=== PATIENT | male | born 1970 | race Native Hawaiian/Other Pacific Islander ===

== ENCOUNTER 2017-10-24 21:26 | Emergency (ER) | payer MEDICAID, OTHER ==
[~2017-10-24] VITALS: Ht 185.4 cm; Wt 93.4 kg
[2017-10-24] MEDS ORDERED: RT-ALBUTEROL/IPRATROPIUM 3 ML (DUONEB) VIAL ONE ×2 (21:29→21:39)
[2017-10-24] MEDS ORDERED: DEXAMETHASONE 4 MG/ML SDV (DECADRON) ONE (21:29)
[2017-10-24] MEDS ORDERED: methylPREDNISolone 125 MG (Solu-MEDROL) VIAL IV STA (21:41)
[2017-10-24] MEDS ORDERED: FUROSEMIDE 40 MG/4 ML INJ (LASIX) IVP ONE (21:45)
[2017-10-24] MEDS ORDERED: DEXAMETHASONE 4 MG/ML SDV (DECADRON) IH ONE (21:45)
[2017-10-24] MEDS ORDERED: NITROGLYCERIN 2% OINT 1 GM UNIT DOSE PACKET TOP ONE (21:45)
[2017-10-24] MEDS ORDERED: RT-ALBUTEROL/IPRATROPIUM 3 ML (DUONEB) VIAL INH ONE (21:45)
[2017-10-24 21:52] LABS: BASOPHILS # (AUTO) 0.1 10^3/uL (0.0-0.1); BASOPHILS % (AUTO) 1 % (0-10); EOSINOPHILS # (AUTO) 0.6 10^3/uL (0.0-0.3); EOSINOPHILS % (AUTO) 6 % (0-10); HEMATOCRIT 36 % (40-54); HEMOGLOBIN 12.2 G/DL (13.3-17.7); LYMPHOCYTES # (AUTO) 1.1 X 10^3 (1.0-4.0); LYMPHOCYTES % (AUTO) 11 % (12-44); MEAN CORPUSCULAR HEMOGLOBIN 30 PG (25-34); MEAN CORPUSCULAR HGB CONC 34 G/DL (32-36); MEAN CORPUSCULAR VOLUME 90 FL (80-99); MONOCYTES # (AUTO) 2.3 X 10^3 (0.0-1.0); MONOCYTES % (AUTO) 23 % (0-12); NEUTROPHILS % (AUTO) 60 % (42-75); PLATELET COUNT 166 10^3/uL (130-400); RED BLOOD COUNT 4.03 10^6/uL (4.35-5.85); RED CELL DISTRIBUTION WIDTH 17.7 % (10.0-14.5); WHITE BLOOD COUNT 9.9 10^3/uL (4.3-11.0)
[2017-10-24 21:55] LABS: INR 0.9 (0.8-1.4); PROTHROMBIN TIME PATIENT 11.9 SEC (12.2-14.7)
[2017-10-24 22:09] LABS: ALANINE AMINOTRANSFERASE 117 U/L (0-55); ALKALINE PHOSPHATASE 132 U/L (40-136); BILIRUBIN,TOTAL 1.4 MG/DL (0.1-1.0); BUN/CREATININE RATIO 14; CALCIUM 8.4 MG/DL (8.5-10.1); CARBON DIOXIDE 17 MMOL/L (21-32); CHLORIDE 105 MMOL/L (98-107); CREATINE KINASE 33 U/L (30-200); CREATININE SERUM 1.11 MG/DL (0.60-1.30); GFR ESTIMATED > 60; GLUCOSE 107 MG/DL (70-105); MAGNESIUM 1.9 MG/DL (1.8-2.4); POTASSIUM 4.7 MMOL/L (3.6-5.0); SODIUM 135 MMOL/L (135-145); TOTAL PROTEIN 6.6 GM/DL (6.4-8.2)
[2017-10-24 22:11] LABS: ANISOCYTOSIS SLIGHT; BAND NEUTROPHILS 0 %; BASOPHILS % (MANUAL) 0 %; EOSINOPHILS % (MANUAL) 2 %; LYMPHOCYTES % (MANUAL) 15 %; MONOCYTES % (MANUAL) 7 %; NEUTROPHILS % (MANUAL) 76 %
[2017-10-24] MEDS ORDERED: KETOROLAC 30 MG/ML VIAL ONE (22:14)
[2017-10-24 22:20] LABS: ABG BASE EXCESS -2.4 MMOL/L (-2.5-2.5); ABG OXYGEN SATURATION 98 % (94-100); ABG PCO2 32 MMHG (35-45); ABG PH 7.44 (7.37-7.43); ABG PO2 96 MMHG (79-93); ABG TCO2 21.9 MMOL/L (21.0-31.0); ALLENS TEST YES-POS; INSPIRED O2 6L
[2017-10-24 22:21] LABS: PATIENT TEMP 99.9; VENTILATOR NO
[2017-10-24 22:23] LABS: CREATINE KINASE MB 0.8 NG/ML (<6.6); TSH (THYROID ANALYZER) 5.91 UIU/ML (0.35-4.94)
[2017-10-24 23:03] LABS: FREE T4 (FREE THYROXINE) 0.83 NG/DL (0.70-1.48)
[2017-10-24] MEDS ORDERED: NS (IVPB) 50 ML ONE (23:28)
[2017-10-24] MEDS ORDERED: CEFEPIME HCL 2 GM (MAXIPIME) VIAL ONE (23:29)
[2017-10-24] MEDS ORDERED: CEFEPIME INJECTION 2,000 MG in NS (IVPB) 50 ML IV ONE (23:30)
[2017-10-25 00:02] LABS: BILIRUBIN,URINE NEGATIVE (NEGATIVE); CLARITY,URINE CLEAR; COLOR,URINE YELLOW; GLUCOSE, URINE (UA) NEGATIVE (NEGATIVE); KETONES,URINE NEGATIVE (NEGATIVE); LEUKOCYTE ESTERASE ,URINE NEGATIVE (NEGATIVE); NITRITE,URINE NEGATIVE (NEGATIVE); PH,URINE 7 (5-9); PROTEIN,URINE NEGATIVE (NEGATIVE); UROBILINOGEN,URINE 1 MG/DL (NORMAL)
[2017-10-25 00:13] LABS: BACTERIA,URINE NEGATIVE /HPF; SQUAMOUS EPITHELIAL CELL,UR 0-2 /HPF
[2017-10-25 00:14] LABS: AMPHETAMINE SCREEN, URINE NEGATIVE (NEGATIVE); BARBITURATE SCREEN URINE NEGATIVE (NEGATIVE); BENZODIAZEPINES SCREEN URINE NEGATIVE (NEGATIVE); CANNABINOID SCREEN, URINE NEGATIVE (NEGATIVE); COCAINE SCREEN URINE NEGATIVE (NEGATIVE); METHADONE STAT NEGATIVE (NEGATIVE); METHAMPHETAMINE SCREEN URINE S NEGATIVE (NEGATIVE); OPIATE SCREEN URINE NEGATIVE (NEGATIVE); OXYCODONE STAT POSITIVE (NEGATIVE); PROPOXYPHENE STAT NEGATIVE (NEGATIVE); TRICYCLIC ANTIDEPRESSANTS SCRE NEGATIVE (NEGATIVE)
[2017-10-25] MEDS ORDERED: VANCOMYCIN INJECTION 1,000 MG in NS (IVPB) 250 ML IV ONE (00:30)
[2017-10-25] MEDS ORDERED: RT-ALBUTEROL/IPRATROPIUM 3 ML (DUONEB) VIAL INH ONE ×2 (04:30→08:45)
[2017-10-25] MEDS ORDERED: methylPREDNISolone 125 MG (Solu-MEDROL) VIAL IVP ONE (04:45)
--- NOTE | 2017-10-25 05:30 | Diagnostic Imaging Report ---
INDICATION: CHF. Shortness of air. COMPARISON: 10/16/2017 FINDINGS: Single frontal radiographic view of the chest was obtained. Lungs show low inspiratory volumes with bibasilar patchy airspace disease. There is no large effusion or pneumothorax. Cardiac silhouette is moderately enlarged. This may be accentuated portable technique and shallow inspirations. Pulmonary vasculature is within normal limits. Bony structures show no acute abnormalities. IMPRESSION: 1. Low lung volumes with probable bibasilar atelectasis. 2. Cardiomegaly. Dictated by: Dictated on workstation # [id number]
[2017-10-25] MEDS ORDERED: FUROSEMIDE 40 MG/4 ML INJ (LASIX) IVP ONE (05:45)
[2017-10-25] MEDS ORDERED: amLODIPine 10 MG (NORVASC) TAB PO ONE (08:45)
[2017-10-25] MEDS ORDERED: lisINopril 5 MG (PRINIVIL) TABLET PO ONE (08:45)
[2017-10-25] MEDS ORDERED: CLOPIDOGREL 75 MG (PLAVIX) TABLET PO ONE (08:45)
[2017-10-25] MEDS ORDERED: CARVEDILOL 6.25 MG (COREG) TAB PO ONE (08:45)
[2017-10-25] MEDS ORDERED: amLODIPine 5 MG (NORVASC) TAB ONE (08:48)
[2017-10-25 09:10] VITALS: BP 142/105
== END 2017-10-25 09:10 | disposition short-term general hospital (02) ==
LOC: ER 21:28
DX: R06.02 Shortness of breath (principal); F17.210 Nicotine dependence, cigarettes, uncomplicated
CPT/HCPCS: 36415; 51702; 71045; 80053; 80306; 80320; 81000; 82550; 82553; 82805; 83605; 83735; 83880; 84439; 84443; 84484; 85007; 85027; 85610; 85730; 87040; 87804; 93005; 93041; 94640; 96365; 96367; 96375; 96376

== ENCOUNTER 2017-10-30 20:48 | Emergency (ER) | payer MEDICAID ==
[~2017-10-30] VITALS: Ht 185.4 cm; Wt 93.4 kg
--- OUTSIDE RECORDS SUMMARY | 2017-10-30 21:14 | XMS REPORT | Continuity of Care Document ---
Author Author [facility] (formerly [facility])[3] Organization [facility] (formerly [facility])[3] Address Unknown Phone Unavailable Allergies Active Description Code Type Severity Reaction Onset Reported/Identified Relationship to Patient Clinical Status Yes aspirin aspirin Drug Allergy Mild VOMITING 12/29/2011 Yes aspirin Drug Allergy N/A Adverse Reaction 01/20/2014 Yes aspirin NKMA N/A N /A 04/24/2015 Yes penicillin NKMA N/A [id number] 04/24/2015 Yes PLASTIC PLASTIC Drug Allergy Mild 04/27/2016 Yes Chantix NKMA N/A N /A 12/14/2016 Yes Truvada NKMA N/A N /A 12/14/2016 Yes ANTIVIRAL ANTIVIRAL Drug Allergy Unknown UNKNOWN 10/12/2017 Yes aspirin NKMA N/A R11.1 10/18/2017 Medications Medication Packaging Start Date Stop Date Route Dosage Sig albuterol(albuterol) 06/25/2015 11/10/2016 0 Refill( s) clindamycin(clindamycin) 201411/10/2016 0 Refill(s) sulfamethoxazole-trimethoprim(Bactrim) tabs 06/25/2015 11/10/2016 Oral tabs, Oral, BID, 0 Refill(s) tenofovir(Viread) 06/25/2015 11/10/2016 Oral mg mg, Oral, Daily, 0 Refill(s) dapsone(dapsone) 06/25/2015 11/10/2016 Oral Oral, Daily, 0 Refill(s) dolutegravir/abacavir/lamiVUDine(Triumeq) tabs 06/25/2015 11/10/2016 Oral tabs, Oral, Daily, 0 Refill(s) oxycodone-acetaminophen(Percocet 10/325 oral tablet) 1 tabs 06/25/2015 11/10/2016 Oral 1 tabs, Oral, q6hr, PRN: as needed for pain, 10 tabs, 0 Refill(s) methylPREDNISolone(Solu-MEDROL) 2 mL 06/25/2015 06/25/2015 IV Push 125 mg 125 mg=2 mL, IV Push, Once predniSONE(predniSONE) 3 tabs 06/2506/25/2015 Oral 60 mg 60 mg=3 tabs, Oral, Once albuterol(albuterol 5 mg/mL (0.5%) inhalation solution) 1.5 mL 06/25/2015 06/25/2015 NEB 7.5 mg 7.5 mg=1.5 mL, NEB, Once predniSONE(predniSONE 20 mg oral tablet) 2 tabs 06/25/2015 06/28/2015 Oral 40 mg 40 mg=2 tabs, Oral, Daily, for 3 days, 6 tabs, 0 Refill(s) predniSONE(predniSONE 20 mg oral tablet) 3 tabs 03/14/2016 03/17/2016 Oral 60 mg 60 mg=3 tabs, Oral, Daily, for 3 days, then 2 tabs daily x3 days; then 1 tab daily x3 days; then 1/2 tab daily x 2 days Dispense # 19, 19 tabs, 0 Refill(s) ondansetron(Zofran) 2 mL 201611/10/2016 IV Push 4 mg 4 mg=2 mL, IV Push, q30min, PRN: Nausea or Vomiting albuterol(Ventolin HFA 90 mcg/inh inhalation aerosol) 2 puffs 11/10/2016 11/27/2016 Inhalation 2 puffs, Inhalation, QID, 0 Refill(s) cloNIDine(Catapres) 2 tabs 201611/10/2016 Oral 0.2 mg 0.2 mg=2 tabs, Oral, Once predniSONE(predniSONE 10 mg oral tablet) 8 tabs 11/10/2016 Oral 80 mg 80 mg=8 tabs, Oral, Daily, Taper 80mg x1 day, 70mgx1 day, 60 mg x 1 day, 50mg x 1 day, 40 mg x 1 day, 30mg x 1 day, 20 mg x 1 day, 10mg x 1 day- started 11/03, 0 Refill(s) azithromycin(azithromycin 250 mg oral tablet) 1 tabs 11/10/2016 Oral 250 mg 250 mg=1 tabs, Oral, Daily, x 4 days, started 11/04/16, 0 Refill(s) albuterol(albuterol 2.5 mg/3 mL (0.083%) inhalation solution) 3 mL 11/10/2016 11/27/2016 NEB 2.5 mg 2.5 mg=3 mL, NEB, TID, 0 Refill(s) lisinopril(lisinopril 10 mg oral tablet) 1 tabs 11/10/2016 Oral 10 mg 10 mg=1 tabs, Oral, Daily, 0 Refill(s) fluconazole(Diflucan 100 mg oral tablet) 1 tabs 11/10/2016 Oral 100 mg 100 mg=1 tabs, Oral, Daily, 0 Refill(s) fluticasone-vilanterol(Breo Ellipta 100 mcg-25 mcg/inh inhalation powder) 1 puffs 11/10/2016 Inhalation 1 puffs, Inhalation, Daily, 30 Each, 0 Refill(s) ondansetron(Zofran) 2 mL 2016 IV Push 4 mg 4 mg =2 mL, IV Push, q6hr, PRN: Nausea Al hydroxide/Mg hydroxide/simethicone(Maalox Advanced Maximum Strength oral suspension) 30 mL 11/10/2016 Oral 30 mL, Oral, q6hr, PRN: GERD/Heartburn polyethylene glycol 3350(MiraLax) 1 packets 11/10/2016 Oral 17 g 17 g=1 packets, Oral, Daily, PRN: Constipation calcium carbonate(Tums) 1 tabs Oral 500 mg 500 mg=1 tabs, Oral, q4hr, PRN: GERD/Heartburn acetaminophen(acetaminophen) 2 tabs 11/10/2016 Oral 650 mg 650 mg=2 tabs, Oral, q4hr, PRN: Other (See Comment) docusate-senna(Senokot S 50 mg-8.6 mg oral tablet) 1 tabs 11/10/2016 Oral 1 tabs, Oral, Daily, PRN: Constipation aspirin(aspirin) 4 tabs 11/10/2016 11/10/2016 Oral 324 mg 324 mg=4 tabs, Oral, Once predniSONE(predniSONE) 2 tabs 11/1011/10/2016 Oral 40 mg 40 mg=2 tabs, Oral, Daily atorvastatin(atorvastatin) 1 tabs 11/10/2016 Oral 20 mg 20 mg=1 tabs, Oral, Daily lisinopril(lisinopril) 1 tabs 11/1011/14/2016 Oral 20 mg 20 mg=1 tabs, Oral, Daily azithromycin(azithromycin) 1 tabs 11/10/2016 11/15/2016 Oral 250 mg 250 mg=1 tabs, Oral, Daily carvedilol(Coreg) 1 tabs 201611/10/2016 Oral 12.5 mg 12.5 mg=1 tabs, Oral, BID gabapentin(gabapentin) 2 caps 11/10 Oral 200 mg 200 mg=2 caps, Oral, TID acetaminophen(Tylenol range dose) 2 tabs 11/10/2016 11/10/2016 Oral 650 mg 650 mg=2 tabs, Oral, q4hr, PRN: Pain Mild (1-3) labetalol(labetalol) 2 mL 201611/14/2016 IV Push 10 mg 10 mg=2 mL, IV Push, q1hr, PRN: Hypertension/High Blood Pressure aspirin(aspirin) 1 tabs 11/10/2016 11/11/2016 Oral 81 mg Canceled LORazepam(Ativan) 0.5 mL 201611/13/2016 IV Push 1 mg 1 mg=0.5 mL, IV Push, q2hr, PRN: Anxiety fluticasone-salmeterol(Advair HFA 115 mcg-21 mcg/inh inhalation aerosol) 2 puffs 11/10/20162016 Inhalation 2 puffs, Inhalation, BID ipratropium-albuterol(DuoNeb 0.5 mg-2.5 mg/3 mL inhalation solution ) 3 mL 11/10/2016 11/10/2016 NEB 3 mL, NEB, q2hr (scheduled), PRN: Bronchospasms arformoterol(Brovana) 2 mL 2016 NEB 15 mcg 15 mcg =2 mL, NEB, BID budesonide(budesonide 0.5 mg/2 mL inhalation suspension) 2 mL 11/10/2016 NEB 0.5 mg 0.5 mg=2 mL, NEB, BID ipratropium-albuterol(DuoNeb 0.5 mg-2.5 mg/3 mL inhalation solution ) 3 mL 11/10/2016 NEB 3 mL, NEB, q2hr (scheduled), PRN: Bronchospasms hydrALAZINE(hydrALAZINE) 0.5 mL 09/2016 IV Push 10 mg 10 mg=0.5 mL, IV Push, q4hr, PRN: Hypertension/High Blood Pressure carvedilol(Coreg) 1 tabs 2016 Oral 25 mg Suspended nicotine(nicotine 7 mg/24 hr transdermal film, extended release) 1 patches 11/11/2016 TransDermal 1 patches, TransDermal, Daily lisinopril(lisinopril) 1 tabs 11/1111/11/2016 Oral 5 mg 5 mg=1 tabs, Oral, Once carvedilol(Coreg) 1 tabs 201611/11/2016 Oral 12.5 mg 12.5 mg=1 tabs, Oral, Once hydrALAZINE(hydrALAZINE) 1 tabs 09/2016 Oral 50 mg Suspended sertraline(Zoloft) 1 tabs 2016 Oral 50 mg 50 mg= 1 tabs, Oral, qAM QUEtiapine(SEROquel) 1 tabs 2016 Oral 25 mg 25 mg= 1 tabs, Oral, BID, PRN: Agitation lisinopril(lisinopril) 2 tabs 11/1411/15/2016 Oral 40 mg 40 mg=2 tabs, Oral, Daily lisinopril(lisinopril) 1 tabs 11/1411/14/2016 Oral 20 mg 20 mg=1 tabs, Oral, Once losartan(losartan) 2 tabs 201611/16/2016 Oral 100 mg 100 mg=2 tabs, Oral, Daily Sodium Chloride 0.9%(Sodium Chloride 0.9% Bolus) 500 mL 11/16/2016 11/16/2016 Bolus IV 500 mL, Bolus IV, Once lisinopril(lisinopril) 1 tabs 11/16 Oral 20 mg 20 mg =1 tabs, Oral, Daily lisinopril(lisinopril 20 mg oral tablet) 1 tabs 11/17/2016 11/18/2016 Oral 20 mg 20 mg=1 tabs, Oral, Daily, for 30 days, 30 tabs, 0 Refill(s) hydrALAZINE(hydrALAZINE 50 mg oral tablet) 1 tabs 11/17/2016 11/18/2016 Oral 50 mg 50 mg=1 tabs, Oral, TID, for 30 days, 90 tabs, 0 Refill(s) atorvastatin(atorvastatin 20 mg oral tablet) 1 tabs 11/17/2016 11/18/2016 Oral 20 mg 20 mg=1 tabs, Oral, Daily, for 30 days, 30 tabs, 0 Refill(s) gabapentin(gabapentin 100 mg oral capsule) 2 caps 11/17/2016 11/18/2016 Oral 200 mg 200 mg=2 caps, Oral, TID, for 30 days, 180 caps, 0 Refill(s) carvedilol(Coreg 25 mg oral tablet) 1 tabs 11/17/2016 11/18/2016 Oral 25 mg 25 mg=1 tabs, Oral, BIDWM, for 30 days, 60 tabs, 0 Refill(s) sertraline(Zoloft 50 mg oral tablet) 1 tabs 11/17/2016 11/18/2016 Oral 50 mg 50 mg=1 tabs, Oral, qAM, for 30 days, 30 tabs, 0 Refill(s) budesonide-formoterol(Symbicort 80 mcg-4.5 mcg/inh inhalation aerosol) 2 puffs 11/17/20162016 Inhalation 2 puffs, Inhalation, BID, for 30 days, 2 Each, 0 Refill(s) polyethylene glycol 3350(MiraLax oral powder for reconstitution) 11/17/2016 11/18/2016 Oral 17 g 17 g, Oral, Daily, for 30 days, dissolve in water before taking, 510 g, 0 Refill(s) ondansetron(Zofran) 2 mL 201611/18/2016 IV Push 4 mg 4 mg=2 mL, IV Push, q30min, PRN: Nausea or Vomiting ipratropium-albuterol(DuoNeb 0.5 mg-2.5 mg/3 mL inhalation solution ) 9 mL 11/18/2016 11/18/2016 NEB 9 mL, NEB, Once methylPREDNISolone(Solu-MEDROL) 2 mL 11/18/2016 11/18/2016 IV Push 125 mg 125 mg=2 mL, IV Push, Once sulfamethoxazole-trimethoprim(Bactrim DS 800 mg-160 mg oral tablet ) 1 tabs 11/18/2016 11/20/2016 Oral 1 tabs, Oral, Daily, 0 Refill(s) azithromycin(azithromycin) 201611/20/2016 Oral 250 mg 250 mg, Oral, Daily, 0 Refill(s) fluconazole(fluconazole) 201611/20/2016 Oral 100 mg 100 mg, Oral, Daily, 0 Refill(s) fluocinonide topical(fluocinonide 0.05% topical cream) 1 lianna 11/18/2016 11/20/2016 Topical 1 lianna, Topical, TID, 0 Refill(s) pregabalin(Lyrica) 11/18/2016 11/20/2016 Oral 100 mg 100 mg, Oral, BID, 0 Refill(s) hydrocortisone topical(hydrocortisone 2.5% topical cream) 1 lianna 11/18/2016 11/20/2016 Topical 1 lianna, Topical, BID, 0 Refill(s) lisinopril(lisinopril) 201611/27/2016 Oral 20 mg 20 mg, Oral, Daily, 0 Refill(s) tiZANidine(tiZANidine) 201611/20/2016 Oral 8 mg 8 mg, Oral, 4-8 mg as needed, 0 Refill(s) diclofenac topical(Voltaren 1% topical gel) 1 lianna 11/18/2016 11/20/2016 Topical 1 lianna, Topical, QID, 4-6 grams each area, 0 Refill(s) fluticasone-vilanterol(Breo Ellipta 100 mcg-25 mcg/inh inhalation powder) 1 puffs 11/18/20162016 Inhalation 1 puffs, Inhalation, Daily, 0 Refill(s) emtricitabine-tenofovir(Descovy 200 mg-25 mg oral tablet) 1 tabs 11/18/2016 11/20/2016 Oral 1 tabs, Oral, Daily, 0 Refill(s) darunavir-cobicistat(Prezcobix 800 mg-150 mg oral tablet) 1 tabs 11/18/2016 11/20/2016 Oral 1 tabs, Oral, Daily, with food, 0 Refill(s ) dolutegravir(Tivicay 50 mg oral tablet) 1 tabs 11/18/2016 11/20/2016 Oral 50 mg 50 mg=1 tabs, Oral, Daily, 0 Refill(s) ipratropium-albuterol(DuoNeb 0.5 mg-2.5 mg/3 mL inhalation solution ) 6 mL 11/19/2016 11/19/2016 NEB 6 mL, NEB, Once HYDROmorphone(Dilaudid) 1 mL 201611/19/2016 IV Push 1 mg 1 mg=1 mL, IV Push, Once ondansetron(Zofran) 2 mL 201611/20/2016 IV Push 4 mg 4 mg=2 mL, IV Push, q6hr, PRN: Nausea HYDROmorphone(HYDROmorphone) 0.2 mL 11/20/2016 11/20/2016 IV Push 0.2 mg 0.2 mg=0.2 mL, IV Push, q2hr, PRN: Pain Severe (7-10) traMADol(Ultram) 1 tabs 11/20/2016 11/20/2016 Oral 50 mg 50 mg=1 tabs, Oral, q6hr, PRN: Pain Moderate (4-6) acetaminophen(acetaminophen) 2 tabs 11/20/2016 11/20/2016 Oral 650 mg 650 mg=2 tabs, Oral, q4hr, PRN: Other (See Comment) ipratropium-albuterol(DuoNeb 0.5 mg-2.5 mg/3 mL inhalation solution ) 3 mL 11/20/2016 11/20/2016 NEB 3 mL, NEB, q2hr, PRN: Wheezing ipratropium-albuterol(DuoNeb 0.5 mg-2.5 mg/3 mL inhalation solution ) 3 mL 11/20/2016 11/20/2016 NEB 3 mL, NEB, TID labetalol(labetalol) 4 mL 201611/20/2016 IV Push 20 mg 20 mg=4 mL, IV Push, q4hr, PRN: Hypertension/High Blood Pressure hydrALAZINE(hydrALAZINE) 1 mL 11/2011/20/2016 IV Push 20 mg 20 mg=1 mL, IV Push, q4hr, PRN: Hypertension/High Blood Pressure lisinopril(lisinopril) 1 tabs 11/2011/20/2016 Oral 10 mg 10 mg=1 tabs, Oral, Daily atorvastatin(atorvastatin) 201611/27/2016 Oral 20 mg 20 mg, Oral, Daily, 0 Refill(s) budesonide-formoterol(Symbicort 80 mcg-4.5 mcg/inh inhalation aerosol) 2 puffs 11/20/20162016 Inhalation 2 puffs, Inhalation, BID, 0 Refill(s) budesonide-formoterol(Symbicort 80 mcg-4.5 mcg/inh inhalation aerosol) 2 puffs 11/20/2016 Inhalation 2 puffs, Inhalation, BID, 0 Refill(s) carvedilol(Coreg) 11/20/2016 11/27/2016 Oral 25 mg 25 mg , Oral, BIDWM, 0 Refill(s) hydrALAZINE(hydrALAZINE) 201611/27/2016 Oral 50 mg 50 mg, Oral, TID, 0 Refill(s) gabapentin(gabapentin 100 mg oral capsule) 2 caps 11/20/2016 11/27/2016 Oral 200 mg 200 mg=2 caps, Oral, TID, 0 Refill(s) polyethylene glycol 3350(MiraLax) 11/20/2016 11/27/2016 Oral 17 g 17 g, Oral, Daily, 0 Refill(s) sertraline(Zoloft 50 mg oral tablet) 1 tabs 11/20/2016 11/27/2016 Oral 50 mg 50 mg=1 tabs, Oral, qAM, 0 Refill(s) ondansetron(Zofran) 1 tabs 201611/27/2016 Oral 4 mg 4 mg=1 tabs, Oral, q6hr, PRN: Nausea polyethylene glycol 3350(MiraLax) 2 packets 11/20/2016 11/27/2016 Oral 34 g 34 g=2 packets, Oral, BID, PRN: Constipation traMADol(Ultram) 1 tabs 11/20/2016 11/27/2016 Oral 50 mg 50 mg=1 tabs, Oral, q6hr, PRN: Pain Moderate (4-6) acetaminophen(acetaminophen) 2 tabs 11/20/2016 11/27/2016 Oral 650 mg 650 mg=2 tabs, Oral, q4hr, PRN: Other (See Comment) atorvastatin(atorvastatin) 1 tabs 11/20/2016 11/27/2016 Oral 20 mg 20 mg=1 tabs, Oral, Daily sertraline(Zoloft) 1 tabs 201611/27/2016 Oral 50 mg 50 mg=1 tabs, Oral, qAM hydrALAZINE(hydrALAZINE) 1 tabs 06/201711/27/2016 Oral 50 mg 50 mg=1 tabs, Oral, TID lisinopril(lisinopril) 1 tabs 11/2011/27/2016 Oral 20 mg 20 mg=1 tabs, Oral, Daily polyethylene glycol 3350(MiraLax) 1 packets 11/20/2016 11/27/2016 Oral 17 g 17 g=1 packets, Oral, Daily gabapentin(gabapentin) 2 caps 11/2011/27/2016 Oral 200 mg 200 mg=2 caps, Oral, TID carvedilol(Coreg) 1 tabs 201611/27/2016 Oral 25 mg 25 mg=1 tabs, Oral, BIDWM ipratropium-albuterol(DuoNeb 0.5 mg-2.5 mg/3 mL inhalation solution ) 3 mL 11/20/2016 11/27/2016 NEB 3 mL, NEB, q2hr (scheduled), PRN: Bronchospasms albuterol(albuterol CFC free 90 mcg/inh inhalation aerosol) 2 puffs 11/20/2016 11/27/2016 Inhalation 180 mcg 180 mcg=2 puffs, Inhalation , q2hr (scheduled), PRN: Bronchospasms nicotine(nicotine 21 mg/24 hr transdermal film, extended release) 1 patches 11/21/2016 11/27/2016 TransDermal 1 patches, TransDermal, Daily fluconazole(fluconazole) 1 tabs 07/201711/27/2016 Oral 100 mg 100 mg=1 tabs, Oral, Daily azithromycin(azithromycin) 1 tabs 11/21/2016 11/27/2016 Oral 250 mg 250 mg=1 tabs, Oral, Daily emtricitabine-tenofovir(Descovy) 1 tabs 11/21/2016 11/27/2016 Oral 1 tabs, Oral, Daily darunavir-cobicistat(Prezcobix 800 mg-150 mg oral tablet) 1 tabs 11/21/2016 11/27/2016 Oral 1 tabs, Oral, Daily dolutegravir(dolutegravir) 1 tabs 11/21/2016 11/27/2016 Oral 50 mg 50 mg=1 tabs, Oral, Daily simethicone(Gas-X 80 mg oral tablet, chewable) 1 tabs 11/22/2016 11/27/2016 Oral 80 mg 80 mg=1 tabs, Oral, q6hr, PRN: Gas zolpidem(Ambien) 1 tabs 11/22/2016 11/27/2016 Oral 5 mg 5 mg=1 tabs, Oral, Bedtime (once a day), PRN: Sleep benzocaine topical(benzocaine 20% mucous membrane gel) 1 lianna 11/24/2016 11/24/2016 Topical 1 lianna, Topical, QID, PRN: Other (See Comment ) benzocaine topical(Orajel Baby 7.5% mucous membrane gel) 11/24/2016 11/27/2016 Topical apply small amount, Topical, QID, PRN: Pain Moderate (4-6) azithromycin(azithromycin 250 mg oral tablet) 1 tabs 11/27/2016 04/08/2017 Oral 250 mg 250 mg=1 tabs, Oral, Daily, 30 tabs, 0 Refill(s) acetaminophen(acetaminophen 325 mg oral tablet) 2 tabs 11/27/2016 04/08/2017 Oral 650 mg 650 mg=2 tabs, Oral, q4hr, PRN: Shortness of Breath/Wheezing, 0 Refill(s) benzocaine topical(Orajel Baby 7.5% mucous membrane gel) 11/27/2016 12/14/2016 Topical apply small amount, Topical, QID, PRN: Pain Moderate (4-6), 0 Refill(s) nicotine(nicotine 21 mg/24 hr transdermal film, extended release) 1 patches 11/27/2016 04/08/2017 TransDermal 1 patches, TransDermal, Daily, over the counter, 0 Refill(s) fluconazole(fluconazole 100 mg oral tablet) 1 tabs 11/27/2016 Oral 100 mg 100 mg=1 tabs, Oral, Daily, 30 tabs, 0 Refill(s) emtricitabine-tenofovir(Descovy) 1 tabs 11/27/2016 Oral 1 tabs, Oral, Daily, 0 Refill(s) darunavir-cobicistat(Prezcobix 800 mg-150 mg oral tablet) 1 tabs 11/27/2016 04/08/2017 Oral 1 tabs, Oral, Daily, 0 Refill(s) dolutegravir(dolutegravir 50 mg oral tablet) 1 tabs 11/27/2016 Oral 50 mg 50 mg=1 tabs, Oral, Daily, 0 Refill(s) polyethylene glycol 3350(MiraLax) 1 packets 11/27/2016 04/08/2017 Oral 17 g 17 g=1 packets, Oral, Daily, over the counter, 0 Refill(s) simethicone(Gas-X 80 mg oral tablet, chewable) 1 tabs 11/27/2016 04/08/2017 Oral 80 mg 80 mg=1 tabs, Oral, q6hr, PRN: Gas, 0 Refill(s) sertraline(Zoloft 50 mg oral tablet) 1 tabs 11/27/2016 04/15/2017 Oral 50 mg 50 mg=1 tabs, Oral, qAM, 30 tabs, 0 Refill(s) hydrALAZINE(hydrALAZINE 50 mg oral tablet) 11/27/2016 12/17/2016 Oral 50 mg 50 mg, Oral, TID, 90 tabs, 0 Refill(s) lisinopril(lisinopril 20 mg oral tablet) 11/27/2016 Oral 20 mg 20 mg, Oral, Daily, 30 tabs, 0 Refill(s) gabapentin(gabapentin 100 mg oral capsule) 2 caps 11/27/2016 04/08/2017 Oral 200 mg 200 mg=2 caps, Oral, TID, 180 caps, 0 Refill(s) carvedilol(Coreg 25 mg oral tablet) 11/27/2016 Oral 25 mg 25 mg, Oral, BIDWM, 60 tabs, 0 Refill(s) atorvastatin(atorvastatin 20 mg oral tablet) 11/27/2016 04/08/2017 Oral 20 mg 20 mg, Oral, Daily, 30 tabs, 0 Refill(s) albuterol(Ventolin HFA 90 mcg/inh inhalation aerosol) 2 puffs 11/27/2016 Inhalation 2 puffs, Inhalation, QID, PRN: as needed for wheezing, 1 Each, 0 Refill(s) budesonide-formoterol(Symbicort 80 mcg-4.5 mcg/inh inhalation aerosol) 2 puffs 11/27/20162016 Inhalation 2 puffs, Inhalation, BID, 1 Each, 0 Refill(s) insulin regular(insulin regular 100 units/mL human recombinant injectable solution) 0.1 mL 12/14/2016 12/14/2016 IV Push 10 units 10 units=0.1 mL, IV Push, Once sodium bicarbonate(sodium bicarbonate 8.4% intravenous solution) 50 mL 12/14/2016 12/14/2016 IV Push 50 mEq 50 mEq=50 mL, IV Push, Once calcium gluconate(calcium gluconate) 10 mL 12/14/2016 12/14/2016 IV Push 1,000 mg 1,000 mg=10 mL, IV Push, Once Dextrose 50% in Water(Dextrose 50% in Water Injection) 50 mL 12/14/2016 12/14/2016 IV Push 25 g 25 g=50 mL, IV Push, Once HYDROmorphone(Dilaudid) 0.5 mL 11/201612/14/2016 IV Push 0.5 mg 0.5 mg=0.5 mL, IV Push, Once nalOXone(Narcan) 1 mL 12/14/2016 12/17/2016 IV Push 0.4 mg 0.4 mg=1 mL, IV Push, Daily, PRN: Opiate Reversal morphine(morphine) 0.5 mL 201612/17/2016 IV Push 1 mg 1 mg=0.5 mL, IV Push, q2hr, PRN: Pain Severe (7-10) ondansetron(Zofran) 2 mL 201612/17/2016 IV Push 4 mg 4 mg=2 mL, IV Push, q6hr, PRN: Nausea glucose(glucose) 12/14/2016 12/17/2016 Oral 15 g 15 g, Oral, q1hr, PRN: Hypoglycemia/Low Blood Sugar glucagon(glucagon) 1 mL 12/14/2016 12/17/2016 IntraMuscular 1 mg 1 mg=1 mL, IntraMuscular, As Indicated, PRN: Hypoglycemia/Low Blood Sugar calcium carbonate(Tums) 2 tabs 11/201612/17/2016 Oral 1,000 mg 1,000 mg=2 tabs, Oral, q4hr, PRN: GERD/Heartburn Sodium Chloride 0.9%(Sodium Chloride 0.9% 1,000 mL) 1,000 mL 12/14/2016 12/15/2016 IV 100 mL/hr, IV Dextrose 50% in Water(Dextrose 50% in Water Injection) 25 mL 12/14/2016 12/17/2016 IV Push 12.5 g 12.5 g=25 mL, IV Push, q15min, PRN: Hypoglycemia/Low Blood Sugar Dextrose 10% in Water(Dextrose 10% in Water 250 mL) 250 mL 12/14/2016 12/16/2016 IV 50 mL/hr, IV acetaminophen(acetaminophen) 2 tabs 12/14/2016 12/17/2016 Oral 650 mg 650 mg=2 tabs, Oral, q4hr, PRN: Other (See Comment) atorvastatin(atorvastatin) 1 tabs 12/14/2016 12/17/2016 Oral 20 mg 20 mg=1 tabs, Oral, Daily fluconazole(fluconazole) 1 tabs 11/201612/17/2016 Oral 100 mg 100 mg=1 tabs, Oral, Daily gabapentin(gabapentin) 2 caps 12/1412/17/2016 Oral 200 mg 200 mg=2 caps, Oral, TID carvedilol(Coreg) 1 tabs 201612/17/2016 Oral 25 mg 25 mg=1 tabs, Oral, BIDWM nicotine(nicotine 21 mg/24 hr transdermal film, extended release) 1 patches 12/14/2016 12/17/2016 TransDermal 1 patches, TransDermal, Daily azithromycin(azithromycin) 1 tabs 12/14/2016 12/17/2016 Oral 250 mg 250 mg=1 tabs, Oral, Daily emtricitabine-tenofovir(Descovy) 1 tabs 12/14/2016 12/17/2016 Oral 1 tabs, Oral, Daily darunavir-cobicistat(Prezcobix 800 mg-150 mg oral tablet) 1 tabs 12/14/2016 12/17/2016 Oral 1 tabs, Oral, Daily dolutegravir(dolutegravir) 1 tabs 12/14/2016 12/17/2016 Oral 50 mg 50 mg=1 tabs, Oral, Daily sertraline(Zoloft) 1 tabs 201612/17/2016 Oral 50 mg 50 mg=1 tabs, Oral, qAM albuterol(albuterol CFC free 90 mcg/inh inhalation aerosol) 2 puffs 12/14/2016 12/14/2016 Inhalation 180 mcg 180 mcg=2 puffs, Inhalation , q4hr, PRN: Bronchospasms simethicone(Gas-X 80 mg oral tablet, chewable) 1 tabs 12/14/2016 12/17/2016 Oral 80 mg 80 mg=1 tabs, Oral, q6hr, PRN: Gas sulfamethoxazole-trimethoprim(Bactrim DS 800 mg-160 mg oral tablet ) 1 tabs 12/14/2016 12/15/2016 Oral 1 tabs, Oral, Daily fluticasone-salmeterol(Advair HFA 45 mcg-21 mcg/inh inhalation aerosol) 2 puffs 12/14/20162016 Inhalation 2 puffs, Inhalation, BID furosemide(Lasix) 4 mL 12/14/2016 12/15/2016 IV Push 40 mg 40 mg=4 mL, IV Push, q12hr ondansetron(Zofran) 2 mL 201612/15/2016 IV Push 4 mg 4 mg=2 mL, IV Push, Once acetaminophen(Tylenol range dose) 2 tabs 12/15/2016 12/15/2016 Oral 1,000 mg 1,000 mg=2 tabs, Oral, Once, PRN: Pain Mild (1-3) pantoprazole(Protonix) 1 tabs 12/1512/17/2016 Oral 40 mg 40 mg=1 tabs, Oral, Before Breakfast insulin regular(insulin regular 100 units/mL human recombinant injectable solution) 0.1 mL 12/15/2016 12/15/2016 IV Push 10 units 10 units=0.1 mL, IV Push, Once sodium bicarbonate(sodium bicarbonate 8.4% intravenous solution) 50 mL 12/15/2016 12/15/2016 IV Push 50 mEq 50 mEq=50 mL, IV Push, Once Dextrose 50% in Water(Dextrose 50% in Water Injection) 50 mL 12/15/2016 12/15/2016 IV Push 25 g 25 g=50 mL, IV Push, Once furosemide(furosemide 10 mg/mL injectable solution) 4 mL 12/15/2016 12/15/2016 IV Push 40 mg 40 mg=4 mL, IV Push, Once insulin regular(insulin regular 100 units/mL human recombinant injectable solution) 0.1 mL 12/15/2016 12/15/2016 IV Push 10 units 10 units=0.1 mL, IV Push, Once Dextrose 50% in Water(Dextrose 50% in Water Injection) 50 mL 12/15/2016 12/15/2016 IV Push 25 g 25 g=50 mL, IV Push, Once sodium bicarbonate(sodium bicarbonate 8.4% intravenous solution) 50 mL 12/15/2016 12/15/2016 IV Push 50 mEq 50 mEq=50 mL, IV Push, Once sodium polystyrene sulfonate(Kayexalate) 60 mL 12/15/2016 12/15/2016 Oral 15 g 15 g=60 mL, Oral, Once insulin regular(insulin regular 100 units/mL human recombinant injectable solution) 0.1 mL 12/15/2016 12/15/2016 IV Push 10 units 10 units=0.1 mL, IV Push, Once sodium bicarbonate(sodium bicarbonate 8.4% intravenous solution) 50 mL 12/15/2016 12/15/2016 IV Push 50 mEq 50 mEq=50 mL, IV Push, Once Dextrose 50% in Water(Dextrose 50% in Water Injection) 50 mL 12/15/2016 12/15/2016 IV Push 25 g 25 g=50 mL, IV Push, Once sodium polystyrene sulfonate(sodium polystyrene sulfonate) 120 mL 12/15/2016 12/15/2016 Oral 30 g 30 g=120 mL, Oral, Once sterile water(sterile water diluent intravenous solution 850 mL + sodium bicarbonate IV additive 150 mEq) 850 mL 12/15/2016 12/16/2016 IV 100 mL/hr, IV furosemide(furosemide 10 mg/mL injectable solution) 4 mL 12/15/2016 12/15/2016 IV Push 40 mg 40 mg=4 mL, IV Push, Once insulin regular(insulin regular 100 units/mL human recombinant injectable solution) 0.1 mL 12/15/2016 12/15/2016 IV Push 10 units 10 units=0.1 mL, IV Push, Once sodium bicarbonate(sodium bicarbonate 8.4% intravenous solution) 50 mL 12/15/2016 12/15/2016 IV Push 50 mEq 50 mEq=50 mL, IV Push, Once Dextrose 50% in Water(Dextrose 50% in Water Injection) 50 mL 12/15/2016 12/15/2016 IV Push 25 g 25 g=50 mL, IV Push, Once magnesium sulfate(magnesium sulfate) 50 mL 12/16/2016 12/16/2016 IV Piggyback 2 g 2 g=50 mL, 25 mL/hr, IV Piggyback, Once amLODIPine(Norvasc) 1 tabs 201612/16/2016 Oral 5 mg 5 mg=1 tabs, Oral, Once amLODIPine(Norvasc) 1 tabs 201612/16/2016 Oral 5 mg 5 mg=1 tabs, Oral, Daily sodium bicarbonate(sodium bicarbonate 650 mg oral tablet) 1 tabs 12/16/2016 12/17/2016 Oral 650 mg 650 mg=1 tabs, Oral, BID dapsone(dapsone) 1 tabs 12/16/2016 12/17/2016 Oral 100 mg 100 mg=1 tabs, Oral, Daily docusate(Colace) 5 caps 12/16/2016 12/17/2016 Oral 250 mg 250 mg=5 caps, Oral, BID, PRN: Constipation polyethylene glycol 3350(MiraLax) 1 packets 12/16/2016 12/17/2016 Oral 17 g 17 g=1 packets, Oral, Daily, PRN: Constipation lisinopril(lisinopril) 1 tabs 12/1712/17/2016 Oral 20 mg 20 mg=1 tabs, Oral, Daily cloNIDine(cloNIDine) 5 tabs 201612/17/2016 Oral 0.5 mg 0.5 mg=5 tabs, Oral, Once dapsone(dapsone 100 mg oral tablet) 1 tabs 12/17/2016 04/08/2017 Oral 100 mg 100 mg=1 tabs, Oral, Daily, 7 tabs, 0 Refill(s) amLODIPine(Norvasc) 1 tabs 201612/17/2016 Oral 5 mg 5 mg=1 tabs, Oral, Daily amLODIPine(Norvasc 5 mg oral tablet) 1 tabs 12/17/2016 04/08/2017 Oral 5 mg 5 mg=1 tabs, Oral, Daily, 30 tabs, 0 Refill(s) pantoprazole(Protonix 40 mg oral delayed release tablet) 1 tabs 12/17/2016 04/08/2017 Oral 40 mg 40 mg=1 tabs, Oral, Before Breakfast, 30 tabs, 0 Refill(s) sodium bicarbonate(sodium bicarbonate 650 mg oral tablet) 1 tabs 12/17/2016 01/16/2017 Oral 650 mg 650 mg=1 tabs, Oral, BID, 50 tabs, 0 Refill(s) ondansetron(Zofran) 2 mL 201612/20/2016 IV Push 4 mg 4 mg=2 mL, IV Push, q30min, PRN: Nausea or Vomiting cephalexin(cephalexin 500 mg oral tablet) 1 tabs 12/19/2016 12/26/2016 Oral 500 mg 500 mg=1 tabs, Oral, q8hr, for 7 days, 21 tabs, 0 Refill(s) ondansetron(Zofran) 2 mL 201604/03/2017 IV Push 4 mg 4 mg=2 mL, IV Push, q30min, PRN: Nausea or Vomiting albuterol(albuterol 5 mg/mL (0.5%) inhalation solution) 1.5 mL 04/03/2017 04/03/2017 NEB 7.5 mg 7.5 mg=1.5 mL, NEB, Once methylPREDNISolone(Solu-MEDROL) 2 mL 04/03/2017 04/03/2017 IV Push 125 mg 125 mg=2 mL, IV Push, Once albuterol(albuterol 5 mg/mL (0.5%) inhalation solution) 1.5 mL 04/03/2017 04/03/2017 NEB 7.5 mg 7.5 mg=1.5 mL, NEB, Once ondansetron(Zofran) 2 mL 201604/09/2017 IV Push 4 mg 4 mg=2 mL, IV Push, q30min, PRN: Nausea or Vomiting nitroglycerin(nitroglycerin 0.4 mg sublingual tablet) 1 tabs 04/08/2017 04/08/2017 SubLingual 0.4 mg 0.4 mg=1 tabs, SubLingual, q5min, PRN: Angina/Chest Pain gabapentin(gabapentin 300 mg oral capsule) 1 caps 04/08/2017 04/15/2017 Oral 300 mg 300 mg=1 caps, Oral, TID, 270 caps, 0 Refill(s) fluticasone-vilanterol(Breo Ellipta 100 mcg-25 mcg/inh inhalation powder) 1 puffs 04/08/2017 Inhalation 1 puffs, Inhalation, Daily, 30 Each, 0 Refill(s) ondansetron(Zofran) 2 mL 201604/15/2017 IV Push 4 mg 4 mg=2 mL, IV Push, q6hr, PRN: Nausea heparin(heparin) 1 mL 04/08/2017 04/15/2017 SubCutaneous 5,000 units 5,000 units=1 mL, SubCutaneous, TID albuterol(albuterol 5 mg/mL (0.5%) inhalation solution) 0.5 mL 04/08/2017 04/08/2017 NEB 2.5 mg 2.5 mg=0.5 mL, NEB, Once carvedilol(Coreg) 1 tabs 201604/15/2017 Oral 25 mg 25 mg=1 tabs, Oral, BIDWM dolutegravir(dolutegravir) 1 tabs 04/08/2017 04/15/2017 Oral 50 mg 50 mg=1 tabs, Oral, Daily gabapentin(gabapentin) 1 caps 04/0804/15/2017 Oral 400 mg 400 mg=1 caps, Oral, TID pantoprazole(pantoprazole) 1 tabs 04/08/2017 04/14/2017 Oral 40 mg 40 mg=1 tabs, Oral, Before Breakfast nicotine(nicotine 7 mg/24 hr transdermal film, extended release) 1 patches 04/08/2017 04/11/2017 TransDermal 1 patches, TransDermal, Daily sertraline(Zoloft) 1 tabs 201604/15/2017 Oral 50 mg 50 mg=1 tabs, Oral, qAM fluticasone-salmeterol(Advair HFA 115 mcg-21 mcg/inh inhalation aerosol) 2 puffs 04/08/20172016 Inhalation 2 puffs, Inhalation, BID ipratropium-albuterol(DuoNeb 0.5 mg-2.5 mg/3 mL inhalation solution ) 3 mL 04/08/2017 04/08/2017 NEB 3 mL, NEB, q2hr (scheduled), PRN: Bronchospasms lidocaine topical(lidocaine 5% topical film) 1 patches 04/09/2017 04/15/2017 TransDermal 1 patches, TransDermal, Daily miconazole topical(miconazole 2% topical powder) 1 lianna 04/09/2017 04/15/2017 Topical 1 lianna, Topical, BID tiZANidine(tiZANidine) 3 tabs 04/0904/11/2017 Oral 6 mg 6 mg=3 tabs, Oral, TID, PRN: Muscle Spasm oxycodone-acetaminophen(Percocet 5/325 oral tablet) 1 tabs 04/09/2017 04/10/2017 Oral 1 tabs, Oral, q6hr, PRN: Pain Moderate (4-6) darunavir-cobicistat(Prezcobix 800 mg-150 mg oral tablet) 1 tabs 04/10/2017 04/15/2017 Oral 1 tabs, Oral, Daily oxyCODONE(oxyCODONE) 5 mL 201604/15/2017 Oral 5 mg 5 mg=5 mL, Oral, qPM DULoxetine(Cymbalta) 1 caps 201604/15/2017 Oral 60 mg 60 mg=1 caps, Oral, Daily tiZANidine(tiZANidine) 3 tabs 04/1004/15/2017 Oral 6 mg 6 mg=3 tabs, Oral, TID oxycodone-acetaminophen(Percocet 5/325 oral tablet) 1 tabs 04/10/2017 04/15/2017 Oral 1 tabs, Oral, q6hr, PRN: Pain Moderate (4-6) ketorolac(Toradol) 1 mL 04/10/2017 04/14/2017 IV Push 30 mg 30 mg=1 mL, IV Push, q8hr, PRN: Pain nicotine(nicotine 21 mg/24 hr transdermal film, extended release) 1 patches 04/11/2017 04/15/2017 TransDermal 1 patches, TransDermal, Daily polyethylene glycol 3350(MiraLax) 1 packets 04/11/2017 04/15/2017 Oral 17 g 17 g=1 packets, Oral, TID, PRN: Constipation ipratropium-albuterol(DuoNeb 0.5 mg-2.5 mg/3 mL inhalation solution ) 3 mL 04/11/2017 04/15/2017 NEB 3 mL, NEB, q2hr (scheduled), PRN: Bronchospasms hydrALAZINE(hydrALAZINE) 2 tabs 04/15/2017 Oral 20 mg 20 mg=2 tabs, Oral, q8hr, PRN: Hypertension/High Blood Pressure lisinopril(lisinopril) 1 tabs 04/1104/15/2017 Oral 20 mg 20 mg=1 tabs, Oral, Daily tamsulosin(tamsulosin) 2 caps 04/1204/15/2017 Oral 0.8 mg 0.8 mg=2 caps, Oral, Daily hydrALAZINE(hydrALAZINE) 1 tabs 09/201604/13/2017 Oral 10 mg 10 mg=1 tabs, Oral, Once, PRN: Hypertension/High Blood Pressure naloxegol(Movantik) 0.5 tabs 201604/15/2017 Oral 12.5 mg 12.5 mg=0.5 tabs, Oral, qAM meloxicam(meloxicam) 2 tabs 201604/15/2017 Oral 15 mg 15 mg=2 tabs, Oral, Daily gabapentin(gabapentin 400 mg oral capsule) 1 caps 04/15/2017 Oral 400 mg 400 mg=1 caps, Oral, TID, 90 caps, 0 Refill(s) darunavir-cobicistat(Prezcobix 800 mg-150 mg oral tablet) 1 tabs 04/15/2017 Oral 1 tabs, Oral, Daily, 30 tabs, 0 Refill(s) DULoxetine(Cymbalta 60 mg oral delayed release capsule) 1 caps 04/15/2017 Oral 60 mg 60 mg=1 caps, Oral, Daily, 30 caps, 0 Refill(s) meloxicam(meloxicam 7.5 mg oral tablet) 2 tabs 04/15/2017 Oral 15 mg 15 mg=2 tabs, Oral, Daily, 60 tabs, 0 Refill(s) ipratropium-albuterol(DuoNeb 0.5 mg-2.5 mg/3 mL inhalation solution ) 3 mL 04/15/2017 NEB 3 mL, NEB, BID, 180 mL, 0 Refill(s) nicotine(nicotine 21 mg/24 hr transdermal film, extended release) 1 patches 04/15/2017 05/06/2017 TransDermal 1 patches, TransDermal, Daily, 21 patches, 0 Refill(s) naloxegol(Movantik 25 mg oral tablet) 0.5 tabs 04/15/2017 Oral 12.5 mg 12.5 mg=0.5 tabs, Oral, qAM, 15 tabs, 0 Refill(s) tamsulosin(tamsulosin 0.4 mg oral capsule) 2 caps 04/15/2017 Oral 0.8 mg 0.8 mg=2 caps, Oral, Daily, 60 caps, 0 Refill(s) oxycodone-acetaminophen(Percocet 5/325 oral tablet) 1 tabs 04/15/2017 04/29/2017 Oral 1 tabs, Oral, q6hr, PRN: Pain Moderate (4-6), 20 tabs, 0 Refill(s) tiZANidine(tiZANidine 2 mg oral tablet) 3 tabs 04/15/2017 Oral 6 mg 6 mg=3 tabs, Oral, TID, 270 tabs, 0 Refill(s) gabapentin(gabapentin) 1 caps 04/2404/24/2017 Oral 400 mg 400 mg=1 caps, Oral, Once pantoprazole(Protonix) 1 tabs 04/2404/29/2017 Oral 40 mg 40 mg=1 tabs, Oral, Daily lisinopril(lisinopril) 1 tabs 04/2404/29/2017 Oral 20 mg 20 mg=1 tabs, Oral, Daily gabapentin(gabapentin) 1 caps 04/2404/29/2017 Oral 400 mg 400 mg=1 caps, Oral, TID carvedilol(Coreg) 1 tabs 201604/29/2017 Oral 25 mg 25 mg=1 tabs, Oral, BIDWM naloxegol(Movantik) 04/24/2017 04/29/2017 Oral 25 mg 25 mg, Oral, qAM, 0 Refill(s) amLODIPine(Norvasc) 1 tabs 201604/29/2017 Oral 10 mg 10 mg=1 tabs, Oral, Daily ipratropium-albuterol(DuoNeb 0.5 mg-2.5 mg/3 mL inhalation solution ) 3 mL 04/25/2017 04/25/2017 NEB 3 mL, NEB, BID oxycodone-acetaminophen(Percocet 5/325 oral tablet) 1 tabs 04/25/2017 04/29/2017 Oral 1 tabs, Oral, q6hr, PRN: Pain Moderate (4-6) tiZANidine(tiZANidine) 3 tabs 04/2504/29/2017 Oral 6 mg 6 mg=3 tabs, Oral, TID albuterol(albuterol 5 mg/mL (0.5%) inhalation solution) 0.04 mL 04/25/2017 04/25/2017 Inhalation 180 mcg 180 mcg=0.04 mL, Inhalation , QID, PRN: Wheezing emtricitabine-tenofovir(Descovy 200 mg-25 mg oral tablet) 1 tabs 04/25/2017 04/29/2017 Oral 1 tabs, Oral, Daily darunavir-cobicistat(Prezcobix 800 mg-150 mg oral tablet) 1 tabs 04/25/2017 04/29/2017 Oral 1 tabs, Oral, Daily dolutegravir(dolutegravir) 1 tabs 04/25/2017 04/29/2017 Oral 50 mg 50 mg=1 tabs, Oral, Daily fluticasone-salmeterol(Advair HFA 115 mcg-21 mcg/inh inhalation aerosol) 2 puffs 04/25/20172016 Inhalation 2 puffs, Inhalation, BID diphenhydrAMINE(diphenhydrAMINE) 1 mL 04/26/2017 04/29/2017 IntraMuscular 50 mg 50 mg=1 mL, IntraMuscular, q4hr, PRN: Extrapyramidal Symptoms LORazepam(Ativan) 2 tabs 201604/29/2017 Oral 2 mg 2 mg=2 tabs, Oral, q4hr, PRN: Anxiety haloperidol(Haldol) 1 mL 201604/29/2017 IntraMuscular 5 mg 5 mg=1 mL, IntraMuscular, q4hr, PRN: Agitation nicotine(nicotine 21 mg/24 hr transdermal film, extended release) 1 patches 04/26/2017 04/29/2017 TransDermal 1 patches, TransDermal, Daily albuterol(ProAir HFA 90 mcg/inh inhalation aerosol) 2 puffs 04/27/2017 04/29/2017 Inhalation 180 mcg 180 mcg=2 puffs, Inhalation , q4hr, PRN: Bronchospasms ipratropium-albuterol(DuoNeb 0.5 mg-2.5 mg/3 mL inhalation solution ) 3 mL 04/27/2017 04/29/2017 NEB 3 mL, NEB, TID fluticasone-salmeterol(fluticasone-salmeterol CFC free 115 mcg-21 mcg/inh inhalation aerosol) 2 puffs 04/27/2017 04/29/2017 Inhalation 2 puffs, Inhalation, BID tamsulosin(tamsulosin) 2 caps 04/2704/29/2017 Oral 0.8 mg 0.8 mg=2 caps, Oral, Bedtime (once a day) DULoxetine(Cymbalta) 1 caps 201604/29/2017 Oral 60 mg 60 mg=1 caps, Oral, Daily guaiFENesin(guaiFENesin 200 mg oral tablet) 2 tabs 04/29/2017 04/29/2017 Oral 400 mg 400 mg=2 tabs, Oral, TID albuterol(ProAir HFA 90 mcg/inh inhalation aerosol) 2 puffs 04/29/2017 Inhalation 180 mcg 180 mcg=2 puffs, Inhalation, q4hr, PRN: Bronchospasms, 1 Each, 0 Refill(s) DULoxetine(Cymbalta 60 mg oral delayed release capsule) 1 caps 04/29/2017 Oral 60 mg 60 mg=1 caps, Oral, Daily, 30 caps, 0 Refill(s) gabapentin(gabapentin 400 mg oral capsule) 1 caps 04/29/2017 Oral 400 mg 400 mg=1 caps, Oral, TID, 90 caps, 0 Refill(s) carvedilol(Coreg 25 mg oral tablet) 1 tabs 04/29/2017 Oral 25 mg 25 mg=1 tabs, Oral, BIDWM, 60 tabs, 0 Refill(s) emtricitabine-tenofovir(Descovy 200 mg-25 mg oral tablet) 1 tabs 04/29/2017 Oral 1 tabs, Oral, Daily, 30 tabs, 0 Refill(s) darunavir-cobicistat(Prezcobix 800 mg-150 mg oral tablet) 1 tabs 04/29/2017 Oral 1 tabs, Oral, Daily, 30 tabs, 0 Refill(s) fluticasone-vilanterol(Breo Ellipta 100 mcg-25 mcg/inh inhalation powder) 1 puffs 04/29/2017 Inhalation 1 puffs, Inhalation, Daily, 30 Each, 0 Refill(s) dolutegravir(dolutegravir 50 mg oral tablet) 1 tabs 04/29/2017 Oral 50 mg 50 mg=1 tabs, Oral, Daily, 30 tabs, 0 Refill(s) hydrOXYzine(hydrOXYzine hydrochloride 25 mg oral tablet) 2 tabs 04/29/2017 Oral 50 mg 50 mg=2 tabs, Oral, q6hr, PRN: Anxiety, 240 tabs , 0 Refill(s) tamsulosin(tamsulosin 0.4 mg oral capsule) 2 caps 04/29/2017 Oral 0.8 mg 0.8 mg=2 caps, Oral, Bedtime (once a day), 60 caps, 0 Refill(s ) lisinopril(lisinopril 20 mg oral tablet) 1 tabs 04/29/2017 Oral 20 mg 20 mg=1 tabs, Oral, Daily, 30 tabs, 0 Refill(s) tiZANidine(tiZANidine 2 mg oral tablet) 3 tabs 04/29/2017 05/06/2017 Oral 6 mg 6 mg=3 tabs, Oral, TID, for 7 days, 63 tabs, 0 Refill( s) pantoprazole(Protonix 40 mg oral delayed release tablet) 1 tabs 04/29/2017 Oral 40 mg 40 mg=1 tabs, Oral, Daily, 30 tabs, 0 Refill(s) amLODIPine(Norvasc 10 mg oral tablet) 1 tabs 04/29/2017 Oral 10 mg 10 mg=1 tabs, Oral, Daily, 30 tabs, 0 Refill(s) guaiFENesin(guaiFENesin 200 mg oral tablet) 2 tabs 04/29/2017 05/06/2017 Oral 400 mg 400 mg=2 tabs, Oral, TID, for 7 days, 42 tabs, 0 Refill(s) ipratropium-albuterol(DuoNeb 0.5 mg-2.5 mg/3 mL inhalation solution ) 3 mL 04/29/2017 NEB 3 mL, NEB, TID, 270 mL, 0 Refill(s) ondansetron(Zofran) 2 mL 201605/06/2017 IV Push 4 mg 4 mg=2 mL, IV Push, Once ipratropium-albuterol(DuoNeb 0.5 mg-2.5 mg/3 mL inhalation solution ) 9 mL 05/06/2017 05/06/2017 NEB 9 mL, NEB, Once predniSONE(predniSONE 20 mg oral tablet) 2 tabs 05/07/2017 05/10/2017 Oral 40 mg 40 mg=2 tabs, Oral, Daily, for 3 days, 6 tabs, 0 Refill(s) ondansetron(Zofran) 2 mL 201605/09/2017 IV Push 4 mg 4 mg=2 mL, IV Push, q30min, PRN: Nausea or Vomiting aspirin(aspirin) 4 tabs 05/08/2017 05/09/2017 Oral 324 mg 324 mg=4 tabs, Oral, Once, PRN: Other (See Comment) ondansetron(Zofran) 2 mL 201605/08/2017 IV Push 4 mg 4 mg=2 mL, IV Push, Once HYDROmorphone(Dilaudid) 0.5 mL 05/08/2017 IV Push 0.5 mg 0.5 mg=0.5 mL, IV Push, q15min, PRN: Pain ipratropium-albuterol(DuoNeb 0.5 mg-2.5 mg/3 mL inhalation solution ) 9 mL 05/08/2017 05/08/2017 NEB 9 mL, NEB, Once buPROPion(buPROPion 100 mg oral tablet) 05/08/2017 05/08/2017 0 Refill(s) atorvastatin(atorvastatin 40 mg oral tablet) 1 tabs 05/08/2017 Oral 40 mg 40 mg=1 tabs, Oral, Bedtime (once a day), 0 Refill(s) lactulose(lactulose 10 g/15 mL oral syrup) 05/08/2017 05/08/2017 0 Refill(s) carvedilol(carvedilol 25 mg oral tablet) 1 tabs 05/08/2017 Oral 25 mg 25 mg=1 tabs, Oral, BIDWM, 0 Refill(s) fluconazole(fluconazole 100 mg oral tablet) 1 tabs 05/08/2017 Oral 100 mg 100 mg=1 tabs, Oral, Daily, 0 Refill(s) ondansetron(Zofran) 2 mL 201605/11/2017 IV Push 4 mg 4 mg=2 mL, IV Push, q6hr, PRN: Nausea polyethylene glycol 3350(MiraLax) 1 packets 05/09/2017 05/11/2017 Oral 17 g 17 g=1 packets, Oral, Daily, PRN: Constipation enoxaparin(Lovenox) 0.4 mL 201605/11/2017 SubCutaneous 40 mg 40 mg=0.4 mL, SubCutaneous, Daily calcium carbonate(Tums) 1 tabs 05/11/2017 Oral 500 mg 500 mg=1 tabs, Oral, q4hr, PRN: GERD/Heartburn nicotine(Habitrol 14 mg/24 hr transdermal film, extended release) 1 patches 05/09/2017 05/11/2017 TransDermal 1 patches, TransDermal, Daily acetaminophen(acetaminophen) 2 tabs 05/09/2017 05/11/2017 Oral 650 mg 650 mg=2 tabs, Oral, q4hr, PRN: Other (See Comment) docusate-senna(Senokot S 50 mg-8.6 mg oral tablet) 1 tabs 05/09/2017 05/11/2017 Oral 1 tabs, Oral, Daily, PRN: Constipation atorvastatin(atorvastatin) 1 tabs 05/09/2017 05/11/2017 Oral 40 mg 40 mg=1 tabs, Oral, Bedtime (once a day) albuterol(ProAir HFA 90 mcg/inh inhalation aerosol) 2 puffs 05/09/2017 05/09/2017 Inhalation 180 mcg 180 mcg=2 puffs, Inhalation , q4hr, PRN: Shortness of Breath/Wheezing amLODIPine(Norvasc) 1 tabs 201605/09/2017 Oral 10 mg 10 mg=1 tabs, Oral, Daily carvedilol(carvedilol) 1 tabs 05/0905/11/2017 Oral 25 mg 25 mg=1 tabs, Oral, BIDWM darunavir-cobicistat(Prezcobix 800 mg-150 mg oral tablet) 1 tabs 05/09/2017 05/11/2017 Oral 1 tabs, Oral, Daily dolutegravir(dolutegravir) 1 tabs 05/09/2017 05/11/2017 Oral 50 mg 50 mg=1 tabs, Oral, Daily DULoxetine(Cymbalta) 1 caps 201605/11/2017 Oral 60 mg 60 mg=1 caps, Oral, Daily gabapentin(gabapentin) 1 caps 05/0905/11/2017 Oral 400 mg 400 mg=1 caps, Oral, TID budesonide-formoterol(budesonide-formoterol 80 mcg-4.5 mcg/inh inhalation aerosol) 2 puffs 05/09/2017 05/09/2017 Inhalation 2 puffs , Inhalation, BID tamsulosin(tamsulosin) 2 caps 05/0905/11/2017 Oral 0.8 mg 0.8 mg=2 caps, Oral, Bedtime (once a day) pantoprazole(Protonix) 1 tabs 05/0905/11/2017 Oral 40 mg 40 mg=1 tabs, Oral, Before Breakfast emtricitabine-tenofovir(Descovy 200 mg-25 mg oral tablet) 1 tabs 05/09/2017 05/11/2017 Oral 1 tabs, Oral, Daily predniSONE(predniSONE) 2 tabs 05/0905/11/2017 Oral 40 mg 40 mg=2 tabs, Oral, Daily levofloxacin(Levaquin) 150 mL 05/0905/10/2017 IV Piggyback 750 mg 750 ng=821 mL, 100 mL/hr, IV Piggyback, Bedtime (once a day) fluticasone-salmeterol(Advair HFA 115 mcg-21 mcg/inh inhalation aerosol) 2 puffs 05/09/20172016 Inhalation 2 puffs, Inhalation, BID ipratropium-albuterol(DuoNeb 0.5 mg-2.5 mg/3 mL inhalation solution ) 3 mL 05/09/2017 05/11/2017 NEB 3 mL, NEB, q2hr (scheduled), PRN: Bronchospasms sulfamethoxazole-trimethoprim(Bactrim DS 800 mg-160 mg oral tablet ) 2 tabs 05/09/2017 05/10/2017 Oral 2 tabs, Oral, TID ketorolac(Toradol) 1 mL 05/09/2017 05/10/2017 IV Push 30 mg 30 mg=1 mL, IV Push, q6hr, PRN: Pain Severe (7-10) sodium chloride(sodium chloride 7% inhalation solution) 3 mL 05/09/2017 05/09/2017 NEB 3 mL, NEB, Once oxycodone-acetaminophen(Percocet 10/325 oral tablet) 1 tabs 05/09/2017 05/11/2017 Oral 1 tabs, Oral, q4hr, PRN: Pain Moderate (4-6) calcium gluconate(calcium gluconate) 10 mL 05/10/2017 05/10/2017 IV Push 1,000 mg 1,000 mg=10 mL, IV Push, Once dapsone(dapsone) 1 tabs 05/10/2017 05/11/2017 Oral 100 mg 100 mg=1 tabs, Oral, Daily Sodium Chloride 0.9%(Sodium Chloride 0.9% 1,000 mL) 1,000 mL 05/10/2017 05/10/2017 IV 999 mL/hr, IV, Stop: 05/10/17 12:51:00 CDT levofloxacin(levofloxacin) 1 tabs 05/10/2017 05/11/2017 Oral 750 mg 750 mg=1 tabs, Oral, q24hr insulin regular(insulin regular (concentrated) 500 units/mL human recombinant subcutaneous solution) 0.1 mL 201605/10/2017 IV Push 10 units 10 units=0.1 mL, IV Push, Once calcium gluconate(calcium gluconate) 10 mL 05/10/2017 05/10/2017 IV Push 1,000 mg 1,000 mg=10 mL, IV Push, Once Sodium Chloride 0.9%(Sodium Chloride 0.9% 1,000 mL) 1,000 mL 05/10/2017 05/10/2017 IV 999 mL/hr, IV, Stop: 05/10/17 17:49:00 CDT senna(senna 8.6 mg oral tablet) 1 tabs 05/10/2017 05/11/2017 Oral 8.6 mg 8.6 mg=1 tabs, Oral, Daily, PRN: Constipation insulin regular(insulin regular 100 units/mL human recombinant injectable solution) 0.1 mL 05/10/2017 05/10/2017 IV Push 10 units 10 units=0.1 mL, IV Push, Once Dextrose 50% in Water(Dextrose 50% in Water Injection) 05/10/2017 05/10/2017 IV Push 1/2 amp, IV Push, Once sodium polystyrene sulfonate(Kayexalate) 60 mL 05/10/2017 05/10/2017 Oral 15 g 15 g=60 mL, Oral, Once albuterol(albuterol 5 mg/mL (0.5%) inhalation solution) 1.5 mL 05/11/2017 05/11/2017 NEB 7.5 mg 7.5 mg=1.5 mL, NEB, Once calcium gluconate(calcium gluconate) 10 mL 05/11/2017 05/11/2017 IV Push 1,000 mg 1,000 mg=10 mL, IV Push, Once furosemide(Lasix) 4 mL 05/11/2017 05/11/2017 IV Push 40 mg 40 mg=4 mL, IV Push, Once furosemide(Lasix) 2 mL 05/11/2017 05/11/2017 IV Push 20 mg 20 mg=2 mL, IV Push, Daily furosemide(Lasix) 2 mL 05/11/2017 IV Push 20 mg 20 mg=2 mL, IV Push, Daily, 0 Refill(s) docusate-senna(Senokot S 50 mg-8.6 mg oral tablet) 1 tabs 05/11/2017 Oral 1 tabs, Oral, Daily, PRN: Constipation, 0 Refill(s) polyethylene glycol 3350(MiraLax) 1 packets 05/11/2017 Oral 17 g 17 g=1 packets, Oral, Daily, PRN: Constipation, 0 Refill(s) predniSONE(predniSONE 20 mg oral tablet) 2 tabs 05/11/2017 05/13/2017 Oral 40 mg 40 mg=2 tabs, Oral, Daily, 2 tabs, 0 Refill(s) dapsone(dapsone 100 mg oral tablet) 1 tabs 05/11/2017 Oral 100 mg 100 mg=1 tabs, Oral, Daily, 30 tabs, 0 Refill(s) levofloxacin(levoFLOXacin 750 mg oral tablet) 1 tabs 05/11/2017 05/15/2017 Oral 750 mg 750 mg=1 tabs, Oral, q24hr, 4 tabs, 0 Refill(s) albuterol(albuterol 5 mg/mL (0.5%) inhalation solution) 1.5 mL 05/16/2017 05/16/2017 NEB 7.5 mg 7.5 mg=1.5 mL, NEB, Once ondansetron(Zofran) 2 mL 201605/18/2017 IV Push 4 mg 4 mg=2 mL, IV Push, q6hr, PRN: Nausea heparin(heparin) 1 mL 05/17/2017 05/18/2017 SubCutaneous 5,000 units 5,000 units=1 mL, SubCutaneous, q8hr (scheduled) polyethylene glycol 3350(MiraLax) 1 packets 05/17/2017 05/18/2017 Oral 17 g 17 g=1 packets, Oral, Daily, PRN: Constipation calcium carbonate(Tums) 1 tabs 12/201605/18/2017 Oral 500 mg 500 mg=1 tabs, Oral, q4hr, PRN: GERD/Heartburn senna(Senokot) 1 tabs 05/17/2017 05/18/2017 Oral 8.6 mg 8.6 mg=1 tabs, Oral, Daily, PRN: Constipation acetaminophen(acetaminophen) 2 tabs 05/17/2017 05/18/2017 Oral 650 mg 650 mg=2 tabs, Oral, q4hr, PRN: Other (See Comment) atorvastatin(atorvastatin) 1 tabs 05/17/2017 05/18/2017 Oral 40 mg 40 mg=1 tabs, Oral, Bedtime (once a day) amLODIPine(Norvasc) 1 tabs 201605/18/2017 Oral 10 mg 10 mg=1 tabs, Oral, Daily carvedilol(carvedilol) 1 tabs 05/1705/18/2017 Oral 25 mg 25 mg=1 tabs, Oral, BIDWM DULoxetine(Cymbalta) 1 caps 201605/18/2017 Oral 60 mg 60 mg=1 caps, Oral, Daily dapsone(dapsone) 1 tabs 05/17/2017 05/18/2017 Oral 100 mg 100 mg=1 tabs, Oral, Daily emtricitabine-tenofovir(Descovy 200 mg-25 mg oral tablet) 1 tabs 05/17/2017 05/18/2017 Oral 1 tabs, Oral, Daily darunavir-cobicistat(Prezcobix 800 mg-150 mg oral tablet) 1 tabs 05/17/2017 05/18/2017 Oral 1 tabs, Oral, Daily dolutegravir(dolutegravir) 1 tabs 05/17/2017 05/18/2017 Oral 50 mg 50 mg=1 tabs, Oral, Daily lisinopril(lisinopril) 1 tabs 05/1705/18/2017 Oral 20 mg 20 mg=1 tabs, Oral, Daily pantoprazole(Protonix) 1 tabs 05/1705/18/2017 Oral 40 mg 40 mg=1 tabs, Oral, Daily ipratropium-albuterol(DuoNeb 0.5 mg-2.5 mg/3 mL inhalation solution ) 3 mL 05/17/2017 05/17/2017 NEB Canceled budesonide-formoterol(budesonide-formoterol 160 mcg-4.5 mcg/inh inhalation aerosol) 2 puffs 05/17/2017 05/17/2017 Inhalation Canceled tamsulosin(tamsulosin) 2 caps 05/1705/18/2017 Oral 0.8 mg 0.8 mg=2 caps, Oral, Bedtime (once a day) tiotropium(Spiriva) 1 caps 201605/17/2017 Inhalation 18 mcg Canceled tiZANidine(tiZANidine) 1.5 tabs 12/201605/18/2017 Oral 6 mg 6 mg=1.5 tabs, Oral, TID, PRN: Muscle Pain fluticasone-salmeterol(Advair HFA 115 mcg-21 mcg/inh inhalation aerosol) 2 puffs 05/17/20172016 Inhalation 2 puffs, Inhalation, BID ipratropium-albuterol(DuoNeb 0.5 mg-2.5 mg/3 mL inhalation solution ) 3 mL 05/17/2017 05/18/2017 NEB 3 mL, NEB, q2hr (scheduled), PRN: Bronchospasms pregabalin(pregabalin) 1 caps 05/1705/18/2017 Oral 50 mg 50 mg=1 caps, Oral, TID predniSONE(predniSONE) 2 tabs 05/1705/18/2017 Oral 40 mg 40 mg=2 tabs, Oral, Daily ibuprofen(ibuprofen) 1 tabs 201605/18/2017 Oral 600 mg 600 mg=1 tabs, Oral, q6hr, PRN: Pain Severe (7-10) ketorolac(Toradol) 1 mL 05/17/2017 05/17/2017 IV Push 30 mg 30 mg=1 mL, IV Push, Once predniSONE(predniSONE 20 mg oral tablet) 2 tabs 05/18/2017 05/26/2017 Oral 40 mg 40 mg=2 tabs, Oral, Daily, 16 tabs, 0 Refill(s) ipratropium-albuterol(DuoNeb 0.5 mg-2.5 mg/3 mL inhalation solution ) 6 mL 05/27/2017 05/27/2017 NEB 6 mL, NEB, Once budesonide(budesonide 0.5 mg/2 mL inhalation suspension) 2 mL 05/27/2017 05/27/2017 NEB 0.5 mg 0.5 mg=2 mL, NEB, BID ipratropium-albuterol(DuoNeb 0.5 mg-2.5 mg/3 mL inhalation solution ) 6 mL 05/27/2017 05/27/2017 NEB 6 mL, NEB, q1hr, PRN: Bronchospasms Sodium Chloride 0.9%(Sodium Chloride 0.9% 1,000 mL) 1,000 mL 05/27/2017 05/27/2017 IV 125 mL/hr, IV ocular lubricant(Lacri-Lube S.O.P. ophthalmic ointment) 1 lianna 05/27/2017 05/27/2017 Eye- Both 3.5 g 3.5 g=1 lianna, Eye-Both, q2hr, PRN: Dry Eyes ocular lubricant(ocular lubricant ophthalmic solution) 1 drops 05/27/2017 05/27/2017 Eye- Both 1 drops, Eye-Both, q1hr, PRN: Dry Eyes levofloxacin(levofloxacin) 150 mL 05/27/2017 05/27/2017 IV Piggyback 750 mg 750 ww=182 mL, 100 mL/hr, IV Piggyback, q24hr omeprazole(omeprazole) 2016 Oral 40 mg 40 mg , Oral, Daily, 0 Refill(s) nicotine(Nicoderm C-Q 21 mg/24 hr transdermal film, extended release) 1 patches 05/27/2017 TransDermal 1 patches, TransDermal, Daily, 0 Refill(s) tiZANidine(tiZANidine 4 mg oral tablet) 1 tabs 05/27/2017 Oral 4 mg 4 mg=1 tabs, Oral, TID, PRN: back pain, 0 Refill(s) dolutegravir(Tivicay 50 mg oral tablet) 1 tabs 05/27/2017 Oral 50 mg 50 mg=1 tabs, Oral, Daily, 0 Refill(s) naloxegol(Movantik 25 mg oral tablet) 1 tabs 05/27/2017 Oral 25 mg 25 mg=1 tabs, Oral, qAM, 0 Refill(s) darunavir-cobicistat(Prezcobix 800 mg-150 mg oral tablet) 1 tabs 05/27/2017 Oral 1 tabs, Oral, Daily, with food, 30 tabs, 0 Refill(s ) tiotropium(Spiriva Respimat 2.5 mcg/inh inhalation aerosol) 2 puffs 05/27/2017 Inhalation 2 puffs, Inhalation, Daily, 4 g, 0 Refill(s ) buPROPion(buPROPion 100 mg oral tablet) 1 tabs 05/27/2017 Oral 100 mg 100 mg=1 tabs, Oral, BID, 0 Refill(s) DULoxetine(DULoxetine) 2016 Oral 60 mg 60 mg , Oral, Daily, 0 Refill(s) HYDROcodone-acetaminophen(Karval 10 mg-325 mg oral tablet) 1 tabs 05/27/2017 05/27/2017 Oral 1 tabs, Oral, q6hr, PRN: Pain Severe (7-10 ) acetaminophen(Tylenol range dose) 05/27/2017 05/27/2017 Oral 325-650 mg, Oral, q6hr, PRN: Pain Moderate (4-6) ondansetron(Zofran) 2 mL 201606/12/2017 IV Push 4 mg 4 mg=2 mL, IV Push, q30min, PRN: Nausea or Vomiting piperacillin-tazobactam(Zosyn) 15 mL 06/11/2017 06/11/2017 IV Piggyback 3.375 g 3.375 g=15 mL, 130 mL/hr, IV Piggyback, Once vancomycin(vancomycin) 20 mL 201606/11/2017 IV Piggyback 1 g 1 g=20 mL, 270 mL/hr, IV Piggyback, Once clarithromycin(clarithromycin) Oral 500 mg 500 mg, Oral, q12hr, with food, 0 Refill(s) ciprofloxacin(Cipro) 06/11/2017 Oral 500 mg 500 mg, Oral, BID, 0 Refill(s) emtricitabine-tenofovir(Descovy 200 mg-25 mg oral tablet) 1 tabs 06/11/2017 Oral 1 tabs, Oral, Daily, with food, 30 tabs, 0 Refill(s ) ethambutol(ethambutol 400 mg oral tablet) 4 tabs 06/11/2017 Oral 1,600 mg 1,600 mg=4 tabs, Oral, Daily, 0 Refill(s) hydrOXYzine(hydrOXYzine) 2016 Oral 50 mg 50 mg , Oral, q6hr, PRN: as needed for anxiety, 0 Refill(s) darunavir-cobicistat(Prezcobix 800 mg-150 mg oral tablet) 1 tabs 06/11/2017 Oral 1 tabs, Oral, Daily, with food, 30 tabs, 0 Refill(s ) dapsone(dapsone) 1 tabs 06/11/2017 06/12/2017 Oral 100 mg 100 mg=1 tabs, Oral, Daily darunavir-cobicistat(Prezcobix 800 mg-150 mg oral tablet) 1 tabs 06/11/2017 06/12/2017 Oral 1 tabs, Oral, With Breakfast dolutegravir(dolutegravir) 1 tabs 06/11/2017 06/12/2017 Oral 50 mg 50 mg=1 tabs, Oral, Daily docusate-senna(Senokot S 50 mg-8.6 mg oral tablet) 1 tabs 06/11/2017 06/12/2017 Oral 1 tabs, Oral, Daily, PRN: Constipation DULoxetine(DULoxetine) 1 caps 06/1106/12/2017 Oral 60 mg 60 mg=1 caps, Oral, Daily ethambutol(ethambutol) 4 tabs 06/1106/12/2017 Oral 1,600 mg 1,600 mg=4 tabs, Oral, Daily emtricitabine-tenofovir(Descovy 200 mg-25 mg oral tablet) 1 tabs 06/11/2017 06/12/2017 Oral 1 tabs, Oral, Daily atorvastatin(atorvastatin) 1 tabs 06/11/2017 06/12/2017 Oral 40 mg 40 mg=1 tabs, Oral, Bedtime (once a day) albuterol(ProAir HFA 90 mcg/inh inhalation aerosol) 2 puffs 06/11/2017 06/11/2017 Inhalation 180 mcg 180 mcg=2 puffs, Inhalation , q4hr, PRN: Bronchospasms buPROPion(buPROPion) 1 tabs 201606/12/2017 Oral 100 mg 100 mg=1 tabs, Oral, BID carvedilol(carvedilol) 1 tabs 06/1106/12/2017 Oral 25 mg 25 mg=1 tabs, Oral, BIDWM budesonide-formoterol(budesonide-formoterol 160 mcg-4.5 mcg/inh inhalation aerosol) 2 puffs 06/11/2017 06/11/2017 Inhalation 2 puffs , Inhalation, BID piperacillin-tazobactam(piperacillin-tazobactam) 15 mL 06/11/2017 06/12/2017 IV Piggyback 3.375 g 3.375 g=15 mL, 16.25 mL/hr, IV Piggyback, q8hr potassium chloride(potassium chloride 10 mEq oral tablet, extended release) 2 tabs 06/11/20172016 Oral 20 mEq 20 mEq=2 tabs, Oral, BIDWM budesonide(budesonide 0.5 mg/2 mL inhalation suspension) 2 mL 06/11/2017 06/12/2017 NEB 0.5 mg 0.5 mg=2 mL, NEB, BID ipratropium-albuterol(DuoNeb 0.5 mg-2.5 mg/3 mL inhalation solution ) 3 mL 06/11/2017 06/12/2017 NEB 3 mL, NEB, q2hr (scheduled), PRN: Bronchospasms cefdinir(cefdinir 300 mg oral capsule) 1 caps 06/12/2017 06/19/2017 Oral 300 mg 300 mg=1 caps, Oral, q12hr, for 7 days, 14 caps, 0 Refill (s) ondansetron(Zofran) 2 mL 201607/11/2017 IV Push 4 mg 4 mg=2 mL, IV Push, q30min, PRN: Nausea or Vomiting glucose(glucose) 07/10/2017 07/12/2017 Oral 15 g 15 g, Oral, q1hr, PRN: Hypoglycemia/Low Blood Sugar glucagon(glucagon) 1 mL 07/10/2017 07/12/2017 IntraMuscular 1 mg 1 mg=1 mL, IntraMuscular, As Indicated, PRN: Hypoglycemia/Low Blood Sugar enoxaparin(Lovenox) 0.4 mL 201607/12/2017 SubCutaneous 40 mg 40 mg=0.4 mL, SubCutaneous, Daily Sodium Chloride 0.9%(Sodium Chloride 0.9% 1,000 mL) 1,000 mL 07/10/2017 07/12/2017 IV 80 mL/hr, IV Dextrose 50% in Water(Dextrose 50% in Water Injection) 25 mL 07/10/2017 07/12/2017 IV Push 12.5 g 12.5 g=25 mL, IV Push, q15min, PRN: Hypoglycemia/Low Blood Sugar Dextrose 10% in Water(Dextrose 10% in Water 250 mL) 250 mL 07/10/2017 07/12/2017 IV 50 mL/hr, IV acetaminophen(acetaminophen) 2 tabs 07/10/2017 07/12/2017 Oral 650 mg 650 mg=2 tabs, Oral, q4hr, PRN: Other (See Comment) oxycodone-acetaminophen(Percocet 5/325 oral tablet) 1 tabs 07/10/2017 07/12/2017 Oral 1 tabs, Oral, q4hr, PRN: Pain Moderate (4-6) budesonide(budesonide 0.5 mg/2 mL inhalation suspension) 2 mL 07/11/2017 07/12/2017 NEB 0.5 mg 0.5 mg=2 mL, NEB, BID ipratropium-albuterol(DuoNeb 0.5 mg-2.5 mg/3 mL inhalation solution ) 3 mL 07/11/2017 07/12/2017 NEB 3 mL, NEB, q2hr (scheduled), PRN: Bronchospasms atorvastatin(atorvastatin) 1 tabs 07/11/2017 07/12/2017 Oral 40 mg 40 mg=1 tabs, Oral, Bedtime (once a day) buPROPion(buPROPion) 1 tabs 201607/12/2017 Oral 100 mg 100 mg=1 tabs, Oral, BID dapsone(dapsone) 1 tabs 07/11/2017 07/12/2017 Oral 100 mg 100 mg=1 tabs, Oral, Daily clarithromycin(clarithromycin) 1 tabs 07/11/2017 07/12/2017 Oral 500 mg 500 mg=1 tabs, Oral, BIDWM ciprofloxacin(Cipro) 1 tabs 201607/12/2017 Oral 500 mg 500 mg=1 tabs, Oral, BID DULoxetine(DULoxetine) 1 caps 07/1107/12/2017 Oral 60 mg 60 mg=1 caps, Oral, Daily fluconazole(fluconazole) 1 tabs 07/12/2017 Oral 100 mg 100 mg=1 tabs, Oral, Daily ethambutol(ethambutol) 4 tabs 07/1107/12/2017 Oral 1,600 mg 1,600 mg=4 tabs, Oral, Daily gabapentin(gabapentin) 1 caps 07/1107/12/2017 Oral 400 mg 400 mg=1 caps, Oral, TID emtricitabine-tenofovir(Descovy 200 mg-25 mg oral tablet) 1 tabs 07/11/2017 07/12/2017 Oral 1 tabs, Oral, Daily darunavir-cobicistat(Prezcobix 800 mg-150 mg oral tablet) 1 tabs 07/11/2017 07/12/2017 Oral 1 tabs, Oral, With Breakfast dolutegravir(dolutegravir) 1 tabs 07/11/2017 07/12/2017 Oral 50 mg 50 mg=1 tabs, Oral, Daily docusate-senna(Senokot S 50 mg-8.6 mg oral tablet) 1 tabs 07/11/2017 07/12/2017 Oral 1 tabs, Oral, Daily, PRN: Constipation tiZANidine(tiZANidine) 3 tabs 07/1107/12/2017 Oral 6 mg 6 mg=3 tabs, Oral, TID, PRN: Muscle Spasm carvedilol(carvedilol) 1 tabs 07/1107/12/2017 Oral 6.25 mg 6.25 mg=1 tabs, Oral, BIDWM famotidine(famotidine) 1 tabs 07/1107/12/2017 Oral 20 mg 20 mg=1 tabs, Oral, BID, PRN: Dyspepsia/Indigestion ketotifen ophthalmic(ketotifen 0.025% ophthalmic solution) 1 drops 07/11/2017 07/12/2017 Eye -Both 1 drops, Eye-Both, BID predniSONE(predniSONE) 1 tabs 07/1207/12/2017 Oral 20 mg 20 mg=1 tabs, Oral, Daily erythromycin ophthalmic(erythromycin 0.5% ophthalmic ointment) 1 lianna 07/12/2017 07/12/2017 Eye-Both 1 lianna, Eye-Both, Once carvedilol(carvedilol 6.25 mg oral tablet) 1 tabs 07/12/2017 08/11/2017 Oral 6.25 mg 6.25 mg=1 tabs, Oral, BIDWM, 60 tabs, 0 Refill(s ) ipratropium(ipratropium) 2.5 mL 10/13/2017 NEB 0.5 mg 0.5 mg=2.5 mL, NEB, Once albuterol(albuterol 5 mg/mL (0.5%) inhalation solution) 1.5 mL 10/13/2017 10/13/2017 NEB 7.5 mg 7.5 mg=1.5 mL, NEB, Once budesonide(budesonide 0.5 mg/2 mL inhalation suspension) 2 mL 10/13/2017 10/22/2017 NEB 0.5 mg 0.5 mg=2 mL, NEB, BID ipratropium-albuterol(DuoNeb 0.5 mg-2.5 mg/3 mL inhalation solution ) 6 mL 10/13/2017 10/22/2017 NEB 6 mL, NEB, q1hr, PRN: Bronchospasms docusate(Colace) 1 caps 10/13/2017 10/22/2017 Oral 100 mg 100 mg=1 caps, Oral, BID glucagon(glucagon) 1 mL 10/13/2017 10/22/2017 IntraMuscular 1 mg 1 mg=1 mL, IntraMuscular, As Indicated, PRN: Hypoglycemia/Low Blood Sugar polyethylene glycol 3350(MiraLax) 1 packets 10/13/2017 10/22/2017 Oral 17 g 17 g=1 packets, Oral, q12hr, PRN: Constipation glucose(glucose) 10/13/2017 10/22/2017 Oral 15 g 15 g, Oral, q1hr, PRN: Hypoglycemia/Low Blood Sugar Dextrose 50% in Water(Dextrose 50% in Water Injection) 25 mL 10/13/2017 10/22/2017 IV Push 12.5 g 12.5 g=25 mL, IV Push, q15min, PRN: Hypoglycemia/Low Blood Sugar Dextrose 10% in Water(Dextrose 10% in Water 250 mL) 250 mL 10/13/2017 10/22/2017 IV 50 mL/hr, IV ritonavir(ritonavir) 1 tabs 201710/22/2017 Oral 100 mg 100 mg=1 tabs, Oral, BID etravirine(etravirine) 2 tabs 10/1310/22/2017 Oral 200 mg 200 mg=2 tabs, Oral, BIDPC darunavir(darunavir) 1 tabs 201710/22/2017 Oral 600 mg 600 mg=1 tabs, Oral, BID ethambutol(ethambutol) 4 tabs 10/1310/22/2017 Oral 1,600 mg 1,600 mg=4 tabs, Oral, Daily dapsone(dapsone) 1 tabs 10/13/2017 10/22/2017 Oral 100 mg 100 mg=1 tabs, Oral, Daily clarithromycin(clarithromycin) 1 tabs 10/13/2017 10/22/2017 Oral 500 mg 500 mg=1 tabs, Oral, BID ciprofloxacin(Cipro) 1 tabs 201710/14/2017 Oral 500 mg 500 mg=1 tabs, Oral, BID dolutegravir(dolutegravir) 1 tabs 10/13/2017 10/22/2017 Oral 50 mg 50 mg=1 tabs, Oral, BID HYDROmorphone(Dilaudid) 1 mL 201710/13/2017 IV Push 1 mg 1 mg=1 mL, IV Push, Once acetaminophen(acetaminophen) 2 tabs 10/13/2017 10/13/2017 Oral 650 mg 650 mg=2 tabs, Oral, q4hr, PRN: Pain oxyCODONE(oxyCODONE) 2 tabs 201710/22/2017 Oral 10 mg 10 mg=2 tabs, Oral, q6hr, PRN: Pain - Breakthrough enoxaparin(Lovenox) 0.4 mL 201710/14/2017 SubCutaneous 40 mg 40 mg=0.4 mL, SubCutaneous, Bedtime (once a day) carvedilol(carvedilol) 1 tabs 10/1310/22/2017 Oral 12.5 mg 12.5 mg=1 tabs, Oral, BIDWM ondansetron(Zofran) 2 mL 201710/22/2017 IV Push 4 mg 4 mg=2 mL, IV Push, q6hr, PRN: Nausea or Vomiting nitroglycerin(nitroglycerin 0.4 mg sublingual tablet) 1 tabs 10/14/2017 10/22/2017 SubLingual 0.4 mg 0.4 mg=1 tabs, SubLingual, q5min, PRN: Angina/Chest Pain vancomycin(vancomycin) 275 mL 10/1410/15/2017 IV Piggyback 1.25 g 1.25 g=275 mL, 183.33 mL/hr, IV Piggyback, q12hr insulin regular(insulin regular 100 units/mL human recombinant injectable solution) 0.1 mL 10/14/2017 10/14/2017 IV Push 10 units 10 units=0.1 mL, IV Push, Once calcium gluconate(calcium gluconate) 10 mL 10/14/2017 10/14/2017 IV Push 1,000 mg 1,000 mg=10 mL, IV Push, Once sodium bicarbonate(sodium bicarbonate 8.4% intravenous solution) 50 mL 10/14/2017 10/14/2017 IV Push 50 mEq 50 mEq=50 mL, IV Push, Once Dextrose 50% in Water(Dextrose 50% in Water Injection) 50 mL 10/14/2017 10/14/2017 IV Push 25 g 25 g=50 mL, IV Push, Once ipratropium-albuterol(ipratropium-albuterol 0.5 mg-2.5 mg/3 mLinhalation solution) 6 mL 10/14/2017 10/14/2017 NEB 6 mL, NEB, Once heparin(heparin) 1 mL 10/14/2017 10/14/2017 SubCutaneous 5,000 units 5,000 units=1 mL, SubCutaneous, q8hr (scheduled) heparin(Heparin Bolus) 0.98 mL 09/201710/19/2017 IV Push 4,900 units 4,900 units=0.98 mL, IV Push, q6hr, PRN: Other (See Comment) atorvastatin(atorvastatin) 1 tabs 10/14/2017 10/22/2017 Oral 20 mg 20 mg=1 tabs, Oral, Daily clopidogrel(Plavix) 1 tabs 201710/14/2017 Oral 300 mg 300 mg=1 tabs, Oral, Once lidocaine(lidocaine 1% injectable solution) 5 mL 10/14/2017 10/14/2017 IntraDermal 5 mL, IntraDermal, Once clopidogrel(Plavix) 1 tabs 201710/22/2017 Oral 75 mg 75 mg=1 tabs, Oral, Daily atorvastatin(Lipitor) 1 tabs 201710/15/2017 Oral 20 mg 20 mg=1 tabs, Oral, Daily furosemide(Lasix) 4 mL 10/15/2017 10/17/2017 IV Push 40 mg 40 mg=4 mL, IV Push, Daily insulin aspart(NovoLOG) 0.04 mL 10/201710/15/2017 SubCutaneous 4 units 4 units=0.04 mL, SubCutaneous, Once lactulose(lactulose) 30 mL 201710/22/2017 Oral 20 g 20 g=30 mL, Oral, TID, PRN: Constipation labetalol(labetalol) 2 mL 201710/22/2017 IV Push 10 mg 10 mg=2 mL, IV Push, q1hr, PRN: Hypertension/High Blood Pressure magnesium citrate(magnesium citrate) 300 mL 10/17/2017 10/17/2017 Oral 300 mL, Oral, Once furosemide(Lasix) 1 tabs 201710/22/2017 Oral 40 mg 40 mg=1 tabs, Oral, BID diphenhydrAMINE(Benadryl) 1 tabs 10/22/2017 Oral 25 mg 25 mg=1 tabs, Oral, Bedtime (once a day), PRN: Insomnia amLODIPine(amLODIPine) 1 tabs 10/1710/22/2017 Oral 10 mg 10 mg=1 tabs, Oral, Daily bisacodyl(bisacodyl) 1 supp 201710/22/2017 Rectal 10 mg 10 mg=1 supp, Rectal, Daily, PRN: Constipation Sodium Chloride 0.9%(Sodium Chloride 0.9% 1,000 mL) 1,000 mL 10/18/2017 10/19/2017 IV 75 mL/hr, IV LORazepam(Ativan) 0.5 mL 201710/18/2017 IV Push 1 mg 1 mg=0.5 mL, IV Push, Once PARoxetine(PARoxetine) 1 tabs 10/1810/22/2017 Oral 10 mg 10 mg=1 tabs, Oral, qAM aspirin(aspirin) 1 tabs 10/18/2017 10/22/2017 Oral 325 mg 325 mg=1 tabs, Oral, Daily heparin(heparin) 1 mL 10/19/2017 10/22/2017 SubCutaneous 5,000 units 5,000 units=1 mL, SubCutaneous, q12hr (scheduled) lisinopril(lisinopril) 1 tabs 10/1910/22/2017 Oral 2.5 mg 2.5 mg=1 tabs, Oral, Daily potassium chloride(potassium chloride 20 mEq oral tablet, extended release) 2 tabs 10/22/20172017 Oral 40 mEq 40 mEq=2 tabs, Oral, Daily ciprofloxacin(Cipro 500 mg oral tablet) 10/22/2017 Oral 500 mg 500 mg, Oral, BID, 60 tabs, 0 Refill(s) clarithromycin(clarithromycin 500 mg oral tablet) 10/22/2017 Oral 500 mg 500 mg, Oral, q12hr, with food, 60 tabs, 0 Refill(s) ethambutol(ethambutol 400 mg oral tablet) 4 tabs 10/22/2017 Oral 1,600 mg 1,600 mg=4 tabs, Oral, Daily, 120 tabs, 0 Refill(s) dapsone(dapsone 100 mg oral tablet) 1 tabs 10/22/2017 Oral 100 mg 100 mg=1 tabs, Oral, Daily, 30 tabs, 0 Refill(s) dolutegravir(Tivicay 50 mg oral tablet) 1 tabs 10/22/2017 Oral 50 mg 50 mg=1 tabs, Oral, Daily, 30 tabs, 0 Refill(s) atorvastatin(atorvastatin 20 mg oral tablet) 1 tabs 10/22/2017 Oral 20 mg 20 mg=1 tabs, Oral, Daily, 30 tabs, 0 Refill(s) amLODIPine(amLODIPine 10 mg oral tablet) 1 tabs 10/22/2017 Oral 10 mg 10 mg=1 tabs, Oral, Daily, 30 tabs, 0 Refill(s) clopidogrel(Plavix 75 mg oral tablet) 1 tabs 10/22/2017 Oral 75 mg 75 mg=1 tabs, Oral, Daily, 30 tabs, 0 Refill(s) darunavir(darunavir 600 mg oral tablet) 1 tabs 10/22/2017 Oral 600 mg 600 mg=1 tabs, Oral, BID, 60 tabs, 0 Refill(s) etravirine(etravirine 100 mg oral tablet) 2 tabs 10/22/2017 Oral 200 mg 200 mg=2 tabs, Oral, BIDPC, 120 tabs, 0 Refill(s) furosemide(Lasix 40 mg oral tablet) 1 tabs 10/22/2017 Oral 40 mg 40 mg=1 tabs, Oral, Daily, 30 tabs, 0 Refill(s) ritonavir(ritonavir 100 mg oral tablet) 1 tabs 10/22/2017 Oral 100 mg 100 mg=1 tabs, Oral, BID, 60 tabs, 0 Refill(s) lisinopril(lisinopril 2.5 mg oral tablet) 1 tabs 10/22/2017 Oral 2.5 mg 2.5 mg=1 tabs, Oral, Daily, 30 tabs, 0 Refill(s) albuterol(ProAir HFA 90 mcg/inh inhalation aerosol) 2 puffs 10/22/2017 Inhalation 180 mcg 180 mcg=2 puffs, Inhalation, q4hr, PRN: Bronchospasms, 1 Each, 0 Refill(s) tiotropium(Spiriva Respimat 2.5 mcg/inh inhalation aerosol) 2 puffs 10/22/2017 Inhalation 5 mcg 5 mcg=2 puffs, Inhalation, Daily, 1 Each, 0 Refill(s) fluticasone-vilanterol(Breo Ellipta 100 mcg-25 mcg/inh inhalation powder) 1 puffs 10/22/2017 Inhalation 1 puffs, Inhalation, Daily, 30 Each, 0 Refill(s) Problems Date Dx Coded Attending Type Code Diagnosis Diagnosed By 01/20/2014 [place] LAST, Magdy Final 305.1 TOBACCO USE DISORDER 01/20/2014 [place] LAST, Magdy Final 603.8 HYDROCELE NEC 01/20/2014 [place] LAST, Magdy Final 608.9 MALE GENITAL DISORD NOS 01/20/2014 [place] LAST, Magdy Final V08 ASYMPTOMATIC HIV STATUS 04/26/2015 Conor Meier MD Reason 789.03 ABDOMINAL PAIN, RIGHT LOWER QUADRANT 05/09/2015 Camron Hodges Final 440.9 GENERALIZED AND UNSPECIFIED ATHEROSCLEROSIS 05/09/2015 Camron Hodges Final 553.1 UMBILICAL HERNIA WITHOUT MENTION OF OBSTRUCTION OR GANGRENE 05/09/2015 Camron Hodges Reason 789.00 ABDOMINAL PAIN, UNSPECIFIED SITE 07/03/2015 Final F17.210 Nicotine dependence, cigarettes, uncomplicated 07/03/2015 Final J18.9 Pneumonia , unspecified organism 07/03/2015 Final J44.1 Chronic obstructive pulmonary disease with (acute) exacerbation 07/03/2015 Reason R07.9 Chest pain, unspecified 07/03/2015 Final Z71.6 Tobacco abuse counseling 07/03/2015 Final Z91.19 Patient'' s noncompliance with other medical treatment and regimen 03/19/2016 Rosendo Farias Final L23.7 Allergic contact dermatitis due to plants, except food 03/19/2016 Rosendo Farias Reason R21 Rash and other nonspecific skin eruption 03/19/2016 Rosendo Farias Final Z21 Asymptomatic human immunodeficiency virus [HIV] infection status 03/19/2016 Rosendo Farias Final Z79.899 Other alf (current) drug therapy 11/10/2016 Muñoz Paul Admitting R94.31 11/19/2016 Meier Howard Final B20 Human immunodeficiency virus [HIV] disease 11/19/2016 Meier Howard Final F17.210 Nicotine dependence, cigarettes, uncomplicated 11/19/2016 Meier Howard Final F31.9 Bipolar disorder, unspecified 11/19/2016 Meier Howard Final J44.1 Chronic obstructive pulmonary disease with (acute) exacerbation 11/19/2016 Meier Howard Reason R06.00 Dyspnea, unspecified 11/19/2016 Muñoz Paul Final B19.20 Unspecified viral hepatitis C without hepatic coma 11/19/2016 Ndunda,, Gennaro Final B20 Human immunodeficiency virus [HIV] disease 11/19/2016 Ndunda,, Gennaro Final D64.9 Anemia, unspecified 11/19/2016 Ndunda,, Gennaro Final D69.6 Thrombocytopenia, unspecified 11/19/2016 Ndunda,, Gennaro Final F15.90 Other stimulant use, unspecified, uncomplicated 11/19/2016 Ndunda,, Gennaro Final F17.210 Nicotine dependence, cigarettes, uncomplicated 11/19/2016 Ndunda,, Gennaro Final F33.1 Major depressive disorder, recurrent, moderate 11/19/2016 Ndunda,, Gennaro Final F41.9 Anxiety disorder, unspecified 11/19/2016 Ndunda,, Gennaro Final G62.9 Polyneuropathy, unspecified 11/19/2016 Ndunda,, Gennaro Final I11.0 Hypertensive heart disease with heart failure 11/19/2016 Ndunda,, Gennaro Final I21.4 Non-ST elevation (NSTEMI) myocardial infarction 11/19/2016 Ndunda,, Gennaro Final I44.4 Left anterior fascicular block 11/19/2016 Ndunda,, Gennaro Final I45.81 Long QT syndrome 11/19/2016 Ndunda,, Gennaro Final I50.20 Unspecified systolic (congestive) heart failure 11/19/2016 Ndunda,, Gennaro Final I70.0 Atherosclerosis of aorta 11/19/2016 Ndunda,, Gennaro Final I95.9 Hypotension, unspecified 11/19/2016 Ndunda,, Gennaro Final J44.1 Chronic obstructive pulmonary disease with (acute) exacerbation 11/19/2016 Ndunda,, Gennaro Final J45.901 Unspecified asthma with (acute) exacerbation 11/19/2016 Ndunda,, Gennaro Admitting J96.01 Acute respiratory failure with hypoxia 11/19/2016 Ndunda,, Gennaro Final K82.8 Other specified diseases of gallbladder 11/19/2016 Ndunda,, Gennaro Final R74.0 Nonspecific elevation of levels of transaminase and lactic acid dehydrogena 11/19/2016 Ndunda,, Gennaro Final Z91.19 Patient''s noncompliance with other medical treatment and regimen 11/19/2016 Ndunda,, Gennaro Final J96.01 Acute respiratory failure with hypoxia 11/19/2016 Chapman Jacob Reason R45.851 Suicidal ideations 11/19/2016 Joshi,, Myles Admitting R06.02 11/24/2016 Joshi,, Myles Final B20 Human immunodeficiency virus [HIV] disease 11/24/2016 Joshi,, Myles Final F15.10 Other stimulant abuse, uncomplicated 11/24/2016 Joshi,, Myles Final F17.200 Nicotine dependence, unspecified, uncomplicated 11/24/2016 Joshi,, Myles Final F39 Unspecified mood [affective] disorder 11/24/2016 Joshi,, Myles Final G62.9 Polyneuropathy, unspecified 11/24/2016 Joshi,, Myles Final I10 Essential (primary) hypertension 11/24/2016 Joshi,, Myles Final I25.5 Ischemic cardiomyopathy 11/24/2016 Joshi,, Myles Final J44.9 Chronic obstructive pulmonary disease, unspecified 11/24/2016 Joshi,, Myles Final R06.00 Dyspnea, unspecified 11/24/2016 Joshi,, Myles Reason R06.02 Shortness of breath 11/24/2016 Joshi,, Myles Final R26.89 Other abnormalities of gait and mobility 11/30/2016 Joshi,, Myles Final B20 Human immunodeficiency virus [HIV] disease 11/30/2016 Joshi,, Myles Final E87.5 Hyperkalemia 11/30/2016 Joshi,, Myles Final F15.10 Other stimulant abuse, uncomplicated 11/30/2016 Joshi,, Myles Final F17.210 Nicotine dependence, cigarettes, uncomplicated 11/30/2016 Joshi,, Myles Final F32.9 Major depressive disorder, single episode, unspecified 11/30/2016 Joshi,, Myles Final G62.9 Polyneuropathy, unspecified 11/30/2016 Joshi,, Mylse Final I11.0 Hypertensive heart disease with heart failure 11/30/2016 Joshi,, Myles Final I25.5 Ischemic cardiomyopathy 11/30/2016 Joshi,, Myles Final I50.9 Heart failure, unspecified 11/30/2016 Joshi,, Myles Final J44.9 Chronic obstructive pulmonary disease, unspecified 11/30/2016 Joshi,, Myles Final J45.909 Unspecified asthma, uncomplicated 11/30/2016 Joshi,, Myles Final M62.81 Muscle weakness (generalized) 11/30/2016 Joshi,, Myles Final Z91.19 Patient''s noncompliance with other medical treatment and regimen 11/30/2016 Joshi Andrew Final R53.81 Other malaise 12/14/2016 Flores John Admitting B20 12/22/2016 Brucesar,, Odilia Final F17.210 Nicotine dependence, cigarettes, uncomplicated 12/22/2016 Bruey,, Odilia Final I10 Essential (primary) hypertension 12/22/2016 Bruey,, Odilia Final 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 12/22/2016 Brucesar,, Odilia Final I80.02 Phlebitis and thrombophlebitis of superficial vessels of left lower extremi 12/22/2016 Brucesar,, Odilia Final J44.9 Chronic obstructive pulmonary disease, unspecified 12/22/2016 Brucesar,, Odilia Reason R10.9 Unspecified abdominal pain 12/22/2016 Ismael,, Odilia Final Z86.73 Personal history of transient ischemic attack (TIA), and cerebral infarctio 12/22/2016 Mark,Rick Final B20 Human immunodeficiency virus [HIV] disease 12/22/2016 Forgcassie,, Rick Final E83.39 Other disorders of phosphorus metabolism 12/22/2016 Mark,, Rick Final E83.42 Hypomagnesemia 12/22/2016 Mark,Rick Final E87.5 Hyperkalemia 12/22/2016 Mark,, Rick Final F15.10 Other stimulant abuse, uncomplicated 12/22/2016 Forgcassie,, Rick Final F17.210 Nicotine dependence, cigarettes, uncomplicated 12/22/2016 Mark,, Rick Final F32.9 Major depressive disorder, single episode, unspecified 12/22/2016 Forge,, Rick Final F39 Unspecified mood [affective] disorder 12/22/2016 Mark,, Rick Final G62.9 Polyneuropathy, unspecified 12/22/2016 Mark,, Rick Final I11.0 Hypertensive heart disease with heart failure 12/22/2016 Mark,, Rick Final I25.5 Ischemic cardiomyopathy 12/22/2016 Mark,, Rick Final I50.20 Unspecified systolic (congestive) heart failure 12/22/2016 Mark,, Rick Final J44.9 Chronic obstructive pulmonary disease, unspecified 12/22/2016 Mark,, Rick Final J45.909 Unspecified asthma, uncomplicated 12/22/2016 Mark,Rick Final K52.9 Noninfective gastroenteritis and colitis, unspecified 12/22/2016 Flores John Admitting N17.9 Acute kidney failure, unspecified 12/22/2016 Forgcassie,Rick Final R10.9 Unspecified abdominal pain 12/22/2016 Mark,Rick Final R74.0 Nonspecific elevation of levels of transaminase and lactic acid dehydrogena 12/22/2016 Mark,Rick Final N17.9 Acute kidney failure, unspecified 04/08/2017 Hardeep,Conor Final F17.210 Nicotine dependence, cigarettes, uncomplicated 04/08/2017 Hardeep,Conor Final F32.9 Major depressive disorder, single episode, unspecified 04/08/2017 Hardeep,Conor Final F41.9 Anxiety disorder, unspecified 04/08/2017 Hardeep,Conor Final I10 Essential (primary) hypertension 04/08/2017 Hardeep,Conor Final J44.1 Chronic obstructive pulmonary disease with (acute) exacerbation 04/08/2017 Meier Howard Reason R07.9 Chest pain, unspecified 04/08/2017 Hardeep,Conor Final Z21 Asymptomatic human immunodeficiency virus [HIV] infection status 04/08/2017 Shields Donna Admitting R07.9 04/23/2017 Shields Donna Final B19.20 Unspecified viral hepatitis C without hepatic coma 04/23/2017 Cornelius,Riana Final B20 Human immunodeficiency virus [HIV] disease 04/23/2017 Shields Donna Final E46 Unspecified protein-calorie malnutrition 04/23/2017 Cornelius,Riana Final E83.39 Other disorders of phosphorus metabolism 04/23/2017 Cornelius,Riana Final E87.1 Hypo-osmolality and hyponatremia 04/23/2017 Cornelius,Riana Final F15.10 Other stimulant abuse, uncomplicated 04/23/2017 Cornelius,Riana Final F17.210 Nicotine dependence, cigarettes, uncomplicated 04/23/2017 Cornelius,Riana Final G62.9 Polyneuropathy, unspecified 04/23/2017 Cornelius,Riana Final I11.0 Hypertensive heart disease with heart failure 04/23/2017 Cornelius,Riana Final 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 04/23/2017 Cornelius,Riana Final I25.2 Old myocardial infarction 04/23/2017 Sweet,, Riana Final I50.22 Chronic systolic (congestive) heart failure 04/23/2017 Sweet,Ripna Final 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, bilateral 04/23/2017 Sweet,Riana Final J44.9 Chronic obstructive pulmonary disease, unspecified 04/23/2017 Sweet,Riana Final K21.9 Gastro-esophageal reflux disease without esophagitis 04/23/2017 Sweet,Riana Final K80.20 Calculus of gallbladder without cholecystitis without obstruction 04/23/2017 Sweet,, Riana Final M48.07 Spinal stenosis, lumbosacral region 04/23/2017 Sweet,, Riana Final M51.27 Other intervertebral disc displacement, lumbosacral region 04/23/2017 Sweet,Riana Final R07.9 Chest pain, unspecified 04/23/2017 Sweet,Riana Final R10.11 Right upper quadrant pain 04/23/2017 Sweet,Riana Final R33.9 Retention of urine, unspecified 04/23/2017 Cornelius,Riana Admitting R53.1 Weakness 04/23/2017 Sweet,Riana Final R74.0 Nonspecific elevation of levels of transaminase and lactic acid dehydrogena 04/23/2017 Cornelius,Riana Final Z59.0 Homelessness 04/24/2017 Cornelius,Riana Final N17.9 Acute kidney failure, unspecified 05/08/2017 Mathias Samuel Admitting B20 05/10/2017 Meier Howard Final B19.20 Unspecified viral hepatitis C without hepatic coma 05/10/2017 Meier Howard Final B20 Human immunodeficiency virus [HIV] disease 05/10/2017 Hardeep,Conor Final F17.210 Nicotine dependence, cigarettes, uncomplicated 05/10/2017 Hardeep,Conor Final F32.9 Major depressive disorder, single episode, unspecified 05/10/2017 Meier Howard Final F41.9 Anxiety disorder, unspecified 05/10/2017 Meier Howard Final I10 Essential (primary) hypertension 05/10/2017 Meier Howard Final I25.2 Old myocardial infarction 05/10/2017 Hardeep,Conor Final J44.1 Chronic obstructive pulmonary disease with (acute) exacerbation 05/10/2017 Meier Howard Final R10.30 Lower abdominal pain, unspecified 05/10/2017 Meier Howard Reason R33.9 Retention of urine, unspecified 05/10/2017 Meier Howard Final R60.9 Edema, unspecified 05/10/2017 Meier Howard Final Z86.73 Personal history of transient ischemic attack (TIA), and cerebral infarctio 05/10/2017 Meier Howard Final Z87.19 Personal history of other diseases of the digestive system 05/17/2017 Pedraza Jennifer Admitting R09.02 05/24/2017 Pedraza Jennifer Final B20 Human immunodeficiency virus [HIV] disease 05/24/2017 Pedraza Jennifer Final F15.10 Other stimulant abuse, uncomplicated 05/24/2017 Pedraza Jennifer Final F17.210 Nicotine dependence, cigarettes, uncomplicated 05/24/2017 Pedraza Jennifer Final F32.9 Major depressive disorder, single episode, unspecified 05/24/2017 Pedraza Jennifer Final G89.29 Other chronic pain 05/24/2017 Pedraza Jennifer Final I10 Essential (primary) hypertension 05/24/2017 Pedraza Jennifer Final 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 05/24/2017 Pedraza Jennifer Final I25.2 Old myocardial infarction 05/24/2017 Pedraza Jennifer Final J44.9 Chronic obstructive pulmonary disease, unspecified 05/24/2017 Pedraza Jennifer Final K21.9 Gastro-esophageal reflux disease without esophagitis 05/24/2017 Pedraza Jennifer Final M54.9 Dorsalgia, unspecified 05/24/2017 Pedraza Jennifer Final R06.09 Other forms of dyspnea 05/24/2017 Pedraza Jennifer Final R07.89 Other chest pain 05/24/2017 Pedraza Jennifer Reason R07.9 Chest pain, unspecified 05/24/2017 Pedraza Jennifer Final R10.13 Epigastric pain 05/24/2017 Pedraza Jennifer Final R39.11 Hesitancy of micturition 05/24/2017 Pedraza Jennifer Final 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 06/01/2017 Mathias Samuel Final B20 Human immunodeficiency virus [HIV] disease 06/01/2017 Mey,Sacha Final F17.210 Nicotine dependence, cigarettes, uncomplicated 06/01/2017 Mey,Sacha Final F32.9 Major depressive disorder, single episode, unspecified 06/01/2017 Mey,Sacha Final I12.9 Hypertensive chronic kidney disease with stage 1 through stage 4 chronic ki 06/01/2017 Mey,Sacha Final 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 06/01/2017 Mey,Sacha Final K21.9 Gastro-esophageal reflux disease without esophagitis 06/01/2017 Mey,Sacha Final N17.9 Acute kidney failure, unspecified 06/01/2017 Mey,Sacha Final N18.9 Chronic kidney disease, unspecified 06/01/2017 Mey,Sacha Admitting R06.02 Shortness of breath 06/01/2017 Mey,Sacha Final Z66 Do not resuscitate 06/01/2017 Mey,Sacha Final Z91.19 Patient''s noncompliance with other medical treatment and regimen 06/01/2017 Mey,Sacha Final J44.9 Chronic obstructive pulmonary disease, unspecified 06/12/2017 Wanda,Gennaro Admitting R41.82 06/15/2017 Petraa,Gennaro Final B19.20 Unspecified viral hepatitis C without hepatic coma 06/15/2017 Petraa,Gennaro Final D63.8 Anemia in other chronic diseases classified elsewhere 06/15/2017 Ndunda,, Gennaro Final D69.6 Thrombocytopenia, unspecified 06/15/2017 Ndunda,, Gennaro Final E87.1 Hypo-osmolality and hyponatremia 06/15/2017 Ndunda,, Gennaro Final E87.2 Acidosis 06/15/2017 Ndunda,, Gennaro Final E87.3 Alkalosis 06/15/2017 Ndunda,Gennaro Final F17.210 Nicotine dependence, cigarettes, uncomplicated 06/15/2017 Ndunda,, Gennaro Final F41.9 Anxiety disorder, unspecified 06/15/2017 Ndunda,Gennaro Final G93.40 Encephalopathy, unspecified 06/15/2017 Ndunda,Gennaro Final I11.0 Hypertensive heart disease with heart failure 06/15/2017 Ndunda,, Gennaro Final I25.2 Old myocardial infarction 06/15/2017 Ndunda,, Gennaro Final I45.81 Long QT syndrome 06/15/2017 Ndunda,, Gennaro Final I50.20 Unspecified systolic (congestive) heart failure 06/15/2017 Ndunda,, Gennaro Final J18.9 Pneumonia, unspecified organism 06/15/2017 Ndunda,, Gennaro Final J44.0 Chronic obstructive pulmonary disease with acute lower respiratory infectio 06/15/2017 Ndunda,, Gennaro Final M62.81 Muscle weakness (generalized) 06/15/2017 Ndunda,, Gennaro Final R40.2410 [place] coma scale score 13-15, unspecified time 06/15/2017 Miyaunda,, Gennaro Final Z21 Asymptomatic human immunodeficiency virus [HIV] infection status 06/15/2017 Miyaunda,, Gennaro Final Z86.73 Personal history of transient ischemic attack (TIA), and cerebral infarctio 06/15/2017 Ndunda,, Gennaro Final A41.9 Sepsis, unspecified organism 06/20/2017 Mynor Michel S F B20 HUMAN IMMUNODEFICIENCY VIRUS [HIV] DISEASE 06/20/2017 Mynor Michel S F D64.9 ANEMIA, UNSPECIFIED 06/20/2017 Mynor Michel S F E87.1 HYPO-OSMOLALITY AND HYPONATREMIA 06/20/2017 Mynor Michel S F E87.6 HYPOKALEMIA 06/20/2017 Mynor Michel S F F17.200 NICOTINE DEPENDENCE, UNSPECIFIED, UNCOMPLICATED 06/20/2017 Mynor Michel S F I13.0 HYP HRT CHR KDNY DIS W HRT FAIL AND STG 1-4/UNSP 06/20/2017 Mynor Michel S F I25.10 ATHSCL HEART DISEASE OF [place] CORONARY ARTERY W/O 06/20/2017 Mynor Michel S F I27.20 PULMONARY HYPERTENSION, UNSPECIFIED 06/20/2017 Mynor Michel S F I45.81 LONG QT SYNDROME 06/20/2017 Mynor Michel S F I50.30 UNSPECIFIED DIASTOLIC (CONGESTIVE) HEART FAILURE 06/20/2017 Mynor Michel S F J44.1 CHRONIC OBSTRUCTIVE PULMONARY DISEASE W (ACUTE) EX 06/20/2017 Mynor Michel S F J96.01 ACUTE RESPIRATORY FAILURE WITH HYPOXIA 06/20/2017 Mynor Michel S F N18.9 CHRONIC KIDNEY DISEASE, UNSPECIFIED 06/20/2017 Mynor Michel S F R19.7 DIARRHEA, UNSPECIFIED 06/20/2017 Mynor Michel S F R62.7 ADULT FAILURE TO THRIVE 06/20/2017 Mynor Michel S F Z86.73 PRSNL HX OF TIA (TIA), AND CEREB INFRC W/O RESID D 07/08/2017 Harriett,Rick Final B19.20 Unspecified viral hepatitis C without hepatic coma 07/08/2017 Harriett,Rick B20 Human immunodeficiency virus [HIV] disease 07/08/2017 Harriett,Rick F17.210 Nicotine dependence, cigarettes, uncomplicated 07/08/2017 Harriett,Rick M79.609 Pain in unspecified limb 07/08/2017 Lorenzana John Reason R06.00 Dyspnea, unspecified 07/08/2017 Harriett,Rick Final W19.XXXA Unspecified fall, initial encounter 07/08/2017 Harriett,Rick Z86.73 Personal history of transient ischemic attack (TIA), and cerebral infarctio 07/10/2017 Wanda,Gennaro Admitting I95.89 07/14/2017 Wanda,Gennaro Final A31.9 Mycobacterial infection, unspecified 07/14/2017 Ndunda,, Gennaro Final B20 Human immunodeficiency virus [HIV] disease 07/14/2017 Miyaunda,, Gennaro Final F17.210 Nicotine dependence, cigarettes, uncomplicated 07/14/2017 Ndunda,, Gennaro Final F32.9 Major depressive disorder, single episode, unspecified 07/14/2017 Ndunda,Gennaro Final I10 Essential (primary) hypertension 07/14/2017 Ndblancaa,Gennaro Final 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 07/14/2017 Miyaunda,Gennaro Final I25.2 Old myocardial infarction 07/14/2017 Petraa,, Gennaro Final 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 07/14/2017 Wanda,Gennaro Reason I95.9 Hypotension, unspecified 07/14/2017 Ndunda,, Gennaro Final J44.1 Chronic obstructive pulmonary disease with (acute) exacerbation 07/14/2017 Ndunda,, Gennaro Final J44.9 Chronic obstructive pulmonary disease, unspecified 07/14/2017 Ndunda,, Gennaro Final J96.01 Acute respiratory failure with hypoxia 07/14/2017 Ndunda,, Gennaro Final M25.551 Pain in right hip 07/14/2017 Ndunda,, Gennaro Final Z86.19 Personal history of other infectious and parasitic diseases 07/14/2017 Ndunda,, Gennaro Final Z86.73 Personal history of transient ischemic attack (TIA), and cerebral infarctio 10/12/2017 Herbert Abdul DO A41.9 SEPSIS, UNSPECIFIED ORGANISM 10/12/2017 Herbert Abdul DO I13.0 HYP HRT CHR KD[place] DIS W HRT FAIL AND STG 1-4/UNSP 10/12/2017 Herbert Abdul DO I25.10 ATHSCL HEART DISEASE OF [place] CORONARY ARTERY W/O 10/12/2017 Herbert Abdul DO I25.2 OLD MYOCARDIAL INFARCTION 10/12/2017 Herbert Abdul DO I45.81 LONG QT SYNDROME 10/12/2017 Herbert Abdul DO I50.30 UNSPECIFIED DIASTOLIC (CONGESTIVE) HEART FAILURE 10/12/2017 Herbert Abdul DO J18.9 PNEUMONIA, UNSPECIFIED ORGANISM 10/12/2017 Herbert Abdul DO J44.1 CHRONIC OBSTRUCTIVE PULMONARY DISEASE W (ACUTE) EX 10/12/2017 Herbert Abdul DO J45.909 UNSPECIFIED ASTHMA, UNCOMPLICATED 10/12/2017 Herbert Abdul DO A [place] J96.01 ACUTE RESPIRATORY FAILURE WITH HYPOXIA 10/12/2017 Herbert Abdul DO N17.9 ACUTE KIDNEY FAILURE, UNSPECIFIED 10/12/2017 Herbert Abdul DO A [place] N18.9 CHRONIC KIDNEY DISEASE, UNSPECIFIED 10/12/2017 Herbert Abdul DO A Adrienne R06.02 SHORTNESS OF BREATH 10/12/2017 Herbert Abdul DO Z21 ASYMPTOMATIC HUMAN IMMUNODEFICIENCY VIRUS INFECTIO 10/12/2017 Herbert Abdul DO Z86.73 PRSNL HX OF TIA (TIA), AND CEREB INFRC W/O RESID D 10/12/2017 Franko FOSTER, Herbert Aguilar F Z91.14 PATIENT'S OTHER NONCOMPLIANCE WITH MEDICATION CHERYL Procedures Code Description Performed By Performed On 5T0V27S Introduction of Anti- inflammatory into Spinal Canal, Percutaneous Approach 04/15/2017 <section xmlns="urn:[email or web address]-org:v3" xmlns:xsi="[email or web address]/ XMLSchema-instance"> <templateId root="[email or web address]" /> < templateId root="[id number]" /> <code codeSystemName= "LOINC" codeSystem="[id number]" code="15758-4" displayName="Results" /> <title>Results</title> <text> <table> <thead> <tr> <th>Test</th> <th>Result</th> <th>Range</th> </tr> </thead> <tbody> <tr> <th colspan="10">CBC W/DIFF - 04/27 03:30</th> </tr> <tr> <td>COMMENT</td> <td> REVIEWED </td> <td /> </tr> <tr> <td>EOSINOPHIL #</td> <td>0.8 k/cumm</td> <td>0.1-0.5</td> </tr> <tr> <td>EOSINOPHIL %</td> <td>16 %</td> < td>2-4</td> </tr> <tr> <td>GRANULOCYTE #</td> < td>2.0 k/cumm</td> <td>2.0-9.0</td> </tr> <tr> < td>GRANULOCYTE %</td> <td>41 %</td> <td>50-75</td> </tr> <tr> <td>LYMPHOCYTE #</td> <td>1.2 k/cumm</ td> <td>1.0-4.0</td> </tr> <tr> <td>LYMPHOCYTE & #37;</td> <td>24 %</td> <td>20-30</td> </tr> <tr> <td>MEAN CELL HGB</td> <td>30.3 pg</td> <td> 27.0-33.0</td> </tr> <tr> <td>MEAN CELL HGB CONCENTRATION </td> <td>35.3 g/dL</td> <td>32.0-37.0</td> </tr> <tr> <td>MEAN CELL VOLUME</td> <td>86.0 fl</td> < td>80.0-100.0</td> </tr> <tr> <td>MONOCYTE #</td> <td>0.9 k/cumm</td> <td>0.1-1.0</td> </tr> <tr> <td>MONOCYTE %</td> <td>19 %</td> <td>4-6</td> </tr> <tr> <td>RED BLOOD CELL</td> <td>3.99 m/cumm </td> <td>4.00-6.00</td> </tr> <tr> <td>RED CELL DISTRIBUTION WIDTH</td> <td>14.8 %</td> <td>11.0-15.6 </td> </tr> <tr> <td>WHITE BLOOD CELL</td> <td> 4.9 k/cumm</td> <td>5.0-10.0</td> </tr> <tr> <td >HEMOGLOBIN</td> <td>12.1 gm/dL</td> <td>14.0-18.0</td> </tr> <tr> <td>HEMATOCRIT</td> <td>34.3 %</td> <td>40.0-54.0</td> </tr> <tr> <td>PLATELET COUNT< /td> <td>154 k/cumm</td> <td>150-450</td> </tr> <tr> <th colspan="10">METABOLIC PANEL, [facility] - 04/27/16 03:30</th> </tr> <tr> <td>POTASSIUM</td> <td>4.2 mmol/L</td > <td>3.5-5.3</td> </tr> <tr> <td>EST GFR (MDRD) </td> <td>> 60 mL/min</td> <td>> 59</td> </tr> <tr> <td>ANION GAP</td> <td>12 mmol/L</td> <td> 5-15</td> </tr> <tr> <td>EST CrCl (CG)</td> <td> > 60 mL/min</td> <td>> 59</td> </tr> <tr> <td>GLUCOSE</td> <td>109 mg/dL</td> <td>70-99</td> </tr > <tr> <td>CALCIUM</td> <td>8.1 mg/dL</td> <td >8.5-10.1</td> </tr> <tr> <td>BLOOD UREA NITROGEN</td> <td>20 mg/dL</td> <td>7-20</td> </tr> <tr> <td>CREATININE</td> <td>1.2 mg/dL</td> <td>0.7-1.3</td> </tr> <tr> <td>SODIUM</td> <td>136 mmol/L</td> <td>135-148</td> </tr> <tr> <td>CHLORIDE</td> <td>102 mmol/L</td> <td>98-110</td> </tr> <tr> <td>AST/SGOT</td> <td>62 Units/L</td> <td>10-37</td> </tr> <tr> <td>ALT/SGPT</td> <td>68 Units/L</td> <td>< 66</td> </tr> <tr> <td>CARBON DIOXIDE< /td> <td>22 mmol/L</td> <td>21-32</td> </tr> <tr > <td>TOTAL PROTEIN</td> <td>6.9 gm/dL</td> <td>6.4- 8.2</td> </tr> <tr> <td>ALBUMIN</td> <td>3.2 gm/ dL</td> <td>3.4-5.0</td> </tr> <tr> <td>BILI TOTAL</td> <td>0.4 mg/dL</td> <td>0.0-1.0</td> </tr> <tr> <td>ALKALINE PHOSPHATASE TOTAL</td> <td>89 IU/L</td > <td>45-117</td> </tr> <tr> <th colspan="10"> Troponin - 05/06/17 20:50</th> </tr> <tr> <td>Troponin</ td> <td><0.05 ng/mL</td> <td><0.06</td> </tr> <tr> <th colspan="10">CBC With Platelet and Differential - 21:06</th> </tr> <tr> <td>Absolute Basophils</td> <td>0.04 10*3/uL</td> <td>0.00-0.20</td> </tr> <tr > <td>Absolute Eosinophils</td> <td>0.57 10*3/uL</td> <td>0.00-0.50</td> </tr> <tr> <td>Absolute Lymphocytes< /td> <td>1.82 10*3/uL</td> <td>0.80-3.30</td> </tr> <tr> <td>Absolute Monocytes</td> <td>0.84 10*3/uL</td> <td>0.30-1.00</td> </tr> <tr> <td>Absolute Neutrophils</td> <td>4.22 10*3/uL</td> <td>1.90-7.00</td> </tr> <tr> <td>Basophils</td> <td>1 %</td> <td>0-2</td> </tr> <tr> <td>Eosinophils</td> <td>8 %</td> <td>0-4</td> </tr> <tr> <td >HCT</td> <td>39.0 %</td> <td>42.0-52.0</td> </tr> <tr> <td>HGB</td> <td>13.0 g/dL</td> <td>14.0 -18.0</td> </tr> <tr> <td>Immature Granulocytes</td> <td>0.3 %</td> <td>0.0-1.0</td> </tr> <tr> <td>Lymphocytes</td> <td>24 %</td> <td>20-46</td> </tr> <tr> <td>MCH</td> <td>30.9 pg</td> <td>27.0-32.0</td> </tr> <tr> <td>MCHC</td> < td>33.3 g/dL</td> <td>32.0-36.0</td> </tr> <tr> <td>MCV</td> <td>92.6 fL</td> <td>82.0-99.0</td> </tr> <tr> <td>Monocytes</td> <td>11 %</td> <td >4-11</td> </tr> <tr> <td>MPV</td> <td>10.4 fL</ td> <td>9.4-12.3</td> </tr> <tr> <td>Neutrophils </td> <td>56 %</td> <td>51-75</td> </tr> <tr > <td>Nucleated RBC Automated</td> <td>0.0 /100 WBC</td> <td /> </tr> <tr> <td>Platelet Count</td> < td>190 K/uL</td> <td>150-400</td> </tr> <tr> <td >RBC</td> <td>4.21 10*6/uL</td> <td>4.60-6.20</td> </tr > <tr> <td>RDW</td> <td>14.5 %</td> <td> 11.5-14.5</td> </tr> <tr> <td>WBC</td> <td>7.5 K /uL</td> <td>4.8-10.8</td> </tr> <tr> <th colspan="10">Urinalysis with reflex microscopic - 05/06/17 21:06</th> </ tr> <tr> <td>Appearance</td> <td>Clear NA</td> <td /> </tr> <tr> <td>Bilirubin</td> <td> Negative NA</td> <td>Negative</td> </tr> <tr> < td>Blood</td> <td>Negative NA</td> <td>Negative</td> </ tr> <tr> <td>Color</td> <td>Yellow NA</td> < td /> </tr> <tr> <td>Glucose, Urine</td> <td> Negative </td> <td>Negative</td> </tr> <tr> <td> Ketones</td> <td>Negative </td> <td>Negative</td> </tr > <tr> <td>Leukocyte Esterase</td> <td>Negative NA</td > <td>Negative</td> </tr> <tr> <td>Nitrites</td > <td>Negative NA</td> <td>Negative</td> </tr> < tr> <td>pH</td> <td>6.0 NA</td> <td>5.0-8.0</td> </tr> <tr> <td>Protein</td> <td>Pos 1+ NA</td> <td>Negative</td> </tr> <tr> <td>Specific [place]</ td> <td>1.020 NA</td> <td>1.003-1.030</td> </tr> <tr> <td>UA Collection type</td> <td>Clean Catch NA</td> <td /> </tr> <tr> <td>Urobilinogen</td> < td>4.0 mg/dL</td> <td><1.0</td> </tr> <tr> < colspan="10">Urine Microscopic - 05/06/17 21:06</th> </tr> <tr > <td>Bacteria</td> <td>None Seen NA</td> <td /> </tr> <tr> <td>Epithelial Cells</td> <td>None Seen /HPF</td> <td /> </tr> <tr> <td>RBC, Urine</td> <td>0 /HPF</td> <td>0-2</td> </tr> <tr> <td>Urine Mucus</td> <td>Present NA</td> <td /> </tr > <tr> <td>WBC, Urine</td> <td>0 /HPF</td> <td >0-4</td> </tr> <tr> < colspan="10">Basic Metabolic Panel (BMP) - 05/06/17 21:06</th> </tr> <tr> <td>Anion Gap</td> <td>7 mEq/L</td> <td>3-20</td> </tr> < tr> <td>BUN</td> <td>28 mg/dL</td> <td>4-20</td> </tr> <tr> <td>Calcium</td> <td>8.7 mg/dL</td> <td>8.6-10.0</td> </tr> <tr> <td>Chloride</td> <td>105 mEq/L</td> <td>99-109</td> </tr> <tr> <td>CO2</td> <td>22 mEq/L</td> <td>22-32</td> </tr > <tr> <td>Creatinine</td> <td>1.02 mg/dL</td> <td>0.64-1.27</td> </tr> <tr> <td>Glucose</td> <td>94 mg/dL</td> <td>70-100</td> </tr> <tr> < td>Potassium</td> <td>4.9 mEq/L</td> <td>3.6-5.1</td> < /tr> <tr> <td>Sodium</td> <td>134 mEq/L</td> < td>136-144</td> </tr> <tr> < colspan="10">eGFR - 21:06</th> </tr> <tr> <td>eGFR</td> <td>> 60 mL/min</td> <td>>60</td> </tr> <tr> <th colspan="10">Protime (INR) - 05/06/17 21:06</th> </tr> <tr> <td>INR</td> <td>0.8 NA</td> <td>0.9-1.2</td> </tr > <tr> <th colspan="10">Hepatic Function Panel - 05/06/17 21:06< /th> </tr> <tr> <td>Albumin</td> <td>3.6 g/dL</ td> <td>3.5-4.8</td> </tr> <tr> <td>Alkaline Phosphatase</td> <td>96 U/L</td> <td>26-104</td> </tr> <tr> <td>ALT (SGPT)</td> <td>92 U/L</td> <td> 17-63</td> </tr> <tr> <td>AST (SGOT)</td> <td> 77 U/L</td> <td>15-41</td> </tr> <tr> <td> Bilirubin Direct</td> <td>0.3 mg/dL</td> <td>0.0-0.2</td> </tr> <tr> <td>Bilirubin Indirect</td> <td>0.5 mg/ dL</td> <td>0.0-1.0</td> </tr> <tr> <td> Bilirubin Total</td> <td>0.8 mg/dL</td> <td>0.2-1.2</td> </tr> <tr> <td>Protein</td> <td>6.7 g/dL</td> <td>6.1-7.9</td> </tr> <tr> <th colspan="10">CBC With Platelet and Differential - 05/08/17 19:21</th> </tr> <tr> <td>Absolute Basophils</td> <td>0.06 10*3/uL</td> <td> 0.00-0.20</td> </tr> <tr> <td>Absolute Eosinophils</td> <td>0.80 10*3/uL</td> <td>0.00-0.50</td> </tr> < tr> <td>Absolute Lymphocytes</td> <td>2.56 10*3/uL</td> <td>0.80-3.30</td> </tr> <tr> <td>Absolute Monocytes< /td> <td>1.13 10*3/uL</td> <td>0.30-1.00</td> </tr> <tr> <td>Absolute Neutrophils</td> <td>4.68 10*3/uL</td> <td>1.90-7.00</td> </tr> <tr> <td>Basophils</td > <td>1 %</td> <td>0-2</td> </tr> <tr> <td>Eosinophils</td> <td>9 %</td> <td>0-4</td> </tr> <tr> <td>HCT</td> <td>47.5 %</td> <td>42.0-52.0</td> </tr> <tr> <td>HGB</td> <td> 16.2 g/dL</td> <td>14.0-18.0</td> </tr> <tr> <td >Immature Granulocytes</td> <td>0.5 %</td> <td>0.0-1.0</td > </tr> <tr> <td>Lymphocytes</td> <td>28 %</ td> <td>20-46</td> </tr> <tr> <td>MCH</td> <td>31.3 pg</td> <td>27.0-32.0</td> </tr> <tr> <td>MCHC</td> <td>34.1 g/dL</td> <td>32.0-36.0</td> </tr> <tr> <td>MCV</td> <td>91.9 fL</td> < td>82.0-99.0</td> </tr> <tr> <td>Monocytes</td> <td>12 %</td> <td>4-11</td> </tr> <tr> <td> MPV</td> <td>10.9 fL</td> <td>9.4-12.3</td> </tr> <tr> <td>Neutrophils</td> <td>51 %</td> <td>51 -75</td> </tr> <tr> <td>Nucleated RBC Automated</td> <td>0.0 /100 WBC</td> <td /> </tr> <tr> < td>Platelet Count</td> <td>218 K/uL</td> <td>150-400</td> </tr> <tr> <td>RBC</td> <td>5.17 10*6/uL</td> <td>4.60-6.20</td> </tr> <tr> <td>RDW</td> <td>14.2 %</td> <td>11.5-14.5</td> </tr> <tr> <td>WBC</td> <td>9.3 K/uL</td> <td>4.8-10.8</td> </ tr> <tr> <th colspan="10">Comprehensive Metabolic Panel (CMP) - 05/08/17 19:21</th> </tr> <tr> <td>Albumin</td> <td>4.3 g/dL</td> <td>3.5-4.8</td> </tr> <tr> < td>Alkaline Phosphatase</td> <td>109 U/L</td> <td>26-104</td> </tr> <tr> <td>ALT (SGPT)</td> <td>113 U/L</td > <td>17-63</td> </tr> <tr> <td>Anion Gap</td> <td>10 mEq/L</td> <td>3-20</td> </tr> <tr> <td>AST (SGOT)</td> <td>94 U/L</td> <td>15-41</td> </tr> <tr> <td>Bilirubin Total</td> <td>0.6 mg/dL</td > <td>0.2-1.2</td> </tr> <tr> <td>BUN</td> <td>35 mg/dL</td> <td>4-20</td> </tr> <tr> <td>Calcium</td> <td>9.7 mg/dL</td> <td>8.6-10.0</td> < /tr> <tr> <td>Chloride</td> <td>98 mEq/L</td> <td>99-109</td> </tr> <tr> <td>CO2</td> <td>24 mEq/L</td> <td>22-32</td> </tr> <tr> <td> Creatinine</td> <td>1.11 mg/dL</td> <td>0.64-1.27</td> </tr> <tr> <td>Globulin</td> <td>4.0 g/dL</td> <td>1.9-4.3</td> </tr> <tr> <td>Glucose</td> < td>84 mg/dL</td> <td>70-100</td> </tr> <tr> <td> Potassium</td> <td>5.0 mEq/L</td> <td>3.6-5.1</td> </tr > <tr> <td>Protein</td> <td>8.3 g/dL</td> <td> 6.1-7.9</td> </tr> <tr> <td>Sodium</td> <td>132 mEq/L</td> <td>136-144</td> </tr> <tr> <th colspan="10">eGFR - 05/08/17 19:21</th> </tr> <tr> <td> eGFR</td> <td>>60 mL/min</td> <td>>60</td> </tr> <tr> <th colspan="10">Troponin - 05/08/17 19:21</th> </ tr> <tr> <td>Troponin</td> <td><0.05 ng/mL</td> <td><0.06</td> </tr> <tr> <th colspan="10">B- Type Natriuretic Peptide - 05/08/17 19:21</th> </tr> <tr> <td>B-Type Natriuretic Peptide</td> <td>46 pg/mL</td> <td>0- 99</td> </tr> <tr> <th colspan="10">Lactic Acid NPT - 21:52</th> </tr> <tr> <td>Lactic Acid NPT</td> <td>1.5 mEq/L</td> <td>0.5-2.2</td> </tr> <tr> <th colspan="10">Blood Gases, Arterial (RT) - 05/09/17 00:50</th> < /tr> <tr> <td>Arterial Base Excess</td> <td>-3 NA</td> <td>0-2</td> </tr> <tr> <td>Arterial Bicarbonate</td> <td>21 mEq/L</td> <td>22-26</td> </tr > <tr> <td>Arterial O2 Saturation</td> <td>91.5 %</ td> <td>90.0-97.0</td> </tr> <tr> <td>Arterial PCO2</td> <td>35 mmHg</td> <td>35-45</td> </tr> <tr> <td>Arterial PH</td> <td>7.40 NA</td> <td>7.35- 7.45</td> </tr> <tr> <td>Arterial PO2</td> <td> 63 mmHg</td> <td>80-100</td> </tr> <tr> <td> Arterial LPM</td> <td>3.0 L/min</td> <td /> </tr> <tr> <td>O2 Panel</td> <td>nc </td> <td /> </tr> <tr> <td>Spec Site</td> <td>A. radialis l. </td> <td /> </tr> <tr> < colspan="10">Urinalysis with reflex microscopic - 05/09/17 01:50</th> </tr> <tr> <td>Appearance</td> <td>Clear NA</td> <td /> </tr> <tr> <td>Bilirubin</td> <td>Negative NA</td> <td> Negative</td> </tr> <tr> <td>Blood</td> <td> Negative NA</td> <td>Negative</td> </tr> <tr> < td>Color</td> <td>Yellow NA</td> <td /> </tr> < tr> <td>Glucose, Urine</td> <td>Negative </td> <td> Negative</td> </tr> <tr> <td>Ketones</td> <td> Negative </td> <td>Negative</td> </tr> <tr> <td> Leukocyte Esterase</td> <td>Negative NA</td> <td>Negative</td > </tr> <tr> <td>Nitrites</td> <td>Negative NA</ td> <td>Negative</td> </tr> <tr> <td>pH</td> <td>5.0 NA</td> <td>5.0-8.0</td> </tr> <tr> <td>Protein</td> <td>Negative NA</td> <td>Negative</td> </tr> <tr> <td>Specific [place]</td> <td>1.010 NA </td> <td>1.003-1.030</td> </tr> <tr> <td>UA Collection type</td> <td>Webb NA</td> <td /> </tr> <tr> <td>Urobilinogen</td> <td>Negative mg/dL</td> <td><1.0</td> </tr> <tr> < colspan="10"> Osmolality, Urine - 05/09/17 01:50</th> </tr> <tr> <td> Osmolality, Urine</td> <td>431 mOsm/kg</td> <td>38-1400</td> </tr> <tr> < colspan="10">Urine Drug Screen - 05/09/17 01:50</th> </tr> <tr> <td>Amph/Meth/Ecstasy</td> <td>Negative NA</td> <td /> </tr> <tr> <td> Barbiturates</td> <td>Negative NA</td> <td /> </tr> <tr> <td>Benzodiazepine</td> <td>Negative NA</td> <td /> </tr> <tr> <td>Cannabinoid</td> <td> Negative NA</td> <td /> </tr> <tr> <td>Cocaine</ td> <td>Negative NA</td> <td /> </tr> <tr> <td>EDDP (Methadone met.)</td> <td>Negative NA</td> <td / > </tr> <tr> <td>Opiate</td> <td>Negative NA</td > <td /> </tr> <tr> <td>Phencyclidine (PCP)</td > <td>Negative NA</td> <td /> </tr> <tr> < colspan="10">Sodium Random Urine - 05/09/17 01:50</th> </tr> <tr> <td>Sodium Random Urine</td> <td>71 mEq/L</td> <td /> </tr> <tr> <th colspan="10">Creatinine Random Urine - 05/09/17 01:50</th> </tr> <tr> <td>Creatinine Random Urine</td> <td>40 mg/dL</td> <td /> </tr> <tr> <th colspan="10">Urea Nitrogen Random - 05/09/17 01:50</th> </tr> <tr> <td>Urea Nitrogen Random</td> <td>615 mg/dL</td> <td /> </tr> <tr> <th colspan="10"> Histoplasma Ag, U - 05/09/17 01:50</th> </tr> <tr> <td> Histoplasma Ag, U</td> <td>Negative NA</td> <td>Negative</td> </tr> <tr> <td>Histoplasma Ag, U Value</td> <td >0.00 ng/mL</td> <td /> </tr> <tr> <th colspan= "10">Comprehensive Metabolic Panel (CMP) - 05/09/17 06:46</th> </tr> <tr> <td>Albumin</td> <td>3.7 g/dL</td> <td>3.5- 4.8</td> </tr> <tr> <td>Alkaline Phosphatase</td> <td>101 U/L</td> <td>26-104</td> </tr> <tr> < td>ALT (SGPT)</td> <td>93 U/L</td> <td>17-63</td> </tr > <tr> <td>Anion Gap</td> <td>9 mEq/L</td> <td >3-20</td> </tr> <tr> <td>AST (SGOT)</td> <td> 77 U/L</td> <td>15-41</td> </tr> <tr> <td> Bilirubin Total</td> <td>0.7 mg/dL</td> <td>0.2-1.2</td> </tr> <tr> <td>BUN</td> <td>38 mg/dL</td> < td>4-20</td> </tr> <tr> <td>Calcium</td> <td> 9.0 mg/dL</td> <td>8.6-10.0</td> </tr> <tr> <td> Chloride</td> <td>96 mEq/L</td> <td>99-109</td> </tr> <tr> <td>CO2</td> <td>25 mEq/L</td> <td>22-32< /td> </tr> <tr> <td>Creatinine</td> <td>1.30 mg/ dL</td> <td>0.64-1.27</td> </tr> <tr> <td> Globulin</td> <td>3.5 g/dL</td> <td>1.9-4.3</td> </tr> <tr> <td>Glucose</td> <td>135 mg/dL</td> <td> 70-100</td> </tr> <tr> <td>Potassium</td> <td> 4.8 mEq/L</td> <td>3.6-5.1</td> </tr> <tr> <td> Protein</td> <td>7.2 g/dL</td> <td>6.1-7.9</td> </tr> <tr> <td>Sodium</td> <td>130 mEq/L</td> <td> 136-144</td> </tr> <tr> < colspan="10">Phosphorus - 06:46</th> </tr> <tr> <td>Phosphorus</td> <td>5.9 mg/dL</td> <td>2.4-4.7</td> </tr> <tr> < colspan="10">Magnesium - 05/09/17 06:46</th> </tr> <tr> <td>Magnesium</td> <td>1.8 mg/dL</td> <td>1.8-2.5</td> </tr> <tr> <th colspan="10">LDH - 05/09/17 06:46</th> </tr> <tr> <td>LDH</td> <td>144 U/L</td> <td >98-192</td> </tr> <tr> <th colspan="10">Acetaminophen - 05/09/17 06:46</th> </tr> <tr> <td>Acetaminophen</td> <td><10 mcg/mL</td> <td>10-30</td> </tr> <tr> <th colspan="10">eGFR - 05/09/17 06:46</th> </tr> <tr> <td>eGFR</td> <td>59 mL/min</td> <td>>60</td> </tr> <tr> <th colspan="10">Osmolality - 05/09/17 06:46</th> </tr> <tr> <td>Osmolality</td> <td>291 mOsm/kg< /td> <td>275-300</td> </tr> <tr> <th colspan="10 ">Cortisol AM - 05/09/17 06:46</th> </tr> <tr> <td> Cortisol AM</td> <td>6 ug/dL</td> <td>7-18</td> </tr> <tr> <th colspan="10">TSH - 05/09/17 06:46</th> </tr> <tr> <td>TSH</td> <td>1.69 uIU/mL</td> <td>0.35- 4.94</td> </tr> <tr> <th colspan="10">Hepatitis Panel - 05/09/17 06:46</th> </tr> <tr> <td>Hepatitis A Antibody IGM</td> <td>Negative </td> <td /> </tr> <tr> <td>Hepatitis B Surface Antigen</td> <td>Negative </td> <td /> </tr> <tr> <th colspan="10">CBC With Platelet and Differential - 05/10/17 05:28</th> </tr> <tr> <td> Absolute Basophils</td> <td>0.00 10*3/uL</td> <td>0.00-0.20</ td> </tr> <tr> <td>Absolute Eosinophils</td> <td >0.00 10*3/uL</td> <td>0.00-0.50</td> </tr> <tr> <td>Absolute Lymphocytes</td> <td>0.86 10*3/uL</td> <td>0.80 -3.30</td> </tr> <tr> <td>Absolute Monocytes</td> <td>0.53 10*3/uL</td> <td>0.30-1.00</td> </tr> <tr> <td>Absolute Neutrophils</td> <td>7.71 10*3/uL</td> < td>1.90-7.00</td> </tr> <tr> <td>Basophils</td> <td>0 %</td> <td>0-2</td> </tr> <tr> <td> Eosinophils</td> <td>0 %</td> <td>0-4</td> </tr> <tr> <td>HCT</td> <td>39.8 %</td> <td>42.0- 52.0</td> </tr> <tr> <td>HGB</td> <td>13.8 g/dL< /td> <td>14.0-18.0</td> </tr> <tr> <td>Immature Granulocytes</td> <td>0.5 %</td> <td>0.0-1.0</td> < /tr> <tr> <td>Lymphocytes</td> <td>9 %</td> <td>20-46</td> </tr> <tr> <td>MCH</td> <td> 30.7 pg</td> <td>27.0-32.0</td> </tr> <tr> <td> MCHC</td> <td>34.7 g/dL</td> <td>32.0-36.0</td> </tr> <tr> <td>MCV</td> <td>88.4 fL</td> <td>82.0- 99.0</td> </tr> <tr> <td>Monocytes</td> <td>6 &# 37;</td> <td>4-11</td> </tr> <tr> <td>MPV</td> <td>11.1 fL</td> <td>9.4-12.3</td> </tr> <tr> <td>Neutrophils</td> <td>84 %</td> <td>51-75</td> </tr> <tr> <td>Nucleated RBC Automated</td> <td >0.0 /100 WBC</td> <td /> </tr> <tr> <td> Platelet Count</td> <td>199 K/uL</td> <td>150-400</td> </tr> <tr> <td>RBC</td> <td>4.50 10*6/uL</td> <td>4.60-6.20</td> </tr> <tr> <td>RDW</td> <td> 13.3 %</td> <td>11.5-14.5</td> </tr> <tr> < td>WBC</td> <td>9.2 K/uL</td> <td>4.8-10.8</td> </tr> <tr> <th colspan="10">Phosphorus - 05/10/17 05:28</th> </ tr> <tr> <td>Phosphorus</td> <td>5.2 mg/dL</td> <td>2.4-4.7</td> </tr> <tr> <th colspan="10"> Magnesium - 05/10/17 05:28</th> </tr> <tr> <td>Magnesium< /td> <td>1.9 mg/dL</td> <td>1.8-2.5</td> </tr> < tr> <th colspan="10">Comprehensive Metabolic Panel (CMP) - 05/10/17 05: 28</th> </tr> <tr> <td>Albumin</td> <td>3.6 g/dL </td> <td>3.5-4.8</td> </tr> <tr> <td>Alkaline Phosphatase</td> <td>96 U/L</td> <td>26-104</td> </tr> <tr> <td>ALT (SGPT)</td> <td>77 U/L</td> <td> 17-63</td> </tr> <tr> <td>Anion Gap</td> <td>10 mEq/L</td> <td>3-20</td> </tr> <tr> <td>AST ( SGOT)</td> <td>49 U/L</td> <td>15-41</td> </tr> <tr> <td>Bilirubin Total</td> <td>0.5 mg/dL</td> <td> 0.2-1.2</td> </tr> <tr> <td>BUN</td> <td>58 mg/ dL</td> <td>4-20</td> </tr> <tr> <td>Calcium</td > <td>9.1 mg/dL</td> <td>8.6-10.0</td> </tr> <tr > <td>Chloride</td> <td>97 mEq/L</td> <td>99-109</td > </tr> <tr> <td>CO2</td> <td>22 mEq/L</td> <td>22-32</td> </tr> <tr> <td>Creatinine</td> <td>1.41 mg/dL</td> <td>0.64-1.27</td> </tr> <tr> <td>Globulin</td> <td>3.6 g/dL</td> <td>1.9-4.3</td> </tr> <tr> <td>Glucose</td> <td>114 mg/dL</td> <td>70-100</td> </tr> <tr> <td>Potassium</td> <td>5.6 mEq/L</td> <td>3.6-5.1</td> </tr> <tr> <td>Protein</td> <td>7.2 g/dL</td> <td>6.1-7.9</td> </tr> <tr> <td>Sodium</td> <td>129 mEq/L</td> <td>136-144</td> </tr> <tr> <th colspan="10">eGFR - 05/10/17 05:28</th> </tr> <tr> <td>eGFR</td> < td>54 mL/min</td> <td>>60</td> </tr> <tr> < th colspan="10">Basic Metabolic Panel (BMP) - 05/10/17 15:30</th> </tr> <tr> <td>Anion Gap</td> <td>8 mEq/L</td> <td>3 -20</td> </tr> <tr> <td>BUN</td> <td>66 mg/dL</ td> <td>4-20</td> </tr> <tr> <td>Calcium</td> <td>8.7 mg/dL</td> <td>8.6-10.0</td> </tr> <tr> <td>Chloride</td> <td>99 mEq/L</td> <td>99-109</td> </tr> <tr> <td>CO2</td> <td>20 mEq/L</td> <td>22-32</td> </tr> <tr> <td>Creatinine</td> <td>1.71 mg/dL</td> <td>0.64-1.27</td> </tr> <tr> <td>Glucose</td> <td>145 mg/dL</td> <td>70-100</td> </tr> <tr> <td>Potassium</td> <td>5.8 mEq/L</td> <td>3.6-5.1</td> </tr> <tr> <td>Sodium</td> <td>127 mEq/L</td> <td>136-144</td> </tr> <tr> < colspan="10">eGFR - 05/10/17 15:30</th> </tr> <tr> <td>eGFR</td> <td>43 mL/min</td> <td>>60</td> </ tr> <tr> <th colspan="10">Urine Electrolytes, Random - 05/10/17 20:08</th> </tr> <tr> <td>Chloride Random Urine</td> <td>37 mEq/L</td> <td /> </tr> <tr> <td> Potassium Random Urine</td> <td>57 mEq/L</td> <td /> </ tr> <tr> <td>Sodium Random Urine</td> <td>61 mEq/L</td > <td /> </tr> <tr> < colspan="10">Creatinine Random Urine - 05/10/17 20:08</th> </tr> <tr> <td> Creatinine Random Urine</td> <td>64 mg/dL</td> <td /> < /tr> <tr> < colspan="10">Urinalysis with reflex microscopic - 05/10/17 20:08</th> </tr> <tr> <td>Appearance</td> <td>Cloudy NA</td> <td /> </tr> <tr> <td> Bilirubin</td> <td>Negative NA</td> <td>Negative</td> < /tr> <tr> <td>Blood</td> <td>Negative NA</td> <td>Negative</td> </tr> <tr> <td>Color</td> <td> Yellow NA</td> <td /> </tr> <tr> <td>Glucose, Urine</td> <td>Negative </td> <td>Negative</td> </tr> <tr> <td>Ketones</td> <td>Negative </td> <td> Negative</td> </tr> <tr> <td>Leukocyte Esterase</td> <td>Pos 1+ NA</td> <td>Negative</td> </tr> <tr> <td>Nitrites</td> <td>Negative NA</td> <td>Negative</td > </tr> <tr> <td>pH</td> <td>5.0 NA</td> <td>5.0-8.0</td> </tr> <tr> <td>Protein</td> <td>Negative NA</td> <td>Negative</td> </tr> <tr> <td>Specific [place]</td> <td>1.020 NA</td> <td>1.003-1.030 </td> </tr> <tr> <td>UA Collection type</td> <td >Clean Catch NA</td> <td /> </tr> <tr> <td> Urobilinogen</td> <td>Negative mg/dL</td> <td><1.0</td> </tr> <tr> <th colspan="10">Urine Microscopic - 05/10/17 20 :08</th> </tr> <tr> <td>Bacteria</td> <td>Rare NA</td> <td /> </tr> <tr> <td>Crystals</td> <td>Uric Acid NA</td> <td /> </tr> <tr> < td>Epithelial Cells</td> <td>0 /HPF</td> <td /> </tr> <tr> <td>Hyaline Casts</td> <td>1 /LPF</td> < td>0-3</td> </tr> <tr> <td>RBC, Urine</td> <td> None seen /HPF</td> <td>0-2</td> </tr> <tr> <td> Urine Mucus</td> <td>Present NA</td> <td /> </tr> <tr> <td>WBC, Urine</td> <td>5 /HPF</td> <td>0-4</ td> </tr> <tr> <th colspan="10">Potassium - 05/10/17 21: 13</th> </tr> <tr> <td>Potassium</td> <td>5.6 mEq/L</td> <td>3.6-5.1</td> </tr> <tr> <th colspan="10">Glucose NPT - 05/10/17 23:21</th> </tr> <tr> <td>Glucose NPT</td> <td>98 mg/dL</td> <td>70-100</td> </tr> <tr> <th colspan="10">CBC With Platelet No Differential - 05/11/17 06:53</th> </tr> <tr> <td>HCT</td > <td>39.3 %</td> <td>42.0-52.0</td> </tr> < tr> <td>HGB</td> <td>13.5 g/dL</td> <td>14.0-18.0</td > </tr> <tr> <td>MCH</td> <td>30.7 pg</td> <td>27.0-32.0</td> </tr> <tr> <td>MCHC</td> <td>34.4 g/dL</td> <td>32.0-36.0</td> </tr> <tr> <td>MCV</td> <td>89.3 fL</td> <td>82.0-99.0</td> </ tr> <tr> <td>MPV</td> <td>10.4 fL</td> <td>9.4 -12.3</td> </tr> <tr> <td>Platelet Count</td> < td>211 K/uL</td> <td>150-400</td> </tr> <tr> <td >RBC</td> <td>4.40 10*6/uL</td> <td>4.60-6.20</td> </tr > <tr> <td>RDW</td> <td>13.6 %</td> <td> 11.5-14.5</td> </tr> <tr> <td>WBC</td> <td>15.6 K/uL</td> <td>4.8-10.8</td> </tr> <tr> <th colspan="10">Renal Function Panel - 05/11/17 06:53</th> </tr> <tr > <td>Albumin</td> <td>3.5 g/dL</td> <td>3.5-4.8</td > </tr> <tr> <td>Anion Gap</td> <td>5 mEq/L</td > <td>3-20</td> </tr> <tr> <td>BUN</td> <td>57 mg/dL</td> <td>4-20</td> </tr> <tr> <td >Calcium</td> <td>9.1 mg/dL</td> <td>8.6-10.0</td> </tr > <tr> <td>Chloride</td> <td>100 mEq/L</td> < td>99-109</td> </tr> <tr> <td>CO2</td> <td>23 mEq/L</td> <td>22-32</td> </tr> <tr> <td> Creatinine</td> <td>1.51 mg/dL</td> <td>0.64-1.27</td> </tr> <tr> <td>Glucose</td> <td>105 mg/dL</td> <td>70-100</td> </tr> <tr> <td>Phosphorus</td> <td>4.9 mg/dL</td> <td>2.4-4.7</td> </tr> <tr> <td>Potassium</td> <td>5.9 mEq/L</td> <td>3.6-5.1</td> </tr> <tr> <td>Sodium</td> <td>128 mEq/L</td> <td>136-144</td> </tr> <tr> <th colspan="10"> Magnesium - 05/11/17 06:53</th> </tr> <tr> <td>Magnesium< /td> <td>1.9 mg/dL</td> <td>1.8-2.5</td> </tr> < tr> <th colspan="10">eGFR - 05/11/17 06:53</th> </tr> <tr > <td>eGFR</td> <td>49 mL/min</td> <td>>60</td> </tr> <tr> <th colspan="10">Basic Metabolic Panel (BMP) - 05/11/17 11:09</th> </tr> <tr> <td>Anion Gap</td> <td>10 mEq/L</td> <td>3-20</td> </tr> <tr> < td>BUN</td> <td>54 mg/dL</td> <td>4-20</td> </tr> <tr> <td>Calcium</td> <td>9.7 mg/dL</td> <td>8.6- 10.0</td> </tr> <tr> <td>Chloride</td> <td>99 mEq/L</td> <td>99-109</td> </tr> <tr> <td>CO2</ td> <td>22 mEq/L</td> <td>22-32</td> </tr> <tr> <td>Creatinine</td> <td>1.49 mg/dL</td> <td>0.64- 1.27</td> </tr> <tr> <td>Glucose</td> <td>108 mg /dL</td> <td>70-100</td> </tr> <tr> <td> Potassium</td> <td>5.6 mEq/L</td> <td>3.6-5.1</td> </tr > <tr> <td>Sodium</td> <td>131 mEq/L</td> <td> 136-144</td> </tr> <tr> <th colspan="10">eGFR - 05/11/17 11:09</th> </tr> <tr> <td>eGFR</td> <td>50 mL/ min</td> <td>>60</td> </tr> <tr> <th colspan= "10">Potassium - 05/11/17 14:36</th> </tr> <tr> <td> Potassium</td> <td>5.4 mEq/L</td> <td>3.6-5.1</td> </tr > <tr> <th colspan="10">Lipase - 05/16/17 22:39</th> </tr > <tr> <td>Lipase</td> <td>34 U/L</td> <td>8- 48</td> </tr> <tr> <th colspan="10">eGFR - 05/16/17 22:39 </th> </tr> <tr> <td>eGFR</td> <td>59 mL/min</td > <td>>60</td> </tr> <tr> <th colspan="10"> CBC With Platelet and Differential - 05/16/17 22:39</th> </tr> <tr > <td>HCT</td> <td>35.3 %</td> <td>42.0-52.0</td > </tr> <tr> <td>HGB</td> <td>11.9 g/dL</td> <td>14.0-18.0</td> </tr> <tr> <td>MCH</td> <td>30.6 pg</td> <td>27.0-32.0</td> </tr> <tr> <td>MCHC</td> <td>33.7 g/dL</td> <td>32.0-36.0</td> </tr> <tr> <td>MCV</td> <td>90.7 fL</td> <td> 82.0-99.0</td> </tr> <tr> <td>MPV</td> <td>11.4 fL</td> <td>9.4-12.3</td> </tr> <tr> <td> Platelet Count</td> <td>180 K/uL</td> <td>150-400</td> </tr> <tr> <td>RBC</td> <td>3.89 10*6/uL</td> <td>4.60-6.20</td> </tr> <tr> <td>RDW</td> <td> 13.6 %</td> <td>11.5-14.5</td> </tr> <tr> < td>WBC</td> <td>8.2 K/uL</td> <td>4.8-10.8</td> </tr> <tr> <th colspan="10">Troponin - 05/16/17 22:39</th> </tr > <tr> <td>Troponin</td> <td><0.05 ng/mL</td> <td><0.06</td> </tr> <tr> <th colspan="10"> Urinalysis with reflex microscopic - 05/17/17 00:35</th> </tr> <tr > <td>Appearance</td> <td>Sl Cloudy NA</td> <td /> </tr> <tr> <td>Bilirubin</td> <td>Negative NA</td > <td>Negative</td> </tr> <tr> <td>Blood</td> <td>Negative NA</td> <td>Negative</td> </tr> <tr > <td>Color</td> <td>Yellow NA</td> <td /> </ tr> <tr> <td>Glucose, Urine</td> <td>Negative </td> <td>Negative</td> </tr> <tr> <td>Ketones</td> <td>Negative </td> <td>Negative</td> </tr> <tr> <td>Leukocyte Esterase</td> <td>Negative NA</td> <td> Negative</td> </tr> <tr> <td>Nitrites</td> <td> Negative NA</td> <td>Negative</td> </tr> <tr> < td>pH</td> <td>5.0 NA</td> <td>5.0-8.0</td> </tr> <tr> <td>Protein</td> <td>Negative NA</td> <td> Negative</td> </tr> <tr> <td>Specific [place]</td> <td>1.015 NA</td> <td>1.003-1.030</td> </tr> <tr> <td>UA Collection type</td> <td>Clean Catch NA</td> < td /> </tr> <tr> <td>Urobilinogen</td> <td>2.0 mg/dL</td> <td><1.0</td> </tr> <tr> <th colspan="10">Magnesium - 05/17/17 05:50</th> </tr> <tr> < td>Magnesium</td> <td>1.9 mg/dL</td> <td>1.8-2.5</td> < /tr> <tr> <th colspan="10">Comprehensive Metabolic Panel (CMP) - 05/17/17 05:50</th> </tr> <tr> <td>Albumin</td> <td>3.2 g/dL</td> <td>3.5-4.8</td> </tr> <tr> <td>Alkaline Phosphatase</td> <td>78 U/L</td> <td>26-104</td > </tr> <tr> <td>ALT (SGPT)</td> <td>58 U/L</td > <td>17-63</td> </tr> <tr> <td>Anion Gap</td> <td>5 mEq/L</td> <td>3-20</td> </tr> <tr> <td>AST (SGOT)</td> <td>40 U/L</td> <td>15-41</td> </tr> <tr> <td>Bilirubin Total</td> <td>0.8 mg/dL</td> <td>0.2-1.2</td> </tr> <tr> <td>BUN</td> <td>27 mg/dL</td> <td>4-20</td> </tr> <tr> < td>Calcium</td> <td>8.2 mg/dL</td> <td>8.6-10.0</td> </ tr> <tr> <td>Chloride</td> <td>107 mEq/L</td> <td>99-109</td> </tr> <tr> <td>CO2</td> <td>22 mEq/L</td> <td>22-32</td> </tr> <tr> <td> Creatinine</td> <td>0.93 mg/dL</td> <td>0.64-1.27</td> </tr> <tr> <td>Globulin</td> <td>2.7 g/dL</td> <td>1.9-4.3</td> </tr> <tr> <td>Glucose</td> < td>116 mg/dL</td> <td>70-100</td> </tr> <tr> <td >Potassium</td> <td>4.0 mEq/L</td> <td>3.6-5.1</td> </ tr> <tr> <td>Protein</td> <td>5.9 g/dL</td> < td>6.1-7.9</td> </tr> <tr> <td>Sodium</td> <td> 134 mEq/L</td> <td>136-144</td> </tr> <tr> <th colspan="10">eGFR - 05/17/17 05:50</th> </tr> <tr> <td> eGFR</td> <td>>60 mL/min</td> <td>>60</td> </tr> <tr> <th colspan="10">Troponin - 05/17/17 05:50</th> </ tr> <tr> <td>Troponin</td> <td><0.05 ng/mL</td> <td><0.06</td> </tr> <tr> <th colspan="10"> Troponin - 05/17/17 11:17</th> </tr> <tr> <td>Troponin</ td> <td><0.05 ng/mL</td> <td><0.06</td> </tr> <tr> <th colspan="10">Urine Drug Screen - 05/17/17 22:47</th> </tr> <tr> <td>Amph/Meth/Ecstasy</td> <td>Negative NA</td> <td /> </tr> <tr> <td>Barbiturates</td> <td>Negative NA</td> <td /> </tr> <tr> <td>Benzodiazepine</td> <td>Negative NA</td> <td /> < /tr> <tr> <td>Cannabinoid</td> <td>Positive NA</td> <td /> </tr> <tr> <td>Cocaine</td> <td> Negative NA</td> <td /> </tr> <tr> <td>EDDP ( Methadone met.)</td> <td>Negative NA</td> <td /> </tr> <tr> <td>Opiate</td> <td>Negative NA</td> < td /> </tr> <tr> <td>Phencyclidine (PCP)</td> < td>Negative NA</td> <td /> </tr> <tr> <th colspan="10">CBC With Platelet No Differential - 05/18/17 06:36</th> </tr > <tr> <td>HCT</td> <td>36.3 %</td> <td> 42.0-52.0</td> </tr> <tr> <td>HGB</td> <td>12.3 g/dL</td> <td>14.0-18.0</td> </tr> <tr> <td>MCH< /td> <td>30.5 pg</td> <td>27.0-32.0</td> </tr> < tr> <td>MCHC</td> <td>33.9 g/dL</td> <td>32.0-36.0</ td> </tr> <tr> <td>MCV</td> <td>90.1 fL</td> <td>82.0-99.0</td> </tr> <tr> <td>MPV</td> <td>10.4 fL</td> <td>9.4-12.3</td> </tr> <tr> <td>Platelet Count</td> <td>177 K/uL</td> <td>150-400</td> </tr> <tr> <td>RBC</td> <td>4.03 10*6/uL</td> <td>4.60-6.20</td> </tr> <tr> <td>RDW</td> <td>13.7 %</td> <td>11.5-14.5</td> </tr> <tr> <td>WBC</td> <td>8.0 K/uL</td> <td>4.8-10.8</td> </tr> <tr> <th colspan="10">Renal Function Panel - 05/18/17 06 :36</th> </tr> <tr> <td>Albumin</td> <td>3.0 g/ dL</td> <td>3.5-4.8</td> </tr> <tr> <td>Anion Gap</td> <td>8 mEq/L</td> <td>3-20</td> </tr> < tr> <td>BUN</td> <td>27 mg/dL</td> <td>4-20</td> </tr> <tr> <td>Calcium</td> <td>8.3 mg/dL</td> <td>8.6-10.0</td> </tr> <tr> <td>Chloride</td> <td>105 mEq/L</td> <td>99-109</td> </tr> <tr> <td>CO2</td> <td>21 mEq/L</td> <td>22-32</td> </tr > <tr> <td>Creatinine</td> <td>0.88 mg/dL</td> <td>0.64-1.27</td> </tr> <tr> <td>Glucose</td> <td>103 mg/dL</td> <td>70-100</td> </tr> <tr> <td>Phosphorus</td> <td>3.2 mg/dL</td> <td>2.4-4.7</td> </tr> <tr> <td>Potassium</td> <td>3.8 mEq/L</td> <td>3.6-5.1</td> </tr> <tr> <td>Sodium</td> <td>134 mEq/L</td> <td>136-144</td> </tr> <tr> <th colspan="10">Magnesium - 05/18/17 06:36</th> </tr> <tr> <td>Magnesium</td> <td>1.9 mg/dL</td> <td>1.8-2.5</td> </tr> <tr> <th colspan="10">eGFR - 05/18/17 06:36</th> </tr> <tr> <td>eGFR</td> <td>>60 mL/min</td> <td>>60</td> </tr> <tr> <th colspan="10"> CBC With Platelet No Differential - 05/27/17 13:05</th> </tr> <tr > <td>HCT</td> <td>38.0 %</td> <td>42.0-52.0</td > </tr> <tr> <td>HGB</td> <td>12.9 g/dL</td> <td>14.0-18.0</td> </tr> <tr> <td>MCH</td> <td>31.2 pg</td> <td>27.0-32.0</td> </tr> <tr> <td>MCHC</td> <td>33.9 g/dL</td> <td>32.0-36.0</td> </tr> <tr> <td>MCV</td> <td>91.8 fL</td> <td> 82.0-99.0</td> </tr> <tr> <td>MPV</td> <td>10.6 fL</td> <td>9.4-12.3</td> </tr> <tr> <td> Platelet Count</td> <td>221 K/uL</td> <td>150-400</td> </tr> <tr> <td>RBC</td> <td>4.14 10*6/uL</td> <td>4.60-6.20</td> </tr> <tr> <td>RDW</td> <td> 14.0 %</td> <td>11.5-14.5</td> </tr> <tr> < td>WBC</td> <td>8.9 K/uL</td> <td>4.8-10.8</td> </tr> <tr> <th colspan="10">Lactic Acid Venous - 05/27/17 13:05</th> </tr> <tr> <td>Lactic Acid Venous</td> <td>1.2 mEq/L</td> <td>0.5-2.0</td> </tr> <tr> <th colspan="10">B-Type Natriuretic Peptide - 05/27/17 13:05</th> </tr> <tr> <td>B-Type Natriuretic Peptide</td> <td>34 pg/mL</td> <td>0-99</td> </tr> <tr> <th colspan="10"> Troponin - 05/27/17 13:05</th> </tr> <tr> <td>Troponin</ td> <td><0.05 ng/mL</td> <td><0.06</td> </tr> <tr> <th colspan="10">Basic Metabolic Panel (BMP) - 05/27/17 13:05 </th> </tr> <tr> <td>Anion Gap</td> <td>12 mEq/L </td> <td>3-20</td> </tr> <tr> <td>BUN</td> <td>44 mg/dL</td> <td>4-20</td> </tr> <tr> <td>Calcium</td> <td>8.4 mg/dL</td> <td>8.6-10.0</td> </tr> <tr> <td>Chloride</td> <td>101 mEq/L</td> <td>99-109</td> </tr> <tr> <td>CO2</td> <td >19 mEq/L</td> <td>22-32</td> </tr> <tr> <td> Creatinine</td> <td>1.25 mg/dL</td> <td>0.64-1.27</td> </tr> <tr> <td>Glucose</td> <td>76 mg/dL</td> <td>70-100</td> </tr> <tr> <td>Potassium</td> < td>4.2 mEq/L</td> <td>3.6-5.1</td> </tr> <tr> < td>Sodium</td> <td>132 mEq/L</td> <td>136-144</td> </tr > <tr> <th colspan="10">Magnesium - 05/27/17 13:05</th> < /tr> <tr> <td>Magnesium</td> <td>1.8 mg/dL</td> <td>1.8-2.5</td> </tr> <tr> < colspan="10">eGFR - 13:05</th> </tr> <tr> <td>eGFR</td> <td>& gt;60 mL/min</td> <td>>60</td> </tr> <tr> < th colspan="10">Hepatic Function Panel - 05/27/17 13:05</th> </tr> <tr> <td>Albumin</td> <td>3.5 g/dL</td> <td>3.5-4.8 </td> </tr> <tr> <td>Alkaline Phosphatase</td> < td>78 U/L</td> <td>26-104</td> </tr> <tr> <td> ALT (SGPT)</td> <td>46 U/L</td> <td>17-63</td> </tr> <tr> <td>AST (SGOT)</td> <td>44 U/L</td> <td>15 -41</td> </tr> <tr> <td>Bilirubin Direct</td> < td>0.2 mg/dL</td> <td>0.0-0.2</td> </tr> <tr> < td>Bilirubin Indirect</td> <td>0.2 mg/dL</td> <td>0.0-1.0</td > </tr> <tr> <td>Bilirubin Total</td> <td>0.4 mg /dL</td> <td>0.2-1.2</td> </tr> <tr> <td>Protein </td> <td>6.5 g/dL</td> <td>6.1-7.9</td> </tr> < tr> < colspan="10">Blood Gases, Arterial (RT) - 05/27/17 13:08</th> </tr> <tr> <td>Arterial Base Excess</td> <td>-3 NA</td> <td>0-2</td> </tr> <tr> <td>Arterial Bicarbonate</td> <td>21 mEq/L</td> <td>22-26</td> </tr > <tr> <td>Arterial O2 Saturation</td> <td>92.3 %</ td> <td>90.0-97.0</td> </tr> <tr> <td>Arterial PCO2</td> <td>34 mmHg</td> <td>35-45</td> </tr> <tr> <td>Arterial PH</td> <td>7.41 NA</td> <td>7.35- 7.45</td> </tr> <tr> <td>Arterial PO2</td> <td> 65 mmHg</td> <td>80-100</td> </tr> <tr> <td> Arterial LPM</td> <td>5.0 L/min</td> <td /> </tr> <tr> <td>O2 Panel</td> <td>nasal cannula </td> < td /> </tr> <tr> <td>Spec Site</td> <td>A. radialis r. </td> <td /> </tr> <tr> <th colspan= "10">Chem 8 NPT - 06/11/17 17:13</th> </tr> <tr> <td> Anion Gap</td> <td>12 mEq/L</td> <td>3-20</td> </tr> <tr> <td>BUN Venous</td> <td>24 mg/dl</td> <td> 4-20</td> </tr> <tr> <td>Calcium Ionized Venous</td> <td>1.01 mmol/L</td> <td>1.19-1.41</td> </tr> <tr> <td>Creatinine Venous</td> <td>1.0 mg/dL</td> <td> 0.7-1.2</td> </tr> <tr> <td>Glucose Venous</td> <td>83 mg/dL</td> <td>70-100</td> </tr> <tr> <td >Potassium, WB</td> <td>3.5 mEq/L</td> <td>3.6-5.1</td> </tr> <tr> <td>Sodium Venous</td> <td>137 mEq/L</td> <td>136-144</td> </tr> <tr> <td>Total CO2 Venous</td> <td>22 mEq/L</td> <td>25-29</td> </tr> <tr> <td>Venous CL</td> <td>103 mEq/L</td> <td>99 -109</td> </tr> <tr> <td>HCT Venous</td> <td> 35.0 %</td> <td>42.0-52.0</td> </tr> <tr> < td>HGB Venous NPT</td> <td>11.9 g/dL</td> <td>14.0-16.0</td> </tr> <tr> <th colspan="10">CBC With Platelet and Differential - 06/11/17 17:15</th> </tr> <tr> <td> Absolute Basophils</td> <td>0.02 10*3/uL</td> <td>0.00-0.20</ td> </tr> <tr> <td>Absolute Eosinophils</td> <td >0.39 10*3/uL</td> <td>0.00-0.50</td> </tr> <tr> <td>Absolute Lymphocytes</td> <td>1.92 10*3/uL</td> <td>0.80 -3.30</td> </tr> <tr> <td>Absolute Monocytes</td> <td>0.76 10*3/uL</td> <td>0.30-1.00</td> </tr> <tr> <td>Absolute Neutrophils</td> <td>1.91 10*3/uL</td> < td>1.90-7.00</td> </tr> <tr> <td>Basophils</td> <td>0 %</td> <td>0-2</td> </tr> <tr> <td> Eosinophils</td> <td>8 %</td> <td>0-4</td> </tr> <tr> <td>HCT</td> <td>34.7 %</td> <td>42.0- 52.0</td> </tr> <tr> <td>HGB</td> <td>11.8 g/dL< /td> <td>14.0-18.0</td> </tr> <tr> <td>Immature Granulocytes</td> <td>0.2 %</td> <td>0.0-1.0</td> < /tr> <tr> <td>Lymphocytes</td> <td>38 %</td> <td>20-46</td> </tr> <tr> <td>MCH</td> <td> 30.8 pg</td> <td>27.0-32.0</td> </tr> <tr> <td> MCHC</td> <td>34.0 g/dL</td> <td>32.0-36.0</td> </tr> <tr> <td>MCV</td> <td>90.6 fL</td> <td>82.0- 99.0</td> </tr> <tr> <td>Monocytes</td> <td>15 & #37;</td> <td>4-11</td> </tr> <tr> <td>MPV</td> <td>10.7 fL</td> <td>9.4-12.3</td> </tr> <tr> <td>Neutrophils</td> <td>38 %</td> <td>51-75</td > </tr> <tr> <td>Nucleated RBC Automated</td> < td>0.0 /100 WBC</td> <td /> </tr> <tr> <td> Platelet Count</td> <td>129 K/uL</td> <td>150-400</td> </tr> <tr> <td>RBC</td> <td>3.83 10*6/uL</td> <td>4.60-6.20</td> </tr> <tr> <td>RDW</td> <td> 13.9 %</td> <td>11.5-14.5</td> </tr> <tr> < td>WBC</td> <td>5.0 K/uL</td> <td>4.8-10.8</td> </tr> <tr> <th colspan="10">Comprehensive Metabolic Panel (CMP) - 17:15</th> </tr> <tr> <td>Albumin</td> <td >3.1 g/dL</td> <td>3.5-4.8</td> </tr> <tr> <td> Alkaline Phosphatase</td> <td>64 U/L</td> <td>26-104</td> </tr> <tr> <td>ALT (SGPT)</td> <td>45 U/L</td> <td>17-63</td> </tr> <tr> <td>Anion Gap</td> <td>9 mEq/L</td> <td>3-20</td> </tr> <tr> < td>AST (SGOT)</td> <td>43 U/L</td> <td>15-41</td> </tr > <tr> <td>Bilirubin Total</td> <td>0.5 mg/dL</td> <td>0.2-1.2</td> </tr> <tr> <td>BUN</td> < td>21 mg/dL</td> <td>4-20</td> </tr> <tr> <td> Calcium</td> <td>8.0 mg/dL</td> <td>8.6-10.0</td> </tr > <tr> <td>Chloride</td> <td>104 mEq/L</td> < td>99-109</td> </tr> <tr> <td>CO2</td> <td>21 mEq/L</td> <td>22-32</td> </tr> <tr> <td> Creatinine</td> <td>0.96 mg/dL</td> <td>0.64-1.27</td> </tr> <tr> <td>Globulin</td> <td>2.6 g/dL</td> <td>1.9-4.3</td> </tr> <tr> <td>Glucose</td> < td>90 mg/dL</td> <td>70-100</td> </tr> <tr> <td> Potassium</td> <td>3.5 mEq/L</td> <td>3.6-5.1</td> </tr > <tr> <td>Protein</td> <td>5.7 g/dL</td> <td> 6.1-7.9</td> </tr> <tr> <td>Sodium</td> <td>134 mEq/L</td> <td>136-144</td> </tr> <tr> < colspan="10">eGFR - 06/11/17 17:15</th> </tr> <tr> <td> eGFR</td> <td>>60 mL/min</td> <td>>60</td> </tr> <tr> < colspan="10">TSH with Reflex Free T4 - 06/11/17 17:15< /th> </tr> <tr> <td>TSH with Reflex Free T4</td> <td>3.17 uIU/mL</td> <td>0.35-4.94</td> </tr> <tr> <th colspan="10">Lactic Acid NPT - 06/11/17 17:17</th> </tr> <tr> <td>Lactic Acid NPT</td> <td>1.1 mEq/L</td> < td>0.5-2.0</td> </tr> <tr> <th colspan="10">CBC W/DIFF - 06/18/17 17:00</th> </tr> <tr> <td>EOSINOPHIL #</td> <td>0.4 k/cumm</td> <td>0.1-0.5</td> </tr> <tr> <td>EOSINOPHIL %</td> <td>5 %</td> <td>2-4</td > </tr> <tr> <td>GRANULOCYTE #</td> <td>4.2 k/ cumm</td> <td>2.0-9.0</td> </tr> <tr> <td> GRANULOCYTE %</td> <td>56 %</td> <td>50-75</td> </tr> <tr> <td>LYMPHOCYTE #</td> <td>2.1 k/cumm</td> <td>1.0-4.0</td> </tr> <tr> <td>LYMPHOCYTE &#37 ;</td> <td>28 %</td> <td>20-30</td> </tr> < tr> <td>MEAN CELL HGB</td> <td>30.2 pg</td> <td>27.0- 33.0</td> </tr> <tr> <td>MEAN CELL HGB CONCENTRATION</td > <td>33.8 g/dL</td> <td>32.0-37.0</td> </tr> < tr> <td>MEAN CELL VOLUME</td> <td>89.3 fl</td> <td> 80.0-100.0</td> </tr> <tr> <td>MONOCYTE #</td> < td>0.8 k/cumm</td> <td>0.1-1.0</td> </tr> <tr> < td>MONOCYTE %</td> <td>11 %</td> <td>4-6</td> < /tr> <tr> <td>MEAN PLATELET VOLUME</td> <td>9.7 fl</td > <td>8.5-10.9</td> </tr> <tr> <td>RED BLOOD CELL</td> <td>4.41 m/cumm</td> <td>4.00-6.00</td> </tr > <tr> <td>RED CELL DISTRIBUTION WIDTH</td> <td>13.7 &# 37;</td> <td>11.0-15.6</td> </tr> <tr> <td> WHITE BLOOD CELL</td> <td>7.6 k/cumm</td> <td>5.0-10.0</td> </tr> <tr> <td>HEMOGLOBIN</td> <td>13.3 gm/dL</td > <td>14.0-18.0</td> </tr> <tr> <td>HEMATOCRIT</ td> <td>39.4 %</td> <td>40.0-54.0</td> </tr> <tr> <td>NRBC %</td> <td>0.0 /100 WBC</td> <td> 0.0-0.0</td> </tr> <tr> <td>NRBC #</td> <td> 0.00 k/cumm</td> <td>0.03-0.11</td> </tr> <tr> < td>PLATELET COUNT</td> <td>156 k/cumm</td> <td>150-400</td> </tr> <tr> <td>IMMATURE GRANULOCYTE %</td> < td>0.4 %</td> <td>0.0-0.6</td> </tr> <tr> < td>IMMATURE GRANULOCYTE #</td> <td>0.03 k/cumm</td> <td>0.00- 0.09</td> </tr> <tr> <td>IMMATURE PLATELET FRACTION</td> <td>3.7 %</td> <td>1.1-6.1</td> </tr> <tr> <th colspan="10">METABOLIC PANEL, COMPREHN - 06/18/17 17:00</th> </tr> <tr> <td>POTASSIUM</td> <td>3.6 mmol/L</td> <td>3.5-5.3</td> </tr> <tr> <td>EST GFR (MDRD)</ td> <td>> 60 mL/min</td> <td>> 59</td> </tr> <tr> <td>ANION GAP</td> <td>11 mmol/L</td> <td>5- 15</td> </tr> <tr> <td>EST CrCl (CG)</td> <td>& gt; 60 mL/min</td> <td>> 59</td> </tr> <tr> < td>GLUCOSE</td> <td>82 mg/dL</td> <td>70-99</td> </tr> <tr> <td>CALCIUM</td> <td>8.5 mg/dL</td> <td> 8.5-10.1</td> </tr> <tr> <td>BLOOD UREA NITROGEN</td> <td>14 mg/dL</td> <td>7-20</td> </tr> <tr> <td>CREATININE</td> <td>1.0 mg/dL</td> <td>0.7-1.3</td> </tr> <tr> <td>SODIUM</td> <td>138 mmol/L</td> <td>135-148</td> </tr> <tr> <td>CHLORIDE</td> <td>102 mmol/L</td> <td>98-110</td> </tr> <tr> <td>AST/SGOT</td> <td>37 Units/L</td> <td>10-37</td> </tr> <tr> <td>ALT/SGPT</td> <td>38 Units/L</td> <td>< 66</td> </tr> <tr> <td>CARBON DIOXIDE</ td> <td>25 mmol/L</td> <td>21-32</td> </tr> <tr > <td>TOTAL PROTEIN</td> <td>7.3 gm/dL</td> <td>6.4- 8.2</td> </tr> <tr> <td>ALBUMIN</td> <td>3.4 gm/ dL</td> <td>3.4-5.0</td> </tr> <tr> <td>BILI TOTAL</td> <td>0.5 mg/dL</td> <td>0.0-1.0</td> </tr> <tr> <td>ALKALINE PHOSPHATASE TOTAL</td> <td>85 IU/L</td > <td>45-117</td> </tr> <tr> < colspan="10"> LACTIC ACID - 06/20/17 19:58</th> </tr> <tr> <td>LACTIC ACID</td> <td>1.6 mmol/L</td> <td>0.5-2.0</td> </tr> <tr> < colspan="10">CBC W/DIFF - 06/20/17 19:58</th> </ tr> <tr> <td>COMMENT</td> <td>REVIEWED </td> < td /> </tr> <tr> <td>EOSINOPHIL #</td> <td>0.1 k /cumm</td> <td>0.1-0.5</td> </tr> <tr> <td> EOSINOPHIL %</td> <td>1 %</td> <td>2-4</td> </ tr> <tr> <td>GRANULOCYTE #</td> <td>8.9 k/cumm</td> <td>2.0-9.0</td> </tr> <tr> <td>GRANULOCYTE %< /td> <td>72 %</td> <td>50-75</td> </tr> <tr > <td>LYMPHOCYTE #</td> <td>1.8 k/cumm</td> <td>1.0- 4.0</td> </tr> <tr> <td>LYMPHOCYTE %</td> < td>15 %</td> <td>20-30</td> </tr> <tr> <td> MEAN CELL HGB</td> <td>29.5 pg</td> <td>27.0-33.0</td> </tr> <tr> <td>MEAN CELL HGB CONCENTRATION</td> <td> 33.0 g/dL</td> <td>32.0-37.0</td> </tr> <tr> <td >MEAN CELL VOLUME</td> <td>89.3 fl</td> <td>80.0-100.0</td> </tr> <tr> <td>MONOCYTE #</td> <td>1.5 k/cumm</td > <td>0.1-1.0</td> </tr> <tr> <td>MONOCYTE % </td> <td>12 %</td> <td>4-6</td> </tr> <tr> <td>MEAN PLATELET VOLUME</td> <td>9.9 fl</td> <td> 8.5-10.9</td> </tr> <tr> <td>RED BLOOD CELL</td> <td>4.38 m/cumm</td> <td>4.00-6.00</td> </tr> <tr> <td>RED CELL DISTRIBUTION WIDTH</td> <td>13.2 %</td> <td>11.0-15.6</td> </tr> <tr> <td>WHITE BLOOD CELL</td > <td>12.3 k/cumm</td> <td>5.0-10.0</td> </tr> < tr> <td>HEMOGLOBIN</td> <td>12.9 gm/dL</td> <td>14.0- 18.0</td> </tr> <tr> <td>HEMATOCRIT</td> <td> 39.1 %</td> <td>40.0-54.0</td> </tr> <tr> < td>NRBC %</td> <td>0.0 /100 WBC</td> <td>0.0-0.0</td> </tr> <tr> <td>NRBC #</td> <td>0.00 k/cumm</td> <td>0.03-0.11</td> </tr> <tr> <td>PLATELET COUNT</ td> <td>167 k/cumm</td> <td>150-400</td> </tr> < tr> <td>IMMATURE GRANULOCYTE %</td> <td>0.5 %</td> <td>0.0-0.6</td> </tr> <tr> <td>IMMATURE GRANULOCYTE #</td> <td>0.06 k/cumm</td> <td>0.00-0.09</td> </tr> <tr> <th colspan="10">BLOOD CULTURE - 06/20/17 19:59< /th> </tr> <tr> <td>Microbiology</td> <td> </td > <td /> </tr> <tr> <th colspan="10">BLOOD CULTURE - 06/20/17 19:59</th> </tr> <tr> <td>Microbiology </td> <td> </td> <td /> </tr> <tr> <th colspan="10">HEPATIC FUNCTION PANEL - 06/20/17 19:59</th> </tr> < tr> <td>BILI UNCONJUGATED</td> <td>0.4 mg/dL</td> <td >0.0-0.7</td> </tr> <tr> <td>AST/SGOT</td> <td> 32 Units/L</td> <td>10-37</td> </tr> <tr> <td> ALT/SGPT</td> <td>27 Units/L</td> <td>< 66</td> </tr > <tr> <td>TOTAL PROTEIN</td> <td>7.3 gm/dL</td> <td>6.4-8.2</td> </tr> <tr> <td>ALBUMIN</td> <td>3.2 gm/dL</td> <td>3.4-5.0</td> </tr> <tr> <td>BILI TOTAL</td> <td>0.8 mg/dL</td> <td>0.0-1.0</td> </tr> <tr> <td>ALKALINE PHOSPHATASE TOTAL</td> <td> 87 IU/L</td> <td>45-117</td> </tr> <tr> <td> BILI CONJUGATED</td> <td>0.4 mg/dL</td> <td>0.0-0.3</td> </tr> <tr> <th colspan="10">CHEM/HEM PROFILE-BEDSIDE - 20:05</th> </tr> <tr> <td>POTASSIUM</td> <td> 3.4 mmol/L</td> <td>3.5-5.3</td> </tr> <tr> <td> METHOD</td> <td>Bedside </td> <td /> </tr> <tr> <td>ANION GAP</td> <td>18 mmol/L</td> <td>10-20</td > </tr> <tr> <td>METHOD</td> <td>Bedside </td> <td /> </tr> <tr> <td>GLUCOSE</td> <td> 80 mg/dL</td> <td>70-99</td> </tr> <tr> <td> BLOOD UREA NITROGEN</td> <td>15 mg/dL</td> <td>7-20</td> </tr> <tr> <td>CREATININE</td> <td>0.7 mg/dL</td> <td>0.7-1.3</td> </tr> <tr> <td>HEMOGLOBIN</td> <td>13.3 gm/dL</td> <td>14.0-18.0</td> </tr> <tr > <td>HEMATOCRIT</td> <td>39.0 %</td> <td>40.0- 54.0</td> </tr> <tr> <td>SODIUM</td> <td>134 mmol/L</td> <td>135-148</td> </tr> <tr> <td> CHLORIDE</td> <td>100 mmol/L</td> <td>98-110</td> </tr > <tr> <td>CARBON DIOXIDE</td> <td>20 mmol/L</td> <td>21-32</td> </tr> <tr> <td>CALCIUM IONIZED</td> <td>4.0 mg/dL</td> <td>4.5-5.3</td> </tr> <tr> <th colspan="10">LACTIC ACID - 06/20/17 23:30</th> </tr> <tr> <td>LACTIC ACID</td> <td>1.0 mmol/L</td> <td>0.5 -2.0</td> </tr> <tr> <th colspan="10">ARTERIAL BLOOD GAS - 06/20/17 23:41</th> </tr> <tr> <td>ABG BASE EXCESS</td > <td>-5.4 meq/L</td> <td>-3.0-3.0</td> </tr> < tr> <td>ABG BICARBONATE</td> <td>17.1 meq/L</td> <td> 23.0-28.0</td> </tr> <tr> <td>ABG PCO2</td> <td> 26 mm Hg</td> <td>34-45</td> </tr> <tr> <td>ABG PH</td> <td>7.43 </td> <td>7.35-7.45</td> </tr> <tr> <td>ABG PO2</td> <td>133 mm Hg</td> <td>75-100</ td> </tr> <tr> <td>ABG O2 SATURATION</td> <td> 99 %</td> <td>93-100</td> </tr> <tr> <th colspan="10">RNA HIV 1 BY PCR QUANTITATIVE - 06/21/17 00:42</th> </tr> <tr> <td>RNA HIV 1 QUANTITATIVE</td> <td>217688 /mL</td > <td><20 COPIES</td> </tr> <tr> <td>RNA HIV COPIES LOG 10</td> <td>5.04 LOG 10</td> <td><1.30 LOG10</td > </tr> <tr> <th colspan="10">CBC W/DIFF - 06/21/17 03:09 </th> </tr> <tr> <td>EOSINOPHIL #</td> <td>0.1 k /cumm</td> <td>0.1-0.5</td> </tr> <tr> <td> EOSINOPHIL %</td> <td>1 %</td> <td>2-4</td> </ tr> <tr> <td>GRANULOCYTE #</td> <td>8.0 k/cumm</td> <td>2.0-9.0</td> </tr> <tr> <td>GRANULOCYTE %< /td> <td>72 %</td> <td>50-75</td> </tr> <tr > <td>LYMPHOCYTE #</td> <td>1.7 k/cumm</td> <td>1.0- 4.0</td> </tr> <tr> <td>LYMPHOCYTE %</td> < td>15 %</td> <td>20-30</td> </tr> <tr> <td> MEAN CELL HGB</td> <td>29.9 pg</td> <td>27.0-33.0</td> </tr> <tr> <td>MEAN CELL HGB CONCENTRATION</td> <td> 34.3 g/dL</td> <td>32.0-37.0</td> </tr> <tr> <td >MEAN CELL VOLUME</td> <td>87.4 fl</td> <td>80.0-100.0</td> </tr> <tr> <td>MONOCYTE #</td> <td>1.3 k/cumm</td > <td>0.1-1.0</td> </tr> <tr> <td>MONOCYTE % </td> <td>12 %</td> <td>4-6</td> </tr> <tr> <td>MEAN PLATELET VOLUME</td> <td>9.6 fl</td> <td> 8.5-10.9</td> </tr> <tr> <td>RED BLOOD CELL</td> <td>3.74 m/cumm</td> <td>4.00-6.00</td> </tr> <tr> <td>RED CELL DISTRIBUTION WIDTH</td> <td>13.2 %</td> <td>11.0-15.6</td> </tr> <tr> <td>WHITE BLOOD CELL</td > <td>11.2 k/cumm</td> <td>5.0-10.0</td> </tr> < tr> <td>HEMOGLOBIN</td> <td>11.2 gm/dL</td> <td>14.0- 18.0</td> </tr> <tr> <td>HEMATOCRIT</td> <td> 32.7 %</td> <td>40.0-54.0</td> </tr> <tr> < td>NRBC %</td> <td>0.0 /100 WBC</td> <td>0.0-0.0</td> </tr> <tr> <td>NRBC #</td> <td>0.00 k/cumm</td> <td>0.03-0.11</td> </tr> <tr> <td>PLATELET COUNT</ td> <td>152 k/cumm</td> <td>150-400</td> </tr> < tr> <td>IMMATURE GRANULOCYTE %</td> <td>0.4 %</td> <td>0.0-0.6</td> </tr> <tr> <td>IMMATURE GRANULOCYTE #</td> <td>0.05 k/cumm</td> <td>0.00-0.09</td> </tr> <tr> < colspan="10">LACTIC ACID - 06/21/17 03:09</ th> </tr> <tr> <td>LACTIC ACID</td> <td>0.8 mmol /L</td> <td>0.5-2.0</td> </tr> <tr> <th colspan= "10">RENAL FUNCTION PANEL - 06/21/17 03:09</th> </tr> <tr> <td>POTASSIUM</td> <td>3.4 mmol/L</td> <td>3.5-5.3</td> </tr> <tr> <td>EST GFR (MDRD)</td> <td>> 60 mL/ min</td> <td>> 59</td> </tr> <tr> <td>ANION GAP</td> <td>7 mmol/L</td> <td>5-15</td> </tr> < tr> <td>EST CrCl (CG)</td> <td>> 60 mL/min</td> < td>> 59</td> </tr> <tr> <td>GLUCOSE</td> <td> 85 mg/dL</td> <td>70-99</td> </tr> <tr> <td> CALCIUM</td> <td>7.8 mg/dL</td> <td>8.5-10.1</td> </tr > <tr> <td>BLOOD UREA NITROGEN</td> <td>12 mg/dL</td> <td>7-20</td> </tr> <tr> <td>CREATININE</td> <td>0.8 mg/dL</td> <td>0.7-1.3</td> </tr> <tr> <td>SODIUM</td> <td>132 mmol/L</td> <td>135-148</td> </tr> <tr> <td>CHLORIDE</td> <td>102 mmol/L</td> <td>98-110</td> </tr> <tr> <td>CARBON DIOXIDE</ td> <td>23 mmol/L</td> <td>21-32</td> </tr> <tr > <td>ALBUMIN</td> <td>2.6 gm/dL</td> <td>3.4-5.0</td > </tr> <tr> <td>PHOSPHORUS</td> <td>2.6 mg/dL</ td> <td>2.5-4.9</td> </tr> <tr> <th colspan="10 ">GASTROINTESTINAL PROFILE - 06/21/17 09:49</th> </tr> <tr> <td>Microbiology</td> <td> </td> <td /> </tr> <tr> <th colspan="10">CLOSTRIDIUM DIFFICILE DNA - 06/21/17 09:49</th > </tr> <tr> <td>Microbiology</td> <td> </td> <td /> </tr> <tr> <th colspan="10">OVA AND PARASITES - 06/21/17 09:49</th> </tr> <tr> <td> Microbiology</td> <td> </td> <td /> </tr> <tr> <th colspan="10">URINALYSIS, ROUTINE - 06/21/17 09:49</th> </tr > <tr> <td>UA LEUKOCYTE ESTERASE DIPSTICK</td> <td> TRACE </td> <td>NEGATIVE</td> </tr> <tr> <td>UA NITRITE DIPSTICK</td> <td>NEGATIVE </td> <td>NEGATIVE</td> </tr> <tr> <td>UA PROTEIN DIPSTICK</td> <td>1+ </ td> <td>NEGATIVE</td> </tr> <tr> <td>UA GLUCOSE DIPSTICK</td> <td>NEGATIVE </td> <td>NEGATIVE</td> </tr > <tr> <td>UA KETONE DIPSTICK</td> <td>2+ </td> <td>NEGATIVE</td> </tr> <tr> <td>UA UROBILINOGEN DIPSTICK</td> <td>2+ </td> <td>NORMAL</td> </tr> <tr> <td>UA BILIRUBIN DIPSTICK</td> <td>POSITIVE </td> <td>NEGATIVE</td> </tr> <tr> <td>UA BLOOD DIPSTICK</ td> <td>NEGATIVE </td> <td>NEGATIVE</td> </tr> < tr> <td>UA SPECIFIC GRAVITY</td> <td>1.019 </td> <td> 1.015-1.025</td> </tr> <tr> <td>UR PH</td> <td> 5.0 </td> <td>5.0-7.0</td> </tr> <tr> < colspan="10">UA MICROSCOPIC - 06/21/17 09:49</th> </tr> <tr> <td>UA BACTERIA</td> <td>2+ </td> <td>NEGATIVE</td> </tr> <tr> <td>UA EPITHELIAL CELLS</td> <td>1+ epi/ hpf</td> <td>0 - 1+</td> </tr> <tr> <td>UA MUCUS </td> <td>2+ </td> <td>NEG TO 1+</td> </tr> <tr > <td>UA RBC</td> <td>0 rbc/hpf</td> <td>0 - 3</td> </tr> <tr> <td>UA VOLUME FOR EXAM</td> <td>12.0 mL</td> <td>(12mL STD)</td> </tr> <tr> <td>UA WBC</td> <td>0-1 wbc/hpf</td> <td>0 - 5</td> </tr> <tr> <th colspan="10">UR DRUGS OF ABUSE SCREEN - 06/21/17 09:49</th > </tr> <tr> <td>UR AMPHETAMINES SCREEN</td> <td >NEG (<1000 ng/mL) </td> <td>NEGATIVE</td> </tr> <tr > <td>UR BARBITURATE SCREEN</td> <td>NEG (< 200 ng/mL) </ td> <td>NEGATIVE</td> </tr> <tr> <td>DRUGS OF ABUSE SCREEN COMMENT</td> <td> </td> <td /> </tr> <tr> <td>UR OPIATES SCREEN</td> <td>POS (> 300 ng/ mL) </td> <td>NEGATIVE</td> </tr> <tr> <td>UR PHENCYCLIDINE (PCP) SCREEN</td> <td>NEG (< 25 ng/mL) </td> <td>NEGATIVE</td> </tr> <tr> <td>UR CANNABINOIDS (THC ) SCREEN</td> <td>POS (> 50 ng/mL) </td> <td>NEGATIVE</td > </tr> <tr> <td>UR COCAINE METABOLITE SCREEN</td> <td>NEG (< 300 ng/mL) </td> <td>NEGATIVE</td> </tr> <tr> <td>UR METHADONE SCREEN</td> <td>NEG (< 300 ng/mL ) </td> <td>NEGATIVE</td> </tr> <tr> <td>UR BENZODIAZEPINE SCREEN</td> <td>NEG (< 200 ng/mL) </td> <td >NEGATIVE</td> </tr> <tr> <th colspan="10">CBC W/DIFF - 06/22/17 06:51</th> </tr> <tr> <td>EOSINOPHIL #</td> <td>0.7 k/cumm</td> <td>0.1-0.5</td> </tr> <tr> <td>EOSINOPHIL %</td> <td>10 %</td> <td>2-4</td > </tr> <tr> <td>GRANULOCYTE #</td> <td>4.4 k/ cumm</td> <td>2.0-9.0</td> </tr> <tr> <td> GRANULOCYTE %</td> <td>62 %</td> <td>50-75</td> </tr> <tr> <td>LYMPHOCYTE #</td> <td>1.1 k/cumm</td> <td>1.0-4.0</td> </tr> <tr> <td>LYMPHOCYTE &#37 ;</td> <td>16 %</td> <td>20-30</td> </tr> < tr> <td>MEAN CELL HGB</td> <td>29.9 pg</td> <td>27.0- 33.0</td> </tr> <tr> <td>MEAN CELL HGB CONCENTRATION</td > <td>33.9 g/dL</td> <td>32.0-37.0</td> </tr> < tr> <td>MEAN CELL VOLUME</td> <td>88.1 fl</td> <td> 80.0-100.0</td> </tr> <tr> <td>MONOCYTE #</td> < td>0.9 k/cumm</td> <td>0.1-1.0</td> </tr> <tr> < td>MONOCYTE %</td> <td>12 %</td> <td>4-6</td> < /tr> <tr> <td>MEAN PLATELET VOLUME</td> <td>10.0 fl</td > <td>8.5-10.9</td> </tr> <tr> <td>RED BLOOD CELL</td> <td>3.95 m/cumm</td> <td>4.00-6.00</td> </tr > <tr> <td>RED CELL DISTRIBUTION WIDTH</td> <td>13.4 &# 37;</td> <td>11.0-15.6</td> </tr> <tr> <td> WHITE BLOOD CELL</td> <td>7.2 k/cumm</td> <td>5.0-10.0</td> </tr> <tr> <td>HEMOGLOBIN</td> <td>11.8 gm/dL</td > <td>14.0-18.0</td> </tr> <tr> <td>HEMATOCRIT</ td> <td>34.8 %</td> <td>40.0-54.0</td> </tr> <tr> <td>NRBC %</td> <td>0.0 /100 WBC</td> <td> 0.0-0.0</td> </tr> <tr> <td>NRBC #</td> <td> 0.00 k/cumm</td> <td>0.03-0.11</td> </tr> <tr> < td>PLATELET COUNT</td> <td>191 k/cumm</td> <td>150-400</td> </tr> <tr> <td>IMMATURE GRANULOCYTE %</td> < td>0.7 %</td> <td>0.0-0.6</td> </tr> <tr> < td>IMMATURE GRANULOCYTE #</td> <td>0.05 k/cumm</td> <td>0.00- 0.09</td> </tr> <tr> <th colspan="10">RENAL FUNCTION PANEL - 06/22/17 06:51</th> </tr> <tr> <td>POTASSIUM</td > <td>3.6 mmol/L</td> <td>3.5-5.3</td> </tr> <tr > <td>EST GFR (MDRD)</td> <td>> 60 mL/min</td> <td >> 59</td> </tr> <tr> <td>ANION GAP</td> <td> 7 mmol/L</td> <td>5-15</td> </tr> <tr> <td>EST CrCl (CG)</td> <td>> 60 mL/min</td> <td>> 59</td> </tr> <tr> <td>GLUCOSE</td> <td>82 mg/dL</td> <td>70-99</td> </tr> <tr> <td>CALCIUM</td> < td>8.2 mg/dL</td> <td>8.5-10.1</td> </tr> <tr> < td>BLOOD UREA NITROGEN</td> <td>13 mg/dL</td> <td>7-20</td> </tr> <tr> <td>CREATININE</td> <td>0.9 mg/dL</td > <td>0.7-1.3</td> </tr> <tr> <td>SODIUM</td> <td>136 mmol/L</td> <td>135-148</td> </tr> <tr> <td>CHLORIDE</td> <td>105 mmol/L</td> <td>98-110</td > </tr> <tr> <td>CARBON DIOXIDE</td> <td>24 mmol /L</td> <td>21-32</td> </tr> <tr> <td>ALBUMIN</ td> <td>2.6 gm/dL</td> <td>3.4-5.0</td> </tr> < tr> <td>PHOSPHORUS</td> <td>2.9 mg/dL</td> <td>2.5- 4.9</td> </tr> <tr> < colspan="10">CBC With Platelet and Differential - 07/05/17 17:31</th> </tr> <tr> <td> Absolute Basophils</td> <td>0.03 10*3/uL</td> <td>0.00-0.20</ td> </tr> <tr> <td>Absolute Eosinophils</td> <td >0.50 10*3/uL</td> <td>0.00-0.50</td> </tr> <tr> <td>Absolute Lymphocytes</td> <td>1.70 10*3/uL</td> <td>0.80 -3.30</td> </tr> <tr> <td>Absolute Monocytes</td> <td>1.10 10*3/uL</td> <td>0.30-1.00</td> </tr> <tr> <td>Absolute Neutrophils</td> <td>3.68 10*3/uL</td> < td>1.90-7.00</td> </tr> <tr> <td>Basophils</td> <td>0 %</td> <td>0-2</td> </tr> <tr> <td> Eosinophils</td> <td>7 %</td> <td>0-4</td> </tr> <tr> <td>HCT</td> <td>39.3 %</td> <td>42.0- 52.0</td> </tr> <tr> <td>HGB</td> <td>12.9 g/dL< /td> <td>14.0-18.0</td> </tr> <tr> <td>Immature Granulocytes</td> <td>0.4 %</td> <td>0.0-1.0</td> < /tr> <tr> <td>Lymphocytes</td> <td>24 %</td> <td>20-46</td> </tr> <tr> <td>MCH</td> <td> 29.7 pg</td> <td>27.0-32.0</td> </tr> <tr> <td> MCHC</td> <td>32.8 g/dL</td> <td>32.0-36.0</td> </tr> <tr> <td>MCV</td> <td>90.3 fL</td> <td>82.0- 99.0</td> </tr> <tr> <td>Monocytes</td> <td>16 & #37;</td> <td>4-11</td> </tr> <tr> <td>MPV</td> <td>10.5 fL</td> <td>9.4-12.3</td> </tr> <tr> <td>Neutrophils</td> <td>52 %</td> <td>51-75</td > </tr> <tr> <td>Nucleated RBC Automated</td> < td>0.0 /100 WBC</td> <td /> </tr> <tr> <td> Platelet Count</td> <td>207 K/uL</td> <td>150-400</td> </tr> <tr> <td>RBC</td> <td>4.35 10*6/uL</td> <td>4.60-6.20</td> </tr> <tr> <td>RDW</td> <td> 14.9 %</td> <td>11.5-14.5</td> </tr> <tr> < td>WBC</td> <td>7.0 K/uL</td> <td>4.8-10.8</td> </tr> <tr> <th colspan="10">Troponin - 07/05/17 17:31</th> </tr > <tr> <td>Troponin</td> <td><0.05 ng/mL</td> <td><0.06</td> </tr> <tr> <th colspan="10"> Comprehensive Metabolic Panel (CMP) - 07/05/17 17:32</th> </tr> < tr> <td>Albumin</td> <td>3.6 g/dL</td> <td>3.5-4.8</ td> </tr> <tr> <td>Alkaline Phosphatase</td> <td >79 U/L</td> <td>26-104</td> </tr> <tr> <td>ALT (SGPT)</td> <td>41 U/L</td> <td>17-63</td> </tr> <tr> <td>Anion Gap</td> <td>11 mEq/L</td> <td>3-20< /td> </tr> <tr> <td>AST (SGOT)</td> <td>42 U/L</ td> <td>15-41</td> </tr> <tr> <td>Bilirubin Total</td> <td>0.7 mg/dL</td> <td>0.2-1.2</td> </tr> <tr> <td>BUN</td> <td>9 mg/dL</td> <td>4-20</td > </tr> <tr> <td>Calcium</td> <td>9.1 mg/dL</td > <td>8.6-10.0</td> </tr> <tr> <td>Chloride</td > <td>106 mEq/L</td> <td>99-109</td> </tr> <tr> <td>CO2</td> <td>22 mEq/L</td> <td>22-32</td> </tr> <tr> <td>Creatinine</td> <td>0.93 mg/dL</td> <td>0.64-1.27</td> </tr> <tr> <td>Globulin</td> <td>3.3 g/dL</td> <td>1.9-4.3</td> </tr> <tr> <td>Glucose</td> <td>86 mg/dL</td> <td>70-100</td> </tr> <tr> <td>Potassium</td> <td>3.5 mEq/L</td> <td>3.6-5.1</td> </tr> <tr> <td>Protein</td> <td>6.9 g/dL</td> <td>6.1-7.9</td> </tr> <tr> <td>Sodium</td> <td>139 mEq/L</td> <td>136-144</td> </tr> <tr> <th colspan="10">eGFR - 07/05/17 17:32</th> </tr> <tr> <td>eGFR</td> <td>>60 mL/min</td> <td>>60</td> </tr> <tr> <th colspan="10">CBC With Platelet and Differential - 07/10/17 20:39</th> </tr> <tr> <td>Absolute Basophils</td> <td>0.03 10*3/uL</td> <td> 0.00-0.20</td> </tr> <tr> <td>Absolute Eosinophils</td> <td>0.78 10*3/uL</td> <td>0.00-0.50</td> </tr> < tr> <td>Absolute Lymphocytes</td> <td>1.84 10*3/uL</td> <td>0.80-3.30</td> </tr> <tr> <td>Absolute Monocytes< /td> <td>0.78 10*3/uL</td> <td>0.30-1.00</td> </tr> <tr> <td>Absolute Neutrophils</td> <td>2.60 10*3/uL</td> <td>1.90-7.00</td> </tr> <tr> <td>Basophils</td > <td>1 %</td> <td>0-2</td> </tr> <tr> <td>Eosinophils</td> <td>13 %</td> <td>0-4</td> </tr> <tr> <td>HCT</td> <td>37.0 %</td> <td>42.0-52.0</td> </tr> <tr> <td>HGB</td> <td >12.2 g/dL</td> <td>14.0-18.0</td> </tr> <tr> < td>Immature Granulocytes</td> <td>0.5 %</td> <td>0.0-1.0</ td> </tr> <tr> <td>Lymphocytes</td> <td>30 % </td> <td>20-46</td> </tr> <tr> <td>MCH</td> <td>29.8 pg</td> <td>27.0-32.0</td> </tr> <tr> <td>MCHC</td> <td>33.0 g/dL</td> <td>32.0-36.0</td> </tr> <tr> <td>MCV</td> <td>90.2 fL</td> <td>82.0-99.0</td> </tr> <tr> <td>Monocytes</td> <td>13 %</td> <td>4-11</td> </tr> <tr> <td >MPV</td> <td>10.6 fL</td> <td>9.4-12.3</td> </tr> <tr> <td>Neutrophils</td> <td>43 %</td> <td> 51-75</td> </tr> <tr> <td>Nucleated RBC Automated</td> <td>0.0 /100 WBC</td> <td /> </tr> <tr> <td>Platelet Count</td> <td>156 K/uL</td> <td>150-400</td> </tr> <tr> <td>RBC</td> <td>4.10 10*6/uL</td> <td>4.60-6.20</td> </tr> <tr> <td>RDW</td> <td>14.4 %</td> <td>11.5-14.5</td> </tr> <tr> <td>WBC</td> <td>6.1 K/uL</td> <td>4.8-10.8</td> < /tr> <tr> < colspan="10">Comprehensive Metabolic Panel (CMP) - 07/10/17 20:39</th> </tr> <tr> <td>Albumin</td> <td>3.4 g/dL</td> <td>3.5-4.8</td> </tr> <tr> <td>Alkaline Phosphatase</td> <td>72 U/L</td> <td>26-104</td > </tr> <tr> <td>ALT (SGPT)</td> <td>37 U/L</td > <td>17-63</td> </tr> <tr> <td>Anion Gap</td> <td>6 mEq/L</td> <td>3-20</td> </tr> <tr> <td>AST (SGOT)</td> <td>39 U/L</td> <td>15-41</td> </tr> <tr> <td>Bilirubin Total</td> <td>0.7 mg/dL</td> <td>0.2-1.2</td> </tr> <tr> <td>BUN</td> <td>14 mg/dL</td> <td>4-20</td> </tr> <tr> < td>Calcium</td> <td>8.6 mg/dL</td> <td>8.6-10.0</td> </ tr> <tr> <td>Chloride</td> <td>103 mEq/L</td> <td>99-109</td> </tr> <tr> <td>CO2</td> <td>24 mEq/L</td> <td>22-32</td> </tr> <tr> <td> Creatinine</td> <td>1.20 mg/dL</td> <td>0.64-1.27</td> </tr> <tr> <td>Globulin</td> <td>3.3 g/dL</td> <td>1.9-4.3</td> </tr> <tr> <td>Glucose</td> < td>114 mg/dL</td> <td>70-100</td> </tr> <tr> <td >Potassium</td> <td>4.1 mEq/L</td> <td>3.6-5.1</td> </ tr> <tr> <td>Protein</td> <td>6.7 g/dL</td> < td>6.1-7.9</td> </tr> <tr> <td>Sodium</td> <td> 133 mEq/L</td> <td>136-144</td> </tr> <tr> <th colspan="10">eGFR - 07/10/17 20:39</th> </tr> <tr> <td> eGFR</td> <td>>60 mL/min</td> <td>>60</td> </tr> <tr> <th colspan="10">Alcohol, Blood - 07/10/17 20:39</th> </tr> <tr> <td>Alcohol, Blood</td> <td>Not Detected mg/dL</td> <td /> </tr> <tr> <th colspan="10">Chem 8 NPT - 07/10/17 20:53</th> </tr> <tr> <td>Anion Gap</td> <td>10 mEq/L</td> <td>3-20</td> </tr > <tr> <td>BUN Venous</td> <td>17 mg/dl</td> < td>4-20</td> </tr> <tr> <td>Calcium Ionized Venous</td> <td>1.11 mmol/L</td> <td>1.19-1.41</td> </tr> < tr> <td>Creatinine Venous</td> <td>1.2 mg/dL</td> <td >0.7-1.2</td> </tr> <tr> <td>Glucose Venous</td> <td>107 mg/dL</td> <td>70-100</td> </tr> <tr> <td>Potassium, WB</td> <td>4.2 mEq/L</td> <td>3.6-5.1</td> </tr> <tr> <td>Sodium Venous</td> <td>136 mEq/L</ td> <td>136-144</td> </tr> <tr> <td>Total CO2 Venous</td> <td>24 mEq/L</td> <td>25-29</td> </tr> <tr> <td>Venous CL</td> <td>102 mEq/L</td> <td>99 -109</td> </tr> <tr> <td>HCT Venous</td> <td> 38.0 %</td> <td>42.0-52.0</td> </tr> <tr> < td>HGB Venous NPT</td> <td>12.9 g/dL</td> <td>14.0-16.0</td> </tr> <tr> <th colspan="10">Lactic Acid NPT - 07/10/17 20 :53</th> </tr> <tr> <td>Lactic Acid NPT</td> <td >1.5 mEq/L</td> <td>0.5-2.0</td> </tr> <tr> <th colspan="10">Troponin - 07/10/17 20:56</th> </tr> <tr> < td>Troponin</td> <td><0.05 ng/mL</td> <td><0.06</td> </tr> <tr> < colspan="10">Urinalysis with reflex microscopic - 07/10/17 22:18</th> </tr> <tr> <td> Appearance</td> <td>Cloudy NA</td> <td /> </tr> <tr> <td>Bilirubin</td> <td>Negative NA</td> <td> Negative</td> </tr> <tr> <td>Blood</td> <td> Negative NA</td> <td>Negative</td> </tr> <tr> < td>Color</td> <td>Leonila NA</td> <td /> </tr> <tr > <td>Glucose, Urine</td> <td>Pos 1+ </td> <td> Negative</td> </tr> <tr> <td>Ketones</td> <td> Trace </td> <td>Negative</td> </tr> <tr> <td> Leukocyte Esterase</td> <td>Negative NA</td> <td>Negative</td > </tr> <tr> <td>Nitrites</td> <td>Negative NA</ td> <td>Negative</td> </tr> <tr> <td>pH</td> <td>5.0 NA</td> <td>5.0-8.0</td> </tr> <tr> <td>Protein</td> <td>Pos 2+ NA</td> <td>Negative</td> </tr> <tr> <td>Specific [place]</td> <td>1.020 NA</ td> <td>1.003-1.030</td> </tr> <tr> <td>UA Collection type</td> <td>Voided NA</td> <td /> </tr> <tr> <td>Urobilinogen</td> <td>4.0 mg/dL</td> < td><1.0</td> </tr> <tr> <th colspan="10">Urine Microscopic - 07/10/17 22:18</th> </tr> <tr> <td>Bacteria </td> <td>Moderate NA</td> <td /> </tr> <tr> <td>Crystals</td> <td>Amorphous NA</td> <td /> < /tr> <tr> <td>Epithelial Cells</td> <td>0 /HPF</td> <td /> </tr> <tr> <td>Hyaline Casts</td> <td>>12 /LPF</td> <td>0-3</td> </tr> <tr> <td >RBC, Urine</td> <td>2 /HPF</td> <td>0-2</td> </tr> <tr> <td>Urine Mucus</td> <td>Present NA</td> < td /> </tr> <tr> <td>WBC, Urine</td> <td>5 /HPF< /td> <td>0-4</td> </tr> <tr> <th colspan="10"> CBC With Platelet and Differential - 07/11/17 08:11</th> </tr> <tr > <td>Absolute Basophils</td> <td>0.03 10*3/uL</td> < td>0.00-0.20</td> </tr> <tr> <td>Absolute Eosinophils</td > <td>0.70 10*3/uL</td> <td>0.00-0.50</td> </tr> <tr> <td>Absolute Lymphocytes</td> <td>2.06 10*3/uL</td> <td>0.80-3.30</td> </tr> <tr> <td>Absolute Monocytes</td> <td>0.61 10*3/uL</td> <td>0.30-1.00</td> </tr> <tr> <td>Absolute Neutrophils</td> <td>1.32 10* 3/uL</td> <td>1.90-7.00</td> </tr> <tr> <td> Basophils</td> <td>1 %</td> <td>0-2</td> </tr> <tr> <td>Eosinophils</td> <td>15 %</td> <td>0 -4</td> </tr> <tr> <td>HCT</td> <td>36.5 %</ td> <td>42.0-52.0</td> </tr> <tr> <td>HGB</td> <td>12.0 g/dL</td> <td>14.0-18.0</td> </tr> <tr > <td>Immature Granulocytes</td> <td>1.0 %</td> < td>0.0-1.0</td> </tr> <tr> <td>Lymphocytes</td> <td>43 %</td> <td>20-46</td> </tr> <tr> <td> MCH</td> <td>29.9 pg</td> <td>27.0-32.0</td> </tr> <tr> <td>MCHC</td> <td>32.9 g/dL</td> <td>32.0- 36.0</td> </tr> <tr> <td>MCV</td> <td>90.8 fL</ td> <td>82.0-99.0</td> </tr> <tr> <td>Monocytes< /td> <td>13 %</td> <td>4-11</td> </tr> <tr> <td>MPV</td> <td>10.9 fL</td> <td>9.4-12.3</td> </tr> <tr> <td>Neutrophils</td> <td>28 %</td> <td>51-75</td> </tr> <tr> <td>Nucleated RBC Automated</td> <td>0.0 /100 WBC</td> <td /> </tr> <tr> <td>Platelet Count</td> <td>139 K/uL</td> <td >150-400</td> </tr> <tr> <td>RBC</td> <td>4.02 10*6/uL</td> <td>4.60-6.20</td> </tr> <tr> <td> RDW</td> <td>14.8 %</td> <td>11.5-14.5</td> </tr> <tr> <td>WBC</td> <td>4.8 K/uL</td> <td>4.8- 10.8</td> </tr> <tr> <th colspan="10">Phosphorus - 08:11</th> </tr> <tr> <td>Phosphorus</td> <td >4.6 mg/dL</td> <td>2.4-4.7</td> </tr> <tr> <th colspan="10">Magnesium - 07/11/17 08:11</th> </tr> <tr> < td>Magnesium</td> <td>1.8 mg/dL</td> <td>1.8-2.5</td> < /tr> <tr> <th colspan="10">Comprehensive Metabolic Panel (CMP) - 07/11/17 08:11</th> </tr> <tr> <td>Albumin</td> <td>3.0 g/dL</td> <td>3.5-4.8</td> </tr> <tr> <td>Alkaline Phosphatase</td> <td>66 U/L</td> <td>26-104</td > </tr> <tr> <td>ALT (SGPT)</td> <td>30 U/L</td > <td>17-63</td> </tr> <tr> <td>Anion Gap</td> <td>8 mEq/L</td> <td>3-20</td> </tr> <tr> <td>AST (SGOT)</td> <td>31 U/L</td> <td>15-41</td> </tr> <tr> <td>Bilirubin Total</td> <td>0.7 mg/dL</td> <td>0.2-1.2</td> </tr> <tr> <td>BUN</td> <td>14 mg/dL</td> <td>4-20</td> </tr> <tr> < td>Calcium</td> <td>8.1 mg/dL</td> <td>8.6-10.0</td> </ tr> <tr> <td>Chloride</td> <td>109 mEq/L</td> <td>99-109</td> </tr> <tr> <td>CO2</td> <td>19 mEq/L</td> <td>22-32</td> </tr> <tr> <td> Creatinine</td> <td>0.99 mg/dL</td> <td>0.64-1.27</td> </tr> <tr> <td>Globulin</td> <td>2.8 g/dL</td> <td>1.9-4.3</td> </tr> <tr> <td>Glucose</td> < td>80 mg/dL</td> <td>70-100</td> </tr> <tr> <td> Potassium</td> <td>4.1 mEq/L</td> <td>3.6-5.1</td> </tr > <tr> <td>Protein</td> <td>5.8 g/dL</td> <td> 6.1-7.9</td> </tr> <tr> <td>Sodium</td> <td>136 mEq/L</td> <td>136-144</td> </tr> <tr> <th colspan="10">eGFR - 07/11/17 08:11</th> </tr> <tr> <td> eGFR</td> <td>>60 mL/min</td> <td>>60</td> </tr> <tr> <th colspan="10">Urine Drug Screen - 07/11/17 08:40</th> </tr> <tr> <td>Tricyclics</td> <td>Not Detected NA</td> <td /> </tr> <tr> <th colspan="10">CBC With Platelet and Differential - 07/12/17 07:34</th> </tr> <tr> <td>Absolute Basophils</td> <td>0.03 10*3/uL</td> <td> 0.00-0.20</td> </tr> <tr> <td>Absolute Eosinophils</td> <td>1.27 10*3/uL</td> <td>0.00-0.50</td> </tr> < tr> <td>Absolute Lymphocytes</td> <td>2.56 10*3/uL</td> <td>0.80-3.30</td> </tr> <tr> <td>Absolute Monocytes< /td> <td>0.77 10*3/uL</td> <td>0.30-1.00</td> </tr> <tr> <td>Absolute Neutrophils</td> <td>2.13 10*3/uL</td> <td>1.90-7.00</td> </tr> <tr> <td>Basophils</td > <td>0 %</td> <td>0-2</td> </tr> <tr> <td>Eosinophils</td> <td>19 %</td> <td>0-4</td> </tr> <tr> <td>HCT</td> <td>37.9 %</td> <td>42.0-52.0</td> </tr> <tr> <td>HGB</td> <td >12.4 g/dL</td> <td>14.0-18.0</td> </tr> <tr> < td>Immature Granulocytes</td> <td>0.4 %</td> <td>0.0-1.0</ td> </tr> <tr> <td>Lymphocytes</td> <td>38 % </td> <td>20-46</td> </tr> <tr> <td>MCH</td> <td>29.7 pg</td> <td>27.0-32.0</td> </tr> <tr> <td>MCHC</td> <td>32.7 g/dL</td> <td>32.0-36.0</td> </tr> <tr> <td>MCV</td> <td>90.7 fL</td> <td>82.0-99.0</td> </tr> <tr> <td>Monocytes</td> <td>11 %</td> <td>4-11</td> </tr> <tr> <td >MPV</td> <td>10.7 fL</td> <td>9.4-12.3</td> </tr> <tr> <td>Neutrophils</td> <td>32 %</td> <td> 51-75</td> </tr> <tr> <td>Nucleated RBC Automated</td> <td>0.0 /100 WBC</td> <td /> </tr> <tr> <td>Platelet Count</td> <td>160 K/uL</td> <td>150-400</td> </tr> <tr> <td>RBC</td> <td>4.18 10*6/uL</td> <td>4.60-6.20</td> </tr> <tr> <td>RDW</td> <td>14.8 %</td> <td>11.5-14.5</td> </tr> <tr> <td>WBC</td> <td>6.8 K/uL</td> <td>4.8-10.8</td> < /tr> <tr> <th colspan="10">Magnesium - 07/12/17 07:34</th> </tr> <tr> <td>Magnesium</td> <td>1.9 mg/dL</td> <td>1.8-2.5</td> </tr> <tr> <th colspan="10"> Renal Function Panel - 07/12/17 07:34</th> </tr> <tr> <td >Albumin</td> <td>3.4 g/dL</td> <td>3.5-4.8</td> </tr> <tr> <td>Anion Gap</td> <td>7 mEq/L</td> <td> 3-20</td> </tr> <tr> <td>BUN</td> <td>12 mg/dL</ td> <td>4-20</td> </tr> <tr> <td>Calcium</td> <td>8.7 mg/dL</td> <td>8.6-10.0</td> </tr> <tr> <td>Chloride</td> <td>107 mEq/L</td> <td>99-109</td> </tr> <tr> <td>CO2</td> <td>24 mEq/L</td> <td>22-32</td> </tr> <tr> <td>Creatinine</td> <td>0.92 mg/dL</td> <td>0.64-1.27</td> </tr> <tr> <td>Glucose</td> <td>82 mg/dL</td> <td>70-100</td> </tr> <tr> <td>Phosphorus</td> <td>4.4 mg/dL</td> <td>2.4-4.7</td> </tr> <tr> <td>Potassium</td> <td>4.6 mEq/L</td> <td>3.6-5.1</td> </tr> <tr> <td>Sodium</td> <td>138 mEq/L</td> <td>136-144</td> </tr> <tr> <th colspan="10">eGFR - 07/12/17 07:34</th> </tr> <tr> <td>eGFR</td> <td>>60 mL/min</td> <td>>60</td> </tr> <tr> <th colspan="10">B- TYPE NATRIURETIC PEPTIDE - 10/11/17 18:22</th> </tr> <tr> <td>B-TYPE NATRIURETIC PEPTIDE</td> <td>1119 pg/mL</td> <td> < 100</td> </tr> <tr> <th colspan="10">CBC W/DIFF - 18:22</th> </tr> <tr> <td>BASOPHIL #</td> <td>0.0 k/cumm</td> <td>0.0-0.2</td> </tr> <tr> <td>BASOPHIL %</td> <td>0.7 %</td> <td>0-1</td> </tr> <tr> <td>EOSINOPHIL #</td> <td>1.0 k/cumm</ td> <td>0.1-0.5</td> </tr> <tr> <td>EOSINOPHIL & #37;</td> <td>17.4 %</td> <td>2-4</td> </tr> <tr> <td>GRANULOCYTE #</td> <td>2.4 k/cumm</td> <td >2.0-9.0</td> </tr> <tr> <td>GRANULOCYTE %</td> <td>41.8 %</td> <td>50-75</td> </tr> <tr> <td>LYMPHOCYTE #</td> <td>1.6 k/cumm</td> <td>1.0-4.0</td > </tr> <tr> <td>LYMPHOCYTE %</td> <td>27.7 %</td> <td>20-30</td> </tr> <tr> <td>MEAN CELL HGB</td> <td>29.1 pg</td> <td>27.0-33.0</td> </tr > <tr> <td>MEAN CELL HGB CONCENTRATION</td> <td>33.0 g/ dL</td> <td>32.0-37.0</td> </tr> <tr> <td>MEAN CELL VOLUME</td> <td>88.1 fl</td> <td>80.0-100.0</td> < /tr> <tr> <td>MONOCYTE #</td> <td>0.7 k/cumm</td> <td>0.1-1.0</td> </tr> <tr> <td>MONOCYTE %</td> <td>11.7 %</td> <td>4-6</td> </tr> <tr> <td>MEAN PLATELET VOLUME</td> <td>11.0 fl</td> <td>8.5- 10.9</td> </tr> <tr> <td>RED BLOOD CELL</td> <td >4.47 m/cumm</td> <td>4.00-6.00</td> </tr> <tr> <td>RED CELL DISTRIBUTION WIDTH</td> <td>15.0 %</td> <td> 11.0-15.6</td> </tr> <tr> <td>WHITE BLOOD CELL</td> <td>5.8 k/cumm</td> <td>5.0-10.0</td> </tr> <tr> <td>HEMOGLOBIN</td> <td>13.0 gm/dL</td> <td>14.0-18.0</ td> </tr> <tr> <td>HEMATOCRIT</td> <td>39.4 &#37 ;</td> <td>40.0-54.0</td> </tr> <tr> <td>NRBC &# 37;</td> <td>0.0 /100 WBC</td> <td>0.0-0.0</td> </tr> <tr> <td>PLATELET COUNT</td> <td>105 k/cumm</td> <td>150-400</td> </tr> <tr> <td>IMMATURE GRANULOCYTE %</td> <td>0.7 %</td> <td>0.0-0.6</td> </tr> <tr> <td>IMMATURE GRANULOCYTE #</td> <td>0.04 k/cumm</td > <td>0.00-0.09</td> </tr> <tr> <td>IMMATURE PLATELET FRACTION</td> <td>5.6 %</td> <td>1.1-6.1</td> </tr> <tr> <th colspan="10">METABOLIC PANEL, COMPREHN - 18:22</th> </tr> <tr> <td>POTASSIUM</td> < td>3.8 mmol/L</td> <td>3.5-5.3</td> </tr> <tr> < td>EST GFR (MDRD)</td> <td>> 60 mL/min</td> <td>> 59</td > </tr> <tr> <td>ANION GAP</td> <td>13 mmol/L</ td> <td>5-15</td> </tr> <tr> <td>EST CrCl (CG)</ td> <td>> 60 mL/min</td> <td>> 59</td> </tr> <tr> <td>GLUCOSE</td> <td>109 mg/dL</td> <td>70- 99</td> </tr> <tr> <td>CALCIUM</td> <td>8.3 mg/ dL</td> <td>8.5-10.1</td> </tr> <tr> <td>BLOOD UREA NITROGEN</td> <td>14 mg/dL</td> <td>7-20</td> </tr > <tr> <td>CREATININE</td> <td>1.0 mg/dL</td> <td>0.7-1.3</td> </tr> <tr> <td>SODIUM</td> <td> 144 mmol/L</td> <td>135-148</td> </tr> <tr> <td> CHLORIDE</td> <td>107 mmol/L</td> <td>98-110</td> </tr > <tr> <td>AST/SGOT</td> <td>68 Units/L</td> < td>10-37</td> </tr> <tr> <td>ALT/SGPT</td> <td> 62 Units/L</td> <td>< 66</td> </tr> <tr> <td> CARBON DIOXIDE</td> <td>24 mmol/L</td> <td>21-32</td> < /tr> <tr> <td>TOTAL PROTEIN</td> <td>7.1 gm/dL</td> <td>6.4-8.2</td> </tr> <tr> <td>ALBUMIN</td> <td>3.1 gm/dL</td> <td>3.4-5.0</td> </tr> <tr> <td>BILI TOTAL</td> <td>0.6 mg/dL</td> <td>0.0-1.0</td> </tr> <tr> <td>ALKALINE PHOSPHATASE TOTAL</td> < td>143 IU/L</td> <td>45-117</td> </tr> <tr> <th colspan="10">LACTIC ACID - 10/12/17 23:39</th> </tr> <tr> <td>LACTIC ACID</td> <td>2.5 mmol/L</td> <td>0.5-2.0</td> </tr> <tr> <th colspan="10">CBC W/DIFF - 10/12/17 23:39</ th> </tr> <tr> <td>BASOPHIL #</td> <td>0.0 k/ cumm</td> <td>0.0-0.2</td> </tr> <tr> <td> BASOPHIL %</td> <td>0.4 %</td> <td>0-1</td> </ tr> <tr> <td>EOSINOPHIL #</td> <td>1.2 k/cumm</td> <td>0.1-0.5</td> </tr> <tr> <td>EOSINOPHIL %</ td> <td>12.9 %</td> <td>2-4</td> </tr> <tr> <td>GRANULOCYTE #</td> <td>5.9 k/cumm</td> <td>2.0- 9.0</td> </tr> <tr> <td>GRANULOCYTE %</td> < td>66.0 %</td> <td>50-75</td> </tr> <tr> <td >LYMPHOCYTE #</td> <td>1.3 k/cumm</td> <td>1.0-4.0</td> </tr> <tr> <td>LYMPHOCYTE %</td> <td>14.4 %</ td> <td>20-30</td> </tr> <tr> <td>MEAN CELL HGB< /td> <td>28.8 pg</td> <td>27.0-33.0</td> </tr> < tr> <td>MEAN CELL HGB CONCENTRATION</td> <td>32.1 g/dL</td> <td>32.0-37.0</td> </tr> <tr> <td>MEAN CELL VOLUME</td> <td>89.7 fl</td> <td>80.0-100.0</td> </tr> <tr> <td>MONOCYTE #</td> <td>0.5 k/cumm</td> <td>0.1-1.0</td> </tr> <tr> <td>MONOCYTE %</td> <td>5.6 %</td> <td>4-6</td> </tr> <tr> <td>MEAN PLATELET VOLUME</td> <td>11.5 fl</td> <td>8.5-10.9</ td> </tr> <tr> <td>RED BLOOD CELL</td> <td>4.45 m/cumm</td> <td>4.00-6.00</td> </tr> <tr> <td> RED CELL DISTRIBUTION WIDTH</td> <td>15.4 %</td> <td>11.0- 15.6</td> </tr> <tr> <td>WHITE BLOOD CELL</td> < td>8.9 k/cumm</td> <td>5.0-10.0</td> </tr> <tr> <td>HEMOGLOBIN</td> <td>12.8 gm/dL</td> <td>14.0-18.0</td> </tr> <tr> <td>HEMATOCRIT</td> <td>39.9 %</td > <td>40.0-54.0</td> </tr> <tr> <td>NRBC %</ td> <td>0.2 /100 WBC</td> <td>0.0-0.0</td> </tr> <tr> <td>PLATELET COUNT</td> <td>126 k/cumm</td> < td>150-400</td> </tr> <tr> <td>IMMATURE GRANULOCYTE % </td> <td>0.7 %</td> <td>0.0-0.6</td> </tr> <tr> <td>IMMATURE GRANULOCYTE #</td> <td>0.06 k/cumm</td> <td>0.00-0.09</td> </tr> <tr> <td>IMMATURE PLATELET FRACTION</td> <td>6.8 %</td> <td>1.1-6.1</td> </tr> <tr> <th colspan="10">METABOLIC PANEL, COMPREHN - 23:39</th> </tr> <tr> <td>POTASSIUM</td> < td>4.1 mmol/L</td> <td>3.5-5.3</td> </tr> <tr> < td>EST GFR (MDRD)</td> <td>59 mL/min</td> <td>> 59</td> </tr> <tr> <td>ANION GAP</td> <td>12 mmol/L</td> <td>5-15</td> </tr> <tr> <td>EST CrCl (CG)</td> <td>> 60 mL/min</td> <td>> 59</td> </tr> <tr> <td>GLUCOSE</td> <td>121 mg/dL</td> <td>70-99</ td> </tr> <tr> <td>CALCIUM</td> <td>8.6 mg/dL</ td> <td>8.5-10.1</td> </tr> <tr> <td>BLOOD UREA NITROGEN</td> <td>18 mg/dL</td> <td>7-20</td> </tr> <tr> <td>CREATININE</td> <td>1.3 mg/dL</td> <td> 0.7-1.3</td> </tr> <tr> <td>SODIUM</td> <td>141 mmol/L</td> <td>135-148</td> </tr> <tr> <td> CHLORIDE</td> <td>106 mmol/L</td> <td>98-110</td> </tr > <tr> <td>AST/SGOT</td> <td>55 Units/L</td> < td>10-37</td> </tr> <tr> <td>ALT/SGPT</td> <td> 53 Units/L</td> <td>< 66</td> </tr> <tr> <td> CARBON DIOXIDE</td> <td>23 mmol/L</td> <td>21-32</td> < /tr> <tr> <td>TOTAL PROTEIN</td> <td>7.6 gm/dL</td> <td>6.4-8.2</td> </tr> <tr> <td>ALBUMIN</td> <td>3.3 gm/dL</td> <td>3.4-5.0</td> </tr> <tr> <td>BILI TOTAL</td> <td>0.6 mg/dL</td> <td>0.0-1.0</td> </tr> <tr> <td>ALKALINE PHOSPHATASE TOTAL</td> < td>132 IU/L</td> <td>45-117</td> </tr> <tr> <th colspan="10">BLOOD CULTURE - 10/12/17 23:59</th> </tr> <tr> <td>Microbiology</td> <td> </td> <td /> </tr> <tr> < colspan="10">ARTERIAL BLOOD GAS - 10/13/17 00:20</th> </tr> <tr> <td>ABG BASE EXCESS</td> <td>-3.5 meq/L</ td> <td>-3.0-3.0</td> </tr> <tr> <td>ABG DEVICE< /td> <td>NC </td> <td /> </tr> <tr> <td >ABG BICARBONATE</td> <td>19.8 meq/L</td> <td>23.0-28.0</td> </tr> <tr> <td>ABG L/M</td> <td>4.0 </td> <td /> </tr> <tr> <td>ABG PCO2</td> <td>31 mm Hg</td> <td>34-45</td> </tr> <tr> <td>ABG PH< /td> <td>7.43 </td> <td>7.35-7.45</td> </tr> <tr > <td>ABG PO2</td> <td>68 mm Hg</td> <td>75-100</td> </tr> <tr> <td>ABG O2 SATURATION</td> <td>93 &# 37;</td> <td>93-100</td> </tr> <tr> <th colspan= "10">BLOOD CULTURE - 10/13/17 00:33</th> </tr> <tr> <td> Microbiology</td> <td> </td> <td /> </tr> <tr> < colspan="10">LABORATORY MISCELLANEOUS TEST - 10/13/17 02:07</th> </tr> <tr> <td>PERFORMING LAB</td> <td>[facility] </td> <td /> </tr> <tr> <td> LABORATORY TEST REF RANGE</td> <td>< 80 pg/mL </td> <td /> </tr> <tr> <td>LABORATORY TEST RESULT</td> <td> 38 pg/mL </td> <td /> </tr> <tr> <td>LABORATORY TEST</td> <td>FUNGITELL,SERUM </td> <td /> </tr> <tr> <th colspan="10">VIRUS RESPIRATORY PROFILE - 10/13/17 02:12</th > </tr> <tr> <td>Microbiology</td> <td> </td> <td /> </tr> <tr> <th colspan="10">LACTIC ACID - 10/13/17 02:15</th> </tr> <tr> <td>LACTIC ACID</td> <td>2.3 mmol/L</td> <td>0.5-2.0</td> </tr> <tr> < colspan="10">LACTIC ACID - 10/13/17 06:26</th> </tr> <tr > <td>LACTIC ACID</td> <td>3.8 mmol/L</td> <td>0.5- 2.0</td> </tr> <tr> <th colspan="10">LACTATE DEHYDROGENASE (LDH/LD) - 10/13/17 06:26</th> </tr> <tr> < td>LACTATE DEHYDROGENASE (LDH/LD)</td> <td>378 Units/L</td> < td>81-234</td> </tr> <tr> <th colspan="10">CD4/8 RATIO - 10/13/17 06:26</th> </tr> <tr> <td>CD 3/4 POSITIVE</td> <td>5 %</td> <td>34-68</td> </tr> <tr> <td>CD 3/4 ABSOLUTE</td> <td>39 #</td> <td>250-2400</td> </tr> <tr> <td>CD 3/8 POSITIVE</td> <td>77 &#37 ;</td> <td>6-41</td> </tr> <tr> <td>CD 3/8 ABSOLUTE</td> <td>602 #</td> <td>150-1800</td> </tr> <tr> <td>CD 4/8 RATIO</td> <td>0.1 </td> <td> 0.6-4.0</td> </tr> <tr> < colspan="10">LACTIC ACID - 08:59</th> </tr> <tr> <td>LACTIC ACID</td> <td>4.3 mmol/L</td> <td>0.5-2.0</td> </tr> <tr> < colspan="10">Comprehensive Metabolic Panel (CMP) - 10/13/17 18:04</th> </tr> <tr> <td>Albumin</td> <td>3.4 g/dL</td> <td>3.5-4.8</td> </tr> <tr> <td>Alkaline Phosphatase</td> <td>101 U/L</td> <td>26-104</td> </tr > <tr> <td>ALT (SGPT)</td> <td>40 U/L</td> <td >17-63</td> </tr> <tr> <td>Anion Gap</td> <td> 12 mEq/L</td> <td>3-20</td> </tr> <tr> <td>AST ( SGOT)</td> <td>54 U/L</td> <td>15-41</td> </tr> <tr> <td>Bilirubin Total</td> <td>0.9 mg/dL</td> <td> 0.2-1.2</td> </tr> <tr> <td>BUN</td> <td>22 mg/ dL</td> <td>4-20</td> </tr> <tr> <td>Calcium</td > <td>8.5 mg/dL</td> <td>8.6-10.0</td> </tr> <tr > <td>Chloride</td> <td>104 mEq/L</td> <td>99-109</td > </tr> <tr> <td>CO2</td> <td>20 mEq/L</td> <td>22-32</td> </tr> <tr> <td>Creatinine</td> <td>1.10 mg/dL</td> <td>0.64-1.27</td> </tr> <tr> <td>Globulin</td> <td>3.3 g/dL</td> <td>1.9-4.3</td> </tr> <tr> <td>Glucose</td> <td>101 mg/dL</td> <td>70-100</td> </tr> <tr> <td>Potassium</td> <td>4.6 mEq/L</td> <td>3.6-5.1</td> </tr> <tr> <td>Protein</td> <td>6.7 g/dL</td> <td>6.1-7.9</td> </tr> <tr> <td>Sodium</td> <td>136 mEq/L</td> <td>136-144</td> </tr> <tr> < colspan="10"> Magnesium - 10/13/17 18:04</th> </tr> <tr> <td>Magnesium< /td> <td>1.8 mg/dL</td> <td>1.8-2.5</td> </tr> < tr> < colspan="10">Phosphorus - 10/13/17 18:04</th> </tr> <tr> <td>Phosphorus</td> <td>4.4 mg/dL</td> <td> 2.4-4.7</td> </tr> <tr> < colspan="10">eGFR - 10/13/17 18:04</th> </tr> <tr> <td>eGFR</td> <td>>60 mL/min</td> <td>>60</td> </tr> <tr> <th colspan="10">Fungitell Assay - 10/13/17 18:04</th> </tr> <tr> <td>Fungitell Assay</td> <td><31 pg/mL</td> <td>< 80</td> </tr> <tr> <th colspan="10">CBC With Platelet and Differential - 10/13/17 18:14</th> </tr> <tr> <td> Absolute Basophils</td> <td>0.01 10*3/uL</td> <td>0.00-0.20</ td> </tr> <tr> <td>Absolute Eosinophils</td> <td >0.02 10*3/uL</td> <td>0.00-0.50</td> </tr> <tr> <td>Absolute Lymphocytes</td> <td>1.94 10*3/uL</td> <td>0.80 -3.30</td> </tr> <tr> <td>Absolute Monocytes</td> <td>0.82 10*3/uL</td> <td>0.30-1.00</td> </tr> <tr> <td>Absolute Neutrophils</td> <td>3.39 10*3/uL</td> < td>1.90-7.00</td> </tr> <tr> <td>Basophils</td> <td>0 %</td> <td>0-2</td> </tr> <tr> <td> Eosinophils</td> <td>0 %</td> <td>0-4</td> </tr> <tr> <td>HCT</td> <td>37.8 %</td> <td>42.0- 52.0</td> </tr> <tr> <td>HGB</td> <td>12.5 g/dL< /td> <td>14.0-18.0</td> </tr> <tr> <td>Immature Granulocytes</td> <td>0.6 %</td> <td>0.0-1.0</td> < /tr> <tr> <td>Lymphocytes</td> <td>31 %</td> <td>20-46</td> </tr> <tr> <td>MCH</td> <td> 29.3 pg</td> <td>27.0-32.0</td> </tr> <tr> <td> MCHC</td> <td>33.1 g/dL</td> <td>32.0-36.0</td> </tr> <tr> <td>MCV</td> <td>88.7 fL</td> <td>82.0- 99.0</td> </tr> <tr> <td>Monocytes</td> <td>13 & #37;</td> <td>4-11</td> </tr> <tr> <td>MPV</td> <td>11.3 fL</td> <td>9.4-12.3</td> </tr> <tr> <td>Neutrophils</td> <td>55 %</td> <td>51-75</td > </tr> <tr> <td>Nucleated RBC Automated</td> < td>0.0 /100 WBC</td> <td /> </tr> <tr> <td> Platelet Count</td> <td>127 K/uL</td> <td>150-400</td> </tr> <tr> <td>RBC</td> <td>4.26 10*6/uL</td> <td>4.60-6.20</td> </tr> <tr> <td>RDW</td> <td> 15.6 %</td> <td>11.5-14.5</td> </tr> <tr> < td>WBC</td> <td>6.2 K/uL</td> <td>4.8-10.8</td> </tr> <tr> <th colspan="10">Protime (INR) - 10/13/17 18:14</th> </tr> <tr> <td>INR</td> <td>1.0 NA</td> <td> 0.9-1.2</td> </tr> <tr> <th colspan="10">Lactic Acid Venous - 10/13/17 18:14</th> </tr> <tr> <td>Lactic Acid Venous</td> <td>2.2 mEq/L</td> <td>0.5-2.0</td> </tr> <tr> <th colspan="10">Troponin - 10/13/17 18:14</th> </tr > <tr> <td>Troponin</td> <td>0.09 ng/mL</td> < td><0.06</td> </tr> <tr> <th colspan="10">Lipid Panel - 10/13/17 18:14</th> </tr> <tr> <td>Cardiac Risk</td> <td>3.5 </td> <td>0.0-5.7</td> </tr> <tr> <td>Cholesterol</td> <td>149 mg/dL</td> <td>0-199</td> </tr> <tr> <td>HDL Cholesterol</td> <td>43 mg/dL</ td> <td>40-84</td> </tr> <tr> <td>LDL Cholesterol</td> <td>73 mg/dL</td> <td>0-130</td> </tr > <tr> <td>Triglycerides</td> <td>165 mg/dL</td> <td>0-149</td> </tr> <tr> <td>VLDL Cholesterol</td> <td>33 mg/dL</td> <td>0-28</td> </tr> <tr> <th colspan="10">CBC With Platelet and Differential - 10/14/17 04:19</th> </tr> <tr> <td>Absolute Basophils</td> <td>0.02 10*3/uL</td> <td>0.00-0.20</td> </tr> <tr> <td> Absolute Eosinophils</td> <td>0.15 10*3/uL</td> <td>0.00-0.50< /td> </tr> <tr> <td>Absolute Lymphocytes</td> < td>2.09 10*3/uL</td> <td>0.80-3.30</td> </tr> <tr> <td>Absolute Monocytes</td> <td>1.20 10*3/uL</td> <td>0.30 -1.00</td> </tr> <tr> <td>Absolute Neutrophils</td> <td>4.86 10*3/uL</td> <td>1.90-7.00</td> </tr> <tr> <td>Basophils</td> <td>0 %</td> <td>0-2</td> </tr> <tr> <td>Eosinophils</td> <td>2 %</td> <td>0-4</td> </tr> <tr> <td>HCT</td> < td>37.9 %</td> <td>42.0-52.0</td> </tr> <tr> <td>HGB</td> <td>12.5 g/dL</td> <td>14.0-18.0</td> </ tr> <tr> <td>Immature Granulocytes</td> <td>1.0 %</ td> <td>0.0-1.0</td> </tr> <tr> <td>Lymphocytes< /td> <td>25 %</td> <td>20-46</td> </tr> <tr > <td>MCH</td> <td>29.3 pg</td> <td>27.0-32.0</td> </tr> <tr> <td>MCHC</td> <td>33.0 g/dL</td> <td>32.0-36.0</td> </tr> <tr> <td>MCV</td> <td>88.8 fL</td> <td>82.0-99.0</td> </tr> <tr> < td>Monocytes</td> <td>14 %</td> <td>4-11</td> </tr > <tr> <td>MPV</td> <td>11.3 fL</td> <td>9.4- 12.3</td> </tr> <tr> <td>Neutrophils</td> <td> 58 %</td> <td>51-75</td> </tr> <tr> <td> Nucleated RBC Automated</td> <td>0.6 /100 WBC</td> <td /> </tr> <tr> <td>Platelet Count</td> <td>123 K/uL</td > <td>150-400</td> </tr> <tr> <td>RBC</td> <td>4.27 10*6/uL</td> <td>4.60-6.20</td> </tr> <tr> <td>RDW</td> <td>15.9 %</td> <td>11.5-14.5</td> </tr> <tr> <td>WBC</td> <td>8.4 K/uL</td> <td>4.8-10.8</td> </tr> <tr> <th colspan="10"> Lactic Acid Venous - 10/14/17 04:19</th> </tr> <tr> <td> Lactic Acid Venous</td> <td>3.2 mEq/L</td> <td>0.5-2.0</td> </tr> <tr> <th colspan="10">Magnesium - 10/14/17 04:19</th > </tr> <tr> <td>Magnesium</td> <td>2.0 mg/dL</ td> <td>1.8-2.5</td> </tr> <tr> <th colspan="10 ">Comprehensive Metabolic Panel (CMP) - 10/14/17 04:19</th> </tr> <tr> <td>Albumin</td> <td>3.2 g/dL</td> <td>3.5-4.8</ td> </tr> <tr> <td>Alkaline Phosphatase</td> <td >98 U/L</td> <td>26-104</td> </tr> <tr> <td>ALT (SGPT)</td> <td>66 U/L</td> <td>17-63</td> </tr> <tr> <td>Anion Gap</td> <td>7 mEq/L</td> <td>3-20</ td> </tr> <tr> <td>AST (SGOT)</td> <td>115 U/L</ td> <td>15-41</td> </tr> <tr> <td>Bilirubin Total</td> <td>0.7 mg/dL</td> <td>0.2-1.2</td> </tr> <tr> <td>BUN</td> <td>25 mg/dL</td> <td>4-20</ td> </tr> <tr> <td>Calcium</td> <td>8.3 mg/dL</ td> <td>8.6-10.0</td> </tr> <tr> <td>Chloride</ td> <td>106 mEq/L</td> <td>99-109</td> </tr> <tr > <td>CO2</td> <td>21 mEq/L</td> <td>22-32</td> </tr> <tr> <td>Creatinine</td> <td>1.32 mg/dL</td> <td>0.64-1.27</td> </tr> <tr> <td>Globulin</td> <td>3.4 g/dL</td> <td>1.9-4.3</td> </tr> <tr> <td>Glucose</td> <td>98 mg/dL</td> <td>70-100</td> </tr> <tr> <td>Potassium</td> <td>5.5 mEq/L</td> <td>3.6-5.1</td> </tr> <tr> <td>Protein</td> <td>6.6 g/dL</td> <td>6.1-7.9</td> </tr> <tr> <td>Sodium</td> <td>134 mEq/L</td> <td>136-144</td> </tr> <tr> <th colspan="10">eGFR - 10/14/17 04:19</th> </tr> <tr> <td>eGFR</td> <td>58 mL/min</td> <td>>60</td> </tr> <tr> <th colspan="10">Troponin - 10/14/17 04:19</th> </tr> <tr> <td>Troponin</td> <td>0.23 ng/mL</td> <td><0.06</td> </tr> <tr> <th colspan="10">B-Type Natriuretic Peptide - 10/14/17 04:19</th> < /tr> <tr> <td>B-Type Natriuretic Peptide</td> <td>1880 pg/mL</td> <td>0-99</td> </tr> <tr> <th colspan= "10">Urine Drug Screen - 10/14/17 09:06</th> </tr> <tr> < td>Amph/Meth/Ecstasy</td> <td>Positive NA</td> <td /> < /tr> <tr> <td>Barbiturates</td> <td>Negative NA</td> <td /> </tr> <tr> <td>Benzodiazepine</td> <td>Negative NA</td> <td /> </tr> <tr> <td> Cannabinoid</td> <td>Negative NA</td> <td /> </tr> <tr> <td>Cocaine</td> <td>Negative NA</td> <td / > </tr> <tr> <td>EDDP (Methadone met.)</td> <td> Negative NA</td> <td /> </tr> <tr> <td>Opiate</ td> <td>Positive NA</td> <td /> </tr> <tr> <td>Phencyclidine (PCP)</td> <td>Negative NA</td> <td /> </tr> <tr> <th colspan="10">Troponin - 10/14/17 09:25</ th> </tr> <tr> <td>Troponin</td> <td>0.46 ng/mL< /td> <td><0.06</td> </tr> <tr> <th colspan= "10">Blood Gases, Arterial (RT) - 10/14/17 10:35</th> </tr> <tr> <td>Arterial Base Excess</td> <td>-7 NA</td> <td>0-2< /td> </tr> <tr> <td>Arterial Bicarbonate</td> < td>15 mEq/L</td> <td>22-26</td> </tr> <tr> <td> Arterial O2 Saturation</td> <td>90.0 %</td> <td>90.0-97.0< /td> </tr> <tr> <td>Arterial PCO2</td> <td>23 mmHg</td> <td>35-45</td> </tr> <tr> <td> Arterial PH</td> <td>7.43 NA</td> <td>7.35-7.45</td> </ tr> <tr> <td>Arterial PO2</td> <td>58 mmHg</td> <td>80-100</td> </tr> <tr> <td>Arterial LPM</td> <td>8.00 L/min</td> <td /> </tr> <tr> <td> O2 Panel</td> <td>SEE BELOW </td> <td /> </tr> < tr> < colspan="10">Lactic Acid Venous - 10/14/17 12:38</th> </ tr> <tr> <td>Lactic Acid Venous</td> <td>3.8 mEq/L</td > <td>0.5-2.0</td> </tr> <tr> <th colspan="10"> Basic Metabolic Panel (BMP) - 10/14/17 12:38</th> </tr> <tr> <td>Anion Gap</td> <td>13 mEq/L</td> <td>3-20</td> </tr> <tr> <td>BUN</td> <td>30 mg/dL</td> < td>4-20</td> </tr> <tr> <td>Calcium</td> <td> 8.0 mg/dL</td> <td>8.6-10.0</td> </tr> <tr> <td> Chloride</td> <td>104 mEq/L</td> <td>99-109</td> </tr> <tr> <td>CO2</td> <td>17 mEq/L</td> <td>22-32 </td> </tr> <tr> <td>Creatinine</td> <td>1.47 mg /dL</td> <td>0.64-1.27</td> </tr> <tr> <td> Glucose</td> <td>70 mg/dL</td> <td>70-100</td> </tr> <tr> <td>Potassium</td> <td>6.2 mEq/L</td> <td> 3.6-5.1</td> </tr> <tr> <td>Sodium</td> <td>134 mEq/L</td> <td>136-144</td> </tr> <tr> <th colspan="10">eGFR - 10/14/17 12:38</th> </tr> <tr> <td> eGFR</td> <td>51 mL/min</td> <td>>60</td> </tr> <tr> <th colspan="10">Glucose NPT - 10/14/17 13:43</th> </ tr> <tr> <td>Glucose NPT</td> <td>47 mg/dL</td> <td>70-100</td> </tr> <tr> <th colspan="10">Glucose NPT - 10/14/17 14:12</th> </tr> <tr> <td>Glucose NPT</td > <td>43 mg/dL</td> <td>70-100</td> </tr> <tr> <th colspan="10">Glucose NPT - 10/14/17 14:33</th> </tr> <tr> <td>Glucose NPT</td> <td>67 mg/dL</td> <td>70 -100</td> </tr> <tr> <th colspan="10">Glucose NPT - 09/30 14:54</th> </tr> <tr> <td>Glucose NPT</td> <td>97 mg/dL</td> <td>70-100</td> </tr> <tr> < colspan="10">Urinalysis with reflex microscopic - 10/14/17 15:12</th> </tr> <tr> <td>Appearance</td> <td>Cloudy NA</td> <td /> </tr> <tr> <td>Bilirubin</td> <td> Negative NA</td> <td>Negative</td> </tr> <tr> < td>Blood</td> <td>Pos 1+ NA</td> <td>Negative</td> </tr > <tr> <td>Color</td> <td>Yellow NA</td> <td / > </tr> <tr> <td>Glucose, Urine</td> <td>Pos 1+ </td> <td>Negative</td> </tr> <tr> <td>Ketones</ td> <td>Negative </td> <td>Negative</td> </tr> < tr> <td>Leukocyte Esterase</td> <td>Negative NA</td> <td>Negative</td> </tr> <tr> <td>Nitrites</td> < td>Negative NA</td> <td>Negative</td> </tr> <tr> <td>pH</td> <td>5.0 NA</td> <td>5.0-8.0</td> </tr> <tr> <td>Protein</td> <td>Pos 2+ NA</td> <td> Negative</td> </tr> <tr> <td>Specific [place]</td> <td>1.020 NA</td> <td>1.003-1.030</td> </tr> <tr> <td>UA Collection type</td> <td>Clean Catch NA</td> < td /> </tr> <tr> <td>Urobilinogen</td> <td>4.0 mg/dL</td> <td><1.0</td> </tr> <tr> < colspan="10">Urine Microscopic - 10/14/17 15:12</th> </tr> <tr> <td>Bacteria</td> <td>Rare NA</td> <td /> </tr > <tr> <td>Epithelial Cells</td> <td>0 /HPF</td> <td /> </tr> <tr> <td>Hyaline Casts</td> <td >4 /LPF</td> <td>0-3</td> </tr> <tr> <td>RBC, Urine</td> <td>2 /HPF</td> <td>0-2</td> </tr> < tr> <td>Urine Mucus</td> <td>Present NA</td> <td /> </tr> <tr> <td>WBC, Urine</td> <td>0 /HPF</td> <td>0-4</td> </tr> <tr> < colspan="10">Sodium Random Urine - 10/14/17 15:12</th> </tr> <tr> <td>Sodium Random Urine</td> <td>101 mEq/L</td> <td /> </tr> <tr> < colspan="10">Creatinine Random Urine - 10/14/17 15:12</th> </tr> <tr> <td>Creatinine Random Urine</td> <td >80 mg/dL</td> <td /> </tr> <tr> < colspan="10 ">Lactic Acid Venous - 10/14/17 16:06</th> </tr> <tr> <td >Lactic Acid Venous</td> <td>2.5 mEq/L</td> <td>0.5-2.0</td> </tr> <tr> < colspan="10">Troponin - 10/14/17 16:06</th > </tr> <tr> <td>Troponin</td> <td>1.14 ng/mL</ td> <td><0.06</td> </tr> <tr> <th colspan="10 ">Basic Metabolic Panel (BMP) - 10/14/17 16:06</th> </tr> <tr> <td>Anion Gap</td> <td>10 mEq/L</td> <td>3-20</td> </tr> <tr> <td>BUN</td> <td>31 mg/dL</td> <td>4-20</td> </tr> <tr> <td>Calcium</td> <td> 8.0 mg/dL</td> <td>8.6-10.0</td> </tr> <tr> <td> Chloride</td> <td>105 mEq/L</td> <td>99-109</td> </tr> <tr> <td>CO2</td> <td>17 mEq/L</td> <td>22-32 </td> </tr> <tr> <td>Creatinine</td> <td>1.44 mg /dL</td> <td>0.64-1.27</td> </tr> <tr> <td> Glucose</td> <td>69 mg/dL</td> <td>70-100</td> </tr> <tr> <td>Potassium</td> <td>4.5 mEq/L</td> <td> 3.6-5.1</td> </tr> <tr> <td>Sodium</td> <td>132 mEq/L</td> <td>136-144</td> </tr> <tr> <th colspan="10">eGFR - 10/14/17 16:06</th> </tr> <tr> <td> eGFR</td> <td>52 mL/min</td> <td>>60</td> </tr> <tr> <th colspan="10">Procalcitonin - 10/14/17 16:06</th> </ tr> <tr> <td>Procalcitonin</td> <td>0.17 ng/mL</td> <td>0.00-0.09</td> </tr> <tr> <th colspan="10"> Hepatitis C RNA - 10/14/17 16:06</th> </tr> <tr> <td>HCV Log10</td> <td>7.2 NA</td> <td /> </tr> <tr> <td>Hepatitis C viral RNA</td> <td>[id number] IU/mL</td> <td /> </tr> <tr> <th colspan="10">Glucose NPT - 16:59</th> </tr> <tr> <td>Glucose NPT</td> < td>46 mg/dL</td> <td>70-100</td> </tr> <tr> <th colspan="10">Glucose NPT - 10/14/17 17:27</th> </tr> <tr> <td>Glucose NPT</td> <td>47 mg/dL</td> <td>70-100</td> </tr> <tr> <th colspan="10">Glucose NPT - 10/14/17 17:46</ th> </tr> <tr> <td>Glucose NPT</td> <td>122 mg/ dL</td> <td>70-100</td> </tr> <tr> <th colspan= "10">CBC With Platelet No Differential - 10/14/17 18:18</th> </tr> <tr> <td>HCT</td> <td>36.3 %</td> <td>42.0-52.0 </td> </tr> <tr> <td>HGB</td> <td>11.9 g/dL</td > <td>14.0-18.0</td> </tr> <tr> <td>MCH</td> <td>29.4 pg</td> <td>27.0-32.0</td> </tr> <tr> <td>MCHC</td> <td>32.8 g/dL</td> <td>32.0-36.0</td> </tr> <tr> <td>MCV</td> <td>89.6 fL</td> <td>82.0-99.0</td> </tr> <tr> <td>MPV</td> <td> 11.4 fL</td> <td>9.4-12.3</td> </tr> <tr> <td> Platelet Count</td> <td>97 K/uL</td> <td>150-400</td> < /tr> <tr> <td>RBC</td> <td>4.05 10*6/uL</td> < td>4.60-6.20</td> </tr> <tr> <td>RDW</td> <td> 15.7 %</td> <td>11.5-14.5</td> </tr> <tr> < td>WBC</td> <td>6.8 K/uL</td> <td>4.8-10.8</td> </tr> <tr> <th colspan="10">PTT/PT (INR) - 10/14/17 18:18</th> </tr> <tr> <td>INR</td> <td>1.2 NA</td> <td> 0.9-1.2</td> </tr> <tr> <th colspan="10">Glucose NPT - 10/14/17 22:25</th> </tr> <tr> <td>Glucose NPT</td> <td>105 mg/dL</td> <td>70-100</td> </tr> <tr> <th colspan="10">Troponin - 10/14/17 22:33</th> </tr> <tr> <td>Troponin</td> <td>1.18 ng/mL</td> <td><0.06</td > </tr> <tr> <th colspan="10">PTT - 10/15/17 00:19</th> </tr> <tr> <td>PTT</td> <td>86.5 seconds</td> <td>25.0-35.0</td> </tr> <tr> <th colspan="10"> Glucose NPT - 10/15/17 02:21</th> </tr> <tr> <td> Glucose NPT</td> <td>102 mg/dL</td> <td>70-100</td> </ tr> <tr> <th colspan="10">Troponin - 10/15/17 03:00</th> </tr> <tr> <td>Troponin</td> <td>1.04 ng/mL</td> <td><0.06</td> </tr> <tr> <th colspan="10">Lactic Acid Venous - 10/15/17 03:14</th> </tr> <tr> <td>Lactic Acid Venous</td> <td>1.5 mEq/L</td> <td>0.5-2.0</td> </ tr> <tr> <th colspan="10">Hepatitis Panel - 10/15/17 03:14</th> </tr> <tr> <td>Hepatitis A Antibody IGM</td> < td>Negative </td> <td /> </tr> <tr> <td> Hepatitis B Surface Antigen</td> <td>Negative </td> <td /> </tr> <tr> <td>Hepatitis Core Ab IGM</td> <td> Negative </td> <td /> </tr> <tr> <th colspan="10 ">CBC With Platelet and Differential - 10/15/17 03:15</th> </tr> < tr> <td>Absolute Basophils</td> <td>0.01 10*3/uL</td> <td>0.00-0.20</td> </tr> <tr> <td>Absolute Eosinophils< /td> <td>0.00 10*3/uL</td> <td>0.00-0.50</td> </tr> <tr> <td>Absolute Lymphocytes</td> <td>0.76 10*3/uL</td> <td>0.80-3.30</td> </tr> <tr> <td>Absolute Monocytes</td> <td>0.18 10*3/uL</td> <td>0.30-1.00</td> </tr> <tr> <td>Absolute Neutrophils</td> <td>2.66 10* 3/uL</td> <td>1.90-7.00</td> </tr> <tr> <td> Basophils</td> <td>0 %</td> <td>0-2</td> </tr> <tr> <td>Eosinophils</td> <td>0 %</td> <td>0- 4</td> </tr> <tr> <td>HCT</td> <td>32.7 %</ td> <td>42.0-52.0</td> </tr> <tr> <td>HGB</td> <td>10.7 g/dL</td> <td>14.0-18.0</td> </tr> <tr > <td>Immature Granulocytes</td> <td>1.4 %</td> < td>0.0-1.0</td> </tr> <tr> <td>Lymphocytes</td> <td>21 %</td> <td>20-46</td> </tr> <tr> <td> MCH</td> <td>28.8 pg</td> <td>27.0-32.0</td> </tr> <tr> <td>MCHC</td> <td>32.7 g/dL</td> <td>32.0- 36.0</td> </tr> <tr> <td>MCV</td> <td>88.1 fL</ td> <td>82.0-99.0</td> </tr> <tr> <td>Monocytes< /td> <td>5 %</td> <td>4-11</td> </tr> <tr> <td>MPV</td> <td>11.4 fL</td> <td>9.4-12.3</td> </tr> <tr> <td>Neutrophils</td> <td>73 %</td> <td>51-75</td> </tr> <tr> <td>Nucleated RBC Automated</td> <td>1.1 /100 WBC</td> <td /> </tr> <tr> <td>Platelet Count</td> <td>107 K/uL</td> <td >150-400</td> </tr> <tr> <td>RBC</td> <td>3.71 10*6/uL</td> <td>4.60-6.20</td> </tr> <tr> <td> RDW</td> <td>15.7 %</td> <td>11.5-14.5</td> </tr> <tr> <td>WBC</td> <td>3.7 K/uL</td> <td>4.8- 10.8</td> </tr> <tr> <th colspan="10">Magnesium - 03:15</th> </tr> <tr> <td>Magnesium</td> <td> 1.9 mg/dL</td> <td>1.8-2.5</td> </tr> <tr> <th colspan="10">Comprehensive Metabolic Panel (CMP) - 10/15/17 03:15</th> </ tr> <tr> <td>Albumin</td> <td>2.8 g/dL</td> < td>3.5-4.8</td> </tr> <tr> <td>Alkaline Phosphatase</td> <td>96 U/L</td> <td>26-104</td> </tr> <tr> <td>ALT (SGPT)</td> <td>1858 U/L</td> <td>17-63</td> </tr> <tr> <td>Anion Gap</td> <td>7 mEq/L</td> <td>3-20</td> </tr> <tr> <td>Bilirubin Total</td> <td>1.3 mg/dL</td> <td>0.2-1.2</td> </tr> <tr> <td>BUN</td> <td>29 mg/dL</td> <td>4-20</td> </tr> <tr> <td>Calcium</td> <td>7.7 mg/dL</td> <td>8.6-10.0</td> </tr> <tr> <td>Chloride</td> <td>100 mEq/L</td> <td>99-109</td> </tr> <tr> <td>CO2</td> <td>20 mEq/L</td> <td>22-32</td> </tr> <tr> <td>Creatinine</td> <td>1.29 mg/dL</td> <td >0.64-1.27</td> </tr> <tr> <td>Globulin</td> <td >2.8 g/dL</td> <td>1.9-4.3</td> </tr> <tr> <td> Glucose</td> <td>345 mg/dL</td> <td>70-100</td> </tr> <tr> <td>Potassium</td> <td>4.2 mEq/L</td> <td >3.6-5.1</td> </tr> <tr> <td>Protein</td> <td> 5.6 g/dL</td> <td>6.1-7.9</td> </tr> <tr> <td> Sodium</td> <td>127 mEq/L</td> <td>136-144</td> </tr> <tr> <th colspan="10">eGFR - 10/15/17 03:15</th> </tr> <tr> <td>eGFR</td> <td>59 mL/min</td> <td>> 60</td> </tr> <tr> <th colspan="10">Procalcitonin - 10/15 03:15</th> </tr> <tr> <td>Procalcitonin</td> <td>0.21 ng/mL</td> <td>0.00-0.09</td> </tr> <tr> < colspan="10">Acetaminophen - 10/15/17 03:15</th> </tr> < tr> <td>Acetaminophen</td> <td><10 mcg/mL</td> <td >10-30</td> </tr> <tr> <th colspan="10">Glucose NPT - 05:51</th> </tr> <tr> <td>Glucose NPT</td> <td>105 mg/dL</td> <td>70-100</td> </tr> <tr> <th colspan="10">Protime (INR) - 10/15/17 06:17</th> </tr> <tr > <td>INR</td> <td>1.3 NA</td> <td>0.9-1.2</td> </tr> <tr> <th colspan="10">PTT - 10/15/17 06:17</th> </tr> <tr> <td>PTT</td> <td>98.6 seconds</td> <td>25.0-35.0</td> </tr> <tr> <th colspan="10">Troponin - 10/15/17 09:07</th> </tr> <tr> <td>Troponin</td> <td>1.49 ng/mL</td> <td><0.06</td> </tr> <tr> <th colspan="10">Glucose NPT - 10/15/17 11:44</th> </tr> < tr> <td>Glucose NPT</td> <td>289 mg/dL</td> <td>70- 100</td> </tr> <tr> <th colspan="10">Urinalysis with reflex microscopic - 10/15/17 14:17</th> </tr> <tr> <td> Appearance</td> <td>Sl Cloudy NA</td> <td /> </tr> <tr> <td>Bilirubin</td> <td>Negative NA</td> <td> Negative</td> </tr> <tr> <td>Blood</td> <td>Pos 1+ NA</td> <td>Negative</td> </tr> <tr> <td> Color</td> <td>Yellow NA</td> <td /> </tr> <tr> <td>Glucose, Urine</td> <td>Negative </td> <td> Negative</td> </tr> <tr> <td>Ketones</td> <td> Negative </td> <td>Negative</td> </tr> <tr> <td> Leukocyte Esterase</td> <td>Negative NA</td> <td>Negative</td > </tr> <tr> <td>Nitrites</td> <td>Negative NA</ td> <td>Negative</td> </tr> <tr> <td>pH</td> <td>5.0 NA</td> <td>5.0-8.0</td> </tr> <tr> <td>Protein</td> <td>Pos 1+ NA</td> <td>Negative</td> </tr> <tr> <td>Specific [place]</td> <td>1.010 NA</ td> <td>1.003-1.030</td> </tr> <tr> <td>UA Collection type</td> <td>Clean Catch NA</td> <td /> </ tr> <tr> <td>Urobilinogen</td> <td>Negative mg/dL</td> <td><1.0</td> </tr> <tr> < colspan="10"> Urine Microscopic - 10/15/17 14:17</th> </tr> <tr> <td> Bacteria</td> <td>Rare NA</td> <td /> </tr> <tr > <td>Epithelial Cells</td> <td>0 /HPF</td> <td /> </tr> <tr> <td>Hyaline Casts</td> <td>1 /LPF</td > <td>0-3</td> </tr> <tr> <td>RBC, Urine</td> <td>0 /HPF</td> <td>0-2</td> </tr> <tr> <td>Urine Mucus</td> <td>Present NA</td> <td /> </tr> <tr> <td>WBC, Urine</td> <td>0 /HPF</td> <td>0 -4</td> </tr> <tr> < colspan="10">Acetone - 10/15/17 14 :46</th> </tr> <tr> <td>Acetone</td> <td> Negative mg/dL</td> <td>Negative</td> </tr> <tr> < colspan="10">Cortisol AM - 10/15/17 14:46</th> </tr> <tr> <td>Cortisol AM</td> <td>8 ug/dL</td> <td>7-18</td> </tr> <tr> < colspan="10">Insulin - 10/15/17 14:46</th> </tr> <tr> <td>Insulin</td> <td>89 uIU/mL</td> <td>2-23</td> </tr> <tr> <th colspan="10"> Troponin - 10/15/17 14:46</th> </tr> <tr> <td>Troponin</ td> <td>2.07 ng/mL</td> <td><0.06</td> </tr> <tr> <th colspan="10">Hepatic Function Panel - 10/15/17 14:46</th> </tr> <tr> <td>Albumin</td> <td>2.9 g/dL</td> <td>3.5-4.8</td> </tr> <tr> <td>Alkaline Phosphatase </td> <td>99 U/L</td> <td>26-104</td> </tr> <tr > <td>ALT (SGPT)</td> <td>1721 U/L</td> <td>17-63</td > </tr> <tr> <td>Bilirubin Direct</td> <td>0.6 mg/dL</td> <td>0.0-0.2</td> </tr> <tr> <td> Bilirubin Indirect</td> <td>0.6 mg/dL</td> <td>0.0-1.0</td> </tr> <tr> <td>Bilirubin Total</td> <td>1.2 mg/dL </td> <td>0.2-1.2</td> </tr> <tr> <td>Protein</ td> <td>6.0 g/dL</td> <td>6.1-7.9</td> </tr> <tr > <th colspan="10">Beta-Hydroxybutyrate, Serum - 10/15/17 14:46</th> </tr> <tr> <td>Beta-Hydroxybutyrate, Serum</td> < td>0.1 mmol/L</td> <td><0.4</td> </tr> <tr> < th colspan="10">Growth Hormone - 10/15/17 14:46</th> </tr> <tr> <td>Growth Hormone</td> <td>0.36 ng/mL</td> <td /> </tr> <tr> <th colspan="10">Glucose NPT - 10/15/17 15:31</ th> </tr> <tr> <td>Glucose NPT</td> <td>122 mg/ dL</td> <td>70-100</td> </tr> <tr> <th colspan= "10">Glucose NPT - 10/15/17 20:14</th> </tr> <tr> <td> Glucose NPT</td> <td>103 mg/dL</td> <td>70-100</td> </ tr> <tr> <th colspan="10">Troponin - 10/15/17 21:31</th> </tr> <tr> <td>Troponin</td> <td>3.52 ng/mL</td> <td><0.06</td> </tr> <tr> <th colspan="10">CBC With Platelet No Differential - 10/16/17 03:45</th> </tr> <tr> <td>HCT</td> <td>34.5 %</td> <td>42.0-52.0</td> </tr> <tr> <td>HGB</td> <td>11.2 g/dL</td> <td>14.0-18.0</td> </tr> <tr> <td>MCH</td> < td>28.7 pg</td> <td>27.0-32.0</td> </tr> <tr> < td>MCHC</td> <td>32.5 g/dL</td> <td>32.0-36.0</td> </tr > <tr> <td>MCV</td> <td>88.5 fL</td> <td>82.0- 99.0</td> </tr> <tr> <td>MPV</td> <td>11.9 fL</ td> <td>9.4-12.3</td> </tr> <tr> <td>Platelet Count</td> <td>144 K/uL</td> <td>150-400</td> </tr> <tr> <td>RBC</td> <td>3.90 10*6/uL</td> <td>4.60 -6.20</td> </tr> <tr> <td>RDW</td> <td>15.9 &#37 ;</td> <td>11.5-14.5</td> </tr> <tr> <td>WBC</td > <td>8.6 K/uL</td> <td>4.8-10.8</td> </tr> <tr > < colspan="10">Lactic Acid Venous - 10/16/17 03:45</th> </tr > <tr> <td>Lactic Acid Venous</td> <td>1.5 mEq/L</td> <td>0.5-2.0</td> </tr> <tr> < colspan="10"> PTT - 10/16/17 03:45</th> </tr> <tr> <td>PTT</td> <td>140.9 seconds</td> <td>25.0-35.0</td> </tr> <tr> < colspan="10">Troponin - 10/16/17 05:37</th> </tr> <tr > <td>Troponin</td> <td>2.97 ng/mL</td> <td><0.06< /td> </tr> <tr> <th colspan="10">Comprehensive Metabolic Panel (CMP) - 10/16/17 05:37</th> </tr> <tr> <td>Albumin< /td> <td>3.0 g/dL</td> <td>3.5-4.8</td> </tr> < tr> <td>Alkaline Phosphatase</td> <td>101 U/L</td> < td>26-104</td> </tr> <tr> <td>ALT (SGPT)</td> < td>1366 U/L</td> <td>17-63</td> </tr> <tr> <td> Anion Gap</td> <td>12 mEq/L</td> <td>3-20</td> </tr> <tr> <td>AST (SGOT)</td> <td>1876 U/L</td> <td> 15-41</td> </tr> <tr> <td>Bilirubin Total</td> < td>1.4 mg/dL</td> <td>0.2-1.2</td> </tr> <tr> < td>BUN</td> <td>35 mg/dL</td> <td>4-20</td> </tr> <tr> <td>Calcium</td> <td>7.7 mg/dL</td> <td>8.6- 10.0</td> </tr> <tr> <td>Chloride</td> <td>100 mEq/L</td> <td>99-109</td> </tr> <tr> <td>CO2</ td> <td>19 mEq/L</td> <td>22-32</td> </tr> <tr> <td>Creatinine</td> <td>1.43 mg/dL</td> <td>0.64- 1.27</td> </tr> <tr> <td>Globulin</td> <td>3.0 g /dL</td> <td>1.9-4.3</td> </tr> <tr> <td>Glucose </td> <td>128 mg/dL</td> <td>70-100</td> </tr> < tr> <td>Potassium</td> <td>4.3 mEq/L</td> <td>3.6-5.1 </td> </tr> <tr> <td>Protein</td> <td>6.0 g/dL</ td> <td>6.1-7.9</td> </tr> <tr> <td>Sodium</td> <td>131 mEq/L</td> <td>136-144</td> </tr> <tr> <th colspan="10">eGFR - 10/16/17 05:37</th> </tr> <tr> <td>eGFR</td> <td>53 mL/min</td> <td>>60</td> </tr> <tr> <th colspan="10">Glucose NPT - 10/16/17 06:17</ th> </tr> <tr> <td>Glucose NPT</td> <td>129 mg/ dL</td> <td>70-100</td> </tr> <tr> <th colspan= "10">PTT - 10/16/17 09:10</th> </tr> <tr> <td>PTT</td> <td>102.6 seconds</td> <td>25.0-35.0</td> </tr> < tr> <th colspan="10">Glucose NPT - 10/16/17 11:53</th> </tr> <tr> <td>Glucose NPT</td> <td>90 mg/dL</td> < td>70-100</td> </tr> <tr> <th colspan="10">Blood Gases, Arterial (RT) - 10/16/17 16:43</th> </tr> <tr> <td> Arterial Base Excess</td> <td>-5 NA</td> <td>0-2</td> < /tr> <tr> <td>Arterial Bicarbonate</td> <td>19 mEq/L</ td> <td>22-26</td> </tr> <tr> <td>Arterial O2 Saturation</td> <td>93.2 %</td> <td>90.0-97.0</td> </tr> <tr> <td>Arterial PCO2</td> <td>29 mmHg</td> <td>35-45</td> </tr> <tr> <td>Arterial PH</td> <td>7.43 NA</td> <td>7.35-7.45</td> </tr> <tr> <td>Arterial PO2</td> <td>66 mmHg</td> <td>80-100</td> </tr> <tr> <td>Arterial LPM</td> <td>2.00 L/min< /td> <td /> </tr> <tr> <td>O2 Panel</td> <td>SEE BELOW </td> <td /> </tr> <tr> <th colspan="10">PTT - 10/16/17 16:45</th> </tr> <tr> <td>PTT </td> <td>84.9 seconds</td> <td>25.0-35.0</td> </tr> <tr> <th colspan="10">Troponin - 10/16/17 16:45</th> </tr > <tr> <td>Troponin</td> <td>2.02 ng/mL</td> < td><0.06</td> </tr> <tr> <th colspan="10">Hemoglobin A1C - 10/16/17 16:45</th> </tr> <tr> <td>Hemoglobin A1C</ td> <td>5.7 %</td> <td>4.1-5.6</td> </tr> < tr> <th colspan="10">Estimated Average Glucose - 10/16/17 16:45</th> </tr> <tr> <td>Estimated Average Glucose</td> <td >116.9 mg/dL</td> <td /> </tr> <tr> <th colspan= "10">Glucose NPT - 10/16/17 20:39</th> </tr> <tr> <td> Glucose NPT</td> <td>192 mg/dL</td> <td>70-100</td> </ tr> <tr> <th colspan="10">Glucose NPT - 10/17/17 05:38</th> </tr> <tr> <td>Glucose NPT</td> <td>126 mg/dL</td > <td>70-100</td> </tr> <tr> < colspan="10"> Protime (INR) - 10/17/17 09:07</th> </tr> <tr> <td>INR</ td> <td>1.1 NA</td> <td>0.9-1.2</td> </tr> <tr> <th colspan="10">PTT - 10/17/17 09:07</th> </tr> <tr> <td>PTT</td> <td>61.7 seconds</td> <td>25.0-35.0</td> </tr> <tr> < colspan="10">CBC With Platelet and Differential - 10/17/17 09:07</th> </tr> <tr> <td>HCT</td > <td>34.7 %</td> <td>42.0-52.0</td> </tr> < tr> <td>HGB</td> <td>11.5 g/dL</td> <td>14.0-18.0</td > </tr> <tr> <td>MCH</td> <td>29.4 pg</td> <td>27.0-32.0</td> </tr> <tr> <td>MCHC</td> <td>33.1 g/dL</td> <td>32.0-36.0</td> </tr> <tr> <td>MCV</td> <td>88.7 fL</td> <td>82.0-99.0</td> </ tr> <tr> <td>MPV</td> <td>11.9 fL</td> <td>9.4 -12.3</td> </tr> <tr> <td>Platelet Count</td> < td>192 K/uL</td> <td>150-400</td> </tr> <tr> <td >RBC</td> <td>3.91 10*6/uL</td> <td>4.60-6.20</td> </tr > <tr> <td>RDW</td> <td>16.0 %</td> <td> 11.5-14.5</td> </tr> <tr> <td>WBC</td> <td>15.6 K/uL</td> <td>4.8-10.8</td> </tr> <tr> <th colspan="10">Comprehensive Metabolic Panel (CMP) - 10/17/17 09:07</th> </ tr> <tr> <td>Albumin</td> <td>3.0 g/dL</td> < td>3.5-4.8</td> </tr> <tr> <td>Alkaline Phosphatase</td> <td>112 U/L</td> <td>26-104</td> </tr> <tr> <td>ALT (SGPT)</td> <td>916 U/L</td> <td>17-63</td> </tr> <tr> <td>Anion Gap</td> <td>11 mEq/L</td> <td>3-20</td> </tr> <tr> <td>AST (SGOT)</td> <td>662 U/L</td> <td>15-41</td> </tr> <tr> <td>Bilirubin Total</td> <td>1.4 mg/dL</td> <td>0.2-1.2</td > </tr> <tr> <td>BUN</td> <td>33 mg/dL</td> <td>4-20</td> </tr> <tr> <td>Calcium</td> <td>8.1 mg/dL</td> <td>8.6-10.0</td> </tr> <tr> <td>Chloride</td> <td>99 mEq/L</td> <td>99-109</td> </ tr> <tr> <td>CO2</td> <td>21 mEq/L</td> <td>22 -32</td> </tr> <tr> <td>Creatinine</td> <td> 1.26 mg/dL</td> <td>0.64-1.27</td> </tr> <tr> < td>Globulin</td> <td>3.1 g/dL</td> <td>1.9-4.3</td> </ tr> <tr> <td>Glucose</td> <td>112 mg/dL</td> < td>70-100</td> </tr> <tr> <td>Potassium</td> <td >4.3 mEq/L</td> <td>3.6-5.1</td> </tr> <tr> <td> Protein</td> <td>6.1 g/dL</td> <td>6.1-7.9</td> </tr> <tr> <td>Sodium</td> <td>131 mEq/L</td> <td> 136-144</td> </tr> <tr> < colspan="10">eGFR - 10/17/17 09:07</th> </tr> <tr> <td>eGFR</td> <td>>60 mL/min</td> <td>>60</td> </tr> <tr> <th colspan="10">TSH with Reflex Free T4 - 10/17/17 09:07</th> </tr> < tr> <td>TSH with Reflex Free T4</td> <td>3.50 uIU/mL</td> <td>0.35-4.94</td> </tr> <tr> <th colspan="10">B- Type Natriuretic Peptide - 10/17/17 09:10</th> </tr> <tr> <td>B-Type Natriuretic Peptide</td> <td>2027 pg/mL</td> <td> 0-99</td> </tr> <tr> <th colspan="10">Procalcitonin - 12/29 09:10</th> </tr> <tr> <td>Procalcitonin</td> <td>0.11 ng/mL</td> <td>0.00-0.09</td> </tr> <tr> <th colspan="10">Blood Gases, Arterial (RT) - 10/17/17 11:16</th> </tr> <tr> <td>Arterial Base Excess</td> <td>-2 NA</td > <td>0-2</td> </tr> <tr> <td>Arterial Bicarbonate</td> <td>22 mEq/L</td> <td>22-26</td> </tr > <tr> <td>Arterial O2 Saturation</td> <td>92.4 %</ td> <td>90.0-97.0</td> </tr> <tr> <td>Arterial PCO2</td> <td>33 mmHg</td> <td>35-45</td> </tr> <tr> <td>Arterial PH</td> <td>7.44 NA</td> <td>7.35- 7.45</td> </tr> <tr> <td>Arterial PO2</td> <td> 63 mmHg</td> <td>80-100</td> </tr> <tr> <th colspan="10">Glucose NPT - 10/17/17 17:43</th> </tr> <tr> <td>Glucose NPT</td> <td>125 mg/dL</td> <td>70-100</td> </tr> <tr> <th colspan="10">CBC With Platelet and Differential - 10/18/17 04:46</th> </tr> <tr> <td>HCT</td > <td>34.3 %</td> <td>42.0-52.0</td> </tr> < tr> <td>HGB</td> <td>11.1 g/dL</td> <td>14.0-18.0</td > </tr> <tr> <td>MCH</td> <td>28.8 pg</td> <td>27.0-32.0</td> </tr> <tr> <td>MCHC</td> <td>32.4 g/dL</td> <td>32.0-36.0</td> </tr> <tr> <td>MCV</td> <td>89.1 fL</td> <td>82.0-99.0</td> </ tr> <tr> <td>MPV</td> <td>11.8 fL</td> <td>9.4 -12.3</td> </tr> <tr> <td>Platelet Count</td> < td>180 K/uL</td> <td>150-400</td> </tr> <tr> <td >RBC</td> <td>3.85 10*6/uL</td> <td>4.60-6.20</td> </tr > <tr> <td>RDW</td> <td>16.0 %</td> <td> 11.5-14.5</td> </tr> <tr> <td>WBC</td> <td>9.8 K /uL</td> <td>4.8-10.8</td> </tr> <tr> <th colspan="10">Protime (INR) - 10/18/17 04:46</th> </tr> <tr> <td>INR</td> <td>1.0 NA</td> <td>0.9-1.2</td> </tr > <tr> <th colspan="10">PTT - 10/18/17 04:46</th> </tr> <tr> <td>PTT</td> <td>52.5 seconds</td> <td> 25.0-35.0</td> </tr> <tr> <th colspan="10">Comprehensive Metabolic Panel (CMP) - 10/18/17 04:46</th> </tr> <tr> < td>Albumin</td> <td>2.9 g/dL</td> <td>3.5-4.8</td> </tr > <tr> <td>Alkaline Phosphatase</td> <td>112 U/L</td> <td>26-104</td> </tr> <tr> <td>ALT (SGPT)</td> <td>681 U/L</td> <td>17-63</td> </tr> <tr> <td>Anion Gap</td> <td>10 mEq/L</td> <td>3-20</td> </tr> <tr> <td>AST (SGOT)</td> <td>401 U/L</td> <td>15-41</td> </tr> <tr> <td>Bilirubin Total</td> <td>1.6 mg/dL</td> <td>0.2-1.2</td> </tr> <tr> <td>BUN</td> <td>29 mg/dL</td> <td>4-20</td> < /tr> <tr> <td>Calcium</td> <td>8.1 mg/dL</td> <td>8.6-10.0</td> </tr> <tr> <td>Chloride</td> < td>97 mEq/L</td> <td>99-109</td> </tr> <tr> <td> CO2</td> <td>26 mEq/L</td> <td>22-32</td> </tr> <tr> <td>Creatinine</td> <td>1.24 mg/dL</td> <td>0.64 -1.27</td> </tr> <tr> <td>Globulin</td> <td>3.1 g/dL</td> <td>1.9-4.3</td> </tr> <tr> <td> Glucose</td> <td>97 mg/dL</td> <td>70-100</td> </tr> <tr> <td>Potassium</td> <td>4.1 mEq/L</td> <td> 3.6-5.1</td> </tr> <tr> <td>Protein</td> <td> 6.0 g/dL</td> <td>6.1-7.9</td> </tr> <tr> <td> Sodium</td> <td>133 mEq/L</td> <td>136-144</td> </tr> <tr> <th colspan="10">Magnesium - 10/18/17 04:46</th> </ tr> <tr> <td>Magnesium</td> <td>2.2 mg/dL</td> <td>1.8-2.5</td> </tr> <tr> <th colspan="10"> Phosphorus - 10/18/17 04:46</th> </tr> <tr> <td> Phosphorus</td> <td>2.7 mg/dL</td> <td>2.4-4.7</td> </ tr> <tr> <th colspan="10">eGFR - 10/18/17 04:46</th> </tr > <tr> <td>eGFR</td> <td>>60 mL/min</td> < td>>60</td> </tr> <tr> <th colspan="10">Ammonia - 01/28 12:25</th> </tr> <tr> <td>Ammonia</td> <td >24 umol/L</td> <td>9-35</td> </tr> <tr> <th colspan="10">PTT - 10/18/17 12:25</th> </tr> <tr> <td>PTT </td> <td>27.2 seconds</td> <td>25.0-35.0</td> </tr> <tr> <th colspan="10">Glucose NPT - 10/18/17 14:22</th> < /tr> <tr> <td>Glucose NPT</td> <td>66 mg/dL</td> <td>70-100</td> </tr> <tr> <th colspan="10">Glucose NPT - 10/18/17 17:20</th> </tr> <tr> <td>Glucose NPT</ td> <td>118 mg/dL</td> <td>70-100</td> </tr> <tr > <th colspan="10">Glucose NPT - 10/19/17 00:29</th> </tr> <tr> <td>Glucose NPT</td> <td>170 mg/dL</td> <td >70-100</td> </tr> <tr> <th colspan="10">CBC With Platelet No Differential - 10/19/17 08:40</th> </tr> <tr> <td>HCT</td> <td>34.3 %</td> <td>42.0-52.0</td> < /tr> <tr> <td>HGB</td> <td>11.0 g/dL</td> <td> 14.0-18.0</td> </tr> <tr> <td>MCH</td> <td>28.9 pg</td> <td>27.0-32.0</td> </tr> <tr> <td>MCHC</ td> <td>32.1 g/dL</td> <td>32.0-36.0</td> </tr> <tr> <td>MCV</td> <td>90.0 fL</td> <td>82.0-99.0</td > </tr> <tr> <td>MPV</td> <td>11.5 fL</td> <td>9.4-12.3</td> </tr> <tr> <td>Platelet Count</td > <td>165 K/uL</td> <td>150-400</td> </tr> <tr> <td>RBC</td> <td>3.81 10*6/uL</td> <td>4.60-6.20</td > </tr> <tr> <td>RDW</td> <td>16.1 %</td> <td>11.5-14.5</td> </tr> <tr> <td>WBC</td> <td>9.1 K/uL</td> <td>4.8-10.8</td> </tr> <tr> <th colspan="10">Magnesium - 10/19/17 08:40</th> </tr> <tr> <td>Magnesium</td> <td>2.0 mg/dL</td> <td>1.8-2.5</td > </tr> <tr> <th colspan="10">Renal Function Panel - 02/28 08:40</th> </tr> <tr> <td>Albumin</td> <td >2.8 g/dL</td> <td>3.5-4.8</td> </tr> <tr> <td> Anion Gap</td> <td>9 mEq/L</td> <td>3-20</td> </tr> <tr> <td>BUN</td> <td>23 mg/dL</td> <td>4-20</td > </tr> <tr> <td>Calcium</td> <td>7.7 mg/dL</td > <td>8.6-10.0</td> </tr> <tr> <td>Chloride</td > <td>99 mEq/L</td> <td>99-109</td> </tr> <tr> <td>CO2</td> <td>26 mEq/L</td> <td>22-32</td> </tr> <tr> <td>Creatinine</td> <td>1.40 mg/dL</td> <td>0.64-1.27</td> </tr> <tr> <td>Glucose</td> <td>127 mg/dL</td> <td>70-100</td> </tr> <tr> <td>Phosphorus</td> <td>2.7 mg/dL</td> <td>2.4-4.7</td> </tr> <tr> <td>Potassium</td> <td>3.5 mEq/L</td > <td>3.6-5.1</td> </tr> <tr> <td>Sodium</td> <td>134 mEq/L</td> <td>136-144</td> </tr> <tr> < colspan="10">eGFR - 10/19/17 08:40</th> </tr> <tr> <td>eGFR</td> <td>54 mL/min</td> <td>>60</td> </tr> <tr> < colspan="10">Glucose NPT - 10/19/17 09:35</th > </tr> <tr> <td>Glucose NPT</td> <td>142 mg/dL </td> <td>70-100</td> </tr> <tr> <th colspan="10 ">Glucose NPT - 10/19/17 14:19</th> </tr> <tr> <td> Glucose NPT</td> <td>131 mg/dL</td> <td>70-100</td> </ tr> <tr> <th colspan="10">Glucose NPT - 10/19/17 20:15</th> </tr> <tr> <td>Glucose NPT</td> <td>183 mg/dL</td > <td>70-100</td> </tr> <tr> <th colspan="10"> Glucose NPT - 10/20/17 05:58</th> </tr> <tr> <td> Glucose NPT</td> <td>176 mg/dL</td> <td>70-100</td> </ tr> <tr> <th colspan="10">CBC With Platelet No Differential - 08:06</th> </tr> <tr> <td>HCT</td> <td> 35.0 %</td> <td>42.0-52.0</td> </tr> <tr> < td>HGB</td> <td>11.4 g/dL</td> <td>14.0-18.0</td> </tr > <tr> <td>MCH</td> <td>29.3 pg</td> <td>27.0- 32.0</td> </tr> <tr> <td>MCHC</td> <td>32.6 g/dL </td> <td>32.0-36.0</td> </tr> <tr> <td>MCV</td > <td>90.0 fL</td> <td>82.0-99.0</td> </tr> <tr > <td>MPV</td> <td>11.7 fL</td> <td>9.4-12.3</td> </tr> <tr> <td>Platelet Count</td> <td>147 K/uL</ td> <td>150-400</td> </tr> <tr> <td>RBC</td> <td>3.89 10*6/uL</td> <td>4.60-6.20</td> </tr> <tr > <td>RDW</td> <td>17.2 %</td> <td>11.5-14.5</td > </tr> <tr> <td>WBC</td> <td>12.6 K/uL</td> <td>4.8-10.8</td> </tr> <tr> <th colspan="10"> Renal Function Panel - 10/20/17 08:06</th> </tr> <tr> <td >Albumin</td> <td>2.6 g/dL</td> <td>3.5-4.8</td> </tr> <tr> <td>Anion Gap</td> <td>9 mEq/L</td> <td> 3-20</td> </tr> <tr> <td>BUN</td> <td>22 mg/dL</ td> <td>4-20</td> </tr> <tr> <td>Calcium</td> <td>7.8 mg/dL</td> <td>8.6-10.0</td> </tr> <tr> <td>Chloride</td> <td>97 mEq/L</td> <td>99-109</td> </tr> <tr> <td>CO2</td> <td>26 mEq/L</td> <td>22-32</td> </tr> <tr> <td>Creatinine</td> <td>1.31 mg/dL</td> <td>0.64-1.27</td> </tr> <tr> <td>Glucose</td> <td>116 mg/dL</td> <td>70-100</td> </tr> <tr> <td>Phosphorus</td> <td>3.0 mg/dL</td> <td>2.4-4.7</td> </tr> <tr> <td>Potassium</td> <td>3.6 mEq/L</td> <td>3.6-5.1</td> </tr> <tr> <td>Sodium</td> <td>132 mEq/L</td> <td>136-144</td> </tr> <tr> <th colspan="10">eGFR - 10/20/17 08:06</th> </tr> <tr> <td>eGFR</td> <td>58 mL/min</td> <td>>60</td> </tr> <tr> <th colspan="10">Glucose NPT - 10/20/17 11:17</th> </tr> <tr> <td>Glucose NPT</ td> <td>124 mg/dL</td> <td>70-100</td> </tr> <tr > <th colspan="10">RPR - 10/20/17 15:21</th> </tr> <tr> <td>RPR</td> <td>Non-reactive NA</td> <td /> < /tr> <tr> <th colspan="10">Quantiferon TB Test - 10/20/17 15:21< /th> </tr> <tr> <td>Quantiferon TB Test</td> <td >Negative NA</td> <td>Negative</td> </tr> <tr> < th colspan="10">B12 and Folate - 10/20/17 15:22</th> </tr> <tr> <td>Folate</td> <td>9.6 ng/mL</td> <td>7.0-31.4</td> </tr> <tr> <td>Vitamin B12</td> <td>969 pg/mL</ td> <td>213-816</td> </tr> <tr> <th colspan="10 ">TSH with Reflex Free T4 - 10/20/17 15:22</th> </tr> <tr> <td>TSH with Reflex Free T4</td> <td>3.79 uIU/mL</td> <td> 0.35-4.94</td> </tr> <tr> <th colspan="10">Toxoplasma IgG and IgM - 10/20/17 15:22</th> </tr> <tr> <td> Toxoplasma Ab IgG</td> <td>Negative NA</td> <td>Negative</td> </tr> <tr> <td>Toxoplasma IgG Value</td> <td>& lt;3 IU/mL</td> <td /> </tr> <tr> <th colspan= "10">Glucose NPT - 10/20/17 21:51</th> </tr> <tr> <td> Glucose NPT</td> <td>118 mg/dL</td> <td>70-100</td> </ tr> <tr> <th colspan="10">CBC With Platelet and Differential - 10/21/17 06:47</th> </tr> <tr> <td>Absolute Basophils</td > <td>0.01 10*3/uL</td> <td>0.00-0.20</td> </tr> <tr> <td>Absolute Eosinophils</td> <td>0.75 10*3/uL</td> <td>0.00-0.50</td> </tr> <tr> <td>Absolute Lymphocytes</td> <td>1.65 10*3/uL</td> <td>0.80-3.30</td> </tr> <tr> <td>Absolute Monocytes</td> <td>2.16 10* 3/uL</td> <td>0.30-1.00</td> </tr> <tr> <td> Absolute Neutrophils</td> <td>7.86 10*3/uL</td> <td>1.90-7.00< /td> </tr> <tr> <td>Basophils</td> <td>0 %</ td> <td>0-2</td> </tr> <tr> <td>Eosinophils</td > <td>6 %</td> <td>0-4</td> </tr> <tr> <td>HCT</td> <td>34.8 %</td> <td>42.0-52.0</td> </tr> <tr> <td>HGB</td> <td>11.3 g/dL</td> <td>14.0-18.0</td> </tr> <tr> <td>Immature Granulocytes</ td> <td>0.6 %</td> <td>0.0-1.0</td> </tr> < tr> <td>Lymphocytes</td> <td>13 %</td> <td>20-46< /td> </tr> <tr> <td>MCH</td> <td>29.4 pg</td> <td>27.0-32.0</td> </tr> <tr> <td>MCHC</td> <td>32.5 g/dL</td> <td>32.0-36.0</td> </tr> <tr> <td>MCV</td> <td>90.4 fL</td> <td>82.0-99.0</td> </tr> <tr> <td>Monocytes</td> <td>17 %</td> <td>4-11</td> </tr> <tr> <td>MPV</td> <td> 11.7 fL</td> <td>9.4-12.3</td> </tr> <tr> <td> Neutrophils</td> <td>63 %</td> <td>51-75</td> </tr > <tr> <td>Nucleated RBC Automated</td> <td>0.3 /100 WBC</td> <td /> </tr> <tr> <td>Platelet Count</ td> <td>126 K/uL</td> <td>150-400</td> </tr> <tr > <td>RBC</td> <td>3.85 10*6/uL</td> <td>4.60-6.20</ td> </tr> <tr> <td>RDW</td> <td>17.8 %</td> <td>11.5-14.5</td> </tr> <tr> <td>WBC</td> <td>12.5 K/uL</td> <td>4.8-10.8</td> </tr> <tr> < colspan="10">Glucose NPT - 10/21/17 06:47</th> </tr> < tr> <td>Glucose NPT</td> <td>93 mg/dL</td> <td>70- 100</td> </tr> <tr> <th colspan="10">Magnesium - 06:47</th> </tr> <tr> <td>Magnesium</td> <td> 2.0 mg/dL</td> <td>1.8-2.5</td> </tr> <tr> <th colspan="10">Phosphorus - 10/21/17 06:47</th> </tr> <tr> <td>Phosphorus</td> <td>3.5 mg/dL</td> <td>2.4-4.7</td> </tr> <tr> <th colspan="10">Comprehensive Metabolic Panel (CMP ) - 10/21/17 06:47</th> </tr> <tr> <td>Albumin</td> <td>2.5 g/dL</td> <td>3.5-4.8</td> </tr> <tr> <td>Alkaline Phosphatase</td> <td>121 U/L</td> <td>26-104< /td> </tr> <tr> <td>ALT (SGPT)</td> <td>275 U/L< /td> <td>17-63</td> </tr> <tr> <td>Anion Gap</td > <td>9 mEq/L</td> <td>3-20</td> </tr> <tr> <td>AST (SGOT)</td> <td>101 U/L</td> <td>15-41</td> </tr> <tr> <td>Bilirubin Total</td> <td>2.3 mg/dL</ td> <td>0.2-1.2</td> </tr> <tr> <td>BUN</td> <td>20 mg/dL</td> <td>4-20</td> </tr> <tr> <td>Calcium</td> <td>7.9 mg/dL</td> <td>8.6-10.0</td> </tr> <tr> <td>Chloride</td> <td>98 mEq/L</td> <td>99-109</td> </tr> <tr> <td>CO2</td> <td >25 mEq/L</td> <td>22-32</td> </tr> <tr> <td> Creatinine</td> <td>1.26 mg/dL</td> <td>0.64-1.27</td> </tr> <tr> <td>Globulin</td> <td>3.2 g/dL</td> <td>1.9-4.3</td> </tr> <tr> <td>Glucose</td> < td>99 mg/dL</td> <td>70-100</td> </tr> <tr> <td> Potassium</td> <td>3.7 mEq/L</td> <td>3.6-5.1</td> </tr > <tr> <td>Protein</td> <td>5.7 g/dL</td> <td> 6.1-7.9</td> </tr> <tr> <td>Sodium</td> <td>132 mEq/L</td> <td>136-144</td> </tr> <tr> < colspan="10">eGFR - 10/21/17 06:47</th> </tr> <tr> <td> eGFR</td> <td>>60 mL/min</td> <td>>60</td> </tr> <tr> <th colspan="10">Urine Drug Screen - 10/21/17 16:01</th> </tr> <tr> <td>Tricyclics</td> <td>Not Detected NA</td> <td /> </tr> <tr> < colspan="10"> Glucose NPT - 10/21/17 21:16</th> </tr> <tr> <td> Glucose NPT</td> <td>113 mg/dL</td> <td>70-100</td> </ tr> <tr> <th colspan="10">CBC With Platelet and Differential - 10/22/17 04:48</th> </tr> <tr> <td>HCT</td> <td> 33.5 %</td> <td>42.0-52.0</td> </tr> <tr> < td>HGB</td> <td>10.7 g/dL</td> <td>14.0-18.0</td> </tr > <tr> <td>MCH</td> <td>28.9 pg</td> <td>27.0- 32.0</td> </tr> <tr> <td>MCHC</td> <td>31.9 g/dL </td> <td>32.0-36.0</td> </tr> <tr> <td>MCV</td > <td>90.5 fL</td> <td>82.0-99.0</td> </tr> <tr > <td>MPV</td> <td>11.4 fL</td> <td>9.4-12.3</td> </tr> <tr> <td>Platelet Count</td> <td>122 K/uL</ td> <td>150-400</td> </tr> <tr> <td>RBC</td> <td>3.70 10*6/uL</td> <td>4.60-6.20</td> </tr> <tr > <td>RDW</td> <td>18.0 %</td> <td>11.5-14.5</td > </tr> <tr> <td>WBC</td> <td>11.8 K/uL</td> <td>4.8-10.8</td> </tr> <tr> <th colspan="10"> Comprehensive Metabolic Panel (CMP) - 10/22/17 04:48</th> </tr> < tr> <td>Albumin</td> <td>2.6 g/dL</td> <td>3.5-4.8</ td> </tr> <tr> <td>Alkaline Phosphatase</td> <td >113 U/L</td> <td>26-104</td> </tr> <tr> <td> ALT (SGPT)</td> <td>215 U/L</td> <td>17-63</td> </tr> <tr> <td>Anion Gap</td> <td>7 mEq/L</td> <td>3 -20</td> </tr> <tr> <td>AST (SGOT)</td> <td>70 U /L</td> <td>15-41</td> </tr> <tr> <td>Bilirubin Total</td> <td>1.6 mg/dL</td> <td>0.2-1.2</td> </tr> <tr> <td>BUN</td> <td>22 mg/dL</td> <td>4-20</ td> </tr> <tr> <td>Calcium</td> <td>7.9 mg/dL</ td> <td>8.6-10.0</td> </tr> <tr> <td>Chloride</ td> <td>97 mEq/L</td> <td>99-109</td> </tr> <tr > <td>CO2</td> <td>27 mEq/L</td> <td>22-32</td> </tr> <tr> <td>Creatinine</td> <td>1.28 mg/dL</td> <td>0.64-1.27</td> </tr> <tr> <td>Globulin</td> <td>3.0 g/dL</td> <td>1.9-4.3</td> </tr> <tr> <td>Glucose</td> <td>85 mg/dL</td> <td>70-100</td> </tr> <tr> <td>Potassium</td> <td>3.4 mEq/L</td> <td>3.6-5.1</td> </tr> <tr> <td>Protein</td> <td>5.6 g/dL</td> <td>6.1-7.9</td> </tr> <tr> <td>Sodium</td> <td>131 mEq/L</td> <td>136-144</td> </tr> <tr> <th colspan="10">eGFR - 10/22/17 04:48</th> </tr> <tr> <td>eGFR</td> <td>60 mL/min</td> <td>>60</td> </tr> <tr> <th colspan="10">Glucose NPT - 10/22/17 06:39</th> </tr> <tr> <td>Glucose NPT</td > <td>109 mg/dL</td> <td>70-100</td> </tr> <tr> <th colspan="10">Glucose NPT - 10/22/17 11:51</th> </tr> <tr> <td>Glucose NPT</td> <td>174 mg/dL</td> <td> 70-100</td> </tr> </tbody> </table> </text> <entry> < organizer moodCode="EVN" classCode="BATTERY"> <templateId root= "[id number]" /> <id nullFlavor="NA" /> <code codeSystem="local" code="CBCD" displayName="CBC W/DIFF" /> <statusCode code ="completed" /> <component> <observation moodCode="EVN" classCode= "OBS"> <templateId root="16.840.1.298857.10.20.22.4.2" /> < id nullFlavor="NA" /> <code codeSystem="local" code="CBCCOM" displayName="COMMENT" /> <statusCode code="completed" /> < effectiveTime value="453152072915" /> <value unit="" xsi:type="PQ" value="REVIEWED" /> <referenceRange> <observationRange> <text /> </observationRange> </referenceRange> </observation> </component> <component> <observation moodCode="EVN" classCode="OBS"> <templateId root= "[id number]" /> <id nullFlavor="NA" /> < code codeSystem="local" code="EO#" displayName="EOSINOPHIL #" /> < statusCode code="completed" /> <effectiveTime value="820904077725" /> <value unit="k/cumm" xsi:type="PQ" value="0.8" /> < interpretationCode codeSystem="local" code="*" /> <referenceRange> <observationRange> <text>0.1-0.5</text> </ observationRange> </referenceRange> </observation> </ component> <component> <observation moodCode="EVN" classCode="OBS"> <templateId root="840.1.836234.104.2" /> <id nullFlavor="NA" /> <code codeSystem="local" code="EO%" displayName= "EOSINOPHIL %" /> <statusCode code="completed" /> < effectiveTime value="233351798698" /> <value unit="%" xsi:type="PQ " value="16" /> <interpretationCode codeSystem="local" code="*" /> <referenceRange> <observationRange> <text>2-4</ text> </observationRange> </referenceRange> </ observation> </component> <component> <observation moodCode= "EVN" classCode="OBS"> <templateId root="10.29.840.1.964451.10.2022.4.2 " /> <id nullFlavor="NA" /> <code codeSystem="local" code="GR# " displayName="GRANULOCYTE #" /> <statusCode code="completed" /> <effectiveTime value="986883584770" /> <value unit="k/cumm" xsi: type="PQ" value="2.0" /> <referenceRange> <observationRange > <text>2.0-9.0</text> </observationRange> </ referenceRange> </observation> </component> <component> <observation moodCode="EVN" classCode="OBS"> <templateId root= "2.840.1.697961.10.20.22.4.2" /> <id nullFlavor="NA" /> < code codeSystem="local" code="GR%" displayName="GRANULOCYTE %" /> <statusCode code="completed" /> <effectiveTime value="735887805943 " /> <value unit="%" xsi:type="PQ" value="41" /> < interpretationCode codeSystem="local" code="*" /> <referenceRange> <observationRange> <text>50-75</text> </ observationRange> </referenceRange> </observation> </ component> <component> <observation moodCode="EVN" classCode="OBS"> <templateId root="10.29.840.1.580565.22.4.2" /> <id nullFlavor="NA" /> <code codeSystem="local" code="LY#" displayName= "LYMPHOCYTE #" /> <statusCode code="completed" /> < effectiveTime value="248288522198" /> <value unit="k/cumm" xsi:type="PQ " value="1.2" /> <referenceRange> <observationRange> <text>1.0-4.0</text> </observationRange> </ referenceRange> </observation> </component> <component> <observation moodCode="EVN" classCode="OBS"> <templateId root= "10.29.840.1.797185.10.20.22.4.2" /> <id nullFlavor="NA" /> < code codeSystem="local" code="LY%" displayName="LYMPHOCYTE %" /> <statusCode code="completed" /> <effectiveTime value="587812951054" /> <value unit="%" xsi:type="PQ" value="24" /> < referenceRange> <observationRange> <text>20-30</text> </observationRange> </referenceRange> </observation> </component> <component> <observation moodCode="EVN" classCode= "OBS"> <templateId root="216.840.1.742843.10.20.22.4.2" /> < id nullFlavor="NA" /> <code codeSystem="local" code="MCH" displayName= "MEAN CELL HGB" /> <statusCode code="completed" /> < effectiveTime value="868030318325" /> <value unit="pg" xsi:type="PQ" value="30.3" /> <referenceRange> <observationRange> <text>27.0-33.0</text> </observationRange> </ referenceRange> </observation> </component> <component> <observation moodCode="EVN" classCode="OBS"> <templateId root= "216.840.1.766141.10.20.22.4.2" /> <id nullFlavor="NA" /> < code codeSystem="local" code="MCHC" displayName="MEAN CELL HGB CONCENTRATION" / > <statusCode code="completed" /> <effectiveTime value= "829727395955" /> <value unit="g/dL" xsi:type="PQ" value="35.3" /> <referenceRange> <observationRange> <text>32.0- 37.0</text> </observationRange> </referenceRange> </ observation> </component> <component> <observation moodCode= "EVN" classCode="OBS"> <templateId root="10.29.840.1.900724.10.20.22.4.2 " /> <id nullFlavor="NA" /> <code codeSystem="local" code="MCV " displayName="MEAN CELL VOLUME" /> <statusCode code="completed" /> <effectiveTime value="582581241678" /> <value unit="fl" xsi:type ="PQ" value="86.0" /> <referenceRange> <observationRange> <text>80.0-100.0</text> </observationRange> </ referenceRange> </observation> </component> <component> <observation moodCode="EVN" classCode="OBS"> <templateId root= "10.29.840.1.271752.10.22.4.2" /> <id nullFlavor="NA" /> < code codeSystem="local" code="MO#" displayName="MONOCYTE #" /> < statusCode code="completed" /> <effectiveTime value="795307860116" /> <value unit="k/cumm" xsi:type="PQ" value="0.9" /> < referenceRange> <observationRange> <text>0.1-1.0</text> </observationRange> </referenceRange> </observation > </component> <component> <observation moodCode="EVN" classCode="OBS"> <templateId root="10.29.840.1.725856.10.2022.4.2" /> <id nullFlavor="NA" /> <code codeSystem="local" code="MO% " displayName="MONOCYTE %" /> <statusCode code="completed" /> <effectiveTime value="746198866510" /> <value unit="%" xsi: type="PQ" value="19" /> <interpretationCode codeSystem="local" code="* " /> <referenceRange> <observationRange> <text> 4-6</text> </observationRange> </referenceRange> </ observation> </component> <component> <observation moodCode= "EVN" classCode="OBS"> <templateId root="16.840.1.794978.10.20.22.4.2 " /> <id nullFlavor="NA" /> <code codeSystem="local" code="RBC " displayName="RED BLOOD CELL" /> <statusCode code="completed" /> <effectiveTime value="285418742812" /> <value unit="m/cumm" xsi: type="PQ" value="3.99" /> <interpretationCode codeSystem="local" code= "*" /> <referenceRange> <observationRange> < text>4.00-6.00</text> </observationRange> </referenceRange> </observation> </component> <component> <observation moodCode="EVN" classCode="OBS"> <templateId root= "10.29.840.1.616740...4.2" /> <id nullFlavor="NA" /> < code codeSystem="local" code="RDW" displayName="RED CELL DISTRIBUTION WIDTH" /> <statusCode code="completed" /> <effectiveTime value= "852273737292" /> <value unit="%" xsi:type="PQ" value="14.8" /> <referenceRange> <observationRange> <text>11.0- 15.6</text> </observationRange> </referenceRange> </ observation> </component> <component> <observation moodCode= "EVN" classCode="OBS"> <templateId root="16.840.1.224458.10..22.4.2 " /> <id nullFlavor="NA" /> <code codeSystem="local" code="WBC " displayName="WHITE BLOOD CELL" /> <statusCode code="completed" /> <effectiveTime value="607454179748" /> <value unit="k/cumm" xsi: type="PQ" value="4.9" /> <interpretationCode codeSystem="local" code="* " /> <referenceRange> <observationRange> <text> 5.0-10.0</text> </observationRange> </referenceRange> </observation> </component> <component> <observation moodCode ="EVN" classCode="OBS"> <templateId root= "2.16.840.1.632666.10.20.22.4.2" /> <id nullFlavor="NA" /> < code codeSystem="local" code="HGBT" displayName="HEMOGLOBIN" /> < statusCode code="completed" /> <effectiveTime value="497004512038" /> <value unit="gm/dL" xsi:type="PQ" value="12.1" /> < interpretationCode codeSystem="local" code="*" /> <referenceRange> <observationRange> <text>14.0-18.0</text> </ observationRange> </referenceRange> </observation> </ component> <component> <observation moodCode="EVN" classCode="OBS"> <templateId root="2.16.840.1.892582.10.2022.4.2" /> <id nullFlavor="NA" /> <code codeSystem="local" code="HCTT" displayName= "HEMATOCRIT" /> <statusCode code="completed" /> < effectiveTime value="562351687827" /> <value unit="%" xsi:type="PQ " value="34.3" /> <interpretationCode codeSystem="local" code="*" /> <referenceRange> <observationRange> <text>40.0- 54.0</text> </observationRange> </referenceRange> </ observation> </component> <component> <observation moodCode= "EVN" classCode="OBS"> <templateId root="216.840.1.167754.10..22.4.2 " /> <id nullFlavor="NA" /> <code codeSystem="local" code="PLT " displayName="PLATELET COUNT" /> <statusCode code="completed" /> <effectiveTime value="716151974008" /> <value unit="k/cumm" xsi: type="PQ" value="154" /> <referenceRange> <observationRange > <text>150-450</text> </observationRange> </ referenceRange> </observation> </component> </organizer> </entry > <entry> <organizer moodCode="EVN" classCode="BATTERY"> <templateId root="216.840.1.422369.10..22.4.1" /> <id nullFlavor="NA" /> <code codeSystem="local" code="METABC" displayName="METABOLIC PANEL, COMPREHN" /> <statusCode code="completed" /> <component> <observation moodCode= "EVN" classCode="OBS"> <templateId root="216.840.1.051425.10..22.4.2 " /> <id nullFlavor="NA" /> <code codeSystem="local" code="K" displayName="POTASSIUM" /> <statusCode code="completed" /> < effectiveTime value="365528728019" /> <value unit="mmol/L" xsi:type="PQ " value="4.2" /> <referenceRange> <observationRange> <text>3.5-5.3</text> </observationRange> </ referenceRange> </observation> </component> <component> <observation moodCode="EVN" classCode="OBS"> <templateId root= "216.840.1.514590.10..22.4.2" /> <id nullFlavor="NA" /> < code codeSystem="local" code="eGFR" displayName="EST GFR (MDRD)" /> < statusCode code="completed" /> <effectiveTime value="437374119518" /> <value unit="mL/min" xsi:type="PQ" value="> 60" /> < referenceRange> <observationRange> <text>> 59</text> </observationRange> </referenceRange> </observation > </component> <component> <observation moodCode="EVN" classCode="OBS"> <templateId root="216.840.1.762742.10..4.2" /> <id nullFlavor="NA" /> <code codeSystem="local" code="GAP" displayName="ANION GAP" /> <statusCode code="completed" /> < effectiveTime value="638626683982" /> <value unit="mmol/L" xsi:type="PQ " value="12" /> <referenceRange> <observationRange> <text>5-15</text> </observationRange> </referenceRange > </observation> </component> <component> <observation moodCode="EVN" classCode="OBS"> <templateId root= "16.840.1.742462.10..22.4.2" /> <id nullFlavor="NA" /> < code codeSystem="local" code="eCrCl" displayName="EST CrCl (CG)" /> < statusCode code="completed" /> <effectiveTime value="305439865578" /> <value unit="mL/min" xsi:type="PQ" value="> 60" /> < referenceRange> <observationRange> <text>> 59</text> </observationRange> </referenceRange> </observation > </component> <component> <observation moodCode="EVN" classCode="OBS"> <templateId root="10.29.840.1.178511.10.20.22.4.2" /> <id nullFlavor="NA" /> <code codeSystem="local" code="GLU" displayName="GLUCOSE" /> <statusCode code="completed" /> < effectiveTime value="482359701862" /> <value unit="mg/dL" xsi:type="PQ " value="109" /> <interpretationCode codeSystem="local" code="*" /> <referenceRange> <observationRange> <text>70-99</ text> </observationRange> </referenceRange> </ observation> </component> <component> <observation moodCode= "EVN" classCode="OBS"> <templateId root="840.1.287211.10..22.4.2 " /> <id nullFlavor="NA" /> <code codeSystem="local" code="CA " displayName="CALCIUM" /> <statusCode code="completed" /> < effectiveTime value="188426961366" /> <value unit="mg/dL" xsi:type="PQ " value="8.1" /> <interpretationCode codeSystem="local" code="*" /> <referenceRange> <observationRange> <text>8.5- 10.1</text> </observationRange> </referenceRange> </ observation> </component> <component> <observation moodCode= "EVN" classCode="OBS"> <templateId root="10.29.840.1.551098.10.20.22.4.2 " /> <id nullFlavor="NA" /> <code codeSystem="local" code="BUN " displayName="BLOOD UREA NITROGEN" /> <statusCode code="completed" /> <effectiveTime value="566517982621" /> <value unit="mg/dL" xsi:type="PQ" value="20" /> <referenceRange> < observationRange> <text>7-20</text> </observationRange> </referenceRange> </observation> </component> < component> <observation moodCode="EVN" classCode="OBS"> < templateId root="216.840.1.872179.10..4.2" /> <id nullFlavor="NA " /> <code codeSystem="local" code="CREAT" displayName="CREATININE" /> <statusCode code="completed" /> <effectiveTime value= "[id number]" /> <value unit="mg/dL" xsi:type="PQ" value="1.2" /> <referenceRange> <observationRange> <text>0.7-1.3< /text> </observationRange> </referenceRange> </ observation> </component> <component> <observation moodCode= "EVN" classCode="OBS"> <templateId root="16.840.1.708414...4.2 " /> <id nullFlavor="NA" /> <code codeSystem="local" code="NA " displayName="SODIUM" /> <statusCode code="completed" /> < effectiveTime value="[id number]" /> <value unit="mmol/L" xsi:type="PQ " value="136" /> <referenceRange> <observationRange> <text>135-148</text> </observationRange> </ referenceRange> </observation> </component> <component> <observation moodCode="EVN" classCode="OBS"> <templateId root= "16.840.1.724133.07.02.22.4.2" /> <id nullFlavor="NA" /> < code codeSystem="local" code="CL" displayName="CHLORIDE" /> < statusCode code="completed" /> <effectiveTime value="[id number]" /> <value unit="mmol/L" xsi:type="PQ" value="102" /> < referenceRange> <observationRange> <text>98-110</text> </observationRange> </referenceRange> </observation> </component> <component> <observation moodCode="EVN" classCode ="OBS"> <templateId root="2.16.840.1.445647.10...4.2" /> < id nullFlavor="NA" /> <code codeSystem="local" code="AST" displayName= "AST/SGOT" /> <statusCode code="completed" /> <effectiveTime value="407342310564" /> <value unit="Units/L" xsi:type="PQ" value="62" /> <interpretationCode codeSystem="local" code="*" /> < referenceRange> <observationRange> <text>10-37</text> </observationRange> </referenceRange> </observation> </component> <component> <observation moodCode="EVN" classCode= "OBS"> <templateId root="2.16.840.1.672969.10..4.2" /> < id nullFlavor="NA" /> <code codeSystem="local" code="ALT" displayName= "ALT/SGPT" /> <statusCode code="completed" /> <effectiveTime value="[id number]" /> <value unit="Units/L" xsi:type="PQ" value="68" /> <interpretationCode codeSystem="local" code="*" /> < referenceRange> <observationRange> <text>< 66</text> </observationRange> </referenceRange> </observation > </component> <component> <observation moodCode="EVN" classCode="OBS"> <templateId root="216.840.1.005123.10.4.2" /> <id nullFlavor="NA" /> <code codeSystem="local" code="CO2" displayName="CARBON DIOXIDE" /> <statusCode code="completed" /> <effectiveTime value="299954162047" /> <value unit="mmol/L" xsi:type ="PQ" value="22" /> <referenceRange> <observationRange> <text>21-32</text> </observationRange> </ referenceRange> </observation> </component> <component> <observation moodCode="EVN" classCode="OBS"> <templateId root= "10.29.840.1.140877.07.02.22.4.2" /> <id nullFlavor="NA" /> < code codeSystem="local" code="TP" displayName="TOTAL PROTEIN" /> < statusCode code="completed" /> <effectiveTime value="866828731914" /> <value unit="gm/dL" xsi:type="PQ" value="6.9" /> < referenceRange> <observationRange> <text>6.4-8.2</text> </observationRange> </referenceRange> </observation > </component> <component> <observation moodCode="EVN" classCode="OBS"> <templateId root="16.840.1.899420.22.4.2" /> <id nullFlavor="NA" /> <code codeSystem="local" code="ALB" displayName="ALBUMIN" /> <statusCode code="completed" /> < effectiveTime value="315805421157" /> <value unit="gm/dL" xsi:type="PQ " value="3.2" /> <interpretationCode codeSystem="local" code="*" /> <referenceRange> <observationRange> <text>3.4-5.0 </text> </observationRange> </referenceRange> </ observation> </component> <component> <observation moodCode= "EVN" classCode="OBS"> <templateId root="216.840.1.899143.10...4.2 " /> <id nullFlavor="NA" /> <code codeSystem="local" code= "BILTOT" displayName="BILI TOTAL" /> <statusCode code="completed" /> <effectiveTime value="[id number]" /> <value unit="mg/dL" xsi: type="PQ" value="0.4" /> <referenceRange> <observationRange > <text>0.0-1.0</text> </observationRange> </ referenceRange> </observation> </component> <component> <observation moodCode="EVN" classCode="OBS"> <templateId root= "216.840.1.523620.10...4.2" /> <id nullFlavor="NA" /> < code codeSystem="local" code="ALKP" displayName="ALKALINE PHOSPHATASE TOTAL" /> <statusCode code="completed" /> <effectiveTime value= "[id number]" /> <value unit="IU/L" xsi:type="PQ" value="89" /> <referenceRange> <observationRange> <text>45-117</ text> </observationRange> </referenceRange> </ observation> </component> </organizer> </entry> <entry> <organizer moodCode="EVN" classCode="BATTERY"> <templateId root= "216.840.1.948504.10..22.4.1" /> <id nullFlavor="NA" /> <code codeSystem="local" code="TROP" displayName="Troponin" /> <statusCode code= "completed" /> <component> <observation moodCode="EVN" classCode= "OBS"> <templateId root="16.840.1.132587.10.4.2" /> < id nullFlavor="NA" /> <code codeSystem="local" code="TROP" displayName= "Troponin" /> <statusCode code="completed" /> <effectiveTime value="[id number]" /> <value unit="ng/mL" xsi:type="PQ" value="< 0.05" /> <referenceRange> <observationRange> < text><0.06</text> </observationRange> </referenceRange> </observation> </component> </organizer> </entry> <entry> < organizer moodCode="EVN" classCode="BATTERY"> <templateId root= "10.29.840.1.296201.22.4.1" /> <id nullFlavor="NA" /> <code codeSystem="local" code="CBCWD" displayName="CBC With Platelet and Differential " /> <statusCode code="completed" /> <component> <observation moodCode="EVN" classCode="OBS"> <templateId root= "10.29.840.1.354286.22.4.2" /> <id nullFlavor="NA" /> < code codeSystem="local" code="ABASR" displayName="Absolute Basophils" /> <statusCode code="completed" /> <effectiveTime value="[id number]" /> <value unit="10*3/uL" xsi:type="PQ" value="0.04" /> < referenceRange> <observationRange> <text>0.00-0.20</text > </observationRange> </referenceRange> </observation > </component> <component> <observation moodCode="EVN" classCode="OBS"> <templateId root="216.840.1.743690.10..4.2" /> <id nullFlavor="NA" /> <code codeSystem="local" code="AEOSR" displayName="Absolute Eosinophils" /> <statusCode code="completed" /> <effectiveTime value="" /> <value unit="10*3/uL" xsi:type="PQ" value="0.57" /> <interpretationCode codeSystem="local" code="*" /> <referenceRange> <observationRange> <text>0.00-0.50</text> </observationRange> </ referenceRange> </observation> </component> <component> <observation moodCode="EVN" classCode="OBS"> <templateId root= "10.29.840.1.659577.07.02.22.4.2" /> <id nullFlavor="NA" /> < code codeSystem="local" code="ALYMR" displayName="Absolute Lymphocytes" /> <statusCode code="completed" /> <effectiveTime value="700806862918 " /> <value unit="10*3/uL" xsi:type="PQ" value="1.82" /> < referenceRange> <observationRange> <text>0.80-3.30</text > </observationRange> </referenceRange> </observation > </component> <component> <observation moodCode="EVN" classCode="OBS"> <templateId root="10.29.840.1.416231.22.4.2" /> <id nullFlavor="NA" /> <code codeSystem="local" code="AMONR" displayName="Absolute Monocytes" /> <statusCode code="completed" /> <effectiveTime value="112372915245" /> <value unit="10*3/uL" xsi :type="PQ" value="0.84" /> <referenceRange> < observationRange> <text>0.30-1.00</text> </ observationRange> </referenceRange> </observation> </ component> <component> <observation moodCode="EVN" classCode="OBS"> <templateId root="16.840.1.926765.07.02.22.4.2" /> <id nullFlavor="NA" /> <code codeSystem="local" code="ASEGR" displayName= "Absolute Neutrophils" /> <statusCode code="completed" /> < effectiveTime value="309862324887" /> <value unit="10*3/uL" xsi:type= "PQ" value="4.22" /> <referenceRange> <observationRange> <text>1.90-7.00</text> </observationRange> </ referenceRange> </observation> </component> <component> <observation moodCode="EVN" classCode="OBS"> <templateId root= "16.840.1.479157.07.02.22.4.2" /> <id nullFlavor="NA" /> < code codeSystem="local" code="BASOR" displayName="Basophils" /> < statusCode code="completed" /> <effectiveTime value="092219527988" /> <value unit="%" xsi:type="PQ" value="1" /> <referenceRange > <observationRange> <text>0-2</text> </ observationRange> </referenceRange> </observation> </ component> <component> <observation moodCode="EVN" classCode="OBS"> <templateId root="16.840.1.808940.07.02..4.2" /> <id nullFlavor="NA" /> <code codeSystem="local" code="EOSR" displayName= "Eosinophils" /> <statusCode code="completed" /> < effectiveTime value="707821067192" /> <value unit="%" xsi:type="PQ " value="8" /> <interpretationCode codeSystem="local" code="*" /> <referenceRange> <observationRange> <text>0-4</text > </observationRange> </referenceRange> </observation > </component> <component> <observation moodCode="EVN" classCode="OBS"> <templateId root="2.16.840.1.526024.07.02.224.2" /> <id nullFlavor="NA" /> <code codeSystem="local" code="HCT" displayName="HCT" /> <statusCode code="completed" /> < effectiveTime value="" /> <value unit="%" xsi:type="PQ " value="39.0" /> <interpretationCode codeSystem="local" code="*" /> <referenceRange> <observationRange> <text>42.0- 52.0</text> </observationRange> </referenceRange> </ observation> </component> <component> <observation moodCode= "EVN" classCode="OBS"> <templateId root="2.16.840.1.722177.10.4.2 " /> <id nullFlavor="NA" /> <code codeSystem="local" code="HGB " displayName="HGB" /> <statusCode code="completed" /> < effectiveTime value="498650619153" /> <value unit="g/dL" xsi:type="PQ" value="13.0" /> <interpretationCode codeSystem="local" code="*" /> <referenceRange> <observationRange> <text>14.0- 18.0</text> </observationRange> </referenceRange> </ observation> </component> <component> <observation moodCode= "EVN" classCode="OBS"> <templateId root="2.16.840.1.249048.10.20..4.2 " /> <id nullFlavor="NA" /> <code codeSystem="local" code= "IMGA" displayName="Immature Granulocytes" /> <statusCode code= "completed" /> <effectiveTime value="961887103010" /> <value unit="%" xsi:type="PQ" value="0.3" /> <referenceRange> < observationRange> <text>0.0-1.0</text> </ observationRange> </referenceRange> </observation> </ component> <component> <observation moodCode="EVN" classCode="OBS"> <templateId root="16.840.1.700486.10..4.2" /> <id nullFlavor="NA" /> <code codeSystem="local" code="LYMPR" displayName= "Lymphocytes" /> <statusCode code="completed" /> < effectiveTime value="328191479778" /> <value unit="%" xsi:type="PQ " value="24" /> <referenceRange> <observationRange> <text>20-46</text> </observationRange> </ referenceRange> </observation> </component> <component> <observation moodCode="EVN" classCode="OBS"> <templateId root= "16.840.1.703983.10..4.2" /> <id nullFlavor="NA" /> < code codeSystem="local" code="MCH" displayName="MCH" /> <statusCode code="completed" /> <effectiveTime value="" /> < value unit="pg" xsi:type="PQ" value="30.9" /> <referenceRange> <observationRange> <text>27.0-32.0</text> </ observationRange> </referenceRange> </observation> </ component> <component> <observation moodCode="EVN" classCode="OBS"> <templateId root="216.840.1.980303.10.22.4.2" /> <id nullFlavor="NA" /> <code codeSystem="local" code="MCHC" displayName= "MCHC" /> <statusCode code="completed" /> <effectiveTime value ="" /> <value unit="g/dL" xsi:type="PQ" value="33.3" /> <referenceRange> <observationRange> <text>32.0- 36.0</text> </observationRange> </referenceRange> </ observation> </component> <component> <observation moodCode= "EVN" classCode="OBS"> <templateId root="10.29.840.1.239042.22.4.2 " /> <id nullFlavor="NA" /> <code codeSystem="local" code="MCV " displayName="MCV" /> <statusCode code="completed" /> < effectiveTime value="" /> <value unit="fL" xsi:type="PQ" value="92.6" /> <referenceRange> <observationRange> <text>82.0-99.0</text> </observationRange> </ referenceRange> </observation> </component> <component> <observation moodCode="EVN" classCode="OBS"> <templateId root= "216.840.1.370213.10..22.4.2" /> <id nullFlavor="NA" /> < code codeSystem="local" code="MONOR" displayName="Monocytes" /> < statusCode code="completed" /> <effectiveTime value="" /> <value unit="%" xsi:type="PQ" value="11" /> < referenceRange> <observationRange> <text>4-11</text> </observationRange> </referenceRange> </observation> </component> <component> <observation moodCode="EVN" classCode= "OBS"> <templateId root="16.840.1.790321.10.20.22.4.2" /> < id nullFlavor="NA" /> <code codeSystem="local" code="MPV" displayName= "MPV" /> <statusCode code="completed" /> <effectiveTime value= "647891765002" /> <value unit="fL" xsi:type="PQ" value="10.4" /> <referenceRange> <observationRange> <text>9.4-12.3</ text> </observationRange> </referenceRange> </ observation> </component> <component> <observation moodCode= "EVN" classCode="OBS"> <templateId root="16.840.1.854414.10.20.22.4.2 " /> <id nullFlavor="NA" /> <code codeSystem="local" code= "SEGR" displayName="Neutrophils" /> <statusCode code="completed" /> <effectiveTime value="753186015248" /> <value unit="%" xsi: type="PQ" value="56" /> <referenceRange> <observationRange> <text>51-75</text> </observationRange> </ referenceRange> </observation> </component> <component> <observation moodCode="EVN" classCode="OBS"> <templateId root= "10.29.840.1.976108.22.4.2" /> <id nullFlavor="NA" /> < code codeSystem="local" code="NRBCA" displayName="Nucleated RBC Automated" /> <statusCode code="completed" /> <effectiveTime value= "" /> <value unit="/100WBC" xsi:type="PQ" value="0.0" /> <referenceRange> <observationRange> <text /> </observationRange> </referenceRange> </observation> </component> <component> <observation moodCode="EVN" classCode= "OBS"> <templateId root="216.840.1.444401.07.02.22.4.2" /> < id nullFlavor="NA" /> <code codeSystem="local" code="PLT" displayName= "Platelet Count" /> <statusCode code="completed" /> < effectiveTime value="" /> <value unit="K/uL" xsi:type="PQ" value="190" /> <referenceRange> <observationRange> <text>150-400</text> </observationRange> </ referenceRange> </observation> </component> <component> <observation moodCode="EVN" classCode="OBS"> <templateId root= "16.840.1.773986.22.4.2" /> <id nullFlavor="NA" /> < code codeSystem="local" code="RBC" displayName="RBC" /> <statusCode code="completed" /> <effectiveTime value="" /> < value unit="10*6/uL" xsi:type="PQ" value="4.21" /> <interpretationCode codeSystem="local" code="*" /> <referenceRange> < observationRange> <text>4.60-6.20</text> </ observationRange> </referenceRange> </observation> </ component> <component> <observation moodCode="EVN" classCode="OBS"> <templateId root="2.16.840.1.575919.10...4.2" /> <id nullFlavor="NA" /> <code codeSystem="local" code="RDW" displayName="RDW " /> <statusCode code="completed" /> <effectiveTime value= "077676147233" /> <value unit="%" xsi:type="PQ" value="14.5" /> <referenceRange> <observationRange> <text>11.5- 14.5</text> </observationRange> </referenceRange> </ observation> </component> <component> <observation moodCode= "EVN" classCode="OBS"> <templateId root="216.840.1.008500.07.02.22.4.2 " /> <id nullFlavor="NA" /> <code codeSystem="local" code= "WBCIR" displayName="WBC" /> <statusCode code="completed" /> < effectiveTime value="364919525295" /> <value unit="K/uL" xsi:type="PQ" value="7.5" /> <referenceRange> <observationRange> <text>4.8-10.8</text> </observationRange> </ referenceRange> </observation> </component> </organizer> </entry > <entry> <organizer moodCode="EVN" classCode="BATTERY"> <templateId root="2.16.840.1.392017.10.2022.4.1" /> <id nullFlavor="NA" /> <code codeSystem="local" code="UA" displayName="Urinalysis with reflex microscopic" / > <statusCode code="completed" /> <component> <observation moodCode="EVN" classCode="OBS"> <templateId root= "216.840.1.606668.10..4.2" /> <id nullFlavor="NA" /> < code codeSystem="local" code="UAPP" displayName="Appearance" /> < statusCode code="completed" /> <effectiveTime value="" /> <value unit="NA" xsi:type="PQ" value="Clear" /> < referenceRange> <observationRange> <text /> < /observationRange> </referenceRange> </observation> </ component> <component> <observation moodCode="EVN" classCode="OBS"> <templateId root="216.840.1.224020.07.02.22.4.2" /> <id nullFlavor="NA" /> <code codeSystem="local" code="UBIL" displayName= "Bilirubin" /> <statusCode code="completed" /> <effectiveTime value="" /> <value unit="NA" xsi:type="PQ" value="Negative " /> <referenceRange> <observationRange> <text> Negative</text> </observationRange> </referenceRange> </observation> </component> <component> <observation moodCode ="EVN" classCode="OBS"> <templateId root= "216.840.1.093637.10.4.2" /> <id nullFlavor="NA" /> < code codeSystem="local" code="UBLD" displayName="Blood" /> <statusCode code="completed" /> <effectiveTime value="" /> < value unit="NA" xsi:type="PQ" value="Negative" /> <referenceRange> <observationRange> <text>Negative</text> </ observationRange> </referenceRange> </observation> </ component> <component> <observation moodCode="EVN" classCode="OBS"> <templateId root="216.840.1.598524.10..4.2" /> <id nullFlavor="NA" /> <code codeSystem="local" code="UCOLR" displayName= "Color" /> <statusCode code="completed" /> <effectiveTime value="" /> <value unit="NA" xsi:type="PQ" value="Yellow" / > <referenceRange> <observationRange> <text /> </observationRange> </referenceRange> </observation > </component> <component> <observation moodCode="EVN" classCode="OBS"> <templateId root="216.840.1.816399...4.2" /> <id nullFlavor="NA" /> <code codeSystem="local" code="UGLU" displayName="Glucose, Urine" /> <statusCode code="completed" /> <effectiveTime value="" /> <value unit="" xsi:type="PQ" value="Negative" /> <referenceRange> <observationRange> <text>Negative</text> </observationRange> </ referenceRange> </observation> </component> <component> <observation moodCode="EVN" classCode="OBS"> <templateId root= "16.840.1.115180.07.02.22.4.2" /> <id nullFlavor="NA" /> < code codeSystem="local" code="UKET" displayName="Ketones" /> < statusCode code="completed" /> <effectiveTime value="" /> <value unit="" xsi:type="PQ" value="Negative" /> < referenceRange> <observationRange> <text>Negative</text > </observationRange> </referenceRange> </observation > </component> <component> <observation moodCode="EVN" classCode="OBS"> <templateId root="216.840.1.011575.07.02.22.4.2" /> <id nullFlavor="NA" /> <code codeSystem="local" code="ULEU" displayName="Leukocyte Esterase" /> <statusCode code="completed" /> <effectiveTime value="" /> <value unit="NA" xsi:type ="PQ" value="Negative" /> <referenceRange> <observationRange > <text>Negative</text> </observationRange> </ referenceRange> </observation> </component> <component> <observation moodCode="EVN" classCode="OBS"> <templateId root= "216.840.1.929144.07.02.22.4.2" /> <id nullFlavor="NA" /> < code codeSystem="local" code="UNIT" displayName="Nitrites" /> < statusCode code="completed" /> <effectiveTime value="" /> <value unit="NA" xsi:type="PQ" value="Negative" /> < referenceRange> <observationRange> <text>Negative</text > </observationRange> </referenceRange> </observation > </component> <component> <observation moodCode="EVN" classCode="OBS"> <templateId root="16.840.1.460255.10.4.2" /> <id nullFlavor="NA" /> <code codeSystem="local" code="UPH" displayName="pH" /> <statusCode code="completed" /> < effectiveTime value="" /> <value unit="NA" xsi:type="PQ" value="6.0" /> <referenceRange> <observationRange> <text>5.0-8.0</text> </observationRange> </ referenceRange> </observation> </component> <component> <observation moodCode="EVN" classCode="OBS"> <templateId root= "16.840.1.086200.10..4.2" /> <id nullFlavor="NA" /> < code codeSystem="local" code="UPRO" displayName="Protein" /> < statusCode code="completed" /> <effectiveTime value="" /> <value unit="NA" xsi:type="PQ" value="Pos 1+" /> < interpretationCode codeSystem="local" code="*" /> <referenceRange> <observationRange> <text>Negative</text> </ observationRange> </referenceRange> </observation> </ component> <component> <observation moodCode="EVN" classCode="OBS"> <templateId root="10.29.840.1.374177.07.02.22.4.2" /> <id nullFlavor="NA" /> <code codeSystem="local" code="USPG" displayName= "Specific Casmalia" /> <statusCode code="completed" /> < effectiveTime value="" /> <value unit="NA" xsi:type="PQ" value="1.020" /> <referenceRange> <observationRange> <text>1.003-1.030</text> </observationRange> </ referenceRange> </observation> </component> <component> <observation moodCode="EVN" classCode="OBS"> <templateId root= "10.29.840.1.414966...4.2" /> <id nullFlavor="NA" /> < code codeSystem="local" code="UTYP" displayName="UA Collection type" /> <statusCode code="completed" /> <effectiveTime value="308750812771" / > <value unit="NA" xsi:type="PQ" value="Clean Catch" /> < referenceRange> <observationRange> <text /> < /observationRange> </referenceRange> </observation> </ component> <component> <observation moodCode="EVN" classCode="OBS"> <templateId root="16.840.1.417760.07.02.22.4.2" /> <id nullFlavor="NA" /> <code codeSystem="local" code="UURO" displayName= "Urobilinogen" /> <statusCode code="completed" /> < effectiveTime value="780978315888" /> <value unit="mg/dL" xsi:type="PQ " value="4.0" /> <referenceRange> <observationRange> <text><1.0</text> </observationRange> </ referenceRange> </observation> </component> </organizer> </entry > <entry> <organizer moodCode="EVN" classCode="BATTERY"> <templateId root="16.840.1.114704.07.02.22.4.1" /> <id nullFlavor="NA" /> <code codeSystem="local" code="UMIC" displayName="Urine Microscopic" /> < statusCode code="completed" /> <component> <observation moodCode= "EVN" classCode="OBS"> <templateId root="10.29.840.1.265088.07.02.22.4.2 " /> <id nullFlavor="NA" /> <code codeSystem="local" code= "UBAC" displayName="Bacteria" /> <statusCode code="completed" /> <effectiveTime value="707950586107" /> <value unit="NA" xsi:type= "PQ" value="None Seen" /> <referenceRange> <observationRange > <text /> </observationRange> </referenceRange > </observation> </component> <component> <observation moodCode="EVN" classCode="OBS"> <templateId root= "216.840.1.378937.10.4.2" /> <id nullFlavor="NA" /> < code codeSystem="local" code="UEPI" displayName="Epithelial Cells" /> < statusCode code="completed" /> <effectiveTime value="" /> <value unit="/HPF" xsi:type="PQ" value="None Seen" /> < referenceRange> <observationRange> <text /> < /observationRange> </referenceRange> </observation> </ component> <component> <observation moodCode="EVN" classCode="OBS"> <templateId root="10.29.840.1.698893.07.02.22.4.2" /> <id nullFlavor="NA" /> <code codeSystem="local" code="URBC" displayName= "RBC, Urine" /> <statusCode code="completed" /> < effectiveTime value="" /> <value unit="/HPF" xsi:type="PQ" value="0" /> <referenceRange> <observationRange> <text>0-2</text> </observationRange> </referenceRange> </observation> </component> <component> <observation moodCode="EVN" classCode="OBS"> <templateId root= "10.29.840.1.026198.07.02.22.4.2" /> <id nullFlavor="NA" /> < code codeSystem="local" code="UMUC" displayName="Urine Mucus" /> < statusCode code="completed" /> <effectiveTime value="" /> <value unit="NA" xsi:type="PQ" value="Present" /> < referenceRange> <observationRange> <text /> < /observationRange> </referenceRange> </observation> </ component> <component> <observation moodCode="EVN" classCode="OBS"> <templateId root="10.29.840.1.119397.10.20.22.4.2" /> <id nullFlavor="NA" /> <code codeSystem="local" code="UWBC" displayName= "WBC, Urine" /> <statusCode code="completed" /> < effectiveTime value="" /> <value unit="/HPF" xsi:type="PQ" value="0" /> <referenceRange> <observationRange> <text>0-4</text> </observationRange> </referenceRange> </observation> </component> </organizer> </entry> <entry> < organizer moodCode="EVN" classCode="BATTERY"> <templateId root= "10.29.840.1.413392.10..22.4.1" /> <id nullFlavor="NA" /> <code codeSystem="local" code="BMP" displayName="Basic Metabolic Panel (BMP)" /> <statusCode code="completed" /> <component> <observation moodCode= "EVN" classCode="OBS"> <templateId root="10.29.840.1.832905.1022.4.2 " /> <id nullFlavor="NA" /> <code codeSystem="local" code= "AGAP" displayName="Anion Gap" /> <statusCode code="completed" /> <effectiveTime value="" /> <value unit="mEq/L" xsi: type="PQ" value="7" /> <referenceRange> <observationRange> <text>3-20</text> </observationRange> </ referenceRange> </observation> </component> <component> <observation moodCode="EVN" classCode="OBS"> <templateId root= "216.840.1.792576.10..4.2" /> <id nullFlavor="NA" /> < code codeSystem="local" code="BUN" displayName="BUN" /> <statusCode code="completed" /> <effectiveTime value="" /> < value unit="mg/dL" xsi:type="PQ" value="28" /> <interpretationCode codeSystem="local" code="*" /> <referenceRange> < observationRange> <text>4-20</text> </observationRange> </referenceRange> </observation> </component> < component> <observation moodCode="EVN" classCode="OBS"> < templateId root="10.29.840.1.346941.07.02.224.2" /> <id nullFlavor="NA " /> <code codeSystem="local" code="CA" displayName="Calcium" /> <statusCode code="completed" /> <effectiveTime value=" " /> <value unit="mg/dL" xsi:type="PQ" value="8.7" /> < referenceRange> <observationRange> <text>8.6-10.0</text > </observationRange> </referenceRange> </observation > </component> <component> <observation moodCode="EVN" classCode="OBS"> <templateId root="216.840.1.371401...4.2" /> <id nullFlavor="NA" /> <code codeSystem="local" code="CL" displayName="Chloride" /> <statusCode code="completed" /> < effectiveTime value="" /> <value unit="mEq/L" xsi:type="PQ " value="105" /> <referenceRange> <observationRange> <text>99-109</text> </observationRange> </ referenceRange> </observation> </component> <component> <observation moodCode="EVN" classCode="OBS"> <templateId root= "16.840.1.308809.10.20.22.4.2" /> <id nullFlavor="NA" /> < code codeSystem="local" code="CO2" displayName="CO2" /> <statusCode code="completed" /> <effectiveTime value="689203935887" /> < value unit="mEq/L" xsi:type="PQ" value="22" /> <referenceRange> <observationRange> <text>22-32</text> </ observationRange> </referenceRange> </observation> </ component> <component> <observation moodCode="EVN" classCode="OBS"> <templateId root="10.29.840.1.775729.10..22.4.2" /> <id nullFlavor="NA" /> <code codeSystem="local" code="CREAT" displayName= "Creatinine" /> <statusCode code="completed" /> < effectiveTime value="146375218414" /> <value unit="mg/dL" xsi:type="PQ " value="1.02" /> <referenceRange> <observationRange> <text>0.64-1.27</text> </observationRange> </ referenceRange> </observation> </component> <component> <observation moodCode="EVN" classCode="OBS"> <templateId root= "10.29.840.1.768817.10.20.22.4.2" /> <id nullFlavor="NA" /> < code codeSystem="local" code="GLU" displayName="Glucose" /> < statusCode code="completed" /> <effectiveTime value="327116377089" /> <value unit="mg/dL" xsi:type="PQ" value="94" /> < referenceRange> <observationRange> <text>70-100</text> </observationRange> </referenceRange> </observation> </component> <component> <observation moodCode="EVN" classCode ="OBS"> <templateId root="2.16.840.1.605740.07.02.22.4.2" /> < id nullFlavor="NA" /> <code codeSystem="local" code="K" displayName= "Potassium" /> <statusCode code="completed" /> <effectiveTime value="836750778814" /> <value unit="mEq/L" xsi:type="PQ" value="4.9" / > <referenceRange> <observationRange> <text>3.6 -5.1</text> </observationRange> </referenceRange> </ observation> </component> <component> <observation moodCode= "EVN" classCode="OBS"> <templateId root="2.16.840.1.440005.07.02.22.4.2 " /> <id nullFlavor="NA" /> <code codeSystem="local" code="NA " displayName="Sodium" /> <statusCode code="completed" /> < effectiveTime value="199307672246" /> <value unit="mEq/L" xsi:type="PQ " value="134" /> <interpretationCode codeSystem="local" code="*" /> <referenceRange> <observationRange> <text>136-144 </text> </observationRange> </referenceRange> </ observation> </component> </organizer> </entry> <entry> <organizer moodCode="EVN" classCode="BATTERY"> <templateId root= "216.840.1.174375...22.4.1" /> <id nullFlavor="NA" /> <code codeSystem="local" code="GFR" displayName="eGFR" /> <statusCode code= "completed" /> <component> <observation moodCode="EVN" classCode= "OBS"> <templateId root="10.29.840.1.913328.07.02.22.4.2" /> < id nullFlavor="NA" /> <code codeSystem="local" code="GFR" displayName= "eGFR" /> <statusCode code="completed" /> <effectiveTime value ="791902062632" /> <value unit="mL/min" xsi:type="PQ" value=">60" / > <referenceRange> <observationRange> <text>&gt ;60</text> </observationRange> </referenceRange> </ observation> </component> </organizer> </entry> <entry> <organizer moodCode="EVN" classCode="BATTERY"> <templateId root= "10.29.840.1.885254.07.02.22.4.1" /> <id nullFlavor="NA" /> <code codeSystem="local" code="PT" displayName="Protime (INR)" /> <statusCode code="completed" /> <component> <observation moodCode="EVN" classCode="OBS"> <templateId root="10.29.840.1.117749.07.02.22.4.2" /> <id nullFlavor="NA" /> <code codeSystem="local" code="INR" displayName="INR" /> <statusCode code="completed" /> < effectiveTime value="[id number]" /> <value unit="NA" xsi:type="PQ" value="0.8" /> <interpretationCode codeSystem="local" code="*" /> <referenceRange> <observationRange> <text>0.9-1.2</ text> </observationRange> </referenceRange> </ observation> </component> </organizer> </entry> <entry> <organizer moodCode="EVN" classCode="BATTERY"> <templateId root= "216.840.1.396901.10..22.4.1" /> <id nullFlavor="NA" /> <code codeSystem="local" code="LIVER" displayName="Hepatic Function Panel" /> < statusCode code="completed" /> <component> <observation moodCode= "EVN" classCode="OBS"> <templateId root="216.840.1.811752.10...4.2 " /> <id nullFlavor="NA" /> <code codeSystem="local" code="ALB " displayName="Albumin" /> <statusCode code="completed" /> < effectiveTime value="334068793137" /> <value unit="g/dL" xsi:type="PQ" value="3.6" /> <referenceRange> <observationRange> <text>3.5-4.8</text> </observationRange> </ referenceRange> </observation> </component> <component> <observation moodCode="EVN" classCode="OBS"> <templateId root= "16.840.1.862026.07.02.22.4.2" /> <id nullFlavor="NA" /> < code codeSystem="local" code="ALP" displayName="Alkaline Phosphatase" /> <statusCode code="completed" /> <effectiveTime value="582356663445" /> <value unit="U/L" xsi:type="PQ" value="96" /> < referenceRange> <observationRange> <text>26-104</text> </observationRange> </referenceRange> </observation> </component> <component> <observation moodCode="EVN" classCode ="OBS"> <templateId root="216.840.1.986374.10..4.2" /> < id nullFlavor="NA" /> <code codeSystem="local" code="ALT" displayName= "ALT (SGPT)" /> <statusCode code="completed" /> < effectiveTime value="" /> <value unit="U/L" xsi:type="PQ" value="92" /> <interpretationCode codeSystem="local" code="*" /> <referenceRange> <observationRange> <text>17-63</ text> </observationRange> </referenceRange> </ observation> </component> <component> <observation moodCode= "EVN" classCode="OBS"> <templateId root="16.840.1.515877.07.02.22.4.2 " /> <id nullFlavor="NA" /> <code codeSystem="local" code="AST " displayName="AST (SGOT)" /> <statusCode code="completed" /> <effectiveTime value="" /> <value unit="U/L" xsi:type="PQ" value="77" /> <interpretationCode codeSystem="local" code="*" /> <referenceRange> <observationRange> <text>15-41</ text> </observationRange> </referenceRange> </ observation> </component> <component> <observation moodCode= "EVN" classCode="OBS"> <templateId root="216.840.1.371655.10..4.2 " /> <id nullFlavor="NA" /> <code codeSystem="local" code= "BILID" displayName="Bilirubin Direct" /> <statusCode code="completed" /> <effectiveTime value="" /> <value unit="mg/dL" xsi:type="PQ" value="0.3" /> <interpretationCode codeSystem="local" code="*" /> <referenceRange> <observationRange> <text>0.0-0.2</text> </observationRange> </referenceRange > </observation> </component> <component> <observation moodCode="EVN" classCode="OBS"> <templateId root= "10.29.840.1.663984.10.4.2" /> <id nullFlavor="NA" /> < code codeSystem="local" code="BILII" displayName="Bilirubin Indirect" /> <statusCode code="completed" /> <effectiveTime value="" /> <value unit="mg/dL" xsi:type="PQ" value="0.5" /> < referenceRange> <observationRange> <text>0.0-1.0</text> </observationRange> </referenceRange> </observation > </component> <component> <observation moodCode="EVN" classCode="OBS"> <templateId root="10.29.840.1.666609.07.02.22.4.2" /> <id nullFlavor="NA" /> <code codeSystem="local" code="BILIT" displayName="Bilirubin Total" /> <statusCode code="completed" /> <effectiveTime value="" /> <value unit="mg/dL" xsi:type ="PQ" value="0.8" /> <referenceRange> <observationRange> <text>0.2-1.2</text> </observationRange> </ referenceRange> </observation> </component> <component> <observation moodCode="EVN" classCode="OBS"> <templateId root= "10.29.840.1.193934.07.02.22.4.2" /> <id nullFlavor="NA" /> < code codeSystem="local" code="TP" displayName="Protein" /> <statusCode code="completed" /> <effectiveTime value="698610288590" /> < value unit="g/dL" xsi:type="PQ" value="6.7" /> <referenceRange> <observationRange> <text>6.1-7.9</text> </ observationRange> </referenceRange> </observation> </ component> </organizer> </entry> <entry> <organizer moodCode="EVN" classCode="BATTERY"> <templateId root="16.840.1.201011.07.02.22.4.1" /> <id nullFlavor="NA" /> <code codeSystem="local" code="CBCWD" displayName="CBC With Platelet and Differential" /> <statusCode code= "completed" /> <component> <observation moodCode="EVN" classCode= "OBS"> <templateId root="216.840.1.666549.07.02.22.4.2" /> < id nullFlavor="NA" /> <code codeSystem="local" code="ABASR" displayName ="Absolute Basophils" /> <statusCode code="completed" /> < effectiveTime value="728359376901" /> <value unit="10*3/uL" xsi:type= "PQ" value="0.06" /> <referenceRange> <observationRange> <text>0.00-0.20</text> </observationRange> </ referenceRange> </observation> </component> <component> <observation moodCode="EVN" classCode="OBS"> <templateId root= "16.840.1.079072.07.02.22.4.2" /> <id nullFlavor="NA" /> < code codeSystem="local" code="AEOSR" displayName="Absolute Eosinophils" /> <statusCode code="completed" /> <effectiveTime value="716469594828 " /> <value unit="10*3/uL" xsi:type="PQ" value="0.80" /> < interpretationCode codeSystem="local" code="*" /> <referenceRange> <observationRange> <text>0.00-0.50</text> </ observationRange> </referenceRange> </observation> </ component> <component> <observation moodCode="EVN" classCode="OBS"> <templateId root="2.16.840.1.140604....4.2" /> <id nullFlavor="NA" /> <code codeSystem="local" code="ALYMR" displayName= "Absolute Lymphocytes" /> <statusCode code="completed" /> < effectiveTime value="" /> <value unit="10*3/uL" xsi:type= "PQ" value="2.56" /> <referenceRange> <observationRange> <text>0.80-3.30</text> </observationRange> </ referenceRange> </observation> </component> <component> <observation moodCode="EVN" classCode="OBS"> <templateId root= "2.16.840.1.675785....4.2" /> <id nullFlavor="NA" /> < code codeSystem="local" code="AMONR" displayName="Absolute Monocytes" /> <statusCode code="completed" /> <effectiveTime value="" /> <value unit="10*3/uL" xsi:type="PQ" value="1.13" /> < interpretationCode codeSystem="local" code="*" /> <referenceRange> <observationRange> <text>0.30-1.00</text> </ observationRange> </referenceRange> </observation> </ component> <component> <observation moodCode="EVN" classCode="OBS"> <templateId root="216.840.1.941513.1022.4.2" /> <id nullFlavor="NA" /> <code codeSystem="local" code="ASEGR" displayName= "Absolute Neutrophils" /> <statusCode code="completed" /> < effectiveTime value="127620419144" /> <value unit="10*3/uL" xsi:type= "PQ" value="4.68" /> <referenceRange> <observationRange> <text>1.90-7.00</text> </observationRange> </ referenceRange> </observation> </component> <component> <observation moodCode="EVN" classCode="OBS"> <templateId root= "10.29.840.1.168387.10.4.2" /> <id nullFlavor="NA" /> < code codeSystem="local" code="BASOR" displayName="Basophils" /> < statusCode code="completed" /> <effectiveTime value="504838852235" /> <value unit="%" xsi:type="PQ" value="1" /> <referenceRange > <observationRange> <text>0-2</text> </ observationRange> </referenceRange> </observation> </ component> <component> <observation moodCode="EVN" classCode="OBS"> <templateId root="16.840.1.624453.1022.4.2" /> <id nullFlavor="NA" /> <code codeSystem="local" code="EOSR" displayName= "Eosinophils" /> <statusCode code="completed" /> < effectiveTime value="033798678445" /> <value unit="%" xsi:type="PQ " value="9" /> <interpretationCode codeSystem="local" code="*" /> <referenceRange> <observationRange> <text>0-4</text > </observationRange> </referenceRange> </observation > </component> <component> <observation moodCode="EVN" classCode="OBS"> <templateId root="216.840.1.666054.10..22.4.2" /> <id nullFlavor="NA" /> <code codeSystem="local" code="HCT" displayName="HCT" /> <statusCode code="completed" /> < effectiveTime value="671756300211" /> <value unit="%" xsi:type="PQ " value="47.5" /> <referenceRange> <observationRange> <text>42.0-52.0</text> </observationRange> </ referenceRange> </observation> </component> <component> <observation moodCode="EVN" classCode="OBS"> <templateId root= "10.29.840.1.485599.10...4.2" /> <id nullFlavor="NA" /> < code codeSystem="local" code="HGB" displayName="HGB" /> <statusCode code="completed" /> <effectiveTime value="312542481762" /> < value unit="g/dL" xsi:type="PQ" value="16.2" /> <referenceRange> <observationRange> <text>14.0-18.0</text> </ observationRange> </referenceRange> </observation> </ component> <component> <observation moodCode="EVN" classCode="OBS"> <templateId root="16.840.1.000705.10.20.22.4.2" /> <id nullFlavor="NA" /> <code codeSystem="local" code="IMGA" displayName= "Immature Granulocytes" /> <statusCode code="completed" /> < effectiveTime value="771632242471" /> <value unit="%" xsi:type="PQ " value="0.5" /> <referenceRange> <observationRange> <text>0.0-1.0</text> </observationRange> </ referenceRange> </observation> </component> <component> <observation moodCode="EVN" classCode="OBS"> <templateId root= "10.29.840.1.047991.10.20.22.4.2" /> <id nullFlavor="NA" /> < code codeSystem="local" code="LYMPR" displayName="Lymphocytes" /> < statusCode code="completed" /> <effectiveTime value="648996891457" /> <value unit="%" xsi:type="PQ" value="28" /> < referenceRange> <observationRange> <text>20-46</text> </observationRange> </referenceRange> </observation> </component> <component> <observation moodCode="EVN" classCode= "OBS"> <templateId root="10.29.840.1.908385.10.20.22.4.2" /> < id nullFlavor="NA" /> <code codeSystem="local" code="MCH" displayName= "MCH" /> <statusCode code="completed" /> <effectiveTime value= "663518096236" /> <value unit="pg" xsi:type="PQ" value="31.3" /> <referenceRange> <observationRange> <text>27.0-32.0< /text> </observationRange> </referenceRange> </ observation> </component> <component> <observation moodCode= "EVN" classCode="OBS"> <templateId root="840.1.203124.1022.4.2 " /> <id nullFlavor="NA" /> <code codeSystem="local" code= "MCHC" displayName="MCHC" /> <statusCode code="completed" /> < effectiveTime value="978324959088" /> <value unit="g/dL" xsi:type="PQ" value="34.1" /> <referenceRange> <observationRange> <text>32.0-36.0</text> </observationRange> </ referenceRange> </observation> </component> <component> <observation moodCode="EVN" classCode="OBS"> <templateId root= "216.840.1.411411.07.02.22.4.2" /> <id nullFlavor="NA" /> < code codeSystem="local" code="MCV" displayName="MCV" /> <statusCode code="completed" /> <effectiveTime value="311140237008" /> < value unit="fL" xsi:type="PQ" value="91.9" /> <referenceRange> <observationRange> <text>82.0-99.0</text> </ observationRange> </referenceRange> </observation> </ component> <component> <observation moodCode="EVN" classCode="OBS"> <templateId root="16.840.1.362298.10.4.2" /> <id nullFlavor="NA" /> <code codeSystem="local" code="MONOR" displayName= "Monocytes" /> <statusCode code="completed" /> <effectiveTime value="" /> <value unit="%" xsi:type="PQ" value="12" / > <interpretationCode codeSystem="local" code="*" /> < referenceRange> <observationRange> <text>4-11</text> </observationRange> </referenceRange> </observation> </component> <component> <observation moodCode="EVN" classCode= "OBS"> <templateId root="2.16.840.1.500035.10..4.2" /> < id nullFlavor="NA" /> <code codeSystem="local" code="MPV" displayName= "MPV" /> <statusCode code="completed" /> <effectiveTime value= "902272994964" /> <value unit="fL" xsi:type="PQ" value="10.9" /> <referenceRange> <observationRange> <text>9.4-12.3</ text> </observationRange> </referenceRange> </ observation> </component> <component> <observation moodCode= "EVN" classCode="OBS"> <templateId root="2.840.1.868537.07.02.22.4.2 " /> <id nullFlavor="NA" /> <code codeSystem="local" code= "SEGR" displayName="Neutrophils" /> <statusCode code="completed" /> <effectiveTime value="957423825979" /> <value unit="%" xsi: type="PQ" value="51" /> <referenceRange> <observationRange> <text>51-75</text> </observationRange> </ referenceRange> </observation> </component> <component> <observation moodCode="EVN" classCode="OBS"> <templateId root= "216.840.1.554117.07.02.22.4.2" /> <id nullFlavor="NA" /> < code codeSystem="local" code="NRBCA" displayName="Nucleated RBC Automated" /> <statusCode code="completed" /> <effectiveTime value= "351114618572" /> <value unit="/100WBC" xsi:type="PQ" value="0.0" /> <referenceRange> <observationRange> <text /> </observationRange> </referenceRange> </observation> </component> <component> <observation moodCode="EVN" classCode= "OBS"> <templateId root="840.1.275772.10.20.22.4.2" /> < id nullFlavor="NA" /> <code codeSystem="local" code="PLT" displayName= "Platelet Count" /> <statusCode code="completed" /> < effectiveTime value="700727921116" /> <value unit="K/uL" xsi:type="PQ" value="218" /> <referenceRange> <observationRange> <text>150-400</text> </observationRange> </ referenceRange> </observation> </component> <component> <observation moodCode="EVN" classCode="OBS"> <templateId root= "840.1.210278.102022.4.2" /> <id nullFlavor="NA" /> < code codeSystem="local" code="RBC" displayName="RBC" /> <statusCode code="completed" /> <effectiveTime value="578717472799" /> < value unit="10*6/uL" xsi:type="PQ" value="5.17" /> <referenceRange> <observationRange> <text>4.60-6.20</text> </ observationRange> </referenceRange> </observation> </ component> <component> <observation moodCode="EVN" classCode="OBS"> <templateId root="840.1.644915.10.20.22.4.2" /> <id nullFlavor="NA" /> <code codeSystem="local" code="RDW" displayName="RDW " /> <statusCode code="completed" /> <effectiveTime value= "177376790726" /> <value unit="%" xsi:type="PQ" value="14.2" /> <referenceRange> <observationRange> <text>11.5- 14.5</text> </observationRange> </referenceRange> </ observation> </component> <component> <observation moodCode= "EVN" classCode="OBS"> <templateId root="10.29.840.1.091526.10..22.4.2 " /> <id nullFlavor="NA" /> <code codeSystem="local" code= "WBCIR" displayName="WBC" /> <statusCode code="completed" /> < effectiveTime value="988484480849" /> <value unit="K/uL" xsi:type="PQ" value="9.3" /> <referenceRange> <observationRange> <text>4.8-10.8</text> </observationRange> </ referenceRange> </observation> </component> </organizer> </entry > <entry> <organizer moodCode="EVN" classCode="BATTERY"> <templateId root="10.29.840.1.459506.10..22.4.1" /> <id nullFlavor="NA" /> <code codeSystem="local" code="CMP" displayName="Comprehensive Metabolic Panel (CMP)" /> <statusCode code="completed" /> <component> <observation moodCode="EVN" classCode="OBS"> <templateId root= "10.29.840.1.758006.10..22.4.2" /> <id nullFlavor="NA" /> < code codeSystem="local" code="ALB" displayName="Albumin" /> < statusCode code="completed" /> <effectiveTime value="972006698887" /> <value unit="g/dL" xsi:type="PQ" value="4.3" /> < referenceRange> <observationRange> <text>3.5-4.8</text> </observationRange> </referenceRange> </observation > </component> <component> <observation moodCode="EVN" classCode="OBS"> <templateId root="216.840.1.730834.10..22.4.2" /> <id nullFlavor="NA" /> <code codeSystem="local" code="ALP" displayName="Alkaline Phosphatase" /> <statusCode code="completed" /> <effectiveTime value="760614296910" /> <value unit="U/L" xsi: type="PQ" value="109" /> <interpretationCode codeSystem="local" code="* " /> <referenceRange> <observationRange> <text> 26-104</text> </observationRange> </referenceRange> < /observation> </component> <component> <observation moodCode= "EVN" classCode="OBS"> <templateId root="10.29.840.1.349604.10..4.2 " /> <id nullFlavor="NA" /> <code codeSystem="local" code="ALT " displayName="ALT (SGPT)" /> <statusCode code="completed" /> <effectiveTime value="102862964441" /> <value unit="U/L" xsi:type="PQ" value="113" /> <interpretationCode codeSystem="local" code="*" /> <referenceRange> <observationRange> <text>17-63</ text> </observationRange> </referenceRange> </ observation> </component> <component> <observation moodCode= "EVN" classCode="OBS"> <templateId root="216.840.1.257093.10...4.2 " /> <id nullFlavor="NA" /> <code codeSystem="local" code= "AGAP" displayName="Anion Gap" /> <statusCode code="completed" /> <effectiveTime value="477143532264" /> <value unit="mEq/L" xsi: type="PQ" value="10" /> <referenceRange> <observationRange> <text>3-20</text> </observationRange> </ referenceRange> </observation> </component> <component> <observation moodCode="EVN" classCode="OBS"> <templateId root= "2.16.840.1.666247.10...4.2" /> <id nullFlavor="NA" /> < code codeSystem="local" code="AST" displayName="AST (SGOT)" /> < statusCode code="completed" /> <effectiveTime value="312106175695" /> <value unit="U/L" xsi:type="PQ" value="94" /> < interpretationCode codeSystem="local" code="*" /> <referenceRange> <observationRange> <text>15-41</text> </ observationRange> </referenceRange> </observation> </ component> <component> <observation moodCode="EVN" classCode="OBS"> <templateId root="2.16.840.1.452876....4.2" /> <id nullFlavor="NA" /> <code codeSystem="local" code="BILIT" displayName= "Bilirubin Total" /> <statusCode code="completed" /> < effectiveTime value="201772715503" /> <value unit="mg/dL" xsi:type="PQ " value="0.6" /> <referenceRange> <observationRange> <text>0.2-1.2</text> </observationRange> </ referenceRange> </observation> </component> <component> <observation moodCode="EVN" classCode="OBS"> <templateId root= "216.840.1.741378.10..22.4.2" /> <id nullFlavor="NA" /> < code codeSystem="local" code="BUN" displayName="BUN" /> <statusCode code="completed" /> <effectiveTime value="" /> < value unit="mg/dL" xsi:type="PQ" value="35" /> <interpretationCode codeSystem="local" code="*" /> <referenceRange> < observationRange> <text>4-20</text> </observationRange> </referenceRange> </observation> </component> < component> <observation moodCode="EVN" classCode="OBS"> < templateId root="10.29.840.1.573842.07.02.22.4.2" /> <id nullFlavor="NA " /> <code codeSystem="local" code="CA" displayName="Calcium" /> <statusCode code="completed" /> <effectiveTime value=" " /> <value unit="mg/dL" xsi:type="PQ" value="9.7" /> < referenceRange> <observationRange> <text>8.6-10.0</text > </observationRange> </referenceRange> </observation > </component> <component> <observation moodCode="EVN" classCode="OBS"> <templateId root="16.840.1.081248.10..22.4.2" /> <id nullFlavor="NA" /> <code codeSystem="local" code="CL" displayName="Chloride" /> <statusCode code="completed" /> < effectiveTime value="" /> <value unit="mEq/L" xsi:type="PQ " value="98" /> <interpretationCode codeSystem="local" code="*" /> <referenceRange> <observationRange> <text>99-109</ text> </observationRange> </referenceRange> </ observation> </component> <component> <observation moodCode= "EVN" classCode="OBS"> <templateId root="10.29.840.1.288687.10.20.22.4.2 " /> <id nullFlavor="NA" /> <code codeSystem="local" code="CO2 " displayName="CO2" /> <statusCode code="completed" /> < effectiveTime value="" /> <value unit="mEq/L" xsi:type="PQ " value="24" /> <referenceRange> <observationRange> <text>22-32</text> </observationRange> </ referenceRange> </observation> </component> <component> <observation moodCode="EVN" classCode="OBS"> <templateId root= "840.1.939391.10.2022.4.2" /> <id nullFlavor="NA" /> < code codeSystem="local" code="CREAT" displayName="Creatinine" /> < statusCode code="completed" /> <effectiveTime value="" /> <value unit="mg/dL" xsi:type="PQ" value="1.11" /> < referenceRange> <observationRange> <text>0.64-1.27</text > </observationRange> </referenceRange> </observation > </component> <component> <observation moodCode="EVN" classCode="OBS"> <templateId root="840.1.635347.10.20.22.4.2" /> <id nullFlavor="NA" /> <code codeSystem="local" code="GLOB" displayName="Globulin" /> <statusCode code="completed" /> < effectiveTime value="327390887651" /> <value unit="g/dL" xsi:type="PQ" value="4.0" /> <referenceRange> <observationRange> <text>1.9-4.3</text> </observationRange> </ referenceRange> </observation> </component> <component> <observation moodCode="EVN" classCode="OBS"> <templateId root= "10.29.840.1.233002.07.02.22.4.2" /> <id nullFlavor="NA" /> < code codeSystem="local" code="GLU" displayName="Glucose" /> < statusCode code="completed" /> <effectiveTime value="" /> <value unit="mg/dL" xsi:type="PQ" value="84" /> < referenceRange> <observationRange> <text>70-100</text> </observationRange> </referenceRange> </observation> </component> <component> <observation moodCode="EVN" classCode ="OBS"> <templateId root="10.29.840.1.224226.07.02.22.4.2" /> < id nullFlavor="NA" /> <code codeSystem="local" code="K" displayName= "Potassium" /> <statusCode code="completed" /> <effectiveTime value="" /> <value unit="mEq/L" xsi:type="PQ" value="5.0" / > <referenceRange> <observationRange> <text>3.6 -5.1</text> </observationRange> </referenceRange> </ observation> </component> <component> <observation moodCode= "EVN" classCode="OBS"> <templateId root="10.29.840.1.322140.22.4.2 " /> <id nullFlavor="NA" /> <code codeSystem="local" code="TP " displayName="Protein" /> <statusCode code="completed" /> < effectiveTime value="098994611726" /> <value unit="g/dL" xsi:type="PQ" value="8.3" /> <interpretationCode codeSystem="local" code="*" /> <referenceRange> <observationRange> <text>6.1-7.9</ text> </observationRange> </referenceRange> </ observation> </component> <component> <observation moodCode= "EVN" classCode="OBS"> <templateId root="840.1.483697.07.02.22.4.2 " /> <id nullFlavor="NA" /> <code codeSystem="local" code="NA " displayName="Sodium" /> <statusCode code="completed" /> < effectiveTime value="" /> <value unit="mEq/L" xsi:type="PQ " value="132" /> <interpretationCode codeSystem="local" code="*" /> <referenceRange> <observationRange> <text>136-144 </text> </observationRange> </referenceRange> </ observation> </component> </organizer> </entry> <entry> <organizer moodCode="EVN" classCode="BATTERY"> <templateId root= "840.1.644643.22.4.1" /> <id nullFlavor="NA" /> <code codeSystem="local" code="GFR" displayName="eGFR" /> <statusCode code= "completed" /> <component> <observation moodCode="EVN" classCode= "OBS"> <templateId root="840.1.101803.22.4.2" /> < id nullFlavor="NA" /> <code codeSystem="local" code="GFR" displayName= "eGFR" /> <statusCode code="completed" /> <effectiveTime value ="484134789179" /> <value unit="mL/min" xsi:type="PQ" value=">60" / > <referenceRange> <observationRange> <text>&gt ;60</text> </observationRange> </referenceRange> </ observation> </component> </organizer> </entry> <entry> <organizer moodCode="EVN" classCode="BATTERY"> <templateId root= "216.840.1.991440.10..22.4.1" /> <id nullFlavor="NA" /> <code codeSystem="local" code="TROP" displayName="Troponin" /> <statusCode code= "completed" /> <component> <observation moodCode="EVN" classCode= "OBS"> <templateId root="216.840.1.268237.10..22.4.2" /> < id nullFlavor="NA" /> <code codeSystem="local" code="TROP" displayName= "Troponin" /> <statusCode code="completed" /> <effectiveTime value="400494862640" /> <value unit="ng/mL" xsi:type="PQ" value="< 0.05" /> <referenceRange> <observationRange> < text><0.06</text> </observationRange> </referenceRange> </observation> </component> </organizer> </entry> <entry> < organizer moodCode="EVN" classCode="BATTERY"> <templateId root= "216.840.1.753717.10..22.4.1" /> <id nullFlavor="NA" /> <code codeSystem="local" code="BNP" displayName="B-Type Natriuretic Peptide" /> < statusCode code="completed" /> <component> <observation moodCode= "EVN" classCode="OBS"> <templateId root="2.16.840.1.518257.10..22.4.2 " /> <id nullFlavor="NA" /> <code codeSystem="local" code="BNP " displayName="B-Type Natriuretic Peptide" /> <statusCode code= "completed" /> <effectiveTime value="124402657918" /> <value unit="pg/mL" xsi:type="PQ" value="46" /> <referenceRange> < observationRange> <text>0-99</text> </observationRange> </referenceRange> </observation> </component> </ organizer> </entry> <entry> <organizer moodCode="EVN" classCode="BATTERY"> <templateId root="2.16.840.1.804538.10..22.4.1" /> <id nullFlavor= "NA" /> <code codeSystem="local" code="LACTN" displayName="Lactic Acid NPT " /> <statusCode code="completed" /> <component> <observation moodCode="EVN" classCode="OBS"> <templateId root= "2.16.840.1.465544.10.20.22.4.2" /> <id nullFlavor="NA" /> < code codeSystem="local" code="LACTN" displayName="Lactic Acid NPT" /> < statusCode code="completed" /> <effectiveTime value="968745677772" /> <value unit="mEq/L" xsi:type="PQ" value="1.5" /> < referenceRange> <observationRange> <text>0.5-2.2</text> </observationRange> </referenceRange> </observation > </component> </organizer> </entry> <entry> <organizer moodCode= "EVN" classCode="BATTERY"> <templateId root="216.840.1.139366.10.20.22.4.1 " /> <id nullFlavor="NA" /> <code codeSystem="local" code="ABGRT" displayName="Blood Gases, Arterial (RT)" /> <statusCode code="completed" / > <component> <observation moodCode="EVN" classCode="OBS"> <templateId root="216.840.1.368404.10..22.4.2" /> <id nullFlavor="NA " /> <code codeSystem="local" code="YNES" displayName="Arterial Base Excess" /> <statusCode code="completed" /> <effectiveTime value="411389368793" /> <value unit="NA" xsi:type="PQ" value="-3" /> <interpretationCode codeSystem="local" code="*" /> < referenceRange> <observationRange> <text>0-2</text> </observationRange> </referenceRange> </observation> </component> <component> <observation moodCode="EVN" classCode= "OBS"> <templateId root="2.16.840.1.692159.10..22.4.2" /> < id nullFlavor="NA" /> <code codeSystem="local" code="AHCO3" displayName ="Arterial Bicarbonate" /> <statusCode code="completed" /> < effectiveTime value="980730147135" /> <value unit="mEq/L" xsi:type="PQ " value="21" /> <interpretationCode codeSystem="local" code="*" /> <referenceRange> <observationRange> <text>22-26</ text> </observationRange> </referenceRange> </ observation> </component> <component> <observation moodCode= "EVN" classCode="OBS"> <templateId root="216.840.1.006192.10.20.22.4.2 " /> <id nullFlavor="NA" /> <code codeSystem="local" code= "AOSAT" displayName="Arterial O2 Saturation" /> <statusCode code= "completed" /> <effectiveTime value="265936963712" /> <value unit="%" xsi:type="PQ" value="91.5" /> <referenceRange> <observationRange> <text>90.0-97.0</text> </ observationRange> </referenceRange> </observation> </ component> <component> <observation moodCode="EVN" classCode="OBS"> <templateId root="216.840.1.480782.10..22.4.2" /> <id nullFlavor="NA" /> <code codeSystem="local" code="APCO2" displayName= "Arterial PCO2" /> <statusCode code="completed" /> < effectiveTime value="227839363497" /> <value unit="mmHg" xsi:type="PQ" value="35" /> <referenceRange> <observationRange> <text>35-45</text> </observationRange> </referenceRange > </observation> </component> <component> <observation moodCode="EVN" classCode="OBS"> <templateId root= "16.840.1.298810.10.20.22.4.2" /> <id nullFlavor="NA" /> < code codeSystem="local" code="APH" displayName="Arterial PH" /> < statusCode code="completed" /> <effectiveTime value="651830198041" /> <value unit="NA" xsi:type="PQ" value="7.40" /> <referenceRange > <observationRange> <text>7.35-7.45</text> < /observationRange> </referenceRange> </observation> </ component> <component> <observation moodCode="EVN" classCode="OBS"> <templateId root="216.840.1.604435.07.02.22.4.2" /> <id nullFlavor="NA" /> <code codeSystem="local" code="APO2" displayName= "Arterial PO2" /> <statusCode code="completed" /> < effectiveTime value="025479678316" /> <value unit="mmHg" xsi:type="PQ" value="63" /> <interpretationCode codeSystem="local" code="*" /> <referenceRange> <observationRange> <text>80-100</ text> </observationRange> </referenceRange> </ observation> </component> <component> <observation moodCode= "EVN" classCode="OBS"> <templateId root="10.29.840.1.113066.07.02.22.4.2 " /> <id nullFlavor="NA" /> <code codeSystem="local" code= "AFLOW" displayName="Arterial LPM" /> <statusCode code="completed" /> <effectiveTime value="054397267353" /> <value unit="L/min" xsi :type="PQ" value="3.0" /> <referenceRange> <observationRange > <text /> </observationRange> </referenceRange > </observation> </component> <component> <observation moodCode="EVN" classCode="OBS"> <templateId root= "16.840.1.649130.07.02.22.4.2" /> <id nullFlavor="NA" /> < code codeSystem="local" code="AO2PN" displayName="O2 Panel" /> < statusCode code="completed" /> <effectiveTime value="044348702845" /> <value unit="" xsi:type="PQ" value="nc" /> <referenceRange> <observationRange> <text /> </observationRange > </referenceRange> </observation> </component> < component> <observation moodCode="EVN" classCode="OBS"> < templateId root="16.840.1.776848.10.22.4.2" /> <id nullFlavor="NA " /> <code codeSystem="local" code="ASITE" displayName="Spec Site" /> <statusCode code="completed" /> <effectiveTime value= "777269870709" /> <value unit="" xsi:type="PQ" value="A. radialis l." / > <referenceRange> <observationRange> <text /> </observationRange> </referenceRange> </observation > </component> </organizer> </entry> <entry> <organizer moodCode= "EVN" classCode="BATTERY"> <templateId root="16.840.1.564343.10..4.1 " /> <id nullFlavor="NA" /> <code codeSystem="local" code="UA" displayName="Urinalysis with reflex microscopic" /> <statusCode code= "completed" /> <component> <observation moodCode="EVN" classCode= "OBS"> <templateId root="16.840.1.572794.10.4.2" /> < id nullFlavor="NA" /> <code codeSystem="local" code="UAPP" displayName= "Appearance" /> <statusCode code="completed" /> < effectiveTime value="171059098675" /> <value unit="NA" xsi:type="PQ" value="Clear" /> <referenceRange> <observationRange> <text /> </observationRange> </referenceRange> </observation> </component> <component> <observation moodCode ="EVN" classCode="OBS"> <templateId root= "16.840.1.142217.10.4.2" /> <id nullFlavor="NA" /> < code codeSystem="local" code="UBIL" displayName="Bilirubin" /> < statusCode code="completed" /> <effectiveTime value="569222058421" /> <value unit="NA" xsi:type="PQ" value="Negative" /> < referenceRange> <observationRange> <text>Negative</text > </observationRange> </referenceRange> </observation > </component> <component> <observation moodCode="EVN" classCode="OBS"> <templateId root="10.29.840.1.284312.07.02.22.4.2" /> <id nullFlavor="NA" /> <code codeSystem="local" code="UBLD" displayName="Blood" /> <statusCode code="completed" /> < effectiveTime value="569180539355" /> <value unit="NA" xsi:type="PQ" value="Negative" /> <referenceRange> <observationRange> <text>Negative</text> </observationRange> </ referenceRange> </observation> </component> <component> <observation moodCode="EVN" classCode="OBS"> <templateId root= "10.29.840.1.205755.07.02.22.4.2" /> <id nullFlavor="NA" /> < code codeSystem="local" code="UCOLR" displayName="Color" /> < statusCode code="completed" /> <effectiveTime value="345098888558" /> <value unit="NA" xsi:type="PQ" value="Yellow" /> < referenceRange> <observationRange> <text /> < /observationRange> </referenceRange> </observation> </ component> <component> <observation moodCode="EVN" classCode="OBS"> <templateId root="216.840.1.470400.10..4.2" /> <id nullFlavor="NA" /> <code codeSystem="local" code="UGLU" displayName= "Glucose, Urine" /> <statusCode code="completed" /> < effectiveTime value="248667520576" /> <value unit="" xsi:type="PQ" value="Negative" /> <referenceRange> <observationRange> <text>Negative</text> </observationRange> </ referenceRange> </observation> </component> <component> <observation moodCode="EVN" classCode="OBS"> <templateId root= "216.840.1.437983...4.2" /> <id nullFlavor="NA" /> < code codeSystem="local" code="UKET" displayName="Ketones" /> < statusCode code="completed" /> <effectiveTime value="890350837080" /> <value unit="" xsi:type="PQ" value="Negative" /> < referenceRange> <observationRange> <text>Negative</text > </observationRange> </referenceRange> </observation > </component> <component> <observation moodCode="EVN" classCode="OBS"> <templateId root="16.840.1.193819.10.22.4.2" /> <id nullFlavor="NA" /> <code codeSystem="local" code="ULEU" displayName="Leukocyte Esterase" /> <statusCode code="completed" /> <effectiveTime value="472902380561" /> <value unit="NA" xsi:type ="PQ" value="Negative" /> <referenceRange> <observationRange > <text>Negative</text> </observationRange> </ referenceRange> </observation> </component> <component> <observation moodCode="EVN" classCode="OBS"> <templateId root= "16.840.1.565175.10.4.2" /> <id nullFlavor="NA" /> < code codeSystem="local" code="UNIT" displayName="Nitrites" /> < statusCode code="completed" /> <effectiveTime value="149881864382" /> <value unit="NA" xsi:type="PQ" value="Negative" /> < referenceRange> <observationRange> <text>Negative</text > </observationRange> </referenceRange> </observation > </component> <component> <observation moodCode="EVN" classCode="OBS"> <templateId root="840.1.899111.07.02.22.4.2" /> <id nullFlavor="NA" /> <code codeSystem="local" code="UPH" displayName="pH" /> <statusCode code="completed" /> < effectiveTime value="" /> <value unit="NA" xsi:type="PQ" value="5.0" /> <referenceRange> <observationRange> <text>5.0-8.0</text> </observationRange> </ referenceRange> </observation> </component> <component> <observation moodCode="EVN" classCode="OBS"> <templateId root= "10.29.840.1.678919.10.4.2" /> <id nullFlavor="NA" /> < code codeSystem="local" code="UPRO" displayName="Protein" /> < statusCode code="completed" /> <effectiveTime value="614102069575" /> <value unit="NA" xsi:type="PQ" value="Negative" /> < referenceRange> <observationRange> <text>Negative</text > </observationRange> </referenceRange> </observation > </component> <component> <observation moodCode="EVN" classCode="OBS"> <templateId root="216.840.1.092193.10..4.2" /> <id nullFlavor="NA" /> <code codeSystem="local" code="USPG" displayName="Specific Casmalia" /> <statusCode code="completed" /> <effectiveTime value="538439365226" /> <value unit="NA" xsi:type= "PQ" value="1.010" /> <referenceRange> <observationRange> <text>1.003-1.030</text> </observationRange> </ referenceRange> </observation> </component> <component> <observation moodCode="EVN" classCode="OBS"> <templateId root= "10.29.840.1.879522.10.4.2" /> <id nullFlavor="NA" /> < code codeSystem="local" code="UTYP" displayName="UA Collection type" /> <statusCode code="completed" /> <effectiveTime value="227864432822" / > <value unit="NA" xsi:type="PQ" value="Webb" /> < referenceRange> <observationRange> <text /> < /observationRange> </referenceRange> </observation> </ component> <component> <observation moodCode="EVN" classCode="OBS"> <templateId root="10.29.840.1.059025.10.4.2" /> <id nullFlavor="NA" /> <code codeSystem="local" code="UURO" displayName= "Urobilinogen" /> <statusCode code="completed" /> < effectiveTime value="460693413475" /> <value unit="mg/dL" xsi:type="PQ " value="Negative" /> <referenceRange> <observationRange> <text><1.0</text> </observationRange> </ referenceRange> </observation> </component> </organizer> </entry > <entry> <organizer moodCode="EVN" classCode="BATTERY"> <templateId root="16.840.1.478740.10..22.4.1" /> <id nullFlavor="NA" /> <code codeSystem="local" code="UOSMO" displayName="Osmolality, Urine" /> < statusCode code="completed" /> <component> <observation moodCode= "EVN" classCode="OBS"> <templateId root="10.29.840.1.502327.10..22.4.2 " /> <id nullFlavor="NA" /> <code codeSystem="local" code= "UOSMO" displayName="Osmolality, Urine" /> <statusCode code="completed " /> <effectiveTime value="130163290702" /> <value unit="mOsm/ kg" xsi:type="PQ" value="431" /> <referenceRange> < observationRange> <text>38-1400</text> </ observationRange> </referenceRange> </observation> </ component> </organizer> </entry> <entry> <organizer moodCode="EVN" classCode="BATTERY"> <templateId root="16.840.1.443593.10..22.4.1" /> <id nullFlavor="NA" /> <code codeSystem="local" code="UDRGH" displayName="Urine Drug Screen" /> <statusCode code="completed" /> < component> <observation moodCode="EVN" classCode="OBS"> < templateId root="216.840.1.825151.10..22.4.2" /> <id nullFlavor="NA " /> <code codeSystem="local" code="UAMP1" displayName="Amph/Meth/ Ecstasy" /> <statusCode code="completed" /> <effectiveTime value="842517826882" /> <value unit="NA" xsi:type="PQ" value="Negative " /> <referenceRange> <observationRange> <text /> </observationRange> </referenceRange> </ observation> </component> <component> <observation moodCode= "EVN" classCode="OBS"> <templateId root="216.840.1.048349.10..4.2 " /> <id nullFlavor="NA" /> <code codeSystem="local" code= "UBAR1" displayName="Barbiturates" /> <statusCode code="completed" /> <effectiveTime value="519984108133" /> <value unit="NA" xsi: type="PQ" value="Negative" /> <referenceRange> < observationRange> <text /> </observationRange> </referenceRange> </observation> </component> <component> <observation moodCode="EVN" classCode="OBS"> <templateId root= "216.840.1.219465.07.02.22.4.2" /> <id nullFlavor="NA" /> < code codeSystem="local" code="UBEN1" displayName="Benzodiazepine" /> < statusCode code="completed" /> <effectiveTime value="693462400443" /> <value unit="NA" xsi:type="PQ" value="Negative" /> < referenceRange> <observationRange> <text /> < /observationRange> </referenceRange> </observation> </ component> <component> <observation moodCode="EVN" classCode="OBS"> <templateId root="16.840.1.061385.10..4.2" /> <id nullFlavor="NA" /> <code codeSystem="local" code="UCAN1" displayName= "Cannabinoid" /> <statusCode code="completed" /> < effectiveTime value="403921584637" /> <value unit="NA" xsi:type="PQ" value="Negative" /> <referenceRange> <observationRange> <text /> </observationRange> </referenceRange> </observation> </component> <component> <observation moodCode="EVN" classCode="OBS"> <templateId root= "16.840.1.303987.07.02.22.4.2" /> <id nullFlavor="NA" /> < code codeSystem="local" code="UCOC1" displayName="Cocaine" /> < statusCode code="completed" /> <effectiveTime value="519700632218" /> <value unit="NA" xsi:type="PQ" value="Negative" /> < referenceRange> <observationRange> <text /> < /observationRange> </referenceRange> </observation> </ component> <component> <observation moodCode="EVN" classCode="OBS"> <templateId root="16.840.1.959994.10.4.2" /> <id nullFlavor="NA" /> <code codeSystem="local" code="UMTD1" displayName= "EDDP (Methadone met.)" /> <statusCode code="completed" /> < effectiveTime value="346752896156" /> <value unit="NA" xsi:type="PQ" value="Negative" /> <referenceRange> <observationRange> <text /> </observationRange> </referenceRange> </observation> </component> <component> <observation moodCode="EVN" classCode="OBS"> <templateId root= "10.29.840.1.104120.10..4.2" /> <id nullFlavor="NA" /> < code codeSystem="local" code="UOPI1" displayName="Opiate" /> < statusCode code="completed" /> <effectiveTime value="854359815039" /> <value unit="NA" xsi:type="PQ" value="Negative" /> < referenceRange> <observationRange> <text /> < /observationRange> </referenceRange> </observation> </ component> <component> <observation moodCode="EVN" classCode="OBS"> <templateId root="10.29.840.1.268284.07.02.22.4.2" /> <id nullFlavor="NA" /> <code codeSystem="local" code="UPCP1" displayName= "Phencyclidine (PCP)" /> <statusCode code="completed" /> < effectiveTime value="355203491489" /> <value unit="NA" xsi:type="PQ" value="Negative" /> <referenceRange> <observationRange> <text /> </observationRange> </referenceRange> </observation> </component> </organizer> </entry> <entry> < organizer moodCode="EVN" classCode="BATTERY"> <templateId root= "10.29.840.1.793497.07.02.22.4.1" /> <id nullFlavor="NA" /> <code codeSystem="local" code="UNAR" displayName="Sodium Random Urine" /> < statusCode code="completed" /> <component> <observation moodCode= "EVN" classCode="OBS"> <templateId root="10.29.840.1.141920.07.02.22.4.2 " /> <id nullFlavor="NA" /> <code codeSystem="local" code= "UNAR" displayName="Sodium Random Urine" /> <statusCode code="completed " /> <effectiveTime value="939084364926" /> <value unit="mEq/L " xsi:type="PQ" value="71" /> <referenceRange> < observationRange> <text /> </observationRange> </referenceRange> </observation> </component> </organizer> </ entry> <entry> <organizer moodCode="EVN" classCode="BATTERY"> < templateId root="216.840.1.184491.10..22.4.1" /> <id nullFlavor="NA" /> <code codeSystem="local" code="UCRER" displayName="Creatinine Random Urine " /> <statusCode code="completed" /> <component> <observation moodCode="EVN" classCode="OBS"> <templateId root= "216.840.1.515607.10..22.4.2" /> <id nullFlavor="NA" /> < code codeSystem="local" code="UCRER" displayName="Creatinine Random Urine" /> <statusCode code="completed" /> <effectiveTime value= "916163755405" /> <value unit="mg/dL" xsi:type="PQ" value="40" /> <referenceRange> <observationRange> <text /> </observationRange> </referenceRange> </observation> </component> </organizer> </entry> <entry> <organizer moodCode="EVN" classCode="BATTERY"> <templateId root="216.840.1.363171.10..22.4.1" /> <id nullFlavor="NA" /> <code codeSystem="local" code="UUNR" displayName="Urea Nitrogen Random " /> <statusCode code="completed" /> <component> <observation moodCode="EVN" classCode="OBS"> < templateId root="2.840.1.480821.10..22.4.2" /> <id nullFlavor="NA " /> <code codeSystem="local" code="UUNR" displayName="Urea Nitrogen Random" /> <statusCode code="completed" /> <effectiveTime value="275153554601" /> <value unit="mg/dL" xsi:type="PQ" value="615" / > <referenceRange> <observationRange> <text /> </observationRange> </referenceRange> </observation > </component> </organizer> </entry> <entry> <organizer moodCode= "EVN" classCode="BATTERY"> <templateId root="2.840.1.621814.10..22.4.1 " /> <id nullFlavor="NA" /> <code codeSystem="local" code="ZH089" displayName="Histoplasma Ag, U" /> <statusCode code="completed" /> < component> <observation moodCode="EVN" classCode="OBS"> < templateId root="2.840.1.814743.10..22.4.2" /> <id nullFlavor="NA " /> <code codeSystem="local" code="Z6514" displayName="Histoplasma Ag , U" /> <statusCode code="completed" /> <effectiveTime value= "012119877776" /> <value unit="NA" xsi:type="PQ" value="Negative" /> <referenceRange> <observationRange> <text> Negative</text> </observationRange> </referenceRange> </observation> </component> <component> <observation moodCode ="EVN" classCode="OBS"> <templateId root= "840.1.178836.10..22.4.2" /> <id nullFlavor="NA" /> < code codeSystem="local" code="Z6515" displayName="Histoplasma Ag, U Value" /> <statusCode code="completed" /> <effectiveTime value= "676724604409" /> <value unit="ng/mL" xsi:type="PQ" value="0.00" /> <referenceRange> <observationRange> <text /> </observationRange> </referenceRange> </observation> </component> </organizer> </entry> <entry> <organizer moodCode="EVN" classCode="BATTERY"> <templateId root="16.840.1.749492.10..22.4.1" /> <id nullFlavor="NA" /> <code codeSystem="local" code="CMP" displayName ="Comprehensive Metabolic Panel (CMP)" /> <statusCode code="completed" /> <component> <observation moodCode="EVN" classCode="OBS"> < templateId root="16.840.1.720695.10..22.4.2" /> <id nullFlavor="NA " /> <code codeSystem="local" code="ALB" displayName="Albumin" /> <statusCode code="completed" /> <effectiveTime value="267394673511 " /> <value unit="g/dL" xsi:type="PQ" value="3.7" /> < referenceRange> <observationRange> <text>3.5-4.8</text> </observationRange> </referenceRange> </observation > </component> <component> <observation moodCode="EVN" classCode="OBS"> <templateId root="16.840.1.953444.10..22.4.2" /> <id nullFlavor="NA" /> <code codeSystem="local" code="ALP" displayName="Alkaline Phosphatase" /> <statusCode code="completed" /> <effectiveTime value="065842893689" /> <value unit="U/L" xsi: type="PQ" value="101" /> <referenceRange> <observationRange > <text>26-104</text> </observationRange> </ referenceRange> </observation> </component> <component> <observation moodCode="EVN" classCode="OBS"> <templateId root= "216.840.1.315069.10..22.4.2" /> <id nullFlavor="NA" /> < code codeSystem="local" code="ALT" displayName="ALT (SGPT)" /> < statusCode code="completed" /> <effectiveTime value="620023570795" /> <value unit="U/L" xsi:type="PQ" value="93" /> < interpretationCode codeSystem="local" code="*" /> <referenceRange> <observationRange> <text>17-63</text> </ observationRange> </referenceRange> </observation> </ component> <component> <observation moodCode="EVN" classCode="OBS"> <templateId root="216.840.1.012768.10..22.4.2" /> <id nullFlavor="NA" /> <code codeSystem="local" code="AGAP" displayName= "Anion Gap" /> <statusCode code="completed" /> <effectiveTime value="626133569576" /> <value unit="mEq/L" xsi:type="PQ" value="9" /> <referenceRange> <observationRange> <text>3-20 </text> </observationRange> </referenceRange> </ observation> </component> <component> <observation moodCode= "EVN" classCode="OBS"> <templateId root="10.29.840.1.413550.10.20.22.4.2 " /> <id nullFlavor="NA" /> <code codeSystem="local" code="AST " displayName="AST (SGOT)" /> <statusCode code="completed" /> <effectiveTime value="" /> <value unit="U/L" xsi:type="PQ" value="77" /> <interpretationCode codeSystem="local" code="*" /> <referenceRange> <observationRange> <text>15-41</ text> </observationRange> </referenceRange> </ observation> </component> <component> <observation moodCode= "EVN" classCode="OBS"> <templateId root="10.29.840.1.201422...4.2 " /> <id nullFlavor="NA" /> <code codeSystem="local" code= "BILIT" displayName="Bilirubin Total" /> <statusCode code="completed" / > <effectiveTime value="" /> <value unit="mg/dL" xsi:type="PQ" value="0.7" /> <referenceRange> < observationRange> <text>0.2-1.2</text> </ observationRange> </referenceRange> </observation> </ component> <component> <observation moodCode="EVN" classCode="OBS"> <templateId root="10.29.840.1.084389.10.20.22.4.2" /> <id nullFlavor="NA" /> <code codeSystem="local" code="BUN" displayName="BUN " /> <statusCode code="completed" /> <effectiveTime value= "" /> <value unit="mg/dL" xsi:type="PQ" value="38" /> <interpretationCode codeSystem="local" code="*" /> <referenceRange > <observationRange> <text>4-20</text> </ observationRange> </referenceRange> </observation> </ component> <component> <observation moodCode="EVN" classCode="OBS"> <templateId root="10.29.840.1.962907.10.20.22.4.2" /> <id nullFlavor="NA" /> <code codeSystem="local" code="CA" displayName= "Calcium" /> <statusCode code="completed" /> <effectiveTime value="804524182771" /> <value unit="mg/dL" xsi:type="PQ" value="9.0" / > <referenceRange> <observationRange> <text>8.6 -10.0</text> </observationRange> </referenceRange> </ observation> </component> <component> <observation moodCode= "EVN" classCode="OBS"> <templateId root="840.1.576931.10...4.2 " /> <id nullFlavor="NA" /> <code codeSystem="local" code="CL " displayName="Chloride" /> <statusCode code="completed" /> < effectiveTime value="372688502246" /> <value unit="mEq/L" xsi:type="PQ " value="96" /> <interpretationCode codeSystem="local" code="*" /> <referenceRange> <observationRange> <text>99-109</ text> </observationRange> </referenceRange> </ observation> </component> <component> <observation moodCode= "EVN" classCode="OBS"> <templateId root="10.29.840.1.201414.10.20.22.4.2 " /> <id nullFlavor="NA" /> <code codeSystem="local" code="CO2 " displayName="CO2" /> <statusCode code="completed" /> < effectiveTime value="[id number]" /> <value unit="mEq/L" xsi:type="PQ " value="25" /> <referenceRange> <observationRange> <text>22-32</text> </observationRange> </ referenceRange> </observation> </component> <component> <observation moodCode="EVN" classCode="OBS"> <templateId root= "216.840.1.488375.10.20.22.4.2" /> <id nullFlavor="NA" /> < code codeSystem="local" code="CREAT" displayName="Creatinine" /> < statusCode code="completed" /> <effectiveTime value="507570515100" /> <value unit="mg/dL" xsi:type="PQ" value="1.30" /> < interpretationCode codeSystem="local" code="*" /> <referenceRange> <observationRange> <text>0.64-1.27</text> </ observationRange> </referenceRange> </observation> </ component> <component> <observation moodCode="EVN" classCode="OBS"> <templateId root="216.840.1.015643.10.20.22.4.2" /> <id nullFlavor="NA" /> <code codeSystem="local" code="GLOB" displayName= "Globulin" /> <statusCode code="completed" /> <effectiveTime value="819773972736" /> <value unit="g/dL" xsi:type="PQ" value="3.5" / > <referenceRange> <observationRange> <text>1.9 -4.3</text> </observationRange> </referenceRange> </ observation> </component> <component> <observation moodCode= "EVN" classCode="OBS"> <templateId root="10.29.840.1.648665.10.20.22.4.2 " /> <id nullFlavor="NA" /> <code codeSystem="local" code="GLU " displayName="Glucose" /> <statusCode code="completed" /> < effectiveTime value="" /> <value unit="mg/dL" xsi:type="PQ " value="135" /> <interpretationCode codeSystem="local" code="*" /> <referenceRange> <observationRange> <text>70-100< /text> </observationRange> </referenceRange> </ observation> </component> <component> <observation moodCode= "EVN" classCode="OBS"> <templateId root="840.1.364873..22.4.2 " /> <id nullFlavor="NA" /> <code codeSystem="local" code="K" displayName="Potassium" /> <statusCode code="completed" /> < effectiveTime value="" /> <value unit="mEq/L" xsi:type="PQ " value="4.8" /> <referenceRange> <observationRange> <text>3.6-5.1</text> </observationRange> </ referenceRange> </observation> </component> <component> <observation moodCode="EVN" classCode="OBS"> <templateId root= "840.1.106489.10.20.22.4.2" /> <id nullFlavor="NA" /> < code codeSystem="local" code="TP" displayName="Protein" /> <statusCode code="completed" /> <effectiveTime value="" /> < value unit="g/dL" xsi:type="PQ" value="7.2" /> <referenceRange> <observationRange> <text>6.1-7.9</text> </ observationRange> </referenceRange> </observation> </ component> <component> <observation moodCode="EVN" classCode="OBS"> <templateId root="840.1.032184.102022.4.2" /> <id nullFlavor="NA" /> <code codeSystem="local" code="NA" displayName= "Sodium" /> <statusCode code="completed" /> <effectiveTime value="331002680442" /> <value unit="mEq/L" xsi:type="PQ" value="130" / > <interpretationCode codeSystem="local" code="*" /> < referenceRange> <observationRange> <text>136-144</text> </observationRange> </referenceRange> </observation > </component> </organizer> </entry> <entry> <organizer moodCode= "EVN" classCode="BATTERY"> <templateId root="840.1.849830.10.22.4.1 " /> <id nullFlavor="NA" /> <code codeSystem="local" code="PHOS" displayName="Phosphorus" /> <statusCode code="completed" /> <component > <observation moodCode="EVN" classCode="OBS"> <templateId root= "10.29.840.1.440792.102022.4.2" /> <id nullFlavor="NA" /> < code codeSystem="local" code="PHOS" displayName="Phosphorus" /> < statusCode code="completed" /> <effectiveTime value="519968047578" /> <value unit="mg/dL" xsi:type="PQ" value="5.9" /> < interpretationCode codeSystem="local" code="*" /> <referenceRange> <observationRange> <text>2.4-4.7</text> </ observationRange> </referenceRange> </observation> </ component> </organizer> </entry> <entry> <organizer moodCode="EVN" classCode="BATTERY"> <templateId root="10.29.840.1.526419.10.4.1" /> <id nullFlavor="NA" /> <code codeSystem="local" code="MG" displayName= "Magnesium" /> <statusCode code="completed" /> <component> < observation moodCode="EVN" classCode="OBS"> <templateId root= "840.1.132709.07.02.22.4.2" /> <id nullFlavor="NA" /> < code codeSystem="local" code="MG" displayName="Magnesium" /> < statusCode code="completed" /> <effectiveTime value="698888743994" /> <value unit="mg/dL" xsi:type="PQ" value="1.8" /> < referenceRange> <observationRange> <text>1.8-2.5</text> </observationRange> </referenceRange> </observation > </component> </organizer> </entry> <entry> <organizer moodCode= "EVN" classCode="BATTERY"> <templateId root="840.1.184589.07.02.22.4.1 " /> <id nullFlavor="NA" /> <code codeSystem="local" code="LDH" displayName="LDH" /> <statusCode code="completed" /> <component> <observation moodCode="EVN" classCode="OBS"> <templateId root= "10.29.840.1.724028.07.02.22.4.2" /> <id nullFlavor="NA" /> < code codeSystem="local" code="LDH" displayName="LDH" /> <statusCode code="completed" /> <effectiveTime value="919201519957" /> < value unit="U/L" xsi:type="PQ" value="144" /> <referenceRange> <observationRange> <text>98-192</text> </ observationRange> </referenceRange> </observation> </ component> </organizer> </entry> <entry> <organizer moodCode="EVN" classCode="BATTERY"> <templateId root="216.840.1.914093.10..22.4.1" /> <id nullFlavor="NA" /> <code codeSystem="local" code="ACETM" displayName="Acetaminophen" /> <statusCode code="completed" /> < component> <observation moodCode="EVN" classCode="OBS"> < templateId root="216.840.1.024022.10..22.4.2" /> <id nullFlavor="NA " /> <code codeSystem="local" code="ACETM" displayName="Acetaminophen" /> <statusCode code="completed" /> <effectiveTime value= "437615971605" /> <value unit="mcg/mL" xsi:type="PQ" value="<10" /> <referenceRange> <observationRange> <text>10- 30</text> </observationRange> </referenceRange> </ observation> </component> </organizer> </entry> <entry> <organizer moodCode="EVN" classCode="BATTERY"> <templateId root= "216.840.1.875910.10..22.4.1" /> <id nullFlavor="NA" /> <code codeSystem="local" code="GFR" displayName="eGFR" /> <statusCode code= "completed" /> <component> <observation moodCode="EVN" classCode= "OBS"> <templateId root="16.840.1.471186.10..22.4.2" /> < id nullFlavor="NA" /> <code codeSystem="local" code="GFR" displayName= "eGFR" /> <statusCode code="completed" /> <effectiveTime value ="413210045419" /> <value unit="mL/min" xsi:type="PQ" value="59" /> <interpretationCode codeSystem="local" code="*" /> < referenceRange> <observationRange> <text>>60</text> </observationRange> </referenceRange> </observation> </component> </organizer> </entry> <entry> <organizer moodCode= "EVN" classCode="BATTERY"> <templateId root="216.840.1.077417.10..22.4.1 " /> <id nullFlavor="NA" /> <code codeSystem="local" code="OSMO" displayName="Osmolality" /> <statusCode code="completed" /> <component > <observation moodCode="EVN" classCode="OBS"> <templateId root= "216.840.1.044379.10..22.4.2" /> <id nullFlavor="NA" /> < code codeSystem="local" code="OSMO" displayName="Osmolality" /> < statusCode code="completed" /> <effectiveTime value="455688519625" /> <value unit="mOsm/kg" xsi:type="PQ" value="291" /> < referenceRange> <observationRange> <text>275-300</text> </observationRange> </referenceRange> </observation > </component> </organizer> </entry> <entry> <organizer moodCode= "EVN" classCode="BATTERY"> <templateId root="216.840.1.372976.07.02.22.4.1 " /> <id nullFlavor="NA" /> <code codeSystem="local" code="CORTA" displayName="Cortisol AM" /> <statusCode code="completed" /> < component> <observation moodCode="EVN" classCode="OBS"> < templateId root="10.29.840.1.942392.07.02.22.4.2" /> <id nullFlavor="NA " /> <code codeSystem="local" code="CORTA" displayName="Cortisol AM" / > <statusCode code="completed" /> <effectiveTime value= "768649660030" /> <value unit="ug/dL" xsi:type="PQ" value="6" /> <interpretationCode codeSystem="local" code="*" /> <referenceRange > <observationRange> <text>7-18</text> </ observationRange> </referenceRange> </observation> </ component> </organizer> </entry> <entry> <organizer moodCode="EVN" classCode="BATTERY"> <templateId root="10.29.840.1.552343.07.02.22.4.1" /> <id nullFlavor="NA" /> <code codeSystem="local" code="TSH" displayName ="TSH" /> <statusCode code="completed" /> <component> < observation moodCode="EVN" classCode="OBS"> <templateId root= "10.29.840.1.842134.07.02.22.4.2" /> <id nullFlavor="NA" /> < code codeSystem="local" code="TSH" displayName="TSH" /> <statusCode code="completed" /> <effectiveTime value="023932058886" /> < value unit="uIU/mL" xsi:type="PQ" value="1.69" /> <referenceRange> <observationRange> <text>0.35-4.94</text> </ observationRange> </referenceRange> </observation> </ component> </organizer> </entry> <entry> <organizer moodCode="EVN" classCode="BATTERY"> <templateId root="216.840.1.766738.10..22.4.1" /> <id nullFlavor="NA" /> <code codeSystem="local" code="HEP4" displayName="Hepatitis Panel" /> <statusCode code="completed" /> < component> <observation moodCode="EVN" classCode="OBS"> < templateId root="2.16.840.1.916565.10...4.2" /> <id nullFlavor="NA " /> <code codeSystem="local" code="HAABM" displayName="Hepatitis A Antibody IGM" /> <statusCode code="completed" /> < effectiveTime value="793459191690" /> <value unit="" xsi:type="PQ" value="Negative" /> <referenceRange> <observationRange> <text /> </observationRange> </referenceRange> </observation> </component> <component> <observation moodCode="EVN" classCode="OBS"> <templateId root= "216.840.1.186204.10...4.2" /> <id nullFlavor="NA" /> < code codeSystem="local" code="HBSAG" displayName="Hepatitis B Surface Antigen" / > <statusCode code="completed" /> <effectiveTime value= "339062786461" /> <value unit="" xsi:type="PQ" value="Negative" /> <referenceRange> <observationRange> <text /> </observationRange> </referenceRange> </observation> </component> </organizer> </entry> <entry> <organizer moodCode="EVN" classCode="BATTERY"> <templateId root="216.840.1.618291.10..22.4.1" /> <id nullFlavor="NA" /> <code codeSystem="local" code="CBCWD" displayName="CBC With Platelet and Differential" /> <statusCode code= "completed" /> <component> <observation moodCode="EVN" classCode= "OBS"> <templateId root="216.840.1.271856.10..22.4.2" /> < id nullFlavor="NA" /> <code codeSystem="local" code="ABASR" displayName ="Absolute Basophils" /> <statusCode code="completed" /> < effectiveTime value="010535225160" /> <value unit="10*3/uL" xsi:type= "PQ" value="0.00" /> <referenceRange> <observationRange> <text>0.00-0.20</text> </observationRange> </ referenceRange> </observation> </component> <component> <observation moodCode="EVN" classCode="OBS"> <templateId root= "216.840.1.753040.10..22.4.2" /> <id nullFlavor="NA" /> < code codeSystem="local" code="AEOSR" displayName="Absolute Eosinophils" /> <statusCode code="completed" /> <effectiveTime value="622075562870 " /> <value unit="10*3/uL" xsi:type="PQ" value="0.00" /> < referenceRange> <observationRange> <text>0.00-0.50</text > </observationRange> </referenceRange> </observation > </component> <component> <observation moodCode="EVN" classCode="OBS"> <templateId root="840.1.193915.07.02.22.4.2" /> <id nullFlavor="NA" /> <code codeSystem="local" code="ALYMR" displayName="Absolute Lymphocytes" /> <statusCode code="completed" /> <effectiveTime value="" /> <value unit="10*3/uL" xsi:type="PQ" value="0.86" /> <referenceRange> < observationRange> <text>0.80-3.30</text> </ observationRange> </referenceRange> </observation> </ component> <component> <observation moodCode="EVN" classCode="OBS"> <templateId root="840.1.682852.07.02.224.2" /> <id nullFlavor="NA" /> <code codeSystem="local" code="AMONR" displayName= "Absolute Monocytes" /> <statusCode code="completed" /> < effectiveTime value="" /> <value unit="10*3/uL" xsi:type= "PQ" value="0.53" /> <referenceRange> <observationRange> <text>0.30-1.00</text> </observationRange> </ referenceRange> </observation> </component> <component> <observation moodCode="EVN" classCode="OBS"> <templateId root= "840.1.384571.07.02.22.4.2" /> <id nullFlavor="NA" /> < code codeSystem="local" code="ASEGR" displayName="Absolute Neutrophils" /> <statusCode code="completed" /> <effectiveTime value=" " /> <value unit="10*3/uL" xsi:type="PQ" value="7.71" /> < interpretationCode codeSystem="local" code="*" /> <referenceRange> <observationRange> <text>1.90-7.00</text> </ observationRange> </referenceRange> </observation> </ component> <component> <observation moodCode="EVN" classCode="OBS"> <templateId root="216.840.1.487802.10.2022.4.2" /> <id nullFlavor="NA" /> <code codeSystem="local" code="BASOR" displayName= "Basophils" /> <statusCode code="completed" /> <effectiveTime value="043967113565" /> <value unit="%" xsi:type="PQ" value="0" /> <referenceRange> <observationRange> <text>0-2< /text> </observationRange> </referenceRange> </ observation> </component> <component> <observation moodCode= "EVN" classCode="OBS"> <templateId root="10.29.840.1.106774.07.02.22.4.2 " /> <id nullFlavor="NA" /> <code codeSystem="local" code= "EOSR" displayName="Eosinophils" /> <statusCode code="completed" /> <effectiveTime value="174894343266" /> <value unit="%" xsi: type="PQ" value="0" /> <referenceRange> <observationRange> <text>0-4</text> </observationRange> </ referenceRange> </observation> </component> <component> <observation moodCode="EVN" classCode="OBS"> <templateId root= "10.29.840.1.751368.10.22.4.2" /> <id nullFlavor="NA" /> < code codeSystem="local" code="HCT" displayName="HCT" /> <statusCode code="completed" /> <effectiveTime value="883941667648" /> < value unit="%" xsi:type="PQ" value="39.8" /> <interpretationCode codeSystem="local" code="*" /> <referenceRange> < observationRange> <text>42.0-52.0</text> </ observationRange> </referenceRange> </observation> </ component> <component> <observation moodCode="EVN" classCode="OBS"> <templateId root="10.29.840.1.584426.10..4.2" /> <id nullFlavor="NA" /> <code codeSystem="local" code="HGB" displayName="HGB " /> <statusCode code="completed" /> <effectiveTime value= "504334860474" /> <value unit="g/dL" xsi:type="PQ" value="13.8" /> <interpretationCode codeSystem="local" code="*" /> < referenceRange> <observationRange> <text>14.0-18.0</text > </observationRange> </referenceRange> </observation > </component> <component> <observation moodCode="EVN" classCode="OBS"> <templateId root="10.29.840.1.047399.10...4.2" /> <id nullFlavor="NA" /> <code codeSystem="local" code="IMGA" displayName="Immature Granulocytes" /> <statusCode code="completed" /> <effectiveTime value="524456082874" /> <value unit="%" xsi:type="PQ" value="0.5" /> <referenceRange> < observationRange> <text>0.0-1.0</text> </ observationRange> </referenceRange> </observation> </ component> <component> <observation moodCode="EVN" classCode="OBS"> <templateId root="10.29.830.1.619099.10..22.4.2" /> <id nullFlavor="NA" /> <code codeSystem="local" code="LYMPR" displayName= "Lymphocytes" /> <statusCode code="completed" /> < effectiveTime value="846694602098" /> <value unit="%" xsi:type="PQ " value="9" /> <interpretationCode codeSystem="local" code="*" /> <referenceRange> <observationRange> <text>20-46</ text> </observationRange> </referenceRange> </ observation> </component> <component> <observation moodCode= "EVN" classCode="OBS"> <templateId root="10.29.840.1.354590.10..4.2 " /> <id nullFlavor="NA" /> <code codeSystem="local" code="MCH " displayName="MCH" /> <statusCode code="completed" /> < effectiveTime value="" /> <value unit="pg" xsi:type="PQ" value="30.7" /> <referenceRange> <observationRange> <text>27.0-32.0</text> </observationRange> </ referenceRange> </observation> </component> <component> <observation moodCode="EVN" classCode="OBS"> <templateId root= "10.29.840.1.270672.10.22.4.2" /> <id nullFlavor="NA" /> < code codeSystem="local" code="MCHC" displayName="MCHC" /> <statusCode code="completed" /> <effectiveTime value="878507699948" /> < value unit="g/dL" xsi:type="PQ" value="34.7" /> <referenceRange> <observationRange> <text>32.0-36.0</text> </ observationRange> </referenceRange> </observation> </ component> <component> <observation moodCode="EVN" classCode="OBS"> <templateId root="216.840.1.469470.10.4.2" /> <id nullFlavor="NA" /> <code codeSystem="local" code="MCV" displayName="MCV " /> <statusCode code="completed" /> <effectiveTime value= "" /> <value unit="fL" xsi:type="PQ" value="88.4" /> <referenceRange> <observationRange> <text>82.0-99.0< /text> </observationRange> </referenceRange> </ observation> </component> <component> <observation moodCode= "EVN" classCode="OBS"> <templateId root="10.29.840.1.739786.10.4.2 " /> <id nullFlavor="NA" /> <code codeSystem="local" code= "MONOR" displayName="Monocytes" /> <statusCode code="completed" /> <effectiveTime value="" /> <value unit="%" xsi: type="PQ" value="6" /> <referenceRange> <observationRange> <text>4-11</text> </observationRange> </ referenceRange> </observation> </component> <component> <observation moodCode="EVN" classCode="OBS"> <templateId root= "10.29.840.1.045054.1022.4.2" /> <id nullFlavor="NA" /> < code codeSystem="local" code="MPV" displayName="MPV" /> <statusCode code="completed" /> <effectiveTime value="" /> < value unit="fL" xsi:type="PQ" value="11.1" /> <referenceRange> <observationRange> <text>9.4-12.3</text> </ observationRange> </referenceRange> </observation> </ component> <component> <observation moodCode="EVN" classCode="OBS"> <templateId root="16.840.1.134574.10..4.2" /> <id nullFlavor="NA" /> <code codeSystem="local" code="SEGR" displayName= "Neutrophils" /> <statusCode code="completed" /> < effectiveTime value="904071646857" /> <value unit="%" xsi:type="PQ " value="84" /> <interpretationCode codeSystem="local" code="*" /> <referenceRange> <observationRange> <text>51-75</ text> </observationRange> </referenceRange> </ observation> </component> <component> <observation moodCode= "EVN" classCode="OBS"> <templateId root="840.1.029917.07.02.22.4.2 " /> <id nullFlavor="NA" /> <code codeSystem="local" code= "NRBCA" displayName="Nucleated RBC Automated" /> <statusCode code= "completed" /> <effectiveTime value="277082280582" /> <value unit="/100WBC" xsi:type="PQ" value="0.0" /> <referenceRange> <observationRange> <text /> </observationRange> </referenceRange> </observation> </component> <component> <observation moodCode="EVN" classCode="OBS"> <templateId root= "10.29.840.1.556470.10.22.4.2" /> <id nullFlavor="NA" /> < code codeSystem="local" code="PLT" displayName="Platelet Count" /> < statusCode code="completed" /> <effectiveTime value="189564599183" /> <value unit="K/uL" xsi:type="PQ" value="199" /> < referenceRange> <observationRange> <text>150-400</text> </observationRange> </referenceRange> </observation > </component> <component> <observation moodCode="EVN" classCode="OBS"> <templateId root="216.840.1.309006.10.20.22.4.2" /> <id nullFlavor="NA" /> <code codeSystem="local" code="RBC" displayName="RBC" /> <statusCode code="completed" /> < effectiveTime value="350280853574" /> <value unit="10*6/uL" xsi:type= "PQ" value="4.50" /> <interpretationCode codeSystem="local" code="*" / > <referenceRange> <observationRange> <text> 4.60-6.20</text> </observationRange> </referenceRange> </observation> </component> <component> <observation moodCode="EVN" classCode="OBS"> <templateId root= "216.840.1.186840.10.20.22.4.2" /> <id nullFlavor="NA" /> < code codeSystem="local" code="RDW" displayName="RDW" /> <statusCode code="completed" /> <effectiveTime value="120991349981" /> < value unit="%" xsi:type="PQ" value="13.3" /> <referenceRange> <observationRange> <text>11.5-14.5</text> </ observationRange> </referenceRange> </observation> </ component> <component> <observation moodCode="EVN" classCode="OBS"> <templateId root="16.840.1.797789.10.20.22.4.2" /> <id nullFlavor="NA" /> <code codeSystem="local" code="WBCIR" displayName= "WBC" /> <statusCode code="completed" /> <effectiveTime value= "984143104187" /> <value unit="K/uL" xsi:type="PQ" value="9.2" /> <referenceRange> <observationRange> <text>4.8-10.8< /text> </observationRange> </referenceRange> </ observation> </component> </organizer> </entry> <entry> <organizer moodCode="EVN" classCode="BATTERY"> <templateId root= "216.840.1.451787.10.20.22.4.1" /> <id nullFlavor="NA" /> <code codeSystem="local" code="PHOS" displayName="Phosphorus" /> <statusCode code ="completed" /> <component> <observation moodCode="EVN" classCode= "OBS"> <templateId root="216.840.1.909585.10.20.22.4.2" /> < id nullFlavor="NA" /> <code codeSystem="local" code="PHOS" displayName= "Phosphorus" /> <statusCode code="completed" /> < effectiveTime value="954273691963" /> <value unit="mg/dL" xsi:type="PQ " value="5.2" /> <interpretationCode codeSystem="local" code="*" /> <referenceRange> <observationRange> <text>2.4-4.7 </text> </observationRange> </referenceRange> </ observation> </component> </organizer> </entry> <entry> <organizer moodCode="EVN" classCode="BATTERY"> <templateId root= "10.29.840.1.657805.10.4.1" /> <id nullFlavor="NA" /> <code codeSystem="local" code="MG" displayName="Magnesium" /> <statusCode code= "completed" /> <component> <observation moodCode="EVN" classCode= "OBS"> <templateId root="840.1.317316.07.02.22.4.2" /> < id nullFlavor="NA" /> <code codeSystem="local" code="MG" displayName= "Magnesium" /> <statusCode code="completed" /> <effectiveTime value="837637962813" /> <value unit="mg/dL" xsi:type="PQ" value="1.9" / > <referenceRange> <observationRange> <text>1.8 -2.5</text> </observationRange> </referenceRange> </ observation> </component> </organizer> </entry> <entry> <organizer moodCode="EVN" classCode="BATTERY"> <templateId root= "840.1.750914.07.02.22.4.1" /> <id nullFlavor="NA" /> <code codeSystem="local" code="CMP" displayName="Comprehensive Metabolic Panel (CMP)" /> <statusCode code="completed" /> <component> <observation moodCode="EVN" classCode="OBS"> <templateId root= "10.29.840.1.693444.07.02.22.4.2" /> <id nullFlavor="NA" /> < code codeSystem="local" code="ALB" displayName="Albumin" /> < statusCode code="completed" /> <effectiveTime value="259084712570" /> <value unit="g/dL" xsi:type="PQ" value="3.6" /> < referenceRange> <observationRange> <text>3.5-4.8</text> </observationRange> </referenceRange> </observation > </component> <component> <observation moodCode="EVN" classCode="OBS"> <templateId root="10.29.840.1.637128.10.20.22.4.2" /> <id nullFlavor="NA" /> <code codeSystem="local" code="ALP" displayName="Alkaline Phosphatase" /> <statusCode code="completed" /> <effectiveTime value="271802206485" /> <value unit="U/L" xsi: type="PQ" value="96" /> <referenceRange> <observationRange> <text>26-104</text> </observationRange> </ referenceRange> </observation> </component> <component> <observation moodCode="EVN" classCode="OBS"> <templateId root= "10.29.840.1.194533.10...4.2" /> <id nullFlavor="NA" /> < code codeSystem="local" code="ALT" displayName="ALT (SGPT)" /> < statusCode code="completed" /> <effectiveTime value="105187587453" /> <value unit="U/L" xsi:type="PQ" value="77" /> < interpretationCode codeSystem="local" code="*" /> <referenceRange> <observationRange> <text>17-63</text> </ observationRange> </referenceRange> </observation> </ component> <component> <observation moodCode="EVN" classCode="OBS"> <templateId root="10.29.840.1.049153.10.20.22.4.2" /> <id nullFlavor="NA" /> <code codeSystem="local" code="AGAP" displayName= "Anion Gap" /> <statusCode code="completed" /> <effectiveTime value="749688993699" /> <value unit="mEq/L" xsi:type="PQ" value="10" / > <referenceRange> <observationRange> <text>3- 20</text> </observationRange> </referenceRange> </ observation> </component> <component> <observation moodCode= "EVN" classCode="OBS"> <templateId root="10.29.840.1.795320.10..22.4.2 " /> <id nullFlavor="NA" /> <code codeSystem="local" code="AST " displayName="AST (SGOT)" /> <statusCode code="completed" /> <effectiveTime value="082965695006" /> <value unit="U/L" xsi:type="PQ" value="49" /> <interpretationCode codeSystem="local" code="*" /> <referenceRange> <observationRange> <text>15-41</ text> </observationRange> </referenceRange> </ observation> </component> <component> <observation moodCode= "EVN" classCode="OBS"> <templateId root="10.29.840.1.095783.10.20.22.4.2 " /> <id nullFlavor="NA" /> <code codeSystem="local" code= "BILIT" displayName="Bilirubin Total" /> <statusCode code="completed" / > <effectiveTime value="200403134300" /> <value unit="mg/dL" xsi:type="PQ" value="0.5" /> <referenceRange> < observationRange> <text>0.2-1.2</text> </ observationRange> </referenceRange> </observation> </ component> <component> <observation moodCode="EVN" classCode="OBS"> <templateId root="840.1.148998.10.20.22.4.2" /> <id nullFlavor="NA" /> <code codeSystem="local" code="BUN" displayName="BUN " /> <statusCode code="completed" /> <effectiveTime value= "971347363778" /> <value unit="mg/dL" xsi:type="PQ" value="58" /> <interpretationCode codeSystem="local" code="*" /> <referenceRange > <observationRange> <text>4-20</text> </ observationRange> </referenceRange> </observation> </ component> <component> <observation moodCode="EVN" classCode="OBS"> <templateId root="840.1.552208.22.4.2" /> <id nullFlavor="NA" /> <code codeSystem="local" code="CA" displayName= "Calcium" /> <statusCode code="completed" /> <effectiveTime value="693685100705" /> <value unit="mg/dL" xsi:type="PQ" value="9.1" / > <referenceRange> <observationRange> <text>8.6 -10.0</text> </observationRange> </referenceRange> </ observation> </component> <component> <observation moodCode= "EVN" classCode="OBS"> <templateId root="10.29.840.1.776958.10.20.22.4.2 " /> <id nullFlavor="NA" /> <code codeSystem="local" code="CL " displayName="Chloride" /> <statusCode code="completed" /> < effectiveTime value="668475427870" /> <value unit="mEq/L" xsi:type="PQ " value="97" /> <interpretationCode codeSystem="local" code="*" /> <referenceRange> <observationRange> <text>99-109</ text> </observationRange> </referenceRange> </ observation> </component> <component> <observation moodCode= "EVN" classCode="OBS"> <templateId root="16.840.1.829133.10..4.2 " /> <id nullFlavor="NA" /> <code codeSystem="local" code="CO2 " displayName="CO2" /> <statusCode code="completed" /> < effectiveTime value="374725526971" /> <value unit="mEq/L" xsi:type="PQ " value="22" /> <referenceRange> <observationRange> <text>22-32</text> </observationRange> </ referenceRange> </observation> </component> <component> <observation moodCode="EVN" classCode="OBS"> <templateId root= "10.29.840.1.905807.07.02.22.4.2" /> <id nullFlavor="NA" /> < code codeSystem="local" code="CREAT" displayName="Creatinine" /> < statusCode code="completed" /> <effectiveTime value="783496262623" /> <value unit="mg/dL" xsi:type="PQ" value="1.41" /> < interpretationCode codeSystem="local" code="*" /> <referenceRange> <observationRange> <text>0.64-1.27</text> </ observationRange> </referenceRange> </observation> </ component> <component> <observation moodCode="EVN" classCode="OBS"> <templateId root="10.29.840.1.389711.07.02.22.4.2" /> <id nullFlavor="NA" /> <code codeSystem="local" code="GLOB" displayName= "Globulin" /> <statusCode code="completed" /> <effectiveTime value="483127420666" /> <value unit="g/dL" xsi:type="PQ" value="3.6" / > <referenceRange> <observationRange> <text>1.9 -4.3</text> </observationRange> </referenceRange> </ observation> </component> <component> <observation moodCode= "EVN" classCode="OBS"> <templateId root="10.29.840.1.032908.22.4.2 " /> <id nullFlavor="NA" /> <code codeSystem="local" code="GLU " displayName="Glucose" /> <statusCode code="completed" /> < effectiveTime value="847534395254" /> <value unit="mg/dL" xsi:type="PQ " value="114" /> <interpretationCode codeSystem="local" code="*" /> <referenceRange> <observationRange> <text>70-100< /text> </observationRange> </referenceRange> </ observation> </component> <component> <observation moodCode= "EVN" classCode="OBS"> <templateId root="10.29.840.1.950971.22.4.2 " /> <id nullFlavor="NA" /> <code codeSystem="local" code="K" displayName="Potassium" /> <statusCode code="completed" /> < effectiveTime value="652602365428" /> <value unit="mEq/L" xsi:type="PQ " value="5.6" /> <interpretationCode codeSystem="local" code="*" /> <referenceRange> <observationRange> <text>3.6-5.1 </text> </observationRange> </referenceRange> </ observation> </component> <component> <observation moodCode= "EVN" classCode="OBS"> <templateId root="10.29.830.1.518502.22.4.2 " /> <id nullFlavor="NA" /> <code codeSystem="local" code="TP " displayName="Protein" /> <statusCode code="completed" /> < effectiveTime value="405110523796" /> <value unit="g/dL" xsi:type="PQ" value="7.2" /> <referenceRange> <observationRange> <text>6.1-7.9</text> </observationRange> </ referenceRange> </observation> </component> <component> <observation moodCode="EVN" classCode="OBS"> <templateId root= "840.1.095296.07.02.22.4.2" /> <id nullFlavor="NA" /> < code codeSystem="local" code="NA" displayName="Sodium" /> <statusCode code="completed" /> <effectiveTime value="397682274810" /> < value unit="mEq/L" xsi:type="PQ" value="129" /> <interpretationCode codeSystem="local" code="*" /> <referenceRange> < observationRange> <text>136-144</text> </ observationRange> </referenceRange> </observation> </ component> </organizer> </entry> <entry> <organizer moodCode="EVN" classCode="BATTERY"> <templateId root="840.1.971065.22.4.1" /> <id nullFlavor="NA" /> <code codeSystem="local" code="GFR" displayName ="eGFR" /> <statusCode code="completed" /> <component> < observation moodCode="EVN" classCode="OBS"> <templateId root= "840.1.471903.22.4.2" /> <id nullFlavor="NA" /> < code codeSystem="local" code="GFR" displayName="eGFR" /> <statusCode code="completed" /> <effectiveTime value="969642231553" /> < value unit="mL/min" xsi:type="PQ" value="54" /> <interpretationCode codeSystem="local" code="*" /> <referenceRange> < observationRange> <text>>60</text> </observationRange > </referenceRange> </observation> </component> </ organizer> </entry> <entry> <organizer moodCode="EVN" classCode="BATTERY"> <templateId root="16.840.1.649147.10..22.4.1" /> <id nullFlavor= "NA" /> <code codeSystem="local" code="BMP" displayName="Basic Metabolic Panel (BMP)" /> <statusCode code="completed" /> <component> < observation moodCode="EVN" classCode="OBS"> <templateId root= "10.29.840.1.974188.10..22.4.2" /> <id nullFlavor="NA" /> < code codeSystem="local" code="AGAP" displayName="Anion Gap" /> < statusCode code="completed" /> <effectiveTime value="882846742893" /> <value unit="mEq/L" xsi:type="PQ" value="8" /> <referenceRange > <observationRange> <text>3-20</text> </ observationRange> </referenceRange> </observation> </ component> <component> <observation moodCode="EVN" classCode="OBS"> <templateId root="10.29.840.1.924945.10..22.4.2" /> <id nullFlavor="NA" /> <code codeSystem="local" code="BUN" displayName="BUN " /> <statusCode code="completed" /> <effectiveTime value= "102188030493" /> <value unit="mg/dL" xsi:type="PQ" value="66" /> <interpretationCode codeSystem="local" code="*" /> <referenceRange > <observationRange> <text>4-20</text> </ observationRange> </referenceRange> </observation> </ component> <component> <observation moodCode="EVN" classCode="OBS"> <templateId root="10.29.840.1.311087.10.20.22.4.2" /> <id nullFlavor="NA" /> <code codeSystem="local" code="CA" displayName= "Calcium" /> <statusCode code="completed" /> <effectiveTime value="009163361068" /> <value unit="mg/dL" xsi:type="PQ" value="8.7" / > <referenceRange> <observationRange> <text>8.6 -10.0</text> </observationRange> </referenceRange> </ observation> </component> <component> <observation moodCode= "EVN" classCode="OBS"> <templateId root="10.29.840.1.449697.10.20.22.4.2 " /> <id nullFlavor="NA" /> <code codeSystem="local" code="CL " displayName="Chloride" /> <statusCode code="completed" /> < effectiveTime value="792815905748" /> <value unit="mEq/L" xsi:type="PQ " value="99" /> <referenceRange> <observationRange> <text>99-109</text> </observationRange> </ referenceRange> </observation> </component> <component> <observation moodCode="EVN" classCode="OBS"> <templateId root= "840.1.775269.10.20.22.4.2" /> <id nullFlavor="NA" /> < code codeSystem="local" code="CO2" displayName="CO2" /> <statusCode code="completed" /> <effectiveTime value="520602271753" /> < value unit="mEq/L" xsi:type="PQ" value="20" /> <interpretationCode codeSystem="local" code="*" /> <referenceRange> < observationRange> <text>22-32</text> </observationRange > </referenceRange> </observation> </component> < component> <observation moodCode="EVN" classCode="OBS"> < templateId root="840.1.362318.10.22.4.2" /> <id nullFlavor="NA " /> <code codeSystem="local" code="CREAT" displayName="Creatinine" /> <statusCode code="completed" /> <effectiveTime value= "774520116202" /> <value unit="mg/dL" xsi:type="PQ" value="1.71" /> <interpretationCode codeSystem="local" code="*" /> < referenceRange> <observationRange> <text>0.64-1.27</text > </observationRange> </referenceRange> </observation > </component> <component> <observation moodCode="EVN" classCode="OBS"> <templateId root="840.1.376665.10.20.22.4.2" /> <id nullFlavor="NA" /> <code codeSystem="local" code="GLU" displayName="Glucose" /> <statusCode code="completed" /> < effectiveTime value="003244831490" /> <value unit="mg/dL" xsi:type="PQ " value="145" /> <interpretationCode codeSystem="local" code="*" /> <referenceRange> <observationRange> <text>70-100< /text> </observationRange> </referenceRange> </ observation> </component> <component> <observation moodCode= "EVN" classCode="OBS"> <templateId root="16.840.1.052002.10.20.22.4.2 " /> <id nullFlavor="NA" /> <code codeSystem="local" code="K" displayName="Potassium" /> <statusCode code="completed" /> < effectiveTime value="799357802232" /> <value unit="mEq/L" xsi:type="PQ " value="5.8" /> <interpretationCode codeSystem="local" code="*" /> <referenceRange> <observationRange> <text>3.6-5.1 </text> </observationRange> </referenceRange> </ observation> </component> <component> <observation moodCode= "EVN" classCode="OBS"> <templateId root="16.840.1.920168.10..22.4.2 " /> <id nullFlavor="NA" /> <code codeSystem="local" code="NA " displayName="Sodium" /> <statusCode code="completed" /> < effectiveTime value="918056457165" /> <value unit="mEq/L" xsi:type="PQ " value="127" /> <interpretationCode codeSystem="local" code="*" /> <referenceRange> <observationRange> <text>136-144 </text> </observationRange> </referenceRange> </ observation> </component> </organizer> </entry> <entry> <organizer moodCode="EVN" classCode="BATTERY"> <templateId root= "16.840.1.073954.10.20.22.4.1" /> <id nullFlavor="NA" /> <code codeSystem="local" code="GFR" displayName="eGFR" /> <statusCode code= "completed" /> <component> <observation moodCode="EVN" classCode= "OBS"> <templateId root="10.29.840.1.795157.10..22.4.2" /> < id nullFlavor="NA" /> <code codeSystem="local" code="GFR" displayName= "eGFR" /> <statusCode code="completed" /> <effectiveTime value ="064139771614" /> <value unit="mL/min" xsi:type="PQ" value="43" /> <interpretationCode codeSystem="local" code="*" /> < referenceRange> <observationRange> <text>>60</text> </observationRange> </referenceRange> </observation> </component> </organizer> </entry> <entry> <organizer moodCode= "EVN" classCode="BATTERY"> <templateId root="10.29.840.1.008287.10...4.1 " /> <id nullFlavor="NA" /> <code codeSystem="local" code="ULYTR" displayName="Urine Electrolytes, Random" /> <statusCode code="completed" / > <component> <observation moodCode="EVN" classCode="OBS"> <templateId root="10.29.840.1.472042.10..22.4.2" /> <id nullFlavor="NA " /> <code codeSystem="local" code="UCLR" displayName="Chloride Random Urine" /> <statusCode code="completed" /> <effectiveTime value ="698959342618" /> <value unit="mEq/L" xsi:type="PQ" value="37" /> <referenceRange> <observationRange> <text /> </observationRange> </referenceRange> </observation> </component> <component> <observation moodCode="EVN" classCode= "OBS"> <templateId root="10.29.840.1.809692.07.02.22.4.2" /> < id nullFlavor="NA" /> <code codeSystem="local" code="UKR" displayName= "Potassium Random Urine" /> <statusCode code="completed" /> < effectiveTime value="986897812034" /> <value unit="mEq/L" xsi:type="PQ " value="57" /> <referenceRange> <observationRange> <text /> </observationRange> </referenceRange> </observation> </component> <component> <observation moodCode= "EVN" classCode="OBS"> <templateId root="840.1.583624.07.02.22.4.2 " /> <id nullFlavor="NA" /> <code codeSystem="local" code= "UNAR" displayName="Sodium Random Urine" /> <statusCode code="completed " /> <effectiveTime value="043682197226" /> <value unit="mEq/L " xsi:type="PQ" value="61" /> <referenceRange> < observationRange> <text /> </observationRange> </referenceRange> </observation> </component> </organizer> </ entry> <entry> <organizer moodCode="EVN" classCode="BATTERY"> < templateId root="10.29.840.1.084415.22.4.1" /> <id nullFlavor="NA" /> <code codeSystem="local" code="UCRER" displayName="Creatinine Random Urine " /> <statusCode code="completed" /> <component> <observation moodCode="EVN" classCode="OBS"> <templateId root= "10.29.840.1.305828.07.02.22.4.2" /> <id nullFlavor="NA" /> < code codeSystem="local" code="UCRER" displayName="Creatinine Random Urine" /> <statusCode code="completed" /> <effectiveTime value= "326057360171" /> <value unit="mg/dL" xsi:type="PQ" value="64" /> <referenceRange> <observationRange> <text /> </observationRange> </referenceRange> </observation> </component> </organizer> </entry> <entry> <organizer moodCode="EVN" classCode="BATTERY"> <templateId root="216.840.1.139074.10.4.1" /> <id nullFlavor="NA" /> <code codeSystem="local" code="UA" displayName= "Urinalysis with reflex microscopic" /> <statusCode code="completed" /> <component> <observation moodCode="EVN" classCode="OBS"> < templateId root="16.840.1.923678.10..4.2" /> <id nullFlavor="NA " /> <code codeSystem="local" code="UAPP" displayName="Appearance" /> <statusCode code="completed" /> <effectiveTime value= "592793994537" /> <value unit="NA" xsi:type="PQ" value="Cloudy" /> <interpretationCode codeSystem="local" code="*" /> < referenceRange> <observationRange> <text /> < /observationRange> </referenceRange> </observation> </ component> <component> <observation moodCode="EVN" classCode="OBS"> <templateId root="10.29.840.1.511233.10.4.2" /> <id nullFlavor="NA" /> <code codeSystem="local" code="UBIL" displayName= "Bilirubin" /> <statusCode code="completed" /> <effectiveTime value="444110119972" /> <value unit="NA" xsi:type="PQ" value="Negative " /> <referenceRange> <observationRange> <text> Negative</text> </observationRange> </referenceRange> </observation> </component> <component> <observation moodCode ="EVN" classCode="OBS"> <templateId root= "10.29.840.1.258690.07.02.22.4.2" /> <id nullFlavor="NA" /> < code codeSystem="local" code="UBLD" displayName="Blood" /> <statusCode code="completed" /> <effectiveTime value="" /> < value unit="NA" xsi:type="PQ" value="Negative" /> <referenceRange> <observationRange> <text>Negative</text> </ observationRange> </referenceRange> </observation> </ component> <component> <observation moodCode="EVN" classCode="OBS"> <templateId root="10.29.840.1.191849.07.02.22.4.2" /> <id nullFlavor="NA" /> <code codeSystem="local" code="UCOLR" displayName= "Color" /> <statusCode code="completed" /> <effectiveTime value="672263445373" /> <value unit="NA" xsi:type="PQ" value="Yellow" / > <referenceRange> <observationRange> <text /> </observationRange> </referenceRange> </observation > </component> <component> <observation moodCode="EVN" classCode="OBS"> <templateId root="10.29.840.1.386449.07.02.22.4.2" /> <id nullFlavor="NA" /> <code codeSystem="local" code="UGLU" displayName="Glucose, Urine" /> <statusCode code="completed" /> <effectiveTime value="044537758385" /> <value unit="" xsi:type="PQ" value="Negative" /> <referenceRange> <observationRange> <text>Negative</text> </observationRange> </ referenceRange> </observation> </component> <component> <observation moodCode="EVN" classCode="OBS"> <templateId root= "216.840.1.003305.10..22.4.2" /> <id nullFlavor="NA" /> < code codeSystem="local" code="UKET" displayName="Ketones" /> < statusCode code="completed" /> <effectiveTime value="" /> <value unit="" xsi:type="PQ" value="Negative" /> < referenceRange> <observationRange> <text>Negative</text > </observationRange> </referenceRange> </observation > </component> <component> <observation moodCode="EVN" classCode="OBS"> <templateId root="16.840.1.905190.10..22.4.2" /> <id nullFlavor="NA" /> <code codeSystem="local" code="ULEU" displayName="Leukocyte Esterase" /> <statusCode code="completed" /> <effectiveTime value="495215410145" /> <value unit="NA" xsi:type ="PQ" value="Pos 1+" /> <interpretationCode codeSystem="local" code="* " /> <referenceRange> <observationRange> <text> Negative</text> </observationRange> </referenceRange> </observation> </component> <component> <observation moodCode ="EVN" classCode="OBS"> <templateId root= "16.840.1.548510.07.02.22.4.2" /> <id nullFlavor="NA" /> < code codeSystem="local" code="UNIT" displayName="Nitrites" /> < statusCode code="completed" /> <effectiveTime value="844457151469" /> <value unit="NA" xsi:type="PQ" value="Negative" /> < referenceRange> <observationRange> <text>Negative</text > </observationRange> </referenceRange> </observation > </component> <component> <observation moodCode="EVN" classCode="OBS"> <templateId root="216.840.1.305515.07.02.22.4.2" /> <id nullFlavor="NA" /> <code codeSystem="local" code="UPH" displayName="pH" /> <statusCode code="completed" /> < effectiveTime value="" /> <value unit="NA" xsi:type="PQ" value="5.0" /> <referenceRange> <observationRange> <text>5.0-8.0</text> </observationRange> </ referenceRange> </observation> </component> <component> <observation moodCode="EVN" classCode="OBS"> <templateId root= "16.840.1.160404.07.02.22.4.2" /> <id nullFlavor="NA" /> < code codeSystem="local" code="UPRO" displayName="Protein" /> < statusCode code="completed" /> <effectiveTime value="341284306733" /> <value unit="NA" xsi:type="PQ" value="Negative" /> < referenceRange> <observationRange> <text>Negative</text > </observationRange> </referenceRange> </observation > </component> <component> <observation moodCode="EVN" classCode="OBS"> <templateId root="2.16.840.1.890337.10..22.4.2" /> <id nullFlavor="NA" /> <code codeSystem="local" code="USPG" displayName="Specific Casmalia" /> <statusCode code="completed" /> <effectiveTime value="401815323311" /> <value unit="NA" xsi:type= "PQ" value="1.020" /> <referenceRange> <observationRange> <text>1.003-1.030</text> </observationRange> </ referenceRange> </observation> </component> <component> <observation moodCode="EVN" classCode="OBS"> <templateId root= "2.16.840.1.247645.10..4.2" /> <id nullFlavor="NA" /> < code codeSystem="local" code="UTYP" displayName="UA Collection type" /> <statusCode code="completed" /> <effectiveTime value="736320963970" / > <value unit="NA" xsi:type="PQ" value="Clean Catch" /> < referenceRange> <observationRange> <text /> < /observationRange> </referenceRange> </observation> </ component> <component> <observation moodCode="EVN" classCode="OBS"> <templateId root="216.840.1.046636.10.22.4.2" /> <id nullFlavor="NA" /> <code codeSystem="local" code="UURO" displayName= "Urobilinogen" /> <statusCode code="completed" /> < effectiveTime value="242498210056" /> <value unit="mg/dL" xsi:type="PQ " value="Negative" /> <referenceRange> <observationRange> <text><1.0</text> </observationRange> </ referenceRange> </observation> </component> </organizer> </entry > <entry> <organizer moodCode="EVN" classCode="BATTERY"> <templateId root="10.29.840.1.297354.10.4.1" /> <id nullFlavor="NA" /> <code codeSystem="local" code="UMIC" displayName="Urine Microscopic" /> < statusCode code="completed" /> <component> <observation moodCode= "EVN" classCode="OBS"> <templateId root="840.1.798612.07.02.22.4.2 " /> <id nullFlavor="NA" /> <code codeSystem="local" code= "UBAC" displayName="Bacteria" /> <statusCode code="completed" /> <effectiveTime value="109687379917" /> <value unit="NA" xsi:type= "PQ" value="Rare" /> <referenceRange> <observationRange> <text /> </observationRange> </referenceRange> </observation> </component> <component> <observation moodCode="EVN" classCode="OBS"> <templateId root= "10.29.840.1.065306.07.02.22.4.2" /> <id nullFlavor="NA" /> < code codeSystem="local" code="UCRY1" displayName="Crystals" /> < statusCode code="completed" /> <effectiveTime value="204276182131" /> <value unit="NA" xsi:type="PQ" value="Uric Acid" /> < referenceRange> <observationRange> <text /> < /observationRange> </referenceRange> </observation> </ component> <component> <observation moodCode="EVN" classCode="OBS"> <templateId root="10.29.840.1.343792.07.02.22.4.2" /> <id nullFlavor="NA" /> <code codeSystem="local" code="UEPI" displayName= "Epithelial Cells" /> <statusCode code="completed" /> < effectiveTime value="352079238642" /> <value unit="/HPF" xsi:type="PQ" value="0" /> <referenceRange> <observationRange> <text /> </observationRange> </referenceRange> </ observation> </component> <component> <observation moodCode= "EVN" classCode="OBS"> <templateId root="216.840.1.223483.10..4.2 " /> <id nullFlavor="NA" /> <code codeSystem="local" code= "UHCST" displayName="Hyaline Casts" /> <statusCode code="completed" /> <effectiveTime value="249343998963" /> <value unit="/LPF" xsi :type="PQ" value="1" /> <referenceRange> <observationRange> <text>0-3</text> </observationRange> </ referenceRange> </observation> </component> <component> <observation moodCode="EVN" classCode="OBS"> <templateId root= "10.29.840.1.467302.10...4.2" /> <id nullFlavor="NA" /> < code codeSystem="local" code="URBC" displayName="RBC, Urine" /> < statusCode code="completed" /> <effectiveTime value="034079665259" /> <value unit="/HPF" xsi:type="PQ" value="None seen" /> < referenceRange> <observationRange> <text>0-2</text> </observationRange> </referenceRange> </observation> </component> <component> <observation moodCode="EVN" classCode= "OBS"> <templateId root="10.29.840.1.838065.07.02.22.4.2" /> < id nullFlavor="NA" /> <code codeSystem="local" code="UMUC" displayName= "Urine Mucus" /> <statusCode code="completed" /> < effectiveTime value="" /> <value unit="NA" xsi:type="PQ" value="Present" /> <referenceRange> <observationRange> <text /> </observationRange> </referenceRange> </observation> </component> <component> <observation moodCode="EVN" classCode="OBS"> <templateId root= "840.1.924767.07.02.224.2" /> <id nullFlavor="NA" /> < code codeSystem="local" code="UWBC" displayName="WBC, Urine" /> < statusCode code="completed" /> <effectiveTime value="" /> <value unit="/HPF" xsi:type="PQ" value="5" /> < interpretationCode codeSystem="local" code="*" /> <referenceRange> <observationRange> <text>0-4</text> </ observationRange> </referenceRange> </observation> </ component> </organizer> </entry> <entry> <organizer moodCode="EVN" classCode="BATTERY"> <templateId root="840.1.607427.07.02.22.4.1" /> <id nullFlavor="NA" /> <code codeSystem="local" code="K" displayName= "Potassium" /> <statusCode code="completed" /> <component> < observation moodCode="EVN" classCode="OBS"> <templateId root= "840.1.911000.07.02.22.4.2" /> <id nullFlavor="NA" /> < code codeSystem="local" code="K" displayName="Potassium" /> < statusCode code="completed" /> <effectiveTime value="721869798261" /> <value unit="mEq/L" xsi:type="PQ" value="5.6" /> < interpretationCode codeSystem="local" code="*" /> <referenceRange> <observationRange> <text>3.6-5.1</text> </ observationRange> </referenceRange> </observation> </ component> </organizer> </entry> <entry> <organizer moodCode="EVN" classCode="BATTERY"> <templateId root="16.840.1.546089.10...4.1" /> <id nullFlavor="NA" /> <code codeSystem="local" code="GLUN" displayName="Glucose NPT" /> <statusCode code="completed" /> < component> <observation moodCode="EVN" classCode="OBS"> < templateId root="16.840.1.340325.10..22.4.2" /> <id nullFlavor="NA " /> <code codeSystem="local" code="GLUN" displayName="Glucose NPT" / > <statusCode code="completed" /> <effectiveTime value= "[id number]" /> <value unit="mg/dL" xsi:type="PQ" value="98" /> <referenceRange> <observationRange> <text>70-100</ text> </observationRange> </referenceRange> </ observation> </component> </organizer> </entry> <entry> <organizer moodCode="EVN" classCode="BATTERY"> <templateId root= "10.29.840.1.281583.10..22.4.1" /> <id nullFlavor="NA" /> <code codeSystem="local" code="CBCND" displayName="CBC With Platelet No Differential" /> <statusCode code="completed" /> <component> <observation moodCode="EVN" classCode="OBS"> <templateId root= "10.29.840.1.040292.10.22.4.2" /> <id nullFlavor="NA" /> < code codeSystem="local" code="HCT" displayName="HCT" /> <statusCode code="completed" /> <effectiveTime value="" /> < value unit="%" xsi:type="PQ" value="39.3" /> <interpretationCode codeSystem="local" code="*" /> <referenceRange> < observationRange> <text>42.0-52.0</text> </ observationRange> </referenceRange> </observation> </ component> <component> <observation moodCode="EVN" classCode="OBS"> <templateId root="10.29.840.1.642863.10.4.2" /> <id nullFlavor="NA" /> <code codeSystem="local" code="HGB" displayName="HGB " /> <statusCode code="completed" /> <effectiveTime value= "" /> <value unit="g/dL" xsi:type="PQ" value="13.5" /> <interpretationCode codeSystem="local" code="*" /> < referenceRange> <observationRange> <text>14.0-18.0</text > </observationRange> </referenceRange> </observation > </component> <component> <observation moodCode="EVN" classCode="OBS"> <templateId root="10.29.840.1.161611.10.20.22.4.2" /> <id nullFlavor="NA" /> <code codeSystem="local" code="MCH" displayName="MCH" /> <statusCode code="completed" /> < effectiveTime value="" /> <value unit="pg" xsi:type="PQ" value="30.7" /> <referenceRange> <observationRange> <text>27.0-32.0</text> </observationRange> </ referenceRange> </observation> </component> <component> <observation moodCode="EVN" classCode="OBS"> <templateId root= "216.840.1.120599.10.22.4.2" /> <id nullFlavor="NA" /> < code codeSystem="local" code="MCHC" displayName="MCHC" /> <statusCode code="completed" /> <effectiveTime value="" /> < value unit="g/dL" xsi:type="PQ" value="34.4" /> <referenceRange> <observationRange> <text>32.0-36.0</text> </ observationRange> </referenceRange> </observation> </ component> <component> <observation moodCode="EVN" classCode="OBS"> <templateId root="216.840.1.719656.10...4.2" /> <id nullFlavor="NA" /> <code codeSystem="local" code="MCV" displayName="MCV " /> <statusCode code="completed" /> <effectiveTime value= "" /> <value unit="fL" xsi:type="PQ" value="89.3" /> <referenceRange> <observationRange> <text>82.0-99.0< /text> </observationRange> </referenceRange> </ observation> </component> <component> <observation moodCode= "EVN" classCode="OBS"> <templateId root="216.840.1.425092.07.02.22.4.2 " /> <id nullFlavor="NA" /> <code codeSystem="local" code="MPV " displayName="MPV" /> <statusCode code="completed" /> < effectiveTime value="" /> <value unit="fL" xsi:type="PQ" value="10.4" /> <referenceRange> <observationRange> <text>9.4-12.3</text> </observationRange> </ referenceRange> </observation> </component> <component> <observation moodCode="EVN" classCode="OBS"> <templateId root= "16.840.1.544420.07.02.22.4.2" /> <id nullFlavor="NA" /> < code codeSystem="local" code="PLT" displayName="Platelet Count" /> < statusCode code="completed" /> <effectiveTime value="" /> <value unit="K/uL" xsi:type="PQ" value="211" /> < referenceRange> <observationRange> <text>150-400</text> </observationRange> </referenceRange> </observation > </component> <component> <observation moodCode="EVN" classCode="OBS"> <templateId root="16.840.1.244856.07.02.22.4.2" /> <id nullFlavor="NA" /> <code codeSystem="local" code="RBC" displayName="RBC" /> <statusCode code="completed" /> < effectiveTime value="" /> <value unit="10*6/uL" xsi:type= "PQ" value="4.40" /> <interpretationCode codeSystem="local" code="*" / > <referenceRange> <observationRange> <text> 4.60-6.20</text> </observationRange> </referenceRange> </observation> </component> <component> <observation moodCode="EVN" classCode="OBS"> <templateId root= "216.840.1.009773.10.22.4.2" /> <id nullFlavor="NA" /> < code codeSystem="local" code="RDW" displayName="RDW" /> <statusCode code="completed" /> <effectiveTime value="774278329629" /> < value unit="%" xsi:type="PQ" value="13.6" /> <referenceRange> <observationRange> <text>11.5-14.5</text> </ observationRange> </referenceRange> </observation> </ component> <component> <observation moodCode="EVN" classCode="OBS"> <templateId root="10.29.840.1.813599.07.02.22.4.2" /> <id nullFlavor="NA" /> <code codeSystem="local" code="WBCIR" displayName= "WBC" /> <statusCode code="completed" /> <effectiveTime value= "614717535074" /> <value unit="K/uL" xsi:type="PQ" value="15.6" /> <interpretationCode codeSystem="local" code="*" /> < referenceRange> <observationRange> <text>4.8-10.8</text > </observationRange> </referenceRange> </observation > </component> </organizer> </entry> <entry> <organizer moodCode= "EVN" classCode="BATTERY"> <templateId root="216.840.1.137398.10.22.4.1 " /> <id nullFlavor="NA" /> <code codeSystem="local" code="RENAL" displayName="Renal Function Panel" /> <statusCode code="completed" /> <component> <observation moodCode="EVN" classCode="OBS"> < templateId root="16.840.1.366585.07.02.22.4.2" /> <id nullFlavor="NA " /> <code codeSystem="local" code="ALB" displayName="Albumin" /> <statusCode code="completed" /> <effectiveTime value=" " /> <value unit="g/dL" xsi:type="PQ" value="3.5" /> < referenceRange> <observationRange> <text>3.5-4.8</text> </observationRange> </referenceRange> </observation > </component> <component> <observation moodCode="EVN" classCode="OBS"> <templateId root="10.29.840.1.238407.07.02.22.4.2" /> <id nullFlavor="NA" /> <code codeSystem="local" code="AGAP" displayName="Anion Gap" /> <statusCode code="completed" /> < effectiveTime value="" /> <value unit="mEq/L" xsi:type="PQ " value="5" /> <referenceRange> <observationRange> <text>3-20</text> </observationRange> </referenceRange > </observation> </component> <component> <observation moodCode="EVN" classCode="OBS"> <templateId root= "10.29.840.1.440086....4.2" /> <id nullFlavor="NA" /> < code codeSystem="local" code="BUN" displayName="BUN" /> <statusCode code="completed" /> <effectiveTime value="" /> < value unit="mg/dL" xsi:type="PQ" value="57" /> <interpretationCode codeSystem="local" code="*" /> <referenceRange> < observationRange> <text>4-20</text> </observationRange> </referenceRange> </observation> </component> < component> <observation moodCode="EVN" classCode="OBS"> < templateId root="10.29.840.1.614202.10.20.22.4.2" /> <id nullFlavor="NA " /> <code codeSystem="local" code="CA" displayName="Calcium" /> <statusCode code="completed" /> <effectiveTime value=" " /> <value unit="mg/dL" xsi:type="PQ" value="9.1" /> < referenceRange> <observationRange> <text>8.6-10.0</text > </observationRange> </referenceRange> </observation > </component> <component> <observation moodCode="EVN" classCode="OBS"> <templateId root="840.1.724794.22.4.2" /> <id nullFlavor="NA" /> <code codeSystem="local" code="CL" displayName="Chloride" /> <statusCode code="completed" /> < effectiveTime value="" /> <value unit="mEq/L" xsi:type="PQ " value="100" /> <referenceRange> <observationRange> <text>99-109</text> </observationRange> </ referenceRange> </observation> </component> <component> <observation moodCode="EVN" classCode="OBS"> <templateId root= "10.29.840.1.492285.10.2022.4.2" /> <id nullFlavor="NA" /> < code codeSystem="local" code="CO2" displayName="CO2" /> <statusCode code="completed" /> <effectiveTime value="338180290304" /> < value unit="mEq/L" xsi:type="PQ" value="23" /> <referenceRange> <observationRange> <text>22-32</text> </ observationRange> </referenceRange> </observation> </ component> <component> <observation moodCode="EVN" classCode="OBS"> <templateId root="10.29.840.1.962997.10.4.2" /> <id nullFlavor="NA" /> <code codeSystem="local" code="CREAT" displayName= "Creatinine" /> <statusCode code="completed" /> < effectiveTime value="520248251358" /> <value unit="mg/dL" xsi:type="PQ " value="1.51" /> <interpretationCode codeSystem="local" code="*" /> <referenceRange> <observationRange> <text>0.64- 1.27</text> </observationRange> </referenceRange> </ observation> </component> <component> <observation moodCode= "EVN" classCode="OBS"> <templateId root="10.29.840.1.679332.10.4.2 " /> <id nullFlavor="NA" /> <code codeSystem="local" code="GLU " displayName="Glucose" /> <statusCode code="completed" /> < effectiveTime value="823013672071" /> <value unit="mg/dL" xsi:type="PQ " value="105" /> <interpretationCode codeSystem="local" code="*" /> <referenceRange> <observationRange> <text>70-100< /text> </observationRange> </referenceRange> </ observation> </component> <component> <observation moodCode= "EVN" classCode="OBS"> <templateId root="840.1.135889.10.20.22.4.2 " /> <id nullFlavor="NA" /> <code codeSystem="local" code= "PHOS" displayName="Phosphorus" /> <statusCode code="completed" /> <effectiveTime value="445950717985" /> <value unit="mg/dL" xsi: type="PQ" value="4.9" /> <interpretationCode codeSystem="local" code="* " /> <referenceRange> <observationRange> <text> 2.4-4.7</text> </observationRange> </referenceRange> </observation> </component> <component> <observation moodCode= "EVN" classCode="OBS"> <templateId root="840.1.399121..22.4.2 " /> <id nullFlavor="NA" /> <code codeSystem="local" code="K" displayName="Potassium" /> <statusCode code="completed" /> < effectiveTime value="721485511630" /> <value unit="mEq/L" xsi:type="PQ " value="5.9" /> <interpretationCode codeSystem="local" code="*" /> <referenceRange> <observationRange> <text>3.6-5.1 </text> </observationRange> </referenceRange> </ observation> </component> <component> <observation moodCode= "EVN" classCode="OBS"> <templateId root="840.1.158145.10.20.22.4.2 " /> <id nullFlavor="NA" /> <code codeSystem="local" code="NA " displayName="Sodium" /> <statusCode code="completed" /> < effectiveTime value="179707212321" /> <value unit="mEq/L" xsi:type="PQ " value="128" /> <interpretationCode codeSystem="local" code="*" /> <referenceRange> <observationRange> <text>136-144 </text> </observationRange> </referenceRange> </ observation> </component> </organizer> </entry> <entry> <organizer moodCode="EVN" classCode="BATTERY"> <templateId root= "16.840.1.775827.10..22.4.1" /> <id nullFlavor="NA" /> <code codeSystem="local" code="MG" displayName="Magnesium" /> <statusCode code= "completed" /> <component> <observation moodCode="EVN" classCode= "OBS"> <templateId root="10.29.840.1.239974...4.2" /> < id nullFlavor="NA" /> <code codeSystem="local" code="MG" displayName= "Magnesium" /> <statusCode code="completed" /> <effectiveTime value="675543052494" /> <value unit="mg/dL" xsi:type="PQ" value="1.9" / > <referenceRange> <observationRange> <text>1.8 -2.5</text> </observationRange> </referenceRange> </ observation> </component> </organizer> </entry> <entry> <organizer moodCode="EVN" classCode="BATTERY"> <templateId root= "10.29.840.1.007204.07.02.22.4.1" /> <id nullFlavor="NA" /> <code codeSystem="local" code="GFR" displayName="eGFR" /> <statusCode code= "completed" /> <component> <observation moodCode="EVN" classCode= "OBS"> <templateId root="10.29.840.1.658171.07.02..4.2" /> < id nullFlavor="NA" /> <code codeSystem="local" code="GFR" displayName= "eGFR" /> <statusCode code="completed" /> <effectiveTime value ="621230732889" /> <value unit="mL/min" xsi:type="PQ" value="49" /> <interpretationCode codeSystem="local" code="*" /> < referenceRange> <observationRange> <text>>60</text> </observationRange> </referenceRange> </observation> </component> </organizer> </entry> <entry> <organizer moodCode= "EVN" classCode="BATTERY"> <templateId root="16.840.1.445544.10...4.1 " /> <id nullFlavor="NA" /> <code codeSystem="local" code="BMP" displayName="Basic Metabolic Panel (BMP)" /> <statusCode code="completed" / > <component> <observation moodCode="EVN" classCode="OBS"> <templateId root="10.29.840.1.135052.10...4.2" /> <id nullFlavor="NA " /> <code codeSystem="local" code="AGAP" displayName="Anion Gap" /> <statusCode code="completed" /> <effectiveTime value= "701815537131" /> <value unit="mEq/L" xsi:type="PQ" value="10" /> <referenceRange> <observationRange> <text>3-20</ text> </observationRange> </referenceRange> </ observation> </component> <component> <observation moodCode= "EVN" classCode="OBS"> <templateId root="10.29.840.1.367199.10.4.2 " /> <id nullFlavor="NA" /> <code codeSystem="local" code="BUN " displayName="BUN" /> <statusCode code="completed" /> < effectiveTime value="070546698093" /> <value unit="mg/dL" xsi:type="PQ " value="54" /> <interpretationCode codeSystem="local" code="*" /> <referenceRange> <observationRange> <text>4-20</ text> </observationRange> </referenceRange> </ observation> </component> <component> <observation moodCode= "EVN" classCode="OBS"> <templateId root="10.29.840.1.163515.10..22.4.2 " /> <id nullFlavor="NA" /> <code codeSystem="local" code="CA " displayName="Calcium" /> <statusCode code="completed" /> < effectiveTime value="972020458659" /> <value unit="mg/dL" xsi:type="PQ " value="9.7" /> <referenceRange> <observationRange> <text>8.6-10.0</text> </observationRange> </ referenceRange> </observation> </component> <component> <observation moodCode="EVN" classCode="OBS"> <templateId root= "10.29.840.1.393767.10.20.22.4.2" /> <id nullFlavor="NA" /> < code codeSystem="local" code="CL" displayName="Chloride" /> < statusCode code="completed" /> <effectiveTime value="243743867105" /> <value unit="mEq/L" xsi:type="PQ" value="99" /> < referenceRange> <observationRange> <text>99-109</text> </observationRange> </referenceRange> </observation> </component> <component> <observation moodCode="EVN" classCode ="OBS"> <templateId root="16.840.1.590837.10.22.4.2" /> < id nullFlavor="NA" /> <code codeSystem="local" code="CO2" displayName= "CO2" /> <statusCode code="completed" /> <effectiveTime value= "" /> <value unit="mEq/L" xsi:type="PQ" value="22" /> <referenceRange> <observationRange> <text>22-32</ text> </observationRange> </referenceRange> </ observation> </component> <component> <observation moodCode= "EVN" classCode="OBS"> <templateId root="10.29.840.1.960816.07.02.22.4.2 " /> <id nullFlavor="NA" /> <code codeSystem="local" code= "CREAT" displayName="Creatinine" /> <statusCode code="completed" /> <effectiveTime value="" /> <value unit="mg/dL" xsi: type="PQ" value="1.49" /> <interpretationCode codeSystem="local" code= "*" /> <referenceRange> <observationRange> < text>0.64-1.27</text> </observationRange> </referenceRange> </observation> </component> <component> <observation moodCode="EVN" classCode="OBS"> <templateId root= "10.29.840.1.449653.1022.4.2" /> <id nullFlavor="NA" /> < code codeSystem="local" code="GLU" displayName="Glucose" /> < statusCode code="completed" /> <effectiveTime value="" /> <value unit="mg/dL" xsi:type="PQ" value="108" /> < interpretationCode codeSystem="local" code="*" /> <referenceRange> <observationRange> <text>70-100</text> </ observationRange> </referenceRange> </observation> </ component> <component> <observation moodCode="EVN" classCode="OBS"> <templateId root="16.840.1.038179.10.20.22.4.2" /> <id nullFlavor="NA" /> <code codeSystem="local" code="K" displayName= "Potassium" /> <statusCode code="completed" /> <effectiveTime value="958812856253" /> <value unit="mEq/L" xsi:type="PQ" value="5.6" / > <interpretationCode codeSystem="local" code="*" /> < referenceRange> <observationRange> <text>3.6-5.1</text> </observationRange> </referenceRange> </observation > </component> <component> <observation moodCode="EVN" classCode="OBS"> <templateId root="10.29.840.1.844407.10..22.4.2" /> <id nullFlavor="NA" /> <code codeSystem="local" code="NA" displayName="Sodium" /> <statusCode code="completed" /> < effectiveTime value="736681467124" /> <value unit="mEq/L" xsi:type="PQ " value="131" /> <interpretationCode codeSystem="local" code="*" /> <referenceRange> <observationRange> <text>136-144 </text> </observationRange> </referenceRange> </ observation> </component> </organizer> </entry> <entry> <organizer moodCode="EVN" classCode="BATTERY"> <templateId root= "16.840.1.573185.10.20.22.4.1" /> <id nullFlavor="NA" /> <code codeSystem="local" code="GFR" displayName="eGFR" /> <statusCode code= "completed" /> <component> <observation moodCode="EVN" classCode= "OBS"> <templateId root="840.1.521802.22.4.2" /> < id nullFlavor="NA" /> <code codeSystem="local" code="GFR" displayName= "eGFR" /> <statusCode code="completed" /> <effectiveTime value ="277505462145" /> <value unit="mL/min" xsi:type="PQ" value="50" /> <interpretationCode codeSystem="local" code="*" /> < referenceRange> <observationRange> <text>>60</text> </observationRange> </referenceRange> </observation> </component> </organizer> </entry> <entry> <organizer moodCode= "EVN" classCode="BATTERY"> <templateId root="840.1.485891.07.02.22.4.1 " /> <id nullFlavor="NA" /> <code codeSystem="local" code="K" displayName="Potassium" /> <statusCode code="completed" /> <component > <observation moodCode="EVN" classCode="OBS"> <templateId root= "840.1.040721.07.02.22.4.2" /> <id nullFlavor="NA" /> < code codeSystem="local" code="K" displayName="Potassium" /> < statusCode code="completed" /> <effectiveTime value="470309992374" /> <value unit="mEq/L" xsi:type="PQ" value="5.4" /> < interpretationCode codeSystem="local" code="*" /> <referenceRange> <observationRange> <text>3.6-5.1</text> </ observationRange> </referenceRange> </observation> </ component> </organizer> </entry> <entry> <organizer moodCode="EVN" classCode="BATTERY"> <templateId root="10.29.840.1.216079.10.4.1" /> <id nullFlavor="NA" /> <code codeSystem="local" code="LIPA" displayName="Lipase" /> <statusCode code="completed" /> <component> <observation moodCode="EVN" classCode="OBS"> <templateId root= "840.1.649017.07.02.22.4.2" /> <id nullFlavor="NA" /> < code codeSystem="local" code="LIPA" displayName="Lipase" /> < statusCode code="completed" /> <effectiveTime value="033048176629" /> <value unit="U/L" xsi:type="PQ" value="34" /> <referenceRange > <observationRange> <text>8-48</text> </ observationRange> </referenceRange> </observation> </ component> </organizer> </entry> <entry> <organizer moodCode="EVN" classCode="BATTERY"> <templateId root="840.1.821329.07.02.22.4.1" /> <id nullFlavor="NA" /> <code codeSystem="local" code="GFR" displayName ="eGFR" /> <statusCode code="completed" /> <component> < observation moodCode="EVN" classCode="OBS"> <templateId root= "10.29.840.1.911252.07.02.22.4.2" /> <id nullFlavor="NA" /> < code codeSystem="local" code="GFR" displayName="eGFR" /> <statusCode code="completed" /> <effectiveTime value="373685908735" /> < value unit="mL/min" xsi:type="PQ" value="59" /> <interpretationCode codeSystem="local" code="*" /> <referenceRange> < observationRange> <text>>60</text> </observationRange > </referenceRange> </observation> </component> </ organizer> </entry> <entry> <organizer moodCode="EVN" classCode="BATTERY"> <templateId root="16.840.1.074243.10.20.22.4.1" /> <id nullFlavor= "NA" /> <code codeSystem="local" code="CBCWD" displayName="CBC With Platelet and Differential" /> <statusCode code="completed" /> < component> <observation moodCode="EVN" classCode="OBS"> < templateId root="10.29.840.1.649944.10.20.22.4.2" /> <id nullFlavor="NA " /> <code codeSystem="local" code="HCT" displayName="HCT" /> <statusCode code="completed" /> <effectiveTime value="116711501303" /> <value unit="%" xsi:type="PQ" value="35.3" /> < interpretationCode codeSystem="local" code="*" /> <referenceRange> <observationRange> <text>42.0-52.0</text> </ observationRange> </referenceRange> </observation> </ component> <component> <observation moodCode="EVN" classCode="OBS"> <templateId root="10.29.840.1.451331.10.20.22.4.2" /> <id nullFlavor="NA" /> <code codeSystem="local" code="HGB" displayName="HGB " /> <statusCode code="completed" /> <effectiveTime value= "228325824151" /> <value unit="g/dL" xsi:type="PQ" value="11.9" /> <interpretationCode codeSystem="local" code="*" /> < referenceRange> <observationRange> <text>14.0-18.0</text > </observationRange> </referenceRange> </observation > </component> <component> <observation moodCode="EVN" classCode="OBS"> <templateId root="10.29.840.1.978974.10.20.22.4.2" /> <id nullFlavor="NA" /> <code codeSystem="local" code="MCH" displayName="MCH" /> <statusCode code="completed" /> < effectiveTime value="117238474315" /> <value unit="pg" xsi:type="PQ" value="30.6" /> <referenceRange> <observationRange> <text>27.0-32.0</text> </observationRange> </ referenceRange> </observation> </component> <component> <observation moodCode="EVN" classCode="OBS"> <templateId root= "10.29.840.1.713401.10.20.22.4.2" /> <id nullFlavor="NA" /> < code codeSystem="local" code="MCHC" displayName="MCHC" /> <statusCode code="completed" /> <effectiveTime value="308311231659" /> < value unit="g/dL" xsi:type="PQ" value="33.7" /> <referenceRange> <observationRange> <text>32.0-36.0</text> </ observationRange> </referenceRange> </observation> </ component> <component> <observation moodCode="EVN" classCode="OBS"> <templateId root="10.29.840.1.978498.10..22.4.2" /> <id nullFlavor="NA" /> <code codeSystem="local" code="MCV" displayName="MCV " /> <statusCode code="completed" /> <effectiveTime value= "271281306654" /> <value unit="fL" xsi:type="PQ" value="90.7" /> <referenceRange> <observationRange> <text>82.0-99.0< /text> </observationRange> </referenceRange> </ observation> </component> <component> <observation moodCode= "EVN" classCode="OBS"> <templateId root="216.840.1.777837.10..22.4.2 " /> <id nullFlavor="NA" /> <code codeSystem="local" code="MPV " displayName="MPV" /> <statusCode code="completed" /> < effectiveTime value="383469165651" /> <value unit="fL" xsi:type="PQ" value="11.4" /> <referenceRange> <observationRange> <text>9.4-12.3</text> </observationRange> </ referenceRange> </observation> </component> <component> <observation moodCode="EVN" classCode="OBS"> <templateId root= "16.840.1.083216.10.22.4.2" /> <id nullFlavor="NA" /> < code codeSystem="local" code="PLT" displayName="Platelet Count" /> < statusCode code="completed" /> <effectiveTime value="460495437580" /> <value unit="K/uL" xsi:type="PQ" value="180" /> < referenceRange> <observationRange> <text>150-400</text> </observationRange> </referenceRange> </observation > </component> <component> <observation moodCode="EVN" classCode="OBS"> <templateId root="216.840.1.069847.10.22.4.2" /> <id nullFlavor="NA" /> <code codeSystem="local" code="RBC" displayName="RBC" /> <statusCode code="completed" /> < effectiveTime value="815787128777" /> <value unit="10*6/uL" xsi:type= "PQ" value="3.89" /> <interpretationCode codeSystem="local" code="*" / > <referenceRange> <observationRange> <text> 4.60-6.20</text> </observationRange> </referenceRange> </observation> </component> <component> <observation moodCode="EVN" classCode="OBS"> <templateId root= "16.840.1.832736.07.02.224.2" /> <id nullFlavor="NA" /> < code codeSystem="local" code="RDW" displayName="RDW" /> <statusCode code="completed" /> <effectiveTime value="498860829344" /> < value unit="%" xsi:type="PQ" value="13.6" /> <referenceRange> <observationRange> <text>11.5-14.5</text> </ observationRange> </referenceRange> </observation> </ component> <component> <observation moodCode="EVN" classCode="OBS"> <templateId root="216.840.1.802296.2022.4.2" /> <id nullFlavor="NA" /> <code codeSystem="local" code="WBCIR" displayName= "WBC" /> <statusCode code="completed" /> <effectiveTime value= "768302918869" /> <value unit="K/uL" xsi:type="PQ" value="8.2" /> <referenceRange> <observationRange> <text>4.8-10.8< /text> </observationRange> </referenceRange> </ observation> </component> </organizer> </entry> <entry> <organizer moodCode="EVN" classCode="BATTERY"> <templateId root= "10.29.840.1.064181.10..4.1" /> <id nullFlavor="NA" /> <code codeSystem="local" code="TROP" displayName="Troponin" /> <statusCode code= "completed" /> <component> <observation moodCode="EVN" classCode= "OBS"> <templateId root="10.29.840.1.143122.10..4.2" /> < id nullFlavor="NA" /> <code codeSystem="local" code="TROP" displayName= "Troponin" /> <statusCode code="completed" /> <effectiveTime value="[id number]" /> <value unit="ng/mL" xsi:type="PQ" value="< 0.05" /> <referenceRange> <observationRange> < text><0.06</text> </observationRange> </referenceRange> </observation> </component> </organizer> </entry> <entry> < organizer moodCode="EVN" classCode="BATTERY"> <templateId root= "10.29.840.1.638731.10.22.4.1" /> <id nullFlavor="NA" /> <code codeSystem="local" code="UA" displayName="Urinalysis with reflex microscopic" / > <statusCode code="completed" /> <component> <observation moodCode="EVN" classCode="OBS"> <templateId root= "840.1.858564.07.02.22.4.2" /> <id nullFlavor="NA" /> < code codeSystem="local" code="UAPP" displayName="Appearance" /> < statusCode code="completed" /> <effectiveTime value="" /> <value unit="NA" xsi:type="PQ" value="Sl Cloudy" /> < referenceRange> <observationRange> <text /> < /observationRange> </referenceRange> </observation> </ component> <component> <observation moodCode="EVN" classCode="OBS"> <templateId root="16.840.1.611842.07.02.22.4.2" /> <id nullFlavor="NA" /> <code codeSystem="local" code="UBIL" displayName= "Bilirubin" /> <statusCode code="completed" /> <effectiveTime value="" /> <value unit="NA" xsi:type="PQ" value="Negative " /> <referenceRange> <observationRange> <text> Negative</text> </observationRange> </referenceRange> </observation> </component> <component> <observation moodCode ="EVN" classCode="OBS"> <templateId root= "216.840.1.768541.07.02.22.4.2" /> <id nullFlavor="NA" /> < code codeSystem="local" code="UBLD" displayName="Blood" /> <statusCode code="completed" /> <effectiveTime value="" /> < value unit="NA" xsi:type="PQ" value="Negative" /> <referenceRange> <observationRange> <text>Negative</text> </ observationRange> </referenceRange> </observation> </ component> <component> <observation moodCode="EVN" classCode="OBS"> <templateId root="216.840.1.043444.10.4.2" /> <id nullFlavor="NA" /> <code codeSystem="local" code="UCOLR" displayName= "Color" /> <statusCode code="completed" /> <effectiveTime value="" /> <value unit="NA" xsi:type="PQ" value="Yellow" / > <referenceRange> <observationRange> <text /> </observationRange> </referenceRange> </observation > </component> <component> <observation moodCode="EVN" classCode="OBS"> <templateId root="16.840.1.349634.07.02.22.4.2" /> <id nullFlavor="NA" /> <code codeSystem="local" code="UGLU" displayName="Glucose, Urine" /> <statusCode code="completed" /> <effectiveTime value="" /> <value unit="" xsi:type="PQ" value="Negative" /> <referenceRange> <observationRange> <text>Negative</text> </observationRange> </ referenceRange> </observation> </component> <component> <observation moodCode="EVN" classCode="OBS"> <templateId root= "10.29.840.1.405309.07.02.22.4.2" /> <id nullFlavor="NA" /> < code codeSystem="local" code="UKET" displayName="Ketones" /> < statusCode code="completed" /> <effectiveTime value="" /> <value unit="" xsi:type="PQ" value="Negative" /> < referenceRange> <observationRange> <text>Negative</text > </observationRange> </referenceRange> </observation > </component> <component> <observation moodCode="EVN" classCode="OBS"> <templateId root="16.840.1.219193.10.22.4.2" /> <id nullFlavor="NA" /> <code codeSystem="local" code="ULEU" displayName="Leukocyte Esterase" /> <statusCode code="completed" /> <effectiveTime value="" /> <value unit="NA" xsi:type ="PQ" value="Negative" /> <referenceRange> <observationRange > <text>Negative</text> </observationRange> </ referenceRange> </observation> </component> <component> <observation moodCode="EVN" classCode="OBS"> <templateId root= "16.840.1.329820.07.02.22.4.2" /> <id nullFlavor="NA" /> < code codeSystem="local" code="UNIT" displayName="Nitrites" /> < statusCode code="completed" /> <effectiveTime value="" /> <value unit="NA" xsi:type="PQ" value="Negative" /> < referenceRange> <observationRange> <text>Negative</text > </observationRange> </referenceRange> </observation > </component> <component> <observation moodCode="EVN" classCode="OBS"> <templateId root="10.29.840.1.370047.10.4.2" /> <id nullFlavor="NA" /> <code codeSystem="local" code="UPH" displayName="pH" /> <statusCode code="completed" /> < effectiveTime value="" /> <value unit="NA" xsi:type="PQ" value="5.0" /> <referenceRange> <observationRange> <text>5.0-8.0</text> </observationRange> </ referenceRange> </observation> </component> <component> <observation moodCode="EVN" classCode="OBS"> <templateId root= "16.840.1.133007.10.4.2" /> <id nullFlavor="NA" /> < code codeSystem="local" code="UPRO" displayName="Protein" /> < statusCode code="completed" /> <effectiveTime value="[id number]" /> <value unit="NA" xsi:type="PQ" value="Negative" /> < referenceRange> <observationRange> <text>Negative</text > </observationRange> </referenceRange> </observation > </component> <component> <observation moodCode="EVN" classCode="OBS"> <templateId root="16.840.1.833337.07.02.22.4.2" /> <id nullFlavor="NA" /> <code codeSystem="local" code="USPG" displayName="Specific Casmalia" /> <statusCode code="completed" /> <effectiveTime value="122269227514" /> <value unit="NA" xsi:type= "PQ" value="1.015" /> <referenceRange> <observationRange> <text>1.003-1.030</text> </observationRange> </ referenceRange> </observation> </component> <component> <observation moodCode="EVN" classCode="OBS"> <templateId root= "10.29.840.1.301114.10.4.2" /> <id nullFlavor="NA" /> < code codeSystem="local" code="UTYP" displayName="UA Collection type" /> <statusCode code="completed" /> <effectiveTime value="083268621293" / > <value unit="NA" xsi:type="PQ" value="Clean Catch" /> < referenceRange> <observationRange> <text /> < /observationRange> </referenceRange> </observation> </ component> <component> <observation moodCode="EVN" classCode="OBS"> <templateId root="16.840.1.148924.10.22.4.2" /> <id nullFlavor="NA" /> <code codeSystem="local" code="UURO" displayName= "Urobilinogen" /> <statusCode code="completed" /> < effectiveTime value="044755652510" /> <value unit="mg/dL" xsi:type="PQ " value="2.0" /> <interpretationCode codeSystem="local" code="*" /> <referenceRange> <observationRange> <text><1.0 </text> </observationRange> </referenceRange> </ observation> </component> </organizer> </entry> <entry> <organizer moodCode="EVN" classCode="BATTERY"> <templateId root= "16.840.1.793173.10..4.1" /> <id nullFlavor="NA" /> <code codeSystem="local" code="MG" displayName="Magnesium" /> <statusCode code= "completed" /> <component> <observation moodCode="EVN" classCode= "OBS"> <templateId root="10.29.840.1.389918.10.22.4.2" /> < id nullFlavor="NA" /> <code codeSystem="local" code="MG" displayName= "Magnesium" /> <statusCode code="completed" /> <effectiveTime value="781253746183" /> <value unit="mg/dL" xsi:type="PQ" value="1.9" / > <referenceRange> <observationRange> <text>1.8 -2.5</text> </observationRange> </referenceRange> </ observation> </component> </organizer> </entry> <entry> <organizer moodCode="EVN" classCode="BATTERY"> <templateId root= "216.840.1.348611.10..22.4.1" /> <id nullFlavor="NA" /> <code codeSystem="local" code="CMP" displayName="Comprehensive Metabolic Panel (CMP)" /> <statusCode code="completed" /> <component> <observation moodCode="EVN" classCode="OBS"> <templateId root= "216.840.1.247658.10...4.2" /> <id nullFlavor="NA" /> < code codeSystem="local" code="ALB" displayName="Albumin" /> < statusCode code="completed" /> <effectiveTime value="045735667556" /> <value unit="g/dL" xsi:type="PQ" value="3.2" /> < interpretationCode codeSystem="local" code="*" /> <referenceRange> <observationRange> <text>3.5-4.8</text> </ observationRange> </referenceRange> </observation> </ component> <component> <observation moodCode="EVN" classCode="OBS"> <templateId root="216.840.1.300038.10..4.2" /> <id nullFlavor="NA" /> <code codeSystem="local" code="ALP" displayName= "Alkaline Phosphatase" /> <statusCode code="completed" /> < effectiveTime value="363709873163" /> <value unit="U/L" xsi:type="PQ" value="78" /> <referenceRange> <observationRange> <text>26-104</text> </observationRange> </referenceRange > </observation> </component> <component> <observation moodCode="EVN" classCode="OBS"> <templateId root= "216.840.1.024021.10...4.2" /> <id nullFlavor="NA" /> < code codeSystem="local" code="ALT" displayName="ALT (SGPT)" /> < statusCode code="completed" /> <effectiveTime value="" /> <value unit="U/L" xsi:type="PQ" value="58" /> <referenceRange > <observationRange> <text>17-63</text> </ observationRange> </referenceRange> </observation> </ component> <component> <observation moodCode="EVN" classCode="OBS"> <templateId root="216.840.1.875823...4.2" /> <id nullFlavor="NA" /> <code codeSystem="local" code="AGAP" displayName= "Anion Gap" /> <statusCode code="completed" /> <effectiveTime value="" /> <value unit="mEq/L" xsi:type="PQ" value="5" /> <referenceRange> <observationRange> <text>3-20 </text> </observationRange> </referenceRange> </ observation> </component> <component> <observation moodCode= "EVN" classCode="OBS"> <templateId root="16.840.1.489182.10...4.2 " /> <id nullFlavor="NA" /> <code codeSystem="local" code="AST " displayName="AST (SGOT)" /> <statusCode code="completed" /> <effectiveTime value="" /> <value unit="U/L" xsi:type="PQ" value="40" /> <referenceRange> <observationRange> <text>15-41</text> </observationRange> </referenceRange > </observation> </component> <component> <observation moodCode="EVN" classCode="OBS"> <templateId root= "10.29.840.1.299966.10...4.2" /> <id nullFlavor="NA" /> < code codeSystem="local" code="BILIT" displayName="Bilirubin Total" /> < statusCode code="completed" /> <effectiveTime value="787807833650" /> <value unit="mg/dL" xsi:type="PQ" value="0.8" /> < referenceRange> <observationRange> <text>0.2-1.2</text> </observationRange> </referenceRange> </observation > </component> <component> <observation moodCode="EVN" classCode="OBS"> <templateId root="10.29.840.1.067299.10..4.2" /> <id nullFlavor="NA" /> <code codeSystem="local" code="BUN" displayName="BUN" /> <statusCode code="completed" /> < effectiveTime value="123433624758" /> <value unit="mg/dL" xsi:type="PQ " value="27" /> <interpretationCode codeSystem="local" code="*" /> <referenceRange> <observationRange> <text>4-20</ text> </observationRange> </referenceRange> </ observation> </component> <component> <observation moodCode= "EVN" classCode="OBS"> <templateId root="10.29.840.1.484457.10...4.2 " /> <id nullFlavor="NA" /> <code codeSystem="local" code="CA " displayName="Calcium" /> <statusCode code="completed" /> < effectiveTime value="812164623926" /> <value unit="mg/dL" xsi:type="PQ " value="8.2" /> <interpretationCode codeSystem="local" code="*" /> <referenceRange> <observationRange> <text>8.6- 10.0</text> </observationRange> </referenceRange> </ observation> </component> <component> <observation moodCode= "EVN" classCode="OBS"> <templateId root="10.29.840.1.221406.10.2022.4.2 " /> <id nullFlavor="NA" /> <code codeSystem="local" code="CL " displayName="Chloride" /> <statusCode code="completed" /> < effectiveTime value="125704536439" /> <value unit="mEq/L" xsi:type="PQ " value="107" /> <referenceRange> <observationRange> <text>99-109</text> </observationRange> </ referenceRange> </observation> </component> <component> <observation moodCode="EVN" classCode="OBS"> <templateId root= "10.29.840.1.339605.10.22.4.2" /> <id nullFlavor="NA" /> < code codeSystem="local" code="CO2" displayName="CO2" /> <statusCode code="completed" /> <effectiveTime value="946326259693" /> < value unit="mEq/L" xsi:type="PQ" value="22" /> <referenceRange> <observationRange> <text>22-32</text> </ observationRange> </referenceRange> </observation> </ component> <component> <observation moodCode="EVN" classCode="OBS"> <templateId root="10.29.840.1.360935.10.4.2" /> <id nullFlavor="NA" /> <code codeSystem="local" code="CREAT" displayName= "Creatinine" /> <statusCode code="completed" /> < effectiveTime value="" /> <value unit="mg/dL" xsi:type="PQ " value="0.93" /> <referenceRange> <observationRange> <text>0.64-1.27</text> </observationRange> </ referenceRange> </observation> </component> <component> <observation moodCode="EVN" classCode="OBS"> <templateId root= "2.16.840.1.913747.07.02.22.4.2" /> <id nullFlavor="NA" /> < code codeSystem="local" code="GLOB" displayName="Globulin" /> < statusCode code="completed" /> <effectiveTime value="" /> <value unit="g/dL" xsi:type="PQ" value="2.7" /> < referenceRange> <observationRange> <text>1.9-4.3</text> </observationRange> </referenceRange> </observation > </component> <component> <observation moodCode="EVN" classCode="OBS"> <templateId root="2.16.840.1.174693.07.02.22.4.2" /> <id nullFlavor="NA" /> <code codeSystem="local" code="GLU" displayName="Glucose" /> <statusCode code="completed" /> < effectiveTime value="" /> <value unit="mg/dL" xsi:type="PQ " value="116" /> <interpretationCode codeSystem="local" code="*" /> <referenceRange> <observationRange> <text>70-100< /text> </observationRange> </referenceRange> </ observation> </component> <component> <observation moodCode= "EVN" classCode="OBS"> <templateId root="10.29.840.1.779656.07.02.22.4.2 " /> <id nullFlavor="NA" /> <code codeSystem="local" code="K" displayName="Potassium" /> <statusCode code="completed" /> < effectiveTime value="" /> <value unit="mEq/L" xsi:type="PQ " value="4.0" /> <referenceRange> <observationRange> <text>3.6-5.1</text> </observationRange> </ referenceRange> </observation> </component> <component> <observation moodCode="EVN" classCode="OBS"> <templateId root= "10.29.840.1.206985.07.02.22.4.2" /> <id nullFlavor="NA" /> < code codeSystem="local" code="TP" displayName="Protein" /> <statusCode code="completed" /> <effectiveTime value="" /> < value unit="g/dL" xsi:type="PQ" value="5.9" /> <interpretationCode codeSystem="local" code="*" /> <referenceRange> < observationRange> <text>6.1-7.9</text> </ observationRange> </referenceRange> </observation> </ component> <component> <observation moodCode="EVN" classCode="OBS"> <templateId root="10.29.840.1.697593.07.02.22.4.2" /> <id nullFlavor="NA" /> <code codeSystem="local" code="NA" displayName= "Sodium" /> <statusCode code="completed" /> <effectiveTime value="" /> <value unit="mEq/L" xsi:type="PQ" value="134" / > <interpretationCode codeSystem="local" code="*" /> < referenceRange> <observationRange> <text>136-144</text> </observationRange> </referenceRange> </observation > </component> </organizer> </entry> <entry> <organizer moodCode= "EVN" classCode="BATTERY"> <templateId root="16.840.1.075793.07.02.22.4.1 " /> <id nullFlavor="NA" /> <code codeSystem="local" code="GFR" displayName="eGFR" /> <statusCode code="completed" /> <component> <observation moodCode="EVN" classCode="OBS"> <templateId root= "16.840.1.191460.07.02.22.4.2" /> <id nullFlavor="NA" /> < code codeSystem="local" code="GFR" displayName="eGFR" /> <statusCode code="completed" /> <effectiveTime value="676273316222" /> < value unit="mL/min" xsi:type="PQ" value=">60" /> <referenceRange> <observationRange> <text>>60</text> </ observationRange> </referenceRange> </observation> </ component> </organizer> </entry> <entry> <organizer moodCode="EVN" classCode="BATTERY"> <templateId root="10.29.840.1.927275.10.4.1" /> <id nullFlavor="NA" /> <code codeSystem="local" code="TROP" displayName="Troponin" /> <statusCode code="completed" /> <component> <observation moodCode="EVN" classCode="OBS"> <templateId root= "10.29.840.1.503233...22.4.2" /> <id nullFlavor="NA" /> < code codeSystem="local" code="TROP" displayName="Troponin" /> < statusCode code="completed" /> <effectiveTime value="448978047462" /> <value unit="ng/mL" xsi:type="PQ" value="<0.05" /> < referenceRange> <observationRange> <text><0.06</text > </observationRange> </referenceRange> </observation > </component> </organizer> </entry> <entry> <organizer moodCode= "EVN" classCode="BATTERY"> <templateId root="216.840.1.151628.10..22.4.1 " /> <id nullFlavor="NA" /> <code codeSystem="local" code="TROP" displayName="Troponin" /> <statusCode code="completed" /> <component> <observation moodCode="EVN" classCode="OBS"> <templateId root= "216.840.1.032410...22.4.2" /> <id nullFlavor="NA" /> < code codeSystem="local" code="TROP" displayName="Troponin" /> < statusCode code="completed" /> <effectiveTime value="886711180473" /> <value unit="ng/mL" xsi:type="PQ" value="<0.05" /> < referenceRange> <observationRange> <text><0.06</text > </observationRange> </referenceRange> </observation > </component> </organizer> </entry> <entry> <organizer moodCode= "EVN" classCode="BATTERY"> <templateId root="216.840.1.938650.10..4.1 " /> <id nullFlavor="NA" /> <code codeSystem="local" code="UDRGH" displayName="Urine Drug Screen" /> <statusCode code="completed" /> < component> <observation moodCode="EVN" classCode="OBS"> < templateId root="16.840.1.928250.10..4.2" /> <id nullFlavor="NA " /> <code codeSystem="local" code="UAMP1" displayName="Amph/Meth/ Ecstasy" /> <statusCode code="completed" /> <effectiveTime value="" /> <value unit="NA" xsi:type="PQ" value="Negative " /> <referenceRange> <observationRange> <text /> </observationRange> </referenceRange> </ observation> </component> <component> <observation moodCode= "EVN" classCode="OBS"> <templateId root="10.29.840.1.767866.07.02.22.4.2 " /> <id nullFlavor="NA" /> <code codeSystem="local" code= "UBAR1" displayName="Barbiturates" /> <statusCode code="completed" /> <effectiveTime value="" /> <value unit="NA" xsi: type="PQ" value="Negative" /> <referenceRange> < observationRange> <text /> </observationRange> </referenceRange> </observation> </component> <component> <observation moodCode="EVN" classCode="OBS"> <templateId root= "10.29.840.1.619075.07.02.22.4.2" /> <id nullFlavor="NA" /> < code codeSystem="local" code="UBEN1" displayName="Benzodiazepine" /> < statusCode code="completed" /> <effectiveTime value="" /> <value unit="NA" xsi:type="PQ" value="Negative" /> < referenceRange> <observationRange> <text /> < /observationRange> </referenceRange> </observation> </ component> <component> <observation moodCode="EVN" classCode="OBS"> <templateId root="10.29.840.1.920396.10...4.2" /> <id nullFlavor="NA" /> <code codeSystem="local" code="UCAN1" displayName= "Cannabinoid" /> <statusCode code="completed" /> < effectiveTime value="034768606759" /> <value unit="NA" xsi:type="PQ" value="Positive" /> <interpretationCode codeSystem="local" code="*" /> <referenceRange> <observationRange> <text /> </observationRange> </referenceRange> </observation> </component> <component> <observation moodCode="EVN" classCode ="OBS"> <templateId root="840.1.979882.07.02.22.4.2" /> < id nullFlavor="NA" /> <code codeSystem="local" code="UCOC1" displayName ="Cocaine" /> <statusCode code="completed" /> <effectiveTime value="509018073357" /> <value unit="NA" xsi:type="PQ" value="Negative " /> <referenceRange> <observationRange> <text /> </observationRange> </referenceRange> </ observation> </component> <component> <observation moodCode= "EVN" classCode="OBS"> <templateId root="10.29.840.1.175335.07.02.22.4.2 " /> <id nullFlavor="NA" /> <code codeSystem="local" code= "UMTD1" displayName="EDDP (Methadone met.)" /> <statusCode code= "completed" /> <effectiveTime value="" /> <value unit="NA" xsi:type="PQ" value="Negative" /> <referenceRange> <observationRange> <text /> </observationRange> </referenceRange> </observation> </component> <component> <observation moodCode="EVN" classCode="OBS"> <templateId root= "216.840.1.170215.10..4.2" /> <id nullFlavor="NA" /> < code codeSystem="local" code="UOPI1" displayName="Opiate" /> < statusCode code="completed" /> <effectiveTime value="" /> <value unit="NA" xsi:type="PQ" value="Negative" /> < referenceRange> <observationRange> <text /> < /observationRange> </referenceRange> </observation> </ component> <component> <observation moodCode="EVN" classCode="OBS"> <templateId root="216.840.1.028970.10..4.2" /> <id nullFlavor="NA" /> <code codeSystem="local" code="UPCP1" displayName= "Phencyclidine (PCP)" /> <statusCode code="completed" /> < effectiveTime value="" /> <value unit="NA" xsi:type="PQ" value="Negative" /> <referenceRange> <observationRange> <text /> </observationRange> </referenceRange> </observation> </component> </organizer> </entry> <entry> < organizer moodCode="EVN" classCode="BATTERY"> <templateId root= "216.840.1.480406.10..22.4.1" /> <id nullFlavor="NA" /> <code codeSystem="local" code="CBCND" displayName="CBC With Platelet No Differential" /> <statusCode code="completed" /> <component> <observation moodCode="EVN" classCode="OBS"> <templateId root= "10.29.840.1.018614.10.20.22.4.2" /> <id nullFlavor="NA" /> < code codeSystem="local" code="HCT" displayName="HCT" /> <statusCode code="completed" /> <effectiveTime value="316733071626" /> < value unit="%" xsi:type="PQ" value="36.3" /> <interpretationCode codeSystem="local" code="*" /> <referenceRange> < observationRange> <text>42.0-52.0</text> </ observationRange> </referenceRange> </observation> </ component> <component> <observation moodCode="EVN" classCode="OBS"> <templateId root="840.1.537922.10..4.2" /> <id nullFlavor="NA" /> <code codeSystem="local" code="HGB" displayName="HGB " /> <statusCode code="completed" /> <effectiveTime value= "304838631144" /> <value unit="g/dL" xsi:type="PQ" value="12.3" /> <interpretationCode codeSystem="local" code="*" /> < referenceRange> <observationRange> <text>14.0-18.0</text > </observationRange> </referenceRange> </observation > </component> <component> <observation moodCode="EVN" classCode="OBS"> <templateId root="10.29.840.1.508528.10.20.22.4.2" /> <id nullFlavor="NA" /> <code codeSystem="local" code="MCH" displayName="MCH" /> <statusCode code="completed" /> < effectiveTime value="747550841355" /> <value unit="pg" xsi:type="PQ" value="30.5" /> <referenceRange> <observationRange> <text>27.0-32.0</text> </observationRange> </ referenceRange> </observation> </component> <component> <observation moodCode="EVN" classCode="OBS"> <templateId root= "10.29.840.1.753289.10.20.22.4.2" /> <id nullFlavor="NA" /> < code codeSystem="local" code="MCHC" displayName="MCHC" /> <statusCode code="completed" /> <effectiveTime value="545101671769" /> < value unit="g/dL" xsi:type="PQ" value="33.9" /> <referenceRange> <observationRange> <text>32.0-36.0</text> </ observationRange> </referenceRange> </observation> </ component> <component> <observation moodCode="EVN" classCode="OBS"> <templateId root="10.29.840.1.176330.10.20.22.4.2" /> <id nullFlavor="NA" /> <code codeSystem="local" code="MCV" displayName="MCV " /> <statusCode code="completed" /> <effectiveTime value= "188891039028" /> <value unit="fL" xsi:type="PQ" value="90.1" /> <referenceRange> <observationRange> <text>82.0-99.0< /text> </observationRange> </referenceRange> </ observation> </component> <component> <observation moodCode= "EVN" classCode="OBS"> <templateId root="840.1.357247.22.4.2 " /> <id nullFlavor="NA" /> <code codeSystem="local" code="MPV " displayName="MPV" /> <statusCode code="completed" /> < effectiveTime value="" /> <value unit="fL" xsi:type="PQ" value="10.4" /> <referenceRange> <observationRange> <text>9.4-12.3</text> </observationRange> </ referenceRange> </observation> </component> <component> <observation moodCode="EVN" classCode="OBS"> <templateId root= "10.29.840.1.616948.22.4.2" /> <id nullFlavor="NA" /> < code codeSystem="local" code="PLT" displayName="Platelet Count" /> < statusCode code="completed" /> <effectiveTime value="" /> <value unit="K/uL" xsi:type="PQ" value="177" /> < referenceRange> <observationRange> <text>150-400</text> </observationRange> </referenceRange> </observation > </component> <component> <observation moodCode="EVN" classCode="OBS"> <templateId root="10.29.840.1.004408.1022.4.2" /> <id nullFlavor="NA" /> <code codeSystem="local" code="RBC" displayName="RBC" /> <statusCode code="completed" /> < effectiveTime value="224992303481" /> <value unit="10*6/uL" xsi:type= "PQ" value="4.03" /> <interpretationCode codeSystem="local" code="*" / > <referenceRange> <observationRange> <text> 4.60-6.20</text> </observationRange> </referenceRange> </observation> </component> <component> <observation moodCode="EVN" classCode="OBS"> <templateId root= "2.16.840.1.598203.10..4.2" /> <id nullFlavor="NA" /> < code codeSystem="local" code="RDW" displayName="RDW" /> <statusCode code="completed" /> <effectiveTime value="888603420274" /> < value unit="%" xsi:type="PQ" value="13.7" /> <referenceRange> <observationRange> <text>11.5-14.5</text> </ observationRange> </referenceRange> </observation> </ component> <component> <observation moodCode="EVN" classCode="OBS"> <templateId root="216.840.1.205018.07.02.22.4.2" /> <id nullFlavor="NA" /> <code codeSystem="local" code="WBCIR" displayName= "WBC" /> <statusCode code="completed" /> <effectiveTime value= "116318403396" /> <value unit="K/uL" xsi:type="PQ" value="8.0" /> <referenceRange> <observationRange> <text>4.8-10.8< /text> </observationRange> </referenceRange> </ observation> </component> </organizer> </entry> <entry> <organizer moodCode="EVN" classCode="BATTERY"> <templateId root= "2.16.840.1.436369...22.4.1" /> <id nullFlavor="NA" /> <code codeSystem="local" code="RENAL" displayName="Renal Function Panel" /> < statusCode code="completed" /> <component> <observation moodCode= "EVN" classCode="OBS"> <templateId root="216.840.1.078226.10..22.4.2 " /> <id nullFlavor="NA" /> <code codeSystem="local" code="ALB " displayName="Albumin" /> <statusCode code="completed" /> < effectiveTime value="" /> <value unit="g/dL" xsi:type="PQ" value="3.0" /> <interpretationCode codeSystem="local" code="*" /> <referenceRange> <observationRange> <text>3.5-4.8</ text> </observationRange> </referenceRange> </ observation> </component> <component> <observation moodCode= "EVN" classCode="OBS"> <templateId root="16.840.1.252938.07.02.22.4.2 " /> <id nullFlavor="NA" /> <code codeSystem="local" code= "AGAP" displayName="Anion Gap" /> <statusCode code="completed" /> <effectiveTime value="" /> <value unit="mEq/L" xsi: type="PQ" value="8" /> <referenceRange> <observationRange> <text>3-20</text> </observationRange> </ referenceRange> </observation> </component> <component> <observation moodCode="EVN" classCode="OBS"> <templateId root= "16.840.1.348936.10..22.4.2" /> <id nullFlavor="NA" /> < code codeSystem="local" code="BUN" displayName="BUN" /> <statusCode code="completed" /> <effectiveTime value="" /> < value unit="mg/dL" xsi:type="PQ" value="27" /> <interpretationCode codeSystem="local" code="*" /> <referenceRange> < observationRange> <text>4-20</text> </observationRange> </referenceRange> </observation> </component> < component> <observation moodCode="EVN" classCode="OBS"> < templateId root="10.29.840.1.941269.10.2022.4.2" /> <id nullFlavor="NA " /> <code codeSystem="local" code="CA" displayName="Calcium" /> <statusCode code="completed" /> <effectiveTime value=" " /> <value unit="mg/dL" xsi:type="PQ" value="8.3" /> < interpretationCode codeSystem="local" code="*" /> <referenceRange> <observationRange> <text>8.6-10.0</text> </ observationRange> </referenceRange> </observation> </ component> <component> <observation moodCode="EVN" classCode="OBS"> <templateId root="840.1.086682.07.02.22.4.2" /> <id nullFlavor="NA" /> <code codeSystem="local" code="CL" displayName= "Chloride" /> <statusCode code="completed" /> <effectiveTime value="" /> <value unit="mEq/L" xsi:type="PQ" value="105" / > <referenceRange> <observationRange> <text>99- 109</text> </observationRange> </referenceRange> </ observation> </component> <component> <observation moodCode= "EVN" classCode="OBS"> <templateId root="10.29.840.1.817445.10.20.22.4.2 " /> <id nullFlavor="NA" /> <code codeSystem="local" code="CO2 " displayName="CO2" /> <statusCode code="completed" /> < effectiveTime value="" /> <value unit="mEq/L" xsi:type="PQ " value="21" /> <interpretationCode codeSystem="local" code="*" /> <referenceRange> <observationRange> <text>22-32</ text> </observationRange> </referenceRange> </ observation> </component> <component> <observation moodCode= "EVN" classCode="OBS"> <templateId root="2.16.840.1.048972.10...4.2 " /> <id nullFlavor="NA" /> <code codeSystem="local" code= "CREAT" displayName="Creatinine" /> <statusCode code="completed" /> <effectiveTime value="" /> <value unit="mg/dL" xsi: type="PQ" value="0.88" /> <referenceRange> <observationRange > <text>0.64-1.27</text> </observationRange> </ referenceRange> </observation> </component> <component> <observation moodCode="EVN" classCode="OBS"> <templateId root= "216.840.1.719906.10..22.4.2" /> <id nullFlavor="NA" /> < code codeSystem="local" code="GLU" displayName="Glucose" /> < statusCode code="completed" /> <effectiveTime value="" /> <value unit="mg/dL" xsi:type="PQ" value="103" /> < interpretationCode codeSystem="local" code="*" /> <referenceRange> <observationRange> <text>70-100</text> </ observationRange> </referenceRange> </observation> </ component> <component> <observation moodCode="EVN" classCode="OBS"> <templateId root="10.29.840.1.039776.10.20.22.4.2" /> <id nullFlavor="NA" /> <code codeSystem="local" code="PHOS" displayName= "Phosphorus" /> <statusCode code="completed" /> < effectiveTime value="" /> <value unit="mg/dL" xsi:type="PQ " value="3.2" /> <referenceRange> <observationRange> <text>2.4-4.7</text> </observationRange> </ referenceRange> </observation> </component> <component> <observation moodCode="EVN" classCode="OBS"> <templateId root= "840.1.092165.1022.4.2" /> <id nullFlavor="NA" /> < code codeSystem="local" code="K" displayName="Potassium" /> < statusCode code="completed" /> <effectiveTime value="" /> <value unit="mEq/L" xsi:type="PQ" value="3.8" /> < referenceRange> <observationRange> <text>3.6-5.1</text> </observationRange> </referenceRange> </observation > </component> <component> <observation moodCode="EVN" classCode="OBS"> <templateId root="10.29.840.1.838523.10.20.22.4.2" /> <id nullFlavor="NA" /> <code codeSystem="local" code="NA" displayName="Sodium" /> <statusCode code="completed" /> < effectiveTime value="" /> <value unit="mEq/L" xsi:type="PQ " value="134" /> <interpretationCode codeSystem="local" code="*" /> <referenceRange> <observationRange> <text>136-144 </text> </observationRange> </referenceRange> </ observation> </component> </organizer> </entry> <entry> <organizer moodCode="EVN" classCode="BATTERY"> <templateId root= "10.29.840.1.408161.10..22.4.1" /> <id nullFlavor="NA" /> <code codeSystem="local" code="MG" displayName="Magnesium" /> <statusCode code= "completed" /> <component> <observation moodCode="EVN" classCode= "OBS"> <templateId root="840.1.000888.07.02.22.4.2" /> < id nullFlavor="NA" /> <code codeSystem="local" code="MG" displayName= "Magnesium" /> <statusCode code="completed" /> <effectiveTime value="030952210130" /> <value unit="mg/dL" xsi:type="PQ" value="1.9" / > <referenceRange> <observationRange> <text>1.8 -2.5</text> </observationRange> </referenceRange> </ observation> </component> </organizer> </entry> <entry> <organizer moodCode="EVN" classCode="BATTERY"> <templateId root= "840.1.860317.07.02.22.4.1" /> <id nullFlavor="NA" /> <code codeSystem="local" code="GFR" displayName="eGFR" /> <statusCode code= "completed" /> <component> <observation moodCode="EVN" classCode= "OBS"> <templateId root="840.1.681926.10..22.4.2" /> < id nullFlavor="NA" /> <code codeSystem="local" code="GFR" displayName= "eGFR" /> <statusCode code="completed" /> <effectiveTime value ="408704438065" /> <value unit="mL/min" xsi:type="PQ" value=">60" / > <referenceRange> <observationRange> <text>&gt ;60</text> </observationRange> </referenceRange> </ observation> </component> </organizer> </entry> <entry> <organizer moodCode="EVN" classCode="BATTERY"> <templateId root= "216.840.1.702985.10..22.4.1" /> <id nullFlavor="NA" /> <code codeSystem="local" code="CBCND" displayName="CBC With Platelet No Differential" /> <statusCode code="completed" /> <component> <observation moodCode="EVN" classCode="OBS"> <templateId root= "216.840.1.954037.10..22.4.2" /> <id nullFlavor="NA" /> < code codeSystem="local" code="HCT" displayName="HCT" /> <statusCode code="completed" /> <effectiveTime value="711706738512" /> < value unit="%" xsi:type="PQ" value="38.0" /> <interpretationCode codeSystem="local" code="*" /> <referenceRange> < observationRange> <text>42.0-52.0</text> </ observationRange> </referenceRange> </observation> </ component> <component> <observation moodCode="EVN" classCode="OBS"> <templateId root="16.840.1.550319.10.20.22.4.2" /> <id nullFlavor="NA" /> <code codeSystem="local" code="HGB" displayName="HGB " /> <statusCode code="completed" /> <effectiveTime value= "132357459624" /> <value unit="g/dL" xsi:type="PQ" value="12.9" /> <interpretationCode codeSystem="local" code="*" /> < referenceRange> <observationRange> <text>14.0-18.0</text > </observationRange> </referenceRange> </observation > </component> <component> <observation moodCode="EVN" classCode="OBS"> <templateId root="2.16.840.1.800448.10..22.4.2" /> <id nullFlavor="NA" /> <code codeSystem="local" code="MCH" displayName="MCH" /> <statusCode code="completed" /> < effectiveTime value="939879566543" /> <value unit="pg" xsi:type="PQ" value="31.2" /> <referenceRange> <observationRange> <text>27.0-32.0</text> </observationRange> </ referenceRange> </observation> </component> <component> <observation moodCode="EVN" classCode="OBS"> <templateId root= "2.16.840.1.210603.10.20.22.4.2" /> <id nullFlavor="NA" /> < code codeSystem="local" code="MCHC" displayName="MCHC" /> <statusCode code="completed" /> <effectiveTime value="800500166150" /> < value unit="g/dL" xsi:type="PQ" value="33.9" /> <referenceRange> <observationRange> <text>32.0-36.0</text> </ observationRange> </referenceRange> </observation> </ component> <component> <observation moodCode="EVN" classCode="OBS"> <templateId root="16.840.1.634344.10.20.22.4.2" /> <id nullFlavor="NA" /> <code codeSystem="local" code="MCV" displayName="MCV " /> <statusCode code="completed" /> <effectiveTime value= "709636985157" /> <value unit="fL" xsi:type="PQ" value="91.8" /> <referenceRange> <observationRange> <text>82.0-99.0< /text> </observationRange> </referenceRange> </ observation> </component> <component> <observation moodCode= "EVN" classCode="OBS"> <templateId root="10.29.840.1.269844..22.4.2 " /> <id nullFlavor="NA" /> <code codeSystem="local" code="MPV " displayName="MPV" /> <statusCode code="completed" /> < effectiveTime value="042938801485" /> <value unit="fL" xsi:type="PQ" value="10.6" /> <referenceRange> <observationRange> <text>9.4-12.3</text> </observationRange> </ referenceRange> </observation> </component> <component> <observation moodCode="EVN" classCode="OBS"> <templateId root= "10.29.840.1.022371.10.20.22.4.2" /> <id nullFlavor="NA" /> < code codeSystem="local" code="PLT" displayName="Platelet Count" /> < statusCode code="completed" /> <effectiveTime value="264400242112" /> <value unit="K/uL" xsi:type="PQ" value="221" /> < referenceRange> <observationRange> <text>150-400</text> </observationRange> </referenceRange> </observation > </component> <component> <observation moodCode="EVN" classCode="OBS"> <templateId root="216.840.1.821497.10.20.22.4.2" /> <id nullFlavor="NA" /> <code codeSystem="local" code="RBC" displayName="RBC" /> <statusCode code="completed" /> < effectiveTime value="286315896253" /> <value unit="10*6/uL" xsi:type= "PQ" value="4.14" /> <interpretationCode codeSystem="local" code="*" / > <referenceRange> <observationRange> <text> 4.60-6.20</text> </observationRange> </referenceRange> </observation> </component> <component> <observation moodCode="EVN" classCode="OBS"> <templateId root= "16.840.1.275247.07.02.22.4.2" /> <id nullFlavor="NA" /> < code codeSystem="local" code="RDW" displayName="RDW" /> <statusCode code="completed" /> <effectiveTime value="886560253953" /> < value unit="%" xsi:type="PQ" value="14.0" /> <referenceRange> <observationRange> <text>11.5-14.5</text> </ observationRange> </referenceRange> </observation> </ component> <component> <observation moodCode="EVN" classCode="OBS"> <templateId root="216.840.1.456293.102022.4.2" /> <id nullFlavor="NA" /> <code codeSystem="local" code="WBCIR" displayName= "WBC" /> <statusCode code="completed" /> <effectiveTime value= "773916902143" /> <value unit="K/uL" xsi:type="PQ" value="8.9" /> <referenceRange> <observationRange> <text>4.8-10.8< /text> </observationRange> </referenceRange> </ observation> </component> </organizer> </entry> <entry> <organizer moodCode="EVN" classCode="BATTERY"> <templateId root= "16.840.1.721320.10..22.4.1" /> <id nullFlavor="NA" /> <code codeSystem="local" code="LACID" displayName="Lactic Acid Venous" /> < statusCode code="completed" /> <component> <observation moodCode= "EVN" classCode="OBS"> <templateId root="16.840.1.551328.10..22.4.2 " /> <id nullFlavor="NA" /> <code codeSystem="local" code= "LACID" displayName="Lactic Acid Venous" /> <statusCode code="completed " /> <effectiveTime value="683038646639" /> <value unit="mEq/L " xsi:type="PQ" value="1.2" /> <referenceRange> < observationRange> <text>0.5-2.0</text> </ observationRange> </referenceRange> </observation> </ component> </organizer> </entry> <entry> <organizer moodCode="EVN" classCode="BATTERY"> <templateId root="16.840.1.866359.10..22.4.1" /> <id nullFlavor="NA" /> <code codeSystem="local" code="BNP" displayName ="B-Type Natriuretic Peptide" /> <statusCode code="completed" /> < component> <observation moodCode="EVN" classCode="OBS"> < templateId root="2.16.840.1.100442.10..22.4.2" /> <id nullFlavor="NA " /> <code codeSystem="local" code="BNP" displayName="B-Type Natriuretic Peptide" /> <statusCode code="completed" /> < effectiveTime value="668385557965" /> <value unit="pg/mL" xsi:type="PQ " value="34" /> <referenceRange> <observationRange> <text>0-99</text> </observationRange> </referenceRange > </observation> </component> </organizer> </entry> <entry> <organizer moodCode="EVN" classCode="BATTERY"> <templateId root= "2.16.840.1.381801.10...4.1" /> <id nullFlavor="NA" /> <code codeSystem="local" code="TROP" displayName="Troponin" /> <statusCode code= "completed" /> <component> <observation moodCode="EVN" classCode= "OBS"> <templateId root="2.16.840.1.315540.10...4.2" /> < id nullFlavor="NA" /> <code codeSystem="local" code="TROP" displayName= "Troponin" /> <statusCode code="completed" /> <effectiveTime value="833215041142" /> <value unit="ng/mL" xsi:type="PQ" value="< 0.05" /> <referenceRange> <observationRange> < text><0.06</text> </observationRange> </referenceRange> </observation> </component> </organizer> </entry> <entry> < organizer moodCode="EVN" classCode="BATTERY"> <templateId root= "216.840.1.138861.07.02.22.4.1" /> <id nullFlavor="NA" /> <code codeSystem="local" code="BMP" displayName="Basic Metabolic Panel (BMP)" /> <statusCode code="completed" /> <component> <observation moodCode= "EVN" classCode="OBS"> <templateId root="840.1.155614.10...4.2 " /> <id nullFlavor="NA" /> <code codeSystem="local" code= "AGAP" displayName="Anion Gap" /> <statusCode code="completed" /> <effectiveTime value="" /> <value unit="mEq/L" xsi: type="PQ" value="12" /> <referenceRange> <observationRange> <text>3-20</text> </observationRange> </ referenceRange> </observation> </component> <component> <observation moodCode="EVN" classCode="OBS"> <templateId root= "840.1.750940.07.02.22.4.2" /> <id nullFlavor="NA" /> < code codeSystem="local" code="BUN" displayName="BUN" /> <statusCode code="completed" /> <effectiveTime value="" /> < value unit="mg/dL" xsi:type="PQ" value="44" /> <interpretationCode codeSystem="local" code="*" /> <referenceRange> < observationRange> <text>4-20</text> </observationRange> </referenceRange> </observation> </component> < component> <observation moodCode="EVN" classCode="OBS"> < templateId root="840.1.061013.10..22.4.2" /> <id nullFlavor="NA " /> <code codeSystem="local" code="CA" displayName="Calcium" /> <statusCode code="completed" /> <effectiveTime value="373982954212 " /> <value unit="mg/dL" xsi:type="PQ" value="8.4" /> < interpretationCode codeSystem="local" code="*" /> <referenceRange> <observationRange> <text>8.6-10.0</text> </ observationRange> </referenceRange> </observation> </ component> <component> <observation moodCode="EVN" classCode="OBS"> <templateId root="216.840.1.868009.10...4.2" /> <id nullFlavor="NA" /> <code codeSystem="local" code="CL" displayName= "Chloride" /> <statusCode code="completed" /> <effectiveTime value="" /> <value unit="mEq/L" xsi:type="PQ" value="101" / > <referenceRange> <observationRange> <text>99- 109</text> </observationRange> </referenceRange> </ observation> </component> <component> <observation moodCode= "EVN" classCode="OBS"> <templateId root="16.840.1.975932.10.20.22.4.2 " /> <id nullFlavor="NA" /> <code codeSystem="local" code="CO2 " displayName="CO2" /> <statusCode code="completed" /> < effectiveTime value="513502343018" /> <value unit="mEq/L" xsi:type="PQ " value="19" /> <interpretationCode codeSystem="local" code="*" /> <referenceRange> <observationRange> <text>22-32</ text> </observationRange> </referenceRange> </ observation> </component> <component> <observation moodCode= "EVN" classCode="OBS"> <templateId root="10.29.840.1.814869.10.20.22.4.2 " /> <id nullFlavor="NA" /> <code codeSystem="local" code= "CREAT" displayName="Creatinine" /> <statusCode code="completed" /> <effectiveTime value="" /> <value unit="mg/dL" xsi: type="PQ" value="1.25" /> <referenceRange> <observationRange > <text>0.64-1.27</text> </observationRange> </ referenceRange> </observation> </component> <component> <observation moodCode="EVN" classCode="OBS"> <templateId root= "10.29.840.1.906857..22.4.2" /> <id nullFlavor="NA" /> < code codeSystem="local" code="GLU" displayName="Glucose" /> < statusCode code="completed" /> <effectiveTime value="" /> <value unit="mg/dL" xsi:type="PQ" value="76" /> < referenceRange> <observationRange> <text>70-100</text> </observationRange> </referenceRange> </observation> </component> <component> <observation moodCode="EVN" classCode ="OBS"> <templateId root="10.29.840.1.336801.10..22.4.2" /> < id nullFlavor="NA" /> <code codeSystem="local" code="K" displayName= "Potassium" /> <statusCode code="completed" /> <effectiveTime value="" /> <value unit="mEq/L" xsi:type="PQ" value="4.2" / > <referenceRange> <observationRange> <text>3.6 -5.1</text> </observationRange> </referenceRange> </ observation> </component> <component> <observation moodCode= "EVN" classCode="OBS"> <templateId root="2.16.840.1.826271.10.22.4.2 " /> <id nullFlavor="NA" /> <code codeSystem="local" code="NA " displayName="Sodium" /> <statusCode code="completed" /> < effectiveTime value="" /> <value unit="mEq/L" xsi:type="PQ " value="132" /> <interpretationCode codeSystem="local" code="*" /> <referenceRange> <observationRange> <text>136-144 </text> </observationRange> </referenceRange> </ observation> </component> </organizer> </entry> <entry> <organizer moodCode="EVN" classCode="BATTERY"> <templateId root= "2.16.840.1.756945.10..22.4.1" /> <id nullFlavor="NA" /> <code codeSystem="local" code="MG" displayName="Magnesium" /> <statusCode code= "completed" /> <component> <observation moodCode="EVN" classCode= "OBS"> <templateId root="2.16.840.1.348873.10..22.4.2" /> < id nullFlavor="NA" /> <code codeSystem="local" code="MG" displayName= "Magnesium" /> <statusCode code="completed" /> <effectiveTime value="558796934265" /> <value unit="mg/dL" xsi:type="PQ" value="1.8" / > <referenceRange> <observationRange> <text>1.8 -2.5</text> </observationRange> </referenceRange> </ observation> </component> </organizer> </entry> <entry> <organizer moodCode="EVN" classCode="BATTERY"> <templateId root= "840.1.042868.10.4.1" /> <id nullFlavor="NA" /> <code codeSystem="local" code="GFR" displayName="eGFR" /> <statusCode code= "completed" /> <component> <observation moodCode="EVN" classCode= "OBS"> <templateId root="840.1.625858.07.02.22.4.2" /> < id nullFlavor="NA" /> <code codeSystem="local" code="GFR" displayName= "eGFR" /> <statusCode code="completed" /> <effectiveTime value ="030430854012" /> <value unit="mL/min" xsi:type="PQ" value=">60" / > <referenceRange> <observationRange> <text>&gt ;60</text> </observationRange> </referenceRange> </ observation> </component> </organizer> </entry> <entry> <organizer moodCode="EVN" classCode="BATTERY"> <templateId root= "840.1.069528.07.02.22.4.1" /> <id nullFlavor="NA" /> <code codeSystem="local" code="LIVER" displayName="Hepatic Function Panel" /> < statusCode code="completed" /> <component> <observation moodCode= "EVN" classCode="OBS"> <templateId root="840.1.094145.07.02.22.4.2 " /> <id nullFlavor="NA" /> <code codeSystem="local" code="ALB " displayName="Albumin" /> <statusCode code="completed" /> < effectiveTime value="265319774135" /> <value unit="g/dL" xsi:type="PQ" value="3.5" /> <referenceRange> <observationRange> <text>3.5-4.8</text> </observationRange> </ referenceRange> </observation> </component> <component> <observation moodCode="EVN" classCode="OBS"> <templateId root= "10.29.840.1.330775.10..22.4.2" /> <id nullFlavor="NA" /> < code codeSystem="local" code="ALP" displayName="Alkaline Phosphatase" /> <statusCode code="completed" /> <effectiveTime value="057133140552" /> <value unit="U/L" xsi:type="PQ" value="78" /> < referenceRange> <observationRange> <text>26-104</text> </observationRange> </referenceRange> </observation> </component> <component> <observation moodCode="EVN" classCode ="OBS"> <templateId root="10.29.840.1.147877.10..4.2" /> < id nullFlavor="NA" /> <code codeSystem="local" code="ALT" displayName= "ALT (SGPT)" /> <statusCode code="completed" /> < effectiveTime value="234431185171" /> <value unit="U/L" xsi:type="PQ" value="46" /> <referenceRange> <observationRange> <text>17-63</text> </observationRange> </referenceRange > </observation> </component> <component> <observation moodCode="EVN" classCode="OBS"> <templateId root= "10.29.840.1.505140.10.20.22.4.2" /> <id nullFlavor="NA" /> < code codeSystem="local" code="AST" displayName="AST (SGOT)" /> < statusCode code="completed" /> <effectiveTime value="296945005501" /> <value unit="U/L" xsi:type="PQ" value="44" /> < interpretationCode codeSystem="local" code="*" /> <referenceRange> <observationRange> <text>15-41</text> </ observationRange> </referenceRange> </observation> </ component> <component> <observation moodCode="EVN" classCode="OBS"> <templateId root="216.840.1.936314.10..22.4.2" /> <id nullFlavor="NA" /> <code codeSystem="local" code="BILID" displayName= "Bilirubin Direct" /> <statusCode code="completed" /> < effectiveTime value="271073327472" /> <value unit="mg/dL" xsi:type="PQ " value="0.2" /> <referenceRange> <observationRange> <text>0.0-0.2</text> </observationRange> </ referenceRange> </observation> </component> <component> <observation moodCode="EVN" classCode="OBS"> <templateId root= "216.840.1.320415.10.20.22.4.2" /> <id nullFlavor="NA" /> < code codeSystem="local" code="BILII" displayName="Bilirubin Indirect" /> <statusCode code="completed" /> <effectiveTime value="770581782472" /> <value unit="mg/dL" xsi:type="PQ" value="0.2" /> < referenceRange> <observationRange> <text>0.0-1.0</text> </observationRange> </referenceRange> </observation > </component> <component> <observation moodCode="EVN" classCode="OBS"> <templateId root="10.29.840.1.916395.10.22.4.2" /> <id nullFlavor="NA" /> <code codeSystem="local" code="BILIT" displayName="Bilirubin Total" /> <statusCode code="completed" /> <effectiveTime value="336752557569" /> <value unit="mg/dL" xsi:type ="PQ" value="0.4" /> <referenceRange> <observationRange> <text>0.2-1.2</text> </observationRange> </ referenceRange> </observation> </component> <component> <observation moodCode="EVN" classCode="OBS"> <templateId root= "840.1.328714.07.02.22.4.2" /> <id nullFlavor="NA" /> < code codeSystem="local" code="TP" displayName="Protein" /> <statusCode code="completed" /> <effectiveTime value="[id number]" /> < value unit="g/dL" xsi:type="PQ" value="6.5" /> <referenceRange> <observationRange> <text>6.1-7.9</text> </ observationRange> </referenceRange> </observation> </ component> </organizer> </entry> <entry> <organizer moodCode="EVN" classCode="BATTERY"> <templateId root="10.29.840.1.699379.22.4.1" /> <id nullFlavor="NA" /> <code codeSystem="local" code="ABGRT" displayName="Blood Gases, Arterial (RT)" /> <statusCode code="completed" / > <component> <observation moodCode="EVN" classCode="OBS"> <templateId root="10.29.840.1.548419.22.4.2" /> <id nullFlavor="NA " /> <code codeSystem="local" code="YNES" displayName="Arterial Base Excess" /> <statusCode code="completed" /> <effectiveTime value="[id number]" /> <value unit="NA" xsi:type="PQ" value="-3" /> <interpretationCode codeSystem="local" code="*" /> < referenceRange> <observationRange> <text>0-2</text> </observationRange> </referenceRange> </observation> </component> <component> <observation moodCode="EVN" classCode= "OBS"> <templateId root="2.16.840.1.503140.07.02.224.2" /> < id nullFlavor="NA" /> <code codeSystem="local" code="AHCO3" displayName ="Arterial Bicarbonate" /> <statusCode code="completed" /> < effectiveTime value="[id number]" /> <value unit="mEq/L" xsi:type="PQ " value="21" /> <interpretationCode codeSystem="local" code="*" /> <referenceRange> <observationRange> <text>22-26</ text> </observationRange> </referenceRange> </ observation> </component> <component> <observation moodCode= "EVN" classCode="OBS"> <templateId root="216.840.1.509823.07.02.224.2 " /> <id nullFlavor="NA" /> <code codeSystem="local" code= "AOSAT" displayName="Arterial O2 Saturation" /> <statusCode code= "completed" /> <effectiveTime value="937376100560" /> <value unit="%" xsi:type="PQ" value="92.3" /> <referenceRange> <observationRange> <text>90.0-97.0</text> </ observationRange> </referenceRange> </observation> </ component> <component> <observation moodCode="EVN" classCode="OBS"> <templateId root="216.840.1.713487.10.2022.4.2" /> <id nullFlavor="NA" /> <code codeSystem="local" code="APCO2" displayName= "Arterial PCO2" /> <statusCode code="completed" /> < effectiveTime value="156144138293" /> <value unit="mmHg" xsi:type="PQ" value="34" /> <interpretationCode codeSystem="local" code="*" /> <referenceRange> <observationRange> <text>35-45</ text> </observationRange> </referenceRange> </ observation> </component> <component> <observation moodCode= "EVN" classCode="OBS"> <templateId root="10.29.840.1.617117.10.4.2 " /> <id nullFlavor="NA" /> <code codeSystem="local" code="APH " displayName="Arterial PH" /> <statusCode code="completed" /> <effectiveTime value="659909343810" /> <value unit="NA" xsi:type="PQ " value="7.41" /> <referenceRange> <observationRange> <text>7.35-7.45</text> </observationRange> </ referenceRange> </observation> </component> <component> <observation moodCode="EVN" classCode="OBS"> <templateId root= "216.840.1.884017.10.22.4.2" /> <id nullFlavor="NA" /> < code codeSystem="local" code="APO2" displayName="Arterial PO2" /> < statusCode code="completed" /> <effectiveTime value="550662886928" /> <value unit="mmHg" xsi:type="PQ" value="65" /> < interpretationCode codeSystem="local" code="*" /> <referenceRange> <observationRange> <text>80-100</text> </ observationRange> </referenceRange> </observation> </ component> <component> <observation moodCode="EVN" classCode="OBS"> <templateId root="10.29.840.1.632918.1022.4.2" /> <id nullFlavor="NA" /> <code codeSystem="local" code="AFLOW" displayName= "Arterial LPM" /> <statusCode code="completed" /> < effectiveTime value="306366727376" /> <value unit="L/min" xsi:type="PQ " value="5.0" /> <referenceRange> <observationRange> <text /> </observationRange> </referenceRange> </observation> </component> <component> <observation moodCode ="EVN" classCode="OBS"> <templateId root= "840.1.328798.07.02.22.4.2" /> <id nullFlavor="NA" /> < code codeSystem="local" code="AO2PN" displayName="O2 Panel" /> < statusCode code="completed" /> <effectiveTime value="018964608184" /> <value unit="" xsi:type="PQ" value="nasal cannula" /> < referenceRange> <observationRange> <text /> < /observationRange> </referenceRange> </observation> </ component> <component> <observation moodCode="EVN" classCode="OBS"> <templateId root="10.29.840.1.999945.1022.4.2" /> <id nullFlavor="NA" /> <code codeSystem="local" code="ASITE" displayName= "Spec Site" /> <statusCode code="completed" /> <effectiveTime value="441573560389" /> <value unit="" xsi:type="PQ" value="A. radialis r." /> <referenceRange> <observationRange> <text /> </observationRange> </referenceRange> </observation> </component> </organizer> </entry> <entry> < organizer moodCode="EVN" classCode="BATTERY"> <templateId root= "216.840.1.298983.10..22.4.1" /> <id nullFlavor="NA" /> <code codeSystem="local" code="VCHMN" displayName="Chem 8 NPT" /> <statusCode code="completed" /> <component> <observation moodCode="EVN" classCode="OBS"> <templateId root="216.840.1.558197.10...4.2" /> <id nullFlavor="NA" /> <code codeSystem="local" code="VAGAP" displayName="Anion Gap" /> <statusCode code="completed" /> < effectiveTime value="926126647656" /> <value unit="mEq/L" xsi:type="PQ " value="12" /> <referenceRange> <observationRange> <text>3-20</text> </observationRange> </referenceRange > </observation> </component> <component> <observation moodCode="EVN" classCode="OBS"> <templateId root= "16.840.1.591978.10...4.2" /> <id nullFlavor="NA" /> < code codeSystem="local" code="VBUNN" displayName="BUN Venous" /> < statusCode code="completed" /> <effectiveTime value="" /> <value unit="mg/dl" xsi:type="PQ" value="24" /> < interpretationCode codeSystem="local" code="*" /> <referenceRange> <observationRange> <text>4-20</text> </ observationRange> </referenceRange> </observation> </ component> <component> <observation moodCode="EVN" classCode="OBS"> <templateId root="216.840.1.657903.07.02.22.4.2" /> <id nullFlavor="NA" /> <code codeSystem="local" code="VCANN" displayName= "Calcium Ionized Venous" /> <statusCode code="completed" /> < effectiveTime value="517159639659" /> <value unit="mmol/L" xsi:type="PQ " value="1.01" /> <interpretationCode codeSystem="local" code="*" /> <referenceRange> <observationRange> <text>1.19- 1.41</text> </observationRange> </referenceRange> </ observation> </component> <component> <observation moodCode= "EVN" classCode="OBS"> <templateId root="16.840.1.320034.07.02.22.4.2 " /> <id nullFlavor="NA" /> <code codeSystem="local" code= "VCREN" displayName="Creatinine Venous" /> <statusCode code="completed " /> <effectiveTime value="801854945660" /> <value unit="mg/dL " xsi:type="PQ" value="1.0" /> <referenceRange> < observationRange> <text>0.7-1.2</text> </ observationRange> </referenceRange> </observation> </ component> <component> <observation moodCode="EVN" classCode="OBS"> <templateId root="216.840.1.802342.07.02.22.4.2" /> <id nullFlavor="NA" /> <code codeSystem="local" code="VGLNN" displayName= "Glucose Venous" /> <statusCode code="completed" /> < effectiveTime value="" /> <value unit="mg/dL" xsi:type="PQ " value="83" /> <referenceRange> <observationRange> <text>70-100</text> </observationRange> </ referenceRange> </observation> </component> <component> <observation moodCode="EVN" classCode="OBS"> <templateId root= "216.840.1.811977.07.02.22.4.2" /> <id nullFlavor="NA" /> < code codeSystem="local" code="VKNN" displayName="Potassium, WB" /> < statusCode code="completed" /> <effectiveTime value="" /> <value unit="mEq/L" xsi:type="PQ" value="3.5" /> < interpretationCode codeSystem="local" code="*" /> <referenceRange> <observationRange> <text>3.6-5.1</text> </ observationRange> </referenceRange> </observation> </ component> <component> <observation moodCode="EVN" classCode="OBS"> <templateId root="16.840.1.113627.07.02.22.4.2" /> <id nullFlavor="NA" /> <code codeSystem="local" code="VNANN" displayName= "Sodium Venous" /> <statusCode code="completed" /> < effectiveTime value="" /> <value unit="mEq/L" xsi:type="PQ " value="137" /> <referenceRange> <observationRange> <text>136-144</text> </observationRange> </ referenceRange> </observation> </component> <component> <observation moodCode="EVN" classCode="OBS"> <templateId root= "216.840.1.023256.10..4.2" /> <id nullFlavor="NA" /> < code codeSystem="local" code="VTCNN" displayName="Total CO2 Venous" /> <statusCode code="completed" /> <effectiveTime value="" /> <value unit="mEq/L" xsi:type="PQ" value="22" /> < interpretationCode codeSystem="local" code="*" /> <referenceRange> <observationRange> <text>25-29</text> </ observationRange> </referenceRange> </observation> </ component> <component> <observation moodCode="EVN" classCode="OBS"> <templateId root="10.29.840.1.330782.07.02.22.4.2" /> <id nullFlavor="NA" /> <code codeSystem="local" code="VCLN" displayName= "Venous CL" /> <statusCode code="completed" /> <effectiveTime value="" /> <value unit="mEq/L" xsi:type="PQ" value="103" / > <referenceRange> <observationRange> <text>99- 109</text> </observationRange> </referenceRange> </ observation> </component> <component> <observation moodCode= "EVN" classCode="OBS"> <templateId root="216.840.1.299821...4.2 " /> <id nullFlavor="NA" /> <code codeSystem="local" code= "VHCNN" displayName="HCT Venous" /> <statusCode code="completed" /> <effectiveTime value="" /> <value unit="%" xsi: type="PQ" value="35.0" /> <interpretationCode codeSystem="local" code= "*" /> <referenceRange> <observationRange> < text>42.0-52.0</text> </observationRange> </referenceRange> </observation> </component> <component> <observation moodCode="EVN" classCode="OBS"> <templateId root= "10.29.840.1.097836.10.4.2" /> <id nullFlavor="NA" /> < code codeSystem="local" code="VHGNN" displayName="HGB Venous NPT" /> < statusCode code="completed" /> <effectiveTime value="366941692839" /> <value unit="g/dL" xsi:type="PQ" value="11.9" /> < interpretationCode codeSystem="local" code="*" /> <referenceRange> <observationRange> <text>14.0-16.0</text> </ observationRange> </referenceRange> </observation> </ component> </organizer> </entry> <entry> <organizer moodCode="EVN" classCode="BATTERY"> <templateId root="10.29.840.1.977724.07.02.22.4.1" /> <id nullFlavor="NA" /> <code codeSystem="local" code="CBCWD" displayName="CBC With Platelet and Differential" /> <statusCode code= "completed" /> <component> <observation moodCode="EVN" classCode= "OBS"> <templateId root="10.29.840.1.524489.22.4.2" /> < id nullFlavor="NA" /> <code codeSystem="local" code="ABASR" displayName ="Absolute Basophils" /> <statusCode code="completed" /> < effectiveTime value="" /> <value unit="10*3/uL" xsi:type= "PQ" value="0.02" /> <referenceRange> <observationRange> <text>0.00-0.20</text> </observationRange> </ referenceRange> </observation> </component> <component> <observation moodCode="EVN" classCode="OBS"> <templateId root= "216.840.1.516409.07.02.22.4.2" /> <id nullFlavor="NA" /> < code codeSystem="local" code="AEOSR" displayName="Absolute Eosinophils" /> <statusCode code="completed" /> <effectiveTime value=" " /> <value unit="10*3/uL" xsi:type="PQ" value="0.39" /> < referenceRange> <observationRange> <text>0.00-0.50</text > </observationRange> </referenceRange> </observation > </component> <component> <observation moodCode="EVN" classCode="OBS"> <templateId root="216.840.1.044514.07.02.22.4.2" /> <id nullFlavor="NA" /> <code codeSystem="local" code="ALYMR" displayName="Absolute Lymphocytes" /> <statusCode code="completed" /> <effectiveTime value="" /> <value unit="10*3/uL" xsi:type="PQ" value="1.92" /> <referenceRange> < observationRange> <text>0.80-3.30</text> </ observationRange> </referenceRange> </observation> </ component> <component> <observation moodCode="EVN" classCode="OBS"> <templateId root="216.840.1.830252.07.02.22.4.2" /> <id nullFlavor="NA" /> <code codeSystem="local" code="AMONR" displayName= "Absolute Monocytes" /> <statusCode code="completed" /> < effectiveTime value="" /> <value unit="10*3/uL" xsi:type= "PQ" value="0.76" /> <referenceRange> <observationRange> <text>0.30-1.00</text> </observationRange> </ referenceRange> </observation> </component> <component> <observation moodCode="EVN" classCode="OBS"> <templateId root= "2.16.840.1.254448.07.02.224.2" /> <id nullFlavor="NA" /> < code codeSystem="local" code="ASEGR" displayName="Absolute Neutrophils" /> <statusCode code="completed" /> <effectiveTime value=" " /> <value unit="10*3/uL" xsi:type="PQ" value="1.91" /> < referenceRange> <observationRange> <text>1.90-7.00</text > </observationRange> </referenceRange> </observation > </component> <component> <observation moodCode="EVN" classCode="OBS"> <templateId root="2.16.840.1.169491.10.4.2" /> <id nullFlavor="NA" /> <code codeSystem="local" code="BASOR" displayName="Basophils" /> <statusCode code="completed" /> < effectiveTime value="" /> <value unit="%" xsi:type="PQ " value="0" /> <referenceRange> <observationRange> <text>0-2</text> </observationRange> </referenceRange> </observation> </component> <component> <observation moodCode="EVN" classCode="OBS"> <templateId root= "16.840.1.406860.10..22.4.2" /> <id nullFlavor="NA" /> < code codeSystem="local" code="EOSR" displayName="Eosinophils" /> < statusCode code="completed" /> <effectiveTime value="" /> <value unit="%" xsi:type="PQ" value="8" /> < interpretationCode codeSystem="local" code="*" /> <referenceRange> <observationRange> <text>0-4</text> </ observationRange> </referenceRange> </observation> </ component> <component> <observation moodCode="EVN" classCode="OBS"> <templateId root="10.29.840.1.765624.07.02.22.4.2" /> <id nullFlavor="NA" /> <code codeSystem="local" code="HCT" displayName="HCT " /> <statusCode code="completed" /> <effectiveTime value= "" /> <value unit="%" xsi:type="PQ" value="34.7" /> <interpretationCode codeSystem="local" code="*" /> < referenceRange> <observationRange> <text>42.0-52.0</text > </observationRange> </referenceRange> </observation > </component> <component> <observation moodCode="EVN" classCode="OBS"> <templateId root="16.840.1.791706...22.4.2" /> <id nullFlavor="NA" /> <code codeSystem="local" code="HGB" displayName="HGB" /> <statusCode code="completed" /> < effectiveTime value="" /> <value unit="g/dL" xsi:type="PQ" value="11.8" /> <interpretationCode codeSystem="local" code="*" /> <referenceRange> <observationRange> <text>14.0- 18.0</text> </observationRange> </referenceRange> </ observation> </component> <component> <observation moodCode= "EVN" classCode="OBS"> <templateId root="16.840.1.933163...4.2 " /> <id nullFlavor="NA" /> <code codeSystem="local" code= "IMGA" displayName="Immature Granulocytes" /> <statusCode code= "completed" /> <effectiveTime value="228040781878" /> <value unit="%" xsi:type="PQ" value="0.2" /> <referenceRange> < observationRange> <text>0.0-1.0</text> </ observationRange> </referenceRange> </observation> </ component> <component> <observation moodCode="EVN" classCode="OBS"> <templateId root="10.29.840.1.479455.07.02.22.4.2" /> <id nullFlavor="NA" /> <code codeSystem="local" code="LYMPR" displayName= "Lymphocytes" /> <statusCode code="completed" /> < effectiveTime value="974877646219" /> <value unit="%" xsi:type="PQ " value="38" /> <referenceRange> <observationRange> <text>20-46</text> </observationRange> </ referenceRange> </observation> </component> <component> <observation moodCode="EVN" classCode="OBS"> <templateId root= "10.29.840.1.297970...4.2" /> <id nullFlavor="NA" /> < code codeSystem="local" code="MCH" displayName="MCH" /> <statusCode code="completed" /> <effectiveTime value="" /> < value unit="pg" xsi:type="PQ" value="30.8" /> <referenceRange> <observationRange> <text>27.0-32.0</text> </ observationRange> </referenceRange> </observation> </ component> <component> <observation moodCode="EVN" classCode="OBS"> <templateId root="2.16.840.1.327152.10...4.2" /> <id nullFlavor="NA" /> <code codeSystem="local" code="MCHC" displayName= "MCHC" /> <statusCode code="completed" /> <effectiveTime value ="" /> <value unit="g/dL" xsi:type="PQ" value="34.0" /> <referenceRange> <observationRange> <text>32.0- 36.0</text> </observationRange> </referenceRange> </ observation> </component> <component> <observation moodCode= "EVN" classCode="OBS"> <templateId root="2.16.840.1.822809.10...4.2 " /> <id nullFlavor="NA" /> <code codeSystem="local" code="MCV " displayName="MCV" /> <statusCode code="completed" /> < effectiveTime value="" /> <value unit="fL" xsi:type="PQ" value="90.6" /> <referenceRange> <observationRange> <text>82.0-99.0</text> </observationRange> </ referenceRange> </observation> </component> <component> <observation moodCode="EVN" classCode="OBS"> <templateId root= "16.840.1.582193.10.20.22.4.2" /> <id nullFlavor="NA" /> < code codeSystem="local" code="MONOR" displayName="Monocytes" /> < statusCode code="completed" /> <effectiveTime value="" /> <value unit="%" xsi:type="PQ" value="15" /> < interpretationCode codeSystem="local" code="*" /> <referenceRange> <observationRange> <text>4-11</text> </ observationRange> </referenceRange> </observation> </ component> <component> <observation moodCode="EVN" classCode="OBS"> <templateId root="10.29.840.1.288880.10..22.4.2" /> <id nullFlavor="NA" /> <code codeSystem="local" code="MPV" displayName="MPV " /> <statusCode code="completed" /> <effectiveTime value= "" /> <value unit="fL" xsi:type="PQ" value="10.7" /> <referenceRange> <observationRange> <text>9.4-12.3</ text> </observationRange> </referenceRange> </ observation> </component> <component> <observation moodCode= "EVN" classCode="OBS"> <templateId root="10.29.840.1.049926.10.20.22.4.2 " /> <id nullFlavor="NA" /> <code codeSystem="local" code= "SEGR" displayName="Neutrophils" /> <statusCode code="completed" /> <effectiveTime value="" /> <value unit="%" xsi: type="PQ" value="38" /> <interpretationCode codeSystem="local" code="* " /> <referenceRange> <observationRange> <text> 51-75</text> </observationRange> </referenceRange> </ observation> </component> <component> <observation moodCode= "EVN" classCode="OBS"> <templateId root="16.840.1.980584.10.20.22.4.2 " /> <id nullFlavor="NA" /> <code codeSystem="local" code= "NRBCA" displayName="Nucleated RBC Automated" /> <statusCode code= "completed" /> <effectiveTime value="161997708092" /> <value unit="/100WBC" xsi:type="PQ" value="0.0" /> <referenceRange> <observationRange> <text /> </observationRange> </referenceRange> </observation> </component> <component> <observation moodCode="EVN" classCode="OBS"> <templateId root= "10.29.840.1.500377.10...4.2" /> <id nullFlavor="NA" /> < code codeSystem="local" code="PLT" displayName="Platelet Count" /> < statusCode code="completed" /> <effectiveTime value="305077518175" /> <value unit="K/uL" xsi:type="PQ" value="129" /> < interpretationCode codeSystem="local" code="*" /> <referenceRange> <observationRange> <text>150-400</text> </ observationRange> </referenceRange> </observation> </ component> <component> <observation moodCode="EVN" classCode="OBS"> <templateId root="10.29.840.1.084982.10.20.22.4.2" /> <id nullFlavor="NA" /> <code codeSystem="local" code="RBC" displayName="RBC " /> <statusCode code="completed" /> <effectiveTime value= "826421937094" /> <value unit="10*6/uL" xsi:type="PQ" value="3.83" /> <interpretationCode codeSystem="local" code="*" /> < referenceRange> <observationRange> <text>4.60-6.20</text > </observationRange> </referenceRange> </observation > </component> <component> <observation moodCode="EVN" classCode="OBS"> <templateId root="2.16.840.1.774539.10.20.22.4.2" /> <id nullFlavor="NA" /> <code codeSystem="local" code="RDW" displayName="RDW" /> <statusCode code="completed" /> < effectiveTime value="" /> <value unit="%" xsi:type="PQ " value="13.9" /> <referenceRange> <observationRange> <text>11.5-14.5</text> </observationRange> </ referenceRange> </observation> </component> <component> <observation moodCode="EVN" classCode="OBS"> <templateId root= "2.16.840.1.238483.10.20.22.4.2" /> <id nullFlavor="NA" /> < code codeSystem="local" code="WBCIR" displayName="WBC" /> <statusCode code="completed" /> <effectiveTime value="727385412420" /> < value unit="K/uL" xsi:type="PQ" value="5.0" /> <referenceRange> <observationRange> <text>4.8-10.8</text> </ observationRange> </referenceRange> </observation> </ component> </organizer> </entry> <entry> <organizer moodCode="EVN" classCode="BATTERY"> <templateId root="10.29.840.1.722408.10..22.4.1" /> <id nullFlavor="NA" /> <code codeSystem="local" code="CMP" displayName ="Comprehensive Metabolic Panel (CMP)" /> <statusCode code="completed" /> <component> <observation moodCode="EVN" classCode="OBS"> < templateId root="840.1.407354.07.02.22.4.2" /> <id nullFlavor="NA " /> <code codeSystem="local" code="ALB" displayName="Albumin" /> <statusCode code="completed" /> <effectiveTime value="338299189172 " /> <value unit="g/dL" xsi:type="PQ" value="3.1" /> < interpretationCode codeSystem="local" code="*" /> <referenceRange> <observationRange> <text>3.5-4.8</text> </ observationRange> </referenceRange> </observation> </ component> <component> <observation moodCode="EVN" classCode="OBS"> <templateId root="10.29.840.1.667393.07.02.22.4.2" /> <id nullFlavor="NA" /> <code codeSystem="local" code="ALP" displayName= "Alkaline Phosphatase" /> <statusCode code="completed" /> < effectiveTime value="870336154655" /> <value unit="U/L" xsi:type="PQ" value="64" /> <referenceRange> <observationRange> <text>26-104</text> </observationRange> </referenceRange > </observation> </component> <component> <observation moodCode="EVN" classCode="OBS"> <templateId root= "10.29.840.1.945108.07.02.22.4.2" /> <id nullFlavor="NA" /> < code codeSystem="local" code="ALT" displayName="ALT (SGPT)" /> < statusCode code="completed" /> <effectiveTime value="" /> <value unit="U/L" xsi:type="PQ" value="45" /> <referenceRange > <observationRange> <text>17-63</text> </ observationRange> </referenceRange> </observation> </ component> <component> <observation moodCode="EVN" classCode="OBS"> <templateId root="216.840.1.222835.07.02.22.4.2" /> <id nullFlavor="NA" /> <code codeSystem="local" code="AGAP" displayName= "Anion Gap" /> <statusCode code="completed" /> <effectiveTime value="" /> <value unit="mEq/L" xsi:type="PQ" value="9" /> <referenceRange> <observationRange> <text>3-20 </text> </observationRange> </referenceRange> </ observation> </component> <component> <observation moodCode= "EVN" classCode="OBS"> <templateId root="216.840.1.499634....4.2 " /> <id nullFlavor="NA" /> <code codeSystem="local" code="AST " displayName="AST (SGOT)" /> <statusCode code="completed" /> <effectiveTime value="" /> <value unit="U/L" xsi:type="PQ" value="43" /> <interpretationCode codeSystem="local" code="*" /> <referenceRange> <observationRange> <text>15-41</ text> </observationRange> </referenceRange> </ observation> </component> <component> <observation moodCode= "EVN" classCode="OBS"> <templateId root="16.840.1.272330.22.4.2 " /> <id nullFlavor="NA" /> <code codeSystem="local" code= "BILIT" displayName="Bilirubin Total" /> <statusCode code="completed" / > <effectiveTime value="" /> <value unit="mg/dL" xsi:type="PQ" value="0.5" /> <referenceRange> < observationRange> <text>0.2-1.2</text> </ observationRange> </referenceRange> </observation> </ component> <component> <observation moodCode="EVN" classCode="OBS"> <templateId root="10.29.840.1.992339.07.02.22.4.2" /> <id nullFlavor="NA" /> <code codeSystem="local" code="BUN" displayName="BUN " /> <statusCode code="completed" /> <effectiveTime value= "" /> <value unit="mg/dL" xsi:type="PQ" value="21" /> <interpretationCode codeSystem="local" code="*" /> <referenceRange > <observationRange> <text>4-20</text> </ observationRange> </referenceRange> </observation> </ component> <component> <observation moodCode="EVN" classCode="OBS"> <templateId root="16.840.1.995779.22.4.2" /> <id nullFlavor="NA" /> <code codeSystem="local" code="CA" displayName= "Calcium" /> <statusCode code="completed" /> <effectiveTime value="" /> <value unit="mg/dL" xsi:type="PQ" value="8.0" / > <interpretationCode codeSystem="local" code="*" /> < referenceRange> <observationRange> <text>8.6-10.0</text > </observationRange> </referenceRange> </observation > </component> <component> <observation moodCode="EVN" classCode="OBS"> <templateId root="10.29.840.1.372789.10..22.4.2" /> <id nullFlavor="NA" /> <code codeSystem="local" code="CL" displayName="Chloride" /> <statusCode code="completed" /> < effectiveTime value="" /> <value unit="mEq/L" xsi:type="PQ " value="104" /> <referenceRange> <observationRange> <text>99-109</text> </observationRange> </ referenceRange> </observation> </component> <component> <observation moodCode="EVN" classCode="OBS"> <templateId root= "840.1.800135...4.2" /> <id nullFlavor="NA" /> < code codeSystem="local" code="CO2" displayName="CO2" /> <statusCode code="completed" /> <effectiveTime value="" /> < value unit="mEq/L" xsi:type="PQ" value="21" /> <interpretationCode codeSystem="local" code="*" /> <referenceRange> < observationRange> <text>22-32</text> </observationRange > </referenceRange> </observation> </component> < component> <observation moodCode="EVN" classCode="OBS"> < templateId root="10.29.840.1.488089.10.20.22.4.2" /> <id nullFlavor="NA " /> <code codeSystem="local" code="CREAT" displayName="Creatinine" /> <statusCode code="completed" /> <effectiveTime value= "" /> <value unit="mg/dL" xsi:type="PQ" value="0.96" /> <referenceRange> <observationRange> <text>0.64- 1.27</text> </observationRange> </referenceRange> </ observation> </component> <component> <observation moodCode= "EVN" classCode="OBS"> <templateId root="10.29.840.1.248401.10.20.22.4.2 " /> <id nullFlavor="NA" /> <code codeSystem="local" code= "GLOB" displayName="Globulin" /> <statusCode code="completed" /> <effectiveTime value="" /> <value unit="g/dL" xsi:type= "PQ" value="2.6" /> <referenceRange> <observationRange> <text>1.9-4.3</text> </observationRange> </ referenceRange> </observation> </component> <component> <observation moodCode="EVN" classCode="OBS"> <templateId root= "10.29.840.1.666294.10.20.22.4.2" /> <id nullFlavor="NA" /> < code codeSystem="local" code="GLU" displayName="Glucose" /> < statusCode code="completed" /> <effectiveTime value="" /> <value unit="mg/dL" xsi:type="PQ" value="90" /> < referenceRange> <observationRange> <text>70-100</text> </observationRange> </referenceRange> </observation> </component> <component> <observation moodCode="EVN" classCode ="OBS"> <templateId root="840.1.084636.10.20.22.4.2" /> < id nullFlavor="NA" /> <code codeSystem="local" code="K" displayName= "Potassium" /> <statusCode code="completed" /> <effectiveTime value="665314459555" /> <value unit="mEq/L" xsi:type="PQ" value="3.5" / > <interpretationCode codeSystem="local" code="*" /> < referenceRange> <observationRange> <text>3.6-5.1</text> </observationRange> </referenceRange> </observation > </component> <component> <observation moodCode="EVN" classCode="OBS"> <templateId root="840.1.067384.102022.4.2" /> <id nullFlavor="NA" /> <code codeSystem="local" code="TP" displayName="Protein" /> <statusCode code="completed" /> < effectiveTime value="175828383100" /> <value unit="g/dL" xsi:type="PQ" value="5.7" /> <interpretationCode codeSystem="local" code="*" /> <referenceRange> <observationRange> <text>6.1-7.9</ text> </observationRange> </referenceRange> </ observation> </component> <component> <observation moodCode= "EVN" classCode="OBS"> <templateId root="840.1.091737.10.2022.4.2 " /> <id nullFlavor="NA" /> <code codeSystem="local" code="NA " displayName="Sodium" /> <statusCode code="completed" /> < effectiveTime value="944545115146" /> <value unit="mEq/L" xsi:type="PQ " value="134" /> <interpretationCode codeSystem="local" code="*" /> <referenceRange> <observationRange> <text>136-144 </text> </observationRange> </referenceRange> </ observation> </component> </organizer> </entry> <entry> <organizer moodCode="EVN" classCode="BATTERY"> <templateId root= "10.29.840.1.585795.10..22.4.1" /> <id nullFlavor="NA" /> <code codeSystem="local" code="GFR" displayName="eGFR" /> <statusCode code= "completed" /> <component> <observation moodCode="EVN" classCode= "OBS"> <templateId root="840.1.873783.07.02.22.4.2" /> < id nullFlavor="NA" /> <code codeSystem="local" code="GFR" displayName= "eGFR" /> <statusCode code="completed" /> <effectiveTime value ="051256826123" /> <value unit="mL/min" xsi:type="PQ" value=">60" / > <referenceRange> <observationRange> <text>&gt ;60</text> </observationRange> </referenceRange> </ observation> </component> </organizer> </entry> <entry> <organizer moodCode="EVN" classCode="BATTERY"> <templateId root= "840.1.430212.22.4.1" /> <id nullFlavor="NA" /> <code codeSystem="local" code="TSHR" displayName="TSH with Reflex Free T4" /> < statusCode code="completed" /> <component> <observation moodCode= "EVN" classCode="OBS"> <templateId root="10.29.840.1.377796.22.4.2 " /> <id nullFlavor="NA" /> <code codeSystem="local" code= "TSHR" displayName="TSH with Reflex Free T4" /> <statusCode code= "completed" /> <effectiveTime value="444394225027" /> <value unit="uIU/mL" xsi:type="PQ" value="3.17" /> <referenceRange> <observationRange> <text>0.35-4.94</text> </ observationRange> </referenceRange> </observation> </ component> </organizer> </entry> <entry> <organizer moodCode="EVN" classCode="BATTERY"> <templateId root="216.840.1.073204.10..22.4.1" /> <id nullFlavor="NA" /> <code codeSystem="local" code="LACTN" displayName="Lactic Acid NPT" /> <statusCode code="completed" /> < component> <observation moodCode="EVN" classCode="OBS"> < templateId root="216.840.1.252691.10..22.4.2" /> <id nullFlavor="NA " /> <code codeSystem="local" code="LACTN" displayName="Lactic Acid NPT " /> <statusCode code="completed" /> <effectiveTime value= "051951460835" /> <value unit="mEq/L" xsi:type="PQ" value="1.1" /> <referenceRange> <observationRange> <text>0.5-2.0< /text> </observationRange> </referenceRange> </ observation> </component> </organizer> </entry> <entry> <organizer moodCode="EVN" classCode="BATTERY"> <templateId root= "216.840.1.535442.10..22.4.1" /> <id nullFlavor="NA" /> <code codeSystem="local" code="CBCD" displayName="CBC W/DIFF" /> <statusCode code ="completed" /> <component> <observation moodCode="EVN" classCode= "OBS"> <templateId root="10.29.840.1.389228.10..22.4.2" /> < id nullFlavor="NA" /> <code codeSystem="local" code="EO#" displayName= "EOSINOPHIL #" /> <statusCode code="completed" /> < effectiveTime value="156392576595" /> <value unit="k/cumm" xsi:type="PQ " value="0.4" /> <referenceRange> <observationRange> <text>0.1-0.5</text> </observationRange> </ referenceRange> </observation> </component> <component> <observation moodCode="EVN" classCode="OBS"> <templateId root= "840.1.684208.07.02.22.4.2" /> <id nullFlavor="NA" /> < code codeSystem="local" code="EO%" displayName="EOSINOPHIL %" /> <statusCode code="completed" /> <effectiveTime value="496453954022" /> <value unit="%" xsi:type="PQ" value="5" /> < interpretationCode codeSystem="local" code="*" /> <referenceRange> <observationRange> <text>2-4</text> </ observationRange> </referenceRange> </observation> </ component> <component> <observation moodCode="EVN" classCode="OBS"> <templateId root="10.29.840.1.364369.10.22.4.2" /> <id nullFlavor="NA" /> <code codeSystem="local" code="GR#" displayName= "GRANULOCYTE #" /> <statusCode code="completed" /> < effectiveTime value="208172633187" /> <value unit="k/cumm" xsi:type="PQ " value="4.2" /> <referenceRange> <observationRange> <text>2.0-9.0</text> </observationRange> </ referenceRange> </observation> </component> <component> <observation moodCode="EVN" classCode="OBS"> <templateId root= "10.29.840.1.009200.10..4.2" /> <id nullFlavor="NA" /> < code codeSystem="local" code="GR%" displayName="GRANULOCYTE %" /> <statusCode code="completed" /> <effectiveTime value="836263591278 " /> <value unit="%" xsi:type="PQ" value="56" /> < referenceRange> <observationRange> <text>50-75</text> </observationRange> </referenceRange> </observation> </component> <component> <observation moodCode="EVN" classCode= "OBS"> <templateId root="10.29.840.1.212325.10..4.2" /> < id nullFlavor="NA" /> <code codeSystem="local" code="LY#" displayName= "LYMPHOCYTE #" /> <statusCode code="completed" /> < effectiveTime value="595286203703" /> <value unit="k/cumm" xsi:type="PQ " value="2.1" /> <referenceRange> <observationRange> <text>1.0-4.0</text> </observationRange> </ referenceRange> </observation> </component> <component> <observation moodCode="EVN" classCode="OBS"> <templateId root= "10.29.840.1.850571.07.02.22.4.2" /> <id nullFlavor="NA" /> < code codeSystem="local" code="LY%" displayName="LYMPHOCYTE %" /> <statusCode code="completed" /> <effectiveTime value="806822772012" /> <value unit="%" xsi:type="PQ" value="28" /> < referenceRange> <observationRange> <text>20-30</text> </observationRange> </referenceRange> </observation> </component> <component> <observation moodCode="EVN" classCode= "OBS"> <templateId root="2.16.840.1.541110.07.02.224.2" /> < id nullFlavor="NA" /> <code codeSystem="local" code="MCH" displayName= "MEAN CELL HGB" /> <statusCode code="completed" /> < effectiveTime value="414351776761" /> <value unit="pg" xsi:type="PQ" value="30.2" /> <referenceRange> <observationRange> <text>27.0-33.0</text> </observationRange> </ referenceRange> </observation> </component> <component> <observation moodCode="EVN" classCode="OBS"> <templateId root= "2.16.840.1.239717.07.02.22.4.2" /> <id nullFlavor="NA" /> < code codeSystem="local" code="MCHC" displayName="MEAN CELL HGB CONCENTRATION" / > <statusCode code="completed" /> <effectiveTime value= "234734594594" /> <value unit="g/dL" xsi:type="PQ" value="33.8" /> <referenceRange> <observationRange> <text>32.0- 37.0</text> </observationRange> </referenceRange> </ observation> </component> <component> <observation moodCode= "EVN" classCode="OBS"> <templateId root="840.1.382486.07.02.22.4.2 " /> <id nullFlavor="NA" /> <code codeSystem="local" code="MCV " displayName="MEAN CELL VOLUME" /> <statusCode code="completed" /> <effectiveTime value="" /> <value unit="fl" xsi:type ="PQ" value="89.3" /> <referenceRange> <observationRange> <text>80.0-100.0</text> </observationRange> </ referenceRange> </observation> </component> <component> <observation moodCode="EVN" classCode="OBS"> <templateId root= "840.1.353264.07.02.22.4.2" /> <id nullFlavor="NA" /> < code codeSystem="local" code="MO#" displayName="MONOCYTE #" /> < statusCode code="completed" /> <effectiveTime value="" /> <value unit="k/cumm" xsi:type="PQ" value="0.8" /> < referenceRange> <observationRange> <text>0.1-1.0</text> </observationRange> </referenceRange> </observation > </component> <component> <observation moodCode="EVN" classCode="OBS"> <templateId root="840.1.332187.1022.4.2" /> <id nullFlavor="NA" /> <code codeSystem="local" code="MO% " displayName="MONOCYTE %" /> <statusCode code="completed" /> <effectiveTime value="" /> <value unit="%" xsi: type="PQ" value="11" /> <interpretationCode codeSystem="local" code="* " /> <referenceRange> <observationRange> <text> 4-6</text> </observationRange> </referenceRange> </ observation> </component> <component> <observation moodCode= "EVN" classCode="OBS"> <templateId root="16.840.1.412266.10..22.4.2 " /> <id nullFlavor="NA" /> <code codeSystem="local" code= "MPVT" displayName="MEAN PLATELET VOLUME" /> <statusCode code= "completed" /> <effectiveTime value="222170629266" /> <value unit="fl" xsi:type="PQ" value="9.7" /> <referenceRange> < observationRange> <text>8.5-10.9</text> </ observationRange> </referenceRange> </observation> </ component> <component> <observation moodCode="EVN" classCode="OBS"> <templateId root="840.1.490715.07.02.22.4.2" /> <id nullFlavor="NA" /> <code codeSystem="local" code="RBC" displayName=" RED BLOOD CELL" /> <statusCode code="completed" /> < effectiveTime value="592117513844" /> <value unit="m/cumm" xsi:type="PQ " value="4.41" /> <referenceRange> <observationRange> <text>4.00-6.00</text> </observationRange> </ referenceRange> </observation> </component> <component> <observation moodCode="EVN" classCode="OBS"> <templateId root= "10.29.840.1.143544.10.20.22.4.2" /> <id nullFlavor="NA" /> < code codeSystem="local" code="RDW" displayName="RED CELL DISTRIBUTION WIDTH" /> <statusCode code="completed" /> <effectiveTime value= "610584595921" /> <value unit="%" xsi:type="PQ" value="13.7" /> <referenceRange> <observationRange> <text>11.0- 15.6</text> </observationRange> </referenceRange> </ observation> </component> <component> <observation moodCode= "EVN" classCode="OBS"> <templateId root="216.840.1.323065.10.20.22.4.2 " /> <id nullFlavor="NA" /> <code codeSystem="local" code="WBC " displayName="WHITE BLOOD CELL" /> <statusCode code="completed" /> <effectiveTime value="528007561103" /> <value unit="k/cumm" xsi: type="PQ" value="7.6" /> <referenceRange> <observationRange > <text>5.0-10.0</text> </observationRange> </ referenceRange> </observation> </component> <component> <observation moodCode="EVN" classCode="OBS"> <templateId root= "16.840.1.202895.10.20.22.4.2" /> <id nullFlavor="NA" /> < code codeSystem="local" code="HGBT" displayName="HEMOGLOBIN" /> < statusCode code="completed" /> <effectiveTime value="746836656673" /> <value unit="gm/dL" xsi:type="PQ" value="13.3" /> < interpretationCode codeSystem="local" code="*" /> <referenceRange> <observationRange> <text>14.0-18.0</text> </ observationRange> </referenceRange> </observation> </ component> <component> <observation moodCode="EVN" classCode="OBS"> <templateId root="16.840.1.963618.10..4.2" /> <id nullFlavor="NA" /> <code codeSystem="local" code="HCTT" displayName= "HEMATOCRIT" /> <statusCode code="completed" /> < effectiveTime value="470157306148" /> <value unit="%" xsi:type="PQ " value="39.4" /> <interpretationCode codeSystem="local" code="*" /> <referenceRange> <observationRange> <text>40.0- 54.0</text> </observationRange> </referenceRange> </ observation> </component> <component> <observation moodCode= "EVN" classCode="OBS"> <templateId root="10.29.840.1.617623.07.02.224.2 " /> <id nullFlavor="NA" /> <code codeSystem="local" code= "NRBC%" displayName="NRBC %" /> <statusCode code="completed" / > <effectiveTime value="" /> <value unit="/100WBC " xsi:type="PQ" value="0.0" /> <referenceRange> < observationRange> <text>0.0-0.0</text> </ observationRange> </referenceRange> </observation> </ component> <component> <observation moodCode="EVN" classCode="OBS"> <templateId root="216.840.1.494789.07.02.22.4.2" /> <id nullFlavor="NA" /> <code codeSystem="local" code="NRBC#" displayName= "NRBC #" /> <statusCode code="completed" /> <effectiveTime value="" /> <value unit="k/cumm" xsi:type="PQ" value="0.00 " /> <interpretationCode codeSystem="local" code="*" /> < referenceRange> <observationRange> <text>0.03-0.11</text > </observationRange> </referenceRange> </observation > </component> <component> <observation moodCode="EVN" classCode="OBS"> <templateId root="216.840.1.206316.10..4.2" /> <id nullFlavor="NA" /> <code codeSystem="local" code="PLTT" displayName="PLATELET COUNT" /> <statusCode code="completed" /> <effectiveTime value="288278306419" /> <value unit="k/cumm" xsi:type ="PQ" value="156" /> <referenceRange> <observationRange> <text>150-400</text> </observationRange> </ referenceRange> </observation> </component> <component> <observation moodCode="EVN" classCode="OBS"> <templateId root= "216.840.1.235274.07.02.22.4.2" /> <id nullFlavor="NA" /> < code codeSystem="local" code="IG%" displayName="IMMATURE GRANULOCYTE %" /> <statusCode code="completed" /> <effectiveTime value= "560729640363" /> <value unit="%" xsi:type="PQ" value="0.4" /> <referenceRange> <observationRange> <text>0.0-0.6< /text> </observationRange> </referenceRange> </ observation> </component> <component> <observation moodCode= "EVN" classCode="OBS"> <templateId root="216.840.1.353549.10..4.2 " /> <id nullFlavor="NA" /> <code codeSystem="local" code="IG# " displayName="IMMATURE GRANULOCYTE #" /> <statusCode code="completed" /> <effectiveTime value="587668805834" /> <value unit="k/cumm " xsi:type="PQ" value="0.03" /> <referenceRange> < observationRange> <text>0.00-0.09</text> </ observationRange> </referenceRange> </observation> </ component> <component> <observation moodCode="EVN" classCode="OBS"> <templateId root="840.1.017666.07.02.22.4.2" /> <id nullFlavor="NA" /> <code codeSystem="local" code="IPFT" displayName= "IMMATURE PLATELET FRACTION" /> <statusCode code="completed" /> <effectiveTime value="552320857950" /> <value unit="%" xsi:type= "PQ" value="3.7" /> <referenceRange> <observationRange> <text>1.1-6.1</text> </observationRange> </ referenceRange> </observation> </component> </organizer> </entry > <entry> <organizer moodCode="EVN" classCode="BATTERY"> <templateId root="840.1.808320.22.4.1" /> <id nullFlavor="NA" /> <code codeSystem="local" code="METABC" displayName="METABOLIC PANEL, COMPREHN" /> <statusCode code="completed" /> <component> <observation moodCode= "EVN" classCode="OBS"> <templateId root="10.29.840.1.094176.22.4.2 " /> <id nullFlavor="NA" /> <code codeSystem="local" code="K" displayName="POTASSIUM" /> <statusCode code="completed" /> < effectiveTime value="922047417037" /> <value unit="mmol/L" xsi:type="PQ " value="3.6" /> <referenceRange> <observationRange> <text>3.5-5.3</text> </observationRange> </ referenceRange> </observation> </component> <component> <observation moodCode="EVN" classCode="OBS"> <templateId root= "10.29.840.1.950429.10..4.2" /> <id nullFlavor="NA" /> < code codeSystem="local" code="eGFR" displayName="EST GFR (MDRD)" /> < statusCode code="completed" /> <effectiveTime value="047468917271" /> <value unit="mL/min" xsi:type="PQ" value="> 60" /> < referenceRange> <observationRange> <text>> 59</text> </observationRange> </referenceRange> </observation > </component> <component> <observation moodCode="EVN" classCode="OBS"> <templateId root="10.29.840.1.721806...4.2" /> <id nullFlavor="NA" /> <code codeSystem="local" code="GAP" displayName="ANION GAP" /> <statusCode code="completed" /> < effectiveTime value="545845973873" /> <value unit="mmol/L" xsi:type="PQ " value="11" /> <referenceRange> <observationRange> <text>5-15</text> </observationRange> </referenceRange > </observation> </component> <component> <observation moodCode="EVN" classCode="OBS"> <templateId root= "10.29.840.1.012799.07.02.22.4.2" /> <id nullFlavor="NA" /> < code codeSystem="local" code="eCrCl" displayName="EST CrCl (CG)" /> < statusCode code="completed" /> <effectiveTime value="855781315800" /> <value unit="mL/min" xsi:type="PQ" value="> 60" /> < referenceRange> <observationRange> <text>> 59</text> </observationRange> </referenceRange> </observation > </component> <component> <observation moodCode="EVN" classCode="OBS"> <templateId root="2.16.840.1.675715...4.2" /> <id nullFlavor="NA" /> <code codeSystem="local" code="GLU" displayName="GLUCOSE" /> <statusCode code="completed" /> < effectiveTime value="599573660414" /> <value unit="mg/dL" xsi:type="PQ " value="82" /> <referenceRange> <observationRange> <text>70-99</text> </observationRange> </ referenceRange> </observation> </component> <component> <observation moodCode="EVN" classCode="OBS"> <templateId root= "2.16.840.1.322144.10..4.2" /> <id nullFlavor="NA" /> < code codeSystem="local" code="CA" displayName="CALCIUM" /> <statusCode code="completed" /> <effectiveTime value="261547675259" /> < value unit="mg/dL" xsi:type="PQ" value="8.5" /> <referenceRange> <observationRange> <text>8.5-10.1</text> </ observationRange> </referenceRange> </observation> </ component> <component> <observation moodCode="EVN" classCode="OBS"> <templateId root="216.840.1.822973.10.20.22.4.2" /> <id nullFlavor="NA" /> <code codeSystem="local" code="BUN" displayName= "BLOOD UREA NITROGEN" /> <statusCode code="completed" /> < effectiveTime value="323329418776" /> <value unit="mg/dL" xsi:type="PQ " value="14" /> <referenceRange> <observationRange> <text>7-20</text> </observationRange> </referenceRange > </observation> </component> <component> <observation moodCode="EVN" classCode="OBS"> <templateId root= "216.840.1.027811.10..22.4.2" /> <id nullFlavor="NA" /> < code codeSystem="local" code="CREAT" displayName="CREATININE" /> < statusCode code="completed" /> <effectiveTime value="220227436001" /> <value unit="mg/dL" xsi:type="PQ" value="1.0" /> < referenceRange> <observationRange> <text>0.7-1.3</text> </observationRange> </referenceRange> </observation > </component> <component> <observation moodCode="EVN" classCode="OBS"> <templateId root="216.840.1.111665.10.20.22.4.2" /> <id nullFlavor="NA" /> <code codeSystem="local" code="NA" displayName="SODIUM" /> <statusCode code="completed" /> < effectiveTime value="222512005448" /> <value unit="mmol/L" xsi:type="PQ " value="138" /> <referenceRange> <observationRange> <text>135-148</text> </observationRange> </ referenceRange> </observation> </component> <component> <observation moodCode="EVN" classCode="OBS"> <templateId root= "216.840.1.274748.10.22.4.2" /> <id nullFlavor="NA" /> < code codeSystem="local" code="CL" displayName="CHLORIDE" /> < statusCode code="completed" /> <effectiveTime value="518556303206" /> <value unit="mmol/L" xsi:type="PQ" value="102" /> < referenceRange> <observationRange> <text>98-110</text> </observationRange> </referenceRange> </observation> </component> <component> <observation moodCode="EVN" classCode ="OBS"> <templateId root="216.840.1.330339.07.02.22.4.2" /> < id nullFlavor="NA" /> <code codeSystem="local" code="AST" displayName= "AST/SGOT" /> <statusCode code="completed" /> <effectiveTime value="103654517699" /> <value unit="Units/L" xsi:type="PQ" value="37" /> <referenceRange> <observationRange> <text>10 -37</text> </observationRange> </referenceRange> </ observation> </component> <component> <observation moodCode= "EVN" classCode="OBS"> <templateId root="216.840.1.693955.10.22.4.2 " /> <id nullFlavor="NA" /> <code codeSystem="local" code="ALT " displayName="ALT/SGPT" /> <statusCode code="completed" /> < effectiveTime value="052783223348" /> <value unit="Units/L" xsi:type= "PQ" value="38" /> <referenceRange> <observationRange> <text>< 66</text> </observationRange> </ referenceRange> </observation> </component> <component> <observation moodCode="EVN" classCode="OBS"> <templateId root= "10.29.840.1.671425.10..4.2" /> <id nullFlavor="NA" /> < code codeSystem="local" code="CO2" displayName="CARBON DIOXIDE" /> < statusCode code="completed" /> <effectiveTime value="553223910654" /> <value unit="mmol/L" xsi:type="PQ" value="25" /> < referenceRange> <observationRange> <text>21-32</text> </observationRange> </referenceRange> </observation> </component> <component> <observation moodCode="EVN" classCode= "OBS"> <templateId root="10.29.840.1.207351.10.4.2" /> < id nullFlavor="NA" /> <code codeSystem="local" code="TP" displayName= "TOTAL PROTEIN" /> <statusCode code="completed" /> < effectiveTime value="161106177656" /> <value unit="gm/dL" xsi:type="PQ " value="7.3" /> <referenceRange> <observationRange> <text>6.4-8.2</text> </observationRange> </ referenceRange> </observation> </component> <component> <observation moodCode="EVN" classCode="OBS"> <templateId root= "10.29.840.1.952169.10.4.2" /> <id nullFlavor="NA" /> < code codeSystem="local" code="ALB" displayName="ALBUMIN" /> < statusCode code="completed" /> <effectiveTime value="964007840724" /> <value unit="gm/dL" xsi:type="PQ" value="3.4" /> < referenceRange> <observationRange> <text>3.4-5.0</text> </observationRange> </referenceRange> </observation > </component> <component> <observation moodCode="EVN" classCode="OBS"> <templateId root="216.840.1.633951.10..4.2" /> <id nullFlavor="NA" /> <code codeSystem="local" code="BILTOT" displayName="BILI TOTAL" /> <statusCode code="completed" /> < effectiveTime value="458380873066" /> <value unit="mg/dL" xsi:type="PQ " value="0.5" /> <referenceRange> <observationRange> <text>0.0-1.0</text> </observationRange> </ referenceRange> </observation> </component> <component> <observation moodCode="EVN" classCode="OBS"> <templateId root= "216.840.1.619253.10..4.2" /> <id nullFlavor="NA" /> < code codeSystem="local" code="ALKP" displayName="ALKALINE PHOSPHATASE TOTAL" /> <statusCode code="completed" /> <effectiveTime value= "[id number]" /> <value unit="IU/L" xsi:type="PQ" value="85" /> <referenceRange> <observationRange> <text>45-117</ text> </observationRange> </referenceRange> </ observation> </component> </organizer> </entry> <entry> <organizer moodCode="EVN" classCode="BATTERY"> <templateId root= "2.16.840.1.168650...4.1" /> <id nullFlavor="NA" /> <code codeSystem="local" code="LACTG" displayName="LACTIC ACID" /> <statusCode code="completed" /> <component> <observation moodCode="EVN" classCode="OBS"> <templateId root="16.840.1.208398.10...4.2" /> <id nullFlavor="NA" /> <code codeSystem="local" code="LACT" displayName="LACTIC ACID" /> <statusCode code="completed" /> < effectiveTime value="527993189234" /> <value unit="mmol/L" xsi:type="PQ " value="1.6" /> <referenceRange> <observationRange> <text>0.5-2.0</text> </observationRange> </ referenceRange> </observation> </component> </organizer> </entry > <entry> <organizer moodCode="EVN" classCode="BATTERY"> <templateId root="10.29.840.1.886060.10..4.1" /> <id nullFlavor="NA" /> <code codeSystem="local" code="CBCD" displayName="CBC W/DIFF" /> <statusCode code ="completed" /> <component> <observation moodCode="EVN" classCode= "OBS"> <templateId root="10.29.840.1.863420.10..4.2" /> < id nullFlavor="NA" /> <code codeSystem="local" code="CBCCOM" displayName="COMMENT" /> <statusCode code="completed" /> < effectiveTime value="[id number]" /> <value unit="" xsi:type="PQ" value="REVIEWED" /> <referenceRange> <observationRange> <text /> </observationRange> </referenceRange> </observation> </component> <component> <observation moodCode="EVN" classCode="OBS"> <templateId root= "16.840.1.361900.07.02.22.4.2" /> <id nullFlavor="NA" /> < code codeSystem="local" code="EO#" displayName="EOSINOPHIL #" /> < statusCode code="completed" /> <effectiveTime value="" /> <value unit="k/cumm" xsi:type="PQ" value="0.1" /> < referenceRange> <observationRange> <text>0.1-0.5</text> </observationRange> </referenceRange> </observation > </component> <component> <observation moodCode="EVN" classCode="OBS"> <templateId root="16.840.1.995575.07.02.22.4.2" /> <id nullFlavor="NA" /> <code codeSystem="local" code="EO% " displayName="EOSINOPHIL %" /> <statusCode code="completed" /> <effectiveTime value="" /> <value unit="%" xsi: type="PQ" value="1" /> <interpretationCode codeSystem="local" code="*" /> <referenceRange> <observationRange> <text>2- 4</text> </observationRange> </referenceRange> </ observation> </component> <component> <observation moodCode= "EVN" classCode="OBS"> <templateId root="10.29.840.1.394747.07.02.22.4.2 " /> <id nullFlavor="NA" /> <code codeSystem="local" code="GR# " displayName="GRANULOCYTE #" /> <statusCode code="completed" /> <effectiveTime value="" /> <value unit="k/cumm" xsi: type="PQ" value="8.9" /> <referenceRange> <observationRange > <text>2.0-9.0</text> </observationRange> </ referenceRange> </observation> </component> <component> <observation moodCode="EVN" classCode="OBS"> <templateId root= "216.840.1.507238.10...4.2" /> <id nullFlavor="NA" /> < code codeSystem="local" code="GR%" displayName="GRANULOCYTE %" /> <statusCode code="completed" /> <effectiveTime value=" " /> <value unit="%" xsi:type="PQ" value="72" /> < referenceRange> <observationRange> <text>50-75</text> </observationRange> </referenceRange> </observation> </component> <component> <observation moodCode="EVN" classCode= "OBS"> <templateId root="10.29.840.1.821555.07.02.22.4.2" /> < id nullFlavor="NA" /> <code codeSystem="local" code="LY#" displayName= "LYMPHOCYTE #" /> <statusCode code="completed" /> < effectiveTime value="" /> <value unit="k/cumm" xsi:type="PQ " value="1.8" /> <referenceRange> <observationRange> <text>1.0-4.0</text> </observationRange> </ referenceRange> </observation> </component> <component> <observation moodCode="EVN" classCode="OBS"> <templateId root= "10.29.840.1.970660.10...4.2" /> <id nullFlavor="NA" /> < code codeSystem="local" code="LY%" displayName="LYMPHOCYTE %" /> <statusCode code="completed" /> <effectiveTime value="" /> <value unit="%" xsi:type="PQ" value="15" /> < interpretationCode codeSystem="local" code="*" /> <referenceRange> <observationRange> <text>20-30</text> </ observationRange> </referenceRange> </observation> </ component> <component> <observation moodCode="EVN" classCode="OBS"> <templateId root="2.16.840.1.074505.10...4.2" /> <id nullFlavor="NA" /> <code codeSystem="local" code="MCH" displayName= "MEAN CELL HGB" /> <statusCode code="completed" /> < effectiveTime value="" /> <value unit="pg" xsi:type="PQ" value="29.5" /> <referenceRange> <observationRange> <text>27.0-33.0</text> </observationRange> </ referenceRange> </observation> </component> <component> <observation moodCode="EVN" classCode="OBS"> <templateId root= "2.16.840.1.198044.10...4.2" /> <id nullFlavor="NA" /> < code codeSystem="local" code="MCHC" displayName="MEAN CELL HGB CONCENTRATION" / > <statusCode code="completed" /> <effectiveTime value= "" /> <value unit="g/dL" xsi:type="PQ" value="33.0" /> <referenceRange> <observationRange> <text>32.0- 37.0</text> </observationRange> </referenceRange> </ observation> </component> <component> <observation moodCode= "EVN" classCode="OBS"> <templateId root="10.29.840.1.199282.10.2022.4.2 " /> <id nullFlavor="NA" /> <code codeSystem="local" code="MCV " displayName="MEAN CELL VOLUME" /> <statusCode code="completed" /> <effectiveTime value="" /> <value unit="fl" xsi:type ="PQ" value="89.3" /> <referenceRange> <observationRange> <text>80.0-100.0</text> </observationRange> </ referenceRange> </observation> </component> <component> <observation moodCode="EVN" classCode="OBS"> <templateId root= "840.1.590157.10.4.2" /> <id nullFlavor="NA" /> < code codeSystem="local" code="MO#" displayName="MONOCYTE #" /> < statusCode code="completed" /> <effectiveTime value="" /> <value unit="k/cumm" xsi:type="PQ" value="1.5" /> < interpretationCode codeSystem="local" code="*" /> <referenceRange> <observationRange> <text>0.1-1.0</text> </ observationRange> </referenceRange> </observation> </ component> <component> <observation moodCode="EVN" classCode="OBS"> <templateId root="10.29.840.1.288885.10.22.4.2" /> <id nullFlavor="NA" /> <code codeSystem="local" code="MO%" displayName= "MONOCYTE %" /> <statusCode code="completed" /> < effectiveTime value="" /> <value unit="%" xsi:type="PQ " value="12" /> <interpretationCode codeSystem="local" code="*" /> <referenceRange> <observationRange> <text>4-6</ text> </observationRange> </referenceRange> </ observation> </component> <component> <observation moodCode= "EVN" classCode="OBS"> <templateId root="16.840.1.806074.10..22.4.2 " /> <id nullFlavor="NA" /> <code codeSystem="local" code= "MPVT" displayName="MEAN PLATELET VOLUME" /> <statusCode code= "completed" /> <effectiveTime value="" /> <value unit="fl" xsi:type="PQ" value="9.9" /> <referenceRange> < observationRange> <text>8.5-10.9</text> </ observationRange> </referenceRange> </observation> </ component> <component> <observation moodCode="EVN" classCode="OBS"> <templateId root="10.29.840.1.709562...4.2" /> <id nullFlavor="NA" /> <code codeSystem="local" code="RBC" displayName=" RED BLOOD CELL" /> <statusCode code="completed" /> < effectiveTime value="" /> <value unit="m/cumm" xsi:type="PQ " value="4.38" /> <referenceRange> <observationRange> <text>4.00-6.00</text> </observationRange> </ referenceRange> </observation> </component> <component> <observation moodCode="EVN" classCode="OBS"> <templateId root= "10.29.840.1.494664.10..22.4.2" /> <id nullFlavor="NA" /> < code codeSystem="local" code="RDW" displayName="RED CELL DISTRIBUTION WIDTH" /> <statusCode code="completed" /> <effectiveTime value= "" /> <value unit="%" xsi:type="PQ" value="13.2" /> <referenceRange> <observationRange> <text>11.0- 15.6</text> </observationRange> </referenceRange> </ observation> </component> <component> <observation moodCode= "EVN" classCode="OBS"> <templateId root="216.840.1.599175.10..22.4.2 " /> <id nullFlavor="NA" /> <code codeSystem="local" code="WBC " displayName="WHITE BLOOD CELL" /> <statusCode code="completed" /> <effectiveTime value="" /> <value unit="k/cumm" xsi: type="PQ" value="12.3" /> <interpretationCode codeSystem="local" code= "*" /> <referenceRange> <observationRange> < text>5.0-10.0</text> </observationRange> </referenceRange> </observation> </component> <component> <observation moodCode="EVN" classCode="OBS"> <templateId root= "16.840.1.932203.10..22.4.2" /> <id nullFlavor="NA" /> < code codeSystem="local" code="HGBT" displayName="HEMOGLOBIN" /> < statusCode code="completed" /> <effectiveTime value="" /> <value unit="gm/dL" xsi:type="PQ" value="12.9" /> < interpretationCode codeSystem="local" code="*" /> <referenceRange> <observationRange> <text>14.0-18.0</text> </ observationRange> </referenceRange> </observation> </ component> <component> <observation moodCode="EVN" classCode="OBS"> <templateId root="10.29.840.1.889300.10.4.2" /> <id nullFlavor="NA" /> <code codeSystem="local" code="HCTT" displayName= "HEMATOCRIT" /> <statusCode code="completed" /> < effectiveTime value="" /> <value unit="%" xsi:type="PQ " value="39.1" /> <interpretationCode codeSystem="local" code="*" /> <referenceRange> <observationRange> <text>40.0- 54.0</text> </observationRange> </referenceRange> </ observation> </component> <component> <observation moodCode= "EVN" classCode="OBS"> <templateId root="10.29.840.1.894851.07.02.224.2 " /> <id nullFlavor="NA" /> <code codeSystem="local" code= "NRBC%" displayName="NRBC %" /> <statusCode code="completed" / > <effectiveTime value="" /> <value unit="/100WBC " xsi:type="PQ" value="0.0" /> <referenceRange> < observationRange> <text>0.0-0.0</text> </ observationRange> </referenceRange> </observation> </ component> <component> <observation moodCode="EVN" classCode="OBS"> <templateId root="16.840.1.389037.07.02.22.4.2" /> <id nullFlavor="NA" /> <code codeSystem="local" code="NRBC#" displayName= "NRBC #" /> <statusCode code="completed" /> <effectiveTime value="" /> <value unit="k/cumm" xsi:type="PQ" value="0.00 " /> <interpretationCode codeSystem="local" code="*" /> < referenceRange> <observationRange> <text>0.03-0.11</text > </observationRange> </referenceRange> </observation > </component> <component> <observation moodCode="EVN" classCode="OBS"> <templateId root="216.840.1.529903.10..22.4.2" /> <id nullFlavor="NA" /> <code codeSystem="local" code="PLTT" displayName="PLATELET COUNT" /> <statusCode code="completed" /> <effectiveTime value="" /> <value unit="k/cumm" xsi:type ="PQ" value="167" /> <referenceRange> <observationRange> <text>150-400</text> </observationRange> </ referenceRange> </observation> </component> <component> <observation moodCode="EVN" classCode="OBS"> <templateId root= "216.840.1.553365.10..22.4.2" /> <id nullFlavor="NA" /> < code codeSystem="local" code="IG%" displayName="IMMATURE GRANULOCYTE %" /> <statusCode code="completed" /> <effectiveTime value= "" /> <value unit="%" xsi:type="PQ" value="0.5" /> <referenceRange> <observationRange> <text>0.0-0.6< /text> </observationRange> </referenceRange> </ observation> </component> <component> <observation moodCode= "EVN" classCode="OBS"> <templateId root="216.840.1.731157.10..22.4.2 " /> <id nullFlavor="NA" /> <code codeSystem="local" code="IG# " displayName="IMMATURE GRANULOCYTE #" /> <statusCode code="completed" /> <effectiveTime value="060496734539" /> <value unit="k/cumm " xsi:type="PQ" value="0.06" /> <referenceRange> < observationRange> <text>0.00-0.09</text> </ observationRange> </referenceRange> </observation> </ component> </organizer> </entry> <entry> <organizer moodCode="EVN" classCode="BATTERY"> <templateId root="2.16.840.1.444150.10.20.22.4.1" /> <id nullFlavor="NA" /> <code codeSystem="local" code="BC" displayName= "BLOOD CULTURE" /> <statusCode code="completed" /> <component> <observation moodCode="EVN" classCode="OBS"> <templateId root= "2.16.840.1.540029.10.20.22.4.2" /> <id nullFlavor="NA" /> < code codeSystem="local" code="MB" displayName="Microbiology" /> < statusCode code="completed" /> <effectiveTime value="466167331322" /> <value xsi:type="ST" value="<pre><b>BLOOD CULTURE</b> See BelowIs this a Possible Sepsis/Sepsis patient? YesBLOOD CULTURE(F) Alicia Date/ Time: 06/20/2017 19:59 Mitzy Date/Time: 06/26/2017 06:05SOURCE: BLOODSPEC DESC: [id number] [facility] [facility] [place] [address]</pre>" /> <referenceRange > <observationRange> <text /> </ observationRange> </referenceRange> </observation> </ component> </organizer> </entry> <entry> <organizer moodCode="EVN" classCode="BATTERY"> <templateId root="2.16.840.1.767375.10..22.4.1" /> <id nullFlavor="NA" /> <code codeSystem="local" code="BC" displayName= "BLOOD CULTURE" /> <statusCode code="completed" /> <component> <observation moodCode="EVN" classCode="OBS"> <templateId root= "2.16.840.1.321240.10..22.4.2" /> <id nullFlavor="NA" /> < code codeSystem="local" code="MB" displayName="Microbiology" /> < statusCode code="completed" /> <effectiveTime value="483739633800" /> <value xsi:type="ST" value="<pre><b>BLOOD CULTURE</b> See BelowIs this a Possible Sepsis/Sepsis patient? YesBLOOD CULTURE(F) Alicia Date/ Time: 06/20/2017 19:59 Mitzy Date/Time: 06/26/2017 06:05SOURCE: BLOODSPEC DESC: [id number] [facility] [place] [address]</pre>" /> <referenceRange > <observationRange> <text /> </ observationRange> </referenceRange> </observation> </ component> </organizer> </entry> <entry> <organizer moodCode="EVN" classCode="BATTERY"> <templateId root="2.16.840.1.731525.10...4.1" /> <id nullFlavor="NA" /> <code codeSystem="local" code="LIVER" displayName="HEPATIC FUNCTION PANEL" /> <statusCode code="completed" /> <component> <observation moodCode="EVN" classCode="OBS"> < templateId root="216.840.1.573909.10..4.2" /> <id nullFlavor="NA " /> <code codeSystem="local" code="BILUC" displayName="BILI UNCONJUGATED" /> <statusCode code="completed" /> < effectiveTime value="517464376236" /> <value unit="mg/dL" xsi:type="PQ " value="0.4" /> <referenceRange> <observationRange> <text>0.0-0.7</text> </observationRange> </ referenceRange> </observation> </component> <component> <observation moodCode="EVN" classCode="OBS"> <templateId root= "216.840.1.533896.10..4.2" /> <id nullFlavor="NA" /> < code codeSystem="local" code="AST" displayName="AST/SGOT" /> < statusCode code="completed" /> <effectiveTime value="017147614260" /> <value unit="Units/L" xsi:type="PQ" value="32" /> < referenceRange> <observationRange> <text>10-37</text> </observationRange> </referenceRange> </observation> </component> <component> <observation moodCode="EVN" classCode= "OBS"> <templateId root="16.840.1.300228.10..4.2" /> < id nullFlavor="NA" /> <code codeSystem="local" code="ALT" displayName= "ALT/SGPT" /> <statusCode code="completed" /> <effectiveTime value="837167091474" /> <value unit="Units/L" xsi:type="PQ" value="27" /> <referenceRange> <observationRange> <text>& lt; 66</text> </observationRange> </referenceRange> < /observation> </component> <component> <observation moodCode= "EVN" classCode="OBS"> <templateId root="16.840.1.428342.22.4.2 " /> <id nullFlavor="NA" /> <code codeSystem="local" code="TP " displayName="TOTAL PROTEIN" /> <statusCode code="completed" /> <effectiveTime value="" /> <value unit="gm/dL" xsi:type ="PQ" value="7.3" /> <referenceRange> <observationRange> <text>6.4-8.2</text> </observationRange> </ referenceRange> </observation> </component> <component> <observation moodCode="EVN" classCode="OBS"> <templateId root= "10.29.840.1.302186.07.02.22.4.2" /> <id nullFlavor="NA" /> < code codeSystem="local" code="ALB" displayName="ALBUMIN" /> < statusCode code="completed" /> <effectiveTime value="" /> <value unit="gm/dL" xsi:type="PQ" value="3.2" /> < interpretationCode codeSystem="local" code="*" /> <referenceRange> <observationRange> <text>3.4-5.0</text> </ observationRange> </referenceRange> </observation> </ component> <component> <observation moodCode="EVN" classCode="OBS"> <templateId root="16.840.1.124866.07.02.22.4.2" /> <id nullFlavor="NA" /> <code codeSystem="local" code="BILTOT" displayName= "BILI TOTAL" /> <statusCode code="completed" /> < effectiveTime value="" /> <value unit="mg/dL" xsi:type="PQ " value="0.8" /> <referenceRange> <observationRange> <text>0.0-1.0</text> </observationRange> </ referenceRange> </observation> </component> <component> <observation moodCode="EVN" classCode="OBS"> <templateId root= "216.840.1.489721.07.02.22.4.2" /> <id nullFlavor="NA" /> < code codeSystem="local" code="ALKP" displayName="ALKALINE PHOSPHATASE TOTAL" /> <statusCode code="completed" /> <effectiveTime value= "842162305200" /> <value unit="IU/L" xsi:type="PQ" value="87" /> <referenceRange> <observationRange> <text>45-117</ text> </observationRange> </referenceRange> </ observation> </component> <component> <observation moodCode= "EVN" classCode="OBS"> <templateId root="2.16.840.1.936141.07.02.22.4.2 " /> <id nullFlavor="NA" /> <code codeSystem="local" code= "BILC" displayName="BILI CONJUGATED" /> <statusCode code="completed" / > <effectiveTime value="247107781761" /> <value unit="mg/dL" xsi:type="PQ" value="0.4" /> <interpretationCode codeSystem="local" code="*" /> <referenceRange> <observationRange> <text>0.0-0.3</text> </observationRange> </referenceRange > </observation> </component> </organizer> </entry> <entry> <organizer moodCode="EVN" classCode="BATTERY"> <templateId root= "216.840.1.938025.07.02.22.4.1" /> <id nullFlavor="NA" /> <code codeSystem="local" code="iCHEM8" displayName="CHEM/HEM PROFILE-BEDSIDE" /> <statusCode code="completed" /> <component> <observation moodCode= "EVN" classCode="OBS"> <templateId root="16.840.1.413943...4.2 " /> <id nullFlavor="NA" /> <code codeSystem="local" code="K" displayName="POTASSIUM" /> <statusCode code="completed" /> < effectiveTime value="975846836111" /> <value unit="mmol/L" xsi:type="PQ " value="3.4" /> <interpretationCode codeSystem="local" code="*" /> <referenceRange> <observationRange> <text>3.5-5.3 </text> </observationRange> </referenceRange> </ observation> </component> <component> <observation moodCode= "EVN" classCode="OBS"> <templateId root="840.1.821577.07.02.22.4.2 " /> <id nullFlavor="NA" /> <code codeSystem="local" code= "CMETHOD" displayName="METHOD" /> <statusCode code="completed" /> <effectiveTime value="349228122142" /> <value unit="" xsi:type="PQ " value="Bedside" /> <referenceRange> <observationRange> <text /> </observationRange> </referenceRange> </observation> </component> <component> <observation moodCode="EVN" classCode="OBS"> <templateId root= "10.29.840.1.197102.07.02.22.4.2" /> <id nullFlavor="NA" /> < code codeSystem="local" code="GAP" displayName="ANION GAP" /> < statusCode code="completed" /> <effectiveTime value="" /> <value unit="mmol/L" xsi:type="PQ" value="18" /> < referenceRange> <observationRange> <text>10-20</text> </observationRange> </referenceRange> </observation> </component> <component> <observation moodCode="EVN" classCode= "OBS"> <templateId root="16.840.1.027790.10.22.4.2" /> < id nullFlavor="NA" /> <code codeSystem="local" code="HMETHOD" displayName="METHOD" /> <statusCode code="completed" /> < effectiveTime value="" /> <value unit="" xsi:type="PQ" value="Bedside" /> <referenceRange> <observationRange> <text /> </observationRange> </referenceRange> </observation> </component> <component> <observation moodCode="EVN" classCode="OBS"> <templateId root= "10.29.840.1.240708...4.2" /> <id nullFlavor="NA" /> < code codeSystem="local" code="GLU" displayName="GLUCOSE" /> < statusCode code="completed" /> <effectiveTime value="" /> <value unit="mg/dL" xsi:type="PQ" value="80" /> < referenceRange> <observationRange> <text>70-99</text> </observationRange> </referenceRange> </observation> </component> <component> <observation moodCode="EVN" classCode= "OBS"> <templateId root="10.29.840.1.965157.10.20.22.4.2" /> < id nullFlavor="NA" /> <code codeSystem="local" code="BUN" displayName= "BLOOD UREA NITROGEN" /> <statusCode code="completed" /> < effectiveTime value="" /> <value unit="mg/dL" xsi:type="PQ " value="15" /> <referenceRange> <observationRange> <text>7-20</text> </observationRange> </referenceRange > </observation> </component> <component> <observation moodCode="EVN" classCode="OBS"> <templateId root= "2.16.840.1.349581.10..22.4.2" /> <id nullFlavor="NA" /> < code codeSystem="local" code="CREAT" displayName="CREATININE" /> < statusCode code="completed" /> <effectiveTime value="" /> <value unit="mg/dL" xsi:type="PQ" value="0.7" /> < referenceRange> <observationRange> <text>0.7-1.3</text> </observationRange> </referenceRange> </observation > </component> <component> <observation moodCode="EVN" classCode="OBS"> <templateId root="2.16.840.1.584422.10..22.4.2" /> <id nullFlavor="NA" /> <code codeSystem="local" code="HGBT" displayName="HEMOGLOBIN" /> <statusCode code="completed" /> < effectiveTime value="" /> <value unit="gm/dL" xsi:type="PQ " value="13.3" /> <interpretationCode codeSystem="local" code="*" /> <referenceRange> <observationRange> <text>14.0- 18.0</text> </observationRange> </referenceRange> </ observation> </component> <component> <observation moodCode= "EVN" classCode="OBS"> <templateId root="16.840.1.122576.10..22.4.2 " /> <id nullFlavor="NA" /> <code codeSystem="local" code= "HCTT" displayName="HEMATOCRIT" /> <statusCode code="completed" /> <effectiveTime value="" /> <value unit="%" xsi: type="PQ" value="39.0" /> <interpretationCode codeSystem="local" code= "*" /> <referenceRange> <observationRange> < text>40.0-54.0</text> </observationRange> </referenceRange> </observation> </component> <component> <observation moodCode="EVN" classCode="OBS"> <templateId root= "10.29.840.1.358844.07.02.22.4.2" /> <id nullFlavor="NA" /> < code codeSystem="local" code="NA" displayName="SODIUM" /> <statusCode code="completed" /> <effectiveTime value="743110825129" /> < value unit="mmol/L" xsi:type="PQ" value="134" /> <interpretationCode codeSystem="local" code="*" /> <referenceRange> < observationRange> <text>135-148</text> </ observationRange> </referenceRange> </observation> </ component> <component> <observation moodCode="EVN" classCode="OBS"> <templateId root="10.29.840.1.268915.10.22.4.2" /> <id nullFlavor="NA" /> <code codeSystem="local" code="CL" displayName= "CHLORIDE" /> <statusCode code="completed" /> <effectiveTime value="431154477421" /> <value unit="mmol/L" xsi:type="PQ" value="100" /> <referenceRange> <observationRange> <text>98 -110</text> </observationRange> </referenceRange> </ observation> </component> <component> <observation moodCode= "EVN" classCode="OBS"> <templateId root="10.29.840.1.054835.10..22.4.2 " /> <id nullFlavor="NA" /> <code codeSystem="local" code="CO2 " displayName="CARBON DIOXIDE" /> <statusCode code="completed" /> <effectiveTime value="280041222814" /> <value unit="mmol/L" xsi: type="PQ" value="20" /> <interpretationCode codeSystem="local" code="* " /> <referenceRange> <observationRange> <text> 21-32</text> </observationRange> </referenceRange> </ observation> </component> <component> <observation moodCode= "EVN" classCode="OBS"> <templateId root="10.29.840.1.952216.10..4.2 " /> <id nullFlavor="NA" /> <code codeSystem="local" code= "CAION" displayName="CALCIUM IONIZED" /> <statusCode code="completed" / > <effectiveTime value="133848121725" /> <value unit="mg/dL" xsi:type="PQ" value="4.0" /> <interpretationCode codeSystem="local" code="*" /> <referenceRange> <observationRange> <text>4.5-5.3</text> </observationRange> </referenceRange > </observation> </component> </organizer> </entry> <entry> <organizer moodCode="EVN" classCode="BATTERY"> <templateId root= "10.29.840.1.972056..22.4.1" /> <id nullFlavor="NA" /> <code codeSystem="local" code="LACTG" displayName="LACTIC ACID" /> <statusCode code="completed" /> <component> <observation moodCode="EVN" classCode="OBS"> <templateId root="10.29.840.1.928103.10..22.4.2" /> <id nullFlavor="NA" /> <code codeSystem="local" code="LACT" displayName="LACTIC ACID" /> <statusCode code="completed" /> < effectiveTime value="270172216735" /> <value unit="mmol/L" xsi:type="PQ " value="1.0" /> <referenceRange> <observationRange> <text>0.5-2.0</text> </observationRange> </ referenceRange> </observation> </component> </organizer> </entry > <entry> <organizer moodCode="EVN" classCode="BATTERY"> <templateId root="840.1.149436.10...4.1" /> <id nullFlavor="NA" /> <code codeSystem="local" code="ABG" displayName="ARTERIAL BLOOD GAS" /> < statusCode code="completed" /> <component> <observation moodCode= "EVN" classCode="OBS"> <templateId root="10.29.840.1.959363.10.22.4.2 " /> <id nullFlavor="NA" /> <code codeSystem="local" code="VIMAL " displayName="ABG BASE EXCESS" /> <statusCode code="completed" /> <effectiveTime value="178815390930" /> <value unit="meq/L" xsi: type="PQ" value="-5.4" /> <interpretationCode codeSystem="local" code= "*" /> <referenceRange> <observationRange> < text>-3.0-3.0</text> </observationRange> </referenceRange> </observation> </component> <component> <observation moodCode="EVN" classCode="OBS"> <templateId root= "10.29.840.1.678992.10.20.22.4.2" /> <id nullFlavor="NA" /> < code codeSystem="local" code="HCO3A" displayName="ABG BICARBONATE" /> < statusCode code="completed" /> <effectiveTime value="625375178693" /> <value unit="meq/L" xsi:type="PQ" value="17.1" /> < interpretationCode codeSystem="local" code="*" /> <referenceRange> <observationRange> <text>23.0-28.0</text> </ observationRange> </referenceRange> </observation> </ component> <component> <observation moodCode="EVN" classCode="OBS"> <templateId root="10.29.840.1.527705.10...4.2" /> <id nullFlavor="NA" /> <code codeSystem="local" code="PCO2A" displayName= "ABG PCO2" /> <statusCode code="completed" /> <effectiveTime value="030223300703" /> <value unit="mmHg" xsi:type="PQ" value="26" /> <interpretationCode codeSystem="local" code="*" /> < referenceRange> <observationRange> <text>34-45</text> </observationRange> </referenceRange> </observation> </component> <component> <observation moodCode="EVN" classCode= "OBS"> <templateId root="10.29.840.1.288594.10.20.22.4.2" /> < id nullFlavor="NA" /> <code codeSystem="local" code="PHAX" displayName= "ABG PH" /> <statusCode code="completed" /> <effectiveTime value="247064623788" /> <value unit="" xsi:type="PQ" value="7.43" /> <referenceRange> <observationRange> <text>7.35- 7.45</text> </observationRange> </referenceRange> </ observation> </component> <component> <observation moodCode= "EVN" classCode="OBS"> <templateId root="216.840.1.054620.10.20.22.4.2 " /> <id nullFlavor="NA" /> <code codeSystem="local" code= "PO2A" displayName="ABG PO2" /> <statusCode code="completed" /> <effectiveTime value="285792949357" /> <value unit="mmHg" xsi:type= "PQ" value="133" /> <interpretationCode codeSystem="local" code="*" /> <referenceRange> <observationRange> <text>75- 100</text> </observationRange> </referenceRange> </ observation> </component> <component> <observation moodCode= "EVN" classCode="OBS"> <templateId root="216.840.1.920770.10.20.22.4.2 " /> <id nullFlavor="NA" /> <code codeSystem="local" code= "SATA" displayName="ABG O2 SATURATION" /> <statusCode code="completed" /> <effectiveTime value="832395548639" /> <value unit="%" xsi:type="PQ" value="99" /> <referenceRange> < observationRange> <text>93-100</text> </observationRange > </referenceRange> </observation> </component> </ organizer> </entry> <entry> <organizer moodCode="EVN" classCode="BATTERY"> <templateId root="2.16.840.1.330212.10.20.22.4.1" /> <id nullFlavor= "NA" /> <code codeSystem="local" code="HIVPCR-QNT" displayName="RNA HIV 1 BY PCR QUANTITATIVE" /> <statusCode code="completed" /> <component> <observation moodCode="EVN" classCode="OBS"> <templateId root= "216.840.1.040990.10.20.22.4.2" /> <id nullFlavor="NA" /> < code codeSystem="local" code="HIV.PCR/QUANT" displayName="RNA HIV 1 QUANTITATIVE " /> <statusCode code="completed" /> <effectiveTime value= "064735224512" /> <value unit="/mL" xsi:type="PQ" value="170044" /> <referenceRange> <observationRange> <text><20 COPIES</text> </observationRange> </referenceRange> < /observation> </component> <component> <observation moodCode= "EVN" classCode="OBS"> <templateId root="216.840.1.270372.10.20.22.4.2 " /> <id nullFlavor="NA" /> <code codeSystem="local" code= "RNAHIVCOPIES" displayName="RNA HIV COPIES LOG 10" /> <statusCode code= "completed" /> <effectiveTime value="320743797169" /> <value unit="LOG10" xsi:type="PQ" value="5.04" /> <referenceRange> <observationRange> <text><1.30 LOG10</text> </ observationRange> </referenceRange> </observation> </ component> </organizer> </entry> <entry> <organizer moodCode="EVN" classCode="BATTERY"> <templateId root="216.840.1.513610.07.02.22.4.1" /> <id nullFlavor="NA" /> <code codeSystem="local" code="CBCD" displayName="CBC W/DIFF" /> <statusCode code="completed" /> <component > <observation moodCode="EVN" classCode="OBS"> <templateId root= "216.840.1.605124.07.02.22.4.2" /> <id nullFlavor="NA" /> < code codeSystem="local" code="EO#" displayName="EOSINOPHIL #" /> < statusCode code="completed" /> <effectiveTime value="391949892376" /> <value unit="k/cumm" xsi:type="PQ" value="0.1" /> < referenceRange> <observationRange> <text>0.1-0.5</text> </observationRange> </referenceRange> </observation > </component> <component> <observation moodCode="EVN" classCode="OBS"> <templateId root="216.840.1.661754.07.02.22.4.2" /> <id nullFlavor="NA" /> <code codeSystem="local" code="EO% " displayName="EOSINOPHIL %" /> <statusCode code="completed" /> <effectiveTime value="811660204059" /> <value unit="%" xsi: type="PQ" value="1" /> <interpretationCode codeSystem="local" code="*" /> <referenceRange> <observationRange> <text>2- 4</text> </observationRange> </referenceRange> </ observation> </component> <component> <observation moodCode= "EVN" classCode="OBS"> <templateId root="216.840.1.168697.07.02.22.4.2 " /> <id nullFlavor="NA" /> <code codeSystem="local" code="GR# " displayName="GRANULOCYTE #" /> <statusCode code="completed" /> <effectiveTime value="649014737005" /> <value unit="k/cumm" xsi: type="PQ" value="8.0" /> <referenceRange> <observationRange > <text>2.0-9.0</text> </observationRange> </ referenceRange> </observation> </component> <component> <observation moodCode="EVN" classCode="OBS"> <templateId root= "2.16.840.1.952649.07.02.224.2" /> <id nullFlavor="NA" /> < code codeSystem="local" code="GR%" displayName="GRANULOCYTE %" /> <statusCode code="completed" /> <effectiveTime value="106173112198 " /> <value unit="%" xsi:type="PQ" value="72" /> < referenceRange> <observationRange> <text>50-75</text> </observationRange> </referenceRange> </observation> </component> <component> <observation moodCode="EVN" classCode= "OBS"> <templateId root="216.840.1.867391.07.02.22.4.2" /> < id nullFlavor="NA" /> <code codeSystem="local" code="LY#" displayName= "LYMPHOCYTE #" /> <statusCode code="completed" /> < effectiveTime value="286057733625" /> <value unit="k/cumm" xsi:type="PQ " value="1.7" /> <referenceRange> <observationRange> <text>1.0-4.0</text> </observationRange> </ referenceRange> </observation> </component> <component> <observation moodCode="EVN" classCode="OBS"> <templateId root= "2.16.840.1.391328.10..4.2" /> <id nullFlavor="NA" /> < code codeSystem="local" code="LY%" displayName="LYMPHOCYTE %" /> <statusCode code="completed" /> <effectiveTime value="425595070968" /> <value unit="%" xsi:type="PQ" value="15" /> < interpretationCode codeSystem="local" code="*" /> <referenceRange> <observationRange> <text>20-30</text> </ observationRange> </referenceRange> </observation> </ component> <component> <observation moodCode="EVN" classCode="OBS"> <templateId root="216.840.1.251125.07.02.224.2" /> <id nullFlavor="NA" /> <code codeSystem="local" code="MCH" displayName= "MEAN CELL HGB" /> <statusCode code="completed" /> < effectiveTime value="519493891281" /> <value unit="pg" xsi:type="PQ" value="29.9" /> <referenceRange> <observationRange> <text>27.0-33.0</text> </observationRange> </ referenceRange> </observation> </component> <component> <observation moodCode="EVN" classCode="OBS"> <templateId root= "216.840.1.948263.10.4.2" /> <id nullFlavor="NA" /> < code codeSystem="local" code="MCHC" displayName="MEAN CELL HGB CONCENTRATION" / > <statusCode code="completed" /> <effectiveTime value= "795287255689" /> <value unit="g/dL" xsi:type="PQ" value="34.3" /> <referenceRange> <observationRange> <text>32.0- 37.0</text> </observationRange> </referenceRange> </ observation> </component> <component> <observation moodCode= "EVN" classCode="OBS"> <templateId root="10.29.840.1.633520.22.4.2 " /> <id nullFlavor="NA" /> <code codeSystem="local" code="MCV " displayName="MEAN CELL VOLUME" /> <statusCode code="completed" /> <effectiveTime value="031424135524" /> <value unit="fl" xsi:type ="PQ" value="87.4" /> <referenceRange> <observationRange> <text>80.0-100.0</text> </observationRange> </ referenceRange> </observation> </component> <component> <observation moodCode="EVN" classCode="OBS"> <templateId root= "10.29.840.1.792371.07.02.22.4.2" /> <id nullFlavor="NA" /> < code codeSystem="local" code="MO#" displayName="MONOCYTE #" /> < statusCode code="completed" /> <effectiveTime value="146722659150" /> <value unit="k/cumm" xsi:type="PQ" value="1.3" /> < interpretationCode codeSystem="local" code="*" /> <referenceRange> <observationRange> <text>0.1-1.0</text> </ observationRange> </referenceRange> </observation> </ component> <component> <observation moodCode="EVN" classCode="OBS"> <templateId root="10.29.840.1.331137.07.02.224.2" /> <id nullFlavor="NA" /> <code codeSystem="local" code="MO%" displayName= "MONOCYTE %" /> <statusCode code="completed" /> < effectiveTime value="602794097189" /> <value unit="%" xsi:type="PQ " value="12" /> <interpretationCode codeSystem="local" code="*" /> <referenceRange> <observationRange> <text>4-6</ text> </observationRange> </referenceRange> </ observation> </component> <component> <observation moodCode= "EVN" classCode="OBS"> <templateId root="216.840.1.374143.07.02.224.2 " /> <id nullFlavor="NA" /> <code codeSystem="local" code= "MPVT" displayName="MEAN PLATELET VOLUME" /> <statusCode code= "completed" /> <effectiveTime value="009066518245" /> <value unit="fl" xsi:type="PQ" value="9.6" /> <referenceRange> < observationRange> <text>8.5-10.9</text> </ observationRange> </referenceRange> </observation> </ component> <component> <observation moodCode="EVN" classCode="OBS"> <templateId root="216.840.1.535231.07.02.224.2" /> <id nullFlavor="NA" /> <code codeSystem="local" code="RBC" displayName=" RED BLOOD CELL" /> <statusCode code="completed" /> < effectiveTime value="107261386378" /> <value unit="m/cumm" xsi:type="PQ " value="3.74" /> <interpretationCode codeSystem="local" code="*" /> <referenceRange> <observationRange> <text>4.00- 6.00</text> </observationRange> </referenceRange> </ observation> </component> <component> <observation moodCode= "EVN" classCode="OBS"> <templateId root="10.29.840.1.054644.10.20.22.4.2 " /> <id nullFlavor="NA" /> <code codeSystem="local" code="RDW " displayName="RED CELL DISTRIBUTION WIDTH" /> <statusCode code= "completed" /> <effectiveTime value="055611339799" /> <value unit="%" xsi:type="PQ" value="13.2" /> <referenceRange> <observationRange> <text>11.0-15.6</text> </ observationRange> </referenceRange> </observation> </ component> <component> <observation moodCode="EVN" classCode="OBS"> <templateId root="10.29.840.1.381760.10..22.4.2" /> <id nullFlavor="NA" /> <code codeSystem="local" code="WBC" displayName= "WHITE BLOOD CELL" /> <statusCode code="completed" /> < effectiveTime value="632176038321" /> <value unit="k/cumm" xsi:type="PQ " value="11.2" /> <interpretationCode codeSystem="local" code="*" /> <referenceRange> <observationRange> <text>5.0- 10.0</text> </observationRange> </referenceRange> </ observation> </component> <component> <observation moodCode= "EVN" classCode="OBS"> <templateId root="10.29.840.1.827180.10.20.22.4.2 " /> <id nullFlavor="NA" /> <code codeSystem="local" code= "HGBT" displayName="HEMOGLOBIN" /> <statusCode code="completed" /> <effectiveTime value="634144332828" /> <value unit="gm/dL" xsi: type="PQ" value="11.2" /> <interpretationCode codeSystem="local" code= "*" /> <referenceRange> <observationRange> < text>14.0-18.0</text> </observationRange> </referenceRange> </observation> </component> <component> <observation moodCode="EVN" classCode="OBS"> <templateId root= "2.16.840.1.168138.10.20.22.4.2" /> <id nullFlavor="NA" /> < code codeSystem="local" code="HCTT" displayName="HEMATOCRIT" /> < statusCode code="completed" /> <effectiveTime value="516197376451" /> <value unit="%" xsi:type="PQ" value="32.7" /> < interpretationCode codeSystem="local" code="*" /> <referenceRange> <observationRange> <text>40.0-54.0</text> </ observationRange> </referenceRange> </observation> </ component> <component> <observation moodCode="EVN" classCode="OBS"> <templateId root="2.16.840.1.872419.10..22.4.2" /> <id nullFlavor="NA" /> <code codeSystem="local" code="NRBC%" displayName="NRBC %" /> <statusCode code="completed" /> < effectiveTime value="664024881794" /> <value unit="/100WBC" xsi:type= "PQ" value="0.0" /> <referenceRange> <observationRange> <text>0.0-0.0</text> </observationRange> </ referenceRange> </observation> </component> <component> <observation moodCode="EVN" classCode="OBS"> <templateId root= "216.840.1.897727.10..4.2" /> <id nullFlavor="NA" /> < code codeSystem="local" code="NRBC#" displayName="NRBC #" /> < statusCode code="completed" /> <effectiveTime value="709745952552" /> <value unit="k/cumm" xsi:type="PQ" value="0.00" /> < interpretationCode codeSystem="local" code="*" /> <referenceRange> <observationRange> <text>0.03-0.11</text> </ observationRange> </referenceRange> </observation> </ component> <component> <observation moodCode="EVN" classCode="OBS"> <templateId root="10.29.840.1.146079.07.02.224.2" /> <id nullFlavor="NA" /> <code codeSystem="local" code="PLTT" displayName= "PLATELET COUNT" /> <statusCode code="completed" /> < effectiveTime value="891902806607" /> <value unit="k/cumm" xsi:type="PQ " value="152" /> <referenceRange> <observationRange> <text>150-400</text> </observationRange> </ referenceRange> </observation> </component> <component> <observation moodCode="EVN" classCode="OBS"> <templateId root= "16.840.1.833790.07.02.22.4.2" /> <id nullFlavor="NA" /> < code codeSystem="local" code="IG%" displayName="IMMATURE GRANULOCYTE %" /> <statusCode code="completed" /> <effectiveTime value= "947169898051" /> <value unit="%" xsi:type="PQ" value="0.4" /> <referenceRange> <observationRange> <text>0.0-0.6< /text> </observationRange> </referenceRange> </ observation> </component> <component> <observation moodCode= "EVN" classCode="OBS"> <templateId root="840.1.054114.07.02.22.4.2 " /> <id nullFlavor="NA" /> <code codeSystem="local" code="IG# " displayName="IMMATURE GRANULOCYTE #" /> <statusCode code="completed" /> <effectiveTime value="652691624784" /> <value unit="k/cumm " xsi:type="PQ" value="0.05" /> <referenceRange> < observationRange> <text>0.00-0.09</text> </ observationRange> </referenceRange> </observation> </ component> </organizer> </entry> <entry> <organizer moodCode="EVN" classCode="BATTERY"> <templateId root="840.1.413536.07.02.22.4.1" /> <id nullFlavor="NA" /> <code codeSystem="local" code="LACTG" displayName="LACTIC ACID" /> <statusCode code="completed" /> < component> <observation moodCode="EVN" classCode="OBS"> < templateId root="840.1.813833.07.02.22.4.2" /> <id nullFlavor="NA " /> <code codeSystem="local" code="LACT" displayName="LACTIC ACID" /> <statusCode code="completed" /> <effectiveTime value= "243690711122" /> <value unit="mmol/L" xsi:type="PQ" value="0.8" /> <referenceRange> <observationRange> <text>0.5-2.0 </text> </observationRange> </referenceRange> </ observation> </component> </organizer> </entry> <entry> <organizer moodCode="EVN" classCode="BATTERY"> <templateId root= "16.840.1.516282.10..22.4.1" /> <id nullFlavor="NA" /> <code codeSystem="local" code="RENAL" displayName="RENAL FUNCTION PANEL" /> < statusCode code="completed" /> <component> <observation moodCode= "EVN" classCode="OBS"> <templateId root="10.29.840.1.291533.10..4.2 " /> <id nullFlavor="NA" /> <code codeSystem="local" code="K" displayName="POTASSIUM" /> <statusCode code="completed" /> < effectiveTime value="977579153163" /> <value unit="mmol/L" xsi:type="PQ " value="3.4" /> <interpretationCode codeSystem="local" code="*" /> <referenceRange> <observationRange> <text>3.5-5.3 </text> </observationRange> </referenceRange> </ observation> </component> <component> <observation moodCode= "EVN" classCode="OBS"> <templateId root="10.29.840.1.692944.10.4.2 " /> <id nullFlavor="NA" /> <code codeSystem="local" code= "eGFR" displayName="EST GFR (MDRD)" /> <statusCode code="completed" /> <effectiveTime value="220973747114" /> <value unit="mL/min" xsi:type="PQ" value="> 60" /> <referenceRange> < observationRange> <text>> 59</text> </ observationRange> </referenceRange> </observation> </ component> <component> <observation moodCode="EVN" classCode="OBS"> <templateId root="16.840.1.556350.10..22.4.2" /> <id nullFlavor="NA" /> <code codeSystem="local" code="GAP" displayName= "ANION GAP" /> <statusCode code="completed" /> <effectiveTime value="788525721270" /> <value unit="mmol/L" xsi:type="PQ" value="7" / > <referenceRange> <observationRange> <text>5- 15</text> </observationRange> </referenceRange> </ observation> </component> <component> <observation moodCode= "EVN" classCode="OBS"> <templateId root="840.1.884866.07.02.22.4.2 " /> <id nullFlavor="NA" /> <code codeSystem="local" code= "eCrCl" displayName="EST CrCl (CG)" /> <statusCode code="completed" /> <effectiveTime value="571560379654" /> <value unit="mL/min" xsi:type="PQ" value="> 60" /> <referenceRange> < observationRange> <text>> 59</text> </ observationRange> </referenceRange> </observation> </ component> <component> <observation moodCode="EVN" classCode="OBS"> <templateId root="10.29.840.1.287153.10.22.4.2" /> <id nullFlavor="NA" /> <code codeSystem="local" code="GLU" displayName= "GLUCOSE" /> <statusCode code="completed" /> <effectiveTime value="298506816970" /> <value unit="mg/dL" xsi:type="PQ" value="85" / > <referenceRange> <observationRange> <text>70- 99</text> </observationRange> </referenceRange> </ observation> </component> <component> <observation moodCode= "EVN" classCode="OBS"> <templateId root="216.840.1.157702.07.02.22.4.2 " /> <id nullFlavor="NA" /> <code codeSystem="local" code="CA " displayName="CALCIUM" /> <statusCode code="completed" /> < effectiveTime value="203184482473" /> <value unit="mg/dL" xsi:type="PQ " value="7.8" /> <interpretationCode codeSystem="local" code="*" /> <referenceRange> <observationRange> <text>8.5- 10.1</text> </observationRange> </referenceRange> </ observation> </component> <component> <observation moodCode= "EVN" classCode="OBS"> <templateId root="10.29.840.1.377291.07.02.22.4.2 " /> <id nullFlavor="NA" /> <code codeSystem="local" code="BUN " displayName="BLOOD UREA NITROGEN" /> <statusCode code="completed" /> <effectiveTime value="516365854462" /> <value unit="mg/dL" xsi:type="PQ" value="12" /> <referenceRange> < observationRange> <text>7-20</text> </observationRange> </referenceRange> </observation> </component> < component> <observation moodCode="EVN" classCode="OBS"> < templateId root="216.840.1.899892.22.4.2" /> <id nullFlavor="NA " /> <code codeSystem="local" code="CREAT" displayName="CREATININE" /> <statusCode code="completed" /> <effectiveTime value= "443077867959" /> <value unit="mg/dL" xsi:type="PQ" value="0.8" /> <referenceRange> <observationRange> <text>0.7-1.3< /text> </observationRange> </referenceRange> </ observation> </component> <component> <observation moodCode= "EVN" classCode="OBS"> <templateId root="2.16.840.1.279651.10..22.4.2 " /> <id nullFlavor="NA" /> <code codeSystem="local" code="NA " displayName="SODIUM" /> <statusCode code="completed" /> < effectiveTime value="773971984278" /> <value unit="mmol/L" xsi:type="PQ " value="132" /> <interpretationCode codeSystem="local" code="*" /> <referenceRange> <observationRange> <text>135-148 </text> </observationRange> </referenceRange> </ observation> </component> <component> <observation moodCode= "EVN" classCode="OBS"> <templateId root="2.16.840.1.681751.10..22.4.2 " /> <id nullFlavor="NA" /> <code codeSystem="local" code="CL " displayName="CHLORIDE" /> <statusCode code="completed" /> < effectiveTime value="623824147854" /> <value unit="mmol/L" xsi:type="PQ " value="102" /> <referenceRange> <observationRange> <text>98-110</text> </observationRange> </ referenceRange> </observation> </component> <component> <observation moodCode="EVN" classCode="OBS"> <templateId root= "16.840.1.760203.10..22.4.2" /> <id nullFlavor="NA" /> < code codeSystem="local" code="CO2" displayName="CARBON DIOXIDE" /> < statusCode code="completed" /> <effectiveTime value="756470969879" /> <value unit="mmol/L" xsi:type="PQ" value="23" /> < referenceRange> <observationRange> <text>21-32</text> </observationRange> </referenceRange> </observation> </component> <component> <observation moodCode="EVN" classCode= "OBS"> <templateId root="10.29.840.1.280115.10.22.4.2" /> < id nullFlavor="NA" /> <code codeSystem="local" code="ALB" displayName= "ALBUMIN" /> <statusCode code="completed" /> <effectiveTime value="662435683600" /> <value unit="gm/dL" xsi:type="PQ" value="2.6" / > <interpretationCode codeSystem="local" code="*" /> < referenceRange> <observationRange> <text>3.4-5.0</text> </observationRange> </referenceRange> </observation > </component> <component> <observation moodCode="EVN" classCode="OBS"> <templateId root="10.29.840.1.456568.10.22.4.2" /> <id nullFlavor="NA" /> <code codeSystem="local" code="PHOS" displayName="PHOSPHORUS" /> <statusCode code="completed" /> < effectiveTime value="864249688783" /> <value unit="mg/dL" xsi:type="PQ " value="2.6" /> <referenceRange> <observationRange> <text>2.5-4.9</text> </observationRange> </ referenceRange> </observation> </component> </organizer> </entry > <entry> <organizer moodCode="EVN" classCode="BATTERY"> <templateId root="2.16.840.1.141056.10.20.22.4.1" /> <id nullFlavor="NA" /> <code codeSystem="local" code="GIPROFILE" displayName="GASTROINTESTINAL PROFILE" /> <statusCode code="completed" /> <component> <observation moodCode="EVN" classCode="OBS"> <templateId root= "2.16.840.1.964987.10.20.22.4.2" /> <id nullFlavor="NA" /> < code codeSystem="local" code="MB" displayName="Microbiology" /> < statusCode code="completed" /> <effectiveTime value="980851940628" /> <value xsi:type="ST" value="<pre><b>GASTROINTESTINAL PROFILE</b> See BelowGASTROINTESTINAL PROFILE(F) Alicia Date/Time: 06/21/2017 09:49 Mitzy Date/Time: 06/21/2017 14:07SOURCE: STOOLSPEC DESC: ADENOVIRUS F 40/41NOT DETECTEDASTROVIRUSNOT DETECTEDCAMPYLOBACTERNOT DETECTEDCRYPTOSPORIDIUMNOT DETECTEDCYCLOSPORA CAYETANENSISNOT DETECTEDENTEROAGGREGATIVE E.COLINOT DETECTEDE.COLI 0157NOT DETECTEDSHIGELLA / EIECNOT DETECTEDENTAMOEBA HISTOLYTICANOT DETECTEDENTEROPATHOGENIC E.COLINOT DETECTEDENTEROTOXIGENIC E.COLINOT DETECTEDGIARDIA LAMBLIANOT DETECTEDNOROVIRUS GI/GIINOT DETECTEDPLESIOMONAS SHIGELLOIDESNOT DETECTEDROTAVIRUS ANOT DETECTEDSALMONELLANOT DETECTEDSAPOVIRUSNOT DETECTEDSHIGA-LIKE TOXIN E.COLINOT DETECTEDVIBRIO CHOLERAENOT DETECTEDVIBRIONOT DETECTEDYERSINIA ENTEROCOLITICANOT DETECTEDMICHAEL VILLE [id number] [place] [address]</pre>" /> <referenceRange> <observationRange> <text /> </observationRange> </referenceRange> </observation> </ component> </organizer> </entry> <entry> <organizer moodCode="EVN" classCode="BATTERY"> <templateId root="[id number]" /> <id nullFlavor="NA" /> <code codeSystem="local" code="CDTOX" displayName="CLOSTRIDIUM DIFFICILE DNA" /> <statusCode code="completed" /> <component> <observation moodCode="EVN" classCode="OBS"> < templateId root="2.16.840.1.707454.10..22.4.2" /> <id nullFlavor="NA " /> <code codeSystem="local" code="MB" displayName="Microbiology" /> <statusCode code="completed" /> <effectiveTime value= "[id number]" /> <value xsi:type="ST" value="<pre><b>CLOSTRIDIUM DIFFICILE DNA</b> See BelowPatient meets both criteria for C Diff testing: YCLOSTRIDIUM DIFFICILE DNA(F) Alicia Date/Time: 06/21/2017 09:49 Mitzy Date/Time: 06/21/2017 14:08SOURCE: STOOLSPEC DESC: LIQUIDC.DIFFICILE TOXINNEGATIVE FOR CLOSTRIDIUM DIFFICILE TOXIGENIC B GENE BY [facility] [place] [address]</pre>" /> < referenceRange> <observationRange> <text /> < /observationRange> </referenceRange> </observation> </ component> </organizer> </entry> <entry> <organizer moodCode="EVN" classCode="BATTERY"> <templateId root="2.16.840.1.581079.10.20.22.4.1" /> <id nullFlavor="NA" /> <code codeSystem="local" code="OP" displayName= "OVA AND PARASITES" /> <statusCode code="completed" /> <component> <observation moodCode="EVN" classCode="OBS"> <templateId root= "2.16.840.1.225242.10..4.2" /> <id nullFlavor="NA" /> < code codeSystem="local" code="MB" displayName="Microbiology" /> < statusCode code="completed" /> <effectiveTime value="[id number]" /> <value xsi:type="ST" value="<pre><b>OVA AND PARASITES</b> See BelowOVA AND PARASITES(F) Alicia Date/Time: 06/21/2017 09:49 Mitzy Date/Time: 06/22/2017 11:42SOURCE: STOOLSPEC DESC: CRYPTOSPORIDIUM, CYCLOSPORA AND MICROSPORIDIA WILL NOT BE DETECTED BY THIS METHOD.OP REPORTNO OVA AND/OR PARASITES [facility] [place] [address]</pre>" /> <referenceRange> < observationRange> <text /> </observationRange> </referenceRange> </observation> </component> </organizer> </ entry> <entry> <organizer moodCode="EVN" classCode="BATTERY"> < templateId root="216.840.1.227862.10...4.1" /> <id nullFlavor="NA" /> <code codeSystem="local" code="UA" displayName="URINALYSIS, ROUTINE" /> <statusCode code="completed" /> <component> <observation moodCode="EVN" classCode="OBS"> <templateId root= "2.16.840.1.461552.10..22.4.2" /> <id nullFlavor="NA" /> < code codeSystem="local" code="LEUESU" displayName="UA LEUKOCYTE ESTERASE DIPSTICK" /> <statusCode code="completed" /> <effectiveTime value="265926382425" /> <value unit="" xsi:type="PQ" value="TRACE" /> <interpretationCode codeSystem="local" code="*" /> < referenceRange> <observationRange> <text>NEGATIVE</text > </observationRange> </referenceRange> </observation > </component> <component> <observation moodCode="EVN" classCode="OBS"> <templateId root="16.840.1.860629.07.02.22.4.2" /> <id nullFlavor="NA" /> <code codeSystem="local" code="NITRIU" displayName="UA NITRITE DIPSTICK" /> <statusCode code="completed" /> <effectiveTime value="310673677233" /> <value unit="" xsi:type= "PQ" value="NEGATIVE" /> <referenceRange> <observationRange > <text>NEGATIVE</text> </observationRange> </ referenceRange> </observation> </component> <component> <observation moodCode="EVN" classCode="OBS"> <templateId root= "10.29.840.1.836597.07.02.22.4.2" /> <id nullFlavor="NA" /> < code codeSystem="local" code="PROTEIU" displayName="UA PROTEIN DIPSTICK" /> <statusCode code="completed" /> <effectiveTime value= "233921030619" /> <value unit="" xsi:type="PQ" value="1+" /> < interpretationCode codeSystem="local" code="*" /> <referenceRange> <observationRange> <text>NEGATIVE</text> </ observationRange> </referenceRange> </observation> </ component> <component> <observation moodCode="EVN" classCode="OBS"> <templateId root="10.29.840.1.731718.07.02.22.4.2" /> <id nullFlavor="NA" /> <code codeSystem="local" code="DGLUU" displayName= "UA GLUCOSE DIPSTICK" /> <statusCode code="completed" /> < effectiveTime value="884597020717" /> <value unit="" xsi:type="PQ" value="NEGATIVE" /> <referenceRange> <observationRange> <text>NEGATIVE</text> </observationRange> </ referenceRange> </observation> </component> <component> <observation moodCode="EVN" classCode="OBS"> <templateId root= "216.840.1.694031.07.02.22.4.2" /> <id nullFlavor="NA" /> < code codeSystem="local" code="KETONU" displayName="UA KETONE DIPSTICK" /> <statusCode code="completed" /> <effectiveTime value="705182484108 " /> <value unit="" xsi:type="PQ" value="2+" /> < interpretationCode codeSystem="local" code="*" /> <referenceRange> <observationRange> <text>NEGATIVE</text> </ observationRange> </referenceRange> </observation> </ component> <component> <observation moodCode="EVN" classCode="OBS"> <templateId root="216.840.1.522710.07.02.22.4.2" /> <id nullFlavor="NA" /> <code codeSystem="local" code="UROBILU" displayName= "UA UROBILINOGEN DIPSTICK" /> <statusCode code="completed" /> <effectiveTime value="897965150451" /> <value unit="" xsi:type="PQ" value="2+" /> <interpretationCode codeSystem="local" code="*" /> <referenceRange> <observationRange> <text>NORMAL</ text> </observationRange> </referenceRange> </ observation> </component> <component> <observation moodCode= "EVN" classCode="OBS"> <templateId root="216.840.1.271184.10.4.2 " /> <id nullFlavor="NA" /> <code codeSystem="local" code= "BILU" displayName="UA BILIRUBIN DIPSTICK" /> <statusCode code= "completed" /> <effectiveTime value="708024647116" /> <value unit="" xsi:type="PQ" value="POSITIVE" /> <interpretationCode codeSystem="local" code="*" /> <referenceRange> < observationRange> <text>NEGATIVE</text> </ observationRange> </referenceRange> </observation> </ component> <component> <observation moodCode="EVN" classCode="OBS"> <templateId root="216.840.1.656992.07.02.22.4.2" /> <id nullFlavor="NA" /> <code codeSystem="local" code="MARY" displayName="UA BLOOD DIPSTICK" /> <statusCode code="completed" /> < effectiveTime value="466554721313" /> <value unit="" xsi:type="PQ" value="NEGATIVE" /> <referenceRange> <observationRange> <text>NEGATIVE</text> </observationRange> </ referenceRange> </observation> </component> <component> <observation moodCode="EVN" classCode="OBS"> <templateId root= "216.840.1.400417.07.02.22.4.2" /> <id nullFlavor="NA" /> < code codeSystem="local" code="SPGRU" displayName="UA SPECIFIC GRAVITY" /> <statusCode code="completed" /> <effectiveTime value="332162613972 " /> <value unit="" xsi:type="PQ" value="1.019" /> < referenceRange> <observationRange> <text>1.015-1.025</ text> </observationRange> </referenceRange> </ observation> </component> <component> <observation moodCode= "EVN" classCode="OBS"> <templateId root="16.840.1.664727.07.02.22.4.2 " /> <id nullFlavor="NA" /> <code codeSystem="local" code="CINDY " displayName="UR PH" /> <statusCode code="completed" /> < effectiveTime value="295004500773" /> <value unit="" xsi:type="PQ" value="5.0" /> <referenceRange> <observationRange> <text>5.0-7.0</text> </observationRange> </ referenceRange> </observation> </component> </organizer> </entry > <entry> <organizer moodCode="EVN" classCode="BATTERY"> <templateId root="840.1.187197.07.02.22.4.1" /> <id nullFlavor="NA" /> <code codeSystem="local" code="UAMICRO" displayName="UA MICROSCOPIC" /> < statusCode code="completed" /> <component> <observation moodCode= "EVN" classCode="OBS"> <templateId root="10.29.840.1.048636.07.02.22.4.2 " /> <id nullFlavor="NA" /> <code codeSystem="local" code= "BACU" displayName="UA BACTERIA" /> <statusCode code="completed" /> <effectiveTime value="447412157680" /> <value unit="" xsi:type= "PQ" value="2+" /> <interpretationCode codeSystem="local" code="*" /> <referenceRange> <observationRange> <text> NEGATIVE</text> </observationRange> </referenceRange> </observation> </component> <component> <observation moodCode ="EVN" classCode="OBS"> <templateId root= "16.840.1.688415.10..22.4.2" /> <id nullFlavor="NA" /> < code codeSystem="local" code="EPIU" displayName="UA EPITHELIAL CELLS" /> <statusCode code="completed" /> <effectiveTime value="698188891289" /> <value unit="epi/hpf" xsi:type="PQ" value="1+" /> < referenceRange> <observationRange> <text>0 - 1+</text> </observationRange> </referenceRange> </observation> </component> <component> <observation moodCode="EVN" classCode ="OBS"> <templateId root="840.1.435971.10..4.2" /> < id nullFlavor="NA" /> <code codeSystem="local" code="MUCUSU" displayName="UA MUCUS" /> <statusCode code="completed" /> < effectiveTime value="062043311732" /> <value unit="" xsi:type="PQ" value="2+" /> <interpretationCode codeSystem="local" code="*" /> <referenceRange> <observationRange> <text>NEG TO 1+< /text> </observationRange> </referenceRange> </ observation> </component> <component> <observation moodCode= "EVN" classCode="OBS"> <templateId root="10.29.840.1.082041.10...4.2 " /> <id nullFlavor="NA" /> <code codeSystem="local" code= "RBCU" displayName="UA RBC" /> <statusCode code="completed" /> <effectiveTime value="464118781921" /> <value unit="rbc/hpf" xsi:type ="PQ" value="0" /> <referenceRange> <observationRange> <text>0 - 3</text> </observationRange> </ referenceRange> </observation> </component> <component> <observation moodCode="EVN" classCode="OBS"> <templateId root= "216.840.1.401542.10..22.4.2" /> <id nullFlavor="NA" /> < code codeSystem="local" code="UAVOL" displayName="UA VOLUME FOR EXAM" /> <statusCode code="completed" /> <effectiveTime value="771909134393" /> <value unit="mL" xsi:type="PQ" value="12.0" /> < referenceRange> <observationRange> <text>(12mL STD)</ text> </observationRange> </referenceRange> </ observation> </component> <component> <observation moodCode= "EVN" classCode="OBS"> <templateId root="216.840.1.284509.10..22.4.2 " /> <id nullFlavor="NA" /> <code codeSystem="local" code= "WBCU" displayName="UA WBC" /> <statusCode code="completed" /> <effectiveTime value="049040729344" /> <value unit="wbc/hpf" xsi:type ="PQ" value="0-1" /> <referenceRange> <observationRange> <text>0 - 5</text> </observationRange> </ referenceRange> </observation> </component> </organizer> </entry > <entry> <organizer moodCode="EVN" classCode="BATTERY"> <templateId root="216.840.1.272375.07.02.22.4.1" /> <id nullFlavor="NA" /> <code codeSystem="local" code="DRUGAB" displayName="UR DRUGS OF ABUSE SCREEN" /> <statusCode code="completed" /> <component> <observation moodCode= "EVN" classCode="OBS"> <templateId root="216.840.1.004090.10...4.2 " /> <id nullFlavor="NA" /> <code codeSystem="local" code= "AMPHU" displayName="UR AMPHETAMINES SCREEN" /> <statusCode code= "completed" /> <effectiveTime value="864571883622" /> <value unit="" xsi:type="PQ" value="NEG (<1000 ng/mL)" /> <referenceRange > <observationRange> <text>NEGATIVE</text> </ observationRange> </referenceRange> </observation> </ component> <component> <observation moodCode="EVN" classCode="OBS"> <templateId root="16.840.1.041482.10..4.2" /> <id nullFlavor="NA" /> <code codeSystem="local" code="BARBU" displayName= "UR BARBITURATE SCREEN" /> <statusCode code="completed" /> < effectiveTime value="124047007821" /> <value unit="" xsi:type="PQ" value="NEG (< 200 ng/mL)" /> <referenceRange> < observationRange> <text>NEGATIVE</text> </ observationRange> </referenceRange> </observation> </ component> <component> <observation moodCode="EVN" classCode="OBS"> <templateId root="16.840.1.904882.10..22.4.2" /> <id nullFlavor="NA" /> <code codeSystem="local" code="DAUCOMMENT" displayName="DRUGS OF ABUSE SCREEN COMMENT" /> <statusCode code= "completed" /> <effectiveTime value="048384997568" /> <value unit="" xsi:type="PQ" value="" /> <referenceRange> < observationRange> <text /> </observationRange> </referenceRange> </observation> </component> <component> <observation moodCode="EVN" classCode="OBS"> <templateId root= "2.16.840.1.479564.10..22.4.2" /> <id nullFlavor="NA" /> < code codeSystem="local" code="OPIU" displayName="UR OPIATES SCREEN" /> <statusCode code="completed" /> <effectiveTime value="029883868642" /> <value unit="" xsi:type="PQ" value="POS (> 300 ng/mL)" /> <interpretationCode codeSystem="local" code="*" /> <referenceRange> <observationRange> <text>NEGATIVE</text> </ observationRange> </referenceRange> </observation> </ component> <component> <observation moodCode="EVN" classCode="OBS"> <templateId root="2.16.840.1.748975.10..22.4.2" /> <id nullFlavor="NA" /> <code codeSystem="local" code="PCPU" displayName=" UR PHENCYCLIDINE (PCP) SCREEN" /> <statusCode code="completed" /> <effectiveTime value="541964738088" /> <value unit="" xsi:type="PQ " value="NEG (< 25 ng/mL)" /> <referenceRange> < observationRange> <text>NEGATIVE</text> </ observationRange> </referenceRange> </observation> </ component> <component> <observation moodCode="EVN" classCode="OBS"> <templateId root="216.840.1.036143.10..22.4.2" /> <id nullFlavor="NA" /> <code codeSystem="local" code="THCU" displayName=" UR CANNABINOIDS (THC) SCREEN" /> <statusCode code="completed" /> <effectiveTime value="428765742352" /> <value unit="" xsi:type="PQ " value="POS (> 50 ng/mL)" /> <interpretationCode codeSystem= "local" code="*" /> <referenceRange> <observationRange> <text>NEGATIVE</text> </observationRange> </ referenceRange> </observation> </component> <component> <observation moodCode="EVN" classCode="OBS"> <templateId root= "16.840.1.814822.07.02.22.4.2" /> <id nullFlavor="NA" /> < code codeSystem="local" code="COCAU" displayName="UR COCAINE METABOLITE SCREEN" /> <statusCode code="completed" /> <effectiveTime value= "603306868973" /> <value unit="" xsi:type="PQ" value="NEG (< 300 ng /mL)" /> <referenceRange> <observationRange> < text>NEGATIVE</text> </observationRange> </referenceRange> </observation> </component> <component> <observation moodCode="EVN" classCode="OBS"> <templateId root= "216.840.1.830363.10..22.4.2" /> <id nullFlavor="NA" /> < code codeSystem="local" code="METHU" displayName="UR METHADONE SCREEN" /> <statusCode code="completed" /> <effectiveTime value="542782212762 " /> <value unit="" xsi:type="PQ" value="NEG (< 300 ng/mL)" /> <referenceRange> <observationRange> <text>NEGATIVE </text> </observationRange> </referenceRange> </ observation> </component> <component> <observation moodCode= "EVN" classCode="OBS"> <templateId root="10.29.840.1.395721.10.20.22.4.2 " /> <id nullFlavor="NA" /> <code codeSystem="local" code= "BENZU" displayName="UR BENZODIAZEPINE SCREEN" /> <statusCode code= "completed" /> <effectiveTime value="178346438771" /> <value unit="" xsi:type="PQ" value="NEG (< 200 ng/mL)" /> <referenceRange > <observationRange> <text>NEGATIVE</text> </ observationRange> </referenceRange> </observation> </ component> </organizer> </entry> <entry> <organizer moodCode="EVN" classCode="BATTERY"> <templateId root="10.29.840.1.240354.10..22.4.1" /> <id nullFlavor="NA" /> <code codeSystem="local" code="CBCD" displayName="CBC W/DIFF" /> <statusCode code="completed" /> <component > <observation moodCode="EVN" classCode="OBS"> <templateId root= "10.29.840.1.659545.10..22.4.2" /> <id nullFlavor="NA" /> < code codeSystem="local" code="EO#" displayName="EOSINOPHIL #" /> < statusCode code="completed" /> <effectiveTime value="643485687199" /> <value unit="k/cumm" xsi:type="PQ" value="0.7" /> < interpretationCode codeSystem="local" code="*" /> <referenceRange> <observationRange> <text>0.1-0.5</text> </ observationRange> </referenceRange> </observation> </ component> <component> <observation moodCode="EVN" classCode="OBS"> <templateId root="16.840.1.777417.10.20.22.4.2" /> <id nullFlavor="NA" /> <code codeSystem="local" code="EO%" displayName= "EOSINOPHIL %" /> <statusCode code="completed" /> < effectiveTime value="" /> <value unit="%" xsi:type="PQ " value="10" /> <interpretationCode codeSystem="local" code="*" /> <referenceRange> <observationRange> <text>2-4</ text> </observationRange> </referenceRange> </ observation> </component> <component> <observation moodCode= "EVN" classCode="OBS"> <templateId root="840.1.533112.07.02.22.4.2 " /> <id nullFlavor="NA" /> <code codeSystem="local" code="GR# " displayName="GRANULOCYTE #" /> <statusCode code="completed" /> <effectiveTime value="" /> <value unit="k/cumm" xsi: type="PQ" value="4.4" /> <referenceRange> <observationRange > <text>2.0-9.0</text> </observationRange> </ referenceRange> </observation> </component> <component> <observation moodCode="EVN" classCode="OBS"> <templateId root= "10.29.840.1.480854.10.2022.4.2" /> <id nullFlavor="NA" /> < code codeSystem="local" code="GR%" displayName="GRANULOCYTE %" /> <statusCode code="completed" /> <effectiveTime value=" " /> <value unit="%" xsi:type="PQ" value="62" /> < referenceRange> <observationRange> <text>50-75</text> </observationRange> </referenceRange> </observation> </component> <component> <observation moodCode="EVN" classCode= "OBS"> <templateId root="216.840.1.035510.10..22.4.2" /> < id nullFlavor="NA" /> <code codeSystem="local" code="LY#" displayName= "LYMPHOCYTE #" /> <statusCode code="completed" /> < effectiveTime value="" /> <value unit="k/cumm" xsi:type="PQ " value="1.1" /> <referenceRange> <observationRange> <text>1.0-4.0</text> </observationRange> </ referenceRange> </observation> </component> <component> <observation moodCode="EVN" classCode="OBS"> <templateId root= "2.16.840.1.177463.10..22.4.2" /> <id nullFlavor="NA" /> < code codeSystem="local" code="LY%" displayName="LYMPHOCYTE %" /> <statusCode code="completed" /> <effectiveTime value="" /> <value unit="%" xsi:type="PQ" value="16" /> < interpretationCode codeSystem="local" code="*" /> <referenceRange> <observationRange> <text>20-30</text> </ observationRange> </referenceRange> </observation> </ component> <component> <observation moodCode="EVN" classCode="OBS"> <templateId root="10.29.840.1.483894.10.20.22.4.2" /> <id nullFlavor="NA" /> <code codeSystem="local" code="MCH" displayName= "MEAN CELL HGB" /> <statusCode code="completed" /> < effectiveTime value="" /> <value unit="pg" xsi:type="PQ" value="29.9" /> <referenceRange> <observationRange> <text>27.0-33.0</text> </observationRange> </ referenceRange> </observation> </component> <component> <observation moodCode="EVN" classCode="OBS"> <templateId root= "10.29.840.1.765933.10.22.4.2" /> <id nullFlavor="NA" /> < code codeSystem="local" code="MCHC" displayName="MEAN CELL HGB CONCENTRATION" / > <statusCode code="completed" /> <effectiveTime value= "" /> <value unit="g/dL" xsi:type="PQ" value="33.9" /> <referenceRange> <observationRange> <text>32.0- 37.0</text> </observationRange> </referenceRange> </ observation> </component> <component> <observation moodCode= "EVN" classCode="OBS"> <templateId root="10.29.840.1.270990.10.20.22.4.2 " /> <id nullFlavor="NA" /> <code codeSystem="local" code="MCV " displayName="MEAN CELL VOLUME" /> <statusCode code="completed" /> <effectiveTime value="" /> <value unit="fl" xsi:type ="PQ" value="88.1" /> <referenceRange> <observationRange> <text>80.0-100.0</text> </observationRange> </ referenceRange> </observation> </component> <component> <observation moodCode="EVN" classCode="OBS"> <templateId root= "216.840.1.812954.10.20.22.4.2" /> <id nullFlavor="NA" /> < code codeSystem="local" code="MO#" displayName="MONOCYTE #" /> < statusCode code="completed" /> <effectiveTime value="793408207318" /> <value unit="k/cumm" xsi:type="PQ" value="0.9" /> < referenceRange> <observationRange> <text>0.1-1.0</text> </observationRange> </referenceRange> </observation > </component> <component> <observation moodCode="EVN" classCode="OBS"> <templateId root="10.29.840.1.917234.10..4.2" /> <id nullFlavor="NA" /> <code codeSystem="local" code="MO% " displayName="MONOCYTE %" /> <statusCode code="completed" /> <effectiveTime value="" /> <value unit="%" xsi: type="PQ" value="12" /> <interpretationCode codeSystem="local" code="* " /> <referenceRange> <observationRange> <text> 4-6</text> </observationRange> </referenceRange> </ observation> </component> <component> <observation moodCode= "EVN" classCode="OBS"> <templateId root="16.840.1.943850.10.20.22.4.2 " /> <id nullFlavor="NA" /> <code codeSystem="local" code= "MPVT" displayName="MEAN PLATELET VOLUME" /> <statusCode code= "completed" /> <effectiveTime value="" /> <value unit="fl" xsi:type="PQ" value="10.0" /> <referenceRange> < observationRange> <text>8.5-10.9</text> </ observationRange> </referenceRange> </observation> </ component> <component> <observation moodCode="EVN" classCode="OBS"> <templateId root="216.840.1.581833.10.20.22.4.2" /> <id nullFlavor="NA" /> <code codeSystem="local" code="RBC" displayName=" RED BLOOD CELL" /> <statusCode code="completed" /> < effectiveTime value="" /> <value unit="m/cumm" xsi:type="PQ " value="3.95" /> <interpretationCode codeSystem="local" code="*" /> <referenceRange> <observationRange> <text>4.00- 6.00</text> </observationRange> </referenceRange> </ observation> </component> <component> <observation moodCode= "EVN" classCode="OBS"> <templateId root="2.16.840.1.763355.10.20.22.4.2 " /> <id nullFlavor="NA" /> <code codeSystem="local" code="RDW " displayName="RED CELL DISTRIBUTION WIDTH" /> <statusCode code= "completed" /> <effectiveTime value="" /> <value unit="%" xsi:type="PQ" value="13.4" /> <referenceRange> <observationRange> <text>11.0-15.6</text> </ observationRange> </referenceRange> </observation> </ component> <component> <observation moodCode="EVN" classCode="OBS"> <templateId root="10.29.840.1.336991.10.20.22.4.2" /> <id nullFlavor="NA" /> <code codeSystem="local" code="WBC" displayName= "WHITE BLOOD CELL" /> <statusCode code="completed" /> < effectiveTime value="" /> <value unit="k/cumm" xsi:type="PQ " value="7.2" /> <referenceRange> <observationRange> <text>5.0-10.0</text> </observationRange> </ referenceRange> </observation> </component> <component> <observation moodCode="EVN" classCode="OBS"> <templateId root= "840.1.158219.102022.4.2" /> <id nullFlavor="NA" /> < code codeSystem="local" code="HGBT" displayName="HEMOGLOBIN" /> < statusCode code="completed" /> <effectiveTime value="" /> <value unit="gm/dL" xsi:type="PQ" value="11.8" /> < interpretationCode codeSystem="local" code="*" /> <referenceRange> <observationRange> <text>14.0-18.0</text> </ observationRange> </referenceRange> </observation> </ component> <component> <observation moodCode="EVN" classCode="OBS"> <templateId root="10.29.840.1.680849.10.20.22.4.2" /> <id nullFlavor="NA" /> <code codeSystem="local" code="HCTT" displayName= "HEMATOCRIT" /> <statusCode code="completed" /> < effectiveTime value="823948148299" /> <value unit="%" xsi:type="PQ " value="34.8" /> <interpretationCode codeSystem="local" code="*" /> <referenceRange> <observationRange> <text>40.0- 54.0</text> </observationRange> </referenceRange> </ observation> </component> <component> <observation moodCode= "EVN" classCode="OBS"> <templateId root="216.840.1.068364.07.02.22.4.2 " /> <id nullFlavor="NA" /> <code codeSystem="local" code= "NRBC%" displayName="NRBC %" /> <statusCode code="completed" / > <effectiveTime value="" /> <value unit="/100WBC " xsi:type="PQ" value="0.0" /> <referenceRange> < observationRange> <text>0.0-0.0</text> </ observationRange> </referenceRange> </observation> </ component> <component> <observation moodCode="EVN" classCode="OBS"> <templateId root="10.29.840.1.628159.07.02.22.4.2" /> <id nullFlavor="NA" /> <code codeSystem="local" code="NRBC#" displayName= "NRBC #" /> <statusCode code="completed" /> <effectiveTime value="" /> <value unit="k/cumm" xsi:type="PQ" value="0.00 " /> <interpretationCode codeSystem="local" code="*" /> < referenceRange> <observationRange> <text>0.03-0.11</text > </observationRange> </referenceRange> </observation > </component> <component> <observation moodCode="EVN" classCode="OBS"> <templateId root="10.29.840.1.334073.07.02.22.4.2" /> <id nullFlavor="NA" /> <code codeSystem="local" code="PLTT" displayName="PLATELET COUNT" /> <statusCode code="completed" /> <effectiveTime value="" /> <value unit="k/cumm" xsi:type ="PQ" value="191" /> <referenceRange> <observationRange> <text>150-400</text> </observationRange> </ referenceRange> </observation> </component> <component> <observation moodCode="EVN" classCode="OBS"> <templateId root= "216.840.1.808132.07.02.22.4.2" /> <id nullFlavor="NA" /> < code codeSystem="local" code="IG%" displayName="IMMATURE GRANULOCYTE %" /> <statusCode code="completed" /> <effectiveTime value= "" /> <value unit="%" xsi:type="PQ" value="0.7" /> <interpretationCode codeSystem="local" code="*" /> < referenceRange> <observationRange> <text>0.0-0.6</text> </observationRange> </referenceRange> </observation > </component> <component> <observation moodCode="EVN" classCode="OBS"> <templateId root="16.840.1.107383.07.02.22.4.2" /> <id nullFlavor="NA" /> <code codeSystem="local" code="IG#" displayName="IMMATURE GRANULOCYTE #" /> <statusCode code="completed" / > <effectiveTime value="" /> <value unit="k/cumm" xsi:type="PQ" value="0.05" /> <referenceRange> < observationRange> <text>0.00-0.09</text> </ observationRange> </referenceRange> </observation> </ component> </organizer> </entry> <entry> <organizer moodCode="EVN" classCode="BATTERY"> <templateId root="216.840.1.560622.10..22.4.1" /> <id nullFlavor="NA" /> <code codeSystem="local" code="RENAL" displayName="RENAL FUNCTION PANEL" /> <statusCode code="completed" /> <component> <observation moodCode="EVN" classCode="OBS"> < templateId root="2.16.840.1.087288.10...4.2" /> <id nullFlavor="NA " /> <code codeSystem="local" code="K" displayName="POTASSIUM" /> <statusCode code="completed" /> <effectiveTime value=" " /> <value unit="mmol/L" xsi:type="PQ" value="3.6" /> < referenceRange> <observationRange> <text>3.5-5.3</text> </observationRange> </referenceRange> </observation > </component> <component> <observation moodCode="EVN" classCode="OBS"> <templateId root="216.840.1.547409.10..22.4.2" /> <id nullFlavor="NA" /> <code codeSystem="local" code="eGFR" displayName="EST GFR (MDRD)" /> <statusCode code="completed" /> <effectiveTime value="" /> <value unit="mL/min" xsi:type ="PQ" value="> 60" /> <referenceRange> <observationRange > <text>> 59</text> </observationRange> </ referenceRange> </observation> </component> <component> <observation moodCode="EVN" classCode="OBS"> <templateId root= "216.840.1.104425.10..22.4.2" /> <id nullFlavor="NA" /> < code codeSystem="local" code="GAP" displayName="ANION GAP" /> < statusCode code="completed" /> <effectiveTime value="" /> <value unit="mmol/L" xsi:type="PQ" value="7" /> < referenceRange> <observationRange> <text>5-15</text> </observationRange> </referenceRange> </observation> </component> <component> <observation moodCode="EVN" classCode= "OBS"> <templateId root="16.840.1.536529.10...4.2" /> < id nullFlavor="NA" /> <code codeSystem="local" code="eCrCl" displayName ="EST CrCl (CG)" /> <statusCode code="completed" /> < effectiveTime value="" /> <value unit="mL/min" xsi:type="PQ " value="> 60" /> <referenceRange> <observationRange> <text>> 59</text> </observationRange> </ referenceRange> </observation> </component> <component> <observation moodCode="EVN" classCode="OBS"> <templateId root= "16.840.1.394682.10...4.2" /> <id nullFlavor="NA" /> < code codeSystem="local" code="GLU" displayName="GLUCOSE" /> < statusCode code="completed" /> <effectiveTime value="" /> <value unit="mg/dL" xsi:type="PQ" value="82" /> < referenceRange> <observationRange> <text>70-99</text> </observationRange> </referenceRange> </observation> </component> <component> <observation moodCode="EVN" classCode= "OBS"> <templateId root="216.840.1.032628.10.22.4.2" /> < id nullFlavor="NA" /> <code codeSystem="local" code="CA" displayName= "CALCIUM" /> <statusCode code="completed" /> <effectiveTime value="" /> <value unit="mg/dL" xsi:type="PQ" value="8.2" / > <interpretationCode codeSystem="local" code="*" /> < referenceRange> <observationRange> <text>8.5-10.1</text > </observationRange> </referenceRange> </observation > </component> <component> <observation moodCode="EVN" classCode="OBS"> <templateId root="16.840.1.929942.22.4.2" /> <id nullFlavor="NA" /> <code codeSystem="local" code="BUN" displayName="BLOOD UREA NITROGEN" /> <statusCode code="completed" /> <effectiveTime value="" /> <value unit="mg/dL" xsi: type="PQ" value="13" /> <referenceRange> <observationRange> <text>7-20</text> </observationRange> </ referenceRange> </observation> </component> <component> <observation moodCode="EVN" classCode="OBS"> <templateId root= "16.840.1.830159.10.2022.4.2" /> <id nullFlavor="NA" /> < code codeSystem="local" code="CREAT" displayName="CREATININE" /> < statusCode code="completed" /> <effectiveTime value="" /> <value unit="mg/dL" xsi:type="PQ" value="0.9" /> < referenceRange> <observationRange> <text>0.7-1.3</text> </observationRange> </referenceRange> </observation > </component> <component> <observation moodCode="EVN" classCode="OBS"> <templateId root="16.840.1.311176.10..22.4.2" /> <id nullFlavor="NA" /> <code codeSystem="local" code="NA" displayName="SODIUM" /> <statusCode code="completed" /> < effectiveTime value="" /> <value unit="mmol/L" xsi:type="PQ " value="136" /> <referenceRange> <observationRange> <text>135-148</text> </observationRange> </ referenceRange> </observation> </component> <component> <observation moodCode="EVN" classCode="OBS"> <templateId root= "10.29.840.1.274771.10..4.2" /> <id nullFlavor="NA" /> < code codeSystem="local" code="CL" displayName="CHLORIDE" /> < statusCode code="completed" /> <effectiveTime value="" /> <value unit="mmol/L" xsi:type="PQ" value="105" /> < referenceRange> <observationRange> <text>98-110</text> </observationRange> </referenceRange> </observation> </component> <component> <observation moodCode="EVN" classCode ="OBS"> <templateId root="16.840.1.084025.10.20.22.4.2" /> < id nullFlavor="NA" /> <code codeSystem="local" code="CO2" displayName= "CARBON DIOXIDE" /> <statusCode code="completed" /> < effectiveTime value="" /> <value unit="mmol/L" xsi:type="PQ " value="24" /> <referenceRange> <observationRange> <text>21-32</text> </observationRange> </ referenceRange> </observation> </component> <component> <observation moodCode="EVN" classCode="OBS"> <templateId root= "2.16.840.1.048387.10.20.22.4.2" /> <id nullFlavor="NA" /> < code codeSystem="local" code="ALB" displayName="ALBUMIN" /> < statusCode code="completed" /> <effectiveTime value="" /> <value unit="gm/dL" xsi:type="PQ" value="2.6" /> < interpretationCode codeSystem="local" code="*" /> <referenceRange> <observationRange> <text>3.4-5.0</text> </ observationRange> </referenceRange> </observation> </ component> <component> <observation moodCode="EVN" classCode="OBS"> <templateId root="216.840.1.118717.10.20.22.4.2" /> <id nullFlavor="NA" /> <code codeSystem="local" code="PHOS" displayName= "PHOSPHORUS" /> <statusCode code="completed" /> < effectiveTime value="" /> <value unit="mg/dL" xsi:type="PQ " value="2.9" /> <referenceRange> <observationRange> <text>2.5-4.9</text> </observationRange> </ referenceRange> </observation> </component> </organizer> </entry > <entry> <organizer moodCode="EVN" classCode="BATTERY"> <templateId root="10.29.840.1.508000.07.02.22.4.1" /> <id nullFlavor="NA" /> <code codeSystem="local" code="CBCWD" displayName="CBC With Platelet and Differential " /> <statusCode code="completed" /> <component> <observation moodCode="EVN" classCode="OBS"> <templateId root= "840.1.678896.07.02.22.4.2" /> <id nullFlavor="NA" /> < code codeSystem="local" code="ABASR" displayName="Absolute Basophils" /> <statusCode code="completed" /> <effectiveTime value="142985092684" /> <value unit="10*3/uL" xsi:type="PQ" value="0.03" /> < referenceRange> <observationRange> <text>0.00-0.20</text > </observationRange> </referenceRange> </observation > </component> <component> <observation moodCode="EVN" classCode="OBS"> <templateId root="840.1.921070.07.02.22.4.2" /> <id nullFlavor="NA" /> <code codeSystem="local" code="AEOSR" displayName="Absolute Eosinophils" /> <statusCode code="completed" /> <effectiveTime value="133667130327" /> <value unit="10*3/uL" xsi:type="PQ" value="0.50" /> <referenceRange> < observationRange> <text>0.00-0.50</text> </ observationRange> </referenceRange> </observation> </ component> <component> <observation moodCode="EVN" classCode="OBS"> <templateId root="10.29.840.1.046035.07.02.22.4.2" /> <id nullFlavor="NA" /> <code codeSystem="local" code="ALYMR" displayName= "Absolute Lymphocytes" /> <statusCode code="completed" /> < effectiveTime value="991435086131" /> <value unit="10*3/uL" xsi:type= "PQ" value="1.70" /> <referenceRange> <observationRange> <text>0.80-3.30</text> </observationRange> </ referenceRange> </observation> </component> <component> <observation moodCode="EVN" classCode="OBS"> <templateId root= "216.840.1.681920.07.02.224.2" /> <id nullFlavor="NA" /> < code codeSystem="local" code="AMONR" displayName="Absolute Monocytes" /> <statusCode code="completed" /> <effectiveTime value="971635108274" /> <value unit="10*3/uL" xsi:type="PQ" value="1.10" /> < interpretationCode codeSystem="local" code="*" /> <referenceRange> <observationRange> <text>0.30-1.00</text> </ observationRange> </referenceRange> </observation> </ component> <component> <observation moodCode="EVN" classCode="OBS"> <templateId root="216.840.1.682203.104.2" /> <id nullFlavor="NA" /> <code codeSystem="local" code="ASEGR" displayName= "Absolute Neutrophils" /> <statusCode code="completed" /> < effectiveTime value="902135176368" /> <value unit="10*3/uL" xsi:type= "PQ" value="3.68" /> <referenceRange> <observationRange> <text>1.90-7.00</text> </observationRange> </ referenceRange> </observation> </component> <component> <observation moodCode="EVN" classCode="OBS"> <templateId root= "216.840.1.711403.10.2022.4.2" /> <id nullFlavor="NA" /> < code codeSystem="local" code="BASOR" displayName="Basophils" /> < statusCode code="completed" /> <effectiveTime value="" /> <value unit="%" xsi:type="PQ" value="0" /> <referenceRange > <observationRange> <text>0-2</text> </ observationRange> </referenceRange> </observation> </ component> <component> <observation moodCode="EVN" classCode="OBS"> <templateId root="10.29.840.1.360523.1022.4.2" /> <id nullFlavor="NA" /> <code codeSystem="local" code="EOSR" displayName= "Eosinophils" /> <statusCode code="completed" /> < effectiveTime value="935039762571" /> <value unit="%" xsi:type="PQ " value="7" /> <interpretationCode codeSystem="local" code="*" /> <referenceRange> <observationRange> <text>0-4</text > </observationRange> </referenceRange> </observation > </component> <component> <observation moodCode="EVN" classCode="OBS"> <templateId root="16.840.1.313736..22.4.2" /> <id nullFlavor="NA" /> <code codeSystem="local" code="HCT" displayName="HCT" /> <statusCode code="completed" /> < effectiveTime value="210602189590" /> <value unit="%" xsi:type="PQ " value="39.3" /> <interpretationCode codeSystem="local" code="*" /> <referenceRange> <observationRange> <text>42.0- 52.0</text> </observationRange> </referenceRange> </ observation> </component> <component> <observation moodCode= "EVN" classCode="OBS"> <templateId root="2.16.840.1.933204.10.2022.4.2 " /> <id nullFlavor="NA" /> <code codeSystem="local" code="HGB " displayName="HGB" /> <statusCode code="completed" /> < effectiveTime value="293756889888" /> <value unit="g/dL" xsi:type="PQ" value="12.9" /> <interpretationCode codeSystem="local" code="*" /> <referenceRange> <observationRange> <text>14.0- 18.0</text> </observationRange> </referenceRange> </ observation> </component> <component> <observation moodCode= "EVN" classCode="OBS"> <templateId root="216.840.1.715901.1022.4.2 " /> <id nullFlavor="NA" /> <code codeSystem="local" code= "IMGA" displayName="Immature Granulocytes" /> <statusCode code= "completed" /> <effectiveTime value="662106439145" /> <value unit="%" xsi:type="PQ" value="0.4" /> <referenceRange> < observationRange> <text>0.0-1.0</text> </ observationRange> </referenceRange> </observation> </ component> <component> <observation moodCode="EVN" classCode="OBS"> <templateId root="216.840.1.995513.07.02.22.4.2" /> <id nullFlavor="NA" /> <code codeSystem="local" code="LYMPR" displayName= "Lymphocytes" /> <statusCode code="completed" /> < effectiveTime value="587305389549" /> <value unit="%" xsi:type="PQ " value="24" /> <referenceRange> <observationRange> <text>20-46</text> </observationRange> </ referenceRange> </observation> </component> <component> <observation moodCode="EVN" classCode="OBS"> <templateId root= "216.840.1.399276.07.02.22.4.2" /> <id nullFlavor="NA" /> < code codeSystem="local" code="MCH" displayName="MCH" /> <statusCode code="completed" /> <effectiveTime value="450014573630" /> < value unit="pg" xsi:type="PQ" value="29.7" /> <referenceRange> <observationRange> <text>27.0-32.0</text> </ observationRange> </referenceRange> </observation> </ component> <component> <observation moodCode="EVN" classCode="OBS"> <templateId root="216.840.1.667958.07.02.22.4.2" /> <id nullFlavor="NA" /> <code codeSystem="local" code="MCHC" displayName= "MCHC" /> <statusCode code="completed" /> <effectiveTime value ="957229586838" /> <value unit="g/dL" xsi:type="PQ" value="32.8" /> <referenceRange> <observationRange> <text>32.0- 36.0</text> </observationRange> </referenceRange> </ observation> </component> <component> <observation moodCode= "EVN" classCode="OBS"> <templateId root="16.840.1.201565.10.20.22.4.2 " /> <id nullFlavor="NA" /> <code codeSystem="local" code="MCV " displayName="MCV" /> <statusCode code="completed" /> < effectiveTime value="" /> <value unit="fL" xsi:type="PQ" value="90.3" /> <referenceRange> <observationRange> <text>82.0-99.0</text> </observationRange> </ referenceRange> </observation> </component> <component> <observation moodCode="EVN" classCode="OBS"> <templateId root= "10.29.840.1.433459.10..22.4.2" /> <id nullFlavor="NA" /> < code codeSystem="local" code="MONOR" displayName="Monocytes" /> < statusCode code="completed" /> <effectiveTime value="917961788398" /> <value unit="%" xsi:type="PQ" value="16" /> < interpretationCode codeSystem="local" code="*" /> <referenceRange> <observationRange> <text>4-11</text> </ observationRange> </referenceRange> </observation> </ component> <component> <observation moodCode="EVN" classCode="OBS"> <templateId root="10.29.840.1.109325.10.20.22.4.2" /> <id nullFlavor="NA" /> <code codeSystem="local" code="MPV" displayName="MPV " /> <statusCode code="completed" /> <effectiveTime value= "676515506260" /> <value unit="fL" xsi:type="PQ" value="10.5" /> <referenceRange> <observationRange> <text>9.4-12.3</ text> </observationRange> </referenceRange> </ observation> </component> <component> <observation moodCode= "EVN" classCode="OBS"> <templateId root="216.840.1.113471.10.2022.4.2 " /> <id nullFlavor="NA" /> <code codeSystem="local" code= "SEGR" displayName="Neutrophils" /> <statusCode code="completed" /> <effectiveTime value="" /> <value unit="%" xsi: type="PQ" value="52" /> <referenceRange> <observationRange> <text>51-75</text> </observationRange> </ referenceRange> </observation> </component> <component> <observation moodCode="EVN" classCode="OBS"> <templateId root= "10.29.840.1.487952.1022.4.2" /> <id nullFlavor="NA" /> < code codeSystem="local" code="NRBCA" displayName="Nucleated RBC Automated" /> <statusCode code="completed" /> <effectiveTime value= "226519698857" /> <value unit="/100WBC" xsi:type="PQ" value="0.0" /> <referenceRange> <observationRange> <text /> </observationRange> </referenceRange> </observation> </component> <component> <observation moodCode="EVN" classCode= "OBS"> <templateId root="10.29.840.1.905989.102022.4.2" /> < id nullFlavor="NA" /> <code codeSystem="local" code="PLT" displayName= "Platelet Count" /> <statusCode code="completed" /> < effectiveTime value="485203515271" /> <value unit="K/uL" xsi:type="PQ" value="207" /> <referenceRange> <observationRange> <text>150-400</text> </observationRange> </ referenceRange> </observation> </component> <component> <observation moodCode="EVN" classCode="OBS"> <templateId root= "2.16.840.1.337178.22.4.2" /> <id nullFlavor="NA" /> < code codeSystem="local" code="RBC" displayName="RBC" /> <statusCode code="completed" /> <effectiveTime value="241305757744" /> < value unit="10*6/uL" xsi:type="PQ" value="4.35" /> <interpretationCode codeSystem="local" code="*" /> <referenceRange> < observationRange> <text>4.60-6.20</text> </ observationRange> </referenceRange> </observation> </ component> <component> <observation moodCode="EVN" classCode="OBS"> <templateId root="216.840.1.371531.1022.4.2" /> <id nullFlavor="NA" /> <code codeSystem="local" code="RDW" displayName="RDW " /> <statusCode code="completed" /> <effectiveTime value= "371936802415" /> <value unit="%" xsi:type="PQ" value="14.9" /> <interpretationCode codeSystem="local" code="*" /> < referenceRange> <observationRange> <text>11.5-14.5</text > </observationRange> </referenceRange> </observation > </component> <component> <observation moodCode="EVN" classCode="OBS"> <templateId root="216.840.1.809604.07.02.22.4.2" /> <id nullFlavor="NA" /> <code codeSystem="local" code="WBCIR" displayName="WBC" /> <statusCode code="completed" /> < effectiveTime value="879795735838" /> <value unit="K/uL" xsi:type="PQ" value="7.0" /> <referenceRange> <observationRange> <text>4.8-10.8</text> </observationRange> </ referenceRange> </observation> </component> </organizer> </entry > <entry> <organizer moodCode="EVN" classCode="BATTERY"> <templateId root="16.840.1.896478.07.02..4.1" /> <id nullFlavor="NA" /> <code codeSystem="local" code="TROP" displayName="Troponin" /> <statusCode code= "completed" /> <component> <observation moodCode="EVN" classCode= "OBS"> <templateId root="16.840.1.566229...22.4.2" /> < id nullFlavor="NA" /> <code codeSystem="local" code="TROP" displayName= "Troponin" /> <statusCode code="completed" /> <effectiveTime value="109714766562" /> <value unit="ng/mL" xsi:type="PQ" value="< 0.05" /> <referenceRange> <observationRange> < text><0.06</text> </observationRange> </referenceRange> </observation> </component> </organizer> </entry> <entry> < organizer moodCode="EVN" classCode="BATTERY"> <templateId root= "16.840.1.543392...22.4.1" /> <id nullFlavor="NA" /> <code codeSystem="local" code="CMP" displayName="Comprehensive Metabolic Panel (CMP)" /> <statusCode code="completed" /> <component> <observation moodCode="EVN" classCode="OBS"> <templateId root= "16.840.1.154283.10...4.2" /> <id nullFlavor="NA" /> < code codeSystem="local" code="ALB" displayName="Albumin" /> < statusCode code="completed" /> <effectiveTime value="134001705259" /> <value unit="g/dL" xsi:type="PQ" value="3.6" /> < referenceRange> <observationRange> <text>3.5-4.8</text> </observationRange> </referenceRange> </observation > </component> <component> <observation moodCode="EVN" classCode="OBS"> <templateId root="10.29.840.1.692509.10.4.2" /> <id nullFlavor="NA" /> <code codeSystem="local" code="ALP" displayName="Alkaline Phosphatase" /> <statusCode code="completed" /> <effectiveTime value="530475494877" /> <value unit="U/L" xsi: type="PQ" value="79" /> <referenceRange> <observationRange> <text>26-104</text> </observationRange> </ referenceRange> </observation> </component> <component> <observation moodCode="EVN" classCode="OBS"> <templateId root= "10.29.840.1.590064.10..4.2" /> <id nullFlavor="NA" /> < code codeSystem="local" code="ALT" displayName="ALT (SGPT)" /> < statusCode code="completed" /> <effectiveTime value="359275455121" /> <value unit="U/L" xsi:type="PQ" value="41" /> <referenceRange > <observationRange> <text>17-63</text> </ observationRange> </referenceRange> </observation> </ component> <component> <observation moodCode="EVN" classCode="OBS"> <templateId root="216.840.1.135127.10..22.4.2" /> <id nullFlavor="NA" /> <code codeSystem="local" code="AGAP" displayName= "Anion Gap" /> <statusCode code="completed" /> <effectiveTime value="" /> <value unit="mEq/L" xsi:type="PQ" value="11" / > <referenceRange> <observationRange> <text>3- 20</text> </observationRange> </referenceRange> </ observation> </component> <component> <observation moodCode= "EVN" classCode="OBS"> <templateId root="216.840.1.547553.10...4.2 " /> <id nullFlavor="NA" /> <code codeSystem="local" code="AST " displayName="AST (SGOT)" /> <statusCode code="completed" /> <effectiveTime value="299993129339" /> <value unit="U/L" xsi:type="PQ" value="42" /> <interpretationCode codeSystem="local" code="*" /> <referenceRange> <observationRange> <text>15-41</ text> </observationRange> </referenceRange> </ observation> </component> <component> <observation moodCode= "EVN" classCode="OBS"> <templateId root="216.840.1.580033.10..22.4.2 " /> <id nullFlavor="NA" /> <code codeSystem="local" code= "BILIT" displayName="Bilirubin Total" /> <statusCode code="completed" / > <effectiveTime value="168776553982" /> <value unit="mg/dL" xsi:type="PQ" value="0.7" /> <referenceRange> < observationRange> <text>0.2-1.2</text> </ observationRange> </referenceRange> </observation> </ component> <component> <observation moodCode="EVN" classCode="OBS"> <templateId root="2.16.840.1.613273.10..22.4.2" /> <id nullFlavor="NA" /> <code codeSystem="local" code="BUN" displayName="BUN " /> <statusCode code="completed" /> <effectiveTime value= "303159883001" /> <value unit="mg/dL" xsi:type="PQ" value="9" /> <referenceRange> <observationRange> <text>4-20</text > </observationRange> </referenceRange> </observation > </component> <component> <observation moodCode="EVN" classCode="OBS"> <templateId root="216.840.1.551586.10..22.4.2" /> <id nullFlavor="NA" /> <code codeSystem="local" code="CA" displayName="Calcium" /> <statusCode code="completed" /> < effectiveTime value="004046098329" /> <value unit="mg/dL" xsi:type="PQ " value="9.1" /> <referenceRange> <observationRange> <text>8.6-10.0</text> </observationRange> </ referenceRange> </observation> </component> <component> <observation moodCode="EVN" classCode="OBS"> <templateId root= "216.840.1.987207.10.22.4.2" /> <id nullFlavor="NA" /> < code codeSystem="local" code="CL" displayName="Chloride" /> < statusCode code="completed" /> <effectiveTime value="888002247996" /> <value unit="mEq/L" xsi:type="PQ" value="106" /> < referenceRange> <observationRange> <text>99-109</text> </observationRange> </referenceRange> </observation> </component> <component> <observation moodCode="EVN" classCode ="OBS"> <templateId root="216.840.1.186748...4.2" /> < id nullFlavor="NA" /> <code codeSystem="local" code="CO2" displayName= "CO2" /> <statusCode code="completed" /> <effectiveTime value= "845449410625" /> <value unit="mEq/L" xsi:type="PQ" value="22" /> <referenceRange> <observationRange> <text>22-32</ text> </observationRange> </referenceRange> </ observation> </component> <component> <observation moodCode= "EVN" classCode="OBS"> <templateId root="10.29.840.1.767098.10.22.4.2 " /> <id nullFlavor="NA" /> <code codeSystem="local" code= "CREAT" displayName="Creatinine" /> <statusCode code="completed" /> <effectiveTime value="355326440856" /> <value unit="mg/dL" xsi: type="PQ" value="0.93" /> <referenceRange> <observationRange > <text>0.64-1.27</text> </observationRange> </ referenceRange> </observation> </component> <component> <observation moodCode="EVN" classCode="OBS"> <templateId root= "10.29.840.1.548931.1022.4.2" /> <id nullFlavor="NA" /> < code codeSystem="local" code="GLOB" displayName="Globulin" /> < statusCode code="completed" /> <effectiveTime value="" /> <value unit="g/dL" xsi:type="PQ" value="3.3" /> < referenceRange> <observationRange> <text>1.9-4.3</text> </observationRange> </referenceRange> </observation > </component> <component> <observation moodCode="EVN" classCode="OBS"> <templateId root="10.29.840.1.120021.07.02.22.4.2" /> <id nullFlavor="NA" /> <code codeSystem="local" code="GLU" displayName="Glucose" /> <statusCode code="completed" /> < effectiveTime value="" /> <value unit="mg/dL" xsi:type="PQ " value="86" /> <referenceRange> <observationRange> <text>70-100</text> </observationRange> </ referenceRange> </observation> </component> <component> <observation moodCode="EVN" classCode="OBS"> <templateId root= "10.29.840.1.236124.1022.4.2" /> <id nullFlavor="NA" /> < code codeSystem="local" code="K" displayName="Potassium" /> < statusCode code="completed" /> <effectiveTime value="696607760627" /> <value unit="mEq/L" xsi:type="PQ" value="3.5" /> < interpretationCode codeSystem="local" code="*" /> <referenceRange> <observationRange> <text>3.6-5.1</text> </ observationRange> </referenceRange> </observation> </ component> <component> <observation moodCode="EVN" classCode="OBS"> <templateId root="10.29.840.1.074333.10..22.4.2" /> <id nullFlavor="NA" /> <code codeSystem="local" code="TP" displayName= "Protein" /> <statusCode code="completed" /> <effectiveTime value="733463223282" /> <value unit="g/dL" xsi:type="PQ" value="6.9" / > <referenceRange> <observationRange> <text>6.1 -7.9</text> </observationRange> </referenceRange> </ observation> </component> <component> <observation moodCode= "EVN" classCode="OBS"> <templateId root="840.1.912104.07.02.22.4.2 " /> <id nullFlavor="NA" /> <code codeSystem="local" code="NA " displayName="Sodium" /> <statusCode code="completed" /> < effectiveTime value="453542010452" /> <value unit="mEq/L" xsi:type="PQ " value="139" /> <referenceRange> <observationRange> <text>136-144</text> </observationRange> </ referenceRange> </observation> </component> </organizer> </entry > <entry> <organizer moodCode="EVN" classCode="BATTERY"> <templateId root="840.1.903644.10..22.4.1" /> <id nullFlavor="NA" /> <code codeSystem="local" code="GFR" displayName="eGFR" /> <statusCode code= "completed" /> <component> <observation moodCode="EVN" classCode= "OBS"> <templateId root="2.16.840.1.511366.10..22.4.2" /> < id nullFlavor="NA" /> <code codeSystem="local" code="GFR" displayName= "eGFR" /> <statusCode code="completed" /> <effectiveTime value ="[id number]" /> <value unit="mL/min" xsi:type="PQ" value=">60" / > <referenceRange> <observationRange> <text>&gt ;60</text> </observationRange> </referenceRange> </ observation> </component> </organizer> </entry> <entry> <organizer moodCode="EVN" classCode="BATTERY"> <templateId root= "216.840.1.308208.10..22.4.1" /> <id nullFlavor="NA" /> <code codeSystem="local" code="CBCWD" displayName="CBC With Platelet and Differential " /> <statusCode code="completed" /> <component> <observation moodCode="EVN" classCode="OBS"> <templateId root= "2.16.840.1.084939.10..22.4.2" /> <id nullFlavor="NA" /> < code codeSystem="local" code="ABASR" displayName="Absolute Basophils" /> <statusCode code="completed" /> <effectiveTime value="147133517016" /> <value unit="10*3/uL" xsi:type="PQ" value="0.03" /> < referenceRange> <observationRange> <text>0.00-0.20</text > </observationRange> </referenceRange> </observation > </component> <component> <observation moodCode="EVN" classCode="OBS"> <templateId root="10.29.840.1.661265.10.2022.4.2" /> <id nullFlavor="NA" /> <code codeSystem="local" code="AEOSR" displayName="Absolute Eosinophils" /> <statusCode code="completed" /> <effectiveTime value="" /> <value unit="10*3/uL" xsi:type="PQ" value="0.78" /> <interpretationCode codeSystem="local" code="*" /> <referenceRange> <observationRange> <text>0.00-0.50</text> </observationRange> </ referenceRange> </observation> </component> <component> <observation moodCode="EVN" classCode="OBS"> <templateId root= "840.1.211057.1022.4.2" /> <id nullFlavor="NA" /> < code codeSystem="local" code="ALYMR" displayName="Absolute Lymphocytes" /> <statusCode code="completed" /> <effectiveTime value="556226348508 " /> <value unit="10*3/uL" xsi:type="PQ" value="1.84" /> < referenceRange> <observationRange> <text>0.80-3.30</text > </observationRange> </referenceRange> </observation > </component> <component> <observation moodCode="EVN" classCode="OBS"> <templateId root="10.29.840.1.094119.10.2022.4.2" /> <id nullFlavor="NA" /> <code codeSystem="local" code="AMONR" displayName="Absolute Monocytes" /> <statusCode code="completed" /> <effectiveTime value="564741772024" /> <value unit="10*3/uL" xsi :type="PQ" value="0.78" /> <referenceRange> < observationRange> <text>0.30-1.00</text> </ observationRange> </referenceRange> </observation> </ component> <component> <observation moodCode="EVN" classCode="OBS"> <templateId root="10.29.840.1.563832.10.20.22.4.2" /> <id nullFlavor="NA" /> <code codeSystem="local" code="ASEGR" displayName= "Absolute Neutrophils" /> <statusCode code="completed" /> < effectiveTime value="941229716557" /> <value unit="10*3/uL" xsi:type= "PQ" value="2.60" /> <referenceRange> <observationRange> <text>1.90-7.00</text> </observationRange> </ referenceRange> </observation> </component> <component> <observation moodCode="EVN" classCode="OBS"> <templateId root= "840.1.665746.10..4.2" /> <id nullFlavor="NA" /> < code codeSystem="local" code="BASOR" displayName="Basophils" /> < statusCode code="completed" /> <effectiveTime value="473911911175" /> <value unit="%" xsi:type="PQ" value="1" /> <referenceRange > <observationRange> <text>0-2</text> </ observationRange> </referenceRange> </observation> </ component> <component> <observation moodCode="EVN" classCode="OBS"> <templateId root="10.29.840.1.010138.10.2022.4.2" /> <id nullFlavor="NA" /> <code codeSystem="local" code="EOSR" displayName= "Eosinophils" /> <statusCode code="completed" /> < effectiveTime value="442732598388" /> <value unit="%" xsi:type="PQ " value="13" /> <interpretationCode codeSystem="local" code="*" /> <referenceRange> <observationRange> <text>0-4</ text> </observationRange> </referenceRange> </ observation> </component> <component> <observation moodCode= "EVN" classCode="OBS"> <templateId root="2.16.840.1.285041.10.20.22.4.2 " /> <id nullFlavor="NA" /> <code codeSystem="local" code="HCT " displayName="HCT" /> <statusCode code="completed" /> < effectiveTime value="234811894758" /> <value unit="%" xsi:type="PQ " value="37.0" /> <interpretationCode codeSystem="local" code="*" /> <referenceRange> <observationRange> <text>42.0- 52.0</text> </observationRange> </referenceRange> </ observation> </component> <component> <observation moodCode= "EVN" classCode="OBS"> <templateId root="2.16.840.1.363566.10.20.22.4.2 " /> <id nullFlavor="NA" /> <code codeSystem="local" code="HGB " displayName="HGB" /> <statusCode code="completed" /> < effectiveTime value="643266741997" /> <value unit="g/dL" xsi:type="PQ" value="12.2" /> <interpretationCode codeSystem="local" code="*" /> <referenceRange> <observationRange> <text>14.0- 18.0</text> </observationRange> </referenceRange> </ observation> </component> <component> <observation moodCode= "EVN" classCode="OBS"> <templateId root="216.840.1.674535.10.20.22.4.2 " /> <id nullFlavor="NA" /> <code codeSystem="local" code= "IMGA" displayName="Immature Granulocytes" /> <statusCode code= "completed" /> <effectiveTime value="" /> <value unit="%" xsi:type="PQ" value="0.5" /> <referenceRange> < observationRange> <text>0.0-1.0</text> </ observationRange> </referenceRange> </observation> </ component> <component> <observation moodCode="EVN" classCode="OBS"> <templateId root="16.840.1.314513.10..4.2" /> <id nullFlavor="NA" /> <code codeSystem="local" code="LYMPR" displayName= "Lymphocytes" /> <statusCode code="completed" /> < effectiveTime value="" /> <value unit="%" xsi:type="PQ " value="30" /> <referenceRange> <observationRange> <text>20-46</text> </observationRange> </ referenceRange> </observation> </component> <component> <observation moodCode="EVN" classCode="OBS"> <templateId root= "16.840.1.723279.10.20.22.4.2" /> <id nullFlavor="NA" /> < code codeSystem="local" code="MCH" displayName="MCH" /> <statusCode code="completed" /> <effectiveTime value="" /> < value unit="pg" xsi:type="PQ" value="29.8" /> <referenceRange> <observationRange> <text>27.0-32.0</text> </ observationRange> </referenceRange> </observation> </ component> <component> <observation moodCode="EVN" classCode="OBS"> <templateId root="16.840.1.942518.1022.4.2" /> <id nullFlavor="NA" /> <code codeSystem="local" code="MCHC" displayName= "MCHC" /> <statusCode code="completed" /> <effectiveTime value ="" /> <value unit="g/dL" xsi:type="PQ" value="33.0" /> <referenceRange> <observationRange> <text>32.0- 36.0</text> </observationRange> </referenceRange> </ observation> </component> <component> <observation moodCode= "EVN" classCode="OBS"> <templateId root="10.29.840.1.175815.07.02.22.4.2 " /> <id nullFlavor="NA" /> <code codeSystem="local" code="MCV " displayName="MCV" /> <statusCode code="completed" /> < effectiveTime value="" /> <value unit="fL" xsi:type="PQ" value="90.2" /> <referenceRange> <observationRange> <text>82.0-99.0</text> </observationRange> </ referenceRange> </observation> </component> <component> <observation moodCode="EVN" classCode="OBS"> <templateId root= "10.29.840.1.919721.07.02.22.4.2" /> <id nullFlavor="NA" /> < code codeSystem="local" code="MONOR" displayName="Monocytes" /> < statusCode code="completed" /> <effectiveTime value="" /> <value unit="%" xsi:type="PQ" value="13" /> < interpretationCode codeSystem="local" code="*" /> <referenceRange> <observationRange> <text>4-11</text> </ observationRange> </referenceRange> </observation> </ component> <component> <observation moodCode="EVN" classCode="OBS"> <templateId root="10.29.840.1.587121.10.22.4.2" /> <id nullFlavor="NA" /> <code codeSystem="local" code="MPV" displayName="MPV " /> <statusCode code="completed" /> <effectiveTime value= "642821514987" /> <value unit="fL" xsi:type="PQ" value="10.6" /> <referenceRange> <observationRange> <text>9.4-12.3</ text> </observationRange> </referenceRange> </ observation> </component> <component> <observation moodCode= "EVN" classCode="OBS"> <templateId root="10.29.840.1.139103.07.02.22.4.2 " /> <id nullFlavor="NA" /> <code codeSystem="local" code= "SEGR" displayName="Neutrophils" /> <statusCode code="completed" /> <effectiveTime value="884431501664" /> <value unit="%" xsi: type="PQ" value="43" /> <interpretationCode codeSystem="local" code="* " /> <referenceRange> <observationRange> <text> 51-75</text> </observationRange> </referenceRange> </ observation> </component> <component> <observation moodCode= "EVN" classCode="OBS"> <templateId root="10.29.840.1.233685..22.4.2 " /> <id nullFlavor="NA" /> <code codeSystem="local" code= "NRBCA" displayName="Nucleated RBC Automated" /> <statusCode code= "completed" /> <effectiveTime value="" /> <value unit="/100WBC" xsi:type="PQ" value="0.0" /> <referenceRange> <observationRange> <text /> </observationRange> </referenceRange> </observation> </component> <component> <observation moodCode="EVN" classCode="OBS"> <templateId root= "2.16.840.1.867110.10..22.4.2" /> <id nullFlavor="NA" /> < code codeSystem="local" code="PLT" displayName="Platelet Count" /> < statusCode code="completed" /> <effectiveTime value="" /> <value unit="K/uL" xsi:type="PQ" value="156" /> < referenceRange> <observationRange> <text>150-400</text> </observationRange> </referenceRange> </observation > </component> <component> <observation moodCode="EVN" classCode="OBS"> <templateId root="2.16.840.1.311776.10..22.4.2" /> <id nullFlavor="NA" /> <code codeSystem="local" code="RBC" displayName="RBC" /> <statusCode code="completed" /> < effectiveTime value="" /> <value unit="10*6/uL" xsi:type= "PQ" value="4.10" /> <interpretationCode codeSystem="local" code="*" / > <referenceRange> <observationRange> <text> 4.60-6.20</text> </observationRange> </referenceRange> </observation> </component> <component> <observation moodCode="EVN" classCode="OBS"> <templateId root= "10.29.840.1.333319.10.20.22.4.2" /> <id nullFlavor="NA" /> < code codeSystem="local" code="RDW" displayName="RDW" /> <statusCode code="completed" /> <effectiveTime value="405994746722" /> < value unit="%" xsi:type="PQ" value="14.4" /> <referenceRange> <observationRange> <text>11.5-14.5</text> </ observationRange> </referenceRange> </observation> </ component> <component> <observation moodCode="EVN" classCode="OBS"> <templateId root="840.1.758980.22.4.2" /> <id nullFlavor="NA" /> <code codeSystem="local" code="WBCIR" displayName= "WBC" /> <statusCode code="completed" /> <effectiveTime value= "936322287977" /> <value unit="K/uL" xsi:type="PQ" value="6.1" /> <referenceRange> <observationRange> <text>4.8-10.8< /text> </observationRange> </referenceRange> </ observation> </component> </organizer> </entry> <entry> <organizer moodCode="EVN" classCode="BATTERY"> <templateId root= "10.29.840.1.230757.10.20.22.4.1" /> <id nullFlavor="NA" /> <code codeSystem="local" code="CMP" displayName="Comprehensive Metabolic Panel (CMP)" /> <statusCode code="completed" /> <component> <observation moodCode="EVN" classCode="OBS"> <templateId root= "10.29.840.1.941257.10..22.4.2" /> <id nullFlavor="NA" /> < code codeSystem="local" code="ALB" displayName="Albumin" /> < statusCode code="completed" /> <effectiveTime value="507677180360" /> <value unit="g/dL" xsi:type="PQ" value="3.4" /> < interpretationCode codeSystem="local" code="*" /> <referenceRange> <observationRange> <text>3.5-4.8</text> </ observationRange> </referenceRange> </observation> </ component> <component> <observation moodCode="EVN" classCode="OBS"> <templateId root="10.29.840.1.830374.10..4.2" /> <id nullFlavor="NA" /> <code codeSystem="local" code="ALP" displayName= "Alkaline Phosphatase" /> <statusCode code="completed" /> < effectiveTime value="945371624895" /> <value unit="U/L" xsi:type="PQ" value="72" /> <referenceRange> <observationRange> <text>26-104</text> </observationRange> </referenceRange > </observation> </component> <component> <observation moodCode="EVN" classCode="OBS"> <templateId root= "10.29.840.1.478082.10..22.4.2" /> <id nullFlavor="NA" /> < code codeSystem="local" code="ALT" displayName="ALT (SGPT)" /> < statusCode code="completed" /> <effectiveTime value="912297242530" /> <value unit="U/L" xsi:type="PQ" value="37" /> <referenceRange > <observationRange> <text>17-63</text> </ observationRange> </referenceRange> </observation> </ component> <component> <observation moodCode="EVN" classCode="OBS"> <templateId root="216.840.1.356415.10..4.2" /> <id nullFlavor="NA" /> <code codeSystem="local" code="AGAP" displayName= "Anion Gap" /> <statusCode code="completed" /> <effectiveTime value="532856901898" /> <value unit="mEq/L" xsi:type="PQ" value="6" /> <referenceRange> <observationRange> <text>3-20 </text> </observationRange> </referenceRange> </ observation> </component> <component> <observation moodCode= "EVN" classCode="OBS"> <templateId root="10.29.840.1.530423.07.02.22.4.2 " /> <id nullFlavor="NA" /> <code codeSystem="local" code="AST " displayName="AST (SGOT)" /> <statusCode code="completed" /> <effectiveTime value="127528249702" /> <value unit="U/L" xsi:type="PQ" value="39" /> <referenceRange> <observationRange> <text>15-41</text> </observationRange> </referenceRange > </observation> </component> <component> <observation moodCode="EVN" classCode="OBS"> <templateId root= "16.840.1.259850...4.2" /> <id nullFlavor="NA" /> < code codeSystem="local" code="BILIT" displayName="Bilirubin Total" /> < statusCode code="completed" /> <effectiveTime value="996830185048" /> <value unit="mg/dL" xsi:type="PQ" value="0.7" /> < referenceRange> <observationRange> <text>0.2-1.2</text> </observationRange> </referenceRange> </observation > </component> <component> <observation moodCode="EVN" classCode="OBS"> <templateId root="10.29.840.1.764631.10..22.4.2" /> <id nullFlavor="NA" /> <code codeSystem="local" code="BUN" displayName="BUN" /> <statusCode code="completed" /> < effectiveTime value="387145404811" /> <value unit="mg/dL" xsi:type="PQ " value="14" /> <referenceRange> <observationRange> <text>4-20</text> </observationRange> </referenceRange > </observation> </component> <component> <observation moodCode="EVN" classCode="OBS"> <templateId root= "840.1.471271.07.02.22.4.2" /> <id nullFlavor="NA" /> < code codeSystem="local" code="CA" displayName="Calcium" /> <statusCode code="completed" /> <effectiveTime value="426846569024" /> < value unit="mg/dL" xsi:type="PQ" value="8.6" /> <referenceRange> <observationRange> <text>8.6-10.0</text> </ observationRange> </referenceRange> </observation> </ component> <component> <observation moodCode="EVN" classCode="OBS"> <templateId root="10.29.840.1.069277...22.4.2" /> <id nullFlavor="NA" /> <code codeSystem="local" code="CL" displayName= "Chloride" /> <statusCode code="completed" /> <effectiveTime value="409367275664" /> <value unit="mEq/L" xsi:type="PQ" value="103" / > <referenceRange> <observationRange> <text>99- 109</text> </observationRange> </referenceRange> </ observation> </component> <component> <observation moodCode= "EVN" classCode="OBS"> <templateId root="216.840.1.356077.1022.4.2 " /> <id nullFlavor="NA" /> <code codeSystem="local" code="CO2 " displayName="CO2" /> <statusCode code="completed" /> < effectiveTime value="041828812820" /> <value unit="mEq/L" xsi:type="PQ " value="24" /> <referenceRange> <observationRange> <text>22-32</text> </observationRange> </ referenceRange> </observation> </component> <component> <observation moodCode="EVN" classCode="OBS"> <templateId root= "10.29.840.1.152196.07.02.22.4.2" /> <id nullFlavor="NA" /> < code codeSystem="local" code="CREAT" displayName="Creatinine" /> < statusCode code="completed" /> <effectiveTime value="253379952182" /> <value unit="mg/dL" xsi:type="PQ" value="1.20" /> < referenceRange> <observationRange> <text>0.64-1.27</text > </observationRange> </referenceRange> </observation > </component> <component> <observation moodCode="EVN" classCode="OBS"> <templateId root="16.840.1.671220..2022.4.2" /> <id nullFlavor="NA" /> <code codeSystem="local" code="GLOB" displayName="Globulin" /> <statusCode code="completed" /> < effectiveTime value="874944188519" /> <value unit="g/dL" xsi:type="PQ" value="3.3" /> <referenceRange> <observationRange> <text>1.9-4.3</text> </observationRange> </ referenceRange> </observation> </component> <component> <observation moodCode="EVN" classCode="OBS"> <templateId root= "216.840.1.631700.10..22.4.2" /> <id nullFlavor="NA" /> < code codeSystem="local" code="GLU" displayName="Glucose" /> < statusCode code="completed" /> <effectiveTime value="139426249989" /> <value unit="mg/dL" xsi:type="PQ" value="114" /> < interpretationCode codeSystem="local" code="*" /> <referenceRange> <observationRange> <text>70-100</text> </ observationRange> </referenceRange> </observation> </ component> <component> <observation moodCode="EVN" classCode="OBS"> <templateId root="16.840.1.967817.10..22.4.2" /> <id nullFlavor="NA" /> <code codeSystem="local" code="K" displayName= "Potassium" /> <statusCode code="completed" /> <effectiveTime value="053374971903" /> <value unit="mEq/L" xsi:type="PQ" value="4.1" / > <referenceRange> <observationRange> <text>3.6 -5.1</text> </observationRange> </referenceRange> </ observation> </component> <component> <observation moodCode= "EVN" classCode="OBS"> <templateId root="10.29.840.1.675786.10..4.2 " /> <id nullFlavor="NA" /> <code codeSystem="local" code="TP " displayName="Protein" /> <statusCode code="completed" /> < effectiveTime value="555072194551" /> <value unit="g/dL" xsi:type="PQ" value="6.7" /> <referenceRange> <observationRange> <text>6.1-7.9</text> </observationRange> </ referenceRange> </observation> </component> <component> <observation moodCode="EVN" classCode="OBS"> <templateId root= "840.1.349489.07.02.22.4.2" /> <id nullFlavor="NA" /> < code codeSystem="local" code="NA" displayName="Sodium" /> <statusCode code="completed" /> <effectiveTime value="987614038549" /> < value unit="mEq/L" xsi:type="PQ" value="133" /> <interpretationCode codeSystem="local" code="*" /> <referenceRange> < observationRange> <text>136-144</text> </ observationRange> </referenceRange> </observation> </ component> </organizer> </entry> <entry> <organizer moodCode="EVN" classCode="BATTERY"> <templateId root="10.29.840.1.893185.10.4.1" /> <id nullFlavor="NA" /> <code codeSystem="local" code="GFR" displayName ="eGFR" /> <statusCode code="completed" /> <component> < observation moodCode="EVN" classCode="OBS"> <templateId root= "10.29.840.1.878994.10..22.4.2" /> <id nullFlavor="NA" /> < code codeSystem="local" code="GFR" displayName="eGFR" /> <statusCode code="completed" /> <effectiveTime value="637260829827" /> < value unit="mL/min" xsi:type="PQ" value=">60" /> <referenceRange> <observationRange> <text>>60</text> </ observationRange> </referenceRange> </observation> </ component> </organizer> </entry> <entry> <organizer moodCode="EVN" classCode="BATTERY"> <templateId root="16.840.1.845633.10..22.4.1" /> <id nullFlavor="NA" /> <code codeSystem="local" code="ALC" displayName ="Alcohol, Blood" /> <statusCode code="completed" /> <component> <observation moodCode="EVN" classCode="OBS"> <templateId root= "16.840.1.529948.10..22.4.2" /> <id nullFlavor="NA" /> < code codeSystem="local" code="ALC" displayName="Alcohol, Blood" /> < statusCode code="completed" /> <effectiveTime value="564326838996" /> <value unit="mg/dL" xsi:type="PQ" value="Not Detected" /> < referenceRange> <observationRange> <text /> < /observationRange> </referenceRange> </observation> </ component> </organizer> </entry> <entry> <organizer moodCode="EVN" classCode="BATTERY"> <templateId root="16.840.1.405568.10..22.4.1" /> <id nullFlavor="NA" /> <code codeSystem="local" code="VCHMN" displayName="Chem 8 NPT" /> <statusCode code="completed" /> <component > <observation moodCode="EVN" classCode="OBS"> <templateId root= "10.29.840.1.507433.10..4.2" /> <id nullFlavor="NA" /> < code codeSystem="local" code="VAGAP" displayName="Anion Gap" /> < statusCode code="completed" /> <effectiveTime value="506366731877" /> <value unit="mEq/L" xsi:type="PQ" value="10" /> < referenceRange> <observationRange> <text>3-20</text> </observationRange> </referenceRange> </observation> </component> <component> <observation moodCode="EVN" classCode= "OBS"> <templateId root="840.1.313720.07.02.22.4.2" /> < id nullFlavor="NA" /> <code codeSystem="local" code="VBUNN" displayName ="BUN Venous" /> <statusCode code="completed" /> < effectiveTime value="779151822056" /> <value unit="mg/dl" xsi:type="PQ " value="17" /> <referenceRange> <observationRange> <text>4-20</text> </observationRange> </referenceRange > </observation> </component> <component> <observation moodCode="EVN" classCode="OBS"> <templateId root= "840.1.923232.07.02.22.4.2" /> <id nullFlavor="NA" /> < code codeSystem="local" code="VCANN" displayName="Calcium Ionized Venous" /> <statusCode code="completed" /> <effectiveTime value= "152940050527" /> <value unit="mmol/L" xsi:type="PQ" value="1.11" /> <interpretationCode codeSystem="local" code="*" /> < referenceRange> <observationRange> <text>1.19-1.41</text > </observationRange> </referenceRange> </observation > </component> <component> <observation moodCode="EVN" classCode="OBS"> <templateId root="216.840.1.404810.22.4.2" /> <id nullFlavor="NA" /> <code codeSystem="local" code="VCREN" displayName="Creatinine Venous" /> <statusCode code="completed" /> <effectiveTime value="536872681196" /> <value unit="mg/dL" xsi: type="PQ" value="1.2" /> <referenceRange> <observationRange > <text>0.7-1.2</text> </observationRange> </ referenceRange> </observation> </component> <component> <observation moodCode="EVN" classCode="OBS"> <templateId root= "10.29.840.1.678021.07.02.22.4.2" /> <id nullFlavor="NA" /> < code codeSystem="local" code="VGLNN" displayName="Glucose Venous" /> < statusCode code="completed" /> <effectiveTime value="820470189249" /> <value unit="mg/dL" xsi:type="PQ" value="107" /> < interpretationCode codeSystem="local" code="*" /> <referenceRange> <observationRange> <text>70-100</text> </ observationRange> </referenceRange> </observation> </ component> <component> <observation moodCode="EVN" classCode="OBS"> <templateId root="10.29.840.1.278283.07.02.22.4.2" /> <id nullFlavor="NA" /> <code codeSystem="local" code="VKNN" displayName= "Potassium, WB" /> <statusCode code="completed" /> < effectiveTime value="145878128301" /> <value unit="mEq/L" xsi:type="PQ " value="4.2" /> <referenceRange> <observationRange> <text>3.6-5.1</text> </observationRange> </ referenceRange> </observation> </component> <component> <observation moodCode="EVN" classCode="OBS"> <templateId root= "216.840.1.589767.07.02.22.4.2" /> <id nullFlavor="NA" /> < code codeSystem="local" code="VNANN" displayName="Sodium Venous" /> < statusCode code="completed" /> <effectiveTime value="919056923468" /> <value unit="mEq/L" xsi:type="PQ" value="136" /> < referenceRange> <observationRange> <text>136-144</text> </observationRange> </referenceRange> </observation > </component> <component> <observation moodCode="EVN" classCode="OBS"> <templateId root="216.840.1.394123.07.02.22.4.2" /> <id nullFlavor="NA" /> <code codeSystem="local" code="VTCNN" displayName="Total CO2 Venous" /> <statusCode code="completed" /> <effectiveTime value="065672950562" /> <value unit="mEq/L" xsi: type="PQ" value="24" /> <interpretationCode codeSystem="local" code="* " /> <referenceRange> <observationRange> <text> 25-29</text> </observationRange> </referenceRange> </ observation> </component> <component> <observation moodCode= "EVN" classCode="OBS"> <templateId root="16.840.1.389344.10..22.4.2 " /> <id nullFlavor="NA" /> <code codeSystem="local" code= "VCLN" displayName="Venous CL" /> <statusCode code="completed" /> <effectiveTime value="721535746294" /> <value unit="mEq/L" xsi: type="PQ" value="102" /> <referenceRange> <observationRange > <text>99-109</text> </observationRange> </ referenceRange> </observation> </component> <component> <observation moodCode="EVN" classCode="OBS"> <templateId root= "16.840.1.953588...4.2" /> <id nullFlavor="NA" /> < code codeSystem="local" code="VHCNN" displayName="HCT Venous" /> < statusCode code="completed" /> <effectiveTime value="893637124901" /> <value unit="%" xsi:type="PQ" value="38.0" /> < interpretationCode codeSystem="local" code="*" /> <referenceRange> <observationRange> <text>42.0-52.0</text> </ observationRange> </referenceRange> </observation> </ component> <component> <observation moodCode="EVN" classCode="OBS"> <templateId root="10.29.840.1.426264.10.22.4.2" /> <id nullFlavor="NA" /> <code codeSystem="local" code="VHGNN" displayName= "HGB Venous NPT" /> <statusCode code="completed" /> < effectiveTime value="582106584982" /> <value unit="g/dL" xsi:type="PQ" value="12.9" /> <interpretationCode codeSystem="local" code="*" /> <referenceRange> <observationRange> <text>14.0- 16.0</text> </observationRange> </referenceRange> </ observation> </component> </organizer> </entry> <entry> <organizer moodCode="EVN" classCode="BATTERY"> <templateId root= "216.840.1.959063.10..22.4.1" /> <id nullFlavor="NA" /> <code codeSystem="local" code="LACTN" displayName="Lactic Acid NPT" /> < statusCode code="completed" /> <component> <observation moodCode= "EVN" classCode="OBS"> <templateId root="2.16.840.1.588557.10..22.4.2 " /> <id nullFlavor="NA" /> <code codeSystem="local" code= "LACTN" displayName="Lactic Acid NPT" /> <statusCode code="completed" / > <effectiveTime value="754531665124" /> <value unit="mEq/L" xsi:type="PQ" value="1.5" /> <referenceRange> < observationRange> <text>0.5-2.0</text> </ observationRange> </referenceRange> </observation> </ component> </organizer> </entry> <entry> <organizer moodCode="EVN" classCode="BATTERY"> <templateId root="2.16.840.1.268757.10..22.4.1" /> <id nullFlavor="NA" /> <code codeSystem="local" code="TROP" displayName="Troponin" /> <statusCode code="completed" /> <component> <observation moodCode="EVN" classCode="OBS"> <templateId root= "10.29.840.1.563197.10..22.4.2" /> <id nullFlavor="NA" /> < code codeSystem="local" code="TROP" displayName="Troponin" /> < statusCode code="completed" /> <effectiveTime value="195962158903" /> <value unit="ng/mL" xsi:type="PQ" value="<0.05" /> < referenceRange> <observationRange> <text><0.06</text > </observationRange> </referenceRange> </observation > </component> </organizer> </entry> <entry> <organizer moodCode= "EVN" classCode="BATTERY"> <templateId root="10.29.840.1.837266.10..22.4.1 " /> <id nullFlavor="NA" /> <code codeSystem="local" code="UA" displayName="Urinalysis with reflex microscopic" /> <statusCode code= "completed" /> <component> <observation moodCode="EVN" classCode= "OBS"> <templateId root="16.840.1.859791.10..22.4.2" /> < id nullFlavor="NA" /> <code codeSystem="local" code="UAPP" displayName= "Appearance" /> <statusCode code="completed" /> < effectiveTime value="835659733839" /> <value unit="NA" xsi:type="PQ" value="Cloudy" /> <interpretationCode codeSystem="local" code="*" /> <referenceRange> <observationRange> <text /> </observationRange> </referenceRange> </observation> </component> <component> <observation moodCode="EVN" classCode= "OBS"> <templateId root="16.840.1.226615.22.4.2" /> < id nullFlavor="NA" /> <code codeSystem="local" code="UBIL" displayName= "Bilirubin" /> <statusCode code="completed" /> <effectiveTime value="687870141085" /> <value unit="NA" xsi:type="PQ" value="Negative " /> <referenceRange> <observationRange> <text> Negative</text> </observationRange> </referenceRange> </observation> </component> <component> <observation moodCode ="EVN" classCode="OBS"> <templateId root= "216.840.1.409162.07.02.22.4.2" /> <id nullFlavor="NA" /> < code codeSystem="local" code="UBLD" displayName="Blood" /> <statusCode code="completed" /> <effectiveTime value="557950771339" /> < value unit="NA" xsi:type="PQ" value="Negative" /> <referenceRange> <observationRange> <text>Negative</text> </ observationRange> </referenceRange> </observation> </ component> <component> <observation moodCode="EVN" classCode="OBS"> <templateId root="216.840.1.664854....4.2" /> <id nullFlavor="NA" /> <code codeSystem="local" code="UCOLR" displayName= "Color" /> <statusCode code="completed" /> <effectiveTime value="115329759729" /> <value unit="NA" xsi:type="PQ" value="Leonila" / > <interpretationCode codeSystem="local" code="*" /> < referenceRange> <observationRange> <text /> < /observationRange> </referenceRange> </observation> </ component> <component> <observation moodCode="EVN" classCode="OBS"> <templateId root="10.29.840.1.148712.10...4.2" /> <id nullFlavor="NA" /> <code codeSystem="local" code="UGLU" displayName= "Glucose, Urine" /> <statusCode code="completed" /> < effectiveTime value="416997208590" /> <value unit="" xsi:type="PQ" value="Pos 1+" /> <interpretationCode codeSystem="local" code="*" /> <referenceRange> <observationRange> <text> Negative</text> </observationRange> </referenceRange> </observation> </component> <component> <observation moodCode ="EVN" classCode="OBS"> <templateId root= "10.29.840.1.403792.07.02.224.2" /> <id nullFlavor="NA" /> < code codeSystem="local" code="UKET" displayName="Ketones" /> < statusCode code="completed" /> <effectiveTime value="" /> <value unit="" xsi:type="PQ" value="Trace" /> < interpretationCode codeSystem="local" code="*" /> <referenceRange> <observationRange> <text>Negative</text> </ observationRange> </referenceRange> </observation> </ component> <component> <observation moodCode="EVN" classCode="OBS"> <templateId root="840.1.810095.10..4.2" /> <id nullFlavor="NA" /> <code codeSystem="local" code="ULEU" displayName= "Leukocyte Esterase" /> <statusCode code="completed" /> < effectiveTime value="868658603712" /> <value unit="NA" xsi:type="PQ" value="Negative" /> <referenceRange> <observationRange> <text>Negative</text> </observationRange> </ referenceRange> </observation> </component> <component> <observation moodCode="EVN" classCode="OBS"> <templateId root= "10.29.840.1.700427.10.4.2" /> <id nullFlavor="NA" /> < code codeSystem="local" code="UNIT" displayName="Nitrites" /> < statusCode code="completed" /> <effectiveTime value="" /> <value unit="NA" xsi:type="PQ" value="Negative" /> < referenceRange> <observationRange> <text>Negative</text > </observationRange> </referenceRange> </observation > </component> <component> <observation moodCode="EVN" classCode="OBS"> <templateId root="840.1.545805.07.02.22.4.2" /> <id nullFlavor="NA" /> <code codeSystem="local" code="UPH" displayName="pH" /> <statusCode code="completed" /> < effectiveTime value="629259096622" /> <value unit="NA" xsi:type="PQ" value="5.0" /> <referenceRange> <observationRange> <text>5.0-8.0</text> </observationRange> </ referenceRange> </observation> </component> <component> <observation moodCode="EVN" classCode="OBS"> <templateId root= "10.29.840.1.205078.07.02.22.4.2" /> <id nullFlavor="NA" /> < code codeSystem="local" code="UPRO" displayName="Protein" /> < statusCode code="completed" /> <effectiveTime value="729181210503" /> <value unit="NA" xsi:type="PQ" value="Pos 2+" /> < interpretationCode codeSystem="local" code="*" /> <referenceRange> <observationRange> <text>Negative</text> </ observationRange> </referenceRange> </observation> </ component> <component> <observation moodCode="EVN" classCode="OBS"> <templateId root="16.840.1.522548.1022.4.2" /> <id nullFlavor="NA" /> <code codeSystem="local" code="USPG" displayName= "Specific Casmalia" /> <statusCode code="completed" /> < effectiveTime value="250501113109" /> <value unit="NA" xsi:type="PQ" value="1.020" /> <referenceRange> <observationRange> <text>1.003-1.030</text> </observationRange> </ referenceRange> </observation> </component> <component> <observation moodCode="EVN" classCode="OBS"> <templateId root= "10.29.840.1.860309.22.4.2" /> <id nullFlavor="NA" /> < code codeSystem="local" code="UTYP" displayName="UA Collection type" /> <statusCode code="completed" /> <effectiveTime value="594036647140" / > <value unit="NA" xsi:type="PQ" value="Voided" /> < referenceRange> <observationRange> <text /> < /observationRange> </referenceRange> </observation> </ component> <component> <observation moodCode="EVN" classCode="OBS"> <templateId root="16.840.1.312335.22.4.2" /> <id nullFlavor="NA" /> <code codeSystem="local" code="UURO" displayName= "Urobilinogen" /> <statusCode code="completed" /> < effectiveTime value="871413880344" /> <value unit="mg/dL" xsi:type="PQ " value="4.0" /> <referenceRange> <observationRange> <text><1.0</text> </observationRange> </ referenceRange> </observation> </component> </organizer> </entry > <entry> <organizer moodCode="EVN" classCode="BATTERY"> <templateId root="16.840.1.298738.10...4.1" /> <id nullFlavor="NA" /> <code codeSystem="local" code="UMIC" displayName="Urine Microscopic" /> < statusCode code="completed" /> <component> <observation moodCode= "EVN" classCode="OBS"> <templateId root="16.840.1.992028.10...4.2 " /> <id nullFlavor="NA" /> <code codeSystem="local" code= "UBAC" displayName="Bacteria" /> <statusCode code="completed" /> <effectiveTime value="230274517515" /> <value unit="NA" xsi:type= "PQ" value="Moderate" /> <interpretationCode codeSystem="local" code="* " /> <referenceRange> <observationRange> <text /> </observationRange> </referenceRange> </ observation> </component> <component> <observation moodCode= "EVN" classCode="OBS"> <templateId root="10.29.840.1.903397.10.4.2 " /> <id nullFlavor="NA" /> <code codeSystem="local" code= "UCRY1" displayName="Crystals" /> <statusCode code="completed" /> <effectiveTime value="417057270480" /> <value unit="NA" xsi:type= "PQ" value="Amorphous" /> <referenceRange> <observationRange > <text /> </observationRange> </referenceRange > </observation> </component> <component> <observation moodCode="EVN" classCode="OBS"> <templateId root= "16.840.1.902920.1022.4.2" /> <id nullFlavor="NA" /> < code codeSystem="local" code="UEPI" displayName="Epithelial Cells" /> < statusCode code="completed" /> <effectiveTime value="980384501593" /> <value unit="/HPF" xsi:type="PQ" value="0" /> <referenceRange > <observationRange> <text /> </ observationRange> </referenceRange> </observation> </ component> <component> <observation moodCode="EVN" classCode="OBS"> <templateId root="16.840.1.420595.10..4.2" /> <id nullFlavor="NA" /> <code codeSystem="local" code="UHCST" displayName= "Hyaline Casts" /> <statusCode code="completed" /> < effectiveTime value="004668628637" /> <value unit="/LPF" xsi:type="PQ" value=">12" /> <interpretationCode codeSystem="local" code="*" /> <referenceRange> <observationRange> <text>0-3</ text> </observationRange> </referenceRange> </ observation> </component> <component> <observation moodCode= "EVN" classCode="OBS"> <templateId root="10.29.840.1.215123.10.22.4.2 " /> <id nullFlavor="NA" /> <code codeSystem="local" code= "URBC" displayName="RBC, Urine" /> <statusCode code="completed" /> <effectiveTime value="632234994803" /> <value unit="/HPF" xsi: type="PQ" value="2" /> <referenceRange> <observationRange> <text>0-2</text> </observationRange> </ referenceRange> </observation> </component> <component> <observation moodCode="EVN" classCode="OBS"> <templateId root= "216.840.1.374484.10..22.4.2" /> <id nullFlavor="NA" /> < code codeSystem="local" code="UMUC" displayName="Urine Mucus" /> < statusCode code="completed" /> <effectiveTime value="248134261820" /> <value unit="NA" xsi:type="PQ" value="Present" /> < referenceRange> <observationRange> <text /> < /observationRange> </referenceRange> </observation> </ component> <component> <observation moodCode="EVN" classCode="OBS"> <templateId root="2.16.840.1.972465.10..22.4.2" /> <id nullFlavor="NA" /> <code codeSystem="local" code="UWBC" displayName= "WBC, Urine" /> <statusCode code="completed" /> < effectiveTime value="240899870457" /> <value unit="/HPF" xsi:type="PQ" value="5" /> <interpretationCode codeSystem="local" code="*" /> <referenceRange> <observationRange> <text>0-4</text> </observationRange> </referenceRange> </observation > </component> </organizer> </entry> <entry> <organizer moodCode= "EVN" classCode="BATTERY"> <templateId root="10.29.840.1.783421.10..22.4.1 " /> <id nullFlavor="NA" /> <code codeSystem="local" code="CBCWD" displayName="CBC With Platelet and Differential" /> <statusCode code= "completed" /> <component> <observation moodCode="EVN" classCode= "OBS"> <templateId root="840.1.155593.07.02.22.4.2" /> < id nullFlavor="NA" /> <code codeSystem="local" code="ABASR" displayName ="Absolute Basophils" /> <statusCode code="completed" /> < effectiveTime value="032850129997" /> <value unit="10*3/uL" xsi:type= "PQ" value="0.03" /> <referenceRange> <observationRange> <text>0.00-0.20</text> </observationRange> </ referenceRange> </observation> </component> <component> <observation moodCode="EVN" classCode="OBS"> <templateId root= "840.1.568187.07.02.22.4.2" /> <id nullFlavor="NA" /> < code codeSystem="local" code="AEOSR" displayName="Absolute Eosinophils" /> <statusCode code="completed" /> <effectiveTime value="591151949174 " /> <value unit="10*3/uL" xsi:type="PQ" value="0.70" /> < interpretationCode codeSystem="local" code="*" /> <referenceRange> <observationRange> <text>0.00-0.50</text> </ observationRange> </referenceRange> </observation> </ component> <component> <observation moodCode="EVN" classCode="OBS"> <templateId root=".1.947317.07.02.22.4.2" /> <id nullFlavor="NA" /> <code codeSystem="local" code="ALYMR" displayName= "Absolute Lymphocytes" /> <statusCode code="completed" /> < effectiveTime value="742983138664" /> <value unit="10*3/uL" xsi:type= "PQ" value="2.06" /> <referenceRange> <observationRange> <text>0.80-3.30</text> </observationRange> </ referenceRange> </observation> </component> <component> <observation moodCode="EVN" classCode="OBS"> <templateId root= "16.840.1.229919.07.02.22.4.2" /> <id nullFlavor="NA" /> < code codeSystem="local" code="AMONR" displayName="Absolute Monocytes" /> <statusCode code="completed" /> <effectiveTime value="229644842319" /> <value unit="10*3/uL" xsi:type="PQ" value="0.61" /> < referenceRange> <observationRange> <text>0.30-1.00</text > </observationRange> </referenceRange> </observation > </component> <component> <observation moodCode="EVN" classCode="OBS"> <templateId root="10.29.840.1.873375.07.02.22.4.2" /> <id nullFlavor="NA" /> <code codeSystem="local" code="ASEGR" displayName="Absolute Neutrophils" /> <statusCode code="completed" /> <effectiveTime value="821274378639" /> <value unit="10*3/uL" xsi:type="PQ" value="1.32" /> <interpretationCode codeSystem="local" code="*" /> <referenceRange> <observationRange> <text>1.90-7.00</text> </observationRange> </ referenceRange> </observation> </component> <component> <observation moodCode="EVN" classCode="OBS"> <templateId root= "16.840.1.375494.10.2022.4.2" /> <id nullFlavor="NA" /> < code codeSystem="local" code="BASOR" displayName="Basophils" /> < statusCode code="completed" /> <effectiveTime value="290421002853" /> <value unit="%" xsi:type="PQ" value="1" /> <referenceRange > <observationRange> <text>0-2</text> </ observationRange> </referenceRange> </observation> </ component> <component> <observation moodCode="EVN" classCode="OBS"> <templateId root="840.1.186724.07.02.22.4.2" /> <id nullFlavor="NA" /> <code codeSystem="local" code="EOSR" displayName= "Eosinophils" /> <statusCode code="completed" /> < effectiveTime value="298448873677" /> <value unit="%" xsi:type="PQ " value="15" /> <interpretationCode codeSystem="local" code="*" /> <referenceRange> <observationRange> <text>0-4</ text> </observationRange> </referenceRange> </ observation> </component> <component> <observation moodCode= "EVN" classCode="OBS"> <templateId root="10.29.840.1.797719..22.4.2 " /> <id nullFlavor="NA" /> <code codeSystem="local" code="HCT " displayName="HCT" /> <statusCode code="completed" /> < effectiveTime value="853435555366" /> <value unit="%" xsi:type="PQ " value="36.5" /> <interpretationCode codeSystem="local" code="*" /> <referenceRange> <observationRange> <text>42.0- 52.0</text> </observationRange> </referenceRange> </ observation> </component> <component> <observation moodCode= "EVN" classCode="OBS"> <templateId root="2.16.840.1.805712.10.20.22.4.2 " /> <id nullFlavor="NA" /> <code codeSystem="local" code="HGB " displayName="HGB" /> <statusCode code="completed" /> < effectiveTime value="861354343881" /> <value unit="g/dL" xsi:type="PQ" value="12.0" /> <interpretationCode codeSystem="local" code="*" /> <referenceRange> <observationRange> <text>14.0- 18.0</text> </observationRange> </referenceRange> </ observation> </component> <component> <observation moodCode= "EVN" classCode="OBS"> <templateId root="2.16.840.1.805098.10.20.22.4.2 " /> <id nullFlavor="NA" /> <code codeSystem="local" code= "IMGA" displayName="Immature Granulocytes" /> <statusCode code= "completed" /> <effectiveTime value="349392316450" /> <value unit="%" xsi:type="PQ" value="1.0" /> <referenceRange> < observationRange> <text>0.0-1.0</text> </ observationRange> </referenceRange> </observation> </ component> <component> <observation moodCode="EVN" classCode="OBS"> <templateId root="10.29.840.1.921646.10.20.22.4.2" /> <id nullFlavor="NA" /> <code codeSystem="local" code="LYMPR" displayName= "Lymphocytes" /> <statusCode code="completed" /> < effectiveTime value="222267499567" /> <value unit="%" xsi:type="PQ " value="43" /> <referenceRange> <observationRange> <text>20-46</text> </observationRange> </ referenceRange> </observation> </component> <component> <observation moodCode="EVN" classCode="OBS"> <templateId root= "840.1.330212.10.4.2" /> <id nullFlavor="NA" /> < code codeSystem="local" code="MCH" displayName="MCH" /> <statusCode code="completed" /> <effectiveTime value="899290931590" /> < value unit="pg" xsi:type="PQ" value="29.9" /> <referenceRange> <observationRange> <text>27.0-32.0</text> </ observationRange> </referenceRange> </observation> </ component> <component> <observation moodCode="EVN" classCode="OBS"> <templateId root="840.1.219949.10.2022.4.2" /> <id nullFlavor="NA" /> <code codeSystem="local" code="MCHC" displayName= "MCHC" /> <statusCode code="completed" /> <effectiveTime value ="355782737460" /> <value unit="g/dL" xsi:type="PQ" value="32.9" /> <referenceRange> <observationRange> <text>32.0- 36.0</text> </observationRange> </referenceRange> </ observation> </component> <component> <observation moodCode= "EVN" classCode="OBS"> <templateId root="16.840.1.591442.10.22.4.2 " /> <id nullFlavor="NA" /> <code codeSystem="local" code="MCV " displayName="MCV" /> <statusCode code="completed" /> < effectiveTime value="898561793267" /> <value unit="fL" xsi:type="PQ" value="90.8" /> <referenceRange> <observationRange> <text>82.0-99.0</text> </observationRange> </ referenceRange> </observation> </component> <component> <observation moodCode="EVN" classCode="OBS"> <templateId root= "10.29.840.1.253833.07.02.22.4.2" /> <id nullFlavor="NA" /> < code codeSystem="local" code="MONOR" displayName="Monocytes" /> < statusCode code="completed" /> <effectiveTime value="230808329182" /> <value unit="%" xsi:type="PQ" value="13" /> < interpretationCode codeSystem="local" code="*" /> <referenceRange> <observationRange> <text>4-11</text> </ observationRange> </referenceRange> </observation> </ component> <component> <observation moodCode="EVN" classCode="OBS"> <templateId root="10.29.840.1.208035...4.2" /> <id nullFlavor="NA" /> <code codeSystem="local" code="MPV" displayName="MPV " /> <statusCode code="completed" /> <effectiveTime value= "087874877959" /> <value unit="fL" xsi:type="PQ" value="10.9" /> <referenceRange> <observationRange> <text>9.4-12.3</ text> </observationRange> </referenceRange> </ observation> </component> <component> <observation moodCode= "EVN" classCode="OBS"> <templateId root="216.840.1.293489.10..4.2 " /> <id nullFlavor="NA" /> <code codeSystem="local" code= "SEGR" displayName="Neutrophils" /> <statusCode code="completed" /> <effectiveTime value="707808168464" /> <value unit="%" xsi: type="PQ" value="28" /> <interpretationCode codeSystem="local" code="* " /> <referenceRange> <observationRange> <text> 51-75</text> </observationRange> </referenceRange> </ observation> </component> <component> <observation moodCode= "EVN" classCode="OBS"> <templateId root="840.1.999605.07.02.22.4.2 " /> <id nullFlavor="NA" /> <code codeSystem="local" code= "NRBCA" displayName="Nucleated RBC Automated" /> <statusCode code= "completed" /> <effectiveTime value="440411868326" /> <value unit="/100WBC" xsi:type="PQ" value="0.0" /> <referenceRange> <observationRange> <text /> </observationRange> </referenceRange> </observation> </component> <component> <observation moodCode="EVN" classCode="OBS"> <templateId root= "10.29.840.1.834975.10...4.2" /> <id nullFlavor="NA" /> < code codeSystem="local" code="PLT" displayName="Platelet Count" /> < statusCode code="completed" /> <effectiveTime value="634142817058" /> <value unit="K/uL" xsi:type="PQ" value="139" /> < interpretationCode codeSystem="local" code="*" /> <referenceRange> <observationRange> <text>150-400</text> </ observationRange> </referenceRange> </observation> </ component> <component> <observation moodCode="EVN" classCode="OBS"> <templateId root="2.16.840.1.990712.10.20.22.4.2" /> <id nullFlavor="NA" /> <code codeSystem="local" code="RBC" displayName="RBC " /> <statusCode code="completed" /> <effectiveTime value= "908851453240" /> <value unit="10*6/uL" xsi:type="PQ" value="4.02" /> <interpretationCode codeSystem="local" code="*" /> < referenceRange> <observationRange> <text>4.60-6.20</text > </observationRange> </referenceRange> </observation > </component> <component> <observation moodCode="EVN" classCode="OBS"> <templateId root="16.840.1.264054.10.20.22.4.2" /> <id nullFlavor="NA" /> <code codeSystem="local" code="RDW" displayName="RDW" /> <statusCode code="completed" /> < effectiveTime value="475860726505" /> <value unit="%" xsi:type="PQ " value="14.8" /> <interpretationCode codeSystem="local" code="*" /> <referenceRange> <observationRange> <text>11.5- 14.5</text> </observationRange> </referenceRange> </ observation> </component> <component> <observation moodCode= "EVN" classCode="OBS"> <templateId root="16.840.1.255703.10..22.4.2 " /> <id nullFlavor="NA" /> <code codeSystem="local" code= "WBCIR" displayName="WBC" /> <statusCode code="completed" /> < effectiveTime value="613355971848" /> <value unit="K/uL" xsi:type="PQ" value="4.8" /> <referenceRange> <observationRange> <text>4.8-10.8</text> </observationRange> </ referenceRange> </observation> </component> </organizer> </entry > <entry> <organizer moodCode="EVN" classCode="BATTERY"> <templateId root="216.840.1.520250.10..22.4.1" /> <id nullFlavor="NA" /> <code codeSystem="local" code="PHOS" displayName="Phosphorus" /> <statusCode code ="completed" /> <component> <observation moodCode="EVN" classCode= "OBS"> <templateId root="216.840.1.035750.10..22.4.2" /> < id nullFlavor="NA" /> <code codeSystem="local" code="PHOS" displayName= "Phosphorus" /> <statusCode code="completed" /> < effectiveTime value="[id number]" /> <value unit="mg/dL" xsi:type="PQ " value="4.6" /> <referenceRange> <observationRange> <text>2.4-4.7</text> </observationRange> </ referenceRange> </observation> </component> </organizer> </entry > <entry> <organizer moodCode="EVN" classCode="BATTERY"> <templateId root="10.29.840.1.419562.10..4.1" /> <id nullFlavor="NA" /> <code codeSystem="local" code="MG" displayName="Magnesium" /> <statusCode code= "completed" /> <component> <observation moodCode="EVN" classCode= "OBS"> <templateId root="840.1.425469.07.02.22.4.2" /> < id nullFlavor="NA" /> <code codeSystem="local" code="MG" displayName= "Magnesium" /> <statusCode code="completed" /> <effectiveTime value="[id number]" /> <value unit="mg/dL" xsi:type="PQ" value="1.8" / > <referenceRange> <observationRange> <text>1.8 -2.5</text> </observationRange> </referenceRange> </ observation> </component> </organizer> </entry> <entry> <organizer moodCode="EVN" classCode="BATTERY"> <templateId root= "840.1.787145.07.02.22.4.1" /> <id nullFlavor="NA" /> <code codeSystem="local" code="CMP" displayName="Comprehensive Metabolic Panel (CMP)" /> <statusCode code="completed" /> <component> <observation moodCode="EVN" classCode="OBS"> <templateId root= "10.29.840.1.802277.07.02.22.4.2" /> <id nullFlavor="NA" /> < code codeSystem="local" code="ALB" displayName="Albumin" /> < statusCode code="completed" /> <effectiveTime value="356790177316" /> <value unit="g/dL" xsi:type="PQ" value="3.0" /> < interpretationCode codeSystem="local" code="*" /> <referenceRange> <observationRange> <text>3.5-4.8</text> </ observationRange> </referenceRange> </observation> </ component> <component> <observation moodCode="EVN" classCode="OBS"> <templateId root="10.29.840.1.606870.10.22.4.2" /> <id nullFlavor="NA" /> <code codeSystem="local" code="ALP" displayName= "Alkaline Phosphatase" /> <statusCode code="completed" /> < effectiveTime value="[id number]" /> <value unit="U/L" xsi:type="PQ" value="66" /> <referenceRange> <observationRange> <text>26-104</text> </observationRange> </referenceRange > </observation> </component> <component> <observation moodCode="EVN" classCode="OBS"> <templateId root= "10.29.840.1.523736.07.02.22.4.2" /> <id nullFlavor="NA" /> < code codeSystem="local" code="ALT" displayName="ALT (SGPT)" /> < statusCode code="completed" /> <effectiveTime value="693285172751" /> <value unit="U/L" xsi:type="PQ" value="30" /> <referenceRange > <observationRange> <text>17-63</text> </ observationRange> </referenceRange> </observation> </ component> <component> <observation moodCode="EVN" classCode="OBS"> <templateId root="10.29.840.1.160201.10.22.4.2" /> <id nullFlavor="NA" /> <code codeSystem="local" code="AGAP" displayName= "Anion Gap" /> <statusCode code="completed" /> <effectiveTime value="876396083005" /> <value unit="mEq/L" xsi:type="PQ" value="8" /> <referenceRange> <observationRange> <text>3-20 </text> </observationRange> </referenceRange> </ observation> </component> <component> <observation moodCode= "EVN" classCode="OBS"> <templateId root="216.840.1.591422.10..22.4.2 " /> <id nullFlavor="NA" /> <code codeSystem="local" code="AST " displayName="AST (SGOT)" /> <statusCode code="completed" /> <effectiveTime value="952234965441" /> <value unit="U/L" xsi:type="PQ" value="31" /> <referenceRange> <observationRange> <text>15-41</text> </observationRange> </referenceRange > </observation> </component> <component> <observation moodCode="EVN" classCode="OBS"> <templateId root= "10.29.840.1.958615.10..22.4.2" /> <id nullFlavor="NA" /> < code codeSystem="local" code="BILIT" displayName="Bilirubin Total" /> < statusCode code="completed" /> <effectiveTime value="184957748728" /> <value unit="mg/dL" xsi:type="PQ" value="0.7" /> < referenceRange> <observationRange> <text>0.2-1.2</text> </observationRange> </referenceRange> </observation > </component> <component> <observation moodCode="EVN" classCode="OBS"> <templateId root="10.29.840.1.109861.22.4.2" /> <id nullFlavor="NA" /> <code codeSystem="local" code="BUN" displayName="BUN" /> <statusCode code="completed" /> < effectiveTime value="674823373443" /> <value unit="mg/dL" xsi:type="PQ " value="14" /> <referenceRange> <observationRange> <text>4-20</text> </observationRange> </referenceRange > </observation> </component> <component> <observation moodCode="EVN" classCode="OBS"> <templateId root= "216.840.1.147847...4.2" /> <id nullFlavor="NA" /> < code codeSystem="local" code="CA" displayName="Calcium" /> <statusCode code="completed" /> <effectiveTime value="433195703043" /> < value unit="mg/dL" xsi:type="PQ" value="8.1" /> <interpretationCode codeSystem="local" code="*" /> <referenceRange> < observationRange> <text>8.6-10.0</text> </ observationRange> </referenceRange> </observation> </ component> <component> <observation moodCode="EVN" classCode="OBS"> <templateId root="216.840.1.802411.22.4.2" /> <id nullFlavor="NA" /> <code codeSystem="local" code="CL" displayName= "Chloride" /> <statusCode code="completed" /> <effectiveTime value="604727921508" /> <value unit="mEq/L" xsi:type="PQ" value="109" / > <referenceRange> <observationRange> <text>99- 109</text> </observationRange> </referenceRange> </ observation> </component> <component> <observation moodCode= "EVN" classCode="OBS"> <templateId root="10.29.840.1.705819.10.4.2 " /> <id nullFlavor="NA" /> <code codeSystem="local" code="CO2 " displayName="CO2" /> <statusCode code="completed" /> < effectiveTime value="" /> <value unit="mEq/L" xsi:type="PQ " value="19" /> <interpretationCode codeSystem="local" code="*" /> <referenceRange> <observationRange> <text>22-32</ text> </observationRange> </referenceRange> </ observation> </component> <component> <observation moodCode= "EVN" classCode="OBS"> <templateId root="10.29.840.1.462050.07.02.22.4.2 " /> <id nullFlavor="NA" /> <code codeSystem="local" code= "CREAT" displayName="Creatinine" /> <statusCode code="completed" /> <effectiveTime value="" /> <value unit="mg/dL" xsi: type="PQ" value="0.99" /> <referenceRange> <observationRange > <text>0.64-1.27</text> </observationRange> </ referenceRange> </observation> </component> <component> <observation moodCode="EVN" classCode="OBS"> <templateId root= "10.29.840.1.628639.10.22.4.2" /> <id nullFlavor="NA" /> < code codeSystem="local" code="GLOB" displayName="Globulin" /> < statusCode code="completed" /> <effectiveTime value="" /> <value unit="g/dL" xsi:type="PQ" value="2.8" /> < referenceRange> <observationRange> <text>1.9-4.3</text> </observationRange> </referenceRange> </observation > </component> <component> <observation moodCode="EVN" classCode="OBS"> <templateId root="840.1.172754.10.22.4.2" /> <id nullFlavor="NA" /> <code codeSystem="local" code="GLU" displayName="Glucose" /> <statusCode code="completed" /> < effectiveTime value="999105739170" /> <value unit="mg/dL" xsi:type="PQ " value="80" /> <referenceRange> <observationRange> <text>70-100</text> </observationRange> </ referenceRange> </observation> </component> <component> <observation moodCode="EVN" classCode="OBS"> <templateId root= "840.1.656204.1022.4.2" /> <id nullFlavor="NA" /> < code codeSystem="local" code="K" displayName="Potassium" /> < statusCode code="completed" /> <effectiveTime value="079960671832" /> <value unit="mEq/L" xsi:type="PQ" value="4.1" /> < referenceRange> <observationRange> <text>3.6-5.1</text> </observationRange> </referenceRange> </observation > </component> <component> <observation moodCode="EVN" classCode="OBS"> <templateId root="840.1.332810.102022.4.2" /> <id nullFlavor="NA" /> <code codeSystem="local" code="TP" displayName="Protein" /> <statusCode code="completed" /> < effectiveTime value="187144965420" /> <value unit="g/dL" xsi:type="PQ" value="5.8" /> <interpretationCode codeSystem="local" code="*" /> <referenceRange> <observationRange> <text>6.1-7.9</ text> </observationRange> </referenceRange> </ observation> </component> <component> <observation moodCode= "EVN" classCode="OBS"> <templateId root="10.29.840.1.864522.10.22.4.2 " /> <id nullFlavor="NA" /> <code codeSystem="local" code="NA " displayName="Sodium" /> <statusCode code="completed" /> < effectiveTime value="198590180198" /> <value unit="mEq/L" xsi:type="PQ " value="136" /> <referenceRange> <observationRange> <text>136-144</text> </observationRange> </ referenceRange> </observation> </component> </organizer> </entry > <entry> <organizer moodCode="EVN" classCode="BATTERY"> <templateId root="10.29.840.1.422766..22.4.1" /> <id nullFlavor="NA" /> <code codeSystem="local" code="GFR" displayName="eGFR" /> <statusCode code= "completed" /> <component> <observation moodCode="EVN" classCode= "OBS"> <templateId root="10.29.840.1.394311.1022.4.2" /> < id nullFlavor="NA" /> <code codeSystem="local" code="GFR" displayName= "eGFR" /> <statusCode code="completed" /> <effectiveTime value ="754384477060" /> <value unit="mL/min" xsi:type="PQ" value=">60" / > <referenceRange> <observationRange> <text>&gt ;60</text> </observationRange> </referenceRange> </ observation> </component> </organizer> </entry> <entry> <organizer moodCode="EVN" classCode="BATTERY"> <templateId root= "10.29.840.1.106920.10..22.4.1" /> <id nullFlavor="NA" /> <code codeSystem="local" code="UDRGH" displayName="Urine Drug Screen" /> < statusCode code="completed" /> <component> <observation moodCode= "EVN" classCode="OBS"> <templateId root="10.29.840.1.242980.10...4.2 " /> <id nullFlavor="NA" /> <code codeSystem="local" code= "UTCA1" displayName="Tricyclics" /> <statusCode code="completed" /> <effectiveTime value="737834898838" /> <value unit="NA" xsi:type ="PQ" value="Not Detected" /> <referenceRange> < observationRange> <text /> </observationRange> </referenceRange> </observation> </component> </organizer> </ entry> <entry> <organizer moodCode="EVN" classCode="BATTERY"> < templateId root="10.29.840.1.953621.10..22.4.1" /> <id nullFlavor="NA" /> <code codeSystem="local" code="CBCWD" displayName="CBC With Platelet and Differential" /> <statusCode code="completed" /> <component> < observation moodCode="EVN" classCode="OBS"> <templateId root= "10.29.840.1.860752.10..22.4.2" /> <id nullFlavor="NA" /> < code codeSystem="local" code="ABASR" displayName="Absolute Basophils" /> <statusCode code="completed" /> <effectiveTime value="" /> <value unit="10*3/uL" xsi:type="PQ" value="0.03" /> < referenceRange> <observationRange> <text>0.00-0.20</text > </observationRange> </referenceRange> </observation > </component> <component> <observation moodCode="EVN" classCode="OBS"> <templateId root="2.16.840.1.046722...4.2" /> <id nullFlavor="NA" /> <code codeSystem="local" code="AEOSR" displayName="Absolute Eosinophils" /> <statusCode code="completed" /> <effectiveTime value="" /> <value unit="10*3/uL" xsi:type="PQ" value="1.27" /> <interpretationCode codeSystem="local" code="*" /> <referenceRange> <observationRange> <text>0.00-0.50</text> </observationRange> </ referenceRange> </observation> </component> <component> <observation moodCode="EVN" classCode="OBS"> <templateId root= "216.840.1.672557.1022.4.2" /> <id nullFlavor="NA" /> < code codeSystem="local" code="ALYMR" displayName="Absolute Lymphocytes" /> <statusCode code="completed" /> <effectiveTime value=" " /> <value unit="10*3/uL" xsi:type="PQ" value="2.56" /> < referenceRange> <observationRange> <text>0.80-3.30</text > </observationRange> </referenceRange> </observation > </component> <component> <observation moodCode="EVN" classCode="OBS"> <templateId root="216.840.1.494014.1022.4.2" /> <id nullFlavor="NA" /> <code codeSystem="local" code="AMONR" displayName="Absolute Monocytes" /> <statusCode code="completed" /> <effectiveTime value="" /> <value unit="10*3/uL" xsi :type="PQ" value="0.77" /> <referenceRange> < observationRange> <text>0.30-1.00</text> </ observationRange> </referenceRange> </observation> </ component> <component> <observation moodCode="EVN" classCode="OBS"> <templateId root="10.29.840.1.032247.07.02.22.4.2" /> <id nullFlavor="NA" /> <code codeSystem="local" code="ASEGR" displayName= "Absolute Neutrophils" /> <statusCode code="completed" /> < effectiveTime value="" /> <value unit="10*3/uL" xsi:type= "PQ" value="2.13" /> <referenceRange> <observationRange> <text>1.90-7.00</text> </observationRange> </ referenceRange> </observation> </component> <component> <observation moodCode="EVN" classCode="OBS"> <templateId root= "10.29.840.1.769518.1022.4.2" /> <id nullFlavor="NA" /> < code codeSystem="local" code="BASOR" displayName="Basophils" /> < statusCode code="completed" /> <effectiveTime value="" /> <value unit="%" xsi:type="PQ" value="0" /> <referenceRange > <observationRange> <text>0-2</text> </ observationRange> </referenceRange> </observation> </ component> <component> <observation moodCode="EVN" classCode="OBS"> <templateId root="10.29.840.1.363385.10.20.22.4.2" /> <id nullFlavor="NA" /> <code codeSystem="local" code="EOSR" displayName= "Eosinophils" /> <statusCode code="completed" /> < effectiveTime value="033118431986" /> <value unit="%" xsi:type="PQ " value="19" /> <interpretationCode codeSystem="local" code="*" /> <referenceRange> <observationRange> <text>0-4</ text> </observationRange> </referenceRange> </ observation> </component> <component> <observation moodCode= "EVN" classCode="OBS"> <templateId root="10.29.840.1.077446.07.02.22.4.2 " /> <id nullFlavor="NA" /> <code codeSystem="local" code="HCT " displayName="HCT" /> <statusCode code="completed" /> < effectiveTime value="" /> <value unit="%" xsi:type="PQ " value="37.9" /> <interpretationCode codeSystem="local" code="*" /> <referenceRange> <observationRange> <text>42.0- 52.0</text> </observationRange> </referenceRange> </ observation> </component> <component> <observation moodCode= "EVN" classCode="OBS"> <templateId root="10.29.840.1.726006.10.2022.4.2 " /> <id nullFlavor="NA" /> <code codeSystem="local" code="HGB " displayName="HGB" /> <statusCode code="completed" /> < effectiveTime value="" /> <value unit="g/dL" xsi:type="PQ" value="12.4" /> <interpretationCode codeSystem="local" code="*" /> <referenceRange> <observationRange> <text>14.0- 18.0</text> </observationRange> </referenceRange> </ observation> </component> <component> <observation moodCode= "EVN" classCode="OBS"> <templateId root="2.16.840.1.979910.07.02.22.4.2 " /> <id nullFlavor="NA" /> <code codeSystem="local" code= "IMGA" displayName="Immature Granulocytes" /> <statusCode code= "completed" /> <effectiveTime value="" /> <value unit="%" xsi:type="PQ" value="0.4" /> <referenceRange> < observationRange> <text>0.0-1.0</text> </ observationRange> </referenceRange> </observation> </ component> <component> <observation moodCode="EVN" classCode="OBS"> <templateId root="2.16.840.1.222876.1022.4.2" /> <id nullFlavor="NA" /> <code codeSystem="local" code="LYMPR" displayName= "Lymphocytes" /> <statusCode code="completed" /> < effectiveTime value="" /> <value unit="%" xsi:type="PQ " value="38" /> <referenceRange> <observationRange> <text>20-46</text> </observationRange> </ referenceRange> </observation> </component> <component> <observation moodCode="EVN" classCode="OBS"> <templateId root= "16.840.1.148930.10..22.4.2" /> <id nullFlavor="NA" /> < code codeSystem="local" code="MCH" displayName="MCH" /> <statusCode code="completed" /> <effectiveTime value="" /> < value unit="pg" xsi:type="PQ" value="29.7" /> <referenceRange> <observationRange> <text>27.0-32.0</text> </ observationRange> </referenceRange> </observation> </ component> <component> <observation moodCode="EVN" classCode="OBS"> <templateId root="10.29.840.1.046468.10..4.2" /> <id nullFlavor="NA" /> <code codeSystem="local" code="MCHC" displayName= "MCHC" /> <statusCode code="completed" /> <effectiveTime value ="" /> <value unit="g/dL" xsi:type="PQ" value="32.7" /> <referenceRange> <observationRange> <text>32.0- 36.0</text> </observationRange> </referenceRange> </ observation> </component> <component> <observation moodCode= "EVN" classCode="OBS"> <templateId root="10.29.840.1.382355.10..22.4.2 " /> <id nullFlavor="NA" /> <code codeSystem="local" code="MCV " displayName="MCV" /> <statusCode code="completed" /> < effectiveTime value="" /> <value unit="fL" xsi:type="PQ" value="90.7" /> <referenceRange> <observationRange> <text>82.0-99.0</text> </observationRange> </ referenceRange> </observation> </component> <component> <observation moodCode="EVN" classCode="OBS"> <templateId root= "16.840.1.538469.10.22.4.2" /> <id nullFlavor="NA" /> < code codeSystem="local" code="MONOR" displayName="Monocytes" /> < statusCode code="completed" /> <effectiveTime value="" /> <value unit="%" xsi:type="PQ" value="11" /> < referenceRange> <observationRange> <text>4-11</text> </observationRange> </referenceRange> </observation> </component> <component> <observation moodCode="EVN" classCode= "OBS"> <templateId root="10.29.840.1.111806.07.02.22.4.2" /> < id nullFlavor="NA" /> <code codeSystem="local" code="MPV" displayName= "MPV" /> <statusCode code="completed" /> <effectiveTime value= "" /> <value unit="fL" xsi:type="PQ" value="10.7" /> <referenceRange> <observationRange> <text>9.4-12.3</ text> </observationRange> </referenceRange> </ observation> </component> <component> <observation moodCode= "EVN" classCode="OBS"> <templateId root="10.29.840.1.267210..22.4.2 " /> <id nullFlavor="NA" /> <code codeSystem="local" code= "SEGR" displayName="Neutrophils" /> <statusCode code="completed" /> <effectiveTime value="457221938319" /> <value unit="%" xsi: type="PQ" value="32" /> <interpretationCode codeSystem="local" code="* " /> <referenceRange> <observationRange> <text> 51-75</text> </observationRange> </referenceRange> </ observation> </component> <component> <observation moodCode= "EVN" classCode="OBS"> <templateId root="16.840.1.831424.1022.4.2 " /> <id nullFlavor="NA" /> <code codeSystem="local" code= "NRBCA" displayName="Nucleated RBC Automated" /> <statusCode code= "completed" /> <effectiveTime value="" /> <value unit="/100WBC" xsi:type="PQ" value="0.0" /> <referenceRange> <observationRange> <text /> </observationRange> </referenceRange> </observation> </component> <component> <observation moodCode="EVN" classCode="OBS"> <templateId root= "840.1.482504.07.02.22.4.2" /> <id nullFlavor="NA" /> < code codeSystem="local" code="PLT" displayName="Platelet Count" /> < statusCode code="completed" /> <effectiveTime value="" /> <value unit="K/uL" xsi:type="PQ" value="160" /> < referenceRange> <observationRange> <text>150-400</text> </observationRange> </referenceRange> </observation > </component> <component> <observation moodCode="EVN" classCode="OBS"> <templateId root="10.29.840.1.836928.10.2022.4.2" /> <id nullFlavor="NA" /> <code codeSystem="local" code="RBC" displayName="RBC" /> <statusCode code="completed" /> < effectiveTime value="" /> <value unit="10*6/uL" xsi:type= "PQ" value="4.18" /> <interpretationCode codeSystem="local" code="*" / > <referenceRange> <observationRange> <text> 4.60-6.20</text> </observationRange> </referenceRange> </observation> </component> <component> <observation moodCode="EVN" classCode="OBS"> <templateId root= "2.16.840.1.833683.10.20.22.4.2" /> <id nullFlavor="NA" /> < code codeSystem="local" code="RDW" displayName="RDW" /> <statusCode code="completed" /> <effectiveTime value="" /> < value unit="%" xsi:type="PQ" value="14.8" /> <interpretationCode codeSystem="local" code="*" /> <referenceRange> < observationRange> <text>11.5-14.5</text> </ observationRange> </referenceRange> </observation> </ component> <component> <observation moodCode="EVN" classCode="OBS"> <templateId root="2.16.840.1.963763.10.20.22.4.2" /> <id nullFlavor="NA" /> <code codeSystem="local" code="WBCIR" displayName= "WBC" /> <statusCode code="completed" /> <effectiveTime value= "" /> <value unit="K/uL" xsi:type="PQ" value="6.8" /> <referenceRange> <observationRange> <text>4.8-10.8< /text> </observationRange> </referenceRange> </ observation> </component> </organizer> </entry> <entry> <organizer moodCode="EVN" classCode="BATTERY"> <templateId root= "840.1.815390.07.02.22.4.1" /> <id nullFlavor="NA" /> <code codeSystem="local" code="MG" displayName="Magnesium" /> <statusCode code= "completed" /> <component> <observation moodCode="EVN" classCode= "OBS"> <templateId root="840.1.165283.07.02.224.2" /> < id nullFlavor="NA" /> <code codeSystem="local" code="MG" displayName= "Magnesium" /> <statusCode code="completed" /> <effectiveTime value="187127837028" /> <value unit="mg/dL" xsi:type="PQ" value="1.9" / > <referenceRange> <observationRange> <text>1.8 -2.5</text> </observationRange> </referenceRange> </ observation> </component> </organizer> </entry> <entry> <organizer moodCode="EVN" classCode="BATTERY"> <templateId root= "840.1.029986.07.02.22.4.1" /> <id nullFlavor="NA" /> <code codeSystem="local" code="RENAL" displayName="Renal Function Panel" /> < statusCode code="completed" /> <component> <observation moodCode= "EVN" classCode="OBS"> <templateId root="840.1.030686.07.02.22.4.2 " /> <id nullFlavor="NA" /> <code codeSystem="local" code="ALB " displayName="Albumin" /> <statusCode code="completed" /> < effectiveTime value="" /> <value unit="g/dL" xsi:type="PQ" value="3.4" /> <interpretationCode codeSystem="local" code="*" /> <referenceRange> <observationRange> <text>3.5-4.8</ text> </observationRange> </referenceRange> </ observation> </component> <component> <observation moodCode= "EVN" classCode="OBS"> <templateId root="10.29.840.1.113897.10.22.4.2 " /> <id nullFlavor="NA" /> <code codeSystem="local" code= "AGAP" displayName="Anion Gap" /> <statusCode code="completed" /> <effectiveTime value="" /> <value unit="mEq/L" xsi: type="PQ" value="7" /> <referenceRange> <observationRange> <text>3-20</text> </observationRange> </ referenceRange> </observation> </component> <component> <observation moodCode="EVN" classCode="OBS"> <templateId root= "840.1.121106.22.4.2" /> <id nullFlavor="NA" /> < code codeSystem="local" code="BUN" displayName="BUN" /> <statusCode code="completed" /> <effectiveTime value="" /> < value unit="mg/dL" xsi:type="PQ" value="12" /> <referenceRange> <observationRange> <text>4-20</text> </ observationRange> </referenceRange> </observation> </ component> <component> <observation moodCode="EVN" classCode="OBS"> <templateId root="10.29.840.1.706454..22.4.2" /> <id nullFlavor="NA" /> <code codeSystem="local" code="CA" displayName= "Calcium" /> <statusCode code="completed" /> <effectiveTime value="" /> <value unit="mg/dL" xsi:type="PQ" value="8.7" / > <referenceRange> <observationRange> <text>8.6 -10.0</text> </observationRange> </referenceRange> </ observation> </component> <component> <observation moodCode= "EVN" classCode="OBS"> <templateId root="216.840.1.807703.10..22.4.2 " /> <id nullFlavor="NA" /> <code codeSystem="local" code="CL " displayName="Chloride" /> <statusCode code="completed" /> < effectiveTime value="" /> <value unit="mEq/L" xsi:type="PQ " value="107" /> <referenceRange> <observationRange> <text>99-109</text> </observationRange> </ referenceRange> </observation> </component> <component> <observation moodCode="EVN" classCode="OBS"> <templateId root= "16.840.1.769600.10.20.22.4.2" /> <id nullFlavor="NA" /> < code codeSystem="local" code="CO2" displayName="CO2" /> <statusCode code="completed" /> <effectiveTime value="" /> < value unit="mEq/L" xsi:type="PQ" value="24" /> <referenceRange> <observationRange> <text>22-32</text> </ observationRange> </referenceRange> </observation> </ component> <component> <observation moodCode="EVN" classCode="OBS"> <templateId root="10.29.840.1.192304.22.4.2" /> <id nullFlavor="NA" /> <code codeSystem="local" code="CREAT" displayName= "Creatinine" /> <statusCode code="completed" /> < effectiveTime value="" /> <value unit="mg/dL" xsi:type="PQ " value="0.92" /> <referenceRange> <observationRange> <text>0.64-1.27</text> </observationRange> </ referenceRange> </observation> </component> <component> <observation moodCode="EVN" classCode="OBS"> <templateId root= "10.29.840.1.660772.07.02.22.4.2" /> <id nullFlavor="NA" /> < code codeSystem="local" code="GLU" displayName="Glucose" /> < statusCode code="completed" /> <effectiveTime value="" /> <value unit="mg/dL" xsi:type="PQ" value="82" /> < referenceRange> <observationRange> <text>70-100</text> </observationRange> </referenceRange> </observation> </component> <component> <observation moodCode="EVN" classCode ="OBS"> <templateId root="10.29.840.1.771307.22.4.2" /> < id nullFlavor="NA" /> <code codeSystem="local" code="PHOS" displayName= "Phosphorus" /> <statusCode code="completed" /> < effectiveTime value="" /> <value unit="mg/dL" xsi:type="PQ " value="4.4" /> <referenceRange> <observationRange> <text>2.4-4.7</text> </observationRange> </ referenceRange> </observation> </component> <component> <observation moodCode="EVN" classCode="OBS"> <templateId root= "10.29.840.1.093951.07.02.22.4.2" /> <id nullFlavor="NA" /> < code codeSystem="local" code="K" displayName="Potassium" /> < statusCode code="completed" /> <effectiveTime value="[id number]" /> <value unit="mEq/L" xsi:type="PQ" value="4.6" /> < referenceRange> <observationRange> <text>3.6-5.1</text> </observationRange> </referenceRange> </observation > </component> <component> <observation moodCode="EVN" classCode="OBS"> <templateId root="840.1.081357.07.02.22.4.2" /> <id nullFlavor="NA" /> <code codeSystem="local" code="NA" displayName="Sodium" /> <statusCode code="completed" /> < effectiveTime value="" /> <value unit="mEq/L" xsi:type="PQ " value="138" /> <referenceRange> <observationRange> <text>136-144</text> </observationRange> </ referenceRange> </observation> </component> </organizer> </entry > <entry> <organizer moodCode="EVN" classCode="BATTERY"> <templateId root="10.29.840.1.375596.07.02.22.4.1" /> <id nullFlavor="NA" /> <code codeSystem="local" code="GFR" displayName="eGFR" /> <statusCode code= "completed" /> <component> <observation moodCode="EVN" classCode= "OBS"> <templateId root="10.29.840.1.799086.22.4.2" /> < id nullFlavor="NA" /> <code codeSystem="local" code="GFR" displayName= "eGFR" /> <statusCode code="completed" /> <effectiveTime value ="[id number]" /> <value unit="mL/min" xsi:type="PQ" value=">60" / > <referenceRange> <observationRange> <text>&gt ;60</text> </observationRange> </referenceRange> </ observation> </component> </organizer> </entry> <entry> <organizer moodCode="EVN" classCode="BATTERY"> <templateId root= "216.840.1.174970.10..22.4.1" /> <id nullFlavor="NA" /> <code codeSystem="local" code="BNP" displayName="B-TYPE NATRIURETIC PEPTIDE" /> < statusCode code="completed" /> <component> <observation moodCode= "EVN" classCode="OBS"> <templateId root="216.840.1.820944.10..22.4.2 " /> <id nullFlavor="NA" /> <code codeSystem="local" code="BNP " displayName="B-TYPE NATRIURETIC PEPTIDE" /> <statusCode code= "completed" /> <effectiveTime value="649008553882" /> <value unit="pg/mL" xsi:type="PQ" value="1119" /> <interpretationCode codeSystem="local" code="*" /> <referenceRange> < observationRange> <text>< 100</text> </ observationRange> </referenceRange> </observation> </ component> </organizer> </entry> <entry> <organizer moodCode="EVN" classCode="BATTERY"> <templateId root="216.840.1.654355.10.4.1" /> <id nullFlavor="NA" /> <code codeSystem="local" code="CBCD" displayName="CBC W/DIFF" /> <statusCode code="completed" /> <component > <observation moodCode="EVN" classCode="OBS"> <templateId root= "840.1.840681.07.02.224.2" /> <id nullFlavor="NA" /> < code codeSystem="local" code="BA#" displayName="BASOPHIL #" /> < statusCode code="completed" /> <effectiveTime value="" /> <value unit="k/cumm" xsi:type="PQ" value="0.0" /> < referenceRange> <observationRange> <text>0.0-0.2</text> </observationRange> </referenceRange> </observation > </component> <component> <observation moodCode="EVN" classCode="OBS"> <templateId root="840.1.560661.07.02.224.2" /> <id nullFlavor="NA" /> <code codeSystem="local" code="BA% " displayName="BASOPHIL %" /> <statusCode code="completed" /> <effectiveTime value="" /> <value unit="%" xsi: type="PQ" value="0.7" /> <referenceRange> <observationRange > <text>0-1</text> </observationRange> </ referenceRange> </observation> </component> <component> <observation moodCode="EVN" classCode="OBS"> <templateId root= "10.29.840.1.263299.07.02.22.4.2" /> <id nullFlavor="NA" /> < code codeSystem="local" code="EO#" displayName="EOSINOPHIL #" /> < statusCode code="completed" /> <effectiveTime value="" /> <value unit="k/cumm" xsi:type="PQ" value="1.0" /> < interpretationCode codeSystem="local" code="*" /> <referenceRange> <observationRange> <text>0.1-0.5</text> </ observationRange> </referenceRange> </observation> </ component> <component> <observation moodCode="EVN" classCode="OBS"> <templateId root="2.16.840.1.344641.10..22.4.2" /> <id nullFlavor="NA" /> <code codeSystem="local" code="EO%" displayName= "EOSINOPHIL %" /> <statusCode code="completed" /> < effectiveTime value="" /> <value unit="%" xsi:type="PQ " value="17.4" /> <interpretationCode codeSystem="local" code="*" /> <referenceRange> <observationRange> <text>2-4</ text> </observationRange> </referenceRange> </ observation> </component> <component> <observation moodCode= "EVN" classCode="OBS"> <templateId root="216.840.1.816682.10.20.22.4.2 " /> <id nullFlavor="NA" /> <code codeSystem="local" code="GR# " displayName="GRANULOCYTE #" /> <statusCode code="completed" /> <effectiveTime value="" /> <value unit="k/cumm" xsi: type="PQ" value="2.4" /> <referenceRange> <observationRange > <text>2.0-9.0</text> </observationRange> </ referenceRange> </observation> </component> <component> <observation moodCode="EVN" classCode="OBS"> <templateId root= "2.16.840.1.006652.10.22.4.2" /> <id nullFlavor="NA" /> < code codeSystem="local" code="GR%" displayName="GRANULOCYTE %" /> <statusCode code="completed" /> <effectiveTime value="606027397183 " /> <value unit="%" xsi:type="PQ" value="41.8" /> < interpretationCode codeSystem="local" code="*" /> <referenceRange> <observationRange> <text>50-75</text> </ observationRange> </referenceRange> </observation> </ component> <component> <observation moodCode="EVN" classCode="OBS"> <templateId root="16.840.1.285315.07.02.22.4.2" /> <id nullFlavor="NA" /> <code codeSystem="local" code="LY#" displayName= "LYMPHOCYTE #" /> <statusCode code="completed" /> < effectiveTime value="" /> <value unit="k/cumm" xsi:type="PQ " value="1.6" /> <referenceRange> <observationRange> <text>1.0-4.0</text> </observationRange> </ referenceRange> </observation> </component> <component> <observation moodCode="EVN" classCode="OBS"> <templateId root= "216.840.1.912393.1022.4.2" /> <id nullFlavor="NA" /> < code codeSystem="local" code="LY%" displayName="LYMPHOCYTE %" /> <statusCode code="completed" /> <effectiveTime value="558996827572" /> <value unit="%" xsi:type="PQ" value="27.7" /> < referenceRange> <observationRange> <text>20-30</text> </observationRange> </referenceRange> </observation> </component> <component> <observation moodCode="EVN" classCode= "OBS"> <templateId root="216.840.1.112996.10..22.4.2" /> < id nullFlavor="NA" /> <code codeSystem="local" code="MCH" displayName= "MEAN CELL HGB" /> <statusCode code="completed" /> < effectiveTime value="807129349322" /> <value unit="pg" xsi:type="PQ" value="29.1" /> <referenceRange> <observationRange> <text>27.0-33.0</text> </observationRange> </ referenceRange> </observation> </component> <component> <observation moodCode="EVN" classCode="OBS"> <templateId root= "216.840.1.238983.10...4.2" /> <id nullFlavor="NA" /> < code codeSystem="local" code="MCHC" displayName="MEAN CELL HGB CONCENTRATION" / > <statusCode code="completed" /> <effectiveTime value= "" /> <value unit="g/dL" xsi:type="PQ" value="33.0" /> <referenceRange> <observationRange> <text>32.0- 37.0</text> </observationRange> </referenceRange> </ observation> </component> <component> <observation moodCode= "EVN" classCode="OBS"> <templateId root="216.840.1.295359.10.20.22.4.2 " /> <id nullFlavor="NA" /> <code codeSystem="local" code="MCV " displayName="MEAN CELL VOLUME" /> <statusCode code="completed" /> <effectiveTime value="088410160440" /> <value unit="fl" xsi:type ="PQ" value="88.1" /> <referenceRange> <observationRange> <text>80.0-100.0</text> </observationRange> </ referenceRange> </observation> </component> <component> <observation moodCode="EVN" classCode="OBS"> <templateId root= "16.840.1.901136.10.20.22.4.2" /> <id nullFlavor="NA" /> < code codeSystem="local" code="MO#" displayName="MONOCYTE #" /> < statusCode code="completed" /> <effectiveTime value="" /> <value unit="k/cumm" xsi:type="PQ" value="0.7" /> < referenceRange> <observationRange> <text>0.1-1.0</text> </observationRange> </referenceRange> </observation > </component> <component> <observation moodCode="EVN" classCode="OBS"> <templateId root="16.840.1.967640.10.20.22.4.2" /> <id nullFlavor="NA" /> <code codeSystem="local" code="MO% " displayName="MONOCYTE %" /> <statusCode code="completed" /> <effectiveTime value="" /> <value unit="%" xsi: type="PQ" value="11.7" /> <interpretationCode codeSystem="local" code= "*" /> <referenceRange> <observationRange> < text>4-6</text> </observationRange> </referenceRange> </observation> </component> <component> <observation moodCode ="EVN" classCode="OBS"> <templateId root= "216.840.1.024923.10..22.4.2" /> <id nullFlavor="NA" /> < code codeSystem="local" code="MPVT" displayName="MEAN PLATELET VOLUME" /> <statusCode code="completed" /> <effectiveTime value=" " /> <value unit="fl" xsi:type="PQ" value="11.0" /> < interpretationCode codeSystem="local" code="*" /> <referenceRange> <observationRange> <text>8.5-10.9</text> </ observationRange> </referenceRange> </observation> </ component> <component> <observation moodCode="EVN" classCode="OBS"> <templateId root="16.840.1.547369.07.02.22.4.2" /> <id nullFlavor="NA" /> <code codeSystem="local" code="RBC" displayName=" RED BLOOD CELL" /> <statusCode code="completed" /> < effectiveTime value="" /> <value unit="m/cumm" xsi:type="PQ " value="4.47" /> <referenceRange> <observationRange> <text>4.00-6.00</text> </observationRange> </ referenceRange> </observation> </component> <component> <observation moodCode="EVN" classCode="OBS"> <templateId root= "16.840.1.102522.10.20.22.4.2" /> <id nullFlavor="NA" /> < code codeSystem="local" code="RDW" displayName="RED CELL DISTRIBUTION WIDTH" /> <statusCode code="completed" /> <effectiveTime value= "" /> <value unit="%" xsi:type="PQ" value="15.0" /> <referenceRange> <observationRange> <text>11.0- 15.6</text> </observationRange> </referenceRange> </ observation> </component> <component> <observation moodCode= "EVN" classCode="OBS"> <templateId root="216.840.1.411954.10.20.22.4.2 " /> <id nullFlavor="NA" /> <code codeSystem="local" code="WBC " displayName="WHITE BLOOD CELL" /> <statusCode code="completed" /> <effectiveTime value="003372747227" /> <value unit="k/cumm" xsi: type="PQ" value="5.8" /> <referenceRange> <observationRange > <text>5.0-10.0</text> </observationRange> </ referenceRange> </observation> </component> <component> <observation moodCode="EVN" classCode="OBS"> <templateId root= "16.840.1.366957.10...4.2" /> <id nullFlavor="NA" /> < code codeSystem="local" code="HGBT" displayName="HEMOGLOBIN" /> < statusCode code="completed" /> <effectiveTime value="447612457927" /> <value unit="gm/dL" xsi:type="PQ" value="13.0" /> < interpretationCode codeSystem="local" code="*" /> <referenceRange> <observationRange> <text>14.0-18.0</text> </ observationRange> </referenceRange> </observation> </ component> <component> <observation moodCode="EVN" classCode="OBS"> <templateId root="16.840.1.437352.10.20.22.4.2" /> <id nullFlavor="NA" /> <code codeSystem="local" code="HCTT" displayName= "HEMATOCRIT" /> <statusCode code="completed" /> < effectiveTime value="896678857942" /> <value unit="%" xsi:type="PQ " value="39.4" /> <interpretationCode codeSystem="local" code="*" /> <referenceRange> <observationRange> <text>40.0- 54.0</text> </observationRange> </referenceRange> </ observation> </component> <component> <observation moodCode= "EVN" classCode="OBS"> <templateId root="2.16.840.1.818964.10..4.2 " /> <id nullFlavor="NA" /> <code codeSystem="local" code= "NRBC%" displayName="NRBC %" /> <statusCode code="completed" / > <effectiveTime value="" /> <value unit="/100WBC " xsi:type="PQ" value="0.0" /> <referenceRange> < observationRange> <text>0.0-0.0</text> </ observationRange> </referenceRange> </observation> </ component> <component> <observation moodCode="EVN" classCode="OBS"> <templateId root="2.16.840.1.795816.10.2022.4.2" /> <id nullFlavor="NA" /> <code codeSystem="local" code="PLTT" displayName= "PLATELET COUNT" /> <statusCode code="completed" /> < effectiveTime value="181586152618" /> <value unit="k/cumm" xsi:type="PQ " value="105" /> <interpretationCode codeSystem="local" code="*" /> <referenceRange> <observationRange> <text>150-400 </text> </observationRange> </referenceRange> </ observation> </component> <component> <observation moodCode= "EVN" classCode="OBS"> <templateId root="216.840.1.254728.10.4.2 " /> <id nullFlavor="NA" /> <code codeSystem="local" code="IG& #37;" displayName="IMMATURE GRANULOCYTE %" /> <statusCode code= "completed" /> <effectiveTime value="286274487212" /> <value unit="%" xsi:type="PQ" value="0.7" /> <interpretationCode codeSystem="local" code="*" /> <referenceRange> < observationRange> <text>0.0-0.6</text> </ observationRange> </referenceRange> </observation> </ component> <component> <observation moodCode="EVN" classCode="OBS"> <templateId root="10.29.840.1.885460.07.02.224.2" /> <id nullFlavor="NA" /> <code codeSystem="local" code="IG#" displayName= "IMMATURE GRANULOCYTE #" /> <statusCode code="completed" /> < effectiveTime value="758230923384" /> <value unit="k/cumm" xsi:type="PQ " value="0.04" /> <referenceRange> <observationRange> <text>0.00-0.09</text> </observationRange> </ referenceRange> </observation> </component> <component> <observation moodCode="EVN" classCode="OBS"> <templateId root= "16.840.1.639530.07.02.22.4.2" /> <id nullFlavor="NA" /> < code codeSystem="local" code="IPFT" displayName="IMMATURE PLATELET FRACTION" /> <statusCode code="completed" /> <effectiveTime value= "614563049228" /> <value unit="%" xsi:type="PQ" value="5.6" /> <referenceRange> <observationRange> <text>1.1-6.1< /text> </observationRange> </referenceRange> </ observation> </component> </organizer> </entry> <entry> <organizer moodCode="EVN" classCode="BATTERY"> <templateId root= "16.840.1.465023.10..22.4.1" /> <id nullFlavor="NA" /> <code codeSystem="local" code="METABC" displayName="METABOLIC PANEL, COMPREHN" /> <statusCode code="completed" /> <component> <observation moodCode= "EVN" classCode="OBS"> <templateId root="216.840.1.672664.10...4.2 " /> <id nullFlavor="NA" /> <code codeSystem="local" code="K" displayName="POTASSIUM" /> <statusCode code="completed" /> < effectiveTime value="534291866381" /> <value unit="mmol/L" xsi:type="PQ " value="3.8" /> <referenceRange> <observationRange> <text>3.5-5.3</text> </observationRange> </ referenceRange> </observation> </component> <component> <observation moodCode="EVN" classCode="OBS"> <templateId root= "16.840.1.683660.10..22.4.2" /> <id nullFlavor="NA" /> < code codeSystem="local" code="eGFR" displayName="EST GFR (MDRD)" /> < statusCode code="completed" /> <effectiveTime value="959457532532" /> <value unit="mL/min" xsi:type="PQ" value="> 60" /> < referenceRange> <observationRange> <text>> 59</text> </observationRange> </referenceRange> </observation > </component> <component> <observation moodCode="EVN" classCode="OBS"> <templateId root="216.840.1.955786.10..22.4.2" /> <id nullFlavor="NA" /> <code codeSystem="local" code="GAP" displayName="ANION GAP" /> <statusCode code="completed" /> < effectiveTime value="220074305522" /> <value unit="mmol/L" xsi:type="PQ " value="13" /> <referenceRange> <observationRange> <text>5-15</text> </observationRange> </referenceRange > </observation> </component> <component> <observation moodCode="EVN" classCode="OBS"> <templateId root= "10.29.840.1.317512.10...4.2" /> <id nullFlavor="NA" /> < code codeSystem="local" code="eCrCl" displayName="EST CrCl (CG)" /> < statusCode code="completed" /> <effectiveTime value="210612709376" /> <value unit="mL/min" xsi:type="PQ" value="> 60" /> < referenceRange> <observationRange> <text>> 59</text> </observationRange> </referenceRange> </observation > </component> <component> <observation moodCode="EVN" classCode="OBS"> <templateId root="16.840.1.262454.10..22.4.2" /> <id nullFlavor="NA" /> <code codeSystem="local" code="GLU" displayName="GLUCOSE" /> <statusCode code="completed" /> < effectiveTime value="062900300116" /> <value unit="mg/dL" xsi:type="PQ " value="109" /> <interpretationCode codeSystem="local" code="*" /> <referenceRange> <observationRange> <text>70-99</ text> </observationRange> </referenceRange> </ observation> </component> <component> <observation moodCode= "EVN" classCode="OBS"> <templateId root="2.16.840.1.695083.10.20.22.4.2 " /> <id nullFlavor="NA" /> <code codeSystem="local" code="CA " displayName="CALCIUM" /> <statusCode code="completed" /> < effectiveTime value="942577549643" /> <value unit="mg/dL" xsi:type="PQ " value="8.3" /> <interpretationCode codeSystem="local" code="*" /> <referenceRange> <observationRange> <text>8.5- 10.1</text> </observationRange> </referenceRange> </ observation> </component> <component> <observation moodCode= "EVN" classCode="OBS"> <templateId root="2.16.840.1.572455.10.20.22.4.2 " /> <id nullFlavor="NA" /> <code codeSystem="local" code="BUN " displayName="BLOOD UREA NITROGEN" /> <statusCode code="completed" /> <effectiveTime value="303699630074" /> <value unit="mg/dL" xsi:type="PQ" value="14" /> <referenceRange> < observationRange> <text>7-20</text> </observationRange> </referenceRange> </observation> </component> < component> <observation moodCode="EVN" classCode="OBS"> < templateId root="16.840.1.938408.10..22.4.2" /> <id nullFlavor="NA " /> <code codeSystem="local" code="CREAT" displayName="CREATININE" /> <statusCode code="completed" /> <effectiveTime value= "464078998934" /> <value unit="mg/dL" xsi:type="PQ" value="1.0" /> <referenceRange> <observationRange> <text>0.7-1.3< /text> </observationRange> </referenceRange> </ observation> </component> <component> <observation moodCode= "EVN" classCode="OBS"> <templateId root="16.840.1.073731.10..22.4.2 " /> <id nullFlavor="NA" /> <code codeSystem="local" code="NA " displayName="SODIUM" /> <statusCode code="completed" /> < effectiveTime value="575867733130" /> <value unit="mmol/L" xsi:type="PQ " value="144" /> <referenceRange> <observationRange> <text>135-148</text> </observationRange> </ referenceRange> </observation> </component> <component> <observation moodCode="EVN" classCode="OBS"> <templateId root= "10.29.840.1.339236.10..22.4.2" /> <id nullFlavor="NA" /> < code codeSystem="local" code="CL" displayName="CHLORIDE" /> < statusCode code="completed" /> <effectiveTime value="505188136419" /> <value unit="mmol/L" xsi:type="PQ" value="107" /> < referenceRange> <observationRange> <text>98-110</text> </observationRange> </referenceRange> </observation> </component> <component> <observation moodCode="EVN" classCode ="OBS"> <templateId root="216.840.1.189940.10.4.2" /> < id nullFlavor="NA" /> <code codeSystem="local" code="AST" displayName= "AST/SGOT" /> <statusCode code="completed" /> <effectiveTime value="" /> <value unit="Units/L" xsi:type="PQ" value="68" /> <interpretationCode codeSystem="local" code="*" /> < referenceRange> <observationRange> <text>10-37</text> </observationRange> </referenceRange> </observation> </component> <component> <observation moodCode="EVN" classCode= "OBS"> <templateId root="16.840.1.786405.07.02.22.4.2" /> < id nullFlavor="NA" /> <code codeSystem="local" code="ALT" displayName= "ALT/SGPT" /> <statusCode code="completed" /> <effectiveTime value="" /> <value unit="Units/L" xsi:type="PQ" value="62" /> <referenceRange> <observationRange> <text>& lt; 66</text> </observationRange> </referenceRange> < /observation> </component> <component> <observation moodCode= "EVN" classCode="OBS"> <templateId root="216.840.1.546723.07.02.22.4.2 " /> <id nullFlavor="NA" /> <code codeSystem="local" code="CO2 " displayName="CARBON DIOXIDE" /> <statusCode code="completed" /> <effectiveTime value="268785281488" /> <value unit="mmol/L" xsi: type="PQ" value="24" /> <referenceRange> <observationRange> <text>21-32</text> </observationRange> </ referenceRange> </observation> </component> <component> <observation moodCode="EVN" classCode="OBS"> <templateId root= "10.29.840.1.808196.10.22.4.2" /> <id nullFlavor="NA" /> < code codeSystem="local" code="TP" displayName="TOTAL PROTEIN" /> < statusCode code="completed" /> <effectiveTime value="997593723486" /> <value unit="gm/dL" xsi:type="PQ" value="7.1" /> < referenceRange> <observationRange> <text>6.4-8.2</text> </observationRange> </referenceRange> </observation > </component> <component> <observation moodCode="EVN" classCode="OBS"> <templateId root="10.29.840.1.900821.10..4.2" /> <id nullFlavor="NA" /> <code codeSystem="local" code="ALB" displayName="ALBUMIN" /> <statusCode code="completed" /> < effectiveTime value="104100491391" /> <value unit="gm/dL" xsi:type="PQ " value="3.1" /> <interpretationCode codeSystem="local" code="*" /> <referenceRange> <observationRange> <text>3.4-5.0 </text> </observationRange> </referenceRange> </ observation> </component> <component> <observation moodCode= "EVN" classCode="OBS"> <templateId root="10.29.840.1.548913.10.22.4.2 " /> <id nullFlavor="NA" /> <code codeSystem="local" code= "BILTOT" displayName="BILI TOTAL" /> <statusCode code="completed" /> <effectiveTime value="228801978932" /> <value unit="mg/dL" xsi: type="PQ" value="0.6" /> <referenceRange> <observationRange > <text>0.0-1.0</text> </observationRange> </ referenceRange> </observation> </component> <component> <observation moodCode="EVN" classCode="OBS"> <templateId root= "840.1.133531.07.02.22.4.2" /> <id nullFlavor="NA" /> < code codeSystem="local" code="ALKP" displayName="ALKALINE PHOSPHATASE TOTAL" /> <statusCode code="completed" /> <effectiveTime value= "528351699844" /> <value unit="IU/L" xsi:type="PQ" value="143" /> <interpretationCode codeSystem="local" code="*" /> <referenceRange > <observationRange> <text>45-117</text> </ observationRange> </referenceRange> </observation> </ component> </organizer> </entry> <entry> <organizer moodCode="EVN" classCode="BATTERY"> <templateId root="840.1.667665.22.4.1" /> <id nullFlavor="NA" /> <code codeSystem="local" code="LACTG" displayName="LACTIC ACID" /> <statusCode code="completed" /> < component> <observation moodCode="EVN" classCode="OBS"> < templateId root="10.29.840.1.362205.102022.4.2" /> <id nullFlavor="NA " /> <code codeSystem="local" code="LACT" displayName="LACTIC ACID" /> <statusCode code="completed" /> <effectiveTime value= "" /> <value unit="mmol/L" xsi:type="PQ" value="2.5" /> <interpretationCode codeSystem="local" code="*" /> < referenceRange> <observationRange> <text>0.5-2.0</text> </observationRange> </referenceRange> </observation > </component> </organizer> </entry> <entry> <organizer moodCode= "EVN" classCode="BATTERY"> <templateId root="840.1.169468.10..4.1 " /> <id nullFlavor="NA" /> <code codeSystem="local" code="CBCD" displayName="CBC W/DIFF" /> <statusCode code="completed" /> <component > <observation moodCode="EVN" classCode="OBS"> <templateId root= "840.1.242222.10..4.2" /> <id nullFlavor="NA" /> < code codeSystem="local" code="BA#" displayName="BASOPHIL #" /> < statusCode code="completed" /> <effectiveTime value="738736442913" /> <value unit="k/cumm" xsi:type="PQ" value="0.0" /> < referenceRange> <observationRange> <text>0.0-0.2</text> </observationRange> </referenceRange> </observation > </component> <component> <observation moodCode="EVN" classCode="OBS"> <templateId root="10.29.840.1.289699.10.22.4.2" /> <id nullFlavor="NA" /> <code codeSystem="local" code="BA% " displayName="BASOPHIL %" /> <statusCode code="completed" /> <effectiveTime value="" /> <value unit="%" xsi: type="PQ" value="0.4" /> <referenceRange> <observationRange > <text>0-1</text> </observationRange> </ referenceRange> </observation> </component> <component> <observation moodCode="EVN" classCode="OBS"> <templateId root= "2.16.840.1.783727.10.20.22.4.2" /> <id nullFlavor="NA" /> < code codeSystem="local" code="EO#" displayName="EOSINOPHIL #" /> < statusCode code="completed" /> <effectiveTime value="" /> <value unit="k/cumm" xsi:type="PQ" value="1.2" /> < interpretationCode codeSystem="local" code="*" /> <referenceRange> <observationRange> <text>0.1-0.5</text> </ observationRange> </referenceRange> </observation> </ component> <component> <observation moodCode="EVN" classCode="OBS"> <templateId root="2.16.840.1.362202.10.20.22.4.2" /> <id nullFlavor="NA" /> <code codeSystem="local" code="EO%" displayName= "EOSINOPHIL %" /> <statusCode code="completed" /> < effectiveTime value="" /> <value unit="%" xsi:type="PQ " value="12.9" /> <interpretationCode codeSystem="local" code="*" /> <referenceRange> <observationRange> <text>2-4</ text> </observationRange> </referenceRange> </ observation> </component> <component> <observation moodCode= "EVN" classCode="OBS"> <templateId root="10.29.840.1.693475.07.02.22.4.2 " /> <id nullFlavor="NA" /> <code codeSystem="local" code="GR# " displayName="GRANULOCYTE #" /> <statusCode code="completed" /> <effectiveTime value="" /> <value unit="k/cumm" xsi: type="PQ" value="5.9" /> <referenceRange> <observationRange > <text>2.0-9.0</text> </observationRange> </ referenceRange> </observation> </component> <component> <observation moodCode="EVN" classCode="OBS"> <templateId root= "10.29.840.1.348068.07.02.224.2" /> <id nullFlavor="NA" /> < code codeSystem="local" code="GR%" displayName="GRANULOCYTE %" /> <statusCode code="completed" /> <effectiveTime value=" " /> <value unit="%" xsi:type="PQ" value="66.0" /> < referenceRange> <observationRange> <text>50-75</text> </observationRange> </referenceRange> </observation> </component> <component> <observation moodCode="EVN" classCode= "OBS"> <templateId root="10.29.840.1.348822.10..4.2" /> < id nullFlavor="NA" /> <code codeSystem="local" code="LY#" displayName= "LYMPHOCYTE #" /> <statusCode code="completed" /> < effectiveTime value="" /> <value unit="k/cumm" xsi:type="PQ " value="1.3" /> <referenceRange> <observationRange> <text>1.0-4.0</text> </observationRange> </ referenceRange> </observation> </component> <component> <observation moodCode="EVN" classCode="OBS"> <templateId root= "216.840.1.657522.10.20.22.4.2" /> <id nullFlavor="NA" /> < code codeSystem="local" code="LY%" displayName="LYMPHOCYTE %" /> <statusCode code="completed" /> <effectiveTime value="[id number]" /> <value unit="%" xsi:type="PQ" value="14.4" /> < interpretationCode codeSystem="local" code="*" /> <referenceRange> <observationRange> <text>20-30</text> </ observationRange> </referenceRange> </observation> </ component> <component> <observation moodCode="EVN" classCode="OBS"> <templateId root="10.29.840.1.562514.10.4.2" /> <id nullFlavor="NA" /> <code codeSystem="local" code="MCH" displayName= "MEAN CELL HGB" /> <statusCode code="completed" /> < effectiveTime value="[id number]" /> <value unit="pg" xsi:type="PQ" value="28.8" /> <referenceRange> <observationRange> <text>27.0-33.0</text> </observationRange> </ referenceRange> </observation> </component> <component> <observation moodCode="EVN" classCode="OBS"> <templateId root= "216.840.1.149065.10.2022.4.2" /> <id nullFlavor="NA" /> < code codeSystem="local" code="MCHC" displayName="MEAN CELL HGB CONCENTRATION" / > <statusCode code="completed" /> <effectiveTime value= "" /> <value unit="g/dL" xsi:type="PQ" value="32.1" /> <referenceRange> <observationRange> <text>32.0- 37.0</text> </observationRange> </referenceRange> </ observation> </component> <component> <observation moodCode= "EVN" classCode="OBS"> <templateId root="216.840.1.891012.10..22.4.2 " /> <id nullFlavor="NA" /> <code codeSystem="local" code="MCV " displayName="MEAN CELL VOLUME" /> <statusCode code="completed" /> <effectiveTime value="" /> <value unit="fl" xsi:type ="PQ" value="89.7" /> <referenceRange> <observationRange> <text>80.0-100.0</text> </observationRange> </ referenceRange> </observation> </component> <component> <observation moodCode="EVN" classCode="OBS"> <templateId root= "216.840.1.527949.10..22.4.2" /> <id nullFlavor="NA" /> < code codeSystem="local" code="MO#" displayName="MONOCYTE #" /> < statusCode code="completed" /> <effectiveTime value="" /> <value unit="k/cumm" xsi:type="PQ" value="0.5" /> < referenceRange> <observationRange> <text>0.1-1.0</text> </observationRange> </referenceRange> </observation > </component> <component> <observation moodCode="EVN" classCode="OBS"> <templateId root="10.29.840.1.948820.10.20.22.4.2" /> <id nullFlavor="NA" /> <code codeSystem="local" code="MO% " displayName="MONOCYTE %" /> <statusCode code="completed" /> <effectiveTime value="" /> <value unit="%" xsi: type="PQ" value="5.6" /> <referenceRange> <observationRange > <text>4-6</text> </observationRange> </ referenceRange> </observation> </component> <component> <observation moodCode="EVN" classCode="OBS"> <templateId root= "840.1.312300.10.22.4.2" /> <id nullFlavor="NA" /> < code codeSystem="local" code="MPVT" displayName="MEAN PLATELET VOLUME" /> <statusCode code="completed" /> <effectiveTime value=" " /> <value unit="fl" xsi:type="PQ" value="11.5" /> < interpretationCode codeSystem="local" code="*" /> <referenceRange> <observationRange> <text>8.5-10.9</text> </ observationRange> </referenceRange> </observation> </ component> <component> <observation moodCode="EVN" classCode="OBS"> <templateId root="840.1.750751.10.2022.4.2" /> <id nullFlavor="NA" /> <code codeSystem="local" code="RBC" displayName=" RED BLOOD CELL" /> <statusCode code="completed" /> < effectiveTime value="" /> <value unit="m/cumm" xsi:type="PQ " value="4.45" /> <referenceRange> <observationRange> <text>4.00-6.00</text> </observationRange> </ referenceRange> </observation> </component> <component> <observation moodCode="EVN" classCode="OBS"> <templateId root= "216.840.1.864048.10.20.22.4.2" /> <id nullFlavor="NA" /> < code codeSystem="local" code="RDW" displayName="RED CELL DISTRIBUTION WIDTH" /> <statusCode code="completed" /> <effectiveTime value= "[id number]" /> <value unit="%" xsi:type="PQ" value="15.4" /> <referenceRange> <observationRange> <text>11.0- 15.6</text> </observationRange> </referenceRange> </ observation> </component> <component> <observation moodCode= "EVN" classCode="OBS"> <templateId root="840.1.424433.10.20.22.4.2 " /> <id nullFlavor="NA" /> <code codeSystem="local" code="WBC " displayName="WHITE BLOOD CELL" /> <statusCode code="completed" /> <effectiveTime value="470171724012" /> <value unit="k/cumm" xsi: type="PQ" value="8.9" /> <referenceRange> <observationRange > <text>5.0-10.0</text> </observationRange> </ referenceRange> </observation> </component> <component> <observation moodCode="EVN" classCode="OBS"> <templateId root= "16.840.1.586002.10.20.22.4.2" /> <id nullFlavor="NA" /> < code codeSystem="local" code="HGBT" displayName="HEMOGLOBIN" /> < statusCode code="completed" /> <effectiveTime value="" /> <value unit="gm/dL" xsi:type="PQ" value="12.8" /> < interpretationCode codeSystem="local" code="*" /> <referenceRange> <observationRange> <text>14.0-18.0</text> </ observationRange> </referenceRange> </observation> </ component> <component> <observation moodCode="EVN" classCode="OBS"> <templateId root="2.16.840.1.313725.10.20.22.4.2" /> <id nullFlavor="NA" /> <code codeSystem="local" code="HCTT" displayName= "HEMATOCRIT" /> <statusCode code="completed" /> < effectiveTime value="" /> <value unit="%" xsi:type="PQ " value="39.9" /> <interpretationCode codeSystem="local" code="*" /> <referenceRange> <observationRange> <text>40.0- 54.0</text> </observationRange> </referenceRange> </ observation> </component> <component> <observation moodCode= "EVN" classCode="OBS"> <templateId root="2.16.840.1.092942.10.20.22.4.2 " /> <id nullFlavor="NA" /> <code codeSystem="local" code= "NRBC%" displayName="NRBC %" /> <statusCode code="completed" / > <effectiveTime value="" /> <value unit="/100WBC " xsi:type="PQ" value="0.2" /> <interpretationCode codeSystem="local" code="*" /> <referenceRange> <observationRange> <text>0.0-0.0</text> </observationRange> </referenceRange > </observation> </component> <component> <observation moodCode="EVN" classCode="OBS"> <templateId root= "10.29.840.1.671235.10.4.2" /> <id nullFlavor="NA" /> < code codeSystem="local" code="PLTT" displayName="PLATELET COUNT" /> < statusCode code="completed" /> <effectiveTime value="" /> <value unit="k/cumm" xsi:type="PQ" value="126" /> < interpretationCode codeSystem="local" code="*" /> <referenceRange> <observationRange> <text>150-400</text> </ observationRange> </referenceRange> </observation> </ component> <component> <observation moodCode="EVN" classCode="OBS"> <templateId root="10.29.840.1.848975.07.02.224.2" /> <id nullFlavor="NA" /> <code codeSystem="local" code="IG%" displayName= "IMMATURE GRANULOCYTE %" /> <statusCode code="completed" /> <effectiveTime value="" /> <value unit="%" xsi:type= "PQ" value="0.7" /> <interpretationCode codeSystem="local" code="*" /> <referenceRange> <observationRange> <text>0.0- 0.6</text> </observationRange> </referenceRange> </ observation> </component> <component> <observation moodCode= "EVN" classCode="OBS"> <templateId root="10.29.840.1.933746.10.4.2 " /> <id nullFlavor="NA" /> <code codeSystem="local" code="IG# " displayName="IMMATURE GRANULOCYTE #" /> <statusCode code="completed" /> <effectiveTime value="" /> <value unit="k/cumm " xsi:type="PQ" value="0.06" /> <referenceRange> < observationRange> <text>0.00-0.09</text> </ observationRange> </referenceRange> </observation> </ component> <component> <observation moodCode="EVN" classCode="OBS"> <templateId root="840.1.665089.1022.4.2" /> <id nullFlavor="NA" /> <code codeSystem="local" code="IPFT" displayName= "IMMATURE PLATELET FRACTION" /> <statusCode code="completed" /> <effectiveTime value="" /> <value unit="%" xsi:type= "PQ" value="6.8" /> <interpretationCode codeSystem="local" code="*" /> <referenceRange> <observationRange> <text>1.1- 6.1</text> </observationRange> </referenceRange> </ observation> </component> </organizer> </entry> <entry> <organizer moodCode="EVN" classCode="BATTERY"> <templateId root= "840.1.238629.1022.4.1" /> <id nullFlavor="NA" /> <code codeSystem="local" code="METABC" displayName="METABOLIC PANEL, COMPREHN" /> <statusCode code="completed" /> <component> <observation moodCode= "EVN" classCode="OBS"> <templateId root="840.1.021553.10.2022.4.2 " /> <id nullFlavor="NA" /> <code codeSystem="local" code="K" displayName="POTASSIUM" /> <statusCode code="completed" /> < effectiveTime value="166870913625" /> <value unit="mmol/L" xsi:type="PQ " value="4.1" /> <referenceRange> <observationRange> <text>3.5-5.3</text> </observationRange> </ referenceRange> </observation> </component> <component> <observation moodCode="EVN" classCode="OBS"> <templateId root= "10.29.840.1.175249.10.20.22.4.2" /> <id nullFlavor="NA" /> < code codeSystem="local" code="eGFR" displayName="EST GFR (MDRD)" /> < statusCode code="completed" /> <effectiveTime value="253258220779" /> <value unit="mL/min" xsi:type="PQ" value="59" /> < interpretationCode codeSystem="local" code="*" /> <referenceRange> <observationRange> <text>> 59</text> </ observationRange> </referenceRange> </observation> </ component> <component> <observation moodCode="EVN" classCode="OBS"> <templateId root="10.29.840.1.556854.10.20.22.4.2" /> <id nullFlavor="NA" /> <code codeSystem="local" code="GAP" displayName= "ANION GAP" /> <statusCode code="completed" /> <effectiveTime value="700207092594" /> <value unit="mmol/L" xsi:type="PQ" value="12" / > <referenceRange> <observationRange> <text>5- 15</text> </observationRange> </referenceRange> </ observation> </component> <component> <observation moodCode= "EVN" classCode="OBS"> <templateId root="10.29.840.1.186784.10..22.4.2 " /> <id nullFlavor="NA" /> <code codeSystem="local" code= "eCrCl" displayName="EST CrCl (CG)" /> <statusCode code="completed" /> <effectiveTime value="" /> <value unit="mL/min" xsi:type="PQ" value="> 60" /> <referenceRange> < observationRange> <text>> 59</text> </ observationRange> </referenceRange> </observation> </ component> <component> <observation moodCode="EVN" classCode="OBS"> <templateId root="10.29.840.1.106572...4.2" /> <id nullFlavor="NA" /> <code codeSystem="local" code="GLU" displayName= "GLUCOSE" /> <statusCode code="completed" /> <effectiveTime value="" /> <value unit="mg/dL" xsi:type="PQ" value="121" / > <interpretationCode codeSystem="local" code="*" /> < referenceRange> <observationRange> <text>70-99</text> </observationRange> </referenceRange> </observation> </component> <component> <observation moodCode="EVN" classCode= "OBS"> <templateId root="10.29.840.1.554437.10.22.4.2" /> < id nullFlavor="NA" /> <code codeSystem="local" code="CA" displayName= "CALCIUM" /> <statusCode code="completed" /> <effectiveTime value="184768966386" /> <value unit="mg/dL" xsi:type="PQ" value="8.6" / > <referenceRange> <observationRange> <text>8.5 -10.1</text> </observationRange> </referenceRange> </ observation> </component> <component> <observation moodCode= "EVN" classCode="OBS"> <templateId root="216.840.1.538868.10..22.4.2 " /> <id nullFlavor="NA" /> <code codeSystem="local" code="BUN " displayName="BLOOD UREA NITROGEN" /> <statusCode code="completed" /> <effectiveTime value="" /> <value unit="mg/dL" xsi:type="PQ" value="18" /> <referenceRange> < observationRange> <text>7-20</text> </observationRange> </referenceRange> </observation> </component> < component> <observation moodCode="EVN" classCode="OBS"> < templateId root="216.840.1.808553.07.02.22.4.2" /> <id nullFlavor="NA " /> <code codeSystem="local" code="CREAT" displayName="CREATININE" /> <statusCode code="completed" /> <effectiveTime value= "868312988309" /> <value unit="mg/dL" xsi:type="PQ" value="1.3" /> <referenceRange> <observationRange> <text>0.7-1.3< /text> </observationRange> </referenceRange> </ observation> </component> <component> <observation moodCode= "EVN" classCode="OBS"> <templateId root="216.840.1.032622...4.2 " /> <id nullFlavor="NA" /> <code codeSystem="local" code="NA " displayName="SODIUM" /> <statusCode code="completed" /> < effectiveTime value="" /> <value unit="mmol/L" xsi:type="PQ " value="141" /> <referenceRange> <observationRange> <text>135-148</text> </observationRange> </ referenceRange> </observation> </component> <component> <observation moodCode="EVN" classCode="OBS"> <templateId root= "216.840.1.960201.10.20.22.4.2" /> <id nullFlavor="NA" /> < code codeSystem="local" code="CL" displayName="CHLORIDE" /> < statusCode code="completed" /> <effectiveTime value="994013514267" /> <value unit="mmol/L" xsi:type="PQ" value="106" /> < referenceRange> <observationRange> <text>98-110</text> </observationRange> </referenceRange> </observation> </component> <component> <observation moodCode="EVN" classCode ="OBS"> <templateId root="10.29.840.1.568057.10..22.4.2" /> < id nullFlavor="NA" /> <code codeSystem="local" code="AST" displayName= "AST/SGOT" /> <statusCode code="completed" /> <effectiveTime value="082707819458" /> <value unit="Units/L" xsi:type="PQ" value="55" /> <interpretationCode codeSystem="local" code="*" /> < referenceRange> <observationRange> <text>10-37</text> </observationRange> </referenceRange> </observation> </component> <component> <observation moodCode="EVN" classCode= "OBS"> <templateId root="10.29.840.1.324350.10.20.22.4.2" /> < id nullFlavor="NA" /> <code codeSystem="local" code="ALT" displayName= "ALT/SGPT" /> <statusCode code="completed" /> <effectiveTime value="279141749026" /> <value unit="Units/L" xsi:type="PQ" value="53" /> <referenceRange> <observationRange> <text>& lt; 66</text> </observationRange> </referenceRange> < /observation> </component> <component> <observation moodCode= "EVN" classCode="OBS"> <templateId root="10.29.840.1.525167.10..4.2 " /> <id nullFlavor="NA" /> <code codeSystem="local" code="CO2 " displayName="CARBON DIOXIDE" /> <statusCode code="completed" /> <effectiveTime value="156809241333" /> <value unit="mmol/L" xsi: type="PQ" value="23" /> <referenceRange> <observationRange> <text>21-32</text> </observationRange> </ referenceRange> </observation> </component> <component> <observation moodCode="EVN" classCode="OBS"> <templateId root= "10.29.840.1.398884.10..4.2" /> <id nullFlavor="NA" /> < code codeSystem="local" code="TP" displayName="TOTAL PROTEIN" /> < statusCode code="completed" /> <effectiveTime value="889257347435" /> <value unit="gm/dL" xsi:type="PQ" value="7.6" /> < referenceRange> <observationRange> <text>6.4-8.2</text> </observationRange> </referenceRange> </observation > </component> <component> <observation moodCode="EVN" classCode="OBS"> <templateId root="10.29.840.1.091129.22.4.2" /> <id nullFlavor="NA" /> <code codeSystem="local" code="ALB" displayName="ALBUMIN" /> <statusCode code="completed" /> < effectiveTime value="" /> <value unit="gm/dL" xsi:type="PQ " value="3.3" /> <interpretationCode codeSystem="local" code="*" /> <referenceRange> <observationRange> <text>3.4-5.0 </text> </observationRange> </referenceRange> </ observation> </component> <component> <observation moodCode= "EVN" classCode="OBS"> <templateId root="10.29.840.1.972408.07.02.22.4.2 " /> <id nullFlavor="NA" /> <code codeSystem="local" code= "BILTOT" displayName="BILI TOTAL" /> <statusCode code="completed" /> <effectiveTime value="" /> <value unit="mg/dL" xsi: type="PQ" value="0.6" /> <referenceRange> <observationRange > <text>0.0-1.0</text> </observationRange> </ referenceRange> </observation> </component> <component> <observation moodCode="EVN" classCode="OBS"> <templateId root= "10.29.840.1.034635.07.02.22.4.2" /> <id nullFlavor="NA" /> < code codeSystem="local" code="ALKP" displayName="ALKALINE PHOSPHATASE TOTAL" /> <statusCode code="completed" /> <effectiveTime value= "714193337269" /> <value unit="IU/L" xsi:type="PQ" value="132" /> <interpretationCode codeSystem="local" code="*" /> <referenceRange > <observationRange> <text>45-117</text> </ observationRange> </referenceRange> </observation> </ component> </organizer> </entry> <entry> <organizer moodCode="EVN" classCode="BATTERY"> <templateId root="2.16.840.1.563890.10.20.22.4.1" /> <id nullFlavor="NA" /> <code codeSystem="local" code="BC" displayName= "BLOOD CULTURE" /> <statusCode code="completed" /> <component> <observation moodCode="EVN" classCode="OBS"> <templateId root= "2.16.840.1.397155.10...4.2" /> <id nullFlavor="NA" /> < code codeSystem="local" code="MB" displayName="Microbiology" /> < statusCode code="completed" /> <effectiveTime value="980424819406" /> <value xsi:type="ST" value="<pre><b>BLOOD CULTURE</b> See BelowIs this a Possible Sepsis/Sepsis patient? YesBLOOD CULTURE(F) Alicia Date/ Time: 10/12/2017 23:59 Mitzy Date/Time: 10/18/2017 10:10SOURCE: BLOODSPEC DESC: [id number] [facility] [place] [address]</pre>" /> <referenceRange > <observationRange> <text /> </ observationRange> </referenceRange> </observation> </ component> </organizer> </entry> <entry> <organizer moodCode="EVN" classCode="BATTERY"> <templateId root="2.16.840.1.432013.10..22.4.1" /> <id nullFlavor="NA" /> <code codeSystem="local" code="ABG" displayName ="ARTERIAL BLOOD GAS" /> <statusCode code="completed" /> <component> <observation moodCode="EVN" classCode="OBS"> <templateId root= "216.840.1.658543.07.02.22.4.2" /> <id nullFlavor="NA" /> < code codeSystem="local" code="VIMAL" displayName="ABG BASE EXCESS" /> < statusCode code="completed" /> <effectiveTime value="" /> <value unit="meq/L" xsi:type="PQ" value="-3.5" /> < interpretationCode codeSystem="local" code="*" /> <referenceRange> <observationRange> <text>-3.0-3.0</text> </ observationRange> </referenceRange> </observation> </ component> <component> <observation moodCode="EVN" classCode="OBS"> <templateId root="10.29.840.1.160946.07.02.22.4.2" /> <id nullFlavor="NA" /> <code codeSystem="local" code="PAUL" displayName= "ABG DEVICE" /> <statusCode code="completed" /> < effectiveTime value="" /> <value unit="" xsi:type="PQ" value="NC" /> <referenceRange> <observationRange> <text /> </observationRange> </referenceRange> </ observation> </component> <component> <observation moodCode= "EVN" classCode="OBS"> <templateId root="16.840.1.903132.10.4.2 " /> <id nullFlavor="NA" /> <code codeSystem="local" code= "HCO3A" displayName="ABG BICARBONATE" /> <statusCode code="completed" / > <effectiveTime value="" /> <value unit="meq/L" xsi:type="PQ" value="19.8" /> <interpretationCode codeSystem="local" code="*" /> <referenceRange> <observationRange> <text>23.0-28.0</text> </observationRange> </ referenceRange> </observation> </component> <component> <observation moodCode="EVN" classCode="OBS"> <templateId root= "16.840.1.913003.10..22.4.2" /> <id nullFlavor="NA" /> < code codeSystem="local" code="L/MA" displayName="ABG L/M" /> < statusCode code="completed" /> <effectiveTime value="951100092533" /> <value unit="" xsi:type="PQ" value="4.0" /> <referenceRange> <observationRange> <text /> </ observationRange> </referenceRange> </observation> </ component> <component> <observation moodCode="EVN" classCode="OBS"> <templateId root="10.29.840.1.691172.10..4.2" /> <id nullFlavor="NA" /> <code codeSystem="local" code="PCO2A" displayName= "ABG PCO2" /> <statusCode code="completed" /> <effectiveTime value="" /> <value unit="mmHg" xsi:type="PQ" value="31" /> <interpretationCode codeSystem="local" code="*" /> < referenceRange> <observationRange> <text>34-45</text> </observationRange> </referenceRange> </observation> </component> <component> <observation moodCode="EVN" classCode= "OBS"> <templateId root="16.840.1.817536.10.20.22.4.2" /> < id nullFlavor="NA" /> <code codeSystem="local" code="PHAX" displayName= "ABG PH" /> <statusCode code="completed" /> <effectiveTime value="541558018362" /> <value unit="" xsi:type="PQ" value="7.43" /> <referenceRange> <observationRange> <text>7.35- 7.45</text> </observationRange> </referenceRange> </ observation> </component> <component> <observation moodCode= "EVN" classCode="OBS"> <templateId root="2.16.840.1.510997.10..22.4.2 " /> <id nullFlavor="NA" /> <code codeSystem="local" code= "PO2A" displayName="ABG PO2" /> <statusCode code="completed" /> <effectiveTime value="923163127863" /> <value unit="mmHg" xsi:type= "PQ" value="68" /> <interpretationCode codeSystem="local" code="*" /> <referenceRange> <observationRange> <text>75- 100</text> </observationRange> </referenceRange> </ observation> </component> <component> <observation moodCode= "EVN" classCode="OBS"> <templateId root="2.16.840.1.391908.10..22.4.2 " /> <id nullFlavor="NA" /> <code codeSystem="local" code= "SATA" displayName="ABG O2 SATURATION" /> <statusCode code="completed" /> <effectiveTime value="921683425958" /> <value unit="%" xsi:type="PQ" value="93" /> <referenceRange> < observationRange> <text>93-100</text> </observationRange > </referenceRange> </observation> </component> </ organizer> </entry> <entry> <organizer moodCode="EVN" classCode="BATTERY"> <templateId root="2.16.840.1.041937.10...4.1" /> <id nullFlavor= "NA" /> <code codeSystem="local" code="BC" displayName="BLOOD CULTURE" /> <statusCode code="completed" /> <component> <observation moodCode="EVN" classCode="OBS"> <templateId root= "216.840.1.934981.10..4.2" /> <id nullFlavor="NA" /> < code codeSystem="local" code="MB" displayName="Microbiology" /> < statusCode code="completed" /> <effectiveTime value="388780495201" /> <value xsi:type="ST" value="<pre><b>BLOOD CULTURE</b> See BelowIs this a Possible Sepsis/Sepsis patient? YesBLOOD CULTURE(F) Alicia Date/ Time: 10/13/2017 00:33 Mitzy Date/Time: 10/18/2017 10:38SOURCE: BLOODSPEC DESC: [id number] GR[facility]TH [facility] [place] [address]</pre>" /> <referenceRange > <observationRange> <text /> </ observationRange> </referenceRange> </observation> </ component> </organizer> </entry> <entry> <organizer moodCode="EVN" classCode="BATTERY"> <templateId root="216.840.1.780732.10...4.1" /> <id nullFlavor="NA" /> <code codeSystem="local" code="MISCL" displayName="LABORATORY MISCELLANEOUS TEST" /> <statusCode code="completed " /> <component> <observation moodCode="EVN" classCode="OBS"> <templateId root="216.840.1.358137...22.4.2" /> <id nullFlavor ="NA" /> <code codeSystem="local" code="MISCLAB" displayName= "PERFORMING LAB" /> <statusCode code="completed" /> < effectiveTime value="" /> <value unit="" xsi:type="PQ" value="[facility]" /> <referenceRange> < observationRange> <text /> </observationRange> </referenceRange> </observation> </component> <component> <observation moodCode="EVN" classCode="OBS"> <templateId root= "216.840.1.728928.07.02.22.4.2" /> <id nullFlavor="NA" /> < code codeSystem="local" code="REFL" displayName="LABORATORY TEST REF RANGE" /> <statusCode code="completed" /> <effectiveTime value= "" /> <value unit="" xsi:type="PQ" value="< 80 pg/mL" / > <referenceRange> <observationRange> <text /> </observationRange> </referenceRange> </observation > </component> <component> <observation moodCode="EVN" classCode="OBS"> <templateId root="216.840.1.328671...4.2" /> <id nullFlavor="NA" /> <code codeSystem="local" code="RESULTL " displayName="LABORATORY TEST RESULT" /> <statusCode code="completed" /> <effectiveTime value="" /> <value unit="" xsi: type="PQ" value="38 pg/mL" /> <referenceRange> < observationRange> <text /> </observationRange> </referenceRange> </observation> </component> <component> <observation moodCode="EVN" classCode="OBS"> <templateId root= "2.16.840.1.661507.10.20.22.4.2" /> <id nullFlavor="NA" /> < code codeSystem="local" code="TESTL" displayName="LABORATORY TEST" /> < statusCode code="completed" /> <effectiveTime value="[id number]" /> <value unit="" xsi:type="PQ" value="FUNGITELL,SERUM" /> < referenceRange> <observationRange> <text /> < /observationRange> </referenceRange> </observation> </ component> </organizer> </entry> <entry> <organizer moodCode="EVN" classCode="BATTERY"> <templateId root="2.16.840.1.246929.10.20.22.4.1" /> <id nullFlavor="NA" /> <code codeSystem="local" code="VRP" displayName ="VIRUS RESPIRATORY PROFILE" /> <statusCode code="completed" /> < component> <observation moodCode="EVN" classCode="OBS"> < templateId root="2.16.840.1.876364.10.20.22.4.2" /> <id nullFlavor="NA " /> <code codeSystem="local" code="MB" displayName="Microbiology" /> <statusCode code="completed" /> <effectiveTime value= "[id number]" /> <value xsi:type="ST" value="<pre><b>RESPIRATORY PROFILE</b> See BelowRESPIRATORY PROFILE(F) Alicia Date/Time: 10/13/2017 02:12 Mitzy Date/Time: 10/13/2017 08:50SOURCE: NASOPHARYNGEALSPEC DESC: ADENOVIRUSNOT DETECTEDBORDETELLA PERTUSSISNOT DETECTEDCHLAMYDIA PNEUMONIAENOT DETECTEDCORONAVIRUS 229ENOT DETECTEDCORONAVIRUS [id number] DETECTEDCORONAVIRUS WA85OON DETECTEDCORONAVIRUS [id number] DETECTEDHUMAN METAPNEUMOVIRUSNOT DETECTEDINFLUENZA A 2009 H1NOT DETECTEDINFLUENZA A H1NOT DETECTEDINFLUENZA A H3NOT DETECTEDINFLUENZA ANOT DETECTEDINFLUENZA BNOT DETECTEDMYCOPLASMA PNEUMONIAENOT DETECTEDPARAINFLUENZA 1NOT DETECTEDPARAINFLUENZA 2NOT DETECTEDPARAINFLUENZA 3NOT DETECTEDPARAINFLUENZA 4NOT DETECTEDRHINOVIRUS/ENTEROVIRUSNOT DETECTEDRSVNOT DETECTEDALTRU HEALTH SYSTEMS[address] [facility] [place] [place] [address]</pre>" /> <referenceRange> <observationRange> <text /> </observationRange> </referenceRange> </observation> </component> </organizer > </entry> <entry> <organizer moodCode="EVN" classCode="BATTERY"> < templateId root="2.16.840.1.796221.10..22.4.1" /> <id nullFlavor="NA" /> <code codeSystem="local" code="LACTG" displayName="LACTIC ACID" /> < statusCode code="completed" /> <component> <observation moodCode= "EVN" classCode="OBS"> <templateId root="2.16.840.1.201635.10..22.4.2 " /> <id nullFlavor="NA" /> <code codeSystem="local" code= "LACT" displayName="LACTIC ACID" /> <statusCode code="completed" /> <effectiveTime value="782453421457" /> <value unit="mmol/L" xsi: type="PQ" value="2.3" /> <interpretationCode codeSystem="local" code="* " /> <referenceRange> <observationRange> <text> 0.5-2.0</text> </observationRange> </referenceRange> </observation> </component> </organizer> </entry> <entry> < organizer moodCode="EVN" classCode="BATTERY"> <templateId root= "2.16.840.1.748186.07.02.22.4.1" /> <id nullFlavor="NA" /> <code codeSystem="local" code="LACTG" displayName="LACTIC ACID" /> <statusCode code="completed" /> <component> <observation moodCode="EVN" classCode="OBS"> <templateId root="10.29.840.1.952257.07.02.22.4.2" /> <id nullFlavor="NA" /> <code codeSystem="local" code="LACT" displayName="LACTIC ACID" /> <statusCode code="completed" /> < effectiveTime value="088038541403" /> <value unit="mmol/L" xsi:type="PQ " value="3.8" /> <interpretationCode codeSystem="local" code="*" /> <referenceRange> <observationRange> <text>0.5-2.0 </text> </observationRange> </referenceRange> </ observation> </component> </organizer> </entry> <entry> <organizer moodCode="EVN" classCode="BATTERY"> <templateId root= "10.29.840.1.331044.07.02.22.4.1" /> <id nullFlavor="NA" /> <code codeSystem="local" code="LDH" displayName="LACTATE DEHYDROGENASE (LDH/LD)" /> <statusCode code="completed" /> <component> <observation moodCode="EVN" classCode="OBS"> <templateId root= "10.29.840.1.763884.07.02.22.4.2" /> <id nullFlavor="NA" /> < code codeSystem="local" code="LDH" displayName="LACTATE DEHYDROGENASE (LDH/LD)" /> <statusCode code="completed" /> <effectiveTime value= "247877807058" /> <value unit="Units/L" xsi:type="PQ" value="378" /> <interpretationCode codeSystem="local" code="*" /> < referenceRange> <observationRange> <text>81-234</text> </observationRange> </referenceRange> </observation> </component> </organizer> </entry> <entry> <organizer moodCode= "EVN" classCode="BATTERY"> <templateId root="10.29.840.1.251795.10...4.1 " /> <id nullFlavor="NA" /> <code codeSystem="local" code="CD48" displayName="CD4/8 RATIO" /> <statusCode code="completed" /> < component> <observation moodCode="EVN" classCode="OBS"> < templateId root="10.29.840.1.570189.10...4.2" /> <id nullFlavor="NA " /> <code codeSystem="local" code="OE69GAT" displayName="CD 3/4 POSITIVE" /> <statusCode code="completed" /> <effectiveTime value="813959039287" /> <value unit="%" xsi:type="PQ" value="5" /> <interpretationCode codeSystem="local" code="*" /> < referenceRange> <observationRange> <text>34-68</text> </observationRange> </referenceRange> </observation> </component> <component> <observation moodCode="EVN" classCode= "OBS"> <templateId root="840.1.480105.10..4.2" /> < id nullFlavor="NA" /> <code codeSystem="local" code="LC94ZRK" displayName="CD 3/4 ABSOLUTE" /> <statusCode code="completed" /> <effectiveTime value="211106626611" /> <value unit="#" xsi:type="PQ " value="39" /> <interpretationCode codeSystem="local" code="*" /> <referenceRange> <observationRange> <text>250-2400 </text> </observationRange> </referenceRange> </ observation> </component> <component> <observation moodCode= "EVN" classCode="OBS"> <templateId root="216.840.1.567170.10.20.22.4.2 " /> <id nullFlavor="NA" /> <code codeSystem="local" code= "VX48YIC" displayName="CD 3/8 POSITIVE" /> <statusCode code="completed " /> <effectiveTime value="758896889862" /> <value unit="% " xsi:type="PQ" value="77" /> <interpretationCode codeSystem="local" code="*" /> <referenceRange> <observationRange> <text>6-41</text> </observationRange> </referenceRange> </observation> </component> <component> <observation moodCode="EVN" classCode="OBS"> <templateId root= "10.29.840.1.388721.07.02.22.4.2" /> <id nullFlavor="NA" /> < code codeSystem="local" code="VG35NRH" displayName="CD 3/8 ABSOLUTE" /> <statusCode code="completed" /> <effectiveTime value="111859720347" / > <value unit="#" xsi:type="PQ" value="602" /> <referenceRange > <observationRange> <text>150-1800</text> </ observationRange> </referenceRange> </observation> </ component> <component> <observation moodCode="EVN" classCode="OBS"> <templateId root="10.29.840.1.706739.10.20.22.4.2" /> <id nullFlavor="NA" /> <code codeSystem="local" code="MR41GFALT" displayName="CD 4/8 RATIO" /> <statusCode code="completed" /> <effectiveTime value="042490257704" /> <value unit="" xsi:type="PQ" value="0.1" /> <interpretationCode codeSystem="local" code="*" /> <referenceRange> <observationRange> <text>0.6-4.0</ text> </observationRange> </referenceRange> </ observation> </component> </organizer> </entry> <entry> <organizer moodCode="EVN" classCode="BATTERY"> <templateId root= "216.840.1.633446.10..22.4.1" /> <id nullFlavor="NA" /> <code codeSystem="local" code="LACTG" displayName="LACTIC ACID" /> <statusCode code="completed" /> <component> <observation moodCode="EVN" classCode="OBS"> <templateId root="216.840.1.293089.10..22.4.2" /> <id nullFlavor="NA" /> <code codeSystem="local" code="LACT" displayName="LACTIC ACID" /> <statusCode code="completed" /> < effectiveTime value="487906103295" /> <value unit="mmol/L" xsi:type="PQ " value="4.3" /> <interpretationCode codeSystem="local" code="" /> <referenceRange> <observationRange> <text>0.5- 2.0</text> </observationRange> </referenceRange> </ observation> </component> </organizer> </entry> <entry> <organizer moodCode="EVN" classCode="BATTERY"> <templateId root= "216.840.1.867744.22.4.1" /> <id nullFlavor="NA" /> <code codeSystem="local" code="CMP" displayName="Comprehensive Metabolic Panel (CMP)" /> <statusCode code="completed" /> <component> <observation moodCode="EVN" classCode="OBS"> <templateId root= "10.29.840.1.684494.10...4.2" /> <id nullFlavor="NA" /> < code codeSystem="local" code="ALB" displayName="Albumin" /> < statusCode code="completed" /> <effectiveTime value="" /> <value unit="g/dL" xsi:type="PQ" value="3.4" /> < interpretationCode codeSystem="local" code="*" /> <referenceRange> <observationRange> <text>3.5-4.8</text> </ observationRange> </referenceRange> </observation> </ component> <component> <observation moodCode="EVN" classCode="OBS"> <templateId root="840.1.033844.07.02.22.4.2" /> <id nullFlavor="NA" /> <code codeSystem="local" code="ALP" displayName= "Alkaline Phosphatase" /> <statusCode code="completed" /> < effectiveTime value="" /> <value unit="U/L" xsi:type="PQ" value="101" /> <referenceRange> <observationRange> <text>26-104</text> </observationRange> </ referenceRange> </observation> </component> <component> <observation moodCode="EVN" classCode="OBS"> <templateId root= "10.29.840.1.280442.07.02..4.2" /> <id nullFlavor="NA" /> < code codeSystem="local" code="ALT" displayName="ALT (SGPT)" /> < statusCode code="completed" /> <effectiveTime value="" /> <value unit="U/L" xsi:type="PQ" value="40" /> <referenceRange > <observationRange> <text>17-63</text> </ observationRange> </referenceRange> </observation> </ component> <component> <observation moodCode="EVN" classCode="OBS"> <templateId root="216.840.1.132537.10..22.4.2" /> <id nullFlavor="NA" /> <code codeSystem="local" code="AGAP" displayName= "Anion Gap" /> <statusCode code="completed" /> <effectiveTime value="" /> <value unit="mEq/L" xsi:type="PQ" value="12" / > <referenceRange> <observationRange> <text>3- 20</text> </observationRange> </referenceRange> </ observation> </component> <component> <observation moodCode= "EVN" classCode="OBS"> <templateId root="216.840.1.994497.10..22.4.2 " /> <id nullFlavor="NA" /> <code codeSystem="local" code="AST " displayName="AST (SGOT)" /> <statusCode code="completed" /> <effectiveTime value="" /> <value unit="U/L" xsi:type="PQ" value="54" /> <interpretationCode codeSystem="local" code="*" /> <referenceRange> <observationRange> <text>15-41</ text> </observationRange> </referenceRange> </ observation> </component> <component> <observation moodCode= "EVN" classCode="OBS"> <templateId root="16.840.1.150313.10.22.4.2 " /> <id nullFlavor="NA" /> <code codeSystem="local" code= "BILIT" displayName="Bilirubin Total" /> <statusCode code="completed" / > <effectiveTime value="" /> <value unit="mg/dL" xsi:type="PQ" value="0.9" /> <referenceRange> < observationRange> <text>0.2-1.2</text> </ observationRange> </referenceRange> </observation> </ component> <component> <observation moodCode="EVN" classCode="OBS"> <templateId root="10.29.840.1.751151.07.02.22.4.2" /> <id nullFlavor="NA" /> <code codeSystem="local" code="BUN" displayName="BUN " /> <statusCode code="completed" /> <effectiveTime value= "" /> <value unit="mg/dL" xsi:type="PQ" value="22" /> <interpretationCode codeSystem="local" code="*" /> <referenceRange > <observationRange> <text>4-20</text> </ observationRange> </referenceRange> </observation> </ component> <component> <observation moodCode="EVN" classCode="OBS"> <templateId root="10.29.840.1.908269.10.22.4.2" /> <id nullFlavor="NA" /> <code codeSystem="local" code="CA" displayName= "Calcium" /> <statusCode code="completed" /> <effectiveTime value="" /> <value unit="mg/dL" xsi:type="PQ" value="8.5" / > <interpretationCode codeSystem="local" code="*" /> < referenceRange> <observationRange> <text>8.6-10.0</text > </observationRange> </referenceRange> </observation > </component> <component> <observation moodCode="EVN" classCode="OBS"> <templateId root="10.29.840.1.221187.10.20.22.4.2" /> <id nullFlavor="NA" /> <code codeSystem="local" code="CL" displayName="Chloride" /> <statusCode code="completed" /> < effectiveTime value="" /> <value unit="mEq/L" xsi:type="PQ " value="104" /> <referenceRange> <observationRange> <text>99-109</text> </observationRange> </ referenceRange> </observation> </component> <component> <observation moodCode="EVN" classCode="OBS"> <templateId root= "10.29.840.1.644142.10.22.4.2" /> <id nullFlavor="NA" /> < code codeSystem="local" code="CO2" displayName="CO2" /> <statusCode code="completed" /> <effectiveTime value="" /> < value unit="mEq/L" xsi:type="PQ" value="20" /> <interpretationCode codeSystem="local" code="*" /> <referenceRange> < observationRange> <text>22-32</text> </observationRange > </referenceRange> </observation> </component> < component> <observation moodCode="EVN" classCode="OBS"> < templateId root="10.29.840.1.597863.10.20.22.4.2" /> <id nullFlavor="NA " /> <code codeSystem="local" code="CREAT" displayName="Creatinine" /> <statusCode code="completed" /> <effectiveTime value= "" /> <value unit="mg/dL" xsi:type="PQ" value="1.10" /> <referenceRange> <observationRange> <text>0.64- 1.27</text> </observationRange> </referenceRange> </ observation> </component> <component> <observation moodCode= "EVN" classCode="OBS"> <templateId root="16.840.1.716618.07.02.22.4.2 " /> <id nullFlavor="NA" /> <code codeSystem="local" code= "GLOB" displayName="Globulin" /> <statusCode code="completed" /> <effectiveTime value="" /> <value unit="g/dL" xsi:type= "PQ" value="3.3" /> <referenceRange> <observationRange> <text>1.9-4.3</text> </observationRange> </ referenceRange> </observation> </component> <component> <observation moodCode="EVN" classCode="OBS"> <templateId root= "16.840.1.659512.07.02.22.4.2" /> <id nullFlavor="NA" /> < code codeSystem="local" code="GLU" displayName="Glucose" /> < statusCode code="completed" /> <effectiveTime value="" /> <value unit="mg/dL" xsi:type="PQ" value="101" /> < interpretationCode codeSystem="local" code="*" /> <referenceRange> <observationRange> <text>70-100</text> </ observationRange> </referenceRange> </observation> </ component> <component> <observation moodCode="EVN" classCode="OBS"> <templateId root="216.840.1.387027.22.4.2" /> <id nullFlavor="NA" /> <code codeSystem="local" code="K" displayName= "Potassium" /> <statusCode code="completed" /> <effectiveTime value="" /> <value unit="mEq/L" xsi:type="PQ" value="4.6" / > <referenceRange> <observationRange> <text>3.6 -5.1</text> </observationRange> </referenceRange> </ observation> </component> <component> <observation moodCode= "EVN" classCode="OBS"> <templateId root="16.840.1.256550.07.02.22.4.2 " /> <id nullFlavor="NA" /> <code codeSystem="local" code="TP " displayName="Protein" /> <statusCode code="completed" /> < effectiveTime value="" /> <value unit="g/dL" xsi:type="PQ" value="6.7" /> <referenceRange> <observationRange> <text>6.1-7.9</text> </observationRange> </ referenceRange> </observation> </component> <component> <observation moodCode="EVN" classCode="OBS"> <templateId root= "16.840.1.866372.22.4.2" /> <id nullFlavor="NA" /> < code codeSystem="local" code="NA" displayName="Sodium" /> <statusCode code="completed" /> <effectiveTime value="" /> < value unit="mEq/L" xsi:type="PQ" value="136" /> <referenceRange> <observationRange> <text>136-144</text> </ observationRange> </referenceRange> </observation> </ component> </organizer> </entry> <entry> <organizer moodCode="EVN" classCode="BATTERY"> <templateId root="840.1.004325.10.4.1" /> <id nullFlavor="NA" /> <code codeSystem="local" code="MG" displayName= "Magnesium" /> <statusCode code="completed" /> <component> < observation moodCode="EVN" classCode="OBS"> <templateId root= "840.1.936109.07.02.22.4.2" /> <id nullFlavor="NA" /> < code codeSystem="local" code="MG" displayName="Magnesium" /> < statusCode code="completed" /> <effectiveTime value="" /> <value unit="mg/dL" xsi:type="PQ" value="1.8" /> < referenceRange> <observationRange> <text>1.8-2.5</text> </observationRange> </referenceRange> </observation > </component> </organizer> </entry> <entry> <organizer moodCode= "EVN" classCode="BATTERY"> <templateId root="840.1.062497.07.02.22.4.1 " /> <id nullFlavor="NA" /> <code codeSystem="local" code="PHOS" displayName="Phosphorus" /> <statusCode code="completed" /> <component > <observation moodCode="EVN" classCode="OBS"> <templateId root= "840.1.780905.07.02.22.4.2" /> <id nullFlavor="NA" /> < code codeSystem="local" code="PHOS" displayName="Phosphorus" /> < statusCode code="completed" /> <effectiveTime value="" /> <value unit="mg/dL" xsi:type="PQ" value="4.4" /> < referenceRange> <observationRange> <text>2.4-4.7</text> </observationRange> </referenceRange> </observation > </component> </organizer> </entry> <entry> <organizer moodCode= "EVN" classCode="BATTERY"> <templateId root="840.1.586069.07.02.22.4.1 " /> <id nullFlavor="NA" /> <code codeSystem="local" code="GFR" displayName="eGFR" /> <statusCode code="completed" /> <component> <observation moodCode="EVN" classCode="OBS"> <templateId root= "840.1.703518.07.02.22.4.2" /> <id nullFlavor="NA" /> < code codeSystem="local" code="GFR" displayName="eGFR" /> <statusCode code="completed" /> <effectiveTime value="571823258204" /> < value unit="mL/min" xsi:type="PQ" value=">60" /> <referenceRange> <observationRange> <text>>60</text> </ observationRange> </referenceRange> </observation> </ component> </organizer> </entry> <entry> <organizer moodCode="EVN" classCode="BATTERY"> <templateId root="10.29.840.1.880728.10.4.1" /> <id nullFlavor="NA" /> <code codeSystem="local" code="ZG575" displayName="Fungitell Assay" /> <statusCode code="completed" /> < component> <observation moodCode="EVN" classCode="OBS"> < templateId root="840.1.611851.10.4.2" /> <id nullFlavor="NA " /> <code codeSystem="local" code="Z2986" displayName="Fungitell Assay " /> <statusCode code="completed" /> <effectiveTime value= "746888022671" /> <value unit="pg/mL" xsi:type="PQ" value="<31" /> <referenceRange> <observationRange> <text>< 80</text> </observationRange> </referenceRange> </ observation> </component> </organizer> </entry> <entry> <organizer moodCode="EVN" classCode="BATTERY"> <templateId root= "10.29.840.1.308138.07.02.22.4.1" /> <id nullFlavor="NA" /> <code codeSystem="local" code="CBCWD" displayName="CBC With Platelet and Differential " /> <statusCode code="completed" /> <component> <observation moodCode="EVN" classCode="OBS"> <templateId root= "216.840.1.717684.10..4.2" /> <id nullFlavor="NA" /> < code codeSystem="local" code="ABASR" displayName="Absolute Basophils" /> <statusCode code="completed" /> <effectiveTime value="045894911142" /> <value unit="10*3/uL" xsi:type="PQ" value="0.01" /> < referenceRange> <observationRange> <text>0.00-0.20</text > </observationRange> </referenceRange> </observation > </component> <component> <observation moodCode="EVN" classCode="OBS"> <templateId root="216.840.1.675432.07.02.22.4.2" /> <id nullFlavor="NA" /> <code codeSystem="local" code="AEOSR" displayName="Absolute Eosinophils" /> <statusCode code="completed" /> <effectiveTime value="" /> <value unit="10*3/uL" xsi:type="PQ" value="0.02" /> <referenceRange> < observationRange> <text>0.00-0.50</text> </ observationRange> </referenceRange> </observation> </ component> <component> <observation moodCode="EVN" classCode="OBS"> <templateId root="2.16.840.1.035252...4.2" /> <id nullFlavor="NA" /> <code codeSystem="local" code="ALYMR" displayName= "Absolute Lymphocytes" /> <statusCode code="completed" /> < effectiveTime value="" /> <value unit="10*3/uL" xsi:type= "PQ" value="1.94" /> <referenceRange> <observationRange> <text>0.80-3.30</text> </observationRange> </ referenceRange> </observation> </component> <component> <observation moodCode="EVN" classCode="OBS"> <templateId root= "2.16.840.1.363725.07.02.22.4.2" /> <id nullFlavor="NA" /> < code codeSystem="local" code="AMONR" displayName="Absolute Monocytes" /> <statusCode code="completed" /> <effectiveTime value="" /> <value unit="10*3/uL" xsi:type="PQ" value="0.82" /> < referenceRange> <observationRange> <text>0.30-1.00</text > </observationRange> </referenceRange> </observation > </component> <component> <observation moodCode="EVN" classCode="OBS"> <templateId root="216.840.1.816194.10..4.2" /> <id nullFlavor="NA" /> <code codeSystem="local" code="ASEGR" displayName="Absolute Neutrophils" /> <statusCode code="completed" /> <effectiveTime value="" /> <value unit="10*3/uL" xsi:type="PQ" value="3.39" /> <referenceRange> < observationRange> <text>1.90-7.00</text> </ observationRange> </referenceRange> </observation> </ component> <component> <observation moodCode="EVN" classCode="OBS"> <templateId root="16.840.1.825021.07.02.22.4.2" /> <id nullFlavor="NA" /> <code codeSystem="local" code="BASOR" displayName= "Basophils" /> <statusCode code="completed" /> <effectiveTime value="" /> <value unit="%" xsi:type="PQ" value="0" /> <referenceRange> <observationRange> <text>0-2< /text> </observationRange> </referenceRange> </ observation> </component> <component> <observation moodCode= "EVN" classCode="OBS"> <templateId root="16.840.1.718427.10.22.4.2 " /> <id nullFlavor="NA" /> <code codeSystem="local" code= "EOSR" displayName="Eosinophils" /> <statusCode code="completed" /> <effectiveTime value="" /> <value unit="%" xsi: type="PQ" value="0" /> <referenceRange> <observationRange> <text>0-4</text> </observationRange> </ referenceRange> </observation> </component> <component> <observation moodCode="EVN" classCode="OBS"> <templateId root= "16.840.1.118219.10.20.22.4.2" /> <id nullFlavor="NA" /> < code codeSystem="local" code="HCT" displayName="HCT" /> <statusCode code="completed" /> <effectiveTime value="192888354659" /> < value unit="%" xsi:type="PQ" value="37.8" /> <interpretationCode codeSystem="local" code="*" /> <referenceRange> < observationRange> <text>42.0-52.0</text> </ observationRange> </referenceRange> </observation> </ component> <component> <observation moodCode="EVN" classCode="OBS"> <templateId root="10.29.840.1.768982.10..22.4.2" /> <id nullFlavor="NA" /> <code codeSystem="local" code="HGB" displayName="HGB " /> <statusCode code="completed" /> <effectiveTime value= "769493790371" /> <value unit="g/dL" xsi:type="PQ" value="12.5" /> <interpretationCode codeSystem="local" code="*" /> < referenceRange> <observationRange> <text>14.0-18.0</text > </observationRange> </referenceRange> </observation > </component> <component> <observation moodCode="EVN" classCode="OBS"> <templateId root="16.840.1.068610.10.20.22.4.2" /> <id nullFlavor="NA" /> <code codeSystem="local" code="IMGA" displayName="Immature Granulocytes" /> <statusCode code="completed" /> <effectiveTime value="" /> <value unit="%" xsi:type="PQ" value="0.6" /> <referenceRange> < observationRange> <text>0.0-1.0</text> </ observationRange> </referenceRange> </observation> </ component> <component> <observation moodCode="EVN" classCode="OBS"> <templateId root="10.29.840.1.840644.10.20.22.4.2" /> <id nullFlavor="NA" /> <code codeSystem="local" code="LYMPR" displayName= "Lymphocytes" /> <statusCode code="completed" /> < effectiveTime value="" /> <value unit="%" xsi:type="PQ " value="31" /> <referenceRange> <observationRange> <text>20-46</text> </observationRange> </ referenceRange> </observation> </component> <component> <observation moodCode="EVN" classCode="OBS"> <templateId root= "10.29.840.1.160188.10.20.22.4.2" /> <id nullFlavor="NA" /> < code codeSystem="local" code="MCH" displayName="MCH" /> <statusCode code="completed" /> <effectiveTime value="" /> < value unit="pg" xsi:type="PQ" value="29.3" /> <referenceRange> <observationRange> <text>27.0-32.0</text> </ observationRange> </referenceRange> </observation> </ component> <component> <observation moodCode="EVN" classCode="OBS"> <templateId root="10.29.830.1.170716.1022.4.2" /> <id nullFlavor="NA" /> <code codeSystem="local" code="MCHC" displayName= "MCHC" /> <statusCode code="completed" /> <effectiveTime value ="" /> <value unit="g/dL" xsi:type="PQ" value="33.1" /> <referenceRange> <observationRange> <text>32.0- 36.0</text> </observationRange> </referenceRange> </ observation> </component> <component> <observation moodCode= "EVN" classCode="OBS"> <templateId root="16.840.1.158445.07.02.22.4.2 " /> <id nullFlavor="NA" /> <code codeSystem="local" code="MCV " displayName="MCV" /> <statusCode code="completed" /> < effectiveTime value="" /> <value unit="fL" xsi:type="PQ" value="88.7" /> <referenceRange> <observationRange> <text>82.0-99.0</text> </observationRange> </ referenceRange> </observation> </component> <component> <observation moodCode="EVN" classCode="OBS"> <templateId root= "16.840.1.133483.10..4.2" /> <id nullFlavor="NA" /> < code codeSystem="local" code="MONOR" displayName="Monocytes" /> < statusCode code="completed" /> <effectiveTime value="" /> <value unit="%" xsi:type="PQ" value="13" /> < interpretationCode codeSystem="local" code="*" /> <referenceRange> <observationRange> <text>4-11</text> </ observationRange> </referenceRange> </observation> </ component> <component> <observation moodCode="EVN" classCode="OBS"> <templateId root="216.840.1.669576.10.4.2" /> <id nullFlavor="NA" /> <code codeSystem="local" code="MPV" displayName="MPV " /> <statusCode code="completed" /> <effectiveTime value= "" /> <value unit="fL" xsi:type="PQ" value="11.3" /> <referenceRange> <observationRange> <text>9.4-12.3</ text> </observationRange> </referenceRange> </ observation> </component> <component> <observation moodCode= "EVN" classCode="OBS"> <templateId root="10.29.840.1.696871.07.02.22.4.2 " /> <id nullFlavor="NA" /> <code codeSystem="local" code= "SEGR" displayName="Neutrophils" /> <statusCode code="completed" /> <effectiveTime value="" /> <value unit="%" xsi: type="PQ" value="55" /> <referenceRange> <observationRange> <text>51-75</text> </observationRange> </ referenceRange> </observation> </component> <component> <observation moodCode="EVN" classCode="OBS"> <templateId root= "16.840.1.227188.07.02.22.4.2" /> <id nullFlavor="NA" /> < code codeSystem="local" code="NRBCA" displayName="Nucleated RBC Automated" /> <statusCode code="completed" /> <effectiveTime value= "" /> <value unit="/100WBC" xsi:type="PQ" value="0.0" /> <referenceRange> <observationRange> <text /> </observationRange> </referenceRange> </observation> </component> <component> <observation moodCode="EVN" classCode= "OBS"> <templateId root="10.29.840.1.318414.10..22.4.2" /> < id nullFlavor="NA" /> <code codeSystem="local" code="PLT" displayName= "Platelet Count" /> <statusCode code="completed" /> < effectiveTime value="" /> <value unit="K/uL" xsi:type="PQ" value="127" /> <interpretationCode codeSystem="local" code="*" /> <referenceRange> <observationRange> <text>150-400</ text> </observationRange> </referenceRange> </ observation> </component> <component> <observation moodCode= "EVN" classCode="OBS"> <templateId root="10.29.840.1.779292.07.02.22.4.2 " /> <id nullFlavor="NA" /> <code codeSystem="local" code="RBC " displayName="RBC" /> <statusCode code="completed" /> < effectiveTime value="" /> <value unit="10*6/uL" xsi:type= "PQ" value="4.26" /> <interpretationCode codeSystem="local" code="*" / > <referenceRange> <observationRange> <text> 4.60-6.20</text> </observationRange> </referenceRange> </observation> </component> <component> <observation moodCode="EVN" classCode="OBS"> <templateId root= "10.29.840.1.206851..22.4.2" /> <id nullFlavor="NA" /> < code codeSystem="local" code="RDW" displayName="RDW" /> <statusCode code="completed" /> <effectiveTime value="" /> < value unit="%" xsi:type="PQ" value="15.6" /> <interpretationCode codeSystem="local" code="*" /> <referenceRange> < observationRange> <text>11.5-14.5</text> </ observationRange> </referenceRange> </observation> </ component> <component> <observation moodCode="EVN" classCode="OBS"> <templateId root="840.1.496095.22.4.2" /> <id nullFlavor="NA" /> <code codeSystem="local" code="WBCIR" displayName= "WBC" /> <statusCode code="completed" /> <effectiveTime value= "" /> <value unit="K/uL" xsi:type="PQ" value="6.2" /> <referenceRange> <observationRange> <text>4.8-10.8< /text> </observationRange> </referenceRange> </ observation> </component> </organizer> </entry> <entry> <organizer moodCode="EVN" classCode="BATTERY"> <templateId root= "840.1.041447.22.4.1" /> <id nullFlavor="NA" /> <code codeSystem="local" code="PT" displayName="Protime (INR)" /> <statusCode code="completed" /> <component> <observation moodCode="EVN" classCode="OBS"> <templateId root="840.1.562991.102022.4.2" /> <id nullFlavor="NA" /> <code codeSystem="local" code="INR" displayName="INR" /> <statusCode code="completed" /> < effectiveTime value="" /> <value unit="NA" xsi:type="PQ" value="1.0" /> <referenceRange> <observationRange> <text>0.9-1.2</text> </observationRange> </ referenceRange> </observation> </component> </organizer> </entry > <entry> <organizer moodCode="EVN" classCode="BATTERY"> <templateId root="16.840.1.633506.10..22.4.1" /> <id nullFlavor="NA" /> <code codeSystem="local" code="LACID" displayName="Lactic Acid Venous" /> < statusCode code="completed" /> <component> <observation moodCode= "EVN" classCode="OBS"> <templateId root="16.840.1.734235.10..22.4.2 " /> <id nullFlavor="NA" /> <code codeSystem="local" code= "LACID" displayName="Lactic Acid Venous" /> <statusCode code="completed " /> <effectiveTime value="[id number]" /> <value unit="mEq/L " xsi:type="PQ" value="2.2" /> <interpretationCode codeSystem="local" code="*" /> <referenceRange> <observationRange> <text>0.5-2.0</text> </observationRange> </referenceRange > </observation> </component> </organizer> </entry> <entry> <organizer moodCode="EVN" classCode="BATTERY"> <templateId root= "16.840.1.617598.10..22.4.1" /> <id nullFlavor="NA" /> <code codeSystem="local" code="TROP" displayName="Troponin" /> <statusCode code= "completed" /> <component> <observation moodCode="EVN" classCode= "OBS"> <templateId root="10.29.840.1.972006.10.4.2" /> < id nullFlavor="NA" /> <code codeSystem="local" code="TROP" displayName= "Troponin" /> <statusCode code="completed" /> <effectiveTime value="[id number]" /> <value unit="ng/mL" xsi:type="PQ" value="0.09" /> <interpretationCode codeSystem="local" code="" /> < referenceRange> <observationRange> <text><0.06</text > </observationRange> </referenceRange> </observation > </component> </organizer> </entry> <entry> <organizer moodCode= "EVN" classCode="BATTERY"> <templateId root="840.1.384229.07.02.22.4.1 " /> <id nullFlavor="NA" /> <code codeSystem="local" code="LIPID" displayName="Lipid Panel" /> <statusCode code="completed" /> < component> <observation moodCode="EVN" classCode="OBS"> < templateId root="10.29.840.1.304291.07.02.22.4.2" /> <id nullFlavor="NA " /> <code codeSystem="local" code="CHR" displayName="Cardiac Risk" /> <statusCode code="completed" /> <effectiveTime value= "[id number]" /> <value unit="" xsi:type="PQ" value="3.5" /> <referenceRange> <observationRange> <text>0.0-5.7</text > </observationRange> </referenceRange> </observation > </component> <component> <observation moodCode="EVN" classCode="OBS"> <templateId root="216.840.1.701093.10.22.4.2" /> <id nullFlavor="NA" /> <code codeSystem="local" code="CHOL" displayName="Cholesterol" /> <statusCode code="completed" /> < effectiveTime value="" /> <value unit="mg/dL" xsi:type="PQ " value="149" /> <referenceRange> <observationRange> <text>0-199</text> </observationRange> </ referenceRange> </observation> </component> <component> <observation moodCode="EVN" classCode="OBS"> <templateId root= "216.840.1.930738.07.02.22.4.2" /> <id nullFlavor="NA" /> < code codeSystem="local" code="HDL" displayName="HDL Cholesterol" /> < statusCode code="completed" /> <effectiveTime value="" /> <value unit="mg/dL" xsi:type="PQ" value="43" /> < referenceRange> <observationRange> <text>40-84</text> </observationRange> </referenceRange> </observation> </component> <component> <observation moodCode="EVN" classCode= "OBS"> <templateId root="10.29.840.1.577647.10.22.4.2" /> < id nullFlavor="NA" /> <code codeSystem="local" code="LDL" displayName= "LDL Cholesterol" /> <statusCode code="completed" /> < effectiveTime value="[id number]" /> <value unit="mg/dL" xsi:type="PQ " value="73" /> <referenceRange> <observationRange> <text>0-130</text> </observationRange> </ referenceRange> </observation> </component> <component> <observation moodCode="EVN" classCode="OBS"> <templateId root= "10.29.840.1.223682.10..22.4.2" /> <id nullFlavor="NA" /> < code codeSystem="local" code="TRIG" displayName="Triglycerides" /> < statusCode code="completed" /> <effectiveTime value="" /> <value unit="mg/dL" xsi:type="PQ" value="165" /> < interpretationCode codeSystem="local" code="*" /> <referenceRange> <observationRange> <text>0-149</text> </ observationRange> </referenceRange> </observation> </ component> <component> <observation moodCode="EVN" classCode="OBS"> <templateId root="10.29.840.1.466333.10..22.4.2" /> <id nullFlavor="NA" /> <code codeSystem="local" code="VLDL" displayName= "VLDL Cholesterol" /> <statusCode code="completed" /> < effectiveTime value="" /> <value unit="mg/dL" xsi:type="PQ " value="33" /> <interpretationCode codeSystem="local" code="*" /> <referenceRange> <observationRange> <text>0-28</ text> </observationRange> </referenceRange> </ observation> </component> </organizer> </entry> <entry> <organizer moodCode="EVN" classCode="BATTERY"> <templateId root= "10.29.840.1.811281.10.20.22.4.1" /> <id nullFlavor="NA" /> <code codeSystem="local" code="CBCWD" displayName="CBC With Platelet and Differential " /> <statusCode code="completed" /> <component> <observation moodCode="EVN" classCode="OBS"> <templateId root= "10.29.840.1.751103.10.4.2" /> <id nullFlavor="NA" /> < code codeSystem="local" code="ABASR" displayName="Absolute Basophils" /> <statusCode code="completed" /> <effectiveTime value="" /> <value unit="10*3/uL" xsi:type="PQ" value="0.02" /> < referenceRange> <observationRange> <text>0.00-0.20</text > </observationRange> </referenceRange> </observation > </component> <component> <observation moodCode="EVN" classCode="OBS"> <templateId root="840.1.848188.07.02.224.2" /> <id nullFlavor="NA" /> <code codeSystem="local" code="AEOSR" displayName="Absolute Eosinophils" /> <statusCode code="completed" /> <effectiveTime value="" /> <value unit="10*3/uL" xsi:type="PQ" value="0.15" /> <referenceRange> < observationRange> <text>0.00-0.50</text> </ observationRange> </referenceRange> </observation> </ component> <component> <observation moodCode="EVN" classCode="OBS"> <templateId root="10.29.840.1.173338.07.02.22.4.2" /> <id nullFlavor="NA" /> <code codeSystem="local" code="ALYMR" displayName= "Absolute Lymphocytes" /> <statusCode code="completed" /> < effectiveTime value="" /> <value unit="10*3/uL" xsi:type= "PQ" value="2.09" /> <referenceRange> <observationRange> <text>0.80-3.30</text> </observationRange> </ referenceRange> </observation> </component> <component> <observation moodCode="EVN" classCode="OBS"> <templateId root= "10.29.840.1.429890.102022.4.2" /> <id nullFlavor="NA" /> < code codeSystem="local" code="AMONR" displayName="Absolute Monocytes" /> <statusCode code="completed" /> <effectiveTime value="" /> <value unit="10*3/uL" xsi:type="PQ" value="1.20" /> < interpretationCode codeSystem="local" code="*" /> <referenceRange> <observationRange> <text>0.30-1.00</text> </ observationRange> </referenceRange> </observation> </ component> <component> <observation moodCode="EVN" classCode="OBS"> <templateId root="10.29.840.1.175212.102022.4.2" /> <id nullFlavor="NA" /> <code codeSystem="local" code="ASEGR" displayName= "Absolute Neutrophils" /> <statusCode code="completed" /> < effectiveTime value="" /> <value unit="10*3/uL" xsi:type= "PQ" value="4.86" /> <referenceRange> <observationRange> <text>1.90-7.00</text> </observationRange> </ referenceRange> </observation> </component> <component> <observation moodCode="EVN" classCode="OBS"> <templateId root= "10.29.830.1.094754.10.4.2" /> <id nullFlavor="NA" /> < code codeSystem="local" code="BASOR" displayName="Basophils" /> < statusCode code="completed" /> <effectiveTime value="" /> <value unit="%" xsi:type="PQ" value="0" /> <referenceRange > <observationRange> <text>0-2</text> </ observationRange> </referenceRange> </observation> </ component> <component> <observation moodCode="EVN" classCode="OBS"> <templateId root="216.840.1.128027.07.02.22.4.2" /> <id nullFlavor="NA" /> <code codeSystem="local" code="EOSR" displayName= "Eosinophils" /> <statusCode code="completed" /> < effectiveTime value="" /> <value unit="%" xsi:type="PQ " value="2" /> <referenceRange> <observationRange> <text>0-4</text> </observationRange> </referenceRange> </observation> </component> <component> <observation moodCode="EVN" classCode="OBS"> <templateId root= "216.840.1.368110.10.22.4.2" /> <id nullFlavor="NA" /> < code codeSystem="local" code="HCT" displayName="HCT" /> <statusCode code="completed" /> <effectiveTime value="" /> < value unit="%" xsi:type="PQ" value="37.9" /> <interpretationCode codeSystem="local" code="*" /> <referenceRange> < observationRange> <text>42.0-52.0</text> </ observationRange> </referenceRange> </observation> </ component> <component> <observation moodCode="EVN" classCode="OBS"> <templateId root="2.16.840.1.597798.10..4.2" /> <id nullFlavor="NA" /> <code codeSystem="local" code="HGB" displayName="HGB " /> <statusCode code="completed" /> <effectiveTime value= "" /> <value unit="g/dL" xsi:type="PQ" value="12.5" /> <interpretationCode codeSystem="local" code="*" /> < referenceRange> <observationRange> <text>14.0-18.0</text > </observationRange> </referenceRange> </observation > </component> <component> <observation moodCode="EVN" classCode="OBS"> <templateId root="216.840.1.146483.07.02.224.2" /> <id nullFlavor="NA" /> <code codeSystem="local" code="IMGA" displayName="Immature Granulocytes" /> <statusCode code="completed" /> <effectiveTime value="" /> <value unit="%" xsi:type="PQ" value="1.0" /> <referenceRange> < observationRange> <text>0.0-1.0</text> </ observationRange> </referenceRange> </observation> </ component> <component> <observation moodCode="EVN" classCode="OBS"> <templateId root="216.840.1.662405...4.2" /> <id nullFlavor="NA" /> <code codeSystem="local" code="LYMPR" displayName= "Lymphocytes" /> <statusCode code="completed" /> < effectiveTime value="" /> <value unit="%" xsi:type="PQ " value="25" /> <referenceRange> <observationRange> <text>20-46</text> </observationRange> </ referenceRange> </observation> </component> <component> <observation moodCode="EVN" classCode="OBS"> <templateId root= "216.840.1.759004.10.22.4.2" /> <id nullFlavor="NA" /> < code codeSystem="local" code="[facility]" displayName="[facility]" /> <statusCode code="completed" /> <effectiveTime value="" /> < value unit="pg" xsi:type="PQ" value="29.3" /> <referenceRange> <observationRange> <text>27.0-32.0</text> </ observationRange> </referenceRange> </observation> </ component> <component> <observation moodCode="EVN" classCode="OBS"> <templateId root="2.840.1.218805.10..4.2" /> <id nullFlavor="NA" /> <code codeSystem="local" code[facility]" displayName= "[facility]" /> <statusCode code="completed" /> <effectiveTime value ="" /> <value unit="g/dL" xsi:type="PQ" value="33.0" /> <referenceRange> <observationRange> <text>32.0- 36.0</text> </observationRange> </referenceRange> </ observation> </component> <component> <observation moodCode= "EVN" classCode="OBS"> <templateId root="216.840.1.183195.10.20.22.4.2 " /> <id nullFlavor="NA" /> <code codeSystem="local" code="MCV " displayName="MCV" /> <statusCode code="completed" /> < effectiveTime value="" /> <value unit="fL" xsi:type="PQ" value="88.8" /> <referenceRange> <observationRange> <text>82.0-99.0</text> </observationRange> </ referenceRange> </observation> </component> <component> <observation moodCode="EVN" classCode="OBS"> <templateId root= "216.840.1.959963.10..22.4.2" /> <id nullFlavor="NA" /> < code codeSystem="local" code="MONOR" displayName="Monocytes" /> < statusCode code="completed" /> <effectiveTime value="" /> <value unit="%" xsi:type="PQ" value="14" /> < interpretationCode codeSystem="local" code="*" /> <referenceRange> <observationRange> <text>4-11</text> </ observationRange> </referenceRange> </observation> </ component> <component> <observation moodCode="EVN" classCode="OBS"> <templateId root="216.840.1.211440.10..22.4.2" /> <id nullFlavor="NA" /> <code codeSystem="local" code="MPV" displayName="MPV " /> <statusCode code="completed" /> <effectiveTime value= "" /> <value unit="fL" xsi:type="PQ" value="11.3" /> <referenceRange> <observationRange> <text>9.4-12.3</ text> </observationRange> </referenceRange> </ observation> </component> <component> <observation moodCode= "EVN" classCode="OBS"> <templateId root="16.840.1.802246.10..22.4.2 " /> <id nullFlavor="NA" /> <code codeSystem="local" code= "SEGR" displayName="Neutrophils" /> <statusCode code="completed" /> <effectiveTime value="" /> <value unit="%" xsi: type="PQ" value="58" /> <referenceRange> <observationRange> <text>51-75</text> </observationRange> </ referenceRange> </observation> </component> <component> <observation moodCode="EVN" classCode="OBS"> <templateId root= "10.29.840.1.680704.10..4.2" /> <id nullFlavor="NA" /> < code codeSystem="local" code="NRBCA" displayName="Nucleated RBC Automated" /> <statusCode code="completed" /> <effectiveTime value= "" /> <value unit="/100WBC" xsi:type="PQ" value="0.6" /> <referenceRange> <observationRange> <text /> </observationRange> </referenceRange> </observation> </component> <component> <observation moodCode="EVN" classCode= "OBS"> <templateId root="10.29.840.1.388289.10...4.2" /> < id nullFlavor="NA" /> <code codeSystem="local" code="PLT" displayName= "Platelet Count" /> <statusCode code="completed" /> < effectiveTime value="" /> <value unit="K/uL" xsi:type="PQ" value="123" /> <interpretationCode codeSystem="local" code="*" /> <referenceRange> <observationRange> <text>150-400</ text> </observationRange> </referenceRange> </ observation> </component> <component> <observation moodCode= "EVN" classCode="OBS"> <templateId root="10.29.840.1.227313.10.20.22.4.2 " /> <id nullFlavor="NA" /> <code codeSystem="local" code="RBC " displayName="RBC" /> <statusCode code="completed" /> < effectiveTime value="" /> <value unit="10*6/uL" xsi:type= "PQ" value="4.27" /> <interpretationCode codeSystem="local" code="*" / > <referenceRange> <observationRange> <text> 4.60-6.20</text> </observationRange> </referenceRange> </observation> </component> <component> <observation moodCode="EVN" classCode="OBS"> <templateId root= "10.29.840.1.462596.10.22.4.2" /> <id nullFlavor="NA" /> < code codeSystem="local" code="RDW" displayName="RDW" /> <statusCode code="completed" /> <effectiveTime value="" /> < value unit="%" xsi:type="PQ" value="15.9" /> <interpretationCode codeSystem="local" code="*" /> <referenceRange> < observationRange> <text>11.5-14.5</text> </ observationRange> </referenceRange> </observation> </ component> <component> <observation moodCode="EVN" classCode="OBS"> <templateId root="10.29.840.1.862497.10.20.22.4.2" /> <id nullFlavor="NA" /> <code codeSystem="local" code="WBCIR" displayName= "WBC" /> <statusCode code="completed" /> <effectiveTime value= "[id number]" /> <value unit="K/uL" xsi:type="PQ" value="8.4" /> <referenceRange> <observationRange> <text>4.8-10.8< /text> </observationRange> </referenceRange> </ observation> </component> </organizer> </entry> <entry> <organizer moodCode="EVN" classCode="BATTERY"> <templateId root= "16.840.1.825151.10..22.4.1" /> <id nullFlavor="NA" /> <code codeSystem="local" code="LACID" displayName="Lactic Acid Venous" /> < statusCode code="completed" /> <component> <observation moodCode= "EVN" classCode="OBS"> <templateId root="16.840.1.631805.10.20.22.4.2 " /> <id nullFlavor="NA" /> <code codeSystem="local" code= "LACID" displayName="Lactic Acid Venous" /> <statusCode code="completed " /> <effectiveTime value="[id number]" /> <value unit="mEq/L " xsi:type="PQ" value="3.2" /> <interpretationCode codeSystem="local" code="*" /> <referenceRange> <observationRange> <text>0.5-2.0</text> </observationRange> </referenceRange > </observation> </component> </organizer> </entry> <entry> <organizer moodCode="EVN" classCode="BATTERY"> <templateId root= "16.840.1.058112.10.20.22.4.1" /> <id nullFlavor="NA" /> <code codeSystem="local" code="MG" displayName="Magnesium" /> <statusCode code= "completed" /> <component> <observation moodCode="EVN" classCode= "OBS"> <templateId root="216.840.1.473906.10.4.2" /> < id nullFlavor="NA" /> <code codeSystem="local" code="MG" displayName= "Magnesium" /> <statusCode code="completed" /> <effectiveTime value="" /> <value unit="mg/dL" xsi:type="PQ" value="2.0" / > <referenceRange> <observationRange> <text>1.8 -2.5</text> </observationRange> </referenceRange> </ observation> </component> </organizer> </entry> <entry> <organizer moodCode="EVN" classCode="BATTERY"> <templateId root= "16.840.1.103178.10..22.4.1" /> <id nullFlavor="NA" /> <code codeSystem="local" code="CMP" displayName="Comprehensive Metabolic Panel (CMP)" /> <statusCode code="completed" /> <component> <observation moodCode="EVN" classCode="OBS"> <templateId root= "16.840.1.382783.10..22.4.2" /> <id nullFlavor="NA" /> < code codeSystem="local" code="ALB" displayName="Albumin" /> < statusCode code="completed" /> <effectiveTime value="" /> <value unit="g/dL" xsi:type="PQ" value="3.2" /> < interpretationCode codeSystem="local" code="*" /> <referenceRange> <observationRange> <text>3.5-4.8</text> </ observationRange> </referenceRange> </observation> </ component> <component> <observation moodCode="EVN" classCode="OBS"> <templateId root="216.840.1.025909.10..4.2" /> <id nullFlavor="NA" /> <code codeSystem="local" code="ALP" displayName= "Alkaline Phosphatase" /> <statusCode code="completed" /> < effectiveTime value="" /> <value unit="U/L" xsi:type="PQ" value="98" /> <referenceRange> <observationRange> <text>26-104</text> </observationRange> </referenceRange > </observation> </component> <component> <observation moodCode="EVN" classCode="OBS"> <templateId root= "216.840.1.648601.10.4.2" /> <id nullFlavor="NA" /> < code codeSystem="local" code="ALT" displayName="ALT (SGPT)" /> < statusCode code="completed" /> <effectiveTime value="" /> <value unit="U/L" xsi:type="PQ" value="66" /> < interpretationCode codeSystem="local" code="*" /> <referenceRange> <observationRange> <text>17-63</text> </ observationRange> </referenceRange> </observation> </ component> <component> <observation moodCode="EVN" classCode="OBS"> <templateId root="216.840.1.680789.10...4.2" /> <id nullFlavor="NA" /> <code codeSystem="local" code="AGAP" displayName= "Anion Gap" /> <statusCode code="completed" /> <effectiveTime value="[id number]" /> <value unit="mEq/L" xsi:type="PQ" value="7" /> <referenceRange> <observationRange> <text>3-20 </text> </observationRange> </referenceRange> </ observation> </component> <component> <observation moodCode= "EVN" classCode="OBS"> <templateId root="216.840.1.257986.10.22.4.2 " /> <id nullFlavor="NA" /> <code codeSystem="local" code="AST " displayName="AST (SGOT)" /> <statusCode code="completed" /> <effectiveTime value="" /> <value unit="U/L" xsi:type="PQ" value="115" /> <interpretationCode codeSystem="local" code="*" /> <referenceRange> <observationRange> <text>15-41</ text> </observationRange> </referenceRange> </ observation> </component> <component> <observation moodCode= "EVN" classCode="OBS"> <templateId root="10.29.840.1.891456.07.02.22.4.2 " /> <id nullFlavor="NA" /> <code codeSystem="local" code= "BILIT" displayName="Bilirubin Total" /> <statusCode code="completed" / > <effectiveTime value="" /> <value unit="mg/dL" xsi:type="PQ" value="0.7" /> <referenceRange> < observationRange> <text>0.2-1.2</text> </ observationRange> </referenceRange> </observation> </ component> <component> <observation moodCode="EVN" classCode="OBS"> <templateId root="16.840.1.009581.10..22.4.2" /> <id nullFlavor="NA" /> <code codeSystem="local" code="BUN" displayName="BUN " /> <statusCode code="completed" /> <effectiveTime value= "" /> <value unit="mg/dL" xsi:type="PQ" value="25" /> <interpretationCode codeSystem="local" code="*" /> <referenceRange > <observationRange> <text>4-20</text> </ observationRange> </referenceRange> </observation> </ component> <component> <observation moodCode="EVN" classCode="OBS"> <templateId root="2.16.840.1.899591.10..22.4.2" /> <id nullFlavor="NA" /> <code codeSystem="local" code="CA" displayName= "Calcium" /> <statusCode code="completed" /> <effectiveTime value="" /> <value unit="mg/dL" xsi:type="PQ" value="8.3" / > <interpretationCode codeSystem="local" code="*" /> < referenceRange> <observationRange> <text>8.6-10.0</text > </observationRange> </referenceRange> </observation > </component> <component> <observation moodCode="EVN" classCode="OBS"> <templateId root="2.16.840.1.536326.10..22.4.2" /> <id nullFlavor="NA" /> <code codeSystem="local" code="CL" displayName="Chloride" /> <statusCode code="completed" /> < effectiveTime value="" /> <value unit="mEq/L" xsi:type="PQ " value="106" /> <referenceRange> <observationRange> <text>99-109</text> </observationRange> </ referenceRange> </observation> </component> <component> <observation moodCode="EVN" classCode="OBS"> <templateId root= "216.840.1.343001.10..4.2" /> <id nullFlavor="NA" /> < code codeSystem="local" code="CO2" displayName="CO2" /> <statusCode code="completed" /> <effectiveTime value="" /> < value unit="mEq/L" xsi:type="PQ" value="21" /> <interpretationCode codeSystem="local" code="*" /> <referenceRange> < observationRange> <text>22-32</text> </observationRange > </referenceRange> </observation> </component> < component> <observation moodCode="EVN" classCode="OBS"> < templateId root="16.840.1.473364.07.02.224.2" /> <id nullFlavor="NA " /> <code codeSystem="local" code="CREAT" displayName="Creatinine" /> <statusCode code="completed" /> <effectiveTime value= "" /> <value unit="mg/dL" xsi:type="PQ" value="1.32" /> <interpretationCode codeSystem="local" code="*" /> < referenceRange> <observationRange> <text>0.64-1.27</text > </observationRange> </referenceRange> </observation > </component> <component> <observation moodCode="EVN" classCode="OBS"> <templateId root="10.29.840.1.444052.22.4.2" /> <id nullFlavor="NA" /> <code codeSystem="local" code="GLOB" displayName="Globulin" /> <statusCode code="completed" /> < effectiveTime value="" /> <value unit="g/dL" xsi:type="PQ" value="3.4" /> <referenceRange> <observationRange> <text>1.9-4.3</text> </observationRange> </ referenceRange> </observation> </component> <component> <observation moodCode="EVN" classCode="OBS"> <templateId root= "10.29.840.1.888942.10..22.4.2" /> <id nullFlavor="NA" /> < code codeSystem="local" code="GLU" displayName="Glucose" /> < statusCode code="completed" /> <effectiveTime value="" /> <value unit="mg/dL" xsi:type="PQ" value="98" /> < referenceRange> <observationRange> <text>70-100</text> </observationRange> </referenceRange> </observation> </component> <component> <observation moodCode="EVN" classCode ="OBS"> <templateId root="10.29.840.1.945604.10..4.2" /> < id nullFlavor="NA" /> <code codeSystem="local" code="K" displayName= "Potassium" /> <statusCode code="completed" /> <effectiveTime value="" /> <value unit="mEq/L" xsi:type="PQ" value="5.5" / > <interpretationCode codeSystem="local" code="*" /> < referenceRange> <observationRange> <text>3.6-5.1</text> </observationRange> </referenceRange> </observation > </component> <component> <observation moodCode="EVN" classCode="OBS"> <templateId root="10.29.840.1.148092.10..22.4.2" /> <id nullFlavor="NA" /> <code codeSystem="local" code="TP" displayName="Protein" /> <statusCode code="completed" /> < effectiveTime value="" /> <value unit="g/dL" xsi:type="PQ" value="6.6" /> <referenceRange> <observationRange> <text>6.1-7.9</text> </observationRange> </ referenceRange> </observation> </component> <component> <observation moodCode="EVN" classCode="OBS"> <templateId root= "10.29.840.1.775427.07.02.22.4.2" /> <id nullFlavor="NA" /> < code codeSystem="local" code="NA" displayName="Sodium" /> <statusCode code="completed" /> <effectiveTime value="" /> < value unit="mEq/L" xsi:type="PQ" value="134" /> <interpretationCode codeSystem="local" code="*" /> <referenceRange> < observationRange> <text>136-144</text> </ observationRange> </referenceRange> </observation> </ component> </organizer> </entry> <entry> <organizer moodCode="EVN" classCode="BATTERY"> <templateId root="840.1.508042.22.4.1" /> <id nullFlavor="NA" /> <code codeSystem="local" code="GFR" displayName ="eGFR" /> <statusCode code="completed" /> <component> < observation moodCode="EVN" classCode="OBS"> <templateId root= "10.29.840.1.726841.22.4.2" /> <id nullFlavor="NA" /> < code codeSystem="local" code="GFR" displayName="eGFR" /> <statusCode code="completed" /> <effectiveTime value="" /> < value unit="mL/min" xsi:type="PQ" value="58" /> <interpretationCode codeSystem="local" code="*" /> <referenceRange> < observationRange> <text>>60</text> </observationRange > </referenceRange> </observation> </component> </ organizer> </entry> <entry> <organizer moodCode="EVN" classCode="BATTERY"> <templateId root="16.840.1.392937.10..22.4.1" /> <id nullFlavor= "NA" /> <code codeSystem="local" code="TROP" displayName="Troponin" /> <statusCode code="completed" /> <component> <observation moodCode= "EVN" classCode="OBS"> <templateId root="10.29.840.1.249007.10..22.4.2 " /> <id nullFlavor="NA" /> <code codeSystem="local" code= "TROP" displayName="Troponin" /> <statusCode code="completed" /> <effectiveTime value="[id number]" /> <value unit="ng/mL" xsi:type ="PQ" value="0.23" /> <interpretationCode codeSystem="local" code="" /> <referenceRange> <observationRange> <text>& lt;0.06</text> </observationRange> </referenceRange> </observation> </component> </organizer> </entry> <entry> < organizer moodCode="EVN" classCode="BATTERY"> <templateId root= "10.29.840.1.295165.10.20.22.4.1" /> <id nullFlavor="NA" /> <code codeSystem="local" code="BNP" displayName="B-Type Natriuretic Peptide" /> < statusCode code="completed" /> <component> <observation moodCode= "EVN" classCode="OBS"> <templateId root="216.840.1.542188.10..4.2 " /> <id nullFlavor="NA" /> <code codeSystem="local" code="BNP " displayName="B-Type Natriuretic Peptide" /> <statusCode code= "completed" /> <effectiveTime value="" /> <value unit="pg/mL" xsi:type="PQ" value="1880" /> <interpretationCode codeSystem="local" code="*" /> <referenceRange> < observationRange> <text>0-99</text> </observationRange> </referenceRange> </observation> </component> </ organizer> </entry> <entry> <organizer moodCode="EVN" classCode="BATTERY"> <templateId root="216.840.1.953208.10..4.1" /> <id nullFlavor= "NA" /> <code codeSystem="local" code="UDRGH" displayName="Urine Drug Screen" /> <statusCode code="completed" /> <component> < observation moodCode="EVN" classCode="OBS"> <templateId root= "216.840.1.756725.10..4.2" /> <id nullFlavor="NA" /> < code codeSystem="local" code="UAMP1" displayName="Amph/Meth/Ecstasy" /> <statusCode code="completed" /> <effectiveTime value="[id number]" / > <value unit="NA" xsi:type="PQ" value="Positive" /> < interpretationCode codeSystem="local" code="*" /> <referenceRange> <observationRange> <text /> </observationRange> </referenceRange> </observation> </component> < component> <observation moodCode="EVN" classCode="OBS"> < templateId root="216.840.1.224421.07.02.22.4.2" /> <id nullFlavor="NA " /> <code codeSystem="local" code="UBAR1" displayName="Barbiturates" / > <statusCode code="completed" /> <effectiveTime value= "" /> <value unit="NA" xsi:type="PQ" value="Negative" /> <referenceRange> <observationRange> <text /> </observationRange> </referenceRange> </observation> </component> <component> <observation moodCode="EVN" classCode= "OBS"> <templateId root="216.840.1.408970.07.02.22.4.2" /> < id nullFlavor="NA" /> <code codeSystem="local" code="UBEN1" displayName ="Benzodiazepine" /> <statusCode code="completed" /> < effectiveTime value="" /> <value unit="NA" xsi:type="PQ" value="Negative" /> <referenceRange> <observationRange> <text /> </observationRange> </referenceRange> </observation> </component> <component> <observation moodCode="EVN" classCode="OBS"> <templateId root= "16.840.1.085672.10.4.2" /> <id nullFlavor="NA" /> < code codeSystem="local" code="UCAN1" displayName="Cannabinoid" /> < statusCode code="completed" /> <effectiveTime value="" /> <value unit="NA" xsi:type="PQ" value="Negative" /> < referenceRange> <observationRange> <text /> < /observationRange> </referenceRange> </observation> </ component> <component> <observation moodCode="EVN" classCode="OBS"> <templateId root="216.840.1.990238.07.02.22.4.2" /> <id nullFlavor="NA" /> <code codeSystem="local" code="UCOC1" displayName= "Cocaine" /> <statusCode code="completed" /> <effectiveTime value="" /> <value unit="NA" xsi:type="PQ" value="Negative " /> <referenceRange> <observationRange> <text /> </observationRange> </referenceRange> </ observation> </component> <component> <observation moodCode= "EVN" classCode="OBS"> <templateId root="10.29.840.1.234265.07.02.224.2 " /> <id nullFlavor="NA" /> <code codeSystem="local" code= "UMTD1" displayName="EDDP (Methadone met.)" /> <statusCode code= "completed" /> <effectiveTime value="" /> <value unit="NA" xsi:type="PQ" value="Negative" /> <referenceRange> <observationRange> <text /> </observationRange> </referenceRange> </observation> </component> <component> <observation moodCode="EVN" classCode="OBS"> <templateId root= "10.29.840.1.869030.10..4.2" /> <id nullFlavor="NA" /> < code codeSystem="local" code="UOPI1" displayName="Opiate" /> < statusCode code="completed" /> <effectiveTime value="" /> <value unit="NA" xsi:type="PQ" value="Positive" /> < interpretationCode codeSystem="local" code="*" /> <referenceRange> <observationRange> <text /> </observationRange> </referenceRange> </observation> </component> < component> <observation moodCode="EVN" classCode="OBS"> < templateId root="16.840.1.522027.10...4.2" /> <id nullFlavor="NA " /> <code codeSystem="local" code="UPCP1" displayName="Phencyclidine ( PCP)" /> <statusCode code="completed" /> <effectiveTime value= "539281408175" /> <value unit="NA" xsi:type="PQ" value="Negative" /> <referenceRange> <observationRange> <text /> </observationRange> </referenceRange> </observation> </component> </organizer> </entry> <entry> <organizer moodCode="EVN " classCode="BATTERY"> <templateId root="10.29.840.1.151818.10...4.1" / > <id nullFlavor="NA" /> <code codeSystem="local" code="TROP" displayName="Troponin" /> <statusCode code="completed" /> <component> <observation moodCode="EVN" classCode="OBS"> <templateId root= "10.29.840.1.525187.10.22.4.2" /> <id nullFlavor="NA" /> < code codeSystem="local" code="TROP" displayName="Troponin" /> < statusCode code="completed" /> <effectiveTime value="420994055216" /> <value unit="ng/mL" xsi:type="PQ" value="0.46" /> < interpretationCode codeSystem="local" code="" /> <referenceRange> <observationRange> <text><0.06</text> </ observationRange> </referenceRange> </observation> </ component> </organizer> </entry> <entry> <organizer moodCode="EVN" classCode="BATTERY"> <templateId root="216.840.1.160238.10..4.1" /> <id nullFlavor="NA" /> <code codeSystem="local" code="ABGRT" displayName="Blood Gases, Arterial (RT)" /> <statusCode code="completed" / > <component> <observation moodCode="EVN" classCode="OBS"> <templateId root="216.840.1.187604.10..4.2" /> <id nullFlavor="NA " /> <code codeSystem="local" code="YNES" displayName="Arterial Base Excess" /> <statusCode code="completed" /> <effectiveTime value="" /> <value unit="NA" xsi:type="PQ" value="-7" /> <interpretationCode codeSystem="local" code="*" /> < referenceRange> <observationRange> <text>0-2</text> </observationRange> </referenceRange> </observation> </component> <component> <observation moodCode="EVN" classCode= "OBS"> <templateId root="16.840.1.288878.07.02.22.4.2" /> < id nullFlavor="NA" /> <code codeSystem="local" code="AHCO3" displayName ="Arterial Bicarbonate" /> <statusCode code="completed" /> < effectiveTime value="" /> <value unit="mEq/L" xsi:type="PQ " value="15" /> <interpretationCode codeSystem="local" code="*" /> <referenceRange> <observationRange> <text>22-26</ text> </observationRange> </referenceRange> </ observation> </component> <component> <observation moodCode= "EVN" classCode="OBS"> <templateId root="216.840.1.687378.10.4.2 " /> <id nullFlavor="NA" /> <code codeSystem="local" code= "AOSAT" displayName="Arterial O2 Saturation" /> <statusCode code= "completed" /> <effectiveTime value="561932273301" /> <value unit="%" xsi:type="PQ" value="90.0" /> <referenceRange> <observationRange> <text>90.0-97.0</text> </ observationRange> </referenceRange> </observation> </ component> <component> <observation moodCode="EVN" classCode="OBS"> <templateId root="10.29.840.1.286082.07.02.224.2" /> <id nullFlavor="NA" /> <code codeSystem="local" code="APCO2" displayName= "Arterial PCO2" /> <statusCode code="completed" /> < effectiveTime value="187545521822" /> <value unit="mmHg" xsi:type="PQ" value="23" /> <interpretationCode codeSystem="local" code="*" /> <referenceRange> <observationRange> <text>35-45</ text> </observationRange> </referenceRange> </ observation> </component> <component> <observation moodCode= "EVN" classCode="OBS"> <templateId root="16.840.1.632721.07.02.22.4.2 " /> <id nullFlavor="NA" /> <code codeSystem="local" code="APH " displayName="Arterial PH" /> <statusCode code="completed" /> <effectiveTime value="139323312544" /> <value unit="NA" xsi:type="PQ " value="7.43" /> <referenceRange> <observationRange> <text>7.35-7.45</text> </observationRange> </ referenceRange> </observation> </component> <component> <observation moodCode="EVN" classCode="OBS"> <templateId root= "16.840.1.072052.07.02.22.4.2" /> <id nullFlavor="NA" /> < code codeSystem="local" code="APO2" displayName="Arterial PO2" /> < statusCode code="completed" /> <effectiveTime value="727004156883" /> <value unit="mmHg" xsi:type="PQ" value="58" /> < interpretationCode codeSystem="local" code="*" /> <referenceRange> <observationRange> <text>80-100</text> </ observationRange> </referenceRange> </observation> </ component> <component> <observation moodCode="EVN" classCode="OBS"> <templateId root="10.29.840.1.370659.07.02.22.4.2" /> <id nullFlavor="NA" /> <code codeSystem="local" code="AFLOW" displayName= "Arterial LPM" /> <statusCode code="completed" /> < effectiveTime value="983336505142" /> <value unit="L/min" xsi:type="PQ " value="8.00" /> <referenceRange> <observationRange> <text /> </observationRange> </referenceRange> </observation> </component> <component> <observation moodCode="EVN" classCode="OBS"> <templateId root= "10.29.840.1.549843...4.2" /> <id nullFlavor="NA" /> < code codeSystem="local" code="AO2PN" displayName="O2 Panel" /> < statusCode code="completed" /> <effectiveTime value="083170979278" /> <value unit="" xsi:type="PQ" value="SEE BELOW" /> < referenceRange> <observationRange> <text /> < /observationRange> </referenceRange> </observation> </ component> </organizer> </entry> <entry> <organizer moodCode="EVN" classCode="BATTERY"> <templateId root="216.840.1.955682.10..22.4.1" /> <id nullFlavor="NA" /> <code codeSystem="local" code="LACID" displayName="Lactic Acid Venous" /> <statusCode code="completed" /> < component> <observation moodCode="EVN" classCode="OBS"> < templateId root="16.840.1.373282.10..22.4.2" /> <id nullFlavor="NA " /> <code codeSystem="local" code="LACID" displayName="Lactic Acid Venous" /> <statusCode code="completed" /> <effectiveTime value="717422112748" /> <value unit="mEq/L" xsi:type="PQ" value="3.8" / > <interpretationCode codeSystem="local" code="*" /> < referenceRange> <observationRange> <text>0.5-2.0</text> </observationRange> </referenceRange> </observation > </component> </organizer> </entry> <entry> <organizer moodCode= "EVN" classCode="BATTERY"> <templateId root="16.840.1.534777.10..22.4.1 " /> <id nullFlavor="NA" /> <code codeSystem="local" code="BMP" displayName="Basic Metabolic Panel (BMP)" /> <statusCode code="completed" / > <component> <observation moodCode="EVN" classCode="OBS"> <templateId root="10.29.840.1.849615.10.4.2" /> <id nullFlavor="NA " /> <code codeSystem="local" code="AGAP" displayName="Anion Gap" /> <statusCode code="completed" /> <effectiveTime value= "" /> <value unit="mEq/L" xsi:type="PQ" value="13" /> <referenceRange> <observationRange> <text>3-20</ text> </observationRange> </referenceRange> </ observation> </component> <component> <observation moodCode= "EVN" classCode="OBS"> <templateId root="840.1.460012.07.02.224.2 " /> <id nullFlavor="NA" /> <code codeSystem="local" code="BUN " displayName="BUN" /> <statusCode code="completed" /> < effectiveTime value="" /> <value unit="mg/dL" xsi:type="PQ " value="30" /> <interpretationCode codeSystem="local" code="*" /> <referenceRange> <observationRange> <text>4-20</ text> </observationRange> </referenceRange> </ observation> </component> <component> <observation moodCode= "EVN" classCode="OBS"> <templateId root="10.29.840.1.251884.22.4.2 " /> <id nullFlavor="NA" /> <code codeSystem="local" code="CA " displayName="Calcium" /> <statusCode code="completed" /> < effectiveTime value="" /> <value unit="mg/dL" xsi:type="PQ " value="8.0" /> <interpretationCode codeSystem="local" code="*" /> <referenceRange> <observationRange> <text>8.6- 10.0</text> </observationRange> </referenceRange> </ observation> </component> <component> <observation moodCode= "EVN" classCode="OBS"> <templateId root="16.840.1.295038...4.2 " /> <id nullFlavor="NA" /> <code codeSystem="local" code="CL " displayName="Chloride" /> <statusCode code="completed" /> < effectiveTime value="" /> <value unit="mEq/L" xsi:type="PQ " value="104" /> <referenceRange> <observationRange> <text>99-109</text> </observationRange> </ referenceRange> </observation> </component> <component> <observation moodCode="EVN" classCode="OBS"> <templateId root= "16.840.1.364102.07.02.22.4.2" /> <id nullFlavor="NA" /> < code codeSystem="local" code="CO2" displayName="CO2" /> <statusCode code="completed" /> <effectiveTime value="" /> < value unit="mEq/L" xsi:type="PQ" value="17" /> <interpretationCode codeSystem="local" code="*" /> <referenceRange> < observationRange> <text>22-32</text> </observationRange > </referenceRange> </observation> </component> < component> <observation moodCode="EVN" classCode="OBS"> < templateId root="16.840.1.349189.22.4.2" /> <id nullFlavor="NA " /> <code codeSystem="local" code="CREAT" displayName="Creatinine" /> <statusCode code="completed" /> <effectiveTime value= "" /> <value unit="mg/dL" xsi:type="PQ" value="1.47" /> <interpretationCode codeSystem="local" code="*" /> < referenceRange> <observationRange> <text>0.64-1.27</text > </observationRange> </referenceRange> </observation > </component> <component> <observation moodCode="EVN" classCode="OBS"> <templateId root="10.29.840.1.064119.07.02.22.4.2" /> <id nullFlavor="NA" /> <code codeSystem="local" code="GLU" displayName="Glucose" /> <statusCode code="completed" /> < effectiveTime value="" /> <value unit="mg/dL" xsi:type="PQ " value="70" /> <referenceRange> <observationRange> <text>70-100</text> </observationRange> </ referenceRange> </observation> </component> <component> <observation moodCode="EVN" classCode="OBS"> <templateId root= "10.29.840.1.131096.22.4.2" /> <id nullFlavor="NA" /> < code codeSystem="local" code="K" displayName="Potassium" /> < statusCode code="completed" /> <effectiveTime value="" /> <value unit="mEq/L" xsi:type="PQ" value="6.2" /> < interpretationCode codeSystem="local" code="" /> <referenceRange> <observationRange> <text>3.6-5.1</text> </ observationRange> </referenceRange> </observation> </ component> <component> <observation moodCode="EVN" classCode="OBS"> <templateId root="10.29.840.1.562057.1022.4.2" /> <id nullFlavor="NA" /> <code codeSystem="local" code="NA" displayName= "Sodium" /> <statusCode code="completed" /> <effectiveTime value="" /> <value unit="mEq/L" xsi:type="PQ" value="134" / > <interpretationCode codeSystem="local" code="*" /> < referenceRange> <observationRange> <text>136-144</text> </observationRange> </referenceRange> </observation > </component> </organizer> </entry> <entry> <organizer moodCode= "EVN" classCode="BATTERY"> <templateId root="10.29.840.1.654435.10.22.4.1 " /> <id nullFlavor="NA" /> <code codeSystem="local" code="GFR" displayName="eGFR" /> <statusCode code="completed" /> <component> <observation moodCode="EVN" classCode="OBS"> <templateId root= "10.29.840.1.061915.1022.4.2" /> <id nullFlavor="NA" /> < code codeSystem="local" code="GFR" displayName="eGFR" /> <statusCode code="completed" /> <effectiveTime value="" /> < value unit="mL/min" xsi:type="PQ" value="51" /> <interpretationCode codeSystem="local" code="*" /> <referenceRange> < observationRange> <text>>60</text> </observationRange > </referenceRange> </observation> </component> </ organizer> </entry> <entry> <organizer moodCode="EVN" classCode="BATTERY"> <templateId root="840.1.034286.07.02.22.4.1" /> <id nullFlavor= "NA" /> <code codeSystem="local" code="GLUN" displayName="Glucose NPT" /> <statusCode code="completed" /> <component> <observation moodCode="EVN" classCode="OBS"> <templateId root= "840.1.965699.07.02.22.4.2" /> <id nullFlavor="NA" /> < code codeSystem="local" code="GLUN" displayName="Glucose NPT" /> < statusCode code="completed" /> <effectiveTime value="547655067826" /> <value unit="mg/dL" xsi:type="PQ" value="47" /> < interpretationCode codeSystem="local" code="*" /> <referenceRange> <observationRange> <text>70-100</text> </ observationRange> </referenceRange> </observation> </ component> </organizer> </entry> <entry> <organizer moodCode="EVN" classCode="BATTERY"> <templateId root="840.1.234520.07.02.22.4.1" /> <id nullFlavor="NA" /> <code codeSystem="local" code="GLUN" displayName="Glucose NPT" /> <statusCode code="completed" /> < component> <observation moodCode="EVN" classCode="OBS"> < templateId root="840.1.722994.07.02.22.4.2" /> <id nullFlavor="NA " /> <code codeSystem="local" code="GLUN" displayName="Glucose NPT" / > <statusCode code="completed" /> <effectiveTime value= "" /> <value unit="mg/dL" xsi:type="PQ" value="43" /> <interpretationCode codeSystem="local" code="*" /> <referenceRange > <observationRange> <text>70-100</text> </ observationRange> </referenceRange> </observation> </ component> </organizer> </entry> <entry> <organizer moodCode="EVN" classCode="BATTERY"> <templateId root="16.840.1.196257.10...4.1" /> <id nullFlavor="NA" /> <code codeSystem="local" code="GLUN" displayName="Glucose NPT" /> <statusCode code="completed" /> < component> <observation moodCode="EVN" classCode="OBS"> < templateId root="16.840.1.122871.10..22.4.2" /> <id nullFlavor="NA " /> <code codeSystem="local" code="GLUN" displayName="Glucose NPT" / > <statusCode code="completed" /> <effectiveTime value= "" /> <value unit="mg/dL" xsi:type="PQ" value="67" /> <interpretationCode codeSystem="local" code="*" /> <referenceRange > <observationRange> <text>70-100</text> </ observationRange> </referenceRange> </observation> </ component> </organizer> </entry> <entry> <organizer moodCode="EVN" classCode="BATTERY"> <templateId root="16.840.1.188696.10.20.22.4.1" /> <id nullFlavor="NA" /> <code codeSystem="local" code="GLUN" displayName="Glucose NPT" /> <statusCode code="completed" /> < component> <observation moodCode="EVN" classCode="OBS"> < templateId root="16.840.1.857038.10..4.2" /> <id nullFlavor="NA " /> <code codeSystem="local" code="GLUN" displayName="Glucose NPT" / > <statusCode code="completed" /> <effectiveTime value= "" /> <value unit="mg/dL" xsi:type="PQ" value="97" /> <referenceRange> <observationRange> <text>70-100</ text> </observationRange> </referenceRange> </ observation> </component> </organizer> </entry> <entry> <organizer moodCode="EVN" classCode="BATTERY"> <templateId root= "10.29.840.1.239237.10..4.1" /> <id nullFlavor="NA" /> <code codeSystem="local" code="UA" displayName="Urinalysis with reflex microscopic" / > <statusCode code="completed" /> <component> <observation moodCode="EVN" classCode="OBS"> <templateId root= "10.29.840.1.677025.10..4.2" /> <id nullFlavor="NA" /> < code codeSystem="local" code="UAPP" displayName="Appearance" /> < statusCode code="completed" /> <effectiveTime value="" /> <value unit="NA" xsi:type="PQ" value="Cloudy" /> < interpretationCode codeSystem="local" code="*" /> <referenceRange> <observationRange> <text /> </observationRange> </referenceRange> </observation> </component> < component> <observation moodCode="EVN" classCode="OBS"> < templateId root="16.840.1.835464.10.4.2" /> <id nullFlavor="NA " /> <code codeSystem="local" code="UBIL" displayName="Bilirubin" /> <statusCode code="completed" /> <effectiveTime value= "" /> <value unit="NA" xsi:type="PQ" value="Negative" /> <referenceRange> <observationRange> <text> Negative</text> </observationRange> </referenceRange> </observation> </component> <component> <observation moodCode ="EVN" classCode="OBS"> <templateId root= "16.840.1.419125.07.02.22.4.2" /> <id nullFlavor="NA" /> < code codeSystem="local" code="UBLD" displayName="Blood" /> <statusCode code="completed" /> <effectiveTime value="" /> < value unit="NA" xsi:type="PQ" value="Pos 1+" /> <interpretationCode codeSystem="local" code="*" /> <referenceRange> < observationRange> <text>Negative</text> </ observationRange> </referenceRange> </observation> </ component> <component> <observation moodCode="EVN" classCode="OBS"> <templateId root="10.29.840.1.305078...4.2" /> <id nullFlavor="NA" /> <code codeSystem="local" code="UCOLR" displayName= "Color" /> <statusCode code="completed" /> <effectiveTime value="" /> <value unit="NA" xsi:type="PQ" value="Yellow" / > <referenceRange> <observationRange> <text /> </observationRange> </referenceRange> </observation > </component> <component> <observation moodCode="EVN" classCode="OBS"> <templateId root="10.29.840.1.221215.10.4.2" /> <id nullFlavor="NA" /> <code codeSystem="local" code="UGLU" displayName="Glucose, Urine" /> <statusCode code="completed" /> <effectiveTime value="" /> <value unit="" xsi:type="PQ" value="Pos 1+" /> <interpretationCode codeSystem="local" code="*" /> <referenceRange> <observationRange> <text> Negative</text> </observationRange> </referenceRange> </observation> </component> <component> <observation moodCode ="EVN" classCode="OBS"> <templateId root= "840.1.942822.10.4.2" /> <id nullFlavor="NA" /> < code codeSystem="local" code="UKET" displayName="Ketones" /> < statusCode code="completed" /> <effectiveTime value="" /> <value unit="" xsi:type="PQ" value="Negative" /> < referenceRange> <observationRange> <text>Negative</text > </observationRange> </referenceRange> </observation > </component> <component> <observation moodCode="EVN" classCode="OBS"> <templateId root="10.29.840.1.438494.10.4.2" /> <id nullFlavor="NA" /> <code codeSystem="local" code="ULEU" displayName="Leukocyte Esterase" /> <statusCode code="completed" /> <effectiveTime value="" /> <value unit="NA" xsi:type ="PQ" value="Negative" /> <referenceRange> <observationRange > <text>Negative</text> </observationRange> </ referenceRange> </observation> </component> <component> <observation moodCode="EVN" classCode="OBS"> <templateId root= "10.29.840.1.127099.22.4.2" /> <id nullFlavor="NA" /> < code codeSystem="local" code="UNIT" displayName="Nitrites" /> < statusCode code="completed" /> <effectiveTime value="" /> <value unit="NA" xsi:type="PQ" value="Negative" /> < referenceRange> <observationRange> <text>Negative</text > </observationRange> </referenceRange> </observation > </component> <component> <observation moodCode="EVN" classCode="OBS"> <templateId root="840.1.097038.07.02.22.4.2" /> <id nullFlavor="NA" /> <code codeSystem="local" code="UPH" displayName="pH" /> <statusCode code="completed" /> < effectiveTime value="" /> <value unit="NA" xsi:type="PQ" value="5.0" /> <referenceRange> <observationRange> <text>5.0-8.0</text> </observationRange> </ referenceRange> </observation> </component> <component> <observation moodCode="EVN" classCode="OBS"> <templateId root= "10.29.840.1.861887.22.4.2" /> <id nullFlavor="NA" /> < code codeSystem="local" code="UPRO" displayName="Protein" /> < statusCode code="completed" /> <effectiveTime value="104363570941" /> <value unit="NA" xsi:type="PQ" value="Pos 2+" /> < interpretationCode codeSystem="local" code="*" /> <referenceRange> <observationRange> <text>Negative</text> </ observationRange> </referenceRange> </observation> </ component> <component> <observation moodCode="EVN" classCode="OBS"> <templateId root="10.29.840.1.322621.10..22.4.2" /> <id nullFlavor="NA" /> <code codeSystem="local" code="USPG" displayName= "Specific Casmalia" /> <statusCode code="completed" /> < effectiveTime value="" /> <value unit="NA" xsi:type="PQ" value="1.020" /> <referenceRange> <observationRange> <text>1.003-1.030</text> </observationRange> </ referenceRange> </observation> </component> <component> <observation moodCode="EVN" classCode="OBS"> <templateId root= "10.29.840.1.543055...22.4.2" /> <id nullFlavor="NA" /> < code codeSystem="local" code="UTYP" displayName="UA Collection type" /> <statusCode code="completed" /> <effectiveTime value="071513590978" / > <value unit="NA" xsi:type="PQ" value="Clean Catch" /> < referenceRange> <observationRange> <text /> < /observationRange> </referenceRange> </observation> </ component> <component> <observation moodCode="EVN" classCode="OBS"> <templateId root="10.29.840.1.983951.07.02.22.4.2" /> <id nullFlavor="NA" /> <code codeSystem="local" code="UURO" displayName= "Urobilinogen" /> <statusCode code="completed" /> < effectiveTime value="588801517095" /> <value unit="mg/dL" xsi:type="PQ " value="4.0" /> <referenceRange> <observationRange> <text><1.0</text> </observationRange> </ referenceRange> </observation> </component> </organizer> </entry > <entry> <organizer moodCode="EVN" classCode="BATTERY"> <templateId root="16.840.1.846812.07.02.22.4.1" /> <id nullFlavor="NA" /> <code codeSystem="local" code="UMIC" displayName="Urine Microscopic" /> < statusCode code="completed" /> <component> <observation moodCode= "EVN" classCode="OBS"> <templateId root="10.29.840.1.240141.07.02.22.4.2 " /> <id nullFlavor="NA" /> <code codeSystem="local" code= "UBAC" displayName="Bacteria" /> <statusCode code="completed" /> <effectiveTime value="892340924946" /> <value unit="NA" xsi:type= "PQ" value="Rare" /> <referenceRange> <observationRange> <text /> </observationRange> </referenceRange> </observation> </component> <component> <observation moodCode="EVN" classCode="OBS"> <templateId root= "10.29.840.1.979588.07.02.22.4.2" /> <id nullFlavor="NA" /> < code codeSystem="local" code="UEPI" displayName="Epithelial Cells" /> < statusCode code="completed" /> <effectiveTime value="" /> <value unit="/HPF" xsi:type="PQ" value="0" /> <referenceRange > <observationRange> <text /> </ observationRange> </referenceRange> </observation> </ component> <component> <observation moodCode="EVN" classCode="OBS"> <templateId root="10.29.840.1.540219.07.02.22.4.2" /> <id nullFlavor="NA" /> <code codeSystem="local" code="UHCST" displayName= "Hyaline Casts" /> <statusCode code="completed" /> < effectiveTime value="" /> <value unit="/LPF" xsi:type="PQ" value="4" /> <interpretationCode codeSystem="local" code="*" /> <referenceRange> <observationRange> <text>0-3</text> </observationRange> </referenceRange> </observation > </component> <component> <observation moodCode="EVN" classCode="OBS"> <templateId root="10.29.840.1.256712.07.02.22.4.2" /> <id nullFlavor="NA" /> <code codeSystem="local" code="URBC" displayName="RBC, Urine" /> <statusCode code="completed" /> < effectiveTime value="" /> <value unit="/HPF" xsi:type="PQ" value="2" /> <referenceRange> <observationRange> <text>0-2</text> </observationRange> </referenceRange> </observation> </component> <component> <observation moodCode="EVN" classCode="OBS"> <templateId root= "10.29.840.1.205517.07.02.22.4.2" /> <id nullFlavor="NA" /> < code codeSystem="local" code="UMUC" displayName="Urine Mucus" /> < statusCode code="completed" /> <effectiveTime value="" /> <value unit="NA" xsi:type="PQ" value="Present" /> < referenceRange> <observationRange> <text /> < /observationRange> </referenceRange> </observation> </ component> <component> <observation moodCode="EVN" classCode="OBS"> <templateId root="840.1.327954.07.02.224.2" /> <id nullFlavor="NA" /> <code codeSystem="local" code="UWBC" displayName= "WBC, Urine" /> <statusCode code="completed" /> < effectiveTime value="" /> <value unit="/HPF" xsi:type="PQ" value="0" /> <referenceRange> <observationRange> <text>0-4</text> </observationRange> </referenceRange> </observation> </component> </organizer> </entry> <entry> < organizer moodCode="EVN" classCode="BATTERY"> <templateId root= "840.1.754313.07.02.22.4.1" /> <id nullFlavor="NA" /> <code codeSystem="local" code="UNAR" displayName="Sodium Random Urine" /> < statusCode code="completed" /> <component> <observation moodCode= "EVN" classCode="OBS"> <templateId root="10.29.840.1.949646.07.02.22.4.2 " /> <id nullFlavor="NA" /> <code codeSystem="local" code= "UNAR" displayName="Sodium Random Urine" /> <statusCode code="completed " /> <effectiveTime value="587200770938" /> <value unit="mEq/L " xsi:type="PQ" value="101" /> <referenceRange> < observationRange> <text /> </observationRange> </referenceRange> </observation> </component> </organizer> </ entry> <entry> <organizer moodCode="EVN" classCode="BATTERY"> < templateId root="216.840.1.422759.10..22.4.1" /> <id nullFlavor="NA" /> <code codeSystem="local" code="UCRER" displayName="Creatinine Random Urine " /> <statusCode code="completed" /> <component> <observation moodCode="EVN" classCode="OBS"> <templateId root= "216.840.1.589682.10..22.4.2" /> <id nullFlavor="NA" /> < code codeSystem="local" code="UCRER" displayName="Creatinine Random Urine" /> <statusCode code="completed" /> <effectiveTime value= "185725491528" /> <value unit="mg/dL" xsi:type="PQ" value="80" /> <referenceRange> <observationRange> <text /> </observationRange> </referenceRange> </observation> </component> </organizer> </entry> <entry> <organizer moodCode="EVN" classCode="BATTERY"> <templateId root="216.840.1.619481.10..22.4.1" /> <id nullFlavor="NA" /> <code codeSystem="local" code="LACID" displayName="Lactic Acid Venous" /> <statusCode code="completed" /> < component> <observation moodCode="EVN" classCode="OBS"> < templateId root="10.29.840.1.077451.10.20.22.4.2" /> <id nullFlavor="NA " /> <code codeSystem="local" code="LACID" displayName="Lactic Acid Venous" /> <statusCode code="completed" /> <effectiveTime value="675532389965" /> <value unit="mEq/L" xsi:type="PQ" value="2.5" / > <interpretationCode codeSystem="local" code="*" /> < referenceRange> <observationRange> <text>0.5-2.0</text> </observationRange> </referenceRange> </observation > </component> </organizer> </entry> <entry> <organizer moodCode= "EVN" classCode="BATTERY"> <templateId root="2.16.840.1.586964.10.20.22.4.1 " /> <id nullFlavor="NA" /> <code codeSystem="local" code="TROP" displayName="Troponin" /> <statusCode code="completed" /> <component> <observation moodCode="EVN" classCode="OBS"> <templateId root= "2.16.840.1.058058.10.20.22.4.2" /> <id nullFlavor="NA" /> < code codeSystem="local" code="TROP" displayName="Troponin" /> < statusCode code="completed" /> <effectiveTime value="003256686781" /> <value unit="ng/mL" xsi:type="PQ" value="1.14" /> < interpretationCode codeSystem="local" code="" /> <referenceRange> <observationRange> <text><0.06</text> </ observationRange> </referenceRange> </observation> </ component> </organizer> </entry> <entry> <organizer moodCode="EVN" classCode="BATTERY"> <templateId root="840.1.788857.07.02.22.4.1" /> <id nullFlavor="NA" /> <code codeSystem="local" code="BMP" displayName ="Basic Metabolic Panel (BMP)" /> <statusCode code="completed" /> < component> <observation moodCode="EVN" classCode="OBS"> < templateId root="840.1.485268.07.02.22.4.2" /> <id nullFlavor="NA " /> <code codeSystem="local" code="AGAP" displayName="Anion Gap" /> <statusCode code="completed" /> <effectiveTime value= "" /> <value unit="mEq/L" xsi:type="PQ" value="10" /> <referenceRange> <observationRange> <text>3-20</ text> </observationRange> </referenceRange> </ observation> </component> <component> <observation moodCode= "EVN" classCode="OBS"> <templateId root="840.1.836282.07.02.22.4.2 " /> <id nullFlavor="NA" /> <code codeSystem="local" code="BUN " displayName="BUN" /> <statusCode code="completed" /> < effectiveTime value="" /> <value unit="mg/dL" xsi:type="PQ " value="31" /> <interpretationCode codeSystem="local" code="*" /> <referenceRange> <observationRange> <text>4-20</ text> </observationRange> </referenceRange> </ observation> </component> <component> <observation moodCode= "EVN" classCode="OBS"> <templateId root="10.29.840.1.894118.07.02.22.4.2 " /> <id nullFlavor="NA" /> <code codeSystem="local" code="CA " displayName="Calcium" /> <statusCode code="completed" /> < effectiveTime value="" /> <value unit="mg/dL" xsi:type="PQ " value="8.0" /> <interpretationCode codeSystem="local" code="*" /> <referenceRange> <observationRange> <text>8.6- 10.0</text> </observationRange> </referenceRange> </ observation> </component> <component> <observation moodCode= "EVN" classCode="OBS"> <templateId root="2.16.840.1.048236.07.02.224.2 " /> <id nullFlavor="NA" /> <code codeSystem="local" code="CL " displayName="Chloride" /> <statusCode code="completed" /> < effectiveTime value="" /> <value unit="mEq/L" xsi:type="PQ " value="105" /> <referenceRange> <observationRange> <text>99-109</text> </observationRange> </ referenceRange> </observation> </component> <component> <observation moodCode="EVN" classCode="OBS"> <templateId root= "2.16.840.1.422869.07.02.22.4.2" /> <id nullFlavor="NA" /> < code codeSystem="local" code="CO2" displayName="CO2" /> <statusCode code="completed" /> <effectiveTime value="" /> < value unit="mEq/L" xsi:type="PQ" value="17" /> <interpretationCode codeSystem="local" code="*" /> <referenceRange> < observationRange> <text>22-32</text> </observationRange > </referenceRange> </observation> </component> < component> <observation moodCode="EVN" classCode="OBS"> < templateId root="10.29.840.1.076335.10.4.2" /> <id nullFlavor="NA " /> <code codeSystem="local" code="CREAT" displayName="Creatinine" /> <statusCode code="completed" /> <effectiveTime value= "" /> <value unit="mg/dL" xsi:type="PQ" value="1.44" /> <interpretationCode codeSystem="local" code="*" /> < referenceRange> <observationRange> <text>0.64-1.27</text > </observationRange> </referenceRange> </observation > </component> <component> <observation moodCode="EVN" classCode="OBS"> <templateId root="10.29.840.1.938934.07.02.224.2" /> <id nullFlavor="NA" /> <code codeSystem="local" code="GLU" displayName="Glucose" /> <statusCode code="completed" /> < effectiveTime value="" /> <value unit="mg/dL" xsi:type="PQ " value="69" /> <interpretationCode codeSystem="local" code="*" /> <referenceRange> <observationRange> <text>70-100</ text> </observationRange> </referenceRange> </ observation> </component> <component> <observation moodCode= "EVN" classCode="OBS"> <templateId root="10.29.840.1.302361.07.02.22.4.2 " /> <id nullFlavor="NA" /> <code codeSystem="local" code="K" displayName="Potassium" /> <statusCode code="completed" /> < effectiveTime value="" /> <value unit="mEq/L" xsi:type="PQ " value="4.5" /> <referenceRange> <observationRange> <text>3.6-5.1</text> </observationRange> </ referenceRange> </observation> </component> <component> <observation moodCode="EVN" classCode="OBS"> <templateId root= "840.1.142291.07.02.22.4.2" /> <id nullFlavor="NA" /> < code codeSystem="local" code="NA" displayName="Sodium" /> <statusCode code="completed" /> <effectiveTime value="" /> < value unit="mEq/L" xsi:type="PQ" value="132" /> <interpretationCode codeSystem="local" code="*" /> <referenceRange> < observationRange> <text>136-144</text> </ observationRange> </referenceRange> </observation> </ component> </organizer> </entry> <entry> <organizer moodCode="EVN" classCode="BATTERY"> <templateId root="10.29.840.1.420007.07.02.22.4.1" /> <id nullFlavor="NA" /> <code codeSystem="local" code="GFR" displayName ="eGFR" /> <statusCode code="completed" /> <component> < observation moodCode="EVN" classCode="OBS"> <templateId root= "840.1.760829.07.02.22.4.2" /> <id nullFlavor="NA" /> < code codeSystem="local" code="GFR" displayName="eGFR" /> <statusCode code="completed" /> <effectiveTime value="" /> < value unit="mL/min" xsi:type="PQ" value="52" /> <interpretationCode codeSystem="local" code="*" /> <referenceRange> < observationRange> <text>>60</text> </observationRange > </referenceRange> </observation> </component> </ organizer> </entry> <entry> <organizer moodCode="EVN" classCode="BATTERY"> <templateId root="16.840.1.353787.10..4.1" /> <id nullFlavor= "NA" /> <code codeSystem="local" code="PCT" displayName="Procalcitonin" /> <statusCode code="completed" /> <component> <observation moodCode="EVN" classCode="OBS"> <templateId root= "216.840.1.867083.10..4.2" /> <id nullFlavor="NA" /> < code codeSystem="local" code="PCT" displayName="Procalcitonin" /> < statusCode code="completed" /> <effectiveTime value="448363064085" /> <value unit="ng/mL" xsi:type="PQ" value="0.17" /> < interpretationCode codeSystem="local" code="*" /> <referenceRange> <observationRange> <text>0.00-0.09</text> </ observationRange> </referenceRange> </observation> </ component> </organizer> </entry> <entry> <organizer moodCode="EVN" classCode="BATTERY"> <templateId root="10.29.840.1.894865.10.4.1" /> <id nullFlavor="NA" /> <code codeSystem="local" code="HCVRN" displayName="Hepatitis C RNA" /> <statusCode code="completed" /> < component> <observation moodCode="EVN" classCode="OBS"> < templateId root="840.1.228148.10.22.4.2" /> <id nullFlavor="NA " /> <code codeSystem="local" code="HCV10" displayName="HCV Log10" /> <statusCode code="completed" /> <effectiveTime value= "266524865208" /> <value unit="NA" xsi:type="PQ" value="7.2" /> <referenceRange> <observationRange> <text /> </observationRange> </referenceRange> </observation> </ component> <component> <observation moodCode="EVN" classCode="OBS"> <templateId root="840.1.074032.07.02.22.4.2" /> <id nullFlavor="NA" /> <code codeSystem="local" code="HCVR" displayName= "Hepatitis C viral RNA" /> <statusCode code="completed" /> < effectiveTime value="582013434273" /> <value unit="IU/mL" xsi:type="PQ " value="41767830" /> <referenceRange> <observationRange> <text /> </observationRange> </referenceRange> </observation> </component> </organizer> </entry> <entry> < organizer moodCode="EVN" classCode="BATTERY"> <templateId root= "840.1.822589.10.22.4.1" /> <id nullFlavor="NA" /> <code codeSystem="local" code="GLUN" displayName="Glucose NPT" /> <statusCode code="completed" /> <component> <observation moodCode="EVN" classCode="OBS"> <templateId root="840.1.849145.1022.4.2" /> <id nullFlavor="NA" /> <code codeSystem="local" code="GLUN" displayName="Glucose NPT" /> <statusCode code="completed" /> <effectiveTime value="415573286317" /> <value unit="mg/dL" xsi:type="PQ " value="46" /> <interpretationCode codeSystem="local" code="*" /> <referenceRange> <observationRange> <text>70-100</ text> </observationRange> </referenceRange> </ observation> </component> </organizer> </entry> <entry> <organizer moodCode="EVN" classCode="BATTERY"> <templateId root= "216.840.1.425025.10..22.4.1" /> <id nullFlavor="NA" /> <code codeSystem="local" code="GLUN" displayName="Glucose NPT" /> <statusCode code="completed" /> <component> <observation moodCode="EVN" classCode="OBS"> <templateId root="16.840.1.018227.10..22.4.2" /> <id nullFlavor="NA" /> <code codeSystem="local" code="GLUN" displayName="Glucose NPT" /> <statusCode code="completed" /> <effectiveTime value="003819453426" /> <value unit="mg/dL" xsi:type="PQ " value="47" /> <interpretationCode codeSystem="local" code="*" /> <referenceRange> <observationRange> <text>70-100</ text> </observationRange> </referenceRange> </ observation> </component> </organizer> </entry> <entry> <organizer moodCode="EVN" classCode="BATTERY"> <templateId root= "16.840.1.039751.10..4.1" /> <id nullFlavor="NA" /> <code codeSystem="local" code="GLUN" displayName="Glucose NPT" /> <statusCode code="completed" /> <component> <observation moodCode="EVN" classCode="OBS"> <templateId root="840.1.189313.07.02.224.2" /> <id nullFlavor="NA" /> <code codeSystem="local" code="GLUN" displayName="Glucose NPT" /> <statusCode code="completed" /> <effectiveTime value="" /> <value unit="mg/dL" xsi:type="PQ " value="122" /> <interpretationCode codeSystem="local" code="*" /> <referenceRange> <observationRange> <text>70-100< /text> </observationRange> </referenceRange> </ observation> </component> </organizer> </entry> <entry> <organizer moodCode="EVN" classCode="BATTERY"> <templateId root= "840.1.781568.07.02.224.1" /> <id nullFlavor="NA" /> <code codeSystem="local" code="CBCND" displayName="CBC With Platelet No Differential" /> <statusCode code="completed" /> <component> <observation moodCode="EVN" classCode="OBS"> <templateId root= "840.1.641688.07.02.22.4.2" /> <id nullFlavor="NA" /> < code codeSystem="local" code="HCT" displayName="HCT" /> <statusCode code="completed" /> <effectiveTime value="" /> < value unit="%" xsi:type="PQ" value="36.3" /> <interpretationCode codeSystem="local" code="*" /> <referenceRange> < observationRange> <text>42.0-52.0</text> </ observationRange> </referenceRange> </observation> </ component> <component> <observation moodCode="EVN" classCode="OBS"> <templateId root="16.840.1.733264.10.20.22.4.2" /> <id nullFlavor="NA" /> <code codeSystem="local" code="HGB" displayName="HGB " /> <statusCode code="completed" /> <effectiveTime value= "" /> <value unit="g/dL" xsi:type="PQ" value="11.9" /> <interpretationCode codeSystem="local" code="*" /> < referenceRange> <observationRange> <text>14.0-18.0</text > </observationRange> </referenceRange> </observation > </component> <component> <observation moodCode="EVN" classCode="OBS"> <templateId root="10.29.840.1.088614.07.02.22.4.2" /> <id nullFlavor="NA" /> <code codeSystem="local" code="MCH" displayName="MCH" /> <statusCode code="completed" /> < effectiveTime value="" /> <value unit="pg" xsi:type="PQ" value="29.4" /> <referenceRange> <observationRange> <text>27.0-32.0</text> </observationRange> </ referenceRange> </observation> </component> <component> <observation moodCode="EVN" classCode="OBS"> <templateId root= "10.29.840.1.648719.10..22.4.2" /> <id nullFlavor="NA" /> < code codeSystem="local" code="MCHC" displayName="MCHC" /> <statusCode code="completed" /> <effectiveTime value="" /> < value unit="g/dL" xsi:type="PQ" value="32.8" /> <referenceRange> <observationRange> <text>32.0-36.0</text> </ observationRange> </referenceRange> </observation> </ component> <component> <observation moodCode="EVN" classCode="OBS"> <templateId root="16.840.1.458386.10.20.22.4.2" /> <id nullFlavor="NA" /> <code codeSystem="local" code="MCV" displayName="MCV " /> <statusCode code="completed" /> <effectiveTime value= "" /> <value unit="fL" xsi:type="PQ" value="89.6" /> <referenceRange> <observationRange> <text>82.0-99.0< /text> </observationRange> </referenceRange> </ observation> </component> <component> <observation moodCode= "EVN" classCode="OBS"> <templateId root="16.840.1.988696.10.20.22.4.2 " /> <id nullFlavor="NA" /> <code codeSystem="local" code="MPV " displayName="MPV" /> <statusCode code="completed" /> < effectiveTime value="" /> <value unit="fL" xsi:type="PQ" value="11.4" /> <referenceRange> <observationRange> <text>9.4-12.3</text> </observationRange> </ referenceRange> </observation> </component> <component> <observation moodCode="EVN" classCode="OBS"> <templateId root= "10.29.840.1.302434.10.20.22.4.2" /> <id nullFlavor="NA" /> < code codeSystem="local" code="PLT" displayName="Platelet Count" /> < statusCode code="completed" /> <effectiveTime value="[id number]" /> <value unit="K/uL" xsi:type="PQ" value="97" /> < interpretationCode codeSystem="local" code="*" /> <referenceRange> <observationRange> <text>150-400</text> </ observationRange> </referenceRange> </observation> </ component> <component> <observation moodCode="EVN" classCode="OBS"> <templateId root="840.1.875564.10.2022.4.2" /> <id nullFlavor="NA" /> <code codeSystem="local" code="RBC" displayName="RBC " /> <statusCode code="completed" /> <effectiveTime value= "" /> <value unit="10*6/uL" xsi:type="PQ" value="4.05" /> <interpretationCode codeSystem="local" code="*" /> < referenceRange> <observationRange> <text>4.60-6.20</text > </observationRange> </referenceRange> </observation > </component> <component> <observation moodCode="EVN" classCode="OBS"> <templateId root="10.29.840.1.578699.10.20.22.4.2" /> <id nullFlavor="NA" /> <code codeSystem="local" code="RDW" displayName="RDW" /> <statusCode code="completed" /> < effectiveTime value="[id number]" /> <value unit="%" xsi:type="PQ " value="15.7" /> <interpretationCode codeSystem="local" code="*" /> <referenceRange> <observationRange> <text>11.5- 14.5</text> </observationRange> </referenceRange> </ observation> </component> <component> <observation moodCode= "EVN" classCode="OBS"> <templateId root="16.840.1.042198.10..22.4.2 " /> <id nullFlavor="NA" /> <code codeSystem="local" code= "WBCIR" displayName="WBC" /> <statusCode code="completed" /> < effectiveTime value="" /> <value unit="K/uL" xsi:type="PQ" value="6.8" /> <referenceRange> <observationRange> <text>4.8-10.8</text> </observationRange> </ referenceRange> </observation> </component> </organizer> </entry > <entry> <organizer moodCode="EVN" classCode="BATTERY"> <templateId root="10.29.840.1.300289...22.4.1" /> <id nullFlavor="NA" /> <code codeSystem="local" code="PTPTT" displayName="PTT/PT (INR)" /> <statusCode code="completed" /> <component> <observation moodCode="EVN" classCode="OBS"> <templateId root="16.840.1.361702.10..22.4.2" /> <id nullFlavor="NA" /> <code codeSystem="local" code="INR" displayName="INR" /> <statusCode code="completed" /> < effectiveTime value="" /> <value unit="NA" xsi:type="PQ" value="1.2" /> <referenceRange> <observationRange> <text>0.9-1.2</text> </observationRange> </ referenceRange> </observation> </component> </organizer> </entry > <entry> <organizer moodCode="EVN" classCode="BATTERY"> <templateId root="10.29.840.1.504800.10..4.1" /> <id nullFlavor="NA" /> <code codeSystem="local" code="GLUN" displayName="Glucose NPT" /> <statusCode code="completed" /> <component> <observation moodCode="EVN" classCode="OBS"> <templateId root="840.1.896820.07.02.22.4.2" /> <id nullFlavor="NA" /> <code codeSystem="local" code="GLUN" displayName="Glucose NPT" /> <statusCode code="completed" /> <effectiveTime value="[id number]" /> <value unit="mg/dL" xsi:type="PQ " value="105" /> <interpretationCode codeSystem="local" code="*" /> <referenceRange> <observationRange> <text>70-100< /text> </observationRange> </referenceRange> </ observation> </component> </organizer> </entry> <entry> <organizer moodCode="EVN" classCode="BATTERY"> <templateId root= "840.1.622017.07.02.22.4.1" /> <id nullFlavor="NA" /> <code codeSystem="local" code="TROP" displayName="Troponin" /> <statusCode code= "completed" /> <component> <observation moodCode="EVN" classCode= "OBS"> <templateId root="10.29.840.1.245555....4.2" /> < id nullFlavor="NA" /> <code codeSystem="local" code="TROP" displayName= "Troponin" /> <statusCode code="completed" /> <effectiveTime value="790144382960" /> <value unit="ng/mL" xsi:type="PQ" value="1.18" /> <interpretationCode codeSystem="local" code="" /> < referenceRange> <observationRange> <text><0.06</text > </observationRange> </referenceRange> </observation > </component> </organizer> </entry> <entry> <organizer moodCode= "EVN" classCode="BATTERY"> <templateId root="16.840.1.123392.07.02.22.4.1 " /> <id nullFlavor="NA" /> <code codeSystem="local" code="PTT" displayName="PTT" /> <statusCode code="completed" /> <component> <observation moodCode="EVN" classCode="OBS"> <templateId root= "16.840.1.290298...4.2" /> <id nullFlavor="NA" /> < code codeSystem="local" code="PTT" displayName="PTT" /> <statusCode code="completed" /> <effectiveTime value="781386857448" /> < value unit="seconds" xsi:type="PQ" value="86.5" /> <interpretationCode codeSystem="local" code="*" /> <referenceRange> < observationRange> <text>25.0-35.0</text> </ observationRange> </referenceRange> </observation> </ component> </organizer> </entry> <entry> <organizer moodCode="EVN" classCode="BATTERY"> <templateId root="16.840.1.694782.22.4.1" /> <id nullFlavor="NA" /> <code codeSystem="local" code="GLUN" displayName="Glucose NPT" /> <statusCode code="completed" /> < component> <observation moodCode="EVN" classCode="OBS"> < templateId root="10.29.840.1.496057.10.4.2" /> <id nullFlavor="NA " /> <code codeSystem="local" code="GLUN" displayName="Glucose NPT" / > <statusCode code="completed" /> <effectiveTime value= "417030172800" /> <value unit="mg/dL" xsi:type="PQ" value="102" /> <interpretationCode codeSystem="local" code="*" /> < referenceRange> <observationRange> <text>70-100</text> </observationRange> </referenceRange> </observation> </component> </organizer> </entry> <entry> <organizer moodCode= "EVN" classCode="BATTERY"> <templateId root="840.1.146149.07.02.22.4.1 " /> <id nullFlavor="NA" /> <code codeSystem="local" code="TROP" displayName="Troponin" /> <statusCode code="completed" /> <component> <observation moodCode="EVN" classCode="OBS"> <templateId root= "10.29.840.1.317256.10.4.2" /> <id nullFlavor="NA" /> < code codeSystem="local" code="TROP" displayName="Troponin" /> < statusCode code="completed" /> <effectiveTime value="926396300252" /> <value unit="ng/mL" xsi:type="PQ" value="1.04" /> < interpretationCode codeSystem="local" code="" /> <referenceRange> <observationRange> <text><0.06</text> </ observationRange> </referenceRange> </observation> </ component> </organizer> </entry> <entry> <organizer moodCode="EVN" classCode="BATTERY"> <templateId root="16.840.1.644928.10...4.1" /> <id nullFlavor="NA" /> <code codeSystem="local" code="LACID" displayName="Lactic Acid Venous" /> <statusCode code="completed" /> < component> <observation moodCode="EVN" classCode="OBS"> < templateId root="10.29.840.1.472663.07.02.22.4.2" /> <id nullFlavor="NA " /> <code codeSystem="local" code="LACID" displayName="Lactic Acid Venous" /> <statusCode code="completed" /> <effectiveTime value="065266043254" /> <value unit="mEq/L" xsi:type="PQ" value="1.5" / > <referenceRange> <observationRange> <text>0.5 -2.0</text> </observationRange> </referenceRange> </ observation> </component> </organizer> </entry> <entry> <organizer moodCode="EVN" classCode="BATTERY"> <templateId root= "10.29.840.1.329578...4.1" /> <id nullFlavor="NA" /> <code codeSystem="local" code="HEP4" displayName="Hepatitis Panel" /> < statusCode code="completed" /> <component> <observation moodCode= "EVN" classCode="OBS"> <templateId root="10.29.840.1.216324.10..22.4.2 " /> <id nullFlavor="NA" /> <code codeSystem="local" code= "HAABM" displayName="Hepatitis A Antibody IGM" /> <statusCode code= "completed" /> <effectiveTime value="" /> <value unit="" xsi:type="PQ" value="Negative" /> <referenceRange> < observationRange> <text /> </observationRange> </referenceRange> </observation> </component> <component> <observation moodCode="EVN" classCode="OBS"> <templateId root= "10.29.840.1.868335.10..4.2" /> <id nullFlavor="NA" /> < code codeSystem="local" code="HBSAG" displayName="Hepatitis B Surface Antigen" / > <statusCode code="completed" /> <effectiveTime value= "941799959015" /> <value unit="" xsi:type="PQ" value="Negative" /> <referenceRange> <observationRange> <text /> </observationRange> </referenceRange> </observation> </component> <component> <observation moodCode="EVN" classCode= "OBS"> <templateId root="10.29.840.1.195956.07.02.22.4.2" /> < id nullFlavor="NA" /> <code codeSystem="local" code="HBCM" displayName= "Hepatitis Core Ab IGM" /> <statusCode code="completed" /> < effectiveTime value="736414537124" /> <value unit="" xsi:type="PQ" value="Negative" /> <referenceRange> <observationRange> <text /> </observationRange> </referenceRange> </observation> </component> </organizer> </entry> <entry> < organizer moodCode="EVN" classCode="BATTERY"> <templateId root= "10.29.840.1.744704.07.02.22.4.1" /> <id nullFlavor="NA" /> <code codeSystem="local" code="CBCWD" displayName="CBC With Platelet and Differential " /> <statusCode code="completed" /> <component> <observation moodCode="EVN" classCode="OBS"> <templateId root= "10.29.840.1.331292.07.02.22.4.2" /> <id nullFlavor="NA" /> < code codeSystem="local" code="ABASR" displayName="Absolute Basophils" /> <statusCode code="completed" /> <effectiveTime value="" /> <value unit="10*3/uL" xsi:type="PQ" value="0.01" /> < referenceRange> <observationRange> <text>0.00-0.20</text > </observationRange> </referenceRange> </observation > </component> <component> <observation moodCode="EVN" classCode="OBS"> <templateId root="840.1.340888.07.02.224.2" /> <id nullFlavor="NA" /> <code codeSystem="local" code="AEOSR" displayName="Absolute Eosinophils" /> <statusCode code="completed" /> <effectiveTime value="" /> <value unit="10*3/uL" xsi:type="PQ" value="0.00" /> <referenceRange> < observationRange> <text>0.00-0.50</text> </ observationRange> </referenceRange> </observation> </ component> <component> <observation moodCode="EVN" classCode="OBS"> <templateId root="10.29.840.1.645753.07.02.22.4.2" /> <id nullFlavor="NA" /> <code codeSystem="local" code="ALYMR" displayName= "Absolute Lymphocytes" /> <statusCode code="completed" /> < effectiveTime value="" /> <value unit="10*3/uL" xsi:type= "PQ" value="0.76" /> <interpretationCode codeSystem="local" code="*" / > <referenceRange> <observationRange> <text> 0.80-3.30</text> </observationRange> </referenceRange> </observation> </component> <component> <observation moodCode="EVN" classCode="OBS"> <templateId root= "2.16.840.1.503509.10..4.2" /> <id nullFlavor="NA" /> < code codeSystem="local" code="AMONR" displayName="Absolute Monocytes" /> <statusCode code="completed" /> <effectiveTime value="" /> <value unit="10*3/uL" xsi:type="PQ" value="0.18" /> < interpretationCode codeSystem="local" code="*" /> <referenceRange> <observationRange> <text>0.30-1.00</text> </ observationRange> </referenceRange> </observation> </ component> <component> <observation moodCode="EVN" classCode="OBS"> <templateId root="216.840.1.694415.102022.4.2" /> <id nullFlavor="NA" /> <code codeSystem="local" code="ASEGR" displayName= "Absolute Neutrophils" /> <statusCode code="completed" /> < effectiveTime value="" /> <value unit="10*3/uL" xsi:type= "PQ" value="2.66" /> <referenceRange> <observationRange> <text>1.90-7.00</text> </observationRange> </ referenceRange> </observation> </component> <component> <observation moodCode="EVN" classCode="OBS"> <templateId root= "16.840.1.219665.102022.4.2" /> <id nullFlavor="NA" /> < code codeSystem="local" code="BASOR" displayName="Basophils" /> < statusCode code="completed" /> <effectiveTime value="" /> <value unit="%" xsi:type="PQ" value="0" /> <referenceRange > <observationRange> <text>0-2</text> </ observationRange> </referenceRange> </observation> </ component> <component> <observation moodCode="EVN" classCode="OBS"> <templateId root="16.840.1.015243.22.4.2" /> <id nullFlavor="NA" /> <code codeSystem="local" code="EOSR" displayName= "Eosinophils" /> <statusCode code="completed" /> < effectiveTime value="" /> <value unit="%" xsi:type="PQ " value="0" /> <referenceRange> <observationRange> <text>0-4</text> </observationRange> </referenceRange> </observation> </component> <component> <observation moodCode="EVN" classCode="OBS"> <templateId root= "10.29.840.1.580335.10.2022.4.2" /> <id nullFlavor="NA" /> < code codeSystem="local" code="HCT" displayName="HCT" /> <statusCode code="completed" /> <effectiveTime value="" /> < value unit="%" xsi:type="PQ" value="32.7" /> <interpretationCode codeSystem="local" code="*" /> <referenceRange> < observationRange> <text>42.0-52.0</text> </ observationRange> </referenceRange> </observation> </ component> <component> <observation moodCode="EVN" classCode="OBS"> <templateId root="2.16.840.1.318657.10..4.2" /> <id nullFlavor="NA" /> <code codeSystem="local" code="HGB" displayName="HGB " /> <statusCode code="completed" /> <effectiveTime value= "" /> <value unit="g/dL" xsi:type="PQ" value="10.7" /> <interpretationCode codeSystem="local" code="*" /> < referenceRange> <observationRange> <text>14.0-18.0</text > </observationRange> </referenceRange> </observation > </component> <component> <observation moodCode="EVN" classCode="OBS"> <templateId root="2.16.840.1.916403.07.02.22.4.2" /> <id nullFlavor="NA" /> <code codeSystem="local" code="IMGA" displayName="Immature Granulocytes" /> <statusCode code="completed" /> <effectiveTime value="" /> <value unit="%" xsi:type="PQ" value="1.4" /> <interpretationCode codeSystem="local" code="*" /> <referenceRange> <observationRange> <text>0.0-1.0</text> </observationRange> </referenceRange > </observation> </component> <component> <observation moodCode="EVN" classCode="OBS"> <templateId root= "216.840.1.429705.07.02.22.4.2" /> <id nullFlavor="NA" /> < code codeSystem="local" code="LYMPR" displayName="Lymphocytes" /> < statusCode code="completed" /> <effectiveTime value="" /> <value unit="%" xsi:type="PQ" value="21" /> < referenceRange> <observationRange> <text>20-46</text> </observationRange> </referenceRange> </observation> </component> <component> <observation moodCode="EVN" classCode= "OBS"> <templateId root="216.840.1.870366.07.02.22.4.2" /> < id nullFlavor="NA" /> <code codeSystem="local" code="MCH" displayName= "MCH" /> <statusCode code="completed" /> <effectiveTime value= "" /> <value unit="pg" xsi:type="PQ" value="28.8" /> <referenceRange> <observationRange> <text>27.0-32.0< /text> </observationRange> </referenceRange> </ observation> </component> <component> <observation moodCode= "EVN" classCode="OBS"> <templateId root="216.840.1.236151.07.02.22.4.2 " /> <id nullFlavor="NA" /> <code codeSystem="local" code= "MCHC" displayName="MCHC" /> <statusCode code="completed" /> < effectiveTime value="" /> <value unit="g/dL" xsi:type="PQ" value="32.7" /> <referenceRange> <observationRange> <text>32.0-36.0</text> </observationRange> </ referenceRange> </observation> </component> <component> <observation moodCode="EVN" classCode="OBS"> <templateId root= "216.840.1.936246.10.22.4.2" /> <id nullFlavor="NA" /> < code codeSystem="local" code="MCV" displayName="MCV" /> <statusCode code="completed" /> <effectiveTime value="" /> < value unit="fL" xsi:type="PQ" value="88.1" /> <referenceRange> <observationRange> <text>82.0-99.0</text> </ observationRange> </referenceRange> </observation> </ component> <component> <observation moodCode="EVN" classCode="OBS"> <templateId root="16.840.1.575108.10..4.2" /> <id nullFlavor="NA" /> <code codeSystem="local" code="MONOR" displayName= "Monocytes" /> <statusCode code="completed" /> <effectiveTime value="" /> <value unit="%" xsi:type="PQ" value="5" /> <referenceRange> <observationRange> <text>4-11 </text> </observationRange> </referenceRange> </ observation> </component> <component> <observation moodCode= "EVN" classCode="OBS"> <templateId root="16.840.1.179164.10.22.4.2 " /> <id nullFlavor="NA" /> <code codeSystem="local" code="MPV " displayName="MPV" /> <statusCode code="completed" /> < effectiveTime value="" /> <value unit="fL" xsi:type="PQ" value="11.4" /> <referenceRange> <observationRange> <text>9.4-12.3</text> </observationRange> </ referenceRange> </observation> </component> <component> <observation moodCode="EVN" classCode="OBS"> <templateId root= "10.29.840.1.300065.10.4.2" /> <id nullFlavor="NA" /> < code codeSystem="local" code="SEGR" displayName="Neutrophils" /> < statusCode code="completed" /> <effectiveTime value="" /> <value unit="%" xsi:type="PQ" value="73" /> < referenceRange> <observationRange> <text>51-75</text> </observationRange> </referenceRange> </observation> </component> <component> <observation moodCode="EVN" classCode= "OBS"> <templateId root="10.29.840.1.413997.07.02.22.4.2" /> < id nullFlavor="NA" /> <code codeSystem="local" code="NRBCA" displayName ="Nucleated RBC Automated" /> <statusCode code="completed" /> <effectiveTime value="" /> <value unit="/100WBC" xsi:type= "PQ" value="1.1" /> <referenceRange> <observationRange> <text /> </observationRange> </referenceRange> </observation> </component> <component> <observation moodCode="EVN" classCode="OBS"> <templateId root= "10.29.840.1.378637.07.02.22.4.2" /> <id nullFlavor="NA" /> < code codeSystem="local" code="PLT" displayName="Platelet Count" /> < statusCode code="completed" /> <effectiveTime value="" /> <value unit="K/uL" xsi:type="PQ" value="107" /> < interpretationCode codeSystem="local" code="*" /> <referenceRange> <observationRange> <text>150-400</text> </ observationRange> </referenceRange> </observation> </ component> <component> <observation moodCode="EVN" classCode="OBS"> <templateId root="216.840.1.000296.1020.22.4.2" /> <id nullFlavor="NA" /> <code codeSystem="local" code="RBC" displayName="RBC " /> <statusCode code="completed" /> <effectiveTime value= "" /> <value unit="10*6/uL" xsi:type="PQ" value="3.71" /> <interpretationCode codeSystem="local" code="*" /> < referenceRange> <observationRange> <text>4.60-6.20</text > </observationRange> </referenceRange> </observation > </component> <component> <observation moodCode="EVN" classCode="OBS"> <templateId root="216.840.1.839160.10..22.4.2" /> <id nullFlavor="NA" /> <code codeSystem="local" code="RDW" displayName="RDW" /> <statusCode code="completed" /> < effectiveTime value="" /> <value unit="%" xsi:type="PQ " value="15.7" /> <interpretationCode codeSystem="local" code="*" /> <referenceRange> <observationRange> <text>11.5- 14.5</text> </observationRange> </referenceRange> </ observation> </component> <component> <observation moodCode= "EVN" classCode="OBS"> <templateId root="2.16.840.1.164976.10..22.4.2 " /> <id nullFlavor="NA" /> <code codeSystem="local" code= "WBCIR" displayName="WBC" /> <statusCode code="completed" /> < effectiveTime value="[id number]" /> <value unit="K/uL" xsi:type="PQ" value="3.7" /> <interpretationCode codeSystem="local" code="*" /> <referenceRange> <observationRange> <text>4.8-10.8< /text> </observationRange> </referenceRange> </ observation> </component> </organizer> </entry> <entry> <organizer moodCode="EVN" classCode="BATTERY"> <templateId root= "216.840.1.739588.10..22.4.1" /> <id nullFlavor="NA" /> <code codeSystem="local" code="MG" displayName="Magnesium" /> <statusCode code= "completed" /> <component> <observation moodCode="EVN" classCode= "OBS"> <templateId root="16.840.1.650492.10.20.22.4.2" /> < id nullFlavor="NA" /> <code codeSystem="local" code="MG" displayName= "Magnesium" /> <statusCode code="completed" /> <effectiveTime value="988872719523" /> <value unit="mg/dL" xsi:type="PQ" value="1.9" / > <referenceRange> <observationRange> <text>1.8 -2.5</text> </observationRange> </referenceRange> </ observation> </component> </organizer> </entry> <entry> <organizer moodCode="EVN" classCode="BATTERY"> <templateId root= "10.29.840.1.542255.10.22.4.1" /> <id nullFlavor="NA" /> <code codeSystem="local" code="CMP" displayName="Comprehensive Metabolic Panel (CMP)" /> <statusCode code="completed" /> <component> <observation moodCode="EVN" classCode="OBS"> <templateId root= "10.29.840.1.694753.07.02.22.4.2" /> <id nullFlavor="NA" /> < code codeSystem="local" code="ALB" displayName="Albumin" /> < statusCode code="completed" /> <effectiveTime value="[id number]" /> <value unit="g/dL" xsi:type="PQ" value="2.8" /> < interpretationCode codeSystem="local" code="*" /> <referenceRange> <observationRange> <text>3.5-4.8</text> </ observationRange> </referenceRange> </observation> </ component> <component> <observation moodCode="EVN" classCode="OBS"> <templateId root="10.29.840.1.894607.07.02.22.4.2" /> <id nullFlavor="NA" /> <code codeSystem="local" code="ALP" displayName= "Alkaline Phosphatase" /> <statusCode code="completed" /> < effectiveTime value="373112749654" /> <value unit="U/L" xsi:type="PQ" value="96" /> <referenceRange> <observationRange> <text>26-104</text> </observationRange> </referenceRange > </observation> </component> <component> <observation moodCode="EVN" classCode="OBS"> <templateId root= "10.29.840.1.668225...4.2" /> <id nullFlavor="NA" /> < code codeSystem="local" code="ALT" displayName="ALT (SGPT)" /> < statusCode code="completed" /> <effectiveTime value="" /> <value unit="U/L" xsi:type="PQ" value="1858" /> < interpretationCode codeSystem="local" code="*" /> <referenceRange> <observationRange> <text>17-63</text> </ observationRange> </referenceRange> </observation> </ component> <component> <observation moodCode="EVN" classCode="OBS"> <templateId root="2.16.840.1.613691.07.02.22.4.2" /> <id nullFlavor="NA" /> <code codeSystem="local" code="AGAP" displayName= "Anion Gap" /> <statusCode code="completed" /> <effectiveTime value="" /> <value unit="mEq/L" xsi:type="PQ" value="7" /> <referenceRange> <observationRange> <text>3-20 </text> </observationRange> </referenceRange> </ observation> </component> <component> <observation moodCode= "EVN" classCode="OBS"> <templateId root="2.16.840.1.370898.07.02.22.4.2 " /> <id nullFlavor="NA" /> <code codeSystem="local" code= "BILIT" displayName="Bilirubin Total" /> <statusCode code="completed" / > <effectiveTime value="" /> <value unit="mg/dL" xsi:type="PQ" value="1.3" /> <interpretationCode codeSystem="local" code="*" /> <referenceRange> <observationRange> <text>0.2-1.2</text> </observationRange> </referenceRange > </observation> </component> <component> <observation moodCode="EVN" classCode="OBS"> <templateId root= "16.840.1.945152.10.4.2" /> <id nullFlavor="NA" /> < code codeSystem="local" code="BUN" displayName="BUN" /> <statusCode code="completed" /> <effectiveTime value="" /> < value unit="mg/dL" xsi:type="PQ" value="29" /> <interpretationCode codeSystem="local" code="*" /> <referenceRange> < observationRange> <text>4-20</text> </observationRange> </referenceRange> </observation> </component> < component> <observation moodCode="EVN" classCode="OBS"> < templateId root="10.29.840.1.071054.07.02.224.2" /> <id nullFlavor="NA " /> <code codeSystem="local" code="CA" displayName="Calcium" /> <statusCode code="completed" /> <effectiveTime value=" " /> <value unit="mg/dL" xsi:type="PQ" value="7.7" /> < interpretationCode codeSystem="local" code="*" /> <referenceRange> <observationRange> <text>8.6-10.0</text> </ observationRange> </referenceRange> </observation> </ component> <component> <observation moodCode="EVN" classCode="OBS"> <templateId root="16.840.1.189361.07.02.22.4.2" /> <id nullFlavor="NA" /> <code codeSystem="local" code="CL" displayName= "Chloride" /> <statusCode code="completed" /> <effectiveTime value="209873369432" /> <value unit="mEq/L" xsi:type="PQ" value="100" / > <referenceRange> <observationRange> <text>99- 109</text> </observationRange> </referenceRange> </ observation> </component> <component> <observation moodCode= "EVN" classCode="OBS"> <templateId root="216.840.1.473039.07.02.22.4.2 " /> <id nullFlavor="NA" /> <code codeSystem="local" code="CO2 " displayName="CO2" /> <statusCode code="completed" /> < effectiveTime value="024581146366" /> <value unit="mEq/L" xsi:type="PQ " value="20" /> <interpretationCode codeSystem="local" code="*" /> <referenceRange> <observationRange> <text>22-32</ text> </observationRange> </referenceRange> </ observation> </component> <component> <observation moodCode= "EVN" classCode="OBS"> <templateId root="2.16.840.1.899955.07.02.22.4.2 " /> <id nullFlavor="NA" /> <code codeSystem="local" code= "CREAT" displayName="Creatinine" /> <statusCode code="completed" /> <effectiveTime value="384023163847" /> <value unit="mg/dL" xsi: type="PQ" value="1.29" /> <interpretationCode codeSystem="local" code= "*" /> <referenceRange> <observationRange> < text>0.64-1.27</text> </observationRange> </referenceRange> </observation> </component> <component> <observation moodCode="EVN" classCode="OBS"> <templateId root= "216.840.1.077688.22.4.2" /> <id nullFlavor="NA" /> < code codeSystem="local" code="GLOB" displayName="Globulin" /> < statusCode code="completed" /> <effectiveTime value="" /> <value unit="g/dL" xsi:type="PQ" value="2.8" /> < referenceRange> <observationRange> <text>1.9-4.3</text> </observationRange> </referenceRange> </observation > </component> <component> <observation moodCode="EVN" classCode="OBS"> <templateId root="10.29.840.1.633562.07.02.22.4.2" /> <id nullFlavor="NA" /> <code codeSystem="local" code="GLU" displayName="Glucose" /> <statusCode code="completed" /> < effectiveTime value="" /> <value unit="mg/dL" xsi:type="PQ " value="345" /> <interpretationCode codeSystem="local" code="*" /> <referenceRange> <observationRange> <text>70-100< /text> </observationRange> </referenceRange> </ observation> </component> <component> <observation moodCode= "EVN" classCode="OBS"> <templateId root="10.29.840.1.122182.07.02.22.4.2 " /> <id nullFlavor="NA" /> <code codeSystem="local" code="K" displayName="Potassium" /> <statusCode code="completed" /> < effectiveTime value="" /> <value unit="mEq/L" xsi:type="PQ " value="4.2" /> <referenceRange> <observationRange> <text>3.6-5.1</text> </observationRange> </ referenceRange> </observation> </component> <component> <observation moodCode="EVN" classCode="OBS"> <templateId root= "10.29.840.1.387840.10.4.2" /> <id nullFlavor="NA" /> < code codeSystem="local" code="TP" displayName="Protein" /> <statusCode code="completed" /> <effectiveTime value="" /> < value unit="g/dL" xsi:type="PQ" value="5.6" /> <interpretationCode codeSystem="local" code="*" /> <referenceRange> < observationRange> <text>6.1-7.9</text> </ observationRange> </referenceRange> </observation> </ component> <component> <observation moodCode="EVN" classCode="OBS"> <templateId root="10.29.840.1.065001.07.02.22.4.2" /> <id nullFlavor="NA" /> <code codeSystem="local" code="NA" displayName= "Sodium" /> <statusCode code="completed" /> <effectiveTime value="530518625706" /> <value unit="mEq/L" xsi:type="PQ" value="127" / > <interpretationCode codeSystem="local" code="*" /> < referenceRange> <observationRange> <text>136-144</text> </observationRange> </referenceRange> </observation > </component> </organizer> </entry> <entry> <organizer moodCode= "EVN" classCode="BATTERY"> <templateId root="10.29.840.1.277814.10..4.1 " /> <id nullFlavor="NA" /> <code codeSystem="local" code="GFR" displayName="eGFR" /> <statusCode code="completed" /> <component> <observation moodCode="EVN" classCode="OBS"> <templateId root= "216.840.1.938755.10..4.2" /> <id nullFlavor="NA" /> < code codeSystem="local" code="GFR" displayName="eGFR" /> <statusCode code="completed" /> <effectiveTime value="218499786054" /> < value unit="mL/min" xsi:type="PQ" value="59" /> <interpretationCode codeSystem="local" code="*" /> <referenceRange> < observationRange> <text>>60</text> </observationRange > </referenceRange> </observation> </component> </ organizer> </entry> <entry> <organizer moodCode="EVN" classCode="BATTERY"> <templateId root="216.840.1.397164.10..22.4.1" /> <id nullFlavor= "NA" /> <code codeSystem="local" code="PCT" displayName="Procalcitonin" /> <statusCode code="completed" /> <component> <observation moodCode="EVN" classCode="OBS"> <templateId root= "2.16.840.1.435644.10..22.4.2" /> <id nullFlavor="NA" /> < code codeSystem="local" code="PCT" displayName="Procalcitonin" /> < statusCode code="completed" /> <effectiveTime value="461810647377" /> <value unit="ng/mL" xsi:type="PQ" value="0.21" /> < interpretationCode codeSystem="local" code="*" /> <referenceRange> <observationRange> <text>0.00-0.09</text> </ observationRange> </referenceRange> </observation> </ component> </organizer> </entry> <entry> <organizer moodCode="EVN" classCode="BATTERY"> <templateId root="10.29.840.1.153237.07.02.22.4.1" /> <id nullFlavor="NA" /> <code codeSystem="local" code="ACETM" displayName="Acetaminophen" /> <statusCode code="completed" /> < component> <observation moodCode="EVN" classCode="OBS"> < templateId root="840.1.407242.07.02.224.2" /> <id nullFlavor="NA " /> <code codeSystem="local" code="ACETM" displayName="Acetaminophen" /> <statusCode code="completed" /> <effectiveTime value= "670470504222" /> <value unit="mcg/mL" xsi:type="PQ" value="<10" /> <referenceRange> <observationRange> <text>10- 30</text> </observationRange> </referenceRange> </ observation> </component> </organizer> </entry> <entry> <organizer moodCode="EVN" classCode="BATTERY"> <templateId root= "840.1.162275.07.02.22.4.1" /> <id nullFlavor="NA" /> <code codeSystem="local" code="GLUN" displayName="Glucose NPT" /> <statusCode code="completed" /> <component> <observation moodCode="EVN" classCode="OBS"> <templateId root="10.29.840.1.537240.07.02.22.4.2" /> <id nullFlavor="NA" /> <code codeSystem="local" code="GLUN" displayName="Glucose NPT" /> <statusCode code="completed" /> <effectiveTime value="552903471246" /> <value unit="mg/dL" xsi:type="PQ " value="105" /> <interpretationCode codeSystem="local" code="*" /> <referenceRange> <observationRange> <text>70-100< /text> </observationRange> </referenceRange> </ observation> </component> </organizer> </entry> <entry> <organizer moodCode="EVN" classCode="BATTERY"> <templateId root= "16.840.1.228095.10..22.4.1" /> <id nullFlavor="NA" /> <code codeSystem="local" code="PT" displayName="Protime (INR)" /> <statusCode code="completed" /> <component> <observation moodCode="EVN" classCode="OBS"> <templateId root="16.840.1.625250.10...4.2" /> <id nullFlavor="NA" /> <code codeSystem="local" code="INR" displayName="INR" /> <statusCode code="completed" /> < effectiveTime value="983550248268" /> <value unit="NA" xsi:type="PQ" value="1.3" /> <interpretationCode codeSystem="local" code="*" /> <referenceRange> <observationRange> <text>0.9-1.2</ text> </observationRange> </referenceRange> </ observation> </component> </organizer> </entry> <entry> <organizer moodCode="EVN" classCode="BATTERY"> <templateId root= "16.840.1.473422.10..22.4.1" /> <id nullFlavor="NA" /> <code codeSystem="local" code="PTT" displayName="PTT" /> <statusCode code= "completed" /> <component> <observation moodCode="EVN" classCode= "OBS"> <templateId root="216.840.1.952943.10..22.4.2" /> < id nullFlavor="NA" /> <code codeSystem="local" code="PTT" displayName= "PTT" /> <statusCode code="completed" /> <effectiveTime value= "126440198091" /> <value unit="seconds" xsi:type="PQ" value="98.6" /> <interpretationCode codeSystem="local" code="*" /> < referenceRange> <observationRange> <text>25.0-35.0</text > </observationRange> </referenceRange> </observation > </component> </organizer> </entry> <entry> <organizer moodCode= "EVN" classCode="BATTERY"> <templateId root="216.840.1.084768.10..22.4.1 " /> <id nullFlavor="NA" /> <code codeSystem="local" code="TROP" displayName="Troponin" /> <statusCode code="completed" /> <component> <observation moodCode="EVN" classCode="OBS"> <templateId root= "2.16.840.1.651910.10..22.4.2" /> <id nullFlavor="NA" /> < code codeSystem="local" code="TROP" displayName="Troponin" /> < statusCode code="completed" /> <effectiveTime value="509113055788" /> <value unit="ng/mL" xsi:type="PQ" value="1.49" /> < interpretationCode codeSystem="local" code="" /> <referenceRange> <observationRange> <text><0.06</text> </ observationRange> </referenceRange> </observation> </ component> </organizer> </entry> <entry> <organizer moodCode="EVN" classCode="BATTERY"> <templateId root="840.1.329028.07.02.22.4.1" /> <id nullFlavor="NA" /> <code codeSystem="local" code="GLUN" displayName="Glucose NPT" /> <statusCode code="completed" /> < component> <observation moodCode="EVN" classCode="OBS"> < templateId root="840.1.498443.07.02.22.4.2" /> <id nullFlavor="NA " /> <code codeSystem="local" code="GLUN" displayName="Glucose NPT" / > <statusCode code="completed" /> <effectiveTime value= "197706281906" /> <value unit="mg/dL" xsi:type="PQ" value="289" /> <interpretationCode codeSystem="local" code="*" /> < referenceRange> <observationRange> <text>70-100</text> </observationRange> </referenceRange> </observation> </component> </organizer> </entry> <entry> <organizer moodCode= "EVN" classCode="BATTERY"> <templateId root="840.1.187688.07.02.22.4.1 " /> <id nullFlavor="NA" /> <code codeSystem="local" code="UA" displayName="Urinalysis with reflex microscopic" /> <statusCode code= "completed" /> <component> <observation moodCode="EVN" classCode= "OBS"> <templateId root="840.1.685607.07.02.22.4.2" /> < id nullFlavor="NA" /> <code codeSystem="local" code="UAPP" displayName= "Appearance" /> <statusCode code="completed" /> < effectiveTime value="" /> <value unit="NA" xsi:type="PQ" value="Sl Cloudy" /> <referenceRange> <observationRange> <text /> </observationRange> </referenceRange> </observation> </component> <component> <observation moodCode="EVN" classCode="OBS"> <templateId root= "16.840.1.537458.07.02.22.4.2" /> <id nullFlavor="NA" /> < code codeSystem="local" code="UBIL" displayName="Bilirubin" /> < statusCode code="completed" /> <effectiveTime value="" /> <value unit="NA" xsi:type="PQ" value="Negative" /> < referenceRange> <observationRange> <text>Negative</text > </observationRange> </referenceRange> </observation > </component> <component> <observation moodCode="EVN" classCode="OBS"> <templateId root="10.29.840.1.252359.07.02.22.4.2" /> <id nullFlavor="NA" /> <code codeSystem="local" code="UBLD" displayName="Blood" /> <statusCode code="completed" /> < effectiveTime value="" /> <value unit="NA" xsi:type="PQ" value="Pos 1+" /> <interpretationCode codeSystem="local" code="*" /> <referenceRange> <observationRange> <text> Negative</text> </observationRange> </referenceRange> </observation> </component> <component> <observation moodCode ="EVN" classCode="OBS"> <templateId root= "10.29.840.1.962943.07.02.22.4.2" /> <id nullFlavor="NA" /> < code codeSystem="local" code="UCOLR" displayName="Color" /> < statusCode code="completed" /> <effectiveTime value="" /> <value unit="NA" xsi:type="PQ" value="Yellow" /> < referenceRange> <observationRange> <text /> < /observationRange> </referenceRange> </observation> </ component> <component> <observation moodCode="EVN" classCode="OBS"> <templateId root="10.29.840.1.789092.22.4.2" /> <id nullFlavor="NA" /> <code codeSystem="local" code="UGLU" displayName= "Glucose, Urine" /> <statusCode code="completed" /> < effectiveTime value="" /> <value unit="" xsi:type="PQ" value="Negative" /> <referenceRange> <observationRange> <text>Negative</text> </observationRange> </ referenceRange> </observation> </component> <component> <observation moodCode="EVN" classCode="OBS"> <templateId root= "10.29.840.1.542273.22.4.2" /> <id nullFlavor="NA" /> < code codeSystem="local" code="UKET" displayName="Ketones" /> < statusCode code="completed" /> <effectiveTime value="" /> <value unit="" xsi:type="PQ" value="Negative" /> < referenceRange> <observationRange> <text>Negative</text > </observationRange> </referenceRange> </observation > </component> <component> <observation moodCode="EVN" classCode="OBS"> <templateId root="10.29.840.1.268428.07.02.22.4.2" /> <id nullFlavor="NA" /> <code codeSystem="local" code="ULEU" displayName="Leukocyte Esterase" /> <statusCode code="completed" /> <effectiveTime value="" /> <value unit="NA" xsi:type ="PQ" value="Negative" /> <referenceRange> <observationRange > <text>Negative</text> </observationRange> </ referenceRange> </observation> </component> <component> <observation moodCode="EVN" classCode="OBS"> <templateId root= "216.840.1.445025.10...4.2" /> <id nullFlavor="NA" /> < code codeSystem="local" code="UNIT" displayName="Nitrites" /> < statusCode code="completed" /> <effectiveTime value="" /> <value unit="NA" xsi:type="PQ" value="Negative" /> < referenceRange> <observationRange> <text>Negative</text > </observationRange> </referenceRange> </observation > </component> <component> <observation moodCode="EVN" classCode="OBS"> <templateId root="216.840.1.011897.10..22.4.2" /> <id nullFlavor="NA" /> <code codeSystem="local" code="UPH" displayName="pH" /> <statusCode code="completed" /> < effectiveTime value="" /> <value unit="NA" xsi:type="PQ" value="5.0" /> <referenceRange> <observationRange> <text>5.0-8.0</text> </observationRange> </ referenceRange> </observation> </component> <component> <observation moodCode="EVN" classCode="OBS"> <templateId root= "216.840.1.285917.10..22.4.2" /> <id nullFlavor="NA" /> < code codeSystem="local" code="UPRO" displayName="Protein" /> < statusCode code="completed" /> <effectiveTime value="" /> <value unit="NA" xsi:type="PQ" value="Pos 1+" /> < interpretationCode codeSystem="local" code="*" /> <referenceRange> <observationRange> <text>Negative</text> </ observationRange> </referenceRange> </observation> </ component> <component> <observation moodCode="EVN" classCode="OBS"> <templateId root="16.840.1.358185...4.2" /> <id nullFlavor="NA" /> <code codeSystem="local" code="USPG" displayName= "Specific Casmalia" /> <statusCode code="completed" /> < effectiveTime value="" /> <value unit="NA" xsi:type="PQ" value="1.010" /> <referenceRange> <observationRange> <text>1.003-1.030</text> </observationRange> </ referenceRange> </observation> </component> <component> <observation moodCode="EVN" classCode="OBS"> <templateId root= "16.840.1.722261.10..4.2" /> <id nullFlavor="NA" /> < code codeSystem="local" code="UTYP" displayName="UA Collection type" /> <statusCode code="completed" /> <effectiveTime value="" / > <value unit="NA" xsi:type="PQ" value="Clean Catch" /> < referenceRange> <observationRange> <text /> < /observationRange> </referenceRange> </observation> </ component> <component> <observation moodCode="EVN" classCode="OBS"> <templateId root="16.840.1.902954.07.02.22.4.2" /> <id nullFlavor="NA" /> <code codeSystem="local" code="UURO" displayName= "Urobilinogen" /> <statusCode code="completed" /> < effectiveTime value="" /> <value unit="mg/dL" xsi:type="PQ " value="Negative" /> <referenceRange> <observationRange> <text><1.0</text> </observationRange> </ referenceRange> </observation> </component> </organizer> </entry > <entry> <organizer moodCode="EVN" classCode="BATTERY"> <templateId root="16.840.1.849520.10.4.1" /> <id nullFlavor="NA" /> <code codeSystem="local" code="UMIC" displayName="Urine Microscopic" /> < statusCode code="completed" /> <component> <observation moodCode= "EVN" classCode="OBS"> <templateId root="16.840.1.657239.10..4.2 " /> <id nullFlavor="NA" /> <code codeSystem="local" code= "UBAC" displayName="Bacteria" /> <statusCode code="completed" /> <effectiveTime value="" /> <value unit="NA" xsi:type= "PQ" value="Rare" /> <referenceRange> <observationRange> <text /> </observationRange> </referenceRange> </observation> </component> <component> <observation moodCode="EVN" classCode="OBS"> <templateId root= "2.16.840.1.022856.10..4.2" /> <id nullFlavor="NA" /> < code codeSystem="local" code="UEPI" displayName="Epithelial Cells" /> < statusCode code="completed" /> <effectiveTime value="" /> <value unit="/HPF" xsi:type="PQ" value="0" /> <referenceRange > <observationRange> <text /> </ observationRange> </referenceRange> </observation> </ component> <component> <observation moodCode="EVN" classCode="OBS"> <templateId root="216.840.1.916259.07.02.22.4.2" /> <id nullFlavor="NA" /> <code codeSystem="local" code="UHCST" displayName= "Hyaline Casts" /> <statusCode code="completed" /> < effectiveTime value="" /> <value unit="/LPF" xsi:type="PQ" value="1" /> <referenceRange> <observationRange> <text>0-3</text> </observationRange> </referenceRange> </observation> </component> <component> <observation moodCode="EVN" classCode="OBS"> <templateId root= "216.840.1.100783.07.02.22.4.2" /> <id nullFlavor="NA" /> < code codeSystem="local" code="URBC" displayName="RBC, Urine" /> < statusCode code="completed" /> <effectiveTime value="" /> <value unit="/HPF" xsi:type="PQ" value="0" /> <referenceRange > <observationRange> <text>0-2</text> </ observationRange> </referenceRange> </observation> </ component> <component> <observation moodCode="EVN" classCode="OBS"> <templateId root="840.1.086986.07.02.22.4.2" /> <id nullFlavor="NA" /> <code codeSystem="local" code="UMUC" displayName= "Urine Mucus" /> <statusCode code="completed" /> < effectiveTime value="" /> <value unit="NA" xsi:type="PQ" value="Present" /> <referenceRange> <observationRange> <text /> </observationRange> </referenceRange> </observation> </component> <component> <observation moodCode="EVN" classCode="OBS"> <templateId root= "840.1.167089.07.02.22.4.2" /> <id nullFlavor="NA" /> < code codeSystem="local" code="UWBC" displayName="WBC, Urine" /> < statusCode code="completed" /> <effectiveTime value="" /> <value unit="/HPF" xsi:type="PQ" value="0" /> <referenceRange > <observationRange> <text>0-4</text> </ observationRange> </referenceRange> </observation> </ component> </organizer> </entry> <entry> <organizer moodCode="EVN" classCode="BATTERY"> <templateId root="10.29.840.1.181141.07.02.22.4.1" /> <id nullFlavor="NA" /> <code codeSystem="local" code="ACET" displayName="Acetone" /> <statusCode code="completed" /> <component> <observation moodCode="EVN" classCode="OBS"> <templateId root= "10.29.840.1.159074.22.4.2" /> <id nullFlavor="NA" /> < code codeSystem="local" code="ACET" displayName="Acetone" /> < statusCode code="completed" /> <effectiveTime value="059619481214" /> <value unit="mg/dL" xsi:type="PQ" value="Negative" /> < referenceRange> <observationRange> <text>Negative</text > </observationRange> </referenceRange> </observation > </component> </organizer> </entry> <entry> <organizer moodCode= "EVN" classCode="BATTERY"> <templateId root="216.840.1.107345.10...4.1 " /> <id nullFlavor="NA" /> <code codeSystem="local" code="CORTA" displayName="Cortisol AM" /> <statusCode code="completed" /> < component> <observation moodCode="EVN" classCode="OBS"> < templateId root="16.840.1.754532.10..22.4.2" /> <id nullFlavor="NA " /> <code codeSystem="local" code="CORTA" displayName="Cortisol AM" / > <statusCode code="completed" /> <effectiveTime value= "878576100899" /> <value unit="ug/dL" xsi:type="PQ" value="8" /> <referenceRange> <observationRange> <text>7-18</text > </observationRange> </referenceRange> </observation > </component> </organizer> </entry> <entry> <organizer moodCode= "EVN" classCode="BATTERY"> <templateId root="16.840.1.142515.10...4.1 " /> <id nullFlavor="NA" /> <code codeSystem="local" code="INS" displayName="Insulin" /> <statusCode code="completed" /> <component> <observation moodCode="EVN" classCode="OBS"> <templateId root= "10.29.840.1.339973.10.4.2" /> <id nullFlavor="NA" /> < code codeSystem="local" code="INS" displayName="Insulin" /> < statusCode code="completed" /> <effectiveTime value="153123008452" /> <value unit="uIU/mL" xsi:type="PQ" value="89" /> < interpretationCode codeSystem="local" code="*" /> <referenceRange> <observationRange> <text>2-23</text> </ observationRange> </referenceRange> </observation> </ component> </organizer> </entry> <entry> <organizer moodCode="EVN" classCode="BATTERY"> <templateId root="10.29.840.1.586303.10..22.4.1" /> <id nullFlavor="NA" /> <code codeSystem="local" code="TROP" displayName="Troponin" /> <statusCode code="completed" /> <component> <observation moodCode="EVN" classCode="OBS"> <templateId root= "16.840.1.782778.10..22.4.2" /> <id nullFlavor="NA" /> < code codeSystem="local" code="TROP" displayName="Troponin" /> < statusCode code="completed" /> <effectiveTime value="923111976772" /> <value unit="ng/mL" xsi:type="PQ" value="2.07" /> < interpretationCode codeSystem="local" code="" /> <referenceRange> <observationRange> <text><0.06</text> </ observationRange> </referenceRange> </observation> </ component> </organizer> </entry> <entry> <organizer moodCode="EVN" classCode="BATTERY"> <templateId root="216.840.1.726033.10...4.1" /> <id nullFlavor="NA" /> <code codeSystem="local" code="LIVER" displayName="Hepatic Function Panel" /> <statusCode code="completed" /> <component> <observation moodCode="EVN" classCode="OBS"> < templateId root="216.840.1.735789.10...4.2" /> <id nullFlavor="NA " /> <code codeSystem="local" code="ALB" displayName="Albumin" /> <statusCode code="completed" /> <effectiveTime value="402981645462 " /> <value unit="g/dL" xsi:type="PQ" value="2.9" /> < interpretationCode codeSystem="local" code="*" /> <referenceRange> <observationRange> <text>3.5-4.8</text> </ observationRange> </referenceRange> </observation> </ component> <component> <observation moodCode="EVN" classCode="OBS"> <templateId root="216.840.1.199133....4.2" /> <id nullFlavor="NA" /> <code codeSystem="local" code="ALP" displayName= "Alkaline Phosphatase" /> <statusCode code="completed" /> < effectiveTime value="" /> <value unit="U/L" xsi:type="PQ" value="99" /> <referenceRange> <observationRange> <text>26-104</text> </observationRange> </referenceRange > </observation> </component> <component> <observation moodCode="EVN" classCode="OBS"> <templateId root= "10.29.840.1.405695.10...4.2" /> <id nullFlavor="NA" /> < code codeSystem="local" code="ALT" displayName="ALT (SGPT)" /> < statusCode code="completed" /> <effectiveTime value="" /> <value unit="U/L" xsi:type="PQ" value="1721" /> < interpretationCode codeSystem="local" code="*" /> <referenceRange> <observationRange> <text>17-63</text> </ observationRange> </referenceRange> </observation> </ component> <component> <observation moodCode="EVN" classCode="OBS"> <templateId root="10.29.840.1.350171.07.02.22.4.2" /> <id nullFlavor="NA" /> <code codeSystem="local" code="BILID" displayName= "Bilirubin Direct" /> <statusCode code="completed" /> < effectiveTime value="" /> <value unit="mg/dL" xsi:type="PQ " value="0.6" /> <interpretationCode codeSystem="local" code="*" /> <referenceRange> <observationRange> <text>0.0-0.2 </text> </observationRange> </referenceRange> </ observation> </component> <component> <observation moodCode= "EVN" classCode="OBS"> <templateId root="10.29.840.1.962905.07.02.22.4.2 " /> <id nullFlavor="NA" /> <code codeSystem="local" code= "BILII" displayName="Bilirubin Indirect" /> <statusCode code="completed " /> <effectiveTime value="" /> <value unit="mg/dL " xsi:type="PQ" value="0.6" /> <referenceRange> < observationRange> <text>0.0-1.0</text> </ observationRange> </referenceRange> </observation> </ component> <component> <observation moodCode="EVN" classCode="OBS"> <templateId root="216.840.1.127956.10..4.2" /> <id nullFlavor="NA" /> <code codeSystem="local" code="BILIT" displayName= "Bilirubin Total" /> <statusCode code="completed" /> < effectiveTime value="481112655078" /> <value unit="mg/dL" xsi:type="PQ " value="1.2" /> <referenceRange> <observationRange> <text>0.2-1.2</text> </observationRange> </ referenceRange> </observation> </component> <component> <observation moodCode="EVN" classCode="OBS"> <templateId root= "16.840.1.901132.10..4.2" /> <id nullFlavor="NA" /> < code codeSystem="local" code="TP" displayName="Protein" /> <statusCode code="completed" /> <effectiveTime value="994485614633" /> < value unit="g/dL" xsi:type="PQ" value="6.0" /> <interpretationCode codeSystem="local" code="*" /> <referenceRange> < observationRange> <text>6.1-7.9</text> </ observationRange> </referenceRange> </observation> </ component> </organizer> </entry> <entry> <organizer moodCode="EVN" classCode="BATTERY"> <templateId root="16.840.1.952128.07.02.22.4.1" /> <id nullFlavor="NA" /> <code codeSystem="local" code="Z2064" displayName="Beta-Hydroxybutyrate, Serum" /> <statusCode code="completed" / > <component> <observation moodCode="EVN" classCode="OBS"> <templateId root="16.840.1.770253.07.02.22.4.2" /> <id nullFlavor="NA " /> <code codeSystem="local" code="Z2064" displayName="Beta- Hydroxybutyrate, Serum" /> <statusCode code="completed" /> < effectiveTime value="245986726098" /> <value unit="mmol/L" xsi:type="PQ " value="0.1" /> <referenceRange> <observationRange> <text><0.4</text> </observationRange> </ referenceRange> </observation> </component> </organizer> </entry > <entry> <organizer moodCode="EVN" classCode="BATTERY"> <templateId root="10.29.840.1.116040.07.02.224.1" /> <id nullFlavor="NA" /> <code codeSystem="local" code="Z0249" displayName="Growth Hormone" /> < statusCode code="completed" /> <component> <observation moodCode= "EVN" classCode="OBS"> <templateId root="16.840.1.772822.07.02.22.4.2 " /> <id nullFlavor="NA" /> <code codeSystem="local" code= "Z0249" displayName="Growth Hormone" /> <statusCode code="completed" / > <effectiveTime value="871219671512" /> <value unit="ng/mL" xsi:type="PQ" value="0.36" /> <referenceRange> < observationRange> <text /> </observationRange> </referenceRange> </observation> </component> </organizer> </ entry> <entry> <organizer moodCode="EVN" classCode="BATTERY"> < templateId root="840.1.180318.22.4.1" /> <id nullFlavor="NA" /> <code codeSystem="local" code="GLUN" displayName="Glucose NPT" /> < statusCode code="completed" /> <component> <observation moodCode= "EVN" classCode="OBS"> <templateId root="840.1.452808.07.02.22.4.2 " /> <id nullFlavor="NA" /> <code codeSystem="local" code= "GLUN" displayName="Glucose NPT" /> <statusCode code="completed" /> <effectiveTime value="906513836888" /> <value unit="mg/dL" xsi: type="PQ" value="122" /> <interpretationCode codeSystem="local" code="* " /> <referenceRange> <observationRange> <text> 70-100</text> </observationRange> </referenceRange> < /observation> </component> </organizer> </entry> <entry> < organizer moodCode="EVN" classCode="BATTERY"> <templateId root= "840.1.256731.07.02.22.4.1" /> <id nullFlavor="NA" /> <code codeSystem="local" code="GLUN" displayName="Glucose NPT" /> <statusCode code="completed" /> <component> <observation moodCode="EVN" classCode="OBS"> <templateId root="840.1.217094.22.4.2" /> <id nullFlavor="NA" /> <code codeSystem="local" code="GLUN" displayName="Glucose NPT" /> <statusCode code="completed" /> <effectiveTime value="647871599791" /> <value unit="mg/dL" xsi:type="PQ " value="103" /> <interpretationCode codeSystem="local" code="*" /> <referenceRange> <observationRange> <text>70-100< /text> </observationRange> </referenceRange> </ observation> </component> </organizer> </entry> <entry> <organizer moodCode="EVN" classCode="BATTERY"> <templateId root= "10.29.840.1.748418.22.4.1" /> <id nullFlavor="NA" /> <code codeSystem="local" code="TROP" displayName="Troponin" /> <statusCode code= "completed" /> <component> <observation moodCode="EVN" classCode= "OBS"> <templateId root="16.840.1.705069.10..22.4.2" /> < id nullFlavor="NA" /> <code codeSystem="local" code="TROP" displayName= "Troponin" /> <statusCode code="completed" /> <effectiveTime value="809471053375" /> <value unit="ng/mL" xsi:type="PQ" value="3.52" /> <interpretationCode codeSystem="local" code="" /> < referenceRange> <observationRange> <text><0.06</text > </observationRange> </referenceRange> </observation > </component> </organizer> </entry> <entry> <organizer moodCode= "EVN" classCode="BATTERY"> <templateId root="10.29.840.1.749775.10.2022.4.1 " /> <id nullFlavor="NA" /> <code codeSystem="local" code="CBCND" displayName="CBC With Platelet No Differential" /> <statusCode code= "completed" /> <component> <observation moodCode="EVN" classCode= "OBS"> <templateId root="10.29.840.1.886182.10..22.4.2" /> < id nullFlavor="NA" /> <code codeSystem="local" code="HCT" displayName= "HCT" /> <statusCode code="completed" /> <effectiveTime value= "" /> <value unit="%" xsi:type="PQ" value="34.5" /> <interpretationCode codeSystem="local" code="*" /> < referenceRange> <observationRange> <text>42.0-52.0</text > </observationRange> </referenceRange> </observation > </component> <component> <observation moodCode="EVN" classCode="OBS"> <templateId root="10.29.840.1.503944.10..4.2" /> <id nullFlavor="NA" /> <code codeSystem="local" code="HGB" displayName="HGB" /> <statusCode code="completed" /> < effectiveTime value="" /> <value unit="g/dL" xsi:type="PQ" value="11.2" /> <interpretationCode codeSystem="local" code="*" /> <referenceRange> <observationRange> <text>14.0- 18.0</text> </observationRange> </referenceRange> </ observation> </component> <component> <observation moodCode= "EVN" classCode="OBS"> <templateId root="10.29.840.1.088676.10.20.22.4.2 " /> <id nullFlavor="NA" /> <code codeSystem="local" code="MCH " displayName="MCH" /> <statusCode code="completed" /> < effectiveTime value="" /> <value unit="pg" xsi:type="PQ" value="28.7" /> <referenceRange> <observationRange> <text>27.0-32.0</text> </observationRange> </ referenceRange> </observation> </component> <component> <observation moodCode="EVN" classCode="OBS"> <templateId root= "216.840.1.721670.10...4.2" /> <id nullFlavor="NA" /> < code codeSystem="local" code="MCHC" displayName="MCHC" /> <statusCode code="completed" /> <effectiveTime value="" /> < value unit="g/dL" xsi:type="PQ" value="32.5" /> <referenceRange> <observationRange> <text>32.0-36.0</text> </ observationRange> </referenceRange> </observation> </ component> <component> <observation moodCode="EVN" classCode="OBS"> <templateId root="216.840.1.605799.10..22.4.2" /> <id nullFlavor="NA" /> <code codeSystem="local" code="MCV" displayName="MCV " /> <statusCode code="completed" /> <effectiveTime value= "" /> <value unit="fL" xsi:type="PQ" value="88.5" /> <referenceRange> <observationRange> <text>82.0-99.0< /text> </observationRange> </referenceRange> </ observation> </component> <component> <observation moodCode= "EVN" classCode="OBS"> <templateId root="10.29.840.1.483804.10.22.4.2 " /> <id nullFlavor="NA" /> <code codeSystem="local" code="MPV " displayName="MPV" /> <statusCode code="completed" /> < effectiveTime value="" /> <value unit="fL" xsi:type="PQ" value="11.9" /> <referenceRange> <observationRange> <text>9.4-12.3</text> </observationRange> </ referenceRange> </observation> </component> <component> <observation moodCode="EVN" classCode="OBS"> <templateId root= "840.1.970848.07.02.22.4.2" /> <id nullFlavor="NA" /> < code codeSystem="local" code="PLT" displayName="Platelet Count" /> < statusCode code="completed" /> <effectiveTime value="" /> <value unit="K/uL" xsi:type="PQ" value="144" /> < interpretationCode codeSystem="local" code="*" /> <referenceRange> <observationRange> <text>150-400</text> </ observationRange> </referenceRange> </observation> </ component> <component> <observation moodCode="EVN" classCode="OBS"> <templateId root="10.29.840.1.088665.10.2022.4.2" /> <id nullFlavor="NA" /> <code codeSystem="local" code="RBC" displayName="RBC " /> <statusCode code="completed" /> <effectiveTime value= "761788706128" /> <value unit="10*6/uL" xsi:type="PQ" value="3.90" /> <interpretationCode codeSystem="local" code="*" /> < referenceRange> <observationRange> <text>4.60-6.20</text > </observationRange> </referenceRange> </observation > </component> <component> <observation moodCode="EVN" classCode="OBS"> <templateId root="216.840.1.800526.10..22.4.2" /> <id nullFlavor="NA" /> <code codeSystem="local" code="RDW" displayName="RDW" /> <statusCode code="completed" /> < effectiveTime value="571959111283" /> <value unit="%" xsi:type="PQ " value="15.9" /> <interpretationCode codeSystem="local" code="*" /> <referenceRange> <observationRange> <text>11.5- 14.5</text> </observationRange> </referenceRange> </ observation> </component> <component> <observation moodCode= "EVN" classCode="OBS"> <templateId root="10.29.840.1.287958....4.2 " /> <id nullFlavor="NA" /> <code codeSystem="local" code= "WBCIR" displayName="WBC" /> <statusCode code="completed" /> < effectiveTime value="902922324120" /> <value unit="K/uL" xsi:type="PQ" value="8.6" /> <referenceRange> <observationRange> <text>4.8-10.8</text> </observationRange> </ referenceRange> </observation> </component> </organizer> </entry > <entry> <organizer moodCode="EVN" classCode="BATTERY"> <templateId root="16.840.1.893766.10..22.4.1" /> <id nullFlavor="NA" /> <code codeSystem="local" code="LACID" displayName="Lactic Acid Venous" /> < statusCode code="completed" /> <component> <observation moodCode= "EVN" classCode="OBS"> <templateId root="16.840.1.246794.10..22.4.2 " /> <id nullFlavor="NA" /> <code codeSystem="local" code= "LACID" displayName="Lactic Acid Venous" /> <statusCode code="completed " /> <effectiveTime value="232382920458" /> <value unit="mEq/L " xsi:type="PQ" value="1.5" /> <referenceRange> < observationRange> <text>0.5-2.0</text> </ observationRange> </referenceRange> </observation> </ component> </organizer> </entry> <entry> <organizer moodCode="EVN" classCode="BATTERY"> <templateId root="10.29.840.1.649536.10..4.1" /> <id nullFlavor="NA" /> <code codeSystem="local" code="PTT" displayName ="PTT" /> <statusCode code="completed" /> <component> < observation moodCode="EVN" classCode="OBS"> <templateId root= "10.29.840.1.921556.10.22.4.2" /> <id nullFlavor="NA" /> < code codeSystem="local" code="PTT" displayName="PTT" /> <statusCode code="completed" /> <effectiveTime value="075568683063" /> < value unit="seconds" xsi:type="PQ" value="140.9" /> < interpretationCode codeSystem="local" code="" /> <referenceRange> <observationRange> <text>25.0-35.0</text> </ observationRange> </referenceRange> </observation> </ component> </organizer> </entry> <entry> <organizer moodCode="EVN" classCode="BATTERY"> <templateId root="840.1.087437.07.02.22.4.1" /> <id nullFlavor="NA" /> <code codeSystem="local" code="TROP" displayName="Troponin" /> <statusCode code="completed" /> <component> <observation moodCode="EVN" classCode="OBS"> <templateId root= "840.1.605976.07.02.22.4.2" /> <id nullFlavor="NA" /> < code codeSystem="local" code="TROP" displayName="Troponin" /> < statusCode code="completed" /> <effectiveTime value="729137873952" /> <value unit="ng/mL" xsi:type="PQ" value="2.97" /> < interpretationCode codeSystem="local" code="" /> <referenceRange> <observationRange> <text><0.06</text> </ observationRange> </referenceRange> </observation> </ component> </organizer> </entry> <entry> <organizer moodCode="EVN" classCode="BATTERY"> <templateId root="840.1.257627.07.02.22.4.1" /> <id nullFlavor="NA" /> <code codeSystem="local" code="CMP" displayName ="Comprehensive Metabolic Panel (CMP)" /> <statusCode code="completed" /> <component> <observation moodCode="EVN" classCode="OBS"> < templateId root="840.1.709249.07.02..4.2" /> <id nullFlavor="NA " /> <code codeSystem="local" code="ALB" displayName="Albumin" /> <statusCode code="completed" /> <effectiveTime value=" " /> <value unit="g/dL" xsi:type="PQ" value="3.0" /> < interpretationCode codeSystem="local" code="*" /> <referenceRange> <observationRange> <text>3.5-4.8</text> </ observationRange> </referenceRange> </observation> </ component> <component> <observation moodCode="EVN" classCode="OBS"> <templateId root="216.840.1.858642.10...4.2" /> <id nullFlavor="NA" /> <code codeSystem="local" code="ALP" displayName= "Alkaline Phosphatase" /> <statusCode code="completed" /> < effectiveTime value="" /> <value unit="U/L" xsi:type="PQ" value="101" /> <referenceRange> <observationRange> <text>26-104</text> </observationRange> </ referenceRange> </observation> </component> <component> <observation moodCode="EVN" classCode="OBS"> <templateId root= "2.16.840.1.992313.10..4.2" /> <id nullFlavor="NA" /> < code codeSystem="local" code="ALT" displayName="ALT (SGPT)" /> < statusCode code="completed" /> <effectiveTime value="" /> <value unit="U/L" xsi:type="PQ" value="1366" /> < interpretationCode codeSystem="local" code="*" /> <referenceRange> <observationRange> <text>17-63</text> </ observationRange> </referenceRange> </observation> </ component> <component> <observation moodCode="EVN" classCode="OBS"> <templateId root="16.840.1.077128.10..22.4.2" /> <id nullFlavor="NA" /> <code codeSystem="local" code="AGAP" displayName= "Anion Gap" /> <statusCode code="completed" /> <effectiveTime value="" /> <value unit="mEq/L" xsi:type="PQ" value="12" / > <referenceRange> <observationRange> <text>3- 20</text> </observationRange> </referenceRange> </ observation> </component> <component> <observation moodCode= "EVN" classCode="OBS"> <templateId root="16.840.1.891613...4.2 " /> <id nullFlavor="NA" /> <code codeSystem="local" code="AST " displayName="AST (SGOT)" /> <statusCode code="completed" /> <effectiveTime value="" /> <value unit="U/L" xsi:type="PQ" value="1876" /> <interpretationCode codeSystem="local" code="*" /> <referenceRange> <observationRange> <text>15-41</ text> </observationRange> </referenceRange> </ observation> </component> <component> <observation moodCode= "EVN" classCode="OBS"> <templateId root="10.29.840.1.178407.10..4.2 " /> <id nullFlavor="NA" /> <code codeSystem="local" code= "BILIT" displayName="Bilirubin Total" /> <statusCode code="completed" / > <effectiveTime value="" /> <value unit="mg/dL" xsi:type="PQ" value="1.4" /> <interpretationCode codeSystem="local" code="*" /> <referenceRange> <observationRange> <text>0.2-1.2</text> </observationRange> </referenceRange > </observation> </component> <component> <observation moodCode="EVN" classCode="OBS"> <templateId root= "216.840.1.810642.22.4.2" /> <id nullFlavor="NA" /> < code codeSystem="local" code="BUN" displayName="BUN" /> <statusCode code="completed" /> <effectiveTime value="882904444215" /> < value unit="mg/dL" xsi:type="PQ" value="35" /> <interpretationCode codeSystem="local" code="*" /> <referenceRange> < observationRange> <text>4-20</text> </observationRange> </referenceRange> </observation> </component> < component> <observation moodCode="EVN" classCode="OBS"> < templateId root="216.840.1.902157.07.02.22.4.2" /> <id nullFlavor="NA " /> <code codeSystem="local" code="CA" displayName="Calcium" /> <statusCode code="completed" /> <effectiveTime value="705464702873 " /> <value unit="mg/dL" xsi:type="PQ" value="7.7" /> < interpretationCode codeSystem="local" code="*" /> <referenceRange> <observationRange> <text>8.6-10.0</text> </ observationRange> </referenceRange> </observation> </ component> <component> <observation moodCode="EVN" classCode="OBS"> <templateId root="216.840.1.887079.07.02.22.4.2" /> <id nullFlavor="NA" /> <code codeSystem="local" code="CL" displayName= "Chloride" /> <statusCode code="completed" /> <effectiveTime value="" /> <value unit="mEq/L" xsi:type="PQ" value="100" / > <referenceRange> <observationRange> <text>99- 109</text> </observationRange> </referenceRange> </ observation> </component> <component> <observation moodCode= "EVN" classCode="OBS"> <templateId root="216.840.1.309169.07.02.22.4.2 " /> <id nullFlavor="NA" /> <code codeSystem="local" code="CO2 " displayName="CO2" /> <statusCode code="completed" /> < effectiveTime value="" /> <value unit="mEq/L" xsi:type="PQ " value="19" /> <interpretationCode codeSystem="local" code="*" /> <referenceRange> <observationRange> <text>22-32</ text> </observationRange> </referenceRange> </ observation> </component> <component> <observation moodCode= "EVN" classCode="OBS"> <templateId root="16.840.1.246475.07.02.22.4.2 " /> <id nullFlavor="NA" /> <code codeSystem="local" code= "CREAT" displayName="Creatinine" /> <statusCode code="completed" /> <effectiveTime value="" /> <value unit="mg/dL" xsi: type="PQ" value="1.43" /> <interpretationCode codeSystem="local" code= "*" /> <referenceRange> <observationRange> < text>0.64-1.27</text> </observationRange> </referenceRange> </observation> </component> <component> <observation moodCode="EVN" classCode="OBS"> <templateId root= "16.840.1.282025.07.02.22.4.2" /> <id nullFlavor="NA" /> < code codeSystem="local" code="GLOB" displayName="Globulin" /> < statusCode code="completed" /> <effectiveTime value="" /> <value unit="g/dL" xsi:type="PQ" value="3.0" /> < referenceRange> <observationRange> <text>1.9-4.3</text> </observationRange> </referenceRange> </observation > </component> <component> <observation moodCode="EVN" classCode="OBS"> <templateId root="10.29.840.1.863578.07.02.22.4.2" /> <id nullFlavor="NA" /> <code codeSystem="local" code="GLU" displayName="Glucose" /> <statusCode code="completed" /> < effectiveTime value="" /> <value unit="mg/dL" xsi:type="PQ " value="128" /> <interpretationCode codeSystem="local" code="*" /> <referenceRange> <observationRange> <text>70-100< /text> </observationRange> </referenceRange> </ observation> </component> <component> <observation moodCode= "EVN" classCode="OBS"> <templateId root="10.29.840.1.344344.07.02.22.4.2 " /> <id nullFlavor="NA" /> <code codeSystem="local" code="K" displayName="Potassium" /> <statusCode code="completed" /> < effectiveTime value="010274095941" /> <value unit="mEq/L" xsi:type="PQ " value="4.3" /> <referenceRange> <observationRange> <text>3.6-5.1</text> </observationRange> </ referenceRange> </observation> </component> <component> <observation moodCode="EVN" classCode="OBS"> <templateId root= "216.840.1.411974.10..4.2" /> <id nullFlavor="NA" /> < code codeSystem="local" code="TP" displayName="Protein" /> <statusCode code="completed" /> <effectiveTime value="503411957260" /> < value unit="g/dL" xsi:type="PQ" value="6.0" /> <interpretationCode codeSystem="local" code="*" /> <referenceRange> < observationRange> <text>6.1-7.9</text> </ observationRange> </referenceRange> </observation> </ component> <component> <observation moodCode="EVN" classCode="OBS"> <templateId root="16.840.1.493117.10...4.2" /> <id nullFlavor="NA" /> <code codeSystem="local" code="NA" displayName= "Sodium" /> <statusCode code="completed" /> <effectiveTime value="025211413957" /> <value unit="mEq/L" xsi:type="PQ" value="131" / > <interpretationCode codeSystem="local" code="*" /> < referenceRange> <observationRange> <text>136-144</text> </observationRange> </referenceRange> </observation > </component> </organizer> </entry> <entry> <organizer moodCode= "EVN" classCode="BATTERY"> <templateId root="2.16.840.1.870442.07.02.22.4.1 " /> <id nullFlavor="NA" /> <code codeSystem="local" code="GFR" displayName="eGFR" /> <statusCode code="completed" /> <component> <observation moodCode="EVN" classCode="OBS"> <templateId root= "840.1.882066.07.02.224.2" /> <id nullFlavor="NA" /> < code codeSystem="local" code="GFR" displayName="eGFR" /> <statusCode code="completed" /> <effectiveTime value="274915940234" /> < value unit="mL/min" xsi:type="PQ" value="53" /> <interpretationCode codeSystem="local" code="*" /> <referenceRange> < observationRange> <text>>60</text> </observationRange > </referenceRange> </observation> </component> </ organizer> </entry> <entry> <organizer moodCode="EVN" classCode="BATTERY"> <templateId root="840.1.589894.07.02.224.1" /> <id nullFlavor= "NA" /> <code codeSystem="local" code="GLUN" displayName="Glucose NPT" /> <statusCode code="completed" /> <component> <observation moodCode="EVN" classCode="OBS"> <templateId root= "840.1.058311.07.02.22.4.2" /> <id nullFlavor="NA" /> < code codeSystem="local" code="GLUN" displayName="Glucose NPT" /> < statusCode code="completed" /> <effectiveTime value="062870650478" /> <value unit="mg/dL" xsi:type="PQ" value="129" /> < interpretationCode codeSystem="local" code="*" /> <referenceRange> <observationRange> <text>70-100</text> </ observationRange> </referenceRange> </observation> </ component> </organizer> </entry> <entry> <organizer moodCode="EVN" classCode="BATTERY"> <templateId root="840.1.098060.10.4.1" /> <id nullFlavor="NA" /> <code codeSystem="local" code="PTT" displayName ="PTT" /> <statusCode code="completed" /> <component> < observation moodCode="EVN" classCode="OBS"> <templateId root= "10.29.840.1.969000.10..4.2" /> <id nullFlavor="NA" /> < code codeSystem="local" code="PTT" displayName="PTT" /> <statusCode code="completed" /> <effectiveTime value="193125696687" /> < value unit="seconds" xsi:type="PQ" value="102.6" /> < interpretationCode codeSystem="local" code="*" /> <referenceRange> <observationRange> <text>25.0-35.0</text> </ observationRange> </referenceRange> </observation> </ component> </organizer> </entry> <entry> <organizer moodCode="EVN" classCode="BATTERY"> <templateId root="10.29.840.1.336377.10..4.1" /> <id nullFlavor="NA" /> <code codeSystem="local" code="GLUN" displayName="Glucose NPT" /> <statusCode code="completed" /> < component> <observation moodCode="EVN" classCode="OBS"> < templateId root="10.29.840.1.501394.10...4.2" /> <id nullFlavor="NA " /> <code codeSystem="local" code="GLUN" displayName="Glucose NPT" / > <statusCode code="completed" /> <effectiveTime value= "537471557661" /> <value unit="mg/dL" xsi:type="PQ" value="90" /> <referenceRange> <observationRange> <text>70-100</ text> </observationRange> </referenceRange> </ observation> </component> </organizer> </entry> <entry> <organizer moodCode="EVN" classCode="BATTERY"> <templateId root= "16.840.1.104550.10..22.4.1" /> <id nullFlavor="NA" /> <code codeSystem="local" code="ABGRT" displayName="Blood Gases, Arterial (RT)" /> <statusCode code="completed" /> <component> <observation moodCode= "EVN" classCode="OBS"> <templateId root="216.840.1.858176.10...4.2 " /> <id nullFlavor="NA" /> <code codeSystem="local" code="YNES " displayName="Arterial Base Excess" /> <statusCode code="completed" / > <effectiveTime value="412287408016" /> <value unit="NA" xsi: type="PQ" value="-5" /> <interpretationCode codeSystem="local" code="* " /> <referenceRange> <observationRange> <text> 0-2</text> </observationRange> </referenceRange> </ observation> </component> <component> <observation moodCode= "EVN" classCode="OBS"> <templateId root="16.840.1.096489.07.02.22.4.2 " /> <id nullFlavor="NA" /> <code codeSystem="local" code= "AHCO3" displayName="Arterial Bicarbonate" /> <statusCode code= "completed" /> <effectiveTime value="" /> <value unit="mEq/L" xsi:type="PQ" value="19" /> <interpretationCode codeSystem ="local" code="*" /> <referenceRange> <observationRange> <text>22-26</text> </observationRange> </ referenceRange> </observation> </component> <component> <observation moodCode="EVN" classCode="OBS"> <templateId root= "216.840.1.329107.07.02.22.4.2" /> <id nullFlavor="NA" /> < code codeSystem="local" code="AOSAT" displayName="Arterial O2 Saturation" /> <statusCode code="completed" /> <effectiveTime value= "" /> <value unit="%" xsi:type="PQ" value="93.2" /> <referenceRange> <observationRange> <text>90.0- 97.0</text> </observationRange> </referenceRange> </ observation> </component> <component> <observation moodCode= "EVN" classCode="OBS"> <templateId root="216.840.1.207077.07.02.22.4.2 " /> <id nullFlavor="NA" /> <code codeSystem="local" code= "APCO2" displayName="Arterial PCO2" /> <statusCode code="completed" /> <effectiveTime value="" /> <value unit="mmHg" xsi :type="PQ" value="29" /> <interpretationCode codeSystem="local" code="* " /> <referenceRange> <observationRange> <text> 35-45</text> </observationRange> </referenceRange> </ observation> </component> <component> <observation moodCode= "EVN" classCode="OBS"> <templateId root="16.840.1.248042.10.4.2 " /> <id nullFlavor="NA" /> <code codeSystem="local" code="APH " displayName="Arterial PH" /> <statusCode code="completed" /> <effectiveTime value="130955267807" /> <value unit="NA" xsi:type="PQ " value="7.43" /> <referenceRange> <observationRange> <text>7.35-7.45</text> </observationRange> </ referenceRange> </observation> </component> <component> <observation moodCode="EVN" classCode="OBS"> <templateId root= "10.29.840.1.517284.07.02.22.4.2" /> <id nullFlavor="NA" /> < code codeSystem="local" code="APO2" displayName="Arterial PO2" /> < statusCode code="completed" /> <effectiveTime value="947394332121" /> <value unit="mmHg" xsi:type="PQ" value="66" /> < interpretationCode codeSystem="local" code="*" /> <referenceRange> <observationRange> <text>80-100</text> </ observationRange> </referenceRange> </observation> </ component> <component> <observation moodCode="EVN" classCode="OBS"> <templateId root="10.29.840.1.949342.07.02.22.4.2" /> <id nullFlavor="NA" /> <code codeSystem="local" code="AFLOW" displayName= "Arterial LPM" /> <statusCode code="completed" /> < effectiveTime value="062508274027" /> <value unit="L/min" xsi:type="PQ " value="2.00" /> <referenceRange> <observationRange> <text /> </observationRange> </referenceRange> </observation> </component> <component> <observation moodCode="EVN" classCode="OBS"> <templateId root= "10.29.840.1.825953.07.02.22.4.2" /> <id nullFlavor="NA" /> < code codeSystem="local" code="AO2PN" displayName="O2 Panel" /> < statusCode code="completed" /> <effectiveTime value="" /> <value unit="" xsi:type="PQ" value="SEE BELOW" /> < referenceRange> <observationRange> <text /> < /observationRange> </referenceRange> </observation> </ component> </organizer> </entry> <entry> <organizer moodCode="EVN" classCode="BATTERY"> <templateId root="10.29.840.1.603041.07.02.22.4.1" /> <id nullFlavor="NA" /> <code codeSystem="local" code="PTT" displayName ="PTT" /> <statusCode code="completed" /> <component> < observation moodCode="EVN" classCode="OBS"> <templateId root= "10.29.840.1.024991.07.02.22.4.2" /> <id nullFlavor="NA" /> < code codeSystem="local" code="PTT" displayName="PTT" /> <statusCode code="completed" /> <effectiveTime value="886317200963" /> < value unit="seconds" xsi:type="PQ" value="84.9" /> <interpretationCode codeSystem="local" code="*" /> <referenceRange> < observationRange> <text>25.0-35.0</text> </ observationRange> </referenceRange> </observation> </ component> </organizer> </entry> <entry> <organizer moodCode="EVN" classCode="BATTERY"> <templateId root="10.29.840.1.148350.10...4.1" /> <id nullFlavor="NA" /> <code codeSystem="local" code="TROP" displayName="Troponin" /> <statusCode code="completed" /> <component> <observation moodCode="EVN" classCode="OBS"> <templateId root= "10.29.840.1.331712.07.02.22.4.2" /> <id nullFlavor="NA" /> < code codeSystem="local" code="TROP" displayName="Troponin" /> < statusCode code="completed" /> <effectiveTime value="195724635060" /> <value unit="ng/mL" xsi:type="PQ" value="2.02" /> < interpretationCode codeSystem="local" code="" /> <referenceRange> <observationRange> <text><0.06</text> </ observationRange> </referenceRange> </observation> </ component> </organizer> </entry> <entry> <organizer moodCode="EVN" classCode="BATTERY"> <templateId root="10.29.840.1.585203.10.4.1" /> <id nullFlavor="NA" /> <code codeSystem="local" code="HA1C" displayName="Hemoglobin A1C" /> <statusCode code="completed" /> < component> <observation moodCode="EVN" classCode="OBS"> < templateId root="10.29.840.1.218747.07.02..4.2" /> <id nullFlavor="NA " /> <code codeSystem="local" code="HA1C" displayName="Hemoglobin A1C" /> <statusCode code="completed" /> <effectiveTime value= "801522494333" /> <value unit="%" xsi:type="PQ" value="5.7" /> <interpretationCode codeSystem="local" code="*" /> < referenceRange> <observationRange> <text>4.1-5.6</text> </observationRange> </referenceRange> </observation > </component> </organizer> </entry> <entry> <organizer moodCode= "EVN" classCode="BATTERY"> <templateId root="16.840.1.686563.10.22.4.1 " /> <id nullFlavor="NA" /> <code codeSystem="local" code="EAG" displayName="Estimated Average Glucose" /> <statusCode code="completed" /> <component> <observation moodCode="EVN" classCode="OBS"> < templateId root="16.840.1.290885.10..4.2" /> <id nullFlavor="NA " /> <code codeSystem="local" code="EAG" displayName="Estimated Average Glucose" /> <statusCode code="completed" /> < effectiveTime value="498532646734" /> <value unit="mg/dL" xsi:type="PQ " value="116.9" /> <referenceRange> <observationRange> <text /> </observationRange> </referenceRange> </observation> </component> </organizer> </entry> <entry> < organizer moodCode="EVN" classCode="BATTERY"> <templateId root= "16.840.1.730621.10.22.4.1" /> <id nullFlavor="NA" /> <code codeSystem="local" code="GLUN" displayName="Glucose NPT" /> <statusCode code="completed" /> <component> <observation moodCode="EVN" classCode="OBS"> <templateId root="10.29.840.1.357488.10.4.2" /> <id nullFlavor="NA" /> <code codeSystem="local" code="GLUN" displayName="Glucose NPT" /> <statusCode code="completed" /> <effectiveTime value="815985198215" /> <value unit="mg/dL" xsi:type="PQ " value="192" /> <interpretationCode codeSystem="local" code="*" /> <referenceRange> <observationRange> <text>70-100< /text> </observationRange> </referenceRange> </ observation> </component> </organizer> </entry> <entry> <organizer moodCode="EVN" classCode="BATTERY"> <templateId root= "840.1.642090.07.02.22.4.1" /> <id nullFlavor="NA" /> <code codeSystem="local" code="GLUN" displayName="Glucose NPT" /> <statusCode code="completed" /> <component> <observation moodCode="EVN" classCode="OBS"> <templateId root="840.1.137670.10.4.2" /> <id nullFlavor="NA" /> <code codeSystem="local" code="GLUN" displayName="Glucose NPT" /> <statusCode code="completed" /> <effectiveTime value="461923582291" /> <value unit="mg/dL" xsi:type="PQ " value="126" /> <interpretationCode codeSystem="local" code="*" /> <referenceRange> <observationRange> <text>70-100< /text> </observationRange> </referenceRange> </ observation> </component> </organizer> </entry> <entry> <organizer moodCode="EVN" classCode="BATTERY"> <templateId root= "16.840.1.958714.10..4.1" /> <id nullFlavor="NA" /> <code codeSystem="local" code="PT" displayName="Protime (INR)" /> <statusCode code="completed" /> <component> <observation moodCode="EVN" classCode="OBS"> <templateId root="840.1.697267.07.02.22.4.2" /> <id nullFlavor="NA" /> <code codeSystem="local" code="INR" displayName="INR" /> <statusCode code="completed" /> < effectiveTime value="204154115061" /> <value unit="NA" xsi:type="PQ" value="1.1" /> <referenceRange> <observationRange> <text>0.9-1.2</text> </observationRange> </ referenceRange> </observation> </component> </organizer> </entry > <entry> <organizer moodCode="EVN" classCode="BATTERY"> <templateId root="10.29.840.1.067789.07.02.22.4.1" /> <id nullFlavor="NA" /> <code codeSystem="local" code="PTT" displayName="PTT" /> <statusCode code= "completed" /> <component> <observation moodCode="EVN" classCode= "OBS"> <templateId root="10.29.840.1.969572.1022.4.2" /> < id nullFlavor="NA" /> <code codeSystem="local" code="PTT" displayName= "PTT" /> <statusCode code="completed" /> <effectiveTime value= "092444095972" /> <value unit="seconds" xsi:type="PQ" value="61.7" /> <interpretationCode codeSystem="local" code="*" /> < referenceRange> <observationRange> <text>25.0-35.0</text > </observationRange> </referenceRange> </observation > </component> </organizer> </entry> <entry> <organizer moodCode= "EVN" classCode="BATTERY"> <templateId root="216.840.1.037311.10..22.4.1 " /> <id nullFlavor="NA" /> <code codeSystem="local" code="CBCWD" displayName="CBC With Platelet and Differential" /> <statusCode code= "completed" /> <component> <observation moodCode="EVN" classCode= "OBS"> <templateId root="16.840.1.977275.10...4.2" /> < id nullFlavor="NA" /> <code codeSystem="local" code="HCT" displayName= "HCT" /> <statusCode code="completed" /> <effectiveTime value= "911828290956" /> <value unit="%" xsi:type="PQ" value="34.7" /> <interpretationCode codeSystem="local" code="*" /> < referenceRange> <observationRange> <text>42.0-52.0</text > </observationRange> </referenceRange> </observation > </component> <component> <observation moodCode="EVN" classCode="OBS"> <templateId root="16.840.1.028864.10...4.2" /> <id nullFlavor="NA" /> <code codeSystem="local" code="HGB" displayName="HGB" /> <statusCode code="completed" /> < effectiveTime value="" /> <value unit="g/dL" xsi:type="PQ" value="11.5" /> <interpretationCode codeSystem="local" code="*" /> <referenceRange> <observationRange> <text>14.0- 18.0</text> </observationRange> </referenceRange> </ observation> </component> <component> <observation moodCode= "EVN" classCode="OBS"> <templateId root="2.16.840.1.737160.10..22.4.2 " /> <id nullFlavor="NA" /> <code codeSystem="local" code="MCH " displayName="MCH" /> <statusCode code="completed" /> < effectiveTime value="" /> <value unit="pg" xsi:type="PQ" value="29.4" /> <referenceRange> <observationRange> <text>27.0-32.0</text> </observationRange> </ referenceRange> </observation> </component> <component> <observation moodCode="EVN" classCode="OBS"> <templateId root= "2.16.840.1.356828.10...4.2" /> <id nullFlavor="NA" /> < code codeSystem="local" code="MCHC" displayName="MCHC" /> <statusCode code="completed" /> <effectiveTime value="" /> < value unit="g/dL" xsi:type="PQ" value="33.1" /> <referenceRange> <observationRange> <text>32.0-36.0</text> </ observationRange> </referenceRange> </observation> </ component> <component> <observation moodCode="EVN" classCode="OBS"> <templateId root="10.29.840.1.530648.10.20.22.4.2" /> <id nullFlavor="NA" /> <code codeSystem="local" code="MCV" displayName="MCV " /> <statusCode code="completed" /> <effectiveTime value= "" /> <value unit="fL" xsi:type="PQ" value="88.7" /> <referenceRange> <observationRange> <text>82.0-99.0< /text> </observationRange> </referenceRange> </ observation> </component> <component> <observation moodCode= "EVN" classCode="OBS"> <templateId root="10.29.840.1.637719.10.22.4.2 " /> <id nullFlavor="NA" /> <code codeSystem="local" code="MPV " displayName="MPV" /> <statusCode code="completed" /> < effectiveTime value="" /> <value unit="fL" xsi:type="PQ" value="11.9" /> <referenceRange> <observationRange> <text>9.4-12.3</text> </observationRange> </ referenceRange> </observation> </component> <component> <observation moodCode="EVN" classCode="OBS"> <templateId root= "10.29.840.1.360665.10.20.22.4.2" /> <id nullFlavor="NA" /> < code codeSystem="local" code="PLT" displayName="Platelet Count" /> < statusCode code="completed" /> <effectiveTime value="156058766727" /> <value unit="K/uL" xsi:type="PQ" value="192" /> < referenceRange> <observationRange> <text>150-400</text> </observationRange> </referenceRange> </observation > </component> <component> <observation moodCode="EVN" classCode="OBS"> <templateId root="10.29.840.1.305293.10.20.22.4.2" /> <id nullFlavor="NA" /> <code codeSystem="local" code="RBC" displayName="RBC" /> <statusCode code="completed" /> < effectiveTime value="149930721801" /> <value unit="10*6/uL" xsi:type= "PQ" value="3.91" /> <interpretationCode codeSystem="local" code="*" / > <referenceRange> <observationRange> <text> 4.60-6.20</text> </observationRange> </referenceRange> </observation> </component> <component> <observation moodCode="EVN" classCode="OBS"> <templateId root= "10.29.840.1.604451.102022.4.2" /> <id nullFlavor="NA" /> < code codeSystem="local" code="RDW" displayName="RDW" /> <statusCode code="completed" /> <effectiveTime value="877924215118" /> < value unit="%" xsi:type="PQ" value="16.0" /> <interpretationCode codeSystem="local" code="*" /> <referenceRange> < observationRange> <text>11.5-14.5</text> </ observationRange> </referenceRange> </observation> </ component> <component> <observation moodCode="EVN" classCode="OBS"> <templateId root="10.29.840.1.897370.10.20.22.4.2" /> <id nullFlavor="NA" /> <code codeSystem="local" code="WBCIR" displayName= "WBC" /> <statusCode code="completed" /> <effectiveTime value= "984219877872" /> <value unit="K/uL" xsi:type="PQ" value="15.6" /> <interpretationCode codeSystem="local" code="*" /> < referenceRange> <observationRange> <text>4.8-10.8</text > </observationRange> </referenceRange> </observation > </component> </organizer> </entry> <entry> <organizer moodCode= "EVN" classCode="BATTERY"> <templateId root="216.840.1.414193.10..22.4.1 " /> <id nullFlavor="NA" /> <code codeSystem="local" code="CMP" displayName="Comprehensive Metabolic Panel (CMP)" /> <statusCode code= "completed" /> <component> <observation moodCode="EVN" classCode= "OBS"> <templateId root="16.840.1.490329.10..22.4.2" /> < id nullFlavor="NA" /> <code codeSystem="local" code="ALB" displayName= "Albumin" /> <statusCode code="completed" /> <effectiveTime value="450600042247" /> <value unit="g/dL" xsi:type="PQ" value="3.0" / > <interpretationCode codeSystem="local" code="*" /> < referenceRange> <observationRange> <text>3.5-4.8</text> </observationRange> </referenceRange> </observation > </component> <component> <observation moodCode="EVN" classCode="OBS"> <templateId root="10.29.840.1.970000.10..22.4.2" /> <id nullFlavor="NA" /> <code codeSystem="local" code="ALP" displayName="Alkaline Phosphatase" /> <statusCode code="completed" /> <effectiveTime value="337751363221" /> <value unit="U/L" xsi: type="PQ" value="112" /> <interpretationCode codeSystem="local" code="* " /> <referenceRange> <observationRange> <text> 26-104</text> </observationRange> </referenceRange> < /observation> </component> <component> <observation moodCode= "EVN" classCode="OBS"> <templateId root="2.16.840.1.979985.10.20.22.4.2 " /> <id nullFlavor="NA" /> <code codeSystem="local" code="ALT " displayName="ALT (SGPT)" /> <statusCode code="completed" /> <effectiveTime value="788679968889" /> <value unit="U/L" xsi:type="PQ" value="916" /> <interpretationCode codeSystem="local" code="*" /> <referenceRange> <observationRange> <text>17-63</ text> </observationRange> </referenceRange> </ observation> </component> <component> <observation moodCode= "EVN" classCode="OBS"> <templateId root="216.840.1.313733.10..22.4.2 " /> <id nullFlavor="NA" /> <code codeSystem="local" code= "AGAP" displayName="Anion Gap" /> <statusCode code="completed" /> <effectiveTime value="846751417471" /> <value unit="mEq/L" xsi: type="PQ" value="11" /> <referenceRange> <observationRange> <text>3-20</text> </observationRange> </ referenceRange> </observation> </component> <component> <observation moodCode="EVN" classCode="OBS"> <templateId root= "10.29.840.1.883110.10..4.2" /> <id nullFlavor="NA" /> < code codeSystem="local" code="AST" displayName="AST (SGOT)" /> < statusCode code="completed" /> <effectiveTime value="" /> <value unit="U/L" xsi:type="PQ" value="662" /> < interpretationCode codeSystem="local" code="*" /> <referenceRange> <observationRange> <text>15-41</text> </ observationRange> </referenceRange> </observation> </ component> <component> <observation moodCode="EVN" classCode="OBS"> <templateId root="10.29.840.1.111644.07.02.224.2" /> <id nullFlavor="NA" /> <code codeSystem="local" code="BILIT" displayName= "Bilirubin Total" /> <statusCode code="completed" /> < effectiveTime value="" /> <value unit="mg/dL" xsi:type="PQ " value="1.4" /> <interpretationCode codeSystem="local" code="*" /> <referenceRange> <observationRange> <text>0.2-1.2 </text> </observationRange> </referenceRange> </ observation> </component> <component> <observation moodCode= "EVN" classCode="OBS"> <templateId root="10.29.840.1.150731.07.02.22.4.2 " /> <id nullFlavor="NA" /> <code codeSystem="local" code="BUN " displayName="BUN" /> <statusCode code="completed" /> < effectiveTime value="539355503977" /> <value unit="mg/dL" xsi:type="PQ " value="33" /> <interpretationCode codeSystem="local" code="*" /> <referenceRange> <observationRange> <text>4-20</ text> </observationRange> </referenceRange> </ observation> </component> <component> <observation moodCode= "EVN" classCode="OBS"> <templateId root="10.29.840.1.271283.22.4.2 " /> <id nullFlavor="NA" /> <code codeSystem="local" code="CA " displayName="Calcium" /> <statusCode code="completed" /> < effectiveTime value="659869978431" /> <value unit="mg/dL" xsi:type="PQ " value="8.1" /> <interpretationCode codeSystem="local" code="*" /> <referenceRange> <observationRange> <text>8.6- 10.0</text> </observationRange> </referenceRange> </ observation> </component> <component> <observation moodCode= "EVN" classCode="OBS"> <templateId root="10.29.840.1.622755.07.02.22.4.2 " /> <id nullFlavor="NA" /> <code codeSystem="local" code="CL " displayName="Chloride" /> <statusCode code="completed" /> < effectiveTime value="784012833003" /> <value unit="mEq/L" xsi:type="PQ " value="99" /> <referenceRange> <observationRange> <text>99-109</text> </observationRange> </ referenceRange> </observation> </component> <component> <observation moodCode="EVN" classCode="OBS"> <templateId root= "10.29.840.1.078199.22.4.2" /> <id nullFlavor="NA" /> < code codeSystem="local" code="CO2" displayName="CO2" /> <statusCode code="completed" /> <effectiveTime value="390892150436" /> < value unit="mEq/L" xsi:type="PQ" value="21" /> <interpretationCode codeSystem="local" code="*" /> <referenceRange> < observationRange> <text>22-32</text> </observationRange > </referenceRange> </observation> </component> < component> <observation moodCode="EVN" classCode="OBS"> < templateId root="2.16.840.1.437587.07.02.22.4.2" /> <id nullFlavor="NA " /> <code codeSystem="local" code="CREAT" displayName="Creatinine" /> <statusCode code="completed" /> <effectiveTime value= "965585456829" /> <value unit="mg/dL" xsi:type="PQ" value="1.26" /> <referenceRange> <observationRange> <text>0.64- 1.27</text> </observationRange> </referenceRange> </ observation> </component> <component> <observation moodCode= "EVN" classCode="OBS"> <templateId root="216.840.1.459890.22.4.2 " /> <id nullFlavor="NA" /> <code codeSystem="local" code= "GLOB" displayName="Globulin" /> <statusCode code="completed" /> <effectiveTime value="368770523230" /> <value unit="g/dL" xsi:type= "PQ" value="3.1" /> <referenceRange> <observationRange> <text>1.9-4.3</text> </observationRange> </ referenceRange> </observation> </component> <component> <observation moodCode="EVN" classCode="OBS"> <templateId root= "216.840.1.389680.10..22.4.2" /> <id nullFlavor="NA" /> < code codeSystem="local" code="GLU" displayName="Glucose" /> < statusCode code="completed" /> <effectiveTime value="" /> <value unit="mg/dL" xsi:type="PQ" value="112" /> < interpretationCode codeSystem="local" code="*" /> <referenceRange> <observationRange> <text>70-100</text> </ observationRange> </referenceRange> </observation> </ component> <component> <observation moodCode="EVN" classCode="OBS"> <templateId root="10.29.840.1.894060.07.02.22.4.2" /> <id nullFlavor="NA" /> <code codeSystem="local" code="K" displayName= "Potassium" /> <statusCode code="completed" /> <effectiveTime value="" /> <value unit="mEq/L" xsi:type="PQ" value="4.3" / > <referenceRange> <observationRange> <text>3.6 -5.1</text> </observationRange> </referenceRange> </ observation> </component> <component> <observation moodCode= "EVN" classCode="OBS"> <templateId root="16.840.1.930671.10..22.4.2 " /> <id nullFlavor="NA" /> <code codeSystem="local" code="TP " displayName="Protein" /> <statusCode code="completed" /> < effectiveTime value="" /> <value unit="g/dL" xsi:type="PQ" value="6.1" /> <referenceRange> <observationRange> <text>6.1-7.9</text> </observationRange> </ referenceRange> </observation> </component> <component> <observation moodCode="EVN" classCode="OBS"> <templateId root= "16.840.1.000993.10.20.22.4.2" /> <id nullFlavor="NA" /> < code codeSystem="local" code="NA" displayName="Sodium" /> <statusCode code="completed" /> <effectiveTime value="580681403848" /> < value unit="mEq/L" xsi:type="PQ" value="131" /> <interpretationCode codeSystem="local" code="*" /> <referenceRange> < observationRange> <text>136-144</text> </ observationRange> </referenceRange> </observation> </ component> </organizer> </entry> <entry> <organizer moodCode="EVN" classCode="BATTERY"> <templateId root="10.29.840.1.167889.10..22.4.1" /> <id nullFlavor="NA" /> <code codeSystem="local" code="GFR" displayName ="eGFR" /> <statusCode code="completed" /> <component> < observation moodCode="EVN" classCode="OBS"> <templateId root= "10.29.840.1.195155.10.20.22.4.2" /> <id nullFlavor="NA" /> < code codeSystem="local" code="GFR" displayName="eGFR" /> <statusCode code="completed" /> <effectiveTime value="593614619067" /> < value unit="mL/min" xsi:type="PQ" value=">60" /> <referenceRange> <observationRange> <text>>60</text> </ observationRange> </referenceRange> </observation> </ component> </organizer> </entry> <entry> <organizer moodCode="EVN" classCode="BATTERY"> <templateId root="10.29.840.1.209309.10.22.4.1" /> <id nullFlavor="NA" /> <code codeSystem="local" code="TSHR" displayName="TSH with Reflex Free T4" /> <statusCode code="completed" /> <component> <observation moodCode="EVN" classCode="OBS"> < templateId root="840.1.122538.07.02.22.4.2" /> <id nullFlavor="NA " /> <code codeSystem="local" code="TSHR" displayName="TSH with Reflex Free T4" /> <statusCode code="completed" /> <effectiveTime value="994292242326" /> <value unit="uIU/mL" xsi:type="PQ" value="3.50 " /> <referenceRange> <observationRange> <text> 0.35-4.94</text> </observationRange> </referenceRange> </observation> </component> </organizer> </entry> <entry> < organizer moodCode="EVN" classCode="BATTERY"> <templateId root= "840.1.230218.1022.4.1" /> <id nullFlavor="NA" /> <code codeSystem="local" code="BNP" displayName="B-Type Natriuretic Peptide" /> < statusCode code="completed" /> <component> <observation moodCode= "EVN" classCode="OBS"> <templateId root="10.29.840.1.101878.10..22.4.2 " /> <id nullFlavor="NA" /> <code codeSystem="local" code="BNP " displayName="B-Type Natriuretic Peptide" /> <statusCode code= "completed" /> <effectiveTime value="801290632965" /> <value unit="pg/mL" xsi:type="PQ" value="2026" /> <interpretationCode codeSystem="local" code="*" /> <referenceRange> < observationRange> <text>0-99</text> </observationRange> </referenceRange> </observation> </component> </ organizer> </entry> <entry> <organizer moodCode="EVN" classCode="BATTERY"> <templateId root="216.840.1.253661.10..22.4.1" /> <id nullFlavor= "NA" /> <code codeSystem="local" code="PCT" displayName="Procalcitonin" /> <statusCode code="completed" /> <component> <observation moodCode="EVN" classCode="OBS"> <templateId root= "216.840.1.302154.10..22.4.2" /> <id nullFlavor="NA" /> < code codeSystem="local" code="PCT" displayName="Procalcitonin" /> < statusCode code="completed" /> <effectiveTime value="611943853875" /> <value unit="ng/mL" xsi:type="PQ" value="0.11" /> < interpretationCode codeSystem="local" code="*" /> <referenceRange> <observationRange> <text>0.00-0.09</text> </ observationRange> </referenceRange> </observation> </ component> </organizer> </entry> <entry> <organizer moodCode="EVN" classCode="BATTERY"> <templateId root="216.840.1.669302.10..22.4.1" /> <id nullFlavor="NA" /> <code codeSystem="local" code="ABGRT" displayName="Blood Gases, Arterial (RT)" /> <statusCode code="completed" / > <component> <observation moodCode="EVN" classCode="OBS"> <templateId root="16.840.1.784912.10..22.4.2" /> <id nullFlavor="NA " /> <code codeSystem="local" code="YNES" displayName="Arterial Base Excess" /> <statusCode code="completed" /> <effectiveTime value="[id number]" /> <value unit="NA" xsi:type="PQ" value="-2" /> <interpretationCode codeSystem="local" code="*" /> < referenceRange> <observationRange> <text>0-2</text> </observationRange> </referenceRange> </observation> </component> <component> <observation moodCode="EVN" classCode= "OBS"> <templateId root="10.29.840.1.021185.10..4.2" /> < id nullFlavor="NA" /> <code codeSystem="local" code="AHCO3" displayName ="Arterial Bicarbonate" /> <statusCode code="completed" /> < effectiveTime value="148180429814" /> <value unit="mEq/L" xsi:type="PQ " value="22" /> <referenceRange> <observationRange> <text>22-26</text> </observationRange> </ referenceRange> </observation> </component> <component> <observation moodCode="EVN" classCode="OBS"> <templateId root= "16.840.1.066399.10.20.22.4.2" /> <id nullFlavor="NA" /> < code codeSystem="local" code="AOSAT" displayName="Arterial O2 Saturation" /> <statusCode code="completed" /> <effectiveTime value= "376734988271" /> <value unit="%" xsi:type="PQ" value="92.4" /> <referenceRange> <observationRange> <text>90.0- 97.0</text> </observationRange> </referenceRange> </ observation> </component> <component> <observation moodCode= "EVN" classCode="OBS"> <templateId root="216.840.1.442542.10.20.22.4.2 " /> <id nullFlavor="NA" /> <code codeSystem="local" code= "APCO2" displayName="Arterial PCO2" /> <statusCode code="completed" /> <effectiveTime value="[id number]" /> <value unit="mmHg" xsi :type="PQ" value="33" /> <interpretationCode codeSystem="local" code="* " /> <referenceRange> <observationRange> <text> 35-45</text> </observationRange> </referenceRange> </ observation> </component> <component> <observation moodCode= "EVN" classCode="OBS"> <templateId root="216.840.1.297500.10.20.22.4.2 " /> <id nullFlavor="NA" /> <code codeSystem="local" code="APH " displayName="Arterial PH" /> <statusCode code="completed" /> <effectiveTime value="568020099402" /> <value unit="NA" xsi:type="PQ " value="7.44" /> <referenceRange> <observationRange> <text>7.35-7.45</text> </observationRange> </ referenceRange> </observation> </component> <component> <observation moodCode="EVN" classCode="OBS"> <templateId root= "2.16.840.1.333446.10.20.22.4.2" /> <id nullFlavor="NA" /> < code codeSystem="local" code="APO2" displayName="Arterial PO2" /> < statusCode code="completed" /> <effectiveTime value="092738703443" /> <value unit="mmHg" xsi:type="PQ" value="63" /> < interpretationCode codeSystem="local" code="*" /> <referenceRange> <observationRange> <text>80-100</text> </ observationRange> </referenceRange> </observation> </ component> </organizer> </entry> <entry> <organizer moodCode="EVN" classCode="BATTERY"> <templateId root="2.16.840.1.470930.10.20.22.4.1" /> <id nullFlavor="NA" /> <code codeSystem="local" code="GLUN" displayName="Glucose NPT" /> <statusCode code="completed" /> < component> <observation moodCode="EVN" classCode="OBS"> < templateId root="2.16.840.1.685014.10.20.22.4.2" /> <id nullFlavor="NA " /> <code codeSystem="local" code="GLUN" displayName="Glucose NPT" / > <statusCode code="completed" /> <effectiveTime value= "843640524153" /> <value unit="mg/dL" xsi:type="PQ" value="125" /> <interpretationCode codeSystem="local" code="*" /> < referenceRange> <observationRange> <text>70-100</text> </observationRange> </referenceRange> </observation> </component> </organizer> </entry> <entry> <organizer moodCode= "EVN" classCode="BATTERY"> <templateId root="216.840.1.148780.10..22.4.1 " /> <id nullFlavor="NA" /> <code codeSystem="local" code="CBCWD" displayName="CBC With Platelet and Differential" /> <statusCode code= "completed" /> <component> <observation moodCode="EVN" classCode= "OBS"> <templateId root="216.840.1.223702.07.02.22.4.2" /> < id nullFlavor="NA" /> <code codeSystem="local" code="HCT" displayName= "HCT" /> <statusCode code="completed" /> <effectiveTime value= "" /> <value unit="%" xsi:type="PQ" value="34.3" /> <interpretationCode codeSystem="local" code="*" /> < referenceRange> <observationRange> <text>42.0-52.0</text > </observationRange> </referenceRange> </observation > </component> <component> <observation moodCode="EVN" classCode="OBS"> <templateId root="216.840.1.842455.10...4.2" /> <id nullFlavor="NA" /> <code codeSystem="local" code="HGB" displayName="HGB" /> <statusCode code="completed" /> < effectiveTime value="" /> <value unit="g/dL" xsi:type="PQ" value="11.1" /> <interpretationCode codeSystem="local" code="*" /> <referenceRange> <observationRange> <text>14.0- 18.0</text> </observationRange> </referenceRange> </ observation> </component> <component> <observation moodCode= "EVN" classCode="OBS"> <templateId root="216.840.1.934147.10.22.4.2 " /> <id nullFlavor="NA" /> <code codeSystem="local" code="MCH " displayName="MCH" /> <statusCode code="completed" /> < effectiveTime value="" /> <value unit="pg" xsi:type="PQ" value="28.8" /> <referenceRange> <observationRange> <text>27.0-32.0</text> </observationRange> </ referenceRange> </observation> </component> <component> <observation moodCode="EVN" classCode="OBS"> <templateId root= "216.840.1.591807.07.02.22.4.2" /> <id nullFlavor="NA" /> < code codeSystem="local" code="MCHC" displayName="MCHC" /> <statusCode code="completed" /> <effectiveTime value="" /> < value unit="g/dL" xsi:type="PQ" value="32.4" /> <referenceRange> <observationRange> <text>32.0-36.0</text> </ observationRange> </referenceRange> </observation> </ component> <component> <observation moodCode="EVN" classCode="OBS"> <templateId root="10.29.840.1.762225.10.4.2" /> <id nullFlavor="NA" /> <code codeSystem="local" code="MCV" displayName="MCV " /> <statusCode code="completed" /> <effectiveTime value= "" /> <value unit="fL" xsi:type="PQ" value="89.1" /> <referenceRange> <observationRange> <text>82.0-99.0< /text> </observationRange> </referenceRange> </ observation> </component> <component> <observation moodCode= "EVN" classCode="OBS"> <templateId root="10.29.840.1.137265.07.02.22.4.2 " /> <id nullFlavor="NA" /> <code codeSystem="local" code="MPV " displayName="MPV" /> <statusCode code="completed" /> < effectiveTime value="" /> <value unit="fL" xsi:type="PQ" value="11.8" /> <referenceRange> <observationRange> <text>9.4-12.3</text> </observationRange> </ referenceRange> </observation> </component> <component> <observation moodCode="EVN" classCode="OBS"> <templateId root= "10.29.840.1.270908.07.02.22.4.2" /> <id nullFlavor="NA" /> < code codeSystem="local" code="PLT" displayName="Platelet Count" /> < statusCode code="completed" /> <effectiveTime value="" /> <value unit="K/uL" xsi:type="PQ" value="180" /> < referenceRange> <observationRange> <text>150-400</text> </observationRange> </referenceRange> </observation > </component> <component> <observation moodCode="EVN" classCode="OBS"> <templateId root="10.29.840.1.467330.07.02.22.4.2" /> <id nullFlavor="NA" /> <code codeSystem="local" code="RBC" displayName="RBC" /> <statusCode code="completed" /> < effectiveTime value="" /> <value unit="10*6/uL" xsi:type= "PQ" value="3.85" /> <interpretationCode codeSystem="local" code="*" / > <referenceRange> <observationRange> <text> 4.60-6.20</text> </observationRange> </referenceRange> </observation> </component> <component> <observation moodCode="EVN" classCode="OBS"> <templateId root= "2.16.840.1.878645.07.02.22.4.2" /> <id nullFlavor="NA" /> < code codeSystem="local" code="RDW" displayName="RDW" /> <statusCode code="completed" /> <effectiveTime value="296017897529" /> < value unit="%" xsi:type="PQ" value="16.0" /> <interpretationCode codeSystem="local" code="*" /> <referenceRange> < observationRange> <text>11.5-14.5</text> </ observationRange> </referenceRange> </observation> </ component> <component> <observation moodCode="EVN" classCode="OBS"> <templateId root="216.840.1.268739.07.02.22.4.2" /> <id nullFlavor="NA" /> <code codeSystem="local" code="WBCIR" displayName= "WBC" /> <statusCode code="completed" /> <effectiveTime value= "012366854708" /> <value unit="K/uL" xsi:type="PQ" value="9.8" /> <referenceRange> <observationRange> <text>4.8-10.8< /text> </observationRange> </referenceRange> </ observation> </component> </organizer> </entry> <entry> <organizer moodCode="EVN" classCode="BATTERY"> <templateId root= "216.840.1.766918.07.02.22.4.1" /> <id nullFlavor="NA" /> <code codeSystem="local" code="PT" displayName="Protime (INR)" /> <statusCode code="completed" /> <component> <observation moodCode="EVN" classCode="OBS"> <templateId root="10.29.840.1.932929.07.02.22.4.2" /> <id nullFlavor="NA" /> <code codeSystem="local" code="INR" displayName="INR" /> <statusCode code="completed" /> < effectiveTime value="" /> <value unit="NA" xsi:type="PQ" value="1.0" /> <referenceRange> <observationRange> <text>0.9-1.2</text> </observationRange> </ referenceRange> </observation> </component> </organizer> </entry > <entry> <organizer moodCode="EVN" classCode="BATTERY"> <templateId root="10.29.840.1.589830.07.02.22.4.1" /> <id nullFlavor="NA" /> <code codeSystem="local" code="PTT" displayName="PTT" /> <statusCode code= "completed" /> <component> <observation moodCode="EVN" classCode= "OBS"> <templateId root="10.29.840.1.827385.10.4.2" /> < id nullFlavor="NA" /> <code codeSystem="local" code="PTT" displayName= "PTT" /> <statusCode code="completed" /> <effectiveTime value= "" /> <value unit="seconds" xsi:type="PQ" value="52.5" /> <interpretationCode codeSystem="local" code="*" /> < referenceRange> <observationRange> <text>25.0-35.0</text > </observationRange> </referenceRange> </observation > </component> </organizer> </entry> <entry> <organizer moodCode= "EVN" classCode="BATTERY"> <templateId root="840.1.108691.10..4.1 " /> <id nullFlavor="NA" /> <code codeSystem="local" code="CMP" displayName="Comprehensive Metabolic Panel (CMP)" /> <statusCode code= "completed" /> <component> <observation moodCode="EVN" classCode= "OBS"> <templateId root="10.29.840.1.733744.07.02.22.4.2" /> < id nullFlavor="NA" /> <code codeSystem="local" code="ALB" displayName= "Albumin" /> <statusCode code="completed" /> <effectiveTime value="" /> <value unit="g/dL" xsi:type="PQ" value="2.9" / > <interpretationCode codeSystem="local" code="*" /> < referenceRange> <observationRange> <text>3.5-4.8</text> </observationRange> </referenceRange> </observation > </component> <component> <observation moodCode="EVN" classCode="OBS"> <templateId root="840.1.193518.07.02.22.4.2" /> <id nullFlavor="NA" /> <code codeSystem="local" code="ALP" displayName="Alkaline Phosphatase" /> <statusCode code="completed" /> <effectiveTime value="573383632267" /> <value unit="U/L" xsi: type="PQ" value="112" /> <interpretationCode codeSystem="local" code="* " /> <referenceRange> <observationRange> <text> 26-104</text> </observationRange> </referenceRange> < /observation> </component> <component> <observation moodCode= "EVN" classCode="OBS"> <templateId root="10.29.840.1.984960.10.20.22.4.2 " /> <id nullFlavor="NA" /> <code codeSystem="local" code="ALT " displayName="ALT (SGPT)" /> <statusCode code="completed" /> <effectiveTime value="" /> <value unit="U/L" xsi:type="PQ" value="681" /> <interpretationCode codeSystem="local" code="*" /> <referenceRange> <observationRange> <text>17-63</ text> </observationRange> </referenceRange> </ observation> </component> <component> <observation moodCode= "EVN" classCode="OBS"> <templateId root="840.1.697895.10..4.2 " /> <id nullFlavor="NA" /> <code codeSystem="local" code= "AGAP" displayName="Anion Gap" /> <statusCode code="completed" /> <effectiveTime value="" /> <value unit="mEq/L" xsi: type="PQ" value="10" /> <referenceRange> <observationRange> <text>3-20</text> </observationRange> </ referenceRange> </observation> </component> <component> <observation moodCode="EVN" classCode="OBS"> <templateId root= "10.29.840.1.057339.10..22.4.2" /> <id nullFlavor="NA" /> < code codeSystem="local" code="AST" displayName="AST (SGOT)" /> < statusCode code="completed" /> <effectiveTime value="" /> <value unit="U/L" xsi:type="PQ" value="401" /> < interpretationCode codeSystem="local" code="*" /> <referenceRange> <observationRange> <text>15-41</text> </ observationRange> </referenceRange> </observation> </ component> <component> <observation moodCode="EVN" classCode="OBS"> <templateId root="216.840.1.420443.10..22.4.2" /> <id nullFlavor="NA" /> <code codeSystem="local" code="BILIT" displayName= "Bilirubin Total" /> <statusCode code="completed" /> < effectiveTime value="" /> <value unit="mg/dL" xsi:type="PQ " value="1.6" /> <interpretationCode codeSystem="local" code="*" /> <referenceRange> <observationRange> <text>0.2-1.2 </text> </observationRange> </referenceRange> </ observation> </component> <component> <observation moodCode= "EVN" classCode="OBS"> <templateId root="216.840.1.553454.10.20.22.4.2 " /> <id nullFlavor="NA" /> <code codeSystem="local" code="BUN " displayName="BUN" /> <statusCode code="completed" /> < effectiveTime value="" /> <value unit="mg/dL" xsi:type="PQ " value="29" /> <interpretationCode codeSystem="local" code="*" /> <referenceRange> <observationRange> <text>4-20</ text> </observationRange> </referenceRange> </ observation> </component> <component> <observation moodCode= "EVN" classCode="OBS"> <templateId root="16.840.1.706265.10..22.4.2 " /> <id nullFlavor="NA" /> <code codeSystem="local" code="CA " displayName="Calcium" /> <statusCode code="completed" /> < effectiveTime value="" /> <value unit="mg/dL" xsi:type="PQ " value="8.1" /> <interpretationCode codeSystem="local" code="*" /> <referenceRange> <observationRange> <text>8.6- 10.0</text> </observationRange> </referenceRange> </ observation> </component> <component> <observation moodCode= "EVN" classCode="OBS"> <templateId root="10.29.840.1.237682.07.02.22.4.2 " /> <id nullFlavor="NA" /> <code codeSystem="local" code="CL " displayName="Chloride" /> <statusCode code="completed" /> < effectiveTime value="" /> <value unit="mEq/L" xsi:type="PQ " value="97" /> <interpretationCode codeSystem="local" code="*" /> <referenceRange> <observationRange> <text>99-109</ text> </observationRange> </referenceRange> </ observation> </component> <component> <observation moodCode= "EVN" classCode="OBS"> <templateId root="10.29.840.1.787534...22.4.2 " /> <id nullFlavor="NA" /> <code codeSystem="local" code="CO2 " displayName="CO2" /> <statusCode code="completed" /> < effectiveTime value="" /> <value unit="mEq/L" xsi:type="PQ " value="26" /> <referenceRange> <observationRange> <text>22-32</text> </observationRange> </ referenceRange> </observation> </component> <component> <observation moodCode="EVN" classCode="OBS"> <templateId root= "10.29.840.1.391343.10.20.22.4.2" /> <id nullFlavor="NA" /> < code codeSystem="local" code="CREAT" displayName="Creatinine" /> < statusCode code="completed" /> <effectiveTime value="" /> <value unit="mg/dL" xsi:type="PQ" value="1.24" /> < referenceRange> <observationRange> <text>0.64-1.27</text > </observationRange> </referenceRange> </observation > </component> <component> <observation moodCode="EVN" classCode="OBS"> <templateId root="840.1.393593.1022.4.2" /> <id nullFlavor="NA" /> <code codeSystem="local" code="GLOB" displayName="Globulin" /> <statusCode code="completed" /> < effectiveTime value="" /> <value unit="g/dL" xsi:type="PQ" value="3.1" /> <referenceRange> <observationRange> <text>1.9-4.3</text> </observationRange> </ referenceRange> </observation> </component> <component> <observation moodCode="EVN" classCode="OBS"> <templateId root= "10.29.840.1.451277.10.2022.4.2" /> <id nullFlavor="NA" /> < code codeSystem="local" code="GLU" displayName="Glucose" /> < statusCode code="completed" /> <effectiveTime value="" /> <value unit="mg/dL" xsi:type="PQ" value="97" /> < referenceRange> <observationRange> <text>70-100</text> </observationRange> </referenceRange> </observation> </component> <component> <observation moodCode="EVN" classCode ="OBS"> <templateId root="10.29.840.1.966203.07.02.22.4.2" /> < id nullFlavor="NA" /> <code codeSystem="local" code="K" displayName= "Potassium" /> <statusCode code="completed" /> <effectiveTime value="" /> <value unit="mEq/L" xsi:type="PQ" value="4.1" / > <referenceRange> <observationRange> <text>3.6 -5.1</text> </observationRange> </referenceRange> </ observation> </component> <component> <observation moodCode= "EVN" classCode="OBS"> <templateId root="10.29.840.1.432156.07.02.22.4.2 " /> <id nullFlavor="NA" /> <code codeSystem="local" code="TP " displayName="Protein" /> <statusCode code="completed" /> < effectiveTime value="" /> <value unit="g/dL" xsi:type="PQ" value="6.0" /> <interpretationCode codeSystem="local" code="*" /> <referenceRange> <observationRange> <text>6.1-7.9</ text> </observationRange> </referenceRange> </ observation> </component> <component> <observation moodCode= "EVN" classCode="OBS"> <templateId root="10.29.840.1.380562.07.02.22.4.2 " /> <id nullFlavor="NA" /> <code codeSystem="local" code="NA " displayName="Sodium" /> <statusCode code="completed" /> < effectiveTime value="" /> <value unit="mEq/L" xsi:type="PQ " value="133" /> <interpretationCode codeSystem="local" code="*" /> <referenceRange> <observationRange> <text>136-144 </text> </observationRange> </referenceRange> </ observation> </component> </organizer> </entry> <entry> <organizer moodCode="EVN" classCode="BATTERY"> <templateId root= "10.29.840.1.692323.07.02.22.4.1" /> <id nullFlavor="NA" /> <code codeSystem="local" code="MG" displayName="Magnesium" /> <statusCode code= "completed" /> <component> <observation moodCode="EVN" classCode= "OBS"> <templateId root="216.840.1.593308.07.02.22.4.2" /> < id nullFlavor="NA" /> <code codeSystem="local" code="MG" displayName= "Magnesium" /> <statusCode code="completed" /> <effectiveTime value="" /> <value unit="mg/dL" xsi:type="PQ" value="2.2" / > <referenceRange> <observationRange> <text>1.8 -2.5</text> </observationRange> </referenceRange> </ observation> </component> </organizer> </entry> <entry> <organizer moodCode="EVN" classCode="BATTERY"> <templateId root= "216.840.1.263807.07.02.22.4.1" /> <id nullFlavor="NA" /> <code codeSystem="local" code="PHOS" displayName="Phosphorus" /> <statusCode code ="completed" /> <component> <observation moodCode="EVN" classCode= "OBS"> <templateId root="16.840.1.504978.07.02.22.4.2" /> < id nullFlavor="NA" /> <code codeSystem="local" code="PHOS" displayName= "Phosphorus" /> <statusCode code="completed" /> < effectiveTime value="" /> <value unit="mg/dL" xsi:type="PQ " value="2.7" /> <referenceRange> <observationRange> <text>2.4-4.7</text> </observationRange> </ referenceRange> </observation> </component> </organizer> </entry > <entry> <organizer moodCode="EVN" classCode="BATTERY"> <templateId root="16.840.1.936260.07.02.22.4.1" /> <id nullFlavor="NA" /> <code codeSystem="local" code="GFR" displayName="eGFR" /> <statusCode code= "completed" /> <component> <observation moodCode="EVN" classCode= "OBS"> <templateId root="10.29.840.1.632636.07.02.22.4.2" /> < id nullFlavor="NA" /> <code codeSystem="local" code="GFR" displayName= "eGFR" /> <statusCode code="completed" /> <effectiveTime value ="" /> <value unit="mL/min" xsi:type="PQ" value=">60" / > <referenceRange> <observationRange> <text>&gt ;60</text> </observationRange> </referenceRange> </ observation> </component> </organizer> </entry> <entry> <organizer moodCode="EVN" classCode="BATTERY"> <templateId root= "840.1.425213.07.02.22.4.1" /> <id nullFlavor="NA" /> <code codeSystem="local" code="AMMOV" displayName="Ammonia" /> <statusCode code= "completed" /> <component> <observation moodCode="EVN" classCode= "OBS"> <templateId root="840.1.367835.07.02.224.2" /> < id nullFlavor="NA" /> <code codeSystem="local" code="AMMOV" displayName ="Ammonia" /> <statusCode code="completed" /> <effectiveTime value="763675058016" /> <value unit="umol/L" xsi:type="PQ" value="24" / > <referenceRange> <observationRange> <text>9- 35</text> </observationRange> </referenceRange> </ observation> </component> </organizer> </entry> <entry> <organizer moodCode="EVN" classCode="BATTERY"> <templateId root= "840.1.505085.07.02.22.4.1" /> <id nullFlavor="NA" /> <code codeSystem="local" code="PTT" displayName="PTT" /> <statusCode code= "completed" /> <component> <observation moodCode="EVN" classCode= "OBS"> <templateId root="840.1.114280.07.02.22.4.2" /> < id nullFlavor="NA" /> <code codeSystem="local" code="PTT" displayName= "PTT" /> <statusCode code="completed" /> <effectiveTime value= "059488113776" /> <value unit="seconds" xsi:type="PQ" value="27.2" /> <referenceRange> <observationRange> <text>25.0- 35.0</text> </observationRange> </referenceRange> </ observation> </component> </organizer> </entry> <entry> <organizer moodCode="EVN" classCode="BATTERY"> <templateId root= "216.840.1.463390.10..22.4.1" /> <id nullFlavor="NA" /> <code codeSystem="local" code="GLUN" displayName="Glucose NPT" /> <statusCode code="completed" /> <component> <observation moodCode="EVN" classCode="OBS"> <templateId root="216.840.1.809498.10...4.2" /> <id nullFlavor="NA" /> <code codeSystem="local" code="GLUN" displayName="Glucose NPT" /> <statusCode code="completed" /> <effectiveTime value="346900959451" /> <value unit="mg/dL" xsi:type="PQ " value="66" /> <interpretationCode codeSystem="local" code="*" /> <referenceRange> <observationRange> <text>70-100</ text> </observationRange> </referenceRange> </ observation> </component> </organizer> </entry> <entry> <organizer moodCode="EVN" classCode="BATTERY"> <templateId root= "216.840.1.186210.10...4.1" /> <id nullFlavor="NA" /> <code codeSystem="local" code="GLUN" displayName="Glucose NPT" /> <statusCode code="completed" /> <component> <observation moodCode="EVN" classCode="OBS"> <templateId root="216.840.1.218122.10..22.4.2" /> <id nullFlavor="NA" /> <code codeSystem="local" code="GLUN" displayName="Glucose NPT" /> <statusCode code="completed" /> <effectiveTime value="403185725499" /> <value unit="mg/dL" xsi:type="PQ " value="118" /> <interpretationCode codeSystem="local" code="*" /> <referenceRange> <observationRange> <text>70-100< /text> </observationRange> </referenceRange> </ observation> </component> </organizer> </entry> <entry> <organizer moodCode="EVN" classCode="BATTERY"> <templateId root= "216.840.1.027882.10..22.4.1" /> <id nullFlavor="NA" /> <code codeSystem="local" code="GLUN" displayName="Glucose NPT" /> <statusCode code="completed" /> <component> <observation moodCode="EVN" classCode="OBS"> <templateId root="2.16.840.1.585332.10.20.22.4.2" /> <id nullFlavor="NA" /> <code codeSystem="local" code="GLUN" displayName="Glucose NPT" /> <statusCode code="completed" /> <effectiveTime value="130743542358" /> <value unit="mg/dL" xsi:type="PQ " value="170" /> <interpretationCode codeSystem="local" code="*" /> <referenceRange> <observationRange> <text>70-100< /text> </observationRange> </referenceRange> </ observation> </component> </organizer> </entry> <entry> <organizer moodCode="EVN" classCode="BATTERY"> <templateId root= "2.16.840.1.388653.10..22.4.1" /> <id nullFlavor="NA" /> <code codeSystem="local" code="CBCND" displayName="CBC With Platelet No Differential" /> <statusCode code="completed" /> <component> <observation moodCode="EVN" classCode="OBS"> <templateId root= "216.840.1.409759.10..22.4.2" /> <id nullFlavor="NA" /> < code codeSystem="local" code="HCT" displayName="HCT" /> <statusCode code="completed" /> <effectiveTime value="051020361588" /> < value unit="%" xsi:type="PQ" value="34.3" /> <interpretationCode codeSystem="local" code="*" /> <referenceRange> < observationRange> <text>42.0-52.0</text> </ observationRange> </referenceRange> </observation> </ component> <component> <observation moodCode="EVN" classCode="OBS"> <templateId root="2.16.840.1.904057.10..22.4.2" /> <id nullFlavor="NA" /> <code codeSystem="local" code="HGB" displayName="HGB " /> <statusCode code="completed" /> <effectiveTime value= "308396755600" /> <value unit="g/dL" xsi:type="PQ" value="11.0" /> <interpretationCode codeSystem="local" code="*" /> < referenceRange> <observationRange> <text>14.0-18.0</text > </observationRange> </referenceRange> </observation > </component> <component> <observation moodCode="EVN" classCode="OBS"> <templateId root="16.840.1.012185.10..4.2" /> <id nullFlavor="NA" /> <code codeSystem="local" code="MCH" displayName="MCH" /> <statusCode code="completed" /> < effectiveTime value="053013431897" /> <value unit="pg" xsi:type="PQ" value="28.9" /> <referenceRange> <observationRange> <text>27.0-32.0</text> </observationRange> </ referenceRange> </observation> </component> <component> <observation moodCode="EVN" classCode="OBS"> <templateId root= "10.29.840.1.060131.10..4.2" /> <id nullFlavor="NA" /> < code codeSystem="local" code="MCHC" displayName="MCHC" /> <statusCode code="completed" /> <effectiveTime value="337652897273" /> < value unit="g/dL" xsi:type="PQ" value="32.1" /> <referenceRange> <observationRange> <text>32.0-36.0</text> </ observationRange> </referenceRange> </observation> </ component> <component> <observation moodCode="EVN" classCode="OBS"> <templateId root="10.29.840.1.866473.10.2022.4.2" /> <id nullFlavor="NA" /> <code codeSystem="local" code="MCV" displayName="MCV " /> <statusCode code="completed" /> <effectiveTime value= "727238513430" /> <value unit="fL" xsi:type="PQ" value="90.0" /> <referenceRange> <observationRange> <text>82.0-99.0< /text> </observationRange> </referenceRange> </ observation> </component> <component> <observation moodCode= "EVN" classCode="OBS"> <templateId root="16.840.1.208440.10.22.4.2 " /> <id nullFlavor="NA" /> <code codeSystem="local" code="MPV " displayName="MPV" /> <statusCode code="completed" /> < effectiveTime value="747647009295" /> <value unit="fL" xsi:type="PQ" value="11.5" /> <referenceRange> <observationRange> <text>9.4-12.3</text> </observationRange> </ referenceRange> </observation> </component> <component> <observation moodCode="EVN" classCode="OBS"> <templateId root= "10.29.840.1.518102.07.02.22.4.2" /> <id nullFlavor="NA" /> < code codeSystem="local" code="PLT" displayName="Platelet Count" /> < statusCode code="completed" /> <effectiveTime value="102937857774" /> <value unit="K/uL" xsi:type="PQ" value="165" /> < referenceRange> <observationRange> <text>150-400</text> </observationRange> </referenceRange> </observation > </component> <component> <observation moodCode="EVN" classCode="OBS"> <templateId root="10.29.840.1.786687...4.2" /> <id nullFlavor="NA" /> <code codeSystem="local" code="RBC" displayName="RBC" /> <statusCode code="completed" /> < effectiveTime value="243702107953" /> <value unit="10*6/uL" xsi:type= "PQ" value="3.81" /> <interpretationCode codeSystem="local" code="*" / > <referenceRange> <observationRange> <text> 4.60-6.20</text> </observationRange> </referenceRange> </observation> </component> <component> <observation moodCode="EVN" classCode="OBS"> <templateId root= "16.840.1.001600.102022.4.2" /> <id nullFlavor="NA" /> < code codeSystem="local" code="RDW" displayName="RDW" /> <statusCode code="completed" /> <effectiveTime value="107421051580" /> < value unit="%" xsi:type="PQ" value="16.1" /> <interpretationCode codeSystem="local" code="*" /> <referenceRange> < observationRange> <text>11.5-14.5</text> </ observationRange> </referenceRange> </observation> </ component> <component> <observation moodCode="EVN" classCode="OBS"> <templateId root="16.840.1.346041.102022.4.2" /> <id nullFlavor="NA" /> <code codeSystem="local" code="WBCIR" displayName= "WBC" /> <statusCode code="completed" /> <effectiveTime value= "745818195169" /> <value unit="K/uL" xsi:type="PQ" value="9.1" /> <referenceRange> <observationRange> <text>4.8-10.8< /text> </observationRange> </referenceRange> </ observation> </component> </organizer> </entry> <entry> <organizer moodCode="EVN" classCode="BATTERY"> <templateId root= "16.840.1.662072.10..4.1" /> <id nullFlavor="NA" /> <code codeSystem="local" code="MG" displayName="Magnesium" /> <statusCode code= "completed" /> <component> <observation moodCode="EVN" classCode= "OBS"> <templateId root="840.1.788433.07.02.22.4.2" /> < id nullFlavor="NA" /> <code codeSystem="local" code="MG" displayName= "Magnesium" /> <statusCode code="completed" /> <effectiveTime value="" /> <value unit="mg/dL" xsi:type="PQ" value="2.0" / > <referenceRange> <observationRange> <text>1.8 -2.5</text> </observationRange> </referenceRange> </ observation> </component> </organizer> </entry> <entry> <organizer moodCode="EVN" classCode="BATTERY"> <templateId root= "10.29.840.1.422701.07.02.22.4.1" /> <id nullFlavor="NA" /> <code codeSystem="local" code="RENAL" displayName="Renal Function Panel" /> < statusCode code="completed" /> <component> <observation moodCode= "EVN" classCode="OBS"> <templateId root="10.29.840.1.791547.07.02.22.4.2 " /> <id nullFlavor="NA" /> <code codeSystem="local" code="ALB " displayName="Albumin" /> <statusCode code="completed" /> < effectiveTime value="" /> <value unit="g/dL" xsi:type="PQ" value="2.8" /> <interpretationCode codeSystem="local" code="*" /> <referenceRange> <observationRange> <text>3.5-4.8</ text> </observationRange> </referenceRange> </ observation> </component> <component> <observation moodCode= "EVN" classCode="OBS"> <templateId root="10.29.840.1.743170.10...4.2 " /> <id nullFlavor="NA" /> <code codeSystem="local" code= "AGAP" displayName="Anion Gap" /> <statusCode code="completed" /> <effectiveTime value="" /> <value unit="mEq/L" xsi: type="PQ" value="9" /> <referenceRange> <observationRange> <text>3-20</text> </observationRange> </ referenceRange> </observation> </component> <component> <observation moodCode="EVN" classCode="OBS"> <templateId root= "840.1.620583.10...4.2" /> <id nullFlavor="NA" /> < code codeSystem="local" code="BUN" displayName="BUN" /> <statusCode code="completed" /> <effectiveTime value="700149381511" /> < value unit="mg/dL" xsi:type="PQ" value="23" /> <interpretationCode codeSystem="local" code="*" /> <referenceRange> < observationRange> <text>4-20</text> </observationRange> </referenceRange> </observation> </component> < component> <observation moodCode="EVN" classCode="OBS"> < templateId root="10.29.840.1.990547.10.20.22.4.2" /> <id nullFlavor="NA " /> <code codeSystem="local" code="CA" displayName="Calcium" /> <statusCode code="completed" /> <effectiveTime value="648259520463 " /> <value unit="mg/dL" xsi:type="PQ" value="7.7" /> < interpretationCode codeSystem="local" code="*" /> <referenceRange> <observationRange> <text>8.6-10.0</text> </ observationRange> </referenceRange> </observation> </ component> <component> <observation moodCode="EVN" classCode="OBS"> <templateId root="216.840.1.965543.10..22.4.2" /> <id nullFlavor="NA" /> <code codeSystem="local" code="CL" displayName= "Chloride" /> <statusCode code="completed" /> <effectiveTime value="" /> <value unit="mEq/L" xsi:type="PQ" value="99" / > <referenceRange> <observationRange> <text>99- 109</text> </observationRange> </referenceRange> </ observation> </component> <component> <observation moodCode= "EVN" classCode="OBS"> <templateId root="10.29.840.1.871855.10.20.22.4.2 " /> <id nullFlavor="NA" /> <code codeSystem="local" code="CO2 " displayName="CO2" /> <statusCode code="completed" /> < effectiveTime value="098805446959" /> <value unit="mEq/L" xsi:type="PQ " value="26" /> <referenceRange> <observationRange> <text>22-32</text> </observationRange> </ referenceRange> </observation> </component> <component> <observation moodCode="EVN" classCode="OBS"> <templateId root= "16.840.1.880068.10.20.22.4.2" /> <id nullFlavor="NA" /> < code codeSystem="local" code="CREAT" displayName="Creatinine" /> < statusCode code="completed" /> <effectiveTime value="026838898701" /> <value unit="mg/dL" xsi:type="PQ" value="1.40" /> < interpretationCode codeSystem="local" code="*" /> <referenceRange> <observationRange> <text>0.64-1.27</text> </ observationRange> </referenceRange> </observation> </ component> <component> <observation moodCode="EVN" classCode="OBS"> <templateId root="10.29.840.1.871976.10..22.4.2" /> <id nullFlavor="NA" /> <code codeSystem="local" code="GLU" displayName= "Glucose" /> <statusCode code="completed" /> <effectiveTime value="594581622855" /> <value unit="mg/dL" xsi:type="PQ" value="127" / > <interpretationCode codeSystem="local" code="*" /> < referenceRange> <observationRange> <text>70-100</text> </observationRange> </referenceRange> </observation> </component> <component> <observation moodCode="EVN" classCode ="OBS"> <templateId root="10.29.840.1.515584.10.20.22.4.2" /> < id nullFlavor="NA" /> <code codeSystem="local" code="PHOS" displayName= "Phosphorus" /> <statusCode code="completed" /> < effectiveTime value="182608446929" /> <value unit="mg/dL" xsi:type="PQ " value="2.7" /> <referenceRange> <observationRange> <text>2.4-4.7</text> </observationRange> </ referenceRange> </observation> </component> <component> <observation moodCode="EVN" classCode="OBS"> <templateId root= "16.840.1.855085.10..22.4.2" /> <id nullFlavor="NA" /> < code codeSystem="local" code="K" displayName="Potassium" /> < statusCode code="completed" /> <effectiveTime value="735416544635" /> <value unit="mEq/L" xsi:type="PQ" value="3.5" /> < interpretationCode codeSystem="local" code="*" /> <referenceRange> <observationRange> <text>3.6-5.1</text> </ observationRange> </referenceRange> </observation> </ component> <component> <observation moodCode="EVN" classCode="OBS"> <templateId root="16.840.1.465762.10...4.2" /> <id nullFlavor="NA" /> <code codeSystem="local" code="NA" displayName= "Sodium" /> <statusCode code="completed" /> <effectiveTime value="529467216335" /> <value unit="mEq/L" xsi:type="PQ" value="134" / > <interpretationCode codeSystem="local" code="*" /> < referenceRange> <observationRange> <text>136-144</text> </observationRange> </referenceRange> </observation > </component> </organizer> </entry> <entry> <organizer moodCode= "EVN" classCode="BATTERY"> <templateId root="216.840.1.396458.10..22.4.1 " /> <id nullFlavor="NA" /> <code codeSystem="local" code="GFR" displayName="eGFR" /> <statusCode code="completed" /> <component> <observation moodCode="EVN" classCode="OBS"> <templateId root= "840.1.024909.10.4.2" /> <id nullFlavor="NA" /> < code codeSystem="local" code="GFR" displayName="eGFR" /> <statusCode code="completed" /> <effectiveTime value="605409327643" /> < value unit="mL/min" xsi:type="PQ" value="54" /> <interpretationCode codeSystem="local" code="*" /> <referenceRange> < observationRange> <text>>60</text> </observationRange > </referenceRange> </observation> </component> </ organizer> </entry> <entry> <organizer moodCode="EVN" classCode="BATTERY"> <templateId root="840.1.035059.07.02.22.4.1" /> <id nullFlavor= "NA" /> <code codeSystem="local" code="GLUN" displayName="Glucose NPT" /> <statusCode code="completed" /> <component> <observation moodCode="EVN" classCode="OBS"> <templateId root= "840.1.673621.07.02.22.4.2" /> <id nullFlavor="NA" /> < code codeSystem="local" code="GLUN" displayName="Glucose NPT" /> < statusCode code="completed" /> <effectiveTime value="310218360596" /> <value unit="mg/dL" xsi:type="PQ" value="142" /> < interpretationCode codeSystem="local" code="*" /> <referenceRange> <observationRange> <text>70-100</text> </ observationRange> </referenceRange> </observation> </ component> </organizer> </entry> <entry> <organizer moodCode="EVN" classCode="BATTERY"> <templateId root="10.29.840.1.171583.10..4.1" /> <id nullFlavor="NA" /> <code codeSystem="local" code="GLUN" displayName="Glucose NPT" /> <statusCode code="completed" /> < component> <observation moodCode="EVN" classCode="OBS"> < templateId root="840.1.349517.07.02.22.4.2" /> <id nullFlavor="NA " /> <code codeSystem="local" code="GLUN" displayName="Glucose NPT" / > <statusCode code="completed" /> <effectiveTime value= "644610494261" /> <value unit="mg/dL" xsi:type="PQ" value="131" /> <interpretationCode codeSystem="local" code="*" /> < referenceRange> <observationRange> <text>70-100</text> </observationRange> </referenceRange> </observation> </component> </organizer> </entry> <entry> <organizer moodCode= "EVN" classCode="BATTERY"> <templateId root="10.29.840.1.861201.07.02.22.4.1 " /> <id nullFlavor="NA" /> <code codeSystem="local" code="GLUN" displayName="Glucose NPT" /> <statusCode code="completed" /> < component> <observation moodCode="EVN" classCode="OBS"> < templateId root="10.29.840.1.397223.10.22.4.2" /> <id nullFlavor="NA " /> <code codeSystem="local" code="GLUN" displayName="Glucose NPT" / > <statusCode code="completed" /> <effectiveTime value= "651453553635" /> <value unit="mg/dL" xsi:type="PQ" value="183" /> <interpretationCode codeSystem="local" code="*" /> < referenceRange> <observationRange> <text>70-100</text> </observationRange> </referenceRange> </observation> </component> </organizer> </entry> <entry> <organizer moodCode= "EVN" classCode="BATTERY"> <templateId root="216.840.1.273157.10..4.1 " /> <id nullFlavor="NA" /> <code codeSystem="local" code="GLUN" displayName="Glucose NPT" /> <statusCode code="completed" /> < component> <observation moodCode="EVN" classCode="OBS"> < templateId root="216.840.1.594410.10..22.4.2" /> <id nullFlavor="NA " /> <code codeSystem="local" code="GLUN" displayName="Glucose NPT" / > <statusCode code="completed" /> <effectiveTime value= "997279796810" /> <value unit="mg/dL" xsi:type="PQ" value="176" /> <interpretationCode codeSystem="local" code="*" /> < referenceRange> <observationRange> <text>70-100</text> </observationRange> </referenceRange> </observation> </component> </organizer> </entry> <entry> <organizer moodCode= "EVN" classCode="BATTERY"> <templateId root="216.840.1.435496.10.22.4.1 " /> <id nullFlavor="NA" /> <code codeSystem="local" code="CBCND" displayName="CBC With Platelet No Differential" /> <statusCode code= "completed" /> <component> <observation moodCode="EVN" classCode= "OBS"> <templateId root="216.840.1.763673.10..22.4.2" /> < id nullFlavor="NA" /> <code codeSystem="local" code="HCT" displayName= "HCT" /> <statusCode code="completed" /> <effectiveTime value= "891116658013" /> <value unit="%" xsi:type="PQ" value="35.0" /> <interpretationCode codeSystem="local" code="*" /> < referenceRange> <observationRange> <text>42.0-52.0</text > </observationRange> </referenceRange> </observation > </component> <component> <observation moodCode="EVN" classCode="OBS"> <templateId root="10.29.840.1.092317.10..4.2" /> <id nullFlavor="NA" /> <code codeSystem="local" code="HGB" displayName="HGB" /> <statusCode code="completed" /> < effectiveTime value="505589147322" /> <value unit="g/dL" xsi:type="PQ" value="11.4" /> <interpretationCode codeSystem="local" code="*" /> <referenceRange> <observationRange> <text>14.0- 18.0</text> </observationRange> </referenceRange> </ observation> </component> <component> <observation moodCode= "EVN" classCode="OBS"> <templateId root="16.840.1.419559.10.20.22.4.2 " /> <id nullFlavor="NA" /> <code codeSystem="local" code="MCH " displayName="MCH" /> <statusCode code="completed" /> < effectiveTime value="151361010791" /> <value unit="pg" xsi:type="PQ" value="29.3" /> <referenceRange> <observationRange> <text>27.0-32.0</text> </observationRange> </ referenceRange> </observation> </component> <component> <observation moodCode="EVN" classCode="OBS"> <templateId root= "216.840.1.837075.10...4.2" /> <id nullFlavor="NA" /> < code codeSystem="local" code="MCHC" displayName="MCHC" /> <statusCode code="completed" /> <effectiveTime value="087502915083" /> < value unit="g/dL" xsi:type="PQ" value="32.6" /> <referenceRange> <observationRange> <text>32.0-36.0</text> </ observationRange> </referenceRange> </observation> </ component> <component> <observation moodCode="EVN" classCode="OBS"> <templateId root="216.840.1.558153.10..22.4.2" /> <id nullFlavor="NA" /> <code codeSystem="local" code="MCV" displayName="MCV " /> <statusCode code="completed" /> <effectiveTime value= "304264394191" /> <value unit="fL" xsi:type="PQ" value="90.0" /> <referenceRange> <observationRange> <text>82.0-99.0< /text> </observationRange> </referenceRange> </ observation> </component> <component> <observation moodCode= "EVN" classCode="OBS"> <templateId root="10.29.840.1.673695.10.22.4.2 " /> <id nullFlavor="NA" /> <code codeSystem="local" code="MPV " displayName="MPV" /> <statusCode code="completed" /> < effectiveTime value="662384037047" /> <value unit="fL" xsi:type="PQ" value="11.7" /> <referenceRange> <observationRange> <text>9.4-12.3</text> </observationRange> </ referenceRange> </observation> </component> <component> <observation moodCode="EVN" classCode="OBS"> <templateId root= "840.1.789721.07.02.22.4.2" /> <id nullFlavor="NA" /> < code codeSystem="local" code="PLT" displayName="Platelet Count" /> < statusCode code="completed" /> <effectiveTime value="708452295894" /> <value unit="K/uL" xsi:type="PQ" value="147" /> < interpretationCode codeSystem="local" code="*" /> <referenceRange> <observationRange> <text>150-400</text> </ observationRange> </referenceRange> </observation> </ component> <component> <observation moodCode="EVN" classCode="OBS"> <templateId root="10.29.840.1.992887.10.2022.4.2" /> <id nullFlavor="NA" /> <code codeSystem="local" code="RBC" displayName="RBC " /> <statusCode code="completed" /> <effectiveTime value= "162796173474" /> <value unit="10*6/uL" xsi:type="PQ" value="3.89" /> <interpretationCode codeSystem="local" code="*" /> < referenceRange> <observationRange> <text>4.60-6.20</text > </observationRange> </referenceRange> </observation > </component> <component> <observation moodCode="EVN" classCode="OBS"> <templateId root="216.840.1.661570.10..4.2" /> <id nullFlavor="NA" /> <code codeSystem="local" code="RDW" displayName="RDW" /> <statusCode code="completed" /> < effectiveTime value="863894410006" /> <value unit="%" xsi:type="PQ " value="17.2" /> <interpretationCode codeSystem="local" code="*" /> <referenceRange> <observationRange> <text>11.5- 14.5</text> </observationRange> </referenceRange> </ observation> </component> <component> <observation moodCode= "EVN" classCode="OBS"> <templateId root="16.840.1.888541.07.02.22.4.2 " /> <id nullFlavor="NA" /> <code codeSystem="local" code= "WBCIR" displayName="WBC" /> <statusCode code="completed" /> < effectiveTime value="517645786043" /> <value unit="K/uL" xsi:type="PQ" value="12.6" /> <interpretationCode codeSystem="local" code="*" /> <referenceRange> <observationRange> <text>4.8-10.8 </text> </observationRange> </referenceRange> </ observation> </component> </organizer> </entry> <entry> <organizer moodCode="EVN" classCode="BATTERY"> <templateId root= "216.840.1.205644.07.02.22.4.1" /> <id nullFlavor="NA" /> <code codeSystem="local" code="RENAL" displayName="Renal Function Panel" /> < statusCode code="completed" /> <component> <observation moodCode= "EVN" classCode="OBS"> <templateId root="16.840.1.911149.10...4.2 " /> <id nullFlavor="NA" /> <code codeSystem="local" code="ALB " displayName="Albumin" /> <statusCode code="completed" /> < effectiveTime value="422005333069" /> <value unit="g/dL" xsi:type="PQ" value="2.6" /> <interpretationCode codeSystem="local" code="*" /> <referenceRange> <observationRange> <text>3.5-4.8</ text> </observationRange> </referenceRange> </ observation> </component> <component> <observation moodCode= "EVN" classCode="OBS"> <templateId root="10.29.840.1.132805.07.02.22.4.2 " /> <id nullFlavor="NA" /> <code codeSystem="local" code= "AGAP" displayName="Anion Gap" /> <statusCode code="completed" /> <effectiveTime value="481843721181" /> <value unit="mEq/L" xsi: type="PQ" value="9" /> <referenceRange> <observationRange> <text>3-20</text> </observationRange> </ referenceRange> </observation> </component> <component> <observation moodCode="EVN" classCode="OBS"> <templateId root= "16.840.1.057360.10..22.4.2" /> <id nullFlavor="NA" /> < code codeSystem="local" code="BUN" displayName="BUN" /> <statusCode code="completed" /> <effectiveTime value="647614084724" /> < value unit="mg/dL" xsi:type="PQ" value="22" /> <interpretationCode codeSystem="local" code="*" /> <referenceRange> < observationRange> <text>4-20</text> </observationRange> </referenceRange> </observation> </component> < component> <observation moodCode="EVN" classCode="OBS"> < templateId root="2.16.840.1.498950.10...4.2" /> <id nullFlavor="NA " /> <code codeSystem="local" code="CA" displayName="Calcium" /> <statusCode code="completed" /> <effectiveTime value="781050185439 " /> <value unit="mg/dL" xsi:type="PQ" value="7.8" /> < interpretationCode codeSystem="local" code="*" /> <referenceRange> <observationRange> <text>8.6-10.0</text> </ observationRange> </referenceRange> </observation> </ component> <component> <observation moodCode="EVN" classCode="OBS"> <templateId root="216.840.1.790912...22.4.2" /> <id nullFlavor="NA" /> <code codeSystem="local" code="CL" displayName= "Chloride" /> <statusCode code="completed" /> <effectiveTime value="535263532879" /> <value unit="mEq/L" xsi:type="PQ" value="97" / > <interpretationCode codeSystem="local" code="*" /> < referenceRange> <observationRange> <text>99-109</text> </observationRange> </referenceRange> </observation> </component> <component> <observation moodCode="EVN" classCode ="OBS"> <templateId root="216.840.1.969558.10..4.2" /> < id nullFlavor="NA" /> <code codeSystem="local" code="CO2" displayName= "CO2" /> <statusCode code="completed" /> <effectiveTime value= "204688265498" /> <value unit="mEq/L" xsi:type="PQ" value="26" /> <referenceRange> <observationRange> <text>22-32</ text> </observationRange> </referenceRange> </ observation> </component> <component> <observation moodCode= "EVN" classCode="OBS"> <templateId root="216.840.1.617046.07.02.224.2 " /> <id nullFlavor="NA" /> <code codeSystem="local" code= "CREAT" displayName="Creatinine" /> <statusCode code="completed" /> <effectiveTime value="910225798144" /> <value unit="mg/dL" xsi: type="PQ" value="1.31" /> <interpretationCode codeSystem="local" code= "*" /> <referenceRange> <observationRange> < text>0.64-1.27</text> </observationRange> </referenceRange> </observation> </component> <component> <observation moodCode="EVN" classCode="OBS"> <templateId root= "16.840.1.613612.10.4.2" /> <id nullFlavor="NA" /> < code codeSystem="local" code="GLU" displayName="Glucose" /> < statusCode code="completed" /> <effectiveTime value="586279477440" /> <value unit="mg/dL" xsi:type="PQ" value="116" /> < interpretationCode codeSystem="local" code="*" /> <referenceRange> <observationRange> <text>70-100</text> </ observationRange> </referenceRange> </observation> </ component> <component> <observation moodCode="EVN" classCode="OBS"> <templateId root="10.29.840.1.778288.22.4.2" /> <id nullFlavor="NA" /> <code codeSystem="local" code="PHOS" displayName= "Phosphorus" /> <statusCode code="completed" /> < effectiveTime value="582942237709" /> <value unit="mg/dL" xsi:type="PQ " value="3.0" /> <referenceRange> <observationRange> <text>2.4-4.7</text> </observationRange> </ referenceRange> </observation> </component> <component> <observation moodCode="EVN" classCode="OBS"> <templateId root= "10.29.840.1.779775.07.02.22.4.2" /> <id nullFlavor="NA" /> < code codeSystem="local" code="K" displayName="Potassium" /> < statusCode code="completed" /> <effectiveTime value="602481995639" /> <value unit="mEq/L" xsi:type="PQ" value="3.6" /> < referenceRange> <observationRange> <text>3.6-5.1</text> </observationRange> </referenceRange> </observation > </component> <component> <observation moodCode="EVN" classCode="OBS"> <templateId root="10.29.840.1.571889.22.4.2" /> <id nullFlavor="NA" /> <code codeSystem="local" code="NA" displayName="Sodium" /> <statusCode code="completed" /> < effectiveTime value="369875771776" /> <value unit="mEq/L" xsi:type="PQ " value="132" /> <interpretationCode codeSystem="local" code="*" /> <referenceRange> <observationRange> <text>136-144 </text> </observationRange> </referenceRange> </ observation> </component> </organizer> </entry> <entry> <organizer moodCode="EVN" classCode="BATTERY"> <templateId root= "16.840.1.165199.10..22.4.1" /> <id nullFlavor="NA" /> <code codeSystem="local" code="GFR" displayName="eGFR" /> <statusCode code= "completed" /> <component> <observation moodCode="EVN" classCode= "OBS"> <templateId root="16.840.1.482340.10.20.22.4.2" /> < id nullFlavor="NA" /> <code codeSystem="local" code="GFR" displayName= "eGFR" /> <statusCode code="completed" /> <effectiveTime value ="804630147138" /> <value unit="mL/min" xsi:type="PQ" value="58" /> <interpretationCode codeSystem="local" code="*" /> < referenceRange> <observationRange> <text>>60</text> </observationRange> </referenceRange> </observation> </component> </organizer> </entry> <entry> <organizer moodCode= "EVN" classCode="BATTERY"> <templateId root="16.840.1.752914.10.20.22.4.1 " /> <id nullFlavor="NA" /> <code codeSystem="local" code="GLUN" displayName="Glucose NPT" /> <statusCode code="completed" /> < component> <observation moodCode="EVN" classCode="OBS"> < templateId root="10.29.840.1.961079.10.4.2" /> <id nullFlavor="NA " /> <code codeSystem="local" code="GLUN" displayName="Glucose NPT" / > <statusCode code="completed" /> <effectiveTime value= "587742989840" /> <value unit="mg/dL" xsi:type="PQ" value="124" /> <interpretationCode codeSystem="local" code="*" /> < referenceRange> <observationRange> <text>70-100</text> </observationRange> </referenceRange> </observation> </component> </organizer> </entry> <entry> <organizer moodCode= "EVN" classCode="BATTERY"> <templateId root="840.1.075291.10.4.1 " /> <id nullFlavor="NA" /> <code codeSystem="local" code="RPR" displayName="RPR" /> <statusCode code="completed" /> <component> <observation moodCode="EVN" classCode="OBS"> <templateId root= "10.29.840.1.120560.10.4.2" /> <id nullFlavor="NA" /> < code codeSystem="local" code="RPR" displayName="RPR" /> <statusCode code="completed" /> <effectiveTime value="366842941636" /> < value unit="NA" xsi:type="PQ" value="Non-reactive" /> <referenceRange> <observationRange> <text /> </ observationRange> </referenceRange> </observation> </ component> </organizer> </entry> <entry> <organizer moodCode="EVN" classCode="BATTERY"> <templateId root="10.29.840.1.972484.10..4.1" /> <id nullFlavor="NA" /> <code codeSystem="local" code="QUATB" displayName="Quantiferon TB Test" /> <statusCode code="completed" /> < component> <observation moodCode="EVN" classCode="OBS"> < templateId root="10.29.840.1.985757.07.02.22.4.2" /> <id nullFlavor="NA " /> <code codeSystem="local" code="QUATB" displayName="Quantiferon TB Test" /> <statusCode code="completed" /> <effectiveTime value= "337505033294" /> <value unit="NA" xsi:type="PQ" value="Negative" /> <referenceRange> <observationRange> <text> Negative</text> </observationRange> </referenceRange> </observation> </component> </organizer> </entry> <entry> < organizer moodCode="EVN" classCode="BATTERY"> <templateId root= "10.29.840.1.540511.07.02.22.4.1" /> <id nullFlavor="NA" /> <code codeSystem="local" code="B12FO" displayName="B12 and Folate" /> < statusCode code="completed" /> <component> <observation moodCode= "EVN" classCode="OBS"> <templateId root="10.29.840.1.156092.07.02.22.4.2 " /> <id nullFlavor="NA" /> <code codeSystem="local" code= "FOLAT" displayName="Folate" /> <statusCode code="completed" /> <effectiveTime value="126531613414" /> <value unit="ng/mL" xsi:type= "PQ" value="9.6" /> <referenceRange> <observationRange> <text>7.0-31.4</text> </observationRange> </ referenceRange> </observation> </component> <component> <observation moodCode="EVN" classCode="OBS"> <templateId root= "10.29.840.1.784827.07.02.22.4.2" /> <id nullFlavor="NA" /> < code codeSystem="local" code="B12" displayName="Vitamin B12" /> < statusCode code="completed" /> <effectiveTime value="525287355658" /> <value unit="pg/mL" xsi:type="PQ" value="969" /> < interpretationCode codeSystem="local" code="*" /> <referenceRange> <observationRange> <text>213-816</text> </ observationRange> </referenceRange> </observation> </ component> </organizer> </entry> <entry> <organizer moodCode="EVN" classCode="BATTERY"> <templateId root="10.29.840.1.421908.07.02.22.4.1" /> <id nullFlavor="NA" /> <code codeSystem="local" code="TSHR" displayName="TSH with Reflex Free T4" /> <statusCode code="completed" /> <component> <observation moodCode="EVN" classCode="OBS"> < templateId root="10.29.840.1.887716.07.02.22.4.2" /> <id nullFlavor="NA " /> <code codeSystem="local" code="TSHR" displayName="TSH with Reflex Free T4" /> <statusCode code="completed" /> <effectiveTime value="332750383487" /> <value unit="uIU/mL" xsi:type="PQ" value="3.79 " /> <referenceRange> <observationRange> <text> 0.35-4.94</text> </observationRange> </referenceRange> </observation> </component> </organizer> </entry> <entry> < organizer moodCode="EVN" classCode="BATTERY"> <templateId root= "16.840.1.995182.10.22.4.1" /> <id nullFlavor="NA" /> <code codeSystem="local" code="ZG999" displayName="Toxoplasma IgG and IgM" /> < statusCode code="completed" /> <component> <observation moodCode= "EVN" classCode="OBS"> <templateId root="216.840.1.690191.10..4.2 " /> <id nullFlavor="NA" /> <code codeSystem="local" code= "Z5920" displayName="Toxoplasma Ab IgG" /> <statusCode code="completed " /> <effectiveTime value="108601144101" /> <value unit="NA" xsi:type="PQ" value="Negative" /> <referenceRange> < observationRange> <text>Negative</text> </ observationRange> </referenceRange> </observation> </ component> <component> <observation moodCode="EVN" classCode="OBS"> <templateId root="16.840.1.020310.10.22.4.2" /> <id nullFlavor="NA" /> <code codeSystem="local" code="Z6238" displayName= "Toxoplasma IgG Value" /> <statusCode code="completed" /> < effectiveTime value="773775064638" /> <value unit="IU/mL" xsi:type="PQ " value="<3" /> <referenceRange> <observationRange> <text /> </observationRange> </referenceRange> </observation> </component> </organizer> </entry> <entry> < organizer moodCode="EVN" classCode="BATTERY"> <templateId root= "10.29.840.1.737542.10..4.1" /> <id nullFlavor="NA" /> <code codeSystem="local" code="GLUN" displayName="Glucose NPT" /> <statusCode code="completed" /> <component> <observation moodCode="EVN" classCode="OBS"> <templateId root="840.1.708293.07.02.22.4.2" /> <id nullFlavor="NA" /> <code codeSystem="local" code="GLUN" displayName="Glucose NPT" /> <statusCode code="completed" /> <effectiveTime value="772132275601" /> <value unit="mg/dL" xsi:type="PQ " value="118" /> <interpretationCode codeSystem="local" code="*" /> <referenceRange> <observationRange> <text>70-100< /text> </observationRange> </referenceRange> </ observation> </component> </organizer> </entry> <entry> <organizer moodCode="EVN" classCode="BATTERY"> <templateId root= "10.29.840.1.246137.07.02.22.4.1" /> <id nullFlavor="NA" /> <code codeSystem="local" code="CBCWD" displayName="CBC With Platelet and Differential " /> <statusCode code="completed" /> <component> <observation moodCode="EVN" classCode="OBS"> <templateId root= "10.29.840.1.739263.07.02.22.4.2" /> <id nullFlavor="NA" /> < code codeSystem="local" code="ABASR" displayName="Absolute Basophils" /> <statusCode code="completed" /> <effectiveTime value="" /> <value unit="10*3/uL" xsi:type="PQ" value="0.01" /> < referenceRange> <observationRange> <text>0.00-0.20</text > </observationRange> </referenceRange> </observation > </component> <component> <observation moodCode="EVN" classCode="OBS"> <templateId root="2.16.840.1.820244.10...4.2" /> <id nullFlavor="NA" /> <code codeSystem="local" code="AEOSR" displayName="Absolute Eosinophils" /> <statusCode code="completed" /> <effectiveTime value="" /> <value unit="10*3/uL" xsi:type="PQ" value="0.75" /> <interpretationCode codeSystem="local" code="*" /> <referenceRange> <observationRange> <text>0.00-0.50</text> </observationRange> </ referenceRange> </observation> </component> <component> <observation moodCode="EVN" classCode="OBS"> <templateId root= "216.840.1.386561.10..4.2" /> <id nullFlavor="NA" /> < code codeSystem="local" code="ALYMR" displayName="Absolute Lymphocytes" /> <statusCode code="completed" /> <effectiveTime value=" " /> <value unit="10*3/uL" xsi:type="PQ" value="1.65" /> < referenceRange> <observationRange> <text>0.80-3.30</text > </observationRange> </referenceRange> </observation > </component> <component> <observation moodCode="EVN" classCode="OBS"> <templateId root="10.29.840.1.963362.1022.4.2" /> <id nullFlavor="NA" /> <code codeSystem="local" code="AMONR" displayName="Absolute Monocytes" /> <statusCode code="completed" /> <effectiveTime value="" /> <value unit="10*3/uL" xsi :type="PQ" value="2.16" /> <interpretationCode codeSystem="local" code= "*" /> <referenceRange> <observationRange> < text>0.30-1.00</text> </observationRange> </referenceRange> </observation> </component> <component> <observation moodCode="EVN" classCode="OBS"> <templateId root= "840.1.429547.07.02.22.4.2" /> <id nullFlavor="NA" /> < code codeSystem="local" code="ASEGR" displayName="Absolute Neutrophils" /> <statusCode code="completed" /> <effectiveTime value=" " /> <value unit="10*3/uL" xsi:type="PQ" value="7.86" /> < interpretationCode codeSystem="local" code="*" /> <referenceRange> <observationRange> <text>1.90-7.00</text> </ observationRange> </referenceRange> </observation> </ component> <component> <observation moodCode="EVN" classCode="OBS"> <templateId root="10.29.840.1.283555.102022.4.2" /> <id nullFlavor="NA" /> <code codeSystem="local" code="BASOR" displayName= "Basophils" /> <statusCode code="completed" /> <effectiveTime value="639988227455" /> <value unit="%" xsi:type="PQ" value="0" /> <referenceRange> <observationRange> <text>0-2< /text> </observationRange> </referenceRange> </ observation> </component> <component> <observation moodCode= "EVN" classCode="OBS"> <templateId root="216.840.1.837921.10.20.22.4.2 " /> <id nullFlavor="NA" /> <code codeSystem="local" code= "EOSR" displayName="Eosinophils" /> <statusCode code="completed" /> <effectiveTime value="282696155470" /> <value unit="%" xsi: type="PQ" value="6" /> <interpretationCode codeSystem="local" code="*" /> <referenceRange> <observationRange> <text>0- 4</text> </observationRange> </referenceRange> </ observation> </component> <component> <observation moodCode= "EVN" classCode="OBS"> <templateId root="2.16.840.1.812889.10.20.22.4.2 " /> <id nullFlavor="NA" /> <code codeSystem="local" code="HCT " displayName="HCT" /> <statusCode code="completed" /> < effectiveTime value="707982217600" /> <value unit="%" xsi:type="PQ " value="34.8" /> <interpretationCode codeSystem="local" code="*" /> <referenceRange> <observationRange> <text>42.0- 52.0</text> </observationRange> </referenceRange> </ observation> </component> <component> <observation moodCode= "EVN" classCode="OBS"> <templateId root="16.840.1.609661.10.20.22.4.2 " /> <id nullFlavor="NA" /> <code codeSystem="local" code="HGB " displayName="HGB" /> <statusCode code="completed" /> < effectiveTime value="470290198968" /> <value unit="g/dL" xsi:type="PQ" value="11.3" /> <interpretationCode codeSystem="local" code="*" /> <referenceRange> <observationRange> <text>14.0- 18.0</text> </observationRange> </referenceRange> </ observation> </component> <component> <observation moodCode= "EVN" classCode="OBS"> <templateId root="10.29.840.1.945547.07.02.22.4.2 " /> <id nullFlavor="NA" /> <code codeSystem="local" code= "IMGA" displayName="Immature Granulocytes" /> <statusCode code= "completed" /> <effectiveTime value="" /> <value unit="%" xsi:type="PQ" value="0.6" /> <referenceRange> < observationRange> <text>0.0-1.0</text> </ observationRange> </referenceRange> </observation> </ component> <component> <observation moodCode="EVN" classCode="OBS"> <templateId root="10.29.840.1.575453.10.20.22.4.2" /> <id nullFlavor="NA" /> <code codeSystem="local" code="LYMPR" displayName= "Lymphocytes" /> <statusCode code="completed" /> < effectiveTime value="002080295986" /> <value unit="%" xsi:type="PQ " value="13" /> <interpretationCode codeSystem="local" code="*" /> <referenceRange> <observationRange> <text>20-46</ text> </observationRange> </referenceRange> </ observation> </component> <component> <observation moodCode= "EVN" classCode="OBS"> <templateId root="16.840.1.747389.10.20.22.4.2 " /> <id nullFlavor="NA" /> <code codeSystem="local" code="MCH " displayName="MCH" /> <statusCode code="completed" /> < effectiveTime value="" /> <value unit="pg" xsi:type="PQ" value="29.4" /> <referenceRange> <observationRange> <text>27.0-32.0</text> </observationRange> </ referenceRange> </observation> </component> <component> <observation moodCode="EVN" classCode="OBS"> <templateId root= "840.1.404351.1022.4.2" /> <id nullFlavor="NA" /> < code codeSystem="local" code="MCHC" displayName="MCHC" /> <statusCode code="completed" /> <effectiveTime value="670897165278" /> < value unit="g/dL" xsi:type="PQ" value="32.5" /> <referenceRange> <observationRange> <text>32.0-36.0</text> </ observationRange> </referenceRange> </observation> </ component> <component> <observation moodCode="EVN" classCode="OBS"> <templateId root="10.29.840.1.501825.10.20.22.4.2" /> <id nullFlavor="NA" /> <code codeSystem="local" code="MCV" displayName="MCV " /> <statusCode code="completed" /> <effectiveTime value= "226660611660" /> <value unit="fL" xsi:type="PQ" value="90.4" /> <referenceRange> <observationRange> <text>82.0-99.0< /text> </observationRange> </referenceRange> </ observation> </component> <component> <observation moodCode= "EVN" classCode="OBS"> <templateId root="10.29.840.1.533736.10.20.22.4.2 " /> <id nullFlavor="NA" /> <code codeSystem="local" code= "MONOR" displayName="Monocytes" /> <statusCode code="completed" /> <effectiveTime value="415770852396" /> <value unit="%" xsi: type="PQ" value="17" /> <interpretationCode codeSystem="local" code="* " /> <referenceRange> <observationRange> <text> 4-11</text> </observationRange> </referenceRange> </ observation> </component> <component> <observation moodCode= "EVN" classCode="OBS"> <templateId root="10.29.840.1.479727.10.20.22.4.2 " /> <id nullFlavor="NA" /> <code codeSystem="local" code="MPV " displayName="MPV" /> <statusCode code="completed" /> < effectiveTime value="533507188651" /> <value unit="fL" xsi:type="PQ" value="11.7" /> <referenceRange> <observationRange> <text>9.4-12.3</text> </observationRange> </ referenceRange> </observation> </component> <component> <observation moodCode="EVN" classCode="OBS"> <templateId root= "840.1.413373.10..4.2" /> <id nullFlavor="NA" /> < code codeSystem="local" code="SEGR" displayName="Neutrophils" /> < statusCode code="completed" /> <effectiveTime value="940852622060" /> <value unit="%" xsi:type="PQ" value="63" /> < referenceRange> <observationRange> <text>51-75</text> </observationRange> </referenceRange> </observation> </component> <component> <observation moodCode="EVN" classCode= "OBS"> <templateId root="216.840.1.854316.07.02.22.4.2" /> < id nullFlavor="NA" /> <code codeSystem="local" code="NRBCA" displayName ="Nucleated RBC Automated" /> <statusCode code="completed" /> <effectiveTime value="" /> <value unit="/100WBC" xsi:type= "PQ" value="0.3" /> <referenceRange> <observationRange> <text /> </observationRange> </referenceRange> </observation> </component> <component> <observation moodCode="EVN" classCode="OBS"> <templateId root= "216.840.1.707472.10.22.4.2" /> <id nullFlavor="NA" /> < code codeSystem="local" code="PLT" displayName="Platelet Count" /> < statusCode code="completed" /> <effectiveTime value="" /> <value unit="K/uL" xsi:type="PQ" value="126" /> < interpretationCode codeSystem="local" code="*" /> <referenceRange> <observationRange> <text>150-400</text> </ observationRange> </referenceRange> </observation> </ component> <component> <observation moodCode="EVN" classCode="OBS"> <templateId root="10.29.840.1.445858.1022.4.2" /> <id nullFlavor="NA" /> <code codeSystem="local" code="RBC" displayName="RBC " /> <statusCode code="completed" /> <effectiveTime value= "" /> <value unit="10*6/uL" xsi:type="PQ" value="3.85" /> <interpretationCode codeSystem="local" code="*" /> < referenceRange> <observationRange> <text>4.60-6.20</text > </observationRange> </referenceRange> </observation > </component> <component> <observation moodCode="EVN" classCode="OBS"> <templateId root="10.29.840.1.878289.07.02.22.4.2" /> <id nullFlavor="NA" /> <code codeSystem="local" code="RDW" displayName="RDW" /> <statusCode code="completed" /> < effectiveTime value="" /> <value unit="%" xsi:type="PQ " value="17.8" /> <interpretationCode codeSystem="local" code="*" /> <referenceRange> <observationRange> <text>11.5- 14.5</text> </observationRange> </referenceRange> </ observation> </component> <component> <observation moodCode= "EVN" classCode="OBS"> <templateId root="10.29.840.1.616298.2022.4.2 " /> <id nullFlavor="NA" /> <code codeSystem="local" code= "WBCIR" displayName="WBC" /> <statusCode code="completed" /> < effectiveTime value="544703696509" /> <value unit="K/uL" xsi:type="PQ" value="12.5" /> <interpretationCode codeSystem="local" code="*" /> <referenceRange> <observationRange> <text>4.8-10.8 </text> </observationRange> </referenceRange> </ observation> </component> </organizer> </entry> <entry> <organizer moodCode="EVN" classCode="BATTERY"> <templateId root= "216.840.1.189635.10..22.4.1" /> <id nullFlavor="NA" /> <code codeSystem="local" code="GLUN" displayName="Glucose NPT" /> <statusCode code="completed" /> <component> <observation moodCode="EVN" classCode="OBS"> <templateId root="216.840.1.225609.10..22.4.2" /> <id nullFlavor="NA" /> <code codeSystem="local" code="GLUN" displayName="Glucose NPT" /> <statusCode code="completed" /> <effectiveTime value="628748752542" /> <value unit="mg/dL" xsi:type="PQ " value="93" /> <referenceRange> <observationRange> <text>70-100</text> </observationRange> </ referenceRange> </observation> </component> </organizer> </entry > <entry> <organizer moodCode="EVN" classCode="BATTERY"> <templateId root="16.840.1.492775.10..22.4.1" /> <id nullFlavor="NA" /> <code codeSystem="local" code="MG" displayName="Magnesium" /> <statusCode code= "completed" /> <component> <observation moodCode="EVN" classCode= "OBS"> <templateId root="2.16.840.1.597789.10..22.4.2" /> < id nullFlavor="NA" /> <code codeSystem="local" code="MG" displayName= "Magnesium" /> <statusCode code="completed" /> <effectiveTime value="380153191259" /> <value unit="mg/dL" xsi:type="PQ" value="2.0" / > <referenceRange> <observationRange> <text>1.8 -2.5</text> </observationRange> </referenceRange> </ observation> </component> </organizer> </entry> <entry> <organizer moodCode="EVN" classCode="BATTERY"> <templateId root= "2.16.840.1.265245.10..22.4.1" /> <id nullFlavor="NA" /> <code codeSystem="local" code="PHOS" displayName="Phosphorus" /> <statusCode code ="completed" /> <component> <observation moodCode="EVN" classCode= "OBS"> <templateId root="2.16.840.1.593594.10..22.4.2" /> < id nullFlavor="NA" /> <code codeSystem="local" code="PHOS" displayName= "Phosphorus" /> <statusCode code="completed" /> < effectiveTime value="321265161764" /> <value unit="mg/dL" xsi:type="PQ " value="3.5" /> <referenceRange> <observationRange> <text>2.4-4.7</text> </observationRange> </ referenceRange> </observation> </component> </organizer> </entry > <entry> <organizer moodCode="EVN" classCode="BATTERY"> <templateId root="216.840.1.543394.10.22.4.1" /> <id nullFlavor="NA" /> <code codeSystem="local" code="CMP" displayName="Comprehensive Metabolic Panel (CMP)" /> <statusCode code="completed" /> <component> <observation moodCode="EVN" classCode="OBS"> <templateId root= "10.29.840.1.702714.07.02.22.4.2" /> <id nullFlavor="NA" /> < code codeSystem="local" code="ALB" displayName="Albumin" /> < statusCode code="completed" /> <effectiveTime value="239625235575" /> <value unit="g/dL" xsi:type="PQ" value="2.5" /> < interpretationCode codeSystem="local" code="*" /> <referenceRange> <observationRange> <text>3.5-4.8</text> </ observationRange> </referenceRange> </observation> </ component> <component> <observation moodCode="EVN" classCode="OBS"> <templateId root="16.840.1.397718.07.02.22.4.2" /> <id nullFlavor="NA" /> <code codeSystem="local" code="ALP" displayName= "Alkaline Phosphatase" /> <statusCode code="completed" /> < effectiveTime value="762882389728" /> <value unit="U/L" xsi:type="PQ" value="121" /> <interpretationCode codeSystem="local" code="*" /> <referenceRange> <observationRange> <text>26-104</ text> </observationRange> </referenceRange> </ observation> </component> <component> <observation moodCode= "EVN" classCode="OBS"> <templateId root="10.29.840.1.414091.10..22.4.2 " /> <id nullFlavor="NA" /> <code codeSystem="local" code="ALT " displayName="ALT (SGPT)" /> <statusCode code="completed" /> <effectiveTime value="" /> <value unit="U/L" xsi:type="PQ" value="275" /> <interpretationCode codeSystem="local" code="*" /> <referenceRange> <observationRange> <text>17-63</ text> </observationRange> </referenceRange> </ observation> </component> <component> <observation moodCode= "EVN" classCode="OBS"> <templateId root="840.1.681669.07.02.22.4.2 " /> <id nullFlavor="NA" /> <code codeSystem="local" code= "AGAP" displayName="Anion Gap" /> <statusCode code="completed" /> <effectiveTime value="" /> <value unit="mEq/L" xsi: type="PQ" value="9" /> <referenceRange> <observationRange> <text>3-20</text> </observationRange> </ referenceRange> </observation> </component> <component> <observation moodCode="EVN" classCode="OBS"> <templateId root= "10.29.840.1.753147.10...4.2" /> <id nullFlavor="NA" /> < code codeSystem="local" code="AST" displayName="AST (SGOT)" /> < statusCode code="completed" /> <effectiveTime value="" /> <value unit="U/L" xsi:type="PQ" value="101" /> < interpretationCode codeSystem="local" code="*" /> <referenceRange> <observationRange> <text>15-41</text> </ observationRange> </referenceRange> </observation> </ component> <component> <observation moodCode="EVN" classCode="OBS"> <templateId root="10.29.840.1.653273.10..4.2" /> <id nullFlavor="NA" /> <code codeSystem="local" code="BILIT" displayName= "Bilirubin Total" /> <statusCode code="completed" /> < effectiveTime value="" /> <value unit="mg/dL" xsi:type="PQ " value="2.3" /> <interpretationCode codeSystem="local" code="*" /> <referenceRange> <observationRange> <text>0.2-1.2 </text> </observationRange> </referenceRange> </ observation> </component> <component> <observation moodCode= "EVN" classCode="OBS"> <templateId root="840.1.179980.07.02.22.4.2 " /> <id nullFlavor="NA" /> <code codeSystem="local" code="BUN " displayName="BUN" /> <statusCode code="completed" /> < effectiveTime value="112933759744" /> <value unit="mg/dL" xsi:type="PQ " value="20" /> <referenceRange> <observationRange> <text>4-20</text> </observationRange> </referenceRange > </observation> </component> <component> <observation moodCode="EVN" classCode="OBS"> <templateId root= "10.29.840.1.890785...4.2" /> <id nullFlavor="NA" /> < code codeSystem="local" code="CA" displayName="Calcium" /> <statusCode code="completed" /> <effectiveTime value="347647749673" /> < value unit="mg/dL" xsi:type="PQ" value="7.9" /> <interpretationCode codeSystem="local" code="*" /> <referenceRange> < observationRange> <text>8.6-10.0</text> </ observationRange> </referenceRange> </observation> </ component> <component> <observation moodCode="EVN" classCode="OBS"> <templateId root="16.840.1.878155.10.20.22.4.2" /> <id nullFlavor="NA" /> <code codeSystem="local" code="CL" displayName= "Chloride" /> <statusCode code="completed" /> <effectiveTime value="747904901279" /> <value unit="mEq/L" xsi:type="PQ" value="98" / > <interpretationCode codeSystem="local" code="*" /> < referenceRange> <observationRange> <text>99-109</text> </observationRange> </referenceRange> </observation> </component> <component> <observation moodCode="EVN" classCode ="OBS"> <templateId root="10.29.840.1.210409.10.20.22.4.2" /> < id nullFlavor="NA" /> <code codeSystem="local" code="CO2" displayName= "CO2" /> <statusCode code="completed" /> <effectiveTime value= "[id number]" /> <value unit="mEq/L" xsi:type="PQ" value="25" /> <referenceRange> <observationRange> <text>22-32</ text> </observationRange> </referenceRange> </ observation> </component> <component> <observation moodCode= "EVN" classCode="OBS"> <templateId root="10.29.840.1.713867.22.4.2 " /> <id nullFlavor="NA" /> <code codeSystem="local" code= "CREAT" displayName="Creatinine" /> <statusCode code="completed" /> <effectiveTime value="" /> <value unit="mg/dL" xsi: type="PQ" value="1.26" /> <referenceRange> <observationRange > <text>0.64-1.27</text> </observationRange> </ referenceRange> </observation> </component> <component> <observation moodCode="EVN" classCode="OBS"> <templateId root= "10.29.840.1.526144.07.02.22.4.2" /> <id nullFlavor="NA" /> < code codeSystem="local" code="GLOB" displayName="Globulin" /> < statusCode code="completed" /> <effectiveTime value="" /> <value unit="g/dL" xsi:type="PQ" value="3.2" /> < referenceRange> <observationRange> <text>1.9-4.3</text> </observationRange> </referenceRange> </observation > </component> <component> <observation moodCode="EVN" classCode="OBS"> <templateId root="10.29.840.1.542504.22.4.2" /> <id nullFlavor="NA" /> <code codeSystem="local" code="GLU" displayName="Glucose" /> <statusCode code="completed" /> < effectiveTime value="" /> <value unit="mg/dL" xsi:type="PQ " value="99" /> <referenceRange> <observationRange> <text>70-100</text> </observationRange> </ referenceRange> </observation> </component> <component> <observation moodCode="EVN" classCode="OBS"> <templateId root= "10.29.840.1.311977.07.02.22.4.2" /> <id nullFlavor="NA" /> < code codeSystem="local" code="K" displayName="Potassium" /> < statusCode code="completed" /> <effectiveTime value="" /> <value unit="mEq/L" xsi:type="PQ" value="3.7" /> < referenceRange> <observationRange> <text>3.6-5.1</text> </observationRange> </referenceRange> </observation > </component> <component> <observation moodCode="EVN" classCode="OBS"> <templateId root="10.29.840.1.096304.07.02.22.4.2" /> <id nullFlavor="NA" /> <code codeSystem="local" code="TP" displayName="Protein" /> <statusCode code="completed" /> < effectiveTime value="" /> <value unit="g/dL" xsi:type="PQ" value="5.7" /> <interpretationCode codeSystem="local" code="*" /> <referenceRange> <observationRange> <text>6.1-7.9</ text> </observationRange> </referenceRange> </ observation> </component> <component> <observation moodCode= "EVN" classCode="OBS"> <templateId root="10.29.840.1.710923.07.02.22.4.2 " /> <id nullFlavor="NA" /> <code codeSystem="local" code="NA " displayName="Sodium" /> <statusCode code="completed" /> < effectiveTime value="" /> <value unit="mEq/L" xsi:type="PQ " value="132" /> <interpretationCode codeSystem="local" code="*" /> <referenceRange> <observationRange> <text>136-144 </text> </observationRange> </referenceRange> </ observation> </component> </organizer> </entry> <entry> <organizer moodCode="EVN" classCode="BATTERY"> <templateId root= "16.840.1.608242.07.02.22.4.1" /> <id nullFlavor="NA" /> <code codeSystem="local" code="GFR" displayName="eGFR" /> <statusCode code= "completed" /> <component> <observation moodCode="EVN" classCode= "OBS"> <templateId root="16.840.1.887364...4.2" /> < id nullFlavor="NA" /> <code codeSystem="local" code="GFR" displayName= "eGFR" /> <statusCode code="completed" /> <effectiveTime value ="[id number]" /> <value unit="mL/min" xsi:type="PQ" value=">60" / > <referenceRange> <observationRange> <text>&gt ;60</text> </observationRange> </referenceRange> </ observation> </component> </organizer> </entry> <entry> <organizer moodCode="EVN" classCode="BATTERY"> <templateId root= "16.840.1.679509.10.4.1" /> <id nullFlavor="NA" /> <code codeSystem="local" code="UDRGH" displayName="Urine Drug Screen" /> < statusCode code="completed" /> <component> <observation moodCode= "EVN" classCode="OBS"> <templateId root="10.29.840.1.695744...22.4.2 " /> <id nullFlavor="NA" /> <code codeSystem="local" code= "UTCA1" displayName="Tricyclics" /> <statusCode code="completed" /> <effectiveTime value="740496811132" /> <value unit="NA" xsi:type ="PQ" value="Not Detected" /> <referenceRange> < observationRange> <text /> </observationRange> </referenceRange> </observation> </component> </organizer> </ entry> <entry> <organizer moodCode="EVN" classCode="BATTERY"> < templateId root="16.840.1.970859.07.02.22.4.1" /> <id nullFlavor="NA" /> <code codeSystem="local" code="GLUN" displayName="Glucose NPT" /> < statusCode code="completed" /> <component> <observation moodCode= "EVN" classCode="OBS"> <templateId root="16.840.1.826310....4.2 " /> <id nullFlavor="NA" /> <code codeSystem="local" code= "GLUN" displayName="Glucose NPT" /> <statusCode code="completed" /> <effectiveTime value="901859880927" /> <value unit="mg/dL" xsi: type="PQ" value="113" /> <interpretationCode codeSystem="local" code="* " /> <referenceRange> <observationRange> <text> 70-100</text> </observationRange> </referenceRange> < /observation> </component> </organizer> </entry> <entry> < organizer moodCode="EVN" classCode="BATTERY"> <templateId root= "10.29.840.1.908900.07.02.22.4.1" /> <id nullFlavor="NA" /> <code codeSystem="local" code="CBCWD" displayName="CBC With Platelet and Differential " /> <statusCode code="completed" /> <component> <observation moodCode="EVN" classCode="OBS"> <templateId root= "16.840.1.526077.10...4.2" /> <id nullFlavor="NA" /> < code codeSystem="local" code="HCT" displayName="HCT" /> <statusCode code="completed" /> <effectiveTime value="566749860740" /> < value unit="%" xsi:type="PQ" value="33.5" /> <interpretationCode codeSystem="local" code="*" /> <referenceRange> < observationRange> <text>42.0-52.0</text> </ observationRange> </referenceRange> </observation> </ component> <component> <observation moodCode="EVN" classCode="OBS"> <templateId root="10.29.840.1.081609...4.2" /> <id nullFlavor="NA" /> <code codeSystem="local" code="HGB" displayName="HGB " /> <statusCode code="completed" /> <effectiveTime value= "" /> <value unit="g/dL" xsi:type="PQ" value="10.7" /> <interpretationCode codeSystem="local" code="*" /> < referenceRange> <observationRange> <text>14.0-18.0</text > </observationRange> </referenceRange> </observation > </component> <component> <observation moodCode="EVN" classCode="OBS"> <templateId root="10.29.840.1.686815.10...4.2" /> <id nullFlavor="NA" /> <code codeSystem="local" code="MCH" displayName="MCH" /> <statusCode code="completed" /> < effectiveTime value="" /> <value unit="pg" xsi:type="PQ" value="28.9" /> <referenceRange> <observationRange> <text>27.0-32.0</text> </observationRange> </ referenceRange> </observation> </component> <component> <observation moodCode="EVN" classCode="OBS"> <templateId root= "2.16.840.1.744784.10..22.4.2" /> <id nullFlavor="NA" /> < code codeSystem="local" code="MCHC" displayName="MCHC" /> <statusCode code="completed" /> <effectiveTime value="" /> < value unit="g/dL" xsi:type="PQ" value="31.9" /> <interpretationCode codeSystem="local" code="*" /> <referenceRange> < observationRange> <text>32.0-36.0</text> </ observationRange> </referenceRange> </observation> </ component> <component> <observation moodCode="EVN" classCode="OBS"> <templateId root="216.840.1.567551.10.20.22.4.2" /> <id nullFlavor="NA" /> <code codeSystem="local" code="MCV" displayName="MCV " /> <statusCode code="completed" /> <effectiveTime value= "" /> <value unit="fL" xsi:type="PQ" value="90.5" /> <referenceRange> <observationRange> <text>82.0-99.0< /text> </observationRange> </referenceRange> </ observation> </component> <component> <observation moodCode= "EVN" classCode="OBS"> <templateId root="16.840.1.638408.1022.4.2 " /> <id nullFlavor="NA" /> <code codeSystem="local" code="MPV " displayName="MPV" /> <statusCode code="completed" /> < effectiveTime value="" /> <value unit="fL" xsi:type="PQ" value="11.4" /> <referenceRange> <observationRange> <text>9.4-12.3</text> </observationRange> </ referenceRange> </observation> </component> <component> <observation moodCode="EVN" classCode="OBS"> <templateId root= "10.29.840.1.012574.07.02.22.4.2" /> <id nullFlavor="NA" /> < code codeSystem="local" code="PLT" displayName="Platelet Count" /> < statusCode code="completed" /> <effectiveTime value="" /> <value unit="K/uL" xsi:type="PQ" value="122" /> < interpretationCode codeSystem="local" code="*" /> <referenceRange> <observationRange> <text>150-400</text> </ observationRange> </referenceRange> </observation> </ component> <component> <observation moodCode="EVN" classCode="OBS"> <templateId root="10.29.840.1.819143.10.2022.4.2" /> <id nullFlavor="NA" /> <code codeSystem="local" code="RBC" displayName="RBC " /> <statusCode code="completed" /> <effectiveTime value= "" /> <value unit="10*6/uL" xsi:type="PQ" value="3.70" /> <interpretationCode codeSystem="local" code="*" /> < referenceRange> <observationRange> <text>4.60-6.20</text > </observationRange> </referenceRange> </observation > </component> <component> <observation moodCode="EVN" classCode="OBS"> <templateId root="216.840.1.539387.22.4.2" /> <id nullFlavor="NA" /> <code codeSystem="local" code="RDW" displayName="RDW" /> <statusCode code="completed" /> < effectiveTime value="588038933602" /> <value unit="%" xsi:type="PQ " value="18.0" /> <interpretationCode codeSystem="local" code="*" /> <referenceRange> <observationRange> <text>11.5- 14.5</text> </observationRange> </referenceRange> </ observation> </component> <component> <observation moodCode= "EVN" classCode="OBS"> <templateId root="216.840.1.026214.07.02.22.4.2 " /> <id nullFlavor="NA" /> <code codeSystem="local" code= "WBCIR" displayName="WBC" /> <statusCode code="completed" /> < effectiveTime value="608363665074" /> <value unit="K/uL" xsi:type="PQ" value="11.8" /> <interpretationCode codeSystem="local" code="*" /> <referenceRange> <observationRange> <text>4.8-10.8 </text> </observationRange> </referenceRange> </ observation> </component> </organizer> </entry> <entry> <organizer moodCode="EVN" classCode="BATTERY"> <templateId root= "16.840.1.785165.10..22.4.1" /> <id nullFlavor="NA" /> <code codeSystem="local" code="CMP" displayName="Comprehensive Metabolic Panel (CMP)" /> <statusCode code="completed" /> <component> <observation moodCode="EVN" classCode="OBS"> <templateId root= "10.29.840.1.248125.07.02.22.4.2" /> <id nullFlavor="NA" /> < code codeSystem="local" code="ALB" displayName="Albumin" /> < statusCode code="completed" /> <effectiveTime value="723750722254" /> <value unit="g/dL" xsi:type="PQ" value="2.6" /> < interpretationCode codeSystem="local" code="*" /> <referenceRange> <observationRange> <text>3.5-4.8</text> </ observationRange> </referenceRange> </observation> </ component> <component> <observation moodCode="EVN" classCode="OBS"> <templateId root="10.29.840.1.338947.07.02.22.4.2" /> <id nullFlavor="NA" /> <code codeSystem="local" code="ALP" displayName= "Alkaline Phosphatase" /> <statusCode code="completed" /> < effectiveTime value="" /> <value unit="U/L" xsi:type="PQ" value="113" /> <interpretationCode codeSystem="local" code="*" /> <referenceRange> <observationRange> <text>26-104</ text> </observationRange> </referenceRange> </ observation> </component> <component> <observation moodCode= "EVN" classCode="OBS"> <templateId root="10.29.840.1.340567.10..22.4.2 " /> <id nullFlavor="NA" /> <code codeSystem="local" code="ALT " displayName="ALT (SGPT)" /> <statusCode code="completed" /> <effectiveTime value="" /> <value unit="U/L" xsi:type="PQ" value="215" /> <interpretationCode codeSystem="local" code="*" /> <referenceRange> <observationRange> <text>17-63</ text> </observationRange> </referenceRange> </ observation> </component> <component> <observation moodCode= "EVN" classCode="OBS"> <templateId root="840.1.856027.07.02.22.4.2 " /> <id nullFlavor="NA" /> <code codeSystem="local" code= "AGAP" displayName="Anion Gap" /> <statusCode code="completed" /> <effectiveTime value="" /> <value unit="mEq/L" xsi: type="PQ" value="7" /> <referenceRange> <observationRange> <text>3-20</text> </observationRange> </ referenceRange> </observation> </component> <component> <observation moodCode="EVN" classCode="OBS"> <templateId root= "10.29.840.1.231321.10..22.4.2" /> <id nullFlavor="NA" /> < code codeSystem="local" code="AST" displayName="AST (SGOT)" /> < statusCode code="completed" /> <effectiveTime value="970668650652" /> <value unit="U/L" xsi:type="PQ" value="70" /> < interpretationCode codeSystem="local" code="*" /> <referenceRange> <observationRange> <text>15-41</text> </ observationRange> </referenceRange> </observation> </ component> <component> <observation moodCode="EVN" classCode="OBS"> <templateId root="10.29.840.1.013014.10.20.22.4.2" /> <id nullFlavor="NA" /> <code codeSystem="local" code="BILIT" displayName= "Bilirubin Total" /> <statusCode code="completed" /> < effectiveTime value="" /> <value unit="mg/dL" xsi:type="PQ " value="1.6" /> <interpretationCode codeSystem="local" code="*" /> <referenceRange> <observationRange> <text>0.2-1.2 </text> </observationRange> </referenceRange> </ observation> </component> <component> <observation moodCode= "EVN" classCode="OBS"> <templateId root="840.1.391980.10..4.2 " /> <id nullFlavor="NA" /> <code codeSystem="local" code="BUN " displayName="BUN" /> <statusCode code="completed" /> < effectiveTime value="380869879922" /> <value unit="mg/dL" xsi:type="PQ " value="22" /> <interpretationCode codeSystem="local" code="*" /> <referenceRange> <observationRange> <text>4-20</ text> </observationRange> </referenceRange> </ observation> </component> <component> <observation moodCode= "EVN" classCode="OBS"> <templateId root="10.29.840.1.313262.10.20.22.4.2 " /> <id nullFlavor="NA" /> <code codeSystem="local" code="CA " displayName="Calcium" /> <statusCode code="completed" /> < effectiveTime value="222850304833" /> <value unit="mg/dL" xsi:type="PQ " value="7.9" /> <interpretationCode codeSystem="local" code="*" /> <referenceRange> <observationRange> <text>8.6- 10.0</text> </observationRange> </referenceRange> </ observation> </component> <component> <observation moodCode= "EVN" classCode="OBS"> <templateId root="216.840.1.486242.10..22.4.2 " /> <id nullFlavor="NA" /> <code codeSystem="local" code="CL " displayName="Chloride" /> <statusCode code="completed" /> < effectiveTime value="454679210947" /> <value unit="mEq/L" xsi:type="PQ " value="97" /> <interpretationCode codeSystem="local" code="*" /> <referenceRange> <observationRange> <text>99-109</ text> </observationRange> </referenceRange> </ observation> </component> <component> <observation moodCode= "EVN" classCode="OBS"> <templateId root="216.840.1.450178.10...4.2 " /> <id nullFlavor="NA" /> <code codeSystem="local" code="CO2 " displayName="CO2" /> <statusCode code="completed" /> < effectiveTime value="894251077065" /> <value unit="mEq/L" xsi:type="PQ " value="27" /> <referenceRange> <observationRange> <text>22-32</text> </observationRange> </ referenceRange> </observation> </component> <component> <observation moodCode="EVN" classCode="OBS"> <templateId root= "16.840.1.859487.10..22.4.2" /> <id nullFlavor="NA" /> < code codeSystem="local" code="CREAT" displayName="Creatinine" /> < statusCode code="completed" /> <effectiveTime value="" /> <value unit="mg/dL" xsi:type="PQ" value="1.28" /> < interpretationCode codeSystem="local" code="*" /> <referenceRange> <observationRange> <text>0.64-1.27</text> </ observationRange> </referenceRange> </observation> </ component> <component> <observation moodCode="EVN" classCode="OBS"> <templateId root="16.840.1.131630.07.02.22.4.2" /> <id nullFlavor="NA" /> <code codeSystem="local" code="GLOB" displayName= "Globulin" /> <statusCode code="completed" /> <effectiveTime value="" /> <value unit="g/dL" xsi:type="PQ" value="3.0" / > <referenceRange> <observationRange> <text>1.9 -4.3</text> </observationRange> </referenceRange> </ observation> </component> <component> <observation moodCode= "EVN" classCode="OBS"> <templateId root="10.29.840.1.844716.10..22.4.2 " /> <id nullFlavor="NA" /> <code codeSystem="local" code="GLU " displayName="Glucose" /> <statusCode code="completed" /> < effectiveTime value="858983148726" /> <value unit="mg/dL" xsi:type="PQ " value="85" /> <referenceRange> <observationRange> <text>70-100</text> </observationRange> </ referenceRange> </observation> </component> <component> <observation moodCode="EVN" classCode="OBS"> <templateId root= "10.29.840.1.412336.10.20.22.4.2" /> <id nullFlavor="NA" /> < code codeSystem="local" code="K" displayName="Potassium" /> < statusCode code="completed" /> <effectiveTime value="" /> <value unit="mEq/L" xsi:type="PQ" value="3.4" /> < interpretationCode codeSystem="local" code="*" /> <referenceRange> <observationRange> <text>3.6-5.1</text> </ observationRange> </referenceRange> </observation> </ component> <component> <observation moodCode="EVN" classCode="OBS"> <templateId root="840.1.494403.10..22.4.2" /> <id nullFlavor="NA" /> <code codeSystem="local" code="TP" displayName= "Protein" /> <statusCode code="completed" /> <effectiveTime value="713820594958" /> <value unit="g/dL" xsi:type="PQ" value="5.6" / > <interpretationCode codeSystem="local" code="*" /> < referenceRange> <observationRange> <text>6.1-7.9</text> </observationRange> </referenceRange> </observation > </component> <component> <observation moodCode="EVN" classCode="OBS"> <templateId root="10.29.840.1.047568.10.20.22.4.2" /> <id nullFlavor="NA" /> <code codeSystem="local" code="NA" displayName="Sodium" /> <statusCode code="completed" /> < effectiveTime value="441867667229" /> <value unit="mEq/L" xsi:type="PQ " value="131" /> <interpretationCode codeSystem="local" code="*" /> <referenceRange> <observationRange> <text>136-144 </text> </observationRange> </referenceRange> </ observation> </component> </organizer> </entry> <entry> <organizer moodCode="EVN" classCode="BATTERY"> <templateId root= "10.29.840.1.394519.10..22.4.1" /> <id nullFlavor="NA" /> <code codeSystem="local" code="GFR" displayName="eGFR" /> <statusCode code= "completed" /> <component> <observation moodCode="EVN" classCode= "OBS"> <templateId root="10.29.840.1.984512.10..22.4.2" /> < id nullFlavor="NA" /> <code codeSystem="local" code="GFR" displayName= "eGFR" /> <statusCode code="completed" /> <effectiveTime value ="895010365941" /> <value unit="mL/min" xsi:type="PQ" value="60" /> <referenceRange> <observationRange> <text>>60< /text> </observationRange> </referenceRange> </ observation> </component> </organizer> </entry> <entry> <organizer moodCode="EVN" classCode="BATTERY"> <templateId root= "10.29.840.1.606955.10.20.22.4.1" /> <id nullFlavor="NA" /> <code codeSystem="local" code="GLUN" displayName="Glucose NPT" /> <statusCode code="completed" /> <component> <observation moodCode="EVN" classCode="OBS"> <templateId root="16.840.1.222737.1022.4.2" /> <id nullFlavor="NA" /> <code codeSystem="local" code="GLUN" displayName="Glucose NPT" /> <statusCode code="completed" /> <effectiveTime value="342243123231" /> <value unit="mg/dL" xsi:type="PQ " value="109" /> <interpretationCode codeSystem="local" code="*" /> <referenceRange> <observationRange> <text>70-100< /text> </observationRange> </referenceRange> </ observation> </component> </organizer> </entry> <entry> <organizer moodCode="EVN" classCode="BATTERY"> <templateId root= "16.840.1.545889.10..22.4.1" /> <id nullFlavor="NA" /> <code codeSystem="local" code="GLUN" displayName="Glucose NPT" /> <statusCode code="completed" /> <component> <observation moodCode="EVN" classCode="OBS"> <templateId root="216.840.1.724385.10..22.4.2" /> <id nullFlavor="NA" /> <code codeSystem="local" code="GLUN" displayName="Glucose NPT" /> <statusCode code="completed" /> <effectiveTime value="067024751498" /> <value unit="mg/dL" xsi:type="PQ " value="174" /> <interpretationCode codeSystem="local" code="*" /> <referenceRange> <observationRange> <text>70-100< /text> </observationRange> </referenceRange> </ observation> </component> </organizer> </entry></section> Encounters ACCT No. Visit Date/Time Discharge Status Pt. Type Provider Facility Loc./Unit Complaint [id number] 01/20/2014 19:08:00 01/20/2014 22:54:00 DIS Emergency Magdy Golden MD [facility] on [place] FERM [id number] 07/10/2017 20:12:00 07/12/2017 16:11:00 DIS Outpatient Muñoz Paul [facility] on [facility] F5SW Hypotension [id number] 07/05/2017 16:56:00 07/05/2017 19:20:00 DIS Emergency Lorenzana John [facility] on [facility] ED SOB [id number] 06/11/2017 16:50:00 06/12/2017 10:20:00 DIS Inpatient Muñoz Paul [facility] on [facility] F8SE LLL pneumonia, AMS [id number] 05/27/2017 12:16:00 05/27/2017 20:45:00 DIS Inpatient Mathias Samuel [facility] on [facility] F3NC HIV, HYPOTENSION , DECOMPENSATED CIRRHOSIS [id number] 05/16/2017 21:25:00 05/18/2017 14:30:00 DIS Outpatient Pedraza Jennifer [facility] on [facility] F6SW H/O Aids, History of Methamphetamine [id number] 05/08/2017 18:49:00 05/11/2017 16:54:00 DIS Inpatient Mathias Samuel [facility] on [facility] F8SW COPD exacerbation HIV AIDS [id number] 05/06/2017 19:10:00 05/07/2017 01:16:00 DIS Emergency Meier Howard [facility] on [facility] ED unable to urinate [id number] 04/08/2017 15:21:00 04/15/2017 17:50:00 DIS Inpatient Shields Donna [facility] on [facility] F4SW chest pain [id number] 04/03/2017 08:39:00 04/03/2017 14:09:00 DIS Emergency Meier Howard [facility] on [facility] ED cp [id number] 12/19/2016 16:43:00 12/19/2016 21:20:00 DIS Emergency Ismael Odilia [facility] on [facility] ED Abd Pain [id number] 12/14/2016 14:52:00 12/17/2016 13:33:00 DIS Inpatient Flores John [facility] on [facility] F8SW Hyperkalemia, HIV/AIDS [id number] 11/20/2016 16:51:00 11/27/2016 16:06:00 DIS Inpatient Joshi Myles [facility] VTIR T2E NSTEMI, peripheral neuropathy [id number] 11/19/2016 19:08:00 11/20/2016 16:40:00 DIS Outpatient Joshi Andrew [facility] SOA [id number] 11/18/2016 21:04:00 11/18/2016 21:59:00 DIS Emergency Chapman Jacob [facility] ED assessment via WPD [id number] 11/18/2016 11:01:00 11/18/2016 15:26:00 DIS Emergency Meier Howard [facility] on [facility] ED DIFFICULTY BREATHING [id number] 11/10/2016 10:52:00 11/17/2016 15:57:00 DIS Inpatient Ndundaguilar Paul [facility] on [facility] F4SE EKG abnormalities, dyspnea [id number] 03/14/2016 15:24:00 03/14/2016 16:47:00 DIS Emergency Rosendo Farias [facility] on [facility] ED rash [id number] 05/06/2015 13:21:00 05/06/2015 23:59:00 DIS Outpatient Camron Hodges [facility] on [facility] CT Scan Abdominal Pain, RO Hernia [id number] 04/24/2015 20:23:00 04/24/2015 23:15:00 DIS Emergency Conor Meier MD [facility] [facility] abd pain [id number] 10/25/2017 12:05:00 Document Registration [id number] 10/23/2017 05:17:26 Document Registration [id number] 10/20/2017 05:18:02 Document Registration [id number] 10/19/2017 05:17:59 Document Registration [id number] 10/18/2017 05:16:06 Document Registration [id number] 10/16/2017 05:17:18 Document Registration [id number] 10/15/2017 05:17:40 Document Registration [id number] 10/14/2017 05:17:58 Document Registration [id number] 10/13/2017 15:46:00 [place] [facility] [place] [place] [facility] F8SE acute hypoxic resp failure, copd chf [id number] 07/13/2017 05:17:49 Document Registration [id number] 07/12/2017 07:36:45 Document Registration [id number] 07/11/2017 05:16:01 Document Registration [id number] 06/13/2017 05:15:56 Document Registration [id number] 06/12/2017 05:16:40 Document Registration [id number] 05/28/2017 05:16:16 Document Registration [id number] 05/19/2017 05:17:18 Document Registration [id number] 05/18/2017 05:15:43 Document Registration [id number] 05/17/2017 05:15:37 Document Registration [id number] 05/12/2017 05:16:28 Document Registration [id number] 05/12/2017 05:16:27 Document Registration [id number] 05/11/2017 05:17:05 Document Registration [id number] 05/10/2017 05:16:31 Document Registration [id number] 05/09/2017 05:15:37 Document Registration [id number] 05/07/2017 05:17:07 Document Registration [id number] 04/30/2017 05:16:29 Document Registration [id number] 04/28/2017 05:16:32 Document Registration [id number] 04/27/2017 05:16:53 Document Registration [id number] 04/26/2017 05:15:41 Document Registration [id number] 04/25/2017 05:15:41 Document Registration [id number] 04/25/2017 05:15:40 Document Registration [id number] 04/24/2017 05:16:16 Document Registration [id number] 04/16/2017 05:16:57 Document Registration [id number] 04/15/2017 05:16:26 Document Registration [id number] 04/15/2017 05:16:25 Document Registration [id number] 04/14/2017 05:16:17 Document Registration [id number] 04/13/2017 05:17:44 Document Registration [id number] 04/12/2017 05:15:38 Document Registration [id number] 04/11/2017 05:15:44 Document Registration [id number] 04/10/2017 05:16:56 Document Registration [id number] 04/09/2017 05:17:14 Document Registration [id number] 04/04/2017 05:15:48 Document Registration [id number] 12/20/2016 05:15:32 Document Registration [id number] 12/18/2016 05:16:08 Document Registration [id number] 12/17/2016 05:15:50 Document Registration [id number] 12/16/2016 05:17:28 Document Registration [id number] 12/15/2016 05:16:59 Document Registration [id number] 11/28/2016 05:17:10 Document Registration [id number] 11/25/2016 05:17:21 Document Registration [id number] 11/23/2016 05:15:50 Document Registration [id number] 11/22/2016 05:15:50 Document Registration [id number] 11/21/2016 05:18:00 Document Registration [id number] 11/21/2016 05:17:59 Document Registration [id number] 11/20/2016 05:16:18 Document Registration [id number] 11/19/2016 05:17:02 Document Registration [id number] 11/18/2016 09:16:45 Document Registration [id number] 11/17/2016 05:16:36 Document Registration [id number] 11/16/2016 05:17:52 Document Registration [id number] 11/15/2016 05:15:31 Document Registration [id number] 11/14/2016 05:16:05 Document Registration [id number] 11/13/2016 05:17:23 Document Registration [id number] 11/12/2016 05:16:27 Document Registration [id number] 11/11/2016 05:18:33 Document Registration [id number] 03/15/2016 05:16:23 Document Registration [id number] 07/03/2015 14:24:19 Document Registration [id number] 06/25/2015 08:25:00 Document Registration [id number] 10/12/2017 23:30:00 10/13/2017 10:27:00 DIS Inpatient Herbert Abdul DO [facility] W.9TS [id number] 10/11/2017 17:55:00 10/11/2017 19:55:00 DIS Emergency Mike LAST, Soila Riggins [facility].EDS [id number] 06/20/2017 21:06:00 06/23/2017 12:55:00 DIS Inpatient Mynor Michel [facility] W.7TS [id number] 06/18/2017 16:19:00 06/18/2017 19:25:00 DIS Emergency Karsten Aponte DO [facility].EDS [id number] 05/09/2016 18:19:00 05/09/2016 18:55:00 DIS Emergency Venkat Chaudhary DO [facility] W.EDW [id number] 04/27/2016 03:02:00 04/27/2016 05:38:00 DIS Emergency Mitch LAST, Debbie Johnson [facility] W.EDW
[2017-10-30] MEDS ORDERED: DEXAMETHASONE 4 MG/ML SDV (DECADRON) IH ONE (21:15)
[2017-10-30] MEDS ORDERED: methylPREDNISolone 125 MG (Solu-MEDROL) VIAL IVP ONE (21:15)
[2017-10-30] MEDS ORDERED: RT-ALBUTEROL/IPRATROPIUM 3 ML (DUONEB) VIAL INH ONE (21:15)
[2017-10-30 21:16] LABS: BASOPHILS # (AUTO) 0.1 10^3/uL (0.0-0.1); BASOPHILS % (AUTO) 1 % (0-10); EOSINOPHILS # (AUTO) 0.2 10^3/uL (0.0-0.3); EOSINOPHILS % (AUTO) 2 % (0-10); HEMATOCRIT 35 % (40-54); HEMOGLOBIN 11.7 G/DL (13.3-17.7); LYMPHOCYTES # (AUTO) 1.2 X 10^3 (1.0-4.0); LYMPHOCYTES % (AUTO) 13 % (12-44); MEAN CORPUSCULAR HEMOGLOBIN 30 PG (25-34); MEAN CORPUSCULAR HGB CONC 33 G/DL (32-36); MEAN CORPUSCULAR VOLUME 90 FL (80-99); MONOCYTES # (AUTO) 1.3 X 10^3 (0.0-1.0); MONOCYTES % (AUTO) 14 % (0-12); NEUTROPHILS # (AUTO) 6.4 X 10^3 (1.8-7.8); NEUTROPHILS % (AUTO) 70 % (42-75); PLATELET COUNT 220 10^3/uL (130-400); RED BLOOD COUNT 3.89 10^6/uL (4.35-5.85); RED CELL DISTRIBUTION WIDTH 17.2 % (10.0-14.5); WHITE BLOOD COUNT 9.1 10^3/uL (4.3-11.0)
--- NOTE | 2017-10-30 21:25 | ED Respiratory ---
General Chief Complaint: Respiratory Problems Stated Complaint: COPD,RESP DISTRESS Nursing Triage Note: patient reports SOA. Source: patient (POOR HISTORIAN), EMS, old records (SINGLE PREVIOUS VISIT) Exam Limitations: other (PT WITH CONFUSION AND IS BELLIGERANT AND DOES NOT WANT TO ANSWER QUESTIONS, AND DAUGHTER ( DPOA) DOES NTO ACCOMPANY PT TO ER) History of Present Illness Date Seen by Provider: Oct 30, 2017 Time Seen by Provider: 20:50 Initial Comments PT ARRIVES VIA EMS FROM DAUGHTER'S HOUSE EMS CALLED BY DAUGHTER FOR PT SHORTNESS OF BREATH--PT DID NOT WANT TO COME HERE , BUT DAUGHTER INSISTED, BUT DID NOT ACCOMPANY PT TO ER. PT WITH COPD, CHF AND AIDS HAS CHRONIC SHORTNESS OF BREATH AND IS ON HOME O2 AT 3L/NC--O2 SATS IN UPPER 90' S PT CONTINUES TO SMOKE HEAVILY PT HAS EXTREME NON-COMPLIANCE AND HAS BEEN REFUSING TO TAKE ANY OF HIS MEDICATIONS FOR A LONG TIME, AND HAS REPEATEDLY STATED THAT HE JUST WANTS TO . PT IS FROM [place] AND HAS BEEN A PT OF DR. ANNMARIE CHRISTIANSON'Cael FOR OVER 20 YEARS. PT HAS HAD 8-9 EPISODES OF PNEUMONIA IN THE LAST YEAR, AND HAS SPENT MOST OF THE LAST YEAR IN THE HOSPITAL PT WAS RECENTLY ADMITTED TO [facility], THEN DISMISSED 10/22/17 AND SENT HOME TO STAY WITH DAUGHTER, AND DAUGHTER WAS ADVISED TO TRY TO FIND ALF CARE HERE. DAUGHTER STATES SHE CANNOT TAKE CARE OF HIM AT HOME. PT WAS BROUGHT HERE 10/24/17 FOR THESE SAME COMPLAINTS OF SHORTNESS OF BREATH AND WAS TRANSFERRED BACK TO [place] FOR ONGOING CARE BY DR. CHRISTIANSON. PT DOES NOT KNOW HOW LONG HE WAS IN HOSPITAL OR WHEN HE WAS DISMISSED OR WHY HE WAS IN HOSPITAL PT IS DNR AND HAS BEEN DISCUSSED THAT HE SHOULD BE ON HOSPICE, BUT APPARENTLY THIS HAS NOT BEEN DONE, NOR HAS ALF PLACEMENT BEEN ADDRESSED. PT HAS ONGOING CONFUSION --IS UNCLEAR HOW LONG THIS HAS BEEN GOING ON, BUT WAS PRESENT AT LAST ER VISIT AND IS NO DIFFERENT. . 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 PT REFUSES TO ANSWER QUESTIONS, IS VERY BELLIGERENT AND UNCOOPERATIVE AND REPEATS "IT'S ALL IN MY FILE--LOOK IT UP"--EXPLAINED TO PT THAT WE DO NOT HAVE ACCESS TO ANY OF HIS RECORDS FROM [place], BUT HE REPEATS THE ABOVE AND TELLS ME TO "LOOK IT UP" CONTINUOUS/NON-STOP YELLING OUT, GROWLING, GRUNTING, MAKING NOISES, DEMANDING MULTIPLE THINGS, YELLING FOR PEOPLE NOT HERE, WANTING STAFF IN ROOM FOR NO REASON, ETC. Allergies and Home Medications Allergies Coded Allergies: aspirin (Verified Allergy, Unknown, 10/30/17) emtricitabine (Verified Allergy, Unknown, 10/30/17) tenofovir (Verified Allergy, Unknown, 10/30/17) varenicline (Verified Allergy, Unknown, 10/30/17) Constitutional: other (PT UNABLE TO ANSWER QUESTIONS) Respiratory: short of breath Past Ikyjvqo-Aqqqdv-Rovelw Hx Patient Social History Alcohol Use: Denies Use Recreational Drug Use: No Drug of Choice: meth Type Used: Cigarettes Recent Foreign Travel: No Contact w/Someone Who Travel: No Recent Infectious Disease Expo: No Recent Hopitalizations: Yes (ADMNITTED AT [facility] X2 IN LAST WEEK) Immunizations Up To Date PED Vaccines UTD: Yes Seasonal Allergies Seasonal Allergies: No Surgeries History of Surgeries: Yes (L FT) Surgeries: Orthopedic Respiratory History of Respiratory Disorde: Yes Respiratory Disorders: COPD Cardiovascular History of Cardiac Disorders: Yes Cardiac Disorders: Heart Attack Neurological History of Neurological Disord: Yes Neurological Disorders: Stroke Genitourinary History of Genitourinary Disor: No Gastrointestinal History of Gastrointestinal Di: No Musculoskeletal History of Musculoskeletal Dis: No Endocrine History of Endocrine Disorders: No HEENT History of HEENT Disorders: No Cancer History of Cancer: No Blood Transfusions History of Blood Disorders: Yes (AIDS) Physical Exam Vital Signs Vital Signs - First Documented 10/30/17 20:52 Temp 100.1 Pulse 120 Resp 20 B/P (MAP) 96/52 (67) Pulse Ox 95 O2 Delivery Nasal Cannula O2 Flow Rate 3.00 Capillary Refill : Less Than 3 Seconds General Appearance: no apparent distress, other (REEKS OF CIGARETTES, DIRTY, FOOD AND ANIMAL HAIR ALL OVER CLOTHING, VERY UNKEMPT. BELLIGERANT, CURSING, CONSTANT MOVEMENTS. ) HEENT: PERRL/EOMI Respiratory: no respiratory distress, no accessory muscle use, rales, rhonchi, wheezing, other (LEFT > RIGHT) Cardiovascular: no murmur, tachycardia Gastrointestinal: non tender, soft, No guarding, No rebound, No tenderness, other (ROTUND) Extremities: normal range of motion, non-tender, normal capillary refill, pedal edema (2+ BILATERALLY) Neurologic/Psychiatric: no motor/sensory deficits (GROSSLY INTACT), alert ( AWAKE BUT CONFUSED AND BELLIGERANT, BUT ALSO LETHARGIC), other (DISORIENTED TO PLACE, TIME, SITUATION, VERY POOR/NON-EXISTENT MEMORY. PT NOT ANSWERING QUESTIONS OR FOLLOWING COMMANDS. ) Skin: normal color, warm/dry, ecchymosis (TO RIGHT MEDIAL THIGH AND LEFT UPPER / ANTERIOR THIGH. MULTIPLE RECENT IV STICK MARS AND ADHESIVE/TAPE RESIDUE), tattoos/piercings (MULTIPLE TATTOOS) Focused Exam Evaluation Lactate Level Laboratory Tests 10/30/17 23:14: Lactic Acid Level 1.09 Lactic Acid Level Laboratory Tests Test 10/30/17 23:14 Lactic Acid Level 1.09 MMOL/L (0.50-2.00) Progress/Results/Core Measures Suspected Sepsis Recent Fever Within 48 Hours: No Infection Criteria Present: None New/Unexplained Altered Menta: No Sepsis Screen: No Definite Risk Sepsis Diagnosis: SIRS Temperature: Pulse: 120 Respiratory Rate: 20 Laboratory Tests 10/30/17 21:10: White Blood Count 9.1 Blood Pressure 96 /52 Mean: 67 Laboratory Tests 10/30/17 23:14: Lactic Acid Level 1.09 Laboratory Tests 10/30/17 21:10: Creatinine 0.84, INR Comment 0.9, Platelet Count 220, Total Bilirubin 1.4H Results/Orders Lab Results Laboratory Tests Test 10/30/17 21:10 10/30/17 23:14 Range/Units White Blood Count 9.1 4.3-11.0 10^3/uL Red Blood Count 3.89 L 4.35-5.85 10^6/uL Hemoglobin 11.7 L 13.3-17.7 G/DL Hematocrit 35 L 40-54 % Mean Corpuscular Volume 90 80-99 FL Mean Corpuscular Hemoglobin 30 25-34 PG Mean Corpuscular Hemoglobin Concent 33 32-36 G/DL Red Cell Distribution Width 17.2 H 10.0-14.5 % Platelet Count 220 130-400 10^3/uL Mean Platelet Volume 10.0 7.4-10.4 FL Neutrophils (%) (Auto) 70 42-75 % Lymphocytes (%) (Auto) 13 12-44 % Monocytes (%) (Auto) 14 H 0-12 % Eosinophils (%) (Auto) 2 0-10 % Basophils (%) (Auto) 1 0-10 % Neutrophils # (Auto) 6.4 1.8-7.8 X 10^3 Lymphocytes # (Auto) 1.2 1.0-4.0 X 10^3 Monocytes # (Auto) 1.3 H 0.0-1.0 X 10^3 Eosinophils # (Auto) 0.2 0.0-0.3 10^3/uL Basophils # (Auto) 0.1 0.0-0.1 10^3/uL Prothrombin Time 11.7 L 12.2-14.7 SEC INR Comment 0.9 0.8-1.4 Activated Partial Thromboplast Time 30 24-35 SEC Sodium Level 136 135-145 MMOL/L Potassium Level 4.3 3.6-5.0 MMOL/L Chloride Level 102 98-107 MMOL/L Carbon Dioxide Level 23 21-32 MMOL/L Anion Gap 11 5-14 MMOL/L Blood Urea Nitrogen 20 H 7-18 MG/DL Creatinine 0.84 0.60-1.30 MG/DL Estimat Glomerular Filtration Rate > 60 BUN/Creatinine Ratio 24 Glucose Level 101 70-105 MG/DL Calcium Level 8.5 8.5-10.1 MG/DL Magnesium Level 2.1 1.8-2.4 MG/DL Total Bilirubin 1.4 H 0.1-1.0 MG/DL Aspartate Amino Transf (AST/SGOT) 54 H 5-34 U/L Alanine Aminotransferase (ALT/SGPT) 67 H 0-55 U/L Alkaline Phosphatase 157 H 40-136 U/L Total Creatine Kinase 22 L 30-200 U/L Creatine Kinase MB 1.0 <6.6 NG/ML Troponin I < 0.30 <0.30 NG/ML B-Type Natriuretic Peptide 592.4 H <100.0 PG/ML Total Protein 7.1 6.4-8.2 GM/DL Albumin 3.3 3.2-4.5 GM/DL Urine Color YELLOW Urine Clarity CLEAR Urine pH 8 5-9 Urine Specific [place] 1.010 L 1.016-1.022 Urine Protein 1+ H NEGATIVE Urine Glucose (UA) NEGATIVE NEGATIVE Urine Ketones NEGATIVE NEGATIVE Urine Nitrite NEGATIVE NEGATIVE Urine Bilirubin NEGATIVE NEGATIVE Urine Urobilinogen 1 NORMAL MG/DL Urine Leukocyte Esterase NEGATIVE NEGATIVE Urine RBC (Auto) NEGATIVE NEGATIVE Urine RBC NONE /HPF Urine WBC NONE /HPF Urine Squamous Epithelial Cells RARE /HPF Urine Crystals NONE /LPF Urine Bacteria NEGATIVE /HPF Urine Casts NONE /LPF Urine Mucus NEGATIVE /LPF Urine Culture Indicated NO Lactic Acid Level 1.09 0.50-2.00 MMOL/L Urine Opiates Screen NEGATIVE NEGATIVE Urine Oxycodone Screen NEGATIVE NEGATIVE Urine Methadone Screen NEGATIVE NEGATIVE Urine Propoxyphene Screen NEGATIVE NEGATIVE Urine Barbiturates Screen NEGATIVE NEGATIVE Ur Tricyclic Antidepressants Screen NEGATIVE NEGATIVE Urine Phencyclidine Screen NEGATIVE NEGATIVE Urine Amphetamines Screen NEGATIVE NEGATIVE Urine Methamphetamines Screen NEGATIVE NEGATIVE Urine Benzodiazepines Screen NEGATIVE NEGATIVE Urine Cocaine Screen NEGATIVE NEGATIVE Urine Cannabinoids Screen NEGATIVE NEGATIVE Micro Results Microbiology 10/30/17 Influenza Types A,B Antigen (HÉCTOR) - Final, Complete My Orders Orders - KEISHA IVAN DO Saline Lock/Iv-Start (10/30/17 20:50) Ekg Tracing (10/30/17 20:50) O2 (10/30/17 20:50) Monitor-Rhythm Ecg Trace Only (10/30/17 20:50) BNP (10/30/17 20:50) Cbc With Automated Diff (10/30/17 20:50) Comprehensive Metabolic Panel (10/30/17 20:50) Creatine Kinase (10/30/17 20:50) Creatine Kinase Mb (10/30/17 20:50) Drug Screen Stat (Urine) (10/30/17 20:50) Lactic Acid Analyzer (10/30/17 20:50) Magnesium (10/30/17 20:50) Protime With Inr (10/30/17 20:50) Partial Thromboplastin Time (10/30/17 20:50) Troponin I (10/30/17 20:50) Ua Culture If Indicated (10/30/17 20:50) Blood Culture (10/30/17 20:50) Influenza A And B Antigens (10/30/17 20:50) Chest 1 View, Ap/Pa Only (10/30/17 20:50) Albuterol/Ipra Inhalation Soln (Duoneb I (10/30/17 21:15) Dexamethasone Injection (Decadron Inject (10/30/17 21:15) Rt Request For Service (10/30/17 21:08) Svn Sm Volume Nebulizer Rt-Rfs (10/30/17 21:08) Svn Sm Volume Nebulizer Rt-Rfs (10/30/17 21:08) Methylprednisolone Sod Succ (Solu-Medrol (10/30/17 21:15) Saline Lock/Iv-Start (10/30/17 22:19) Ns Iv 1000 Ml (Sodium Chloride 0.9%) (10/30/17 22:19) Cefepime Injection (Maxipime Injection) (10/30/17 22:30) Catheter(Urinary) Insert & Ass 03,15 (10/30/17 23:00) Acetaminophen Tablet (Tylenol Tablet) (10/30/17 23:15) Methylprednisolone Sod Succ (Solu-Medrol (10/30/17 23:23) Medications Given in ED Current Medications Medications Dose Ordered Sig/Magnus Route Start Time Stop Time Status Last Admin Dose Admin Acetaminophen 1,000 mg ONCE ONCE PO 10/30/17 23:15 10/30/17 23:16 DC 10/30/17 23:31 1,000 MG Albuterol/ Ipratropium 3 ml ONCE ONCE INH 10/30/17 21:15 10/30/17 21:16 DC 10/30/17 21:27 3 ML Cefepime HCl 2000 mg/Sodium Chloride 50 ml @ 100 mls/hr ONCE ONCE IV 10/30/17 22:30 10/30/17 23:00 DC 10/30/17 23:32 100 MLS/HR Dexamethasone Sodium Phosphate 20 mg ONCE ONCE IH 10/30/17 21:15 10/30/17 21:16 DC 10/30/17 21:27 20 MG Methylprednisolone Sodium Succinate 125 mg ONCE ONCE IVP 10/30/17 21:15 10/30/17 21:16 DC 10/30/17 23:31 125 MG Sodium Chloride 1,000 ml @ 0 mls/hr Q0M ONCE IV 10/30/17 22:19 10/30/17 23:00 DC 10/30/17 23:31 0 MLS/HR Vital Signs/I&O Vital Sign - Last 12Hours 10/30/17 10/30/17 10/30/17 10/31/17 20:52 20:52 21:28 00:48 Temp 100.1 Pulse 120 110 Resp 20 22 B/P (MAP) 96/52 (67) 138/100 Pulse Ox 95 95 94 O2 Delivery Nasal Cannula Nasal Cannula Nasal Cannula O2 Flow Rate 3.00 3.00 3.00 Capillary Refill : Less Than 3 Seconds Blood Pressure Mean: 67 Progress Note : Progress Note BP UP WITH FLUIDS TO > 100 SYSTOLIC, HEART RATE DOWN TO 90'S-100'S LUNG SOUNDS IMPROVED WITH NEB TREATMENT. PT TOOK OFF O2 MULTIPLE TIMES DURING ER STAY AND O2 SATS DROPPED TO LOW 80'S, BUT CAME BACK UP TO MID 90'S ON O2 AT 3L/NC PT INCONTINENT OF URINE DURING ER STAY--DID NOT NOTIFY ANY STAFF HE NEEDED TO URINATE, DESPITE MULTIPLE STAFF MEMBERS IN HIS ROOM A MULTITUDE OF TIMES. PT CONTINUOUSLY/NON-STOP MAKE NOISES, YELLING "HEY" TO NO ONE IN PARTICULAR, AND TALKING TO PEOPLE NOT HERE, THROUGHOUT ER STAY. PT DOES THIS EVEN THOUGH HE APPEARS TO BE RESTING / SLEEPING. DAUGHTER STATES HE IS TALKING ABOUT / TO HIS FATHER AND OTHER PEOPLE WHO ARE , WELL OTHER PEOPLE NOT PRESENT. PT CONTINUES TO BE MODERATELY CONFUSED AND EXTREMELY POOR MEMORY. ECG Initial ECG Impression Date: Oct 30, 2017 Initial ECG Impression Time: 21:45 Initial ECG Rate: 121 Initial ECG Rhythm: S.Tach Initial ECG Impression: Nonspecific Changes Diagnostic Imaging Comments CXR--LEFT UPPER AND LOWER INFILTRATES, PER RADIOLOGIST REPORT @ 2144 Reviewed: Reviewed by Me Departure Communication (Admissions) Family Conversation 2219--SPOKE WITH DAUGHTER. SHE STATES THAT SHE DOES NOT KNOW IF PT LEFT [place] AM OR NOT. SHE STATES SHE WAS THERE ON WEDNESDAY AND HE WAS BETTER, AND NOT VERY CONFUSED. HE GOT OUT OF HOSPITAL ON WEDNESDAY ( AGAIN SHE DOES NOT KNOW IF HE LEFT AMA OR HE WAS DISMISSED) AND PT DROVE HIMSELF HERE TO [place] WEDNESDAY NIGHT. HE THEN DROVE BACK TO [place] YESTERDAY TO GET SOME THINGS, AND DROVE BACK HERE TODAY. [place] [facility] [place] SHE [place] SHE FOUND THAT PT HAD CALLED EMS BECAUSE HE WAS SHORT OF BREATH. PT WAS NOT WEARING HIS OXYGEN AND HE WAS VERY CONFUSED--WAS TALKING TO HIS FATHER AND OTHER PEOPLE WHO WERE . SHE PUT HIS OXYGEN BACK ON, THEN EMS BROUGHT HIM HERE. SHE STATES SHE DID NOT TALK WITH JEWEL BEARING BROACHER WITH THIS MOST RECENT ADMIT IN [place] PT DOES NOT WANT TO BE ADMITTED, STATES HE JUST WANTS TO GO HOME, AND HAS STATED THROUGH ER STAY THAT HE WANTS TO GO HOME AND . PT IS TO BE DNR, BUT IS NOT ON HOSPICE AT THIS TIME. DAUGHTER STATES SHE IS DPOA AND SHE WANTS PT TREATED. SHE WILL BE COMING TO ER PT DOES NOT WANT TO GO TO [place], AND DAUGHTER WANTS HIM TO BE CLOSER IF POSSIBLE, IT IS SUCH A LONG DRIVE AND SHE HAS SMALL CHILDREN, DIFFICULTY FINDING BAIL BONDSMAN, ETC. Progress Notes 2223--SPOKE WITH DR. ELDRIDGE, DECLINES ADMIT HERE DUE TO NO PULMONOLOGY SERVICES ALL WEEKEND AND NO INFECTIOUS DISEASE PHYSICIAN HERE. 2224--CALLED [facility]. THEY DO NOT HAVE ANY ICU OR STEPDOWN/TCU BEDS, BUT [facility]PITALIST 2234--SPOKE WITH DR. MORRIS, SHE DECLINES ADMIT, DUE TO NO TCU OR ICU BEDS 2239--CALLED [facility], MESSAGE LEFT ON MACHINE 2243--[facility] CALLED BACK, PAGING DR. EMIYL GRAY, HOSPITALIST 2248--SPOKE WITH DR. GRAY, ACCEPTS PT FOR ADMIT/TRANSFER-TO GO TO ICU Impression Impression: Primary Impression: MILY AND LLL PNEUMONIA Additional Impressions: COPD (chronic obstructive pulmonary disease) AIDS CHF (congestive heart failure) Hypoxia Confusion Sepsis Non-compliance Disposition: 02 XFER SHT-TRM HOSP Condition: Stable Departure-Patient Inst. Referrals: NO,LOCAL PHYSICIAN (PCP/Family) Primary Care Physician KEISHA IVAN DO Oct 30, 2017 21:25
[2017-10-30 21:29] LABS: INR 0.9 (0.8-1.4); PROTHROMBIN TIME PATIENT 11.7 SEC (12.2-14.7)
--- NOTE | 2017-10-30 21:34 | Diagnostic Imaging Report ---
EXAMINATION: Portable erect AP chest at 0904 PM INDICATION: Difficulty breathing The mild cardiomegaly noted on the prior exam of 10/25/17 is again evident and no different. In the interval since the prior study, few faint areas of increased density have developed in the left upper lung and left lung base. These findings are questionable for early/mild pneumonia/atelectasis. The right lung remains clear. The mediastinum is not widened. The osseous structures are intact. IMPRESSION: 1. In the interval since the prior study faint areas of increased density have developed in the left upper lung and left lung base. These findings are suspicious for early/mild pneumonia/atelectasis. Clinical followup is recommended. 2. There is no acute cardiopulmonary abnormality identified otherwise. Dictated by: Dictated on workstation # [id number]
[2017-10-30 21:41] LABS: ALANINE AMINOTRANSFERASE 67 U/L (0-55); ALBUMIN 3.3 GM/DL (3.2-4.5); ALKALINE PHOSPHATASE 157 U/L (40-136); BILIRUBIN,TOTAL 1.4 MG/DL (0.1-1.0); BUN/CREATININE RATIO 24; CALCIUM 8.5 MG/DL (8.5-10.1); CARBON DIOXIDE 23 MMOL/L (21-32); CHLORIDE 102 MMOL/L (98-107); CREATINE KINASE 22 U/L (30-200); CREATININE SERUM 0.84 MG/DL (0.60-1.30); GFR ESTIMATED > 60; GLUCOSE 101 MG/DL (70-105); MAGNESIUM 2.1 MG/DL (1.8-2.4); POTASSIUM 4.3 MMOL/L (3.6-5.0); SODIUM 136 MMOL/L (135-145); TOTAL PROTEIN 7.1 GM/DL (6.4-8.2)
[2017-10-30] MEDS ORDERED: NS IV 1000 ML 1,000 ML IV ONE (22:19)
[2017-10-30] MEDS ORDERED: CEFEPIME INJECTION 2,000 MG in NS (IVPB) 50 ML IV ONE (22:30)
[2017-10-30] MEDS ORDERED: ACETAMINOPHEN 500 MG TAB (TYLENOL) PO ONE (23:15)
[2017-10-30] MEDS ORDERED: methylPREDNISolone 125 MG (Solu-MEDROL) VIAL ONE (23:23)
[2017-10-30 23:33] LABS: BILIRUBIN,URINE NEGATIVE (NEGATIVE); CLARITY,URINE CLEAR; COLOR,URINE YELLOW; GLUCOSE, URINE (UA) NEGATIVE (NEGATIVE); KETONES,URINE NEGATIVE (NEGATIVE); LEUKOCYTE ESTERASE ,URINE NEGATIVE (NEGATIVE); NITRITE,URINE NEGATIVE (NEGATIVE); PH,URINE 8 (5-9); PROTEIN,URINE 1+ (NEGATIVE); UROBILINOGEN,URINE 1 MG/DL (NORMAL)
[2017-10-30 23:43] LABS: BACTERIA,URINE NEGATIVE /HPF; SQUAMOUS EPITHELIAL CELL,UR RARE /HPF
[2017-10-30 23:45] LABS: AMPHETAMINE SCREEN, URINE NEGATIVE (NEGATIVE); BARBITURATE SCREEN URINE NEGATIVE (NEGATIVE); BENZODIAZEPINES SCREEN URINE NEGATIVE (NEGATIVE); CANNABINOID SCREEN, URINE NEGATIVE (NEGATIVE); COCAINE SCREEN URINE NEGATIVE (NEGATIVE); METHADONE STAT NEGATIVE (NEGATIVE); METHAMPHETAMINE SCREEN URINE S NEGATIVE (NEGATIVE); OPIATE SCREEN URINE NEGATIVE (NEGATIVE); OXYCODONE STAT NEGATIVE (NEGATIVE); PROPOXYPHENE STAT NEGATIVE (NEGATIVE); TRICYCLIC ANTIDEPRESSANTS SCRE NEGATIVE (NEGATIVE)
[2017-10-31 00:48] VITALS: BP 138/100
== END 2017-10-31 00:48 | disposition short-term general hospital (02) ==
LOC: EDUNIT# 20:48 → ER 20:49
DX: A41.9 Sepsis, unspecified organism (principal); J18.1 Lobar pneumonia, unspecified organism; J44.9 Chronic obstructive pulmonary disease, unspecified; B20 Human immunodeficiency virus [HIV] disease; I50.9 Heart failure, unspecified; R41.0 Disorientation, unspecified; I25.2 Old myocardial infarction; F17.210 Nicotine dependence, cigarettes, uncomplicated; Z91.14 Patient's other noncompliance with medication regimen; Z86.73 Personal history of transient ischemic attack (TIA), and cerebral infarction without residual deficits; Z88.6 Allergy status to analgesic agent; Z88.8 Allergy status to other drugs, medicaments and biological substances; Z99.81 Dependence on supplemental oxygen
CPT/HCPCS: 36415; 71045; 80053; 80306; 81000; 82550; 82553; 83605; 83735; 83880; 84484; 85025; 85610; 85730; 87040; 87804; 93005; 93041; 94640

== ENCOUNTER 2017-11-13 15:51 | Emergency (ER) | payer MEDICAID ==
[~2017-11-13] VITALS: Ht 185.4 cm; Wt 93.4 kg
--- OUTSIDE RECORDS SUMMARY | 2017-11-13 15:56 | XMS REPORT | Referral Summary ---
Author Author [facility] Organization [facility] Address Unknown Phone Unavailable Care Team Providers Care Rn Or Lpn Name Role Phone Riana Shields PCP Encounter VC Date(s): 11/18/16 - 11/18/16 [facility] [address], [place] [address] Discharge Disposition: Left Against Medical Advice Vital Signs Most recent to 1 oldest [Reference Range]: Temperature Oral 37.4 degC [35.8-37.3 degC] *HI* (11/18/16 9:11 PM) Peripheral Pulse 117 bpm Rate [60-100 bpm] *HI* (11/18/16 9:11 PM) Respiratory Rate 18 br/min [14-20 br/min] (11/18/16 9:11 PM) Blood Pressure 182/124 mmHg [90-140/60-90 mmHg] *HI* (11/18/16 9:11 PM) SpO2 95 % (11/18/16 9:11 PM) Problem List Condition Effective Dates Status Health Status Informant Acute Active pain(Confirmed) At risk for activity Active intolerance(Confirme d)1 At risk of venous 11/10/16 Active thromboembolus(Confi rmed)2 Hernia(Confirmed) Active patient HIV Active patient disease(Confirmed) Knowledge Active deficit(Confirmed)3 Tissue perfusion Active alteration(Confirmed )4 Tobacco Active patient user(Confirmed) 1Problem added automatically by system based on initiation of At Risk for Activity Intolerance Plan of Care 2Problem added by Discern Expert 3Problem added automatically by system based on initiation of Knowledge Deficit Plan of Care 4Problem added automatically by system based on initiation of Tissue Perfusion Cerebral Plan of Care Allergies, Adverse Reactions, Alerts Substance Reaction Severity Status aspirin Active Medications albuterol 2.5 mg/3 mL (0.083%) inhalation solution 2.5 mg 3 mL, Inhalation, TID, 0 Refill(s) Start Date: 11/10/16 Status: Ordered azithromycin 250 mg, Oral, Daily, 0 Refill(s) Start Date: 11/18/16 Status: Ordered Bactrim DS 800 mg-160 mg oral tablet 1 tabs, Oral, Daily, 0 Refill(s) Start Date: 11/18/16 Status: Ordered Breo Ellipta 100 mcg-25 mcg/inh inhalation powder 1 puffs, Inhalation, Daily, 0 Refill(s) Start Date: 11/18/16 Status: Ordered Descovy 200 mg-25 mg oral tablet 1 tabs, Oral, Daily, 0 Refill(s) Start Date: 11/18/16 Status: Ordered fluconazole 100 mg, Oral, Daily, 0 Refill(s) Start Date: 11/18/16 Status: Ordered fluocinonide 0.05% topical cream 1 lianna, Topical, TID, 0 Refill(s) Start Date: 11/18/16 Status: Ordered hydrocortisone 2.5% topical cream 1 lianna, Topical, BID, 0 Refill(s) Start Date: 11/18/16 Status: Ordered lisinopril 10 mg, Oral, Daily, 0 Refill(s) Start Date: 11/18/16 Status: Ordered Lyrica 100 mg, Oral, BID, 0 Refill(s) Start Date: 11/18/16 Status: Ordered Prezcobix 800 mg-150 mg oral tablet 1 tabs, Oral, Daily, with food, 0 Refill(s) Start Date: 11/18/16 Status: Ordered Tivicay 50 mg oral tablet 50 mg 1 tabs, Oral, Daily, 0 Refill(s) Start Date: 11/18/16 Status: Ordered tiZANidine 8 mg, Oral, 4-8 mg as needed, 0 Refill(s) Start Date: 11/18/16 Status: Ordered Ventolin HFA 90 mcg/inh inhalation aerosol 2 puffs, Inhalation, q4hr, as needed for wheezing, 0 Refill(s) Start Date: 11/10/16 Status: Ordered Voltaren 1% topical gel 1 lianna, Topical, QID, 4-6 grams each area, 0 Refill(s) Start Date: 11/18/16 Status: Ordered Results No data available for this section Immunizations No data available for this section Procedures No data available for this section Social History Social History Type Response Smoking Status Current every day smoker; Tobacco use per day: "anywhere from 1/2 a pack to 2 packs a day" Assessment and Plan No data available for this section
--- OUTSIDE RECORDS SUMMARY | 2017-11-13 15:59 | XMS REPORT | Referral Summary ---
Author Author [facility] Organization [facility] Address Unknown Phone Unavailable Care Team Providers Care Regulatory Intern Name Role Phone Riana Shields PCP Encounter [facility] [id number] Date(s): 11/18/16 - 11/18/16 [facility] [address] [place] [address] [phone] Discharge Diagnosis: COPD exacerbation Discharge Disposition: 01-Home or Self Care Attending Physician: Conor Meier MD Admitting Physician: Conor Meier MD Vital Signs Most recent to 1 oldest [Reference Range]: Temperature Oral 36.4 degC [35.8-37.3 degC] (11/18/16 11:08 AM) Peripheral Pulse 92 bpm Rate [60-100 bpm] (11/18/16 12:40 PM) Heart Rate Monitored 87 bpm [60-100 bpm] (11/18/16 2:15 PM) Respiratory Rate 15 br/min [14-20 br/min] (11/18/16 2:15 PM) Blood Pressure 131/89 mmHg [90-140/60-90 mmHg] (11/18/16 2:15 PM) Mean Arterial 101 mmHg Pressure, Cuff (11/18/16 2:15 PM) SpO2 97 % (11/18/16 2:15 PM) Problem List Condition Effective Dates Status [...] Refill(s) Start Date: 11/18/16 Status: Ordered Results Hematology Most recent to 1 oldest [Reference Range]: WBC [4.8-10.8 9.6 10*3/uL 10*3/uL] (11/18/16 11:49 AM) RBC [4.60-6.20] 4.91 (11/18/16 11:49 AM) Hgb [14.0-18.0 14.6 gm/dL gm/dL] (11/18/16 11:49 AM) Hct [42.0-52.0 %] 44.9 % (11/18/16 11:49 AM) MCV [82.0-99.0 fL] 91.4 fL (11/18/16 11:49 AM) MCH [27.0-32.0 pg] 29.7 pg (11/18/16 11:49 AM) MCHC [32.0-36.0 32.5 gm/dL gm/dL] (11/18/16 11:49 AM) RDW [11.5-14.5 %] 15.8 % *HI* (11/18/16 11:49 AM) Platelet [150-400 134 10*3/uL 10*3/uL] *LOW* (11/18/16 11:49 AM) MPV [9.4-12.3 fL] 10.9 fL (11/18/16 11:49 AM) Immature 0.6 % Granulocytes (11/18/16 11:49 AM) [0.0-1.0 %] Neutrophils [51-75 62 % %] (11/18/16 11:49 AM) Lymphocytes [20-46 15 % %] *LOW* (11/18/16 11:49 AM) Monocytes [4-11 %] 15 % *HI* (11/18/16 11:49 AM) Eosinophils [0-4 %] 8 % *HI* (11/18/16 11:49 AM) Basophils [0-2 %] 0 % (11/18/16 11:49 AM) Neutro Absolute 5.90 [1.90-7.00] (11/18/16 11:49 AM) Lymph Absolute 1.43 [0.80-3.30] (11/18/16 11:49 AM) [place] Absolute 1.45 [0.30-1.00] *HI* (11/18/16 11:49 AM) Eos Absolute 0.73 [0.00-0.50] *HI* (11/18/16 11:49 AM) Baso Absolute 0.01 [0.00-0.20] (11/18/16 11:49 AM) Nucleated RBC 0.0 /100 WBC Automated [0 /100 (11/18/16 11:49 AM) WBC] Chemistry Most recent to 1 oldest [Reference Range]: Sodium Lvl [136-144 138 mEq/L mEq/L] (11/18/16 11:50 AM) Potassium Lvl 4.4 mEq/L [3.6-5.1 mEq/L] (11/18/16 11:50 AM) Chloride [99-109 104 mEq/L mEq/L] (11/18/16 11:50 AM) CO2 [22-32 mEq/L] 26 mEq/L (11/18/16 11:50 AM) AGAP [3-20] 8 (11/18/16 11:50 AM) BUN [4-20 mg/dL] 22 mg/dL *HI* (11/18/16 11:50 AM) Glucose Lvl [70-100 98 mg/dL mg/dL] (11/18/16 11:50 AM) Creatinine Lvl 0.79 mg/dL [0.64-1.27 mg/dL] (11/18/16 11:50 AM) eGFR [>60] >60 1 (11/18/16 11:50 AM) Calcium Lvl 8.4 mg/dL [8.6-10.0 mg/dL] *LOW* (11/18/16 11:50 AM) Albumin Lvl [3.5-4.8 2.7 gm/dL gm/dL] *LOW* (11/18/16 11:50 AM) Total Protein 5.5 gm/dL [6.1-7.9 gm/dL] *LOW* (11/18/16 11:50 AM) Globulin [1.9-4.3 2.8 gm/dL gm/dL] (11/18/16 11:50 AM) ALT [17-63 U/L] 70 U/L *HI* (11/18/16 11:50 AM) AST [15-41 U/L] 66 U/L *HI* (11/18/16 11:50 AM) Alk Phos [26-104 94 U/L U/L] (11/18/16 11:50 AM) Bili Total [0.2-1.2 0.8 mg/dL 2 mg/dL] (11/18/16 11:50 AM) Troponin [<0.06 0.28 ng/mL 3 ng/mL] *HHI* (11/18/16 11:50 AM) Blood Glucose, 86 mg/dL Capillary [70-100 (11/18/16 11:46 AM) mg/dL] 1Result Comment: Multiply eGFR results by 1.21 for race. 2Result Comment: Naproxen, specifically the metabolite O-desmethylnaproxen, may cause spurious elevation in Total Bilirubin levels. 3Result Comment: Critical value called, and read-back verified. Called to Marlene Patel 11/18/2016 12:31 Immunizations No data available for this section Procedures No data available for this section Social History Social History Type Response Smoking Status Current every day smoker; Tobacco use per day: "anywhere from 1/2 a pack to 2 packs a day" Assessment and Plan No data available for this section
[2017-11-13] MEDS ORDERED: NS IV 1000 ML 1,000 ML IV SCH (16:00)
[2017-11-13 16:05] VITALS: BP 200/105
--- OUTSIDE RECORDS SUMMARY | 2017-11-13 16:07 | XMS REPORT | Referral Summary ---
Author Author [facility] Organization [facility] Address Unknown Phone Unavailable Care Team Providers Care Sand Slinger Operator Name Role Phone Riana Shields PCP Encounter VC Date(s): 11/19/16 - 11/20/16 [facility] [address] [place] [address] [phone] Discharge Disposition: 62-Inpatient Rehab Facility Attending Physician: Myles Joshi DO Admitting Physician: Myles Joshi DO Vital Signs Most recent to 1 oldest [Reference Range]: Temperature Oral 37 degC [35.8-37.3 degC] (11/20/16 1:44 PM) Peripheral Pulse 96 bpm Rate [60-100 bpm] (11/20/16 9:00 AM) Heart Rate Monitored 92 bpm [60-100 bpm] (11/20/16 3:58 PM) Respiratory Rate 20 br/min [14-20 br/min] (11/20/16 3:43 PM) Blood Pressure 139/99 mmHg [90-140/60-90 mmHg] (11/20/16 1:44 PM) Mean Arterial 115 mmHg Pressure, Cuff (11/19/16 11:30 PM) Systolic Blood 173 mmHg Pressure Invasive 2 *HI* [90-140 mmHg] (11/20/16 6:30 AM) Diastolic Blood 135 mmHg Pressure Invasive 2 *HI* [60-90 mmHg] (11/20/16 6:30 AM) SpO2 97 % (11/20/16 1:44 PM) Remote Telemetry Initiated (11/20/16 12:00 AM) Problem List Condition Effective Dates Status Health Status Informant Acute Active pain(Confirmed) Anxiety(Confirmed)1 Active At risk for activity Active intolerance(Confirme d)2 At risk of venous 11/10/16 Active thromboembolus(Confi rmed)3 Hernia(Confirmed) Active patient HIV Active patient disease(Confirmed) Asthma(Confirmed) Active patient Hypertension(Confirm Active patient ed) Impaired 11/20/16 Active mobility(Confirmed)4 Knowledge Active deficit(Confirmed)5 Methamphetamine Active patient use(Confirmed) Depression(Confirmed Active patient ) Neuropathy(Confirmed Active patient ) Non compliance w Active patient medication regimen(Confirmed) Tissue perfusion Active alteration(Confirmed )6 Tobacco Active patient user(Confirmed) Hepatitis Active patient C(Confirmed) 1Problem added automatically by system based on initiation of Anxiety Plan of Care 2Problem added automatically by system based on initiation of At Risk for Activity Intolerance Plan of Care 3Problem added by Discern Expert 4Problem added by Discern Expert 5Problem added automatically by system based on initiation of Knowledge Deficit Plan of Care 6Problem added automatically by system based on initiation of Tissue Perfusion Cerebral Plan of Care Allergies, Adverse Reactions, Alerts Substance Reaction Severity Status aspirin Active Medications albuterol 2.5 mg/3 mL (0.083%) inhalation solution 2.5 mg 3 mL, NEB, TID, 0 Refill(s) Start Date: 11/10/16 Status: Ordered atorvastatin 20 mg, Oral, Daily, 0 Refill(s) Start Date: 11/20/16 Status: Ordered Coreg 25 mg, Oral, BIDWM, 0 Refill(s) Start Date: 11/20/16 Status: Ordered gabapentin 100 mg oral capsule 200 mg 2 caps, Oral, TID, 0 Refill(s) Start Date: 11/20/16 Status: Ordered hydrALAZINE 50 mg, Oral, TID, 0 Refill(s) Start Date: 11/20/16 Status: Ordered lisinopril 20 mg, Oral, Daily, 0 Refill(s) Start Date: 11/18/16 Status: Ordered MiraLax 17 g, Oral, Daily, 0 Refill(s) Start Date: 11/20/16 Status: Ordered Symbicort 80 mcg-4.5 mcg/inh inhalation aerosol 2 puffs, Inhalation, BID, 0 Refill(s) Start Date: 11/20/16 Status: Ordered Ventolin HFA 90 mcg/inh inhalation aerosol 2 puffs, Inhalation, QID, 0 Refill(s) Start Date: 11/10/16 Status: Ordered Zoloft 50 mg oral tablet 50 mg 1 tabs, Oral, qAM, 0 Refill(s) Start Date: 11/20/16 Status: Ordered Results Hematology Most recent to 1 oldest [Reference Range]: WBC [4.8-10.8 10.1 10*3/uL 10*3/uL] (11/19/16 8:15 PM) RBC [4.60-6.20] 4.70 (11/19/16 8:15 PM) Hgb [14.0-18.0 14.0 gm/dL gm/dL] (11/19/16 8:15 PM) Hct [42.0-52.0 %] 43.0 % (11/19/16 8:15 PM) MCV [82.0-99.0 fL] 91.5 fL (11/19/16 8:15 PM) MCH [27.0-32.0 pg] 29.8 pg (11/19/16 8:15 PM) MCHC [32.0-36.0 32.6 gm/dL gm/dL] (11/19/16 8:15 PM) RDW [11.5-14.5 %] 16.3 % *HI* (11/19/16 8:15 PM) Platelet [150-400 156 10*3/uL 10*3/uL] (11/19/16 8:15 PM) MPV [9.4-12.3 fL] 11.3 fL (11/19/16 8:15 PM) Chemistry Most recent to 1 oldest [Reference Range]: Sodium Lvl [136-144 138 mEq/L mEq/L] (11/19/16 8:15 PM) Potassium Lvl 4.3 mEq/L 1 [3.6-5.1 mEq/L] (11/19/16 8:15 PM) Chloride [99-109 107 mEq/L mEq/L] (11/19/16 8:15 PM) CO2 [22-32 mEq/L] 19 mEq/L *LOW* (11/19/16 8:15 PM) AGAP [3-20] 12 (11/19/16 8:15 PM) BUN [4-20 mg/dL] 26 mg/dL *HI* (11/19/16 8:15 PM) Glucose Lvl [70-100 147 mg/dL mg/dL] *HI* (11/19/16 8:15 PM) Creatinine Lvl 0.79 mg/dL [0.64-1.27 mg/dL] (11/19/16 8:15 PM) eGFR [>60] >60 2 (11/19/16 8:15 PM) Calcium Lvl 8.5 mg/dL [8.6-10.0 mg/dL] *LOW* (11/19/16 8:15 PM) Albumin Lvl [3.5-4.8 3.0 gm/dL gm/dL] *LOW* (11/19/16 8:15 PM) Total Protein 6.0 gm/dL [6.1-7.9 gm/dL] *LOW* (11/19/16 8:15 PM) Globulin [1.9-4.3 3.0 gm/dL gm/dL] (11/19/16 8:15 PM) ALT [17-63 U/L] 73 U/L *HI* (11/19/16 8:15 PM) AST [15-41 U/L] 78 U/L *HI* (11/19/16 8:15 PM) Alk Phos [26-104 104 U/L U/L] (11/19/16 8:15 PM) Bili Total [0.2-1.2 0.9 mg/dL 3 mg/dL] (11/19/16 8:15 PM) Troponin [<0.06 0.18 ng/mL 4 ng/mL] *HHI* (11/19/16 8:15 PM) 1Result Comment: Hemolyzed specimen. The following tests may be affected: ALT, AST, Ammonia, Iron, Potassium, LDH, Amylase, CPK, and Total Bilirubin. 2Result Comment: Multiply eGFR results by 1.21 for race. 3Result Comment: Naproxen, specifically the metabolite O-desmethylnaproxen, may cause spurious elevation in Total Bilirubin levels. 4Result Comment: Critical value called, and read-back verified. Called to Cristina Epstein 11/19/2016 20:55 Immunizations No data available for this section Procedures No data available for this section Social History Social History Type Response Smoking Status Current every day smoker; Tobacco use per day: "anywhere from 1/2 a pack to 2 packs a day" Assessment and Plan No data available for this section
--- NOTE | 2017-11-13 16:09 | ED Dyspnea ---
General Stated Complaint: SOA Source of Information: Patient, EMS History of Present Illness Date Seen by Provider: Nov 13, 2017 Time Seen by Provider: 16:08 Initial Comments This 47-year-old white male presents with the complaint of increasing respiratory distress. Patient has well advanced AIDS and has been evaluated and hospitalized here in [facility] all within the last week. The patient states that he has had a fever today. His cough has been moderately productive. The patient denies chest pain, palpitations, or syncope. Patient is very discouraged and states that he is ready to . Allergies and Home Medications Allergies Coded Allergies: aspirin (Verified Allergy, Unknown, 10/30/17) emtricitabine (Verified Allergy, Unknown, 10/30/17) tenofovir (Verified Allergy, Unknown, 10/30/17) varenicline (Verified Allergy, Unknown, 10/30/17) Patient Home Medication List Home Medication List Reviewed: Yes Constitutional: see HPI, fever, malaise, weakness EENTM: No ear pain, No blurred vision Respiratory: cough, dyspnea on exertion, phlegm, short of breath Cardiovascular: No chest pain, No palpitations Gastrointestinal: No abdominal pain, No diarrhea, No nausea, No vomiting Genitourinary: No dysuria, No frequency Musculoskeletal: No back pain, No joint swelling Skin: No rash Psychiatric/Neurological: Depressed Endocrine: No Symptoms Reported Hematologic/Lymphatic: No Symptoms Reported Past Ulmxicn-[id number]-[id number] Hx Patient Social History Drug of Choice: meth Type Used: Cigarettes Recent Hopitalizations: Yes (ADMNITTED AT [facility] X2 IN LAST WEEK) Immunizations Up To Date PED Vaccines UTD: Yes Seasonal Allergies Seasonal Allergies: No Surgeries History of Surgeries: Yes (LEFT FOOT FX /ORIF; CARDIAC CATH--STENT X 1) Surgeries: Cardiac, Coronary Stent, Orthopedic Respiratory History of Respiratory Disorde: Yes Respiratory Disorders: Pneumonia, Chronic Bronchitis, COPD Cardiovascular History of Cardiac Disorders: Yes (CHF; CARDIAC STENT X 1) Cardiac Disorders: Coronary Artery Disease, Heart Attack, Hypertension Neurological History of Neurological Disord: Yes Neurological Disorders: Stroke Reproductive System HIV/AIDS: Yes (AIDS X 22 YEARS OF 10/2017) Genitourinary History of Genitourinary Disor: Yes Genitourinary Disorders: Renal Failure Gastrointestinal History of Gastrointestinal Di: Yes (HEPATITIS C--NO TREATMENT) Gastrointestinal Disorders: Liver Disease/Jaundice, Hepatitis Musculoskeletal History of Musculoskeletal Dis: Yes (LEFT FOOT FX /ORIF) Musculoskeletal Disorders: Fractures Endocrine History of Endocrine Disorders: No HEENT History of HEENT Disorders: No Cancer History of Cancer: No Psychosocial History of Psychiatric Problem: No Blood Transfusions History of Blood Disorders: Yes Reviewed Nursing Assessment Reviewed/Agree w Nursing PMH: Yes Physical Exam Vital Signs Vital Signs - First Documented 11/13/17 16:05 Temp 98.2 Pulse 84 Resp 18 B/P (MAP) 200/105 (136) Pulse Ox 99 O2 Delivery Nasal Cannula O2 Flow Rate 2.00 Capillary Refill : General Appearance: Cachetic, Mild Distress HEENT: Normal ENT Inspection Neck: Normal Inspection Respiratory: Decreased Breath Sounds Cardiovascular: Regular Rate, Rhythm, No Edema Gastrointestinal: Normal Bowel Sounds, Soft Extremity: Normal Capillary Refill, Normal Range of Motion Neurologic/Psychiatric: No Motor/Sensory Deficits, Normal Mood/Affect Skin: Normal Color, Warm/Dry Focused Exam Evaluation Lactate Level Laboratory Tests 11/13/17 16:37: Lactic Acid Level 0.93 Lactic Acid Level Laboratory Tests Test 11/13/17 16:37 Lactic Acid Level 0.93 MMOL/L (0.50-2.00) Progress/Results/Core Measures Results/Orders Lab Results Laboratory Tests Test 11/13/17 16:05 11/13/17 16:37 Range/Units White Blood Count 9.2 4.3-11.0 10^3/uL Red Blood Count 3.51 L 4.35-5.85 10^6/uL Hemoglobin 10.6 L 13.3-17.7 G/DL Hematocrit 32 L 40-54 % Mean Corpuscular Volume 90 80-99 FL Mean Corpuscular Hemoglobin 30 25-34 PG Mean Corpuscular Hemoglobin Concent 34 32-36 G/DL Red Cell Distribution Width 16.2 H 10.0-14.5 % Platelet Count 167 130-400 10^3/uL Mean Platelet Volume 10.5 H 7.4-10.4 FL Neutrophils (%) (Auto) 69 42-75 % Lymphocytes (%) (Auto) 11 L 12-44 % Monocytes (%) (Auto) 16 H 0-12 % Eosinophils (%) (Auto) 4 0-10 % Basophils (%) (Auto) 0 0-10 % Neutrophils # (Auto) 6.4 1.8-7.8 X 10^3 Lymphocytes # (Auto) 1.0 1.0-4.0 X 10^3 Monocytes # (Auto) 1.5 H 0.0-1.0 X 10^3 Eosinophils # (Auto) 0.3 0.0-0.3 10^3/uL Basophils # (Auto) 0.0 0.0-0.1 10^3/uL Urine Color YELLOW Urine Clarity CLEAR Urine pH 7 5-9 Urine Specific [place] 1.010 L 1.016-1.022 Urine Protein 3+ H NEGATIVE Urine Glucose (UA) NEGATIVE NEGATIVE Urine Ketones NEGATIVE NEGATIVE Urine Nitrite NEGATIVE NEGATIVE Urine Bilirubin NEGATIVE NEGATIVE Urine Urobilinogen 4 H NORMAL MG/DL Urine Leukocyte Esterase NEGATIVE NEGATIVE Urine RBC (Auto) NEGATIVE NEGATIVE Urine RBC NONE /HPF Urine WBC RARE /HPF Urine Squamous Epithelial Cells NONE /HPF Urine Crystals NONE /LPF Urine Bacteria NEGATIVE /HPF Urine Casts NONE /LPF Urine Mucus NEGATIVE /LPF Urine Culture Indicated NO Sodium Level 131 L 135-145 MMOL/L Potassium Level 4.2 3.6-5.0 MMOL/L Chloride Level 101 98-107 MMOL/L Carbon Dioxide Level 22 21-32 MMOL/L Anion Gap 8 5-14 MMOL/L Blood Urea Nitrogen 32 H 7-18 MG/DL Creatinine 0.85 0.60-1.30 MG/DL Estimat Glomerular Filtration Rate > 60 BUN/Creatinine Ratio 38 Glucose Level 82 70-105 MG/DL Calcium Level 8.3 L 8.5-10.1 MG/DL Total Bilirubin 0.7 0.1-1.0 MG/DL Aspartate Amino Transf (AST/SGOT) 54 H 5-34 U/L Alanine Aminotransferase (ALT/SGPT) 70 H 0-55 U/L Alkaline Phosphatase 152 H 40-136 U/L Total Protein 6.3 L 6.4-8.2 GM/DL Albumin 3.3 3.2-4.5 GM/DL Lactic Acid Level 0.93 0.50-2.00 MMOL/L My Orders Orders - TRE BARBOSA MD Cbc With Automated Diff (11/13/17 15:55) Chest 1 View, Ap/Pa Only (11/13/17 15:55) Comprehensive Metabolic Panel (11/13/17 15:55) Ua Culture If Indicated (11/13/17 15:55) Blood Culture (11/13/17 15:57) Lactic Acid Analyzer (11/13/17 15:57) Ns Iv 1000 Ml (Sodium Chloride 0.9%) (11/13/17 16:00) General/Regular (11/14/17 Breakfast) Vital Signs/I&O Vital Sign - Last 12Hours 11/13/17 16:05 Temp 98.2 Pulse 84 Resp 18 B/P (MAP) 200/105 (136) Pulse Ox 99 O2 Delivery Nasal Cannula O2 Flow Rate 2.00 Progress Note : Time: 17:21 Progress Note The patient declined being transferred back to his AIDS doctor in [place]. Dr. Lewis felt that admitting the patient with AIDS here without infectious disease doctor for constipation was not reasonable. The patient again adamantly declined transfer to [place]. He elected to leave AGAINST MEDICAL ADVICE. Patient was invited to return to the hospital at any time for further evaluation and care. Departure Impression Impression: Primary Impression: AIDS Additional Impression: Left lower lobe pneumonia Qualified Codes: J18.1 - Lobar pneumonia, unspecified organism Disposition: Condition: Unchanged Departure-Patient Inst. Decision time for Depature: 17:23 Referrals: NO,LOCAL PHYSICIAN (PCP) Primary Care Physician Patient Instructions: Community-Acquired Pneumonia, Adult (DC), HIV/AIDS Add. Discharge Instructions: Zithromax for pneumonia. Close follow-up with her caregiver choice on Wednesday. Return to the emergency department if any further problems or needs at any time. TRE BARBOSA MD Nov 13, 2017 16:09
--- NOTE | 2017-11-13 16:13 | Diagnostic Imaging Report ---
INDICATION: Shortness of breath. Comparison with 10/30/2017. FINDINGS: Portable chest. The lungs are well-aerated. There is some increased density noted in the lung base on the left. The left upper lung is now clear. The right lung is well-aerated and clear. The heart is not enlarged. There is no pulmonary edema. No pneumothorax or pleural effusion. IMPRESSION: Patchy alveolar infiltrate left lung base. Dictated by: Dictated on workstation # [id number]
[2017-11-13 16:20] LABS: BASOPHILS % (AUTO) 0 % (0-10); EOSINOPHILS # (AUTO) 0.3 10^3/uL (0.0-0.3); EOSINOPHILS % (AUTO) 4 % (0-10); HEMATOCRIT 32 % (40-54); HEMOGLOBIN 10.6 G/DL (13.3-17.7); LYMPHOCYTES % (AUTO) 11 % (12-44); MEAN CORPUSCULAR HEMOGLOBIN 30 PG (25-34); MEAN CORPUSCULAR HGB CONC 34 G/DL (32-36); MEAN CORPUSCULAR VOLUME 90 FL (80-99); MEAN PLATELET VOLUME 10.5 FL (7.4-10.4); MONOCYTES # (AUTO) 1.5 X 10^3 (0.0-1.0); MONOCYTES % (AUTO) 16 % (0-12); NEUTROPHILS # (AUTO) 6.4 X 10^3 (1.8-7.8); NEUTROPHILS % (AUTO) 69 % (42-75); PLATELET COUNT 167 10^3/uL (130-400); RED BLOOD COUNT 3.51 10^6/uL (4.35-5.85); RED CELL DISTRIBUTION WIDTH 16.2 % (10.0-14.5); WHITE BLOOD COUNT 9.2 10^3/uL (4.3-11.0)
--- OUTSIDE RECORDS SUMMARY | 2017-11-13 16:20 | XMS REPORT | Continuity of Care Document ---
Author Author [facility] Organization [facility] Address Unknown Phone Unavailable Allergies Active Description Code Type Severity Reaction Onset Reported/Identified Relationship to Patient Clinical Status Yes aspirin aspirin Drug Allergy Mild VOMITING 12/29/2011 Yes aspirin Drug Allergy N/A Adverse Reaction 01/20/2014 Yes aspirin NKMA N/A N /A 04/24/2015 Yes penicillin NKMA N/A [id number] 04/24/2015 Yes PLASTIC PLASTIC Drug Allergy Mild [...] mL 05/0905/10/2017 IV Piggyback 750 mg 750 tp=196 mL, 100 mL/hr, IV Piggyback, Bedtime (once [...] 05/27/2017 05/27/2017 IV Piggyback 750 mg 750 pz=400 mL, 100 mL/hr, IV Piggyback, q24hr omeprazole(omeprazole) [...] 60 mg , Oral, Daily, 0 Refill(s) HYDROcodone-acetaminophen([place] 10 mg-325 mg oral tablet) 1 tabs [...] 30 Each, 0 Refill(s) ondansetron(Zofran) 2 mL 201710/28/2017 IV Push 4 mg 4 mg=2 mL, IV Push, q6hr, PRN: Nausea glucagon(glucagon) 1 mL 10/25/2017 10/28/2017 IntraMuscular 1 mg 1 mg=1 mL, IntraMuscular, As Indicated, PRN: Hypoglycemia/Low Blood Sugar polyethylene glycol 3350(MiraLax) 1 packets 10/25/2017 10/28/2017 Oral 17 g 17 g=1 packets, Oral, Daily, PRN: Constipation glucose(glucose) 10/25/2017 10/28/2017 Oral 15 g 15 g, Oral, q1hr, PRN: Hypoglycemia/Low Blood Sugar calcium carbonate(Tums) 1 tabs 08/201810/28/2017 Oral 500 mg 500 mg=1 tabs, Oral, q4hr, PRN: GERD/Heartburn Dextrose 50% in Water(Dextrose 50% in Water Injection) 25 mL 10/25/2017 10/28/2017 IV Push 12.5 g 12.5 g=25 mL, IV Push, q15min, PRN: Hypoglycemia/Low Blood Sugar Dextrose 10% in Water(Dextrose 10% in Water 250 mL) 250 mL 10/25/2017 10/28/2017 IV 50 mL/hr, IV acetaminophen(acetaminophen) 2 tabs 10/25/2017 10/28/2017 Oral 650 mg 650 mg=2 tabs, Oral, q4hr, PRN: Other (See Comment) docusate-senna(Senokot S 50 mg-8.6 mg oral tablet) 1 tabs 10/25/2017 10/28/2017 Oral 1 tabs, Oral, Daily, PRN: Constipation atorvastatin(atorvastatin) 1 tabs 10/25/2017 10/27/2017 Oral 20 mg 20 mg=1 tabs, Oral, Daily albuterol(ProAir HFA 90 mcg/inh inhalation aerosol) 2 puffs 10/25/2017 10/25/2017 Inhalation 180 mcg 180 mcg=2 puffs, Inhalation , q4hr, PRN: Bronchospasms clarithromycin(clarithromycin) 1 tabs 10/25/2017 10/28/2017 Oral 500 mg 500 mg=1 tabs, Oral, BIDWM ciprofloxacin(Cipro) 1 tabs 201710/28/2017 Oral 500 mg 500 mg=1 tabs, Oral, BID amLODIPine(amLODIPine) 1 tabs 10/2510/28/2017 Oral 10 mg 10 mg=1 tabs, Oral, Daily clopidogrel(Plavix) 1 tabs 201710/28/2017 Oral 75 mg 75 mg=1 tabs, Oral, Daily darunavir(darunavir) 1 tabs 201710/28/2017 Oral 600 mg 600 mg=1 tabs, Oral, BID dapsone(dapsone) 1 tabs 10/25/2017 10/28/2017 Oral 100 mg 100 mg=1 tabs, Oral, Daily ritonavir(ritonavir) 1 tabs 201710/28/2017 Oral 100 mg 100 mg=1 tabs, Oral, BID etravirine(etravirine) 2 tabs 10/2510/28/2017 Oral 200 mg 200 mg=2 tabs, Oral, BIDPC ethambutol(ethambutol) 4 tabs 10/2510/28/2017 Oral 1,600 mg 1,600 mg=4 tabs, Oral, Daily dolutegravir(dolutegravir) 1 tabs 10/25/2017 10/28/2017 Oral 50 mg 50 mg=1 tabs, Oral, Daily lisinopril(lisinopril) 1 tabs 10/2510/28/2017 Oral 2.5 mg 2.5 mg=1 tabs, Oral, Daily hydrALAZINE(hydrALAZINE) 0.5 mL 08/201810/28/2017 IV Push 10 mg 10 mg=0.5 mL, IV Push, q4hr, PRN: Hypertension/High Blood Pressure gabapentin(gabapentin) 1 caps 10/2510/28/2017 Oral 300 mg 300 mg=1 caps, Oral, TID oxyCODONE(oxyCODONE) 2 tabs 201710/28/2017 Oral 10 mg 10 mg=2 tabs, Oral, q4hr, PRN: Pain Severe (7-10) carvedilol(Coreg) 1 tabs 201710/28/2017 Oral 6.25 mg 6.25 mg=1 tabs, Oral, BIDWM fluticasone-salmeterol(Advair HFA 115 mcg-21 mcg/inh inhalation aerosol) 2 puffs 10/25/20172017 Inhalation 2 puffs, Inhalation, BID tiotropium(Spiriva) 1 caps 201710/28/2017 Inhalation 18 mcg 18 mcg=1 caps, Inhalation, Daily furosemide(Lasix) 4 mL 10/25/2017 10/28/2017 IV Push 40 mg 40 mg=4 mL, IV Push, Daily predniSONE(predniSONE) 2 tabs 10/2510/28/2017 Oral 40 mg 40 mg=2 tabs, Oral, Daily magnesium oxide(magnesium oxide) 1 tabs 10/27/2017 10/28/2017 Oral 400 mg 400 mg=1 tabs, Oral, BIDWM fluticasone-salmeterol(Advair HFA 115 mcg-21 mcg/inh inhalation aerosol) 2 puffs 10/28/2017 Inhalation 2 puffs, Inhalation, BID, 0 Refill(s) carvedilol(Coreg 6.25 mg oral tablet) 1 tabs 10/28/2017 Oral 6.25 mg 6.25 mg=1 tabs, Oral, BIDWM, 0 Refill(s) gabapentin(gabapentin 300 mg oral capsule) 1 caps 10/28/2017 Oral 300 mg 300 mg=1 caps, Oral, TID, 0 Refill(s) oxyCODONE(oxyCODONE 5 mg oral tablet) 2 tabs 10/28/2017 Oral 10 mg 10 mg=2 tabs, Oral, q4hr, PRN: Pain Severe (7-10), 0 Refill(s) predniSONE(predniSONE 20 mg oral tablet) 2 tabs 10/28/2017 10/30/2017 Oral 40 mg 40 mg=2 tabs, Oral, Daily, for 2 days, 4 tabs, 0 Refill(s) furosemide(Lasix 20 mg oral tablet) 3 tabs 10/28/2017 Oral 60 mg 60 mg=3 tabs, Oral, Daily, 90 tabs, 0 Refill(s) magnesium oxide(magnesium oxide 400 mg (241.3 mg elemental magnesium) oral tablet) 1 tabs 10/28/2017 11/11/2017 Oral 400 mg 400 mg =1 tabs, Oral, Daily, for 14 days, 14 tabs, 0 Refill(s) Problems Date Dx Coded Attending Type Code Diagnosis Diagnosed By 01/20/2014 Magdy Golden MD Final 305.1 TOBACCO USE DISORDER 01/20/2014 [place] [...] status 03/19/2016 Rosendo Farias Final Z79.899 Other half-way (current) drug therapy 11/10/2016 Muñoz Paul Admitting [...] J96.01 Acute respiratory failure with hypoxia 11/19/2016 Ari,, Austin Reason R45.851 Suicidal ideations 11/19/2016 Joshi,, Myles [...] Myles Final G62.9 Polyneuropathy, unspecified 11/30/2016 Joshi,, Myles Final I11.0 Hypertensive heart disease with heart failure 11/30/2016 Joshi,, Myles Final I25.5 Ischemic cardiomyopathy 11/30/2016 Joshi,, Myles Final I50.9 Heart failure, unspecified 11/30/2016 Joshi,, Myles Final J44.9 Chronic obstructive pulmonary disease, unspecified 11/30/2016 Joshi,, Myles Final J45.909 Unspecified asthma, uncomplicated 11/30/2016 Joshi,, Myles Final M62.81 Muscle weakness (generalized) 11/30/2016 Joshi,, Myles Final Z91.19 Patient''s noncompliance with other medical treatment and regimen 11/30/2016 Madelyn,Myles Final R53.81 Other malaise 12/14/2016 Flores John Admitting B20 12/22/2016 Bruey,, Odilia Final F17.210 Nicotine dependence, cigarettes, uncomplicated 12/22/2016 Bruey,, Odilia Final I10 Essential (primary) hypertension 12/22/2016 Bruey,, Odilia Final 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 12/22/2016 Bruey,, Odilia Final I80.02 Phlebitis and thrombophlebitis of superficial vessels of left lower extremi 12/22/2016 Bruey,, Odilia Final J44.9 Chronic obstructive pulmonary disease, unspecified 12/22/2016 Bruey,, Odilia Reason R10.9 Unspecified abdominal pain 12/22/2016 Ismael,, Odilia Final Z86.73 Personal history of transient ischemic attack (TIA), and cerebral infarctio 12/22/2016 Mark,Rick Final B20 Human immunodeficiency virus [HIV] disease 12/22/2016 Mark,Rick Final E83.39 Other disorders of phosphorus metabolism 12/22/2016 Mark,, Rick Final E83.42 Hypomagnesemia 12/22/2016 Mark,Rick Final E87.5 Hyperkalemia 12/22/2016 Mark,, Rick Final F15.10 Other stimulant abuse, uncomplicated 12/22/2016 Mark,Rick Final F17.210 Nicotine dependence, cigarettes, uncomplicated 12/22/2016 Mark,Rick Final F32.9 Major depressive disorder, single episode, unspecified 12/22/2016 Forge,, Rick Final F39 Unspecified mood [affective] disorder 12/22/2016 Mark,, Rick Final G62.9 Polyneuropathy, unspecified 12/22/2016 Mark,, Rick Final I11.0 Hypertensive heart disease with heart failure 12/22/2016 Mark,, Rick Final I25.5 Ischemic cardiomyopathy 12/22/2016 Mark,, Rick Final I50.20 Unspecified systolic (congestive) heart failure 12/22/2016 Mark,, Rick Final J44.9 Chronic obstructive pulmonary disease, unspecified 12/22/2016 Forgcassie,Rick Final J45.909 Unspecified asthma, uncomplicated 12/22/2016 Mark,Rick Final K52.9 Noninfective gastroenteritis and colitis, unspecified 12/22/2016 Flores John Admitting N17.9 Acute kidney failure, unspecified 12/22/2016 Mark,Rick Final R10.9 Unspecified abdominal pain 12/22/2016 Mark,Rick [...] B20 Human immunodeficiency virus [HIV] disease 04/23/2017 Cornelius,Riana Final E46 Unspecified protein-calorie malnutrition 04/23/2017 Cornelius,Riana Final E83.39 Other disorders of phosphorus metabolism 04/23/2017 Cornelius,Riana Final E87.1 Hypo-osmolality and hyponatremia 04/23/2017 Cornelius,Riana Final F15.10 Other stimulant abuse, uncomplicated 04/23/2017 Cornelius,Riana Final F17.210 Nicotine dependence, cigarettes, uncomplicated 04/23/2017 Cornelius,Riana Final G62.9 Polyneuropathy, unspecified 04/23/2017 Cornelius,Riana Final I11.0 Hypertensive heart disease with heart failure 04/23/2017 Cornelius,Riana Final 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, bilateral 04/23/2017 Sweet,Riana Final J44.9 Chronic obstructive pulmonary disease, unspecified 04/23/2017 Sweet,Riana Final K21.9 Gastro-esophageal reflux disease without esophagitis 04/23/2017 Sweet,Riana Final K80.20 Calculus of gallbladder without cholecystitis without obstruction 04/23/2017 Sweet,Riana Final M48.07 Spinal stenosis, lumbosacral region 04/23/2017 Sweet,Riana Final M51.27 Other intervertebral disc displacement, lumbosacral region 04/23/2017 Sweet,Riana Final R07.9 Chest pain, unspecified 04/23/2017 Sweet,Riana Final R10.11 Right upper quadrant pain 04/23/2017 Cornelius,Riana Final R33.9 Retention of urine, unspecified 04/23/2017 Cornelius,Riana Admitting R53.1 Weakness 04/23/2017 Cornelius,Riana Final R74.0 Nonspecific elevation of levels of transaminase and lactic acid dehydrogena 04/23/2017 Cornelius,Riana Final Z59.0 Homelessness 04/24/2017 Cornelius,Riana Final N17.9 Acute kidney failure, unspecified 05/08/2017 Mathias Samuel Admitting B20 05/10/2017 Meier Howard Final B19.20 Unspecified viral hepatitis C without hepatic coma 05/10/2017 Meier Howard Final B20 Human immunodeficiency virus [HIV] disease 05/10/2017 Meier Howard Final F17.210 Nicotine dependence, cigarettes, uncomplicated 05/10/2017 Meier Howard Final F32.9 Major depressive disorder, single episode, unspecified 05/10/2017 Meier Howard Final F41.9 Anxiety disorder, unspecified 05/10/2017 Meier Howard Final I10 Essential (primary) hypertension 05/10/2017 Meier Howard Final I25.2 Old myocardial infarction 05/10/2017 Meier Howard Final J44.1 Chronic obstructive pulmonary [...] Final F17.210 Nicotine dependence, cigarettes, uncomplicated 05/24/2017 Milo,Yvette Final F32.9 Major depressive disorder, single episode, unspecified 05/24/2017 Pedraza Jennifer Final G89.29 Other chronic pain 05/24/2017 Pedraza Jennifer Final I10 Essential (primary) hypertension 05/24/2017 Pedraza Jennifer Final 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 06/01/2017 Mey,Sacha [...] disease, unspecified 06/12/2017 Wanda,Gennaro Admitting R41.82 06/15/2017 Miyaunda,Gennaro Final B19.20 Unspecified viral hepatitis C without hepatic coma 06/15/2017 Ndunda,Gennaro Final D63.8 Anemia in other chronic diseases classified elsewhere 06/15/2017 Ndunda,, Gennaro Final D69.6 Thrombocytopenia, unspecified 06/15/2017 Ndunda,, Gennaro Final E87.1 Hypo-osmolality and hyponatremia 06/15/2017 Ndunda,, Gennaro Final E87.2 Acidosis 06/15/2017 Ndunda,, Gennaro Final E87.3 Alkalosis 06/15/2017 Ndunda,Gennaro Final F17.210 Nicotine dependence, cigarettes, uncomplicated 06/15/2017 Ndunda,, Gennaro Final F41.9 Anxiety disorder, unspecified 06/15/2017 Ndunda,, Gennaro Final G93.40 Encephalopathy, unspecified 06/15/2017 Ndunda,Gennaro Final [...] weakness (generalized) 06/15/2017 Ndunda,, Gennaro Final R40.2410 [place] coma scale score 13-15, unspecified time 06/15/2017 Miyaunda,, Gennaro Final Z21 Asymptomatic human immunodeficiency virus [HIV] infection status 06/15/2017 Ndunda,, Gennaro Final Z86.73 Personal history of [...] S F I25.10 ATHSCL HEART DISEASE OF [place] CORONARY ARTERY W/O 06/20/2017 Mynor Michel S F I27.20 PULMONARY HYPERTENSION, UNSPECIFIED 06/20/2017 Mynor Michel S F I45.81 LONG QT SYNDROME 06/20/2017 Mynor Michel S F I50.30 UNSPECIFIED DIASTOLIC (CONGESTIVE) HEART FAILURE 06/20/2017 Mynor Michel J44.1 CHRONIC OBSTRUCTIVE PULMONARY DISEASE W (ACUTE) EX 06/20/2017 Anand Mynor S F J96.01 ACUTE RESPIRATORY FAILURE WITH HYPOXIA 06/20/2017 Mynor Michel S F N18.9 CHRONIC KIDNEY DISEASE, UNSPECIFIED 06/20/2017 Anand Mynor S F R19.7 DIARRHEA, UNSPECIFIED 06/20/2017 Anand Mynor S F R62.7 ADULT FAILURE TO THRIVE 06/20/2017 Anand Mynor S F Z86.73 PRSNL HX OF TIA (TIA), AND CEREB INFRC W/O RESID D 07/08/2017 Harriett,Rick B19.20 Unspecified viral hepatitis C without hepatic coma 07/08/2017 Harriett,Rick B20 Human immunodeficiency virus [HIV] disease 07/08/2017 Harriett,Rick F17.210 Nicotine dependence, cigarettes, uncomplicated 07/08/2017 Harriett,Rick M79.609 Pain in unspecified limb 07/08/2017 Lorenzana John Reason R06.00 Dyspnea, unspecified 07/08/2017 Harriett,Rick W19.XXXA Unspecified fall, initial encounter 07/08/2017 Harriett,Rick Z86.73 Personal history of transient ischemic attack (TIA), and cerebral infarctio 07/10/2017 Wanda,Gennaro Admitting I95.89 07/14/2017 Wanda,Gennaro Final A31.9 Mycobacterial infection, unspecified 07/14/2017 Wanda,Gennaro Final B20 Human immunodeficiency virus [HIV] disease 07/14/2017 Wanda,Gennaro F17.210 Nicotine dependence, cigarettes, uncomplicated 07/14/2017 Wanda,, Gennaro Final F32.9 Major depressive disorder, single episode, unspecified 07/14/2017 Wanda,Gennaro Final I10 Essential (primary) hypertension 07/14/2017 Wanda,Gennaro Final 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 [...] Abdul DO I25.10 ATHSCL HEART DISEASE OF [place] CORONARY ARTERY W/O 10/12/2017 Herbert Abdul DO I25.2 OLD MYOCARDIAL INFARCTION 10/12/2017 Herbert Abdul DO I45.81 LONG QT SYNDROME 10/12/2017 Herbert Abdul DO A [place] I50.30 UNSPECIFIED DIASTOLIC (CONGESTIVE) HEART FAILURE 10/12/2017 Herbert Abdul DO J18.9 PNEUMONIA, UNSPECIFIED ORGANISM 10/12/2017 Herbert Abdul DO A [place] J44.1 CHRONIC OBSTRUCTIVE PULMONARY DISEASE W (ACUTE) EX 10/12/2017 Herbert Abdul DO J45.909 UNSPECIFIED ASTHMA, UNCOMPLICATED 10/12/2017 Herbert Abdul DO A [place] J96.01 ACUTE RESPIRATORY FAILURE WITH HYPOXIA 10/12/2017 Herbert Abdul DO A F N17.9 ACUTE KIDNEY FAILURE, UNSPECIFIED 10/12/2017 Herbert Abdul DO A [place] N18.9 CHRONIC KIDNEY DISEASE, UNSPECIFIED 10/12/2017 Herbert Abdul DO A Adrienne R06.02 SHORTNESS OF BREATH 10/12/2017 Herbert Abdul DO Z21 ASYMPTOMATIC HUMAN IMMUNODEFICIENCY VIRUS INFECTIO 10/12/2017 Herbert Abdul DO Z86.73 PRSNL HX OF TIA (TIA), AND CEREB INFRC W/O RESID D 10/12/2017 Abdul DO, Ehrbert A F Z91.14 PATIENT'S OTHER NONCOMPLIANCE WITH MEDICATION CHERYL 10/25/2017 Marysole,Rick Final A31.0 Pulmonary mycobacterial infection 10/25/2017 Mark,Rick Admitting B20 Human immunodeficiency virus [HIV] disease 10/25/2017 Forge,, Rick Final D63.8 Anemia in other chronic diseases classified elsewhere 10/25/2017 Forge,, Rick Final E87.2 Acidosis 10/25/2017 Forge,, Rick Final E87.5 Hyperkalemia 10/25/2017 Forge,, Rick Final F15.10 Other stimulant abuse, uncomplicated 10/25/2017 Forge,, Rick Final F17.210 Nicotine dependence, cigarettes, uncomplicated 10/25/2017 Forge,, Rick Final F32.9 Major depressive disorder, single episode, unspecified 10/25/2017 Forge,, Rick Final F39 Unspecified mood [affective] disorder 10/25/2017 Forge,, Rick Final G62.9 Polyneuropathy, unspecified 10/25/2017 Forge,, Rick Final G89.29 Other chronic pain 10/25/2017 Forge,, Rick Final G93.40 Encephalopathy, unspecified 10/25/2017 Forge,, Rick Final I11.0 Hypertensive heart disease with heart failure 10/25/2017 Forge,, Rick Final I21.A1 Myocardial infarction type 2 10/25/2017 Forge,, Rick Final 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 10/25/2017 Forge,, Rick Final I25.2 Old myocardial infarction 10/25/2017 Forge,, Rick Final I27.23 Pulmonary hypertension due to lung diseases and hypoxia 10/25/2017 Forge,, Rick Final I42.9 Cardiomyopathy, unspecified 10/25/2017 Forge,, Rick Final I45.81 Long QT syndrome 10/25/2017 Forge,, Rick Final I50.23 Acute on chronic systolic (congestive) heart failure 10/25/2017 Forge,, Rick Final J44.1 Chronic obstructive pulmonary disease with (acute) exacerbation 10/25/2017 Forge,, Rick Final J96.01 Acute respiratory failure with hypoxia 10/25/2017 Forge,, Rick Final N17.9 Acute kidney failure, unspecified 10/25/2017 Forge,, Rick Final R00.0 Tachycardia, unspecified 10/25/2017 Forge,, Rick Final R74.0 Nonspecific elevation of levels of transaminase and lactic acid dehydrogena 10/25/2017 Mark,Rick Final Z66 Do not resuscitate 10/25/2017 Forge,, Rick Final Z86.73 Personal history of transient ischemic attack (TIA), and cerebral infarctio 10/25/2017 Mark,, Rick Final Z91.14 Patient''s other noncompliance with medication regimen 10/25/2017 Mark,, Rick Final Z91.19 Patient''s noncompliance with other medical treatment and regimen 10/26/2017 Mark,Rick Final B20 Human immunodeficiency virus [HIV] disease 10/29/2017 Ndunda,, Gennaro Final A31.9 Mycobacterial infection, unspecified 10/29/2017 Ndunda,, Gennaro Final B19.20 Unspecified viral hepatitis C without hepatic coma 10/29/2017 Ndunda,, Gennaro Final B20 Human immunodeficiency virus [HIV] disease 10/29/2017 Ndunda,, Gennaro Final D63.8 Anemia in other chronic diseases classified elsewhere 10/29/2017 Ndunda,, Gennaro Final F17.210 Nicotine dependence, cigarettes, uncomplicated 10/29/2017 Ndunda,, Gennaro Final F32.9 Major depressive disorder, single episode, unspecified 10/29/2017 Ndunda,, Gennaro Final G62.9 Polyneuropathy, unspecified 10/29/2017 Ndunda,, Gennaro Final G89.29 Other chronic pain 10/29/2017 Ndunda,, Gennaro Final I11.0 Hypertensive heart disease with heart failure 10/29/2017 Ndunda,, Gennaro Final I27.21 Secondary pulmonary arterial hypertension 10/29/2017 Ndunda,, Gennaro Final I45.81 Long QT syndrome 10/29/2017 Ndunda,, Gennaro Final I50.23 Acute on chronic systolic (congestive) heart failure 10/29/2017 Ndunda,, Gennaro Final J44.1 Chronic obstructive pulmonary disease with (acute) exacerbation 10/29/2017 Ndunda,, Gennaro Final J96.01 Acute respiratory failure with hypoxia 10/29/2017 Ndunda,, Gennaro Final R10.11 Right upper quadrant pain 10/29/2017 Muñoz Paul Final Z66 Do not resuscitate 10/29/2017 Muñoz Paul Final Z91.14 Patient''s other noncompliance with medication regimen Procedures Code Description Performed By Performed On [id number] Introduction of Anti- inflammatory into Spinal Canal, Percutaneous Approach 04/15/2017 [id number] Fluoroscopy of Multiple Coronary Arteries using Low Osmolar Contrast 10/18/2017 <section xmlns="urn:hl7-org:v3" xmlns:xsi="http://[email or web address]/2001/ XMLSchema-instance"> <templateId root="[id number]" /> < templateId root="[id number]" /> <code codeSystemName= "LOINC" codeSystem="[email or web address]" code="84341-8" displayName="Results" /> <title>Results</title> <text> <table> <thead> <tr> [...] k/cumm</td> <td>150-450</td> </tr> <tr> <th colspan="10">METABOLIC PANEL, COMPREHN - 04/27/16 03:30</th> </tr> <tr> <td>POTASSIUM</td> <td>4.2 [...] <td>WBC</td> <td>7.5 K /uL</td> <td>4.8-10.8</td> </tr> <tr> < colspan="10">Urinalysis with reflex microscopic - 05/06/17 21:06</th> [...] <td>Pos 1+ NA</td> <td>Negative</td> </tr> <tr> <td>Specific [place]</ td> <td>1.020 NA</td> <td>1.003-1.030</td> </tr> <tr> <td>UA [...] Urine</td> <td>0 /HPF</td> <td >0-4</td> </tr> <tr> <th colspan="10">Basic Metabolic Panel (BMP) - 05/06/17 21:06</th> [...] <td>Sodium</td> <td>134 mEq/L</td> < td>136-144</td> </tr> <tr> <th colspan="10">eGFR - 21:06</th> </tr> <tr> <td>eGFR</td> <td>> [...] Peptide</td> <td>46 pg/mL</td> <td>0- 99</td> </tr> <tr> < colspan="10">Lactic Acid NPT - 21:52</th> </tr> <tr> [...] <td>Protein</td> <td>Negative NA</td> <td>Negative</td> </tr> <tr> <td>Specific [place]</td> <td>1.010 NA </td> <td>1.003-1.030</td> </tr> <tr> <td>UA [...] > <td>Negative NA</td> <td /> </tr> <tr> <th colspan="10">Sodium Random Urine - 05/09/17 01:50</th> </tr> <tr> <td>Sodium Random Urine</td> <td>71 mEq/L</td> <td /> </tr> <tr> < colspan="10">Creatinine Random Urine - 05/09/17 01:50</th> </tr> <tr> <td>Creatinine Random Urine</td> <td>40 mg/dL</td> <td /> </tr> <tr> < colspan="10">Urea Nitrogen Random - 05/09/17 01:50</th> </tr> <tr> <td>Urea Nitrogen Random</td> <td>615 mg/dL</td> <td /> </tr> <tr> < colspan="10"> Histoplasma Ag, U - 05/09/17 01:50</th> </tr> <tr> <td> Histoplasma Ag, U</td> <td>Negative NA</td> <td>Negative</td> </tr> <tr> <td>Histoplasma Ag, U Value</td> <td >0.00 ng/mL</td> <td /> </tr> <tr> < colspan= "10">Comprehensive Metabolic Panel (CMP) - 05/09/17 [...] <td>Sodium</td> <td>130 mEq/L</td> <td> 136-144</td> </tr> <tr> <th colspan="10">Phosphorus - 06:46</th> </tr> <tr> <td>Phosphorus</td> <td>5.9 mg/dL</td> <td>2.4-4.7</td> </tr> <tr> < th colspan="10">Magnesium - 05/09/17 06:46</th> </tr> <tr> <td>Magnesium</td> <td>1.8 mg/dL</td> <td>1.8-2.5</td> </tr> <tr> <th colspan="10">LDH - 05/09/17 06:46</th> </tr> <tr> <td>LDH</td> <td>144 U/L</td> <td >98-192</td> </tr> <tr> < colspan="10">Acetaminophen - 05/09/17 06:46</th> </tr> <tr> <td>Acetaminophen</td> <td><10 mcg/mL</td> <td>10-30</td> </tr> <tr> < colspan="10">eGFR - 05/09/17 06:46</th> </tr> <tr> <td>eGFR</td> [...] < td>WBC</td> <td>9.2 K/uL</td> <td>4.8-10.8</td> </tr> <tr> < colspan="10">Phosphorus - 05/10/17 05:28</th> </ tr> <tr> <td>Phosphorus</td> <td>5.2 mg/dL</td> <td>2.4-4.7</td> </tr> <tr> < colspan="10"> Magnesium - 05/10/17 05:28</th> </tr> <tr> <td>Magnesium< /td> <td>1.9 mg/dL</td> <td>1.8-2.5</td> </tr> < tr> < colspan="10">Comprehensive Metabolic Panel (CMP) - 05/10/17 05: [...] <tr> <td>Sodium</td> <td>127 mEq/L</td> <td>136-144</td> </tr> <tr> <th colspan="10">eGFR - 05/10/17 15:30</th> </tr> <tr> <td>eGFR</td> [...] <td>Protein</td> <td>Negative NA</td> <td>Negative</td> </tr> <tr> <td>Specific [place]</td> <td>1.020 NA</td> <td>1.003-1.030 </td> </tr> <tr> <td>UA [...] <td>Negative NA</td> <td> Negative</td> </tr> <tr> <td>Specific [place]</td> <td>1.015 NA</td> <td>1.003-1.030</td> </tr> <tr> <td>UA Collection type</td> <td>Clean Catch NA</td> < td /> </tr> <tr> <td>Urobilinogen</td> <td>2.0 mg/dL</td> <td><1.0</td> </tr> <tr> < colspan="10">Magnesium - 05/17/17 05:50</th> </tr> <tr> < td>Magnesium</td> <td>1.9 mg/dL</td> <td>1.8-2.5</td> < /tr> <tr> < colspan="10">Comprehensive Metabolic Panel (CMP) - 05/17/17 05:50</th> [...] <td>Magnesium</td> <td>1.8 mg/dL</td> <td>1.8-2.5</td> </tr> <tr> <th colspan="10">eGFR - 13:05</th> </tr> <tr> <td>eGFR</td> <td>& [...] </td> <td>6.5 g/dL</td> <td>6.1-7.9</td> </tr> < tr> <th colspan="10">Blood Gases, Arterial (RT) - 05/27/17 13:08</th> [...] mEq/L</td> <td>136-144</td> </tr> <tr> <th colspan="10">eGFR - 06/11/17 17:15</th> </tr> <tr> <td> eGFR</td> <td>>60 mL/min</td> <td>>60</td> </tr> <tr> <th colspan="10">TSH with Reflex Free T4 - 06/11/17 [...] TOTAL</td> <td>85 IU/L</td > <td>45-117</td> </tr> <tr> <th colspan="10"> LACTIC ACID - 06/20/17 19:58</th> </tr> [...] 00:42</th> </tr> <tr> <td>RNA HIV 1 QUANTITATIVE</td> <td>[id number] /mL</td > <td><20 COPIES</td> </tr> <tr> <td>RNA [...] GRANULOCYTE #</td> <td>0.05 k/cumm</td> <td>0.00-0.09</td> </tr> <tr> <th colspan="10">LACTIC ACID - 06/21/17 03:09</ th> </tr> [...] <td>PHOSPHORUS</td> <td>2.9 mg/dL</td> <td>2.5- 4.9</td> </tr> <tr> <th colspan="10">CBC With Platelet and Differential - 07/05/17 [...] <td>WBC</td> <td>6.1 K/uL</td> <td>4.8-10.8</td> < /tr> <tr> <th colspan="10">Comprehensive Metabolic Panel (CMP) - 07/10/17 20:39</th> [...] Venous NPT</td> <td>12.9 g/dL</td> <td>14.0-16.0</td> </tr> <tr> < colspan="10">Lactic Acid NPT - 07/10/17 20 :53</th> </tr> <tr> <td>Lactic Acid NPT</td> <td >1.5 mEq/L</td> <td>0.5-2.0</td> </tr> <tr> < colspan="10">Troponin - 07/10/17 20:56</th> </tr> <tr> < td>Troponin</td> <td><0.05 ng/mL</td> <td><0.06</td> </tr> <tr> <th colspan="10">Urinalysis with reflex microscopic - 07/10/17 22:18</th> [...] <td>Pos 2+ NA</td> <td>Negative</td> </tr> <tr> <td>Specific Etna</td> <td>1.020 NA</ td> <td>1.003-1.030</td> </tr> <tr> <td>UA [...] Urine</td> <td>5 /HPF< /td> <td>0-4</td> </tr> <tr> < colspan="10"> CBC With Platelet and Differential - [...] <td>LACTIC ACID</td> <td>2.5 mmol/L</td> <td>0.5-2.0</td> </tr> <tr> < colspan="10">CBC W/DIFF - 10/12/17 23:39</ th> </tr> [...] <td> </td> <td /> </tr> <tr> <th colspan="10">ARTERIAL BLOOD GAS - 10/13/17 00:20</th> </tr> [...] <td> </td> <td /> </tr> <tr> <th colspan="10">LABORATORY MISCELLANEOUS TEST - 10/13/17 02:07</th> </tr> <tr> <td>PERFORMING LAB</td> <td>[facility] </td> <td /> </tr> <tr> <td> LABORATORY TEST REF RANGE</td> <td>< 80 pg/mL </td> <td /> </tr> <tr> <td>LABORATORY TEST RESULT</td> <td> 38 pg/mL </td> <td /> </tr> <tr> <td>LABORATORY TEST</td> <td>FUNGITELL,SERUM </td> <td /> </tr> <tr> <th colspan="10">VIRUS RESPIRATORY PROFILE - 10/13/17 02:12</th > </tr> <tr> <td>Microbiology</td> <td> </td> <td /> </tr> <tr> <th colspan="10">FUNGUS CULTURE - 10/13/17 02:14</th> </tr> <tr> <td>Microbiology </td> <td> </td> <td /> </tr> <tr> <th colspan="10">LACTIC ACID - 10/13/17 02:15</th> </tr> <tr> <td>LACTIC ACID</td> <td>2.3 mmol/L</td> <td>0.5-2.0</td> </tr> <tr> <th colspan="10">LACTIC ACID - 10/13/17 06:26</ th> </tr> <tr> <td>LACTIC ACID</td> <td>3.8 mmol /L</td> <td>0.5-2.0</td> </tr> <tr> <th colspan= "10">LACTATE DEHYDROGENASE (LDH/LD) - 10/13/17 06:26</th> </tr> < tr> <td>LACTATE DEHYDROGENASE (LDH/LD)</td> <td>378 Units/L</ td> <td>81-234</td> </tr> <tr> <th colspan="10"> CD4/8 RATIO - 10/13/17 06:26</th> </tr> <tr> <td>CD 3/4 POSITIVE</td> <td>5 %</td> <td>34-68</td> </tr> <tr> <td>CD 3/4 ABSOLUTE</td> <td>39 #</td> <td> 250-2400</td> </tr> <tr> <td>CD 3/8 POSITIVE</td> <td>77 %</td> <td>6-41</td> </tr> <tr> < td>CD 3/8 ABSOLUTE</td> <td>602 #</td> <td>150-1800</td> </tr> <tr> <td>CD 4/8 RATIO</td> <td>0.1 </td> <td>0.6-4.0</td> </tr> <tr> <th colspan="10">LACTIC ACID - 10/13/17 08:59</th> </tr> <tr> <td>LACTIC ACID</td > <td>4.3 mmol/L</td> <td>0.5-2.0</td> </tr> <tr > <th colspan="10">Comprehensive Metabolic Panel (CMP) - 10/13/17 18:04 </th> </tr> <tr> <td>Albumin</td> <td>3.4 g/dL</ td> <td>3.5-4.8</td> </tr> <tr> <td>Alkaline Phosphatase</td> <td>101 U/L</td> [...] <td>Sodium</td> <td>136 mEq/L</td> <td>136-144</td> </tr> <tr> <th colspan="10"> Magnesium - 10/13/17 18:04</th> </tr> <tr> <td>Magnesium< /td> <td>1.8 mg/dL</td> <td>1.8-2.5</td> </tr> < tr> <th colspan="10">Phosphorus - 10/13/17 18:04</th> </tr> <tr> <td>Phosphorus</td> <td>4.4 mg/dL</td> <td> 2.4-4.7</td> </tr> <tr> <th colspan="10">eGFR - 10/13/17 18:04</th> </tr> <tr> <td>eGFR</td> [...] <td>VLDL Cholesterol</td> <td>33 mg/dL</td> <td>0-28</td> </tr> <tr> < colspan="10">CBC With Platelet and Differential - 10/14/17 [...] BELOW </td> <td /> </tr> < tr> <th colspan="10">Lactic Acid Venous - 10/14/17 12:38</th> </ [...] <td>Glucose NPT</td> <td>97 mg/dL</td> <td>70-100</td> </tr> <tr> <th colspan="10">Urinalysis with reflex microscopic - 10/14/17 15:12</th> [...] 2+ NA</td> <td> Negative</td> </tr> <tr> <td>Specific Etna</td> <td>1.020 NA</td> <td>1.003-1.030</td> </tr> <tr> <td>UA Collection [...] Acid Venous</td> <td>2.5 mEq/L</td> <td>0.5-2.0</td> </tr> <tr> <th colspan="10">Troponin - 10/14/17 16:06</th > </tr> <tr> [...] /> </tr> <tr> <td>Hepatitis C viral RNA</td> <td>60030200 IU/mL</td> <td /> </tr> <tr> <th colspan="10">Glucose [...] <tr> <td>Procalcitonin</td> <td>0.21 ng/mL</td> <td>0.00-0.09</td> </tr> <tr> <th colspan="10">Acetaminophen - 10/15/17 03:15</th> </tr> < tr> [...] <tr> <td>Troponin</td> <td>1.49 ng/mL</td> <td><0.06</td> </tr> <tr> < colspan="10">Glucose NPT - 10/15/17 11:44</th> </tr> < [...] <td>Pos 1+ NA</td> <td>Negative</td> </tr> <tr> <td>Specific Etna</td> <td>1.010 NA</ td> <td>1.003-1.030</td> </tr> <tr> <td>UA [...] <td>Acetone</td> <td> Negative mg/dL</td> <td>Negative</td> </tr> <tr> <th colspan="10">Cortisol AM - 10/15/17 14:46</th> </tr> <tr> <td>Cortisol AM</td> <td>8 ug/dL</td> <td>7-18</td> </tr> <tr> <th colspan="10">Insulin - 10/15/17 14:46</th> </tr> <tr> <td>Insulin</td> [...] > <td>8.6 K/uL</td> <td>4.8-10.8</td> </tr> <tr > <th colspan="10">Lactic Acid Venous - 10/16/17 03:45</th> </tr > <tr> <td>Lactic Acid Venous</td> <td>1.5 mEq/L</td> <td>0.5-2.0</td> </tr> <tr> <th colspan="10"> PTT - 10/16/17 03:45</th> </tr> <tr> <td>PTT</td> <td>140.9 seconds</td> <td>25.0-35.0</td> </tr> <tr> <th colspan="10">Troponin - 10/16/17 05:37</th> </tr> <tr > [...] NPT</td> <td>126 mg/dL</td > <td>70-100</td> </tr> <tr> <th colspan="10"> Protime (INR) - 10/17/17 09:07</th> </tr> <tr> <td>INR</ td> <td>1.1 NA</td> <td>0.9-1.2</td> </tr> <tr> <th colspan="10">PTT - 10/17/17 09:07</th> </tr> <tr> <td>PTT</td> <td>61.7 seconds</td> <td>25.0-35.0</td> </tr> <tr> <th colspan="10">CBC With Platelet and Differential - 10/17/17 [...] <td> 136-144</td> </tr> <tr> <th colspan="10">eGFR - 10/17/17 09:07</th> </tr> <tr> <td>eGFR</td> <td>>60 mL/min</td> <td>>60</td> </tr> <tr> <th colspan="10">TSH with Reflex Free T4 - 10/17/17 09:07</th> </tr> < tr> <td>TSH with Reflex Free T4</td> <td>3.50 uIU/mL</td> <td>0.35-4.94</td> </tr> <tr> < colspan="10">B- Type Natriuretic Peptide - 10/17/17 09:10</th> </tr> <tr> <td>B-Type Natriuretic Peptide</td> <td>2027 pg/mL</td> <td> 0-99</td> </tr> <tr> < colspan="10">Procalcitonin - 12/29 09:10</th> </tr> <tr> <td>Procalcitonin</td> <td>0.11 ng/mL</td> <td>0.00-0.09</td> </tr> <tr> < colspan="10">Blood Gases, Arterial (RT) - 10/17/17 11:16</th> [...] <td>INR</td> <td>1.0 NA</td> <td>0.9-1.2</td> </tr > <tr> < colspan="10">PTT - 10/18/17 04:46</th> </tr> <tr> <td>PTT</td> [...] NPT</td> <td>170 mg/dL</td> <td >70-100</td> </tr> <tr> < colspan="10">CBC With Platelet No Differential - 10/19/17 [...] <tr> <td>WBC</td> <td>9.1 K/uL</td> <td>4.8-10.8</td> </tr> <tr> < colspan="10">Magnesium - 10/19/17 08:40</th> </tr> <tr> <td>Magnesium</td> [...] mEq/L</td> <td>136-144</td> </tr> <tr> <th colspan="10">eGFR - 10/19/17 08:40</th> </tr> <tr> <td>eGFR</td> <td>54 mL/min</td> <td>>60</td> </tr> <tr> <th colspan="10">Glucose NPT - 10/19/17 09:35</th > </tr> [...] <td >Negative NA</td> <td>Negative</td> </tr> <tr> < colspan="10">B12 and Folate - 10/20/17 15:22</th> </tr> <tr> <td>Folate</td> <td>9.6 ng/mL</td> <td>7.0-31.4</td> </tr> <tr> <td>Vitamin B12</td> <td>969 pg/mL</ td> <td>213-816</td> </tr> <tr> < colspan="10 ">TSH with Reflex Free T4 - 10/20/17 15:22</th> </tr> <tr> <td>TSH with Reflex Free T4</td> <td>3.79 uIU/mL</td> <td> 0.35-4.94</td> </tr> <tr> < colspan="10">Toxoplasma IgG and IgM - 10/20/17 15:22</th> </tr> <tr> <td> Toxoplasma Ab IgG</td> <td>Negative NA</td> <td>Negative</td> </tr> <tr> <td>Toxoplasma IgG Value</td> <td>& lt;3 IU/mL</td> <td /> </tr> <tr> < colspan= "10">Glucose NPT - 10/20/17 21:51</th> </tr> <tr> <td> Glucose NPT</td> <td>118 mg/dL</td> <td>70-100</td> </ tr> <tr> < colspan="10">CBC With Platelet and Differential - 10/21/17 [...] <tr> <td>WBC</td> <td>12.5 K/uL</td> <td>4.8-10.8</td> </tr> <tr> <th colspan="10">Glucose NPT - 10/21/17 06:47</th> </tr> < [...] mEq/L</td> <td>136-144</td> </tr> <tr> <th colspan="10">eGFR - 10/21/17 06:47</th> </tr> <tr> <td> eGFR</td> <td>>60 mL/min</td> <td>>60</td> </tr> <tr> <th colspan="10">Urine Drug Screen - 10/21/17 16:01</th> </tr> <tr> <td>Tricyclics</td> <td>Not Detected NA</td> <td /> </tr> <tr> <th colspan="10"> Histoplasma Ag, U - 10/21/17 16:01</th> </tr> <tr> <td> Histoplasma Ag, U</td> <td>Negative NA</td> <td>Negative</td> </tr> <tr> <td>Histoplasma Ag, U Value</td> <td >0.03 ng/mL</td> <td /> </tr> <tr> <th colspan= "10">Glucose NPT - 10/21/17 21:16</th> </tr> <tr> <td> [...] <td>Glucose NPT</td> <td>174 mg/dL</td> <td> 70-100</td> </tr> <tr> <th colspan="10">Phosphorus - 08/30 16:21</th> </tr> <tr> <td>Phosphorus</td> <td>5.0 mg/dL</td> <td>2.4-4.7</td> </tr> <tr> < th colspan="10">Magnesium - 10/25/17 16:21</th> </tr> <tr> <td>Magnesium</td> <td>1.7 mg/dL</td> <td>1.8-2.5</td> </tr> <tr> <th colspan="10">Comprehensive Metabolic Panel ( CMP) - 10/25/17 16:21</th> </tr> <tr> <td>Albumin</td> <td>2.8 g/dL</td> <td>3.5-4.8</td> </tr> <tr> <td>Alkaline Phosphatase</td> <td>101 U/L</td> <td>26- 104</td> </tr> <tr> <td>ALT (SGPT)</td> <td>96 U /L</td> <td>17-63</td> </tr> <tr> <td>Anion Gap< /td> <td>13 mEq/L</td> <td>3-20</td> </tr> <tr> <td>AST (SGOT)</td> <td>46 U/L</td> <td>15-41</td> </tr> <tr> <td>Bilirubin Total</td> <td>1.5 mg/ dL</td> <td>0.2-1.2</td> </tr> <tr> <td>BUN</td > <td>18 mg/dL</td> <td>4-20</td> </tr> <tr> <td>Calcium</td> <td>8.5 mg/dL</td> <td>8.6-10.0</td> </tr> <tr> <td>Chloride</td> <td>98 mEq/L</td> <td>99-109</td> </tr> <tr> <td>CO2</td> <td>23 mEq/L</td> <td>22-32</td> </tr> <tr> < td>Creatinine</td> <td>1.23 mg/dL</td> <td>0.64-1.27</td> </tr> <tr> <td>Globulin</td> <td>3.3 g/dL</td> <td>1.9-4.3</td> </tr> <tr> <td>Glucose</td> <td>174 mg/dL</td> <td>70-100</td> </tr> <tr> <td>Potassium</td> <td>3.7 mEq/L</td> <td>3.6-5.1</td> </tr> <tr> <td>Protein</td> <td>6.1 g/dL</td> <td>6.1-7.9</td> </tr> <tr> <td>Sodium</td> <td>134 mEq/L</td> <td>136-144</td> </tr> <tr> <th colspan="10">eGFR - 10/25/17 16:21</th> </tr> <tr> <td>eGFR</td> <td>>60 mL/min</td> <td>>60</td> </ tr> <tr> <th colspan="10">CBC With Platelet and Differential - 10/25/17 16:22</th> </tr> <tr> <td>HCT</td> <td> 35.9 %</td> <td>42.0-52.0</td> </tr> <tr> < td>HGB</td> <td>11.8 g/dL</td> <td>14.0-18.0</td> </tr > <tr> <td>MCH</td> <td>29.4 pg</td> <td>27.0- 32.0</td> </tr> <tr> <td>MCHC</td> <td>32.9 g/dL </td> <td>32.0-36.0</td> </tr> <tr> <td>MCV</td > <td>89.5 fL</td> <td>82.0-99.0</td> </tr> <tr > <td>MPV</td> <td>10.3 fL</td> <td>9.4-12.3</td> </tr> <tr> <td>Platelet Count</td> <td>171 K/uL</ td> <td>150-400</td> </tr> <tr> <td>RBC</td> <td>4.01 10*6/uL</td> <td>4.60-6.20</td> </tr> <tr > <td>RDW</td> <td>16.8 %</td> <td>11.5-14.5</td > </tr> <tr> <td>WBC</td> <td>6.9 K/uL</td> <td>4.8-10.8</td> </tr> <tr> <th colspan="10">B- Type Natriuretic Peptide - 10/25/17 16:22</th> </tr> <tr> <td>B-Type Natriuretic Peptide</td> <td>1729 pg/mL</td> <td> 0-99</td> </tr> <tr> <th colspan="10">Blood Gases, Arterial (RT) - 10/25/17 16:42</th> </tr> <tr> <td> Arterial Base Excess</td> <td>-1 NA</td> <td>0-2</td> < /tr> <tr> <td>Arterial Bicarbonate</td> <td>22 mEq/L</ td> <td>22-26</td> </tr> <tr> <td>Arterial O2 Saturation</td> <td>96.9 %</td> <td>90.0-97.0</td> </tr> <tr> <td>Arterial PCO2</td> <td>29 mmHg</td> <td>35-45</td> </tr> <tr> <td>Arterial PH</td> <td>7.48 NA</td> <td>7.35-7.45</td> </tr> <tr> <td>Arterial PO2</td> <td>82 mmHg</td> <td>80-100</td> </tr> <tr> <td>Arterial LPM</td> <td>2.00 L/min< /td> <td /> </tr> <tr> <td>O2 Panel</td> <td>Nasal Cannula </td> <td /> </tr> <tr> < th colspan="10">Urine Drug Screen - 10/25/17 17:35</th> </tr> <tr > <td>Amph/Meth/Ecstasy</td> <td>Negative NA</td> < td /> </tr> <tr> <td>Barbiturates</td> <td> Negative NA</td> <td /> </tr> <tr> <td> Benzodiazepine</td> <td>Negative NA</td> <td /> </tr> <tr> <td>Cannabinoid</td> <td>Negative NA</td> <td /> </tr> <tr> <td>Cocaine</td> <td> Negative NA</td> <td /> </tr> <tr> <td>EDDP ( Methadone met.)</td> <td>Negative NA</td> <td /> </tr> <tr> <td>Opiate</td> <td>Negative NA</td> < td /> </tr> <tr> <td>Phencyclidine (PCP)</td> < td>Negative NA</td> <td /> </tr> <tr> <th colspan="10">Glucose NPT - 10/25/17 20:39</th> </tr> <tr> <td>Glucose NPT</td> <td>173 mg/dL</td> <td>70-100</td> </tr> <tr> <th colspan="10">Glucose NPT - 10/26/17 05:26< /th> </tr> <tr> <td>Glucose NPT</td> <td>148 mg /dL</td> <td>70-100</td> </tr> <tr> <th colspan= "10">CBC With Platelet and Differential - 10/26/17 06:30</th> </tr> <tr> <td>Absolute Basophils</td> <td>0.02 10*3/uL</td> <td>0.00-0.20</td> </tr> <tr> <td>Absolute Eosinophils</td> <td>0.00 10*3/uL</td> <td>0.00-0.50</td> </tr> <tr> <td>Absolute Lymphocytes</td> <td>0.82 10*3/uL</td> <td>0.80-3.30</td> </tr> <tr> <td> Absolute Monocytes</td> <td>2.22 10*3/uL</td> <td>0.30-1.00</ td> </tr> <tr> <td>Absolute Neutrophils</td> <td >9.23 10*3/uL</td> <td>1.90-7.00</td> </tr> <tr> <td>Basophils</td> <td>0 %</td> <td>0-2</td> </tr > <tr> <td>Eosinophils</td> <td>0 %</td> < td>0-4</td> </tr> <tr> <td>HCT</td> <td>33.5 &# 37;</td> <td>42.0-52.0</td> </tr> <tr> <td>HGB</ td> <td>10.7 g/dL</td> <td>14.0-18.0</td> </tr> <tr> <td>Immature Granulocytes</td> <td>0.6 %</td> <td>0.0-1.0</td> </tr> <tr> <td>Lymphocytes</td> <td>7 %</td> <td>20-46</td> </tr> <tr> <td>MCH</td> <td>29.0 pg</td> <td>27.0-32.0</td> </tr> <tr> <td>MCHC</td> <td>31.9 g/dL</td> <td> 32.0-36.0</td> </tr> <tr> <td>MCV</td> <td>90.8 fL</td> <td>82.0-99.0</td> </tr> <tr> <td> Monocytes</td> <td>18 %</td> <td>4-11</td> </tr> <tr> <td>MPV</td> <td>10.1 fL</td> <td>9.4-12.3 </td> </tr> <tr> <td>Neutrophils</td> <td>75 &# 37;</td> <td>51-75</td> </tr> <tr> <td> Nucleated RBC Automated</td> <td>0.0 /100 WBC</td> <td /> </tr> <tr> <td>Platelet Count</td> <td>214 K/uL</td > <td>150-400</td> </tr> <tr> <td>RBC</td> <td>3.69 10*6/uL</td> <td>4.60-6.20</td> </tr> <tr> <td>RDW</td> <td>17.2 %</td> <td>11.5-14.5</td> </tr> <tr> <td>WBC</td> <td>12.4 K/uL</td> <td>4.8-10.8</td> </tr> <tr> <th colspan="10"> Comprehensive Metabolic Panel (CMP) - 10/26/17 06:30</th> </tr> < tr> <td>Albumin</td> <td>2.6 g/dL</td> <td>3.5-4.8</ td> </tr> <tr> <td>Alkaline Phosphatase</td> <td >104 U/L</td> <td>26-104</td> </tr> <tr> <td> ALT (SGPT)</td> <td>79 U/L</td> <td>17-63</td> </tr> <tr> <td>Anion Gap</td> <td>12 mEq/L</td> <td>3 -20</td> </tr> <tr> <td>AST (SGOT)</td> <td>35 U /L</td> <td>15-41</td> </tr> <tr> <td>Bilirubin Total</td> <td>1.3 mg/dL</td> <td>0.2-1.2</td> </tr> <tr> <td>BUN</td> <td>25 mg/dL</td> <td>4-20</ td> </tr> <tr> <td>Calcium</td> <td>8.4 mg/dL</ td> <td>8.6-10.0</td> </tr> <tr> <td>Chloride</ td> <td>100 mEq/L</td> <td>99-109</td> </tr> <tr > <td>CO2</td> <td>23 mEq/L</td> <td>22-32</td> </tr> <tr> <td>Creatinine</td> <td>1.14 mg/dL</td> <td>0.64-1.27</td> </tr> <tr> <td>Globulin</td> <td>3.2 g/dL</td> <td>1.9-4.3</td> </tr> <tr> <td>Glucose</td> <td>144 mg/dL</td> <td>70-100</td> </tr> <tr> <td>Potassium</td> <td>4.4 mEq/L</td > <td>3.6-5.1</td> </tr> <tr> <td>Protein</td> <td>5.8 g/dL</td> <td>6.1-7.9</td> </tr> <tr> <td>Sodium</td> <td>135 mEq/L</td> <td>136-144</td> </tr> <tr> <th colspan="10">Magnesium - 10/26/17 06:30</th > </tr> <tr> <td>Magnesium</td> <td>1.8 mg/dL</ td> <td>1.8-2.5</td> </tr> <tr> <th colspan="10 ">Phosphorus - 10/26/17 06:30</th> </tr> <tr> <td> Phosphorus</td> <td>4.1 mg/dL</td> <td>2.4-4.7</td> </ tr> <tr> <th colspan="10">eGFR - 10/26/17 06:30</th> </tr > <tr> <td>eGFR</td> <td>>60 mL/min</td> < td>>60</td> </tr> <tr> <th colspan="10">Glucose NPT - 10/26/17 11:24</th> </tr> <tr> <td>Glucose NPT</td> <td>157 mg/dL</td> <td>70-100</td> </tr> <tr> <th colspan="10">Glucose NPT - 10/26/17 15:27</th> </tr> < tr> <td>Glucose NPT</td> <td>152 mg/dL</td> <td>70- 100</td> </tr> <tr> <th colspan="10">Glucose NPT - 10/26 21:54</th> </tr> <tr> <td>Glucose NPT</td> <td>155 mg/dL</td> <td>70-100</td> </tr> <tr> < th colspan="10">Glucose NPT - 10/27/17 05:37</th> </tr> <tr> <td>Glucose NPT</td> <td>112 mg/dL</td> <td>70-100</td > </tr> <tr> <th colspan="10">CBC With Platelet No Differential - 10/27/17 06:01</th> </tr> <tr> <td>HCT</td > <td>36.4 %</td> <td>42.0-52.0</td> </tr> < tr> <td>HGB</td> <td>11.6 g/dL</td> <td>14.0-18.0</td > </tr> <tr> <td>MCH</td> <td>29.1 pg</td> <td>27.0-32.0</td> </tr> <tr> <td>MCHC</td> <td>31.9 g/dL</td> <td>32.0-36.0</td> </tr> <tr> <td>MCV</td> <td>91.2 fL</td> <td>82.0-99.0</td> </ tr> <tr> <td>MPV</td> <td>9.7 fL</td> <td>9.4- 12.3</td> </tr> <tr> <td>Platelet Count</td> <td >218 K/uL</td> <td>150-400</td> </tr> <tr> <td> RBC</td> <td>3.99 10*6/uL</td> <td>4.60-6.20</td> </tr > <tr> <td>RDW</td> <td>17.1 %</td> <td> 11.5-14.5</td> </tr> <tr> <td>WBC</td> <td>12.8 K/uL</td> <td>4.8-10.8</td> </tr> <tr> < colspan="10">Magnesium - 10/27/17 06:01</th> </tr> <tr> < td>Magnesium</td> <td>1.7 mg/dL</td> <td>1.8-2.5</td> < /tr> <tr> <th colspan="10">Comprehensive Metabolic Panel (CMP) - 10/27/17 06:01</th> </tr> <tr> <td>Albumin</td> <td>2.8 g/dL</td> <td>3.5-4.8</td> </tr> <tr> <td>Alkaline Phosphatase</td> <td>98 U/L</td> <td>26-104</td > </tr> <tr> <td>ALT (SGPT)</td> <td>71 U/L</td > <td>17-63</td> </tr> <tr> <td>Anion Gap</td> <td>7 mEq/L</td> <td>3-20</td> </tr> <tr> <td>AST (SGOT)</td> <td>32 U/L</td> <td>15-41</td> </tr> <tr> <td>Bilirubin Total</td> <td>1.3 mg/dL</td> <td>0.2-1.2</td> </tr> <tr> <td>BUN</td> <td>25 mg/dL</td> <td>4-20</td> </tr> <tr> < td>Calcium</td> <td>8.7 mg/dL</td> <td>8.6-10.0</td> </ tr> <tr> <td>Chloride</td> <td>96 mEq/L</td> < td>99-109</td> </tr> <tr> <td>CO2</td> <td>27 mEq/L</td> <td>22-32</td> </tr> <tr> <td> Creatinine</td> <td>1.01 mg/dL</td> <td>0.64-1.27</td> </tr> <tr> <td>Globulin</td> <td>3.4 g/dL</td> <td>1.9-4.3</td> </tr> <tr> <td>Glucose</td> < td>108 mg/dL</td> <td>70-100</td> </tr> <tr> <td >Potassium</td> <td>4.2 mEq/L</td> <td>3.6-5.1</td> </ tr> <tr> <td>Protein</td> <td>6.2 g/dL</td> < td>6.1-7.9</td> </tr> <tr> <td>Sodium</td> <td> 130 mEq/L</td> <td>136-144</td> </tr> <tr> <th colspan="10">eGFR - 10/27/17 06:01</th> </tr> <tr> <td> eGFR</td> <td>>60 mL/min</td> <td>>60</td> </tr> <tr> <th colspan="10">Glucose NPT - 10/27/17 10:40</th> </tr> <tr> <td>Glucose NPT</td> <td>102 mg/dL</td> <td>70-100</td> </tr> <tr> <th colspan="10"> Glucose NPT - 10/27/17 15:21</th> </tr> <tr> <td> Glucose NPT</td> <td>135 mg/dL</td> <td>70-100</td> </ tr> <tr> <th colspan="10">Glucose NPT - 10/28/17 05:51</th> </tr> <tr> <td>Glucose NPT</td> <td>115 mg/dL</td > <td>70-100</td> </tr> <tr> <th colspan="10"> Magnesium - 10/28/17 06:36</th> </tr> <tr> <td>Magnesium< /td> <td>1.7 mg/dL</td> <td>1.8-2.5</td> </tr> < tr> <th colspan="10">Renal Function Panel - 10/28/17 06:36</th> </tr> <tr> <td>Albumin</td> <td>2.9 g/dL</td> <td>3.5-4.8</td> </tr> <tr> <td>Anion Gap</td> < td>8 mEq/L</td> <td>3-20</td> </tr> <tr> <td>BUN </td> <td>24 mg/dL</td> <td>4-20</td> </tr> <tr > <td>Calcium</td> <td>8.5 mg/dL</td> <td>8.6-10.0</ td> </tr> <tr> <td>Chloride</td> <td>98 mEq/L</ td> <td>99-109</td> </tr> <tr> <td>CO2</td> <td>25 mEq/L</td> <td>22-32</td> </tr> <tr> <td>Creatinine</td> <td>0.90 mg/dL</td> <td>0.64-1.27</td> </tr> <tr> <td>Glucose</td> <td>89 mg/dL</td> <td>70-100</td> </tr> <tr> <td>Phosphorus</td> <td>3.8 mg/dL</td> <td>2.4-4.7</td> </tr> <tr> <td>Potassium</td> <td>4.0 mEq/L</td> <td>3.6-5.1</td > </tr> <tr> <td>Sodium</td> <td>131 mEq/L</td> <td>136-144</td> </tr> <tr> < colspan="10"> eGFR - 10/28/17 06:36</th> </tr> <tr> <td>eGFR</td> <td>>60 mL/min</td> <td>>60</td> </tr> <tr> < colspan="10">CBC With Platelet No Differential - 10/28/17 06:37</th > </tr> <tr> <td>HCT</td> <td>36.1 %</td> <td>42.0-52.0</td> </tr> <tr> <td>HGB</td> <td>11.7 g/dL</td> <td>14.0-18.0</td> </tr> <tr> <td>MCH</td> <td>29.5 pg</td> <td>27.0-32.0</td> </tr> <tr> <td>MCHC</td> <td>32.4 g/dL</td> < td>32.0-36.0</td> </tr> <tr> <td>MCV</td> <td> 90.9 fL</td> <td>82.0-99.0</td> </tr> <tr> <td> MPV</td> <td>9.9 fL</td> <td>9.4-12.3</td> </tr> <tr> <td>Platelet Count</td> <td>229 K/uL</td> <td> 150-400</td> </tr> <tr> <td>RBC</td> <td>3.97 10 *6/uL</td> <td>4.60-6.20</td> </tr> <tr> <td>RDW </td> <td>16.5 %</td> <td>11.5-14.5</td> </tr> <tr> <td>WBC</td> <td>12.2 K/uL</td> <td>4.8-10.8 </td> </tr> <tr> <th colspan="10">Glucose NPT - 10:14</th> </tr> <tr> <td>Glucose NPT</td> < td>121 mg/dL</td> <td>70-100</td> </tr> <tr> < th colspan="10">Glucose NPT - 10/28/17 16:27</th> </tr> <tr> <td>Glucose NPT</td> <td>163 mg/dL</td> <td>70-100</td > </tr> </tbody> </table> </text> <entry> <organizer moodCode="EVN" classCode="BATTERY"> <templateId root= "[id number]..22.4.1" /> <id nullFlavor="NA" /> <code codeSystem="local" code="CBCD" displayName="CBC W/DIFF" /> <statusCode code ="completed" /> <component> <observation moodCode="EVN" classCode= "OBS"> <templateId root="[id number]..22.4.2" /> < id nullFlavor="NA" /> <code codeSystem="local" code="CBCCOM" displayName="COMMENT" /> <statusCode code="completed" /> < effectiveTime value="[id number]" /> <value unit="" xsi:type="PQ" value="REVIEWED" /> <referenceRange> <observationRange> <text /> </observationRange> </referenceRange> </observation> </component> <component> <observation moodCode="EVN" classCode="OBS"> <templateId root= "[id number]" /> <id nullFlavor="NA" /> < code codeSystem="local" code="EO#" displayName="EOSINOPHIL #" /> < statusCode code="completed" /> <effectiveTime value="[id number]" /> <value unit="k/cumm" xsi:type="PQ" value="0.8" /> < interpretationCode codeSystem="local" code="*" /> <referenceRange> <observationRange> <text>0.1-0.5</text> </ observationRange> </referenceRange> </observation> </ component> <component> <observation moodCode="EVN" classCode="OBS"> <templateId root="[id number]" /> <id nullFlavor="NA" /> <code codeSystem="local" code="EO%" displayName= "EOSINOPHIL %" /> <statusCode code="completed" /> < effectiveTime value="[id number]" /> <value unit="%" xsi:type="PQ " value="16" /> <interpretationCode codeSystem="local" code="*" /> <referenceRange> <observationRange> <text>2-4</ text> </observationRange> </referenceRange> </ observation> </component> <component> <observation moodCode= "EVN" classCode="OBS"> <templateId root="[id number]..4.2 " /> <id nullFlavor="NA" /> <code codeSystem="local" code="GR# " displayName="GRANULOCYTE #" /> <statusCode code="completed" /> <effectiveTime value="[id number]" /> <value unit="k/cumm" xsi: type="PQ" value="2.0" /> <referenceRange> <observationRange > <text>2.0-9.0</text> </observationRange> </ referenceRange> </observation> </component> <component> <observation moodCode="EVN" classCode="OBS"> <templateId root= "[id number]" /> <id nullFlavor="NA" /> < code codeSystem="local" code="GR%" displayName="GRANULOCYTE %" /> <statusCode code="completed" /> <effectiveTime value="[id number] " /> <value unit="%" xsi:type="PQ" value="41" /> < interpretationCode codeSystem="local" code="*" /> <referenceRange> <observationRange> <text>50-75</text> </ observationRange> </referenceRange> </observation> </ component> <component> <observation moodCode="EVN" classCode="OBS"> <templateId root="[id number]2.4.2" /> <id nullFlavor="NA" /> <code codeSystem="local" code="LY#" displayName= "LYMPHOCYTE #" /> <statusCode code="completed" /> < effectiveTime value="[id number]" /> <value unit="k/cumm" xsi:type="PQ " value="1.2" /> <referenceRange> <observationRange> <text>1.0-4.0</text> </observationRange> </ referenceRange> </observation> </component> <component> <observation moodCode="EVN" classCode="OBS"> <templateId root= "[id number]" /> <id nullFlavor="NA" /> < code codeSystem="local" code="LY%" displayName="LYMPHOCYTE %" /> <statusCode code="completed" /> <effectiveTime value="[id number]" /> <value unit="%" xsi:type="PQ" value="24" /> < referenceRange> <observationRange> <text>20-30</text> </observationRange> </referenceRange> </observation> </component> <component> <observation moodCode="EVN" classCode= "OBS"> <templateId root="10.29.840.1.594098.10..4.2" /> < id nullFlavor="NA" /> <code codeSystem="local" code="MCH" displayName= "MEAN CELL HGB" /> <statusCode code="completed" /> < effectiveTime value="220723269739" /> <value unit="pg" xsi:type="PQ" value="30.3" /> <referenceRange> <observationRange> <text>27.0-33.0</text> </observationRange> </ referenceRange> </observation> </component> <component> <observation moodCode="EVN" classCode="OBS"> <templateId root= "216.840.1.125795.10.20.22.4.2" /> <id nullFlavor="NA" /> < code codeSystem="local" code="[facility]" displayName="MEAN CELL HGB CONCENTRATION" / > <statusCode code="completed" /> <effectiveTime value= "239648919895" /> <value unit="g/dL" xsi:type="PQ" value="35.3" /> <referenceRange> <observationRange> <text>32.0- 37.0</text> </observationRange> </referenceRange> </ observation> </component> <component> <observation moodCode= "EVN" classCode="OBS"> <templateId root="216.840.1.962269.10..22.4.2 " /> <id nullFlavor="NA" /> <code codeSystem="local" code="MCV " displayName="MEAN CELL VOLUME" /> <statusCode code="completed" /> <effectiveTime value="868729418637" /> <value unit="fl" xsi:type ="PQ" value="86.0" /> <referenceRange> <observationRange> <text>80.0-100.0</text> </observationRange> </ referenceRange> </observation> </component> <component> <observation moodCode="EVN" classCode="OBS"> <templateId root= "16.840.1.098873.10.20.22.4.2" /> <id nullFlavor="NA" /> < code codeSystem="local" code="MO#" displayName="MONOCYTE #" /> < statusCode code="completed" /> <effectiveTime value="947719694292" /> <value unit="k/cumm" xsi:type="PQ" value="0.9" /> < referenceRange> <observationRange> <text>0.1-1.0</text> </observationRange> </referenceRange> </observation > </component> <component> <observation moodCode="EVN" classCode="OBS"> <templateId root="16.840.1.045730.10..22.4.2" /> <id nullFlavor="NA" /> <code codeSystem="local" code="MO% " displayName="MONOCYTE %" /> <statusCode code="completed" /> <effectiveTime value="761062200220" /> <value unit="%" xsi: type="PQ" value="19" /> <interpretationCode codeSystem="local" code="* " /> <referenceRange> <observationRange> <text> 4-6</text> </observationRange> </referenceRange> </ observation> </component> <component> <observation moodCode= "EVN" classCode="OBS"> <templateId root="10.29.840.1.026672.07.02.22.4.2 " /> <id nullFlavor="NA" /> <code codeSystem="local" code="RBC " displayName="RED BLOOD CELL" /> <statusCode code="completed" /> <effectiveTime value="805505793938" /> <value unit="m/cumm" xsi: type="PQ" value="3.99" /> <interpretationCode codeSystem="local" code= "*" /> <referenceRange> <observationRange> < text>4.00-6.00</text> </observationRange> </referenceRange> </observation> </component> <component> <observation moodCode="EVN" classCode="OBS"> <templateId root= "10.29.840.1.791143.07.02.22.4.2" /> <id nullFlavor="NA" /> < code codeSystem="local" code="RDW" displayName="RED CELL DISTRIBUTION WIDTH" /> <statusCode code="completed" /> <effectiveTime value= "613379988199" /> <value unit="%" xsi:type="PQ" value="14.8" /> <referenceRange> <observationRange> <text>11.0- 15.6</text> </observationRange> </referenceRange> </ observation> </component> <component> <observation moodCode= "EVN" classCode="OBS"> <templateId root="216.840.1.773138.22.4.2 " /> <id nullFlavor="NA" /> <code codeSystem="local" code="WBC " displayName="WHITE BLOOD CELL" /> <statusCode code="completed" /> <effectiveTime value="173843593763" /> <value unit="k/cumm" xsi: type="PQ" value="4.9" /> <interpretationCode codeSystem="local" code="* " /> <referenceRange> <observationRange> <text> 5.0-10.0</text> </observationRange> </referenceRange> </observation> </component> <component> <observation moodCode ="EVN" classCode="OBS"> <templateId root= "216.840.1.164993.07.02.22.4.2" /> <id nullFlavor="NA" /> < code codeSystem="local" code="HGBT" displayName="HEMOGLOBIN" /> < statusCode code="completed" /> <effectiveTime value="535357071500" /> <value unit="gm/dL" xsi:type="PQ" value="12.1" /> < interpretationCode codeSystem="local" code="*" /> <referenceRange> <observationRange> <text>14.0-18.0</text> </ observationRange> </referenceRange> </observation> </ component> <component> <observation moodCode="EVN" classCode="OBS"> <templateId root="840.1.455630.22.4.2" /> <id nullFlavor="NA" /> <code codeSystem="local" code="HCTT" displayName= "HEMATOCRIT" /> <statusCode code="completed" /> < effectiveTime value="132513973712" /> <value unit="%" xsi:type="PQ " value="34.3" /> <interpretationCode codeSystem="local" code="*" /> <referenceRange> <observationRange> <text>40.0- 54.0</text> </observationRange> </referenceRange> </ observation> </component> <component> <observation moodCode= "EVN" classCode="OBS"> <templateId root="840.1.356289.07.02.22.4.2 " /> <id nullFlavor="NA" /> <code codeSystem="local" code="PLT " displayName="PLATELET COUNT" /> <statusCode code="completed" /> <effectiveTime value="982262067913" /> <value unit="k/cumm" xsi: type="PQ" value="154" /> <referenceRange> <observationRange > <text>150-450</text> </observationRange> </ referenceRange> </observation> </component> </organizer> </entry > <entry> <organizer moodCode="EVN" classCode="BATTERY"> <templateId root="840.1.253557.1022.4.1" /> <id nullFlavor="NA" /> <code codeSystem="local" code="METABC" displayName="METABOLIC PANEL, COMPREHN" /> <statusCode code="completed" /> <component> <observation moodCode= "EVN" classCode="OBS"> <templateId root="840.1.116603.07.02.22.4.2 " /> <id nullFlavor="NA" /> <code codeSystem="local" code="K" displayName="POTASSIUM" /> <statusCode code="completed" /> < effectiveTime value="472488779038" /> <value unit="mmol/L" xsi:type="PQ " value="4.2" /> <referenceRange> <observationRange> <text>3.5-5.3</text> </observationRange> </ referenceRange> </observation> </component> <component> <observation moodCode="EVN" classCode="OBS"> <templateId root= "2.16.840.1.208488.07.02.22.4.2" /> <id nullFlavor="NA" /> < code codeSystem="local" code="eGFR" displayName="EST GFR (MDRD)" /> < statusCode code="completed" /> <effectiveTime value="503844321667" /> <value unit="mL/min" xsi:type="PQ" value="> 60" /> < referenceRange> <observationRange> <text>> 59</text> </observationRange> </referenceRange> </observation > </component> <component> <observation moodCode="EVN" classCode="OBS"> <templateId root="2.16.840.1.599138.07.02.22.4.2" /> <id nullFlavor="NA" /> <code codeSystem="local" code="GAP" displayName="ANION GAP" /> <statusCode code="completed" /> < effectiveTime value="384985936007" /> <value unit="mmol/L" xsi:type="PQ " value="12" /> <referenceRange> <observationRange> <text>5-15</text> </observationRange> </referenceRange > </observation> </component> <component> <observation moodCode="EVN" classCode="OBS"> <templateId root= "16.840.1.803413.10..22.4.2" /> <id nullFlavor="NA" /> < code codeSystem="local" code="eCrCl" displayName="EST CrCl (CG)" /> < statusCode code="completed" /> <effectiveTime value="836452499788" /> <value unit="mL/min" xsi:type="PQ" value="> 60" /> < referenceRange> <observationRange> <text>> 59</text> </observationRange> </referenceRange> </observation > </component> <component> <observation moodCode="EVN" classCode="OBS"> <templateId root="16.840.1.236869.10..4.2" /> <id nullFlavor="NA" /> <code codeSystem="local" code="GLU" displayName="GLUCOSE" /> <statusCode code="completed" /> < effectiveTime value="031774438357" /> <value unit="mg/dL" xsi:type="PQ " value="109" /> <interpretationCode codeSystem="local" code="*" /> <referenceRange> <observationRange> <text>70-99</ text> </observationRange> </referenceRange> </ observation> </component> <component> <observation moodCode= "EVN" classCode="OBS"> <templateId root="10.29.840.1.956106.10.20.22.4.2 " /> <id nullFlavor="NA" /> <code codeSystem="local" code="CA " displayName="CALCIUM" /> <statusCode code="completed" /> < effectiveTime value="324664000620" /> <value unit="mg/dL" xsi:type="PQ " value="8.1" /> <interpretationCode codeSystem="local" code="*" /> <referenceRange> <observationRange> <text>8.5- 10.1</text> </observationRange> </referenceRange> </ observation> </component> <component> <observation moodCode= "EVN" classCode="OBS"> <templateId root="216.840.1.489315.10..22.4.2 " /> <id nullFlavor="NA" /> <code codeSystem="local" code="BUN " displayName="BLOOD UREA NITROGEN" /> <statusCode code="completed" /> <effectiveTime value="436946059095" /> <value unit="mg/dL" xsi:type="PQ" value="20" /> <referenceRange> < observationRange> <text>7-20</text> </observationRange> </referenceRange> </observation> </component> < component> <observation moodCode="EVN" classCode="OBS"> < templateId root="10.29.840.1.949369..22.4.2" /> <id nullFlavor="NA " /> <code codeSystem="local" code="CREAT" displayName="CREATININE" /> <statusCode code="completed" /> <effectiveTime value= "474517954092" /> <value unit="mg/dL" xsi:type="PQ" value="1.2" /> <referenceRange> <observationRange> <text>0.7-1.3< /text> </observationRange> </referenceRange> </ observation> </component> <component> <observation moodCode= "EVN" classCode="OBS"> <templateId root="16.840.1.122606.10.20.22.4.2 " /> <id nullFlavor="NA" /> <code codeSystem="local" code="NA " displayName="SODIUM" /> <statusCode code="completed" /> < effectiveTime value="387511663570" /> <value unit="mmol/L" xsi:type="PQ " value="136" /> <referenceRange> <observationRange> <text>135-148</text> </observationRange> </ referenceRange> </observation> </component> <component> <observation moodCode="EVN" classCode="OBS"> <templateId root= "216.840.1.330289.10...4.2" /> <id nullFlavor="NA" /> < code codeSystem="local" code="CL" displayName="CHLORIDE" /> < statusCode code="completed" /> <effectiveTime value="473318859971" /> <value unit="mmol/L" xsi:type="PQ" value="102" /> < referenceRange> <observationRange> <text>98-110</text> </observationRange> </referenceRange> </observation> </component> <component> <observation moodCode="EVN" classCode ="OBS"> <templateId root="216.840.1.069606.10...4.2" /> < id nullFlavor="NA" /> <code codeSystem="local" code="AST" displayName= "AST/SGOT" /> <statusCode code="completed" /> <effectiveTime value="517016521980" /> <value unit="Units/L" xsi:type="PQ" value="62" /> <interpretationCode codeSystem="local" code="*" /> < referenceRange> <observationRange> <text>10-37</text> </observationRange> </referenceRange> </observation> </component> <component> <observation moodCode="EVN" classCode= "OBS"> <templateId root="216.840.1.578851.07.02.22.4.2" /> < id nullFlavor="NA" /> <code codeSystem="local" code="ALT" displayName= "ALT/SGPT" /> <statusCode code="completed" /> <effectiveTime value="888467229948" /> <value unit="Units/L" xsi:type="PQ" value="68" /> <interpretationCode codeSystem="local" code="*" /> < referenceRange> <observationRange> <text>< 66</text> </observationRange> </referenceRange> </observation > </component> <component> <observation moodCode="EVN" classCode="OBS"> <templateId root="16.840.1.586076.07.02.22.4.2" /> <id nullFlavor="NA" /> <code codeSystem="local" code="CO2" displayName="CARBON DIOXIDE" /> <statusCode code="completed" /> <effectiveTime value="888969115956" /> <value unit="mmol/L" xsi:type ="PQ" value="22" /> <referenceRange> <observationRange> <text>21-32</text> </observationRange> </ referenceRange> </observation> </component> <component> <observation moodCode="EVN" classCode="OBS"> <templateId root= "10.29.840.1.714864.10.4.2" /> <id nullFlavor="NA" /> < code codeSystem="local" code="TP" displayName="TOTAL PROTEIN" /> < statusCode code="completed" /> <effectiveTime value="399524318708" /> <value unit="gm/dL" xsi:type="PQ" value="6.9" /> < referenceRange> <observationRange> <text>6.4-8.2</text> </observationRange> </referenceRange> </observation > </component> <component> <observation moodCode="EVN" classCode="OBS"> <templateId root="16.840.1.994714.22.4.2" /> <id nullFlavor="NA" /> <code codeSystem="local" code="ALB" displayName="ALBUMIN" /> <statusCode code="completed" /> < effectiveTime value="004368527804" /> <value unit="gm/dL" xsi:type="PQ " value="3.2" /> <interpretationCode codeSystem="local" code="*" /> <referenceRange> <observationRange> <text>3.4-5.0 </text> </observationRange> </referenceRange> </ observation> </component> <component> <observation moodCode= "EVN" classCode="OBS"> <templateId root="10.29.840.1.310931.07.02.22.4.2 " /> <id nullFlavor="NA" /> <code codeSystem="local" code= "BILTOT" displayName="BILI TOTAL" /> <statusCode code="completed" /> <effectiveTime value="289692135555" /> <value unit="mg/dL" xsi: type="PQ" value="0.4" /> <referenceRange> <observationRange > <text>0.0-1.0</text> </observationRange> </ referenceRange> </observation> </component> <component> <observation moodCode="EVN" classCode="OBS"> <templateId root= "16.840.1.258069.22.4.2" /> <id nullFlavor="NA" /> < code codeSystem="local" code="ALKP" displayName="ALKALINE PHOSPHATASE TOTAL" /> <statusCode code="completed" /> <effectiveTime value= "390807858458" /> <value unit="IU/L" xsi:type="PQ" value="89" /> <referenceRange> <observationRange> <text>45-117</ text> </observationRange> </referenceRange> </ observation> </component> </organizer> </entry> <entry> <organizer moodCode="EVN" classCode="BATTERY"> <templateId root= "10.29.840.1.356208.10.4.1" /> <id nullFlavor="NA" /> <code codeSystem="local" code="TROP" displayName="Troponin" /> <statusCode code= "completed" /> <component> <observation moodCode="EVN" classCode= "OBS"> <templateId root="10.29.840.1.335472.10...4.2" /> < id nullFlavor="NA" /> <code codeSystem="local" code="TROP" displayName= "Troponin" /> <statusCode code="completed" /> <effectiveTime value="131976321342" /> <value unit="ng/mL" xsi:type="PQ" value="< 0.05" /> <referenceRange> <observationRange> < text><0.06</text> </observationRange> </referenceRange> </observation> </component> </organizer> </entry> <entry> < organizer moodCode="EVN" classCode="BATTERY"> <templateId root= "10.29.840.1.385180.10..4.1" /> <id nullFlavor="NA" /> <code codeSystem="local" code="CBCWD" displayName="CBC With Platelet and Differential " /> <statusCode code="completed" /> <component> <observation moodCode="EVN" classCode="OBS"> <templateId root= "840.1.158048.10.22.4.2" /> <id nullFlavor="NA" /> < code codeSystem="local" code="ABASR" displayName="Absolute Basophils" /> <statusCode code="completed" /> <effectiveTime value="" /> <value unit="10*3/uL" xsi:type="PQ" value="0.04" /> < referenceRange> <observationRange> <text>0.00-0.20</text > </observationRange> </referenceRange> </observation > </component> <component> <observation moodCode="EVN" classCode="OBS"> <templateId root="840.1.513168.07.02.22.4.2" /> <id nullFlavor="NA" /> <code codeSystem="local" code="AEOSR" displayName="Absolute Eosinophils" /> <statusCode code="completed" /> <effectiveTime value="" /> <value unit="10*3/uL" xsi:type="PQ" value="0.57" /> <interpretationCode codeSystem="local" code="*" /> <referenceRange> <observationRange> <text>0.00-0.50</text> </observationRange> </ referenceRange> </observation> </component> <component> <observation moodCode="EVN" classCode="OBS"> <templateId root= "10.29.840.1.014359.10.22.4.2" /> <id nullFlavor="NA" /> < code codeSystem="local" code="ALYMR" displayName="Absolute Lymphocytes" /> <statusCode code="completed" /> <effectiveTime value=" " /> <value unit="10*3/uL" xsi:type="PQ" value="1.82" /> < referenceRange> <observationRange> <text>0.80-3.30</text > </observationRange> </referenceRange> </observation > </component> <component> <observation moodCode="EVN" classCode="OBS"> <templateId root="16.840.1.591388.10.20.22.4.2" /> <id nullFlavor="NA" /> <code codeSystem="local" code="AMONR" displayName="Absolute Monocytes" /> <statusCode code="completed" /> <effectiveTime value="853898258430" /> <value unit="10*3/uL" xsi :type="PQ" value="0.84" /> <referenceRange> < observationRange> <text>0.30-1.00</text> </ observationRange> </referenceRange> </observation> </ component> <component> <observation moodCode="EVN" classCode="OBS"> <templateId root="840.1.901801.102022.4.2" /> <id nullFlavor="NA" /> <code codeSystem="local" code="ASEGR" displayName= "Absolute Neutrophils" /> <statusCode code="completed" /> < effectiveTime value="709325930395" /> <value unit="10*3/uL" xsi:type= "PQ" value="4.22" /> <referenceRange> <observationRange> <text>1.90-7.00</text> </observationRange> </ referenceRange> </observation> </component> <component> <observation moodCode="EVN" classCode="OBS"> <templateId root= "10.29.840.1.912666.10.20.22.4.2" /> <id nullFlavor="NA" /> < code codeSystem="local" code="BASOR" displayName="Basophils" /> < statusCode code="completed" /> <effectiveTime value="749392847225" /> <value unit="%" xsi:type="PQ" value="1" /> <referenceRange > <observationRange> <text>0-2</text> </ observationRange> </referenceRange> </observation> </ component> <component> <observation moodCode="EVN" classCode="OBS"> <templateId root="216.840.1.704927.10.20.22.4.2" /> <id nullFlavor="NA" /> <code codeSystem="local" code="EOSR" displayName= "Eosinophils" /> <statusCode code="completed" /> < effectiveTime value="292385292950" /> <value unit="%" xsi:type="PQ " value="8" /> <interpretationCode codeSystem="local" code="*" /> <referenceRange> <observationRange> <text>0-4</text > </observationRange> </referenceRange> </observation > </component> <component> <observation moodCode="EVN" classCode="OBS"> <templateId root="216.840.1.123175.10.20.22.4.2" /> <id nullFlavor="NA" /> <code codeSystem="local" code="HCT" displayName="HCT" /> <statusCode code="completed" /> < effectiveTime value="417334698617" /> <value unit="%" xsi:type="PQ " value="39.0" /> <interpretationCode codeSystem="local" code="*" /> <referenceRange> <observationRange> <text>42.0- 52.0</text> </observationRange> </referenceRange> </ observation> </component> <component> <observation moodCode= "EVN" classCode="OBS"> <templateId root="216.840.1.571799.10.20.22.4.2 " /> <id nullFlavor="NA" /> <code codeSystem="local" code="HGB " displayName="HGB" /> <statusCode code="completed" /> < effectiveTime value="227891420882" /> <value unit="g/dL" xsi:type="PQ" value="13.0" /> <interpretationCode codeSystem="local" code="*" /> <referenceRange> <observationRange> <text>14.0- 18.0</text> </observationRange> </referenceRange> </ observation> </component> <component> <observation moodCode= "EVN" classCode="OBS"> <templateId root="216.840.1.454764.10...4.2 " /> <id nullFlavor="NA" /> <code codeSystem="local" code= "IMGA" displayName="Immature Granulocytes" /> <statusCode code= "completed" /> <effectiveTime value="" /> <value unit="%" xsi:type="PQ" value="0.3" /> <referenceRange> < observationRange> <text>0.0-1.0</text> </ observationRange> </referenceRange> </observation> </ component> <component> <observation moodCode="EVN" classCode="OBS"> <templateId root="16.840.1.586924.10..22.4.2" /> <id nullFlavor="NA" /> <code codeSystem="local" code="LYMPR" displayName= "Lymphocytes" /> <statusCode code="completed" /> < effectiveTime value="" /> <value unit="%" xsi:type="PQ " value="24" /> <referenceRange> <observationRange> <text>20-46</text> </observationRange> </ referenceRange> </observation> </component> <component> <observation moodCode="EVN" classCode="OBS"> <templateId root= "16.840.1.102801.10..22.4.2" /> <id nullFlavor="NA" /> < code codeSystem="local" code="[facility]" displayName="[facility]" /> <statusCode code="completed" /> <effectiveTime value="" /> < value unit="pg" xsi:type="PQ" value="30.9" /> <referenceRange> <observationRange> <text>27.0-32.0</text> </ observationRange> </referenceRange> </observation> </ component> <component> <observation moodCode="EVN" classCode="OBS"> <templateId root="10.29.840.1.506982.07.02.22.4.2" /> <id nullFlavor="NA" /> <code codeSystem="local" code="[facility]" displayName= "[facility]" /> <statusCode code="completed" /> <effectiveTime value ="" /> <value unit="g/dL" xsi:type="PQ" value="33.3" /> <referenceRange> <observationRange> <text>32.0- 36.0</text> </observationRange> </referenceRange> </ observation> </component> <component> <observation moodCode= "EVN" classCode="OBS"> <templateId root="10.29.840.1.100010.22.4.2 " /> <id nullFlavor="NA" /> <code codeSystem="local" code="MCV " displayName="MCV" /> <statusCode code="completed" /> < effectiveTime value="918755380070" /> <value unit="fL" xsi:type="PQ" value="92.6" /> <referenceRange> <observationRange> <text>82.0-99.0</text> </observationRange> </ referenceRange> </observation> </component> <component> <observation moodCode="EVN" classCode="OBS"> <templateId root= "16.840.1.515306.10..22.4.2" /> <id nullFlavor="NA" /> < code codeSystem="local" code="MONOR" displayName="Monocytes" /> < statusCode code="completed" /> <effectiveTime value="634404286260" /> <value unit="%" xsi:type="PQ" value="11" /> < referenceRange> <observationRange> <text>4-11</text> </observationRange> </referenceRange> </observation> </component> <component> <observation moodCode="EVN" classCode= "OBS"> <templateId root="10.29.840.1.401157.07.02.22.4.2" /> < id nullFlavor="NA" /> <code codeSystem="local" code="MPV" displayName= "MPV" /> <statusCode code="completed" /> <effectiveTime value= "342923634903" /> <value unit="fL" xsi:type="PQ" value="10.4" /> <referenceRange> <observationRange> <text>9.4-12.3</ text> </observationRange> </referenceRange> </ observation> </component> <component> <observation moodCode= "EVN" classCode="OBS"> <templateId root="16.840.1.676589.10..22.4.2 " /> <id nullFlavor="NA" /> <code codeSystem="local" code= "SEGR" displayName="Neutrophils" /> <statusCode code="completed" /> <effectiveTime value="862638749131" /> <value unit="%" xsi: type="PQ" value="56" /> <referenceRange> <observationRange> <text>51-75</text> </observationRange> </ referenceRange> </observation> </component> <component> <observation moodCode="EVN" classCode="OBS"> <templateId root= "10.29.840.1.522127.10.22.4.2" /> <id nullFlavor="NA" /> < code codeSystem="local" code="NRBCA" displayName="Nucleated RBC Automated" /> <statusCode code="completed" /> <effectiveTime value= "501992015580" /> <value unit="/100WBC" xsi:type="PQ" value="0.0" /> <referenceRange> <observationRange> <text /> </observationRange> </referenceRange> </observation> </component> <component> <observation moodCode="EVN" classCode= "OBS"> <templateId root="10.29.840.1.929994..22.4.2" /> < id nullFlavor="NA" /> <code codeSystem="local" code="PLT" displayName= "Platelet Count" /> <statusCode code="completed" /> < effectiveTime value="046918085810" /> <value unit="K/uL" xsi:type="PQ" value="190" /> <referenceRange> <observationRange> <text>150-400</text> </observationRange> </ referenceRange> </observation> </component> <component> <observation moodCode="EVN" classCode="OBS"> <templateId root= "10.29.840.1.917448.07.02.22.4.2" /> <id nullFlavor="NA" /> < code codeSystem="local" code="RBC" displayName="RBC" /> <statusCode code="completed" /> <effectiveTime value="" /> < value unit="10*6/uL" xsi:type="PQ" value="4.21" /> <interpretationCode codeSystem="local" code="*" /> <referenceRange> < observationRange> <text>4.60-6.20</text> </ observationRange> </referenceRange> </observation> </ component> <component> <observation moodCode="EVN" classCode="OBS"> <templateId root="216.840.1.755974.07.02.22.4.2" /> <id nullFlavor="NA" /> <code codeSystem="local" code="RDW" displayName="RDW " /> <statusCode code="completed" /> <effectiveTime value= "" /> <value unit="%" xsi:type="PQ" value="14.5" /> <referenceRange> <observationRange> <text>11.5- 14.5</text> </observationRange> </referenceRange> </ observation> </component> <component> <observation moodCode= "EVN" classCode="OBS"> <templateId root="216.840.1.677168.07.02.22.4.2 " /> <id nullFlavor="NA" /> <code codeSystem="local" code= "WBCIR" displayName="WBC" /> <statusCode code="completed" /> < effectiveTime value="" /> <value unit="K/uL" xsi:type="PQ" value="7.5" /> <referenceRange> <observationRange> <text>4.8-10.8</text> </observationRange> </ referenceRange> </observation> </component> </organizer> </entry > <entry> <organizer moodCode="EVN" classCode="BATTERY"> <templateId root="216.840.1.657472.10..22.4.1" /> <id nullFlavor="NA" /> <code codeSystem="local" code="UA" displayName="Urinalysis with reflex microscopic" / > <statusCode code="completed" /> <component> <observation moodCode="EVN" classCode="OBS"> <templateId root= "216.840.1.465044...4.2" /> <id nullFlavor="NA" /> < code codeSystem="local" code="UAPP" displayName="Appearance" /> < statusCode code="completed" /> <effectiveTime value="" /> <value unit="NA" xsi:type="PQ" value="Clear" /> < referenceRange> <observationRange> <text /> < /observationRange> </referenceRange> </observation> </ component> <component> <observation moodCode="EVN" classCode="OBS"> <templateId root="216.840.1.037039.10...4.2" /> <id nullFlavor="NA" /> <code codeSystem="local" code="UBIL" displayName= "Bilirubin" /> <statusCode code="completed" /> <effectiveTime value="" /> <value unit="NA" xsi:type="PQ" value="Negative " /> <referenceRange> <observationRange> <text> Negative</text> </observationRange> </referenceRange> </observation> </component> <component> <observation moodCode ="EVN" classCode="OBS"> <templateId root= "10.29.840.1.166083.22.4.2" /> <id nullFlavor="NA" /> < code codeSystem="local" code="UBLD" displayName="Blood" /> <statusCode code="completed" /> <effectiveTime value="" /> < value unit="NA" xsi:type="PQ" value="Negative" /> <referenceRange> <observationRange> <text>Negative</text> </ observationRange> </referenceRange> </observation> </ component> <component> <observation moodCode="EVN" classCode="OBS"> <templateId root="16.840.1.848158.07.02.22.4.2" /> <id nullFlavor="NA" /> <code codeSystem="local" code="UCOLR" displayName= "Color" /> <statusCode code="completed" /> <effectiveTime value="" /> <value unit="NA" xsi:type="PQ" value="Yellow" / > <referenceRange> <observationRange> <text /> </observationRange> </referenceRange> </observation > </component> <component> <observation moodCode="EVN" classCode="OBS"> <templateId root="16.840.1.896452.07.02.22.4.2" /> <id nullFlavor="NA" /> <code codeSystem="local" code="UGLU" displayName="Glucose, Urine" /> <statusCode code="completed" /> <effectiveTime value="" /> <value unit="" xsi:type="PQ" value="Negative" /> <referenceRange> <observationRange> <text>Negative</text> </observationRange> </ referenceRange> </observation> </component> <component> <observation moodCode="EVN" classCode="OBS"> <templateId root= "216.840.1.342225.10..4.2" /> <id nullFlavor="NA" /> < code codeSystem="local" code="UKET" displayName="Ketones" /> < statusCode code="completed" /> <effectiveTime value="" /> <value unit="" xsi:type="PQ" value="Negative" /> < referenceRange> <observationRange> <text>Negative</text > </observationRange> </referenceRange> </observation > </component> <component> <observation moodCode="EVN" classCode="OBS"> <templateId root="216.840.1.902065.07.02.22.4.2" /> <id nullFlavor="NA" /> <code codeSystem="local" code="ULEU" displayName="Leukocyte Esterase" /> <statusCode code="completed" /> <effectiveTime value="" /> <value unit="NA" xsi:type ="PQ" value="Negative" /> <referenceRange> <observationRange > <text>Negative</text> </observationRange> </ referenceRange> </observation> </component> <component> <observation moodCode="EVN" classCode="OBS"> <templateId root= "16.840.1.120527.07.02.22.4.2" /> <id nullFlavor="NA" /> < code codeSystem="local" code="UNIT" displayName="Nitrites" /> < statusCode code="completed" /> <effectiveTime value="" /> <value unit="NA" xsi:type="PQ" value="Negative" /> < referenceRange> <observationRange> <text>Negative</text > </observationRange> </referenceRange> </observation > </component> <component> <observation moodCode="EVN" classCode="OBS"> <templateId root="16.840.1.923014.10..22.4.2" /> <id nullFlavor="NA" /> <code codeSystem="local" code="UPH" displayName="pH" /> <statusCode code="completed" /> < effectiveTime value="" /> <value unit="NA" xsi:type="PQ" value="6.0" /> <referenceRange> <observationRange> <text>5.0-8.0</text> </observationRange> </ referenceRange> </observation> </component> <component> <observation moodCode="EVN" classCode="OBS"> <templateId root= "16.840.1.975992....4.2" /> <id nullFlavor="NA" /> < code codeSystem="local" code="UPRO" displayName="Protein" /> < statusCode code="completed" /> <effectiveTime value="" /> <value unit="NA" xsi:type="PQ" value="Pos 1+" /> < interpretationCode codeSystem="local" code="*" /> <referenceRange> <observationRange> <text>Negative</text> </ observationRange> </referenceRange> </observation> </ component> <component> <observation moodCode="EVN" classCode="OBS"> <templateId root="16.840.1.813864.10...4.2" /> <id nullFlavor="NA" /> <code codeSystem="local" code="USPG" displayName= "Specific [place]" /> <statusCode code="completed" /> < effectiveTime value="" /> <value unit="NA" xsi:type="PQ" value="1.020" /> <referenceRange> <observationRange> <text>1.003-1.030</text> </observationRange> </ referenceRange> </observation> </component> <component> <observation moodCode="EVN" classCode="OBS"> <templateId root= "216.840.1.189909.10..22.4.2" /> <id nullFlavor="NA" /> < code codeSystem="local" code="UTYP" displayName="UA Collection type" /> <statusCode code="completed" /> <effectiveTime value="[id number]" / > <value unit="NA" xsi:type="PQ" value="Clean Catch" /> < referenceRange> <observationRange> <text /> < /observationRange> </referenceRange> </observation> </ component> <component> <observation moodCode="EVN" classCode="OBS"> <templateId root="10.29.840.1.827700.07.02.22.4.2" /> <id nullFlavor="NA" /> <code codeSystem="local" code="UURO" displayName= "Urobilinogen" /> <statusCode code="completed" /> < effectiveTime value="194113881325" /> <value unit="mg/dL" xsi:type="PQ " value="4.0" /> <referenceRange> <observationRange> <text><1.0</text> </observationRange> </ referenceRange> </observation> </component> </organizer> </entry > <entry> <organizer moodCode="EVN" classCode="BATTERY"> <templateId root="16.840.1.909669.10.22.4.1" /> <id nullFlavor="NA" /> <code codeSystem="local" code="UMIC" displayName="Urine Microscopic" /> < statusCode code="completed" /> <component> <observation moodCode= "EVN" classCode="OBS"> <templateId root="216.840.1.524903.10..4.2 " /> <id nullFlavor="NA" /> <code codeSystem="local" code= "UBAC" displayName="Bacteria" /> <statusCode code="completed" /> <effectiveTime value="" /> <value unit="NA" xsi:type= "PQ" value="None Seen" /> <referenceRange> <observationRange > <text /> </observationRange> </referenceRange > </observation> </component> <component> <observation moodCode="EVN" classCode="OBS"> <templateId root= "16.840.1.223078...4.2" /> <id nullFlavor="NA" /> < code codeSystem="local" code="UEPI" displayName="Epithelial Cells" /> < statusCode code="completed" /> <effectiveTime value="" /> <value unit="/HPF" xsi:type="PQ" value="None Seen" /> < referenceRange> <observationRange> <text /> < /observationRange> </referenceRange> </observation> </ component> <component> <observation moodCode="EVN" classCode="OBS"> <templateId root="10.29.840.1.267513.10..4.2" /> <id nullFlavor="NA" /> <code codeSystem="local" code="URBC" displayName= "RBC, Urine" /> <statusCode code="completed" /> < effectiveTime value="" /> <value unit="/HPF" xsi:type="PQ" value="0" /> <referenceRange> <observationRange> <text>0-2</text> </observationRange> </referenceRange> </observation> </component> <component> <observation moodCode="EVN" classCode="OBS"> <templateId root= "10.29.840.1.963229.10.4.2" /> <id nullFlavor="NA" /> < code codeSystem="local" code="UMUC" displayName="Urine Mucus" /> < statusCode code="completed" /> <effectiveTime value="303543647547" /> <value unit="NA" xsi:type="PQ" value="Present" /> < referenceRange> <observationRange> <text /> < /observationRange> </referenceRange> </observation> </ component> <component> <observation moodCode="EVN" classCode="OBS"> <templateId root="840.1.150531.07.02.22.4.2" /> <id nullFlavor="NA" /> <code codeSystem="local" code="UWBC" displayName= "WBC, Urine" /> <statusCode code="completed" /> < effectiveTime value="" /> <value unit="/HPF" xsi:type="PQ" value="0" /> <referenceRange> <observationRange> <text>0-4</text> </observationRange> </referenceRange> </observation> </component> </organizer> </entry> <entry> < organizer moodCode="EVN" classCode="BATTERY"> <templateId root= "10.29.840.1.184207.07.02.22.4.1" /> <id nullFlavor="NA" /> <code codeSystem="local" code="BMP" displayName="Basic Metabolic Panel (BMP)" /> <statusCode code="completed" /> <component> <observation moodCode= "EVN" classCode="OBS"> <templateId root="10.29.830.1.432380....4.2 " /> <id nullFlavor="NA" /> <code codeSystem="local" code= "AGAP" displayName="Anion Gap" /> <statusCode code="completed" /> <effectiveTime value="" /> <value unit="mEq/L" xsi: type="PQ" value="7" /> <referenceRange> <observationRange> <text>3-20</text> </observationRange> </ referenceRange> </observation> </component> <component> <observation moodCode="EVN" classCode="OBS"> <templateId root= "216.840.1.943126.07.02.22.4.2" /> <id nullFlavor="NA" /> < code codeSystem="local" code="BUN" displayName="BUN" /> <statusCode code="completed" /> <effectiveTime value="" /> < value unit="mg/dL" xsi:type="PQ" value="28" /> <interpretationCode codeSystem="local" code="*" /> <referenceRange> < observationRange> <text>4-20</text> </observationRange> </referenceRange> </observation> </component> < component> <observation moodCode="EVN" classCode="OBS"> < templateId root="16.840.1.929061.07.02.22.4.2" /> <id nullFlavor="NA " /> <code codeSystem="local" code="CA" displayName="Calcium" /> <statusCode code="completed" /> <effectiveTime value=" " /> <value unit="mg/dL" xsi:type="PQ" value="8.7" /> < referenceRange> <observationRange> <text>8.6-10.0</text > </observationRange> </referenceRange> </observation > </component> <component> <observation moodCode="EVN" classCode="OBS"> <templateId root="216.840.1.724141.10..4.2" /> <id nullFlavor="NA" /> <code codeSystem="local" code="CL" displayName="Chloride" /> <statusCode code="completed" /> < effectiveTime value="" /> <value unit="mEq/L" xsi:type="PQ " value="105" /> <referenceRange> <observationRange> <text>99-109</text> </observationRange> </ referenceRange> </observation> </component> <component> <observation moodCode="EVN" classCode="OBS"> <templateId root= "216.840.1.175346.07.02.22.4.2" /> <id nullFlavor="NA" /> < code codeSystem="local" code="CO2" displayName="CO2" /> <statusCode code="completed" /> <effectiveTime value="" /> < value unit="mEq/L" xsi:type="PQ" value="22" /> <referenceRange> <observationRange> <text>22-32</text> </ observationRange> </referenceRange> </observation> </ component> <component> <observation moodCode="EVN" classCode="OBS"> <templateId root="16.840.1.909045.10.22.4.2" /> <id nullFlavor="NA" /> <code codeSystem="local" code="CREAT" displayName= "Creatinine" /> <statusCode code="completed" /> < effectiveTime value="" /> <value unit="mg/dL" xsi:type="PQ " value="1.02" /> <referenceRange> <observationRange> <text>0.64-1.27</text> </observationRange> </ referenceRange> </observation> </component> <component> <observation moodCode="EVN" classCode="OBS"> <templateId root= "16.840.1.107003.10...4.2" /> <id nullFlavor="NA" /> < code codeSystem="local" code="GLU" displayName="Glucose" /> < statusCode code="completed" /> <effectiveTime value="102688670611" /> <value unit="mg/dL" xsi:type="PQ" value="94" /> < referenceRange> <observationRange> <text>70-100</text> </observationRange> </referenceRange> </observation> </component> <component> <observation moodCode="EVN" classCode ="OBS"> <templateId root="840.1.999767.07.02.22.4.2" /> < id nullFlavor="NA" /> <code codeSystem="local" code="K" displayName= "Potassium" /> <statusCode code="completed" /> <effectiveTime value="601724599734" /> <value unit="mEq/L" xsi:type="PQ" value="4.9" / > <referenceRange> <observationRange> <text>3.6 -5.1</text> </observationRange> </referenceRange> </ observation> </component> <component> <observation moodCode= "EVN" classCode="OBS"> <templateId root="10.29.840.1.324089.07.02.22.4.2 " /> <id nullFlavor="NA" /> <code codeSystem="local" code="NA " displayName="Sodium" /> <statusCode code="completed" /> < effectiveTime value="289465207327" /> <value unit="mEq/L" xsi:type="PQ " value="134" /> <interpretationCode codeSystem="local" code="*" /> <referenceRange> <observationRange> <text>136-144 </text> </observationRange> </referenceRange> </ observation> </component> </organizer> </entry> <entry> <organizer moodCode="EVN" classCode="BATTERY"> <templateId root= "216.840.1.550254.10..22.4.1" /> <id nullFlavor="NA" /> <code codeSystem="local" code="GFR" displayName="eGFR" /> <statusCode code= "completed" /> <component> <observation moodCode="EVN" classCode= "OBS"> <templateId root="216.840.1.402666.10..22.4.2" /> < id nullFlavor="NA" /> <code codeSystem="local" code="GFR" displayName= "eGFR" /> <statusCode code="completed" /> <effectiveTime value ="168554890350" /> <value unit="mL/min" xsi:type="PQ" value=">60" / > <referenceRange> <observationRange> <text>&gt ;60</text> </observationRange> </referenceRange> </ observation> </component> </organizer> </entry> <entry> <organizer moodCode="EVN" classCode="BATTERY"> <templateId root= "216.840.1.294870.10..22.4.1" /> <id nullFlavor="NA" /> <code codeSystem="local" code="PT" displayName="Protime (INR)" /> <statusCode code="completed" /> <component> <observation moodCode="EVN" classCode="OBS"> <templateId root="16.840.1.415122.10..22.4.2" /> <id nullFlavor="NA" /> <code codeSystem="local" code="INR" displayName="INR" /> <statusCode code="completed" /> < effectiveTime value="931412565779" /> <value unit="NA" xsi:type="PQ" value="0.8" /> <interpretationCode codeSystem="local" code="*" /> <referenceRange> <observationRange> <text>0.9-1.2</ text> </observationRange> </referenceRange> </ observation> </component> </organizer> </entry> <entry> <organizer moodCode="EVN" classCode="BATTERY"> <templateId root= "16.840.1.098134.10..22.4.1" /> <id nullFlavor="NA" /> <code codeSystem="local" code="LIVER" displayName="Hepatic Function Panel" /> < statusCode code="completed" /> <component> <observation moodCode= "EVN" classCode="OBS"> <templateId root="216.840.1.046124.10..22.4.2 " /> <id nullFlavor="NA" /> <code codeSystem="local" code="ALB " displayName="Albumin" /> <statusCode code="completed" /> < effectiveTime value="957917692498" /> <value unit="g/dL" xsi:type="PQ" value="3.6" /> <referenceRange> <observationRange> <text>3.5-4.8</text> </observationRange> </ referenceRange> </observation> </component> <component> <observation moodCode="EVN" classCode="OBS"> <templateId root= "10.29.840.1.719302.07.02.22.4.2" /> <id nullFlavor="NA" /> < code codeSystem="local" code="ALP" displayName="Alkaline Phosphatase" /> <statusCode code="completed" /> <effectiveTime value="794974240648" /> <value unit="U/L" xsi:type="PQ" value="96" /> < referenceRange> <observationRange> <text>26-104</text> </observationRange> </referenceRange> </observation> </component> <component> <observation moodCode="EVN" classCode ="OBS"> <templateId root="216.840.1.922867.07.02.22.4.2" /> < id nullFlavor="NA" /> <code codeSystem="local" code="ALT" displayName= "ALT (SGPT)" /> <statusCode code="completed" /> < effectiveTime value="" /> <value unit="U/L" xsi:type="PQ" value="92" /> <interpretationCode codeSystem="local" code="*" /> <referenceRange> <observationRange> <text>17-63</ text> </observationRange> </referenceRange> </ observation> </component> <component> <observation moodCode= "EVN" classCode="OBS"> <templateId root="10.29.840.1.589640.07.02.22.4.2 " /> <id nullFlavor="NA" /> <code codeSystem="local" code="AST " displayName="AST (SGOT)" /> <statusCode code="completed" /> <effectiveTime value="" /> <value unit="U/L" xsi:type="PQ" value="77" /> <interpretationCode codeSystem="local" code="*" /> <referenceRange> <observationRange> <text>15-41</ text> </observationRange> </referenceRange> </ observation> </component> <component> <observation moodCode= "EVN" classCode="OBS"> <templateId root="216.840.1.782217.10..4.2 " /> <id nullFlavor="NA" /> <code codeSystem="local" code= "BILID" displayName="Bilirubin Direct" /> <statusCode code="completed" /> <effectiveTime value="" /> <value unit="mg/dL" xsi:type="PQ" value="0.3" /> <interpretationCode codeSystem="local" code="*" /> <referenceRange> <observationRange> <text>0.0-0.2</text> </observationRange> </referenceRange > </observation> </component> <component> <observation moodCode="EVN" classCode="OBS"> <templateId root= "10.29.840.1.565669.07.02.22.4.2" /> <id nullFlavor="NA" /> < code codeSystem="local" code="BILII" displayName="Bilirubin Indirect" /> <statusCode code="completed" /> <effectiveTime value="" /> <value unit="mg/dL" xsi:type="PQ" value="0.5" /> < referenceRange> <observationRange> <text>0.0-1.0</text> </observationRange> </referenceRange> </observation > </component> <component> <observation moodCode="EVN" classCode="OBS"> <templateId root="16.840.1.415936.10..4.2" /> <id nullFlavor="NA" /> <code codeSystem="local" code="BILIT" displayName="Bilirubin Total" /> <statusCode code="completed" /> <effectiveTime value="520834997430" /> <value unit="mg/dL" xsi:type ="PQ" value="0.8" /> <referenceRange> <observationRange> <text>0.2-1.2</text> </observationRange> </ referenceRange> </observation> </component> <component> <observation moodCode="EVN" classCode="OBS"> <templateId root= "840.1.309081.07.02.22.4.2" /> <id nullFlavor="NA" /> < code codeSystem="local" code="TP" displayName="Protein" /> <statusCode code="completed" /> <effectiveTime value="" /> < value unit="g/dL" xsi:type="PQ" value="6.7" /> <referenceRange> <observationRange> <text>6.1-7.9</text> </ observationRange> </referenceRange> </observation> </ component> </organizer> </entry> <entry> <organizer moodCode="EVN" classCode="BATTERY"> <templateId root="840.1.169414.07.02.22.4.1" /> <id nullFlavor="NA" /> <code codeSystem="local" code="CBCWD" displayName="CBC With Platelet and Differential" /> <statusCode code= "completed" /> <component> <observation moodCode="EVN" classCode= "OBS"> <templateId root="840.1.093785.22.4.2" /> < id nullFlavor="NA" /> <code codeSystem="local" code="ABASR" displayName ="Absolute Basophils" /> <statusCode code="completed" /> < effectiveTime value="909879105297" /> <value unit="10*3/uL" xsi:type= "PQ" value="0.06" /> <referenceRange> <observationRange> <text>0.00-0.20</text> </observationRange> </ referenceRange> </observation> </component> <component> <observation moodCode="EVN" classCode="OBS"> <templateId root= "216.840.1.103650.07.02.22.4.2" /> <id nullFlavor="NA" /> < code codeSystem="local" code="AEOSR" displayName="Absolute Eosinophils" /> <statusCode code="completed" /> <effectiveTime value="627984545049 " /> <value unit="10*3/uL" xsi:type="PQ" value="0.80" /> < interpretationCode codeSystem="local" code="*" /> <referenceRange> <observationRange> <text>0.00-0.50</text> </ observationRange> </referenceRange> </observation> </ component> <component> <observation moodCode="EVN" classCode="OBS"> <templateId root="10.29.840.1.351249.07.02.224.2" /> <id nullFlavor="NA" /> <code codeSystem="local" code="ALYMR" displayName= "Absolute Lymphocytes" /> <statusCode code="completed" /> < effectiveTime value="249821623847" /> <value unit="10*3/uL" xsi:type= "PQ" value="2.56" /> <referenceRange> <observationRange> <text>0.80-3.30</text> </observationRange> </ referenceRange> </observation> </component> <component> <observation moodCode="EVN" classCode="OBS"> <templateId root= "10.29.840.1.140704.07.02.22.4.2" /> <id nullFlavor="NA" /> < code codeSystem="local" code="AMONR" displayName="Absolute Monocytes" /> <statusCode code="completed" /> <effectiveTime value="334176814437" /> <value unit="10*3/uL" xsi:type="PQ" value="1.13" /> < interpretationCode codeSystem="local" code="*" /> <referenceRange> <observationRange> <text>0.30-1.00</text> </ observationRange> </referenceRange> </observation> </ component> <component> <observation moodCode="EVN" classCode="OBS"> <templateId root="16.840.1.199244.07.02.224.2" /> <id nullFlavor="NA" /> <code codeSystem="local" code="ASEGR" displayName= "Absolute Neutrophils" /> <statusCode code="completed" /> < effectiveTime value="518387424100" /> <value unit="10*3/uL" xsi:type= "PQ" value="4.68" /> <referenceRange> <observationRange> <text>1.90-7.00</text> </observationRange> </ referenceRange> </observation> </component> <component> <observation moodCode="EVN" classCode="OBS"> <templateId root= "16.840.1.270498.07.02.224.2" /> <id nullFlavor="NA" /> < code codeSystem="local" code="BASOR" displayName="Basophils" /> < statusCode code="completed" /> <effectiveTime value="197735387062" /> <value unit="%" xsi:type="PQ" value="1" /> <referenceRange > <observationRange> <text>0-2</text> </ observationRange> </referenceRange> </observation> </ component> <component> <observation moodCode="EVN" classCode="OBS"> <templateId root="216.840.1.051957.10.22.4.2" /> <id nullFlavor="NA" /> <code codeSystem="local" code="EOSR" displayName= "Eosinophils" /> <statusCode code="completed" /> < effectiveTime value="039051387019" /> <value unit="%" xsi:type="PQ " value="9" /> <interpretationCode codeSystem="local" code="*" /> <referenceRange> <observationRange> <text>0-4</text > </observationRange> </referenceRange> </observation > </component> <component> <observation moodCode="EVN" classCode="OBS"> <templateId root="216.840.1.555354.07.02.224.2" /> <id nullFlavor="NA" /> <code codeSystem="local" code="HCT" displayName="HCT" /> <statusCode code="completed" /> < effectiveTime value="588727372089" /> <value unit="%" xsi:type="PQ " value="47.5" /> <referenceRange> <observationRange> <text>42.0-52.0</text> </observationRange> </ referenceRange> </observation> </component> <component> <observation moodCode="EVN" classCode="OBS"> <templateId root= "216.840.1.010824.1022.4.2" /> <id nullFlavor="NA" /> < code codeSystem="local" code="HGB" displayName="HGB" /> <statusCode code="completed" /> <effectiveTime value="917492327026" /> < value unit="g/dL" xsi:type="PQ" value="16.2" /> <referenceRange> <observationRange> <text>14.0-18.0</text> </ observationRange> </referenceRange> </observation> </ component> <component> <observation moodCode="EVN" classCode="OBS"> <templateId root="216.840.1.216896.10..4.2" /> <id nullFlavor="NA" /> <code codeSystem="local" code="IMGA" displayName= "Immature Granulocytes" /> <statusCode code="completed" /> < effectiveTime value="503878929428" /> <value unit="%" xsi:type="PQ " value="0.5" /> <referenceRange> <observationRange> <text>0.0-1.0</text> </observationRange> </ referenceRange> </observation> </component> <component> <observation moodCode="EVN" classCode="OBS"> <templateId root= "216.840.1.866261.07.02.22.4.2" /> <id nullFlavor="NA" /> < code codeSystem="local" code="LYMPR" displayName="Lymphocytes" /> < statusCode code="completed" /> <effectiveTime value="887324059462" /> <value unit="%" xsi:type="PQ" value="28" /> < referenceRange> <observationRange> <text>20-46</text> </observationRange> </referenceRange> </observation> </component> <component> <observation moodCode="EVN" classCode= "OBS"> <templateId root="216.840.1.581697.10...4.2" /> < id nullFlavor="NA" /> <code codeSystem="local" code="MCH" displayName= "MCH" /> <statusCode code="completed" /> <effectiveTime value= "605180339170" /> <value unit="pg" xsi:type="PQ" value="31.3" /> <referenceRange> <observationRange> <text>27.0-32.0< /text> </observationRange> </referenceRange> </ observation> </component> <component> <observation moodCode= "EVN" classCode="OBS"> <templateId root="216.840.1.378199.10.20.22.4.2 " /> <id nullFlavor="NA" /> <code codeSystem="local" code= "MCHC" displayName="MCHC" /> <statusCode code="completed" /> < effectiveTime value="035619308945" /> <value unit="g/dL" xsi:type="PQ" value="34.1" /> <referenceRange> <observationRange> <text>32.0-36.0</text> </observationRange> </ referenceRange> </observation> </component> <component> <observation moodCode="EVN" classCode="OBS"> <templateId root= "216.840.1.452848.10.20.22.4.2" /> <id nullFlavor="NA" /> < code codeSystem="local" code="MCV" displayName="MCV" /> <statusCode code="completed" /> <effectiveTime value="614323231832" /> < value unit="fL" xsi:type="PQ" value="91.9" /> <referenceRange> <observationRange> <text>82.0-99.0</text> </ observationRange> </referenceRange> </observation> </ component> <component> <observation moodCode="EVN" classCode="OBS"> <templateId root="216.840.1.852836.07.02.22.4.2" /> <id nullFlavor="NA" /> <code codeSystem="local" code="MONOR" displayName= "Monocytes" /> <statusCode code="completed" /> <effectiveTime value="008963334217" /> <value unit="%" xsi:type="PQ" value="12" / > <interpretationCode codeSystem="local" code="*" /> < referenceRange> <observationRange> <text>4-11</text> </observationRange> </referenceRange> </observation> </component> <component> <observation moodCode="EVN" classCode= "OBS"> <templateId root="16.840.1.094869.07.02.22.4.2" /> < id nullFlavor="NA" /> <code codeSystem="local" code="MPV" displayName= "MPV" /> <statusCode code="completed" /> <effectiveTime value= "366566598068" /> <value unit="fL" xsi:type="PQ" value="10.9" /> <referenceRange> <observationRange> <text>9.4-12.3</ text> </observationRange> </referenceRange> </ observation> </component> <component> <observation moodCode= "EVN" classCode="OBS"> <templateId root="10.29.840.1.275528.22.4.2 " /> <id nullFlavor="NA" /> <code codeSystem="local" code= "SEGR" displayName="Neutrophils" /> <statusCode code="completed" /> <effectiveTime value="804656115368" /> <value unit="%" xsi: type="PQ" value="51" /> <referenceRange> <observationRange> <text>51-75</text> </observationRange> </ referenceRange> </observation> </component> <component> <observation moodCode="EVN" classCode="OBS"> <templateId root= "10.29.840.1.985628.07.02.22.4.2" /> <id nullFlavor="NA" /> < code codeSystem="local" code="NRBCA" displayName="Nucleated RBC Automated" /> <statusCode code="completed" /> <effectiveTime value= "" /> <value unit="/100WBC" xsi:type="PQ" value="0.0" /> <referenceRange> <observationRange> <text /> </observationRange> </referenceRange> </observation> </component> <component> <observation moodCode="EVN" classCode= "OBS"> <templateId root="10.29.840.1.041356.07.02.22.4.2" /> < id nullFlavor="NA" /> <code codeSystem="local" code="PLT" displayName= "Platelet Count" /> <statusCode code="completed" /> < effectiveTime value="" /> <value unit="K/uL" xsi:type="PQ" value="218" /> <referenceRange> <observationRange> <text>150-400</text> </observationRange> </ referenceRange> </observation> </component> <component> <observation moodCode="EVN" classCode="OBS"> <templateId root= "10.29.840.1.907113.1022.4.2" /> <id nullFlavor="NA" /> < code codeSystem="local" code="RBC" displayName="RBC" /> <statusCode code="completed" /> <effectiveTime value="" /> < value unit="10*6/uL" xsi:type="PQ" value="5.17" /> <referenceRange> <observationRange> <text>4.60-6.20</text> </ observationRange> </referenceRange> </observation> </ component> <component> <observation moodCode="EVN" classCode="OBS"> <templateId root="16.840.1.933869.10.20.22.4.2" /> <id nullFlavor="NA" /> <code codeSystem="local" code="RDW" displayName="RDW " /> <statusCode code="completed" /> <effectiveTime value= "298158151492" /> <value unit="%" xsi:type="PQ" value="14.2" /> <referenceRange> <observationRange> <text>11.5- 14.5</text> </observationRange> </referenceRange> </ observation> </component> <component> <observation moodCode= "EVN" classCode="OBS"> <templateId root="10.29.840.1.205590.10..22.4.2 " /> <id nullFlavor="NA" /> <code codeSystem="local" code= "WBCIR" displayName="WBC" /> <statusCode code="completed" /> < effectiveTime value="183846970437" /> <value unit="K/uL" xsi:type="PQ" value="9.3" /> <referenceRange> <observationRange> <text>4.8-10.8</text> </observationRange> </ referenceRange> </observation> </component> </organizer> </entry > <entry> <organizer moodCode="EVN" classCode="BATTERY"> <templateId root="10.29.840.1.260950.10.20.22.4.1" /> <id nullFlavor="NA" /> <code codeSystem="local" code="CMP" displayName="Comprehensive Metabolic Panel (CMP)" /> <statusCode code="completed" /> <component> <observation moodCode="EVN" classCode="OBS"> <templateId root= "216.840.1.819725.07.02.22.4.2" /> <id nullFlavor="NA" /> < code codeSystem="local" code="ALB" displayName="Albumin" /> < statusCode code="completed" /> <effectiveTime value="" /> <value unit="g/dL" xsi:type="PQ" value="4.3" /> < referenceRange> <observationRange> <text>3.5-4.8</text> </observationRange> </referenceRange> </observation > </component> <component> <observation moodCode="EVN" classCode="OBS"> <templateId root="10.29.840.1.203862.07.02.22.4.2" /> <id nullFlavor="NA" /> <code codeSystem="local" code="ALP" displayName="Alkaline Phosphatase" /> <statusCode code="completed" /> <effectiveTime value="079878748539" /> <value unit="U/L" xsi: type="PQ" value="109" /> <interpretationCode codeSystem="local" code="* " /> <referenceRange> <observationRange> <text> 26-104</text> </observationRange> </referenceRange> < /observation> </component> <component> <observation moodCode= "EVN" classCode="OBS"> <templateId root="16.840.1.287192.10..4.2 " /> <id nullFlavor="NA" /> <code codeSystem="local" code="ALT " displayName="ALT (SGPT)" /> <statusCode code="completed" /> <effectiveTime value="" /> <value unit="U/L" xsi:type="PQ" value="113" /> <interpretationCode codeSystem="local" code="*" /> <referenceRange> <observationRange> <text>17-63</ text> </observationRange> </referenceRange> </ observation> </component> <component> <observation moodCode= "EVN" classCode="OBS"> <templateId root="10.29.840.1.424996.22.4.2 " /> <id nullFlavor="NA" /> <code codeSystem="local" code= "AGAP" displayName="Anion Gap" /> <statusCode code="completed" /> <effectiveTime value="" /> <value unit="mEq/L" xsi: type="PQ" value="10" /> <referenceRange> <observationRange> <text>3-20</text> </observationRange> </ referenceRange> </observation> </component> <component> <observation moodCode="EVN" classCode="OBS"> <templateId root= "10.29.840.1.966553..22.4.2" /> <id nullFlavor="NA" /> < code codeSystem="local" code="AST" displayName="AST (SGOT)" /> < statusCode code="completed" /> <effectiveTime value="" /> <value unit="U/L" xsi:type="PQ" value="94" /> < interpretationCode codeSystem="local" code="*" /> <referenceRange> <observationRange> <text>15-41</text> </ observationRange> </referenceRange> </observation> </ component> <component> <observation moodCode="EVN" classCode="OBS"> <templateId root="10.29.840.1.736221.07.02.22.4.2" /> <id nullFlavor="NA" /> <code codeSystem="local" code="BILIT" displayName= "Bilirubin Total" /> <statusCode code="completed" /> < effectiveTime value="" /> <value unit="mg/dL" xsi:type="PQ " value="0.6" /> <referenceRange> <observationRange> <text>0.2-1.2</text> </observationRange> </ referenceRange> </observation> </component> <component> <observation moodCode="EVN" classCode="OBS"> <templateId root= "216.840.1.032340.07.02.22.4.2" /> <id nullFlavor="NA" /> < code codeSystem="local" code="BUN" displayName="BUN" /> <statusCode code="completed" /> <effectiveTime value="" /> < value unit="mg/dL" xsi:type="PQ" value="35" /> <interpretationCode codeSystem="local" code="*" /> <referenceRange> < observationRange> <text>4-20</text> </observationRange> </referenceRange> </observation> </component> < component> <observation moodCode="EVN" classCode="OBS"> < templateId root="216.840.1.729384.07.02.22.4.2" /> <id nullFlavor="NA " /> <code codeSystem="local" code="CA" displayName="Calcium" /> <statusCode code="completed" /> <effectiveTime value=" " /> <value unit="mg/dL" xsi:type="PQ" value="9.7" /> < referenceRange> <observationRange> <text>8.6-10.0</text > </observationRange> </referenceRange> </observation > </component> <component> <observation moodCode="EVN" classCode="OBS"> <templateId root="216.840.1.398651.10.22.4.2" /> <id nullFlavor="NA" /> <code codeSystem="local" code="CL" displayName="Chloride" /> <statusCode code="completed" /> < effectiveTime value="" /> <value unit="mEq/L" xsi:type="PQ " value="98" /> <interpretationCode codeSystem="local" code="*" /> <referenceRange> <observationRange> <text>99-109</ text> </observationRange> </referenceRange> </ observation> </component> <component> <observation moodCode= "EVN" classCode="OBS"> <templateId root="10.29.840.1.849622.07.02.22.4.2 " /> <id nullFlavor="NA" /> <code codeSystem="local" code="CO2 " displayName="CO2" /> <statusCode code="completed" /> < effectiveTime value="" /> <value unit="mEq/L" xsi:type="PQ " value="24" /> <referenceRange> <observationRange> <text>22-32</text> </observationRange> </ referenceRange> </observation> </component> <component> <observation moodCode="EVN" classCode="OBS"> <templateId root= "16.840.1.667919.10.20.22.4.2" /> <id nullFlavor="NA" /> < code codeSystem="local" code="CREAT" displayName="Creatinine" /> < statusCode code="completed" /> <effectiveTime value="" /> <value unit="mg/dL" xsi:type="PQ" value="1.11" /> < referenceRange> <observationRange> <text>0.64-1.27</text > </observationRange> </referenceRange> </observation > </component> <component> <observation moodCode="EVN" classCode="OBS"> <templateId root="10.29.840.1.475347.10.22.4.2" /> <id nullFlavor="NA" /> <code codeSystem="local" code="GLOB" displayName="Globulin" /> <statusCode code="completed" /> < effectiveTime value="315053195540" /> <value unit="g/dL" xsi:type="PQ" value="4.0" /> <referenceRange> <observationRange> <text>1.9-4.3</text> </observationRange> </ referenceRange> </observation> </component> <component> <observation moodCode="EVN" classCode="OBS"> <templateId root= "840.1.903262.07.02.22.4.2" /> <id nullFlavor="NA" /> < code codeSystem="local" code="GLU" displayName="Glucose" /> < statusCode code="completed" /> <effectiveTime value="201300664650" /> <value unit="mg/dL" xsi:type="PQ" value="84" /> < referenceRange> <observationRange> <text>70-100</text> </observationRange> </referenceRange> </observation> </component> <component> <observation moodCode="EVN" classCode ="OBS"> <templateId root="840.1.678673.10.4.2" /> < id nullFlavor="NA" /> <code codeSystem="local" code="K" displayName= "Potassium" /> <statusCode code="completed" /> <effectiveTime value="154393761791" /> <value unit="mEq/L" xsi:type="PQ" value="5.0" / > <referenceRange> <observationRange> <text>3.6 -5.1</text> </observationRange> </referenceRange> </ observation> </component> <component> <observation moodCode= "EVN" classCode="OBS"> <templateId root="216.840.1.369480.10..22.4.2 " /> <id nullFlavor="NA" /> <code codeSystem="local" code="TP " displayName="Protein" /> <statusCode code="completed" /> < effectiveTime value="578735519766" /> <value unit="g/dL" xsi:type="PQ" value="8.3" /> <interpretationCode codeSystem="local" code="*" /> <referenceRange> <observationRange> <text>6.1-7.9</ text> </observationRange> </referenceRange> </ observation> </component> <component> <observation moodCode= "EVN" classCode="OBS"> <templateId root="216.840.1.254222.10..22.4.2 " /> <id nullFlavor="NA" /> <code codeSystem="local" code="NA " displayName="Sodium" /> <statusCode code="completed" /> < effectiveTime value="064736598092" /> <value unit="mEq/L" xsi:type="PQ " value="132" /> <interpretationCode codeSystem="local" code="*" /> <referenceRange> <observationRange> <text>136-144 </text> </observationRange> </referenceRange> </ observation> </component> </organizer> </entry> <entry> <organizer moodCode="EVN" classCode="BATTERY"> <templateId root= "2.16.840.1.424097.10.22.4.1" /> <id nullFlavor="NA" /> <code codeSystem="local" code="GFR" displayName="eGFR" /> <statusCode code= "completed" /> <component> <observation moodCode="EVN" classCode= "OBS"> <templateId root="10.29.840.1.685119.07.02.22.4.2" /> < id nullFlavor="NA" /> <code codeSystem="local" code="GFR" displayName= "eGFR" /> <statusCode code="completed" /> <effectiveTime value ="880201281528" /> <value unit="mL/min" xsi:type="PQ" value=">60" / > <referenceRange> <observationRange> <text>&gt ;60</text> </observationRange> </referenceRange> </ observation> </component> </organizer> </entry> <entry> <organizer moodCode="EVN" classCode="BATTERY"> <templateId root= "10.29.840.1.797535.07.02.22.4.1" /> <id nullFlavor="NA" /> <code codeSystem="local" code="TROP" displayName="Troponin" /> <statusCode code= "completed" /> <component> <observation moodCode="EVN" classCode= "OBS"> <templateId root="216.840.1.701528.1022.4.2" /> < id nullFlavor="NA" /> <code codeSystem="local" code="TROP" displayName= "Troponin" /> <statusCode code="completed" /> <effectiveTime value="613866596533" /> <value unit="ng/mL" xsi:type="PQ" value="< 0.05" /> <referenceRange> <observationRange> < text><0.06</text> </observationRange> </referenceRange> </observation> </component> </organizer> </entry> <entry> < organizer moodCode="EVN" classCode="BATTERY"> <templateId root= "10.29.840.1.177886.10..22.4.1" /> <id nullFlavor="NA" /> <code codeSystem="local" code="BNP" displayName="B-Type Natriuretic Peptide" /> < statusCode code="completed" /> <component> <observation moodCode= "EVN" classCode="OBS"> <templateId root="840.1.330223.07.02.22.4.2 " /> <id nullFlavor="NA" /> <code codeSystem="local" code="BNP " displayName="B-Type Natriuretic Peptide" /> <statusCode code= "completed" /> <effectiveTime value="090490462880" /> <value unit="pg/mL" xsi:type="PQ" value="46" /> <referenceRange> < observationRange> <text>0-99</text> </observationRange> </referenceRange> </observation> </component> </ organizer> </entry> <entry> <organizer moodCode="EVN" classCode="BATTERY"> <templateId root="840.1.804651.07.02.22.4.1" /> <id nullFlavor= "NA" /> <code codeSystem="local" code="LACTN" displayName="Lactic Acid NPT " /> <statusCode code="completed" /> <component> <observation moodCode="EVN" classCode="OBS"> <templateId root= "840.1.059156.10..22.4.2" /> <id nullFlavor="NA" /> < code codeSystem="local" code="LACTN" displayName="Lactic Acid NPT" /> < statusCode code="completed" /> <effectiveTime value="657046222584" /> <value unit="mEq/L" xsi:type="PQ" value="1.5" /> < referenceRange> <observationRange> <text>0.5-2.2</text> </observationRange> </referenceRange> </observation > </component> </organizer> </entry> <entry> <organizer moodCode= "EVN" classCode="BATTERY"> <templateId root="10.29.840.1.630921.10..22.4.1 " /> <id nullFlavor="NA" /> <code codeSystem="local" code="ABGRT" displayName="Blood Gases, Arterial (RT)" /> <statusCode code="completed" / > <component> <observation moodCode="EVN" classCode="OBS"> <templateId root="10.29.840.1.673720.10..22.4.2" /> <id nullFlavor="NA " /> <code codeSystem="local" code="YNES" displayName="Arterial Base Excess" /> <statusCode code="completed" /> <effectiveTime value="675996134803" /> <value unit="NA" xsi:type="PQ" value="-3" /> <interpretationCode codeSystem="local" code="*" /> < referenceRange> <observationRange> <text>0-2</text> </observationRange> </referenceRange> </observation> </component> <component> <observation moodCode="EVN" classCode= "OBS"> <templateId root="10.29.840.1.799031.10..22.4.2" /> < id nullFlavor="NA" /> <code codeSystem="local" code="AHCO3" displayName ="Arterial Bicarbonate" /> <statusCode code="completed" /> < effectiveTime value="681409632977" /> <value unit="mEq/L" xsi:type="PQ " value="21" /> <interpretationCode codeSystem="local" code="*" /> <referenceRange> <observationRange> <text>22-26</ text> </observationRange> </referenceRange> </ observation> </component> <component> <observation moodCode= "EVN" classCode="OBS"> <templateId root="2.16.840.1.699224.10.20.22.4.2 " /> <id nullFlavor="NA" /> <code codeSystem="local" code= "AOSAT" displayName="Arterial O2 Saturation" /> <statusCode code= "completed" /> <effectiveTime value="081434464296" /> <value unit="%" xsi:type="PQ" value="91.5" /> <referenceRange> <observationRange> <text>90.0-97.0</text> </ observationRange> </referenceRange> </observation> </ component> <component> <observation moodCode="EVN" classCode="OBS"> <templateId root="2.16.840.1.468866.10.20.22.4.2" /> <id nullFlavor="NA" /> <code codeSystem="local" code="APCO2" displayName= "Arterial PCO2" /> <statusCode code="completed" /> < effectiveTime value="300553336020" /> <value unit="mmHg" xsi:type="PQ" value="35" /> <referenceRange> <observationRange> <text>35-45</text> </observationRange> </referenceRange > </observation> </component> <component> <observation moodCode="EVN" classCode="OBS"> <templateId root= "2.16.840.1.647851.10.20.22.4.2" /> <id nullFlavor="NA" /> < code codeSystem="local" code="APH" displayName="Arterial PH" /> < statusCode code="completed" /> <effectiveTime value="850988912888" /> <value unit="NA" xsi:type="PQ" value="7.40" /> <referenceRange > <observationRange> <text>7.35-7.45</text> < /observationRange> </referenceRange> </observation> </ component> <component> <observation moodCode="EVN" classCode="OBS"> <templateId root="10.29.840.1.118681.10...4.2" /> <id nullFlavor="NA" /> <code codeSystem="local" code="APO2" displayName= "Arterial PO2" /> <statusCode code="completed" /> < effectiveTime value="886417317332" /> <value unit="mmHg" xsi:type="PQ" value="63" /> <interpretationCode codeSystem="local" code="*" /> <referenceRange> <observationRange> <text>80-100</ text> </observationRange> </referenceRange> </ observation> </component> <component> <observation moodCode= "EVN" classCode="OBS"> <templateId root="10.29.840.1.043833.10..22.4.2 " /> <id nullFlavor="NA" /> <code codeSystem="local" code= "AFLOW" displayName="Arterial LPM" /> <statusCode code="completed" /> <effectiveTime value="774289898212" /> <value unit="L/min" xsi :type="PQ" value="3.0" /> <referenceRange> <observationRange > <text /> </observationRange> </referenceRange > </observation> </component> <component> <observation moodCode="EVN" classCode="OBS"> <templateId root= "840.1.505293.07.02.22.4.2" /> <id nullFlavor="NA" /> < code codeSystem="local" code="AO2PN" displayName="O2 Panel" /> < statusCode code="completed" /> <effectiveTime value="717899191094" /> <value unit="" xsi:type="PQ" value="nc" /> <referenceRange> <observationRange> <text /> </observationRange > </referenceRange> </observation> </component> < component> <observation moodCode="EVN" classCode="OBS"> < templateId root="840.1.922401.07.02.22.4.2" /> <id nullFlavor="NA " /> <code codeSystem="local" code="ASITE" displayName="Spec Site" /> <statusCode code="completed" /> <effectiveTime value= "246591776735" /> <value unit="" xsi:type="PQ" value="A. radialis l." / > <referenceRange> <observationRange> <text /> </observationRange> </referenceRange> </observation > </component> </organizer> </entry> <entry> <organizer moodCode= "EVN" classCode="BATTERY"> <templateId root="840.1.070686.07.02.22.4.1 " /> <id nullFlavor="NA" /> <code codeSystem="local" code="UA" displayName="Urinalysis with reflex microscopic" /> <statusCode code= "completed" /> <component> <observation moodCode="EVN" classCode= "OBS"> <templateId root="840.1.834925.10..22.4.2" /> < id nullFlavor="NA" /> <code codeSystem="local" code="UAPP" displayName= "Appearance" /> <statusCode code="completed" /> < effectiveTime value="026529954177" /> <value unit="NA" xsi:type="PQ" value="Clear" /> <referenceRange> <observationRange> <text /> </observationRange> </referenceRange> </observation> </component> <component> <observation moodCode ="EVN" classCode="OBS"> <templateId root= "216.840.1.381155.07.02.22.4.2" /> <id nullFlavor="NA" /> < code codeSystem="local" code="UBIL" displayName="Bilirubin" /> < statusCode code="completed" /> <effectiveTime value="" /> <value unit="NA" xsi:type="PQ" value="Negative" /> < referenceRange> <observationRange> <text>Negative</text > </observationRange> </referenceRange> </observation > </component> <component> <observation moodCode="EVN" classCode="OBS"> <templateId root="216.840.1.592838...4.2" /> <id nullFlavor="NA" /> <code codeSystem="local" code="UBLD" displayName="Blood" /> <statusCode code="completed" /> < effectiveTime value="967617454545" /> <value unit="NA" xsi:type="PQ" value="Negative" /> <referenceRange> <observationRange> <text>Negative</text> </observationRange> </ referenceRange> </observation> </component> <component> <observation moodCode="EVN" classCode="OBS"> <templateId root= "216.840.1.235994.10.4.2" /> <id nullFlavor="NA" /> < code codeSystem="local" code="UCOLR" displayName="Color" /> < statusCode code="completed" /> <effectiveTime value="949415118539" /> <value unit="NA" xsi:type="PQ" value="Yellow" /> < referenceRange> <observationRange> <text /> < /observationRange> </referenceRange> </observation> </ component> <component> <observation moodCode="EVN" classCode="OBS"> <templateId root="16.840.1.345630.07.02.22.4.2" /> <id nullFlavor="NA" /> <code codeSystem="local" code="UGLU" displayName= "Glucose, Urine" /> <statusCode code="completed" /> < effectiveTime value="007440828100" /> <value unit="" xsi:type="PQ" value="Negative" /> <referenceRange> <observationRange> <text>Negative</text> </observationRange> </ referenceRange> </observation> </component> <component> <observation moodCode="EVN" classCode="OBS"> <templateId root= "16.840.1.442282.07.02.22.4.2" /> <id nullFlavor="NA" /> < code codeSystem="local" code="UKET" displayName="Ketones" /> < statusCode code="completed" /> <effectiveTime value="869306906589" /> <value unit="" xsi:type="PQ" value="Negative" /> < referenceRange> <observationRange> <text>Negative</text > </observationRange> </referenceRange> </observation > </component> <component> <observation moodCode="EVN" classCode="OBS"> <templateId root="216.840.1.800126.10.22.4.2" /> <id nullFlavor="NA" /> <code codeSystem="local" code="ULEU" displayName="Leukocyte Esterase" /> <statusCode code="completed" /> <effectiveTime value="350642607911" /> <value unit="NA" xsi:type ="PQ" value="Negative" /> <referenceRange> <observationRange > <text>Negative</text> </observationRange> </ referenceRange> </observation> </component> <component> <observation moodCode="EVN" classCode="OBS"> <templateId root= "16.840.1.116573.22.4.2" /> <id nullFlavor="NA" /> < code codeSystem="local" code="UNIT" displayName="Nitrites" /> < statusCode code="completed" /> <effectiveTime value="175465956554" /> <value unit="NA" xsi:type="PQ" value="Negative" /> < referenceRange> <observationRange> <text>Negative</text > </observationRange> </referenceRange> </observation > </component> <component> <observation moodCode="EVN" classCode="OBS"> <templateId root="16.840.1.393951.1022.4.2" /> <id nullFlavor="NA" /> <code codeSystem="local" code="UPH" displayName="pH" /> <statusCode code="completed" /> < effectiveTime value="001436232585" /> <value unit="NA" xsi:type="PQ" value="5.0" /> <referenceRange> <observationRange> <text>5.0-8.0</text> </observationRange> </ referenceRange> </observation> </component> <component> <observation moodCode="EVN" classCode="OBS"> <templateId root= "16.840.1.564570.10.4.2" /> <id nullFlavor="NA" /> < code codeSystem="local" code="UPRO" displayName="Protein" /> < statusCode code="completed" /> <effectiveTime value="947163113696" /> <value unit="NA" xsi:type="PQ" value="Negative" /> < referenceRange> <observationRange> <text>Negative</text > </observationRange> </referenceRange> </observation > </component> <component> <observation moodCode="EVN" classCode="OBS"> <templateId root="16.840.1.703632.07.02.22.4.2" /> <id nullFlavor="NA" /> <code codeSystem="local" code="USPG" displayName="Specific [place]" /> <statusCode code="completed" /> <effectiveTime value="692860006023" /> <value unit="NA" xsi:type= "PQ" value="1.010" /> <referenceRange> <observationRange> <text>1.003-1.030</text> </observationRange> </ referenceRange> </observation> </component> <component> <observation moodCode="EVN" classCode="OBS"> <templateId root= "10.29.840.1.945114.10.22.4.2" /> <id nullFlavor="NA" /> < code codeSystem="local" code="UTYP" displayName="UA Collection type" /> <statusCode code="completed" /> <effectiveTime value="037552049513" / > <value unit="NA" xsi:type="PQ" value="Webb" /> < referenceRange> <observationRange> <text /> < /observationRange> </referenceRange> </observation> </ component> <component> <observation moodCode="EVN" classCode="OBS"> <templateId root="216.840.1.350683.10.20.22.4.2" /> <id nullFlavor="NA" /> <code codeSystem="local" code="UURO" displayName= "Urobilinogen" /> <statusCode code="completed" /> < effectiveTime value="375861673861" /> <value unit="mg/dL" xsi:type="PQ " value="Negative" /> <referenceRange> <observationRange> <text><1.0</text> </observationRange> </ referenceRange> </observation> </component> </organizer> </entry > <entry> <organizer moodCode="EVN" classCode="BATTERY"> <templateId root="2.16.840.1.728100.10..22.4.1" /> <id nullFlavor="NA" /> <code codeSystem="local" code="UOSMO" displayName="Osmolality, Urine" /> < statusCode code="completed" /> <component> <observation moodCode= "EVN" classCode="OBS"> <templateId root="216.840.1.700385.10..22.4.2 " /> <id nullFlavor="NA" /> <code codeSystem="local" code= "UOSMO" displayName="Osmolality, Urine" /> <statusCode code="completed " /> <effectiveTime value="759650144762" /> <value unit="mOsm/ kg" xsi:type="PQ" value="431" /> <referenceRange> < observationRange> <text>38-1400</text> </ observationRange> </referenceRange> </observation> </ component> </organizer> </entry> <entry> <organizer moodCode="EVN" classCode="BATTERY"> <templateId root="216.840.1.234898.10..4.1" /> <id nullFlavor="NA" /> <code codeSystem="local" code="UDRGH" displayName="Urine Drug Screen" /> <statusCode code="completed" /> < component> <observation moodCode="EVN" classCode="OBS"> < templateId root="216.840.1.271843.10..4.2" /> <id nullFlavor="NA " /> <code codeSystem="local" code="UAMP1" displayName="Amph/Meth/ Ecstasy" /> <statusCode code="completed" /> <effectiveTime value="654745371263" /> <value unit="NA" xsi:type="PQ" value="Negative " /> <referenceRange> <observationRange> <text /> </observationRange> </referenceRange> </ observation> </component> <component> <observation moodCode= "EVN" classCode="OBS"> <templateId root="216.840.1.836053.07.02.22.4.2 " /> <id nullFlavor="NA" /> <code codeSystem="local" code= "UBAR1" displayName="Barbiturates" /> <statusCode code="completed" /> <effectiveTime value="576631102078" /> <value unit="NA" xsi: type="PQ" value="Negative" /> <referenceRange> < observationRange> <text /> </observationRange> </referenceRange> </observation> </component> <component> <observation moodCode="EVN" classCode="OBS"> <templateId root= "216.840.1.017926.07.02.22.4.2" /> <id nullFlavor="NA" /> < code codeSystem="local" code="UBEN1" displayName="Benzodiazepine" /> < statusCode code="completed" /> <effectiveTime value="190556329578" /> <value unit="NA" xsi:type="PQ" value="Negative" /> < referenceRange> <observationRange> <text /> < /observationRange> </referenceRange> </observation> </ component> <component> <observation moodCode="EVN" classCode="OBS"> <templateId root="16.840.1.100715.07.02.22.4.2" /> <id nullFlavor="NA" /> <code codeSystem="local" code="UCAN1" displayName= "Cannabinoid" /> <statusCode code="completed" /> < effectiveTime value="101225422882" /> <value unit="NA" xsi:type="PQ" value="Negative" /> <referenceRange> <observationRange> <text /> </observationRange> </referenceRange> </observation> </component> <component> <observation moodCode="EVN" classCode="OBS"> <templateId root= "16.840.1.813475.07.02.22.4.2" /> <id nullFlavor="NA" /> < code codeSystem="local" code="UCOC1" displayName="Cocaine" /> < statusCode code="completed" /> <effectiveTime value="325776250187" /> <value unit="NA" xsi:type="PQ" value="Negative" /> < referenceRange> <observationRange> <text /> < /observationRange> </referenceRange> </observation> </ component> <component> <observation moodCode="EVN" classCode="OBS"> <templateId root="10.29.840.1.428509.22.4.2" /> <id nullFlavor="NA" /> <code codeSystem="local" code="UMTD1" displayName= "EDDP (Methadone met.)" /> <statusCode code="completed" /> < effectiveTime value="979983842038" /> <value unit="NA" xsi:type="PQ" value="Negative" /> <referenceRange> <observationRange> <text /> </observationRange> </referenceRange> </observation> </component> <component> <observation moodCode="EVN" classCode="OBS"> <templateId root= "216.840.1.055252.10..4.2" /> <id nullFlavor="NA" /> < code codeSystem="local" code="UOPI1" displayName="Opiate" /> < statusCode code="completed" /> <effectiveTime value="728755306818" /> <value unit="NA" xsi:type="PQ" value="Negative" /> < referenceRange> <observationRange> <text /> < /observationRange> </referenceRange> </observation> </ component> <component> <observation moodCode="EVN" classCode="OBS"> <templateId root="2.16.840.1.446811.10..22.4.2" /> <id nullFlavor="NA" /> <code codeSystem="local" code="UPCP1" displayName= "Phencyclidine (PCP)" /> <statusCode code="completed" /> < effectiveTime value="731865268917" /> <value unit="NA" xsi:type="PQ" value="Negative" /> <referenceRange> <observationRange> <text /> </observationRange> </referenceRange> </observation> </component> </organizer> </entry> <entry> < organizer moodCode="EVN" classCode="BATTERY"> <templateId root= "16.840.1.576535.10..4.1" /> <id nullFlavor="NA" /> <code codeSystem="local" code="UNAR" displayName="Sodium Random Urine" /> < statusCode code="completed" /> <component> <observation moodCode= "EVN" classCode="OBS"> <templateId root="840.1.550616.07.02.22.4.2 " /> <id nullFlavor="NA" /> <code codeSystem="local" code= "UNAR" displayName="Sodium Random Urine" /> <statusCode code="completed " /> <effectiveTime value="694882829501" /> <value unit="mEq/L " xsi:type="PQ" value="71" /> <referenceRange> < observationRange> <text /> </observationRange> </referenceRange> </observation> </component> </organizer> </ entry> <entry> <organizer moodCode="EVN" classCode="BATTERY"> < templateId root="840.1.389906.07.02.22.4.1" /> <id nullFlavor="NA" /> <code codeSystem="local" code="UCRER" displayName="Creatinine Random Urine " /> <statusCode code="completed" /> <component> <observation moodCode="EVN" classCode="OBS"> <templateId root= "10.29.840.1.124541.10..4.2" /> <id nullFlavor="NA" /> < code codeSystem="local" code="UCRER" displayName="Creatinine Random Urine" /> <statusCode code="completed" /> <effectiveTime value= "692796379884" /> <value unit="mg/dL" xsi:type="PQ" value="40" /> <referenceRange> <observationRange> <text /> </observationRange> </referenceRange> </observation> </component> </organizer> </entry> <entry> <organizer moodCode="EVN" classCode="BATTERY"> <templateId root="10.29.840.1.737697.10.22.4.1" /> <id nullFlavor="NA" /> <code codeSystem="local" code="UUNR" displayName="Urea Nitrogen Random " /> <statusCode code="completed" /> <component> <observation moodCode="EVN" classCode="OBS"> < templateId root="840.1.487266.07.02.22.4.2" /> <id nullFlavor="NA " /> <code codeSystem="local" code="UUNR" displayName="Urea Nitrogen Random" /> <statusCode code="completed" /> <effectiveTime value="520176937882" /> <value unit="mg/dL" xsi:type="PQ" value="615" / > <referenceRange> <observationRange> <text /> </observationRange> </referenceRange> </observation > </component> </organizer> </entry> <entry> <organizer moodCode= "EVN" classCode="BATTERY"> <templateId root="840.1.821384.1022.4.1 " /> <id nullFlavor="NA" /> <code codeSystem="local" code="ZH089" displayName="Histoplasma Ag, U" /> <statusCode code="completed" /> < component> <observation moodCode="EVN" classCode="OBS"> < templateId root="840.1.993676.10.22.4.2" /> <id nullFlavor="NA " /> <code codeSystem="local" code="Z6514" displayName="Histoplasma Ag , U" /> <statusCode code="completed" /> <effectiveTime value= "725119248755" /> <value unit="NA" xsi:type="PQ" value="Negative" /> <referenceRange> <observationRange> <text> Negative</text> </observationRange> </referenceRange> </observation> </component> <component> <observation moodCode ="EVN" classCode="OBS"> <templateId root= "840.1.865017.10.22.4.2" /> <id nullFlavor="NA" /> < code codeSystem="local" code="Z6515" displayName="Histoplasma Ag, U Value" /> <statusCode code="completed" /> <effectiveTime value= "421655363420" /> <value unit="ng/mL" xsi:type="PQ" value="0.00" /> <referenceRange> <observationRange> <text /> </observationRange> </referenceRange> </observation> </component> </organizer> </entry> <entry> <organizer moodCode="EVN" classCode="BATTERY"> <templateId root="840.1.382667.10..22.4.1" /> <id nullFlavor="NA" /> <code codeSystem="local" code="CMP" displayName ="Comprehensive Metabolic Panel (CMP)" /> <statusCode code="completed" /> <component> <observation moodCode="EVN" classCode="OBS"> < templateId root="840.1.744167.22.4.2" /> <id nullFlavor="NA " /> <code codeSystem="local" code="ALB" displayName="Albumin" /> <statusCode code="completed" /> <effectiveTime value="181296702563 " /> <value unit="g/dL" xsi:type="PQ" value="3.7" /> < referenceRange> <observationRange> <text>3.5-4.8</text> </observationRange> </referenceRange> </observation > </component> <component> <observation moodCode="EVN" classCode="OBS"> <templateId root="216.840.1.119014.10..22.4.2" /> <id nullFlavor="NA" /> <code codeSystem="local" code="ALP" displayName="Alkaline Phosphatase" /> <statusCode code="completed" /> <effectiveTime value="780269677188" /> <value unit="U/L" xsi: type="PQ" value="101" /> <referenceRange> <observationRange > <text>26-104</text> </observationRange> </ referenceRange> </observation> </component> <component> <observation moodCode="EVN" classCode="OBS"> <templateId root= "10.29.840.1.430016.10...4.2" /> <id nullFlavor="NA" /> < code codeSystem="local" code="ALT" displayName="ALT (SGPT)" /> < statusCode code="completed" /> <effectiveTime value="115702572043" /> <value unit="U/L" xsi:type="PQ" value="93" /> < interpretationCode codeSystem="local" code="*" /> <referenceRange> <observationRange> <text>17-63</text> </ observationRange> </referenceRange> </observation> </ component> <component> <observation moodCode="EVN" classCode="OBS"> <templateId root="216.840.1.891241.10..22.4.2" /> <id nullFlavor="NA" /> <code codeSystem="local" code="AGAP" displayName= "Anion Gap" /> <statusCode code="completed" /> <effectiveTime value="922988189247" /> <value unit="mEq/L" xsi:type="PQ" value="9" /> <referenceRange> <observationRange> <text>3-20 </text> </observationRange> </referenceRange> </ observation> </component> <component> <observation moodCode= "EVN" classCode="OBS"> <templateId root="2.16.840.1.904214.10..22.4.2 " /> <id nullFlavor="NA" /> <code codeSystem="local" code="AST " displayName="AST (SGOT)" /> <statusCode code="completed" /> <effectiveTime value="268476356124" /> <value unit="U/L" xsi:type="PQ" value="77" /> <interpretationCode codeSystem="local" code="*" /> <referenceRange> <observationRange> <text>15-41</ text> </observationRange> </referenceRange> </ observation> </component> <component> <observation moodCode= "EVN" classCode="OBS"> <templateId root="216.840.1.746830.10..22.4.2 " /> <id nullFlavor="NA" /> <code codeSystem="local" code= "BILIT" displayName="Bilirubin Total" /> <statusCode code="completed" / > <effectiveTime value="126758181141" /> <value unit="mg/dL" xsi:type="PQ" value="0.7" /> <referenceRange> < observationRange> <text>0.2-1.2</text> </ observationRange> </referenceRange> </observation> </ component> <component> <observation moodCode="EVN" classCode="OBS"> <templateId root="216.840.1.349711.10..22.4.2" /> <id nullFlavor="NA" /> <code codeSystem="local" code="BUN" displayName="BUN " /> <statusCode code="completed" /> <effectiveTime value= "" /> <value unit="mg/dL" xsi:type="PQ" value="38" /> <interpretationCode codeSystem="local" code="*" /> <referenceRange > <observationRange> <text>4-20</text> </ observationRange> </referenceRange> </observation> </ component> <component> <observation moodCode="EVN" classCode="OBS"> <templateId root="10.29.840.1.628509.07.02.22.4.2" /> <id nullFlavor="NA" /> <code codeSystem="local" code="CA" displayName= "Calcium" /> <statusCode code="completed" /> <effectiveTime value="" /> <value unit="mg/dL" xsi:type="PQ" value="9.0" / > <referenceRange> <observationRange> <text>8.6 -10.0</text> </observationRange> </referenceRange> </ observation> </component> <component> <observation moodCode= "EVN" classCode="OBS"> <templateId root="16.840.1.673712.10..22.4.2 " /> <id nullFlavor="NA" /> <code codeSystem="local" code="CL " displayName="Chloride" /> <statusCode code="completed" /> < effectiveTime value="" /> <value unit="mEq/L" xsi:type="PQ " value="96" /> <interpretationCode codeSystem="local" code="*" /> <referenceRange> <observationRange> <text>99-109</ text> </observationRange> </referenceRange> </ observation> </component> <component> <observation moodCode= "EVN" classCode="OBS"> <templateId root="16.840.1.223599.10.20.22.4.2 " /> <id nullFlavor="NA" /> <code codeSystem="local" code="CO2 " displayName="CO2" /> <statusCode code="completed" /> < effectiveTime value="786334726482" /> <value unit="mEq/L" xsi:type="PQ " value="25" /> <referenceRange> <observationRange> <text>22-32</text> </observationRange> </ referenceRange> </observation> </component> <component> <observation moodCode="EVN" classCode="OBS"> <templateId root= "840.1.471746.10...4.2" /> <id nullFlavor="NA" /> < code codeSystem="local" code="CREAT" displayName="Creatinine" /> < statusCode code="completed" /> <effectiveTime value="495586636764" /> <value unit="mg/dL" xsi:type="PQ" value="1.30" /> < interpretationCode codeSystem="local" code="*" /> <referenceRange> <observationRange> <text>0.64-1.27</text> </ observationRange> </referenceRange> </observation> </ component> <component> <observation moodCode="EVN" classCode="OBS"> <templateId root="10.29.840.1.378681.10.20.22.4.2" /> <id nullFlavor="NA" /> <code codeSystem="local" code="GLOB" displayName= "Globulin" /> <statusCode code="completed" /> <effectiveTime value="276504358474" /> <value unit="g/dL" xsi:type="PQ" value="3.5" / > <referenceRange> <observationRange> <text>1.9 -4.3</text> </observationRange> </referenceRange> </ observation> </component> <component> <observation moodCode= "EVN" classCode="OBS"> <templateId root="16.840.1.588921.10.20.22.4.2 " /> <id nullFlavor="NA" /> <code codeSystem="local" code="GLU " displayName="Glucose" /> <statusCode code="completed" /> < effectiveTime value="679771629079" /> <value unit="mg/dL" xsi:type="PQ " value="135" /> <interpretationCode codeSystem="local" code="*" /> <referenceRange> <observationRange> <text>70-100< /text> </observationRange> </referenceRange> </ observation> </component> <component> <observation moodCode= "EVN" classCode="OBS"> <templateId root="16.840.1.312147.10.20.22.4.2 " /> <id nullFlavor="NA" /> <code codeSystem="local" code="K" displayName="Potassium" /> <statusCode code="completed" /> < effectiveTime value="597729376859" /> <value unit="mEq/L" xsi:type="PQ " value="4.8" /> <referenceRange> <observationRange> <text>3.6-5.1</text> </observationRange> </ referenceRange> </observation> </component> <component> <observation moodCode="EVN" classCode="OBS"> <templateId root= "10.29.840.1.272251.10.4.2" /> <id nullFlavor="NA" /> < code codeSystem="local" code="TP" displayName="Protein" /> <statusCode code="completed" /> <effectiveTime value="986436153259" /> < value unit="g/dL" xsi:type="PQ" value="7.2" /> <referenceRange> <observationRange> <text>6.1-7.9</text> </ observationRange> </referenceRange> </observation> </ component> <component> <observation moodCode="EVN" classCode="OBS"> <templateId root="840.1.707001.07.02.22.4.2" /> <id nullFlavor="NA" /> <code codeSystem="local" code="NA" displayName= "Sodium" /> <statusCode code="completed" /> <effectiveTime value="724314845928" /> <value unit="mEq/L" xsi:type="PQ" value="130" / > <interpretationCode codeSystem="local" code="*" /> < referenceRange> <observationRange> <text>136-144</text> </observationRange> </referenceRange> </observation > </component> </organizer> </entry> <entry> <organizer moodCode= "EVN" classCode="BATTERY"> <templateId root="840.1.728241.10.4.1 " /> <id nullFlavor="NA" /> <code codeSystem="local" code="PHOS" displayName="Phosphorus" /> <statusCode code="completed" /> <component > <observation moodCode="EVN" classCode="OBS"> <templateId root= "840.1.143271.07.02.22.4.2" /> <id nullFlavor="NA" /> < code codeSystem="local" code="PHOS" displayName="Phosphorus" /> < statusCode code="completed" /> <effectiveTime value="467858832997" /> <value unit="mg/dL" xsi:type="PQ" value="5.9" /> < interpretationCode codeSystem="local" code="*" /> <referenceRange> <observationRange> <text>2.4-4.7</text> </ observationRange> </referenceRange> </observation> </ component> </organizer> </entry> <entry> <organizer moodCode="EVN" classCode="BATTERY"> <templateId root="216.840.1.742995.07.02.22.4.1" /> <id nullFlavor="NA" /> <code codeSystem="local" code="MG" displayName= "Magnesium" /> <statusCode code="completed" /> <component> < observation moodCode="EVN" classCode="OBS"> <templateId root= "16.840.1.244016.07.02.22.4.2" /> <id nullFlavor="NA" /> < code codeSystem="local" code="MG" displayName="Magnesium" /> < statusCode code="completed" /> <effectiveTime value="413370296022" /> <value unit="mg/dL" xsi:type="PQ" value="1.8" /> < referenceRange> <observationRange> <text>1.8-2.5</text> </observationRange> </referenceRange> </observation > </component> </organizer> </entry> <entry> <organizer moodCode= "EVN" classCode="BATTERY"> <templateId root="216.840.1.626919.07.02.22.4.1 " /> <id nullFlavor="NA" /> <code codeSystem="local" code="LDH" displayName="LDH" /> <statusCode code="completed" /> <component> <observation moodCode="EVN" classCode="OBS"> <templateId root= "16.840.1.254071.07.02.22.4.2" /> <id nullFlavor="NA" /> < code codeSystem="local" code="LDH" displayName="LDH" /> <statusCode code="completed" /> <effectiveTime value="750938969716" /> < value unit="U/L" xsi:type="PQ" value="144" /> <referenceRange> <observationRange> <text>98-192</text> </ observationRange> </referenceRange> </observation> </ component> </organizer> </entry> <entry> <organizer moodCode="EVN" classCode="BATTERY"> <templateId root="10.29.840.1.965931.07.02.22.4.1" /> <id nullFlavor="NA" /> <code codeSystem="local" code="ACETM" displayName="Acetaminophen" /> <statusCode code="completed" /> < component> <observation moodCode="EVN" classCode="OBS"> < templateId root="10.29.840.1.537832.07.02.22.4.2" /> <id nullFlavor="NA " /> <code codeSystem="local" code="ACETM" displayName="Acetaminophen" /> <statusCode code="completed" /> <effectiveTime value= "509004723882" /> <value unit="mcg/mL" xsi:type="PQ" value="<10" /> <referenceRange> <observationRange> <text>10- 30</text> </observationRange> </referenceRange> </ observation> </component> </organizer> </entry> <entry> <organizer moodCode="EVN" classCode="BATTERY"> <templateId root= "10.29.840.1.624437.07.02.22.4.1" /> <id nullFlavor="NA" /> <code codeSystem="local" code="GFR" displayName="eGFR" /> <statusCode code= "completed" /> <component> <observation moodCode="EVN" classCode= "OBS"> <templateId root="840.1.022269.07.02.224.2" /> < id nullFlavor="NA" /> <code codeSystem="local" code="GFR" displayName= "eGFR" /> <statusCode code="completed" /> <effectiveTime value ="995273964468" /> <value unit="mL/min" xsi:type="PQ" value="59" /> <interpretationCode codeSystem="local" code="*" /> < referenceRange> <observationRange> <text>>60</text> </observationRange> </referenceRange> </observation> </component> </organizer> </entry> <entry> <organizer moodCode= "EVN" classCode="BATTERY"> <templateId root="840.1.387418.07.02.224.1 " /> <id nullFlavor="NA" /> <code codeSystem="local" code="OSMO" displayName="Osmolality" /> <statusCode code="completed" /> <component > <observation moodCode="EVN" classCode="OBS"> <templateId root= "10.29.840.1.403855.07.02.22.4.2" /> <id nullFlavor="NA" /> < code codeSystem="local" code="OSMO" displayName="Osmolality" /> < statusCode code="completed" /> <effectiveTime value="327128236294" /> <value unit="mOsm/kg" xsi:type="PQ" value="291" /> < referenceRange> <observationRange> <text>275-300</text> </observationRange> </referenceRange> </observation > </component> </organizer> </entry> <entry> <organizer moodCode= "EVN" classCode="BATTERY"> <templateId root="216.840.1.547304.10..22.4.1 " /> <id nullFlavor="NA" /> <code codeSystem="local" code="CORTA" displayName="Cortisol AM" /> <statusCode code="completed" /> < component> <observation moodCode="EVN" classCode="OBS"> < templateId root="216.840.1.067341.10..22.4.2" /> <id nullFlavor="NA " /> <code codeSystem="local" code="CORTA" displayName="Cortisol AM" / > <statusCode code="completed" /> <effectiveTime value= "301077701883" /> <value unit="ug/dL" xsi:type="PQ" value="6" /> <interpretationCode codeSystem="local" code="*" /> <referenceRange > <observationRange> <text>7-18</text> </ observationRange> </referenceRange> </observation> </ component> </organizer> </entry> <entry> <organizer moodCode="EVN" classCode="BATTERY"> <templateId root="216.840.1.676695.10..22.4.1" /> <id nullFlavor="NA" /> <code codeSystem="local" code="TSH" displayName ="TSH" /> <statusCode code="completed" /> <component> < observation moodCode="EVN" classCode="OBS"> <templateId root= "16.840.1.036703.10..4.2" /> <id nullFlavor="NA" /> < code codeSystem="local" code="TSH" displayName="TSH" /> <statusCode code="completed" /> <effectiveTime value="124771668468" /> < value unit="uIU/mL" xsi:type="PQ" value="1.69" /> <referenceRange> <observationRange> <text>0.35-4.94</text> </ observationRange> </referenceRange> </observation> </ component> </organizer> </entry> <entry> <organizer moodCode="EVN" classCode="BATTERY"> <templateId root="216.840.1.660071.10..4.1" /> <id nullFlavor="NA" /> <code codeSystem="local" code="HEP4" displayName="Hepatitis Panel" /> <statusCode code="completed" /> < component> <observation moodCode="EVN" classCode="OBS"> < templateId root="216.840.1.901652.10..22.4.2" /> <id nullFlavor="NA " /> <code codeSystem="local" code="HAABM" displayName="Hepatitis A Antibody IGM" /> <statusCode code="completed" /> < effectiveTime value="555588822915" /> <value unit="" xsi:type="PQ" value="Negative" /> <referenceRange> <observationRange> <text /> </observationRange> </referenceRange> </observation> </component> <component> <observation moodCode="EVN" classCode="OBS"> <templateId root= "16.840.1.022880.07.02.22.4.2" /> <id nullFlavor="NA" /> < code codeSystem="local" code="HBSAG" displayName="Hepatitis B Surface Antigen" / > <statusCode code="completed" /> <effectiveTime value= "357923227309" /> <value unit="" xsi:type="PQ" value="Negative" /> <referenceRange> <observationRange> <text /> </observationRange> </referenceRange> </observation> </component> </organizer> </entry> <entry> <organizer moodCode="EVN" classCode="BATTERY"> <templateId root="216.840.1.431960.10..4.1" /> <id nullFlavor="NA" /> <code codeSystem="local" code="CBCWD" displayName="CBC With Platelet and Differential" /> <statusCode code= "completed" /> <component> <observation moodCode="EVN" classCode= "OBS"> <templateId root="216.840.1.012528.10..22.4.2" /> < id nullFlavor="NA" /> <code codeSystem="local" code="ABASR" displayName ="Absolute Basophils" /> <statusCode code="completed" /> < effectiveTime value="141224319995" /> <value unit="10*3/uL" xsi:type= "PQ" value="0.00" /> <referenceRange> <observationRange> <text>0.00-0.20</text> </observationRange> </ referenceRange> </observation> </component> <component> <observation moodCode="EVN" classCode="OBS"> <templateId root= "216.840.1.425210.10..22.4.2" /> <id nullFlavor="NA" /> < code codeSystem="local" code="AEOSR" displayName="Absolute Eosinophils" /> <statusCode code="completed" /> <effectiveTime value="156804158779 " /> <value unit="10*3/uL" xsi:type="PQ" value="0.00" /> < referenceRange> <observationRange> <text>0.00-0.50</text > </observationRange> </referenceRange> </observation > </component> <component> <observation moodCode="EVN" classCode="OBS"> <templateId root="216.840.1.514688.10.20.22.4.2" /> <id nullFlavor="NA" /> <code codeSystem="local" code="ALYMR" displayName="Absolute Lymphocytes" /> <statusCode code="completed" /> <effectiveTime value="209611043686" /> <value unit="10*3/uL" xsi:type="PQ" value="0.86" /> <referenceRange> < observationRange> <text>0.80-3.30</text> </ observationRange> </referenceRange> </observation> </ component> <component> <observation moodCode="EVN" classCode="OBS"> <templateId root="2.840.1.195562.10.20.22.4.2" /> <id nullFlavor="NA" /> <code codeSystem="local" code="AMONR" displayName= "Absolute Monocytes" /> <statusCode code="completed" /> < effectiveTime value="776461868986" /> <value unit="10*3/uL" xsi:type= "PQ" value="0.53" /> <referenceRange> <observationRange> <text>0.30-1.00</text> </observationRange> </ referenceRange> </observation> </component> <component> <observation moodCode="EVN" classCode="OBS"> <templateId root= "2.16.840.1.509236.10.20.22.4.2" /> <id nullFlavor="NA" /> < code codeSystem="local" code="ASEGR" displayName="Absolute Neutrophils" /> <statusCode code="completed" /> <effectiveTime value="694720060005 " /> <value unit="10*3/uL" xsi:type="PQ" value="7.71" /> < interpretationCode codeSystem="local" code="*" /> <referenceRange> <observationRange> <text>1.90-7.00</text> </ observationRange> </referenceRange> </observation> </ component> <component> <observation moodCode="EVN" classCode="OBS"> <templateId root="16.840.1.713362.1022.4.2" /> <id nullFlavor="NA" /> <code codeSystem="local" code="BASOR" displayName= "Basophils" /> <statusCode code="completed" /> <effectiveTime value="" /> <value unit="%" xsi:type="PQ" value="0" /> <referenceRange> <observationRange> <text>0-2< /text> </observationRange> </referenceRange> </ observation> </component> <component> <observation moodCode= "EVN" classCode="OBS"> <templateId root="16.840.1.577648.10.20.22.4.2 " /> <id nullFlavor="NA" /> <code codeSystem="local" code= "EOSR" displayName="Eosinophils" /> <statusCode code="completed" /> <effectiveTime value="047966778177" /> <value unit="%" xsi: type="PQ" value="0" /> <referenceRange> <observationRange> <text>0-4</text> </observationRange> </ referenceRange> </observation> </component> <component> <observation moodCode="EVN" classCode="OBS"> <templateId root= "10.29.840.1.118948.10.20.22.4.2" /> <id nullFlavor="NA" /> < code codeSystem="local" code="HCT" displayName="HCT" /> <statusCode code="completed" /> <effectiveTime value="567802894956" /> < value unit="%" xsi:type="PQ" value="39.8" /> <interpretationCode codeSystem="local" code="*" /> <referenceRange> < observationRange> <text>42.0-52.0</text> </ observationRange> </referenceRange> </observation> </ component> <component> <observation moodCode="EVN" classCode="OBS"> <templateId root="10.29.840.1.011108.10.22.4.2" /> <id nullFlavor="NA" /> <code codeSystem="local" code="HGB" displayName="HGB " /> <statusCode code="completed" /> <effectiveTime value= "091224213300" /> <value unit="g/dL" xsi:type="PQ" value="13.8" /> <interpretationCode codeSystem="local" code="*" /> < referenceRange> <observationRange> <text>14.0-18.0</text > </observationRange> </referenceRange> </observation > </component> <component> <observation moodCode="EVN" classCode="OBS"> <templateId root="10.29.840.1.902080.10.20.22.4.2" /> <id nullFlavor="NA" /> <code codeSystem="local" code="IMGA" displayName="Immature Granulocytes" /> <statusCode code="completed" /> <effectiveTime value="690245823374" /> <value unit="%" xsi:type="PQ" value="0.5" /> <referenceRange> < observationRange> <text>0.0-1.0</text> </ observationRange> </referenceRange> </observation> </ component> <component> <observation moodCode="EVN" classCode="OBS"> <templateId root="216.840.1.205335.10.20.22.4.2" /> <id nullFlavor="NA" /> <code codeSystem="local" code="LYMPR" displayName= "Lymphocytes" /> <statusCode code="completed" /> < effectiveTime value="086630736638" /> <value unit="%" xsi:type="PQ " value="9" /> <interpretationCode codeSystem="local" code="*" /> <referenceRange> <observationRange> <text>20-46</ text> </observationRange> </referenceRange> </ observation> </component> <component> <observation moodCode= "EVN" classCode="OBS"> <templateId root="216.840.1.459858.10.20.22.4.2 " /> <id nullFlavor="NA" /> <code codeSystem="local" code="MCH " displayName="MCH" /> <statusCode code="completed" /> < effectiveTime value="870885421468" /> <value unit="pg" xsi:type="PQ" value="30.7" /> <referenceRange> <observationRange> <text>27.0-32.0</text> </observationRange> </ referenceRange> </observation> </component> <component> <observation moodCode="EVN" classCode="OBS"> <templateId root= "16.840.1.188445.10.2022.4.2" /> <id nullFlavor="NA" /> < code codeSystem="local" code="MCHC" displayName="MCHC" /> <statusCode code="completed" /> <effectiveTime value="590178906760" /> < value unit="g/dL" xsi:type="PQ" value="34.7" /> <referenceRange> <observationRange> <text>32.0-36.0</text> </ observationRange> </referenceRange> </observation> </ component> <component> <observation moodCode="EVN" classCode="OBS"> <templateId root="10.29.840.1.495183.22.4.2" /> <id nullFlavor="NA" /> <code codeSystem="local" code="MCV" displayName="MCV " /> <statusCode code="completed" /> <effectiveTime value= "080974436395" /> <value unit="fL" xsi:type="PQ" value="88.4" /> <referenceRange> <observationRange> <text>82.0-99.0< /text> </observationRange> </referenceRange> </ observation> </component> <component> <observation moodCode= "EVN" classCode="OBS"> <templateId root="10.29.840.1.200187.10.2022.4.2 " /> <id nullFlavor="NA" /> <code codeSystem="local" code= "MONOR" displayName="Monocytes" /> <statusCode code="completed" /> <effectiveTime value="468064469416" /> <value unit="%" xsi: type="PQ" value="6" /> <referenceRange> <observationRange> <text>4-11</text> </observationRange> </ referenceRange> </observation> </component> <component> <observation moodCode="EVN" classCode="OBS"> <templateId root= "216.840.1.380540.07.02.22.4.2" /> <id nullFlavor="NA" /> < code codeSystem="local" code="MPV" displayName="MPV" /> <statusCode code="completed" /> <effectiveTime value="" /> < value unit="fL" xsi:type="PQ" value="11.1" /> <referenceRange> <observationRange> <text>9.4-12.3</text> </ observationRange> </referenceRange> </observation> </ component> <component> <observation moodCode="EVN" classCode="OBS"> <templateId root="10.29.840.1.884663.07.02.224.2" /> <id nullFlavor="NA" /> <code codeSystem="local" code="SEGR" displayName= "Neutrophils" /> <statusCode code="completed" /> < effectiveTime value="" /> <value unit="%" xsi:type="PQ " value="84" /> <interpretationCode codeSystem="local" code="*" /> <referenceRange> <observationRange> <text>51-75</ text> </observationRange> </referenceRange> </ observation> </component> <component> <observation moodCode= "EVN" classCode="OBS"> <templateId root="10.29.840.1.153500.07.02.22.4.2 " /> <id nullFlavor="NA" /> <code codeSystem="local" code= "NRBCA" displayName="Nucleated RBC Automated" /> <statusCode code= "completed" /> <effectiveTime value="525986787294" /> <value unit="/100WBC" xsi:type="PQ" value="0.0" /> <referenceRange> <observationRange> <text /> </observationRange> </referenceRange> </observation> </component> <component> <observation moodCode="EVN" classCode="OBS"> <templateId root= "10.29.840.1.972038.10.20.22.4.2" /> <id nullFlavor="NA" /> < code codeSystem="local" code="PLT" displayName="Platelet Count" /> < statusCode code="completed" /> <effectiveTime value="424891913559" /> <value unit="K/uL" xsi:type="PQ" value="199" /> < referenceRange> <observationRange> <text>150-400</text> </observationRange> </referenceRange> </observation > </component> <component> <observation moodCode="EVN" classCode="OBS"> <templateId root="10.29.840.1.932137.10..22.4.2" /> <id nullFlavor="NA" /> <code codeSystem="local" code="RBC" displayName="RBC" /> <statusCode code="completed" /> < effectiveTime value="478283243687" /> <value unit="10*6/uL" xsi:type= "PQ" value="4.50" /> <interpretationCode codeSystem="local" code="*" / > <referenceRange> <observationRange> <text> 4.60-6.20</text> </observationRange> </referenceRange> </observation> </component> <component> <observation moodCode="EVN" classCode="OBS"> <templateId root= "10.29.840.1.534590.10.20.22.4.2" /> <id nullFlavor="NA" /> < code codeSystem="local" code="RDW" displayName="RDW" /> <statusCode code="completed" /> <effectiveTime value="659465324918" /> < value unit="%" xsi:type="PQ" value="13.3" /> <referenceRange> <observationRange> <text>11.5-14.5</text> </ observationRange> </referenceRange> </observation> </ component> <component> <observation moodCode="EVN" classCode="OBS"> <templateId root="840.1.231780.07.02.22.4.2" /> <id nullFlavor="NA" /> <code codeSystem="local" code="WBCIR" displayName= "WBC" /> <statusCode code="completed" /> <effectiveTime value= "864183420368" /> <value unit="K/uL" xsi:type="PQ" value="9.2" /> <referenceRange> <observationRange> <text>4.8-10.8< /text> </observationRange> </referenceRange> </ observation> </component> </organizer> </entry> <entry> <organizer moodCode="EVN" classCode="BATTERY"> <templateId root= "10.29.840.1.523349.07.02.22.4.1" /> <id nullFlavor="NA" /> <code codeSystem="local" code="PHOS" displayName="Phosphorus" /> <statusCode code ="completed" /> <component> <observation moodCode="EVN" classCode= "OBS"> <templateId root="10.29.840.1.212589.22.4.2" /> < id nullFlavor="NA" /> <code codeSystem="local" code="PHOS" displayName= "Phosphorus" /> <statusCode code="completed" /> < effectiveTime value="432291056521" /> <value unit="mg/dL" xsi:type="PQ " value="5.2" /> <interpretationCode codeSystem="local" code="*" /> <referenceRange> <observationRange> <text>2.4-4.7 </text> </observationRange> </referenceRange> </ observation> </component> </organizer> </entry> <entry> <organizer moodCode="EVN" classCode="BATTERY"> <templateId root= "16.840.1.784958.10..22.4.1" /> <id nullFlavor="NA" /> <code codeSystem="local" code="MG" displayName="Magnesium" /> <statusCode code= "completed" /> <component> <observation moodCode="EVN" classCode= "OBS"> <templateId root="10.29.840.1.852069.10..22.4.2" /> < id nullFlavor="NA" /> <code codeSystem="local" code="MG" displayName= "Magnesium" /> <statusCode code="completed" /> <effectiveTime value="709676142034" /> <value unit="mg/dL" xsi:type="PQ" value="1.9" / > <referenceRange> <observationRange> <text>1.8 -2.5</text> </observationRange> </referenceRange> </ observation> </component> </organizer> </entry> <entry> <organizer moodCode="EVN" classCode="BATTERY"> <templateId root= "10.29.840.1.753984.10..22.4.1" /> <id nullFlavor="NA" /> <code codeSystem="local" code="CMP" displayName="Comprehensive Metabolic Panel (CMP)" /> <statusCode code="completed" /> <component> <observation moodCode="EVN" classCode="OBS"> <templateId root= "16.840.1.838069.10..4.2" /> <id nullFlavor="NA" /> < code codeSystem="local" code="ALB" displayName="Albumin" /> < statusCode code="completed" /> <effectiveTime value="693642652994" /> <value unit="g/dL" xsi:type="PQ" value="3.6" /> < referenceRange> <observationRange> <text>3.5-4.8</text> </observationRange> </referenceRange> </observation > </component> <component> <observation moodCode="EVN" classCode="OBS"> <templateId root="10.29.840.1.329437.07.02.22.4.2" /> <id nullFlavor="NA" /> <code codeSystem="local" code="ALP" displayName="Alkaline Phosphatase" /> <statusCode code="completed" /> <effectiveTime value="251626101124" /> <value unit="U/L" xsi: type="PQ" value="96" /> <referenceRange> <observationRange> <text>26-104</text> </observationRange> </ referenceRange> </observation> </component> <component> <observation moodCode="EVN" classCode="OBS"> <templateId root= "10.29.840.1.021601.10..22.4.2" /> <id nullFlavor="NA" /> < code codeSystem="local" code="ALT" displayName="ALT (SGPT)" /> < statusCode code="completed" /> <effectiveTime value="133327102344" /> <value unit="U/L" xsi:type="PQ" value="77" /> < interpretationCode codeSystem="local" code="*" /> <referenceRange> <observationRange> <text>17-63</text> </ observationRange> </referenceRange> </observation> </ component> <component> <observation moodCode="EVN" classCode="OBS"> <templateId root="10.29.840.1.019336.10..22.4.2" /> <id nullFlavor="NA" /> <code codeSystem="local" code="AGAP" displayName= "Anion Gap" /> <statusCode code="completed" /> <effectiveTime value="356877800770" /> <value unit="mEq/L" xsi:type="PQ" value="10" / > <referenceRange> <observationRange> <text>3- 20</text> </observationRange> </referenceRange> </ observation> </component> <component> <observation moodCode= "EVN" classCode="OBS"> <templateId root="10.29.840.1.453414.10...4.2 " /> <id nullFlavor="NA" /> <code codeSystem="local" code="AST " displayName="AST (SGOT)" /> <statusCode code="completed" /> <effectiveTime value="841365928308" /> <value unit="U/L" xsi:type="PQ" value="49" /> <interpretationCode codeSystem="local" code="*" /> <referenceRange> <observationRange> <text>15-41</ text> </observationRange> </referenceRange> </ observation> </component> <component> <observation moodCode= "EVN" classCode="OBS"> <templateId root="10.29.840.1.313334.10.20.22.4.2 " /> <id nullFlavor="NA" /> <code codeSystem="local" code= "BILIT" displayName="Bilirubin Total" /> <statusCode code="completed" / > <effectiveTime value="492662403231" /> <value unit="mg/dL" xsi:type="PQ" value="0.5" /> <referenceRange> < observationRange> <text>0.2-1.2</text> </ observationRange> </referenceRange> </observation> </ component> <component> <observation moodCode="EVN" classCode="OBS"> <templateId root="216.840.1.377911.10.20.22.4.2" /> <id nullFlavor="NA" /> <code codeSystem="local" code="BUN" displayName="BUN " /> <statusCode code="completed" /> <effectiveTime value= "894842730045" /> <value unit="mg/dL" xsi:type="PQ" value="58" /> <interpretationCode codeSystem="local" code="*" /> <referenceRange > <observationRange> <text>4-20</text> </ observationRange> </referenceRange> </observation> </ component> <component> <observation moodCode="EVN" classCode="OBS"> <templateId root="216.840.1.726130.10.20.22.4.2" /> <id nullFlavor="NA" /> <code codeSystem="local" code="CA" displayName= "Calcium" /> <statusCode code="completed" /> <effectiveTime value="355236791741" /> <value unit="mg/dL" xsi:type="PQ" value="9.1" / > <referenceRange> <observationRange> <text>8.6 -10.0</text> </observationRange> </referenceRange> </ observation> </component> <component> <observation moodCode= "EVN" classCode="OBS"> <templateId root="10.29.840.1.558191.10.20.22.4.2 " /> <id nullFlavor="NA" /> <code codeSystem="local" code="CL " displayName="Chloride" /> <statusCode code="completed" /> < effectiveTime value="762259598889" /> <value unit="mEq/L" xsi:type="PQ " value="97" /> <interpretationCode codeSystem="local" code="*" /> <referenceRange> <observationRange> <text>99-109</ text> </observationRange> </referenceRange> </ observation> </component> <component> <observation moodCode= "EVN" classCode="OBS"> <templateId root="10.29.840.1.995754.10.22.4.2 " /> <id nullFlavor="NA" /> <code codeSystem="local" code="CO2 " displayName="CO2" /> <statusCode code="completed" /> < effectiveTime value="793924530250" /> <value unit="mEq/L" xsi:type="PQ " value="22" /> <referenceRange> <observationRange> <text>22-32</text> </observationRange> </ referenceRange> </observation> </component> <component> <observation moodCode="EVN" classCode="OBS"> <templateId root= "10.29.840.1.197380.10..22.4.2" /> <id nullFlavor="NA" /> < code codeSystem="local" code="CREAT" displayName="Creatinine" /> < statusCode code="completed" /> <effectiveTime value="282753739662" /> <value unit="mg/dL" xsi:type="PQ" value="1.41" /> < interpretationCode codeSystem="local" code="*" /> <referenceRange> <observationRange> <text>0.64-1.27</text> </ observationRange> </referenceRange> </observation> </ component> <component> <observation moodCode="EVN" classCode="OBS"> <templateId root="16.840.1.172571.10..22.4.2" /> <id nullFlavor="NA" /> <code codeSystem="local" code="GLOB" displayName= "Globulin" /> <statusCode code="completed" /> <effectiveTime value="913510584121" /> <value unit="g/dL" xsi:type="PQ" value="3.6" / > <referenceRange> <observationRange> <text>1.9 -4.3</text> </observationRange> </referenceRange> </ observation> </component> <component> <observation moodCode= "EVN" classCode="OBS"> <templateId root="10.29.840.1.129522.10..4.2 " /> <id nullFlavor="NA" /> <code codeSystem="local" code="GLU " displayName="Glucose" /> <statusCode code="completed" /> < effectiveTime value="426591893051" /> <value unit="mg/dL" xsi:type="PQ " value="114" /> <interpretationCode codeSystem="local" code="*" /> <referenceRange> <observationRange> <text>70-100< /text> </observationRange> </referenceRange> </ observation> </component> <component> <observation moodCode= "EVN" classCode="OBS"> <templateId root="10.29.840.1.311492.10..22.4.2 " /> <id nullFlavor="NA" /> <code codeSystem="local" code="K" displayName="Potassium" /> <statusCode code="completed" /> < effectiveTime value="735003245119" /> <value unit="mEq/L" xsi:type="PQ " value="5.6" /> <interpretationCode codeSystem="local" code="*" /> <referenceRange> <observationRange> <text>3.6-5.1 </text> </observationRange> </referenceRange> </ observation> </component> <component> <observation moodCode= "EVN" classCode="OBS"> <templateId root="216.840.1.322139.10.20.22.4.2 " /> <id nullFlavor="NA" /> <code codeSystem="local" code="TP " displayName="Protein" /> <statusCode code="completed" /> < effectiveTime value="992057245694" /> <value unit="g/dL" xsi:type="PQ" value="7.2" /> <referenceRange> <observationRange> <text>6.1-7.9</text> </observationRange> </ referenceRange> </observation> </component> <component> <observation moodCode="EVN" classCode="OBS"> <templateId root= "216.840.1.699444.10.20.22.4.2" /> <id nullFlavor="NA" /> < code codeSystem="local" code="NA" displayName="Sodium" /> <statusCode code="completed" /> <effectiveTime value="979431309741" /> < value unit="mEq/L" xsi:type="PQ" value="129" /> <interpretationCode codeSystem="local" code="*" /> <referenceRange> < observationRange> <text>136-144</text> </ observationRange> </referenceRange> </observation> </ component> </organizer> </entry> <entry> <organizer moodCode="EVN" classCode="BATTERY"> <templateId root="840.1.953624.07.02.22.4.1" /> <id nullFlavor="NA" /> <code codeSystem="local" code="GFR" displayName ="eGFR" /> <statusCode code="completed" /> <component> < observation moodCode="EVN" classCode="OBS"> <templateId root= "840.1.477783.07.02.22.4.2" /> <id nullFlavor="NA" /> < code codeSystem="local" code="GFR" displayName="eGFR" /> <statusCode code="completed" /> <effectiveTime value="901383347291" /> < value unit="mL/min" xsi:type="PQ" value="54" /> <interpretationCode codeSystem="local" code="*" /> <referenceRange> < observationRange> <text>>60</text> </observationRange > </referenceRange> </observation> </component> </ organizer> </entry> <entry> <organizer moodCode="EVN" classCode="BATTERY"> <templateId root="840.1.805470.07.02.22.4.1" /> <id nullFlavor= "NA" /> <code codeSystem="local" code="BMP" displayName="Basic Metabolic Panel (BMP)" /> <statusCode code="completed" /> <component> < observation moodCode="EVN" classCode="OBS"> <templateId root= "840.1.627580.07.02.22.4.2" /> <id nullFlavor="NA" /> < code codeSystem="local" code="AGAP" displayName="Anion Gap" /> < statusCode code="completed" /> <effectiveTime value="878643204140" /> <value unit="mEq/L" xsi:type="PQ" value="8" /> <referenceRange > <observationRange> <text>3-20</text> </ observationRange> </referenceRange> </observation> </ component> <component> <observation moodCode="EVN" classCode="OBS"> <templateId root="16.840.1.120446.10..22.4.2" /> <id nullFlavor="NA" /> <code codeSystem="local" code="BUN" displayName="BUN " /> <statusCode code="completed" /> <effectiveTime value= "794538211845" /> <value unit="mg/dL" xsi:type="PQ" value="66" /> <interpretationCode codeSystem="local" code="*" /> <referenceRange > <observationRange> <text>4-20</text> </ observationRange> </referenceRange> </observation> </ component> <component> <observation moodCode="EVN" classCode="OBS"> <templateId root="10.29.840.1.539757...4.2" /> <id nullFlavor="NA" /> <code codeSystem="local" code="CA" displayName= "Calcium" /> <statusCode code="completed" /> <effectiveTime value="008813722649" /> <value unit="mg/dL" xsi:type="PQ" value="8.7" / > <referenceRange> <observationRange> <text>8.6 -10.0</text> </observationRange> </referenceRange> </ observation> </component> <component> <observation moodCode= "EVN" classCode="OBS"> <templateId root="10.29.840.1.402254.10..22.4.2 " /> <id nullFlavor="NA" /> <code codeSystem="local" code="CL " displayName="Chloride" /> <statusCode code="completed" /> < effectiveTime value="233263365761" /> <value unit="mEq/L" xsi:type="PQ " value="99" /> <referenceRange> <observationRange> <text>99-109</text> </observationRange> </ referenceRange> </observation> </component> <component> <observation moodCode="EVN" classCode="OBS"> <templateId root= "216.840.1.217469.10.20.22.4.2" /> <id nullFlavor="NA" /> < code codeSystem="local" code="CO2" displayName="CO2" /> <statusCode code="completed" /> <effectiveTime value="679106412675" /> < value unit="mEq/L" xsi:type="PQ" value="20" /> <interpretationCode codeSystem="local" code="*" /> <referenceRange> < observationRange> <text>22-32</text> </observationRange > </referenceRange> </observation> </component> < component> <observation moodCode="EVN" classCode="OBS"> < templateId root="216.840.1.770017.10.20.22.4.2" /> <id nullFlavor="NA " /> <code codeSystem="local" code="CREAT" displayName="Creatinine" /> <statusCode code="completed" /> <effectiveTime value= "378230182584" /> <value unit="mg/dL" xsi:type="PQ" value="1.71" /> <interpretationCode codeSystem="local" code="*" /> < referenceRange> <observationRange> <text>0.64-1.27</text > </observationRange> </referenceRange> </observation > </component> <component> <observation moodCode="EVN" classCode="OBS"> <templateId root="10.29.840.1.427080.10.20.22.4.2" /> <id nullFlavor="NA" /> <code codeSystem="local" code="GLU" displayName="Glucose" /> <statusCode code="completed" /> < effectiveTime value="655630054031" /> <value unit="mg/dL" xsi:type="PQ " value="145" /> <interpretationCode codeSystem="local" code="*" /> <referenceRange> <observationRange> <text>70-100< /text> </observationRange> </referenceRange> </ observation> </component> <component> <observation moodCode= "EVN" classCode="OBS"> <templateId root="10.29.840.1.311556.10...4.2 " /> <id nullFlavor="NA" /> <code codeSystem="local" code="K" displayName="Potassium" /> <statusCode code="completed" /> < effectiveTime value="367072896164" /> <value unit="mEq/L" xsi:type="PQ " value="5.8" /> <interpretationCode codeSystem="local" code="*" /> <referenceRange> <observationRange> <text>3.6-5.1 </text> </observationRange> </referenceRange> </ observation> </component> <component> <observation moodCode= "EVN" classCode="OBS"> <templateId root="10.29.840.1.715409.10.22.4.2 " /> <id nullFlavor="NA" /> <code codeSystem="local" code="NA " displayName="Sodium" /> <statusCode code="completed" /> < effectiveTime value="396992547180" /> <value unit="mEq/L" xsi:type="PQ " value="127" /> <interpretationCode codeSystem="local" code="*" /> <referenceRange> <observationRange> <text>136-144 </text> </observationRange> </referenceRange> </ observation> </component> </organizer> </entry> <entry> <organizer moodCode="EVN" classCode="BATTERY"> <templateId root= "16.840.1.887848.10...4.1" /> <id nullFlavor="NA" /> <code codeSystem="local" code="GFR" displayName="eGFR" /> <statusCode code= "completed" /> <component> <observation moodCode="EVN" classCode= "OBS"> <templateId root="16.840.1.972598.10...4.2" /> < id nullFlavor="NA" /> <code codeSystem="local" code="GFR" displayName= "eGFR" /> <statusCode code="completed" /> <effectiveTime value ="815251485730" /> <value unit="mL/min" xsi:type="PQ" value="43" /> <interpretationCode codeSystem="local" code="*" /> < referenceRange> <observationRange> <text>>60</text> </observationRange> </referenceRange> </observation> </component> </organizer> </entry> <entry> <organizer moodCode= "EVN" classCode="BATTERY"> <templateId root="16.840.1.992777.10...4.1 " /> <id nullFlavor="NA" /> <code codeSystem="local" code="ULYTR" displayName="Urine Electrolytes, Random" /> <statusCode code="completed" / > <component> <observation moodCode="EVN" classCode="OBS"> <templateId root="2.16.840.1.312922.10.22.4.2" /> <id nullFlavor="NA " /> <code codeSystem="local" code="UCLR" displayName="Chloride Random Urine" /> <statusCode code="completed" /> <effectiveTime value ="420359319146" /> <value unit="mEq/L" xsi:type="PQ" value="37" /> <referenceRange> <observationRange> <text /> </observationRange> </referenceRange> </observation> </component> <component> <observation moodCode="EVN" classCode= "OBS"> <templateId root="2.16.840.1.525719.10..4.2" /> < id nullFlavor="NA" /> <code codeSystem="local" code="UKR" displayName= "Potassium Random Urine" /> <statusCode code="completed" /> < effectiveTime value="303605881089" /> <value unit="mEq/L" xsi:type="PQ " value="57" /> <referenceRange> <observationRange> <text /> </observationRange> </referenceRange> </observation> </component> <component> <observation moodCode= "EVN" classCode="OBS"> <templateId root="216.840.1.847236.10..4.2 " /> <id nullFlavor="NA" /> <code codeSystem="local" code= "UNAR" displayName="Sodium Random Urine" /> <statusCode code="completed " /> <effectiveTime value="776178171325" /> <value unit="mEq/L " xsi:type="PQ" value="61" /> <referenceRange> < observationRange> <text /> </observationRange> </referenceRange> </observation> </component> </organizer> </ entry> <entry> <organizer moodCode="EVN" classCode="BATTERY"> < templateId root="10.29.840.1.272518.10...4.1" /> <id nullFlavor="NA" /> <code codeSystem="local" code="UCRER" displayName="Creatinine Random Urine " /> <statusCode code="completed" /> <component> <observation moodCode="EVN" classCode="OBS"> <templateId root= "840.1.547193.22.4.2" /> <id nullFlavor="NA" /> < code codeSystem="local" code="UCRER" displayName="Creatinine Random Urine" /> <statusCode code="completed" /> <effectiveTime value= "167013911661" /> <value unit="mg/dL" xsi:type="PQ" value="64" /> <referenceRange> <observationRange> <text /> </observationRange> </referenceRange> </observation> </component> </organizer> </entry> <entry> <organizer moodCode="EVN" classCode="BATTERY"> <templateId root="840.1.766750.07.02.22.4.1" /> <id nullFlavor="NA" /> <code codeSystem="local" code="UA" displayName= "Urinalysis with reflex microscopic" /> <statusCode code="completed" /> <component> <observation moodCode="EVN" classCode="OBS"> < templateId root="10.29.840.1.489648.10.4.2" /> <id nullFlavor="NA " /> <code codeSystem="local" code="UAPP" displayName="Appearance" /> <statusCode code="completed" /> <effectiveTime value= "805091582290" /> <value unit="NA" xsi:type="PQ" value="Cloudy" /> <interpretationCode codeSystem="local" code="*" /> < referenceRange> <observationRange> <text /> < /observationRange> </referenceRange> </observation> </ component> <component> <observation moodCode="EVN" classCode="OBS"> <templateId root="16.840.1.328990.10.4.2" /> <id nullFlavor="NA" /> <code codeSystem="local" code="UBIL" displayName= "Bilirubin" /> <statusCode code="completed" /> <effectiveTime value="811432664478" /> <value unit="NA" xsi:type="PQ" value="Negative " /> <referenceRange> <observationRange> <text> Negative</text> </observationRange> </referenceRange> </observation> </component> <component> <observation moodCode ="EVN" classCode="OBS"> <templateId root= "840.1.960167.07.02.22.4.2" /> <id nullFlavor="NA" /> < code codeSystem="local" code="UBLD" displayName="Blood" /> <statusCode code="completed" /> <effectiveTime value="881269629129" /> < value unit="NA" xsi:type="PQ" value="Negative" /> <referenceRange> <observationRange> <text>Negative</text> </ observationRange> </referenceRange> </observation> </ component> <component> <observation moodCode="EVN" classCode="OBS"> <templateId root="10.29.840.1.439396.10.4.2" /> <id nullFlavor="NA" /> <code codeSystem="local" code="UCOLR" displayName= "Color" /> <statusCode code="completed" /> <effectiveTime value="740313803413" /> <value unit="NA" xsi:type="PQ" value="Yellow" / > <referenceRange> <observationRange> <text /> </observationRange> </referenceRange> </observation > </component> <component> <observation moodCode="EVN" classCode="OBS"> <templateId root="10.29.840.1.870946.07.02.22.4.2" /> <id nullFlavor="NA" /> <code codeSystem="local" code="UGLU" displayName="Glucose, Urine" /> <statusCode code="completed" /> <effectiveTime value="709084601151" /> <value unit="" xsi:type="PQ" value="Negative" /> <referenceRange> <observationRange> <text>Negative</text> </observationRange> </ referenceRange> </observation> </component> <component> <observation moodCode="EVN" classCode="OBS"> <templateId root= "840.1.140405.07.02.22.4.2" /> <id nullFlavor="NA" /> < code codeSystem="local" code="UKET" displayName="Ketones" /> < statusCode code="completed" /> <effectiveTime value="" /> <value unit="" xsi:type="PQ" value="Negative" /> < referenceRange> <observationRange> <text>Negative</text > </observationRange> </referenceRange> </observation > </component> <component> <observation moodCode="EVN" classCode="OBS"> <templateId root="840.1.621522.22.4.2" /> <id nullFlavor="NA" /> <code codeSystem="local" code="ULEU" displayName="Leukocyte Esterase" /> <statusCode code="completed" /> <effectiveTime value="460455725644" /> <value unit="NA" xsi:type ="PQ" value="Pos 1+" /> <interpretationCode codeSystem="local" code="* " /> <referenceRange> <observationRange> <text> Negative</text> </observationRange> </referenceRange> </observation> </component> <component> <observation moodCode ="EVN" classCode="OBS"> <templateId root= "16.840.1.752560.10.22.4.2" /> <id nullFlavor="NA" /> < code codeSystem="local" code="UNIT" displayName="Nitrites" /> < statusCode code="completed" /> <effectiveTime value="585218173163" /> <value unit="NA" xsi:type="PQ" value="Negative" /> < referenceRange> <observationRange> <text>Negative</text > </observationRange> </referenceRange> </observation > </component> <component> <observation moodCode="EVN" classCode="OBS"> <templateId root="10.29.840.1.754062.07.02.22.4.2" /> <id nullFlavor="NA" /> <code codeSystem="local" code="UPH" displayName="pH" /> <statusCode code="completed" /> < effectiveTime value="805581147577" /> <value unit="NA" xsi:type="PQ" value="5.0" /> <referenceRange> <observationRange> <text>5.0-8.0</text> </observationRange> </ referenceRange> </observation> </component> <component> <observation moodCode="EVN" classCode="OBS"> <templateId root= "10.29.840.1.789322.1022.4.2" /> <id nullFlavor="NA" /> < code codeSystem="local" code="UPRO" displayName="Protein" /> < statusCode code="completed" /> <effectiveTime value="446468985887" /> <value unit="NA" xsi:type="PQ" value="Negative" /> < referenceRange> <observationRange> <text>Negative</text > </observationRange> </referenceRange> </observation > </component> <component> <observation moodCode="EVN" classCode="OBS"> <templateId root="216.840.1.033078.10..22.4.2" /> <id nullFlavor="NA" /> <code codeSystem="local" code="USPG" displayName="Specific [place]" /> <statusCode code="completed" /> <effectiveTime value="158601254554" /> <value unit="NA" xsi:type= "PQ" value="1.020" /> <referenceRange> <observationRange> <text>1.003-1.030</text> </observationRange> </ referenceRange> </observation> </component> <component> <observation moodCode="EVN" classCode="OBS"> <templateId root= "16.840.1.990285.10..22.4.2" /> <id nullFlavor="NA" /> < code codeSystem="local" code="UTYP" displayName="UA Collection type" /> <statusCode code="completed" /> <effectiveTime value="458869648744" / > <value unit="NA" xsi:type="PQ" value="Clean Catch" /> < referenceRange> <observationRange> <text /> < /observationRange> </referenceRange> </observation> </ component> <component> <observation moodCode="EVN" classCode="OBS"> <templateId root="16.840.1.507727.22.4.2" /> <id nullFlavor="NA" /> <code codeSystem="local" code="UURO" displayName= "Urobilinogen" /> <statusCode code="completed" /> < effectiveTime value="805379107625" /> <value unit="mg/dL" xsi:type="PQ " value="Negative" /> <referenceRange> <observationRange> <text><1.0</text> </observationRange> </ referenceRange> </observation> </component> </organizer> </entry > <entry> <organizer moodCode="EVN" classCode="BATTERY"> <templateId root="10.29.840.1.777315.07.02.22.4.1" /> <id nullFlavor="NA" /> <code codeSystem="local" code="UMIC" displayName="Urine Microscopic" /> < statusCode code="completed" /> <component> <observation moodCode= "EVN" classCode="OBS"> <templateId root="840.1.328210.07.02.22.4.2 " /> <id nullFlavor="NA" /> <code codeSystem="local" code= "UBAC" displayName="Bacteria" /> <statusCode code="completed" /> <effectiveTime value="971256732858" /> <value unit="NA" xsi:type= "PQ" value="Rare" /> <referenceRange> <observationRange> <text /> </observationRange> </referenceRange> </observation> </component> <component> <observation moodCode="EVN" classCode="OBS"> <templateId root= "10.29.840.1.824731.07.02.22.4.2" /> <id nullFlavor="NA" /> < code codeSystem="local" code="UCRY1" displayName="Crystals" /> < statusCode code="completed" /> <effectiveTime value="" /> <value unit="NA" xsi:type="PQ" value="Uric Acid" /> < referenceRange> <observationRange> <text /> < /observationRange> </referenceRange> </observation> </ component> <component> <observation moodCode="EVN" classCode="OBS"> <templateId root="16.840.1.284459.07.02.22.4.2" /> <id nullFlavor="NA" /> <code codeSystem="local" code="UEPI" displayName= "Epithelial Cells" /> <statusCode code="completed" /> < effectiveTime value="" /> <value unit="/HPF" xsi:type="PQ" value="0" /> <referenceRange> <observationRange> <text /> </observationRange> </referenceRange> </ observation> </component> <component> <observation moodCode= "EVN" classCode="OBS"> <templateId root="10.29.840.1.339188.10.4.2 " /> <id nullFlavor="NA" /> <code codeSystem="local" code= "UHCST" displayName="Hyaline Casts" /> <statusCode code="completed" /> <effectiveTime value="" /> <value unit="/LPF" xsi :type="PQ" value="1" /> <referenceRange> <observationRange> <text>0-3</text> </observationRange> </ referenceRange> </observation> </component> <component> <observation moodCode="EVN" classCode="OBS"> <templateId root= "16.840.1.961510.22.4.2" /> <id nullFlavor="NA" /> < code codeSystem="local" code="URBC" displayName="RBC, Urine" /> < statusCode code="completed" /> <effectiveTime value="" /> <value unit="/HPF" xsi:type="PQ" value="None seen" /> < referenceRange> <observationRange> <text>0-2</text> </observationRange> </referenceRange> </observation> </component> <component> <observation moodCode="EVN" classCode= "OBS"> <templateId root="216.840.1.853921.10..22.4.2" /> < id nullFlavor="NA" /> <code codeSystem="local" code="UMUC" displayName= "Urine Mucus" /> <statusCode code="completed" /> < effectiveTime value="" /> <value unit="NA" xsi:type="PQ" value="Present" /> <referenceRange> <observationRange> <text /> </observationRange> </referenceRange> </observation> </component> <component> <observation moodCode="EVN" classCode="OBS"> <templateId root= "2.16.840.1.483488.10..22.4.2" /> <id nullFlavor="NA" /> < code codeSystem="local" code="UWBC" displayName="WBC, Urine" /> < statusCode code="completed" /> <effectiveTime value="921809319582" /> <value unit="/HPF" xsi:type="PQ" value="5" /> < interpretationCode codeSystem="local" code="*" /> <referenceRange> <observationRange> <text>0-4</text> </ observationRange> </referenceRange> </observation> </ component> </organizer> </entry> <entry> <organizer moodCode="EVN" classCode="BATTERY"> <templateId root="840.1.874048.07.02.22.4.1" /> <id nullFlavor="NA" /> <code codeSystem="local" code="K" displayName= "Potassium" /> <statusCode code="completed" /> <component> < observation moodCode="EVN" classCode="OBS"> <templateId root= "840.1.682080.07.02.22.4.2" /> <id nullFlavor="NA" /> < code codeSystem="local" code="K" displayName="Potassium" /> < statusCode code="completed" /> <effectiveTime value="115619522207" /> <value unit="mEq/L" xsi:type="PQ" value="5.6" /> < interpretationCode codeSystem="local" code="*" /> <referenceRange> <observationRange> <text>3.6-5.1</text> </ observationRange> </referenceRange> </observation> </ component> </organizer> </entry> <entry> <organizer moodCode="EVN" classCode="BATTERY"> <templateId root="840.1.301215.07.02.22.4.1" /> <id nullFlavor="NA" /> <code codeSystem="local" code="GLUN" displayName="Glucose NPT" /> <statusCode code="completed" /> < component> <observation moodCode="EVN" classCode="OBS"> < templateId root="840.1.585743.07.02.22.4.2" /> <id nullFlavor="NA " /> <code codeSystem="local" code="GLUN" displayName="Glucose NPT" / > <statusCode code="completed" /> <effectiveTime value= "909212033654" /> <value unit="mg/dL" xsi:type="PQ" value="98" /> <referenceRange> <observationRange> <text>70-100</ text> </observationRange> </referenceRange> </ observation> </component> </organizer> </entry> <entry> <organizer moodCode="EVN" classCode="BATTERY"> <templateId root= "10.29.840.1.932201.10..4.1" /> <id nullFlavor="NA" /> <code codeSystem="local" code="CBCND" displayName="CBC With Platelet No Differential" /> <statusCode code="completed" /> <component> <observation moodCode="EVN" classCode="OBS"> <templateId root= "10.29.840.1.410534.10..4.2" /> <id nullFlavor="NA" /> < code codeSystem="local" code="HCT" displayName="HCT" /> <statusCode code="completed" /> <effectiveTime value="502991406601" /> < value unit="%" xsi:type="PQ" value="39.3" /> <interpretationCode codeSystem="local" code="*" /> <referenceRange> < observationRange> <text>42.0-52.0</text> </ observationRange> </referenceRange> </observation> </ component> <component> <observation moodCode="EVN" classCode="OBS"> <templateId root="840.1.689313.10...4.2" /> <id nullFlavor="NA" /> <code codeSystem="local" code="HGB" displayName="HGB " /> <statusCode code="completed" /> <effectiveTime value= "647939033368" /> <value unit="g/dL" xsi:type="PQ" value="13.5" /> <interpretationCode codeSystem="local" code="*" /> < referenceRange> <observationRange> <text>14.0-18.0</text > </observationRange> </referenceRange> </observation > </component> <component> <observation moodCode="EVN" classCode="OBS"> <templateId root="216.840.1.461410.10.20.22.4.2" /> <id nullFlavor="NA" /> <code codeSystem="local" code="MCH" displayName="MCH" /> <statusCode code="completed" /> < effectiveTime value="709368800464" /> <value unit="pg" xsi:type="PQ" value="30.7" /> <referenceRange> <observationRange> <text>27.0-32.0</text> </observationRange> </ referenceRange> </observation> </component> <component> <observation moodCode="EVN" classCode="OBS"> <templateId root= "10.29.840.1.982652.10..4.2" /> <id nullFlavor="NA" /> < code codeSystem="local" code="MCHC" displayName="MCHC" /> <statusCode code="completed" /> <effectiveTime value="145843665555" /> < value unit="g/dL" xsi:type="PQ" value="34.4" /> <referenceRange> <observationRange> <text>32.0-36.0</text> </ observationRange> </referenceRange> </observation> </ component> <component> <observation moodCode="EVN" classCode="OBS"> <templateId root="16.840.1.801492.10.20..4.2" /> <id nullFlavor="NA" /> <code codeSystem="local" code="MCV" displayName="MCV " /> <statusCode code="completed" /> <effectiveTime value= "" /> <value unit="fL" xsi:type="PQ" value="89.3" /> <referenceRange> <observationRange> <text>82.0-99.0< /text> </observationRange> </referenceRange> </ observation> </component> <component> <observation moodCode= "EVN" classCode="OBS"> <templateId root="10.29.840.1.508315.10.22.4.2 " /> <id nullFlavor="NA" /> <code codeSystem="local" code="MPV " displayName="MPV" /> <statusCode code="completed" /> < effectiveTime value="" /> <value unit="fL" xsi:type="PQ" value="10.4" /> <referenceRange> <observationRange> <text>9.4-12.3</text> </observationRange> </ referenceRange> </observation> </component> <component> <observation moodCode="EVN" classCode="OBS"> <templateId root= "10.29.840.1.688242.22.4.2" /> <id nullFlavor="NA" /> < code codeSystem="local" code="PLT" displayName="Platelet Count" /> < statusCode code="completed" /> <effectiveTime value="" /> <value unit="K/uL" xsi:type="PQ" value="211" /> < referenceRange> <observationRange> <text>150-400</text> </observationRange> </referenceRange> </observation > </component> <component> <observation moodCode="EVN" classCode="OBS"> <templateId root="10.29.840.1.641565.07.02.22.4.2" /> <id nullFlavor="NA" /> <code codeSystem="local" code="RBC" displayName="RBC" /> <statusCode code="completed" /> < effectiveTime value="" /> <value unit="10*6/uL" xsi:type= "PQ" value="4.40" /> <interpretationCode codeSystem="local" code="*" / > <referenceRange> <observationRange> <text> 4.60-6.20</text> </observationRange> </referenceRange> </observation> </component> <component> <observation moodCode="EVN" classCode="OBS"> <templateId root= "216.840.1.453774.07.02.22.4.2" /> <id nullFlavor="NA" /> < code codeSystem="local" code="RDW" displayName="RDW" /> <statusCode code="completed" /> <effectiveTime value="" /> < value unit="%" xsi:type="PQ" value="13.6" /> <referenceRange> <observationRange> <text>11.5-14.5</text> </ observationRange> </referenceRange> </observation> </ component> <component> <observation moodCode="EVN" classCode="OBS"> <templateId root="216.840.1.631146.07.02.22.4.2" /> <id nullFlavor="NA" /> <code codeSystem="local" code="WBCIR" displayName= "WBC" /> <statusCode code="completed" /> <effectiveTime value= "" /> <value unit="K/uL" xsi:type="PQ" value="15.6" /> <interpretationCode codeSystem="local" code="*" /> < referenceRange> <observationRange> <text>4.8-10.8</text > </observationRange> </referenceRange> </observation > </component> </organizer> </entry> <entry> <organizer moodCode= "EVN" classCode="BATTERY"> <templateId root="2.16.840.1.427329.10..22.4.1 " /> <id nullFlavor="NA" /> <code codeSystem="local" code="RENAL" displayName="Renal Function Panel" /> <statusCode code="completed" /> <component> <observation moodCode="EVN" classCode="OBS"> < templateId root="2.16.840.1.657222...4.2" /> <id nullFlavor="NA " /> <code codeSystem="local" code="ALB" displayName="Albumin" /> <statusCode code="completed" /> <effectiveTime value=" " /> <value unit="g/dL" xsi:type="PQ" value="3.5" /> < referenceRange> <observationRange> <text>3.5-4.8</text> </observationRange> </referenceRange> </observation > </component> <component> <observation moodCode="EVN" classCode="OBS"> <templateId root="16.840.1.573138.07.02.22.4.2" /> <id nullFlavor="NA" /> <code codeSystem="local" code="AGAP" displayName="Anion Gap" /> <statusCode code="completed" /> < effectiveTime value="" /> <value unit="mEq/L" xsi:type="PQ " value="5" /> <referenceRange> <observationRange> <text>3-20</text> </observationRange> </referenceRange > </observation> </component> <component> <observation moodCode="EVN" classCode="OBS"> <templateId root= "216.840.1.619027.10..22.4.2" /> <id nullFlavor="NA" /> < code codeSystem="local" code="BUN" displayName="BUN" /> <statusCode code="completed" /> <effectiveTime value="" /> < value unit="mg/dL" xsi:type="PQ" value="57" /> <interpretationCode codeSystem="local" code="*" /> <referenceRange> < observationRange> <text>4-20</text> </observationRange> </referenceRange> </observation> </component> < component> <observation moodCode="EVN" classCode="OBS"> < templateId root="16.840.1.207140.07.02.22.4.2" /> <id nullFlavor="NA " /> <code codeSystem="local" code="CA" displayName="Calcium" /> <statusCode code="completed" /> <effectiveTime value=" " /> <value unit="mg/dL" xsi:type="PQ" value="9.1" /> < referenceRange> <observationRange> <text>8.6-10.0</text > </observationRange> </referenceRange> </observation > </component> <component> <observation moodCode="EVN" classCode="OBS"> <templateId root="16.840.1.910399.10..22.4.2" /> <id nullFlavor="NA" /> <code codeSystem="local" code="CL" displayName="Chloride" /> <statusCode code="completed" /> < effectiveTime value="370390082335" /> <value unit="mEq/L" xsi:type="PQ " value="100" /> <referenceRange> <observationRange> <text>99-109</text> </observationRange> </ referenceRange> </observation> </component> <component> <observation moodCode="EVN" classCode="OBS"> <templateId root= "10.29.840.1.301991.10.20.22.4.2" /> <id nullFlavor="NA" /> < code codeSystem="local" code="CO2" displayName="CO2" /> <statusCode code="completed" /> <effectiveTime value="" /> < value unit="mEq/L" xsi:type="PQ" value="23" /> <referenceRange> <observationRange> <text>22-32</text> </ observationRange> </referenceRange> </observation> </ component> <component> <observation moodCode="EVN" classCode="OBS"> <templateId root="10.29.840.1.397380.10..22.4.2" /> <id nullFlavor="NA" /> <code codeSystem="local" code="CREAT" displayName= "Creatinine" /> <statusCode code="completed" /> < effectiveTime value="337494795958" /> <value unit="mg/dL" xsi:type="PQ " value="1.51" /> <interpretationCode codeSystem="local" code="*" /> <referenceRange> <observationRange> <text>0.64- 1.27</text> </observationRange> </referenceRange> </ observation> </component> <component> <observation moodCode= "EVN" classCode="OBS"> <templateId root="10.29.840.1.074124.10.20.22.4.2 " /> <id nullFlavor="NA" /> <code codeSystem="local" code="GLU " displayName="Glucose" /> <statusCode code="completed" /> < effectiveTime value="445702824967" /> <value unit="mg/dL" xsi:type="PQ " value="105" /> <interpretationCode codeSystem="local" code="*" /> <referenceRange> <observationRange> <text>70-100< /text> </observationRange> </referenceRange> </ observation> </component> <component> <observation moodCode= "EVN" classCode="OBS"> <templateId root="216.840.1.716108.10.20.22.4.2 " /> <id nullFlavor="NA" /> <code codeSystem="local" code= "PHOS" displayName="Phosphorus" /> <statusCode code="completed" /> <effectiveTime value="" /> <value unit="mg/dL" xsi: type="PQ" value="4.9" /> <interpretationCode codeSystem="local" code="* " /> <referenceRange> <observationRange> <text> 2.4-4.7</text> </observationRange> </referenceRange> </observation> </component> <component> <observation moodCode= "EVN" classCode="OBS"> <templateId root="16.840.1.894731.10.20.22.4.2 " /> <id nullFlavor="NA" /> <code codeSystem="local" code="K" displayName="Potassium" /> <statusCode code="completed" /> < effectiveTime value="251376270523" /> <value unit="mEq/L" xsi:type="PQ " value="5.9" /> <interpretationCode codeSystem="local" code="*" /> <referenceRange> <observationRange> <text>3.6-5.1 </text> </observationRange> </referenceRange> </ observation> </component> <component> <observation moodCode= "EVN" classCode="OBS"> <templateId root="2.16.840.1.516727.10..22.4.2 " /> <id nullFlavor="NA" /> <code codeSystem="local" code="NA " displayName="Sodium" /> <statusCode code="completed" /> < effectiveTime value="" /> <value unit="mEq/L" xsi:type="PQ " value="128" /> <interpretationCode codeSystem="local" code="*" /> <referenceRange> <observationRange> <text>136-144 </text> </observationRange> </referenceRange> </ observation> </component> </organizer> </entry> <entry> <organizer moodCode="EVN" classCode="BATTERY"> <templateId root= "2.16.840.1.499918.10..22.4.1" /> <id nullFlavor="NA" /> <code codeSystem="local" code="MG" displayName="Magnesium" /> <statusCode code= "completed" /> <component> <observation moodCode="EVN" classCode= "OBS"> <templateId root="2.16.840.1.966494.10.20.22.4.2" /> < id nullFlavor="NA" /> <code codeSystem="local" code="MG" displayName= "Magnesium" /> <statusCode code="completed" /> <effectiveTime value="[id number]" /> <value unit="mg/dL" xsi:type="PQ" value="1.9" / > <referenceRange> <observationRange> <text>1.8 -2.5</text> </observationRange> </referenceRange> </ observation> </component> </organizer> </entry> <entry> <organizer moodCode="EVN" classCode="BATTERY"> <templateId root= "840.1.277160.07.02.22.4.1" /> <id nullFlavor="NA" /> <code codeSystem="local" code="GFR" displayName="eGFR" /> <statusCode code= "completed" /> <component> <observation moodCode="EVN" classCode= "OBS"> <templateId root="840.1.805984.07.02.22.4.2" /> < id nullFlavor="NA" /> <code codeSystem="local" code="GFR" displayName= "eGFR" /> <statusCode code="completed" /> <effectiveTime value ="935325047615" /> <value unit="mL/min" xsi:type="PQ" value="49" /> <interpretationCode codeSystem="local" code="*" /> < referenceRange> <observationRange> <text>>60</text> </observationRange> </referenceRange> </observation> </component> </organizer> </entry> <entry> <organizer moodCode= "EVN" classCode="BATTERY"> <templateId root="840.1.570342.07.02.22.4.1 " /> <id nullFlavor="NA" /> <code codeSystem="local" code="BMP" displayName="Basic Metabolic Panel (BMP)" /> <statusCode code="completed" / > <component> <observation moodCode="EVN" classCode="OBS"> <templateId root="840.1.979373.07.02.22.4.2" /> <id nullFlavor="NA " /> <code codeSystem="local" code="AGAP" displayName="Anion Gap" /> <statusCode code="completed" /> <effectiveTime value= "049608883553" /> <value unit="mEq/L" xsi:type="PQ" value="10" /> <referenceRange> <observationRange> <text>3-20</ text> </observationRange> </referenceRange> </ observation> </component> <component> <observation moodCode= "EVN" classCode="OBS"> <templateId root="16.840.1.511689.10.22.4.2 " /> <id nullFlavor="NA" /> <code codeSystem="local" code="BUN " displayName="BUN" /> <statusCode code="completed" /> < effectiveTime value="119887043244" /> <value unit="mg/dL" xsi:type="PQ " value="54" /> <interpretationCode codeSystem="local" code="*" /> <referenceRange> <observationRange> <text>4-20</ text> </observationRange> </referenceRange> </ observation> </component> <component> <observation moodCode= "EVN" classCode="OBS"> <templateId root="840.1.695400.07.02.22.4.2 " /> <id nullFlavor="NA" /> <code codeSystem="local" code="CA " displayName="Calcium" /> <statusCode code="completed" /> < effectiveTime value="832379241638" /> <value unit="mg/dL" xsi:type="PQ " value="9.7" /> <referenceRange> <observationRange> <text>8.6-10.0</text> </observationRange> </ referenceRange> </observation> </component> <component> <observation moodCode="EVN" classCode="OBS"> <templateId root= "10.29.840.1.937388.10.20.22.4.2" /> <id nullFlavor="NA" /> < code codeSystem="local" code="CL" displayName="Chloride" /> < statusCode code="completed" /> <effectiveTime value="491935689099" /> <value unit="mEq/L" xsi:type="PQ" value="99" /> < referenceRange> <observationRange> <text>99-109</text> </observationRange> </referenceRange> </observation> </component> <component> <observation moodCode="EVN" classCode ="OBS"> <templateId root="216.840.1.683040.10.20.22.4.2" /> < id nullFlavor="NA" /> <code codeSystem="local" code="CO2" displayName= "CO2" /> <statusCode code="completed" /> <effectiveTime value= "670801275027" /> <value unit="mEq/L" xsi:type="PQ" value="22" /> <referenceRange> <observationRange> <text>22-32</ text> </observationRange> </referenceRange> </ observation> </component> <component> <observation moodCode= "EVN" classCode="OBS"> <templateId root="2.16.840.1.464736.10.20.22.4.2 " /> <id nullFlavor="NA" /> <code codeSystem="local" code= "CREAT" displayName="Creatinine" /> <statusCode code="completed" /> <effectiveTime value="424942847231" /> <value unit="mg/dL" xsi: type="PQ" value="1.49" /> <interpretationCode codeSystem="local" code= "*" /> <referenceRange> <observationRange> < text>0.64-1.27</text> </observationRange> </referenceRange> </observation> </component> <component> <observation moodCode="EVN" classCode="OBS"> <templateId root= "840.1.298879.10.2022.4.2" /> <id nullFlavor="NA" /> < code codeSystem="local" code="GLU" displayName="Glucose" /> < statusCode code="completed" /> <effectiveTime value="" /> <value unit="mg/dL" xsi:type="PQ" value="108" /> < interpretationCode codeSystem="local" code="*" /> <referenceRange> <observationRange> <text>70-100</text> </ observationRange> </referenceRange> </observation> </ component> <component> <observation moodCode="EVN" classCode="OBS"> <templateId root="840.1.253835.1022.4.2" /> <id nullFlavor="NA" /> <code codeSystem="local" code="K" displayName= "Potassium" /> <statusCode code="completed" /> <effectiveTime value="" /> <value unit="mEq/L" xsi:type="PQ" value="5.6" / > <interpretationCode codeSystem="local" code="*" /> < referenceRange> <observationRange> <text>3.6-5.1</text> </observationRange> </referenceRange> </observation > </component> <component> <observation moodCode="EVN" classCode="OBS"> <templateId root="840.1.637831.10.2022.4.2" /> <id nullFlavor="NA" /> <code codeSystem="local" code="NA" displayName="Sodium" /> <statusCode code="completed" /> < effectiveTime value="" /> <value unit="mEq/L" xsi:type="PQ " value="131" /> <interpretationCode codeSystem="local" code="*" /> <referenceRange> <observationRange> <text>136-144 </text> </observationRange> </referenceRange> </ observation> </component> </organizer> </entry> <entry> <organizer moodCode="EVN" classCode="BATTERY"> <templateId root= "16.840.1.613804.07.02.22.4.1" /> <id nullFlavor="NA" /> <code codeSystem="local" code="GFR" displayName="eGFR" /> <statusCode code= "completed" /> <component> <observation moodCode="EVN" classCode= "OBS"> <templateId root="16.840.1.324133.07.02.22.4.2" /> < id nullFlavor="NA" /> <code codeSystem="local" code="GFR" displayName= "eGFR" /> <statusCode code="completed" /> <effectiveTime value ="808194293295" /> <value unit="mL/min" xsi:type="PQ" value="50" /> <interpretationCode codeSystem="local" code="*" /> < referenceRange> <observationRange> <text>>60</text> </observationRange> </referenceRange> </observation> </component> </organizer> </entry> <entry> <organizer moodCode= "EVN" classCode="BATTERY"> <templateId root="10.29.840.1.877435.07.02.22.4.1 " /> <id nullFlavor="NA" /> <code codeSystem="local" code="K" displayName="Potassium" /> <statusCode code="completed" /> <component > <observation moodCode="EVN" classCode="OBS"> <templateId root= "10.29.840.1.238449.07.02.22.4.2" /> <id nullFlavor="NA" /> < code codeSystem="local" code="K" displayName="Potassium" /> < statusCode code="completed" /> <effectiveTime value="256064669834" /> <value unit="mEq/L" xsi:type="PQ" value="5.4" /> < interpretationCode codeSystem="local" code="*" /> <referenceRange> <observationRange> <text>3.6-5.1</text> </ observationRange> </referenceRange> </observation> </ component> </organizer> </entry> <entry> <organizer moodCode="EVN" classCode="BATTERY"> <templateId root="10.29.840.1.738226.10...4.1" /> <id nullFlavor="NA" /> <code codeSystem="local" code="LIPA" displayName="Lipase" /> <statusCode code="completed" /> <component> <observation moodCode="EVN" classCode="OBS"> <templateId root= "16.840.1.119907.10...4.2" /> <id nullFlavor="NA" /> < code codeSystem="local" code="LIPA" displayName="Lipase" /> < statusCode code="completed" /> <effectiveTime value="823525522794" /> <value unit="U/L" xsi:type="PQ" value="34" /> <referenceRange > <observationRange> <text>8-48</text> </ observationRange> </referenceRange> </observation> </ component> </organizer> </entry> <entry> <organizer moodCode="EVN" classCode="BATTERY"> <templateId root="16.840.1.297290.07.02.224.1" /> <id nullFlavor="NA" /> <code codeSystem="local" code="GFR" displayName ="eGFR" /> <statusCode code="completed" /> <component> < observation moodCode="EVN" classCode="OBS"> <templateId root= "840.1.406297.07.02.224.2" /> <id nullFlavor="NA" /> < code codeSystem="local" code="GFR" displayName="eGFR" /> <statusCode code="completed" /> <effectiveTime value="300928001875" /> < value unit="mL/min" xsi:type="PQ" value="59" /> <interpretationCode codeSystem="local" code="*" /> <referenceRange> < observationRange> <text>>60</text> </observationRange > </referenceRange> </observation> </component> </ organizer> </entry> <entry> <organizer moodCode="EVN" classCode="BATTERY"> <templateId root="840.1.203124.07.02.224.1" /> <id nullFlavor= "NA" /> <code codeSystem="local" code="CBCWD" displayName="CBC With Platelet and Differential" /> <statusCode code="completed" /> < component> <observation moodCode="EVN" classCode="OBS"> < templateId root="10.29.840.1.556249.07.02.224.2" /> <id nullFlavor="NA " /> <code codeSystem="local" code="HCT" displayName="HCT" /> <statusCode code="completed" /> <effectiveTime value="721207526083" /> <value unit="%" xsi:type="PQ" value="35.3" /> < interpretationCode codeSystem="local" code="*" /> <referenceRange> <observationRange> <text>42.0-52.0</text> </ observationRange> </referenceRange> </observation> </ component> <component> <observation moodCode="EVN" classCode="OBS"> <templateId root="16.840.1.407785.10.20.22.4.2" /> <id nullFlavor="NA" /> <code codeSystem="local" code="HGB" displayName="HGB " /> <statusCode code="completed" /> <effectiveTime value= "992032317322" /> <value unit="g/dL" xsi:type="PQ" value="11.9" /> <interpretationCode codeSystem="local" code="*" /> < referenceRange> <observationRange> <text>14.0-18.0</text > </observationRange> </referenceRange> </observation > </component> <component> <observation moodCode="EVN" classCode="OBS"> <templateId root="10.29.840.1.088954...4.2" /> <id nullFlavor="NA" /> <code codeSystem="local" code="MCH" displayName="MCH" /> <statusCode code="completed" /> < effectiveTime value="060053008305" /> <value unit="pg" xsi:type="PQ" value="30.6" /> <referenceRange> <observationRange> <text>27.0-32.0</text> </observationRange> </ referenceRange> </observation> </component> <component> <observation moodCode="EVN" classCode="OBS"> <templateId root= "10.29.840.1.190797.10.20.22.4.2" /> <id nullFlavor="NA" /> < code codeSystem="local" code="MCHC" displayName="MCHC" /> <statusCode code="completed" /> <effectiveTime value="086890669151" /> < value unit="g/dL" xsi:type="PQ" value="33.7" /> <referenceRange> <observationRange> <text>32.0-36.0</text> </ observationRange> </referenceRange> </observation> </ component> <component> <observation moodCode="EVN" classCode="OBS"> <templateId root="216.840.1.862567.10.20.22.4.2" /> <id nullFlavor="NA" /> <code codeSystem="local" code="MCV" displayName="MCV " /> <statusCode code="completed" /> <effectiveTime value= "737936537285" /> <value unit="fL" xsi:type="PQ" value="90.7" /> <referenceRange> <observationRange> <text>82.0-99.0< /text> </observationRange> </referenceRange> </ observation> </component> <component> <observation moodCode= "EVN" classCode="OBS"> <templateId root="16.840.1.522198.10.20.22.4.2 " /> <id nullFlavor="NA" /> <code codeSystem="local" code="MPV " displayName="MPV" /> <statusCode code="completed" /> < effectiveTime value="005865875028" /> <value unit="fL" xsi:type="PQ" value="11.4" /> <referenceRange> <observationRange> <text>9.4-12.3</text> </observationRange> </ referenceRange> </observation> </component> <component> <observation moodCode="EVN" classCode="OBS"> <templateId root= "10.29.840.1.347380.2022.4.2" /> <id nullFlavor="NA" /> < code codeSystem="local" code="PLT" displayName="Platelet Count" /> < statusCode code="completed" /> <effectiveTime value="683649914583" /> <value unit="K/uL" xsi:type="PQ" value="180" /> < referenceRange> <observationRange> <text>150-400</text> </observationRange> </referenceRange> </observation > </component> <component> <observation moodCode="EVN" classCode="OBS"> <templateId root="10.29.840.1.735001.07.02.22.4.2" /> <id nullFlavor="NA" /> <code codeSystem="local" code="RBC" displayName="RBC" /> <statusCode code="completed" /> < effectiveTime value="579904546287" /> <value unit="10*6/uL" xsi:type= "PQ" value="3.89" /> <interpretationCode codeSystem="local" code="*" / > <referenceRange> <observationRange> <text> 4.60-6.20</text> </observationRange> </referenceRange> </observation> </component> <component> <observation moodCode="EVN" classCode="OBS"> <templateId root= "10.29.840.1.858517.102022.4.2" /> <id nullFlavor="NA" /> < code codeSystem="local" code="RDW" displayName="RDW" /> <statusCode code="completed" /> <effectiveTime value="570488741077" /> < value unit="%" xsi:type="PQ" value="13.6" /> <referenceRange> <observationRange> <text>11.5-14.5</text> </ observationRange> </referenceRange> </observation> </ component> <component> <observation moodCode="EVN" classCode="OBS"> <templateId root="216.840.1.954261.10..22.4.2" /> <id nullFlavor="NA" /> <code codeSystem="local" code="WBCIR" displayName= "WBC" /> <statusCode code="completed" /> <effectiveTime value= "086118507869" /> <value unit="K/uL" xsi:type="PQ" value="8.2" /> <referenceRange> <observationRange> <text>4.8-10.8< /text> </observationRange> </referenceRange> </ observation> </component> </organizer> </entry> <entry> <organizer moodCode="EVN" classCode="BATTERY"> <templateId root= "216.840.1.275692.10..22.4.1" /> <id nullFlavor="NA" /> <code codeSystem="local" code="TROP" displayName="Troponin" /> <statusCode code= "completed" /> <component> <observation moodCode="EVN" classCode= "OBS"> <templateId root="216.840.1.779704.10..22.4.2" /> < id nullFlavor="NA" /> <code codeSystem="local" code="TROP" displayName= "Troponin" /> <statusCode code="completed" /> <effectiveTime value="949346984345" /> <value unit="ng/mL" xsi:type="PQ" value="< 0.05" /> <referenceRange> <observationRange> < text><0.06</text> </observationRange> </referenceRange> </observation> </component> </organizer> </entry> <entry> < organizer moodCode="EVN" classCode="BATTERY"> <templateId root= "10.29.840.1.026074.07.02.22.4.1" /> <id nullFlavor="NA" /> <code codeSystem="local" code="UA" displayName="Urinalysis with reflex microscopic" / > <statusCode code="completed" /> <component> <observation moodCode="EVN" classCode="OBS"> <templateId root= "840.1.849311.07.02.22.4.2" /> <id nullFlavor="NA" /> < code codeSystem="local" code="UAPP" displayName="Appearance" /> < statusCode code="completed" /> <effectiveTime value="410056484974" /> <value unit="NA" xsi:type="PQ" value="Sl Cloudy" /> < referenceRange> <observationRange> <text /> < /observationRange> </referenceRange> </observation> </ component> <component> <observation moodCode="EVN" classCode="OBS"> <templateId root="10.29.840.1.668762.07.02.22.4.2" /> <id nullFlavor="NA" /> <code codeSystem="local" code="UBIL" displayName= "Bilirubin" /> <statusCode code="completed" /> <effectiveTime value="104210169046" /> <value unit="NA" xsi:type="PQ" value="Negative " /> <referenceRange> <observationRange> <text> Negative</text> </observationRange> </referenceRange> </observation> </component> <component> <observation moodCode ="EVN" classCode="OBS"> <templateId root= "10.29.840.1.962284.07.02.22.4.2" /> <id nullFlavor="NA" /> < code codeSystem="local" code="UBLD" displayName="Blood" /> <statusCode code="completed" /> <effectiveTime value="" /> < value unit="NA" xsi:type="PQ" value="Negative" /> <referenceRange> <observationRange> <text>Negative</text> </ observationRange> </referenceRange> </observation> </ component> <component> <observation moodCode="EVN" classCode="OBS"> <templateId root="10.29.840.1.785733.10.22.4.2" /> <id nullFlavor="NA" /> <code codeSystem="local" code="UCOLR" displayName= "Color" /> <statusCode code="completed" /> <effectiveTime value="" /> <value unit="NA" xsi:type="PQ" value="Yellow" / > <referenceRange> <observationRange> <text /> </observationRange> </referenceRange> </observation > </component> <component> <observation moodCode="EVN" classCode="OBS"> <templateId root="10.29.840.1.334646...4.2" /> <id nullFlavor="NA" /> <code codeSystem="local" code="UGLU" displayName="Glucose, Urine" /> <statusCode code="completed" /> <effectiveTime value="667624538150" /> <value unit="" xsi:type="PQ" value="Negative" /> <referenceRange> <observationRange> <text>Negative</text> </observationRange> </ referenceRange> </observation> </component> <component> <observation moodCode="EVN" classCode="OBS"> <templateId root= "10.29.840.1.328737.07.02.22.4.2" /> <id nullFlavor="NA" /> < code codeSystem="local" code="UKET" displayName="Ketones" /> < statusCode code="completed" /> <effectiveTime value="" /> <value unit="" xsi:type="PQ" value="Negative" /> < referenceRange> <observationRange> <text>Negative</text > </observationRange> </referenceRange> </observation > </component> <component> <observation moodCode="EVN" classCode="OBS"> <templateId root="10.29.840.1.411164.07.02.22.4.2" /> <id nullFlavor="NA" /> <code codeSystem="local" code="ULEU" displayName="Leukocyte Esterase" /> <statusCode code="completed" /> <effectiveTime value="" /> <value unit="NA" xsi:type ="PQ" value="Negative" /> <referenceRange> <observationRange > <text>Negative</text> </observationRange> </ referenceRange> </observation> </component> <component> <observation moodCode="EVN" classCode="OBS"> <templateId root= "840.1.501233....4.2" /> <id nullFlavor="NA" /> < code codeSystem="local" code="UNIT" displayName="Nitrites" /> < statusCode code="completed" /> <effectiveTime value="" /> <value unit="NA" xsi:type="PQ" value="Negative" /> < referenceRange> <observationRange> <text>Negative</text > </observationRange> </referenceRange> </observation > </component> <component> <observation moodCode="EVN" classCode="OBS"> <templateId root="840.1.807084.1022.4.2" /> <id nullFlavor="NA" /> <code codeSystem="local" code="UPH" displayName="pH" /> <statusCode code="completed" /> < effectiveTime value="" /> <value unit="NA" xsi:type="PQ" value="5.0" /> <referenceRange> <observationRange> <text>5.0-8.0</text> </observationRange> </ referenceRange> </observation> </component> <component> <observation moodCode="EVN" classCode="OBS"> <templateId root= "216.840.1.259504.07.02.22.4.2" /> <id nullFlavor="NA" /> < code codeSystem="local" code="UPRO" displayName="Protein" /> < statusCode code="completed" /> <effectiveTime value="" /> <value unit="NA" xsi:type="PQ" value="Negative" /> < referenceRange> <observationRange> <text>Negative</text > </observationRange> </referenceRange> </observation > </component> <component> <observation moodCode="EVN" classCode="OBS"> <templateId root="16.840.1.469307.07.02.22.4.2" /> <id nullFlavor="NA" /> <code codeSystem="local" code="USPG" displayName="Specific [place]" /> <statusCode code="completed" /> <effectiveTime value="" /> <value unit="NA" xsi:type= "PQ" value="1.015" /> <referenceRange> <observationRange> <text>1.003-1.030</text> </observationRange> </ referenceRange> </observation> </component> <component> <observation moodCode="EVN" classCode="OBS"> <templateId root= "16.840.1.908779.10.4.2" /> <id nullFlavor="NA" /> < code codeSystem="local" code="UTYP" displayName="UA Collection type" /> <statusCode code="completed" /> <effectiveTime value="483419716647" / > <value unit="NA" xsi:type="PQ" value="Clean Catch" /> < referenceRange> <observationRange> <text /> < /observationRange> </referenceRange> </observation> </ component> <component> <observation moodCode="EVN" classCode="OBS"> <templateId root="16.840.1.409407.07.02.22.4.2" /> <id nullFlavor="NA" /> <code codeSystem="local" code="UURO" displayName= "Urobilinogen" /> <statusCode code="completed" /> < effectiveTime value="960799998125" /> <value unit="mg/dL" xsi:type="PQ " value="2.0" /> <interpretationCode codeSystem="local" code="*" /> <referenceRange> <observationRange> <text><1.0 </text> </observationRange> </referenceRange> </ observation> </component> </organizer> </entry> <entry> <organizer moodCode="EVN" classCode="BATTERY"> <templateId root= "16.840.1.799244.10.4.1" /> <id nullFlavor="NA" /> <code codeSystem="local" code="MG" displayName="Magnesium" /> <statusCode code= "completed" /> <component> <observation moodCode="EVN" classCode= "OBS"> <templateId root="2.16.840.1.709919.10..4.2" /> < id nullFlavor="NA" /> <code codeSystem="local" code="MG" displayName= "Magnesium" /> <statusCode code="completed" /> <effectiveTime value="244413919666" /> <value unit="mg/dL" xsi:type="PQ" value="1.9" / > <referenceRange> <observationRange> <text>1.8 -2.5</text> </observationRange> </referenceRange> </ observation> </component> </organizer> </entry> <entry> <organizer moodCode="EVN" classCode="BATTERY"> <templateId root= "216.840.1.661177.10..4.1" /> <id nullFlavor="NA" /> <code codeSystem="local" code="CMP" displayName="Comprehensive Metabolic Panel (CMP)" /> <statusCode code="completed" /> <component> <observation moodCode="EVN" classCode="OBS"> <templateId root= "2.16.840.1.686319.10..22.4.2" /> <id nullFlavor="NA" /> < code codeSystem="local" code="ALB" displayName="Albumin" /> < statusCode code="completed" /> <effectiveTime value="649578170136" /> <value unit="g/dL" xsi:type="PQ" value="3.2" /> < interpretationCode codeSystem="local" code="*" /> <referenceRange> <observationRange> <text>3.5-4.8</text> </ observationRange> </referenceRange> </observation> </ component> <component> <observation moodCode="EVN" classCode="OBS"> <templateId root="16.840.1.318907.07.02.22.4.2" /> <id nullFlavor="NA" /> <code codeSystem="local" code="ALP" displayName= "Alkaline Phosphatase" /> <statusCode code="completed" /> < effectiveTime value="" /> <value unit="U/L" xsi:type="PQ" value="78" /> <referenceRange> <observationRange> <text>26-104</text> </observationRange> </referenceRange > </observation> </component> <component> <observation moodCode="EVN" classCode="OBS"> <templateId root= "216.840.1.793714.07.02.22.4.2" /> <id nullFlavor="NA" /> < code codeSystem="local" code="ALT" displayName="ALT (SGPT)" /> < statusCode code="completed" /> <effectiveTime value="" /> <value unit="U/L" xsi:type="PQ" value="58" /> <referenceRange > <observationRange> <text>17-63</text> </ observationRange> </referenceRange> </observation> </ component> <component> <observation moodCode="EVN" classCode="OBS"> <templateId root="216.840.1.363786.07.02..4.2" /> <id nullFlavor="NA" /> <code codeSystem="local" code="AGAP" displayName= "Anion Gap" /> <statusCode code="completed" /> <effectiveTime value="" /> <value unit="mEq/L" xsi:type="PQ" value="5" /> <referenceRange> <observationRange> <text>3-20 </text> </observationRange> </referenceRange> </ observation> </component> <component> <observation moodCode= "EVN" classCode="OBS"> <templateId root="10.29.840.1.660919.10.20.22.4.2 " /> <id nullFlavor="NA" /> <code codeSystem="local" code="AST " displayName="AST (SGOT)" /> <statusCode code="completed" /> <effectiveTime value="" /> <value unit="U/L" xsi:type="PQ" value="40" /> <referenceRange> <observationRange> <text>15-41</text> </observationRange> </referenceRange > </observation> </component> <component> <observation moodCode="EVN" classCode="OBS"> <templateId root= "10.29.840.1.007782.10..4.2" /> <id nullFlavor="NA" /> < code codeSystem="local" code="BILIT" displayName="Bilirubin Total" /> < statusCode code="completed" /> <effectiveTime value="" /> <value unit="mg/dL" xsi:type="PQ" value="0.8" /> < referenceRange> <observationRange> <text>0.2-1.2</text> </observationRange> </referenceRange> </observation > </component> <component> <observation moodCode="EVN" classCode="OBS"> <templateId root="10.29.840.1.149265.10.22.4.2" /> <id nullFlavor="NA" /> <code codeSystem="local" code="BUN" displayName="BUN" /> <statusCode code="completed" /> < effectiveTime value="" /> <value unit="mg/dL" xsi:type="PQ " value="27" /> <interpretationCode codeSystem="local" code="*" /> <referenceRange> <observationRange> <text>4-20</ text> </observationRange> </referenceRange> </ observation> </component> <component> <observation moodCode= "EVN" classCode="OBS"> <templateId root="10.29.840.1.050378.10.20.22.4.2 " /> <id nullFlavor="NA" /> <code codeSystem="local" code="CA " displayName="Calcium" /> <statusCode code="completed" /> < effectiveTime value="687829436933" /> <value unit="mg/dL" xsi:type="PQ " value="8.2" /> <interpretationCode codeSystem="local" code="*" /> <referenceRange> <observationRange> <text>8.6- 10.0</text> </observationRange> </referenceRange> </ observation> </component> <component> <observation moodCode= "EVN" classCode="OBS"> <templateId root="840.1.376507.1022.4.2 " /> <id nullFlavor="NA" /> <code codeSystem="local" code="CL " displayName="Chloride" /> <statusCode code="completed" /> < effectiveTime value="[id number]" /> <value unit="mEq/L" xsi:type="PQ " value="107" /> <referenceRange> <observationRange> <text>99-109</text> </observationRange> </ referenceRange> </observation> </component> <component> <observation moodCode="EVN" classCode="OBS"> <templateId root= "10.29.840.1.422225.10.20.22.4.2" /> <id nullFlavor="NA" /> < code codeSystem="local" code="CO2" displayName="CO2" /> <statusCode code="completed" /> <effectiveTime value="" /> < value unit="mEq/L" xsi:type="PQ" value="22" /> <referenceRange> <observationRange> <text>22-32</text> </ observationRange> </referenceRange> </observation> </ component> <component> <observation moodCode="EVN" classCode="OBS"> <templateId root="10.29.840.1.486252.07.02.22.4.2" /> <id nullFlavor="NA" /> <code codeSystem="local" code="CREAT" displayName= "Creatinine" /> <statusCode code="completed" /> < effectiveTime value="" /> <value unit="mg/dL" xsi:type="PQ " value="0.93" /> <referenceRange> <observationRange> <text>0.64-1.27</text> </observationRange> </ referenceRange> </observation> </component> <component> <observation moodCode="EVN" classCode="OBS"> <templateId root= "10.29.840.1.962888.07.02.22.4.2" /> <id nullFlavor="NA" /> < code codeSystem="local" code="GLOB" displayName="Globulin" /> < statusCode code="completed" /> <effectiveTime value="" /> <value unit="g/dL" xsi:type="PQ" value="2.7" /> < referenceRange> <observationRange> <text>1.9-4.3</text> </observationRange> </referenceRange> </observation > </component> <component> <observation moodCode="EVN" classCode="OBS"> <templateId root="10.29.840.1.304948.07.02.22.4.2" /> <id nullFlavor="NA" /> <code codeSystem="local" code="GLU" displayName="Glucose" /> <statusCode code="completed" /> < effectiveTime value="" /> <value unit="mg/dL" xsi:type="PQ " value="116" /> <interpretationCode codeSystem="local" code="*" /> <referenceRange> <observationRange> <text>70-100< /text> </observationRange> </referenceRange> </ observation> </component> <component> <observation moodCode= "EVN" classCode="OBS"> <templateId root="216.840.1.052230.07.02.22.4.2 " /> <id nullFlavor="NA" /> <code codeSystem="local" code="K" displayName="Potassium" /> <statusCode code="completed" /> < effectiveTime value="" /> <value unit="mEq/L" xsi:type="PQ " value="4.0" /> <referenceRange> <observationRange> <text>3.6-5.1</text> </observationRange> </ referenceRange> </observation> </component> <component> <observation moodCode="EVN" classCode="OBS"> <templateId root= "216.840.1.214050.07.02.22.4.2" /> <id nullFlavor="NA" /> < code codeSystem="local" code="TP" displayName="Protein" /> <statusCode code="completed" /> <effectiveTime value="" /> < value unit="g/dL" xsi:type="PQ" value="5.9" /> <interpretationCode codeSystem="local" code="*" /> <referenceRange> < observationRange> <text>6.1-7.9</text> </ observationRange> </referenceRange> </observation> </ component> <component> <observation moodCode="EVN" classCode="OBS"> <templateId root="2.16.840.1.755623.10..4.2" /> <id nullFlavor="NA" /> <code codeSystem="local" code="NA" displayName= "Sodium" /> <statusCode code="completed" /> <effectiveTime value="[id number]" /> <value unit="mEq/L" xsi:type="PQ" value="134" / > <interpretationCode codeSystem="local" code="*" /> < referenceRange> <observationRange> <text>136-144</text> </observationRange> </referenceRange> </observation > </component> </organizer> </entry> <entry> <organizer moodCode= "EVN" classCode="BATTERY"> <templateId root="2.16.840.1.624952.10..22.4.1 " /> <id nullFlavor="NA" /> <code codeSystem="local" code="GFR" displayName="eGFR" /> <statusCode code="completed" /> <component> <observation moodCode="EVN" classCode="OBS"> <templateId root= "2.16.840.1.554445.10..22.4.2" /> <id nullFlavor="NA" /> < code codeSystem="local" code="GFR" displayName="eGFR" /> <statusCode code="completed" /> <effectiveTime value="061964311595" /> < value unit="mL/min" xsi:type="PQ" value=">60" /> <referenceRange> <observationRange> <text>>60</text> </ observationRange> </referenceRange> </observation> </ component> </organizer> </entry> <entry> <organizer moodCode="EVN" classCode="BATTERY"> <templateId root="16.840.1.234725.10..4.1" /> <id nullFlavor="NA" /> <code codeSystem="local" code="TROP" displayName="Troponin" /> <statusCode code="completed" /> <component> <observation moodCode="EVN" classCode="OBS"> <templateId root= "840.1.781756.07.02.22.4.2" /> <id nullFlavor="NA" /> < code codeSystem="local" code="TROP" displayName="Troponin" /> < statusCode code="completed" /> <effectiveTime value="366386832943" /> <value unit="ng/mL" xsi:type="PQ" value="<0.05" /> < referenceRange> <observationRange> <text><0.06</text > </observationRange> </referenceRange> </observation > </component> </organizer> </entry> <entry> <organizer moodCode= "EVN" classCode="BATTERY"> <templateId root="840.1.315474.07.02.22.4.1 " /> <id nullFlavor="NA" /> <code codeSystem="local" code="TROP" displayName="Troponin" /> <statusCode code="completed" /> <component> <observation moodCode="EVN" classCode="OBS"> <templateId root= "10.29.840.1.151675.07.02.22.4.2" /> <id nullFlavor="NA" /> < code codeSystem="local" code="TROP" displayName="Troponin" /> < statusCode code="completed" /> <effectiveTime value="599202312878" /> <value unit="ng/mL" xsi:type="PQ" value="<0.05" /> < referenceRange> <observationRange> <text><0.06</text > </observationRange> </referenceRange> </observation > </component> </organizer> </entry> <entry> <organizer moodCode= "EVN" classCode="BATTERY"> <templateId root="216.840.1.676964.10..22.4.1 " /> <id nullFlavor="NA" /> <code codeSystem="local" code="UDRGH" displayName="Urine Drug Screen" /> <statusCode code="completed" /> < component> <observation moodCode="EVN" classCode="OBS"> < templateId root="216.840.1.586500.10..22.4.2" /> <id nullFlavor="NA " /> <code codeSystem="local" code="UAMP1" displayName="Amph/Meth/ Ecstasy" /> <statusCode code="completed" /> <effectiveTime value="" /> <value unit="NA" xsi:type="PQ" value="Negative " /> <referenceRange> <observationRange> <text /> </observationRange> </referenceRange> </ observation> </component> <component> <observation moodCode= "EVN" classCode="OBS"> <templateId root="216.840.1.167139.10..22.4.2 " /> <id nullFlavor="NA" /> <code codeSystem="local" code= "UBAR1" displayName="Barbiturates" /> <statusCode code="completed" /> <effectiveTime value="981565677367" /> <value unit="NA" xsi: type="PQ" value="Negative" /> <referenceRange> < observationRange> <text /> </observationRange> </referenceRange> </observation> </component> <component> <observation moodCode="EVN" classCode="OBS"> <templateId root= "216.840.1.809572.07.02.22.4.2" /> <id nullFlavor="NA" /> < code codeSystem="local" code="UBEN1" displayName="Benzodiazepine" /> < statusCode code="completed" /> <effectiveTime value="" /> <value unit="NA" xsi:type="PQ" value="Negative" /> < referenceRange> <observationRange> <text /> < /observationRange> </referenceRange> </observation> </ component> <component> <observation moodCode="EVN" classCode="OBS"> <templateId root="16.840.1.019518.07.02.22.4.2" /> <id nullFlavor="NA" /> <code codeSystem="local" code="UCAN1" displayName= "Cannabinoid" /> <statusCode code="completed" /> < effectiveTime value="" /> <value unit="NA" xsi:type="PQ" value="Positive" /> <interpretationCode codeSystem="local" code="*" /> <referenceRange> <observationRange> <text /> </observationRange> </referenceRange> </observation> </component> <component> <observation moodCode="EVN" classCode ="OBS"> <templateId root="16.840.1.049361.07.02.22.4.2" /> < id nullFlavor="NA" /> <code codeSystem="local" code="UCOC1" displayName ="Cocaine" /> <statusCode code="completed" /> <effectiveTime value="" /> <value unit="NA" xsi:type="PQ" value="Negative " /> <referenceRange> <observationRange> <text /> </observationRange> </referenceRange> </ observation> </component> <component> <observation moodCode= "EVN" classCode="OBS"> <templateId root="216.840.1.146732.10.22.4.2 " /> <id nullFlavor="NA" /> <code codeSystem="local" code= "UMTD1" displayName="EDDP (Methadone met.)" /> <statusCode code= "completed" /> <effectiveTime value="" /> <value unit="NA" xsi:type="PQ" value="Negative" /> <referenceRange> <observationRange> <text /> </observationRange> </referenceRange> </observation> </component> <component> <observation moodCode="EVN" classCode="OBS"> <templateId root= "10.29.840.1.675138.07.02.22.4.2" /> <id nullFlavor="NA" /> < code codeSystem="local" code="UOPI1" displayName="Opiate" /> < statusCode code="completed" /> <effectiveTime value="" /> <value unit="NA" xsi:type="PQ" value="Negative" /> < referenceRange> <observationRange> <text /> < /observationRange> </referenceRange> </observation> </ component> <component> <observation moodCode="EVN" classCode="OBS"> <templateId root="10.29.840.1.985842.07.02.22.4.2" /> <id nullFlavor="NA" /> <code codeSystem="local" code="UPCP1" displayName= "Phencyclidine (PCP)" /> <statusCode code="completed" /> < effectiveTime value="" /> <value unit="NA" xsi:type="PQ" value="Negative" /> <referenceRange> <observationRange> <text /> </observationRange> </referenceRange> </observation> </component> </organizer> </entry> <entry> < organizer moodCode="EVN" classCode="BATTERY"> <templateId root= "840.1.021160.10.4.1" /> <id nullFlavor="NA" /> <code codeSystem="local" code="CBCND" displayName="CBC With Platelet No Differential" /> <statusCode code="completed" /> <component> <observation moodCode="EVN" classCode="OBS"> <templateId root= "840.1.699310.10..4.2" /> <id nullFlavor="NA" /> < code codeSystem="local" code="HCT" displayName="HCT" /> <statusCode code="completed" /> <effectiveTime value="246374854314" /> < value unit="%" xsi:type="PQ" value="36.3" /> <interpretationCode codeSystem="local" code="*" /> <referenceRange> < observationRange> <text>42.0-52.0</text> </ observationRange> </referenceRange> </observation> </ component> <component> <observation moodCode="EVN" classCode="OBS"> <templateId root="840.1.149455.10.4.2" /> <id nullFlavor="NA" /> <code codeSystem="local" code="HGB" displayName="HGB " /> <statusCode code="completed" /> <effectiveTime value= "620804331195" /> <value unit="g/dL" xsi:type="PQ" value="12.3" /> <interpretationCode codeSystem="local" code="*" /> < referenceRange> <observationRange> <text>14.0-18.0</text > </observationRange> </referenceRange> </observation > </component> <component> <observation moodCode="EVN" classCode="OBS"> <templateId root="216.840.1.514184.10..22.4.2" /> <id nullFlavor="NA" /> <code codeSystem="local" code="MCH" displayName="MCH" /> <statusCode code="completed" /> < effectiveTime value="813523281283" /> <value unit="pg" xsi:type="PQ" value="30.5" /> <referenceRange> <observationRange> <text>27.0-32.0</text> </observationRange> </ referenceRange> </observation> </component> <component> <observation moodCode="EVN" classCode="OBS"> <templateId root= "10.29.840.1.196472.10..4.2" /> <id nullFlavor="NA" /> < code codeSystem="local" code="MCHC" displayName="MCHC" /> <statusCode code="completed" /> <effectiveTime value="996949629170" /> < value unit="g/dL" xsi:type="PQ" value="33.9" /> <referenceRange> <observationRange> <text>32.0-36.0</text> </ observationRange> </referenceRange> </observation> </ component> <component> <observation moodCode="EVN" classCode="OBS"> <templateId root="16.840.1.420163.10.20.22.4.2" /> <id nullFlavor="NA" /> <code codeSystem="local" code="MCV" displayName="MCV " /> <statusCode code="completed" /> <effectiveTime value= "333633741196" /> <value unit="fL" xsi:type="PQ" value="90.1" /> <referenceRange> <observationRange> <text>82.0-99.0< /text> </observationRange> </referenceRange> </ observation> </component> <component> <observation moodCode= "EVN" classCode="OBS"> <templateId root="16.840.1.520572.10..22.4.2 " /> <id nullFlavor="NA" /> <code codeSystem="local" code="MPV " displayName="MPV" /> <statusCode code="completed" /> < effectiveTime value="061936391187" /> <value unit="fL" xsi:type="PQ" value="10.4" /> <referenceRange> <observationRange> <text>9.4-12.3</text> </observationRange> </ referenceRange> </observation> </component> <component> <observation moodCode="EVN" classCode="OBS"> <templateId root= "10.29.840.1.480497...22.4.2" /> <id nullFlavor="NA" /> < code codeSystem="local" code="PLT" displayName="Platelet Count" /> < statusCode code="completed" /> <effectiveTime value="638368114673" /> <value unit="K/uL" xsi:type="PQ" value="177" /> < referenceRange> <observationRange> <text>150-400</text> </observationRange> </referenceRange> </observation > </component> <component> <observation moodCode="EVN" classCode="OBS"> <templateId root="10.29.840.1.299079.20.22.4.2" /> <id nullFlavor="NA" /> <code codeSystem="local" code="RBC" displayName="RBC" /> <statusCode code="completed" /> < effectiveTime value="493687641766" /> <value unit="10*6/uL" xsi:type= "PQ" value="4.03" /> <interpretationCode codeSystem="local" code="*" / > <referenceRange> <observationRange> <text> 4.60-6.20</text> </observationRange> </referenceRange> </observation> </component> <component> <observation moodCode="EVN" classCode="OBS"> <templateId root= "216.840.1.000776.07.02.22.4.2" /> <id nullFlavor="NA" /> < code codeSystem="local" code="RDW" displayName="RDW" /> <statusCode code="completed" /> <effectiveTime value="657905574358" /> < value unit="%" xsi:type="PQ" value="13.7" /> <referenceRange> <observationRange> <text>11.5-14.5</text> </ observationRange> </referenceRange> </observation> </ component> <component> <observation moodCode="EVN" classCode="OBS"> <templateId root="10.29.840.1.200298.22.4.2" /> <id nullFlavor="NA" /> <code codeSystem="local" code="WBCIR" displayName= "WBC" /> <statusCode code="completed" /> <effectiveTime value= "710255106944" /> <value unit="K/uL" xsi:type="PQ" value="8.0" /> <referenceRange> <observationRange> <text>4.8-10.8< /text> </observationRange> </referenceRange> </ observation> </component> </organizer> </entry> <entry> <organizer moodCode="EVN" classCode="BATTERY"> <templateId root= "216.840.1.210568.10..22.4.1" /> <id nullFlavor="NA" /> <code codeSystem="local" code="RENAL" displayName="Renal Function Panel" /> < statusCode code="completed" /> <component> <observation moodCode= "EVN" classCode="OBS"> <templateId root="216.840.1.645344.10...4.2 " /> <id nullFlavor="NA" /> <code codeSystem="local" code="ALB " displayName="Albumin" /> <statusCode code="completed" /> < effectiveTime value="" /> <value unit="g/dL" xsi:type="PQ" value="3.0" /> <interpretationCode codeSystem="local" code="*" /> <referenceRange> <observationRange> <text>3.5-4.8</ text> </observationRange> </referenceRange> </ observation> </component> <component> <observation moodCode= "EVN" classCode="OBS"> <templateId root="16.840.1.004145..22.4.2 " /> <id nullFlavor="NA" /> <code codeSystem="local" code= "AGAP" displayName="Anion Gap" /> <statusCode code="completed" /> <effectiveTime value="" /> <value unit="mEq/L" xsi: type="PQ" value="8" /> <referenceRange> <observationRange> <text>3-20</text> </observationRange> </ referenceRange> </observation> </component> <component> <observation moodCode="EVN" classCode="OBS"> <templateId root= "16.840.1.892219.10..4.2" /> <id nullFlavor="NA" /> < code codeSystem="local" code="BUN" displayName="BUN" /> <statusCode code="completed" /> <effectiveTime value="" /> < value unit="mg/dL" xsi:type="PQ" value="27" /> <interpretationCode codeSystem="local" code="*" /> <referenceRange> < observationRange> <text>4-20</text> </observationRange> </referenceRange> </observation> </component> < component> <observation moodCode="EVN" classCode="OBS"> < templateId root="10.29.840.1.861582.07.02.22.4.2" /> <id nullFlavor="NA " /> <code codeSystem="local" code="CA" displayName="Calcium" /> <statusCode code="completed" /> <effectiveTime value=" " /> <value unit="mg/dL" xsi:type="PQ" value="8.3" /> < interpretationCode codeSystem="local" code="*" /> <referenceRange> <observationRange> <text>8.6-10.0</text> </ observationRange> </referenceRange> </observation> </ component> <component> <observation moodCode="EVN" classCode="OBS"> <templateId root="10.29.840.1.526851.07.02.22.4.2" /> <id nullFlavor="NA" /> <code codeSystem="local" code="CL" displayName= "Chloride" /> <statusCode code="completed" /> <effectiveTime value="" /> <value unit="mEq/L" xsi:type="PQ" value="105" / > <referenceRange> <observationRange> <text>99- 109</text> </observationRange> </referenceRange> </ observation> </component> <component> <observation moodCode= "EVN" classCode="OBS"> <templateId root="216.840.1.787342.10..4.2 " /> <id nullFlavor="NA" /> <code codeSystem="local" code="CO2 " displayName="CO2" /> <statusCode code="completed" /> < effectiveTime value="" /> <value unit="mEq/L" xsi:type="PQ " value="21" /> <interpretationCode codeSystem="local" code="*" /> <referenceRange> <observationRange> <text>22-32</ text> </observationRange> </referenceRange> </ observation> </component> <component> <observation moodCode= "EVN" classCode="OBS"> <templateId root="10.29.840.1.906387.07.02.22.4.2 " /> <id nullFlavor="NA" /> <code codeSystem="local" code= "CREAT" displayName="Creatinine" /> <statusCode code="completed" /> <effectiveTime value="" /> <value unit="mg/dL" xsi: type="PQ" value="0.88" /> <referenceRange> <observationRange > <text>0.64-1.27</text> </observationRange> </ referenceRange> </observation> </component> <component> <observation moodCode="EVN" classCode="OBS"> <templateId root= "16.840.1.421312.10..22.4.2" /> <id nullFlavor="NA" /> < code codeSystem="local" code="GLU" displayName="Glucose" /> < statusCode code="completed" /> <effectiveTime value="" /> <value unit="mg/dL" xsi:type="PQ" value="103" /> < interpretationCode codeSystem="local" code="*" /> <referenceRange> <observationRange> <text>70-100</text> </ observationRange> </referenceRange> </observation> </ component> <component> <observation moodCode="EVN" classCode="OBS"> <templateId root="2.16.840.1.474484.10...4.2" /> <id nullFlavor="NA" /> <code codeSystem="local" code="PHOS" displayName= "Phosphorus" /> <statusCode code="completed" /> < effectiveTime value="" /> <value unit="mg/dL" xsi:type="PQ " value="3.2" /> <referenceRange> <observationRange> <text>2.4-4.7</text> </observationRange> </ referenceRange> </observation> </component> <component> <observation moodCode="EVN" classCode="OBS"> <templateId root= "2.16.840.1.077269.10..22.4.2" /> <id nullFlavor="NA" /> < code codeSystem="local" code="K" displayName="Potassium" /> < statusCode code="completed" /> <effectiveTime value="" /> <value unit="mEq/L" xsi:type="PQ" value="3.8" /> < referenceRange> <observationRange> <text>3.6-5.1</text> </observationRange> </referenceRange> </observation > </component> <component> <observation moodCode="EVN" classCode="OBS"> <templateId root="2.16.840.1.381644.10.20.22.4.2" /> <id nullFlavor="NA" /> <code codeSystem="local" code="NA" displayName="Sodium" /> <statusCode code="completed" /> < effectiveTime value="" /> <value unit="mEq/L" xsi:type="PQ " value="134" /> <interpretationCode codeSystem="local" code="*" /> <referenceRange> <observationRange> <text>136-144 </text> </observationRange> </referenceRange> </ observation> </component> </organizer> </entry> <entry> <organizer moodCode="EVN" classCode="BATTERY"> <templateId root= "2.16.840.1.483921.10..22.4.1" /> <id nullFlavor="NA" /> <code codeSystem="local" code="MG" displayName="Magnesium" /> <statusCode code= "completed" /> <component> <observation moodCode="EVN" classCode= "OBS"> <templateId root="2.16.840.1.346689.10.20.22.4.2" /> < id nullFlavor="NA" /> <code codeSystem="local" code="MG" displayName= "Magnesium" /> <statusCode code="completed" /> <effectiveTime value="" /> <value unit="mg/dL" xsi:type="PQ" value="1.9" / > <referenceRange> <observationRange> <text>1.8 -2.5</text> </observationRange> </referenceRange> </ observation> </component> </organizer> </entry> <entry> <organizer moodCode="EVN" classCode="BATTERY"> <templateId root= "10.29.840.1.228163.10.4.1" /> <id nullFlavor="NA" /> <code codeSystem="local" code="GFR" displayName="eGFR" /> <statusCode code= "completed" /> <component> <observation moodCode="EVN" classCode= "OBS"> <templateId root="840.1.019580.07.02.22.4.2" /> < id nullFlavor="NA" /> <code codeSystem="local" code="GFR" displayName= "eGFR" /> <statusCode code="completed" /> <effectiveTime value ="476979913357" /> <value unit="mL/min" xsi:type="PQ" value=">60" / > <referenceRange> <observationRange> <text>&gt ;60</text> </observationRange> </referenceRange> </ observation> </component> </organizer> </entry> <entry> <organizer moodCode="EVN" classCode="BATTERY"> <templateId root= "840.1.261021.07.02.22.4.1" /> <id nullFlavor="NA" /> <code codeSystem="local" code="CBCND" displayName="CBC With Platelet No Differential" /> <statusCode code="completed" /> <component> <observation moodCode="EVN" classCode="OBS"> <templateId root= "10.29.840.1.035669.22.4.2" /> <id nullFlavor="NA" /> < code codeSystem="local" code="HCT" displayName="HCT" /> <statusCode code="completed" /> <effectiveTime value="232603085451" /> < value unit="%" xsi:type="PQ" value="38.0" /> <interpretationCode codeSystem="local" code="*" /> <referenceRange> < observationRange> <text>42.0-52.0</text> </ observationRange> </referenceRange> </observation> </ component> <component> <observation moodCode="EVN" classCode="OBS"> <templateId root="216.840.1.991598.10.20.22.4.2" /> <id nullFlavor="NA" /> <code codeSystem="local" code="HGB" displayName="HGB " /> <statusCode code="completed" /> <effectiveTime value= "742399496490" /> <value unit="g/dL" xsi:type="PQ" value="12.9" /> <interpretationCode codeSystem="local" code="*" /> < referenceRange> <observationRange> <text>14.0-18.0</text > </observationRange> </referenceRange> </observation > </component> <component> <observation moodCode="EVN" classCode="OBS"> <templateId root="10.29.840.1.349368.22.4.2" /> <id nullFlavor="NA" /> <code codeSystem="local" code="MCH" displayName="MCH" /> <statusCode code="completed" /> < effectiveTime value="622532390102" /> <value unit="pg" xsi:type="PQ" value="31.2" /> <referenceRange> <observationRange> <text>27.0-32.0</text> </observationRange> </ referenceRange> </observation> </component> <component> <observation moodCode="EVN" classCode="OBS"> <templateId root= "10.29.840.1.849979.10.20.22.4.2" /> <id nullFlavor="NA" /> < code codeSystem="local" code="MCHC" displayName="MCHC" /> <statusCode code="completed" /> <effectiveTime value="157488279711" /> < value unit="g/dL" xsi:type="PQ" value="33.9" /> <referenceRange> <observationRange> <text>32.0-36.0</text> </ observationRange> </referenceRange> </observation> </ component> <component> <observation moodCode="EVN" classCode="OBS"> <templateId root="216.840.1.651138.10.20.22.4.2" /> <id nullFlavor="NA" /> <code codeSystem="local" code="MCV" displayName="MCV " /> <statusCode code="completed" /> <effectiveTime value= "520009717114" /> <value unit="fL" xsi:type="PQ" value="91.8" /> <referenceRange> <observationRange> <text>82.0-99.0< /text> </observationRange> </referenceRange> </ observation> </component> <component> <observation moodCode= "EVN" classCode="OBS"> <templateId root="216.840.1.661904.10..22.4.2 " /> <id nullFlavor="NA" /> <code codeSystem="local" code="MPV " displayName="MPV" /> <statusCode code="completed" /> < effectiveTime value="241074897615" /> <value unit="fL" xsi:type="PQ" value="10.6" /> <referenceRange> <observationRange> <text>9.4-12.3</text> </observationRange> </ referenceRange> </observation> </component> <component> <observation moodCode="EVN" classCode="OBS"> <templateId root= "16.840.1.000846.10.20.22.4.2" /> <id nullFlavor="NA" /> < code codeSystem="local" code="PLT" displayName="Platelet Count" /> < statusCode code="completed" /> <effectiveTime value="418850016688" /> <value unit="K/uL" xsi:type="PQ" value="221" /> < referenceRange> <observationRange> <text>150-400</text> </observationRange> </referenceRange> </observation > </component> <component> <observation moodCode="EVN" classCode="OBS"> <templateId root="10.29.840.1.026204.102022.4.2" /> <id nullFlavor="NA" /> <code codeSystem="local" code="RBC" displayName="RBC" /> <statusCode code="completed" /> < effectiveTime value="573894402857" /> <value unit="10*6/uL" xsi:type= "PQ" value="4.14" /> <interpretationCode codeSystem="local" code="*" / > <referenceRange> <observationRange> <text> 4.60-6.20</text> </observationRange> </referenceRange> </observation> </component> <component> <observation moodCode="EVN" classCode="OBS"> <templateId root= "10.29.840.1.695205.10.20.22.4.2" /> <id nullFlavor="NA" /> < code codeSystem="local" code="RDW" displayName="RDW" /> <statusCode code="completed" /> <effectiveTime value="074510390573" /> < value unit="%" xsi:type="PQ" value="14.0" /> <referenceRange> <observationRange> <text>11.5-14.5</text> </ observationRange> </referenceRange> </observation> </ component> <component> <observation moodCode="EVN" classCode="OBS"> <templateId root="16.840.1.733821.10.20.22.4.2" /> <id nullFlavor="NA" /> <code codeSystem="local" code="WBCIR" displayName= "WBC" /> <statusCode code="completed" /> <effectiveTime value= "814637026035" /> <value unit="K/uL" xsi:type="PQ" value="8.9" /> <referenceRange> <observationRange> <text>4.8-10.8< /text> </observationRange> </referenceRange> </ observation> </component> </organizer> </entry> <entry> <organizer moodCode="EVN" classCode="BATTERY"> <templateId root= "16.840.1.538669.10.20.22.4.1" /> <id nullFlavor="NA" /> <code codeSystem="local" code="LACID" displayName="Lactic Acid Venous" /> < statusCode code="completed" /> <component> <observation moodCode= "EVN" classCode="OBS"> <templateId root="16.840.1.694329.10.20.22.4.2 " /> <id nullFlavor="NA" /> <code codeSystem="local" code= "LACID" displayName="Lactic Acid Venous" /> <statusCode code="completed " /> <effectiveTime value="762060001262" /> <value unit="mEq/L " xsi:type="PQ" value="1.2" /> <referenceRange> < observationRange> <text>0.5-2.0</text> </ observationRange> </referenceRange> </observation> </ component> </organizer> </entry> <entry> <organizer moodCode="EVN" classCode="BATTERY"> <templateId root="10.29.840.1.729687.10.4.1" /> <id nullFlavor="NA" /> <code codeSystem="local" code="BNP" displayName ="B-Type Natriuretic Peptide" /> <statusCode code="completed" /> < component> <observation moodCode="EVN" classCode="OBS"> < templateId root="840.1.397300.07.02.224.2" /> <id nullFlavor="NA " /> <code codeSystem="local" code="BNP" displayName="B-Type Natriuretic Peptide" /> <statusCode code="completed" /> < effectiveTime value="978005965352" /> <value unit="pg/mL" xsi:type="PQ " value="34" /> <referenceRange> <observationRange> <text>0-99</text> </observationRange> </referenceRange > </observation> </component> </organizer> </entry> <entry> <organizer moodCode="EVN" classCode="BATTERY"> <templateId root= "10.29.840.1.554483.07.02.22.4.1" /> <id nullFlavor="NA" /> <code codeSystem="local" code="TROP" displayName="Troponin" /> <statusCode code= "completed" /> <component> <observation moodCode="EVN" classCode= "OBS"> <templateId root="10.29.840.1.026881.07.02.22.4.2" /> < id nullFlavor="NA" /> <code codeSystem="local" code="TROP" displayName= "Troponin" /> <statusCode code="completed" /> <effectiveTime value="583568173224" /> <value unit="ng/mL" xsi:type="PQ" value="< 0.05" /> <referenceRange> <observationRange> < text><0.06</text> </observationRange> </referenceRange> </observation> </component> </organizer> </entry> <entry> < organizer moodCode="EVN" classCode="BATTERY"> <templateId root= "16.840.1.222264.10..22.4.1" /> <id nullFlavor="NA" /> <code codeSystem="local" code="BMP" displayName="Basic Metabolic Panel (BMP)" /> <statusCode code="completed" /> <component> <observation moodCode= "EVN" classCode="OBS"> <templateId root="216.840.1.518590.10...4.2 " /> <id nullFlavor="NA" /> <code codeSystem="local" code= "AGAP" displayName="Anion Gap" /> <statusCode code="completed" /> <effectiveTime value="479429652573" /> <value unit="mEq/L" xsi: type="PQ" value="12" /> <referenceRange> <observationRange> <text>3-20</text> </observationRange> </ referenceRange> </observation> </component> <component> <observation moodCode="EVN" classCode="OBS"> <templateId root= "16.840.1.414050.10..22.4.2" /> <id nullFlavor="NA" /> < code codeSystem="local" code="BUN" displayName="BUN" /> <statusCode code="completed" /> <effectiveTime value="" /> < value unit="mg/dL" xsi:type="PQ" value="44" /> <interpretationCode codeSystem="local" code="*" /> <referenceRange> < observationRange> <text>4-20</text> </observationRange> </referenceRange> </observation> </component> < component> <observation moodCode="EVN" classCode="OBS"> < templateId root="16.840.1.251024.10.2022.4.2" /> <id nullFlavor="NA " /> <code codeSystem="local" code="CA" displayName="Calcium" /> <statusCode code="completed" /> <effectiveTime value="724864949368 " /> <value unit="mg/dL" xsi:type="PQ" value="8.4" /> < interpretationCode codeSystem="local" code="*" /> <referenceRange> <observationRange> <text>8.6-10.0</text> </ observationRange> </referenceRange> </observation> </ component> <component> <observation moodCode="EVN" classCode="OBS"> <templateId root="840.1.591252.1022.4.2" /> <id nullFlavor="NA" /> <code codeSystem="local" code="CL" displayName= "Chloride" /> <statusCode code="completed" /> <effectiveTime value="" /> <value unit="mEq/L" xsi:type="PQ" value="101" / > <referenceRange> <observationRange> <text>99- 109</text> </observationRange> </referenceRange> </ observation> </component> <component> <observation moodCode= "EVN" classCode="OBS"> <templateId root="10.29.840.1.327386.10.2022.4.2 " /> <id nullFlavor="NA" /> <code codeSystem="local" code="CO2 " displayName="CO2" /> <statusCode code="completed" /> < effectiveTime value="" /> <value unit="mEq/L" xsi:type="PQ " value="19" /> <interpretationCode codeSystem="local" code="*" /> <referenceRange> <observationRange> <text>22-32</ text> </observationRange> </referenceRange> </ observation> </component> <component> <observation moodCode= "EVN" classCode="OBS"> <templateId root="2.16.840.1.921735.10...4.2 " /> <id nullFlavor="NA" /> <code codeSystem="local" code= "CREAT" displayName="Creatinine" /> <statusCode code="completed" /> <effectiveTime value="" /> <value unit="mg/dL" xsi: type="PQ" value="1.25" /> <referenceRange> <observationRange > <text>0.64-1.27</text> </observationRange> </ referenceRange> </observation> </component> <component> <observation moodCode="EVN" classCode="OBS"> <templateId root= "216.840.1.097784.10..22.4.2" /> <id nullFlavor="NA" /> < code codeSystem="local" code="GLU" displayName="Glucose" /> < statusCode code="completed" /> <effectiveTime value="" /> <value unit="mg/dL" xsi:type="PQ" value="76" /> < referenceRange> <observationRange> <text>70-100</text> </observationRange> </referenceRange> </observation> </component> <component> <observation moodCode="EVN" classCode ="OBS"> <templateId root="840.1.772462.10.22.4.2" /> < id nullFlavor="NA" /> <code codeSystem="local" code="K" displayName= "Potassium" /> <statusCode code="completed" /> <effectiveTime value="051596972744" /> <value unit="mEq/L" xsi:type="PQ" value="4.2" / > <referenceRange> <observationRange> <text>3.6 -5.1</text> </observationRange> </referenceRange> </ observation> </component> <component> <observation moodCode= "EVN" classCode="OBS"> <templateId root="840.1.237557.07.02.22.4.2 " /> <id nullFlavor="NA" /> <code codeSystem="local" code="NA " displayName="Sodium" /> <statusCode code="completed" /> < effectiveTime value="620456910151" /> <value unit="mEq/L" xsi:type="PQ " value="132" /> <interpretationCode codeSystem="local" code="*" /> <referenceRange> <observationRange> <text>136-144 </text> </observationRange> </referenceRange> </ observation> </component> </organizer> </entry> <entry> <organizer moodCode="EVN" classCode="BATTERY"> <templateId root= "840.1.946611.07.02.22.4.1" /> <id nullFlavor="NA" /> <code codeSystem="local" code="MG" displayName="Magnesium" /> <statusCode code= "completed" /> <component> <observation moodCode="EVN" classCode= "OBS"> <templateId root="840.1.801260.07.02.22.4.2" /> < id nullFlavor="NA" /> <code codeSystem="local" code="MG" displayName= "Magnesium" /> <statusCode code="completed" /> <effectiveTime value="991026907400" /> <value unit="mg/dL" xsi:type="PQ" value="1.8" / > <referenceRange> <observationRange> <text>1.8 -2.5</text> </observationRange> </referenceRange> </ observation> </component> </organizer> </entry> <entry> <organizer moodCode="EVN" classCode="BATTERY"> <templateId root= "16.840.1.882767.07.02.22.4.1" /> <id nullFlavor="NA" /> <code codeSystem="local" code="GFR" displayName="eGFR" /> <statusCode code= "completed" /> <component> <observation moodCode="EVN" classCode= "OBS"> <templateId root="16.840.1.654839.07.02.22.4.2" /> < id nullFlavor="NA" /> <code codeSystem="local" code="GFR" displayName= "eGFR" /> <statusCode code="completed" /> <effectiveTime value ="674131765581" /> <value unit="mL/min" xsi:type="PQ" value=">60" / > <referenceRange> <observationRange> <text>&gt ;60</text> </observationRange> </referenceRange> </ observation> </component> </organizer> </entry> <entry> <organizer moodCode="EVN" classCode="BATTERY"> <templateId root= "16.840.1.626959.07.02.22.4.1" /> <id nullFlavor="NA" /> <code codeSystem="local" code="LIVER" displayName="Hepatic Function Panel" /> < statusCode code="completed" /> <component> <observation moodCode= "EVN" classCode="OBS"> <templateId root="10.29.840.1.989667.07.02.22.4.2 " /> <id nullFlavor="NA" /> <code codeSystem="local" code="ALB " displayName="Albumin" /> <statusCode code="completed" /> < effectiveTime value="" /> <value unit="g/dL" xsi:type="PQ" value="3.5" /> <referenceRange> <observationRange> <text>3.5-4.8</text> </observationRange> </ referenceRange> </observation> </component> <component> <observation moodCode="EVN" classCode="OBS"> <templateId root= "840.1.763231.07.02.22.4.2" /> <id nullFlavor="NA" /> < code codeSystem="local" code="ALP" displayName="Alkaline Phosphatase" /> <statusCode code="completed" /> <effectiveTime value="" /> <value unit="U/L" xsi:type="PQ" value="78" /> < referenceRange> <observationRange> <text>26-104</text> </observationRange> </referenceRange> </observation> </component> <component> <observation moodCode="EVN" classCode ="OBS"> <templateId root="10.29.840.1.891400.07.02.22.4.2" /> < id nullFlavor="NA" /> <code codeSystem="local" code="ALT" displayName= "ALT (SGPT)" /> <statusCode code="completed" /> < effectiveTime value="" /> <value unit="U/L" xsi:type="PQ" value="46" /> <referenceRange> <observationRange> <text>17-63</text> </observationRange> </referenceRange > </observation> </component> <component> <observation moodCode="EVN" classCode="OBS"> <templateId root= "10.29.840.1.095104.10..22.4.2" /> <id nullFlavor="NA" /> < code codeSystem="local" code="AST" displayName="AST (SGOT)" /> < statusCode code="completed" /> <effectiveTime value="148660147400" /> <value unit="U/L" xsi:type="PQ" value="44" /> < interpretationCode codeSystem="local" code="*" /> <referenceRange> <observationRange> <text>15-41</text> </ observationRange> </referenceRange> </observation> </ component> <component> <observation moodCode="EVN" classCode="OBS"> <templateId root="10.29.840.1.125391...4.2" /> <id nullFlavor="NA" /> <code codeSystem="local" code="BILID" displayName= "Bilirubin Direct" /> <statusCode code="completed" /> < effectiveTime value="342043958278" /> <value unit="mg/dL" xsi:type="PQ " value="0.2" /> <referenceRange> <observationRange> <text>0.0-0.2</text> </observationRange> </ referenceRange> </observation> </component> <component> <observation moodCode="EVN" classCode="OBS"> <templateId root= "10.29.840.1.809206.10..22.4.2" /> <id nullFlavor="NA" /> < code codeSystem="local" code="BILII" displayName="Bilirubin Indirect" /> <statusCode code="completed" /> <effectiveTime value="520946422370" /> <value unit="mg/dL" xsi:type="PQ" value="0.2" /> < referenceRange> <observationRange> <text>0.0-1.0</text> </observationRange> </referenceRange> </observation > </component> <component> <observation moodCode="EVN" classCode="OBS"> <templateId root="216.840.1.204753.10..22.4.2" /> <id nullFlavor="NA" /> <code codeSystem="local" code="BILIT" displayName="Bilirubin Total" /> <statusCode code="completed" /> <effectiveTime value="480063906900" /> <value unit="mg/dL" xsi:type ="PQ" value="0.4" /> <referenceRange> <observationRange> <text>0.2-1.2</text> </observationRange> </ referenceRange> </observation> </component> <component> <observation moodCode="EVN" classCode="OBS"> <templateId root= "216.840.1.450491.10.20.22.4.2" /> <id nullFlavor="NA" /> < code codeSystem="local" code="TP" displayName="Protein" /> <statusCode code="completed" /> <effectiveTime value="622760714735" /> < value unit="g/dL" xsi:type="PQ" value="6.5" /> <referenceRange> <observationRange> <text>6.1-7.9</text> </ observationRange> </referenceRange> </observation> </ component> </organizer> </entry> <entry> <organizer moodCode="EVN" classCode="BATTERY"> <templateId root="10.29.840.1.536212.10..22.4.1" /> <id nullFlavor="NA" /> <code codeSystem="local" code="ABGRT" displayName="Blood Gases, Arterial (RT)" /> <statusCode code="completed" / > <component> <observation moodCode="EVN" classCode="OBS"> <templateId root="10.29.840.1.298862.10..22.4.2" /> <id nullFlavor="NA " /> <code codeSystem="local" code="YNES" displayName="Arterial Base Excess" /> <statusCode code="completed" /> <effectiveTime value="789726173458" /> <value unit="NA" xsi:type="PQ" value="-3" /> <interpretationCode codeSystem="local" code="*" /> < referenceRange> <observationRange> <text>0-2</text> </observationRange> </referenceRange> </observation> </component> <component> <observation moodCode="EVN" classCode= "OBS"> <templateId root="10.29.840.1.296814.10...4.2" /> < id nullFlavor="NA" /> <code codeSystem="local" code="AHCO3" displayName ="Arterial Bicarbonate" /> <statusCode code="completed" /> < effectiveTime value="159654234958" /> <value unit="mEq/L" xsi:type="PQ " value="21" /> <interpretationCode codeSystem="local" code="*" /> <referenceRange> <observationRange> <text>22-26</ text> </observationRange> </referenceRange> </ observation> </component> <component> <observation moodCode= "EVN" classCode="OBS"> <templateId root="840.1.823744.10.20.22.4.2 " /> <id nullFlavor="NA" /> <code codeSystem="local" code= "AOSAT" displayName="Arterial O2 Saturation" /> <statusCode code= "completed" /> <effectiveTime value="166351601503" /> <value unit="%" xsi:type="PQ" value="92.3" /> <referenceRange> <observationRange> <text>90.0-97.0</text> </ observationRange> </referenceRange> </observation> </ component> <component> <observation moodCode="EVN" classCode="OBS"> <templateId root="16.840.1.184421.10...4.2" /> <id nullFlavor="NA" /> <code codeSystem="local" code="APCO2" displayName= "Arterial PCO2" /> <statusCode code="completed" /> < effectiveTime value="956773990631" /> <value unit="mmHg" xsi:type="PQ" value="34" /> <interpretationCode codeSystem="local" code="*" /> <referenceRange> <observationRange> <text>35-45</ text> </observationRange> </referenceRange> </ observation> </component> <component> <observation moodCode= "EVN" classCode="OBS"> <templateId root="16.840.1.733080.10.20.22.4.2 " /> <id nullFlavor="NA" /> <code codeSystem="local" code="APH " displayName="Arterial PH" /> <statusCode code="completed" /> <effectiveTime value="520354878534" /> <value unit="NA" xsi:type="PQ " value="7.41" /> <referenceRange> <observationRange> <text>7.35-7.45</text> </observationRange> </ referenceRange> </observation> </component> <component> <observation moodCode="EVN" classCode="OBS"> <templateId root= "16.840.1.511002.1022.4.2" /> <id nullFlavor="NA" /> < code codeSystem="local" code="APO2" displayName="Arterial PO2" /> < statusCode code="completed" /> <effectiveTime value="306233083285" /> <value unit="mmHg" xsi:type="PQ" value="65" /> < interpretationCode codeSystem="local" code="*" /> <referenceRange> <observationRange> <text>80-100</text> </ observationRange> </referenceRange> </observation> </ component> <component> <observation moodCode="EVN" classCode="OBS"> <templateId root="10.29.840.1.895842.07.02.22.4.2" /> <id nullFlavor="NA" /> <code codeSystem="local" code="AFLOW" displayName= "Arterial LPM" /> <statusCode code="completed" /> < effectiveTime value="782518843528" /> <value unit="L/min" xsi:type="PQ " value="5.0" /> <referenceRange> <observationRange> <text /> </observationRange> </referenceRange> </observation> </component> <component> <observation moodCode ="EVN" classCode="OBS"> <templateId root= "10.29.840.1.421124.10..4.2" /> <id nullFlavor="NA" /> < code codeSystem="local" code="AO2PN" displayName="O2 Panel" /> < statusCode code="completed" /> <effectiveTime value="130767045153" /> <value unit="" xsi:type="PQ" value="nasal cannula" /> < referenceRange> <observationRange> <text /> < /observationRange> </referenceRange> </observation> </ component> <component> <observation moodCode="EVN" classCode="OBS"> <templateId root="216.840.1.537577.10..22.4.2" /> <id nullFlavor="NA" /> <code codeSystem="local" code="ASITE" displayName= "Spec Site" /> <statusCode code="completed" /> <effectiveTime value="525385664039" /> <value unit="" xsi:type="PQ" value="A. radialis r." /> <referenceRange> <observationRange> <text /> </observationRange> </referenceRange> </observation> </component> </organizer> </entry> <entry> < organizer moodCode="EVN" classCode="BATTERY"> <templateId root= "16.840.1.863247.10..22.4.1" /> <id nullFlavor="NA" /> <code codeSystem="local" code="VCHMN" displayName="Chem 8 NPT" /> <statusCode code="completed" /> <component> <observation moodCode="EVN" classCode="OBS"> <templateId root="16.840.1.953303.10..22.4.2" /> <id nullFlavor="NA" /> <code codeSystem="local" code="VAGAP" displayName="Anion Gap" /> <statusCode code="completed" /> < effectiveTime value="651219366000" /> <value unit="mEq/L" xsi:type="PQ " value="12" /> <referenceRange> <observationRange> <text>3-20</text> </observationRange> </referenceRange > </observation> </component> <component> <observation moodCode="EVN" classCode="OBS"> <templateId root= "16.840.1.209517.10..4.2" /> <id nullFlavor="NA" /> < code codeSystem="local" code="VBUNN" displayName="BUN Venous" /> < statusCode code="completed" /> <effectiveTime value="" /> <value unit="mg/dl" xsi:type="PQ" value="24" /> < interpretationCode codeSystem="local" code="*" /> <referenceRange> <observationRange> <text>4-20</text> </ observationRange> </referenceRange> </observation> </ component> <component> <observation moodCode="EVN" classCode="OBS"> <templateId root="10.29.840.1.294278.07.02.22.4.2" /> <id nullFlavor="NA" /> <code codeSystem="local" code="VCANN" displayName= "Calcium Ionized Venous" /> <statusCode code="completed" /> < effectiveTime value="" /> <value unit="mmol/L" xsi:type="PQ " value="1.01" /> <interpretationCode codeSystem="local" code="*" /> <referenceRange> <observationRange> <text>1.19- 1.41</text> </observationRange> </referenceRange> </ observation> </component> <component> <observation moodCode= "EVN" classCode="OBS"> <templateId root="10.29.840.1.298653..22.4.2 " /> <id nullFlavor="NA" /> <code codeSystem="local" code= "VCREN" displayName="Creatinine Venous" /> <statusCode code="completed " /> <effectiveTime value="" /> <value unit="mg/dL " xsi:type="PQ" value="1.0" /> <referenceRange> < observationRange> <text>0.7-1.2</text> </ observationRange> </referenceRange> </observation> </ component> <component> <observation moodCode="EVN" classCode="OBS"> <templateId root="10.29.840.1.283386.10..4.2" /> <id nullFlavor="NA" /> <code codeSystem="local" code="VGLNN" displayName= "Glucose Venous" /> <statusCode code="completed" /> < effectiveTime value="" /> <value unit="mg/dL" xsi:type="PQ " value="83" /> <referenceRange> <observationRange> <text>70-100</text> </observationRange> </ referenceRange> </observation> </component> <component> <observation moodCode="EVN" classCode="OBS"> <templateId root= "10.29.840.1.021705.10...4.2" /> <id nullFlavor="NA" /> < code codeSystem="local" code="VKNN" displayName="Potassium, WB" /> < statusCode code="completed" /> <effectiveTime value="" /> <value unit="mEq/L" xsi:type="PQ" value="3.5" /> < interpretationCode codeSystem="local" code="*" /> <referenceRange> <observationRange> <text>3.6-5.1</text> </ observationRange> </referenceRange> </observation> </ component> <component> <observation moodCode="EVN" classCode="OBS"> <templateId root="10.29.830.1.473012.10..22.4.2" /> <id nullFlavor="NA" /> <code codeSystem="local" code="VNANN" displayName= "Sodium Venous" /> <statusCode code="completed" /> < effectiveTime value="" /> <value unit="mEq/L" xsi:type="PQ " value="137" /> <referenceRange> <observationRange> <text>136-144</text> </observationRange> </ referenceRange> </observation> </component> <component> <observation moodCode="EVN" classCode="OBS"> <templateId root= "216.840.1.426469.10...4.2" /> <id nullFlavor="NA" /> < code codeSystem="local" code="VTCNN" displayName="Total CO2 Venous" /> <statusCode code="completed" /> <effectiveTime value="" /> <value unit="mEq/L" xsi:type="PQ" value="22" /> < interpretationCode codeSystem="local" code="*" /> <referenceRange> <observationRange> <text>25-29</text> </ observationRange> </referenceRange> </observation> </ component> <component> <observation moodCode="EVN" classCode="OBS"> <templateId root="16.840.1.295576.1022.4.2" /> <id nullFlavor="NA" /> <code codeSystem="local" code="VCLN" displayName= "Venous CL" /> <statusCode code="completed" /> <effectiveTime value="243856071083" /> <value unit="mEq/L" xsi:type="PQ" value="103" / > <referenceRange> <observationRange> <text>99- 109</text> </observationRange> </referenceRange> </ observation> </component> <component> <observation moodCode= "EVN" classCode="OBS"> <templateId root="216.840.1.012210.10..4.2 " /> <id nullFlavor="NA" /> <code codeSystem="local" code= "VHCNN" displayName="HCT Venous" /> <statusCode code="completed" /> <effectiveTime value="" /> <value unit="%" xsi: type="PQ" value="35.0" /> <interpretationCode codeSystem="local" code= "*" /> <referenceRange> <observationRange> < text>42.0-52.0</text> </observationRange> </referenceRange> </observation> </component> <component> <observation moodCode="EVN" classCode="OBS"> <templateId root= "2.840.1.792740.07.02.22.4.2" /> <id nullFlavor="NA" /> < code codeSystem="local" code="VHGNN" displayName="HGB Venous NPT" /> < statusCode code="completed" /> <effectiveTime value="" /> <value unit="g/dL" xsi:type="PQ" value="11.9" /> < interpretationCode codeSystem="local" code="*" /> <referenceRange> <observationRange> <text>14.0-16.0</text> </ observationRange> </referenceRange> </observation> </ component> </organizer> </entry> <entry> <organizer moodCode="EVN" classCode="BATTERY"> <templateId root="216.840.1.826564.10.2022.4.1" /> <id nullFlavor="NA" /> <code codeSystem="local" code="CBCWD" displayName="CBC With Platelet and Differential" /> <statusCode code= "completed" /> <component> <observation moodCode="EVN" classCode= "OBS"> <templateId root="10.29.840.1.762357.10..4.2" /> < id nullFlavor="NA" /> <code codeSystem="local" code="ABASR" displayName ="Absolute Basophils" /> <statusCode code="completed" /> < effectiveTime value="346604709317" /> <value unit="10*3/uL" xsi:type= "PQ" value="0.02" /> <referenceRange> <observationRange> <text>0.00-0.20</text> </observationRange> </ referenceRange> </observation> </component> <component> <observation moodCode="EVN" classCode="OBS"> <templateId root= "840.1.851892.07.02.22.4.2" /> <id nullFlavor="NA" /> < code codeSystem="local" code="AEOSR" displayName="Absolute Eosinophils" /> <statusCode code="completed" /> <effectiveTime value="041102833759 " /> <value unit="10*3/uL" xsi:type="PQ" value="0.39" /> < referenceRange> <observationRange> <text>0.00-0.50</text > </observationRange> </referenceRange> </observation > </component> <component> <observation moodCode="EVN" classCode="OBS"> <templateId root="10.29.840.1.622772.07.02.22.4.2" /> <id nullFlavor="NA" /> <code codeSystem="local" code="ALYMR" displayName="Absolute Lymphocytes" /> <statusCode code="completed" /> <effectiveTime value="" /> <value unit="10*3/uL" xsi:type="PQ" value="1.92" /> <referenceRange> < observationRange> <text>0.80-3.30</text> </ observationRange> </referenceRange> </observation> </ component> <component> <observation moodCode="EVN" classCode="OBS"> <templateId root="216.840.1.708283.07.02.22.4.2" /> <id nullFlavor="NA" /> <code codeSystem="local" code="AMONR" displayName= "Absolute Monocytes" /> <statusCode code="completed" /> < effectiveTime value="755770264949" /> <value unit="10*3/uL" xsi:type= "PQ" value="0.76" /> <referenceRange> <observationRange> <text>0.30-1.00</text> </observationRange> </ referenceRange> </observation> </component> <component> <observation moodCode="EVN" classCode="OBS"> <templateId root= "16.840.1.943623.07.02.22.4.2" /> <id nullFlavor="NA" /> < code codeSystem="local" code="ASEGR" displayName="Absolute Neutrophils" /> <statusCode code="completed" /> <effectiveTime value="[id number] " /> <value unit="10*3/uL" xsi:type="PQ" value="1.91" /> < referenceRange> <observationRange> <text>1.90-7.00</text > </observationRange> </referenceRange> </observation > </component> <component> <observation moodCode="EVN" classCode="OBS"> <templateId root="216.840.1.248273.07.02.22.4.2" /> <id nullFlavor="NA" /> <code codeSystem="local" code="BASOR" displayName="Basophils" /> <statusCode code="completed" /> < effectiveTime value="" /> <value unit="%" xsi:type="PQ " value="0" /> <referenceRange> <observationRange> <text>0-2</text> </observationRange> </referenceRange> </observation> </component> <component> <observation moodCode="EVN" classCode="OBS"> <templateId root= "2.16.840.1.064351.07.02.22.4.2" /> <id nullFlavor="NA" /> < code codeSystem="local" code="EOSR" displayName="Eosinophils" /> < statusCode code="completed" /> <effectiveTime value="" /> <value unit="%" xsi:type="PQ" value="8" /> < interpretationCode codeSystem="local" code="*" /> <referenceRange> <observationRange> <text>0-4</text> </ observationRange> </referenceRange> </observation> </ component> <component> <observation moodCode="EVN" classCode="OBS"> <templateId root="2.16.840.1.895571.07.02.22.4.2" /> <id nullFlavor="NA" /> <code codeSystem="local" code="HCT" displayName="HCT " /> <statusCode code="completed" /> <effectiveTime value= "844393455467" /> <value unit="%" xsi:type="PQ" value="34.7" /> <interpretationCode codeSystem="local" code="*" /> < referenceRange> <observationRange> <text>42.0-52.0</text > </observationRange> </referenceRange> </observation > </component> <component> <observation moodCode="EVN" classCode="OBS"> <templateId root="2.16.840.1.941636.10.20.4.2" /> <id nullFlavor="NA" /> <code codeSystem="local" code="HGB" displayName="HGB" /> <statusCode code="completed" /> < effectiveTime value="550607636031" /> <value unit="g/dL" xsi:type="PQ" value="11.8" /> <interpretationCode codeSystem="local" code="*" /> <referenceRange> <observationRange> <text>14.0- 18.0</text> </observationRange> </referenceRange> </ observation> </component> <component> <observation moodCode= "EVN" classCode="OBS"> <templateId root="216.840.1.190475.07.02.224.2 " /> <id nullFlavor="NA" /> <code codeSystem="local" code= "IMGA" displayName="Immature Granulocytes" /> <statusCode code= "completed" /> <effectiveTime value="306430579276" /> <value unit="%" xsi:type="PQ" value="0.2" /> <referenceRange> < observationRange> <text>0.0-1.0</text> </ observationRange> </referenceRange> </observation> </ component> <component> <observation moodCode="EVN" classCode="OBS"> <templateId root="216.840.1.257066.10..4.2" /> <id nullFlavor="NA" /> <code codeSystem="local" code="LYMPR" displayName= "Lymphocytes" /> <statusCode code="completed" /> < effectiveTime value="" /> <value unit="%" xsi:type="PQ " value="38" /> <referenceRange> <observationRange> <text>20-46</text> </observationRange> </ referenceRange> </observation> </component> <component> <observation moodCode="EVN" classCode="OBS"> <templateId root= "216.840.1.971145.10.22.4.2" /> <id nullFlavor="NA" /> < code codeSystem="local" code="[facility]" displayName="[facility]" /> <statusCode code="completed" /> <effectiveTime value="" /> < value unit="pg" xsi:type="PQ" value="30.8" /> <referenceRange> <observationRange> <text>27.0-32.0</text> </ observationRange> </referenceRange> </observation> </ component> <component> <observation moodCode="EVN" classCode="OBS"> <templateId root="216.840.1.376229.22.4.2" /> <id nullFlavor="NA" /> <code codeSystem="local" code[facility]" displayName= "[facility]" /> <statusCode code="completed" /> <effectiveTime value ="" /> <value unit="g/dL" xsi:type="PQ" value="34.0" /> <referenceRange> <observationRange> <text>32.0- 36.0</text> </observationRange> </referenceRange> </ observation> </component> <component> <observation moodCode= "EVN" classCode="OBS"> <templateId root="216.840.1.230573.10.20.22.4.2 " /> <id nullFlavor="NA" /> <code codeSystem="local" code="MCV " displayName="MCV" /> <statusCode code="completed" /> < effectiveTime value="707848478986" /> <value unit="fL" xsi:type="PQ" value="90.6" /> <referenceRange> <observationRange> <text>82.0-99.0</text> </observationRange> </ referenceRange> </observation> </component> <component> <observation moodCode="EVN" classCode="OBS"> <templateId root= "216.840.1.337834.10..22.4.2" /> <id nullFlavor="NA" /> < code codeSystem="local" code="MONOR" displayName="Monocytes" /> < statusCode code="completed" /> <effectiveTime value="623940189430" /> <value unit="%" xsi:type="PQ" value="15" /> < interpretationCode codeSystem="local" code="*" /> <referenceRange> <observationRange> <text>4-11</text> </ observationRange> </referenceRange> </observation> </ component> <component> <observation moodCode="EVN" classCode="OBS"> <templateId root="216.840.1.285859.10..22.4.2" /> <id nullFlavor="NA" /> <code codeSystem="local" code="MPV" displayName="MPV " /> <statusCode code="completed" /> <effectiveTime value= "525495728701" /> <value unit="fL" xsi:type="PQ" value="10.7" /> <referenceRange> <observationRange> <text>9.4-12.3</ text> </observationRange> </referenceRange> </ observation> </component> <component> <observation moodCode= "EVN" classCode="OBS"> <templateId root="16.840.1.575057.10..22.4.2 " /> <id nullFlavor="NA" /> <code codeSystem="local" code= "SEGR" displayName="Neutrophils" /> <statusCode code="completed" /> <effectiveTime value="" /> <value unit="%" xsi: type="PQ" value="38" /> <interpretationCode codeSystem="local" code="* " /> <referenceRange> <observationRange> <text> 51-75</text> </observationRange> </referenceRange> </ observation> </component> <component> <observation moodCode= "EVN" classCode="OBS"> <templateId root="16.840.1.686041.07.02.22.4.2 " /> <id nullFlavor="NA" /> <code codeSystem="local" code= "NRBCA" displayName="Nucleated RBC Automated" /> <statusCode code= "completed" /> <effectiveTime value="" /> <value unit="/100WBC" xsi:type="PQ" value="0.0" /> <referenceRange> <observationRange> <text /> </observationRange> </referenceRange> </observation> </component> <component> <observation moodCode="EVN" classCode="OBS"> <templateId root= "10.29.840.1.368180.10..22.4.2" /> <id nullFlavor="NA" /> < code codeSystem="local" code="PLT" displayName="Platelet Count" /> < statusCode code="completed" /> <effectiveTime value="" /> <value unit="K/uL" xsi:type="PQ" value="129" /> < interpretationCode codeSystem="local" code="*" /> <referenceRange> <observationRange> <text>150-400</text> </ observationRange> </referenceRange> </observation> </ component> <component> <observation moodCode="EVN" classCode="OBS"> <templateId root="216.840.1.704354.10.20.22.4.2" /> <id nullFlavor="NA" /> <code codeSystem="local" code="RBC" displayName="RBC " /> <statusCode code="completed" /> <effectiveTime value= "915171619656" /> <value unit="10*6/uL" xsi:type="PQ" value="3.83" /> <interpretationCode codeSystem="local" code="*" /> < referenceRange> <observationRange> <text>4.60-6.20</text > </observationRange> </referenceRange> </observation > </component> <component> <observation moodCode="EVN" classCode="OBS"> <templateId root="10.29.840.1.963456.10...4.2" /> <id nullFlavor="NA" /> <code codeSystem="local" code="RDW" displayName="RDW" /> <statusCode code="completed" /> < effectiveTime value="804624763968" /> <value unit="%" xsi:type="PQ " value="13.9" /> <referenceRange> <observationRange> <text>11.5-14.5</text> </observationRange> </ referenceRange> </observation> </component> <component> <observation moodCode="EVN" classCode="OBS"> <templateId root= "16.840.1.904925.10.20.22.4.2" /> <id nullFlavor="NA" /> < code codeSystem="local" code="WBCIR" displayName="WBC" /> <statusCode code="completed" /> <effectiveTime value="403886716001" /> < value unit="K/uL" xsi:type="PQ" value="5.0" /> <referenceRange> <observationRange> <text>4.8-10.8</text> </ observationRange> </referenceRange> </observation> </ component> </organizer> </entry> <entry> <organizer moodCode="EVN" classCode="BATTERY"> <templateId root="16.840.1.127808.10..22.4.1" /> <id nullFlavor="NA" /> <code codeSystem="local" code="CMP" displayName ="Comprehensive Metabolic Panel (CMP)" /> <statusCode code="completed" /> <component> <observation moodCode="EVN" classCode="OBS"> < templateId root="16.840.1.166022.10..22.4.2" /> <id nullFlavor="NA " /> <code codeSystem="local" code="ALB" displayName="Albumin" /> <statusCode code="completed" /> <effectiveTime value="408040228026 " /> <value unit="g/dL" xsi:type="PQ" value="3.1" /> < interpretationCode codeSystem="local" code="*" /> <referenceRange> <observationRange> <text>3.5-4.8</text> </ observationRange> </referenceRange> </observation> </ component> <component> <observation moodCode="EVN" classCode="OBS"> <templateId root="10.29.840.1.474326.10..22.4.2" /> <id nullFlavor="NA" /> <code codeSystem="local" code="ALP" displayName= "Alkaline Phosphatase" /> <statusCode code="completed" /> < effectiveTime value="115483264152" /> <value unit="U/L" xsi:type="PQ" value="64" /> <referenceRange> <observationRange> <text>26-104</text> </observationRange> </referenceRange > </observation> </component> <component> <observation moodCode="EVN" classCode="OBS"> <templateId root= "10.29.840.1.135294.10...4.2" /> <id nullFlavor="NA" /> < code codeSystem="local" code="ALT" displayName="ALT (SGPT)" /> < statusCode code="completed" /> <effectiveTime value="" /> <value unit="U/L" xsi:type="PQ" value="45" /> <referenceRange > <observationRange> <text>17-63</text> </ observationRange> </referenceRange> </observation> </ component> <component> <observation moodCode="EVN" classCode="OBS"> <templateId root="10.29.840.1.035643.10...4.2" /> <id nullFlavor="NA" /> <code codeSystem="local" code="AGAP" displayName= "Anion Gap" /> <statusCode code="completed" /> <effectiveTime value="496730559449" /> <value unit="mEq/L" xsi:type="PQ" value="9" /> <referenceRange> <observationRange> <text>3-20 </text> </observationRange> </referenceRange> </ observation> </component> <component> <observation moodCode= "EVN" classCode="OBS"> <templateId root="10.29.840.1.421644.10..22.4.2 " /> <id nullFlavor="NA" /> <code codeSystem="local" code="AST " displayName="AST (SGOT)" /> <statusCode code="completed" /> <effectiveTime value="" /> <value unit="U/L" xsi:type="PQ" value="43" /> <interpretationCode codeSystem="local" code="*" /> <referenceRange> <observationRange> <text>15-41</ text> </observationRange> </referenceRange> </ observation> </component> <component> <observation moodCode= "EVN" classCode="OBS"> <templateId root="2.16.840.1.641970.07.02.22.4.2 " /> <id nullFlavor="NA" /> <code codeSystem="local" code= "BILIT" displayName="Bilirubin Total" /> <statusCode code="completed" / > <effectiveTime value="" /> <value unit="mg/dL" xsi:type="PQ" value="0.5" /> <referenceRange> < observationRange> <text>0.2-1.2</text> </ observationRange> </referenceRange> </observation> </ component> <component> <observation moodCode="EVN" classCode="OBS"> <templateId root="2.16.840.1.693096.22.4.2" /> <id nullFlavor="NA" /> <code codeSystem="local" code="BUN" displayName="BUN " /> <statusCode code="completed" /> <effectiveTime value= "" /> <value unit="mg/dL" xsi:type="PQ" value="21" /> <interpretationCode codeSystem="local" code="*" /> <referenceRange > <observationRange> <text>4-20</text> </ observationRange> </referenceRange> </observation> </ component> <component> <observation moodCode="EVN" classCode="OBS"> <templateId root="216.840.1.282283.10.22.4.2" /> <id nullFlavor="NA" /> <code codeSystem="local" code="CA" displayName= "Calcium" /> <statusCode code="completed" /> <effectiveTime value="" /> <value unit="mg/dL" xsi:type="PQ" value="8.0" / > <interpretationCode codeSystem="local" code="*" /> < referenceRange> <observationRange> <text>8.6-10.0</text > </observationRange> </referenceRange> </observation > </component> <component> <observation moodCode="EVN" classCode="OBS"> <templateId root="10.29.840.1.947317.07.02.22.4.2" /> <id nullFlavor="NA" /> <code codeSystem="local" code="CL" displayName="Chloride" /> <statusCode code="completed" /> < effectiveTime value="" /> <value unit="mEq/L" xsi:type="PQ " value="104" /> <referenceRange> <observationRange> <text>99-109</text> </observationRange> </ referenceRange> </observation> </component> <component> <observation moodCode="EVN" classCode="OBS"> <templateId root= "16.840.1.448122....4.2" /> <id nullFlavor="NA" /> < code codeSystem="local" code="CO2" displayName="CO2" /> <statusCode code="completed" /> <effectiveTime value="" /> < value unit="mEq/L" xsi:type="PQ" value="21" /> <interpretationCode codeSystem="local" code="*" /> <referenceRange> < observationRange> <text>22-32</text> </observationRange > </referenceRange> </observation> </component> < component> <observation moodCode="EVN" classCode="OBS"> < templateId root="10.29.840.1.084962.1022.4.2" /> <id nullFlavor="NA " /> <code codeSystem="local" code="CREAT" displayName="Creatinine" /> <statusCode code="completed" /> <effectiveTime value= "" /> <value unit="mg/dL" xsi:type="PQ" value="0.96" /> <referenceRange> <observationRange> <text>0.64- 1.27</text> </observationRange> </referenceRange> </ observation> </component> <component> <observation moodCode= "EVN" classCode="OBS"> <templateId root="840.1.109435.07.02.22.4.2 " /> <id nullFlavor="NA" /> <code codeSystem="local" code= "GLOB" displayName="Globulin" /> <statusCode code="completed" /> <effectiveTime value="" /> <value unit="g/dL" xsi:type= "PQ" value="2.6" /> <referenceRange> <observationRange> <text>1.9-4.3</text> </observationRange> </ referenceRange> </observation> </component> <component> <observation moodCode="EVN" classCode="OBS"> <templateId root= "10.29.840.1.028814.22.4.2" /> <id nullFlavor="NA" /> < code codeSystem="local" code="GLU" displayName="Glucose" /> < statusCode code="completed" /> <effectiveTime value="" /> <value unit="mg/dL" xsi:type="PQ" value="90" /> < referenceRange> <observationRange> <text>70-100</text> </observationRange> </referenceRange> </observation> </component> <component> <observation moodCode="EVN" classCode ="OBS"> <templateId root="216.840.1.428522.10.20.22.4.2" /> < id nullFlavor="NA" /> <code codeSystem="local" code="K" displayName= "Potassium" /> <statusCode code="completed" /> <effectiveTime value="" /> <value unit="mEq/L" xsi:type="PQ" value="3.5" / > <interpretationCode codeSystem="local" code="*" /> < referenceRange> <observationRange> <text>3.6-5.1</text> </observationRange> </referenceRange> </observation > </component> <component> <observation moodCode="EVN" classCode="OBS"> <templateId root="216.840.1.681972.10.20.22.4.2" /> <id nullFlavor="NA" /> <code codeSystem="local" code="TP" displayName="Protein" /> <statusCode code="completed" /> < effectiveTime value="" /> <value unit="g/dL" xsi:type="PQ" value="5.7" /> <interpretationCode codeSystem="local" code="*" /> <referenceRange> <observationRange> <text>6.1-7.9</ text> </observationRange> </referenceRange> </ observation> </component> <component> <observation moodCode= "EVN" classCode="OBS"> <templateId root="2.16.840.1.212439.10..22.4.2 " /> <id nullFlavor="NA" /> <code codeSystem="local" code="NA " displayName="Sodium" /> <statusCode code="completed" /> < effectiveTime value="681923074125" /> <value unit="mEq/L" xsi:type="PQ " value="134" /> <interpretationCode codeSystem="local" code="*" /> <referenceRange> <observationRange> <text>136-144 </text> </observationRange> </referenceRange> </ observation> </component> </organizer> </entry> <entry> <organizer moodCode="EVN" classCode="BATTERY"> <templateId root= "2.16.840.1.962344.10..22.4.1" /> <id nullFlavor="NA" /> <code codeSystem="local" code="GFR" displayName="eGFR" /> <statusCode code= "completed" /> <component> <observation moodCode="EVN" classCode= "OBS"> <templateId root="2.16.840.1.979755.10.20.22.4.2" /> < id nullFlavor="NA" /> <code codeSystem="local" code="GFR" displayName= "eGFR" /> <statusCode code="completed" /> <effectiveTime value ="592424777740" /> <value unit="mL/min" xsi:type="PQ" value=">60" / > <referenceRange> <observationRange> <text>&gt ;60</text> </observationRange> </referenceRange> </ observation> </component> </organizer> </entry> <entry> <organizer moodCode="EVN" classCode="BATTERY"> <templateId root= "840.1.110051.22.4.1" /> <id nullFlavor="NA" /> <code codeSystem="local" code="TSHR" displayName="TSH with Reflex Free T4" /> < statusCode code="completed" /> <component> <observation moodCode= "EVN" classCode="OBS"> <templateId root="840.1.498396.07.02.22.4.2 " /> <id nullFlavor="NA" /> <code codeSystem="local" code= "TSHR" displayName="TSH with Reflex Free T4" /> <statusCode code= "completed" /> <effectiveTime value="012271010413" /> <value unit="uIU/mL" xsi:type="PQ" value="3.17" /> <referenceRange> <observationRange> <text>0.35-4.94</text> </ observationRange> </referenceRange> </observation> </ component> </organizer> </entry> <entry> <organizer moodCode="EVN" classCode="BATTERY"> <templateId root="840.1.474796.07.02.22.4.1" /> <id nullFlavor="NA" /> <code codeSystem="local" code="LACTN" displayName="Lactic Acid NPT" /> <statusCode code="completed" /> < component> <observation moodCode="EVN" classCode="OBS"> < templateId root="840.1.727243.07.02.22.4.2" /> <id nullFlavor="NA " /> <code codeSystem="local" code="LACTN" displayName="Lactic Acid NPT " /> <statusCode code="completed" /> <effectiveTime value= "458721414736" /> <value unit="mEq/L" xsi:type="PQ" value="1.1" /> <referenceRange> <observationRange> <text>0.5-2.0< /text> </observationRange> </referenceRange> </ observation> </component> </organizer> </entry> <entry> <organizer moodCode="EVN" classCode="BATTERY"> <templateId root= "840.1.174829.22.4.1" /> <id nullFlavor="NA" /> <code codeSystem="local" code="CBCD" displayName="CBC W/DIFF" /> <statusCode code ="completed" /> <component> <observation moodCode="EVN" classCode= "OBS"> <templateId root="10.29.840.1.991102.07.02.22.4.2" /> < id nullFlavor="NA" /> <code codeSystem="local" code="EO#" displayName= "EOSINOPHIL #" /> <statusCode code="completed" /> < effectiveTime value="748030020865" /> <value unit="k/cumm" xsi:type="PQ " value="0.4" /> <referenceRange> <observationRange> <text>0.1-0.5</text> </observationRange> </ referenceRange> </observation> </component> <component> <observation moodCode="EVN" classCode="OBS"> <templateId root= "10.29.840.1.158701.10224.2" /> <id nullFlavor="NA" /> < code codeSystem="local" code="EO%" displayName="EOSINOPHIL %" /> <statusCode code="completed" /> <effectiveTime value="499151177826" /> <value unit="%" xsi:type="PQ" value="5" /> < interpretationCode codeSystem="local" code="*" /> <referenceRange> <observationRange> <text>2-4</text> </ observationRange> </referenceRange> </observation> </ component> <component> <observation moodCode="EVN" classCode="OBS"> <templateId root="10.29.840.1.392557.10.20.22.4.2" /> <id nullFlavor="NA" /> <code codeSystem="local" code="GR#" displayName= "GRANULOCYTE #" /> <statusCode code="completed" /> < effectiveTime value="863774031976" /> <value unit="k/cumm" xsi:type="PQ " value="4.2" /> <referenceRange> <observationRange> <text>2.0-9.0</text> </observationRange> </ referenceRange> </observation> </component> <component> <observation moodCode="EVN" classCode="OBS"> <templateId root= "840.1.062559.10.22.4.2" /> <id nullFlavor="NA" /> < code codeSystem="local" code="GR%" displayName="GRANULOCYTE %" /> <statusCode code="completed" /> <effectiveTime value="365797024285 " /> <value unit="%" xsi:type="PQ" value="56" /> < referenceRange> <observationRange> <text>50-75</text> </observationRange> </referenceRange> </observation> </component> <component> <observation moodCode="EVN" classCode= "OBS"> <templateId root="10.29.840.1.417910.10.20.22.4.2" /> < id nullFlavor="NA" /> <code codeSystem="local" code="LY#" displayName= "LYMPHOCYTE #" /> <statusCode code="completed" /> < effectiveTime value="108208351331" /> <value unit="k/cumm" xsi:type="PQ " value="2.1" /> <referenceRange> <observationRange> <text>1.0-4.0</text> </observationRange> </ referenceRange> </observation> </component> <component> <observation moodCode="EVN" classCode="OBS"> <templateId root= "10.29.840.1.604796.07.02.22.4.2" /> <id nullFlavor="NA" /> < code codeSystem="local" code="LY%" displayName="LYMPHOCYTE %" /> <statusCode code="completed" /> <effectiveTime value="939138625859" /> <value unit="%" xsi:type="PQ" value="28" /> < referenceRange> <observationRange> <text>20-30</text> </observationRange> </referenceRange> </observation> </component> <component> <observation moodCode="EVN" classCode= "OBS"> <templateId root="10.29.840.1.148855.07.02.22.4.2" /> < id nullFlavor="NA" /> <code codeSystem="local" code="[facility]" displayName= "MEAN CELL HGB" /> <statusCode code="completed" /> < effectiveTime value="517227872737" /> <value unit="pg" xsi:type="PQ" value="30.2" /> <referenceRange> <observationRange> <text>27.0-33.0</text> </observationRange> </ referenceRange> </observation> </component> <component> <observation moodCode="EVN" classCode="OBS"> <templateId root= "10.29.840.1.213756.07.02.22.4.2" /> <id nullFlavor="NA" /> < code codeSystem="local" code="[facility]" displayName="MEAN CELL HGB CONCENTRATION" / > <statusCode code="completed" /> <effectiveTime value= "014635013098" /> <value unit="g/dL" xsi:type="PQ" value="33.8" /> <referenceRange> <observationRange> <text>32.0- 37.0</text> </observationRange> </referenceRange> </ observation> </component> <component> <observation moodCode= "EVN" classCode="OBS"> <templateId root="2.16.840.1.330269.07.02.22.4.2 " /> <id nullFlavor="NA" /> <code codeSystem="local" code="MCV " displayName="MEAN CELL VOLUME" /> <statusCode code="completed" /> <effectiveTime value="047478681809" /> <value unit="fl" xsi:type ="PQ" value="89.3" /> <referenceRange> <observationRange> <text>80.0-100.0</text> </observationRange> </ referenceRange> </observation> </component> <component> <observation moodCode="EVN" classCode="OBS"> <templateId root= "216.840.1.582820.07.02.22.4.2" /> <id nullFlavor="NA" /> < code codeSystem="local" code="MO#" displayName="MONOCYTE #" /> < statusCode code="completed" /> <effectiveTime value="260916016214" /> <value unit="k/cumm" xsi:type="PQ" value="0.8" /> < referenceRange> <observationRange> <text>0.1-1.0</text> </observationRange> </referenceRange> </observation > </component> <component> <observation moodCode="EVN" classCode="OBS"> <templateId root="2.16.840.1.572809.10..22.4.2" /> <id nullFlavor="NA" /> <code codeSystem="local" code="MO% " displayName="MONOCYTE %" /> <statusCode code="completed" /> <effectiveTime value="" /> <value unit="%" xsi: type="PQ" value="11" /> <interpretationCode codeSystem="local" code="* " /> <referenceRange> <observationRange> <text> 4-6</text> </observationRange> </referenceRange> </ observation> </component> <component> <observation moodCode= "EVN" classCode="OBS"> <templateId root="216.840.1.062213.07.02.22.4.2 " /> <id nullFlavor="NA" /> <code codeSystem="local" code= "MPVT" displayName="MEAN PLATELET VOLUME" /> <statusCode code= "completed" /> <effectiveTime value="298841260285" /> <value unit="fl" xsi:type="PQ" value="9.7" /> <referenceRange> < observationRange> <text>8.5-10.9</text> </ observationRange> </referenceRange> </observation> </ component> <component> <observation moodCode="EVN" classCode="OBS"> <templateId root="216.840.1.813175.10..4.2" /> <id nullFlavor="NA" /> <code codeSystem="local" code="RBC" displayName=" RED BLOOD CELL" /> <statusCode code="completed" /> < effectiveTime value="" /> <value unit="m/cumm" xsi:type="PQ " value="4.41" /> <referenceRange> <observationRange> <text>4.00-6.00</text> </observationRange> </ referenceRange> </observation> </component> <component> <observation moodCode="EVN" classCode="OBS"> <templateId root= "216.840.1.451161.10..22.4.2" /> <id nullFlavor="NA" /> < code codeSystem="local" code="RDW" displayName="RED CELL DISTRIBUTION WIDTH" /> <statusCode code="completed" /> <effectiveTime value= "409151189195" /> <value unit="%" xsi:type="PQ" value="13.7" /> <referenceRange> <observationRange> <text>11.0- 15.6</text> </observationRange> </referenceRange> </ observation> </component> <component> <observation moodCode= "EVN" classCode="OBS"> <templateId root="16.840.1.802750.10..22.4.2 " /> <id nullFlavor="NA" /> <code codeSystem="local" code="WBC " displayName="WHITE BLOOD CELL" /> <statusCode code="completed" /> <effectiveTime value="976034334048" /> <value unit="k/cumm" xsi: type="PQ" value="7.6" /> <referenceRange> <observationRange > <text>5.0-10.0</text> </observationRange> </ referenceRange> </observation> </component> <component> <observation moodCode="EVN" classCode="OBS"> <templateId root= "216.840.1.913342.10..22.4.2" /> <id nullFlavor="NA" /> < code codeSystem="local" code="HGBT" displayName="HEMOGLOBIN" /> < statusCode code="completed" /> <effectiveTime value="" /> <value unit="gm/dL" xsi:type="PQ" value="13.3" /> < interpretationCode codeSystem="local" code="*" /> <referenceRange> <observationRange> <text>14.0-18.0</text> </ observationRange> </referenceRange> </observation> </ component> <component> <observation moodCode="EVN" classCode="OBS"> <templateId root="2.16.840.1.305189.10...4.2" /> <id nullFlavor="NA" /> <code codeSystem="local" code="HCTT" displayName= "HEMATOCRIT" /> <statusCode code="completed" /> < effectiveTime value="" /> <value unit="%" xsi:type="PQ " value="39.4" /> <interpretationCode codeSystem="local" code="*" /> <referenceRange> <observationRange> <text>40.0- 54.0</text> </observationRange> </referenceRange> </ observation> </component> <component> <observation moodCode= "EVN" classCode="OBS"> <templateId root="2.16.840.1.892498.10.20.22.4.2 " /> <id nullFlavor="NA" /> <code codeSystem="local" code= "NRBC%" displayName="NRBC %" /> <statusCode code="completed" / > <effectiveTime value="" /> <value unit="/100WBC " xsi:type="PQ" value="0.0" /> <referenceRange> < observationRange> <text>0.0-0.0</text> </ observationRange> </referenceRange> </observation> </ component> <component> <observation moodCode="EVN" classCode="OBS"> <templateId root="216.840.1.145743.10.22.4.2" /> <id nullFlavor="NA" /> <code codeSystem="local" code="NRBC#" displayName= "NRBC #" /> <statusCode code="completed" /> <effectiveTime value="" /> <value unit="k/cumm" xsi:type="PQ" value="0.00 " /> <interpretationCode codeSystem="local" code="*" /> < referenceRange> <observationRange> <text>0.03-0.11</text > </observationRange> </referenceRange> </observation > </component> <component> <observation moodCode="EVN" classCode="OBS"> <templateId root="10.29.840.1.140868.07.02.22.4.2" /> <id nullFlavor="NA" /> <code codeSystem="local" code="PLTT" displayName="PLATELET COUNT" /> <statusCode code="completed" /> <effectiveTime value="" /> <value unit="k/cumm" xsi:type ="PQ" value="156" /> <referenceRange> <observationRange> <text>150-400</text> </observationRange> </ referenceRange> </observation> </component> <component> <observation moodCode="EVN" classCode="OBS"> <templateId root= "216.840.1.345293.1022.4.2" /> <id nullFlavor="NA" /> < code codeSystem="local" code="IG%" displayName="IMMATURE GRANULOCYTE %" /> <statusCode code="completed" /> <effectiveTime value= "527409804892" /> <value unit="%" xsi:type="PQ" value="0.4" /> <referenceRange> <observationRange> <text>0.0-0.6< /text> </observationRange> </referenceRange> </ observation> </component> <component> <observation moodCode= "EVN" classCode="OBS"> <templateId root="2.16.840.1.805972.07.02.22.4.2 " /> <id nullFlavor="NA" /> <code codeSystem="local" code="IG# " displayName="IMMATURE GRANULOCYTE #" /> <statusCode code="completed" /> <effectiveTime value="519464915152" /> <value unit="k/cumm " xsi:type="PQ" value="0.03" /> <referenceRange> < observationRange> <text>0.00-0.09</text> </ observationRange> </referenceRange> </observation> </ component> <component> <observation moodCode="EVN" classCode="OBS"> <templateId root="2.16.840.1.844315.07.02.22.4.2" /> <id nullFlavor="NA" /> <code codeSystem="local" code="IPFT" displayName= "IMMATURE PLATELET FRACTION" /> <statusCode code="completed" /> <effectiveTime value="228253928020" /> <value unit="%" xsi:type= "PQ" value="3.7" /> <referenceRange> <observationRange> <text>1.1-6.1</text> </observationRange> </ referenceRange> </observation> </component> </organizer> </entry > <entry> <organizer moodCode="EVN" classCode="BATTERY"> <templateId root="2.16.840.1.459211.07.02.22.4.1" /> <id nullFlavor="NA" /> <code codeSystem="local" code="METABC" displayName="METABOLIC PANEL, COMPREHN" /> <statusCode code="completed" /> <component> <observation moodCode= "EVN" classCode="OBS"> <templateId root="10.29.840.1.564954...4.2 " /> <id nullFlavor="NA" /> <code codeSystem="local" code="K" displayName="POTASSIUM" /> <statusCode code="completed" /> < effectiveTime value="614439191234" /> <value unit="mmol/L" xsi:type="PQ " value="3.6" /> <referenceRange> <observationRange> <text>3.5-5.3</text> </observationRange> </ referenceRange> </observation> </component> <component> <observation moodCode="EVN" classCode="OBS"> <templateId root= "840.1.099297.07.02.22.4.2" /> <id nullFlavor="NA" /> < code codeSystem="local" code="eGFR" displayName="EST GFR (MDRD)" /> < statusCode code="completed" /> <effectiveTime value="745434671053" /> <value unit="mL/min" xsi:type="PQ" value="> 60" /> < referenceRange> <observationRange> <text>> 59</text> </observationRange> </referenceRange> </observation > </component> <component> <observation moodCode="EVN" classCode="OBS"> <templateId root="10.29.840.1.624409.10.4.2" /> <id nullFlavor="NA" /> <code codeSystem="local" code="GAP" displayName="ANION GAP" /> <statusCode code="completed" /> < effectiveTime value="123649663808" /> <value unit="mmol/L" xsi:type="PQ " value="11" /> <referenceRange> <observationRange> <text>5-15</text> </observationRange> </referenceRange > </observation> </component> <component> <observation moodCode="EVN" classCode="OBS"> <templateId root= "216.840.1.168794.10..22.4.2" /> <id nullFlavor="NA" /> < code codeSystem="local" code="eCrCl" displayName="EST CrCl (CG)" /> < statusCode code="completed" /> <effectiveTime value="210149093601" /> <value unit="mL/min" xsi:type="PQ" value="> 60" /> < referenceRange> <observationRange> <text>> 59</text> </observationRange> </referenceRange> </observation > </component> <component> <observation moodCode="EVN" classCode="OBS"> <templateId root="10.29.840.1.659495.10..22.4.2" /> <id nullFlavor="NA" /> <code codeSystem="local" code="GLU" displayName="GLUCOSE" /> <statusCode code="completed" /> < effectiveTime value="173438681362" /> <value unit="mg/dL" xsi:type="PQ " value="82" /> <referenceRange> <observationRange> <text>70-99</text> </observationRange> </ referenceRange> </observation> </component> <component> <observation moodCode="EVN" classCode="OBS"> <templateId root= "10.29.840.1.111582.10..4.2" /> <id nullFlavor="NA" /> < code codeSystem="local" code="CA" displayName="CALCIUM" /> <statusCode code="completed" /> <effectiveTime value="645925823978" /> < value unit="mg/dL" xsi:type="PQ" value="8.5" /> <referenceRange> <observationRange> <text>8.5-10.1</text> </ observationRange> </referenceRange> </observation> </ component> <component> <observation moodCode="EVN" classCode="OBS"> <templateId root="2.16.840.1.246684.07.02.22.4.2" /> <id nullFlavor="NA" /> <code codeSystem="local" code="BUN" displayName= "BLOOD UREA NITROGEN" /> <statusCode code="completed" /> < effectiveTime value="615275690462" /> <value unit="mg/dL" xsi:type="PQ " value="14" /> <referenceRange> <observationRange> <text>7-20</text> </observationRange> </referenceRange > </observation> </component> <component> <observation moodCode="EVN" classCode="OBS"> <templateId root= "2.16.840.1.610784.10..4.2" /> <id nullFlavor="NA" /> < code codeSystem="local" code="CREAT" displayName="CREATININE" /> < statusCode code="completed" /> <effectiveTime value="358249715364" /> <value unit="mg/dL" xsi:type="PQ" value="1.0" /> < referenceRange> <observationRange> <text>0.7-1.3</text> </observationRange> </referenceRange> </observation > </component> <component> <observation moodCode="EVN" classCode="OBS"> <templateId root="216.840.1.141840.10..22.4.2" /> <id nullFlavor="NA" /> <code codeSystem="local" code="NA" displayName="SODIUM" /> <statusCode code="completed" /> < effectiveTime value="038177047522" /> <value unit="mmol/L" xsi:type="PQ " value="138" /> <referenceRange> <observationRange> <text>135-148</text> </observationRange> </ referenceRange> </observation> </component> <component> <observation moodCode="EVN" classCode="OBS"> <templateId root= "16.840.1.835988.10..22.4.2" /> <id nullFlavor="NA" /> < code codeSystem="local" code="CL" displayName="CHLORIDE" /> < statusCode code="completed" /> <effectiveTime value="461070033134" /> <value unit="mmol/L" xsi:type="PQ" value="102" /> < referenceRange> <observationRange> <text>98-110</text> </observationRange> </referenceRange> </observation> </component> <component> <observation moodCode="EVN" classCode ="OBS"> <templateId root="16.840.1.295405.10.2022.4.2" /> < id nullFlavor="NA" /> <code codeSystem="local" code="AST" displayName= "AST/SGOT" /> <statusCode code="completed" /> <effectiveTime value="141100412333" /> <value unit="Units/L" xsi:type="PQ" value="37" /> <referenceRange> <observationRange> <text>10 -37</text> </observationRange> </referenceRange> </ observation> </component> <component> <observation moodCode= "EVN" classCode="OBS"> <templateId root="216.840.1.508073.10...4.2 " /> <id nullFlavor="NA" /> <code codeSystem="local" code="ALT " displayName="ALT/SGPT" /> <statusCode code="completed" /> < effectiveTime value="345722866477" /> <value unit="Units/L" xsi:type= "PQ" value="38" /> <referenceRange> <observationRange> <text>< 66</text> </observationRange> </ referenceRange> </observation> </component> <component> <observation moodCode="EVN" classCode="OBS"> <templateId root= "216.840.1.650213.10..4.2" /> <id nullFlavor="NA" /> < code codeSystem="local" code="CO2" displayName="CARBON DIOXIDE" /> < statusCode code="completed" /> <effectiveTime value="" /> <value unit="mmol/L" xsi:type="PQ" value="25" /> < referenceRange> <observationRange> <text>21-32</text> </observationRange> </referenceRange> </observation> </component> <component> <observation moodCode="EVN" classCode= "OBS"> <templateId root="16.840.1.780174.10..22.4.2" /> < id nullFlavor="NA" /> <code codeSystem="local" code="TP" displayName= "TOTAL PROTEIN" /> <statusCode code="completed" /> < effectiveTime value="156199976619" /> <value unit="gm/dL" xsi:type="PQ " value="7.3" /> <referenceRange> <observationRange> <text>6.4-8.2</text> </observationRange> </ referenceRange> </observation> </component> <component> <observation moodCode="EVN" classCode="OBS"> <templateId root= "16.840.1.072586.10..4.2" /> <id nullFlavor="NA" /> < code codeSystem="local" code="ALB" displayName="ALBUMIN" /> < statusCode code="completed" /> <effectiveTime value="463760683166" /> <value unit="gm/dL" xsi:type="PQ" value="3.4" /> < referenceRange> <observationRange> <text>3.4-5.0</text> </observationRange> </referenceRange> </observation > </component> <component> <observation moodCode="EVN" classCode="OBS"> <templateId root="10.29.840.1.831976.07.02.22.4.2" /> <id nullFlavor="NA" /> <code codeSystem="local" code="BILTOT" displayName="BILI TOTAL" /> <statusCode code="completed" /> < effectiveTime value="574921123512" /> <value unit="mg/dL" xsi:type="PQ " value="0.5" /> <referenceRange> <observationRange> <text>0.0-1.0</text> </observationRange> </ referenceRange> </observation> </component> <component> <observation moodCode="EVN" classCode="OBS"> <templateId root= "10.29.840.1.542348...4.2" /> <id nullFlavor="NA" /> < code codeSystem="local" code="ALKP" displayName="ALKALINE PHOSPHATASE TOTAL" /> <statusCode code="completed" /> <effectiveTime value= "485966738377" /> <value unit="IU/L" xsi:type="PQ" value="85" /> <referenceRange> <observationRange> <text>45-117</ text> </observationRange> </referenceRange> </ observation> </component> </organizer> </entry> <entry> <organizer moodCode="EVN" classCode="BATTERY"> <templateId root= "10.29.840.1.393985.10..22.4.1" /> <id nullFlavor="NA" /> <code codeSystem="local" code="LACTG" displayName="LACTIC ACID" /> <statusCode code="completed" /> <component> <observation moodCode="EVN" classCode="OBS"> <templateId root="10.29.840.1.550508.10...4.2" /> <id nullFlavor="NA" /> <code codeSystem="local" code="LACT" displayName="LACTIC ACID" /> <statusCode code="completed" /> < effectiveTime value="082499812936" /> <value unit="mmol/L" xsi:type="PQ " value="1.6" /> <referenceRange> <observationRange> <text>0.5-2.0</text> </observationRange> </ referenceRange> </observation> </component> </organizer> </entry > <entry> <organizer moodCode="EVN" classCode="BATTERY"> <templateId root="10.29.840.1.910657.10..22.4.1" /> <id nullFlavor="NA" /> <code codeSystem="local" code="CBCD" displayName="CBC W/DIFF" /> <statusCode code ="completed" /> <component> <observation moodCode="EVN" classCode= "OBS"> <templateId root="10.29.840.1.874175.10.4.2" /> < id nullFlavor="NA" /> <code codeSystem="local" code="CBCCOM" displayName="COMMENT" /> <statusCode code="completed" /> < effectiveTime value="" /> <value unit="" xsi:type="PQ" value="REVIEWED" /> <referenceRange> <observationRange> <text /> </observationRange> </referenceRange> </observation> </component> <component> <observation moodCode="EVN" classCode="OBS"> <templateId root= "216.840.1.431336.07.02.22.4.2" /> <id nullFlavor="NA" /> < code codeSystem="local" code="EO#" displayName="EOSINOPHIL #" /> < statusCode code="completed" /> <effectiveTime value="" /> <value unit="k/cumm" xsi:type="PQ" value="0.1" /> < referenceRange> <observationRange> <text>0.1-0.5</text> </observationRange> </referenceRange> </observation > </component> <component> <observation moodCode="EVN" classCode="OBS"> <templateId root="216.840.1.401681.07.02.22.4.2" /> <id nullFlavor="NA" /> <code codeSystem="local" code="EO% " displayName="EOSINOPHIL %" /> <statusCode code="completed" /> <effectiveTime value="" /> <value unit="%" xsi: type="PQ" value="1" /> <interpretationCode codeSystem="local" code="*" /> <referenceRange> <observationRange> <text>2- 4</text> </observationRange> </referenceRange> </ observation> </component> <component> <observation moodCode= "EVN" classCode="OBS"> <templateId root="216.840.1.698094.07.02.224.2 " /> <id nullFlavor="NA" /> <code codeSystem="local" code="GR# " displayName="GRANULOCYTE #" /> <statusCode code="completed" /> <effectiveTime value="" /> <value unit="k/cumm" xsi: type="PQ" value="8.9" /> <referenceRange> <observationRange > <text>2.0-9.0</text> </observationRange> </ referenceRange> </observation> </component> <component> <observation moodCode="EVN" classCode="OBS"> <templateId root= "2.840.1.869110.07.02.224.2" /> <id nullFlavor="NA" /> < code codeSystem="local" code="GR%" displayName="GRANULOCYTE %" /> <statusCode code="completed" /> <effectiveTime value=" " /> <value unit="%" xsi:type="PQ" value="72" /> < referenceRange> <observationRange> <text>50-75</text> </observationRange> </referenceRange> </observation> </component> <component> <observation moodCode="EVN" classCode= "OBS"> <templateId root="216.840.1.727677.07.02.224.2" /> < id nullFlavor="NA" /> <code codeSystem="local" code="LY#" displayName= "LYMPHOCYTE #" /> <statusCode code="completed" /> < effectiveTime value="" /> <value unit="k/cumm" xsi:type="PQ " value="1.8" /> <referenceRange> <observationRange> <text>1.0-4.0</text> </observationRange> </ referenceRange> </observation> </component> <component> <observation moodCode="EVN" classCode="OBS"> <templateId root= "216.840.1.806853.10.4.2" /> <id nullFlavor="NA" /> < code codeSystem="local" code="LY%" displayName="LYMPHOCYTE %" /> <statusCode code="completed" /> <effectiveTime value="" /> <value unit="%" xsi:type="PQ" value="15" /> < interpretationCode codeSystem="local" code="*" /> <referenceRange> <observationRange> <text>20-30</text> </ observationRange> </referenceRange> </observation> </ component> <component> <observation moodCode="EVN" classCode="OBS"> <templateId root="10.29.840.1.217297.07.02.224.2" /> <id nullFlavor="NA" /> <code codeSystem="local" code="MCH" displayName= "MEAN CELL HGB" /> <statusCode code="completed" /> < effectiveTime value="" /> <value unit="pg" xsi:type="PQ" value="29.5" /> <referenceRange> <observationRange> <text>27.0-33.0</text> </observationRange> </ referenceRange> </observation> </component> <component> <observation moodCode="EVN" classCode="OBS"> <templateId root= "16.840.1.753271.07.02.22.4.2" /> <id nullFlavor="NA" /> < code codeSystem="local" code="MCHC" displayName="MEAN CELL HGB CONCENTRATION" / > <statusCode code="completed" /> <effectiveTime value= "" /> <value unit="g/dL" xsi:type="PQ" value="33.0" /> <referenceRange> <observationRange> <text>32.0- 37.0</text> </observationRange> </referenceRange> </ observation> </component> <component> <observation moodCode= "EVN" classCode="OBS"> <templateId root="2.16.840.1.793498.10...4.2 " /> <id nullFlavor="NA" /> <code codeSystem="local" code="MCV " displayName="MEAN CELL VOLUME" /> <statusCode code="completed" /> <effectiveTime value="" /> <value unit="fl" xsi:type ="PQ" value="89.3" /> <referenceRange> <observationRange> <text>80.0-100.0</text> </observationRange> </ referenceRange> </observation> </component> <component> <observation moodCode="EVN" classCode="OBS"> <templateId root= "216.840.1.056880.10...4.2" /> <id nullFlavor="NA" /> < code codeSystem="local" code="MO#" displayName="MONOCYTE #" /> < statusCode code="completed" /> <effectiveTime value="" /> <value unit="k/cumm" xsi:type="PQ" value="1.5" /> < interpretationCode codeSystem="local" code="*" /> <referenceRange> <observationRange> <text>0.1-1.0</text> </ observationRange> </referenceRange> </observation> </ component> <component> <observation moodCode="EVN" classCode="OBS"> <templateId root="2.16.840.1.135850.10.22.4.2" /> <id nullFlavor="NA" /> <code codeSystem="local" code="MO%" displayName= "MONOCYTE %" /> <statusCode code="completed" /> < effectiveTime value="" /> <value unit="%" xsi:type="PQ " value="12" /> <interpretationCode codeSystem="local" code="*" /> <referenceRange> <observationRange> <text>4-6</ text> </observationRange> </referenceRange> </ observation> </component> <component> <observation moodCode= "EVN" classCode="OBS"> <templateId root="16.840.1.406255.07.02.224.2 " /> <id nullFlavor="NA" /> <code codeSystem="local" code= "MPVT" displayName="MEAN PLATELET VOLUME" /> <statusCode code= "completed" /> <effectiveTime value="" /> <value unit="fl" xsi:type="PQ" value="9.9" /> <referenceRange> < observationRange> <text>8.5-10.9</text> </ observationRange> </referenceRange> </observation> </ component> <component> <observation moodCode="EVN" classCode="OBS"> <templateId root="216.840.1.872399.07.02.22.4.2" /> <id nullFlavor="NA" /> <code codeSystem="local" code="RBC" displayName=" RED BLOOD CELL" /> <statusCode code="completed" /> < effectiveTime value="" /> <value unit="m/cumm" xsi:type="PQ " value="4.38" /> <referenceRange> <observationRange> <text>4.00-6.00</text> </observationRange> </ referenceRange> </observation> </component> <component> <observation moodCode="EVN" classCode="OBS"> <templateId root= "2.16.840.1.372921...22.4.2" /> <id nullFlavor="NA" /> < code codeSystem="local" code="RDW" displayName="RED CELL DISTRIBUTION WIDTH" /> <statusCode code="completed" /> <effectiveTime value= "" /> <value unit="%" xsi:type="PQ" value="13.2" /> <referenceRange> <observationRange> <text>11.0- 15.6</text> </observationRange> </referenceRange> </ observation> </component> <component> <observation moodCode= "EVN" classCode="OBS"> <templateId root="2.16.840.1.103600.07.02..4.2 " /> <id nullFlavor="NA" /> <code codeSystem="local" code="WBC " displayName="WHITE BLOOD CELL" /> <statusCode code="completed" /> <effectiveTime value="" /> <value unit="k/cumm" xsi: type="PQ" value="12.3" /> <interpretationCode codeSystem="local" code= "*" /> <referenceRange> <observationRange> < text>5.0-10.0</text> </observationRange> </referenceRange> </observation> </component> <component> <observation moodCode="EVN" classCode="OBS"> <templateId root= "2.16.840.1.131093.07.024.2" /> <id nullFlavor="NA" /> < code codeSystem="local" code="HGBT" displayName="HEMOGLOBIN" /> < statusCode code="completed" /> <effectiveTime value="" /> <value unit="gm/dL" xsi:type="PQ" value="12.9" /> < interpretationCode codeSystem="local" code="*" /> <referenceRange> <observationRange> <text>14.0-18.0</text> </ observationRange> </referenceRange> </observation> </ component> <component> <observation moodCode="EVN" classCode="OBS"> <templateId root="216.840.1.651342.07.02.224.2" /> <id nullFlavor="NA" /> <code codeSystem="local" code="HCTT" displayName= "HEMATOCRIT" /> <statusCode code="completed" /> < effectiveTime value="" /> <value unit="%" xsi:type="PQ " value="39.1" /> <interpretationCode codeSystem="local" code="*" /> <referenceRange> <observationRange> <text>40.0- 54.0</text> </observationRange> </referenceRange> </ observation> </component> <component> <observation moodCode= "EVN" classCode="OBS"> <templateId root="216.840.1.162437.104.2 " /> <id nullFlavor="NA" /> <code codeSystem="local" code= "NRBC%" displayName="NRBC %" /> <statusCode code="completed" / > <effectiveTime value="" /> <value unit="/100WBC " xsi:type="PQ" value="0.0" /> <referenceRange> < observationRange> <text>0.0-0.0</text> </ observationRange> </referenceRange> </observation> </ component> <component> <observation moodCode="EVN" classCode="OBS"> <templateId root="10.29.840.1.273775.10.20.22.4.2" /> <id nullFlavor="NA" /> <code codeSystem="local" code="NRBC#" displayName= "NRBC #" /> <statusCode code="completed" /> <effectiveTime value="" /> <value unit="k/cumm" xsi:type="PQ" value="0.00 " /> <interpretationCode codeSystem="local" code="*" /> < referenceRange> <observationRange> <text>0.03-0.11</text > </observationRange> </referenceRange> </observation > </component> <component> <observation moodCode="EVN" classCode="OBS"> <templateId root="840.1.167514.10.4.2" /> <id nullFlavor="NA" /> <code codeSystem="local" code="PLTT" displayName="PLATELET COUNT" /> <statusCode code="completed" /> <effectiveTime value="" /> <value unit="k/cumm" xsi:type ="PQ" value="167" /> <referenceRange> <observationRange> <text>150-400</text> </observationRange> </ referenceRange> </observation> </component> <component> <observation moodCode="EVN" classCode="OBS"> <templateId root= "10.29.840.1.767159.10.20.22.4.2" /> <id nullFlavor="NA" /> < code codeSystem="local" code="IG%" displayName="IMMATURE GRANULOCYTE %" /> <statusCode code="completed" /> <effectiveTime value= "" /> <value unit="%" xsi:type="PQ" value="0.5" /> <referenceRange> <observationRange> <text>0.0-0.6< /text> </observationRange> </referenceRange> </ observation> </component> <component> <observation moodCode= "EVN" classCode="OBS"> <templateId root="16.840.1.925317.10..4.2 " /> <id nullFlavor="NA" /> <code codeSystem="local" code="IG# " displayName="IMMATURE GRANULOCYTE #" /> <statusCode code="completed" /> <effectiveTime value="" /> <value unit="k/cumm " xsi:type="PQ" value="0.06" /> <referenceRange> < observationRange> <text>0.00-0.09</text> </ observationRange> </referenceRange> </observation> </ component> </organizer> </entry> <entry> <organizer moodCode="EVN" classCode="BATTERY"> <templateId root="10.29.840.1.908451.10..4.1" /> <id nullFlavor="NA" /> <code codeSystem="local" code="BC" displayName= "BLOOD CULTURE" /> <statusCode code="completed" /> <component> <observation moodCode="EVN" classCode="OBS"> <templateId root= "10.29.840.1.095710.07.02.22.4.2" /> <id nullFlavor="NA" /> < code codeSystem="local" code="MB" displayName="Microbiology" /> < statusCode code="completed" /> <effectiveTime value="[id number]" /> <value xsi:type="ST" value="<pre><b>BLOOD CULTURE</b> See BelowIs this a Possible Sepsis/Sepsis patient? YesBLOOD CULTURE(F) Alicia Date/ Time: 06/20/2017 19:59 Mitzy Date/Time: 06/26/2017 06:05SOURCE: BLOODSPEC DESC: [id number] GROWTH AFTER [address] [id number]</pre>" /> <referenceRange > <observationRange> <text /> </ observationRange> </referenceRange> </observation> </ component> </organizer> </entry> <entry> <organizer moodCode="EVN" classCode="BATTERY"> <templateId root="2.16.840.1.146144.10.20.22.4.1" /> <id nullFlavor="NA" /> <code codeSystem="local" code="BC" displayName= "BLOOD CULTURE" /> <statusCode code="completed" /> <component> <observation moodCode="EVN" classCode="OBS"> <templateId root= "2.16.840.1.237889.10.20.22.4.2" /> <id nullFlavor="NA" /> < code codeSystem="local" code="MB" displayName="Microbiology" /> < statusCode code="completed" /> <effectiveTime value="[id number]" /> <value xsi:type="ST" value="<pre><b>BLOOD CULTURE</b> See BelowIs this a Possible Sepsis/Sepsis patient? YesBLOOD CULTURE(F) Alicia Date/ Time: 06/20/2017 19:59 Mitzy Date/Time: 06/26/2017 06:05SOURCE: BLOODSPEC DESC: [id number] GROWTH AFTER [address] [id number]</pre>" /> <referenceRange > <observationRange> <text /> </ observationRange> </referenceRange> </observation> </ component> </organizer> </entry> <entry> <organizer moodCode="EVN" classCode="BATTERY"> <templateId root="216.840.1.218340.10..22.4.1" /> <id nullFlavor="NA" /> <code codeSystem="local" code="LIVER" displayName="HEPATIC FUNCTION PANEL" /> <statusCode code="completed" /> <component> <observation moodCode="EVN" classCode="OBS"> < templateId root="216.840.1.108964.10..22.4.2" /> <id nullFlavor="NA " /> <code codeSystem="local" code="BILUC" displayName="BILI UNCONJUGATED" /> <statusCode code="completed" /> < effectiveTime value="[id number]" /> <value unit="mg/dL" xsi:type="PQ " value="0.4" /> <referenceRange> <observationRange> <text>0.0-0.7</text> </observationRange> </ referenceRange> </observation> </component> <component> <observation moodCode="EVN" classCode="OBS"> <templateId root= "216.840.1.932113.10..22.4.2" /> <id nullFlavor="NA" /> < code codeSystem="local" code="AST" displayName="AST/SGOT" /> < statusCode code="completed" /> <effectiveTime value="012313785699" /> <value unit="Units/L" xsi:type="PQ" value="32" /> < referenceRange> <observationRange> <text>10-37</text> </observationRange> </referenceRange> </observation> </component> <component> <observation moodCode="EVN" classCode= "OBS"> <templateId root="840.1.164284.1022.4.2" /> < id nullFlavor="NA" /> <code codeSystem="local" code="ALT" displayName= "ALT/SGPT" /> <statusCode code="completed" /> <effectiveTime value="" /> <value unit="Units/L" xsi:type="PQ" value="27" /> <referenceRange> <observationRange> <text>& lt; 66</text> </observationRange> </referenceRange> < /observation> </component> <component> <observation moodCode= "EVN" classCode="OBS"> <templateId root="16.840.1.716014.07.02.22.4.2 " /> <id nullFlavor="NA" /> <code codeSystem="local" code="TP " displayName="TOTAL PROTEIN" /> <statusCode code="completed" /> <effectiveTime value="" /> <value unit="gm/dL" xsi:type ="PQ" value="7.3" /> <referenceRange> <observationRange> <text>6.4-8.2</text> </observationRange> </ referenceRange> </observation> </component> <component> <observation moodCode="EVN" classCode="OBS"> <templateId root= "16.840.1.026544.1022.4.2" /> <id nullFlavor="NA" /> < code codeSystem="local" code="ALB" displayName="ALBUMIN" /> < statusCode code="completed" /> <effectiveTime value="969638869275" /> <value unit="gm/dL" xsi:type="PQ" value="3.2" /> < interpretationCode codeSystem="local" code="*" /> <referenceRange> <observationRange> <text>3.4-5.0</text> </ observationRange> </referenceRange> </observation> </ component> <component> <observation moodCode="EVN" classCode="OBS"> <templateId root="16.840.1.279325.10.4.2" /> <id nullFlavor="NA" /> <code codeSystem="local" code="BILTOT" displayName= "BILI TOTAL" /> <statusCode code="completed" /> < effectiveTime value="" /> <value unit="mg/dL" xsi:type="PQ " value="0.8" /> <referenceRange> <observationRange> <text>0.0-1.0</text> </observationRange> </ referenceRange> </observation> </component> <component> <observation moodCode="EVN" classCode="OBS"> <templateId root= "10.29.840.1.308841.07.02.22.4.2" /> <id nullFlavor="NA" /> < code codeSystem="local" code="ALKP" displayName="ALKALINE PHOSPHATASE TOTAL" /> <statusCode code="completed" /> <effectiveTime value= "" /> <value unit="IU/L" xsi:type="PQ" value="87" /> <referenceRange> <observationRange> <text>45-117</ text> </observationRange> </referenceRange> </ observation> </component> <component> <observation moodCode= "EVN" classCode="OBS"> <templateId root="10.29.840.1.833529.07.02.22.4.2 " /> <id nullFlavor="NA" /> <code codeSystem="local" code= "BILC" displayName="BILI CONJUGATED" /> <statusCode code="completed" / > <effectiveTime value="" /> <value unit="mg/dL" xsi:type="PQ" value="0.4" /> <interpretationCode codeSystem="local" code="*" /> <referenceRange> <observationRange> <text>0.0-0.3</text> </observationRange> </referenceRange > </observation> </component> </organizer> </entry> <entry> <organizer moodCode="EVN" classCode="BATTERY"> <templateId root= "16.840.1.561455.10..4.1" /> <id nullFlavor="NA" /> <code codeSystem="local" code="iCHEM8" displayName="CHEM/HEM PROFILE-BEDSIDE" /> <statusCode code="completed" /> <component> <observation moodCode= "EVN" classCode="OBS"> <templateId root="16.840.1.941173.07.02.22.4.2 " /> <id nullFlavor="NA" /> <code codeSystem="local" code="K" displayName="POTASSIUM" /> <statusCode code="completed" /> < effectiveTime value="085964530953" /> <value unit="mmol/L" xsi:type="PQ " value="3.4" /> <interpretationCode codeSystem="local" code="*" /> <referenceRange> <observationRange> <text>3.5-5.3 </text> </observationRange> </referenceRange> </ observation> </component> <component> <observation moodCode= "EVN" classCode="OBS"> <templateId root="10.29.840.1.768827.07.02.22.4.2 " /> <id nullFlavor="NA" /> <code codeSystem="local" code= "CMETHOD" displayName="METHOD" /> <statusCode code="completed" /> <effectiveTime value="" /> <value unit="" xsi:type="PQ " value="Bedside" /> <referenceRange> <observationRange> <text /> </observationRange> </referenceRange> </observation> </component> <component> <observation moodCode="EVN" classCode="OBS"> <templateId root= "16.840.1.384094.1022.4.2" /> <id nullFlavor="NA" /> < code codeSystem="local" code="GAP" displayName="ANION GAP" /> < statusCode code="completed" /> <effectiveTime value="" /> <value unit="mmol/L" xsi:type="PQ" value="18" /> < referenceRange> <observationRange> <text>10-20</text> </observationRange> </referenceRange> </observation> </component> <component> <observation moodCode="EVN" classCode= "OBS"> <templateId root="10.29.840.1.510002.07.02.22.4.2" /> < id nullFlavor="NA" /> <code codeSystem="local" code="HMETHOD" displayName="METHOD" /> <statusCode code="completed" /> < effectiveTime value="" /> <value unit="" xsi:type="PQ" value="Bedside" /> <referenceRange> <observationRange> <text /> </observationRange> </referenceRange> </observation> </component> <component> <observation moodCode="EVN" classCode="OBS"> <templateId root= "10.29.840.1.362638.1022.4.2" /> <id nullFlavor="NA" /> < code codeSystem="local" code="GLU" displayName="GLUCOSE" /> < statusCode code="completed" /> <effectiveTime value="" /> <value unit="mg/dL" xsi:type="PQ" value="80" /> < referenceRange> <observationRange> <text>70-99</text> </observationRange> </referenceRange> </observation> </component> <component> <observation moodCode="EVN" classCode= "OBS"> <templateId root="216.840.1.899491.10...4.2" /> < id nullFlavor="NA" /> <code codeSystem="local" code="BUN" displayName= "BLOOD UREA NITROGEN" /> <statusCode code="completed" /> < effectiveTime value="" /> <value unit="mg/dL" xsi:type="PQ " value="15" /> <referenceRange> <observationRange> <text>7-20</text> </observationRange> </referenceRange > </observation> </component> <component> <observation moodCode="EVN" classCode="OBS"> <templateId root= "216.840.1.861153.10...4.2" /> <id nullFlavor="NA" /> < code codeSystem="local" code="CREAT" displayName="CREATININE" /> < statusCode code="completed" /> <effectiveTime value="" /> <value unit="mg/dL" xsi:type="PQ" value="0.7" /> < referenceRange> <observationRange> <text>0.7-1.3</text> </observationRange> </referenceRange> </observation > </component> <component> <observation moodCode="EVN" classCode="OBS"> <templateId root="216.840.1.544465.10..22.4.2" /> <id nullFlavor="NA" /> <code codeSystem="local" code="HGBT" displayName="HEMOGLOBIN" /> <statusCode code="completed" /> < effectiveTime value="" /> <value unit="gm/dL" xsi:type="PQ " value="13.3" /> <interpretationCode codeSystem="local" code="*" /> <referenceRange> <observationRange> <text>14.0- 18.0</text> </observationRange> </referenceRange> </ observation> </component> <component> <observation moodCode= "EVN" classCode="OBS"> <templateId root="2.16.840.1.522820.10..22.4.2 " /> <id nullFlavor="NA" /> <code codeSystem="local" code= "HCTT" displayName="HEMATOCRIT" /> <statusCode code="completed" /> <effectiveTime value="" /> <value unit="%" xsi: type="PQ" value="39.0" /> <interpretationCode codeSystem="local" code= "*" /> <referenceRange> <observationRange> < text>40.0-54.0</text> </observationRange> </referenceRange> </observation> </component> <component> <observation moodCode="EVN" classCode="OBS"> <templateId root= "216.840.1.891758.10.20.22.4.2" /> <id nullFlavor="NA" /> < code codeSystem="local" code="NA" displayName="SODIUM" /> <statusCode code="completed" /> <effectiveTime value="" /> < value unit="mmol/L" xsi:type="PQ" value="134" /> <interpretationCode codeSystem="local" code="*" /> <referenceRange> < observationRange> <text>135-148</text> </ observationRange> </referenceRange> </observation> </ component> <component> <observation moodCode="EVN" classCode="OBS"> <templateId root="216.840.1.225411.10..4.2" /> <id nullFlavor="NA" /> <code codeSystem="local" code="CL" displayName= "CHLORIDE" /> <statusCode code="completed" /> <effectiveTime value="" /> <value unit="mmol/L" xsi:type="PQ" value="100" /> <referenceRange> <observationRange> <text>98 -110</text> </observationRange> </referenceRange> </ observation> </component> <component> <observation moodCode= "EVN" classCode="OBS"> <templateId root="216.840.1.489218...4.2 " /> <id nullFlavor="NA" /> <code codeSystem="local" code="CO2 " displayName="CARBON DIOXIDE" /> <statusCode code="completed" /> <effectiveTime value="" /> <value unit="mmol/L" xsi: type="PQ" value="20" /> <interpretationCode codeSystem="local" code="* " /> <referenceRange> <observationRange> <text> 21-32</text> </observationRange> </referenceRange> </ observation> </component> <component> <observation moodCode= "EVN" classCode="OBS"> <templateId root="16.840.1.151857...4.2 " /> <id nullFlavor="NA" /> <code codeSystem="local" code= "CAION" displayName="CALCIUM IONIZED" /> <statusCode code="completed" / > <effectiveTime value="" /> <value unit="mg/dL" xsi:type="PQ" value="4.0" /> <interpretationCode codeSystem="local" code="*" /> <referenceRange> <observationRange> <text>4.5-5.3</text> </observationRange> </referenceRange > </observation> </component> </organizer> </entry> <entry> <organizer moodCode="EVN" classCode="BATTERY"> <templateId root= "10.29.840.1.081521.10.4.1" /> <id nullFlavor="NA" /> <code codeSystem="local" code="LACTG" displayName="LACTIC ACID" /> <statusCode code="completed" /> <component> <observation moodCode="EVN" classCode="OBS"> <templateId root="10.29.840.1.137435.10..4.2" /> <id nullFlavor="NA" /> <code codeSystem="local" code="LACT" displayName="LACTIC ACID" /> <statusCode code="completed" /> < effectiveTime value="237370607026" /> <value unit="mmol/L" xsi:type="PQ " value="1.0" /> <referenceRange> <observationRange> <text>0.5-2.0</text> </observationRange> </ referenceRange> </observation> </component> </organizer> </entry > <entry> <organizer moodCode="EVN" classCode="BATTERY"> <templateId root="10.29.840.1.147800.10..4.1" /> <id nullFlavor="NA" /> <code codeSystem="local" code="ABG" displayName="ARTERIAL BLOOD GAS" /> < statusCode code="completed" /> <component> <observation moodCode= "EVN" classCode="OBS"> <templateId root="10.29.830.1.120962.10...4.2 " /> <id nullFlavor="NA" /> <code codeSystem="local" code="VIMAL " displayName="ABG BASE EXCESS" /> <statusCode code="completed" /> <effectiveTime value="595866651035" /> <value unit="meq/L" xsi: type="PQ" value="-5.4" /> <interpretationCode codeSystem="local" code= "*" /> <referenceRange> <observationRange> < text>-3.0-3.0</text> </observationRange> </referenceRange> </observation> </component> <component> <observation moodCode="EVN" classCode="OBS"> <templateId root= "10.29.840.1.205735.07.02.22.4.2" /> <id nullFlavor="NA" /> < code codeSystem="local" code="HCO3A" displayName="ABG BICARBONATE" /> < statusCode code="completed" /> <effectiveTime value="598038303118" /> <value unit="meq/L" xsi:type="PQ" value="17.1" /> < interpretationCode codeSystem="local" code="*" /> <referenceRange> <observationRange> <text>23.0-28.0</text> </ observationRange> </referenceRange> </observation> </ component> <component> <observation moodCode="EVN" classCode="OBS"> <templateId root="10.29.840.1.670898.10..4.2" /> <id nullFlavor="NA" /> <code codeSystem="local" code="PCO2A" displayName= "ABG PCO2" /> <statusCode code="completed" /> <effectiveTime value="388471344911" /> <value unit="mmHg" xsi:type="PQ" value="26" /> <interpretationCode codeSystem="local" code="*" /> < referenceRange> <observationRange> <text>34-45</text> </observationRange> </referenceRange> </observation> </component> <component> <observation moodCode="EVN" classCode= "OBS"> <templateId root="10.29.840.1.569883.10...4.2" /> < id nullFlavor="NA" /> <code codeSystem="local" code="PHAX" displayName= "ABG PH" /> <statusCode code="completed" /> <effectiveTime value="241225554057" /> <value unit="" xsi:type="PQ" value="7.43" /> <referenceRange> <observationRange> <text>7.35- 7.45</text> </observationRange> </referenceRange> </ observation> </component> <component> <observation moodCode= "EVN" classCode="OBS"> <templateId root="840.1.697069.10...4.2 " /> <id nullFlavor="NA" /> <code codeSystem="local" code= "PO2A" displayName="ABG PO2" /> <statusCode code="completed" /> <effectiveTime value="040422451114" /> <value unit="mmHg" xsi:type= "PQ" value="133" /> <interpretationCode codeSystem="local" code="*" /> <referenceRange> <observationRange> <text>75- 100</text> </observationRange> </referenceRange> </ observation> </component> <component> <observation moodCode= "EVN" classCode="OBS"> <templateId root="10.29.840.1.997171.10..22.4.2 " /> <id nullFlavor="NA" /> <code codeSystem="local" code= "SATA" displayName="ABG O2 SATURATION" /> <statusCode code="completed" /> <effectiveTime value="699390473063" /> <value unit="%" xsi:type="PQ" value="99" /> <referenceRange> < observationRange> <text>93-100</text> </observationRange > </referenceRange> </observation> </component> </ organizer> </entry> <entry> <organizer moodCode="EVN" classCode="BATTERY"> <templateId root="16.840.1.885957.10.20.22.4.1" /> <id nullFlavor= "NA" /> <code codeSystem="local" code="HIVPCR-QNT" displayName="RNA HIV 1 BY PCR QUANTITATIVE" /> <statusCode code="completed" /> <component> <observation moodCode="EVN" classCode="OBS"> <templateId root= "16.840.1.344147.10.20.22.4.2" /> <id nullFlavor="NA" /> < code codeSystem="local" code="HIV.PCR/QUANT" displayName="RNA HIV 1 QUANTITATIVE " /> <statusCode code="completed" /> <effectiveTime value= "155754060038" /> <value unit="/mL" xsi:type="PQ" value="706788" /> <referenceRange> <observationRange> <text><20 COPIES</text> </observationRange> </referenceRange> < /observation> </component> <component> <observation moodCode= "EVN" classCode="OBS"> <templateId root="10.29.840.1.709741.10.20.22.4.2 " /> <id nullFlavor="NA" /> <code codeSystem="local" code= "RNAHIVCOPIES" displayName="RNA HIV COPIES LOG 10" /> <statusCode code= "completed" /> <effectiveTime value="109696430124" /> <value unit="LOG10" xsi:type="PQ" value="5.04" /> <referenceRange> <observationRange> <text><1.30 LOG10</text> </ observationRange> </referenceRange> </observation> </ component> </organizer> </entry> <entry> <organizer moodCode="EVN" classCode="BATTERY"> <templateId root="10.29.840.1.634509.10..22.4.1" /> <id nullFlavor="NA" /> <code codeSystem="local" code="CBCD" displayName="CBC W/DIFF" /> <statusCode code="completed" /> <component > <observation moodCode="EVN" classCode="OBS"> <templateId root= "10.29.840.1.638841.10..4.2" /> <id nullFlavor="NA" /> < code codeSystem="local" code="EO#" displayName="EOSINOPHIL #" /> < statusCode code="completed" /> <effectiveTime value="138290767918" /> <value unit="k/cumm" xsi:type="PQ" value="0.1" /> < referenceRange> <observationRange> <text>0.1-0.5</text> </observationRange> </referenceRange> </observation > </component> <component> <observation moodCode="EVN" classCode="OBS"> <templateId root="10.29.840.1.499698.10.22.4.2" /> <id nullFlavor="NA" /> <code codeSystem="local" code="EO% " displayName="EOSINOPHIL %" /> <statusCode code="completed" /> <effectiveTime value="600471467111" /> <value unit="%" xsi: type="PQ" value="1" /> <interpretationCode codeSystem="local" code="*" /> <referenceRange> <observationRange> <text>2- 4</text> </observationRange> </referenceRange> </ observation> </component> <component> <observation moodCode= "EVN" classCode="OBS"> <templateId root="216.840.1.258913.10...4.2 " /> <id nullFlavor="NA" /> <code codeSystem="local" code="GR# " displayName="GRANULOCYTE #" /> <statusCode code="completed" /> <effectiveTime value="949327773792" /> <value unit="k/cumm" xsi: type="PQ" value="8.0" /> <referenceRange> <observationRange > <text>2.0-9.0</text> </observationRange> </ referenceRange> </observation> </component> <component> <observation moodCode="EVN" classCode="OBS"> <templateId root= "16.840.1.479013.10...4.2" /> <id nullFlavor="NA" /> < code codeSystem="local" code="GR%" displayName="GRANULOCYTE %" /> <statusCode code="completed" /> <effectiveTime value="419180174766 " /> <value unit="%" xsi:type="PQ" value="72" /> < referenceRange> <observationRange> <text>50-75</text> </observationRange> </referenceRange> </observation> </component> <component> <observation moodCode="EVN" classCode= "OBS"> <templateId root="216.840.1.627153.07.02.22.4.2" /> < id nullFlavor="NA" /> <code codeSystem="local" code="LY#" displayName= "LYMPHOCYTE #" /> <statusCode code="completed" /> < effectiveTime value="079768635212" /> <value unit="k/cumm" xsi:type="PQ " value="1.7" /> <referenceRange> <observationRange> <text>1.0-4.0</text> </observationRange> </ referenceRange> </observation> </component> <component> <observation moodCode="EVN" classCode="OBS"> <templateId root= "216.840.1.459891.07.02.224.2" /> <id nullFlavor="NA" /> < code codeSystem="local" code="LY%" displayName="LYMPHOCYTE %" /> <statusCode code="completed" /> <effectiveTime value="276289847763" /> <value unit="%" xsi:type="PQ" value="15" /> < interpretationCode codeSystem="local" code="*" /> <referenceRange> <observationRange> <text>20-30</text> </ observationRange> </referenceRange> </observation> </ component> <component> <observation moodCode="EVN" classCode="OBS"> <templateId root="10.29.840.1.713535.07.02.22.4.2" /> <id nullFlavor="NA" /> <code codeSystem="local" code="MCH" displayName= "MEAN CELL HGB" /> <statusCode code="completed" /> < effectiveTime value="081105050825" /> <value unit="pg" xsi:type="PQ" value="29.9" /> <referenceRange> <observationRange> <text>27.0-33.0</text> </observationRange> </ referenceRange> </observation> </component> <component> <observation moodCode="EVN" classCode="OBS"> <templateId root= "16.840.1.533554.10.4.2" /> <id nullFlavor="NA" /> < code codeSystem="local" code="MCHC" displayName="MEAN CELL HGB CONCENTRATION" / > <statusCode code="completed" /> <effectiveTime value= "255234962314" /> <value unit="g/dL" xsi:type="PQ" value="34.3" /> <referenceRange> <observationRange> <text>32.0- 37.0</text> </observationRange> </referenceRange> </ observation> </component> <component> <observation moodCode= "EVN" classCode="OBS"> <templateId root="10.29.840.1.333100.07.02.22.4.2 " /> <id nullFlavor="NA" /> <code codeSystem="local" code="MCV " displayName="MEAN CELL VOLUME" /> <statusCode code="completed" /> <effectiveTime value="287541581441" /> <value unit="fl" xsi:type ="PQ" value="87.4" /> <referenceRange> <observationRange> <text>80.0-100.0</text> </observationRange> </ referenceRange> </observation> </component> <component> <observation moodCode="EVN" classCode="OBS"> <templateId root= "10.29.840.1.461623.07.02.22.4.2" /> <id nullFlavor="NA" /> < code codeSystem="local" code="MO#" displayName="MONOCYTE #" /> < statusCode code="completed" /> <effectiveTime value="149023715087" /> <value unit="k/cumm" xsi:type="PQ" value="1.3" /> < interpretationCode codeSystem="local" code="*" /> <referenceRange> <observationRange> <text>0.1-1.0</text> </ observationRange> </referenceRange> </observation> </ component> <component> <observation moodCode="EVN" classCode="OBS"> <templateId root="840.1.845021.1022.4.2" /> <id nullFlavor="NA" /> <code codeSystem="local" code="MO%" displayName= "MONOCYTE %" /> <statusCode code="completed" /> < effectiveTime value="944356082292" /> <value unit="%" xsi:type="PQ " value="12" /> <interpretationCode codeSystem="local" code="*" /> <referenceRange> <observationRange> <text>4-6</ text> </observationRange> </referenceRange> </ observation> </component> <component> <observation moodCode= "EVN" classCode="OBS"> <templateId root="840.1.884647.10..4.2 " /> <id nullFlavor="NA" /> <code codeSystem="local" code= "MPVT" displayName="MEAN PLATELET VOLUME" /> <statusCode code= "completed" /> <effectiveTime value="597894935323" /> <value unit="fl" xsi:type="PQ" value="9.6" /> <referenceRange> < observationRange> <text>8.5-10.9</text> </ observationRange> </referenceRange> </observation> </ component> <component> <observation moodCode="EVN" classCode="OBS"> <templateId root=".1.060218.10.20.22.4.2" /> <id nullFlavor="NA" /> <code codeSystem="local" code="RBC" displayName=" RED BLOOD CELL" /> <statusCode code="completed" /> < effectiveTime value="495355152868" /> <value unit="m/cumm" xsi:type="PQ " value="3.74" /> <interpretationCode codeSystem="local" code="*" /> <referenceRange> <observationRange> <text>4.00- 6.00</text> </observationRange> </referenceRange> </ observation> </component> <component> <observation moodCode= "EVN" classCode="OBS"> <templateId root="10.29.840.1.044430.10...4.2 " /> <id nullFlavor="NA" /> <code codeSystem="local" code="RDW " displayName="RED CELL DISTRIBUTION WIDTH" /> <statusCode code= "completed" /> <effectiveTime value="594197389956" /> <value unit="%" xsi:type="PQ" value="13.2" /> <referenceRange> <observationRange> <text>11.0-15.6</text> </ observationRange> </referenceRange> </observation> </ component> <component> <observation moodCode="EVN" classCode="OBS"> <templateId root="10.29.840.1.873447.10..22.4.2" /> <id nullFlavor="NA" /> <code codeSystem="local" code="WBC" displayName= "WHITE BLOOD CELL" /> <statusCode code="completed" /> < effectiveTime value="756392027449" /> <value unit="k/cumm" xsi:type="PQ " value="11.2" /> <interpretationCode codeSystem="local" code="*" /> <referenceRange> <observationRange> <text>5.0- 10.0</text> </observationRange> </referenceRange> </ observation> </component> <component> <observation moodCode= "EVN" classCode="OBS"> <templateId root="216.840.1.692933.10...4.2 " /> <id nullFlavor="NA" /> <code codeSystem="local" code= "HGBT" displayName="HEMOGLOBIN" /> <statusCode code="completed" /> <effectiveTime value="305638482553" /> <value unit="gm/dL" xsi: type="PQ" value="11.2" /> <interpretationCode codeSystem="local" code= "*" /> <referenceRange> <observationRange> < text>14.0-18.0</text> </observationRange> </referenceRange> </observation> </component> <component> <observation moodCode="EVN" classCode="OBS"> <templateId root= "16.840.1.986281.10...4.2" /> <id nullFlavor="NA" /> < code codeSystem="local" code="HCTT" displayName="HEMATOCRIT" /> < statusCode code="completed" /> <effectiveTime value="545427303749" /> <value unit="%" xsi:type="PQ" value="32.7" /> < interpretationCode codeSystem="local" code="*" /> <referenceRange> <observationRange> <text>40.0-54.0</text> </ observationRange> </referenceRange> </observation> </ component> <component> <observation moodCode="EVN" classCode="OBS"> <templateId root="216.840.1.580821.104.2" /> <id nullFlavor="NA" /> <code codeSystem="local" code="NRBC%" displayName="NRBC %" /> <statusCode code="completed" /> < effectiveTime value="267413618006" /> <value unit="/100WBC" xsi:type= "PQ" value="0.0" /> <referenceRange> <observationRange> <text>0.0-0.0</text> </observationRange> </ referenceRange> </observation> </component> <component> <observation moodCode="EVN" classCode="OBS"> <templateId root= "216.840.1.398424.07.02.224.2" /> <id nullFlavor="NA" /> < code codeSystem="local" code="NRBC#" displayName="NRBC #" /> < statusCode code="completed" /> <effectiveTime value="636240583375" /> <value unit="k/cumm" xsi:type="PQ" value="0.00" /> < interpretationCode codeSystem="local" code="*" /> <referenceRange> <observationRange> <text>0.03-0.11</text> </ observationRange> </referenceRange> </observation> </ component> <component> <observation moodCode="EVN" classCode="OBS"> <templateId root="16.840.1.727725.07.02.224.2" /> <id nullFlavor="NA" /> <code codeSystem="local" code="PLTT" displayName= "PLATELET COUNT" /> <statusCode code="completed" /> < effectiveTime value="471316281111" /> <value unit="k/cumm" xsi:type="PQ " value="152" /> <referenceRange> <observationRange> <text>150-400</text> </observationRange> </ referenceRange> </observation> </component> <component> <observation moodCode="EVN" classCode="OBS"> <templateId root= "216.840.1.245400.10..22.4.2" /> <id nullFlavor="NA" /> < code codeSystem="local" code="IG%" displayName="IMMATURE GRANULOCYTE %" /> <statusCode code="completed" /> <effectiveTime value= "629326074173" /> <value unit="%" xsi:type="PQ" value="0.4" /> <referenceRange> <observationRange> <text>0.0-0.6< /text> </observationRange> </referenceRange> </ observation> </component> <component> <observation moodCode= "EVN" classCode="OBS"> <templateId root="10.29.840.1.235888.07.02.22.4.2 " /> <id nullFlavor="NA" /> <code codeSystem="local" code="IG# " displayName="IMMATURE GRANULOCYTE #" /> <statusCode code="completed" /> <effectiveTime value="139243220317" /> <value unit="k/cumm " xsi:type="PQ" value="0.05" /> <referenceRange> < observationRange> <text>0.00-0.09</text> </ observationRange> </referenceRange> </observation> </ component> </organizer> </entry> <entry> <organizer moodCode="EVN" classCode="BATTERY"> <templateId root="216.840.1.222090.10..4.1" /> <id nullFlavor="NA" /> <code codeSystem="local" code="LACTG" displayName="LACTIC ACID" /> <statusCode code="completed" /> < component> <observation moodCode="EVN" classCode="OBS"> < templateId root="2.16.840.1.881472.10..22.4.2" /> <id nullFlavor="NA " /> <code codeSystem="local" code="LACT" displayName="LACTIC ACID" /> <statusCode code="completed" /> <effectiveTime value= "063246835297" /> <value unit="mmol/L" xsi:type="PQ" value="0.8" /> <referenceRange> <observationRange> <text>0.5-2.0 </text> </observationRange> </referenceRange> </ observation> </component> </organizer> </entry> <entry> <organizer moodCode="EVN" classCode="BATTERY"> <templateId root= "2.16.840.1.815751.10..22.4.1" /> <id nullFlavor="NA" /> <code codeSystem="local" code="RENAL" displayName="RENAL FUNCTION PANEL" /> < statusCode code="completed" /> <component> <observation moodCode= "EVN" classCode="OBS"> <templateId root="2.16.840.1.414345.10.20.22.4.2 " /> <id nullFlavor="NA" /> <code codeSystem="local" code="K" displayName="POTASSIUM" /> <statusCode code="completed" /> < effectiveTime value="242230396364" /> <value unit="mmol/L" xsi:type="PQ " value="3.4" /> <interpretationCode codeSystem="local" code="*" /> <referenceRange> <observationRange> <text>3.5-5.3 </text> </observationRange> </referenceRange> </ observation> </component> <component> <observation moodCode= "EVN" classCode="OBS"> <templateId root="16.840.1.297001.10..22.4.2 " /> <id nullFlavor="NA" /> <code codeSystem="local" code= "eGFR" displayName="EST GFR (MDRD)" /> <statusCode code="completed" /> <effectiveTime value="147166863168" /> <value unit="mL/min" xsi:type="PQ" value="> 60" /> <referenceRange> < observationRange> <text>> 59</text> </ observationRange> </referenceRange> </observation> </ component> <component> <observation moodCode="EVN" classCode="OBS"> <templateId root="10.29.840.1.659702.10...4.2" /> <id nullFlavor="NA" /> <code codeSystem="local" code="GAP" displayName= "ANION GAP" /> <statusCode code="completed" /> <effectiveTime value="839494854271" /> <value unit="mmol/L" xsi:type="PQ" value="7" / > <referenceRange> <observationRange> <text>5- 15</text> </observationRange> </referenceRange> </ observation> </component> <component> <observation moodCode= "EVN" classCode="OBS"> <templateId root="10.29.840.1.190514.10..22.4.2 " /> <id nullFlavor="NA" /> <code codeSystem="local" code= "eCrCl" displayName="EST CrCl (CG)" /> <statusCode code="completed" /> <effectiveTime value="082016140369" /> <value unit="mL/min" xsi:type="PQ" value="> 60" /> <referenceRange> < observationRange> <text>> 59</text> </ observationRange> </referenceRange> </observation> </ component> <component> <observation moodCode="EVN" classCode="OBS"> <templateId root="10.29.840.1.105209.10.4.2" /> <id nullFlavor="NA" /> <code codeSystem="local" code="GLU" displayName= "GLUCOSE" /> <statusCode code="completed" /> <effectiveTime value="819080330140" /> <value unit="mg/dL" xsi:type="PQ" value="85" / > <referenceRange> <observationRange> <text>70- 99</text> </observationRange> </referenceRange> </ observation> </component> <component> <observation moodCode= "EVN" classCode="OBS"> <templateId root="10.29.840.1.769287.07.02.22.4.2 " /> <id nullFlavor="NA" /> <code codeSystem="local" code="CA " displayName="CALCIUM" /> <statusCode code="completed" /> < effectiveTime value="019225305934" /> <value unit="mg/dL" xsi:type="PQ " value="7.8" /> <interpretationCode codeSystem="local" code="*" /> <referenceRange> <observationRange> <text>8.5- 10.1</text> </observationRange> </referenceRange> </ observation> </component> <component> <observation moodCode= "EVN" classCode="OBS"> <templateId root="10.29.840.1.902100.07.02.22.4.2 " /> <id nullFlavor="NA" /> <code codeSystem="local" code="BUN " displayName="BLOOD UREA NITROGEN" /> <statusCode code="completed" /> <effectiveTime value="654496399866" /> <value unit="mg/dL" xsi:type="PQ" value="12" /> <referenceRange> < observationRange> <text>7-20</text> </observationRange> </referenceRange> </observation> </component> < component> <observation moodCode="EVN" classCode="OBS"> < templateId root="216.840.1.466840.10.22.4.2" /> <id nullFlavor="NA " /> <code codeSystem="local" code="CREAT" displayName="CREATININE" /> <statusCode code="completed" /> <effectiveTime value= "503177311478" /> <value unit="mg/dL" xsi:type="PQ" value="0.8" /> <referenceRange> <observationRange> <text>0.7-1.3< /text> </observationRange> </referenceRange> </ observation> </component> <component> <observation moodCode= "EVN" classCode="OBS"> <templateId root="16.840.1.114834.10...4.2 " /> <id nullFlavor="NA" /> <code codeSystem="local" code="NA " displayName="SODIUM" /> <statusCode code="completed" /> < effectiveTime value="618167348258" /> <value unit="mmol/L" xsi:type="PQ " value="132" /> <interpretationCode codeSystem="local" code="*" /> <referenceRange> <observationRange> <text>135-148 </text> </observationRange> </referenceRange> </ observation> </component> <component> <observation moodCode= "EVN" classCode="OBS"> <templateId root="216.840.1.863525.10..4.2 " /> <id nullFlavor="NA" /> <code codeSystem="local" code="CL " displayName="CHLORIDE" /> <statusCode code="completed" /> < effectiveTime value="827214567430" /> <value unit="mmol/L" xsi:type="PQ " value="102" /> <referenceRange> <observationRange> <text>98-110</text> </observationRange> </ referenceRange> </observation> </component> <component> <observation moodCode="EVN" classCode="OBS"> <templateId root= "2.16.840.1.476418.10..4.2" /> <id nullFlavor="NA" /> < code codeSystem="local" code="CO2" displayName="CARBON DIOXIDE" /> < statusCode code="completed" /> <effectiveTime value="922963889270" /> <value unit="mmol/L" xsi:type="PQ" value="23" /> < referenceRange> <observationRange> <text>21-32</text> </observationRange> </referenceRange> </observation> </component> <component> <observation moodCode="EVN" classCode= "OBS"> <templateId root="2.16.840.1.311528.10...4.2" /> < id nullFlavor="NA" /> <code codeSystem="local" code="ALB" displayName= "ALBUMIN" /> <statusCode code="completed" /> <effectiveTime value="906130562477" /> <value unit="gm/dL" xsi:type="PQ" value="2.6" / > <interpretationCode codeSystem="local" code="*" /> < referenceRange> <observationRange> <text>3.4-5.0</text> </observationRange> </referenceRange> </observation > </component> <component> <observation moodCode="EVN" classCode="OBS"> <templateId root="2.16.840.1.105397.10.20.22.4.2" /> <id nullFlavor="NA" /> <code codeSystem="local" code="PHOS" displayName="PHOSPHORUS" /> <statusCode code="completed" /> < effectiveTime value="801407821172" /> <value unit="mg/dL" xsi:type="PQ " value="2.6" /> <referenceRange> <observationRange> <text>2.5-4.9</text> </observationRange> </ referenceRange> </observation> </component> </organizer> </entry > <entry> <organizer moodCode="EVN" classCode="BATTERY"> <templateId root="2.16.840.1.594817.10.20.22.4.1" /> <id nullFlavor="NA" /> <code codeSystem="local" code="GIPROFILE" displayName="GASTROINTESTINAL PROFILE" /> <statusCode code="completed" /> <component> <observation moodCode="EVN" classCode="OBS"> <templateId root= "2.16.840.1.448789.10.20.22.4.2" /> <id nullFlavor="NA" /> < code codeSystem="local" code="MB" displayName="Microbiology" /> < statusCode code="completed" /> <effectiveTime value="452520569196" /> <value xsi:type="ST" value="<pre><b>GASTROINTESTINAL PROFILE</b> See BelowGASTROINTESTINAL PROFILE(F) Alicia Date/Time: 06/21/2017 09:49 Mitzy Date/Time: 06/21/2017 14:07SOURCE: STOOLSPEC DESC: ADENOVIRUS F 40/41NOT DETECTEDASTROVIRUSNOT DETECTEDCAMPYLOBACTERNOT DETECTEDCRYPTOSPORIDIUMNOT DETECTEDCYCLOSPORA CAYETANENSISNOT DETECTEDENTEROAGGREGATIVE E.COLINOT DETECTEDE.COLI 0157NOT DETECTEDSHIGELLA / EIECNOT DETECTEDENTAMOEBA HISTOLYTICANOT DETECTEDENTEROPATHOGENIC E.COLINOT DETECTEDENTEROTOXIGENIC E.COLINOT DETECTEDGIARDIA LAMBLIANOT DETECTEDNOROVIRUS GI/GIINOT DETECTEDPLESIOMONAS SHIGELLOIDESNOT DETECTEDROTAVIRUS ANOT DETECTEDSALMONELLANOT DETECTEDSAPOVIRUSNOT DETECTEDSHIGA-LIKE TOXIN E.COLINOT DETECTEDVIBRIO CHOLERAENOT DETECTEDVIBRIONOT DETECTEDYERSINIA ENTEROCOLITICANOT DETECTED[address] [address]</pre>" /> <referenceRange> <observationRange> <text /> </observationRange> </referenceRange> </observation> </ component> </organizer> </entry> <entry> <organizer moodCode="EVN" classCode="BATTERY"> <templateId root="2.16.840.1.454102.10.20.22.4.1" /> <id nullFlavor="NA" /> <code codeSystem="local" code="CDTOX" displayName="CLOSTRIDIUM DIFFICILE DNA" /> <statusCode code="completed" /> <component> <observation moodCode="EVN" classCode="OBS"> < templateId root="2.16.840.1.810692.10.20.22.4.2" /> <id nullFlavor="NA " /> <code codeSystem="local" code="MB" displayName="Microbiology" /> <statusCode code="completed" /> <effectiveTime value= "406072555625" /> <value xsi:type="ST" value="<pre><b>CLOSTRIDIUM DIFFICILE DNA</b> See BelowPatient meets both criteria for C Diff testing: YCLOSTRIDIUM DIFFICILE DNA(F) Alicia Date/Time: 06/21/2017 09:49 Mitzy Date/Time: 06/21/2017 14:08SOURCE: STOOLSPEC DESC: LIQUIDC.DIFFICILE TOXINNEGATIVE FOR CLOSTRIDIUM DIFFICILE TOXIGENIC B GENE BY PCR[address] [place] [address]</pre>" /> < referenceRange> <observationRange> <text /> < /observationRange> </referenceRange> </observation> </ component> </organizer> </entry> <entry> <organizer moodCode="EVN" classCode="BATTERY"> <templateId root="2.16.840.1.924348.10.20.22.4.1" /> <id nullFlavor="NA" /> <code codeSystem="local" code="OP" displayName= "OVA AND PARASITES" /> <statusCode code="completed" /> <component> <observation moodCode="EVN" classCode="OBS"> <templateId root= "2.16.840.1.828711.10.20.22.4.2" /> <id nullFlavor="NA" /> < code codeSystem="local" code="MB" displayName="Microbiology" /> < statusCode code="completed" /> <effectiveTime value="138043009106" /> <value xsi:type="ST" value="<pre><b>OVA AND PARASITES</b> See BelowOVA AND PARASITES(F) Alicia Date/Time: 06/21/2017 09:49 Mitzy Date/Time: 06/22/2017 11:42SOURCE: STOOLSPEC DESC: CRYPTOSPORIDIUM, CYCLOSPORA AND MICROSPORIDIA WILL NOT BE DETECTED BY THIS METHOD.OP REPORTNO OVA AND/OR PARASITES SEEN[address] [address]</pre>" /> <referenceRange> < observationRange> <text /> </observationRange> </referenceRange> </observation> </component> </organizer> </ entry> <entry> <organizer moodCode="EVN" classCode="BATTERY"> < templateId root="2.16.840.1.066799.10.20.22.4.1" /> <id nullFlavor="NA" /> <code codeSystem="local" code="UA" displayName="URINALYSIS, ROUTINE" /> <statusCode code="completed" /> <component> <observation moodCode="EVN" classCode="OBS"> <templateId root= "10.29.840.1.773057.10..4.2" /> <id nullFlavor="NA" /> < code codeSystem="local" code="LEUESU" displayName="UA LEUKOCYTE ESTERASE DIPSTICK" /> <statusCode code="completed" /> <effectiveTime value="699193181471" /> <value unit="" xsi:type="PQ" value="TRACE" /> <interpretationCode codeSystem="local" code="*" /> < referenceRange> <observationRange> <text>NEGATIVE</text > </observationRange> </referenceRange> </observation > </component> <component> <observation moodCode="EVN" classCode="OBS"> <templateId root="840.1.419737.07.02.224.2" /> <id nullFlavor="NA" /> <code codeSystem="local" code="NITRIU" displayName="UA NITRITE DIPSTICK" /> <statusCode code="completed" /> <effectiveTime value="614018059584" /> <value unit="" xsi:type= "PQ" value="NEGATIVE" /> <referenceRange> <observationRange > <text>NEGATIVE</text> </observationRange> </ referenceRange> </observation> </component> <component> <observation moodCode="EVN" classCode="OBS"> <templateId root= "10.29.840.1.637052.07.02.22.4.2" /> <id nullFlavor="NA" /> < code codeSystem="local" code="PROTEIU" displayName="UA PROTEIN DIPSTICK" /> <statusCode code="completed" /> <effectiveTime value= "197229002295" /> <value unit="" xsi:type="PQ" value="1+" /> < interpretationCode codeSystem="local" code="*" /> <referenceRange> <observationRange> <text>NEGATIVE</text> </ observationRange> </referenceRange> </observation> </ component> <component> <observation moodCode="EVN" classCode="OBS"> <templateId root="10.29.840.1.345928.07.02.22.4.2" /> <id nullFlavor="NA" /> <code codeSystem="local" code="DGLUU" displayName= "UA GLUCOSE DIPSTICK" /> <statusCode code="completed" /> < effectiveTime value="895333354843" /> <value unit="" xsi:type="PQ" value="NEGATIVE" /> <referenceRange> <observationRange> <text>NEGATIVE</text> </observationRange> </ referenceRange> </observation> </component> <component> <observation moodCode="EVN" classCode="OBS"> <templateId root= "16.840.1.212616.07.02.22.4.2" /> <id nullFlavor="NA" /> < code codeSystem="local" code="KETONU" displayName="UA KETONE DIPSTICK" /> <statusCode code="completed" /> <effectiveTime value="945033299314 " /> <value unit="" xsi:type="PQ" value="2+" /> < interpretationCode codeSystem="local" code="*" /> <referenceRange> <observationRange> <text>NEGATIVE</text> </ observationRange> </referenceRange> </observation> </ component> <component> <observation moodCode="EVN" classCode="OBS"> <templateId root="10.29.840.1.506884..4.2" /> <id nullFlavor="NA" /> <code codeSystem="local" code="UROBILU" displayName= "UA UROBILINOGEN DIPSTICK" /> <statusCode code="completed" /> <effectiveTime value="788269822801" /> <value unit="" xsi:type="PQ" value="2+" /> <interpretationCode codeSystem="local" code="*" /> <referenceRange> <observationRange> <text>NORMAL</ text> </observationRange> </referenceRange> </ observation> </component> <component> <observation moodCode= "EVN" classCode="OBS"> <templateId root="10.29.840.1.543673.07.02.22.4.2 " /> <id nullFlavor="NA" /> <code codeSystem="local" code= "BILU" displayName="UA BILIRUBIN DIPSTICK" /> <statusCode code= "completed" /> <effectiveTime value="772173619990" /> <value unit="" xsi:type="PQ" value="POSITIVE" /> <interpretationCode codeSystem="local" code="*" /> <referenceRange> < observationRange> <text>NEGATIVE</text> </ observationRange> </referenceRange> </observation> </ component> <component> <observation moodCode="EVN" classCode="OBS"> <templateId root="10.29.840.1.156234...4.2" /> <id nullFlavor="NA" /> <code codeSystem="local" code="MARY" displayName="UA BLOOD DIPSTICK" /> <statusCode code="completed" /> < effectiveTime value="064865944600" /> <value unit="" xsi:type="PQ" value="NEGATIVE" /> <referenceRange> <observationRange> <text>NEGATIVE</text> </observationRange> </ referenceRange> </observation> </component> <component> <observation moodCode="EVN" classCode="OBS"> <templateId root= "2.16.840.1.605013.10.4.2" /> <id nullFlavor="NA" /> < code codeSystem="local" code="SPGRU" displayName="UA SPECIFIC GRAVITY" /> <statusCode code="completed" /> <effectiveTime value="469232837102 " /> <value unit="" xsi:type="PQ" value="1.019" /> < referenceRange> <observationRange> <text>1.015-1.025</ text> </observationRange> </referenceRange> </ observation> </component> <component> <observation moodCode= "EVN" classCode="OBS"> <templateId root="216.840.1.775780.07.02.22.4.2 " /> <id nullFlavor="NA" /> <code codeSystem="local" code="CINDY " displayName="UR PH" /> <statusCode code="completed" /> < effectiveTime value="976646518245" /> <value unit="" xsi:type="PQ" value="5.0" /> <referenceRange> <observationRange> <text>5.0-7.0</text> </observationRange> </ referenceRange> </observation> </component> </organizer> </entry > <entry> <organizer moodCode="EVN" classCode="BATTERY"> <templateId root="2.16.840.1.960309...4.1" /> <id nullFlavor="NA" /> <code codeSystem="local" code="UAMICRO" displayName="UA MICROSCOPIC" /> < statusCode code="completed" /> <component> <observation moodCode= "EVN" classCode="OBS"> <templateId root="16.840.1.948129.10..22.4.2 " /> <id nullFlavor="NA" /> <code codeSystem="local" code= "BACU" displayName="UA BACTERIA" /> <statusCode code="completed" /> <effectiveTime value="541353408788" /> <value unit="" xsi:type= "PQ" value="2+" /> <interpretationCode codeSystem="local" code="*" /> <referenceRange> <observationRange> <text> NEGATIVE</text> </observationRange> </referenceRange> </observation> </component> <component> <observation moodCode ="EVN" classCode="OBS"> <templateId root= "840.1.954019.07.02.22.4.2" /> <id nullFlavor="NA" /> < code codeSystem="local" code="EPIU" displayName="UA EPITHELIAL CELLS" /> <statusCode code="completed" /> <effectiveTime value="516024641701" /> <value unit="epi/hpf" xsi:type="PQ" value="1+" /> < referenceRange> <observationRange> <text>0 - 1+</text> </observationRange> </referenceRange> </observation> </component> <component> <observation moodCode="EVN" classCode ="OBS"> <templateId root="10.29.840.1.976878.10..4.2" /> < id nullFlavor="NA" /> <code codeSystem="local" code="MUCUSU" displayName="UA MUCUS" /> <statusCode code="completed" /> < effectiveTime value="195868748752" /> <value unit="" xsi:type="PQ" value="2+" /> <interpretationCode codeSystem="local" code="*" /> <referenceRange> <observationRange> <text>NEG TO 1+< /text> </observationRange> </referenceRange> </ observation> </component> <component> <observation moodCode= "EVN" classCode="OBS"> <templateId root="216.840.1.640369.10...4.2 " /> <id nullFlavor="NA" /> <code codeSystem="local" code= "RBCU" displayName="UA RBC" /> <statusCode code="completed" /> <effectiveTime value="615535340692" /> <value unit="rbc/hpf" xsi:type ="PQ" value="0" /> <referenceRange> <observationRange> <text>0 - 3</text> </observationRange> </ referenceRange> </observation> </component> <component> <observation moodCode="EVN" classCode="OBS"> <templateId root= "10.29.840.1.156830...4.2" /> <id nullFlavor="NA" /> < code codeSystem="local" code="UAVOL" displayName="UA VOLUME FOR EXAM" /> <statusCode code="completed" /> <effectiveTime value="191054782064" /> <value unit="mL" xsi:type="PQ" value="12.0" /> < referenceRange> <observationRange> <text>(12mL STD)</ text> </observationRange> </referenceRange> </ observation> </component> <component> <observation moodCode= "EVN" classCode="OBS"> <templateId root="10.29.840.1.317534.10.20.22.4.2 " /> <id nullFlavor="NA" /> <code codeSystem="local" code= "WBCU" displayName="UA WBC" /> <statusCode code="completed" /> <effectiveTime value="021485669922" /> <value unit="wbc/hpf" xsi:type ="PQ" value="0-1" /> <referenceRange> <observationRange> <text>0 - 5</text> </observationRange> </ referenceRange> </observation> </component> </organizer> </entry > <entry> <organizer moodCode="EVN" classCode="BATTERY"> <templateId root="216.840.1.434244.10..22.4.1" /> <id nullFlavor="NA" /> <code codeSystem="local" code="DRUGAB" displayName="UR DRUGS OF ABUSE SCREEN" /> <statusCode code="completed" /> <component> <observation moodCode= "EVN" classCode="OBS"> <templateId root="216.840.1.463426.10...4.2 " /> <id nullFlavor="NA" /> <code codeSystem="local" code= "AMPHU" displayName="UR AMPHETAMINES SCREEN" /> <statusCode code= "completed" /> <effectiveTime value="948125059837" /> <value unit="" xsi:type="PQ" value="NEG (<1000 ng/mL)" /> <referenceRange > <observationRange> <text>NEGATIVE</text> </ observationRange> </referenceRange> </observation> </ component> <component> <observation moodCode="EVN" classCode="OBS"> <templateId root="[id number]" /> <id nullFlavor="NA" /> <code codeSystem="local" code="BARBU" displayName= "UR BARBITURATE SCREEN" /> <statusCode code="completed" /> < effectiveTime value="[id number]" /> <value unit="" xsi:type="PQ" value="NEG (< 200 ng/mL)" /> <referenceRange> < observationRange> <text>NEGATIVE</text> </ observationRange> </referenceRange> </observation> </ component> <component> <observation moodCode="EVN" classCode="OBS"> <templateId root="216.840.1.576755.10..22.4.2" /> <id nullFlavor="NA" /> <code codeSystem="local" code="DAUCOMMENT" displayName="DRUGS OF ABUSE SCREEN COMMENT" /> <statusCode code= "completed" /> <effectiveTime value="[id number]" /> <value unit="" xsi:type="PQ" value="" /> <referenceRange> < observationRange> <text /> </observationRange> </referenceRange> </observation> </component> <component> <observation moodCode="EVN" classCode="OBS"> <templateId root= "16.840.1.386984.10...4.2" /> <id nullFlavor="NA" /> < code codeSystem="local" code="OPIU" displayName="UR OPIATES SCREEN" /> <statusCode code="completed" /> <effectiveTime value="[id number]" /> <value unit="" xsi:type="PQ" value="POS (> 300 ng/mL)" /> <interpretationCode codeSystem="local" code="*" /> <referenceRange> <observationRange> <text>NEGATIVE</text> </ observationRange> </referenceRange> </observation> </ component> <component> <observation moodCode="EVN" classCode="OBS"> <templateId root="216.840.1.536470.10..22.4.2" /> <id nullFlavor="NA" /> <code codeSystem="local" code="PCPU" displayName=" UR PHENCYCLIDINE (PCP) SCREEN" /> <statusCode code="completed" /> <effectiveTime value="104425871121" /> <value unit="" xsi:type="PQ " value="NEG (< 25 ng/mL)" /> <referenceRange> < observationRange> <text>NEGATIVE</text> </ observationRange> </referenceRange> </observation> </ component> <component> <observation moodCode="EVN" classCode="OBS"> <templateId root="2.16.840.1.668433.10..22.4.2" /> <id nullFlavor="NA" /> <code codeSystem="local" code="THCU" displayName=" UR CANNABINOIDS (THC) SCREEN" /> <statusCode code="completed" /> <effectiveTime value="[id number]" /> <value unit="" xsi:type="PQ " value="POS (> 50 ng/mL)" /> <interpretationCode codeSystem= "local" code="*" /> <referenceRange> <observationRange> <text>NEGATIVE</text> </observationRange> </ referenceRange> </observation> </component> <component> <observation moodCode="EVN" classCode="OBS"> <templateId root= "2.16.840.1.108605.10..22.4.2" /> <id nullFlavor="NA" /> < code codeSystem="local" code="COCAU" displayName="UR COCAINE METABOLITE SCREEN" /> <statusCode code="completed" /> <effectiveTime value= "[id number]" /> <value unit="" xsi:type="PQ" value="NEG (< 300 ng /mL)" /> <referenceRange> <observationRange> < text>NEGATIVE</text> </observationRange> </referenceRange> </observation> </component> <component> <observation moodCode="EVN" classCode="OBS"> <templateId root= "2.16.840.1.614324.10..22.4.2" /> <id nullFlavor="NA" /> < code codeSystem="local" code="METHU" displayName="UR METHADONE SCREEN" /> <statusCode code="completed" /> <effectiveTime value="[id number] " /> <value unit="" xsi:type="PQ" value="NEG (< 300 ng/mL)" /> <referenceRange> <observationRange> <text>NEGATIVE </text> </observationRange> </referenceRange> </ observation> </component> <component> <observation moodCode= "EVN" classCode="OBS"> <templateId root="2.16.840.1.262724.07.02.22.4.2 " /> <id nullFlavor="NA" /> <code codeSystem="local" code= "BENZU" displayName="UR BENZODIAZEPINE SCREEN" /> <statusCode code= "completed" /> <effectiveTime value="352112753337" /> <value unit="" xsi:type="PQ" value="NEG (< 200 ng/mL)" /> <referenceRange > <observationRange> <text>NEGATIVE</text> </ observationRange> </referenceRange> </observation> </ component> </organizer> </entry> <entry> <organizer moodCode="EVN" classCode="BATTERY"> <templateId root="2.16.840.1.334346.10..22.4.1" /> <id nullFlavor="NA" /> <code codeSystem="local" code="CBCD" displayName="CBC W/DIFF" /> <statusCode code="completed" /> <component > <observation moodCode="EVN" classCode="OBS"> <templateId root= "10.29.840.1.198142.10.22.4.2" /> <id nullFlavor="NA" /> < code codeSystem="local" code="EO#" displayName="EOSINOPHIL #" /> < statusCode code="completed" /> <effectiveTime value="" /> <value unit="k/cumm" xsi:type="PQ" value="0.7" /> < interpretationCode codeSystem="local" code="*" /> <referenceRange> <observationRange> <text>0.1-0.5</text> </ observationRange> </referenceRange> </observation> </ component> <component> <observation moodCode="EVN" classCode="OBS"> <templateId root="10.29.840.1.596693.10.4.2" /> <id nullFlavor="NA" /> <code codeSystem="local" code="EO%" displayName= "EOSINOPHIL %" /> <statusCode code="completed" /> < effectiveTime value="" /> <value unit="%" xsi:type="PQ " value="10" /> <interpretationCode codeSystem="local" code="*" /> <referenceRange> <observationRange> <text>2-4</ text> </observationRange> </referenceRange> </ observation> </component> <component> <observation moodCode= "EVN" classCode="OBS"> <templateId root="10.29.840.1.484624.10.22.4.2 " /> <id nullFlavor="NA" /> <code codeSystem="local" code="GR# " displayName="GRANULOCYTE #" /> <statusCode code="completed" /> <effectiveTime value="" /> <value unit="k/cumm" xsi: type="PQ" value="4.4" /> <referenceRange> <observationRange > <text>2.0-9.0</text> </observationRange> </ referenceRange> </observation> </component> <component> <observation moodCode="EVN" classCode="OBS"> <templateId root= "216.840.1.052875.10...4.2" /> <id nullFlavor="NA" /> < code codeSystem="local" code="GR%" displayName="GRANULOCYTE %" /> <statusCode code="completed" /> <effectiveTime value=" " /> <value unit="%" xsi:type="PQ" value="62" /> < referenceRange> <observationRange> <text>50-75</text> </observationRange> </referenceRange> </observation> </component> <component> <observation moodCode="EVN" classCode= "OBS"> <templateId root="10.29.840.1.440848.10..4.2" /> < id nullFlavor="NA" /> <code codeSystem="local" code="LY#" displayName= "LYMPHOCYTE #" /> <statusCode code="completed" /> < effectiveTime value="" /> <value unit="k/cumm" xsi:type="PQ " value="1.1" /> <referenceRange> <observationRange> <text>1.0-4.0</text> </observationRange> </ referenceRange> </observation> </component> <component> <observation moodCode="EVN" classCode="OBS"> <templateId root= "16.840.1.371695.10..22.4.2" /> <id nullFlavor="NA" /> < code codeSystem="local" code="LY%" displayName="LYMPHOCYTE %" /> <statusCode code="completed" /> <effectiveTime value="" /> <value unit="%" xsi:type="PQ" value="16" /> < interpretationCode codeSystem="local" code="*" /> <referenceRange> <observationRange> <text>20-30</text> </ observationRange> </referenceRange> </observation> </ component> <component> <observation moodCode="EVN" classCode="OBS"> <templateId root="2.16.840.1.935095.10...4.2" /> <id nullFlavor="NA" /> <code codeSystem="local" code="MCH" displayName= "MEAN CELL HGB" /> <statusCode code="completed" /> < effectiveTime value="" /> <value unit="pg" xsi:type="PQ" value="29.9" /> <referenceRange> <observationRange> <text>27.0-33.0</text> </observationRange> </ referenceRange> </observation> </component> <component> <observation moodCode="EVN" classCode="OBS"> <templateId root= "2.16.840.1.411420.10...4.2" /> <id nullFlavor="NA" /> < code codeSystem="local" code="MCHC" displayName="MEAN CELL HGB CONCENTRATION" / > <statusCode code="completed" /> <effectiveTime value= "" /> <value unit="g/dL" xsi:type="PQ" value="33.9" /> <referenceRange> <observationRange> <text>32.0- 37.0</text> </observationRange> </referenceRange> </ observation> </component> <component> <observation moodCode= "EVN" classCode="OBS"> <templateId root="10.29.840.1.772463.10.22.4.2 " /> <id nullFlavor="NA" /> <code codeSystem="local" code="MCV " displayName="MEAN CELL VOLUME" /> <statusCode code="completed" /> <effectiveTime value="" /> <value unit="fl" xsi:type ="PQ" value="88.1" /> <referenceRange> <observationRange> <text>80.0-100.0</text> </observationRange> </ referenceRange> </observation> </component> <component> <observation moodCode="EVN" classCode="OBS"> <templateId root= "10.29.840.1.708084.07.02.22.4.2" /> <id nullFlavor="NA" /> < code codeSystem="local" code="MO#" displayName="MONOCYTE #" /> < statusCode code="completed" /> <effectiveTime value="" /> <value unit="k/cumm" xsi:type="PQ" value="0.9" /> < referenceRange> <observationRange> <text>0.1-1.0</text> </observationRange> </referenceRange> </observation > </component> <component> <observation moodCode="EVN" classCode="OBS"> <templateId root="10.29.840.1.886741.10.2022.4.2" /> <id nullFlavor="NA" /> <code codeSystem="local" code="MO% " displayName="MONOCYTE %" /> <statusCode code="completed" /> <effectiveTime value="" /> <value unit="%" xsi: type="PQ" value="12" /> <interpretationCode codeSystem="local" code="* " /> <referenceRange> <observationRange> <text> 4-6</text> </observationRange> </referenceRange> </ observation> </component> <component> <observation moodCode= "EVN" classCode="OBS"> <templateId root="10.29.840.1.972440.10.20.22.4.2 " /> <id nullFlavor="NA" /> <code codeSystem="local" code= "MPVT" displayName="MEAN PLATELET VOLUME" /> <statusCode code= "completed" /> <effectiveTime value="" /> <value unit="fl" xsi:type="PQ" value="10.0" /> <referenceRange> < observationRange> <text>8.5-10.9</text> </ observationRange> </referenceRange> </observation> </ component> <component> <observation moodCode="EVN" classCode="OBS"> <templateId root="10.29.840.1.988035.10...4.2" /> <id nullFlavor="NA" /> <code codeSystem="local" code="RBC" displayName=" RED BLOOD CELL" /> <statusCode code="completed" /> < effectiveTime value="" /> <value unit="m/cumm" xsi:type="PQ " value="3.95" /> <interpretationCode codeSystem="local" code="*" /> <referenceRange> <observationRange> <text>4.00- 6.00</text> </observationRange> </referenceRange> </ observation> </component> <component> <observation moodCode= "EVN" classCode="OBS"> <templateId root="10.29.840.1.294813.10.20.22.4.2 " /> <id nullFlavor="NA" /> <code codeSystem="local" code="RDW " displayName="RED CELL DISTRIBUTION WIDTH" /> <statusCode code= "completed" /> <effectiveTime value="" /> <value unit="%" xsi:type="PQ" value="13.4" /> <referenceRange> <observationRange> <text>11.0-15.6</text> </ observationRange> </referenceRange> </observation> </ component> <component> <observation moodCode="EVN" classCode="OBS"> <templateId root="2.16.840.1.117545.10..22.4.2" /> <id nullFlavor="NA" /> <code codeSystem="local" code="WBC" displayName= "WHITE BLOOD CELL" /> <statusCode code="completed" /> < effectiveTime value="" /> <value unit="k/cumm" xsi:type="PQ " value="7.2" /> <referenceRange> <observationRange> <text>5.0-10.0</text> </observationRange> </ referenceRange> </observation> </component> <component> <observation moodCode="EVN" classCode="OBS"> <templateId root= "2.16.840.1.273261.10..22.4.2" /> <id nullFlavor="NA" /> < code codeSystem="local" code="HGBT" displayName="HEMOGLOBIN" /> < statusCode code="completed" /> <effectiveTime value="" /> <value unit="gm/dL" xsi:type="PQ" value="11.8" /> < interpretationCode codeSystem="local" code="*" /> <referenceRange> <observationRange> <text>14.0-18.0</text> </ observationRange> </referenceRange> </observation> </ component> <component> <observation moodCode="EVN" classCode="OBS"> <templateId root="216.840.1.744671.07.02.22.4.2" /> <id nullFlavor="NA" /> <code codeSystem="local" code="HCTT" displayName= "HEMATOCRIT" /> <statusCode code="completed" /> < effectiveTime value="" /> <value unit="%" xsi:type="PQ " value="34.8" /> <interpretationCode codeSystem="local" code="*" /> <referenceRange> <observationRange> <text>40.0- 54.0</text> </observationRange> </referenceRange> </ observation> </component> <component> <observation moodCode= "EVN" classCode="OBS"> <templateId root="10.29.840.1.180355.07.02.224.2 " /> <id nullFlavor="NA" /> <code codeSystem="local" code= "NRBC%" displayName="NRBC %" /> <statusCode code="completed" / > <effectiveTime value="" /> <value unit="/100WBC " xsi:type="PQ" value="0.0" /> <referenceRange> < observationRange> <text>0.0-0.0</text> </ observationRange> </referenceRange> </observation> </ component> <component> <observation moodCode="EVN" classCode="OBS"> <templateId root="216.840.1.775279.10.4.2" /> <id nullFlavor="NA" /> <code codeSystem="local" code="NRBC#" displayName= "NRBC #" /> <statusCode code="completed" /> <effectiveTime value="" /> <value unit="k/cumm" xsi:type="PQ" value="0.00 " /> <interpretationCode codeSystem="local" code="*" /> < referenceRange> <observationRange> <text>0.03-0.11</text > </observationRange> </referenceRange> </observation > </component> <component> <observation moodCode="EVN" classCode="OBS"> <templateId root="216.840.1.184023.10...4.2" /> <id nullFlavor="NA" /> <code codeSystem="local" code="PLTT" displayName="PLATELET COUNT" /> <statusCode code="completed" /> <effectiveTime value="" /> <value unit="k/cumm" xsi:type ="PQ" value="191" /> <referenceRange> <observationRange> <text>150-400</text> </observationRange> </ referenceRange> </observation> </component> <component> <observation moodCode="EVN" classCode="OBS"> <templateId root= "216.840.1.384797...22.4.2" /> <id nullFlavor="NA" /> < code codeSystem="local" code="IG%" displayName="IMMATURE GRANULOCYTE %" /> <statusCode code="completed" /> <effectiveTime value= "" /> <value unit="%" xsi:type="PQ" value="0.7" /> <interpretationCode codeSystem="local" code="*" /> < referenceRange> <observationRange> <text>0.0-0.6</text> </observationRange> </referenceRange> </observation > </component> <component> <observation moodCode="EVN" classCode="OBS"> <templateId root="10.29.840.1.379354.10..4.2" /> <id nullFlavor="NA" /> <code codeSystem="local" code="IG#" displayName="IMMATURE GRANULOCYTE #" /> <statusCode code="completed" / > <effectiveTime value="189626806902" /> <value unit="k/cumm" xsi:type="PQ" value="0.05" /> <referenceRange> < observationRange> <text>0.00-0.09</text> </ observationRange> </referenceRange> </observation> </ component> </organizer> </entry> <entry> <organizer moodCode="EVN" classCode="BATTERY"> <templateId root="840.1.958265...4.1" /> <id nullFlavor="NA" /> <code codeSystem="local" code="RENAL" displayName="RENAL FUNCTION PANEL" /> <statusCode code="completed" /> <component> <observation moodCode="EVN" classCode="OBS"> < templateId root="10.29.840.1.890854.10...4.2" /> <id nullFlavor="NA " /> <code codeSystem="local" code="K" displayName="POTASSIUM" /> <statusCode code="completed" /> <effectiveTime value="071173744122 " /> <value unit="mmol/L" xsi:type="PQ" value="3.6" /> < referenceRange> <observationRange> <text>3.5-5.3</text> </observationRange> </referenceRange> </observation > </component> <component> <observation moodCode="EVN" classCode="OBS"> <templateId root="10.29.840.1.265938.07.02.22.4.2" /> <id nullFlavor="NA" /> <code codeSystem="local" code="eGFR" displayName="EST GFR (MDRD)" /> <statusCode code="completed" /> <effectiveTime value="" /> <value unit="mL/min" xsi:type ="PQ" value="> 60" /> <referenceRange> <observationRange > <text>> 59</text> </observationRange> </ referenceRange> </observation> </component> <component> <observation moodCode="EVN" classCode="OBS"> <templateId root= "2.16.840.1.264982.10.4.2" /> <id nullFlavor="NA" /> < code codeSystem="local" code="GAP" displayName="ANION GAP" /> < statusCode code="completed" /> <effectiveTime value="" /> <value unit="mmol/L" xsi:type="PQ" value="7" /> < referenceRange> <observationRange> <text>5-15</text> </observationRange> </referenceRange> </observation> </component> <component> <observation moodCode="EVN" classCode= "OBS"> <templateId root="2.16.840.1.156661.10.4.2" /> < id nullFlavor="NA" /> <code codeSystem="local" code="eCrCl" displayName ="EST CrCl (CG)" /> <statusCode code="completed" /> < effectiveTime value="" /> <value unit="mL/min" xsi:type="PQ " value="> 60" /> <referenceRange> <observationRange> <text>> 59</text> </observationRange> </ referenceRange> </observation> </component> <component> <observation moodCode="EVN" classCode="OBS"> <templateId root= "10.29.840.1.022158.10.20.22.4.2" /> <id nullFlavor="NA" /> < code codeSystem="local" code="GLU" displayName="GLUCOSE" /> < statusCode code="completed" /> <effectiveTime value="" /> <value unit="mg/dL" xsi:type="PQ" value="82" /> < referenceRange> <observationRange> <text>70-99</text> </observationRange> </referenceRange> </observation> </component> <component> <observation moodCode="EVN" classCode= "OBS"> <templateId root="10.29.840.1.433159.10.22.4.2" /> < id nullFlavor="NA" /> <code codeSystem="local" code="CA" displayName= "CALCIUM" /> <statusCode code="completed" /> <effectiveTime value="" /> <value unit="mg/dL" xsi:type="PQ" value="8.2" / > <interpretationCode codeSystem="local" code="*" /> < referenceRange> <observationRange> <text>8.5-10.1</text > </observationRange> </referenceRange> </observation > </component> <component> <observation moodCode="EVN" classCode="OBS"> <templateId root="10.29.840.1.289067.10.20.22.4.2" /> <id nullFlavor="NA" /> <code codeSystem="local" code="BUN" displayName="BLOOD UREA NITROGEN" /> <statusCode code="completed" /> <effectiveTime value="" /> <value unit="mg/dL" xsi: type="PQ" value="13" /> <referenceRange> <observationRange> <text>7-20</text> </observationRange> </ referenceRange> </observation> </component> <component> <observation moodCode="EVN" classCode="OBS"> <templateId root= "16.840.1.999788.10..22.4.2" /> <id nullFlavor="NA" /> < code codeSystem="local" code="CREAT" displayName="CREATININE" /> < statusCode code="completed" /> <effectiveTime value="" /> <value unit="mg/dL" xsi:type="PQ" value="0.9" /> < referenceRange> <observationRange> <text>0.7-1.3</text> </observationRange> </referenceRange> </observation > </component> <component> <observation moodCode="EVN" classCode="OBS"> <templateId root="10.29.840.1.624480.22.4.2" /> <id nullFlavor="NA" /> <code codeSystem="local" code="NA" displayName="SODIUM" /> <statusCode code="completed" /> < effectiveTime value="" /> <value unit="mmol/L" xsi:type="PQ " value="136" /> <referenceRange> <observationRange> <text>135-148</text> </observationRange> </ referenceRange> </observation> </component> <component> <observation moodCode="EVN" classCode="OBS"> <templateId root= "10.29.840.1.512525...22.4.2" /> <id nullFlavor="NA" /> < code codeSystem="local" code="CL" displayName="CHLORIDE" /> < statusCode code="completed" /> <effectiveTime value="" /> <value unit="mmol/L" xsi:type="PQ" value="105" /> < referenceRange> <observationRange> <text>98-110</text> </observationRange> </referenceRange> </observation> </component> <component> <observation moodCode="EVN" classCode ="OBS"> <templateId root="16.840.1.006925.10...4.2" /> < id nullFlavor="NA" /> <code codeSystem="local" code="CO2" displayName= "CARBON DIOXIDE" /> <statusCode code="completed" /> < effectiveTime value="" /> <value unit="mmol/L" xsi:type="PQ " value="24" /> <referenceRange> <observationRange> <text>21-32</text> </observationRange> </ referenceRange> </observation> </component> <component> <observation moodCode="EVN" classCode="OBS"> <templateId root= "10.29.840.1.891595.10...4.2" /> <id nullFlavor="NA" /> < code codeSystem="local" code="ALB" displayName="ALBUMIN" /> < statusCode code="completed" /> <effectiveTime value="" /> <value unit="gm/dL" xsi:type="PQ" value="2.6" /> < interpretationCode codeSystem="local" code="*" /> <referenceRange> <observationRange> <text>3.4-5.0</text> </ observationRange> </referenceRange> </observation> </ component> <component> <observation moodCode="EVN" classCode="OBS"> <templateId root="10.29.840.1.216592.10..22.4.2" /> <id nullFlavor="NA" /> <code codeSystem="local" code="PHOS" displayName= "PHOSPHORUS" /> <statusCode code="completed" /> < effectiveTime value="786654290684" /> <value unit="mg/dL" xsi:type="PQ " value="2.9" /> <referenceRange> <observationRange> <text>2.5-4.9</text> </observationRange> </ referenceRange> </observation> </component> </organizer> </entry > <entry> <organizer moodCode="EVN" classCode="BATTERY"> <templateId root="216.840.1.766302.10...4.1" /> <id nullFlavor="NA" /> <code codeSystem="local" code="CBCWD" displayName="CBC With Platelet and Differential " /> <statusCode code="completed" /> <component> <observation moodCode="EVN" classCode="OBS"> <templateId root= "16.840.1.005145.10...4.2" /> <id nullFlavor="NA" /> < code codeSystem="local" code="ABASR" displayName="Absolute Basophils" /> <statusCode code="completed" /> <effectiveTime value="741294550930" /> <value unit="10*3/uL" xsi:type="PQ" value="0.03" /> < referenceRange> <observationRange> <text>0.00-0.20</text > </observationRange> </referenceRange> </observation > </component> <component> <observation moodCode="EVN" classCode="OBS"> <templateId root="16.840.1.989463.10.20.22.4.2" /> <id nullFlavor="NA" /> <code codeSystem="local" code="AEOSR" displayName="Absolute Eosinophils" /> <statusCode code="completed" /> <effectiveTime value="766632452149" /> <value unit="10*3/uL" xsi:type="PQ" value="0.50" /> <referenceRange> < observationRange> <text>0.00-0.50</text> </ observationRange> </referenceRange> </observation> </ component> <component> <observation moodCode="EVN" classCode="OBS"> <templateId root="216.840.1.606514....4.2" /> <id nullFlavor="NA" /> <code codeSystem="local" code="ALYMR" displayName= "Absolute Lymphocytes" /> <statusCode code="completed" /> < effectiveTime value="677535150877" /> <value unit="10*3/uL" xsi:type= "PQ" value="1.70" /> <referenceRange> <observationRange> <text>0.80-3.30</text> </observationRange> </ referenceRange> </observation> </component> <component> <observation moodCode="EVN" classCode="OBS"> <templateId root= "216.840.1.539132....4.2" /> <id nullFlavor="NA" /> < code codeSystem="local" code="AMONR" displayName="Absolute Monocytes" /> <statusCode code="completed" /> <effectiveTime value="576651895874" /> <value unit="10*3/uL" xsi:type="PQ" value="1.10" /> < interpretationCode codeSystem="local" code="*" /> <referenceRange> <observationRange> <text>0.30-1.00</text> </ observationRange> </referenceRange> </observation> </ component> <component> <observation moodCode="EVN" classCode="OBS"> <templateId root="10.29.840.1.047147.10..22.4.2" /> <id nullFlavor="NA" /> <code codeSystem="local" code="ASEGR" displayName= "Absolute Neutrophils" /> <statusCode code="completed" /> < effectiveTime value="130228869120" /> <value unit="10*3/uL" xsi:type= "PQ" value="3.68" /> <referenceRange> <observationRange> <text>1.90-7.00</text> </observationRange> </ referenceRange> </observation> </component> <component> <observation moodCode="EVN" classCode="OBS"> <templateId root= "16.840.1.620690.10..4.2" /> <id nullFlavor="NA" /> < code codeSystem="local" code="BASOR" displayName="Basophils" /> < statusCode code="completed" /> <effectiveTime value="442233300497" /> <value unit="%" xsi:type="PQ" value="0" /> <referenceRange > <observationRange> <text>0-2</text> </ observationRange> </referenceRange> </observation> </ component> <component> <observation moodCode="EVN" classCode="OBS"> <templateId root="16.840.1.104386.10..4.2" /> <id nullFlavor="NA" /> <code codeSystem="local" code="EOSR" displayName= "Eosinophils" /> <statusCode code="completed" /> < effectiveTime value="923438841861" /> <value unit="%" xsi:type="PQ " value="7" /> <interpretationCode codeSystem="local" code="*" /> <referenceRange> <observationRange> <text>0-4</text > </observationRange> </referenceRange> </observation > </component> <component> <observation moodCode="EVN" classCode="OBS"> <templateId root="10.29.840.1.083135.10.2022.4.2" /> <id nullFlavor="NA" /> <code codeSystem="local" code="HCT" displayName="HCT" /> <statusCode code="completed" /> < effectiveTime value="316555131313" /> <value unit="%" xsi:type="PQ " value="39.3" /> <interpretationCode codeSystem="local" code="*" /> <referenceRange> <observationRange> <text>42.0- 52.0</text> </observationRange> </referenceRange> </ observation> </component> <component> <observation moodCode= "EVN" classCode="OBS"> <templateId root="10.29.840.1.581043.10..4.2 " /> <id nullFlavor="NA" /> <code codeSystem="local" code="HGB " displayName="HGB" /> <statusCode code="completed" /> < effectiveTime value="419076264687" /> <value unit="g/dL" xsi:type="PQ" value="12.9" /> <interpretationCode codeSystem="local" code="*" /> <referenceRange> <observationRange> <text>14.0- 18.0</text> </observationRange> </referenceRange> </ observation> </component> <component> <observation moodCode= "EVN" classCode="OBS"> <templateId root="10.29.840.1.126170.10.20.22.4.2 " /> <id nullFlavor="NA" /> <code codeSystem="local" code= "IMGA" displayName="Immature Granulocytes" /> <statusCode code= "completed" /> <effectiveTime value="821488646589" /> <value unit="%" xsi:type="PQ" value="0.4" /> <referenceRange> < observationRange> <text>0.0-1.0</text> </ observationRange> </referenceRange> </observation> </ component> <component> <observation moodCode="EVN" classCode="OBS"> <templateId root="10.29.840.1.160790.10.2022.4.2" /> <id nullFlavor="NA" /> <code codeSystem="local" code="LYMPR" displayName= "Lymphocytes" /> <statusCode code="completed" /> < effectiveTime value="203616614556" /> <value unit="%" xsi:type="PQ " value="24" /> <referenceRange> <observationRange> <text>20-46</text> </observationRange> </ referenceRange> </observation> </component> <component> <observation moodCode="EVN" classCode="OBS"> <templateId root= "10.29.840.1.408017.22.4.2" /> <id nullFlavor="NA" /> < code codeSystem="local" code="MCH" displayName="MCH" /> <statusCode code="completed" /> <effectiveTime value="468245554013" /> < value unit="pg" xsi:type="PQ" value="29.7" /> <referenceRange> <observationRange> <text>27.0-32.0</text> </ observationRange> </referenceRange> </observation> </ component> <component> <observation moodCode="EVN" classCode="OBS"> <templateId root="10.29.840.1.615725.10.20.22.4.2" /> <id nullFlavor="NA" /> <code codeSystem="local" code="MCHC" displayName= "MCHC" /> <statusCode code="completed" /> <effectiveTime value ="142382342435" /> <value unit="g/dL" xsi:type="PQ" value="32.8" /> <referenceRange> <observationRange> <text>32.0- 36.0</text> </observationRange> </referenceRange> </ observation> </component> <component> <observation moodCode= "EVN" classCode="OBS"> <templateId root="216.840.1.443567.07.02.22.4.2 " /> <id nullFlavor="NA" /> <code codeSystem="local" code="MCV " displayName="MCV" /> <statusCode code="completed" /> < effectiveTime value="930284820898" /> <value unit="fL" xsi:type="PQ" value="90.3" /> <referenceRange> <observationRange> <text>82.0-99.0</text> </observationRange> </ referenceRange> </observation> </component> <component> <observation moodCode="EVN" classCode="OBS"> <templateId root= "2.16.840.1.145833.10.4.2" /> <id nullFlavor="NA" /> < code codeSystem="local" code="MONOR" displayName="Monocytes" /> < statusCode code="completed" /> <effectiveTime value="551921543991" /> <value unit="%" xsi:type="PQ" value="16" /> < interpretationCode codeSystem="local" code="*" /> <referenceRange> <observationRange> <text>4-11</text> </ observationRange> </referenceRange> </observation> </ component> <component> <observation moodCode="EVN" classCode="OBS"> <templateId root="16.840.1.136971.10..4.2" /> <id nullFlavor="NA" /> <code codeSystem="local" code="MPV" displayName="MPV " /> <statusCode code="completed" /> <effectiveTime value= "" /> <value unit="fL" xsi:type="PQ" value="10.5" /> <referenceRange> <observationRange> <text>9.4-12.3</ text> </observationRange> </referenceRange> </ observation> </component> <component> <observation moodCode= "EVN" classCode="OBS"> <templateId root="10.29.840.1.781218.07.02.22.4.2 " /> <id nullFlavor="NA" /> <code codeSystem="local" code= "SEGR" displayName="Neutrophils" /> <statusCode code="completed" /> <effectiveTime value="821226710510" /> <value unit="%" xsi: type="PQ" value="52" /> <referenceRange> <observationRange> <text>51-75</text> </observationRange> </ referenceRange> </observation> </component> <component> <observation moodCode="EVN" classCode="OBS"> <templateId root= "10.29.840.1.286485.10..4.2" /> <id nullFlavor="NA" /> < code codeSystem="local" code="NRBCA" displayName="Nucleated RBC Automated" /> <statusCode code="completed" /> <effectiveTime value= "246604104790" /> <value unit="/100WBC" xsi:type="PQ" value="0.0" /> <referenceRange> <observationRange> <text /> </observationRange> </referenceRange> </observation> </component> <component> <observation moodCode="EVN" classCode= "OBS"> <templateId root="16.840.1.572218.102022.4.2" /> < id nullFlavor="NA" /> <code codeSystem="local" code="PLT" displayName= "Platelet Count" /> <statusCode code="completed" /> < effectiveTime value="074151944474" /> <value unit="K/uL" xsi:type="PQ" value="207" /> <referenceRange> <observationRange> <text>150-400</text> </observationRange> </ referenceRange> </observation> </component> <component> <observation moodCode="EVN" classCode="OBS"> <templateId root= "10.29.840.1.929707.07.02.22.4.2" /> <id nullFlavor="NA" /> < code codeSystem="local" code="RBC" displayName="RBC" /> <statusCode code="completed" /> <effectiveTime value="527746553203" /> < value unit="10*6/uL" xsi:type="PQ" value="4.35" /> <interpretationCode codeSystem="local" code="*" /> <referenceRange> < observationRange> <text>4.60-6.20</text> </ observationRange> </referenceRange> </observation> </ component> <component> <observation moodCode="EVN" classCode="OBS"> <templateId root="10.29.840.1.636323.22.4.2" /> <id nullFlavor="NA" /> <code codeSystem="local" code="RDW" displayName="RDW " /> <statusCode code="completed" /> <effectiveTime value= "429356205239" /> <value unit="%" xsi:type="PQ" value="14.9" /> <interpretationCode codeSystem="local" code="*" /> < referenceRange> <observationRange> <text>11.5-14.5</text > </observationRange> </referenceRange> </observation > </component> <component> <observation moodCode="EVN" classCode="OBS"> <templateId root="10.29.840.1.768930.10.20.22.4.2" /> <id nullFlavor="NA" /> <code codeSystem="local" code="WBCIR" displayName="WBC" /> <statusCode code="completed" /> < effectiveTime value="206893725074" /> <value unit="K/uL" xsi:type="PQ" value="7.0" /> <referenceRange> <observationRange> <text>4.8-10.8</text> </observationRange> </ referenceRange> </observation> </component> </organizer> </entry > <entry> <organizer moodCode="EVN" classCode="BATTERY"> <templateId root="10.29.840.1.528907.10..22.4.1" /> <id nullFlavor="NA" /> <code codeSystem="local" code="TROP" displayName="Troponin" /> <statusCode code= "completed" /> <component> <observation moodCode="EVN" classCode= "OBS"> <templateId root="840.1.185993.10.20.22.4.2" /> < id nullFlavor="NA" /> <code codeSystem="local" code="TROP" displayName= "Troponin" /> <statusCode code="completed" /> <effectiveTime value="844142693983" /> <value unit="ng/mL" xsi:type="PQ" value="< 0.05" /> <referenceRange> <observationRange> < text><0.06</text> </observationRange> </referenceRange> </observation> </component> </organizer> </entry> <entry> < organizer moodCode="EVN" classCode="BATTERY"> <templateId root= "10.29.840.1.708799.10.22.4.1" /> <id nullFlavor="NA" /> <code codeSystem="local" code="CMP" displayName="Comprehensive Metabolic Panel (CMP)" /> <statusCode code="completed" /> <component> <observation moodCode="EVN" classCode="OBS"> <templateId root= "16.840.1.541517.10..4.2" /> <id nullFlavor="NA" /> < code codeSystem="local" code="ALB" displayName="Albumin" /> < statusCode code="completed" /> <effectiveTime value="878831990604" /> <value unit="g/dL" xsi:type="PQ" value="3.6" /> < referenceRange> <observationRange> <text>3.5-4.8</text> </observationRange> </referenceRange> </observation > </component> <component> <observation moodCode="EVN" classCode="OBS"> <templateId root="10.29.840.1.361444.10..22.4.2" /> <id nullFlavor="NA" /> <code codeSystem="local" code="ALP" displayName="Alkaline Phosphatase" /> <statusCode code="completed" /> <effectiveTime value="661069077726" /> <value unit="U/L" xsi: type="PQ" value="79" /> <referenceRange> <observationRange> <text>26-104</text> </observationRange> </ referenceRange> </observation> </component> <component> <observation moodCode="EVN" classCode="OBS"> <templateId root= "16.840.1.543117.10..22.4.2" /> <id nullFlavor="NA" /> < code codeSystem="local" code="ALT" displayName="ALT (SGPT)" /> < statusCode code="completed" /> <effectiveTime value="075308865801" /> <value unit="U/L" xsi:type="PQ" value="41" /> <referenceRange > <observationRange> <text>17-63</text> </ observationRange> </referenceRange> </observation> </ component> <component> <observation moodCode="EVN" classCode="OBS"> <templateId root="10.29.840.1.798711...4.2" /> <id nullFlavor="NA" /> <code codeSystem="local" code="AGAP" displayName= "Anion Gap" /> <statusCode code="completed" /> <effectiveTime value="111091571389" /> <value unit="mEq/L" xsi:type="PQ" value="11" / > <referenceRange> <observationRange> <text>3- 20</text> </observationRange> </referenceRange> </ observation> </component> <component> <observation moodCode= "EVN" classCode="OBS"> <templateId root="10.29.840.1.237748....4.2 " /> <id nullFlavor="NA" /> <code codeSystem="local" code="AST " displayName="AST (SGOT)" /> <statusCode code="completed" /> <effectiveTime value="114544182332" /> <value unit="U/L" xsi:type="PQ" value="42" /> <interpretationCode codeSystem="local" code="*" /> <referenceRange> <observationRange> <text>15-41</ text> </observationRange> </referenceRange> </ observation> </component> <component> <observation moodCode= "EVN" classCode="OBS"> <templateId root="16.840.1.515019.10.2022.4.2 " /> <id nullFlavor="NA" /> <code codeSystem="local" code= "BILIT" displayName="Bilirubin Total" /> <statusCode code="completed" / > <effectiveTime value="572547008386" /> <value unit="mg/dL" xsi:type="PQ" value="0.7" /> <referenceRange> < observationRange> <text>0.2-1.2</text> </ observationRange> </referenceRange> </observation> </ component> <component> <observation moodCode="EVN" classCode="OBS"> <templateId root="10.29.840.1.547520.22.4.2" /> <id nullFlavor="NA" /> <code codeSystem="local" code="BUN" displayName="BUN " /> <statusCode code="completed" /> <effectiveTime value= "919731311168" /> <value unit="mg/dL" xsi:type="PQ" value="9" /> <referenceRange> <observationRange> <text>4-20</text > </observationRange> </referenceRange> </observation > </component> <component> <observation moodCode="EVN" classCode="OBS"> <templateId root="10.29.840.1.137964.10.2022.4.2" /> <id nullFlavor="NA" /> <code codeSystem="local" code="CA" displayName="Calcium" /> <statusCode code="completed" /> < effectiveTime value="246139112775" /> <value unit="mg/dL" xsi:type="PQ " value="9.1" /> <referenceRange> <observationRange> <text>8.6-10.0</text> </observationRange> </ referenceRange> </observation> </component> <component> <observation moodCode="EVN" classCode="OBS"> <templateId root= "10.29.840.1.063520.07.02.22.4.2" /> <id nullFlavor="NA" /> < code codeSystem="local" code="CL" displayName="Chloride" /> < statusCode code="completed" /> <effectiveTime value="348754206371" /> <value unit="mEq/L" xsi:type="PQ" value="106" /> < referenceRange> <observationRange> <text>99-109</text> </observationRange> </referenceRange> </observation> </component> <component> <observation moodCode="EVN" classCode ="OBS"> <templateId root="16.840.1.386199.07.02.22.4.2" /> < id nullFlavor="NA" /> <code codeSystem="local" code="CO2" displayName= "CO2" /> <statusCode code="completed" /> <effectiveTime value= "768122184650" /> <value unit="mEq/L" xsi:type="PQ" value="22" /> <referenceRange> <observationRange> <text>22-32</ text> </observationRange> </referenceRange> </ observation> </component> <component> <observation moodCode= "EVN" classCode="OBS"> <templateId root="10.29.840.1.046274.07.02.22.4.2 " /> <id nullFlavor="NA" /> <code codeSystem="local" code= "CREAT" displayName="Creatinine" /> <statusCode code="completed" /> <effectiveTime value="464759762527" /> <value unit="mg/dL" xsi: type="PQ" value="0.93" /> <referenceRange> <observationRange > <text>0.64-1.27</text> </observationRange> </ referenceRange> </observation> </component> <component> <observation moodCode="EVN" classCode="OBS"> <templateId root= "2.16.840.1.114137...4.2" /> <id nullFlavor="NA" /> < code codeSystem="local" code="GLOB" displayName="Globulin" /> < statusCode code="completed" /> <effectiveTime value="480633827321" /> <value unit="g/dL" xsi:type="PQ" value="3.3" /> < referenceRange> <observationRange> <text>1.9-4.3</text> </observationRange> </referenceRange> </observation > </component> <component> <observation moodCode="EVN" classCode="OBS"> <templateId root="2.16.840.1.481063.10...4.2" /> <id nullFlavor="NA" /> <code codeSystem="local" code="GLU" displayName="Glucose" /> <statusCode code="completed" /> < effectiveTime value="182654694744" /> <value unit="mg/dL" xsi:type="PQ " value="86" /> <referenceRange> <observationRange> <text>70-100</text> </observationRange> </ referenceRange> </observation> </component> <component> <observation moodCode="EVN" classCode="OBS"> <templateId root= "10.29.840.1.875065.10..22.4.2" /> <id nullFlavor="NA" /> < code codeSystem="local" code="K" displayName="Potassium" /> < statusCode code="completed" /> <effectiveTime value="550612460226" /> <value unit="mEq/L" xsi:type="PQ" value="3.5" /> < interpretationCode codeSystem="local" code="*" /> <referenceRange> <observationRange> <text>3.6-5.1</text> </ observationRange> </referenceRange> </observation> </ component> <component> <observation moodCode="EVN" classCode="OBS"> <templateId root="10.29.840.1.368506.07.02.22.4.2" /> <id nullFlavor="NA" /> <code codeSystem="local" code="TP" displayName= "Protein" /> <statusCode code="completed" /> <effectiveTime value="973355323541" /> <value unit="g/dL" xsi:type="PQ" value="6.9" / > <referenceRange> <observationRange> <text>6.1 -7.9</text> </observationRange> </referenceRange> </ observation> </component> <component> <observation moodCode= "EVN" classCode="OBS"> <templateId root="840.1.370085.10..22.4.2 " /> <id nullFlavor="NA" /> <code codeSystem="local" code="NA " displayName="Sodium" /> <statusCode code="completed" /> < effectiveTime value="690722631095" /> <value unit="mEq/L" xsi:type="PQ " value="139" /> <referenceRange> <observationRange> <text>136-144</text> </observationRange> </ referenceRange> </observation> </component> </organizer> </entry > <entry> <organizer moodCode="EVN" classCode="BATTERY"> <templateId root="10.29.840.1.641472.07.02.22.4.1" /> <id nullFlavor="NA" /> <code codeSystem="local" code="GFR" displayName="eGFR" /> <statusCode code= "completed" /> <component> <observation moodCode="EVN" classCode= "OBS"> <templateId root="840.1.972836.07.02.22.4.2" /> < id nullFlavor="NA" /> <code codeSystem="local" code="GFR" displayName= "eGFR" /> <statusCode code="completed" /> <effectiveTime value ="074963072808" /> <value unit="mL/min" xsi:type="PQ" value=">60" / > <referenceRange> <observationRange> <text>&gt ;60</text> </observationRange> </referenceRange> </ observation> </component> </organizer> </entry> <entry> <organizer moodCode="EVN" classCode="BATTERY"> <templateId root= "840.1.541688.07.02.22.4.1" /> <id nullFlavor="NA" /> <code codeSystem="local" code="CBCWD" displayName="CBC With Platelet and Differential " /> <statusCode code="completed" /> <component> <observation moodCode="EVN" classCode="OBS"> <templateId root= "840.1.730647.07.02.22.4.2" /> <id nullFlavor="NA" /> < code codeSystem="local" code="ABASR" displayName="Absolute Basophils" /> <statusCode code="completed" /> <effectiveTime value="" /> <value unit="10*3/uL" xsi:type="PQ" value="0.03" /> < referenceRange> <observationRange> <text>0.00-0.20</text > </observationRange> </referenceRange> </observation > </component> <component> <observation moodCode="EVN" classCode="OBS"> <templateId root="2.16.840.1.118764.10...4.2" /> <id nullFlavor="NA" /> <code codeSystem="local" code="AEOSR" displayName="Absolute Eosinophils" /> <statusCode code="completed" /> <effectiveTime value="" /> <value unit="10/uL" xsi:type="PQ" value="0.78" /> <interpretationCode codeSystem="local" code="*" /> <referenceRange> <observationRange> <text>0.00-0.50</text> </observationRange> </ referenceRange> </observation> </component> <component> <observation moodCode="EVN" classCode="OBS"> <templateId root= "216.840.1.449925...22.4.2" /> <id nullFlavor="NA" /> < code codeSystem="local" code="ALYMR" displayName="Absolute Lymphocytes" /> <statusCode code="completed" /> <effectiveTime value=" " /> <value unit="10*3/uL" xsi:type="PQ" value="1.84" /> < referenceRange> <observationRange> <text>0.80-3.30</text > </observationRange> </referenceRange> </observation > </component> <component> <observation moodCode="EVN" classCode="OBS"> <templateId root="16.840.1.349794.10.22.4.2" /> <id nullFlavor="NA" /> <code codeSystem="local" code="AMONR" displayName="Absolute Monocytes" /> <statusCode code="completed" /> <effectiveTime value="" /> <value unit="10*3/uL" xsi :type="PQ" value="0.78" /> <referenceRange> < observationRange> <text>0.30-1.00</text> </ observationRange> </referenceRange> </observation> </ component> <component> <observation moodCode="EVN" classCode="OBS"> <templateId root="10.29.840.1.801776.07.02.22.4.2" /> <id nullFlavor="NA" /> <code codeSystem="local" code="ASEGR" displayName= "Absolute Neutrophils" /> <statusCode code="completed" /> < effectiveTime value="" /> <value unit="10*3/uL" xsi:type= "PQ" value="2.60" /> <referenceRange> <observationRange> <text>1.90-7.00</text> </observationRange> </ referenceRange> </observation> </component> <component> <observation moodCode="EVN" classCode="OBS"> <templateId root= "10.29.840.1.995974.10.22.4.2" /> <id nullFlavor="NA" /> < code codeSystem="local" code="BASOR" displayName="Basophils" /> < statusCode code="completed" /> <effectiveTime value="" /> <value unit="%" xsi:type="PQ" value="1" /> <referenceRange > <observationRange> <text>0-2</text> </ observationRange> </referenceRange> </observation> </ component> <component> <observation moodCode="EVN" classCode="OBS"> <templateId root="10.29.840.1.042185.10.20.22.4.2" /> <id nullFlavor="NA" /> <code codeSystem="local" code="EOSR" displayName= "Eosinophils" /> <statusCode code="completed" /> < effectiveTime value="871552423932" /> <value unit="%" xsi:type="PQ " value="13" /> <interpretationCode codeSystem="local" code="*" /> <referenceRange> <observationRange> <text>0-4</ text> </observationRange> </referenceRange> </ observation> </component> <component> <observation moodCode= "EVN" classCode="OBS"> <templateId root="10.29.840.1.443285.10..22.4.2 " /> <id nullFlavor="NA" /> <code codeSystem="local" code="HCT " displayName="HCT" /> <statusCode code="completed" /> < effectiveTime value="455203124699" /> <value unit="%" xsi:type="PQ " value="37.0" /> <interpretationCode codeSystem="local" code="*" /> <referenceRange> <observationRange> <text>42.0- 52.0</text> </observationRange> </referenceRange> </ observation> </component> <component> <observation moodCode= "EVN" classCode="OBS"> <templateId root="10.29.840.1.399146.10.20.22.4.2 " /> <id nullFlavor="NA" /> <code codeSystem="local" code="HGB " displayName="HGB" /> <statusCode code="completed" /> < effectiveTime value="" /> <value unit="g/dL" xsi:type="PQ" value="12.2" /> <interpretationCode codeSystem="local" code="*" /> <referenceRange> <observationRange> <text>14.0- 18.0</text> </observationRange> </referenceRange> </ observation> </component> <component> <observation moodCode= "EVN" classCode="OBS"> <templateId root="2.16.840.1.647107....4.2 " /> <id nullFlavor="NA" /> <code codeSystem="local" code= "IMGA" displayName="Immature Granulocytes" /> <statusCode code= "completed" /> <effectiveTime value="" /> <value unit="%" xsi:type="PQ" value="0.5" /> <referenceRange> < observationRange> <text>0.0-1.0</text> </ observationRange> </referenceRange> </observation> </ component> <component> <observation moodCode="EVN" classCode="OBS"> <templateId root="2.16.840.1.325182....4.2" /> <id nullFlavor="NA" /> <code codeSystem="local" code="LYMPR" displayName= "Lymphocytes" /> <statusCode code="completed" /> < effectiveTime value="" /> <value unit="%" xsi:type="PQ " value="30" /> <referenceRange> <observationRange> <text>20-46</text> </observationRange> </ referenceRange> </observation> </component> <component> <observation moodCode="EVN" classCode="OBS"> <templateId root= "16.840.1.512715.10.20.22.4.2" /> <id nullFlavor="NA" /> < code codeSystem="local" code="MCH" displayName="MCH" /> <statusCode code="completed" /> <effectiveTime value="" /> < value unit="pg" xsi:type="PQ" value="29.8" /> <referenceRange> <observationRange> <text>27.0-32.0</text> </ observationRange> </referenceRange> </observation> </ component> <component> <observation moodCode="EVN" classCode="OBS"> <templateId root="10.29.840.1.045982.10.20.22.4.2" /> <id nullFlavor="NA" /> <code codeSystem="local" code="MCHC" displayName= "MCHC" /> <statusCode code="completed" /> <effectiveTime value ="" /> <value unit="g/dL" xsi:type="PQ" value="33.0" /> <referenceRange> <observationRange> <text>32.0- 36.0</text> </observationRange> </referenceRange> </ observation> </component> <component> <observation moodCode= "EVN" classCode="OBS"> <templateId root="10.29.840.1.774677.10.20.22.4.2 " /> <id nullFlavor="NA" /> <code codeSystem="local" code="MCV " displayName="MCV" /> <statusCode code="completed" /> < effectiveTime value="" /> <value unit="fL" xsi:type="PQ" value="90.2" /> <referenceRange> <observationRange> <text>82.0-99.0</text> </observationRange> </ referenceRange> </observation> </component> <component> <observation moodCode="EVN" classCode="OBS"> <templateId root= "216.840.1.524468.10.2022.4.2" /> <id nullFlavor="NA" /> < code codeSystem="local" code="MONOR" displayName="Monocytes" /> < statusCode code="completed" /> <effectiveTime value="" /> <value unit="%" xsi:type="PQ" value="13" /> < interpretationCode codeSystem="local" code="*" /> <referenceRange> <observationRange> <text>4-11</text> </ observationRange> </referenceRange> </observation> </ component> <component> <observation moodCode="EVN" classCode="OBS"> <templateId root="10.29.840.1.841840.10.4.2" /> <id nullFlavor="NA" /> <code codeSystem="local" code="MPV" displayName="MPV " /> <statusCode code="completed" /> <effectiveTime value= "" /> <value unit="fL" xsi:type="PQ" value="10.6" /> <referenceRange> <observationRange> <text>9.4-12.3</ text> </observationRange> </referenceRange> </ observation> </component> <component> <observation moodCode= "EVN" classCode="OBS"> <templateId root="10.29.840.1.363698.1022.4.2 " /> <id nullFlavor="NA" /> <code codeSystem="local" code= "SEGR" displayName="Neutrophils" /> <statusCode code="completed" /> <effectiveTime value="" /> <value unit="%" xsi: type="PQ" value="43" /> <interpretationCode codeSystem="local" code="* " /> <referenceRange> <observationRange> <text> 51-75</text> </observationRange> </referenceRange> </ observation> </component> <component> <observation moodCode= "EVN" classCode="OBS"> <templateId root="16.840.1.271548.1022.4.2 " /> <id nullFlavor="NA" /> <code codeSystem="local" code= "NRBCA" displayName="Nucleated RBC Automated" /> <statusCode code= "completed" /> <effectiveTime value="" /> <value unit="/100WBC" xsi:type="PQ" value="0.0" /> <referenceRange> <observationRange> <text /> </observationRange> </referenceRange> </observation> </component> <component> <observation moodCode="EVN" classCode="OBS"> <templateId root= "840.1.132970.1022.4.2" /> <id nullFlavor="NA" /> < code codeSystem="local" code="PLT" displayName="Platelet Count" /> < statusCode code="completed" /> <effectiveTime value="" /> <value unit="K/uL" xsi:type="PQ" value="156" /> < referenceRange> <observationRange> <text>150-400</text> </observationRange> </referenceRange> </observation > </component> <component> <observation moodCode="EVN" classCode="OBS"> <templateId root="10.29.840.1.570542.10.22.4.2" /> <id nullFlavor="NA" /> <code codeSystem="local" code="RBC" displayName="RBC" /> <statusCode code="completed" /> < effectiveTime value="" /> <value unit="10*6/uL" xsi:type= "PQ" value="4.10" /> <interpretationCode codeSystem="local" code="*" / > <referenceRange> <observationRange> <text> 4.60-6.20</text> </observationRange> </referenceRange> </observation> </component> <component> <observation moodCode="EVN" classCode="OBS"> <templateId root= "2.16.840.1.563537....4.2" /> <id nullFlavor="NA" /> < code codeSystem="local" code="RDW" displayName="RDW" /> <statusCode code="completed" /> <effectiveTime value="" /> < value unit="%" xsi:type="PQ" value="14.4" /> <referenceRange> <observationRange> <text>11.5-14.5</text> </ observationRange> </referenceRange> </observation> </ component> <component> <observation moodCode="EVN" classCode="OBS"> <templateId root="2.16.840.1.924058....4.2" /> <id nullFlavor="NA" /> <code codeSystem="local" code="WBCIR" displayName= "WBC" /> <statusCode code="completed" /> <effectiveTime value= "" /> <value unit="K/uL" xsi:type="PQ" value="6.1" /> <referenceRange> <observationRange> <text>4.8-10.8< /text> </observationRange> </referenceRange> </ observation> </component> </organizer> </entry> <entry> <organizer moodCode="EVN" classCode="BATTERY"> <templateId root= "16.840.1.010855.10..22.4.1" /> <id nullFlavor="NA" /> <code codeSystem="local" code="CMP" displayName="Comprehensive Metabolic Panel (CMP)" /> <statusCode code="completed" /> <component> <observation moodCode="EVN" classCode="OBS"> <templateId root= "16.840.1.186504.10..22.4.2" /> <id nullFlavor="NA" /> < code codeSystem="local" code="ALB" displayName="Albumin" /> < statusCode code="completed" /> <effectiveTime value="209993388483" /> <value unit="g/dL" xsi:type="PQ" value="3.4" /> < interpretationCode codeSystem="local" code="*" /> <referenceRange> <observationRange> <text>3.5-4.8</text> </ observationRange> </referenceRange> </observation> </ component> <component> <observation moodCode="EVN" classCode="OBS"> <templateId root="16.840.1.041923.10..22.4.2" /> <id nullFlavor="NA" /> <code codeSystem="local" code="ALP" displayName= "Alkaline Phosphatase" /> <statusCode code="completed" /> < effectiveTime value="345764321078" /> <value unit="U/L" xsi:type="PQ" value="72" /> <referenceRange> <observationRange> <text>26-104</text> </observationRange> </referenceRange > </observation> </component> <component> <observation moodCode="EVN" classCode="OBS"> <templateId root= "216.840.1.190335.10..22.4.2" /> <id nullFlavor="NA" /> < code codeSystem="local" code="ALT" displayName="ALT (SGPT)" /> < statusCode code="completed" /> <effectiveTime value="157469134827" /> <value unit="U/L" xsi:type="PQ" value="37" /> <referenceRange > <observationRange> <text>17-63</text> </ observationRange> </referenceRange> </observation> </ component> <component> <observation moodCode="EVN" classCode="OBS"> <templateId root="216.840.1.377652.10..4.2" /> <id nullFlavor="NA" /> <code codeSystem="local" code="AGAP" displayName= "Anion Gap" /> <statusCode code="completed" /> <effectiveTime value="260098035320" /> <value unit="mEq/L" xsi:type="PQ" value="6" /> <referenceRange> <observationRange> <text>3-20 </text> </observationRange> </referenceRange> </ observation> </component> <component> <observation moodCode= "EVN" classCode="OBS"> <templateId root="16.840.1.385733.10..4.2 " /> <id nullFlavor="NA" /> <code codeSystem="local" code="AST " displayName="AST (SGOT)" /> <statusCode code="completed" /> <effectiveTime value="839009343671" /> <value unit="U/L" xsi:type="PQ" value="39" /> <referenceRange> <observationRange> <text>15-41</text> </observationRange> </referenceRange > </observation> </component> <component> <observation moodCode="EVN" classCode="OBS"> <templateId root= "216.840.1.731846...4.2" /> <id nullFlavor="NA" /> < code codeSystem="local" code="BILIT" displayName="Bilirubin Total" /> < statusCode code="completed" /> <effectiveTime value="780975822861" /> <value unit="mg/dL" xsi:type="PQ" value="0.7" /> < referenceRange> <observationRange> <text>0.2-1.2</text> </observationRange> </referenceRange> </observation > </component> <component> <observation moodCode="EVN" classCode="OBS"> <templateId root="16.840.1.935943.07.02.22.4.2" /> <id nullFlavor="NA" /> <code codeSystem="local" code="BUN" displayName="BUN" /> <statusCode code="completed" /> < effectiveTime value="" /> <value unit="mg/dL" xsi:type="PQ " value="14" /> <referenceRange> <observationRange> <text>4-20</text> </observationRange> </referenceRange > </observation> </component> <component> <observation moodCode="EVN" classCode="OBS"> <templateId root= "16.840.1.490936...4.2" /> <id nullFlavor="NA" /> < code codeSystem="local" code="CA" displayName="Calcium" /> <statusCode code="completed" /> <effectiveTime value="153896706868" /> < value unit="mg/dL" xsi:type="PQ" value="8.6" /> <referenceRange> <observationRange> <text>8.6-10.0</text> </ observationRange> </referenceRange> </observation> </ component> <component> <observation moodCode="EVN" classCode="OBS"> <templateId root="216.840.1.834884.10...4.2" /> <id nullFlavor="NA" /> <code codeSystem="local" code="CL" displayName= "Chloride" /> <statusCode code="completed" /> <effectiveTime value="" /> <value unit="mEq/L" xsi:type="PQ" value="103" / > <referenceRange> <observationRange> <text>99- 109</text> </observationRange> </referenceRange> </ observation> </component> <component> <observation moodCode= "EVN" classCode="OBS"> <templateId root="10.29.840.1.876963.10..4.2 " /> <id nullFlavor="NA" /> <code codeSystem="local" code="CO2 " displayName="CO2" /> <statusCode code="completed" /> < effectiveTime value="" /> <value unit="mEq/L" xsi:type="PQ " value="24" /> <referenceRange> <observationRange> <text>22-32</text> </observationRange> </ referenceRange> </observation> </component> <component> <observation moodCode="EVN" classCode="OBS"> <templateId root= "10.29.840.1.483827.10.22.4.2" /> <id nullFlavor="NA" /> < code codeSystem="local" code="CREAT" displayName="Creatinine" /> < statusCode code="completed" /> <effectiveTime value="695346034419" /> <value unit="mg/dL" xsi:type="PQ" value="1.20" /> < referenceRange> <observationRange> <text>0.64-1.27</text > </observationRange> </referenceRange> </observation > </component> <component> <observation moodCode="EVN" classCode="OBS"> <templateId root="216.840.1.698040.10..22.4.2" /> <id nullFlavor="NA" /> <code codeSystem="local" code="GLOB" displayName="Globulin" /> <statusCode code="completed" /> < effectiveTime value="430099260562" /> <value unit="g/dL" xsi:type="PQ" value="3.3" /> <referenceRange> <observationRange> <text>1.9-4.3</text> </observationRange> </ referenceRange> </observation> </component> <component> <observation moodCode="EVN" classCode="OBS"> <templateId root= "16.840.1.527282.10...4.2" /> <id nullFlavor="NA" /> < code codeSystem="local" code="GLU" displayName="Glucose" /> < statusCode code="completed" /> <effectiveTime value="164827089064" /> <value unit="mg/dL" xsi:type="PQ" value="114" /> < interpretationCode codeSystem="local" code="*" /> <referenceRange> <observationRange> <text>70-100</text> </ observationRange> </referenceRange> </observation> </ component> <component> <observation moodCode="EVN" classCode="OBS"> <templateId root="16.840.1.802183.10..22.4.2" /> <id nullFlavor="NA" /> <code codeSystem="local" code="K" displayName= "Potassium" /> <statusCode code="completed" /> <effectiveTime value="685846059536" /> <value unit="mEq/L" xsi:type="PQ" value="4.1" / > <referenceRange> <observationRange> <text>3.6 -5.1</text> </observationRange> </referenceRange> </ observation> </component> <component> <observation moodCode= "EVN" classCode="OBS"> <templateId root="2.16.840.1.049358.10..22.4.2 " /> <id nullFlavor="NA" /> <code codeSystem="local" code="TP " displayName="Protein" /> <statusCode code="completed" /> < effectiveTime value="900597239636" /> <value unit="g/dL" xsi:type="PQ" value="6.7" /> <referenceRange> <observationRange> <text>6.1-7.9</text> </observationRange> </ referenceRange> </observation> </component> <component> <observation moodCode="EVN" classCode="OBS"> <templateId root= "2.16.840.1.808580.10..22.4.2" /> <id nullFlavor="NA" /> < code codeSystem="local" code="NA" displayName="Sodium" /> <statusCode code="completed" /> <effectiveTime value="078587642011" /> < value unit="mEq/L" xsi:type="PQ" value="133" /> <interpretationCode codeSystem="local" code="*" /> <referenceRange> < observationRange> <text>136-144</text> </ observationRange> </referenceRange> </observation> </ component> </organizer> </entry> <entry> <organizer moodCode="EVN" classCode="BATTERY"> <templateId root="10.29.840.1.968722.10.4.1" /> <id nullFlavor="NA" /> <code codeSystem="local" code="GFR" displayName ="eGFR" /> <statusCode code="completed" /> <component> < observation moodCode="EVN" classCode="OBS"> <templateId root= "840.1.450622.07.02.22.4.2" /> <id nullFlavor="NA" /> < code codeSystem="local" code="GFR" displayName="eGFR" /> <statusCode code="completed" /> <effectiveTime value="855620642041" /> < value unit="mL/min" xsi:type="PQ" value=">60" /> <referenceRange> <observationRange> <text>>60</text> </ observationRange> </referenceRange> </observation> </ component> </organizer> </entry> <entry> <organizer moodCode="EVN" classCode="BATTERY"> <templateId root="840.1.613456.07.02.22.4.1" /> <id nullFlavor="NA" /> <code codeSystem="local" code="ALC" displayName ="Alcohol, Blood" /> <statusCode code="completed" /> <component> <observation moodCode="EVN" classCode="OBS"> <templateId root= "840.1.910453.07.02.22.4.2" /> <id nullFlavor="NA" /> < code codeSystem="local" code="ALC" displayName="Alcohol, Blood" /> < statusCode code="completed" /> <effectiveTime value="989621623163" /> <value unit="mg/dL" xsi:type="PQ" value="Not Detected" /> < referenceRange> <observationRange> <text /> < /observationRange> </referenceRange> </observation> </ component> </organizer> </entry> <entry> <organizer moodCode="EVN" classCode="BATTERY"> <templateId root="10.29.840.1.497885.10..22.4.1" /> <id nullFlavor="NA" /> <code codeSystem="local" code="VCHMN" displayName="Chem 8 NPT" /> <statusCode code="completed" /> <component > <observation moodCode="EVN" classCode="OBS"> <templateId root= "10.29.840.1.647799.10..22.4.2" /> <id nullFlavor="NA" /> < code codeSystem="local" code="VAGAP" displayName="Anion Gap" /> < statusCode code="completed" /> <effectiveTime value="163707901362" /> <value unit="mEq/L" xsi:type="PQ" value="10" /> < referenceRange> <observationRange> <text>3-20</text> </observationRange> </referenceRange> </observation> </component> <component> <observation moodCode="EVN" classCode= "OBS"> <templateId root="10.29.840.1.405165.10..22.4.2" /> < id nullFlavor="NA" /> <code codeSystem="local" code="VBUNN" displayName ="BUN Venous" /> <statusCode code="completed" /> < effectiveTime value="246512174856" /> <value unit="mg/dl" xsi:type="PQ " value="17" /> <referenceRange> <observationRange> <text>4-20</text> </observationRange> </referenceRange > </observation> </component> <component> <observation moodCode="EVN" classCode="OBS"> <templateId root= "216.840.1.011996.10.22.4.2" /> <id nullFlavor="NA" /> < code codeSystem="local" code="VCANN" displayName="Calcium Ionized Venous" /> <statusCode code="completed" /> <effectiveTime value= "038793169745" /> <value unit="mmol/L" xsi:type="PQ" value="1.11" /> <interpretationCode codeSystem="local" code="*" /> < referenceRange> <observationRange> <text>1.19-1.41</text > </observationRange> </referenceRange> </observation > </component> <component> <observation moodCode="EVN" classCode="OBS"> <templateId root="16.840.1.597407.07.02.22.4.2" /> <id nullFlavor="NA" /> <code codeSystem="local" code="VCREN" displayName="Creatinine Venous" /> <statusCode code="completed" /> <effectiveTime value="083954193825" /> <value unit="mg/dL" xsi: type="PQ" value="1.2" /> <referenceRange> <observationRange > <text>0.7-1.2</text> </observationRange> </ referenceRange> </observation> </component> <component> <observation moodCode="EVN" classCode="OBS"> <templateId root= "216.840.1.056791.1022.4.2" /> <id nullFlavor="NA" /> < code codeSystem="local" code="VGLNN" displayName="Glucose Venous" /> < statusCode code="completed" /> <effectiveTime value="285140386277" /> <value unit="mg/dL" xsi:type="PQ" value="107" /> < interpretationCode codeSystem="local" code="*" /> <referenceRange> <observationRange> <text>70-100</text> </ observationRange> </referenceRange> </observation> </ component> <component> <observation moodCode="EVN" classCode="OBS"> <templateId root="10.29.840.1.433669.22.4.2" /> <id nullFlavor="NA" /> <code codeSystem="local" code="VKNN" displayName= "Potassium, WB" /> <statusCode code="completed" /> < effectiveTime value="859048368037" /> <value unit="mEq/L" xsi:type="PQ " value="4.2" /> <referenceRange> <observationRange> <text>3.6-5.1</text> </observationRange> </ referenceRange> </observation> </component> <component> <observation moodCode="EVN" classCode="OBS"> <templateId root= "840.1.694556.07.02.22.4.2" /> <id nullFlavor="NA" /> < code codeSystem="local" code="VNANN" displayName="Sodium Venous" /> < statusCode code="completed" /> <effectiveTime value="226711717573" /> <value unit="mEq/L" xsi:type="PQ" value="136" /> < referenceRange> <observationRange> <text>136-144</text> </observationRange> </referenceRange> </observation > </component> <component> <observation moodCode="EVN" classCode="OBS"> <templateId root="10.29.840.1.132944..22.4.2" /> <id nullFlavor="NA" /> <code codeSystem="local" code="VTCNN" displayName="Total CO2 Venous" /> <statusCode code="completed" /> <effectiveTime value="745020157538" /> <value unit="mEq/L" xsi: type="PQ" value="24" /> <interpretationCode codeSystem="local" code="* " /> <referenceRange> <observationRange> <text> 25-29</text> </observationRange> </referenceRange> </ observation> </component> <component> <observation moodCode= "EVN" classCode="OBS"> <templateId root="2.16.840.1.157501.10..4.2 " /> <id nullFlavor="NA" /> <code codeSystem="local" code= "VCLN" displayName="Venous CL" /> <statusCode code="completed" /> <effectiveTime value="956729184761" /> <value unit="mEq/L" xsi: type="PQ" value="102" /> <referenceRange> <observationRange > <text>99-109</text> </observationRange> </ referenceRange> </observation> </component> <component> <observation moodCode="EVN" classCode="OBS"> <templateId root= "2.16.840.1.046479.10..22.4.2" /> <id nullFlavor="NA" /> < code codeSystem="local" code="VHCNN" displayName="HCT Venous" /> < statusCode code="completed" /> <effectiveTime value="325621809886" /> <value unit="%" xsi:type="PQ" value="38.0" /> < interpretationCode codeSystem="local" code="*" /> <referenceRange> <observationRange> <text>42.0-52.0</text> </ observationRange> </referenceRange> </observation> </ component> <component> <observation moodCode="EVN" classCode="OBS"> <templateId root="216.840.1.560984.10.22.4.2" /> <id nullFlavor="NA" /> <code codeSystem="local" code="VHGNN" displayName= "HGB Venous NPT" /> <statusCode code="completed" /> < effectiveTime value="030849309092" /> <value unit="g/dL" xsi:type="PQ" value="12.9" /> <interpretationCode codeSystem="local" code="*" /> <referenceRange> <observationRange> <text>14.0- 16.0</text> </observationRange> </referenceRange> </ observation> </component> </organizer> </entry> <entry> <organizer moodCode="EVN" classCode="BATTERY"> <templateId root= "216.840.1.133326.10..22.4.1" /> <id nullFlavor="NA" /> <code codeSystem="local" code="LACTN" displayName="Lactic Acid NPT" /> < statusCode code="completed" /> <component> <observation moodCode= "EVN" classCode="OBS"> <templateId root="16.840.1.139149.10..22.4.2 " /> <id nullFlavor="NA" /> <code codeSystem="local" code= "LACTN" displayName="Lactic Acid NPT" /> <statusCode code="completed" / > <effectiveTime value="710442229125" /> <value unit="mEq/L" xsi:type="PQ" value="1.5" /> <referenceRange> < observationRange> <text>0.5-2.0</text> </ observationRange> </referenceRange> </observation> </ component> </organizer> </entry> <entry> <organizer moodCode="EVN" classCode="BATTERY"> <templateId root="16.840.1.769191.07.02.22.4.1" /> <id nullFlavor="NA" /> <code codeSystem="local" code="TROP" displayName="Troponin" /> <statusCode code="completed" /> <component> <observation moodCode="EVN" classCode="OBS"> <templateId root= "840.1.701426.07.02.22.4.2" /> <id nullFlavor="NA" /> < code codeSystem="local" code="TROP" displayName="Troponin" /> < statusCode code="completed" /> <effectiveTime value="612372879263" /> <value unit="ng/mL" xsi:type="PQ" value="<0.05" /> < referenceRange> <observationRange> <text><0.06</text > </observationRange> </referenceRange> </observation > </component> </organizer> </entry> <entry> <organizer moodCode= "EVN" classCode="BATTERY"> <templateId root="10.29.840.1.020218.07.02.22.4.1 " /> <id nullFlavor="NA" /> <code codeSystem="local" code="UA" displayName="Urinalysis with reflex microscopic" /> <statusCode code= "completed" /> <component> <observation moodCode="EVN" classCode= "OBS"> <templateId root="10.29.840.1.744207.07.02.22.4.2" /> < id nullFlavor="NA" /> <code codeSystem="local" code="UAPP" displayName= "Appearance" /> <statusCode code="completed" /> < effectiveTime value="328023466971" /> <value unit="NA" xsi:type="PQ" value="Cloudy" /> <interpretationCode codeSystem="local" code="*" /> <referenceRange> <observationRange> <text /> </observationRange> </referenceRange> </observation> </component> <component> <observation moodCode="EVN" classCode= "OBS"> <templateId root="16.840.1.354596.10..4.2" /> < id nullFlavor="NA" /> <code codeSystem="local" code="UBIL" displayName= "Bilirubin" /> <statusCode code="completed" /> <effectiveTime value="553401517691" /> <value unit="NA" xsi:type="PQ" value="Negative " /> <referenceRange> <observationRange> <text> Negative</text> </observationRange> </referenceRange> </observation> </component> <component> <observation moodCode ="EVN" classCode="OBS"> <templateId root= "10.29.840.1.454802.07.02.22.4.2" /> <id nullFlavor="NA" /> < code codeSystem="local" code="UBLD" displayName="Blood" /> <statusCode code="completed" /> <effectiveTime value="184373994834" /> < value unit="NA" xsi:type="PQ" value="Negative" /> <referenceRange> <observationRange> <text>Negative</text> </ observationRange> </referenceRange> </observation> </ component> <component> <observation moodCode="EVN" classCode="OBS"> <templateId root="10.29.840.1.018693.07.02.22.4.2" /> <id nullFlavor="NA" /> <code codeSystem="local" code="UCOLR" displayName= "Color" /> <statusCode code="completed" /> <effectiveTime value="037208799199" /> <value unit="NA" xsi:type="PQ" value="Leonila" / > <interpretationCode codeSystem="local" code="*" /> < referenceRange> <observationRange> <text /> < /observationRange> </referenceRange> </observation> </ component> <component> <observation moodCode="EVN" classCode="OBS"> <templateId root="2.16.840.1.485214.10..22.4.2" /> <id nullFlavor="NA" /> <code codeSystem="local" code="UGLU" displayName= "Glucose, Urine" /> <statusCode code="completed" /> < effectiveTime value="553480133167" /> <value unit="" xsi:type="PQ" value="Pos 1+" /> <interpretationCode codeSystem="local" code="*" /> <referenceRange> <observationRange> <text> Negative</text> </observationRange> </referenceRange> </observation> </component> <component> <observation moodCode ="EVN" classCode="OBS"> <templateId root= "2.16.840.1.524399.10..22.4.2" /> <id nullFlavor="NA" /> < code codeSystem="local" code="UKET" displayName="Ketones" /> < statusCode code="completed" /> <effectiveTime value="664787711429" /> <value unit="" xsi:type="PQ" value="Trace" /> < interpretationCode codeSystem="local" code="*" /> <referenceRange> <observationRange> <text>Negative</text> </ observationRange> </referenceRange> </observation> </ component> <component> <observation moodCode="EVN" classCode="OBS"> <templateId root="16.840.1.814135.10..4.2" /> <id nullFlavor="NA" /> <code codeSystem="local" code="ULEU" displayName= "Leukocyte Esterase" /> <statusCode code="completed" /> < effectiveTime value="" /> <value unit="NA" xsi:type="PQ" value="Negative" /> <referenceRange> <observationRange> <text>Negative</text> </observationRange> </ referenceRange> </observation> </component> <component> <observation moodCode="EVN" classCode="OBS"> <templateId root= "16.840.1.189088...4.2" /> <id nullFlavor="NA" /> < code codeSystem="local" code="UNIT" displayName="Nitrites" /> < statusCode code="completed" /> <effectiveTime value="719923163985" /> <value unit="NA" xsi:type="PQ" value="Negative" /> < referenceRange> <observationRange> <text>Negative</text > </observationRange> </referenceRange> </observation > </component> <component> <observation moodCode="EVN" classCode="OBS"> <templateId root="10.29.840.1.479934....4.2" /> <id nullFlavor="NA" /> <code codeSystem="local" code="UPH" displayName="pH" /> <statusCode code="completed" /> < effectiveTime value="143337432056" /> <value unit="NA" xsi:type="PQ" value="5.0" /> <referenceRange> <observationRange> <text>5.0-8.0</text> </observationRange> </ referenceRange> </observation> </component> <component> <observation moodCode="EVN" classCode="OBS"> <templateId root= "216.840.1.845322.10.4.2" /> <id nullFlavor="NA" /> < code codeSystem="local" code="UPRO" displayName="Protein" /> < statusCode code="completed" /> <effectiveTime value="125492556388" /> <value unit="NA" xsi:type="PQ" value="Pos 2+" /> < interpretationCode codeSystem="local" code="*" /> <referenceRange> <observationRange> <text>Negative</text> </ observationRange> </referenceRange> </observation> </ component> <component> <observation moodCode="EVN" classCode="OBS"> <templateId root="10.29.840.1.427662.07.02.224.2" /> <id nullFlavor="NA" /> <code codeSystem="local" code="USPG" displayName= "Specific [place]" /> <statusCode code="completed" /> < effectiveTime value="902992704984" /> <value unit="NA" xsi:type="PQ" value="1.020" /> <referenceRange> <observationRange> <text>1.003-1.030</text> </observationRange> </ referenceRange> </observation> </component> <component> <observation moodCode="EVN" classCode="OBS"> <templateId root= "10.29.840.1.807715.07.02.22.4.2" /> <id nullFlavor="NA" /> < code codeSystem="local" code="UTYP" displayName="UA Collection type" /> <statusCode code="completed" /> <effectiveTime value="484409273734" / > <value unit="NA" xsi:type="PQ" value="Voided" /> < referenceRange> <observationRange> <text /> < /observationRange> </referenceRange> </observation> </ component> <component> <observation moodCode="EVN" classCode="OBS"> <templateId root="10.29.840.1.772837.07.02.22.4.2" /> <id nullFlavor="NA" /> <code codeSystem="local" code="UURO" displayName= "Urobilinogen" /> <statusCode code="completed" /> < effectiveTime value="863398353988" /> <value unit="mg/dL" xsi:type="PQ " value="4.0" /> <referenceRange> <observationRange> <text><1.0</text> </observationRange> </ referenceRange> </observation> </component> </organizer> </entry > <entry> <organizer moodCode="EVN" classCode="BATTERY"> <templateId root="840.1.066771.07.02.22.4.1" /> <id nullFlavor="NA" /> <code codeSystem="local" code="UMIC" displayName="Urine Microscopic" /> < statusCode code="completed" /> <component> <observation moodCode= "EVN" classCode="OBS"> <templateId root="10.29.840.1.558902.07.02.22.4.2 " /> <id nullFlavor="NA" /> <code codeSystem="local" code= "UBAC" displayName="Bacteria" /> <statusCode code="completed" /> <effectiveTime value="968387935661" /> <value unit="NA" xsi:type= "PQ" value="Moderate" /> <interpretationCode codeSystem="local" code="* " /> <referenceRange> <observationRange> <text /> </observationRange> </referenceRange> </ observation> </component> <component> <observation moodCode= "EVN" classCode="OBS"> <templateId root="10.29.840.1.683705.10.4.2 " /> <id nullFlavor="NA" /> <code codeSystem="local" code= "UCRY1" displayName="Crystals" /> <statusCode code="completed" /> <effectiveTime value="442919879265" /> <value unit="NA" xsi:type= "PQ" value="Amorphous" /> <referenceRange> <observationRange > <text /> </observationRange> </referenceRange > </observation> </component> <component> <observation moodCode="EVN" classCode="OBS"> <templateId root= "840.1.222194.07.02.22.4.2" /> <id nullFlavor="NA" /> < code codeSystem="local" code="UEPI" displayName="Epithelial Cells" /> < statusCode code="completed" /> <effectiveTime value="655068379543" /> <value unit="/HPF" xsi:type="PQ" value="0" /> <referenceRange > <observationRange> <text /> </ observationRange> </referenceRange> </observation> </ component> <component> <observation moodCode="EVN" classCode="OBS"> <templateId root="840.1.348033.07.02.22.4.2" /> <id nullFlavor="NA" /> <code codeSystem="local" code="UHCST" displayName= "Hyaline Casts" /> <statusCode code="completed" /> < effectiveTime value="790915222957" /> <value unit="/LPF" xsi:type="PQ" value=">12" /> <interpretationCode codeSystem="local" code="*" /> <referenceRange> <observationRange> <text>0-3</ text> </observationRange> </referenceRange> </ observation> </component> <component> <observation moodCode= "EVN" classCode="OBS"> <templateId root="10.29.840.1.568136.22.4.2 " /> <id nullFlavor="NA" /> <code codeSystem="local" code= "URBC" displayName="RBC, Urine" /> <statusCode code="completed" /> <effectiveTime value="173984865779" /> <value unit="/HPF" xsi: type="PQ" value="2" /> <referenceRange> <observationRange> <text>0-2</text> </observationRange> </ referenceRange> </observation> </component> <component> <observation moodCode="EVN" classCode="OBS"> <templateId root= "840.1.026352.07.02.22.4.2" /> <id nullFlavor="NA" /> < code codeSystem="local" code="UMUC" displayName="Urine Mucus" /> < statusCode code="completed" /> <effectiveTime value="719722702434" /> <value unit="NA" xsi:type="PQ" value="Present" /> < referenceRange> <observationRange> <text /> < /observationRange> </referenceRange> </observation> </ component> <component> <observation moodCode="EVN" classCode="OBS"> <templateId root="10.29.840.1.967235.07.02.22.4.2" /> <id nullFlavor="NA" /> <code codeSystem="local" code="UWBC" displayName= "WBC, Urine" /> <statusCode code="completed" /> < effectiveTime value="660798544977" /> <value unit="/HPF" xsi:type="PQ" value="5" /> <interpretationCode codeSystem="local" code="*" /> <referenceRange> <observationRange> <text>0-4</text> </observationRange> </referenceRange> </observation > </component> </organizer> </entry> <entry> <organizer moodCode= "EVN" classCode="BATTERY"> <templateId root="216.840.1.515404.10..22.4.1 " /> <id nullFlavor="NA" /> <code codeSystem="local" code="CBCWD" displayName="CBC With Platelet and Differential" /> <statusCode code= "completed" /> <component> <observation moodCode="EVN" classCode= "OBS"> <templateId root="2.16.840.1.129843.10...4.2" /> < id nullFlavor="NA" /> <code codeSystem="local" code="ABASR" displayName ="Absolute Basophils" /> <statusCode code="completed" /> < effectiveTime value="327974717605" /> <value unit="10*3/uL" xsi:type= "PQ" value="0.03" /> <referenceRange> <observationRange> <text>0.00-0.20</text> </observationRange> </ referenceRange> </observation> </component> <component> <observation moodCode="EVN" classCode="OBS"> <templateId root= "216.840.1.485578.10..22.4.2" /> <id nullFlavor="NA" /> < code codeSystem="local" code="AEOSR" displayName="Absolute Eosinophils" /> <statusCode code="completed" /> <effectiveTime value="029573826783 " /> <value unit="10*3/uL" xsi:type="PQ" value="0.70" /> < interpretationCode codeSystem="local" code="*" /> <referenceRange> <observationRange> <text>0.00-0.50</text> </ observationRange> </referenceRange> </observation> </ component> <component> <observation moodCode="EVN" classCode="OBS"> <templateId root="16.840.1.358458.10.20.22.4.2" /> <id nullFlavor="NA" /> <code codeSystem="local" code="ALYMR" displayName= "Absolute Lymphocytes" /> <statusCode code="completed" /> < effectiveTime value="521117966460" /> <value unit="10*3/uL" xsi:type= "PQ" value="2.06" /> <referenceRange> <observationRange> <text>0.80-3.30</text> </observationRange> </ referenceRange> </observation> </component> <component> <observation moodCode="EVN" classCode="OBS"> <templateId root= "10.29.840.1.710045.10.20.22.4.2" /> <id nullFlavor="NA" /> < code codeSystem="local" code="AMONR" displayName="Absolute Monocytes" /> <statusCode code="completed" /> <effectiveTime value="663363763936" /> <value unit="10*3/uL" xsi:type="PQ" value="0.61" /> < referenceRange> <observationRange> <text>0.30-1.00</text > </observationRange> </referenceRange> </observation > </component> <component> <observation moodCode="EVN" classCode="OBS"> <templateId root="2.16.840.1.564182.10.20.22.4.2" /> <id nullFlavor="NA" /> <code codeSystem="local" code="ASEGR" displayName="Absolute Neutrophils" /> <statusCode code="completed" /> <effectiveTime value="142776107165" /> <value unit="10*3/uL" xsi:type="PQ" value="1.32" /> <interpretationCode codeSystem="local" code="*" /> <referenceRange> <observationRange> <text>1.90-7.00</text> </observationRange> </ referenceRange> </observation> </component> <component> <observation moodCode="EVN" classCode="OBS"> <templateId root= "16.840.1.933093.10.22.4.2" /> <id nullFlavor="NA" /> < code codeSystem="local" code="BASOR" displayName="Basophils" /> < statusCode code="completed" /> <effectiveTime value="803777882195" /> <value unit="%" xsi:type="PQ" value="1" /> <referenceRange > <observationRange> <text>0-2</text> </ observationRange> </referenceRange> </observation> </ component> <component> <observation moodCode="EVN" classCode="OBS"> <templateId root="16.840.1.272872.10.20.22.4.2" /> <id nullFlavor="NA" /> <code codeSystem="local" code="EOSR" displayName= "Eosinophils" /> <statusCode code="completed" /> < effectiveTime value="894511545386" /> <value unit="%" xsi:type="PQ " value="15" /> <interpretationCode codeSystem="local" code="*" /> <referenceRange> <observationRange> <text>0-4</ text> </observationRange> </referenceRange> </ observation> </component> <component> <observation moodCode= "EVN" classCode="OBS"> <templateId root="216.840.1.490579.10.20.22.4.2 " /> <id nullFlavor="NA" /> <code codeSystem="local" code="HCT " displayName="HCT" /> <statusCode code="completed" /> < effectiveTime value="815616536084" /> <value unit="%" xsi:type="PQ " value="36.5" /> <interpretationCode codeSystem="local" code="*" /> <referenceRange> <observationRange> <text>42.0- 52.0</text> </observationRange> </referenceRange> </ observation> </component> <component> <observation moodCode= "EVN" classCode="OBS"> <templateId root="10.29.840.1.824263.10...4.2 " /> <id nullFlavor="NA" /> <code codeSystem="local" code="HGB " displayName="HGB" /> <statusCode code="completed" /> < effectiveTime value="188724960636" /> <value unit="g/dL" xsi:type="PQ" value="12.0" /> <interpretationCode codeSystem="local" code="*" /> <referenceRange> <observationRange> <text>14.0- 18.0</text> </observationRange> </referenceRange> </ observation> </component> <component> <observation moodCode= "EVN" classCode="OBS"> <templateId root="16.840.1.454870.10.20.22.4.2 " /> <id nullFlavor="NA" /> <code codeSystem="local" code= "IMGA" displayName="Immature Granulocytes" /> <statusCode code= "completed" /> <effectiveTime value="012291009564" /> <value unit="%" xsi:type="PQ" value="1.0" /> <referenceRange> < observationRange> <text>0.0-1.0</text> </ observationRange> </referenceRange> </observation> </ component> <component> <observation moodCode="EVN" classCode="OBS"> <templateId root="10.29.840.1.829515.10.20.22.4.2" /> <id nullFlavor="NA" /> <code codeSystem="local" code="LYMPR" displayName= "Lymphocytes" /> <statusCode code="completed" /> < effectiveTime value="099504411175" /> <value unit="%" xsi:type="PQ " value="43" /> <referenceRange> <observationRange> <text>20-46</text> </observationRange> </ referenceRange> </observation> </component> <component> <observation moodCode="EVN" classCode="OBS"> <templateId root= "10.29.840.1.299682.10.20.22.4.2" /> <id nullFlavor="NA" /> < code codeSystem="local" code="MCH" displayName="MCH" /> <statusCode code="completed" /> <effectiveTime value="697581935454" /> < value unit="pg" xsi:type="PQ" value="29.9" /> <referenceRange> <observationRange> <text>27.0-32.0</text> </ observationRange> </referenceRange> </observation> </ component> <component> <observation moodCode="EVN" classCode="OBS"> <templateId root=".1.996734.10.22.4.2" /> <id nullFlavor="NA" /> <code codeSystem="local" code="MCHC" displayName= "MCHC" /> <statusCode code="completed" /> <effectiveTime value ="670265403801" /> <value unit="g/dL" xsi:type="PQ" value="32.9" /> <referenceRange> <observationRange> <text>32.0- 36.0</text> </observationRange> </referenceRange> </ observation> </component> <component> <observation moodCode= "EVN" classCode="OBS"> <templateId root="216.840.1.526251.07.02.22.4.2 " /> <id nullFlavor="NA" /> <code codeSystem="local" code="MCV " displayName="MCV" /> <statusCode code="completed" /> < effectiveTime value="166411748240" /> <value unit="fL" xsi:type="PQ" value="90.8" /> <referenceRange> <observationRange> <text>82.0-99.0</text> </observationRange> </ referenceRange> </observation> </component> <component> <observation moodCode="EVN" classCode="OBS"> <templateId root= "16.840.1.375662.10.22.4.2" /> <id nullFlavor="NA" /> < code codeSystem="local" code="MONOR" displayName="Monocytes" /> < statusCode code="completed" /> <effectiveTime value="691345164479" /> <value unit="%" xsi:type="PQ" value="13" /> < interpretationCode codeSystem="local" code="*" /> <referenceRange> <observationRange> <text>4-11</text> </ observationRange> </referenceRange> </observation> </ component> <component> <observation moodCode="EVN" classCode="OBS"> <templateId root="216.840.1.716803.1022.4.2" /> <id nullFlavor="NA" /> <code codeSystem="local" code="MPV" displayName="MPV " /> <statusCode code="completed" /> <effectiveTime value= "260547048325" /> <value unit="fL" xsi:type="PQ" value="10.9" /> <referenceRange> <observationRange> <text>9.4-12.3</ text> </observationRange> </referenceRange> </ observation> </component> <component> <observation moodCode= "EVN" classCode="OBS"> <templateId root="10.29.840.1.976361.10.4.2 " /> <id nullFlavor="NA" /> <code codeSystem="local" code= "SEGR" displayName="Neutrophils" /> <statusCode code="completed" /> <effectiveTime value="125968559537" /> <value unit="%" xsi: type="PQ" value="28" /> <interpretationCode codeSystem="local" code="* " /> <referenceRange> <observationRange> <text> 51-75</text> </observationRange> </referenceRange> </ observation> </component> <component> <observation moodCode= "EVN" classCode="OBS"> <templateId root="10.29.840.1.275211.10.22.4.2 " /> <id nullFlavor="NA" /> <code codeSystem="local" code= "NRBCA" displayName="Nucleated RBC Automated" /> <statusCode code= "completed" /> <effectiveTime value="479234162358" /> <value unit="/100WBC" xsi:type="PQ" value="0.0" /> <referenceRange> <observationRange> <text /> </observationRange> </referenceRange> </observation> </component> <component> <observation moodCode="EVN" classCode="OBS"> <templateId root= "10.29.840.1.598476.22.4.2" /> <id nullFlavor="NA" /> < code codeSystem="local" code="PLT" displayName="Platelet Count" /> < statusCode code="completed" /> <effectiveTime value="823870218965" /> <value unit="K/uL" xsi:type="PQ" value="139" /> < interpretationCode codeSystem="local" code="*" /> <referenceRange> <observationRange> <text>150-400</text> </ observationRange> </referenceRange> </observation> </ component> <component> <observation moodCode="EVN" classCode="OBS"> <templateId root="10.29.840.1.172710.22.4.2" /> <id nullFlavor="NA" /> <code codeSystem="local" code="RBC" displayName="RBC " /> <statusCode code="completed" /> <effectiveTime value= "425055853027" /> <value unit="10*6/uL" xsi:type="PQ" value="4.02" /> <interpretationCode codeSystem="local" code="*" /> < referenceRange> <observationRange> <text>4.60-6.20</text > </observationRange> </referenceRange> </observation > </component> <component> <observation moodCode="EVN" classCode="OBS"> <templateId root="10.29.840.1.270679.07.02.22.4.2" /> <id nullFlavor="NA" /> <code codeSystem="local" code="RDW" displayName="RDW" /> <statusCode code="completed" /> < effectiveTime value="719464570559" /> <value unit="%" xsi:type="PQ " value="14.8" /> <interpretationCode codeSystem="local" code="*" /> <referenceRange> <observationRange> <text>11.5- 14.5</text> </observationRange> </referenceRange> </ observation> </component> <component> <observation moodCode= "EVN" classCode="OBS"> <templateId root="840.1.105349.07.02.22.4.2 " /> <id nullFlavor="NA" /> <code codeSystem="local" code= "WBCIR" displayName="WBC" /> <statusCode code="completed" /> < effectiveTime value="090816355389" /> <value unit="K/uL" xsi:type="PQ" value="4.8" /> <referenceRange> <observationRange> <text>4.8-10.8</text> </observationRange> </ referenceRange> </observation> </component> </organizer> </entry > <entry> <organizer moodCode="EVN" classCode="BATTERY"> <templateId root="840.1.717527.07.02.22.4.1" /> <id nullFlavor="NA" /> <code codeSystem="local" code="PHOS" displayName="Phosphorus" /> <statusCode code ="completed" /> <component> <observation moodCode="EVN" classCode= "OBS"> <templateId root="840.1.209408.1022.4.2" /> < id nullFlavor="NA" /> <code codeSystem="local" code="PHOS" displayName= "Phosphorus" /> <statusCode code="completed" /> < effectiveTime value="393622699376" /> <value unit="mg/dL" xsi:type="PQ " value="4.6" /> <referenceRange> <observationRange> <text>2.4-4.7</text> </observationRange> </ referenceRange> </observation> </component> </organizer> </entry > <entry> <organizer moodCode="EVN" classCode="BATTERY"> <templateId root="16.840.1.290126.10..22.4.1" /> <id nullFlavor="NA" /> <code codeSystem="local" code="MG" displayName="Magnesium" /> <statusCode code= "completed" /> <component> <observation moodCode="EVN" classCode= "OBS"> <templateId root="16.840.1.130149.10..22.4.2" /> < id nullFlavor="NA" /> <code codeSystem="local" code="MG" displayName= "Magnesium" /> <statusCode code="completed" /> <effectiveTime value="431885402093" /> <value unit="mg/dL" xsi:type="PQ" value="1.8" / > <referenceRange> <observationRange> <text>1.8 -2.5</text> </observationRange> </referenceRange> </ observation> </component> </organizer> </entry> <entry> <organizer moodCode="EVN" classCode="BATTERY"> <templateId root= "10.29.840.1.475862.10.20.22.4.1" /> <id nullFlavor="NA" /> <code codeSystem="local" code="CMP" displayName="Comprehensive Metabolic Panel (CMP)" /> <statusCode code="completed" /> <component> <observation moodCode="EVN" classCode="OBS"> <templateId root= "16.840.1.508578.10..4.2" /> <id nullFlavor="NA" /> < code codeSystem="local" code="ALB" displayName="Albumin" /> < statusCode code="completed" /> <effectiveTime value="" /> <value unit="g/dL" xsi:type="PQ" value="3.0" /> < interpretationCode codeSystem="local" code="*" /> <referenceRange> <observationRange> <text>3.5-4.8</text> </ observationRange> </referenceRange> </observation> </ component> <component> <observation moodCode="EVN" classCode="OBS"> <templateId root="10.29.840.1.434378.07.02.22.4.2" /> <id nullFlavor="NA" /> <code codeSystem="local" code="ALP" displayName= "Alkaline Phosphatase" /> <statusCode code="completed" /> < effectiveTime value="" /> <value unit="U/L" xsi:type="PQ" value="66" /> <referenceRange> <observationRange> <text>26-104</text> </observationRange> </referenceRange > </observation> </component> <component> <observation moodCode="EVN" classCode="OBS"> <templateId root= "10.29.840.1.462532.10..4.2" /> <id nullFlavor="NA" /> < code codeSystem="local" code="ALT" displayName="ALT (SGPT)" /> < statusCode code="completed" /> <effectiveTime value="" /> <value unit="U/L" xsi:type="PQ" value="30" /> <referenceRange > <observationRange> <text>17-63</text> </ observationRange> </referenceRange> </observation> </ component> <component> <observation moodCode="EVN" classCode="OBS"> <templateId root="2.840.1.368923.10..22.4.2" /> <id nullFlavor="NA" /> <code codeSystem="local" code="AGAP" displayName= "Anion Gap" /> <statusCode code="completed" /> <effectiveTime value="466984450694" /> <value unit="mEq/L" xsi:type="PQ" value="8" /> <referenceRange> <observationRange> <text>3-20 </text> </observationRange> </referenceRange> </ observation> </component> <component> <observation moodCode= "EVN" classCode="OBS"> <templateId root="10.29.840.1.484850.10..22.4.2 " /> <id nullFlavor="NA" /> <code codeSystem="local" code="AST " displayName="AST (SGOT)" /> <statusCode code="completed" /> <effectiveTime value="782230257041" /> <value unit="U/L" xsi:type="PQ" value="31" /> <referenceRange> <observationRange> <text>15-41</text> </observationRange> </referenceRange > </observation> </component> <component> <observation moodCode="EVN" classCode="OBS"> <templateId root= "10.29.840.1.318908.10.20.22.4.2" /> <id nullFlavor="NA" /> < code codeSystem="local" code="BILIT" displayName="Bilirubin Total" /> < statusCode code="completed" /> <effectiveTime value="755339051422" /> <value unit="mg/dL" xsi:type="PQ" value="0.7" /> < referenceRange> <observationRange> <text>0.2-1.2</text> </observationRange> </referenceRange> </observation > </component> <component> <observation moodCode="EVN" classCode="OBS"> <templateId root="16.840.1.976976.07.02.22.4.2" /> <id nullFlavor="NA" /> <code codeSystem="local" code="BUN" displayName="BUN" /> <statusCode code="completed" /> < effectiveTime value="184757596379" /> <value unit="mg/dL" xsi:type="PQ " value="14" /> <referenceRange> <observationRange> <text>4-20</text> </observationRange> </referenceRange > </observation> </component> <component> <observation moodCode="EVN" classCode="OBS"> <templateId root= "216.840.1.503587.07.02.22.4.2" /> <id nullFlavor="NA" /> < code codeSystem="local" code="CA" displayName="Calcium" /> <statusCode code="completed" /> <effectiveTime value="862207571396" /> < value unit="mg/dL" xsi:type="PQ" value="8.1" /> <interpretationCode codeSystem="local" code="*" /> <referenceRange> < observationRange> <text>8.6-10.0</text> </ observationRange> </referenceRange> </observation> </ component> <component> <observation moodCode="EVN" classCode="OBS"> <templateId root="216.840.1.460934.22.4.2" /> <id nullFlavor="NA" /> <code codeSystem="local" code="CL" displayName= "Chloride" /> <statusCode code="completed" /> <effectiveTime value="841760872143" /> <value unit="mEq/L" xsi:type="PQ" value="109" / > <referenceRange> <observationRange> <text>99- 109</text> </observationRange> </referenceRange> </ observation> </component> <component> <observation moodCode= "EVN" classCode="OBS"> <templateId root="216.840.1.900012.07.02.22.4.2 " /> <id nullFlavor="NA" /> <code codeSystem="local" code="CO2 " displayName="CO2" /> <statusCode code="completed" /> < effectiveTime value="542557753707" /> <value unit="mEq/L" xsi:type="PQ " value="19" /> <interpretationCode codeSystem="local" code="*" /> <referenceRange> <observationRange> <text>22-32</ text> </observationRange> </referenceRange> </ observation> </component> <component> <observation moodCode= "EVN" classCode="OBS"> <templateId root="16.840.1.366728.2022.4.2 " /> <id nullFlavor="NA" /> <code codeSystem="local" code= "CREAT" displayName="Creatinine" /> <statusCode code="completed" /> <effectiveTime value="287633233526" /> <value unit="mg/dL" xsi: type="PQ" value="0.99" /> <referenceRange> <observationRange > <text>0.64-1.27</text> </observationRange> </ referenceRange> </observation> </component> <component> <observation moodCode="EVN" classCode="OBS"> <templateId root= "10.29.840.1.521255.10.4.2" /> <id nullFlavor="NA" /> < code codeSystem="local" code="GLOB" displayName="Globulin" /> < statusCode code="completed" /> <effectiveTime value="" /> <value unit="g/dL" xsi:type="PQ" value="2.8" /> < referenceRange> <observationRange> <text>1.9-4.3</text> </observationRange> </referenceRange> </observation > </component> <component> <observation moodCode="EVN" classCode="OBS"> <templateId root="10.29.840.1.823652.07.02.22.4.2" /> <id nullFlavor="NA" /> <code codeSystem="local" code="GLU" displayName="Glucose" /> <statusCode code="completed" /> < effectiveTime value="" /> <value unit="mg/dL" xsi:type="PQ " value="80" /> <referenceRange> <observationRange> <text>70-100</text> </observationRange> </ referenceRange> </observation> </component> <component> <observation moodCode="EVN" classCode="OBS"> <templateId root= "10.29.840.1.442805.22.4.2" /> <id nullFlavor="NA" /> < code codeSystem="local" code="K" displayName="Potassium" /> < statusCode code="completed" /> <effectiveTime value="104452478654" /> <value unit="mEq/L" xsi:type="PQ" value="4.1" /> < referenceRange> <observationRange> <text>3.6-5.1</text> </observationRange> </referenceRange> </observation > </component> <component> <observation moodCode="EVN" classCode="OBS"> <templateId root="16.840.1.289477.10.20.22.4.2" /> <id nullFlavor="NA" /> <code codeSystem="local" code="TP" displayName="Protein" /> <statusCode code="completed" /> < effectiveTime value="870336327394" /> <value unit="g/dL" xsi:type="PQ" value="5.8" /> <interpretationCode codeSystem="local" code="*" /> <referenceRange> <observationRange> <text>6.1-7.9</ text> </observationRange> </referenceRange> </ observation> </component> <component> <observation moodCode= "EVN" classCode="OBS"> <templateId root="840.1.713144.10...4.2 " /> <id nullFlavor="NA" /> <code codeSystem="local" code="NA " displayName="Sodium" /> <statusCode code="completed" /> < effectiveTime value="404291045369" /> <value unit="mEq/L" xsi:type="PQ " value="136" /> <referenceRange> <observationRange> <text>136-144</text> </observationRange> </ referenceRange> </observation> </component> </organizer> </entry > <entry> <organizer moodCode="EVN" classCode="BATTERY"> <templateId root="16.840.1.316020.10.20.22.4.1" /> <id nullFlavor="NA" /> <code codeSystem="local" code="GFR" displayName="eGFR" /> <statusCode code= "completed" /> <component> <observation moodCode="EVN" classCode= "OBS"> <templateId root="2.16.840.1.723469.10..22.4.2" /> < id nullFlavor="NA" /> <code codeSystem="local" code="GFR" displayName= "eGFR" /> <statusCode code="completed" /> <effectiveTime value ="748279656030" /> <value unit="mL/min" xsi:type="PQ" value=">60" / > <referenceRange> <observationRange> <text>&gt ;60</text> </observationRange> </referenceRange> </ observation> </component> </organizer> </entry> <entry> <organizer moodCode="EVN" classCode="BATTERY"> <templateId root= "2.16.840.1.074277.10..22.4.1" /> <id nullFlavor="NA" /> <code codeSystem="local" code="UDRGH" displayName="Urine Drug Screen" /> < statusCode code="completed" /> <component> <observation moodCode= "EVN" classCode="OBS"> <templateId root="2.16.840.1.666393.10..22.4.2 " /> <id nullFlavor="NA" /> <code codeSystem="local" code= "UTCA1" displayName="Tricyclics" /> <statusCode code="completed" /> <effectiveTime value="425502151458" /> <value unit="NA" xsi:type ="PQ" value="Not Detected" /> <referenceRange> < observationRange> <text /> </observationRange> </referenceRange> </observation> </component> </organizer> </ entry> <entry> <organizer moodCode="EVN" classCode="BATTERY"> < templateId root="216.840.1.151529.10..22.4.1" /> <id nullFlavor="NA" /> <code codeSystem="local" code="CBCWD" displayName="CBC With Platelet and Differential" /> <statusCode code="completed" /> <component> < observation moodCode="EVN" classCode="OBS"> <templateId root= "16.840.1.192838.07.02.22.4.2" /> <id nullFlavor="NA" /> < code codeSystem="local" code="ABASR" displayName="Absolute Basophils" /> <statusCode code="completed" /> <effectiveTime value="" /> <value unit="10*3/uL" xsi:type="PQ" value="0.03" /> < referenceRange> <observationRange> <text>0.00-0.20</text > </observationRange> </referenceRange> </observation > </component> <component> <observation moodCode="EVN" classCode="OBS"> <templateId root="216.840.1.433598.07.02.22.4.2" /> <id nullFlavor="NA" /> <code codeSystem="local" code="AEOSR" displayName="Absolute Eosinophils" /> <statusCode code="completed" /> <effectiveTime value="" /> <value unit="10*3/uL" xsi:type="PQ" value="1.27" /> <interpretationCode codeSystem="local" code="*" /> <referenceRange> <observationRange> <text>0.00-0.50</text> </observationRange> </ referenceRange> </observation> </component> <component> <observation moodCode="EVN" classCode="OBS"> <templateId root= "16.840.1.046282.07.02.22.4.2" /> <id nullFlavor="NA" /> < code codeSystem="local" code="ALYMR" displayName="Absolute Lymphocytes" /> <statusCode code="completed" /> <effectiveTime value="[id number] " /> <value unit="10*3/uL" xsi:type="PQ" value="2.56" /> < referenceRange> <observationRange> <text>0.80-3.30</text > </observationRange> </referenceRange> </observation > </component> <component> <observation moodCode="EVN" classCode="OBS"> <templateId root="10.29.840.1.893777.07.02.22.4.2" /> <id nullFlavor="NA" /> <code codeSystem="local" code="AMONR" displayName="Absolute Monocytes" /> <statusCode code="completed" /> <effectiveTime value="" /> <value unit="10*3/uL" xsi :type="PQ" value="0.77" /> <referenceRange> < observationRange> <text>0.30-1.00</text> </ observationRange> </referenceRange> </observation> </ component> <component> <observation moodCode="EVN" classCode="OBS"> <templateId root="10.29.840.1.608278.07.02.22.4.2" /> <id nullFlavor="NA" /> <code codeSystem="local" code="ASEGR" displayName= "Absolute Neutrophils" /> <statusCode code="completed" /> < effectiveTime value="[id number]" /> <value unit="10*3/uL" xsi:type= "PQ" value="2.13" /> <referenceRange> <observationRange> <text>1.90-7.00</text> </observationRange> </ referenceRange> </observation> </component> <component> <observation moodCode="EVN" classCode="OBS"> <templateId root= "216.840.1.301620.10.22.4.2" /> <id nullFlavor="NA" /> < code codeSystem="local" code="BASOR" displayName="Basophils" /> < statusCode code="completed" /> <effectiveTime value="" /> <value unit="%" xsi:type="PQ" value="0" /> <referenceRange > <observationRange> <text>0-2</text> </ observationRange> </referenceRange> </observation> </ component> <component> <observation moodCode="EVN" classCode="OBS"> <templateId root="216.840.1.376557.07.02.22.4.2" /> <id nullFlavor="NA" /> <code codeSystem="local" code="EOSR" displayName= "Eosinophils" /> <statusCode code="completed" /> < effectiveTime value="" /> <value unit="%" xsi:type="PQ " value="19" /> <interpretationCode codeSystem="local" code="*" /> <referenceRange> <observationRange> <text>0-4</ text> </observationRange> </referenceRange> </ observation> </component> <component> <observation moodCode= "EVN" classCode="OBS"> <templateId root="216.840.1.297538.10.22.4.2 " /> <id nullFlavor="NA" /> <code codeSystem="local" code="HCT " displayName="HCT" /> <statusCode code="completed" /> < effectiveTime value="" /> <value unit="%" xsi:type="PQ " value="37.9" /> <interpretationCode codeSystem="local" code="*" /> <referenceRange> <observationRange> <text>42.0- 52.0</text> </observationRange> </referenceRange> </ observation> </component> <component> <observation moodCode= "EVN" classCode="OBS"> <templateId root="216.840.1.497390.10.4.2 " /> <id nullFlavor="NA" /> <code codeSystem="local" code="HGB " displayName="HGB" /> <statusCode code="completed" /> < effectiveTime value="[id number]" /> <value unit="g/dL" xsi:type="PQ" value="12.4" /> <interpretationCode codeSystem="local" code="*" /> <referenceRange> <observationRange> <text>14.0- 18.0</text> </observationRange> </referenceRange> </ observation> </component> <component> <observation moodCode= "EVN" classCode="OBS"> <templateId root="216.840.1.158224.07.02.224.2 " /> <id nullFlavor="NA" /> <code codeSystem="local" code= "IMGA" displayName="Immature Granulocytes" /> <statusCode code= "completed" /> <effectiveTime value="[id number]" /> <value unit="%" xsi:type="PQ" value="0.4" /> <referenceRange> < observationRange> <text>0.0-1.0</text> </ observationRange> </referenceRange> </observation> </ component> <component> <observation moodCode="EVN" classCode="OBS"> <templateId root="216.840.1.730685.07.02.22.4.2" /> <id nullFlavor="NA" /> <code codeSystem="local" code="LYMPR" displayName= "Lymphocytes" /> <statusCode code="completed" /> < effectiveTime value="" /> <value unit="%" xsi:type="PQ " value="38" /> <referenceRange> <observationRange> <text>20-46</text> </observationRange> </ referenceRange> </observation> </component> <component> <observation moodCode="EVN" classCode="OBS"> <templateId root= "216.840.1.955153.07.02.22.4.2" /> <id nullFlavor="NA" /> < code codeSystem="local" code="MCH" displayName="MCH" /> <statusCode code="completed" /> <effectiveTime value="" /> < value unit="pg" xsi:type="PQ" value="29.7" /> <referenceRange> <observationRange> <text>27.0-32.0</text> </ observationRange> </referenceRange> </observation> </ component> <component> <observation moodCode="EVN" classCode="OBS"> <templateId root="216.840.1.941156.07.02.22.4.2" /> <id nullFlavor="NA" /> <code codeSystem="local" code="MCHC" displayName= "MCHC" /> <statusCode code="completed" /> <effectiveTime value ="" /> <value unit="g/dL" xsi:type="PQ" value="32.7" /> <referenceRange> <observationRange> <text>32.0- 36.0</text> </observationRange> </referenceRange> </ observation> </component> <component> <observation moodCode= "EVN" classCode="OBS"> <templateId root="16.840.1.405986.10.20.22.4.2 " /> <id nullFlavor="NA" /> <code codeSystem="local" code="MCV " displayName="MCV" /> <statusCode code="completed" /> < effectiveTime value="" /> <value unit="fL" xsi:type="PQ" value="90.7" /> <referenceRange> <observationRange> <text>82.0-99.0</text> </observationRange> </ referenceRange> </observation> </component> <component> <observation moodCode="EVN" classCode="OBS"> <templateId root= "10.29.840.1.750167.10.22.4.2" /> <id nullFlavor="NA" /> < code codeSystem="local" code="MONOR" displayName="Monocytes" /> < statusCode code="completed" /> <effectiveTime value="" /> <value unit="%" xsi:type="PQ" value="11" /> < referenceRange> <observationRange> <text>4-11</text> </observationRange> </referenceRange> </observation> </component> <component> <observation moodCode="EVN" classCode= "OBS"> <templateId root="10.29.840.1.848136.10.20.22.4.2" /> < id nullFlavor="NA" /> <code codeSystem="local" code="MPV" displayName= "MPV" /> <statusCode code="completed" /> <effectiveTime value= "" /> <value unit="fL" xsi:type="PQ" value="10.7" /> <referenceRange> <observationRange> <text>9.4-12.3</ text> </observationRange> </referenceRange> </ observation> </component> <component> <observation moodCode= "EVN" classCode="OBS"> <templateId root="216.840.1.367342.10.4.2 " /> <id nullFlavor="NA" /> <code codeSystem="local" code= "SEGR" displayName="Neutrophils" /> <statusCode code="completed" /> <effectiveTime value="" /> <value unit="%" xsi: type="PQ" value="32" /> <interpretationCode codeSystem="local" code="* " /> <referenceRange> <observationRange> <text> 51-75</text> </observationRange> </referenceRange> </ observation> </component> <component> <observation moodCode= "EVN" classCode="OBS"> <templateId root="10.29.840.1.046201.10.4.2 " /> <id nullFlavor="NA" /> <code codeSystem="local" code= "NRBCA" displayName="Nucleated RBC Automated" /> <statusCode code= "completed" /> <effectiveTime value="" /> <value unit="/100WBC" xsi:type="PQ" value="0.0" /> <referenceRange> <observationRange> <text /> </observationRange> </referenceRange> </observation> </component> <component> <observation moodCode="EVN" classCode="OBS"> <templateId root= "10.29.840.1.463610.10.4.2" /> <id nullFlavor="NA" /> < code codeSystem="local" code="PLT" displayName="Platelet Count" /> < statusCode code="completed" /> <effectiveTime value="" /> <value unit="K/uL" xsi:type="PQ" value="160" /> < referenceRange> <observationRange> <text>150-400</text> </observationRange> </referenceRange> </observation > </component> <component> <observation moodCode="EVN" classCode="OBS"> <templateId root="216.840.1.994108.10.22.4.2" /> <id nullFlavor="NA" /> <code codeSystem="local" code="RBC" displayName="RBC" /> <statusCode code="completed" /> < effectiveTime value="" /> <value unit="10*6/uL" xsi:type= "PQ" value="4.18" /> <interpretationCode codeSystem="local" code="*" / > <referenceRange> <observationRange> <text> 4.60-6.20</text> </observationRange> </referenceRange> </observation> </component> <component> <observation moodCode="EVN" classCode="OBS"> <templateId root= "216.840.1.349864..22.4.2" /> <id nullFlavor="NA" /> < code codeSystem="local" code="RDW" displayName="RDW" /> <statusCode code="completed" /> <effectiveTime value="" /> < value unit="%" xsi:type="PQ" value="14.8" /> <interpretationCode codeSystem="local" code="*" /> <referenceRange> < observationRange> <text>11.5-14.5</text> </ observationRange> </referenceRange> </observation> </ component> <component> <observation moodCode="EVN" classCode="OBS"> <templateId root="216.840.1.462890.10..22.4.2" /> <id nullFlavor="NA" /> <code codeSystem="local" code="WBCIR" displayName= "WBC" /> <statusCode code="completed" /> <effectiveTime value= "383389676809" /> <value unit="K/uL" xsi:type="PQ" value="6.8" /> <referenceRange> <observationRange> <text>4.8-10.8< /text> </observationRange> </referenceRange> </ observation> </component> </organizer> </entry> <entry> <organizer moodCode="EVN" classCode="BATTERY"> <templateId root= "16.840.1.731424.10..22.4.1" /> <id nullFlavor="NA" /> <code codeSystem="local" code="MG" displayName="Magnesium" /> <statusCode code= "completed" /> <component> <observation moodCode="EVN" classCode= "OBS"> <templateId root="16.840.1.583050...22.4.2" /> < id nullFlavor="NA" /> <code codeSystem="local" code="MG" displayName= "Magnesium" /> <statusCode code="completed" /> <effectiveTime value="283292247549" /> <value unit="mg/dL" xsi:type="PQ" value="1.9" / > <referenceRange> <observationRange> <text>1.8 -2.5</text> </observationRange> </referenceRange> </ observation> </component> </organizer> </entry> <entry> <organizer moodCode="EVN" classCode="BATTERY"> <templateId root= "16.840.1.850545.10..22.4.1" /> <id nullFlavor="NA" /> <code codeSystem="local" code="RENAL" displayName="Renal Function Panel" /> < statusCode code="completed" /> <component> <observation moodCode= "EVN" classCode="OBS"> <templateId root="10.29.840.1.271009.10..22.4.2 " /> <id nullFlavor="NA" /> <code codeSystem="local" code="ALB " displayName="Albumin" /> <statusCode code="completed" /> < effectiveTime value="" /> <value unit="g/dL" xsi:type="PQ" value="3.4" /> <interpretationCode codeSystem="local" code="*" /> <referenceRange> <observationRange> <text>3.5-4.8</ text> </observationRange> </referenceRange> </ observation> </component> <component> <observation moodCode= "EVN" classCode="OBS"> <templateId root="840.1.863943.07.02.22.4.2 " /> <id nullFlavor="NA" /> <code codeSystem="local" code= "AGAP" displayName="Anion Gap" /> <statusCode code="completed" /> <effectiveTime value="" /> <value unit="mEq/L" xsi: type="PQ" value="7" /> <referenceRange> <observationRange> <text>3-20</text> </observationRange> </ referenceRange> </observation> </component> <component> <observation moodCode="EVN" classCode="OBS"> <templateId root= "10.29.840.1.277529.10..22.4.2" /> <id nullFlavor="NA" /> < code codeSystem="local" code="BUN" displayName="BUN" /> <statusCode code="completed" /> <effectiveTime value="" /> < value unit="mg/dL" xsi:type="PQ" value="12" /> <referenceRange> <observationRange> <text>4-20</text> </ observationRange> </referenceRange> </observation> </ component> <component> <observation moodCode="EVN" classCode="OBS"> <templateId root="10.29.840.1.844340.102022.4.2" /> <id nullFlavor="NA" /> <code codeSystem="local" code="CA" displayName= "Calcium" /> <statusCode code="completed" /> <effectiveTime value="" /> <value unit="mg/dL" xsi:type="PQ" value="8.7" / > <referenceRange> <observationRange> <text>8.6 -10.0</text> </observationRange> </referenceRange> </ observation> </component> <component> <observation moodCode= "EVN" classCode="OBS"> <templateId root="10.29.840.1.226264.22.4.2 " /> <id nullFlavor="NA" /> <code codeSystem="local" code="CL " displayName="Chloride" /> <statusCode code="completed" /> < effectiveTime value="" /> <value unit="mEq/L" xsi:type="PQ " value="107" /> <referenceRange> <observationRange> <text>99-109</text> </observationRange> </ referenceRange> </observation> </component> <component> <observation moodCode="EVN" classCode="OBS"> <templateId root= "10.29.840.1.174589.10.2022.4.2" /> <id nullFlavor="NA" /> < code codeSystem="local" code="CO2" displayName="CO2" /> <statusCode code="completed" /> <effectiveTime value="" /> < value unit="mEq/L" xsi:type="PQ" value="24" /> <referenceRange> <observationRange> <text>22-32</text> </ observationRange> </referenceRange> </observation> </ component> <component> <observation moodCode="EVN" classCode="OBS"> <templateId root="216.840.1.874225.10.22.4.2" /> <id nullFlavor="NA" /> <code codeSystem="local" code="CREAT" displayName= "Creatinine" /> <statusCode code="completed" /> < effectiveTime value="" /> <value unit="mg/dL" xsi:type="PQ " value="0.92" /> <referenceRange> <observationRange> <text>0.64-1.27</text> </observationRange> </ referenceRange> </observation> </component> <component> <observation moodCode="EVN" classCode="OBS"> <templateId root= "16.840.1.949832...22.4.2" /> <id nullFlavor="NA" /> < code codeSystem="local" code="GLU" displayName="Glucose" /> < statusCode code="completed" /> <effectiveTime value="" /> <value unit="mg/dL" xsi:type="PQ" value="82" /> < referenceRange> <observationRange> <text>70-100</text> </observationRange> </referenceRange> </observation> </component> <component> <observation moodCode="EVN" classCode ="OBS"> <templateId root="10.29.840.1.489560.22.4.2" /> < id nullFlavor="NA" /> <code codeSystem="local" code="PHOS" displayName= "Phosphorus" /> <statusCode code="completed" /> < effectiveTime value="" /> <value unit="mg/dL" xsi:type="PQ " value="4.4" /> <referenceRange> <observationRange> <text>2.4-4.7</text> </observationRange> </ referenceRange> </observation> </component> <component> <observation moodCode="EVN" classCode="OBS"> <templateId root= "216.840.1.051258.10..22.4.2" /> <id nullFlavor="NA" /> < code codeSystem="local" code="K" displayName="Potassium" /> < statusCode code="completed" /> <effectiveTime value="" /> <value unit="mEq/L" xsi:type="PQ" value="4.6" /> < referenceRange> <observationRange> <text>3.6-5.1</text> </observationRange> </referenceRange> </observation > </component> <component> <observation moodCode="EVN" classCode="OBS"> <templateId root="216.840.1.829385.10..22.4.2" /> <id nullFlavor="NA" /> <code codeSystem="local" code="NA" displayName="Sodium" /> <statusCode code="completed" /> < effectiveTime value="" /> <value unit="mEq/L" xsi:type="PQ " value="138" /> <referenceRange> <observationRange> <text>136-144</text> </observationRange> </ referenceRange> </observation> </component> </organizer> </entry > <entry> <organizer moodCode="EVN" classCode="BATTERY"> <templateId root="10.29.840.1.816691.10..4.1" /> <id nullFlavor="NA" /> <code codeSystem="local" code="GFR" displayName="eGFR" /> <statusCode code= "completed" /> <component> <observation moodCode="EVN" classCode= "OBS"> <templateId root="840.1.095436.07.02.22.4.2" /> < id nullFlavor="NA" /> <code codeSystem="local" code="GFR" displayName= "eGFR" /> <statusCode code="completed" /> <effectiveTime value ="929385360492" /> <value unit="mL/min" xsi:type="PQ" value=">60" / > <referenceRange> <observationRange> <text>&gt ;60</text> </observationRange> </referenceRange> </ observation> </component> </organizer> </entry> <entry> <organizer moodCode="EVN" classCode="BATTERY"> <templateId root= "840.1.626905.07.02.22.4.1" /> <id nullFlavor="NA" /> <code codeSystem="local" code="BNP" displayName="B-TYPE NATRIURETIC PEPTIDE" /> < statusCode code="completed" /> <component> <observation moodCode= "EVN" classCode="OBS"> <templateId root="840.1.434605.07.02.22.4.2 " /> <id nullFlavor="NA" /> <code codeSystem="local" code="BNP " displayName="B-TYPE NATRIURETIC PEPTIDE" /> <statusCode code= "completed" /> <effectiveTime value="633711427156" /> <value unit="pg/mL" xsi:type="PQ" value="1119" /> <interpretationCode codeSystem="local" code="*" /> <referenceRange> < observationRange> <text>< 100</text> </ observationRange> </referenceRange> </observation> </ component> </organizer> </entry> <entry> <organizer moodCode="EVN" classCode="BATTERY"> <templateId root="10.29.840.1.028301.10.4.1" /> <id nullFlavor="NA" /> <code codeSystem="local" code="CBCD" displayName="CBC W/DIFF" /> <statusCode code="completed" /> <component > <observation moodCode="EVN" classCode="OBS"> <templateId root= "10.29.840.1.430076.07.02.22.4.2" /> <id nullFlavor="NA" /> < code codeSystem="local" code="BA#" displayName="BASOPHIL #" /> < statusCode code="completed" /> <effectiveTime value="" /> <value unit="k/cumm" xsi:type="PQ" value="0.0" /> < referenceRange> <observationRange> <text>0.0-0.2</text> </observationRange> </referenceRange> </observation > </component> <component> <observation moodCode="EVN" classCode="OBS"> <templateId root="10.29.840.1.342616.07.02.22.4.2" /> <id nullFlavor="NA" /> <code codeSystem="local" code="BA% " displayName="BASOPHIL %" /> <statusCode code="completed" /> <effectiveTime value="442448076353" /> <value unit="%" xsi: type="PQ" value="0.7" /> <referenceRange> <observationRange > <text>0-1</text> </observationRange> </ referenceRange> </observation> </component> <component> <observation moodCode="EVN" classCode="OBS"> <templateId root= "216.840.1.064920.10.22.4.2" /> <id nullFlavor="NA" /> < code codeSystem="local" code="EO#" displayName="EOSINOPHIL #" /> < statusCode code="completed" /> <effectiveTime value="049240760622" /> <value unit="k/cumm" xsi:type="PQ" value="1.0" /> < interpretationCode codeSystem="local" code="*" /> <referenceRange> <observationRange> <text>0.1-0.5</text> </ observationRange> </referenceRange> </observation> </ component> <component> <observation moodCode="EVN" classCode="OBS"> <templateId root="2.840.1.991951.07.02.22.4.2" /> <id nullFlavor="NA" /> <code codeSystem="local" code="EO%" displayName= "EOSINOPHIL %" /> <statusCode code="completed" /> < effectiveTime value="381709160187" /> <value unit="%" xsi:type="PQ " value="17.4" /> <interpretationCode codeSystem="local" code="*" /> <referenceRange> <observationRange> <text>2-4</ text> </observationRange> </referenceRange> </ observation> </component> <component> <observation moodCode= "EVN" classCode="OBS"> <templateId root="2.840.1.751901.07.02.224.2 " /> <id nullFlavor="NA" /> <code codeSystem="local" code="GR# " displayName="GRANULOCYTE #" /> <statusCode code="completed" /> <effectiveTime value="" /> <value unit="k/cumm" xsi: type="PQ" value="2.4" /> <referenceRange> <observationRange > <text>2.0-9.0</text> </observationRange> </ referenceRange> </observation> </component> <component> <observation moodCode="EVN" classCode="OBS"> <templateId root= "216.840.1.326442.07.02.224.2" /> <id nullFlavor="NA" /> < code codeSystem="local" code="GR%" displayName="GRANULOCYTE %" /> <statusCode code="completed" /> <effectiveTime value=" " /> <value unit="%" xsi:type="PQ" value="41.8" /> < interpretationCode codeSystem="local" code="*" /> <referenceRange> <observationRange> <text>50-75</text> </ observationRange> </referenceRange> </observation> </ component> <component> <observation moodCode="EVN" classCode="OBS"> <templateId root="16.840.1.322174.07.02.224.2" /> <id nullFlavor="NA" /> <code codeSystem="local" code="LY#" displayName= "LYMPHOCYTE #" /> <statusCode code="completed" /> < effectiveTime value="361689834612" /> <value unit="k/cumm" xsi:type="PQ " value="1.6" /> <referenceRange> <observationRange> <text>1.0-4.0</text> </observationRange> </ referenceRange> </observation> </component> <component> <observation moodCode="EVN" classCode="OBS"> <templateId root= "2.16.840.1.735534.10.4.2" /> <id nullFlavor="NA" /> < code codeSystem="local" code="LY%" displayName="LYMPHOCYTE %" /> <statusCode code="completed" /> <effectiveTime value="" /> <value unit="%" xsi:type="PQ" value="27.7" /> < referenceRange> <observationRange> <text>20-30</text> </observationRange> </referenceRange> </observation> </component> <component> <observation moodCode="EVN" classCode= "OBS"> <templateId root="216.840.1.825273.10.4.2" /> < id nullFlavor="NA" /> <code codeSystem="local" code="MCH" displayName= "MEAN CELL HGB" /> <statusCode code="completed" /> < effectiveTime value="" /> <value unit="pg" xsi:type="PQ" value="29.1" /> <referenceRange> <observationRange> <text>27.0-33.0</text> </observationRange> </ referenceRange> </observation> </component> <component> <observation moodCode="EVN" classCode="OBS"> <templateId root= "216.840.1.665609.10.4.2" /> <id nullFlavor="NA" /> < code codeSystem="local" code="MCHC" displayName="MEAN CELL HGB CONCENTRATION" / > <statusCode code="completed" /> <effectiveTime value= "761383298002" /> <value unit="g/dL" xsi:type="PQ" value="33.0" /> <referenceRange> <observationRange> <text>32.0- 37.0</text> </observationRange> </referenceRange> </ observation> </component> <component> <observation moodCode= "EVN" classCode="OBS"> <templateId root="10.29.840.1.400126.10..22.4.2 " /> <id nullFlavor="NA" /> <code codeSystem="local" code="MCV " displayName="MEAN CELL VOLUME" /> <statusCode code="completed" /> <effectiveTime value="627241212822" /> <value unit="fl" xsi:type ="PQ" value="88.1" /> <referenceRange> <observationRange> <text>80.0-100.0</text> </observationRange> </ referenceRange> </observation> </component> <component> <observation moodCode="EVN" classCode="OBS"> <templateId root= "840.1.706000.07.02.22.4.2" /> <id nullFlavor="NA" /> < code codeSystem="local" code="MO#" displayName="MONOCYTE #" /> < statusCode code="completed" /> <effectiveTime value="" /> <value unit="k/cumm" xsi:type="PQ" value="0.7" /> < referenceRange> <observationRange> <text>0.1-1.0</text> </observationRange> </referenceRange> </observation > </component> <component> <observation moodCode="EVN" classCode="OBS"> <templateId root="10.29.840.1.479565.10..22.4.2" /> <id nullFlavor="NA" /> <code codeSystem="local" code="MO% " displayName="MONOCYTE %" /> <statusCode code="completed" /> <effectiveTime value="" /> <value unit="%" xsi: type="PQ" value="11.7" /> <interpretationCode codeSystem="local" code= "*" /> <referenceRange> <observationRange> < text>4-6</text> </observationRange> </referenceRange> </observation> </component> <component> <observation moodCode ="EVN" classCode="OBS"> <templateId root= "2.16.840.1.284375.10..22.4.2" /> <id nullFlavor="NA" /> < code codeSystem="local" code="MPVT" displayName="MEAN PLATELET VOLUME" /> <statusCode code="completed" /> <effectiveTime value=" " /> <value unit="fl" xsi:type="PQ" value="11.0" /> < interpretationCode codeSystem="local" code="*" /> <referenceRange> <observationRange> <text>8.5-10.9</text> </ observationRange> </referenceRange> </observation> </ component> <component> <observation moodCode="EVN" classCode="OBS"> <templateId root="2.16.840.1.541542.10.20.22.4.2" /> <id nullFlavor="NA" /> <code codeSystem="local" code="RBC" displayName=" RED BLOOD CELL" /> <statusCode code="completed" /> < effectiveTime value="601756526590" /> <value unit="m/cumm" xsi:type="PQ " value="4.47" /> <referenceRange> <observationRange> <text>4.00-6.00</text> </observationRange> </ referenceRange> </observation> </component> <component> <observation moodCode="EVN" classCode="OBS"> <templateId root= "216.840.1.524151.10..22.4.2" /> <id nullFlavor="NA" /> < code codeSystem="local" code="RDW" displayName="RED CELL DISTRIBUTION WIDTH" /> <statusCode code="completed" /> <effectiveTime value= "" /> <value unit="%" xsi:type="PQ" value="15.0" /> <referenceRange> <observationRange> <text>11.0- 15.6</text> </observationRange> </referenceRange> </ observation> </component> <component> <observation moodCode= "EVN" classCode="OBS"> <templateId root="216.840.1.112172.07.02.22.4.2 " /> <id nullFlavor="NA" /> <code codeSystem="local" code="WBC " displayName="WHITE BLOOD CELL" /> <statusCode code="completed" /> <effectiveTime value="" /> <value unit="k/cumm" xsi: type="PQ" value="5.8" /> <referenceRange> <observationRange > <text>5.0-10.0</text> </observationRange> </ referenceRange> </observation> </component> <component> <observation moodCode="EVN" classCode="OBS"> <templateId root= "216.840.1.886513.10..22.4.2" /> <id nullFlavor="NA" /> < code codeSystem="local" code="HGBT" displayName="HEMOGLOBIN" /> < statusCode code="completed" /> <effectiveTime value="" /> <value unit="gm/dL" xsi:type="PQ" value="13.0" /> < interpretationCode codeSystem="local" code="*" /> <referenceRange> <observationRange> <text>14.0-18.0</text> </ observationRange> </referenceRange> </observation> </ component> <component> <observation moodCode="EVN" classCode="OBS"> <templateId root="216.840.1.109859.22.4.2" /> <id nullFlavor="NA" /> <code codeSystem="local" code="HCTT" displayName= "HEMATOCRIT" /> <statusCode code="completed" /> < effectiveTime value="[id number]" /> <value unit="%" xsi:type="PQ " value="39.4" /> <interpretationCode codeSystem="local" code="*" /> <referenceRange> <observationRange> <text>40.0- 54.0</text> </observationRange> </referenceRange> </ observation> </component> <component> <observation moodCode= "EVN" classCode="OBS"> <templateId root="216.840.1.400289.07.02.22.4.2 " /> <id nullFlavor="NA" /> <code codeSystem="local" code= "NRBC%" displayName="NRBC %" /> <statusCode code="completed" / > <effectiveTime value="[id number]" /> <value unit="/100WBC " xsi:type="PQ" value="0.0" /> <referenceRange> < observationRange> <text>0.0-0.0</text> </ observationRange> </referenceRange> </observation> </ component> <component> <observation moodCode="EVN" classCode="OBS"> <templateId root="2.16.840.1.888336.07.02.22.4.2" /> <id nullFlavor="NA" /> <code codeSystem="local" code="PLTT" displayName= "PLATELET COUNT" /> <statusCode code="completed" /> < effectiveTime value="903362097437" /> <value unit="k/cumm" xsi:type="PQ " value="105" /> <interpretationCode codeSystem="local" code="*" /> <referenceRange> <observationRange> <text>150-400 </text> </observationRange> </referenceRange> </ observation> </component> <component> <observation moodCode= "EVN" classCode="OBS"> <templateId root="16.840.1.022323.07.02.22.4.2 " /> <id nullFlavor="NA" /> <code codeSystem="local" code="IG& #37;" displayName="IMMATURE GRANULOCYTE %" /> <statusCode code= "completed" /> <effectiveTime value="910396468113" /> <value unit="%" xsi:type="PQ" value="0.7" /> <interpretationCode codeSystem="local" code="*" /> <referenceRange> < observationRange> <text>0.0-0.6</text> </ observationRange> </referenceRange> </observation> </ component> <component> <observation moodCode="EVN" classCode="OBS"> <templateId root="10.29.840.1.344927.10..4.2" /> <id nullFlavor="NA" /> <code codeSystem="local" code="IG#" displayName= "IMMATURE GRANULOCYTE #" /> <statusCode code="completed" /> < effectiveTime value="155074992665" /> <value unit="k/cumm" xsi:type="PQ " value="0.04" /> <referenceRange> <observationRange> <text>0.00-0.09</text> </observationRange> </ referenceRange> </observation> </component> <component> <observation moodCode="EVN" classCode="OBS"> <templateId root= "10.29.840.1.993887.10.2022.4.2" /> <id nullFlavor="NA" /> < code codeSystem="local" code="IPFT" displayName="IMMATURE PLATELET FRACTION" /> <statusCode code="completed" /> <effectiveTime value= "671790194440" /> <value unit="%" xsi:type="PQ" value="5.6" /> <referenceRange> <observationRange> <text>1.1-6.1< /text> </observationRange> </referenceRange> </ observation> </component> </organizer> </entry> <entry> <organizer moodCode="EVN" classCode="BATTERY"> <templateId root= "10.29.840.1.068150.10.20.22.4.1" /> <id nullFlavor="NA" /> <code codeSystem="local" code="METABC" displayName="METABOLIC PANEL, COMPREHN" /> <statusCode code="completed" /> <component> <observation moodCode= "EVN" classCode="OBS"> <templateId root="10.29.840.1.965525.10.20.22.4.2 " /> <id nullFlavor="NA" /> <code codeSystem="local" code="K" displayName="POTASSIUM" /> <statusCode code="completed" /> < effectiveTime value="244733107289" /> <value unit="mmol/L" xsi:type="PQ " value="3.8" /> <referenceRange> <observationRange> <text>3.5-5.3</text> </observationRange> </ referenceRange> </observation> </component> <component> <observation moodCode="EVN" classCode="OBS"> <templateId root= "216.840.1.867351.10..4.2" /> <id nullFlavor="NA" /> < code codeSystem="local" code="eGFR" displayName="EST GFR (MDRD)" /> < statusCode code="completed" /> <effectiveTime value="" /> <value unit="mL/min" xsi:type="PQ" value="> 60" /> < referenceRange> <observationRange> <text>> 59</text> </observationRange> </referenceRange> </observation > </component> <component> <observation moodCode="EVN" classCode="OBS"> <templateId root="10.29.840.1.402689.07.02.22.4.2" /> <id nullFlavor="NA" /> <code codeSystem="local" code="GAP" displayName="ANION GAP" /> <statusCode code="completed" /> < effectiveTime value="" /> <value unit="mmol/L" xsi:type="PQ " value="13" /> <referenceRange> <observationRange> <text>5-15</text> </observationRange> </referenceRange > </observation> </component> <component> <observation moodCode="EVN" classCode="OBS"> <templateId root= "216.840.1.360117.10..4.2" /> <id nullFlavor="NA" /> < code codeSystem="local" code="eCrCl" displayName="EST CrCl (CG)" /> < statusCode code="completed" /> <effectiveTime value="" /> <value unit="mL/min" xsi:type="PQ" value="> 60" /> < referenceRange> <observationRange> <text>> 59</text> </observationRange> </referenceRange> </observation > </component> <component> <observation moodCode="EVN" classCode="OBS"> <templateId root="10.29.840.1.358170.10.20.22.4.2" /> <id nullFlavor="NA" /> <code codeSystem="local" code="GLU" displayName="GLUCOSE" /> <statusCode code="completed" /> < effectiveTime value="858955551962" /> <value unit="mg/dL" xsi:type="PQ " value="109" /> <interpretationCode codeSystem="local" code="*" /> <referenceRange> <observationRange> <text>70-99</ text> </observationRange> </referenceRange> </ observation> </component> <component> <observation moodCode= "EVN" classCode="OBS"> <templateId root="10.29.840.1.913251...4.2 " /> <id nullFlavor="NA" /> <code codeSystem="local" code="CA " displayName="CALCIUM" /> <statusCode code="completed" /> < effectiveTime value="398792536567" /> <value unit="mg/dL" xsi:type="PQ " value="8.3" /> <interpretationCode codeSystem="local" code="*" /> <referenceRange> <observationRange> <text>8.5- 10.1</text> </observationRange> </referenceRange> </ observation> </component> <component> <observation moodCode= "EVN" classCode="OBS"> <templateId root="10.29.840.1.034607.10..22.4.2 " /> <id nullFlavor="NA" /> <code codeSystem="local" code="BUN " displayName="BLOOD UREA NITROGEN" /> <statusCode code="completed" /> <effectiveTime value="738309594635" /> <value unit="mg/dL" xsi:type="PQ" value="14" /> <referenceRange> < observationRange> <text>7-20</text> </observationRange> </referenceRange> </observation> </component> < component> <observation moodCode="EVN" classCode="OBS"> < templateId root="2.16.840.1.368423.10..22.4.2" /> <id nullFlavor="NA " /> <code codeSystem="local" code="CREAT" displayName="CREATININE" /> <statusCode code="completed" /> <effectiveTime value= "638810615465" /> <value unit="mg/dL" xsi:type="PQ" value="1.0" /> <referenceRange> <observationRange> <text>0.7-1.3< /text> </observationRange> </referenceRange> </ observation> </component> <component> <observation moodCode= "EVN" classCode="OBS"> <templateId root="2.16.840.1.839617.10..22.4.2 " /> <id nullFlavor="NA" /> <code codeSystem="local" code="NA " displayName="SODIUM" /> <statusCode code="completed" /> < effectiveTime value="671498432606" /> <value unit="mmol/L" xsi:type="PQ " value="144" /> <referenceRange> <observationRange> <text>135-148</text> </observationRange> </ referenceRange> </observation> </component> <component> <observation moodCode="EVN" classCode="OBS"> <templateId root= "216.840.1.763648.10.22.4.2" /> <id nullFlavor="NA" /> < code codeSystem="local" code="CL" displayName="CHLORIDE" /> < statusCode code="completed" /> <effectiveTime value="841132649001" /> <value unit="mmol/L" xsi:type="PQ" value="107" /> < referenceRange> <observationRange> <text>98-110</text> </observationRange> </referenceRange> </observation> </component> <component> <observation moodCode="EVN" classCode ="OBS"> <templateId root="216.840.1.406897.10..4.2" /> < id nullFlavor="NA" /> <code codeSystem="local" code="AST" displayName= "AST/SGOT" /> <statusCode code="completed" /> <effectiveTime value="445123005836" /> <value unit="Units/L" xsi:type="PQ" value="68" /> <interpretationCode codeSystem="local" code="*" /> < referenceRange> <observationRange> <text>10-37</text> </observationRange> </referenceRange> </observation> </component> <component> <observation moodCode="EVN" classCode= "OBS"> <templateId root="10.29.840.1.676687.10...4.2" /> < id nullFlavor="NA" /> <code codeSystem="local" code="ALT" displayName= "ALT/SGPT" /> <statusCode code="completed" /> <effectiveTime value="724238256321" /> <value unit="Units/L" xsi:type="PQ" value="62" /> <referenceRange> <observationRange> <text>& lt; 66</text> </observationRange> </referenceRange> < /observation> </component> <component> <observation moodCode= "EVN" classCode="OBS"> <templateId root="216.840.1.377654.10..4.2 " /> <id nullFlavor="NA" /> <code codeSystem="local" code="CO2 " displayName="CARBON DIOXIDE" /> <statusCode code="completed" /> <effectiveTime value="" /> <value unit="mmol/L" xsi: type="PQ" value="24" /> <referenceRange> <observationRange> <text>21-32</text> </observationRange> </ referenceRange> </observation> </component> <component> <observation moodCode="EVN" classCode="OBS"> <templateId root= "10.29.840.1.813547.07.02.22.4.2" /> <id nullFlavor="NA" /> < code codeSystem="local" code="TP" displayName="TOTAL PROTEIN" /> < statusCode code="completed" /> <effectiveTime value="" /> <value unit="gm/dL" xsi:type="PQ" value="7.1" /> < referenceRange> <observationRange> <text>6.4-8.2</text> </observationRange> </referenceRange> </observation > </component> <component> <observation moodCode="EVN" classCode="OBS"> <templateId root="16.840.1.359313.22.4.2" /> <id nullFlavor="NA" /> <code codeSystem="local" code="ALB" displayName="ALBUMIN" /> <statusCode code="completed" /> < effectiveTime value="" /> <value unit="gm/dL" xsi:type="PQ " value="3.1" /> <interpretationCode codeSystem="local" code="*" /> <referenceRange> <observationRange> <text>3.4-5.0 </text> </observationRange> </referenceRange> </ observation> </component> <component> <observation moodCode= "EVN" classCode="OBS"> <templateId root="2.16.840.1.129568.07.02.22.4.2 " /> <id nullFlavor="NA" /> <code codeSystem="local" code= "BILTOT" displayName="BILI TOTAL" /> <statusCode code="completed" /> <effectiveTime value="695258423775" /> <value unit="mg/dL" xsi: type="PQ" value="0.6" /> <referenceRange> <observationRange > <text>0.0-1.0</text> </observationRange> </ referenceRange> </observation> </component> <component> <observation moodCode="EVN" classCode="OBS"> <templateId root= "2.16.840.1.343627.07.02.22.4.2" /> <id nullFlavor="NA" /> < code codeSystem="local" code="ALKP" displayName="ALKALINE PHOSPHATASE TOTAL" /> <statusCode code="completed" /> <effectiveTime value= "072338652121" /> <value unit="IU/L" xsi:type="PQ" value="143" /> <interpretationCode codeSystem="local" code="*" /> <referenceRange > <observationRange> <text>45-117</text> </ observationRange> </referenceRange> </observation> </ component> </organizer> </entry> <entry> <organizer moodCode="EVN" classCode="BATTERY"> <templateId root="2.16840.1.590237.07.02.22.4.1" /> <id nullFlavor="NA" /> <code codeSystem="local" code="LACTG" displayName="LACTIC ACID" /> <statusCode code="completed" /> < component> <observation moodCode="EVN" classCode="OBS"> < templateId root="840.1.260428.07.02.22.4.2" /> <id nullFlavor="NA " /> <code codeSystem="local" code="LACT" displayName="LACTIC ACID" /> <statusCode code="completed" /> <effectiveTime value= "" /> <value unit="mmol/L" xsi:type="PQ" value="2.5" /> <interpretationCode codeSystem="local" code="*" /> < referenceRange> <observationRange> <text>0.5-2.0</text> </observationRange> </referenceRange> </observation > </component> </organizer> </entry> <entry> <organizer moodCode= "EVN" classCode="BATTERY"> <templateId root="840.1.291754.07.02.22.4.1 " /> <id nullFlavor="NA" /> <code codeSystem="local" code="CBCD" displayName="CBC W/DIFF" /> <statusCode code="completed" /> <component > <observation moodCode="EVN" classCode="OBS"> <templateId root= "840.1.017668.07.02.22.4.2" /> <id nullFlavor="NA" /> < code codeSystem="local" code="BA#" displayName="BASOPHIL #" /> < statusCode code="completed" /> <effectiveTime value="" /> <value unit="k/cumm" xsi:type="PQ" value="0.0" /> < referenceRange> <observationRange> <text>0.0-0.2</text> </observationRange> </referenceRange> </observation > </component> <component> <observation moodCode="EVN" classCode="OBS"> <templateId root="10.29.840.1.741842.10.20.22.4.2" /> <id nullFlavor="NA" /> <code codeSystem="local" code="BA% " displayName="BASOPHIL %" /> <statusCode code="completed" /> <effectiveTime value="" /> <value unit="%" xsi: type="PQ" value="0.4" /> <referenceRange> <observationRange > <text>0-1</text> </observationRange> </ referenceRange> </observation> </component> <component> <observation moodCode="EVN" classCode="OBS"> <templateId root= "10.29.840.1.524999.10..4.2" /> <id nullFlavor="NA" /> < code codeSystem="local" code="EO#" displayName="EOSINOPHIL #" /> < statusCode code="completed" /> <effectiveTime value="816595844909" /> <value unit="k/cumm" xsi:type="PQ" value="1.2" /> < interpretationCode codeSystem="local" code="*" /> <referenceRange> <observationRange> <text>0.1-0.5</text> </ observationRange> </referenceRange> </observation> </ component> <component> <observation moodCode="EVN" classCode="OBS"> <templateId root="10.29.840.1.031380.10..22.4.2" /> <id nullFlavor="NA" /> <code codeSystem="local" code="EO%" displayName= "EOSINOPHIL %" /> <statusCode code="completed" /> < effectiveTime value="" /> <value unit="%" xsi:type="PQ " value="12.9" /> <interpretationCode codeSystem="local" code="*" /> <referenceRange> <observationRange> <text>2-4</ text> </observationRange> </referenceRange> </ observation> </component> <component> <observation moodCode= "EVN" classCode="OBS"> <templateId root="2.16.840.1.389167.10..4.2 " /> <id nullFlavor="NA" /> <code codeSystem="local" code="GR# " displayName="GRANULOCYTE #" /> <statusCode code="completed" /> <effectiveTime value="" /> <value unit="k/cumm" xsi: type="PQ" value="5.9" /> <referenceRange> <observationRange > <text>2.0-9.0</text> </observationRange> </ referenceRange> </observation> </component> <component> <observation moodCode="EVN" classCode="OBS"> <templateId root= "2.16.840.1.138684.10.2022.4.2" /> <id nullFlavor="NA" /> < code codeSystem="local" code="GR%" displayName="GRANULOCYTE %" /> <statusCode code="completed" /> <effectiveTime value=" " /> <value unit="%" xsi:type="PQ" value="66.0" /> < referenceRange> <observationRange> <text>50-75</text> </observationRange> </referenceRange> </observation> </component> <component> <observation moodCode="EVN" classCode= "OBS"> <templateId root="216.840.1.735850.10..4.2" /> < id nullFlavor="NA" /> <code codeSystem="local" code="LY#" displayName= "LYMPHOCYTE #" /> <statusCode code="completed" /> < effectiveTime value="" /> <value unit="k/cumm" xsi:type="PQ " value="1.3" /> <referenceRange> <observationRange> <text>1.0-4.0</text> </observationRange> </ referenceRange> </observation> </component> <component> <observation moodCode="EVN" classCode="OBS"> <templateId root= "10.29.840.1.300154.07.02.224.2" /> <id nullFlavor="NA" /> < code codeSystem="local" code="LY%" displayName="LYMPHOCYTE %" /> <statusCode code="completed" /> <effectiveTime value="" /> <value unit="%" xsi:type="PQ" value="14.4" /> < interpretationCode codeSystem="local" code="*" /> <referenceRange> <observationRange> <text>20-30</text> </ observationRange> </referenceRange> </observation> </ component> <component> <observation moodCode="EVN" classCode="OBS"> <templateId root="10.29.840.1.851944.104.2" /> <id nullFlavor="NA" /> <code codeSystem="local" code="MCH" displayName= "MEAN CELL HGB" /> <statusCode code="completed" /> < effectiveTime value="" /> <value unit="pg" xsi:type="PQ" value="28.8" /> <referenceRange> <observationRange> <text>27.0-33.0</text> </observationRange> </ referenceRange> </observation> </component> <component> <observation moodCode="EVN" classCode="OBS"> <templateId root= "216.840.1.732858.10..22.4.2" /> <id nullFlavor="NA" /> < code codeSystem="local" code="MCHC" displayName="MEAN CELL HGB CONCENTRATION" / > <statusCode code="completed" /> <effectiveTime value= "" /> <value unit="g/dL" xsi:type="PQ" value="32.1" /> <referenceRange> <observationRange> <text>32.0- 37.0</text> </observationRange> </referenceRange> </ observation> </component> <component> <observation moodCode= "EVN" classCode="OBS"> <templateId root="10.29.840.1.688314.10...4.2 " /> <id nullFlavor="NA" /> <code codeSystem="local" code="MCV " displayName="MEAN CELL VOLUME" /> <statusCode code="completed" /> <effectiveTime value="" /> <value unit="fl" xsi:type ="PQ" value="89.7" /> <referenceRange> <observationRange> <text>80.0-100.0</text> </observationRange> </ referenceRange> </observation> </component> <component> <observation moodCode="EVN" classCode="OBS"> <templateId root= "216.840.1.950928.10..22.4.2" /> <id nullFlavor="NA" /> < code codeSystem="local" code="MO#" displayName="MONOCYTE #" /> < statusCode code="completed" /> <effectiveTime value="" /> <value unit="k/cumm" xsi:type="PQ" value="0.5" /> < referenceRange> <observationRange> <text>0.1-1.0</text> </observationRange> </referenceRange> </observation > </component> <component> <observation moodCode="EVN" classCode="OBS"> <templateId root="2.16.840.1.875944.10...4.2" /> <id nullFlavor="NA" /> <code codeSystem="local" code="MO% " displayName="MONOCYTE %" /> <statusCode code="completed" /> <effectiveTime value="" /> <value unit="%" xsi: type="PQ" value="5.6" /> <referenceRange> <observationRange > <text>4-6</text> </observationRange> </ referenceRange> </observation> </component> <component> <observation moodCode="EVN" classCode="OBS"> <templateId root= "2.16.840.1.662655.10...4.2" /> <id nullFlavor="NA" /> < code codeSystem="local" code="MPVT" displayName="MEAN PLATELET VOLUME" /> <statusCode code="completed" /> <effectiveTime value=" " /> <value unit="fl" xsi:type="PQ" value="11.5" /> < interpretationCode codeSystem="local" code="*" /> <referenceRange> <observationRange> <text>8.5-10.9</text> </ observationRange> </referenceRange> </observation> </ component> <component> <observation moodCode="EVN" classCode="OBS"> <templateId root="216.840.1.550005.10...4.2" /> <id nullFlavor="NA" /> <code codeSystem="local" code="RBC" displayName=" RED BLOOD CELL" /> <statusCode code="completed" /> < effectiveTime value="" /> <value unit="m/cumm" xsi:type="PQ " value="4.45" /> <referenceRange> <observationRange> <text>4.00-6.00</text> </observationRange> </ referenceRange> </observation> </component> <component> <observation moodCode="EVN" classCode="OBS"> <templateId root= "216.840.1.417705.07.02.22.4.2" /> <id nullFlavor="NA" /> < code codeSystem="local" code="RDW" displayName="RED CELL DISTRIBUTION WIDTH" /> <statusCode code="completed" /> <effectiveTime value= "" /> <value unit="%" xsi:type="PQ" value="15.4" /> <referenceRange> <observationRange> <text>11.0- 15.6</text> </observationRange> </referenceRange> </ observation> </component> <component> <observation moodCode= "EVN" classCode="OBS"> <templateId root="16.840.1.083326.10...4.2 " /> <id nullFlavor="NA" /> <code codeSystem="local" code="WBC " displayName="WHITE BLOOD CELL" /> <statusCode code="completed" /> <effectiveTime value="" /> <value unit="k/cumm" xsi: type="PQ" value="8.9" /> <referenceRange> <observationRange > <text>5.0-10.0</text> </observationRange> </ referenceRange> </observation> </component> <component> <observation moodCode="EVN" classCode="OBS"> <templateId root= "216.840.1.694288.10...4.2" /> <id nullFlavor="NA" /> < code codeSystem="local" code="HGBT" displayName="HEMOGLOBIN" /> < statusCode code="completed" /> <effectiveTime value="260640217179" /> <value unit="gm/dL" xsi:type="PQ" value="12.8" /> < interpretationCode codeSystem="local" code="*" /> <referenceRange> <observationRange> <text>14.0-18.0</text> </ observationRange> </referenceRange> </observation> </ component> <component> <observation moodCode="EVN" classCode="OBS"> <templateId root="10.29.840.1.674695.10...4.2" /> <id nullFlavor="NA" /> <code codeSystem="local" code="HCTT" displayName= "HEMATOCRIT" /> <statusCode code="completed" /> < effectiveTime value="164357280293" /> <value unit="%" xsi:type="PQ " value="39.9" /> <interpretationCode codeSystem="local" code="*" /> <referenceRange> <observationRange> <text>40.0- 54.0</text> </observationRange> </referenceRange> </ observation> </component> <component> <observation moodCode= "EVN" classCode="OBS"> <templateId root="216.840.1.806905.4.2 " /> <id nullFlavor="NA" /> <code codeSystem="local" code= "NRBC%" displayName="NRBC %" /> <statusCode code="completed" / > <effectiveTime value="" /> <value unit="/100WBC " xsi:type="PQ" value="0.2" /> <interpretationCode codeSystem="local" code="*" /> <referenceRange> <observationRange> <text>0.0-0.0</text> </observationRange> </referenceRange > </observation> </component> <component> <observation moodCode="EVN" classCode="OBS"> <templateId root= "216.840.1.546780.07.02.224.2" /> <id nullFlavor="NA" /> < code codeSystem="local" code="PLTT" displayName="PLATELET COUNT" /> < statusCode code="completed" /> <effectiveTime value="" /> <value unit="k/cumm" xsi:type="PQ" value="126" /> < interpretationCode codeSystem="local" code="*" /> <referenceRange> <observationRange> <text>150-400</text> </ observationRange> </referenceRange> </observation> </ component> <component> <observation moodCode="EVN" classCode="OBS"> <templateId root="16.840.1.059995.104.2" /> <id nullFlavor="NA" /> <code codeSystem="local" code="IG%" displayName= "IMMATURE GRANULOCYTE %" /> <statusCode code="completed" /> <effectiveTime value="" /> <value unit="%" xsi:type= "PQ" value="0.7" /> <interpretationCode codeSystem="local" code="*" /> <referenceRange> <observationRange> <text>0.0- 0.6</text> </observationRange> </referenceRange> </ observation> </component> <component> <observation moodCode= "EVN" classCode="OBS"> <templateId root="216.840.1.056683.10...4.2 " /> <id nullFlavor="NA" /> <code codeSystem="local" code="IG# " displayName="IMMATURE GRANULOCYTE #" /> <statusCode code="completed" /> <effectiveTime value="831937914929" /> <value unit="k/cumm " xsi:type="PQ" value="0.06" /> <referenceRange> < observationRange> <text>0.00-0.09</text> </ observationRange> </referenceRange> </observation> </ component> <component> <observation moodCode="EVN" classCode="OBS"> <templateId root="216.840.1.967702.10..4.2" /> <id nullFlavor="NA" /> <code codeSystem="local" code="IPFT" displayName= "IMMATURE PLATELET FRACTION" /> <statusCode code="completed" /> <effectiveTime value="671063017214" /> <value unit="%" xsi:type= "PQ" value="6.8" /> <interpretationCode codeSystem="local" code="*" /> <referenceRange> <observationRange> <text>1.1- 6.1</text> </observationRange> </referenceRange> </ observation> </component> </organizer> </entry> <entry> <organizer moodCode="EVN" classCode="BATTERY"> <templateId root= "216.840.1.982416.07.02.22.4.1" /> <id nullFlavor="NA" /> <code codeSystem="local" code="METABC" displayName="METABOLIC PANEL, COMPREHN" /> <statusCode code="completed" /> <component> <observation moodCode= "EVN" classCode="OBS"> <templateId root="10.29.840.1.977834.07.02.22.4.2 " /> <id nullFlavor="NA" /> <code codeSystem="local" code="K" displayName="POTASSIUM" /> <statusCode code="completed" /> < effectiveTime value="207582257812" /> <value unit="mmol/L" xsi:type="PQ " value="4.1" /> <referenceRange> <observationRange> <text>3.5-5.3</text> </observationRange> </ referenceRange> </observation> </component> <component> <observation moodCode="EVN" classCode="OBS"> <templateId root= "840.1.453031.07.02.22.4.2" /> <id nullFlavor="NA" /> < code codeSystem="local" code="eGFR" displayName="EST GFR (MDRD)" /> < statusCode code="completed" /> <effectiveTime value="410140186200" /> <value unit="mL/min" xsi:type="PQ" value="59" /> < interpretationCode codeSystem="local" code="*" /> <referenceRange> <observationRange> <text>> 59</text> </ observationRange> </referenceRange> </observation> </ component> <component> <observation moodCode="EVN" classCode="OBS"> <templateId root="840.1.206858.10...4.2" /> <id nullFlavor="NA" /> <code codeSystem="local" code="GAP" displayName= "ANION GAP" /> <statusCode code="completed" /> <effectiveTime value="083596719187" /> <value unit="mmol/L" xsi:type="PQ" value="12" / > <referenceRange> <observationRange> <text>5- 15</text> </observationRange> </referenceRange> </ observation> </component> <component> <observation moodCode= "EVN" classCode="OBS"> <templateId root="2.16.840.1.112638.10..22.4.2 " /> <id nullFlavor="NA" /> <code codeSystem="local" code= "eCrCl" displayName="EST CrCl (CG)" /> <statusCode code="completed" /> <effectiveTime value="076058629770" /> <value unit="mL/min" xsi:type="PQ" value="> 60" /> <referenceRange> < observationRange> <text>> 59</text> </ observationRange> </referenceRange> </observation> </ component> <component> <observation moodCode="EVN" classCode="OBS"> <templateId root="2.16.840.1.947690.10..22.4.2" /> <id nullFlavor="NA" /> <code codeSystem="local" code="GLU" displayName= "GLUCOSE" /> <statusCode code="completed" /> <effectiveTime value="609794391220" /> <value unit="mg/dL" xsi:type="PQ" value="121" / > <interpretationCode codeSystem="local" code="*" /> < referenceRange> <observationRange> <text>70-99</text> </observationRange> </referenceRange> </observation> </component> <component> <observation moodCode="EVN" classCode= "OBS"> <templateId root="216.840.1.913154.10..22.4.2" /> < id nullFlavor="NA" /> <code codeSystem="local" code="CA" displayName= "CALCIUM" /> <statusCode code="completed" /> <effectiveTime value="170598894463" /> <value unit="mg/dL" xsi:type="PQ" value="8.6" / > <referenceRange> <observationRange> <text>8.5 -10.1</text> </observationRange> </referenceRange> </ observation> </component> <component> <observation moodCode= "EVN" classCode="OBS"> <templateId root="16.840.1.237255.10..22.4.2 " /> <id nullFlavor="NA" /> <code codeSystem="local" code="BUN " displayName="BLOOD UREA NITROGEN" /> <statusCode code="completed" /> <effectiveTime value="235579336053" /> <value unit="mg/dL" xsi:type="PQ" value="18" /> <referenceRange> < observationRange> <text>7-20</text> </observationRange> </referenceRange> </observation> </component> < component> <observation moodCode="EVN" classCode="OBS"> < templateId root="16.840.1.658137.10..22.4.2" /> <id nullFlavor="NA " /> <code codeSystem="local" code="CREAT" displayName="CREATININE" /> <statusCode code="completed" /> <effectiveTime value= "560745932003" /> <value unit="mg/dL" xsi:type="PQ" value="1.3" /> <referenceRange> <observationRange> <text>0.7-1.3< /text> </observationRange> </referenceRange> </ observation> </component> <component> <observation moodCode= "EVN" classCode="OBS"> <templateId root="216.840.1.612306.10.22.4.2 " /> <id nullFlavor="NA" /> <code codeSystem="local" code="NA " displayName="SODIUM" /> <statusCode code="completed" /> < effectiveTime value="" /> <value unit="mmol/L" xsi:type="PQ " value="141" /> <referenceRange> <observationRange> <text>135-148</text> </observationRange> </ referenceRange> </observation> </component> <component> <observation moodCode="EVN" classCode="OBS"> <templateId root= "2.840.1.806648.07.02.22.4.2" /> <id nullFlavor="NA" /> < code codeSystem="local" code="CL" displayName="CHLORIDE" /> < statusCode code="completed" /> <effectiveTime value="" /> <value unit="mmol/L" xsi:type="PQ" value="106" /> < referenceRange> <observationRange> <text>98-110</text> </observationRange> </referenceRange> </observation> </component> <component> <observation moodCode="EVN" classCode ="OBS"> <templateId root="216.840.1.754090.10.22.4.2" /> < id nullFlavor="NA" /> <code codeSystem="local" code="AST" displayName= "AST/SGOT" /> <statusCode code="completed" /> <effectiveTime value="" /> <value unit="Units/L" xsi:type="PQ" value="55" /> <interpretationCode codeSystem="local" code="*" /> < referenceRange> <observationRange> <text>10-37</text> </observationRange> </referenceRange> </observation> </component> <component> <observation moodCode="EVN" classCode= "OBS"> <templateId root="10.29.840.1.543340.10.4.2" /> < id nullFlavor="NA" /> <code codeSystem="local" code="ALT" displayName= "ALT/SGPT" /> <statusCode code="completed" /> <effectiveTime value="557966677492" /> <value unit="Units/L" xsi:type="PQ" value="53" /> <referenceRange> <observationRange> <text>& lt; 66</text> </observationRange> </referenceRange> < /observation> </component> <component> <observation moodCode= "EVN" classCode="OBS"> <templateId root="840.1.530011.07.02.22.4.2 " /> <id nullFlavor="NA" /> <code codeSystem="local" code="CO2 " displayName="CARBON DIOXIDE" /> <statusCode code="completed" /> <effectiveTime value="682651439144" /> <value unit="mmol/L" xsi: type="PQ" value="23" /> <referenceRange> <observationRange> <text>21-32</text> </observationRange> </ referenceRange> </observation> </component> <component> <observation moodCode="EVN" classCode="OBS"> <templateId root= "10.29.840.1.305228.10.22.4.2" /> <id nullFlavor="NA" /> < code codeSystem="local" code="TP" displayName="TOTAL PROTEIN" /> < statusCode code="completed" /> <effectiveTime value="353332969464" /> <value unit="gm/dL" xsi:type="PQ" value="7.6" /> < referenceRange> <observationRange> <text>6.4-8.2</text> </observationRange> </referenceRange> </observation > </component> <component> <observation moodCode="EVN" classCode="OBS"> <templateId root="16.840.1.946106.10.20.22.4.2" /> <id nullFlavor="NA" /> <code codeSystem="local" code="ALB" displayName="ALBUMIN" /> <statusCode code="completed" /> < effectiveTime value="262031794439" /> <value unit="gm/dL" xsi:type="PQ " value="3.3" /> <interpretationCode codeSystem="local" code="*" /> <referenceRange> <observationRange> <text>3.4-5.0 </text> </observationRange> </referenceRange> </ observation> </component> <component> <observation moodCode= "EVN" classCode="OBS"> <templateId root="16.840.1.517073.10.20.22.4.2 " /> <id nullFlavor="NA" /> <code codeSystem="local" code= "BILTOT" displayName="BILI TOTAL" /> <statusCode code="completed" /> <effectiveTime value="420296711708" /> <value unit="mg/dL" xsi: type="PQ" value="0.6" /> <referenceRange> <observationRange > <text>0.0-1.0</text> </observationRange> </ referenceRange> </observation> </component> <component> <observation moodCode="EVN" classCode="OBS"> <templateId root= "2.16.840.1.327583.10.20.22.4.2" /> <id nullFlavor="NA" /> < code codeSystem="local" code="ALKP" displayName="ALKALINE PHOSPHATASE TOTAL" /> <statusCode code="completed" /> <effectiveTime value= "896759205831" /> <value unit="IU/L" xsi:type="PQ" value="132" /> <interpretationCode codeSystem="local" code="*" /> <referenceRange > <observationRange> <text>45-117</text> </ observationRange> </referenceRange> </observation> </ component> </organizer> </entry> <entry> <organizer moodCode="EVN" classCode="BATTERY"> <templateId root="2.16.840.1.542315.10.20.22.4.1" /> <id nullFlavor="NA" /> <code codeSystem="local" code="BC" displayName= "BLOOD CULTURE" /> <statusCode code="completed" /> <component> <observation moodCode="EVN" classCode="OBS"> <templateId root= "2.16.840.1.029373.10.20.22.4.2" /> <id nullFlavor="NA" /> < code codeSystem="local" code="MB" displayName="Microbiology" /> < statusCode code="completed" /> <effectiveTime value="719052168396" /> <value xsi:type="ST" value="<pre><b>BLOOD CULTURE</b> See BelowIs this a Possible Sepsis/Sepsis patient? YesBLOOD CULTURE(F) Alicia Date/ Time: 10/12/2017 23:59 Mitzy Date/Time: 10/18/2017 10:10SOURCE: BLOODSPEC DESC: [id number] [facility] [place] [address]</pre>" /> <referenceRange > <observationRange> <text /> </ observationRange> </referenceRange> </observation> </ component> </organizer> </entry> <entry> <organizer moodCode="EVN" classCode="BATTERY"> <templateId root="16.840.1.938212.10..22.4.1" /> <id nullFlavor="NA" /> <code codeSystem="local" code="ABG" displayName ="ARTERIAL BLOOD GAS" /> <statusCode code="completed" /> <component> <observation moodCode="EVN" classCode="OBS"> <templateId root= "10.29.840.1.941482.10..4.2" /> <id nullFlavor="NA" /> < code codeSystem="local" code="VIMAL" displayName="ABG BASE EXCESS" /> < statusCode code="completed" /> <effectiveTime value="694075000735" /> <value unit="meq/L" xsi:type="PQ" value="-3.5" /> < interpretationCode codeSystem="local" code="*" /> <referenceRange> <observationRange> <text>-3.0-3.0</text> </ observationRange> </referenceRange> </observation> </ component> <component> <observation moodCode="EVN" classCode="OBS"> <templateId root="10.29.840.1.302255.10...4.2" /> <id nullFlavor="NA" /> <code codeSystem="local" code="PAUL" displayName= "ABG DEVICE" /> <statusCode code="completed" /> < effectiveTime value="650968965637" /> <value unit="" xsi:type="PQ" value="NC" /> <referenceRange> <observationRange> <text /> </observationRange> </referenceRange> </ observation> </component> <component> <observation moodCode= "EVN" classCode="OBS"> <templateId root="216.840.1.650990.10.22.4.2 " /> <id nullFlavor="NA" /> <code codeSystem="local" code= "HCO3A" displayName="ABG BICARBONATE" /> <statusCode code="completed" / > <effectiveTime value="" /> <value unit="meq/L" xsi:type="PQ" value="19.8" /> <interpretationCode codeSystem="local" code="*" /> <referenceRange> <observationRange> <text>23.0-28.0</text> </observationRange> </ referenceRange> </observation> </component> <component> <observation moodCode="EVN" classCode="OBS"> <templateId root= "216.840.1.174490.07.02.22.4.2" /> <id nullFlavor="NA" /> < code codeSystem="local" code="L/MA" displayName="ABG L/M" /> < statusCode code="completed" /> <effectiveTime value="" /> <value unit="" xsi:type="PQ" value="4.0" /> <referenceRange> <observationRange> <text /> </ observationRange> </referenceRange> </observation> </ component> <component> <observation moodCode="EVN" classCode="OBS"> <templateId root="216.840.1.430629.10..4.2" /> <id nullFlavor="NA" /> <code codeSystem="local" code="PCO2A" displayName= "ABG PCO2" /> <statusCode code="completed" /> <effectiveTime value="" /> <value unit="mmHg" xsi:type="PQ" value="31" /> <interpretationCode codeSystem="local" code="*" /> < referenceRange> <observationRange> <text>34-45</text> </observationRange> </referenceRange> </observation> </component> <component> <observation moodCode="EVN" classCode= "OBS"> <templateId root="16.840.1.986126.10..22.4.2" /> < id nullFlavor="NA" /> <code codeSystem="local" code="PHAX" displayName= "ABG PH" /> <statusCode code="completed" /> <effectiveTime value="538703774623" /> <value unit="" xsi:type="PQ" value="7.43" /> <referenceRange> <observationRange> <text>7.35- 7.45</text> </observationRange> </referenceRange> </ observation> </component> <component> <observation moodCode= "EVN" classCode="OBS"> <templateId root="10.29.840.1.199766.10..4.2 " /> <id nullFlavor="NA" /> <code codeSystem="local" code= "PO2A" displayName="ABG PO2" /> <statusCode code="completed" /> <effectiveTime value="504192237823" /> <value unit="mmHg" xsi:type= "PQ" value="68" /> <interpretationCode codeSystem="local" code="*" /> <referenceRange> <observationRange> <text>75- 100</text> </observationRange> </referenceRange> </ observation> </component> <component> <observation moodCode= "EVN" classCode="OBS"> <templateId root="10.29.840.1.409343.10..22.4.2 " /> <id nullFlavor="NA" /> <code codeSystem="local" code= "SATA" displayName="ABG O2 SATURATION" /> <statusCode code="completed" /> <effectiveTime value="816620409479" /> <value unit="%" xsi:type="PQ" value="93" /> <referenceRange> < observationRange> <text>93-100</text> </observationRange > </referenceRange> </observation> </component> </ organizer> </entry> <entry> <organizer moodCode="EVN" classCode="BATTERY"> <templateId root="2.16.840.1.443180.10..22.4.1" /> <id nullFlavor= "NA" /> <code codeSystem="local" code="BC" displayName="BLOOD CULTURE" /> <statusCode code="completed" /> <component> <observation moodCode="EVN" classCode="OBS"> <templateId root= "2.16.840.1.144718.10.20.22.4.2" /> <id nullFlavor="NA" /> < code codeSystem="local" code="MB" displayName="Microbiology" /> < statusCode code="completed" /> <effectiveTime value="797720794081" /> <value xsi:type="ST" value="<pre><b>BLOOD CULTURE</b> See BelowIs this a Possible Sepsis/Sepsis patient? YesBLOOD CULTURE(F) Alicia Date/ Time: 10/13/2017 00:33 Mitzy Date/Time: 10/18/2017 10:38SOURCE: BLOODSPEC DESC: [id number] [facility] [place] [facility] [place] [place] [address]</pre>" /> <referenceRange > <observationRange> <text /> </ observationRange> </referenceRange> </observation> </ component> </organizer> </entry> <entry> <organizer moodCode="EVN" classCode="BATTERY"> <templateId root="2.16.840.1.727888.10..4.1" /> <id nullFlavor="NA" /> <code codeSystem="local" code="MISCL" displayName="LABORATORY MISCELLANEOUS TEST" /> <statusCode code="completed " /> <component> <observation moodCode="EVN" classCode="OBS"> <templateId root="216.840.1.757802.07.02.22.4.2" /> <id nullFlavor ="NA" /> <code codeSystem="local" code="MISCLAB" displayName= "PERFORMING LAB" /> <statusCode code="completed" /> < effectiveTime value="" /> <value unit="" xsi:type="PQ" value="[facility]" /> <referenceRange> < observationRange> <text /> </observationRange> </referenceRange> </observation> </component> <component> <observation moodCode="EVN" classCode="OBS"> <templateId root= "216.840.1.630397.07.02.22.4.2" /> <id nullFlavor="NA" /> < code codeSystem="local" code="REFL" displayName="LABORATORY TEST REF RANGE" /> <statusCode code="completed" /> <effectiveTime value= "" /> <value unit="" xsi:type="PQ" value="< 80 pg/mL" / > <referenceRange> <observationRange> <text /> </observationRange> </referenceRange> </observation > </component> <component> <observation moodCode="EVN" classCode="OBS"> <templateId root="216.840.1.750649.07.02.22.4.2" /> <id nullFlavor="NA" /> <code codeSystem="local" code="RESULTL " displayName="LABORATORY TEST RESULT" /> <statusCode code="completed" /> <effectiveTime value="" /> <value unit="" xsi: type="PQ" value="38 pg/mL" /> <referenceRange> < observationRange> <text /> </observationRange> </referenceRange> </observation> </component> <component> <observation moodCode="EVN" classCode="OBS"> <templateId root= "10.29.840.1.374886.10..4.2" /> <id nullFlavor="NA" /> < code codeSystem="local" code="TESTL" displayName="LABORATORY TEST" /> < statusCode code="completed" /> <effectiveTime value="" /> <value unit="" xsi:type="PQ" value="FUNGITELL,SERUM" /> < referenceRange> <observationRange> <text /> < /observationRange> </referenceRange> </observation> </ component> </organizer> </entry> <entry> <organizer moodCode="EVN" classCode="BATTERY"> <templateId root="10.29.840.1.753911.10...4.1" /> <id nullFlavor="NA" /> <code codeSystem="local" code="VRP" displayName ="VIRUS RESPIRATORY PROFILE" /> <statusCode code="completed" /> < component> <observation moodCode="EVN" classCode="OBS"> < templateId root="10.29.840.1.712795.07.02.22.4.2" /> <id nullFlavor="NA " /> <code codeSystem="local" code="MB" displayName="Microbiology" /> <statusCode code="completed" /> <effectiveTime value= "075021619829" /> <value xsi:type="ST" value="<pre><b>RESPIRATORY PROFILE</b> See BelowRESPIRATORY PROFILE(F) Alicia Date/Time: 10/13/2017 02:12 Mitzy Date/Time: 10/13/2017 08:50SOURCE: NASOPHARYNGEALSPEC DESC: ADENOVIRUSNOT DETECTEDBORDETELLA PERTUSSISNOT DETECTEDCHLAMYDIA PNEUMONIAENOT DETECTEDCORONAVIRUS 229ENOT DETECTEDCORONAVIRUS YIU9NHN DETECTEDCORONAVIRUS YL11GTO DETECTEDCORONAVIRUS CI20VZR DETECTEDHUMAN METAPNEUMOVIRUSNOT DETECTEDINFLUENZA A 2008 H1NOT DETECTEDINFLUENZA A H1NOT DETECTEDINFLUENZA A H3NOT DETECTEDINFLUENZA ANOT DETECTEDINFLUENZA BNOT DETECTEDMYCOPLASMA PNEUMONIAENOT DETECTEDPARAINFLUENZA 1NOT DETECTEDPARAINFLUENZA 2NOT DETECTEDPARAINFLUENZA 3NOT DETECTEDPARAINFLUENZA 4NOT DETECTEDRHINOVIRUS/ENTEROVIRUSNOT DETECTEDRSVNOT DETECTED[facility] [place] [address]</pre>" /> <referenceRange> <observationRange> <text /> </observationRange> </referenceRange> </observation> </component> </organizer > </entry> <entry> <organizer moodCode="EVN" classCode="BATTERY"> < templateId root="2.16.840.1.719281.10.20.22.4.1" /> <id nullFlavor="NA" /> <code codeSystem="local" code="FUNC" displayName="FUNGUS CULTURE" /> <statusCode code="completed" /> <component> <observation moodCode= "EVN" classCode="OBS"> <templateId root="2.16.840.1.669595.10.20.22.4.2 " /> <id nullFlavor="NA" /> <code codeSystem="local" code="MB " displayName="Microbiology" /> <statusCode code="completed" /> <effectiveTime value="637671168481" /> <value xsi:type="ST" value="< pre><b>FUNGUS CULTURE</b> See BelowFUNGUS CULTURE(F) Alicia Date/Time : 10/13/2017 02:14 Mitzy Date/Time: 11/12/2017 13: 11SOURCE: BLOODSPEC DESC: PERIPHERALNGFFNO FUNGUS [facility]ATED[facility] [place] [facility] [place] [address]</pre>" /> <referenceRange> <observationRange> <text /> </observationRange> </referenceRange> </observation> </component> </organizer > </entry> <entry> <organizer moodCode="EVN" classCode="BATTERY"> < templateId root="2.16.840.1.140228.10.20.22.4.1" /> <id nullFlavor="NA" /> <code codeSystem="local" code="LACTG" displayName="LACTIC ACID" /> < statusCode code="completed" /> <component> <observation moodCode= "EVN" classCode="OBS"> <templateId root="2.16.840.1.683221.10.20.22.4.2 " /> <id nullFlavor="NA" /> <code codeSystem="local" code= "LACT" displayName="LACTIC ACID" /> <statusCode code="completed" /> <effectiveTime value="441371332643" /> <value unit="mmol/L" xsi: type="PQ" value="2.3" /> <interpretationCode codeSystem="local" code="* " /> <referenceRange> <observationRange> <text> 0.5-2.0</text> </observationRange> </referenceRange> </observation> </component> </organizer> </entry> <entry> < organizer moodCode="EVN" classCode="BATTERY"> <templateId root= "2.16.840.1.744454.10.20.22.4.1" /> <id nullFlavor="NA" /> <code codeSystem="local" code="LACTG" displayName="LACTIC ACID" /> <statusCode code="completed" /> <component> <observation moodCode="EVN" classCode="OBS"> <templateId root="10.29.840.1.460171.10..22.4.2" /> <id nullFlavor="NA" /> <code codeSystem="local" code="LACT" displayName="LACTIC ACID" /> <statusCode code="completed" /> < effectiveTime value="662776488835" /> <value unit="mmol/L" xsi:type="PQ " value="3.8" /> <interpretationCode codeSystem="local" code="*" /> <referenceRange> <observationRange> <text>0.5-2.0 </text> </observationRange> </referenceRange> </ observation> </component> </organizer> </entry> <entry> <organizer moodCode="EVN" classCode="BATTERY"> <templateId root= "840.1.127592.10...4.1" /> <id nullFlavor="NA" /> <code codeSystem="local" code="LDH" displayName="LACTATE DEHYDROGENASE (LDH/LD)" /> <statusCode code="completed" /> <component> <observation moodCode="EVN" classCode="OBS"> <templateId root= "10.29.840.1.232273.10..22.4.2" /> <id nullFlavor="NA" /> < code codeSystem="local" code="LDH" displayName="LACTATE DEHYDROGENASE (LDH/LD)" /> <statusCode code="completed" /> <effectiveTime value= "270323452414" /> <value unit="Units/L" xsi:type="PQ" value="378" /> <interpretationCode codeSystem="local" code="*" /> < referenceRange> <observationRange> <text>81-234</text> </observationRange> </referenceRange> </observation> </component> </organizer> </entry> <entry> <organizer moodCode= "EVN" classCode="BATTERY"> <templateId root="10.29.840.1.502297.10..22.4.1 " /> <id nullFlavor="NA" /> <code codeSystem="local" code="CD48" displayName="CD4/8 RATIO" /> <statusCode code="completed" /> < component> <observation moodCode="EVN" classCode="OBS"> < templateId root="10.29.840.1.675614.10...4.2" /> <id nullFlavor="NA " /> <code codeSystem="local" code="[id number]" displayName="CD 3/4 POSITIVE" /> <statusCode code="completed" /> <effectiveTime value="464036437944" /> <value unit="%" xsi:type="PQ" value="5" /> <interpretationCode codeSystem="local" code="*" /> < referenceRange> <observationRange> <text>34-68</text> </observationRange> </referenceRange> </observation> </component> <component> <observation moodCode="EVN" classCode= "OBS"> <templateId root="10.29.840.1.911263.10..4.2" /> < id nullFlavor="NA" /> <code codeSystem="local" code="[id number]" displayName="CD 3/4 ABSOLUTE" /> <statusCode code="completed" /> <effectiveTime value="119224218246" /> <value unit="#" xsi:type="PQ " value="39" /> <interpretationCode codeSystem="local" code="*" /> <referenceRange> <observationRange> <text>250-2400 </text> </observationRange> </referenceRange> </ observation> </component> <component> <observation moodCode= "EVN" classCode="OBS"> <templateId root="2.840.1.445058.10.20.22.4.2 " /> <id nullFlavor="NA" /> <code codeSystem="local" code= "[id number]" displayName="CD 3/8 POSITIVE" /> <statusCode code="completed " /> <effectiveTime value="569829340996" /> <value unit="% " xsi:type="PQ" value="77" /> <interpretationCode codeSystem="local" code="*" /> <referenceRange> <observationRange> <text>6-41</text> </observationRange> </referenceRange> </observation> </component> <component> <observation moodCode="EVN" classCode="OBS"> <templateId root= "10.29.840.1.894428.10..4.2" /> <id nullFlavor="NA" /> < code codeSystem="local" code="SD40JNE" displayName="CD 3/8 ABSOLUTE" /> <statusCode code="completed" /> <effectiveTime value="010241675777" / > <value unit="#" xsi:type="PQ" value="602" /> <referenceRange > <observationRange> <text>150-1800</text> </ observationRange> </referenceRange> </observation> </ component> <component> <observation moodCode="EVN" classCode="OBS"> <templateId root="16.840.1.970860.10.20.22.4.2" /> <id nullFlavor="NA" /> <code codeSystem="local" code="[id number]" displayName="CD 4/8 RATIO" /> <statusCode code="completed" /> <effectiveTime value="099192700680" /> <value unit="" xsi:type="PQ" value="0.1" /> <interpretationCode codeSystem="local" code="*" /> <referenceRange> <observationRange> <text>0.6-4.0</ text> </observationRange> </referenceRange> </ observation> </component> </organizer> </entry> <entry> <organizer moodCode="EVN" classCode="BATTERY"> <templateId root= "16.840.1.097466.10..22.4.1" /> <id nullFlavor="NA" /> <code codeSystem="local" code="LACTG" displayName="LACTIC ACID" /> <statusCode code="completed" /> <component> <observation moodCode="EVN" classCode="OBS"> <templateId root="16.840.1.256075.10..22.4.2" /> <id nullFlavor="NA" /> <code codeSystem="local" code="LACT" displayName="LACTIC ACID" /> <statusCode code="completed" /> < effectiveTime value="040846421270" /> <value unit="mmol/L" xsi:type="PQ " value="4.3" /> <interpretationCode codeSystem="local" code="" /> <referenceRange> <observationRange> <text>0.5- 2.0</text> </observationRange> </referenceRange> </ observation> </component> </organizer> </entry> <entry> <organizer moodCode="EVN" classCode="BATTERY"> <templateId root= "16.840.1.365430.10.22.4.1" /> <id nullFlavor="NA" /> <code codeSystem="local" code="CMP" displayName="Comprehensive Metabolic Panel (CMP)" /> <statusCode code="completed" /> <component> <observation moodCode="EVN" classCode="OBS"> <templateId root= "[id number]" /> <id nullFlavor="NA" /> < code codeSystem="local" code="ALB" displayName="Albumin" /> < statusCode code="completed" /> <effectiveTime value="" /> <value unit="g/dL" xsi:type="PQ" value="3.4" /> < interpretationCode codeSystem="local" code="*" /> <referenceRange> <observationRange> <text>3.5-4.8</text> </ observationRange> </referenceRange> </observation> </ component> <component> <observation moodCode="EVN" classCode="OBS"> <templateId root="840.1.742147...4.2" /> <id nullFlavor="NA" /> <code codeSystem="local" code="ALP" displayName= "Alkaline Phosphatase" /> <statusCode code="completed" /> < effectiveTime value="" /> <value unit="U/L" xsi:type="PQ" value="101" /> <referenceRange> <observationRange> <text>26-104</text> </observationRange> </ referenceRange> </observation> </component> <component> <observation moodCode="EVN" classCode="OBS"> <templateId root= "10.29.840.1.929844.10.20.22.4.2" /> <id nullFlavor="NA" /> < code codeSystem="local" code="ALT" displayName="ALT (SGPT)" /> < statusCode code="completed" /> <effectiveTime value="" /> <value unit="U/L" xsi:type="PQ" value="40" /> <referenceRange > <observationRange> <text>17-63</text> </ observationRange> </referenceRange> </observation> </ component> <component> <observation moodCode="EVN" classCode="OBS"> <templateId root="216.840.1.306469.10.4.2" /> <id nullFlavor="NA" /> <code codeSystem="local" code="AGAP" displayName= "Anion Gap" /> <statusCode code="completed" /> <effectiveTime value="" /> <value unit="mEq/L" xsi:type="PQ" value="12" / > <referenceRange> <observationRange> <text>3- 20</text> </observationRange> </referenceRange> </ observation> </component> <component> <observation moodCode= "EVN" classCode="OBS"> <templateId root="216.840.1.579208.10...4.2 " /> <id nullFlavor="NA" /> <code codeSystem="local" code="AST " displayName="AST (SGOT)" /> <statusCode code="completed" /> <effectiveTime value="" /> <value unit="U/L" xsi:type="PQ" value="54" /> <interpretationCode codeSystem="local" code="*" /> <referenceRange> <observationRange> <text>15-41</ text> </observationRange> </referenceRange> </ observation> </component> <component> <observation moodCode= "EVN" classCode="OBS"> <templateId root="216.840.1.802192.07.02.22.4.2 " /> <id nullFlavor="NA" /> <code codeSystem="local" code= "BILIT" displayName="Bilirubin Total" /> <statusCode code="completed" / > <effectiveTime value="" /> <value unit="mg/dL" xsi:type="PQ" value="0.9" /> <referenceRange> < observationRange> <text>0.2-1.2</text> </ observationRange> </referenceRange> </observation> </ component> <component> <observation moodCode="EVN" classCode="OBS"> <templateId root="16.840.1.957322.07.02.224.2" /> <id nullFlavor="NA" /> <code codeSystem="local" code="BUN" displayName="BUN " /> <statusCode code="completed" /> <effectiveTime value= "" /> <value unit="mg/dL" xsi:type="PQ" value="22" /> <interpretationCode codeSystem="local" code="*" /> <referenceRange > <observationRange> <text>4-20</text> </ observationRange> </referenceRange> </observation> </ component> <component> <observation moodCode="EVN" classCode="OBS"> <templateId root="10.29.840.1.955323.07.02.22.4.2" /> <id nullFlavor="NA" /> <code codeSystem="local" code="CA" displayName= "Calcium" /> <statusCode code="completed" /> <effectiveTime value="" /> <value unit="mg/dL" xsi:type="PQ" value="8.5" / > <interpretationCode codeSystem="local" code="*" /> < referenceRange> <observationRange> <text>8.6-10.0</text > </observationRange> </referenceRange> </observation > </component> <component> <observation moodCode="EVN" classCode="OBS"> <templateId root="16.840.1.583213.10..4.2" /> <id nullFlavor="NA" /> <code codeSystem="local" code="CL" displayName="Chloride" /> <statusCode code="completed" /> < effectiveTime value="" /> <value unit="mEq/L" xsi:type="PQ " value="104" /> <referenceRange> <observationRange> <text>99-109</text> </observationRange> </ referenceRange> </observation> </component> <component> <observation moodCode="EVN" classCode="OBS"> <templateId root= "10.29.840.1.345636.07.02.22.4.2" /> <id nullFlavor="NA" /> < code codeSystem="local" code="CO2" displayName="CO2" /> <statusCode code="completed" /> <effectiveTime value="" /> < value unit="mEq/L" xsi:type="PQ" value="20" /> <interpretationCode codeSystem="local" code="*" /> <referenceRange> < observationRange> <text>22-32</text> </observationRange > </referenceRange> </observation> </component> < component> <observation moodCode="EVN" classCode="OBS"> < templateId root="10.29.840.1.613652...4.2" /> <id nullFlavor="NA " /> <code codeSystem="local" code="CREAT" displayName="Creatinine" /> <statusCode code="completed" /> <effectiveTime value= "" /> <value unit="mg/dL" xsi:type="PQ" value="1.10" /> <referenceRange> <observationRange> <text>0.64- 1.27</text> </observationRange> </referenceRange> </ observation> </component> <component> <observation moodCode= "EVN" classCode="OBS"> <templateId root="216.840.1.350556.10.22.4.2 " /> <id nullFlavor="NA" /> <code codeSystem="local" code= "GLOB" displayName="Globulin" /> <statusCode code="completed" /> <effectiveTime value="" /> <value unit="g/dL" xsi:type= "PQ" value="3.3" /> <referenceRange> <observationRange> <text>1.9-4.3</text> </observationRange> </ referenceRange> </observation> </component> <component> <observation moodCode="EVN" classCode="OBS"> <templateId root= "16.840.1.944234.10..4.2" /> <id nullFlavor="NA" /> < code codeSystem="local" code="GLU" displayName="Glucose" /> < statusCode code="completed" /> <effectiveTime value="" /> <value unit="mg/dL" xsi:type="PQ" value="101" /> < interpretationCode codeSystem="local" code="*" /> <referenceRange> <observationRange> <text>70-100</text> </ observationRange> </referenceRange> </observation> </ component> <component> <observation moodCode="EVN" classCode="OBS"> <templateId root="16.840.1.687863...4.2" /> <id nullFlavor="NA" /> <code codeSystem="local" code="K" displayName= "Potassium" /> <statusCode code="completed" /> <effectiveTime value="" /> <value unit="mEq/L" xsi:type="PQ" value="4.6" / > <referenceRange> <observationRange> <text>3.6 -5.1</text> </observationRange> </referenceRange> </ observation> </component> <component> <observation moodCode= "EVN" classCode="OBS"> <templateId root="2.16.840.1.189114.07.02.22.4.2 " /> <id nullFlavor="NA" /> <code codeSystem="local" code="TP " displayName="Protein" /> <statusCode code="completed" /> < effectiveTime value="" /> <value unit="g/dL" xsi:type="PQ" value="6.7" /> <referenceRange> <observationRange> <text>6.1-7.9</text> </observationRange> </ referenceRange> </observation> </component> <component> <observation moodCode="EVN" classCode="OBS"> <templateId root= "2.16.840.1.716987.10.4.2" /> <id nullFlavor="NA" /> < code codeSystem="local" code="NA" displayName="Sodium" /> <statusCode code="completed" /> <effectiveTime value="" /> < value unit="mEq/L" xsi:type="PQ" value="136" /> <referenceRange> <observationRange> <text>136-144</text> </ observationRange> </referenceRange> </observation> </ component> </organizer> </entry> <entry> <organizer moodCode="EVN" classCode="BATTERY"> <templateId root="10.29.840.1.182567.10..4.1" /> <id nullFlavor="NA" /> <code codeSystem="local" code="MG" displayName= "Magnesium" /> <statusCode code="completed" /> <component> < observation moodCode="EVN" classCode="OBS"> <templateId root= "840.1.206011.07.02.22.4.2" /> <id nullFlavor="NA" /> < code codeSystem="local" code="MG" displayName="Magnesium" /> < statusCode code="completed" /> <effectiveTime value="" /> <value unit="mg/dL" xsi:type="PQ" value="1.8" /> < referenceRange> <observationRange> <text>1.8-2.5</text> </observationRange> </referenceRange> </observation > </component> </organizer> </entry> <entry> <organizer moodCode= "EVN" classCode="BATTERY"> <templateId root="840.1.808890.07.02.22.4.1 " /> <id nullFlavor="NA" /> <code codeSystem="local" code="PHOS" displayName="Phosphorus" /> <statusCode code="completed" /> <component > <observation moodCode="EVN" classCode="OBS"> <templateId root= "10.29.840.1.593635.07.02.22.4.2" /> <id nullFlavor="NA" /> < code codeSystem="local" code="PHOS" displayName="Phosphorus" /> < statusCode code="completed" /> <effectiveTime value="" /> <value unit="mg/dL" xsi:type="PQ" value="4.4" /> < referenceRange> <observationRange> <text>2.4-4.7</text> </observationRange> </referenceRange> </observation > </component> </organizer> </entry> <entry> <organizer moodCode= "EVN" classCode="BATTERY"> <templateId root="10.29.840.1.881913.07.02.22.4.1 " /> <id nullFlavor="NA" /> <code codeSystem="local" code="GFR" displayName="eGFR" /> <statusCode code="completed" /> <component> <observation moodCode="EVN" classCode="OBS"> <templateId root= "840.1.412464.07.02.22.4.2" /> <id nullFlavor="NA" /> < code codeSystem="local" code="GFR" displayName="eGFR" /> <statusCode code="completed" /> <effectiveTime value="046496476429" /> < value unit="mL/min" xsi:type="PQ" value=">60" /> <referenceRange> <observationRange> <text>>60</text> </ observationRange> </referenceRange> </observation> </ component> </organizer> </entry> <entry> <organizer moodCode="EVN" classCode="BATTERY"> <templateId root="10.29.840.1.773911.07.02.22.4.1" /> <id nullFlavor="NA" /> <code codeSystem="local" code="ZG575" displayName="Fungitell Assay" /> <statusCode code="completed" /> < component> <observation moodCode="EVN" classCode="OBS"> < templateId root="10.29.840.1.673280.07.02.22.4.2" /> <id nullFlavor="NA " /> <code codeSystem="local" code="Z2986" displayName="Fungitell Assay " /> <statusCode code="completed" /> <effectiveTime value= "413871006787" /> <value unit="pg/mL" xsi:type="PQ" value="<31" /> <referenceRange> <observationRange> <text>< 80</text> </observationRange> </referenceRange> </ observation> </component> </organizer> </entry> <entry> <organizer moodCode="EVN" classCode="BATTERY"> <templateId root= "216.840.1.064996.07.02.22.4.1" /> <id nullFlavor="NA" /> <code codeSystem="local" code="CBCWD" displayName="CBC With Platelet and Differential " /> <statusCode code="completed" /> <component> <observation moodCode="EVN" classCode="OBS"> <templateId root= "216.840.1.329752.07.02.22.4.2" /> <id nullFlavor="NA" /> < code codeSystem="local" code="ABASR" displayName="Absolute Basophils" /> <statusCode code="completed" /> <effectiveTime value="[id number]" /> <value unit="10*3/uL" xsi:type="PQ" value="0.01" /> < referenceRange> <observationRange> <text>0.00-0.20</text > </observationRange> </referenceRange> </observation > </component> <component> <observation moodCode="EVN" classCode="OBS"> <templateId root="16.840.1.431431.07.02.22.4.2" /> <id nullFlavor="NA" /> <code codeSystem="local" code="AEOSR" displayName="Absolute Eosinophils" /> <statusCode code="completed" /> <effectiveTime value="" /> <value unit="10*3/uL" xsi:type="PQ" value="0.02" /> <referenceRange> < observationRange> <text>0.00-0.50</text> </ observationRange> </referenceRange> </observation> </ component> <component> <observation moodCode="EVN" classCode="OBS"> <templateId root="2.16.840.1.808588.10..22.4.2" /> <id nullFlavor="NA" /> <code codeSystem="local" code="ALYMR" displayName= "Absolute Lymphocytes" /> <statusCode code="completed" /> < effectiveTime value="" /> <value unit="10*3/uL" xsi:type= "PQ" value="1.94" /> <referenceRange> <observationRange> <text>0.80-3.30</text> </observationRange> </ referenceRange> </observation> </component> <component> <observation moodCode="EVN" classCode="OBS"> <templateId root= "2.16.840.1.561575.10...4.2" /> <id nullFlavor="NA" /> < code codeSystem="local" code="AMONR" displayName="Absolute Monocytes" /> <statusCode code="completed" /> <effectiveTime value="" /> <value unit="10*3/uL" xsi:type="PQ" value="0.82" /> < referenceRange> <observationRange> <text>0.30-1.00</text > </observationRange> </referenceRange> </observation > </component> <component> <observation moodCode="EVN" classCode="OBS"> <templateId root="10.29.840.1.162638.10.2022.4.2" /> <id nullFlavor="NA" /> <code codeSystem="local" code="ASEGR" displayName="Absolute Neutrophils" /> <statusCode code="completed" /> <effectiveTime value="" /> <value unit="10*3/uL" xsi:type="PQ" value="3.39" /> <referenceRange> < observationRange> <text>1.90-7.00</text> </ observationRange> </referenceRange> </observation> </ component> <component> <observation moodCode="EVN" classCode="OBS"> <templateId root="10.29.840.1.274525.1022.4.2" /> <id nullFlavor="NA" /> <code codeSystem="local" code="BASOR" displayName= "Basophils" /> <statusCode code="completed" /> <effectiveTime value="" /> <value unit="%" xsi:type="PQ" value="0" /> <referenceRange> <observationRange> <text>0-2< /text> </observationRange> </referenceRange> </ observation> </component> <component> <observation moodCode= "EVN" classCode="OBS"> <templateId root="10.29.840.1.125582.10.2022.4.2 " /> <id nullFlavor="NA" /> <code codeSystem="local" code= "EOSR" displayName="Eosinophils" /> <statusCode code="completed" /> <effectiveTime value="" /> <value unit="%" xsi: type="PQ" value="0" /> <referenceRange> <observationRange> <text>0-4</text> </observationRange> </ referenceRange> </observation> </component> <component> <observation moodCode="EVN" classCode="OBS"> <templateId root= "16.840.1.177133.10.2022.4.2" /> <id nullFlavor="NA" /> < code codeSystem="local" code="HCT" displayName="HCT" /> <statusCode code="completed" /> <effectiveTime value="" /> < value unit="%" xsi:type="PQ" value="37.8" /> <interpretationCode codeSystem="local" code="*" /> <referenceRange> < observationRange> <text>42.0-52.0</text> </ observationRange> </referenceRange> </observation> </ component> <component> <observation moodCode="EVN" classCode="OBS"> <templateId root="10.29.840.1.641450.10..4.2" /> <id nullFlavor="NA" /> <code codeSystem="local" code="HGB" displayName="HGB " /> <statusCode code="completed" /> <effectiveTime value= "" /> <value unit="g/dL" xsi:type="PQ" value="12.5" /> <interpretationCode codeSystem="local" code="*" /> < referenceRange> <observationRange> <text>14.0-18.0</text > </observationRange> </referenceRange> </observation > </component> <component> <observation moodCode="EVN" classCode="OBS"> <templateId root="10.29.840.1.390991.10.2022.4.2" /> <id nullFlavor="NA" /> <code codeSystem="local" code="IMGA" displayName="Immature Granulocytes" /> <statusCode code="completed" /> <effectiveTime value="" /> <value unit="%" xsi:type="PQ" value="0.6" /> <referenceRange> < observationRange> <text>0.0-1.0</text> </ observationRange> </referenceRange> </observation> </ component> <component> <observation moodCode="EVN" classCode="OBS"> <templateId root="216.840.1.625161.10.22.4.2" /> <id nullFlavor="NA" /> <code codeSystem="local" code="LYMPR" displayName= "Lymphocytes" /> <statusCode code="completed" /> < effectiveTime value="" /> <value unit="%" xsi:type="PQ " value="31" /> <referenceRange> <observationRange> <text>20-46</text> </observationRange> </ referenceRange> </observation> </component> <component> <observation moodCode="EVN" classCode="OBS"> <templateId root= "10.29.840.1.590769.22.4.2" /> <id nullFlavor="NA" /> < code codeSystem="local" code="MCH" displayName="MCH" /> <statusCode code="completed" /> <effectiveTime value="[id number]" /> < value unit="pg" xsi:type="PQ" value="29.3" /> <referenceRange> <observationRange> <text>27.0-32.0</text> </ observationRange> </referenceRange> </observation> </ component> <component> <observation moodCode="EVN" classCode="OBS"> <templateId root="10.29.840.1.520670.22.4.2" /> <id nullFlavor="NA" /> <code codeSystem="local" code="MCHC" displayName= "MCHC" /> <statusCode code="completed" /> <effectiveTime value ="" /> <value unit="g/dL" xsi:type="PQ" value="33.1" /> <referenceRange> <observationRange> <text>32.0- 36.0</text> </observationRange> </referenceRange> </ observation> </component> <component> <observation moodCode= "EVN" classCode="OBS"> <templateId root="2.16.840.1.647693...4.2 " /> <id nullFlavor="NA" /> <code codeSystem="local" code="MCV " displayName="MCV" /> <statusCode code="completed" /> < effectiveTime value="" /> <value unit="fL" xsi:type="PQ" value="88.7" /> <referenceRange> <observationRange> <text>82.0-99.0</text> </observationRange> </ referenceRange> </observation> </component> <component> <observation moodCode="EVN" classCode="OBS"> <templateId root= "2.16.840.1.116826.10...4.2" /> <id nullFlavor="NA" /> < code codeSystem="local" code="MONOR" displayName="Monocytes" /> < statusCode code="completed" /> <effectiveTime value="" /> <value unit="%" xsi:type="PQ" value="13" /> < interpretationCode codeSystem="local" code="*" /> <referenceRange> <observationRange> <text>4-11</text> </ observationRange> </referenceRange> </observation> </ component> <component> <observation moodCode="EVN" classCode="OBS"> <templateId root="16.840.1.333317.07.02.22.4.2" /> <id nullFlavor="NA" /> <code codeSystem="local" code="MPV" displayName="MPV " /> <statusCode code="completed" /> <effectiveTime value= "" /> <value unit="fL" xsi:type="PQ" value="11.3" /> <referenceRange> <observationRange> <text>9.4-12.3</ text> </observationRange> </referenceRange> </ observation> </component> <component> <observation moodCode= "EVN" classCode="OBS"> <templateId root="10.29.840.1.841171.07.02.224.2 " /> <id nullFlavor="NA" /> <code codeSystem="local" code= "SEGR" displayName="Neutrophils" /> <statusCode code="completed" /> <effectiveTime value="" /> <value unit="%" xsi: type="PQ" value="55" /> <referenceRange> <observationRange> <text>51-75</text> </observationRange> </ referenceRange> </observation> </component> <component> <observation moodCode="EVN" classCode="OBS"> <templateId root= "10.29.840.1.814931.07.02.22.4.2" /> <id nullFlavor="NA" /> < code codeSystem="local" code="NRBCA" displayName="Nucleated RBC Automated" /> <statusCode code="completed" /> <effectiveTime value= "" /> <value unit="/100WBC" xsi:type="PQ" value="0.0" /> <referenceRange> <observationRange> <text /> </observationRange> </referenceRange> </observation> </component> <component> <observation moodCode="EVN" classCode= "OBS"> <templateId root="10.29.840.1.952911.10.20.22.4.2" /> < id nullFlavor="NA" /> <code codeSystem="local" code="PLT" displayName= "Platelet Count" /> <statusCode code="completed" /> < effectiveTime value="" /> <value unit="K/uL" xsi:type="PQ" value="127" /> <interpretationCode codeSystem="local" code="*" /> <referenceRange> <observationRange> <text>150-400</ text> </observationRange> </referenceRange> </ observation> </component> <component> <observation moodCode= "EVN" classCode="OBS"> <templateId root="840.1.308124.10.22.4.2 " /> <id nullFlavor="NA" /> <code codeSystem="local" code="RBC " displayName="RBC" /> <statusCode code="completed" /> < effectiveTime value="" /> <value unit="10*6/uL" xsi:type= "PQ" value="4.26" /> <interpretationCode codeSystem="local" code="*" / > <referenceRange> <observationRange> <text> 4.60-6.20</text> </observationRange> </referenceRange> </observation> </component> <component> <observation moodCode="EVN" classCode="OBS"> <templateId root= "10.29.840.1.022066.10.20.22.4.2" /> <id nullFlavor="NA" /> < code codeSystem="local" code="RDW" displayName="RDW" /> <statusCode code="completed" /> <effectiveTime value="" /> < value unit="%" xsi:type="PQ" value="15.6" /> <interpretationCode codeSystem="local" code="*" /> <referenceRange> < observationRange> <text>11.5-14.5</text> </ observationRange> </referenceRange> </observation> </ component> <component> <observation moodCode="EVN" classCode="OBS"> <templateId root="840.1.781330.07.02.22.4.2" /> <id nullFlavor="NA" /> <code codeSystem="local" code="WBCIR" displayName= "WBC" /> <statusCode code="completed" /> <effectiveTime value= "" /> <value unit="K/uL" xsi:type="PQ" value="6.2" /> <referenceRange> <observationRange> <text>4.8-10.8< /text> </observationRange> </referenceRange> </ observation> </component> </organizer> </entry> <entry> <organizer moodCode="EVN" classCode="BATTERY"> <templateId root= "840.1.163072.22.4.1" /> <id nullFlavor="NA" /> <code codeSystem="local" code="PT" displayName="Protime (INR)" /> <statusCode code="completed" /> <component> <observation moodCode="EVN" classCode="OBS"> <templateId root="10.29.840.1.885497.2022.4.2" /> <id nullFlavor="NA" /> <code codeSystem="local" code="INR" displayName="INR" /> <statusCode code="completed" /> < effectiveTime value="[id number]" /> <value unit="NA" xsi:type="PQ" value="1.0" /> <referenceRange> <observationRange> <text>0.9-1.2</text> </observationRange> </ referenceRange> </observation> </component> </organizer> </entry > <entry> <organizer moodCode="EVN" classCode="BATTERY"> <templateId root="10.29.840.1.100854.10..22.4.1" /> <id nullFlavor="NA" /> <code codeSystem="local" code="LACID" displayName="Lactic Acid Venous" /> < statusCode code="completed" /> <component> <observation moodCode= "EVN" classCode="OBS"> <templateId root="10.29.840.1.960851.10..22.4.2 " /> <id nullFlavor="NA" /> <code codeSystem="local" code= "LACID" displayName="Lactic Acid Venous" /> <statusCode code="completed " /> <effectiveTime value="777609580691" /> <value unit="mEq/L " xsi:type="PQ" value="2.2" /> <interpretationCode codeSystem="local" code="*" /> <referenceRange> <observationRange> <text>0.5-2.0</text> </observationRange> </referenceRange > </observation> </component> </organizer> </entry> <entry> <organizer moodCode="EVN" classCode="BATTERY"> <templateId root= "10.29.840.1.107140.10.20.22.4.1" /> <id nullFlavor="NA" /> <code codeSystem="local" code="TROP" displayName="Troponin" /> <statusCode code= "completed" /> <component> <observation moodCode="EVN" classCode= "OBS"> <templateId root="216.840.1.186557.10.4.2" /> < id nullFlavor="NA" /> <code codeSystem="local" code="TROP" displayName= "Troponin" /> <statusCode code="completed" /> <effectiveTime value="614588309326" /> <value unit="ng/mL" xsi:type="PQ" value="0.09" /> <interpretationCode codeSystem="local" code="" /> < referenceRange> <observationRange> <text><0.06</text > </observationRange> </referenceRange> </observation > </component> </organizer> </entry> <entry> <organizer moodCode= "EVN" classCode="BATTERY"> <templateId root="216.840.1.840789.10.4.1 " /> <id nullFlavor="NA" /> <code codeSystem="local" code="LIPID" displayName="Lipid Panel" /> <statusCode code="completed" /> < component> <observation moodCode="EVN" classCode="OBS"> < templateId root="216.840.1.945379.10.4.2" /> <id nullFlavor="NA " /> <code codeSystem="local" code="CHR" displayName="Cardiac Risk" /> <statusCode code="completed" /> <effectiveTime value= "[id number]" /> <value unit="" xsi:type="PQ" value="3.5" /> <referenceRange> <observationRange> <text>0.0-5.7</text > </observationRange> </referenceRange> </observation > </component> <component> <observation moodCode="EVN" classCode="OBS"> <templateId root="216.840.1.737309.10..22.4.2" /> <id nullFlavor="NA" /> <code codeSystem="local" code="CHOL" displayName="Cholesterol" /> <statusCode code="completed" /> < effectiveTime value="499232793888" /> <value unit="mg/dL" xsi:type="PQ " value="149" /> <referenceRange> <observationRange> <text>0-199</text> </observationRange> </ referenceRange> </observation> </component> <component> <observation moodCode="EVN" classCode="OBS"> <templateId root= "216.840.1.175152.10...4.2" /> <id nullFlavor="NA" /> < code codeSystem="local" code="HDL" displayName="HDL Cholesterol" /> < statusCode code="completed" /> <effectiveTime value="" /> <value unit="mg/dL" xsi:type="PQ" value="43" /> < referenceRange> <observationRange> <text>40-84</text> </observationRange> </referenceRange> </observation> </component> <component> <observation moodCode="EVN" classCode= "OBS"> <templateId root="16.840.1.439545.10...4.2" /> < id nullFlavor="NA" /> <code codeSystem="local" code="LDL" displayName= "LDL Cholesterol" /> <statusCode code="completed" /> < effectiveTime value="[id number]" /> <value unit="mg/dL" xsi:type="PQ " value="73" /> <referenceRange> <observationRange> <text>0-130</text> </observationRange> </ referenceRange> </observation> </component> <component> <observation moodCode="EVN" classCode="OBS"> <templateId root= "16.840.1.978950.10...4.2" /> <id nullFlavor="NA" /> < code codeSystem="local" code="TRIG" displayName="Triglycerides" /> < statusCode code="completed" /> <effectiveTime value="" /> <value unit="mg/dL" xsi:type="PQ" value="165" /> < interpretationCode codeSystem="local" code="*" /> <referenceRange> <observationRange> <text>0-149</text> </ observationRange> </referenceRange> </observation> </ component> <component> <observation moodCode="EVN" classCode="OBS"> <templateId root="10.29.840.1.151733.10..4.2" /> <id nullFlavor="NA" /> <code codeSystem="local" code="VLDL" displayName= "VLDL Cholesterol" /> <statusCode code="completed" /> < effectiveTime value="" /> <value unit="mg/dL" xsi:type="PQ " value="33" /> <interpretationCode codeSystem="local" code="*" /> <referenceRange> <observationRange> <text>0-28</ text> </observationRange> </referenceRange> </ observation> </component> </organizer> </entry> <entry> <organizer moodCode="EVN" classCode="BATTERY"> <templateId root= "10.29.840.1.297011.10..22.4.1" /> <id nullFlavor="NA" /> <code codeSystem="local" code="CBCWD" displayName="CBC With Platelet and Differential " /> <statusCode code="completed" /> <component> <observation moodCode="EVN" classCode="OBS"> <templateId root= "216.840.1.658633.07.02.22.4.2" /> <id nullFlavor="NA" /> < code codeSystem="local" code="ABASR" displayName="Absolute Basophils" /> <statusCode code="completed" /> <effectiveTime value="" /> <value unit="10*3/uL" xsi:type="PQ" value="0.02" /> < referenceRange> <observationRange> <text>0.00-0.20</text > </observationRange> </referenceRange> </observation > </component> <component> <observation moodCode="EVN" classCode="OBS"> <templateId root="10.29.840.1.438983.07.02.224.2" /> <id nullFlavor="NA" /> <code codeSystem="local" code="AEOSR" displayName="Absolute Eosinophils" /> <statusCode code="completed" /> <effectiveTime value="" /> <value unit="10*3/uL" xsi:type="PQ" value="0.15" /> <referenceRange> < observationRange> <text>0.00-0.50</text> </ observationRange> </referenceRange> </observation> </ component> <component> <observation moodCode="EVN" classCode="OBS"> <templateId root="16.840.1.323518.07.02.22.4.2" /> <id nullFlavor="NA" /> <code codeSystem="local" code="ALYMR" displayName= "Absolute Lymphocytes" /> <statusCode code="completed" /> < effectiveTime value="" /> <value unit="10*3/uL" xsi:type= "PQ" value="2.09" /> <referenceRange> <observationRange> <text>0.80-3.30</text> </observationRange> </ referenceRange> </observation> </component> <component> <observation moodCode="EVN" classCode="OBS"> <templateId root= "10.29.840.1.424407.07.02.22.4.2" /> <id nullFlavor="NA" /> < code codeSystem="local" code="AMONR" displayName="Absolute Monocytes" /> <statusCode code="completed" /> <effectiveTime value="" /> <value unit="10*3/uL" xsi:type="PQ" value="1.20" /> < interpretationCode codeSystem="local" code="*" /> <referenceRange> <observationRange> <text>0.30-1.00</text> </ observationRange> </referenceRange> </observation> </ component> <component> <observation moodCode="EVN" classCode="OBS"> <templateId root="10.29.840.1.738847.07.02.22.4.2" /> <id nullFlavor="NA" /> <code codeSystem="local" code="ASEGR" displayName= "Absolute Neutrophils" /> <statusCode code="completed" /> < effectiveTime value="" /> <value unit="10*3/uL" xsi:type= "PQ" value="4.86" /> <referenceRange> <observationRange> <text>1.90-7.00</text> </observationRange> </ referenceRange> </observation> </component> <component> <observation moodCode="EVN" classCode="OBS"> <templateId root= "10.29.840.1.532750.07.02.22.4.2" /> <id nullFlavor="NA" /> < code codeSystem="local" code="BASOR" displayName="Basophils" /> < statusCode code="completed" /> <effectiveTime value="" /> <value unit="%" xsi:type="PQ" value="0" /> <referenceRange > <observationRange> <text>0-2</text> </ observationRange> </referenceRange> </observation> </ component> <component> <observation moodCode="EVN" classCode="OBS"> <templateId root="216.840.1.234789.07.02.22.4.2" /> <id nullFlavor="NA" /> <code codeSystem="local" code="EOSR" displayName= "Eosinophils" /> <statusCode code="completed" /> < effectiveTime value="" /> <value unit="%" xsi:type="PQ " value="2" /> <referenceRange> <observationRange> <text>0-4</text> </observationRange> </referenceRange> </observation> </component> <component> <observation moodCode="EVN" classCode="OBS"> <templateId root= "2.16.840.1.231501.07.02.22.4.2" /> <id nullFlavor="NA" /> < code codeSystem="local" code="HCT" displayName="HCT" /> <statusCode code="completed" /> <effectiveTime value="" /> < value unit="%" xsi:type="PQ" value="37.9" /> <interpretationCode codeSystem="local" code="*" /> <referenceRange> < observationRange> <text>42.0-52.0</text> </ observationRange> </referenceRange> </observation> </ component> <component> <observation moodCode="EVN" classCode="OBS"> <templateId root="2.16.840.1.636632.10..4.2" /> <id nullFlavor="NA" /> <code codeSystem="local" code="HGB" displayName="HGB " /> <statusCode code="completed" /> <effectiveTime value= "" /> <value unit="g/dL" xsi:type="PQ" value="12.5" /> <interpretationCode codeSystem="local" code="*" /> < referenceRange> <observationRange> <text>14.0-18.0</text > </observationRange> </referenceRange> </observation > </component> <component> <observation moodCode="EVN" classCode="OBS"> <templateId root="216.840.1.087411.07.02.224.2" /> <id nullFlavor="NA" /> <code codeSystem="local" code="IMGA" displayName="Immature Granulocytes" /> <statusCode code="completed" /> <effectiveTime value="" /> <value unit="%" xsi:type="PQ" value="1.0" /> <referenceRange> < observationRange> <text>0.0-1.0</text> </ observationRange> </referenceRange> </observation> </ component> <component> <observation moodCode="EVN" classCode="OBS"> <templateId root="216.840.1.551905.07.02.22.4.2" /> <id nullFlavor="NA" /> <code codeSystem="local" code="LYMPR" displayName= "Lymphocytes" /> <statusCode code="completed" /> < effectiveTime value="" /> <value unit="%" xsi:type="PQ " value="25" /> <referenceRange> <observationRange> <text>20-46</text> </observationRange> </ referenceRange> </observation> </component> <component> <observation moodCode="EVN" classCode="OBS"> <templateId root= "216.840.1.386071.10..4.2" /> <id nullFlavor="NA" /> < code codeSystem="local" code="MCH" displayName="MCH" /> <statusCode code="completed" /> <effectiveTime value="" /> < value unit="pg" xsi:type="PQ" value="29.3" /> <referenceRange> <observationRange> <text>27.0-32.0</text> </ observationRange> </referenceRange> </observation> </ component> <component> <observation moodCode="EVN" classCode="OBS"> <templateId root="10.29.840.1.527135...4.2" /> <id nullFlavor="NA" /> <code codeSystem="local" code="MCHC" displayName= "MCHC" /> <statusCode code="completed" /> <effectiveTime value ="" /> <value unit="g/dL" xsi:type="PQ" value="33.0" /> <referenceRange> <observationRange> <text>32.0- 36.0</text> </observationRange> </referenceRange> </ observation> </component> <component> <observation moodCode= "EVN" classCode="OBS"> <templateId root="16.840.1.633740.10.22.4.2 " /> <id nullFlavor="NA" /> <code codeSystem="local" code="MCV " displayName="MCV" /> <statusCode code="completed" /> < effectiveTime value="" /> <value unit="fL" xsi:type="PQ" value="88.8" /> <referenceRange> <observationRange> <text>82.0-99.0</text> </observationRange> </ referenceRange> </observation> </component> <component> <observation moodCode="EVN" classCode="OBS"> <templateId root= "216.840.1.861823.10.20.22.4.2" /> <id nullFlavor="NA" /> < code codeSystem="local" code="MONOR" displayName="Monocytes" /> < statusCode code="completed" /> <effectiveTime value="" /> <value unit="%" xsi:type="PQ" value="14" /> < interpretationCode codeSystem="local" code="*" /> <referenceRange> <observationRange> <text>4-11</text> </ observationRange> </referenceRange> </observation> </ component> <component> <observation moodCode="EVN" classCode="OBS"> <templateId root="16.840.1.760854.10.20.22.4.2" /> <id nullFlavor="NA" /> <code codeSystem="local" code="MPV" displayName="MPV " /> <statusCode code="completed" /> <effectiveTime value= "[id number]" /> <value unit="fL" xsi:type="PQ" value="11.3" /> <referenceRange> <observationRange> <text>9.4-12.3</ text> </observationRange> </referenceRange> </ observation> </component> <component> <observation moodCode= "EVN" classCode="OBS"> <templateId root="216.840.1.982463.10..4.2 " /> <id nullFlavor="NA" /> <code codeSystem="local" code= "SEGR" displayName="Neutrophils" /> <statusCode code="completed" /> <effectiveTime value="" /> <value unit="%" xsi: type="PQ" value="58" /> <referenceRange> <observationRange> <text>51-75</text> </observationRange> </ referenceRange> </observation> </component> <component> <observation moodCode="EVN" classCode="OBS"> <templateId root= "216.840.1.354160.07.02.22.4.2" /> <id nullFlavor="NA" /> < code codeSystem="local" code="NRBCA" displayName="Nucleated RBC Automated" /> <statusCode code="completed" /> <effectiveTime value= "" /> <value unit="/100WBC" xsi:type="PQ" value="0.6" /> <referenceRange> <observationRange> <text /> </observationRange> </referenceRange> </observation> </component> <component> <observation moodCode="EVN" classCode= "OBS"> <templateId root="16.840.1.418037.10.22.4.2" /> < id nullFlavor="NA" /> <code codeSystem="local" code="PLT" displayName= "Platelet Count" /> <statusCode code="completed" /> < effectiveTime value="" /> <value unit="K/uL" xsi:type="PQ" value="123" /> <interpretationCode codeSystem="local" code="*" /> <referenceRange> <observationRange> <text>150-400</ text> </observationRange> </referenceRange> </ observation> </component> <component> <observation moodCode= "EVN" classCode="OBS"> <templateId root="10.29.840.1.418533.10.20.22.4.2 " /> <id nullFlavor="NA" /> <code codeSystem="local" code="RBC " displayName="RBC" /> <statusCode code="completed" /> < effectiveTime value="" /> <value unit="10*6/uL" xsi:type= "PQ" value="4.27" /> <interpretationCode codeSystem="local" code="*" / > <referenceRange> <observationRange> <text> 4.60-6.20</text> </observationRange> </referenceRange> </observation> </component> <component> <observation moodCode="EVN" classCode="OBS"> <templateId root= "10.29.840.1.261128.22.4.2" /> <id nullFlavor="NA" /> < code codeSystem="local" code="RDW" displayName="RDW" /> <statusCode code="completed" /> <effectiveTime value="" /> < value unit="%" xsi:type="PQ" value="15.9" /> <interpretationCode codeSystem="local" code="*" /> <referenceRange> < observationRange> <text>11.5-14.5</text> </ observationRange> </referenceRange> </observation> </ component> <component> <observation moodCode="EVN" classCode="OBS"> <templateId root="10.29.840.1.006364.10.20.22.4.2" /> <id nullFlavor="NA" /> <code codeSystem="local" code="WBCIR" displayName= "WBC" /> <statusCode code="completed" /> <effectiveTime value= "[id number]" /> <value unit="K/uL" xsi:type="PQ" value="8.4" /> <referenceRange> <observationRange> <text>4.8-10.8< /text> </observationRange> </referenceRange> </ observation> </component> </organizer> </entry> <entry> <organizer moodCode="EVN" classCode="BATTERY"> <templateId root= "10.29.840.1.094824.10..22.4.1" /> <id nullFlavor="NA" /> <code codeSystem="local" code="LACID" displayName="Lactic Acid Venous" /> < statusCode code="completed" /> <component> <observation moodCode= "EVN" classCode="OBS"> <templateId root="10.29.840.1.528825.10..22.4.2 " /> <id nullFlavor="NA" /> <code codeSystem="local" code= "LACID" displayName="Lactic Acid Venous" /> <statusCode code="completed " /> <effectiveTime value="[id number]" /> <value unit="mEq/L " xsi:type="PQ" value="3.2" /> <interpretationCode codeSystem="local" code="*" /> <referenceRange> <observationRange> <text>0.5-2.0</text> </observationRange> </referenceRange > </observation> </component> </organizer> </entry> <entry> <organizer moodCode="EVN" classCode="BATTERY"> <templateId root= "10.29.840.1.275390.10..22.4.1" /> <id nullFlavor="NA" /> <code codeSystem="local" code="MG" displayName="Magnesium" /> <statusCode code= "completed" /> <component> <observation moodCode="EVN" classCode= "OBS"> <templateId root="2.16.840.1.049104.10..22.4.2" /> < id nullFlavor="NA" /> <code codeSystem="local" code="MG" displayName= "Magnesium" /> <statusCode code="completed" /> <effectiveTime value="" /> <value unit="mg/dL" xsi:type="PQ" value="2.0" / > <referenceRange> <observationRange> <text>1.8 -2.5</text> </observationRange> </referenceRange> </ observation> </component> </organizer> </entry> <entry> <organizer moodCode="EVN" classCode="BATTERY"> <templateId root= "2.16.840.1.665488.10..22.4.1" /> <id nullFlavor="NA" /> <code codeSystem="local" code="CMP" displayName="Comprehensive Metabolic Panel (CMP)" /> <statusCode code="completed" /> <component> <observation moodCode="EVN" classCode="OBS"> <templateId root= "2.16.840.1.724239.10..22.4.2" /> <id nullFlavor="NA" /> < code codeSystem="local" code="ALB" displayName="Albumin" /> < statusCode code="completed" /> <effectiveTime value="" /> <value unit="g/dL" xsi:type="PQ" value="3.2" /> < interpretationCode codeSystem="local" code="*" /> <referenceRange> <observationRange> <text>3.5-4.8</text> </ observationRange> </referenceRange> </observation> </ component> <component> <observation moodCode="EVN" classCode="OBS"> <templateId root="216.840.1.475732.10..22.4.2" /> <id nullFlavor="NA" /> <code codeSystem="local" code="ALP" displayName= "Alkaline Phosphatase" /> <statusCode code="completed" /> < effectiveTime value="" /> <value unit="U/L" xsi:type="PQ" value="98" /> <referenceRange> <observationRange> <text>26-104</text> </observationRange> </referenceRange > </observation> </component> <component> <observation moodCode="EVN" classCode="OBS"> <templateId root= "16.840.1.870922.10...4.2" /> <id nullFlavor="NA" /> < code codeSystem="local" code="ALT" displayName="ALT (SGPT)" /> < statusCode code="completed" /> <effectiveTime value="" /> <value unit="U/L" xsi:type="PQ" value="66" /> < interpretationCode codeSystem="local" code="*" /> <referenceRange> <observationRange> <text>17-63</text> </ observationRange> </referenceRange> </observation> </ component> <component> <observation moodCode="EVN" classCode="OBS"> <templateId root="16.840.1.003643.10..22.4.2" /> <id nullFlavor="NA" /> <code codeSystem="local" code="AGAP" displayName= "Anion Gap" /> <statusCode code="completed" /> <effectiveTime value="" /> <value unit="mEq/L" xsi:type="PQ" value="7" /> <referenceRange> <observationRange> <text>3-20 </text> </observationRange> </referenceRange> </ observation> </component> <component> <observation moodCode= "EVN" classCode="OBS"> <templateId root="10.29.840.1.339299.10.20.22.4.2 " /> <id nullFlavor="NA" /> <code codeSystem="local" code="AST " displayName="AST (SGOT)" /> <statusCode code="completed" /> <effectiveTime value="" /> <value unit="U/L" xsi:type="PQ" value="115" /> <interpretationCode codeSystem="local" code="*" /> <referenceRange> <observationRange> <text>15-41</ text> </observationRange> </referenceRange> </ observation> </component> <component> <observation moodCode= "EVN" classCode="OBS"> <templateId root="10.29.840.1.029020..4.2 " /> <id nullFlavor="NA" /> <code codeSystem="local" code= "BILIT" displayName="Bilirubin Total" /> <statusCode code="completed" / > <effectiveTime value="" /> <value unit="mg/dL" xsi:type="PQ" value="0.7" /> <referenceRange> < observationRange> <text>0.2-1.2</text> </ observationRange> </referenceRange> </observation> </ component> <component> <observation moodCode="EVN" classCode="OBS"> <templateId root="10.29.840.1.063287.10..22.4.2" /> <id nullFlavor="NA" /> <code codeSystem="local" code="BUN" displayName="BUN " /> <statusCode code="completed" /> <effectiveTime value= "" /> <value unit="mg/dL" xsi:type="PQ" value="25" /> <interpretationCode codeSystem="local" code="*" /> <referenceRange > <observationRange> <text>4-20</text> </ observationRange> </referenceRange> </observation> </ component> <component> <observation moodCode="EVN" classCode="OBS"> <templateId root="216.840.1.602675.10..22.4.2" /> <id nullFlavor="NA" /> <code codeSystem="local" code="CA" displayName= "Calcium" /> <statusCode code="completed" /> <effectiveTime value="" /> <value unit="mg/dL" xsi:type="PQ" value="8.3" / > <interpretationCode codeSystem="local" code="*" /> < referenceRange> <observationRange> <text>8.6-10.0</text > </observationRange> </referenceRange> </observation > </component> <component> <observation moodCode="EVN" classCode="OBS"> <templateId root="216.840.1.602734.10..22.4.2" /> <id nullFlavor="NA" /> <code codeSystem="local" code="CL" displayName="Chloride" /> <statusCode code="completed" /> < effectiveTime value="" /> <value unit="mEq/L" xsi:type="PQ " value="106" /> <referenceRange> <observationRange> <text>99-109</text> </observationRange> </ referenceRange> </observation> </component> <component> <observation moodCode="EVN" classCode="OBS"> <templateId root= "10.29.840.1.807964.10..22.4.2" /> <id nullFlavor="NA" /> < code codeSystem="local" code="CO2" displayName="CO2" /> <statusCode code="completed" /> <effectiveTime value="" /> < value unit="mEq/L" xsi:type="PQ" value="21" /> <interpretationCode codeSystem="local" code="*" /> <referenceRange> < observationRange> <text>22-32</text> </observationRange > </referenceRange> </observation> </component> < component> <observation moodCode="EVN" classCode="OBS"> < templateId root="840.1.553238.10.4.2" /> <id nullFlavor="NA " /> <code codeSystem="local" code="CREAT" displayName="Creatinine" /> <statusCode code="completed" /> <effectiveTime value= "" /> <value unit="mg/dL" xsi:type="PQ" value="1.32" /> <interpretationCode codeSystem="local" code="*" /> < referenceRange> <observationRange> <text>0.64-1.27</text > </observationRange> </referenceRange> </observation > </component> <component> <observation moodCode="EVN" classCode="OBS"> <templateId root="10.29.840.1.522246.10.2022.4.2" /> <id nullFlavor="NA" /> <code codeSystem="local" code="GLOB" displayName="Globulin" /> <statusCode code="completed" /> < effectiveTime value="[id number]" /> <value unit="g/dL" xsi:type="PQ" value="3.4" /> <referenceRange> <observationRange> <text>1.9-4.3</text> </observationRange> </ referenceRange> </observation> </component> <component> <observation moodCode="EVN" classCode="OBS"> <templateId root= "840.1.377879.10.20.22.4.2" /> <id nullFlavor="NA" /> < code codeSystem="local" code="GLU" displayName="Glucose" /> < statusCode code="completed" /> <effectiveTime value="" /> <value unit="mg/dL" xsi:type="PQ" value="98" /> < referenceRange> <observationRange> <text>70-100</text> </observationRange> </referenceRange> </observation> </component> <component> <observation moodCode="EVN" classCode ="OBS"> <templateId root="840.1.169970.10..4.2" /> < id nullFlavor="NA" /> <code codeSystem="local" code="K" displayName= "Potassium" /> <statusCode code="completed" /> <effectiveTime value="" /> <value unit="mEq/L" xsi:type="PQ" value="5.5" / > <interpretationCode codeSystem="local" code="*" /> < referenceRange> <observationRange> <text>3.6-5.1</text> </observationRange> </referenceRange> </observation > </component> <component> <observation moodCode="EVN" classCode="OBS"> <templateId root="840.1.717967.10.20.22.4.2" /> <id nullFlavor="NA" /> <code codeSystem="local" code="TP" displayName="Protein" /> <statusCode code="completed" /> < effectiveTime value="" /> <value unit="g/dL" xsi:type="PQ" value="6.6" /> <referenceRange> <observationRange> <text>6.1-7.9</text> </observationRange> </ referenceRange> </observation> </component> <component> <observation moodCode="EVN" classCode="OBS"> <templateId root= "840.1.884695.07.02.22.4.2" /> <id nullFlavor="NA" /> < code codeSystem="local" code="NA" displayName="Sodium" /> <statusCode code="completed" /> <effectiveTime value="" /> < value unit="mEq/L" xsi:type="PQ" value="134" /> <interpretationCode codeSystem="local" code="*" /> <referenceRange> < observationRange> <text>136-144</text> </ observationRange> </referenceRange> </observation> </ component> </organizer> </entry> <entry> <organizer moodCode="EVN" classCode="BATTERY"> <templateId root="840.1.015148.07.02.22.4.1" /> <id nullFlavor="NA" /> <code codeSystem="local" code="GFR" displayName ="eGFR" /> <statusCode code="completed" /> <component> < observation moodCode="EVN" classCode="OBS"> <templateId root= "840.1.066092.22.4.2" /> <id nullFlavor="NA" /> < code codeSystem="local" code="GFR" displayName="eGFR" /> <statusCode code="completed" /> <effectiveTime value="[id number]" /> < value unit="mL/min" xsi:type="PQ" value="58" /> <interpretationCode codeSystem="local" code="*" /> <referenceRange> < observationRange> <text>>60</text> </observationRange > </referenceRange> </observation> </component> </ organizer> </entry> <entry> <organizer moodCode="EVN" classCode="BATTERY"> <templateId root="16.840.1.951403.10..22.4.1" /> <id nullFlavor= "NA" /> <code codeSystem="local" code="TROP" displayName="Troponin" /> <statusCode code="completed" /> <component> <observation moodCode= "EVN" classCode="OBS"> <templateId root="16.840.1.120354.10...4.2 " /> <id nullFlavor="NA" /> <code codeSystem="local" code= "TROP" displayName="Troponin" /> <statusCode code="completed" /> <effectiveTime value="309528665133" /> <value unit="ng/mL" xsi:type ="PQ" value="0.23" /> <interpretationCode codeSystem="local" code="" /> <referenceRange> <observationRange> <text>& lt;0.06</text> </observationRange> </referenceRange> </observation> </component> </organizer> </entry> <entry> < organizer moodCode="EVN" classCode="BATTERY"> <templateId root= "16.840.1.804525.10...4.1" /> <id nullFlavor="NA" /> <code codeSystem="local" code="BNP" displayName="B-Type Natriuretic Peptide" /> < statusCode code="completed" /> <component> <observation moodCode= "EVN" classCode="OBS"> <templateId root="2.16.840.1.552581.10..22.4.2 " /> <id nullFlavor="NA" /> <code codeSystem="local" code="BNP " displayName="B-Type Natriuretic Peptide" /> <statusCode code= "completed" /> <effectiveTime value="" /> <value unit="pg/mL" xsi:type="PQ" value="1880" /> <interpretationCode codeSystem="local" code="*" /> <referenceRange> < observationRange> <text>0-99</text> </observationRange> </referenceRange> </observation> </component> </ organizer> </entry> <entry> <organizer moodCode="EVN" classCode="BATTERY"> <templateId root="2.16.840.1.339393.10..22.4.1" /> <id nullFlavor= "NA" /> <code codeSystem="local" code="UDRGH" displayName="Urine Drug Screen" /> <statusCode code="completed" /> <component> < observation moodCode="EVN" classCode="OBS"> <templateId root= "2.16.840.1.878168.10..22.4.2" /> <id nullFlavor="NA" /> < code codeSystem="local" code="UAMP1" displayName="Amph/Meth/Ecstasy" /> <statusCode code="completed" /> <effectiveTime value="[id number]" / > <value unit="NA" xsi:type="PQ" value="Positive" /> < interpretationCode codeSystem="local" code="*" /> <referenceRange> <observationRange> <text /> </observationRange> </referenceRange> </observation> </component> < component> <observation moodCode="EVN" classCode="OBS"> < templateId root="216.840.1.997203.10..4.2" /> <id nullFlavor="NA " /> <code codeSystem="local" code="UBAR1" displayName="Barbiturates" / > <statusCode code="completed" /> <effectiveTime value= "" /> <value unit="NA" xsi:type="PQ" value="Negative" /> <referenceRange> <observationRange> <text /> </observationRange> </referenceRange> </observation> </component> <component> <observation moodCode="EVN" classCode= "OBS"> <templateId root="216.840.1.423838...4.2" /> < id nullFlavor="NA" /> <code codeSystem="local" code="UBEN1" displayName ="Benzodiazepine" /> <statusCode code="completed" /> < effectiveTime value="" /> <value unit="NA" xsi:type="PQ" value="Negative" /> <referenceRange> <observationRange> <text /> </observationRange> </referenceRange> </observation> </component> <component> <observation moodCode="EVN" classCode="OBS"> <templateId root= "16.840.1.383396.07.02.22.4.2" /> <id nullFlavor="NA" /> < code codeSystem="local" code="UCAN1" displayName="Cannabinoid" /> < statusCode code="completed" /> <effectiveTime value="" /> <value unit="NA" xsi:type="PQ" value="Negative" /> < referenceRange> <observationRange> <text /> < /observationRange> </referenceRange> </observation> </ component> <component> <observation moodCode="EVN" classCode="OBS"> <templateId root="216.840.1.431037.10.4.2" /> <id nullFlavor="NA" /> <code codeSystem="local" code="UCOC1" displayName= "Cocaine" /> <statusCode code="completed" /> <effectiveTime value="" /> <value unit="NA" xsi:type="PQ" value="Negative " /> <referenceRange> <observationRange> <text /> </observationRange> </referenceRange> </ observation> </component> <component> <observation moodCode= "EVN" classCode="OBS"> <templateId root="216.840.1.949981.07.02.22.4.2 " /> <id nullFlavor="NA" /> <code codeSystem="local" code= "UMTD1" displayName="EDDP (Methadone met.)" /> <statusCode code= "completed" /> <effectiveTime value="" /> <value unit="NA" xsi:type="PQ" value="Negative" /> <referenceRange> <observationRange> <text /> </observationRange> </referenceRange> </observation> </component> <component> <observation moodCode="EVN" classCode="OBS"> <templateId root= "16.840.1.277650.10.22.4.2" /> <id nullFlavor="NA" /> < code codeSystem="local" code="UOPI1" displayName="Opiate" /> < statusCode code="completed" /> <effectiveTime value="" /> <value unit="NA" xsi:type="PQ" value="Positive" /> < interpretationCode codeSystem="local" code="*" /> <referenceRange> <observationRange> <text /> </observationRange> </referenceRange> </observation> </component> < component> <observation moodCode="EVN" classCode="OBS"> < templateId root="16.840.1.401194.10..22.4.2" /> <id nullFlavor="NA " /> <code codeSystem="local" code="UPCP1" displayName="Phencyclidine ( PCP)" /> <statusCode code="completed" /> <effectiveTime value= "[id number]" /> <value unit="NA" xsi:type="PQ" value="Negative" /> <referenceRange> <observationRange> <text /> </observationRange> </referenceRange> </observation> </component> </organizer> </entry> <entry> <organizer moodCode="EVN " classCode="BATTERY"> <templateId root="216.840.1.847718.10..22.4.1" / > <id nullFlavor="NA" /> <code codeSystem="local" code="TROP" displayName="Troponin" /> <statusCode code="completed" /> <component> <observation moodCode="EVN" classCode="OBS"> <templateId root= "216.840.1.392022.10..22.4.2" /> <id nullFlavor="NA" /> < code codeSystem="local" code="TROP" displayName="Troponin" /> < statusCode code="completed" /> <effectiveTime value="[id number]" /> <value unit="ng/mL" xsi:type="PQ" value="0.46" /> < interpretationCode codeSystem="local" code="" /> <referenceRange> <observationRange> <text><0.06</text> </ observationRange> </referenceRange> </observation> </ component> </organizer> </entry> <entry> <organizer moodCode="EVN" classCode="BATTERY"> <templateId root="216.840.1.398159.10..4.1" /> <id nullFlavor="NA" /> <code codeSystem="local" code="ABGRT" displayName="Blood Gases, Arterial (RT)" /> <statusCode code="completed" / > <component> <observation moodCode="EVN" classCode="OBS"> <templateId root="216.840.1.440439.10..4.2" /> <id nullFlavor="NA " /> <code codeSystem="local" code="YNES" displayName="Arterial Base Excess" /> <statusCode code="completed" /> <effectiveTime value="" /> <value unit="NA" xsi:type="PQ" value="-7" /> <interpretationCode codeSystem="local" code="*" /> < referenceRange> <observationRange> <text>0-2</text> </observationRange> </referenceRange> </observation> </component> <component> <observation moodCode="EVN" classCode= "OBS"> <templateId root="216.840.1.178518...4.2" /> < id nullFlavor="NA" /> <code codeSystem="local" code="AHCO3" displayName ="Arterial Bicarbonate" /> <statusCode code="completed" /> < effectiveTime value="" /> <value unit="mEq/L" xsi:type="PQ " value="15" /> <interpretationCode codeSystem="local" code="*" /> <referenceRange> <observationRange> <text>22-26</ text> </observationRange> </referenceRange> </ observation> </component> <component> <observation moodCode= "EVN" classCode="OBS"> <templateId root="216.840.1.769163.10.20.22.4.2 " /> <id nullFlavor="NA" /> <code codeSystem="local" code= "AOSAT" displayName="Arterial O2 Saturation" /> <statusCode code= "completed" /> <effectiveTime value="" /> <value unit="%" xsi:type="PQ" value="90.0" /> <referenceRange> <observationRange> <text>90.0-97.0</text> </ observationRange> </referenceRange> </observation> </ component> <component> <observation moodCode="EVN" classCode="OBS"> <templateId root="216.840.1.626633.07.02.22.4.2" /> <id nullFlavor="NA" /> <code codeSystem="local" code="APCO2" displayName= "Arterial PCO2" /> <statusCode code="completed" /> < effectiveTime value="869836674273" /> <value unit="mmHg" xsi:type="PQ" value="23" /> <interpretationCode codeSystem="local" code="*" /> <referenceRange> <observationRange> <text>35-45</ text> </observationRange> </referenceRange> </ observation> </component> <component> <observation moodCode= "EVN" classCode="OBS"> <templateId root="216.840.1.395440.10.2022.4.2 " /> <id nullFlavor="NA" /> <code codeSystem="local" code="APH " displayName="Arterial PH" /> <statusCode code="completed" /> <effectiveTime value="896945662394" /> <value unit="NA" xsi:type="PQ " value="7.43" /> <referenceRange> <observationRange> <text>7.35-7.45</text> </observationRange> </ referenceRange> </observation> </component> <component> <observation moodCode="EVN" classCode="OBS"> <templateId root= "216.840.1.493583.10..4.2" /> <id nullFlavor="NA" /> < code codeSystem="local" code="APO2" displayName="Arterial PO2" /> < statusCode code="completed" /> <effectiveTime value="028405578056" /> <value unit="mmHg" xsi:type="PQ" value="58" /> < interpretationCode codeSystem="local" code="*" /> <referenceRange> <observationRange> <text>80-100</text> </ observationRange> </referenceRange> </observation> </ component> <component> <observation moodCode="EVN" classCode="OBS"> <templateId root="10.29.840.1.782048.07.02.22.4.2" /> <id nullFlavor="NA" /> <code codeSystem="local" code="AFLOW" displayName= "Arterial LPM" /> <statusCode code="completed" /> < effectiveTime value="030042993815" /> <value unit="L/min" xsi:type="PQ " value="8.00" /> <referenceRange> <observationRange> <text /> </observationRange> </referenceRange> </observation> </component> <component> <observation moodCode="EVN" classCode="OBS"> <templateId root= "10.29.840.1.354382.10..22.4.2" /> <id nullFlavor="NA" /> < code codeSystem="local" code="AO2PN" displayName="O2 Panel" /> < statusCode code="completed" /> <effectiveTime value="187521902428" /> <value unit="" xsi:type="PQ" value="SEE BELOW" /> < referenceRange> <observationRange> <text /> < /observationRange> </referenceRange> </observation> </ component> </organizer> </entry> <entry> <organizer moodCode="EVN" classCode="BATTERY"> <templateId root="10.29.840.1.854195.10..22.4.1" /> <id nullFlavor="NA" /> <code codeSystem="local" code="LACID" displayName="Lactic Acid Venous" /> <statusCode code="completed" /> < component> <observation moodCode="EVN" classCode="OBS"> < templateId root="10.29.840.1.785887.10..22.4.2" /> <id nullFlavor="NA " /> <code codeSystem="local" code="LACID" displayName="Lactic Acid Venous" /> <statusCode code="completed" /> <effectiveTime value="[id number]" /> <value unit="mEq/L" xsi:type="PQ" value="3.8" / > <interpretationCode codeSystem="local" code="*" /> < referenceRange> <observationRange> <text>0.5-2.0</text> </observationRange> </referenceRange> </observation > </component> </organizer> </entry> <entry> <organizer moodCode= "EVN" classCode="BATTERY"> <templateId root="10.29.840.1.329917.10.20.22.4.1 " /> <id nullFlavor="NA" /> <code codeSystem="local" code="BMP" displayName="Basic Metabolic Panel (BMP)" /> <statusCode code="completed" / > <component> <observation moodCode="EVN" classCode="OBS"> <templateId root="216.840.1.705260.10.4.2" /> <id nullFlavor="NA " /> <code codeSystem="local" code="AGAP" displayName="Anion Gap" /> <statusCode code="completed" /> <effectiveTime value= "" /> <value unit="mEq/L" xsi:type="PQ" value="13" /> <referenceRange> <observationRange> <text>3-20</ text> </observationRange> </referenceRange> </ observation> </component> <component> <observation moodCode= "EVN" classCode="OBS"> <templateId root="10.29.840.1.458688.07.02.22.4.2 " /> <id nullFlavor="NA" /> <code codeSystem="local" code="BUN " displayName="BUN" /> <statusCode code="completed" /> < effectiveTime value="" /> <value unit="mg/dL" xsi:type="PQ " value="30" /> <interpretationCode codeSystem="local" code="*" /> <referenceRange> <observationRange> <text>4-20</ text> </observationRange> </referenceRange> </ observation> </component> <component> <observation moodCode= "EVN" classCode="OBS"> <templateId root="10.29.840.1.372566..22.4.2 " /> <id nullFlavor="NA" /> <code codeSystem="local" code="CA " displayName="Calcium" /> <statusCode code="completed" /> < effectiveTime value="" /> <value unit="mg/dL" xsi:type="PQ " value="8.0" /> <interpretationCode codeSystem="local" code="*" /> <referenceRange> <observationRange> <text>8.6- 10.0</text> </observationRange> </referenceRange> </ observation> </component> <component> <observation moodCode= "EVN" classCode="OBS"> <templateId root="16.840.1.815817.07.02.22.4.2 " /> <id nullFlavor="NA" /> <code codeSystem="local" code="CL " displayName="Chloride" /> <statusCode code="completed" /> < effectiveTime value="" /> <value unit="mEq/L" xsi:type="PQ " value="104" /> <referenceRange> <observationRange> <text>99-109</text> </observationRange> </ referenceRange> </observation> </component> <component> <observation moodCode="EVN" classCode="OBS"> <templateId root= "10.29.840.1.848438.07.02.22.4.2" /> <id nullFlavor="NA" /> < code codeSystem="local" code="CO2" displayName="CO2" /> <statusCode code="completed" /> <effectiveTime value="" /> < value unit="mEq/L" xsi:type="PQ" value="17" /> <interpretationCode codeSystem="local" code="*" /> <referenceRange> < observationRange> <text>22-32</text> </observationRange > </referenceRange> </observation> </component> < component> <observation moodCode="EVN" classCode="OBS"> < templateId root="16.840.1.442776.22.4.2" /> <id nullFlavor="NA " /> <code codeSystem="local" code="CREAT" displayName="Creatinine" /> <statusCode code="completed" /> <effectiveTime value= "" /> <value unit="mg/dL" xsi:type="PQ" value="1.47" /> <interpretationCode codeSystem="local" code="*" /> < referenceRange> <observationRange> <text>0.64-1.27</text > </observationRange> </referenceRange> </observation > </component> <component> <observation moodCode="EVN" classCode="OBS"> <templateId root="2.16.840.1.857551.07.02.224.2" /> <id nullFlavor="NA" /> <code codeSystem="local" code="GLU" displayName="Glucose" /> <statusCode code="completed" /> < effectiveTime value="" /> <value unit="mg/dL" xsi:type="PQ " value="70" /> <referenceRange> <observationRange> <text>70-100</text> </observationRange> </ referenceRange> </observation> </component> <component> <observation moodCode="EVN" classCode="OBS"> <templateId root= "216.840.1.249807.10.4.2" /> <id nullFlavor="NA" /> < code codeSystem="local" code="K" displayName="Potassium" /> < statusCode code="completed" /> <effectiveTime value="" /> <value unit="mEq/L" xsi:type="PQ" value="6.2" /> < interpretationCode codeSystem="local" code="" /> <referenceRange> <observationRange> <text>3.6-5.1</text> </ observationRange> </referenceRange> </observation> </ component> <component> <observation moodCode="EVN" classCode="OBS"> <templateId root="2.16.840.1.814788.10.4.2" /> <id nullFlavor="NA" /> <code codeSystem="local" code="NA" displayName= "Sodium" /> <statusCode code="completed" /> <effectiveTime value="" /> <value unit="mEq/L" xsi:type="PQ" value="134" / > <interpretationCode codeSystem="local" code="*" /> < referenceRange> <observationRange> <text>136-144</text> </observationRange> </referenceRange> </observation > </component> </organizer> </entry> <entry> <organizer moodCode= "EVN" classCode="BATTERY"> <templateId root="2.16.840.1.349636.10..4.1 " /> <id nullFlavor="NA" /> <code codeSystem="local" code="GFR" displayName="eGFR" /> <statusCode code="completed" /> <component> <observation moodCode="EVN" classCode="OBS"> <templateId root= "2.16.840.1.456503.10...4.2" /> <id nullFlavor="NA" /> < code codeSystem="local" code="GFR" displayName="eGFR" /> <statusCode code="completed" /> <effectiveTime value="" /> < value unit="mL/min" xsi:type="PQ" value="51" /> <interpretationCode codeSystem="local" code="*" /> <referenceRange> < observationRange> <text>>60</text> </observationRange > </referenceRange> </observation> </component> </ organizer> </entry> <entry> <organizer moodCode="EVN" classCode="BATTERY"> <templateId root="10.29.840.1.979392.07.02.22.4.1" /> <id nullFlavor= "NA" /> <code codeSystem="local" code="GLUN" displayName="Glucose NPT" /> <statusCode code="completed" /> <component> <observation moodCode="EVN" classCode="OBS"> <templateId root= "840.1.353476.07.02.224.2" /> <id nullFlavor="NA" /> < code codeSystem="local" code="GLUN" displayName="Glucose NPT" /> < statusCode code="completed" /> <effectiveTime value="561728937213" /> <value unit="mg/dL" xsi:type="PQ" value="47" /> < interpretationCode codeSystem="local" code="*" /> <referenceRange> <observationRange> <text>70-100</text> </ observationRange> </referenceRange> </observation> </ component> </organizer> </entry> <entry> <organizer moodCode="EVN" classCode="BATTERY"> <templateId root="840.1.843154.07.02.22.4.1" /> <id nullFlavor="NA" /> <code codeSystem="local" code="GLUN" displayName="Glucose NPT" /> <statusCode code="completed" /> < component> <observation moodCode="EVN" classCode="OBS"> < templateId root="10.29.840.1.697803.07.02.22.4.2" /> <id nullFlavor="NA " /> <code codeSystem="local" code="GLUN" displayName="Glucose NPT" / > <statusCode code="completed" /> <effectiveTime value= "" /> <value unit="mg/dL" xsi:type="PQ" value="43" /> <interpretationCode codeSystem="local" code="*" /> <referenceRange > <observationRange> <text>70-100</text> </ observationRange> </referenceRange> </observation> </ component> </organizer> </entry> <entry> <organizer moodCode="EVN" classCode="BATTERY"> <templateId root="16.840.1.819555.10..22.4.1" /> <id nullFlavor="NA" /> <code codeSystem="local" code="GLUN" displayName="Glucose NPT" /> <statusCode code="completed" /> < component> <observation moodCode="EVN" classCode="OBS"> < templateId root="16.840.1.109773.10..22.4.2" /> <id nullFlavor="NA " /> <code codeSystem="local" code="GLUN" displayName="Glucose NPT" / > <statusCode code="completed" /> <effectiveTime value= "444048989480" /> <value unit="mg/dL" xsi:type="PQ" value="67" /> <interpretationCode codeSystem="local" code="*" /> <referenceRange > <observationRange> <text>70-100</text> </ observationRange> </referenceRange> </observation> </ component> </organizer> </entry> <entry> <organizer moodCode="EVN" classCode="BATTERY"> <templateId root="10.29.840.1.455948.10.20.22.4.1" /> <id nullFlavor="NA" /> <code codeSystem="local" code="GLUN" displayName="Glucose NPT" /> <statusCode code="completed" /> < component> <observation moodCode="EVN" classCode="OBS"> < templateId root="216.840.1.107996.10.22.4.2" /> <id nullFlavor="NA " /> <code codeSystem="local" code="GLUN" displayName="Glucose NPT" / > <statusCode code="completed" /> <effectiveTime value= "" /> <value unit="mg/dL" xsi:type="PQ" value="97" /> <referenceRange> <observationRange> <text>70-100</ text> </observationRange> </referenceRange> </ observation> </component> </organizer> </entry> <entry> <organizer moodCode="EVN" classCode="BATTERY"> <templateId root= "216.840.1.137145.1022.4.1" /> <id nullFlavor="NA" /> <code codeSystem="local" code="UA" displayName="Urinalysis with reflex microscopic" / > <statusCode code="completed" /> <component> <observation moodCode="EVN" classCode="OBS"> <templateId root= "2.16.840.1.459084.10..22.4.2" /> <id nullFlavor="NA" /> < code codeSystem="local" code="UAPP" displayName="Appearance" /> < statusCode code="completed" /> <effectiveTime value="367899936035" /> <value unit="NA" xsi:type="PQ" value="Cloudy" /> < interpretationCode codeSystem="local" code="*" /> <referenceRange> <observationRange> <text /> </observationRange> </referenceRange> </observation> </component> < component> <observation moodCode="EVN" classCode="OBS"> < templateId root="16.840.1.055994.10...4.2" /> <id nullFlavor="NA " /> <code codeSystem="local" code="UBIL" displayName="Bilirubin" /> <statusCode code="completed" /> <effectiveTime value= "" /> <value unit="NA" xsi:type="PQ" value="Negative" /> <referenceRange> <observationRange> <text> Negative</text> </observationRange> </referenceRange> </observation> </component> <component> <observation moodCode ="EVN" classCode="OBS"> <templateId root= "16.840.1.753443.10..4.2" /> <id nullFlavor="NA" /> < code codeSystem="local" code="UBLD" displayName="Blood" /> <statusCode code="completed" /> <effectiveTime value="" /> < value unit="NA" xsi:type="PQ" value="Pos 1+" /> <interpretationCode codeSystem="local" code="*" /> <referenceRange> < observationRange> <text>Negative</text> </ observationRange> </referenceRange> </observation> </ component> <component> <observation moodCode="EVN" classCode="OBS"> <templateId root="16.840.1.652048.10...4.2" /> <id nullFlavor="NA" /> <code codeSystem="local" code="UCOLR" displayName= "Color" /> <statusCode code="completed" /> <effectiveTime value="" /> <value unit="NA" xsi:type="PQ" value="Yellow" / > <referenceRange> <observationRange> <text /> </observationRange> </referenceRange> </observation > </component> <component> <observation moodCode="EVN" classCode="OBS"> <templateId root="216.840.1.867098.10.4.2" /> <id nullFlavor="NA" /> <code codeSystem="local" code="UGLU" displayName="Glucose, Urine" /> <statusCode code="completed" /> <effectiveTime value="" /> <value unit="" xsi:type="PQ" value="Pos 1+" /> <interpretationCode codeSystem="local" code="*" /> <referenceRange> <observationRange> <text> Negative</text> </observationRange> </referenceRange> </observation> </component> <component> <observation moodCode ="EVN" classCode="OBS"> <templateId root= "10.29.840.1.275206.07.02.22.4.2" /> <id nullFlavor="NA" /> < code codeSystem="local" code="UKET" displayName="Ketones" /> < statusCode code="completed" /> <effectiveTime value="" /> <value unit="" xsi:type="PQ" value="Negative" /> < referenceRange> <observationRange> <text>Negative</text > </observationRange> </referenceRange> </observation > </component> <component> <observation moodCode="EVN" classCode="OBS"> <templateId root="16.840.1.322599.07.02.22.4.2" /> <id nullFlavor="NA" /> <code codeSystem="local" code="ULEU" displayName="Leukocyte Esterase" /> <statusCode code="completed" /> <effectiveTime value="" /> <value unit="NA" xsi:type ="PQ" value="Negative" /> <referenceRange> <observationRange > <text>Negative</text> </observationRange> </ referenceRange> </observation> </component> <component> <observation moodCode="EVN" classCode="OBS"> <templateId root= "10.29.840.1.606110.10.4.2" /> <id nullFlavor="NA" /> < code codeSystem="local" code="UNIT" displayName="Nitrites" /> < statusCode code="completed" /> <effectiveTime value="" /> <value unit="NA" xsi:type="PQ" value="Negative" /> < referenceRange> <observationRange> <text>Negative</text > </observationRange> </referenceRange> </observation > </component> <component> <observation moodCode="EVN" classCode="OBS"> <templateId root="10.29.840.1.568211.07.02.22.4.2" /> <id nullFlavor="NA" /> <code codeSystem="local" code="UPH" displayName="pH" /> <statusCode code="completed" /> < effectiveTime value="" /> <value unit="NA" xsi:type="PQ" value="5.0" /> <referenceRange> <observationRange> <text>5.0-8.0</text> </observationRange> </ referenceRange> </observation> </component> <component> <observation moodCode="EVN" classCode="OBS"> <templateId root= "10.29.840.1.709845.10.4.2" /> <id nullFlavor="NA" /> < code codeSystem="local" code="UPRO" displayName="Protein" /> < statusCode code="completed" /> <effectiveTime value="" /> <value unit="NA" xsi:type="PQ" value="Pos 2+" /> < interpretationCode codeSystem="local" code="*" /> <referenceRange> <observationRange> <text>Negative</text> </ observationRange> </referenceRange> </observation> </ component> <component> <observation moodCode="EVN" classCode="OBS"> <templateId root="10.29.840.1.801802.07.02.22.4.2" /> <id nullFlavor="NA" /> <code codeSystem="local" code="USPG" displayName= "Specific [place]" /> <statusCode code="completed" /> < effectiveTime value="" /> <value unit="NA" xsi:type="PQ" value="1.020" /> <referenceRange> <observationRange> <text>1.003-1.030</text> </observationRange> </ referenceRange> </observation> </component> <component> <observation moodCode="EVN" classCode="OBS"> <templateId root= "840.1.022353.07.02.22.4.2" /> <id nullFlavor="NA" /> < code codeSystem="local" code="UTYP" displayName="UA Collection type" /> <statusCode code="completed" /> <effectiveTime value="136569172457" / > <value unit="NA" xsi:type="PQ" value="Clean Catch" /> < referenceRange> <observationRange> <text /> < /observationRange> </referenceRange> </observation> </ component> <component> <observation moodCode="EVN" classCode="OBS"> <templateId root="10.29.840.1.029477.07.02.22.4.2" /> <id nullFlavor="NA" /> <code codeSystem="local" code="UURO" displayName= "Urobilinogen" /> <statusCode code="completed" /> < effectiveTime value="471835294338" /> <value unit="mg/dL" xsi:type="PQ " value="4.0" /> <referenceRange> <observationRange> <text><1.0</text> </observationRange> </ referenceRange> </observation> </component> </organizer> </entry > <entry> <organizer moodCode="EVN" classCode="BATTERY"> <templateId root="16.840.1.066485.10...4.1" /> <id nullFlavor="NA" /> <code codeSystem="local" code="UMIC" displayName="Urine Microscopic" /> < statusCode code="completed" /> <component> <observation moodCode= "EVN" classCode="OBS"> <templateId root="16.840.1.066830.10...4.2 " /> <id nullFlavor="NA" /> <code codeSystem="local" code= "UBAC" displayName="Bacteria" /> <statusCode code="completed" /> <effectiveTime value="705412299482" /> <value unit="NA" xsi:type= "PQ" value="Rare" /> <referenceRange> <observationRange> <text /> </observationRange> </referenceRange> </observation> </component> <component> <observation moodCode="EVN" classCode="OBS"> <templateId root= "16.840.1.237661.07.02.22.4.2" /> <id nullFlavor="NA" /> < code codeSystem="local" code="UEPI" displayName="Epithelial Cells" /> < statusCode code="completed" /> <effectiveTime value="" /> <value unit="/HPF" xsi:type="PQ" value="0" /> <referenceRange > <observationRange> <text /> </ observationRange> </referenceRange> </observation> </ component> <component> <observation moodCode="EVN" classCode="OBS"> <templateId root="216.840.1.714598.07.02.22.4.2" /> <id nullFlavor="NA" /> <code codeSystem="local" code="UHCST" displayName= "Hyaline Casts" /> <statusCode code="completed" /> < effectiveTime value="" /> <value unit="/LPF" xsi:type="PQ" value="4" /> <interpretationCode codeSystem="local" code="*" /> <referenceRange> <observationRange> <text>0-3</text> </observationRange> </referenceRange> </observation > </component> <component> <observation moodCode="EVN" classCode="OBS"> <templateId root="10.29.840.1.724221.07.02.22.4.2" /> <id nullFlavor="NA" /> <code codeSystem="local" code="URBC" displayName="RBC, Urine" /> <statusCode code="completed" /> < effectiveTime value="" /> <value unit="/HPF" xsi:type="PQ" value="2" /> <referenceRange> <observationRange> <text>0-2</text> </observationRange> </referenceRange> </observation> </component> <component> <observation moodCode="EVN" classCode="OBS"> <templateId root= "216.840.1.625357.07.02.22.4.2" /> <id nullFlavor="NA" /> < code codeSystem="local" code="UMUC" displayName="Urine Mucus" /> < statusCode code="completed" /> <effectiveTime value="" /> <value unit="NA" xsi:type="PQ" value="Present" /> < referenceRange> <observationRange> <text /> < /observationRange> </referenceRange> </observation> </ component> <component> <observation moodCode="EVN" classCode="OBS"> <templateId root="16.840.1.880289.104.2" /> <id nullFlavor="NA" /> <code codeSystem="local" code="UWBC" displayName= "WBC, Urine" /> <statusCode code="completed" /> < effectiveTime value="" /> <value unit="/HPF" xsi:type="PQ" value="0" /> <referenceRange> <observationRange> <text>0-4</text> </observationRange> </referenceRange> </observation> </component> </organizer> </entry> <entry> < organizer moodCode="EVN" classCode="BATTERY"> <templateId root= "16.840.1.812581.07.02.22.4.1" /> <id nullFlavor="NA" /> <code codeSystem="local" code="UNAR" displayName="Sodium Random Urine" /> < statusCode code="completed" /> <component> <observation moodCode= "EVN" classCode="OBS"> <templateId root="16.840.1.535416.07.02.22.4.2 " /> <id nullFlavor="NA" /> <code codeSystem="local" code= "UNAR" displayName="Sodium Random Urine" /> <statusCode code="completed " /> <effectiveTime value="[id number]" /> <value unit="mEq/L " xsi:type="PQ" value="101" /> <referenceRange> < observationRange> <text /> </observationRange> </referenceRange> </observation> </component> </organizer> </ entry> <entry> <organizer moodCode="EVN" classCode="BATTERY"> < templateId root="10.29.840.1.163919.10.22.4.1" /> <id nullFlavor="NA" /> <code codeSystem="local" code="UCRER" displayName="Creatinine Random Urine " /> <statusCode code="completed" /> <component> <observation moodCode="EVN" classCode="OBS"> <templateId root= "10.29.840.1.263916.10..22.4.2" /> <id nullFlavor="NA" /> < code codeSystem="local" code="UCRER" displayName="Creatinine Random Urine" /> <statusCode code="completed" /> <effectiveTime value= "" /> <value unit="mg/dL" xsi:type="PQ" value="80" /> <referenceRange> <observationRange> <text /> </observationRange> </referenceRange> </observation> </component> </organizer> </entry> <entry> <organizer moodCode="EVN" classCode="BATTERY"> <templateId root="10.29.840.1.916157.10.22.4.1" /> <id nullFlavor="NA" /> <code codeSystem="local" code="LACID" displayName="Lactic Acid Venous" /> <statusCode code="completed" /> < component> <observation moodCode="EVN" classCode="OBS"> < templateId root="10.29.840.1.751607.07.02.22.4.2" /> <id nullFlavor="NA " /> <code codeSystem="local" code="LACID" displayName="Lactic Acid Venous" /> <statusCode code="completed" /> <effectiveTime value="[id number]" /> <value unit="mEq/L" xsi:type="PQ" value="2.5" / > <interpretationCode codeSystem="local" code="*" /> < referenceRange> <observationRange> <text>0.5-2.0</text> </observationRange> </referenceRange> </observation > </component> </organizer> </entry> <entry> <organizer moodCode= "EVN" classCode="BATTERY"> <templateId root="216.840.1.701043.10..22.4.1 " /> <id nullFlavor="NA" /> <code codeSystem="local" code="TROP" displayName="Troponin" /> <statusCode code="completed" /> <component> <observation moodCode="EVN" classCode="OBS"> <templateId root= "216.840.1.795567.10..22.4.2" /> <id nullFlavor="NA" /> < code codeSystem="local" code="TROP" displayName="Troponin" /> < statusCode code="completed" /> <effectiveTime value="[id number]" /> <value unit="ng/mL" xsi:type="PQ" value="1.14" /> < interpretationCode codeSystem="local" code="" /> <referenceRange> <observationRange> <text><0.06</text> </ observationRange> </referenceRange> </observation> </ component> </organizer> </entry> <entry> <organizer moodCode="EVN" classCode="BATTERY"> <templateId root="840.1.295477.10..22.4.1" /> <id nullFlavor="NA" /> <code codeSystem="local" code="BMP" displayName ="Basic Metabolic Panel (BMP)" /> <statusCode code="completed" /> < component> <observation moodCode="EVN" classCode="OBS"> < templateId root="840.1.923946.07.02.22.4.2" /> <id nullFlavor="NA " /> <code codeSystem="local" code="AGAP" displayName="Anion Gap" /> <statusCode code="completed" /> <effectiveTime value= "" /> <value unit="mEq/L" xsi:type="PQ" value="10" /> <referenceRange> <observationRange> <text>3-20</ text> </observationRange> </referenceRange> </ observation> </component> <component> <observation moodCode= "EVN" classCode="OBS"> <templateId root="840.1.407089.07.02.22.4.2 " /> <id nullFlavor="NA" /> <code codeSystem="local" code="BUN " displayName="BUN" /> <statusCode code="completed" /> < effectiveTime value="" /> <value unit="mg/dL" xsi:type="PQ " value="31" /> <interpretationCode codeSystem="local" code="*" /> <referenceRange> <observationRange> <text>4-20</ text> </observationRange> </referenceRange> </ observation> </component> <component> <observation moodCode= "EVN" classCode="OBS"> <templateId root="10.29.840.1.036561...4.2 " /> <id nullFlavor="NA" /> <code codeSystem="local" code="CA " displayName="Calcium" /> <statusCode code="completed" /> < effectiveTime value="" /> <value unit="mg/dL" xsi:type="PQ " value="8.0" /> <interpretationCode codeSystem="local" code="*" /> <referenceRange> <observationRange> <text>8.6- 10.0</text> </observationRange> </referenceRange> </ observation> </component> <component> <observation moodCode= "EVN" classCode="OBS"> <templateId root="216.840.1.478716.07.02.22.4.2 " /> <id nullFlavor="NA" /> <code codeSystem="local" code="CL " displayName="Chloride" /> <statusCode code="completed" /> < effectiveTime value="" /> <value unit="mEq/L" xsi:type="PQ " value="105" /> <referenceRange> <observationRange> <text>99-109</text> </observationRange> </ referenceRange> </observation> </component> <component> <observation moodCode="EVN" classCode="OBS"> <templateId root= "216.840.1.960962.07.02.22.4.2" /> <id nullFlavor="NA" /> < code codeSystem="local" code="CO2" displayName="CO2" /> <statusCode code="completed" /> <effectiveTime value="" /> < value unit="mEq/L" xsi:type="PQ" value="17" /> <interpretationCode codeSystem="local" code="*" /> <referenceRange> < observationRange> <text>22-32</text> </observationRange > </referenceRange> </observation> </component> < component> <observation moodCode="EVN" classCode="OBS"> < templateId root="216.840.1.467107.10..4.2" /> <id nullFlavor="NA " /> <code codeSystem="local" code="CREAT" displayName="Creatinine" /> <statusCode code="completed" /> <effectiveTime value= "" /> <value unit="mg/dL" xsi:type="PQ" value="1.44" /> <interpretationCode codeSystem="local" code="*" /> < referenceRange> <observationRange> <text>0.64-1.27</text > </observationRange> </referenceRange> </observation > </component> <component> <observation moodCode="EVN" classCode="OBS"> <templateId root="10.29.840.1.590021.07.02.224.2" /> <id nullFlavor="NA" /> <code codeSystem="local" code="GLU" displayName="Glucose" /> <statusCode code="completed" /> < effectiveTime value="" /> <value unit="mg/dL" xsi:type="PQ " value="69" /> <interpretationCode codeSystem="local" code="*" /> <referenceRange> <observationRange> <text>70-100</ text> </observationRange> </referenceRange> </ observation> </component> <component> <observation moodCode= "EVN" classCode="OBS"> <templateId root="10.29.840.1.316359.10..4.2 " /> <id nullFlavor="NA" /> <code codeSystem="local" code="K" displayName="Potassium" /> <statusCode code="completed" /> < effectiveTime value="" /> <value unit="mEq/L" xsi:type="PQ " value="4.5" /> <referenceRange> <observationRange> <text>3.6-5.1</text> </observationRange> </ referenceRange> </observation> </component> <component> <observation moodCode="EVN" classCode="OBS"> <templateId root= "840.1.990792.07.02.22.4.2" /> <id nullFlavor="NA" /> < code codeSystem="local" code="NA" displayName="Sodium" /> <statusCode code="completed" /> <effectiveTime value="" /> < value unit="mEq/L" xsi:type="PQ" value="132" /> <interpretationCode codeSystem="local" code="*" /> <referenceRange> < observationRange> <text>136-144</text> </ observationRange> </referenceRange> </observation> </ component> </organizer> </entry> <entry> <organizer moodCode="EVN" classCode="BATTERY"> <templateId root="10.29.840.1.418019.07.02.22.4.1" /> <id nullFlavor="NA" /> <code codeSystem="local" code="GFR" displayName ="eGFR" /> <statusCode code="completed" /> <component> < observation moodCode="EVN" classCode="OBS"> <templateId root= "10.29.840.1.933977.07.02.22.4.2" /> <id nullFlavor="NA" /> < code codeSystem="local" code="GFR" displayName="eGFR" /> <statusCode code="completed" /> <effectiveTime value="" /> < value unit="mL/min" xsi:type="PQ" value="52" /> <interpretationCode codeSystem="local" code="*" /> <referenceRange> < observationRange> <text>>60</text> </observationRange > </referenceRange> </observation> </component> </ organizer> </entry> <entry> <organizer moodCode="EVN" classCode="BATTERY"> <templateId root="16.840.1.917824.10...4.1" /> <id nullFlavor= "NA" /> <code codeSystem="local" code="PCT" displayName="Procalcitonin" /> <statusCode code="completed" /> <component> <observation moodCode="EVN" classCode="OBS"> <templateId root= "216.840.1.169749.10..22.4.2" /> <id nullFlavor="NA" /> < code codeSystem="local" code="PCT" displayName="Procalcitonin" /> < statusCode code="completed" /> <effectiveTime value="792555741533" /> <value unit="ng/mL" xsi:type="PQ" value="0.17" /> < interpretationCode codeSystem="local" code="*" /> <referenceRange> <observationRange> <text>0.00-0.09</text> </ observationRange> </referenceRange> </observation> </ component> </organizer> </entry> <entry> <organizer moodCode="EVN" classCode="BATTERY"> <templateId root="16.840.1.109680.10...4.1" /> <id nullFlavor="NA" /> <code codeSystem="local" code="HCVRN" displayName="Hepatitis C RNA" /> <statusCode code="completed" /> < component> <observation moodCode="EVN" classCode="OBS"> < templateId root="840.1.349106.10.22.4.2" /> <id nullFlavor="NA " /> <code codeSystem="local" code="HCV10" displayName="HCV Log10" /> <statusCode code="completed" /> <effectiveTime value= "418912318486" /> <value unit="NA" xsi:type="PQ" value="7.2" /> <referenceRange> <observationRange> <text /> </observationRange> </referenceRange> </observation> </ component> <component> <observation moodCode="EVN" classCode="OBS"> <templateId root="840.1.589209.07.02.22.4.2" /> <id nullFlavor="NA" /> <code codeSystem="local" code="HCVR" displayName= "Hepatitis C viral RNA" /> <statusCode code="completed" /> < effectiveTime value="550011933434" /> <value unit="IU/mL" xsi:type="PQ " value="83962486" /> <referenceRange> <observationRange> <text /> </observationRange> </referenceRange> </observation> </component> </organizer> </entry> <entry> < organizer moodCode="EVN" classCode="BATTERY"> <templateId root= "840.1.125214.1022.4.1" /> <id nullFlavor="NA" /> <code codeSystem="local" code="GLUN" displayName="Glucose NPT" /> <statusCode code="completed" /> <component> <observation moodCode="EVN" classCode="OBS"> <templateId root="840.1.391279.1022.4.2" /> <id nullFlavor="NA" /> <code codeSystem="local" code="GLUN" displayName="Glucose NPT" /> <statusCode code="completed" /> <effectiveTime value="438915081915" /> <value unit="mg/dL" xsi:type="PQ " value="46" /> <interpretationCode codeSystem="local" code="*" /> <referenceRange> <observationRange> <text>70-100</ text> </observationRange> </referenceRange> </ observation> </component> </organizer> </entry> <entry> <organizer moodCode="EVN" classCode="BATTERY"> <templateId root= "16.840.1.154418.10...4.1" /> <id nullFlavor="NA" /> <code codeSystem="local" code="GLUN" displayName="Glucose NPT" /> <statusCode code="completed" /> <component> <observation moodCode="EVN" classCode="OBS"> <templateId root="16.840.1.110063.10..22.4.2" /> <id nullFlavor="NA" /> <code codeSystem="local" code="GLUN" displayName="Glucose NPT" /> <statusCode code="completed" /> <effectiveTime value="929822710142" /> <value unit="mg/dL" xsi:type="PQ " value="47" /> <interpretationCode codeSystem="local" code="*" /> <referenceRange> <observationRange> <text>70-100</ text> </observationRange> </referenceRange> </ observation> </component> </organizer> </entry> <entry> <organizer moodCode="EVN" classCode="BATTERY"> <templateId root= "16.840.1.627117.10.20.22.4.1" /> <id nullFlavor="NA" /> <code codeSystem="local" code="GLUN" displayName="Glucose NPT" /> <statusCode code="completed" /> <component> <observation moodCode="EVN" classCode="OBS"> <templateId root="10.29.840.1.746800.1022.4.2" /> <id nullFlavor="NA" /> <code codeSystem="local" code="GLUN" displayName="Glucose NPT" /> <statusCode code="completed" /> <effectiveTime value="266625730203" /> <value unit="mg/dL" xsi:type="PQ " value="122" /> <interpretationCode codeSystem="local" code="*" /> <referenceRange> <observationRange> <text>70-100< /text> </observationRange> </referenceRange> </ observation> </component> </organizer> </entry> <entry> <organizer moodCode="EVN" classCode="BATTERY"> <templateId root= "840.1.781241.10.4.1" /> <id nullFlavor="NA" /> <code codeSystem="local" code="CBCND" displayName="CBC With Platelet No Differential" /> <statusCode code="completed" /> <component> <observation moodCode="EVN" classCode="OBS"> <templateId root= "10.29.840.1.028610.1022.4.2" /> <id nullFlavor="NA" /> < code codeSystem="local" code="HCT" displayName="HCT" /> <statusCode code="completed" /> <effectiveTime value="200208248548" /> < value unit="%" xsi:type="PQ" value="36.3" /> <interpretationCode codeSystem="local" code="*" /> <referenceRange> < observationRange> <text>42.0-52.0</text> </ observationRange> </referenceRange> </observation> </ component> <component> <observation moodCode="EVN" classCode="OBS"> <templateId root="10.29.840.1.242905.10.20.22.4.2" /> <id nullFlavor="NA" /> <code codeSystem="local" code="HGB" displayName="HGB " /> <statusCode code="completed" /> <effectiveTime value= "" /> <value unit="g/dL" xsi:type="PQ" value="11.9" /> <interpretationCode codeSystem="local" code="*" /> < referenceRange> <observationRange> <text>14.0-18.0</text > </observationRange> </referenceRange> </observation > </component> <component> <observation moodCode="EVN" classCode="OBS"> <templateId root="840.1.169883.10.22.4.2" /> <id nullFlavor="NA" /> <code codeSystem="local" code="MCH" displayName="MCH" /> <statusCode code="completed" /> < effectiveTime value="548513217606" /> <value unit="pg" xsi:type="PQ" value="29.4" /> <referenceRange> <observationRange> <text>27.0-32.0</text> </observationRange> </ referenceRange> </observation> </component> <component> <observation moodCode="EVN" classCode="OBS"> <templateId root= "10.29.840.1.975488.10.20.22.4.2" /> <id nullFlavor="NA" /> < code codeSystem="local" code="MCHC" displayName="MCHC" /> <statusCode code="completed" /> <effectiveTime value="" /> < value unit="g/dL" xsi:type="PQ" value="32.8" /> <referenceRange> <observationRange> <text>32.0-36.0</text> </ observationRange> </referenceRange> </observation> </ component> <component> <observation moodCode="EVN" classCode="OBS"> <templateId root="10.29.840.1.884845.10.22.4.2" /> <id nullFlavor="NA" /> <code codeSystem="local" code="MCV" displayName="MCV " /> <statusCode code="completed" /> <effectiveTime value= "" /> <value unit="fL" xsi:type="PQ" value="89.6" /> <referenceRange> <observationRange> <text>82.0-99.0< /text> </observationRange> </referenceRange> </ observation> </component> <component> <observation moodCode= "EVN" classCode="OBS"> <templateId root="10.29.840.1.025727.07.02.22.4.2 " /> <id nullFlavor="NA" /> <code codeSystem="local" code="MPV " displayName="MPV" /> <statusCode code="completed" /> < effectiveTime value="" /> <value unit="fL" xsi:type="PQ" value="11.4" /> <referenceRange> <observationRange> <text>9.4-12.3</text> </observationRange> </ referenceRange> </observation> </component> <component> <observation moodCode="EVN" classCode="OBS"> <templateId root= "10.29.840.1.660903.07.02.22.4.2" /> <id nullFlavor="NA" /> < code codeSystem="local" code="PLT" displayName="Platelet Count" /> < statusCode code="completed" /> <effectiveTime value="984628295219" /> <value unit="K/uL" xsi:type="PQ" value="97" /> < interpretationCode codeSystem="local" code="*" /> <referenceRange> <observationRange> <text>150-400</text> </ observationRange> </referenceRange> </observation> </ component> <component> <observation moodCode="EVN" classCode="OBS"> <templateId root="216.840.1.721121.07.02.224.2" /> <id nullFlavor="NA" /> <code codeSystem="local" code="RBC" displayName="RBC " /> <statusCode code="completed" /> <effectiveTime value= "" /> <value unit="10*6/uL" xsi:type="PQ" value="4.05" /> <interpretationCode codeSystem="local" code="*" /> < referenceRange> <observationRange> <text>4.60-6.20</text > </observationRange> </referenceRange> </observation > </component> <component> <observation moodCode="EVN" classCode="OBS"> <templateId root="216.840.1.976253.10.4.2" /> <id nullFlavor="NA" /> <code codeSystem="local" code="RDW" displayName="RDW" /> <statusCode code="completed" /> < effectiveTime value="" /> <value unit="%" xsi:type="PQ " value="15.7" /> <interpretationCode codeSystem="local" code="*" /> <referenceRange> <observationRange> <text>11.5- 14.5</text> </observationRange> </referenceRange> </ observation> </component> <component> <observation moodCode= "EVN" classCode="OBS"> <templateId root="16.840.1.222252.10.20.22.4.2 " /> <id nullFlavor="NA" /> <code codeSystem="local" code= "WBCIR" displayName="WBC" /> <statusCode code="completed" /> < effectiveTime value="" /> <value unit="K/uL" xsi:type="PQ" value="6.8" /> <referenceRange> <observationRange> <text>4.8-10.8</text> </observationRange> </ referenceRange> </observation> </component> </organizer> </entry > <entry> <organizer moodCode="EVN" classCode="BATTERY"> <templateId root="10.29.840.1.044556.10..22.4.1" /> <id nullFlavor="NA" /> <code codeSystem="local" code="PTPTT" displayName="PTT/PT (INR)" /> <statusCode code="completed" /> <component> <observation moodCode="EVN" classCode="OBS"> <templateId root="10.29.840.1.285891.10..22.4.2" /> <id nullFlavor="NA" /> <code codeSystem="local" code="INR" displayName="INR" /> <statusCode code="completed" /> < effectiveTime value="" /> <value unit="NA" xsi:type="PQ" value="1.2" /> <referenceRange> <observationRange> <text>0.9-1.2</text> </observationRange> </ referenceRange> </observation> </component> </organizer> </entry > <entry> <organizer moodCode="EVN" classCode="BATTERY"> <templateId root="10.29.840.1.904748.07.02.22.4.1" /> <id nullFlavor="NA" /> <code codeSystem="local" code="GLUN" displayName="Glucose NPT" /> <statusCode code="completed" /> <component> <observation moodCode="EVN" classCode="OBS"> <templateId root="840.1.110146.07.02.22.4.2" /> <id nullFlavor="NA" /> <code codeSystem="local" code="GLUN" displayName="Glucose NPT" /> <statusCode code="completed" /> <effectiveTime value="280356211452" /> <value unit="mg/dL" xsi:type="PQ " value="105" /> <interpretationCode codeSystem="local" code="*" /> <referenceRange> <observationRange> <text>70-100< /text> </observationRange> </referenceRange> </ observation> </component> </organizer> </entry> <entry> <organizer moodCode="EVN" classCode="BATTERY"> <templateId root= "10.29.840.1.725840.07.02.22.4.1" /> <id nullFlavor="NA" /> <code codeSystem="local" code="TROP" displayName="Troponin" /> <statusCode code= "completed" /> <component> <observation moodCode="EVN" classCode= "OBS"> <templateId root="10.29.840.1.073773.07.02.22.4.2" /> < id nullFlavor="NA" /> <code codeSystem="local" code="TROP" displayName= "Troponin" /> <statusCode code="completed" /> <effectiveTime value="404929982329" /> <value unit="ng/mL" xsi:type="PQ" value="1.18" /> <interpretationCode codeSystem="local" code="" /> < referenceRange> <observationRange> <text><0.06</text > </observationRange> </referenceRange> </observation > </component> </organizer> </entry> <entry> <organizer moodCode= "EVN" classCode="BATTERY"> <templateId root="16.840.1.173615.10..22.4.1 " /> <id nullFlavor="NA" /> <code codeSystem="local" code="PTT" displayName="PTT" /> <statusCode code="completed" /> <component> <observation moodCode="EVN" classCode="OBS"> <templateId root= "16.840.1.694923.10..22.4.2" /> <id nullFlavor="NA" /> < code codeSystem="local" code="PTT" displayName="PTT" /> <statusCode code="completed" /> <effectiveTime value="464759142378" /> < value unit="seconds" xsi:type="PQ" value="86.5" /> <interpretationCode codeSystem="local" code="*" /> <referenceRange> < observationRange> <text>25.0-35.0</text> </ observationRange> </referenceRange> </observation> </ component> </organizer> </entry> <entry> <organizer moodCode="EVN" classCode="BATTERY"> <templateId root="16.840.1.850627.10..22.4.1" /> <id nullFlavor="NA" /> <code codeSystem="local" code="GLUN" displayName="Glucose NPT" /> <statusCode code="completed" /> < component> <observation moodCode="EVN" classCode="OBS"> < templateId root="16.840.1.537302.07.02.22.4.2" /> <id nullFlavor="NA " /> <code codeSystem="local" code="GLUN" displayName="Glucose NPT" / > <statusCode code="completed" /> <effectiveTime value= "047506652663" /> <value unit="mg/dL" xsi:type="PQ" value="102" /> <interpretationCode codeSystem="local" code="*" /> < referenceRange> <observationRange> <text>70-100</text> </observationRange> </referenceRange> </observation> </component> </organizer> </entry> <entry> <organizer moodCode= "EVN" classCode="BATTERY"> <templateId root="840.1.343574.07.02.22.4.1 " /> <id nullFlavor="NA" /> <code codeSystem="local" code="TROP" displayName="Troponin" /> <statusCode code="completed" /> <component> <observation moodCode="EVN" classCode="OBS"> <templateId root= "10.29.840.1.860428.07.02.22.4.2" /> <id nullFlavor="NA" /> < code codeSystem="local" code="TROP" displayName="Troponin" /> < statusCode code="completed" /> <effectiveTime value="593182571229" /> <value unit="ng/mL" xsi:type="PQ" value="1.04" /> < interpretationCode codeSystem="local" code="" /> <referenceRange> <observationRange> <text><0.06</text> </ observationRange> </referenceRange> </observation> </ component> </organizer> </entry> <entry> <organizer moodCode="EVN" classCode="BATTERY"> <templateId root="16.840.1.825953.10..4.1" /> <id nullFlavor="NA" /> <code codeSystem="local" code="LACID" displayName="Lactic Acid Venous" /> <statusCode code="completed" /> < component> <observation moodCode="EVN" classCode="OBS"> < templateId root="840.1.239645.07.02.22.4.2" /> <id nullFlavor="NA " /> <code codeSystem="local" code="LACID" displayName="Lactic Acid Venous" /> <statusCode code="completed" /> <effectiveTime value="828703080003" /> <value unit="mEq/L" xsi:type="PQ" value="1.5" / > <referenceRange> <observationRange> <text>0.5 -2.0</text> </observationRange> </referenceRange> </ observation> </component> </organizer> </entry> <entry> <organizer moodCode="EVN" classCode="BATTERY"> <templateId root= "10.29.840.1.402477.07.02.22.4.1" /> <id nullFlavor="NA" /> <code codeSystem="local" code="HEP4" displayName="Hepatitis Panel" /> < statusCode code="completed" /> <component> <observation moodCode= "EVN" classCode="OBS"> <templateId root="16.840.1.298550.10..4.2 " /> <id nullFlavor="NA" /> <code codeSystem="local" code= "HAABM" displayName="Hepatitis A Antibody IGM" /> <statusCode code= "completed" /> <effectiveTime value="" /> <value unit="" xsi:type="PQ" value="Negative" /> <referenceRange> < observationRange> <text /> </observationRange> </referenceRange> </observation> </component> <component> <observation moodCode="EVN" classCode="OBS"> <templateId root= "216.840.1.311785.10..4.2" /> <id nullFlavor="NA" /> < code codeSystem="local" code="HBSAG" displayName="Hepatitis B Surface Antigen" / > <statusCode code="completed" /> <effectiveTime value= "" /> <value unit="" xsi:type="PQ" value="Negative" /> <referenceRange> <observationRange> <text /> </observationRange> </referenceRange> </observation> </component> <component> <observation moodCode="EVN" classCode= "OBS"> <templateId root="16.840.1.461652.07.02.22.4.2" /> < id nullFlavor="NA" /> <code codeSystem="local" code="HBCM" displayName= "Hepatitis Core Ab IGM" /> <statusCode code="completed" /> < effectiveTime value="" /> <value unit="" xsi:type="PQ" value="Negative" /> <referenceRange> <observationRange> <text /> </observationRange> </referenceRange> </observation> </component> </organizer> </entry> <entry> < organizer moodCode="EVN" classCode="BATTERY"> <templateId root= "216.840.1.010098.07.02.22.4.1" /> <id nullFlavor="NA" /> <code codeSystem="local" code="CBCWD" displayName="CBC With Platelet and Differential " /> <statusCode code="completed" /> <component> <observation moodCode="EVN" classCode="OBS"> <templateId root= "10.29.840.1.558130.10.20.22.4.2" /> <id nullFlavor="NA" /> < code codeSystem="local" code="ABASR" displayName="Absolute Basophils" /> <statusCode code="completed" /> <effectiveTime value="" /> <value unit="10*3/uL" xsi:type="PQ" value="0.01" /> < referenceRange> <observationRange> <text>0.00-0.20</text > </observationRange> </referenceRange> </observation > </component> <component> <observation moodCode="EVN" classCode="OBS"> <templateId root="840.1.024398.1022.4.2" /> <id nullFlavor="NA" /> <code codeSystem="local" code="AEOSR" displayName="Absolute Eosinophils" /> <statusCode code="completed" /> <effectiveTime value="" /> <value unit="10*3/uL" xsi:type="PQ" value="0.00" /> <referenceRange> < observationRange> <text>0.00-0.50</text> </ observationRange> </referenceRange> </observation> </ component> <component> <observation moodCode="EVN" classCode="OBS"> <templateId root="840.1.692071..20.22.4.2" /> <id nullFlavor="NA" /> <code codeSystem="local" code="ALYMR" displayName= "Absolute Lymphocytes" /> <statusCode code="completed" /> < effectiveTime value="" /> <value unit="10*3/uL" xsi:type= "PQ" value="0.76" /> <interpretationCode codeSystem="local" code="*" / > <referenceRange> <observationRange> <text> 0.80-3.30</text> </observationRange> </referenceRange> </observation> </component> <component> <observation moodCode="EVN" classCode="OBS"> <templateId root= "216.840.1.633045.10..22.4.2" /> <id nullFlavor="NA" /> < code codeSystem="local" code="AMONR" displayName="Absolute Monocytes" /> <statusCode code="completed" /> <effectiveTime value="" /> <value unit="10*3/uL" xsi:type="PQ" value="0.18" /> < interpretationCode codeSystem="local" code="*" /> <referenceRange> <observationRange> <text>0.30-1.00</text> </ observationRange> </referenceRange> </observation> </ component> <component> <observation moodCode="EVN" classCode="OBS"> <templateId root="16.840.1.066609.10.22.4.2" /> <id nullFlavor="NA" /> <code codeSystem="local" code="ASEGR" displayName= "Absolute Neutrophils" /> <statusCode code="completed" /> < effectiveTime value="" /> <value unit="10*3/uL" xsi:type= "PQ" value="2.66" /> <referenceRange> <observationRange> <text>1.90-7.00</text> </observationRange> </ referenceRange> </observation> </component> <component> <observation moodCode="EVN" classCode="OBS"> <templateId root= "216.840.1.069339.10.2022.4.2" /> <id nullFlavor="NA" /> < code codeSystem="local" code="BASOR" displayName="Basophils" /> < statusCode code="completed" /> <effectiveTime value="" /> <value unit="%" xsi:type="PQ" value="0" /> <referenceRange > <observationRange> <text>0-2</text> </ observationRange> </referenceRange> </observation> </ component> <component> <observation moodCode="EVN" classCode="OBS"> <templateId root="16.840.1.115735.10.22.4.2" /> <id nullFlavor="NA" /> <code codeSystem="local" code="EOSR" displayName= "Eosinophils" /> <statusCode code="completed" /> < effectiveTime value="" /> <value unit="%" xsi:type="PQ " value="0" /> <referenceRange> <observationRange> <text>0-4</text> </observationRange> </referenceRange> </observation> </component> <component> <observation moodCode="EVN" classCode="OBS"> <templateId root= "16.840.1.267309.10.2022.4.2" /> <id nullFlavor="NA" /> < code codeSystem="local" code="HCT" displayName="HCT" /> <statusCode code="completed" /> <effectiveTime value="" /> < value unit="%" xsi:type="PQ" value="32.7" /> <interpretationCode codeSystem="local" code="*" /> <referenceRange> < observationRange> <text>42.0-52.0</text> </ observationRange> </referenceRange> </observation> </ component> <component> <observation moodCode="EVN" classCode="OBS"> <templateId root="216.840.1.192040.10...4.2" /> <id nullFlavor="NA" /> <code codeSystem="local" code="HGB" displayName="HGB " /> <statusCode code="completed" /> <effectiveTime value= "" /> <value unit="g/dL" xsi:type="PQ" value="10.7" /> <interpretationCode codeSystem="local" code="*" /> < referenceRange> <observationRange> <text>14.0-18.0</text > </observationRange> </referenceRange> </observation > </component> <component> <observation moodCode="EVN" classCode="OBS"> <templateId root="16.840.1.386056...4.2" /> <id nullFlavor="NA" /> <code codeSystem="local" code="IMGA" displayName="Immature Granulocytes" /> <statusCode code="completed" /> <effectiveTime value="" /> <value unit="%" xsi:type="PQ" value="1.4" /> <interpretationCode codeSystem="local" code="*" /> <referenceRange> <observationRange> <text>0.0-1.0</text> </observationRange> </referenceRange > </observation> </component> <component> <observation moodCode="EVN" classCode="OBS"> <templateId root= "216.840.1.422889.10..4.2" /> <id nullFlavor="NA" /> < code codeSystem="local" code="LYMPR" displayName="Lymphocytes" /> < statusCode code="completed" /> <effectiveTime value="" /> <value unit="%" xsi:type="PQ" value="21" /> < referenceRange> <observationRange> <text>20-46</text> </observationRange> </referenceRange> </observation> </component> <component> <observation moodCode="EVN" classCode= "OBS"> <templateId root="2.16.840.1.166499.10..22.4.2" /> < id nullFlavor="NA" /> <code codeSystem="local" code="MCH" displayName= "MCH" /> <statusCode code="completed" /> <effectiveTime value= "" /> <value unit="pg" xsi:type="PQ" value="28.8" /> <referenceRange> <observationRange> <text>27.0-32.0< /text> </observationRange> </referenceRange> </ observation> </component> <component> <observation moodCode= "EVN" classCode="OBS"> <templateId root="216.840.1.677955.10..22.4.2 " /> <id nullFlavor="NA" /> <code codeSystem="local" code= "MCHC" displayName="MCHC" /> <statusCode code="completed" /> < effectiveTime value="" /> <value unit="g/dL" xsi:type="PQ" value="32.7" /> <referenceRange> <observationRange> <text>32.0-36.0</text> </observationRange> </ referenceRange> </observation> </component> <component> <observation moodCode="EVN" classCode="OBS"> <templateId root= "16.840.1.354107.10..22.4.2" /> <id nullFlavor="NA" /> < code codeSystem="local" code="MCV" displayName="MCV" /> <statusCode code="completed" /> <effectiveTime value="" /> < value unit="fL" xsi:type="PQ" value="88.1" /> <referenceRange> <observationRange> <text>82.0-99.0</text> </ observationRange> </referenceRange> </observation> </ component> <component> <observation moodCode="EVN" classCode="OBS"> <templateId root="10.29.840.1.778584..22.4.2" /> <id nullFlavor="NA" /> <code codeSystem="local" code="MONOR" displayName= "Monocytes" /> <statusCode code="completed" /> <effectiveTime value="" /> <value unit="%" xsi:type="PQ" value="5" /> <referenceRange> <observationRange> <text>4-11 </text> </observationRange> </referenceRange> </ observation> </component> <component> <observation moodCode= "EVN" classCode="OBS"> <templateId root="10.29.840.1.012396.10.22.4.2 " /> <id nullFlavor="NA" /> <code codeSystem="local" code="MPV " displayName="MPV" /> <statusCode code="completed" /> < effectiveTime value="" /> <value unit="fL" xsi:type="PQ" value="11.4" /> <referenceRange> <observationRange> <text>9.4-12.3</text> </observationRange> </ referenceRange> </observation> </component> <component> <observation moodCode="EVN" classCode="OBS"> <templateId root= "216.840.1.108168.10.4.2" /> <id nullFlavor="NA" /> < code codeSystem="local" code="SEGR" displayName="Neutrophils" /> < statusCode code="completed" /> <effectiveTime value="" /> <value unit="%" xsi:type="PQ" value="73" /> < referenceRange> <observationRange> <text>51-75</text> </observationRange> </referenceRange> </observation> </component> <component> <observation moodCode="EVN" classCode= "OBS"> <templateId root="10.29.840.1.950068.07.02.22.4.2" /> < id nullFlavor="NA" /> <code codeSystem="local" code="NRBCA" displayName ="Nucleated RBC Automated" /> <statusCode code="completed" /> <effectiveTime value="" /> <value unit="/100WBC" xsi:type= "PQ" value="1.1" /> <referenceRange> <observationRange> <text /> </observationRange> </referenceRange> </observation> </component> <component> <observation moodCode="EVN" classCode="OBS"> <templateId root= "10.29.840.1.847262.10.22.4.2" /> <id nullFlavor="NA" /> < code codeSystem="local" code="PLT" displayName="Platelet Count" /> < statusCode code="completed" /> <effectiveTime value="" /> <value unit="K/uL" xsi:type="PQ" value="107" /> < interpretationCode codeSystem="local" code="*" /> <referenceRange> <observationRange> <text>150-400</text> </ observationRange> </referenceRange> </observation> </ component> <component> <observation moodCode="EVN" classCode="OBS"> <templateId root="216.840.1.730828...22.4.2" /> <id nullFlavor="NA" /> <code codeSystem="local" code="RBC" displayName="RBC " /> <statusCode code="completed" /> <effectiveTime value= "" /> <value unit="10*6/uL" xsi:type="PQ" value="3.71" /> <interpretationCode codeSystem="local" code="*" /> < referenceRange> <observationRange> <text>4.60-6.20</text > </observationRange> </referenceRange> </observation > </component> <component> <observation moodCode="EVN" classCode="OBS"> <templateId root="10.29.840.1.920203.22.4.2" /> <id nullFlavor="NA" /> <code codeSystem="local" code="RDW" displayName="RDW" /> <statusCode code="completed" /> < effectiveTime value="" /> <value unit="%" xsi:type="PQ " value="15.7" /> <interpretationCode codeSystem="local" code="*" /> <referenceRange> <observationRange> <text>11.5- 14.5</text> </observationRange> </referenceRange> </ observation> </component> <component> <observation moodCode= "EVN" classCode="OBS"> <templateId root="10.29.840.1.867233..4.2 " /> <id nullFlavor="NA" /> <code codeSystem="local" code= "WBCIR" displayName="WBC" /> <statusCode code="completed" /> < effectiveTime value="394418906255" /> <value unit="K/uL" xsi:type="PQ" value="3.7" /> <interpretationCode codeSystem="local" code="*" /> <referenceRange> <observationRange> <text>4.8-10.8< /text> </observationRange> </referenceRange> </ observation> </component> </organizer> </entry> <entry> <organizer moodCode="EVN" classCode="BATTERY"> <templateId root= "216.840.1.528119...4.1" /> <id nullFlavor="NA" /> <code codeSystem="local" code="MG" displayName="Magnesium" /> <statusCode code= "completed" /> <component> <observation moodCode="EVN" classCode= "OBS"> <templateId root="216.840.1.030696...4.2" /> < id nullFlavor="NA" /> <code codeSystem="local" code="MG" displayName= "Magnesium" /> <statusCode code="completed" /> <effectiveTime value="865876860731" /> <value unit="mg/dL" xsi:type="PQ" value="1.9" / > <referenceRange> <observationRange> <text>1.8 -2.5</text> </observationRange> </referenceRange> </ observation> </component> </organizer> </entry> <entry> <organizer moodCode="EVN" classCode="BATTERY"> <templateId root= "216.840.1.242771.07.02.22.4.1" /> <id nullFlavor="NA" /> <code codeSystem="local" code="CMP" displayName="Comprehensive Metabolic Panel (CMP)" /> <statusCode code="completed" /> <component> <observation moodCode="EVN" classCode="OBS"> <templateId root= "10.29.840.1.211934.07.02.22.4.2" /> <id nullFlavor="NA" /> < code codeSystem="local" code="ALB" displayName="Albumin" /> < statusCode code="completed" /> <effectiveTime value="160078547687" /> <value unit="g/dL" xsi:type="PQ" value="2.8" /> < interpretationCode codeSystem="local" code="*" /> <referenceRange> <observationRange> <text>3.5-4.8</text> </ observationRange> </referenceRange> </observation> </ component> <component> <observation moodCode="EVN" classCode="OBS"> <templateId root="840.1.646074.07.02.22.4.2" /> <id nullFlavor="NA" /> <code codeSystem="local" code="ALP" displayName= "Alkaline Phosphatase" /> <statusCode code="completed" /> < effectiveTime value="941882137258" /> <value unit="U/L" xsi:type="PQ" value="96" /> <referenceRange> <observationRange> <text>26-104</text> </observationRange> </referenceRange > </observation> </component> <component> <observation moodCode="EVN" classCode="OBS"> <templateId root= "10.29.840.1.905495.07.02.22.4.2" /> <id nullFlavor="NA" /> < code codeSystem="local" code="ALT" displayName="ALT (SGPT)" /> < statusCode code="completed" /> <effectiveTime value="758906610887" /> <value unit="U/L" xsi:type="PQ" value="1858" /> < interpretationCode codeSystem="local" code="*" /> <referenceRange> <observationRange> <text>17-63</text> </ observationRange> </referenceRange> </observation> </ component> <component> <observation moodCode="EVN" classCode="OBS"> <templateId root="2.16.840.1.417206.10...4.2" /> <id nullFlavor="NA" /> <code codeSystem="local" code="AGAP" displayName= "Anion Gap" /> <statusCode code="completed" /> <effectiveTime value="" /> <value unit="mEq/L" xsi:type="PQ" value="7" /> <referenceRange> <observationRange> <text>3-20 </text> </observationRange> </referenceRange> </ observation> </component> <component> <observation moodCode= "EVN" classCode="OBS"> <templateId root="216.840.1.512484.10..22.4.2 " /> <id nullFlavor="NA" /> <code codeSystem="local" code= "BILIT" displayName="Bilirubin Total" /> <statusCode code="completed" / > <effectiveTime value="468718846562" /> <value unit="mg/dL" xsi:type="PQ" value="1.3" /> <interpretationCode codeSystem="local" code="*" /> <referenceRange> <observationRange> <text>0.2-1.2</text> </observationRange> </referenceRange > </observation> </component> <component> <observation moodCode="EVN" classCode="OBS"> <templateId root= "16.840.1.703763.10..4.2" /> <id nullFlavor="NA" /> < code codeSystem="local" code="BUN" displayName="BUN" /> <statusCode code="completed" /> <effectiveTime value="" /> < value unit="mg/dL" xsi:type="PQ" value="29" /> <interpretationCode codeSystem="local" code="*" /> <referenceRange> < observationRange> <text>4-20</text> </observationRange> </referenceRange> </observation> </component> < component> <observation moodCode="EVN" classCode="OBS"> < templateId root="10.29.840.1.732708.07.02.22.4.2" /> <id nullFlavor="NA " /> <code codeSystem="local" code="CA" displayName="Calcium" /> <statusCode code="completed" /> <effectiveTime value=" " /> <value unit="mg/dL" xsi:type="PQ" value="7.7" /> < interpretationCode codeSystem="local" code="*" /> <referenceRange> <observationRange> <text>8.6-10.0</text> </ observationRange> </referenceRange> </observation> </ component> <component> <observation moodCode="EVN" classCode="OBS"> <templateId root="16.840.1.902431.07.02.22.4.2" /> <id nullFlavor="NA" /> <code codeSystem="local" code="CL" displayName= "Chloride" /> <statusCode code="completed" /> <effectiveTime value="" /> <value unit="mEq/L" xsi:type="PQ" value="100" / > <referenceRange> <observationRange> <text>99- 109</text> </observationRange> </referenceRange> </ observation> </component> <component> <observation moodCode= "EVN" classCode="OBS"> <templateId root="16.840.1.138707.10...4.2 " /> <id nullFlavor="NA" /> <code codeSystem="local" code="CO2 " displayName="CO2" /> <statusCode code="completed" /> < effectiveTime value="682556792604" /> <value unit="mEq/L" xsi:type="PQ " value="20" /> <interpretationCode codeSystem="local" code="*" /> <referenceRange> <observationRange> <text>22-32</ text> </observationRange> </referenceRange> </ observation> </component> <component> <observation moodCode= "EVN" classCode="OBS"> <templateId root="10.29.840.1.740670.07.02.22.4.2 " /> <id nullFlavor="NA" /> <code codeSystem="local" code= "CREAT" displayName="Creatinine" /> <statusCode code="completed" /> <effectiveTime value="215272186752" /> <value unit="mg/dL" xsi: type="PQ" value="1.29" /> <interpretationCode codeSystem="local" code= "*" /> <referenceRange> <observationRange> < text>0.64-1.27</text> </observationRange> </referenceRange> </observation> </component> <component> <observation moodCode="EVN" classCode="OBS"> <templateId root= "10.29.840.1.271869....4.2" /> <id nullFlavor="NA" /> < code codeSystem="local" code="GLOB" displayName="Globulin" /> < statusCode code="completed" /> <effectiveTime value="052254724643" /> <value unit="g/dL" xsi:type="PQ" value="2.8" /> < referenceRange> <observationRange> <text>1.9-4.3</text> </observationRange> </referenceRange> </observation > </component> <component> <observation moodCode="EVN" classCode="OBS"> <templateId root="216.840.1.779919.10..4.2" /> <id nullFlavor="NA" /> <code codeSystem="local" code="GLU" displayName="Glucose" /> <statusCode code="completed" /> < effectiveTime value="206732989488" /> <value unit="mg/dL" xsi:type="PQ " value="345" /> <interpretationCode codeSystem="local" code="*" /> <referenceRange> <observationRange> <text>70-100< /text> </observationRange> </referenceRange> </ observation> </component> <component> <observation moodCode= "EVN" classCode="OBS"> <templateId root="16.840.1.583145.07.02.22.4.2 " /> <id nullFlavor="NA" /> <code codeSystem="local" code="K" displayName="Potassium" /> <statusCode code="completed" /> < effectiveTime value="050988415382" /> <value unit="mEq/L" xsi:type="PQ " value="4.2" /> <referenceRange> <observationRange> <text>3.6-5.1</text> </observationRange> </ referenceRange> </observation> </component> <component> <observation moodCode="EVN" classCode="OBS"> <templateId root= "216.840.1.073369.10..4.2" /> <id nullFlavor="NA" /> < code codeSystem="local" code="TP" displayName="Protein" /> <statusCode code="completed" /> <effectiveTime value="" /> < value unit="g/dL" xsi:type="PQ" value="5.6" /> <interpretationCode codeSystem="local" code="*" /> <referenceRange> < observationRange> <text>6.1-7.9</text> </ observationRange> </referenceRange> </observation> </ component> <component> <observation moodCode="EVN" classCode="OBS"> <templateId root="216.840.1.711156.07.02.22.4.2" /> <id nullFlavor="NA" /> <code codeSystem="local" code="NA" displayName= "Sodium" /> <statusCode code="completed" /> <effectiveTime value="039152887513" /> <value unit="mEq/L" xsi:type="PQ" value="127" / > <interpretationCode codeSystem="local" code="*" /> < referenceRange> <observationRange> <text>136-144</text> </observationRange> </referenceRange> </observation > </component> </organizer> </entry> <entry> <organizer moodCode= "EVN" classCode="BATTERY"> <templateId root="216.840.1.490499.10..4.1 " /> <id nullFlavor="NA" /> <code codeSystem="local" code="GFR" displayName="eGFR" /> <statusCode code="completed" /> <component> <observation moodCode="EVN" classCode="OBS"> <templateId root= "2.16.840.1.373689.10..22.4.2" /> <id nullFlavor="NA" /> < code codeSystem="local" code="GFR" displayName="eGFR" /> <statusCode code="completed" /> <effectiveTime value="214080452811" /> < value unit="mL/min" xsi:type="PQ" value="59" /> <interpretationCode codeSystem="local" code="*" /> <referenceRange> < observationRange> <text>>60</text> </observationRange > </referenceRange> </observation> </component> </ organizer> </entry> <entry> <organizer moodCode="EVN" classCode="BATTERY"> <templateId root="2.16.840.1.398496.10..22.4.1" /> <id nullFlavor= "NA" /> <code codeSystem="local" code="PCT" displayName="Procalcitonin" /> <statusCode code="completed" /> <component> <observation moodCode="EVN" classCode="OBS"> <templateId root= "2.16.840.1.509636.10.20.22.4.2" /> <id nullFlavor="NA" /> < code codeSystem="local" code="PCT" displayName="Procalcitonin" /> < statusCode code="completed" /> <effectiveTime value="663440194262" /> <value unit="ng/mL" xsi:type="PQ" value="0.21" /> < interpretationCode codeSystem="local" code="*" /> <referenceRange> <observationRange> <text>0.00-0.09</text> </ observationRange> </referenceRange> </observation> </ component> </organizer> </entry> <entry> <organizer moodCode="EVN" classCode="BATTERY"> <templateId root="10.29.840.1.319247...4.1" /> <id nullFlavor="NA" /> <code codeSystem="local" code="ACETM" displayName="Acetaminophen" /> <statusCode code="completed" /> < component> <observation moodCode="EVN" classCode="OBS"> < templateId root="840.1.593694.07.02.22.4.2" /> <id nullFlavor="NA " /> <code codeSystem="local" code="ACETM" displayName="Acetaminophen" /> <statusCode code="completed" /> <effectiveTime value= "087436579231" /> <value unit="mcg/mL" xsi:type="PQ" value="<10" /> <referenceRange> <observationRange> <text>10- 30</text> </observationRange> </referenceRange> </ observation> </component> </organizer> </entry> <entry> <organizer moodCode="EVN" classCode="BATTERY"> <templateId root= "840.1.162036.07.02.22.4.1" /> <id nullFlavor="NA" /> <code codeSystem="local" code="GLUN" displayName="Glucose NPT" /> <statusCode code="completed" /> <component> <observation moodCode="EVN" classCode="OBS"> <templateId root="10.29.840.1.987710.07.02.22.4.2" /> <id nullFlavor="NA" /> <code codeSystem="local" code="GLUN" displayName="Glucose NPT" /> <statusCode code="completed" /> <effectiveTime value="274177765791" /> <value unit="mg/dL" xsi:type="PQ " value="105" /> <interpretationCode codeSystem="local" code="*" /> <referenceRange> <observationRange> <text>70-100< /text> </observationRange> </referenceRange> </ observation> </component> </organizer> </entry> <entry> <organizer moodCode="EVN" classCode="BATTERY"> <templateId root= "216.840.1.217711.10..22.4.1" /> <id nullFlavor="NA" /> <code codeSystem="local" code="PT" displayName="Protime (INR)" /> <statusCode code="completed" /> <component> <observation moodCode="EVN" classCode="OBS"> <templateId root="216.840.1.659758.10...4.2" /> <id nullFlavor="NA" /> <code codeSystem="local" code="INR" displayName="INR" /> <statusCode code="completed" /> < effectiveTime value="421086322782" /> <value unit="NA" xsi:type="PQ" value="1.3" /> <interpretationCode codeSystem="local" code="*" /> <referenceRange> <observationRange> <text>0.9-1.2</ text> </observationRange> </referenceRange> </ observation> </component> </organizer> </entry> <entry> <organizer moodCode="EVN" classCode="BATTERY"> <templateId root= "216.840.1.827818.10...4.1" /> <id nullFlavor="NA" /> <code codeSystem="local" code="PTT" displayName="PTT" /> <statusCode code= "completed" /> <component> <observation moodCode="EVN" classCode= "OBS"> <templateId root="216.840.1.768416.10..22.4.2" /> < id nullFlavor="NA" /> <code codeSystem="local" code="PTT" displayName= "PTT" /> <statusCode code="completed" /> <effectiveTime value= "043069719461" /> <value unit="seconds" xsi:type="PQ" value="98.6" /> <interpretationCode codeSystem="local" code="*" /> < referenceRange> <observationRange> <text>25.0-35.0</text > </observationRange> </referenceRange> </observation > </component> </organizer> </entry> <entry> <organizer moodCode= "EVN" classCode="BATTERY"> <templateId root="216.840.1.118387.10..22.4.1 " /> <id nullFlavor="NA" /> <code codeSystem="local" code="TROP" displayName="Troponin" /> <statusCode code="completed" /> <component> <observation moodCode="EVN" classCode="OBS"> <templateId root= "2.16.840.1.862500.10..22.4.2" /> <id nullFlavor="NA" /> < code codeSystem="local" code="TROP" displayName="Troponin" /> < statusCode code="completed" /> <effectiveTime value="010244195599" /> <value unit="ng/mL" xsi:type="PQ" value="1.49" /> < interpretationCode codeSystem="local" code="" /> <referenceRange> <observationRange> <text><0.06</text> </ observationRange> </referenceRange> </observation> </ component> </organizer> </entry> <entry> <organizer moodCode="EVN" classCode="BATTERY"> <templateId root="840.1.465481.10.4.1" /> <id nullFlavor="NA" /> <code codeSystem="local" code="GLUN" displayName="Glucose NPT" /> <statusCode code="completed" /> < component> <observation moodCode="EVN" classCode="OBS"> < templateId root="840.1.370962.07.02.22.4.2" /> <id nullFlavor="NA " /> <code codeSystem="local" code="GLUN" displayName="Glucose NPT" / > <statusCode code="completed" /> <effectiveTime value= "582568785937" /> <value unit="mg/dL" xsi:type="PQ" value="289" /> <interpretationCode codeSystem="local" code="*" /> < referenceRange> <observationRange> <text>70-100</text> </observationRange> </referenceRange> </observation> </component> </organizer> </entry> <entry> <organizer moodCode= "EVN" classCode="BATTERY"> <templateId root="840.1.317780.07.02.22.4.1 " /> <id nullFlavor="NA" /> <code codeSystem="local" code="UA" displayName="Urinalysis with reflex microscopic" /> <statusCode code= "completed" /> <component> <observation moodCode="EVN" classCode= "OBS"> <templateId root="840.1.321741.07.02.22.4.2" /> < id nullFlavor="NA" /> <code codeSystem="local" code="UAPP" displayName= "Appearance" /> <statusCode code="completed" /> < effectiveTime value="" /> <value unit="NA" xsi:type="PQ" value="Sl Cloudy" /> <referenceRange> <observationRange> <text /> </observationRange> </referenceRange> </observation> </component> <component> <observation moodCode="EVN" classCode="OBS"> <templateId root= "10.29.840.1.239513.10.4.2" /> <id nullFlavor="NA" /> < code codeSystem="local" code="UBIL" displayName="Bilirubin" /> < statusCode code="completed" /> <effectiveTime value="" /> <value unit="NA" xsi:type="PQ" value="Negative" /> < referenceRange> <observationRange> <text>Negative</text > </observationRange> </referenceRange> </observation > </component> <component> <observation moodCode="EVN" classCode="OBS"> <templateId root="16.840.1.328557.10..4.2" /> <id nullFlavor="NA" /> <code codeSystem="local" code="UBLD" displayName="Blood" /> <statusCode code="completed" /> < effectiveTime value="" /> <value unit="NA" xsi:type="PQ" value="Pos 1+" /> <interpretationCode codeSystem="local" code="*" /> <referenceRange> <observationRange> <text> Negative</text> </observationRange> </referenceRange> </observation> </component> <component> <observation moodCode ="EVN" classCode="OBS"> <templateId root= "10.29.840.1.346765.10..4.2" /> <id nullFlavor="NA" /> < code codeSystem="local" code="UCOLR" displayName="Color" /> < statusCode code="completed" /> <effectiveTime value="" /> <value unit="NA" xsi:type="PQ" value="Yellow" /> < referenceRange> <observationRange> <text /> < /observationRange> </referenceRange> </observation> </ component> <component> <observation moodCode="EVN" classCode="OBS"> <templateId root="10.29.840.1.757237...4.2" /> <id nullFlavor="NA" /> <code codeSystem="local" code="UGLU" displayName= "Glucose, Urine" /> <statusCode code="completed" /> < effectiveTime value="" /> <value unit="" xsi:type="PQ" value="Negative" /> <referenceRange> <observationRange> <text>Negative</text> </observationRange> </ referenceRange> </observation> </component> <component> <observation moodCode="EVN" classCode="OBS"> <templateId root= "10.29.840.1.837178.07.02.22.4.2" /> <id nullFlavor="NA" /> < code codeSystem="local" code="UKET" displayName="Ketones" /> < statusCode code="completed" /> <effectiveTime value="" /> <value unit="" xsi:type="PQ" value="Negative" /> < referenceRange> <observationRange> <text>Negative</text > </observationRange> </referenceRange> </observation > </component> <component> <observation moodCode="EVN" classCode="OBS"> <templateId root="10.29.840.1.662951.07.02.22.4.2" /> <id nullFlavor="NA" /> <code codeSystem="local" code="ULEU" displayName="Leukocyte Esterase" /> <statusCode code="completed" /> <effectiveTime value="" /> <value unit="NA" xsi:type ="PQ" value="Negative" /> <referenceRange> <observationRange > <text>Negative</text> </observationRange> </ referenceRange> </observation> </component> <component> <observation moodCode="EVN" classCode="OBS"> <templateId root= "216.840.1.713289.10..22.4.2" /> <id nullFlavor="NA" /> < code codeSystem="local" code="UNIT" displayName="Nitrites" /> < statusCode code="completed" /> <effectiveTime value="" /> <value unit="NA" xsi:type="PQ" value="Negative" /> < referenceRange> <observationRange> <text>Negative</text > </observationRange> </referenceRange> </observation > </component> <component> <observation moodCode="EVN" classCode="OBS"> <templateId root="216.840.1.971346.10..22.4.2" /> <id nullFlavor="NA" /> <code codeSystem="local" code="UPH" displayName="pH" /> <statusCode code="completed" /> < effectiveTime value="" /> <value unit="NA" xsi:type="PQ" value="5.0" /> <referenceRange> <observationRange> <text>5.0-8.0</text> </observationRange> </ referenceRange> </observation> </component> <component> <observation moodCode="EVN" classCode="OBS"> <templateId root= "16.840.1.120078.07.02.22.4.2" /> <id nullFlavor="NA" /> < code codeSystem="local" code="UPRO" displayName="Protein" /> < statusCode code="completed" /> <effectiveTime value="" /> <value unit="NA" xsi:type="PQ" value="Pos 1+" /> < interpretationCode codeSystem="local" code="*" /> <referenceRange> <observationRange> <text>Negative</text> </ observationRange> </referenceRange> </observation> </ component> <component> <observation moodCode="EVN" classCode="OBS"> <templateId root="10.29.840.1.688194.07.02.22.4.2" /> <id nullFlavor="NA" /> <code codeSystem="local" code="USPG" displayName= "Specific [place]" /> <statusCode code="completed" /> < effectiveTime value="" /> <value unit="NA" xsi:type="PQ" value="1.010" /> <referenceRange> <observationRange> <text>1.003-1.030</text> </observationRange> </ referenceRange> </observation> </component> <component> <observation moodCode="EVN" classCode="OBS"> <templateId root= "10.29.840.1.735848.07.02.22.4.2" /> <id nullFlavor="NA" /> < code codeSystem="local" code="UTYP" displayName="UA Collection type" /> <statusCode code="completed" /> <effectiveTime value="" / > <value unit="NA" xsi:type="PQ" value="Clean Catch" /> < referenceRange> <observationRange> <text /> < /observationRange> </referenceRange> </observation> </ component> <component> <observation moodCode="EVN" classCode="OBS"> <templateId root="16.840.1.498838.07.02.22.4.2" /> <id nullFlavor="NA" /> <code codeSystem="local" code="UURO" displayName= "Urobilinogen" /> <statusCode code="completed" /> < effectiveTime value="" /> <value unit="mg/dL" xsi:type="PQ " value="Negative" /> <referenceRange> <observationRange> <text><1.0</text> </observationRange> </ referenceRange> </observation> </component> </organizer> </entry > <entry> <organizer moodCode="EVN" classCode="BATTERY"> <templateId root="216.840.1.406391.07.02.22.4.1" /> <id nullFlavor="NA" /> <code codeSystem="local" code="UMIC" displayName="Urine Microscopic" /> < statusCode code="completed" /> <component> <observation moodCode= "EVN" classCode="OBS"> <templateId root="216.840.1.952762.10..4.2 " /> <id nullFlavor="NA" /> <code codeSystem="local" code= "UBAC" displayName="Bacteria" /> <statusCode code="completed" /> <effectiveTime value="" /> <value unit="NA" xsi:type= "PQ" value="Rare" /> <referenceRange> <observationRange> <text /> </observationRange> </referenceRange> </observation> </component> <component> <observation moodCode="EVN" classCode="OBS"> <templateId root= "216.840.1.715968.07.02.22.4.2" /> <id nullFlavor="NA" /> < code codeSystem="local" code="UEPI" displayName="Epithelial Cells" /> < statusCode code="completed" /> <effectiveTime value="" /> <value unit="/HPF" xsi:type="PQ" value="0" /> <referenceRange > <observationRange> <text /> </ observationRange> </referenceRange> </observation> </ component> <component> <observation moodCode="EVN" classCode="OBS"> <templateId root="216.840.1.051288.07.02.22.4.2" /> <id nullFlavor="NA" /> <code codeSystem="local" code="UHCST" displayName= "Hyaline Casts" /> <statusCode code="completed" /> < effectiveTime value="" /> <value unit="/LPF" xsi:type="PQ" value="1" /> <referenceRange> <observationRange> <text>0-3</text> </observationRange> </referenceRange> </observation> </component> <component> <observation moodCode="EVN" classCode="OBS"> <templateId root= "216.840.1.738064.07.02.22.4.2" /> <id nullFlavor="NA" /> < code codeSystem="local" code="URBC" displayName="RBC, Urine" /> < statusCode code="completed" /> <effectiveTime value="" /> <value unit="/HPF" xsi:type="PQ" value="0" /> <referenceRange > <observationRange> <text>0-2</text> </ observationRange> </referenceRange> </observation> </ component> <component> <observation moodCode="EVN" classCode="OBS"> <templateId root="840.1.434082.10.4.2" /> <id nullFlavor="NA" /> <code codeSystem="local" code="UMUC" displayName= "Urine Mucus" /> <statusCode code="completed" /> < effectiveTime value="" /> <value unit="NA" xsi:type="PQ" value="Present" /> <referenceRange> <observationRange> <text /> </observationRange> </referenceRange> </observation> </component> <component> <observation moodCode="EVN" classCode="OBS"> <templateId root= "840.1.197842.07.02.22.4.2" /> <id nullFlavor="NA" /> < code codeSystem="local" code="UWBC" displayName="WBC, Urine" /> < statusCode code="completed" /> <effectiveTime value="" /> <value unit="/HPF" xsi:type="PQ" value="0" /> <referenceRange > <observationRange> <text>0-4</text> </ observationRange> </referenceRange> </observation> </ component> </organizer> </entry> <entry> <organizer moodCode="EVN" classCode="BATTERY"> <templateId root="840.1.756712.07.02.22.4.1" /> <id nullFlavor="NA" /> <code codeSystem="local" code="ACET" displayName="Acetone" /> <statusCode code="completed" /> <component> <observation moodCode="EVN" classCode="OBS"> <templateId root= "840.1.592604.07.02.22.4.2" /> <id nullFlavor="NA" /> < code codeSystem="local" code="ACET" displayName="Acetone" /> < statusCode code="completed" /> <effectiveTime value="538256660739" /> <value unit="mg/dL" xsi:type="PQ" value="Negative" /> < referenceRange> <observationRange> <text>Negative</text > </observationRange> </referenceRange> </observation > </component> </organizer> </entry> <entry> <organizer moodCode= "EVN" classCode="BATTERY"> <templateId root="216.840.1.903962.10..22.4.1 " /> <id nullFlavor="NA" /> <code codeSystem="local" code="CORTA" displayName="Cortisol AM" /> <statusCode code="completed" /> < component> <observation moodCode="EVN" classCode="OBS"> < templateId root="16.840.1.615110.10..22.4.2" /> <id nullFlavor="NA " /> <code codeSystem="local" code="CORTA" displayName="Cortisol AM" / > <statusCode code="completed" /> <effectiveTime value= "953399841564" /> <value unit="ug/dL" xsi:type="PQ" value="8" /> <referenceRange> <observationRange> <text>7-18</text > </observationRange> </referenceRange> </observation > </component> </organizer> </entry> <entry> <organizer moodCode= "EVN" classCode="BATTERY"> <templateId root="16.840.1.649773.10..22.4.1 " /> <id nullFlavor="NA" /> <code codeSystem="local" code="INS" displayName="Insulin" /> <statusCode code="completed" /> <component> <observation moodCode="EVN" classCode="OBS"> <templateId root= "2.16.840.1.012585.10..22.4.2" /> <id nullFlavor="NA" /> < code codeSystem="local" code="INS" displayName="Insulin" /> < statusCode code="completed" /> <effectiveTime value="232881194284" /> <value unit="uIU/mL" xsi:type="PQ" value="89" /> < interpretationCode codeSystem="local" code="*" /> <referenceRange> <observationRange> <text>2-23</text> </ observationRange> </referenceRange> </observation> </ component> </organizer> </entry> <entry> <organizer moodCode="EVN" classCode="BATTERY"> <templateId root="216.840.1.604775.10..22.4.1" /> <id nullFlavor="NA" /> <code codeSystem="local" code="TROP" displayName="Troponin" /> <statusCode code="completed" /> <component> <observation moodCode="EVN" classCode="OBS"> <templateId root= "2.16.840.1.872971.10..22.4.2" /> <id nullFlavor="NA" /> < code codeSystem="local" code="TROP" displayName="Troponin" /> < statusCode code="completed" /> <effectiveTime value="919051963749" /> <value unit="ng/mL" xsi:type="PQ" value="2.07" /> < interpretationCode codeSystem="local" code="" /> <referenceRange> <observationRange> <text><0.06</text> </ observationRange> </referenceRange> </observation> </ component> </organizer> </entry> <entry> <organizer moodCode="EVN" classCode="BATTERY"> <templateId root="10.29.840.1.128252.10..22.4.1" /> <id nullFlavor="NA" /> <code codeSystem="local" code="LIVER" displayName="Hepatic Function Panel" /> <statusCode code="completed" /> <component> <observation moodCode="EVN" classCode="OBS"> < templateId root="10.29.840.1.622291.10..22.4.2" /> <id nullFlavor="NA " /> <code codeSystem="local" code="ALB" displayName="Albumin" /> <statusCode code="completed" /> <effectiveTime value="306985237463 " /> <value unit="g/dL" xsi:type="PQ" value="2.9" /> < interpretationCode codeSystem="local" code="*" /> <referenceRange> <observationRange> <text>3.5-4.8</text> </ observationRange> </referenceRange> </observation> </ component> <component> <observation moodCode="EVN" classCode="OBS"> <templateId root="10.29.840.1.562138.10..22.4.2" /> <id nullFlavor="NA" /> <code codeSystem="local" code="ALP" displayName= "Alkaline Phosphatase" /> <statusCode code="completed" /> < effectiveTime value="604301459228" /> <value unit="U/L" xsi:type="PQ" value="99" /> <referenceRange> <observationRange> <text>26-104</text> </observationRange> </referenceRange > </observation> </component> <component> <observation moodCode="EVN" classCode="OBS"> <templateId root= "840.1.327350.10..22.4.2" /> <id nullFlavor="NA" /> < code codeSystem="local" code="ALT" displayName="ALT (SGPT)" /> < statusCode code="completed" /> <effectiveTime value="724320914872" /> <value unit="U/L" xsi:type="PQ" value="1721" /> < interpretationCode codeSystem="local" code="*" /> <referenceRange> <observationRange> <text>17-63</text> </ observationRange> </referenceRange> </observation> </ component> <component> <observation moodCode="EVN" classCode="OBS"> <templateId root="10.29.840.1.132160.10.22.4.2" /> <id nullFlavor="NA" /> <code codeSystem="local" code="BILID" displayName= "Bilirubin Direct" /> <statusCode code="completed" /> < effectiveTime value="" /> <value unit="mg/dL" xsi:type="PQ " value="0.6" /> <interpretationCode codeSystem="local" code="*" /> <referenceRange> <observationRange> <text>0.0-0.2 </text> </observationRange> </referenceRange> </ observation> </component> <component> <observation moodCode= "EVN" classCode="OBS"> <templateId root="10.29.840.1.576593.10.2022.4.2 " /> <id nullFlavor="NA" /> <code codeSystem="local" code= "BILII" displayName="Bilirubin Indirect" /> <statusCode code="completed " /> <effectiveTime value="163545637810" /> <value unit="mg/dL " xsi:type="PQ" value="0.6" /> <referenceRange> < observationRange> <text>0.0-1.0</text> </ observationRange> </referenceRange> </observation> </ component> <component> <observation moodCode="EVN" classCode="OBS"> <templateId root="16.840.1.847362.10..22.4.2" /> <id nullFlavor="NA" /> <code codeSystem="local" code="BILIT" displayName= "Bilirubin Total" /> <statusCode code="completed" /> < effectiveTime value="658964543379" /> <value unit="mg/dL" xsi:type="PQ " value="1.2" /> <referenceRange> <observationRange> <text>0.2-1.2</text> </observationRange> </ referenceRange> </observation> </component> <component> <observation moodCode="EVN" classCode="OBS"> <templateId root= "10.29.840.1.286548.10...4.2" /> <id nullFlavor="NA" /> < code codeSystem="local" code="TP" displayName="Protein" /> <statusCode code="completed" /> <effectiveTime value="487682672405" /> < value unit="g/dL" xsi:type="PQ" value="6.0" /> <interpretationCode codeSystem="local" code="*" /> <referenceRange> < observationRange> <text>6.1-7.9</text> </ observationRange> </referenceRange> </observation> </ component> </organizer> </entry> <entry> <organizer moodCode="EVN" classCode="BATTERY"> <templateId root="16.840.1.217322.10..22.4.1" /> <id nullFlavor="NA" /> <code codeSystem="local" code="Z2064" displayName="Beta-Hydroxybutyrate, Serum" /> <statusCode code="completed" / > <component> <observation moodCode="EVN" classCode="OBS"> <templateId root="16.840.1.641352.10..22.4.2" /> <id nullFlavor="NA " /> <code codeSystem="local" code="Z2064" displayName="Beta- Hydroxybutyrate, Serum" /> <statusCode code="completed" /> < effectiveTime value="742701376256" /> <value unit="mmol/L" xsi:type="PQ " value="0.1" /> <referenceRange> <observationRange> <text><0.4</text> </observationRange> </ referenceRange> </observation> </component> </organizer> </entry > <entry> <organizer moodCode="EVN" classCode="BATTERY"> <templateId root="10.29.840.1.669284.10...4.1" /> <id nullFlavor="NA" /> <code codeSystem="local" code="Z0249" displayName="Growth Hormone" /> < statusCode code="completed" /> <component> <observation moodCode= "EVN" classCode="OBS"> <templateId root="10.29.840.1.859578.10..22.4.2 " /> <id nullFlavor="NA" /> <code codeSystem="local" code= "Z0249" displayName="Growth Hormone" /> <statusCode code="completed" / > <effectiveTime value="531039921412" /> <value unit="ng/mL" xsi:type="PQ" value="0.36" /> <referenceRange> < observationRange> <text /> </observationRange> </referenceRange> </observation> </component> </organizer> </ entry> <entry> <organizer moodCode="EVN" classCode="BATTERY"> < templateId root="10.29.840.1.436872.07.02.22.4.1" /> <id nullFlavor="NA" /> <code codeSystem="local" code="GLUN" displayName="Glucose NPT" /> < statusCode code="completed" /> <component> <observation moodCode= "EVN" classCode="OBS"> <templateId root="840.1.138426.07.02.224.2 " /> <id nullFlavor="NA" /> <code codeSystem="local" code= "GLUN" displayName="Glucose NPT" /> <statusCode code="completed" /> <effectiveTime value="167936367346" /> <value unit="mg/dL" xsi: type="PQ" value="122" /> <interpretationCode codeSystem="local" code="* " /> <referenceRange> <observationRange> <text> 70-100</text> </observationRange> </referenceRange> < /observation> </component> </organizer> </entry> <entry> < organizer moodCode="EVN" classCode="BATTERY"> <templateId root= "840.1.675160.07.02.224.1" /> <id nullFlavor="NA" /> <code codeSystem="local" code="GLUN" displayName="Glucose NPT" /> <statusCode code="completed" /> <component> <observation moodCode="EVN" classCode="OBS"> <templateId root="10.29.840.1.313221.07.02.22.4.2" /> <id nullFlavor="NA" /> <code codeSystem="local" code="GLUN" displayName="Glucose NPT" /> <statusCode code="completed" /> <effectiveTime value="099981461866" /> <value unit="mg/dL" xsi:type="PQ " value="103" /> <interpretationCode codeSystem="local" code="*" /> <referenceRange> <observationRange> <text>70-100< /text> </observationRange> </referenceRange> </ observation> </component> </organizer> </entry> <entry> <organizer moodCode="EVN" classCode="BATTERY"> <templateId root= "16.840.1.009181.10..22.4.1" /> <id nullFlavor="NA" /> <code codeSystem="local" code="TROP" displayName="Troponin" /> <statusCode code= "completed" /> <component> <observation moodCode="EVN" classCode= "OBS"> <templateId root="10.29.840.1.388156.10..22.4.2" /> < id nullFlavor="NA" /> <code codeSystem="local" code="TROP" displayName= "Troponin" /> <statusCode code="completed" /> <effectiveTime value="243919483898" /> <value unit="ng/mL" xsi:type="PQ" value="3.52" /> <interpretationCode codeSystem="local" code="" /> < referenceRange> <observationRange> <text><0.06</text > </observationRange> </referenceRange> </observation > </component> </organizer> </entry> <entry> <organizer moodCode= "EVN" classCode="BATTERY"> <templateId root="10.29.840.1.508197.10.20.22.4.1 " /> <id nullFlavor="NA" /> <code codeSystem="local" code="CBCND" displayName="CBC With Platelet No Differential" /> <statusCode code= "completed" /> <component> <observation moodCode="EVN" classCode= "OBS"> <templateId root="10.29.840.1.540328.10.22.4.2" /> < id nullFlavor="NA" /> <code codeSystem="local" code="HCT" displayName= "HCT" /> <statusCode code="completed" /> <effectiveTime value= "" /> <value unit="%" xsi:type="PQ" value="34.5" /> <interpretationCode codeSystem="local" code="*" /> < referenceRange> <observationRange> <text>42.0-52.0</text > </observationRange> </referenceRange> </observation > </component> <component> <observation moodCode="EVN" classCode="OBS"> <templateId root="10.29.840.1.016709.1022.4.2" /> <id nullFlavor="NA" /> <code codeSystem="local" code="HGB" displayName="HGB" /> <statusCode code="completed" /> < effectiveTime value="" /> <value unit="g/dL" xsi:type="PQ" value="11.2" /> <interpretationCode codeSystem="local" code="*" /> <referenceRange> <observationRange> <text>14.0- 18.0</text> </observationRange> </referenceRange> </ observation> </component> <component> <observation moodCode= "EVN" classCode="OBS"> <templateId root="10.29.840.1.544648.10.2022.4.2 " /> <id nullFlavor="NA" /> <code codeSystem="local" code="MCH " displayName="MCH" /> <statusCode code="completed" /> < effectiveTime value="" /> <value unit="pg" xsi:type="PQ" value="28.7" /> <referenceRange> <observationRange> <text>27.0-32.0</text> </observationRange> </ referenceRange> </observation> </component> <component> <observation moodCode="EVN" classCode="OBS"> <templateId root= "216.840.1.158058.10..4.2" /> <id nullFlavor="NA" /> < code codeSystem="local" code="MCHC" displayName="MCHC" /> <statusCode code="completed" /> <effectiveTime value="" /> < value unit="g/dL" xsi:type="PQ" value="32.5" /> <referenceRange> <observationRange> <text>32.0-36.0</text> </ observationRange> </referenceRange> </observation> </ component> <component> <observation moodCode="EVN" classCode="OBS"> <templateId root="216.840.1.665824.10..4.2" /> <id nullFlavor="NA" /> <code codeSystem="local" code="MCV" displayName="MCV " /> <statusCode code="completed" /> <effectiveTime value= "" /> <value unit="fL" xsi:type="PQ" value="88.5" /> <referenceRange> <observationRange> <text>82.0-99.0< /text> </observationRange> </referenceRange> </ observation> </component> <component> <observation moodCode= "EVN" classCode="OBS"> <templateId root="216.840.1.909701.07.02.22.4.2 " /> <id nullFlavor="NA" /> <code codeSystem="local" code="MPV " displayName="MPV" /> <statusCode code="completed" /> < effectiveTime value="" /> <value unit="fL" xsi:type="PQ" value="11.9" /> <referenceRange> <observationRange> <text>9.4-12.3</text> </observationRange> </ referenceRange> </observation> </component> <component> <observation moodCode="EVN" classCode="OBS"> <templateId root= "216.840.1.428928.07.02.224.2" /> <id nullFlavor="NA" /> < code codeSystem="local" code="PLT" displayName="Platelet Count" /> < statusCode code="completed" /> <effectiveTime value="" /> <value unit="K/uL" xsi:type="PQ" value="144" /> < interpretationCode codeSystem="local" code="*" /> <referenceRange> <observationRange> <text>150-400</text> </ observationRange> </referenceRange> </observation> </ component> <component> <observation moodCode="EVN" classCode="OBS"> <templateId root="10.29.840.1.182799.07.02.224.2" /> <id nullFlavor="NA" /> <code codeSystem="local" code="RBC" displayName="RBC " /> <statusCode code="completed" /> <effectiveTime value= "" /> <value unit="10*6/uL" xsi:type="PQ" value="3.90" /> <interpretationCode codeSystem="local" code="*" /> < referenceRange> <observationRange> <text>4.60-6.20</text > </observationRange> </referenceRange> </observation > </component> <component> <observation moodCode="EVN" classCode="OBS"> <templateId root="10.29.840.1.469714.10.20.22.4.2" /> <id nullFlavor="NA" /> <code codeSystem="local" code="RDW" displayName="RDW" /> <statusCode code="completed" /> < effectiveTime value="" /> <value unit="%" xsi:type="PQ " value="15.9" /> <interpretationCode codeSystem="local" code="*" /> <referenceRange> <observationRange> <text>11.5- 14.5</text> </observationRange> </referenceRange> </ observation> </component> <component> <observation moodCode= "EVN" classCode="OBS"> <templateId root="10.29.840.1.364300.10.22.4.2 " /> <id nullFlavor="NA" /> <code codeSystem="local" code= "WBCIR" displayName="WBC" /> <statusCode code="completed" /> < effectiveTime value="231612382557" /> <value unit="K/uL" xsi:type="PQ" value="8.6" /> <referenceRange> <observationRange> <text>4.8-10.8</text> </observationRange> </ referenceRange> </observation> </component> </organizer> </entry > <entry> <organizer moodCode="EVN" classCode="BATTERY"> <templateId root="10.29.840.1.090478.10.20.22.4.1" /> <id nullFlavor="NA" /> <code codeSystem="local" code="LACID" displayName="Lactic Acid Venous" /> < statusCode code="completed" /> <component> <observation moodCode= "EVN" classCode="OBS"> <templateId root="216.840.1.845823.10..4.2 " /> <id nullFlavor="NA" /> <code codeSystem="local" code= "LACID" displayName="Lactic Acid Venous" /> <statusCode code="completed " /> <effectiveTime value="930474798026" /> <value unit="mEq/L " xsi:type="PQ" value="1.5" /> <referenceRange> < observationRange> <text>0.5-2.0</text> </ observationRange> </referenceRange> </observation> </ component> </organizer> </entry> <entry> <organizer moodCode="EVN" classCode="BATTERY"> <templateId root="16.840.1.699512.10..4.1" /> <id nullFlavor="NA" /> <code codeSystem="local" code="PTT" displayName ="PTT" /> <statusCode code="completed" /> <component> < observation moodCode="EVN" classCode="OBS"> <templateId root= "16.840.1.652659.10...4.2" /> <id nullFlavor="NA" /> < code codeSystem="local" code="PTT" displayName="PTT" /> <statusCode code="completed" /> <effectiveTime value="319476016168" /> < value unit="seconds" xsi:type="PQ" value="140.9" /> < interpretationCode codeSystem="local" code="" /> <referenceRange> <observationRange> <text>25.0-35.0</text> </ observationRange> </referenceRange> </observation> </ component> </organizer> </entry> <entry> <organizer moodCode="EVN" classCode="BATTERY"> <templateId root="840.1.530361.07.02.22.4.1" /> <id nullFlavor="NA" /> <code codeSystem="local" code="TROP" displayName="Troponin" /> <statusCode code="completed" /> <component> <observation moodCode="EVN" classCode="OBS"> <templateId root= "840.1.346638.07.02.22.4.2" /> <id nullFlavor="NA" /> < code codeSystem="local" code="TROP" displayName="Troponin" /> < statusCode code="completed" /> <effectiveTime value="331086947817" /> <value unit="ng/mL" xsi:type="PQ" value="2.97" /> < interpretationCode codeSystem="local" code="" /> <referenceRange> <observationRange> <text><0.06</text> </ observationRange> </referenceRange> </observation> </ component> </organizer> </entry> <entry> <organizer moodCode="EVN" classCode="BATTERY"> <templateId root="840.1.958037.07.02.22.4.1" /> <id nullFlavor="NA" /> <code codeSystem="local" code="CMP" displayName ="Comprehensive Metabolic Panel (CMP)" /> <statusCode code="completed" /> <component> <observation moodCode="EVN" classCode="OBS"> < templateId root="10.29.840.1.719535.10.4.2" /> <id nullFlavor="NA " /> <code codeSystem="local" code="ALB" displayName="Albumin" /> <statusCode code="completed" /> <effectiveTime value="[id number] " /> <value unit="g/dL" xsi:type="PQ" value="3.0" /> < interpretationCode codeSystem="local" code="*" /> <referenceRange> <observationRange> <text>3.5-4.8</text> </ observationRange> </referenceRange> </observation> </ component> <component> <observation moodCode="EVN" classCode="OBS"> <templateId root="2.16.840.1.267970.10.20.22.4.2" /> <id nullFlavor="NA" /> <code codeSystem="local" code="ALP" displayName= "Alkaline Phosphatase" /> <statusCode code="completed" /> < effectiveTime value="912727652259" /> <value unit="U/L" xsi:type="PQ" value="101" /> <referenceRange> <observationRange> <text>26-104</text> </observationRange> </ referenceRange> </observation> </component> <component> <observation moodCode="EVN" classCode="OBS"> <templateId root= "216.840.1.102976.10.20.22.4.2" /> <id nullFlavor="NA" /> < code codeSystem="local" code="ALT" displayName="ALT (SGPT)" /> < statusCode code="completed" /> <effectiveTime value="002582421695" /> <value unit="U/L" xsi:type="PQ" value="1366" /> < interpretationCode codeSystem="local" code="*" /> <referenceRange> <observationRange> <text>17-63</text> </ observationRange> </referenceRange> </observation> </ component> <component> <observation moodCode="EVN" classCode="OBS"> <templateId root="16.840.1.995190.10..22.4.2" /> <id nullFlavor="NA" /> <code codeSystem="local" code="AGAP" displayName= "Anion Gap" /> <statusCode code="completed" /> <effectiveTime value="" /> <value unit="mEq/L" xsi:type="PQ" value="12" / > <referenceRange> <observationRange> <text>3- 20</text> </observationRange> </referenceRange> </ observation> </component> <component> <observation moodCode= "EVN" classCode="OBS"> <templateId root="10.29.840.1.930184.10..4.2 " /> <id nullFlavor="NA" /> <code codeSystem="local" code="AST " displayName="AST (SGOT)" /> <statusCode code="completed" /> <effectiveTime value="" /> <value unit="U/L" xsi:type="PQ" value="1876" /> <interpretationCode codeSystem="local" code="*" /> <referenceRange> <observationRange> <text>15-41</ text> </observationRange> </referenceRange> </ observation> </component> <component> <observation moodCode= "EVN" classCode="OBS"> <templateId root="10.29.840.1.103811.10..22.4.2 " /> <id nullFlavor="NA" /> <code codeSystem="local" code= "BILIT" displayName="Bilirubin Total" /> <statusCode code="completed" / > <effectiveTime value="" /> <value unit="mg/dL" xsi:type="PQ" value="1.4" /> <interpretationCode codeSystem="local" code="*" /> <referenceRange> <observationRange> <text>0.2-1.2</text> </observationRange> </referenceRange > </observation> </component> <component> <observation moodCode="EVN" classCode="OBS"> <templateId root= "16.840.1.974449.10..4.2" /> <id nullFlavor="NA" /> < code codeSystem="local" code="BUN" displayName="BUN" /> <statusCode code="completed" /> <effectiveTime value="" /> < value unit="mg/dL" xsi:type="PQ" value="35" /> <interpretationCode codeSystem="local" code="*" /> <referenceRange> < observationRange> <text>4-20</text> </observationRange> </referenceRange> </observation> </component> < component> <observation moodCode="EVN" classCode="OBS"> < templateId root="10.29.840.1.100723.07.02.22.4.2" /> <id nullFlavor="NA " /> <code codeSystem="local" code="CA" displayName="Calcium" /> <statusCode code="completed" /> <effectiveTime value=" " /> <value unit="mg/dL" xsi:type="PQ" value="7.7" /> < interpretationCode codeSystem="local" code="*" /> <referenceRange> <observationRange> <text>8.6-10.0</text> </ observationRange> </referenceRange> </observation> </ component> <component> <observation moodCode="EVN" classCode="OBS"> <templateId root="10.29.840.1.963754.07.02.22.4.2" /> <id nullFlavor="NA" /> <code codeSystem="local" code="CL" displayName= "Chloride" /> <statusCode code="completed" /> <effectiveTime value="546873113937" /> <value unit="mEq/L" xsi:type="PQ" value="100" / > <referenceRange> <observationRange> <text>99- 109</text> </observationRange> </referenceRange> </ observation> </component> <component> <observation moodCode= "EVN" classCode="OBS"> <templateId root="2.16.840.1.217715.10...4.2 " /> <id nullFlavor="NA" /> <code codeSystem="local" code="CO2 " displayName="CO2" /> <statusCode code="completed" /> < effectiveTime value="470487787695" /> <value unit="mEq/L" xsi:type="PQ " value="19" /> <interpretationCode codeSystem="local" code="*" /> <referenceRange> <observationRange> <text>22-32</ text> </observationRange> </referenceRange> </ observation> </component> <component> <observation moodCode= "EVN" classCode="OBS"> <templateId root="2.16.840.1.570890.10...4.2 " /> <id nullFlavor="NA" /> <code codeSystem="local" code= "CREAT" displayName="Creatinine" /> <statusCode code="completed" /> <effectiveTime value="883675678902" /> <value unit="mg/dL" xsi: type="PQ" value="1.43" /> <interpretationCode codeSystem="local" code= "*" /> <referenceRange> <observationRange> < text>0.64-1.27</text> </observationRange> </referenceRange> </observation> </component> <component> <observation moodCode="EVN" classCode="OBS"> <templateId root= "16.840.1.537707.10.4.2" /> <id nullFlavor="NA" /> < code codeSystem="local" code="GLOB" displayName="Globulin" /> < statusCode code="completed" /> <effectiveTime value="" /> <value unit="g/dL" xsi:type="PQ" value="3.0" /> < referenceRange> <observationRange> <text>1.9-4.3</text> </observationRange> </referenceRange> </observation > </component> <component> <observation moodCode="EVN" classCode="OBS"> <templateId root="10.29.840.1.462664.07.02.22.4.2" /> <id nullFlavor="NA" /> <code codeSystem="local" code="GLU" displayName="Glucose" /> <statusCode code="completed" /> < effectiveTime value="" /> <value unit="mg/dL" xsi:type="PQ " value="128" /> <interpretationCode codeSystem="local" code="*" /> <referenceRange> <observationRange> <text>70-100< /text> </observationRange> </referenceRange> </ observation> </component> <component> <observation moodCode= "EVN" classCode="OBS"> <templateId root="16.840.1.562040...4.2 " /> <id nullFlavor="NA" /> <code codeSystem="local" code="K" displayName="Potassium" /> <statusCode code="completed" /> < effectiveTime value="" /> <value unit="mEq/L" xsi:type="PQ " value="4.3" /> <referenceRange> <observationRange> <text>3.6-5.1</text> </observationRange> </ referenceRange> </observation> </component> <component> <observation moodCode="EVN" classCode="OBS"> <templateId root= "216.840.1.053047.10..4.2" /> <id nullFlavor="NA" /> < code codeSystem="local" code="TP" displayName="Protein" /> <statusCode code="completed" /> <effectiveTime value="351187144728" /> < value unit="g/dL" xsi:type="PQ" value="6.0" /> <interpretationCode codeSystem="local" code="*" /> <referenceRange> < observationRange> <text>6.1-7.9</text> </ observationRange> </referenceRange> </observation> </ component> <component> <observation moodCode="EVN" classCode="OBS"> <templateId root="16.840.1.478017.07.02.22.4.2" /> <id nullFlavor="NA" /> <code codeSystem="local" code="NA" displayName= "Sodium" /> <statusCode code="completed" /> <effectiveTime value="107874051472" /> <value unit="mEq/L" xsi:type="PQ" value="131" / > <interpretationCode codeSystem="local" code="*" /> < referenceRange> <observationRange> <text>136-144</text> </observationRange> </referenceRange> </observation > </component> </organizer> </entry> <entry> <organizer moodCode= "EVN" classCode="BATTERY"> <templateId root="16.840.1.158538.07.02.22.4.1 " /> <id nullFlavor="NA" /> <code codeSystem="local" code="GFR" displayName="eGFR" /> <statusCode code="completed" /> <component> <observation moodCode="EVN" classCode="OBS"> <templateId root= "840.1.313853.07.02.22.4.2" /> <id nullFlavor="NA" /> < code codeSystem="local" code="GFR" displayName="eGFR" /> <statusCode code="completed" /> <effectiveTime value="679314310647" /> < value unit="mL/min" xsi:type="PQ" value="53" /> <interpretationCode codeSystem="local" code="*" /> <referenceRange> < observationRange> <text>>60</text> </observationRange > </referenceRange> </observation> </component> </ organizer> </entry> <entry> <organizer moodCode="EVN" classCode="BATTERY"> <templateId root="840.1.642955.07.02.224.1" /> <id nullFlavor= "NA" /> <code codeSystem="local" code="GLUN" displayName="Glucose NPT" /> <statusCode code="completed" /> <component> <observation moodCode="EVN" classCode="OBS"> <templateId root= "840.1.084280.07.02.22.4.2" /> <id nullFlavor="NA" /> < code codeSystem="local" code="GLUN" displayName="Glucose NPT" /> < statusCode code="completed" /> <effectiveTime value="842057576143" /> <value unit="mg/dL" xsi:type="PQ" value="129" /> < interpretationCode codeSystem="local" code="*" /> <referenceRange> <observationRange> <text>70-100</text> </ observationRange> </referenceRange> </observation> </ component> </organizer> </entry> <entry> <organizer moodCode="EVN" classCode="BATTERY"> <templateId root="10.29.840.1.462904.10..4.1" /> <id nullFlavor="NA" /> <code codeSystem="local" code="PTT" displayName ="PTT" /> <statusCode code="completed" /> <component> < observation moodCode="EVN" classCode="OBS"> <templateId root= "10.29.840.1.268695.07.02.22.4.2" /> <id nullFlavor="NA" /> < code codeSystem="local" code="PTT" displayName="PTT" /> <statusCode code="completed" /> <effectiveTime value="033898817265" /> < value unit="seconds" xsi:type="PQ" value="102.6" /> < interpretationCode codeSystem="local" code="*" /> <referenceRange> <observationRange> <text>25.0-35.0</text> </ observationRange> </referenceRange> </observation> </ component> </organizer> </entry> <entry> <organizer moodCode="EVN" classCode="BATTERY"> <templateId root="10.29.840.1.408198.22.4.1" /> <id nullFlavor="NA" /> <code codeSystem="local" code="GLUN" displayName="Glucose NPT" /> <statusCode code="completed" /> < component> <observation moodCode="EVN" classCode="OBS"> < templateId root="10.29.840.1.186159.07.02.22.4.2" /> <id nullFlavor="NA " /> <code codeSystem="local" code="GLUN" displayName="Glucose NPT" / > <statusCode code="completed" /> <effectiveTime value= "370586159730" /> <value unit="mg/dL" xsi:type="PQ" value="90" /> <referenceRange> <observationRange> <text>70-100</ text> </observationRange> </referenceRange> </ observation> </component> </organizer> </entry> <entry> <organizer moodCode="EVN" classCode="BATTERY"> <templateId root= "216.840.1.041387.07.02.22.4.1" /> <id nullFlavor="NA" /> <code codeSystem="local" code="ABGRT" displayName="Blood Gases, Arterial (RT)" /> <statusCode code="completed" /> <component> <observation moodCode= "EVN" classCode="OBS"> <templateId root="216.840.1.426715.10...4.2 " /> <id nullFlavor="NA" /> <code codeSystem="local" code="YNES " displayName="Arterial Base Excess" /> <statusCode code="completed" / > <effectiveTime value="024297677534" /> <value unit="NA" xsi: type="PQ" value="-5" /> <interpretationCode codeSystem="local" code="* " /> <referenceRange> <observationRange> <text> 0-2</text> </observationRange> </referenceRange> </ observation> </component> <component> <observation moodCode= "EVN" classCode="OBS"> <templateId root="16.840.1.424310.10..4.2 " /> <id nullFlavor="NA" /> <code codeSystem="local" code= "AHCO3" displayName="Arterial Bicarbonate" /> <statusCode code= "completed" /> <effectiveTime value="970926730165" /> <value unit="mEq/L" xsi:type="PQ" value="19" /> <interpretationCode codeSystem ="local" code="*" /> <referenceRange> <observationRange> <text>22-26</text> </observationRange> </ referenceRange> </observation> </component> <component> <observation moodCode="EVN" classCode="OBS"> <templateId root= "2.16.840.1.192168.10..4.2" /> <id nullFlavor="NA" /> < code codeSystem="local" code="AOSAT" displayName="Arterial O2 Saturation" /> <statusCode code="completed" /> <effectiveTime value= "198790896356" /> <value unit="%" xsi:type="PQ" value="93.2" /> <referenceRange> <observationRange> <text>90.0- 97.0</text> </observationRange> </referenceRange> </ observation> </component> <component> <observation moodCode= "EVN" classCode="OBS"> <templateId root="2.16.840.1.595126.10..4.2 " /> <id nullFlavor="NA" /> <code codeSystem="local" code= "APCO2" displayName="Arterial PCO2" /> <statusCode code="completed" /> <effectiveTime value="" /> <value unit="mmHg" xsi :type="PQ" value="29" /> <interpretationCode codeSystem="local" code="* " /> <referenceRange> <observationRange> <text> 35-45</text> </observationRange> </referenceRange> </ observation> </component> <component> <observation moodCode= "EVN" classCode="OBS"> <templateId root="10.29.840.1.226050.10.4.2 " /> <id nullFlavor="NA" /> <code codeSystem="local" code="APH " displayName="Arterial PH" /> <statusCode code="completed" /> <effectiveTime value="485594604333" /> <value unit="NA" xsi:type="PQ " value="7.43" /> <referenceRange> <observationRange> <text>7.35-7.45</text> </observationRange> </ referenceRange> </observation> </component> <component> <observation moodCode="EVN" classCode="OBS"> <templateId root= "10.29.840.1.597544.07.02.22.4.2" /> <id nullFlavor="NA" /> < code codeSystem="local" code="APO2" displayName="Arterial PO2" /> < statusCode code="completed" /> <effectiveTime value="505868484977" /> <value unit="mmHg" xsi:type="PQ" value="66" /> < interpretationCode codeSystem="local" code="*" /> <referenceRange> <observationRange> <text>80-100</text> </ observationRange> </referenceRange> </observation> </ component> <component> <observation moodCode="EVN" classCode="OBS"> <templateId root="10.29.840.1.616790...4.2" /> <id nullFlavor="NA" /> <code codeSystem="local" code="AFLOW" displayName= "Arterial LPM" /> <statusCode code="completed" /> < effectiveTime value="793837134811" /> <value unit="L/min" xsi:type="PQ " value="2.00" /> <referenceRange> <observationRange> <text /> </observationRange> </referenceRange> </observation> </component> <component> <observation moodCode="EVN" classCode="OBS"> <templateId root= "840.1.276737.10.22.4.2" /> <id nullFlavor="NA" /> < code codeSystem="local" code="AO2PN" displayName="O2 Panel" /> < statusCode code="completed" /> <effectiveTime value="327506631050" /> <value unit="" xsi:type="PQ" value="SEE BELOW" /> < referenceRange> <observationRange> <text /> < /observationRange> </referenceRange> </observation> </ component> </organizer> </entry> <entry> <organizer moodCode="EVN" classCode="BATTERY"> <templateId root="840.1.497537.1022.4.1" /> <id nullFlavor="NA" /> <code codeSystem="local" code="PTT" displayName ="PTT" /> <statusCode code="completed" /> <component> < observation moodCode="EVN" classCode="OBS"> <templateId root= "10.29.840.1.966961.10.2022.4.2" /> <id nullFlavor="NA" /> < code codeSystem="local" code="PTT" displayName="PTT" /> <statusCode code="completed" /> <effectiveTime value="012052988970" /> < value unit="seconds" xsi:type="PQ" value="84.9" /> <interpretationCode codeSystem="local" code="*" /> <referenceRange> < observationRange> <text>25.0-35.0</text> </ observationRange> </referenceRange> </observation> </ component> </organizer> </entry> <entry> <organizer moodCode="EVN" classCode="BATTERY"> <templateId root="840.1.712120.07.02.22.4.1" /> <id nullFlavor="NA" /> <code codeSystem="local" code="TROP" displayName="Troponin" /> <statusCode code="completed" /> <component> <observation moodCode="EVN" classCode="OBS"> <templateId root= "840.1.489011.07.02.22.4.2" /> <id nullFlavor="NA" /> < code codeSystem="local" code="TROP" displayName="Troponin" /> < statusCode code="completed" /> <effectiveTime value="753863928849" /> <value unit="ng/mL" xsi:type="PQ" value="2.02" /> < interpretationCode codeSystem="local" code="" /> <referenceRange> <observationRange> <text><0.06</text> </ observationRange> </referenceRange> </observation> </ component> </organizer> </entry> <entry> <organizer moodCode="EVN" classCode="BATTERY"> <templateId root="840.1.790471.07.02.22.4.1" /> <id nullFlavor="NA" /> <code codeSystem="local" code="HA1C" displayName="Hemoglobin A1C" /> <statusCode code="completed" /> < component> <observation moodCode="EVN" classCode="OBS"> < templateId root="840.1.272550.10...4.2" /> <id nullFlavor="NA " /> <code codeSystem="local" code="HA1C" displayName="Hemoglobin A1C" /> <statusCode code="completed" /> <effectiveTime value= "974537972808" /> <value unit="%" xsi:type="PQ" value="5.7" /> <interpretationCode codeSystem="local" code="*" /> < referenceRange> <observationRange> <text>4.1-5.6</text> </observationRange> </referenceRange> </observation > </component> </organizer> </entry> <entry> <organizer moodCode= "EVN" classCode="BATTERY"> <templateId root="16.840.1.733736.10..22.4.1 " /> <id nullFlavor="NA" /> <code codeSystem="local" code="EAG" displayName="Estimated Average Glucose" /> <statusCode code="completed" /> <component> <observation moodCode="EVN" classCode="OBS"> < templateId root="16.840.1.851142.10..22.4.2" /> <id nullFlavor="NA " /> <code codeSystem="local" code="EAG" displayName="Estimated Average Glucose" /> <statusCode code="completed" /> < effectiveTime value="079023427111" /> <value unit="mg/dL" xsi:type="PQ " value="116.9" /> <referenceRange> <observationRange> <text /> </observationRange> </referenceRange> </observation> </component> </organizer> </entry> <entry> < organizer moodCode="EVN" classCode="BATTERY"> <templateId root= "10.29.840.1.375940.10.20.22.4.1" /> <id nullFlavor="NA" /> <code codeSystem="local" code="GLUN" displayName="Glucose NPT" /> <statusCode code="completed" /> <component> <observation moodCode="EVN" classCode="OBS"> <templateId root="16.840.1.703639.07.02.22.4.2" /> <id nullFlavor="NA" /> <code codeSystem="local" code="GLUN" displayName="Glucose NPT" /> <statusCode code="completed" /> <effectiveTime value="942598007016" /> <value unit="mg/dL" xsi:type="PQ " value="192" /> <interpretationCode codeSystem="local" code="*" /> <referenceRange> <observationRange> <text>70-100< /text> </observationRange> </referenceRange> </ observation> </component> </organizer> </entry> <entry> <organizer moodCode="EVN" classCode="BATTERY"> <templateId root= "10.29.840.1.682503.07.02.22.4.1" /> <id nullFlavor="NA" /> <code codeSystem="local" code="GLUN" displayName="Glucose NPT" /> <statusCode code="completed" /> <component> <observation moodCode="EVN" classCode="OBS"> <templateId root="10.29.840.1.696509.07.02.22.4.2" /> <id nullFlavor="NA" /> <code codeSystem="local" code="GLUN" displayName="Glucose NPT" /> <statusCode code="completed" /> <effectiveTime value="387496957226" /> <value unit="mg/dL" xsi:type="PQ " value="126" /> <interpretationCode codeSystem="local" code="*" /> <referenceRange> <observationRange> <text>70-100< /text> </observationRange> </referenceRange> </ observation> </component> </organizer> </entry> <entry> <organizer moodCode="EVN" classCode="BATTERY"> <templateId root= "10.29.840.1.662065.07.02.22.4.1" /> <id nullFlavor="NA" /> <code codeSystem="local" code="PT" displayName="Protime (INR)" /> <statusCode code="completed" /> <component> <observation moodCode="EVN" classCode="OBS"> <templateId root="840.1.528592.07.02.224.2" /> <id nullFlavor="NA" /> <code codeSystem="local" code="INR" displayName="INR" /> <statusCode code="completed" /> < effectiveTime value="092995160142" /> <value unit="NA" xsi:type="PQ" value="1.1" /> <referenceRange> <observationRange> <text>0.9-1.2</text> </observationRange> </ referenceRange> </observation> </component> </organizer> </entry > <entry> <organizer moodCode="EVN" classCode="BATTERY"> <templateId root="840.1.282110.07.02.22.4.1" /> <id nullFlavor="NA" /> <code codeSystem="local" code="PTT" displayName="PTT" /> <statusCode code= "completed" /> <component> <observation moodCode="EVN" classCode= "OBS"> <templateId root="10.29.840.1.300353.07.02.22.4.2" /> < id nullFlavor="NA" /> <code codeSystem="local" code="PTT" displayName= "PTT" /> <statusCode code="completed" /> <effectiveTime value= "264092868097" /> <value unit="seconds" xsi:type="PQ" value="61.7" /> <interpretationCode codeSystem="local" code="*" /> < referenceRange> <observationRange> <text>25.0-35.0</text > </observationRange> </referenceRange> </observation > </component> </organizer> </entry> <entry> <organizer moodCode= "EVN" classCode="BATTERY"> <templateId root="16.840.1.343525.10..22.4.1 " /> <id nullFlavor="NA" /> <code codeSystem="local" code="CBCWD" displayName="CBC With Platelet and Differential" /> <statusCode code= "completed" /> <component> <observation moodCode="EVN" classCode= "OBS"> <templateId root="10.29.840.1.298549.10..22.4.2" /> < id nullFlavor="NA" /> <code codeSystem="local" code="HCT" displayName= "HCT" /> <statusCode code="completed" /> <effectiveTime value= "083051897237" /> <value unit="%" xsi:type="PQ" value="34.7" /> <interpretationCode codeSystem="local" code="*" /> < referenceRange> <observationRange> <text>42.0-52.0</text > </observationRange> </referenceRange> </observation > </component> <component> <observation moodCode="EVN" classCode="OBS"> <templateId root="10.29.840.1.466205.10.20.22.4.2" /> <id nullFlavor="NA" /> <code codeSystem="local" code="HGB" displayName="HGB" /> <statusCode code="completed" /> < effectiveTime value="207655690079" /> <value unit="g/dL" xsi:type="PQ" value="11.5" /> <interpretationCode codeSystem="local" code="*" /> <referenceRange> <observationRange> <text>14.0- 18.0</text> </observationRange> </referenceRange> </ observation> </component> <component> <observation moodCode= "EVN" classCode="OBS"> <templateId root="216.840.1.344651.10.20.22.4.2 " /> <id nullFlavor="NA" /> <code codeSystem="local" code="MCH " displayName="MCH" /> <statusCode code="completed" /> < effectiveTime value="931506422523" /> <value unit="pg" xsi:type="PQ" value="29.4" /> <referenceRange> <observationRange> <text>27.0-32.0</text> </observationRange> </ referenceRange> </observation> </component> <component> <observation moodCode="EVN" classCode="OBS"> <templateId root= "16.840.1.221893.10.20.22.4.2" /> <id nullFlavor="NA" /> < code codeSystem="local" code="MCHC" displayName="MCHC" /> <statusCode code="completed" /> <effectiveTime value="[id number]" /> < value unit="g/dL" xsi:type="PQ" value="33.1" /> <referenceRange> <observationRange> <text>32.0-36.0</text> </ observationRange> </referenceRange> </observation> </ component> <component> <observation moodCode="EVN" classCode="OBS"> <templateId root="2.16.840.1.835172.10..22.4.2" /> <id nullFlavor="NA" /> <code codeSystem="local" code="MCV" displayName="MCV " /> <statusCode code="completed" /> <effectiveTime value= "" /> <value unit="fL" xsi:type="PQ" value="88.7" /> <referenceRange> <observationRange> <text>82.0-99.0< /text> </observationRange> </referenceRange> </ observation> </component> <component> <observation moodCode= "EVN" classCode="OBS"> <templateId root="16.840.1.312762...4.2 " /> <id nullFlavor="NA" /> <code codeSystem="local" code="MPV " displayName="MPV" /> <statusCode code="completed" /> < effectiveTime value="" /> <value unit="fL" xsi:type="PQ" value="11.9" /> <referenceRange> <observationRange> <text>9.4-12.3</text> </observationRange> </ referenceRange> </observation> </component> <component> <observation moodCode="EVN" classCode="OBS"> <templateId root= "10.29.840.1.284353.1022.4.2" /> <id nullFlavor="NA" /> < code codeSystem="local" code="PLT" displayName="Platelet Count" /> < statusCode code="completed" /> <effectiveTime value="" /> <value unit="K/uL" xsi:type="PQ" value="192" /> < referenceRange> <observationRange> <text>150-400</text> </observationRange> </referenceRange> </observation > </component> <component> <observation moodCode="EVN" classCode="OBS"> <templateId root="16.840.1.531054.07.02.22.4.2" /> <id nullFlavor="NA" /> <code codeSystem="local" code="RBC" displayName="RBC" /> <statusCode code="completed" /> < effectiveTime value="889563156884" /> <value unit="10*6/uL" xsi:type= "PQ" value="3.91" /> <interpretationCode codeSystem="local" code="*" / > <referenceRange> <observationRange> <text> 4.60-6.20</text> </observationRange> </referenceRange> </observation> </component> <component> <observation moodCode="EVN" classCode="OBS"> <templateId root= "10.29.840.1.069964.07.02.224.2" /> <id nullFlavor="NA" /> < code codeSystem="local" code="RDW" displayName="RDW" /> <statusCode code="completed" /> <effectiveTime value="240295469210" /> < value unit="%" xsi:type="PQ" value="16.0" /> <interpretationCode codeSystem="local" code="*" /> <referenceRange> < observationRange> <text>11.5-14.5</text> </ observationRange> </referenceRange> </observation> </ component> <component> <observation moodCode="EVN" classCode="OBS"> <templateId root="10.29.840.1.174953.07.02.22.4.2" /> <id nullFlavor="NA" /> <code codeSystem="local" code="WBCIR" displayName= "WBC" /> <statusCode code="completed" /> <effectiveTime value= "037120157238" /> <value unit="K/uL" xsi:type="PQ" value="15.6" /> <interpretationCode codeSystem="local" code="*" /> < referenceRange> <observationRange> <text>4.8-10.8</text > </observationRange> </referenceRange> </observation > </component> </organizer> </entry> <entry> <organizer moodCode= "EVN" classCode="BATTERY"> <templateId root="10.29.840.1.982758.10..22.4.1 " /> <id nullFlavor="NA" /> <code codeSystem="local" code="CMP" displayName="Comprehensive Metabolic Panel (CMP)" /> <statusCode code= "completed" /> <component> <observation moodCode="EVN" classCode= "OBS"> <templateId root="10.29.840.1.188924.10..22.4.2" /> < id nullFlavor="NA" /> <code codeSystem="local" code="ALB" displayName= "Albumin" /> <statusCode code="completed" /> <effectiveTime value="684734303515" /> <value unit="g/dL" xsi:type="PQ" value="3.0" / > <interpretationCode codeSystem="local" code="*" /> < referenceRange> <observationRange> <text>3.5-4.8</text> </observationRange> </referenceRange> </observation > </component> <component> <observation moodCode="EVN" classCode="OBS"> <templateId root="10.29.840.1.346592.10.20.22.4.2" /> <id nullFlavor="NA" /> <code codeSystem="local" code="ALP" displayName="Alkaline Phosphatase" /> <statusCode code="completed" /> <effectiveTime value="199954792134" /> <value unit="U/L" xsi: type="PQ" value="112" /> <interpretationCode codeSystem="local" code="* " /> <referenceRange> <observationRange> <text> 26-104</text> </observationRange> </referenceRange> < /observation> </component> <component> <observation moodCode= "EVN" classCode="OBS"> <templateId root="2.16.840.1.265999.10.20.22.4.2 " /> <id nullFlavor="NA" /> <code codeSystem="local" code="ALT " displayName="ALT (SGPT)" /> <statusCode code="completed" /> <effectiveTime value="125792248941" /> <value unit="U/L" xsi:type="PQ" value="916" /> <interpretationCode codeSystem="local" code="*" /> <referenceRange> <observationRange> <text>17-63</ text> </observationRange> </referenceRange> </ observation> </component> <component> <observation moodCode= "EVN" classCode="OBS"> <templateId root="216.840.1.472901.10.20.22.4.2 " /> <id nullFlavor="NA" /> <code codeSystem="local" code= "AGAP" displayName="Anion Gap" /> <statusCode code="completed" /> <effectiveTime value="550538936739" /> <value unit="mEq/L" xsi: type="PQ" value="11" /> <referenceRange> <observationRange> <text>3-20</text> </observationRange> </ referenceRange> </observation> </component> <component> <observation moodCode="EVN" classCode="OBS"> <templateId root= "10.29.840.1.733849.10.2022.4.2" /> <id nullFlavor="NA" /> < code codeSystem="local" code="AST" displayName="AST (SGOT)" /> < statusCode code="completed" /> <effectiveTime value="629233589128" /> <value unit="U/L" xsi:type="PQ" value="662" /> < interpretationCode codeSystem="local" code="*" /> <referenceRange> <observationRange> <text>15-41</text> </ observationRange> </referenceRange> </observation> </ component> <component> <observation moodCode="EVN" classCode="OBS"> <templateId root="840.1.184522.10.4.2" /> <id nullFlavor="NA" /> <code codeSystem="local" code="BILIT" displayName= "Bilirubin Total" /> <statusCode code="completed" /> < effectiveTime value="239480354390" /> <value unit="mg/dL" xsi:type="PQ " value="1.4" /> <interpretationCode codeSystem="local" code="*" /> <referenceRange> <observationRange> <text>0.2-1.2 </text> </observationRange> </referenceRange> </ observation> </component> <component> <observation moodCode= "EVN" classCode="OBS"> <templateId root="10.29.840.1.356930.10.2022.4.2 " /> <id nullFlavor="NA" /> <code codeSystem="local" code="BUN " displayName="BUN" /> <statusCode code="completed" /> < effectiveTime value="693828181958" /> <value unit="mg/dL" xsi:type="PQ " value="33" /> <interpretationCode codeSystem="local" code="*" /> <referenceRange> <observationRange> <text>4-20</ text> </observationRange> </referenceRange> </ observation> </component> <component> <observation moodCode= "EVN" classCode="OBS"> <templateId root="10.29.840.1.335261.10.2022.4.2 " /> <id nullFlavor="NA" /> <code codeSystem="local" code="CA " displayName="Calcium" /> <statusCode code="completed" /> < effectiveTime value="840440285910" /> <value unit="mg/dL" xsi:type="PQ " value="8.1" /> <interpretationCode codeSystem="local" code="*" /> <referenceRange> <observationRange> <text>8.6- 10.0</text> </observationRange> </referenceRange> </ observation> </component> <component> <observation moodCode= "EVN" classCode="OBS"> <templateId root="840.1.235620.1022.4.2 " /> <id nullFlavor="NA" /> <code codeSystem="local" code="CL " displayName="Chloride" /> <statusCode code="completed" /> < effectiveTime value="746293083553" /> <value unit="mEq/L" xsi:type="PQ " value="99" /> <referenceRange> <observationRange> <text>99-109</text> </observationRange> </ referenceRange> </observation> </component> <component> <observation moodCode="EVN" classCode="OBS"> <templateId root= "10.29.840.1.946675.10.2022.4.2" /> <id nullFlavor="NA" /> < code codeSystem="local" code="CO2" displayName="CO2" /> <statusCode code="completed" /> <effectiveTime value="383453734017" /> < value unit="mEq/L" xsi:type="PQ" value="21" /> <interpretationCode codeSystem="local" code="*" /> <referenceRange> < observationRange> <text>22-32</text> </observationRange > </referenceRange> </observation> </component> < component> <observation moodCode="EVN" classCode="OBS"> < templateId root="2.16.840.1.057516.10..4.2" /> <id nullFlavor="NA " /> <code codeSystem="local" code="CREAT" displayName="Creatinine" /> <statusCode code="completed" /> <effectiveTime value= "751565312030" /> <value unit="mg/dL" xsi:type="PQ" value="1.26" /> <referenceRange> <observationRange> <text>0.64- 1.27</text> </observationRange> </referenceRange> </ observation> </component> <component> <observation moodCode= "EVN" classCode="OBS"> <templateId root="216.840.1.546251.10..4.2 " /> <id nullFlavor="NA" /> <code codeSystem="local" code= "GLOB" displayName="Globulin" /> <statusCode code="completed" /> <effectiveTime value="079645730952" /> <value unit="g/dL" xsi:type= "PQ" value="3.1" /> <referenceRange> <observationRange> <text>1.9-4.3</text> </observationRange> </ referenceRange> </observation> </component> <component> <observation moodCode="EVN" classCode="OBS"> <templateId root= "10.29.840.1.556145.10.20.22.4.2" /> <id nullFlavor="NA" /> < code codeSystem="local" code="GLU" displayName="Glucose" /> < statusCode code="completed" /> <effectiveTime value="" /> <value unit="mg/dL" xsi:type="PQ" value="112" /> < interpretationCode codeSystem="local" code="*" /> <referenceRange> <observationRange> <text>70-100</text> </ observationRange> </referenceRange> </observation> </ component> <component> <observation moodCode="EVN" classCode="OBS"> <templateId root="840.1.797137..22.4.2" /> <id nullFlavor="NA" /> <code codeSystem="local" code="K" displayName= "Potassium" /> <statusCode code="completed" /> <effectiveTime value="" /> <value unit="mEq/L" xsi:type="PQ" value="4.3" / > <referenceRange> <observationRange> <text>3.6 -5.1</text> </observationRange> </referenceRange> </ observation> </component> <component> <observation moodCode= "EVN" classCode="OBS"> <templateId root="840.1.142763.10.20.22.4.2 " /> <id nullFlavor="NA" /> <code codeSystem="local" code="TP " displayName="Protein" /> <statusCode code="completed" /> < effectiveTime value="368045865314" /> <value unit="g/dL" xsi:type="PQ" value="6.1" /> <referenceRange> <observationRange> <text>6.1-7.9</text> </observationRange> </ referenceRange> </observation> </component> <component> <observation moodCode="EVN" classCode="OBS"> <templateId root= "10.29.840.1.673827.102022.4.2" /> <id nullFlavor="NA" /> < code codeSystem="local" code="NA" displayName="Sodium" /> <statusCode code="completed" /> <effectiveTime value="283087176934" /> < value unit="mEq/L" xsi:type="PQ" value="131" /> <interpretationCode codeSystem="local" code="*" /> <referenceRange> < observationRange> <text>136-144</text> </ observationRange> </referenceRange> </observation> </ component> </organizer> </entry> <entry> <organizer moodCode="EVN" classCode="BATTERY"> <templateId root="10.29.840.1.283196.10..22.4.1" /> <id nullFlavor="NA" /> <code codeSystem="local" code="GFR" displayName ="eGFR" /> <statusCode code="completed" /> <component> < observation moodCode="EVN" classCode="OBS"> <templateId root= "10.29.840.1.800494.102022.4.2" /> <id nullFlavor="NA" /> < code codeSystem="local" code="GFR" displayName="eGFR" /> <statusCode code="completed" /> <effectiveTime value="653458156557" /> < value unit="mL/min" xsi:type="PQ" value=">60" /> <referenceRange> <observationRange> <text>>60</text> </ observationRange> </referenceRange> </observation> </ component> </organizer> </entry> <entry> <organizer moodCode="EVN" classCode="BATTERY"> <templateId root="16.840.1.939181.10..4.1" /> <id nullFlavor="NA" /> <code codeSystem="local" code="TSHR" displayName="TSH with Reflex Free T4" /> <statusCode code="completed" /> <component> <observation moodCode="EVN" classCode="OBS"> < templateId root="840.1.468347.07.02.22.4.2" /> <id nullFlavor="NA " /> <code codeSystem="local" code="TSHR" displayName="TSH with Reflex Free T4" /> <statusCode code="completed" /> <effectiveTime value="414286474072" /> <value unit="uIU/mL" xsi:type="PQ" value="3.50 " /> <referenceRange> <observationRange> <text> 0.35-4.94</text> </observationRange> </referenceRange> </observation> </component> </organizer> </entry> <entry> < organizer moodCode="EVN" classCode="BATTERY"> <templateId root= "10.29.840.1.687958.07.02.22.4.1" /> <id nullFlavor="NA" /> <code codeSystem="local" code="BNP" displayName="B-Type Natriuretic Peptide" /> < statusCode code="completed" /> <component> <observation moodCode= "EVN" classCode="OBS"> <templateId root="10.29.840.1.068459.10..22.4.2 " /> <id nullFlavor="NA" /> <code codeSystem="local" code="BNP " displayName="B-Type Natriuretic Peptide" /> <statusCode code= "completed" /> <effectiveTime value="208994276199" /> <value unit="pg/mL" xsi:type="PQ" value="2026" /> <interpretationCode codeSystem="local" code="*" /> <referenceRange> < observationRange> <text>0-99</text> </observationRange> </referenceRange> </observation> </component> </ organizer> </entry> <entry> <organizer moodCode="EVN" classCode="BATTERY"> <templateId root="2.16.840.1.854602.10.20.22.4.1" /> <id nullFlavor= "NA" /> <code codeSystem="local" code="PCT" displayName="Procalcitonin" /> <statusCode code="completed" /> <component> <observation moodCode="EVN" classCode="OBS"> <templateId root= "2.16.840.1.746056.10.20.22.4.2" /> <id nullFlavor="NA" /> < code codeSystem="local" code="PCT" displayName="Procalcitonin" /> < statusCode code="completed" /> <effectiveTime value="898902204732" /> <value unit="ng/mL" xsi:type="PQ" value="0.11" /> < interpretationCode codeSystem="local" code="*" /> <referenceRange> <observationRange> <text>0.00-0.09</text> </ observationRange> </referenceRange> </observation> </ component> </organizer> </entry> <entry> <organizer moodCode="EVN" classCode="BATTERY"> <templateId root="216.840.1.633294.10..22.4.1" /> <id nullFlavor="NA" /> <code codeSystem="local" code="ABGRT" displayName="Blood Gases, Arterial (RT)" /> <statusCode code="completed" / > <component> <observation moodCode="EVN" classCode="OBS"> <templateId root="10.29.840.1.291428.10.20.22.4.2" /> <id nullFlavor="NA " /> <code codeSystem="local" code="YNES" displayName="Arterial Base Excess" /> <statusCode code="completed" /> <effectiveTime value="384800359659" /> <value unit="NA" xsi:type="PQ" value="-2" /> <interpretationCode codeSystem="local" code="*" /> < referenceRange> <observationRange> <text>0-2</text> </observationRange> </referenceRange> </observation> </component> <component> <observation moodCode="EVN" classCode= "OBS"> <templateId root="840.1.850500...4.2" /> < id nullFlavor="NA" /> <code codeSystem="local" code="AHCO3" displayName ="Arterial Bicarbonate" /> <statusCode code="completed" /> < effectiveTime value="027459501340" /> <value unit="mEq/L" xsi:type="PQ " value="22" /> <referenceRange> <observationRange> <text>22-26</text> </observationRange> </ referenceRange> </observation> </component> <component> <observation moodCode="EVN" classCode="OBS"> <templateId root= "10.29.840.1.479094.10.20.22.4.2" /> <id nullFlavor="NA" /> < code codeSystem="local" code="AOSAT" displayName="Arterial O2 Saturation" /> <statusCode code="completed" /> <effectiveTime value= "722047055220" /> <value unit="%" xsi:type="PQ" value="92.4" /> <referenceRange> <observationRange> <text>90.0- 97.0</text> </observationRange> </referenceRange> </ observation> </component> <component> <observation moodCode= "EVN" classCode="OBS"> <templateId root="216.840.1.631574.10..4.2 " /> <id nullFlavor="NA" /> <code codeSystem="local" code= "APCO2" displayName="Arterial PCO2" /> <statusCode code="completed" /> <effectiveTime value="721529524030" /> <value unit="mmHg" xsi :type="PQ" value="33" /> <interpretationCode codeSystem="local" code="* " /> <referenceRange> <observationRange> <text> 35-45</text> </observationRange> </referenceRange> </ observation> </component> <component> <observation moodCode= "EVN" classCode="OBS"> <templateId root="16.840.1.479530.10..4.2 " /> <id nullFlavor="NA" /> <code codeSystem="local" code="APH " displayName="Arterial PH" /> <statusCode code="completed" /> <effectiveTime value="302138476190" /> <value unit="NA" xsi:type="PQ " value="7.44" /> <referenceRange> <observationRange> <text>7.35-7.45</text> </observationRange> </ referenceRange> </observation> </component> <component> <observation moodCode="EVN" classCode="OBS"> <templateId root= "16.840.1.914966.07.02.22.4.2" /> <id nullFlavor="NA" /> < code codeSystem="local" code="APO2" displayName="Arterial PO2" /> < statusCode code="completed" /> <effectiveTime value="392392562413" /> <value unit="mmHg" xsi:type="PQ" value="63" /> < interpretationCode codeSystem="local" code="*" /> <referenceRange> <observationRange> <text>80-100</text> </ observationRange> </referenceRange> </observation> </ component> </organizer> </entry> <entry> <organizer moodCode="EVN" classCode="BATTERY"> <templateId root="216.840.1.052693.10..4.1" /> <id nullFlavor="NA" /> <code codeSystem="local" code="GLUN" displayName="Glucose NPT" /> <statusCode code="completed" /> < component> <observation moodCode="EVN" classCode="OBS"> < templateId root="2.16.840.1.382845.10..22.4.2" /> <id nullFlavor="NA " /> <code codeSystem="local" code="GLUN" displayName="Glucose NPT" / > <statusCode code="completed" /> <effectiveTime value= "625757295449" /> <value unit="mg/dL" xsi:type="PQ" value="125" /> <interpretationCode codeSystem="local" code="*" /> < referenceRange> <observationRange> <text>70-100</text> </observationRange> </referenceRange> </observation> </component> </organizer> </entry> <entry> <organizer moodCode= "EVN" classCode="BATTERY"> <templateId root="2.16.840.1.236840.22.4.1 " /> <id nullFlavor="NA" /> <code codeSystem="local" code="CBCWD" displayName="CBC With Platelet and Differential" /> <statusCode code= "completed" /> <component> <observation moodCode="EVN" classCode= "OBS"> <templateId root="216.840.1.394240.07.02.22.4.2" /> < id nullFlavor="NA" /> <code codeSystem="local" code="HCT" displayName= "HCT" /> <statusCode code="completed" /> <effectiveTime value= "926087927328" /> <value unit="%" xsi:type="PQ" value="34.3" /> <interpretationCode codeSystem="local" code="*" /> < referenceRange> <observationRange> <text>42.0-52.0</text > </observationRange> </referenceRange> </observation > </component> <component> <observation moodCode="EVN" classCode="OBS"> <templateId root="216.840.1.574818.07.02.22.4.2" /> <id nullFlavor="NA" /> <code codeSystem="local" code="HGB" displayName="HGB" /> <statusCode code="completed" /> < effectiveTime value="010230806302" /> <value unit="g/dL" xsi:type="PQ" value="11.1" /> <interpretationCode codeSystem="local" code="*" /> <referenceRange> <observationRange> <text>14.0- 18.0</text> </observationRange> </referenceRange> </ observation> </component> <component> <observation moodCode= "EVN" classCode="OBS"> <templateId root="216.840.1.806451.07.02.22.4.2 " /> <id nullFlavor="NA" /> <code codeSystem="local" code="MCH " displayName="MCH" /> <statusCode code="completed" /> < effectiveTime value="" /> <value unit="pg" xsi:type="PQ" value="28.8" /> <referenceRange> <observationRange> <text>27.0-32.0</text> </observationRange> </ referenceRange> </observation> </component> <component> <observation moodCode="EVN" classCode="OBS"> <templateId root= "2.16.840.1.076135.07.02.224.2" /> <id nullFlavor="NA" /> < code codeSystem="local" code="MCHC" displayName="MCHC" /> <statusCode code="completed" /> <effectiveTime value="" /> < value unit="g/dL" xsi:type="PQ" value="32.4" /> <referenceRange> <observationRange> <text>32.0-36.0</text> </ observationRange> </referenceRange> </observation> </ component> <component> <observation moodCode="EVN" classCode="OBS"> <templateId root="216.840.1.563744.07.02.22.4.2" /> <id nullFlavor="NA" /> <code codeSystem="local" code="MCV" displayName="MCV " /> <statusCode code="completed" /> <effectiveTime value= "" /> <value unit="fL" xsi:type="PQ" value="89.1" /> <referenceRange> <observationRange> <text>82.0-99.0< /text> </observationRange> </referenceRange> </ observation> </component> <component> <observation moodCode= "EVN" classCode="OBS"> <templateId root="10.29.840.1.333161.10.4.2 " /> <id nullFlavor="NA" /> <code codeSystem="local" code="MPV " displayName="MPV" /> <statusCode code="completed" /> < effectiveTime value="" /> <value unit="fL" xsi:type="PQ" value="11.8" /> <referenceRange> <observationRange> <text>9.4-12.3</text> </observationRange> </ referenceRange> </observation> </component> <component> <observation moodCode="EVN" classCode="OBS"> <templateId root= "10.29.840.1.056979.07.02.22.4.2" /> <id nullFlavor="NA" /> < code codeSystem="local" code="PLT" displayName="Platelet Count" /> < statusCode code="completed" /> <effectiveTime value="" /> <value unit="K/uL" xsi:type="PQ" value="180" /> < referenceRange> <observationRange> <text>150-400</text> </observationRange> </referenceRange> </observation > </component> <component> <observation moodCode="EVN" classCode="OBS"> <templateId root="10.29.840.1.229437.1022.4.2" /> <id nullFlavor="NA" /> <code codeSystem="local" code="RBC" displayName="RBC" /> <statusCode code="completed" /> < effectiveTime value="" /> <value unit="10*6/uL" xsi:type= "PQ" value="3.85" /> <interpretationCode codeSystem="local" code="*" / > <referenceRange> <observationRange> <text> 4.60-6.20</text> </observationRange> </referenceRange> </observation> </component> <component> <observation moodCode="EVN" classCode="OBS"> <templateId root= "216.840.1.848262.10..22.4.2" /> <id nullFlavor="NA" /> < code codeSystem="local" code="RDW" displayName="RDW" /> <statusCode code="completed" /> <effectiveTime value="854302415986" /> < value unit="%" xsi:type="PQ" value="16.0" /> <interpretationCode codeSystem="local" code="*" /> <referenceRange> < observationRange> <text>11.5-14.5</text> </ observationRange> </referenceRange> </observation> </ component> <component> <observation moodCode="EVN" classCode="OBS"> <templateId root="10.29.840.1.972003.07.02.22.4.2" /> <id nullFlavor="NA" /> <code codeSystem="local" code="WBCIR" displayName= "WBC" /> <statusCode code="completed" /> <effectiveTime value= "103973251842" /> <value unit="K/uL" xsi:type="PQ" value="9.8" /> <referenceRange> <observationRange> <text>4.8-10.8< /text> </observationRange> </referenceRange> </ observation> </component> </organizer> </entry> <entry> <organizer moodCode="EVN" classCode="BATTERY"> <templateId root= "216.840.1.548946.10..22.4.1" /> <id nullFlavor="NA" /> <code codeSystem="local" code="PT" displayName="Protime (INR)" /> <statusCode code="completed" /> <component> <observation moodCode="EVN" classCode="OBS"> <templateId root="16.840.1.784283.10.4.2" /> <id nullFlavor="NA" /> <code codeSystem="local" code="INR" displayName="INR" /> <statusCode code="completed" /> < effectiveTime value="" /> <value unit="NA" xsi:type="PQ" value="1.0" /> <referenceRange> <observationRange> <text>0.9-1.2</text> </observationRange> </ referenceRange> </observation> </component> </organizer> </entry > <entry> <organizer moodCode="EVN" classCode="BATTERY"> <templateId root="10.29.840.1.687247.07.02.22.4.1" /> <id nullFlavor="NA" /> <code codeSystem="local" code="PTT" displayName="PTT" /> <statusCode code= "completed" /> <component> <observation moodCode="EVN" classCode= "OBS"> <templateId root="10.29.840.1.396889.10.4.2" /> < id nullFlavor="NA" /> <code codeSystem="local" code="PTT" displayName= "PTT" /> <statusCode code="completed" /> <effectiveTime value= "" /> <value unit="seconds" xsi:type="PQ" value="52.5" /> <interpretationCode codeSystem="local" code="*" /> < referenceRange> <observationRange> <text>25.0-35.0</text > </observationRange> </referenceRange> </observation > </component> </organizer> </entry> <entry> <organizer moodCode= "EVN" classCode="BATTERY"> <templateId root="16.840.1.665604.10..4.1 " /> <id nullFlavor="NA" /> <code codeSystem="local" code="CMP" displayName="Comprehensive Metabolic Panel (CMP)" /> <statusCode code= "completed" /> <component> <observation moodCode="EVN" classCode= "OBS"> <templateId root="10.29.840.1.024493.10..4.2" /> < id nullFlavor="NA" /> <code codeSystem="local" code="ALB" displayName= "Albumin" /> <statusCode code="completed" /> <effectiveTime value="" /> <value unit="g/dL" xsi:type="PQ" value="2.9" / > <interpretationCode codeSystem="local" code="*" /> < referenceRange> <observationRange> <text>3.5-4.8</text> </observationRange> </referenceRange> </observation > </component> <component> <observation moodCode="EVN" classCode="OBS"> <templateId root="10.29.840.1.863794.07.02.22.4.2" /> <id nullFlavor="NA" /> <code codeSystem="local" code="ALP" displayName="Alkaline Phosphatase" /> <statusCode code="completed" /> <effectiveTime value="" /> <value unit="U/L" xsi: type="PQ" value="112" /> <interpretationCode codeSystem="local" code="* " /> <referenceRange> <observationRange> <text> 26-104</text> </observationRange> </referenceRange> < /observation> </component> <component> <observation moodCode= "EVN" classCode="OBS"> <templateId root="216.840.1.733393.10..4.2 " /> <id nullFlavor="NA" /> <code codeSystem="local" code="ALT " displayName="ALT (SGPT)" /> <statusCode code="completed" /> <effectiveTime value="" /> <value unit="U/L" xsi:type="PQ" value="681" /> <interpretationCode codeSystem="local" code="*" /> <referenceRange> <observationRange> <text>17-63</ text> </observationRange> </referenceRange> </ observation> </component> <component> <observation moodCode= "EVN" classCode="OBS"> <templateId root="10.29.840.1.644410.10.4.2 " /> <id nullFlavor="NA" /> <code codeSystem="local" code= "AGAP" displayName="Anion Gap" /> <statusCode code="completed" /> <effectiveTime value="" /> <value unit="mEq/L" xsi: type="PQ" value="10" /> <referenceRange> <observationRange> <text>3-20</text> </observationRange> </ referenceRange> </observation> </component> <component> <observation moodCode="EVN" classCode="OBS"> <templateId root= "216.840.1.606073.10..4.2" /> <id nullFlavor="NA" /> < code codeSystem="local" code="AST" displayName="AST (SGOT)" /> < statusCode code="completed" /> <effectiveTime value="" /> <value unit="U/L" xsi:type="PQ" value="401" /> < interpretationCode codeSystem="local" code="*" /> <referenceRange> <observationRange> <text>15-41</text> </ observationRange> </referenceRange> </observation> </ component> <component> <observation moodCode="EVN" classCode="OBS"> <templateId root="16.840.1.053570.07.02.22.4.2" /> <id nullFlavor="NA" /> <code codeSystem="local" code="BILIT" displayName= "Bilirubin Total" /> <statusCode code="completed" /> < effectiveTime value="" /> <value unit="mg/dL" xsi:type="PQ " value="1.6" /> <interpretationCode codeSystem="local" code="*" /> <referenceRange> <observationRange> <text>0.2-1.2 </text> </observationRange> </referenceRange> </ observation> </component> <component> <observation moodCode= "EVN" classCode="OBS"> <templateId root="16.840.1.627988.10..4.2 " /> <id nullFlavor="NA" /> <code codeSystem="local" code="BUN " displayName="BUN" /> <statusCode code="completed" /> < effectiveTime value="" /> <value unit="mg/dL" xsi:type="PQ " value="29" /> <interpretationCode codeSystem="local" code="*" /> <referenceRange> <observationRange> <text>4-20</ text> </observationRange> </referenceRange> </ observation> </component> <component> <observation moodCode= "EVN" classCode="OBS"> <templateId root="16.840.1.481409.10.20.22.4.2 " /> <id nullFlavor="NA" /> <code codeSystem="local" code="CA " displayName="Calcium" /> <statusCode code="completed" /> < effectiveTime value="" /> <value unit="mg/dL" xsi:type="PQ " value="8.1" /> <interpretationCode codeSystem="local" code="*" /> <referenceRange> <observationRange> <text>8.6- 10.0</text> </observationRange> </referenceRange> </ observation> </component> <component> <observation moodCode= "EVN" classCode="OBS"> <templateId root="10.29.840.1.307998.10.22.4.2 " /> <id nullFlavor="NA" /> <code codeSystem="local" code="CL " displayName="Chloride" /> <statusCode code="completed" /> < effectiveTime value="" /> <value unit="mEq/L" xsi:type="PQ " value="97" /> <interpretationCode codeSystem="local" code="*" /> <referenceRange> <observationRange> <text>99-109</ text> </observationRange> </referenceRange> </ observation> </component> <component> <observation moodCode= "EVN" classCode="OBS"> <templateId root="10.29.840.1.170370.10.20.22.4.2 " /> <id nullFlavor="NA" /> <code codeSystem="local" code="CO2 " displayName="CO2" /> <statusCode code="completed" /> < effectiveTime value="" /> <value unit="mEq/L" xsi:type="PQ " value="26" /> <referenceRange> <observationRange> <text>22-32</text> </observationRange> </ referenceRange> </observation> </component> <component> <observation moodCode="EVN" classCode="OBS"> <templateId root= "16.840.1.592417.10...4.2" /> <id nullFlavor="NA" /> < code codeSystem="local" code="CREAT" displayName="Creatinine" /> < statusCode code="completed" /> <effectiveTime value="" /> <value unit="mg/dL" xsi:type="PQ" value="1.24" /> < referenceRange> <observationRange> <text>0.64-1.27</text > </observationRange> </referenceRange> </observation > </component> <component> <observation moodCode="EVN" classCode="OBS"> <templateId root="10.29.840.1.146783.10.4.2" /> <id nullFlavor="NA" /> <code codeSystem="local" code="GLOB" displayName="Globulin" /> <statusCode code="completed" /> < effectiveTime value="" /> <value unit="g/dL" xsi:type="PQ" value="3.1" /> <referenceRange> <observationRange> <text>1.9-4.3</text> </observationRange> </ referenceRange> </observation> </component> <component> <observation moodCode="EVN" classCode="OBS"> <templateId root= "10.29.840.1.776514.10..4.2" /> <id nullFlavor="NA" /> < code codeSystem="local" code="GLU" displayName="Glucose" /> < statusCode code="completed" /> <effectiveTime value="" /> <value unit="mg/dL" xsi:type="PQ" value="97" /> < referenceRange> <observationRange> <text>70-100</text> </observationRange> </referenceRange> </observation> </component> <component> <observation moodCode="EVN" classCode ="OBS"> <templateId root="10.29.840.1.728999.22.4.2" /> < id nullFlavor="NA" /> <code codeSystem="local" code="K" displayName= "Potassium" /> <statusCode code="completed" /> <effectiveTime value="" /> <value unit="mEq/L" xsi:type="PQ" value="4.1" / > <referenceRange> <observationRange> <text>3.6 -5.1</text> </observationRange> </referenceRange> </ observation> </component> <component> <observation moodCode= "EVN" classCode="OBS"> <templateId root="10.29.840.1.145896.22.4.2 " /> <id nullFlavor="NA" /> <code codeSystem="local" code="TP " displayName="Protein" /> <statusCode code="completed" /> < effectiveTime value="" /> <value unit="g/dL" xsi:type="PQ" value="6.0" /> <interpretationCode codeSystem="local" code="*" /> <referenceRange> <observationRange> <text>6.1-7.9</ text> </observationRange> </referenceRange> </ observation> </component> <component> <observation moodCode= "EVN" classCode="OBS"> <templateId root="10.29.840.1.509380.07.02.22.4.2 " /> <id nullFlavor="NA" /> <code codeSystem="local" code="NA " displayName="Sodium" /> <statusCode code="completed" /> < effectiveTime value="" /> <value unit="mEq/L" xsi:type="PQ " value="133" /> <interpretationCode codeSystem="local" code="*" /> <referenceRange> <observationRange> <text>136-144 </text> </observationRange> </referenceRange> </ observation> </component> </organizer> </entry> <entry> <organizer moodCode="EVN" classCode="BATTERY"> <templateId root= "16.840.1.792422.07.02.22.4.1" /> <id nullFlavor="NA" /> <code codeSystem="local" code="MG" displayName="Magnesium" /> <statusCode code= "completed" /> <component> <observation moodCode="EVN" classCode= "OBS"> <templateId root="216.840.1.809914.07.02.22.4.2" /> < id nullFlavor="NA" /> <code codeSystem="local" code="MG" displayName= "Magnesium" /> <statusCode code="completed" /> <effectiveTime value="959399829569" /> <value unit="mg/dL" xsi:type="PQ" value="2.2" / > <referenceRange> <observationRange> <text>1.8 -2.5</text> </observationRange> </referenceRange> </ observation> </component> </organizer> </entry> <entry> <organizer moodCode="EVN" classCode="BATTERY"> <templateId root= "216.840.1.489569.07.02.22.4.1" /> <id nullFlavor="NA" /> <code codeSystem="local" code="PHOS" displayName="Phosphorus" /> <statusCode code ="completed" /> <component> <observation moodCode="EVN" classCode= "OBS"> <templateId root="16.840.1.313862.10.20.22.4.2" /> < id nullFlavor="NA" /> <code codeSystem="local" code="PHOS" displayName= "Phosphorus" /> <statusCode code="completed" /> < effectiveTime value="" /> <value unit="mg/dL" xsi:type="PQ " value="2.7" /> <referenceRange> <observationRange> <text>2.4-4.7</text> </observationRange> </ referenceRange> </observation> </component> </organizer> </entry > <entry> <organizer moodCode="EVN" classCode="BATTERY"> <templateId root="10.29.840.1.753291.10..22.4.1" /> <id nullFlavor="NA" /> <code codeSystem="local" code="GFR" displayName="eGFR" /> <statusCode code= "completed" /> <component> <observation moodCode="EVN" classCode= "OBS"> <templateId root="10.29.840.1.422085.10..22.4.2" /> < id nullFlavor="NA" /> <code codeSystem="local" code="GFR" displayName= "eGFR" /> <statusCode code="completed" /> <effectiveTime value ="" /> <value unit="mL/min" xsi:type="PQ" value=">60" / > <referenceRange> <observationRange> <text>&gt ;60</text> </observationRange> </referenceRange> </ observation> </component> </organizer> </entry> <entry> <organizer moodCode="EVN" classCode="BATTERY"> <templateId root= "10.29.840.1.209211.07.02.22.4.1" /> <id nullFlavor="NA" /> <code codeSystem="local" code="AMMOV" displayName="Ammonia" /> <statusCode code= "completed" /> <component> <observation moodCode="EVN" classCode= "OBS"> <templateId root="840.1.977704.07.02.224.2" /> < id nullFlavor="NA" /> <code codeSystem="local" code="AMMOV" displayName ="Ammonia" /> <statusCode code="completed" /> <effectiveTime value="397174359290" /> <value unit="umol/L" xsi:type="PQ" value="24" / > <referenceRange> <observationRange> <text>9- 35</text> </observationRange> </referenceRange> </ observation> </component> </organizer> </entry> <entry> <organizer moodCode="EVN" classCode="BATTERY"> <templateId root= "10.29.840.1.087029.07.02.22.4.1" /> <id nullFlavor="NA" /> <code codeSystem="local" code="PTT" displayName="PTT" /> <statusCode code= "completed" /> <component> <observation moodCode="EVN" classCode= "OBS"> <templateId root="10.29.840.1.090069.07.02.22.4.2" /> < id nullFlavor="NA" /> <code codeSystem="local" code="PTT" displayName= "PTT" /> <statusCode code="completed" /> <effectiveTime value= "899813387375" /> <value unit="seconds" xsi:type="PQ" value="27.2" /> <referenceRange> <observationRange> <text>25.0- 35.0</text> </observationRange> </referenceRange> </ observation> </component> </organizer> </entry> <entry> <organizer moodCode="EVN" classCode="BATTERY"> <templateId root= "16.840.1.602655.10..4.1" /> <id nullFlavor="NA" /> <code codeSystem="local" code="GLUN" displayName="Glucose NPT" /> <statusCode code="completed" /> <component> <observation moodCode="EVN" classCode="OBS"> <templateId root="216.840.1.079346.10..4.2" /> <id nullFlavor="NA" /> <code codeSystem="local" code="GLUN" displayName="Glucose NPT" /> <statusCode code="completed" /> <effectiveTime value="134626692948" /> <value unit="mg/dL" xsi:type="PQ " value="66" /> <interpretationCode codeSystem="local" code="*" /> <referenceRange> <observationRange> <text>70-100</ text> </observationRange> </referenceRange> </ observation> </component> </organizer> </entry> <entry> <organizer moodCode="EVN" classCode="BATTERY"> <templateId root= "16.840.1.262590.10..4.1" /> <id nullFlavor="NA" /> <code codeSystem="local" code="GLUN" displayName="Glucose NPT" /> <statusCode code="completed" /> <component> <observation moodCode="EVN" classCode="OBS"> <templateId root="2.16.840.1.907612.10.20.22.4.2" /> <id nullFlavor="NA" /> <code codeSystem="local" code="GLUN" displayName="Glucose NPT" /> <statusCode code="completed" /> <effectiveTime value="523181502654" /> <value unit="mg/dL" xsi:type="PQ " value="118" /> <interpretationCode codeSystem="local" code="*" /> <referenceRange> <observationRange> <text>70-100< /text> </observationRange> </referenceRange> </ observation> </component> </organizer> </entry> <entry> <organizer moodCode="EVN" classCode="BATTERY"> <templateId root= "2.16.840.1.994819.10.20.22.4.1" /> <id nullFlavor="NA" /> <code codeSystem="local" code="GLUN" displayName="Glucose NPT" /> <statusCode code="completed" /> <component> <observation moodCode="EVN" classCode="OBS"> <templateId root="2.16.840.1.332839.10.20.22.4.2" /> <id nullFlavor="NA" /> <code codeSystem="local" code="GLUN" displayName="Glucose NPT" /> <statusCode code="completed" /> <effectiveTime value="959945180437" /> <value unit="mg/dL" xsi:type="PQ " value="170" /> <interpretationCode codeSystem="local" code="*" /> <referenceRange> <observationRange> <text>70-100< /text> </observationRange> </referenceRange> </ observation> </component> </organizer> </entry> <entry> <organizer moodCode="EVN" classCode="BATTERY"> <templateId root= "16.840.1.084648.10..22.4.1" /> <id nullFlavor="NA" /> <code codeSystem="local" code="CBCND" displayName="CBC With Platelet No Differential" /> <statusCode code="completed" /> <component> <observation moodCode="EVN" classCode="OBS"> <templateId root= "10.29.840.1.221382.10..4.2" /> <id nullFlavor="NA" /> < code codeSystem="local" code="HCT" displayName="HCT" /> <statusCode code="completed" /> <effectiveTime value="598444513335" /> < value unit="%" xsi:type="PQ" value="34.3" /> <interpretationCode codeSystem="local" code="*" /> <referenceRange> < observationRange> <text>42.0-52.0</text> </ observationRange> </referenceRange> </observation> </ component> <component> <observation moodCode="EVN" classCode="OBS"> <templateId root="16.840.1.840534.10...4.2" /> <id nullFlavor="NA" /> <code codeSystem="local" code="HGB" displayName="HGB " /> <statusCode code="completed" /> <effectiveTime value= "325470990516" /> <value unit="g/dL" xsi:type="PQ" value="11.0" /> <interpretationCode codeSystem="local" code="*" /> < referenceRange> <observationRange> <text>14.0-18.0</text > </observationRange> </referenceRange> </observation > </component> <component> <observation moodCode="EVN" classCode="OBS"> <templateId root="216.840.1.964733.10.20.22.4.2" /> <id nullFlavor="NA" /> <code codeSystem="local" code="MCH" displayName="MCH" /> <statusCode code="completed" /> < effectiveTime value="463856093916" /> <value unit="pg" xsi:type="PQ" value="28.9" /> <referenceRange> <observationRange> <text>27.0-32.0</text> </observationRange> </ referenceRange> </observation> </component> <component> <observation moodCode="EVN" classCode="OBS"> <templateId root= "16.840.1.278494.10.22.4.2" /> <id nullFlavor="NA" /> < code codeSystem="local" code="MCHC" displayName="MCHC" /> <statusCode code="completed" /> <effectiveTime value="912314227403" /> < value unit="g/dL" xsi:type="PQ" value="32.1" /> <referenceRange> <observationRange> <text>32.0-36.0</text> </ observationRange> </referenceRange> </observation> </ component> <component> <observation moodCode="EVN" classCode="OBS"> <templateId root="10.29.840.1.542035.10.20.22.4.2" /> <id nullFlavor="NA" /> <code codeSystem="local" code="MCV" displayName="MCV " /> <statusCode code="completed" /> <effectiveTime value= "006222426377" /> <value unit="fL" xsi:type="PQ" value="90.0" /> <referenceRange> <observationRange> <text>82.0-99.0< /text> </observationRange> </referenceRange> </ observation> </component> <component> <observation moodCode= "EVN" classCode="OBS"> <templateId root="216.840.1.197303.10.4.2 " /> <id nullFlavor="NA" /> <code codeSystem="local" code="MPV " displayName="MPV" /> <statusCode code="completed" /> < effectiveTime value="" /> <value unit="fL" xsi:type="PQ" value="11.5" /> <referenceRange> <observationRange> <text>9.4-12.3</text> </observationRange> </ referenceRange> </observation> </component> <component> <observation moodCode="EVN" classCode="OBS"> <templateId root= "10.29.840.1.228548.07.02.22.4.2" /> <id nullFlavor="NA" /> < code codeSystem="local" code="PLT" displayName="Platelet Count" /> < statusCode code="completed" /> <effectiveTime value="" /> <value unit="K/uL" xsi:type="PQ" value="165" /> < referenceRange> <observationRange> <text>150-400</text> </observationRange> </referenceRange> </observation > </component> <component> <observation moodCode="EVN" classCode="OBS"> <templateId root="16.840.1.896099.10.4.2" /> <id nullFlavor="NA" /> <code codeSystem="local" code="RBC" displayName="RBC" /> <statusCode code="completed" /> < effectiveTime value="" /> <value unit="10*6/uL" xsi:type= "PQ" value="3.81" /> <interpretationCode codeSystem="local" code="*" / > <referenceRange> <observationRange> <text> 4.60-6.20</text> </observationRange> </referenceRange> </observation> </component> <component> <observation moodCode="EVN" classCode="OBS"> <templateId root= "216.840.1.273273.1020.22.4.2" /> <id nullFlavor="NA" /> < code codeSystem="local" code="RDW" displayName="RDW" /> <statusCode code="completed" /> <effectiveTime value="034257097281" /> < value unit="%" xsi:type="PQ" value="16.1" /> <interpretationCode codeSystem="local" code="*" /> <referenceRange> < observationRange> <text>11.5-14.5</text> </ observationRange> </referenceRange> </observation> </ component> <component> <observation moodCode="EVN" classCode="OBS"> <templateId root="216.840.1.330609.22.4.2" /> <id nullFlavor="NA" /> <code codeSystem="local" code="WBCIR" displayName= "WBC" /> <statusCode code="completed" /> <effectiveTime value= "026382750294" /> <value unit="K/uL" xsi:type="PQ" value="9.1" /> <referenceRange> <observationRange> <text>4.8-10.8< /text> </observationRange> </referenceRange> </ observation> </component> </organizer> </entry> <entry> <organizer moodCode="EVN" classCode="BATTERY"> <templateId root= "10.29.840.1.633452.10..22.4.1" /> <id nullFlavor="NA" /> <code codeSystem="local" code="MG" displayName="Magnesium" /> <statusCode code= "completed" /> <component> <observation moodCode="EVN" classCode= "OBS"> <templateId root="10.29.840.1.157143.07.02.22.4.2" /> < id nullFlavor="NA" /> <code codeSystem="local" code="MG" displayName= "Magnesium" /> <statusCode code="completed" /> <effectiveTime value="" /> <value unit="mg/dL" xsi:type="PQ" value="2.0" / > <referenceRange> <observationRange> <text>1.8 -2.5</text> </observationRange> </referenceRange> </ observation> </component> </organizer> </entry> <entry> <organizer moodCode="EVN" classCode="BATTERY"> <templateId root= "10.29.840.1.543316.07.02.22.4.1" /> <id nullFlavor="NA" /> <code codeSystem="local" code="RENAL" displayName="Renal Function Panel" /> < statusCode code="completed" /> <component> <observation moodCode= "EVN" classCode="OBS"> <templateId root="10.29.840.1.147624.07.02.22.4.2 " /> <id nullFlavor="NA" /> <code codeSystem="local" code="ALB " displayName="Albumin" /> <statusCode code="completed" /> < effectiveTime value="" /> <value unit="g/dL" xsi:type="PQ" value="2.8" /> <interpretationCode codeSystem="local" code="*" /> <referenceRange> <observationRange> <text>3.5-4.8</ text> </observationRange> </referenceRange> </ observation> </component> <component> <observation moodCode= "EVN" classCode="OBS"> <templateId root="10.29.840.1.873683.10.20.22.4.2 " /> <id nullFlavor="NA" /> <code codeSystem="local" code= "AGAP" displayName="Anion Gap" /> <statusCode code="completed" /> <effectiveTime value="" /> <value unit="mEq/L" xsi: type="PQ" value="9" /> <referenceRange> <observationRange> <text>3-20</text> </observationRange> </ referenceRange> </observation> </component> <component> <observation moodCode="EVN" classCode="OBS"> <templateId root= "10.29.840.1.358720.10..4.2" /> <id nullFlavor="NA" /> < code codeSystem="local" code="BUN" displayName="BUN" /> <statusCode code="completed" /> <effectiveTime value="621310194468" /> < value unit="mg/dL" xsi:type="PQ" value="23" /> <interpretationCode codeSystem="local" code="*" /> <referenceRange> < observationRange> <text>4-20</text> </observationRange> </referenceRange> </observation> </component> < component> <observation moodCode="EVN" classCode="OBS"> < templateId root="10.29.840.1.592713.10.20.22.4.2" /> <id nullFlavor="NA " /> <code codeSystem="local" code="CA" displayName="Calcium" /> <statusCode code="completed" /> <effectiveTime value="612139387595 " /> <value unit="mg/dL" xsi:type="PQ" value="7.7" /> < interpretationCode codeSystem="local" code="*" /> <referenceRange> <observationRange> <text>8.6-10.0</text> </ observationRange> </referenceRange> </observation> </ component> <component> <observation moodCode="EVN" classCode="OBS"> <templateId root="16.840.1.475267.10..22.4.2" /> <id nullFlavor="NA" /> <code codeSystem="local" code="CL" displayName= "Chloride" /> <statusCode code="completed" /> <effectiveTime value="359667944759" /> <value unit="mEq/L" xsi:type="PQ" value="99" / > <referenceRange> <observationRange> <text>99- 109</text> </observationRange> </referenceRange> </ observation> </component> <component> <observation moodCode= "EVN" classCode="OBS"> <templateId root="16.840.1.988638..20.22.4.2 " /> <id nullFlavor="NA" /> <code codeSystem="local" code="CO2 " displayName="CO2" /> <statusCode code="completed" /> < effectiveTime value="148353744307" /> <value unit="mEq/L" xsi:type="PQ " value="26" /> <referenceRange> <observationRange> <text>22-32</text> </observationRange> </ referenceRange> </observation> </component> <component> <observation moodCode="EVN" classCode="OBS"> <templateId root= "10.29.840.1.141035.20.22.4.2" /> <id nullFlavor="NA" /> < code codeSystem="local" code="CREAT" displayName="Creatinine" /> < statusCode code="completed" /> <effectiveTime value="296057288491" /> <value unit="mg/dL" xsi:type="PQ" value="1.40" /> < interpretationCode codeSystem="local" code="*" /> <referenceRange> <observationRange> <text>0.64-1.27</text> </ observationRange> </referenceRange> </observation> </ component> <component> <observation moodCode="EVN" classCode="OBS"> <templateId root="16.840.1.103750.10..4.2" /> <id nullFlavor="NA" /> <code codeSystem="local" code="GLU" displayName= "Glucose" /> <statusCode code="completed" /> <effectiveTime value="554448263866" /> <value unit="mg/dL" xsi:type="PQ" value="127" / > <interpretationCode codeSystem="local" code="*" /> < referenceRange> <observationRange> <text>70-100</text> </observationRange> </referenceRange> </observation> </component> <component> <observation moodCode="EVN" classCode ="OBS"> <templateId root="10.29.840.1.048804.10..4.2" /> < id nullFlavor="NA" /> <code codeSystem="local" code="PHOS" displayName= "Phosphorus" /> <statusCode code="completed" /> < effectiveTime value="804618417026" /> <value unit="mg/dL" xsi:type="PQ " value="2.7" /> <referenceRange> <observationRange> <text>2.4-4.7</text> </observationRange> </ referenceRange> </observation> </component> <component> <observation moodCode="EVN" classCode="OBS"> <templateId root= "10.29.840.1.264842.10..22.4.2" /> <id nullFlavor="NA" /> < code codeSystem="local" code="K" displayName="Potassium" /> < statusCode code="completed" /> <effectiveTime value="094022605956" /> <value unit="mEq/L" xsi:type="PQ" value="3.5" /> < interpretationCode codeSystem="local" code="*" /> <referenceRange> <observationRange> <text>3.6-5.1</text> </ observationRange> </referenceRange> </observation> </ component> <component> <observation moodCode="EVN" classCode="OBS"> <templateId root="10.29.840.1.798085.10..22.4.2" /> <id nullFlavor="NA" /> <code codeSystem="local" code="NA" displayName= "Sodium" /> <statusCode code="completed" /> <effectiveTime value="750478382645" /> <value unit="mEq/L" xsi:type="PQ" value="134" / > <interpretationCode codeSystem="local" code="*" /> < referenceRange> <observationRange> <text>136-144</text> </observationRange> </referenceRange> </observation > </component> </organizer> </entry> <entry> <organizer moodCode= "EVN" classCode="BATTERY"> <templateId root="10.29.840.1.997507.10..22.4.1 " /> <id nullFlavor="NA" /> <code codeSystem="local" code="GFR" displayName="eGFR" /> <statusCode code="completed" /> <component> <observation moodCode="EVN" classCode="OBS"> <templateId root= "16.840.1.322203.07.02.22.4.2" /> <id nullFlavor="NA" /> < code codeSystem="local" code="GFR" displayName="eGFR" /> <statusCode code="completed" /> <effectiveTime value="100002221717" /> < value unit="mL/min" xsi:type="PQ" value="54" /> <interpretationCode codeSystem="local" code="*" /> <referenceRange> < observationRange> <text>>60</text> </observationRange > </referenceRange> </observation> </component> </ organizer> </entry> <entry> <organizer moodCode="EVN" classCode="BATTERY"> <templateId root="10.29.840.1.466491.07.02.22.4.1" /> <id nullFlavor= "NA" /> <code codeSystem="local" code="GLUN" displayName="Glucose NPT" /> <statusCode code="completed" /> <component> <observation moodCode="EVN" classCode="OBS"> <templateId root= "10.29.840.1.540259.07.02.22.4.2" /> <id nullFlavor="NA" /> < code codeSystem="local" code="GLUN" displayName="Glucose NPT" /> < statusCode code="completed" /> <effectiveTime value="564835748409" /> <value unit="mg/dL" xsi:type="PQ" value="142" /> < interpretationCode codeSystem="local" code="*" /> <referenceRange> <observationRange> <text>70-100</text> </ observationRange> </referenceRange> </observation> </ component> </organizer> </entry> <entry> <organizer moodCode="EVN" classCode="BATTERY"> <templateId root="840.1.137124.07.02.22.4.1" /> <id nullFlavor="NA" /> <code codeSystem="local" code="GLUN" displayName="Glucose NPT" /> <statusCode code="completed" /> < component> <observation moodCode="EVN" classCode="OBS"> < templateId root="840.1.013643.07.02.224.2" /> <id nullFlavor="NA " /> <code codeSystem="local" code="GLUN" displayName="Glucose NPT" / > <statusCode code="completed" /> <effectiveTime value= "866575446106" /> <value unit="mg/dL" xsi:type="PQ" value="131" /> <interpretationCode codeSystem="local" code="*" /> < referenceRange> <observationRange> <text>70-100</text> </observationRange> </referenceRange> </observation> </component> </organizer> </entry> <entry> <organizer moodCode= "EVN" classCode="BATTERY"> <templateId root="840.1.026073.07.02.22.4.1 " /> <id nullFlavor="NA" /> <code codeSystem="local" code="GLUN" displayName="Glucose NPT" /> <statusCode code="completed" /> < component> <observation moodCode="EVN" classCode="OBS"> < templateId root="840.1.449811.07.02.22.4.2" /> <id nullFlavor="NA " /> <code codeSystem="local" code="GLUN" displayName="Glucose NPT" / > <statusCode code="completed" /> <effectiveTime value= "621194455132" /> <value unit="mg/dL" xsi:type="PQ" value="183" /> <interpretationCode codeSystem="local" code="*" /> < referenceRange> <observationRange> <text>70-100</text> </observationRange> </referenceRange> </observation> </component> </organizer> </entry> <entry> <organizer moodCode= "EVN" classCode="BATTERY"> <templateId root="216.840.1.070018.10..22.4.1 " /> <id nullFlavor="NA" /> <code codeSystem="local" code="GLUN" displayName="Glucose NPT" /> <statusCode code="completed" /> < component> <observation moodCode="EVN" classCode="OBS"> < templateId root="16.840.1.703813.10..22.4.2" /> <id nullFlavor="NA " /> <code codeSystem="local" code="GLUN" displayName="Glucose NPT" / > <statusCode code="completed" /> <effectiveTime value= "953335200400" /> <value unit="mg/dL" xsi:type="PQ" value="176" /> <interpretationCode codeSystem="local" code="*" /> < referenceRange> <observationRange> <text>70-100</text> </observationRange> </referenceRange> </observation> </component> </organizer> </entry> <entry> <organizer moodCode= "EVN" classCode="BATTERY"> <templateId root="16.840.1.127748.10..22.4.1 " /> <id nullFlavor="NA" /> <code codeSystem="local" code="CBCND" displayName="CBC With Platelet No Differential" /> <statusCode code= "completed" /> <component> <observation moodCode="EVN" classCode= "OBS"> <templateId root="10.29.840.1.425334.10.20.22.4.2" /> < id nullFlavor="NA" /> <code codeSystem="local" code="HCT" displayName= "HCT" /> <statusCode code="completed" /> <effectiveTime value= "388355484704" /> <value unit="%" xsi:type="PQ" value="35.0" /> <interpretationCode codeSystem="local" code="*" /> < referenceRange> <observationRange> <text>42.0-52.0</text > </observationRange> </referenceRange> </observation > </component> <component> <observation moodCode="EVN" classCode="OBS"> <templateId root="840.1.794603.10.22.4.2" /> <id nullFlavor="NA" /> <code codeSystem="local" code="HGB" displayName="HGB" /> <statusCode code="completed" /> < effectiveTime value="998439364011" /> <value unit="g/dL" xsi:type="PQ" value="11.4" /> <interpretationCode codeSystem="local" code="*" /> <referenceRange> <observationRange> <text>14.0- 18.0</text> </observationRange> </referenceRange> </ observation> </component> <component> <observation moodCode= "EVN" classCode="OBS"> <templateId root="10.29.840.1.724733.10.20.22.4.2 " /> <id nullFlavor="NA" /> <code codeSystem="local" code="MCH " displayName="MCH" /> <statusCode code="completed" /> < effectiveTime value="038190738175" /> <value unit="pg" xsi:type="PQ" value="29.3" /> <referenceRange> <observationRange> <text>27.0-32.0</text> </observationRange> </ referenceRange> </observation> </component> <component> <observation moodCode="EVN" classCode="OBS"> <templateId root= "16.840.1.768057.10.20.22.4.2" /> <id nullFlavor="NA" /> < code codeSystem="local" code="MCHC" displayName="MCHC" /> <statusCode code="completed" /> <effectiveTime value="736075751206" /> < value unit="g/dL" xsi:type="PQ" value="32.6" /> <referenceRange> <observationRange> <text>32.0-36.0</text> </ observationRange> </referenceRange> </observation> </ component> <component> <observation moodCode="EVN" classCode="OBS"> <templateId root="216.840.1.859204.10.20.22.4.2" /> <id nullFlavor="NA" /> <code codeSystem="local" code="MCV" displayName="MCV " /> <statusCode code="completed" /> <effectiveTime value= "795065180201" /> <value unit="fL" xsi:type="PQ" value="90.0" /> <referenceRange> <observationRange> <text>82.0-99.0< /text> </observationRange> </referenceRange> </ observation> </component> <component> <observation moodCode= "EVN" classCode="OBS"> <templateId root="216.840.1.769949.22.4.2 " /> <id nullFlavor="NA" /> <code codeSystem="local" code="MPV " displayName="MPV" /> <statusCode code="completed" /> < effectiveTime value="325076579413" /> <value unit="fL" xsi:type="PQ" value="11.7" /> <referenceRange> <observationRange> <text>9.4-12.3</text> </observationRange> </ referenceRange> </observation> </component> <component> <observation moodCode="EVN" classCode="OBS"> <templateId root= "10.29.840.1.324541.07.02.224.2" /> <id nullFlavor="NA" /> < code codeSystem="local" code="PLT" displayName="Platelet Count" /> < statusCode code="completed" /> <effectiveTime value="824958663239" /> <value unit="K/uL" xsi:type="PQ" value="147" /> < interpretationCode codeSystem="local" code="*" /> <referenceRange> <observationRange> <text>150-400</text> </ observationRange> </referenceRange> </observation> </ component> <component> <observation moodCode="EVN" classCode="OBS"> <templateId root="10.29.840.1.634925.07.02.22.4.2" /> <id nullFlavor="NA" /> <code codeSystem="local" code="RBC" displayName="RBC " /> <statusCode code="completed" /> <effectiveTime value= "686283925429" /> <value unit="10*6/uL" xsi:type="PQ" value="3.89" /> <interpretationCode codeSystem="local" code="*" /> < referenceRange> <observationRange> <text>4.60-6.20</text > </observationRange> </referenceRange> </observation > </component> <component> <observation moodCode="EVN" classCode="OBS"> <templateId root="10.29.840.1.501647.10.20.22.4.2" /> <id nullFlavor="NA" /> <code codeSystem="local" code="RDW" displayName="RDW" /> <statusCode code="completed" /> < effectiveTime value="648850696376" /> <value unit="%" xsi:type="PQ " value="17.2" /> <interpretationCode codeSystem="local" code="*" /> <referenceRange> <observationRange> <text>11.5- 14.5</text> </observationRange> </referenceRange> </ observation> </component> <component> <observation moodCode= "EVN" classCode="OBS"> <templateId root="10.29.840.1.167575...22.4.2 " /> <id nullFlavor="NA" /> <code codeSystem="local" code= "WBCIR" displayName="WBC" /> <statusCode code="completed" /> < effectiveTime value="208663500975" /> <value unit="K/uL" xsi:type="PQ" value="12.6" /> <interpretationCode codeSystem="local" code="*" /> <referenceRange> <observationRange> <text>4.8-10.8 </text> </observationRange> </referenceRange> </ observation> </component> </organizer> </entry> <entry> <organizer moodCode="EVN" classCode="BATTERY"> <templateId root= "10.29.840.1.701424.10.20.22.4.1" /> <id nullFlavor="NA" /> <code codeSystem="local" code="RENAL" displayName="Renal Function Panel" /> < statusCode code="completed" /> <component> <observation moodCode= "EVN" classCode="OBS"> <templateId root="10.29.840.1.285200.10..22.4.2 " /> <id nullFlavor="NA" /> <code codeSystem="local" code="ALB " displayName="Albumin" /> <statusCode code="completed" /> < effectiveTime value="702907504706" /> <value unit="g/dL" xsi:type="PQ" value="2.6" /> <interpretationCode codeSystem="local" code="*" /> <referenceRange> <observationRange> <text>3.5-4.8</ text> </observationRange> </referenceRange> </ observation> </component> <component> <observation moodCode= "EVN" classCode="OBS"> <templateId root="840.1.538267.07.02.22.4.2 " /> <id nullFlavor="NA" /> <code codeSystem="local" code= "AGAP" displayName="Anion Gap" /> <statusCode code="completed" /> <effectiveTime value="766453654056" /> <value unit="mEq/L" xsi: type="PQ" value="9" /> <referenceRange> <observationRange> <text>3-20</text> </observationRange> </ referenceRange> </observation> </component> <component> <observation moodCode="EVN" classCode="OBS"> <templateId root= "10.29.840.1.599308.10..22.4.2" /> <id nullFlavor="NA" /> < code codeSystem="local" code="BUN" displayName="BUN" /> <statusCode code="completed" /> <effectiveTime value="834859781857" /> < value unit="mg/dL" xsi:type="PQ" value="22" /> <interpretationCode codeSystem="local" code="*" /> <referenceRange> < observationRange> <text>4-20</text> </observationRange> </referenceRange> </observation> </component> < component> <observation moodCode="EVN" classCode="OBS"> < templateId root="216.840.1.500662.10.20.22.4.2" /> <id nullFlavor="NA " /> <code codeSystem="local" code="CA" displayName="Calcium" /> <statusCode code="completed" /> <effectiveTime value="767836807132 " /> <value unit="mg/dL" xsi:type="PQ" value="7.8" /> < interpretationCode codeSystem="local" code="*" /> <referenceRange> <observationRange> <text>8.6-10.0</text> </ observationRange> </referenceRange> </observation> </ component> <component> <observation moodCode="EVN" classCode="OBS"> <templateId root="216.840.1.298464.10.20.22.4.2" /> <id nullFlavor="NA" /> <code codeSystem="local" code="CL" displayName= "Chloride" /> <statusCode code="completed" /> <effectiveTime value="834993466925" /> <value unit="mEq/L" xsi:type="PQ" value="97" / > <interpretationCode codeSystem="local" code="*" /> < referenceRange> <observationRange> <text>99-109</text> </observationRange> </referenceRange> </observation> </component> <component> <observation moodCode="EVN" classCode ="OBS"> <templateId root="16.840.1.520986.10..22.4.2" /> < id nullFlavor="NA" /> <code codeSystem="local" code="CO2" displayName= "CO2" /> <statusCode code="completed" /> <effectiveTime value= "" /> <value unit="mEq/L" xsi:type="PQ" value="26" /> <referenceRange> <observationRange> <text>22-32</ text> </observationRange> </referenceRange> </ observation> </component> <component> <observation moodCode= "EVN" classCode="OBS"> <templateId root="10.29.840.1.762237.10..4.2 " /> <id nullFlavor="NA" /> <code codeSystem="local" code= "CREAT" displayName="Creatinine" /> <statusCode code="completed" /> <effectiveTime value="" /> <value unit="mg/dL" xsi: type="PQ" value="1.31" /> <interpretationCode codeSystem="local" code= "*" /> <referenceRange> <observationRange> < text>0.64-1.27</text> </observationRange> </referenceRange> </observation> </component> <component> <observation moodCode="EVN" classCode="OBS"> <templateId root= "10.29.840.1.687480.10.2022.4.2" /> <id nullFlavor="NA" /> < code codeSystem="local" code="GLU" displayName="Glucose" /> < statusCode code="completed" /> <effectiveTime value="201536799829" /> <value unit="mg/dL" xsi:type="PQ" value="116" /> < interpretationCode codeSystem="local" code="*" /> <referenceRange> <observationRange> <text>70-100</text> </ observationRange> </referenceRange> </observation> </ component> <component> <observation moodCode="EVN" classCode="OBS"> <templateId root="10.29.840.1.404694.10.20.22.4.2" /> <id nullFlavor="NA" /> <code codeSystem="local" code="PHOS" displayName= "Phosphorus" /> <statusCode code="completed" /> < effectiveTime value="471480493179" /> <value unit="mg/dL" xsi:type="PQ " value="3.0" /> <referenceRange> <observationRange> <text>2.4-4.7</text> </observationRange> </ referenceRange> </observation> </component> <component> <observation moodCode="EVN" classCode="OBS"> <templateId root= "840.1.468634.22.4.2" /> <id nullFlavor="NA" /> < code codeSystem="local" code="K" displayName="Potassium" /> < statusCode code="completed" /> <effectiveTime value="393081645222" /> <value unit="mEq/L" xsi:type="PQ" value="3.6" /> < referenceRange> <observationRange> <text>3.6-5.1</text> </observationRange> </referenceRange> </observation > </component> <component> <observation moodCode="EVN" classCode="OBS"> <templateId root="10.29.840.1.687179.10.20.22.4.2" /> <id nullFlavor="NA" /> <code codeSystem="local" code="NA" displayName="Sodium" /> <statusCode code="completed" /> < effectiveTime value="142115199273" /> <value unit="mEq/L" xsi:type="PQ " value="132" /> <interpretationCode codeSystem="local" code="*" /> <referenceRange> <observationRange> <text>136-144 </text> </observationRange> </referenceRange> </ observation> </component> </organizer> </entry> <entry> <organizer moodCode="EVN" classCode="BATTERY"> <templateId root= "16.840.1.240850.10..22.4.1" /> <id nullFlavor="NA" /> <code codeSystem="local" code="GFR" displayName="eGFR" /> <statusCode code= "completed" /> <component> <observation moodCode="EVN" classCode= "OBS"> <templateId root="10.29.840.1.272168.10..22.4.2" /> < id nullFlavor="NA" /> <code codeSystem="local" code="GFR" displayName= "eGFR" /> <statusCode code="completed" /> <effectiveTime value ="460165760620" /> <value unit="mL/min" xsi:type="PQ" value="58" /> <interpretationCode codeSystem="local" code="*" /> < referenceRange> <observationRange> <text>>60</text> </observationRange> </referenceRange> </observation> </component> </organizer> </entry> <entry> <organizer moodCode= "EVN" classCode="BATTERY"> <templateId root="10.29.840.1.139201.10.20.22.4.1 " /> <id nullFlavor="NA" /> <code codeSystem="local" code="GLUN" displayName="Glucose NPT" /> <statusCode code="completed" /> < component> <observation moodCode="EVN" classCode="OBS"> < templateId root="216.840.1.463143.10.4.2" /> <id nullFlavor="NA " /> <code codeSystem="local" code="GLUN" displayName="Glucose NPT" / > <statusCode code="completed" /> <effectiveTime value= "787338211279" /> <value unit="mg/dL" xsi:type="PQ" value="124" /> <interpretationCode codeSystem="local" code="*" /> < referenceRange> <observationRange> <text>70-100</text> </observationRange> </referenceRange> </observation> </component> </organizer> </entry> <entry> <organizer moodCode= "EVN" classCode="BATTERY"> <templateId root="216.840.1.249575.10..22.4.1 " /> <id nullFlavor="NA" /> <code codeSystem="local" code="RPR" displayName="RPR" /> <statusCode code="completed" /> <component> <observation moodCode="EVN" classCode="OBS"> <templateId root= "216.840.1.164984.10...4.2" /> <id nullFlavor="NA" /> < code codeSystem="local" code="RPR" displayName="RPR" /> <statusCode code="completed" /> <effectiveTime value="991058280834" /> < value unit="NA" xsi:type="PQ" value="Non-reactive" /> <referenceRange> <observationRange> <text /> </ observationRange> </referenceRange> </observation> </ component> </organizer> </entry> <entry> <organizer moodCode="EVN" classCode="BATTERY"> <templateId root="16.840.1.593620.10...4.1" /> <id nullFlavor="NA" /> <code codeSystem="local" code="QUATB" displayName="Quantiferon TB Test" /> <statusCode code="completed" /> < component> <observation moodCode="EVN" classCode="OBS"> < templateId root="10.29.840.1.929406.10..4.2" /> <id nullFlavor="NA " /> <code codeSystem="local" code="QUATB" displayName="Quantiferon TB Test" /> <statusCode code="completed" /> <effectiveTime value= "076146427419" /> <value unit="NA" xsi:type="PQ" value="Negative" /> <referenceRange> <observationRange> <text> Negative</text> </observationRange> </referenceRange> </observation> </component> </organizer> </entry> <entry> < organizer moodCode="EVN" classCode="BATTERY"> <templateId root= "10.29.840.1.563329.10..4.1" /> <id nullFlavor="NA" /> <code codeSystem="local" code="B12FO" displayName="B12 and Folate" /> < statusCode code="completed" /> <component> <observation moodCode= "EVN" classCode="OBS"> <templateId root="10.29.840.1.990891.10...4.2 " /> <id nullFlavor="NA" /> <code codeSystem="local" code= "FOLAT" displayName="Folate" /> <statusCode code="completed" /> <effectiveTime value="850794450571" /> <value unit="ng/mL" xsi:type= "PQ" value="9.6" /> <referenceRange> <observationRange> <text>7.0-31.4</text> </observationRange> </ referenceRange> </observation> </component> <component> <observation moodCode="EVN" classCode="OBS"> <templateId root= "840.1.351939.07.02.22.4.2" /> <id nullFlavor="NA" /> < code codeSystem="local" code="B12" displayName="Vitamin B12" /> < statusCode code="completed" /> <effectiveTime value="889376821727" /> <value unit="pg/mL" xsi:type="PQ" value="969" /> < interpretationCode codeSystem="local" code="*" /> <referenceRange> <observationRange> <text>213-816</text> </ observationRange> </referenceRange> </observation> </ component> </organizer> </entry> <entry> <organizer moodCode="EVN" classCode="BATTERY"> <templateId root="840.1.567136.07.02.22.4.1" /> <id nullFlavor="NA" /> <code codeSystem="local" code="TSHR" displayName="TSH with Reflex Free T4" /> <statusCode code="completed" /> <component> <observation moodCode="EVN" classCode="OBS"> < templateId root="840.1.909328.07.02.22.4.2" /> <id nullFlavor="NA " /> <code codeSystem="local" code="TSHR" displayName="TSH with Reflex Free T4" /> <statusCode code="completed" /> <effectiveTime value="967910539581" /> <value unit="uIU/mL" xsi:type="PQ" value="3.79 " /> <referenceRange> <observationRange> <text> 0.35-4.94</text> </observationRange> </referenceRange> </observation> </component> </organizer> </entry> <entry> < organizer moodCode="EVN" classCode="BATTERY"> <templateId root= "10.29.840.1.805242.10..22.4.1" /> <id nullFlavor="NA" /> <code codeSystem="local" code="ZG999" displayName="Toxoplasma IgG and IgM" /> < statusCode code="completed" /> <component> <observation moodCode= "EVN" classCode="OBS"> <templateId root="10.29.840.1.813999.10...4.2 " /> <id nullFlavor="NA" /> <code codeSystem="local" code= "Z5920" displayName="Toxoplasma Ab IgG" /> <statusCode code="completed " /> <effectiveTime value="" /> <value unit="NA" xsi:type="PQ" value="Negative" /> <referenceRange> < observationRange> <text>Negative</text> </ observationRange> </referenceRange> </observation> </ component> <component> <observation moodCode="EVN" classCode="OBS"> <templateId root="10.29.840.1.862799.10..4.2" /> <id nullFlavor="NA" /> <code codeSystem="local" code="Z6238" displayName= "Toxoplasma IgG Value" /> <statusCode code="completed" /> < effectiveTime value="576622946143" /> <value unit="IU/mL" xsi:type="PQ " value="<3" /> <referenceRange> <observationRange> <text /> </observationRange> </referenceRange> </observation> </component> </organizer> </entry> <entry> < organizer moodCode="EVN" classCode="BATTERY"> <templateId root= "840.1.330362.07.02.22.4.1" /> <id nullFlavor="NA" /> <code codeSystem="local" code="GLUN" displayName="Glucose NPT" /> <statusCode code="completed" /> <component> <observation moodCode="EVN" classCode="OBS"> <templateId root="840.1.086660.07.02.22.4.2" /> <id nullFlavor="NA" /> <code codeSystem="local" code="GLUN" displayName="Glucose NPT" /> <statusCode code="completed" /> <effectiveTime value="996950304638" /> <value unit="mg/dL" xsi:type="PQ " value="118" /> <interpretationCode codeSystem="local" code="*" /> <referenceRange> <observationRange> <text>70-100< /text> </observationRange> </referenceRange> </ observation> </component> </organizer> </entry> <entry> <organizer moodCode="EVN" classCode="BATTERY"> <templateId root= "840.1.885736.07.02.22.4.1" /> <id nullFlavor="NA" /> <code codeSystem="local" code="CBCWD" displayName="CBC With Platelet and Differential " /> <statusCode code="completed" /> <component> <observation moodCode="EVN" classCode="OBS"> <templateId root= "840.1.082638.07.02.22.4.2" /> <id nullFlavor="NA" /> < code codeSystem="local" code="ABASR" displayName="Absolute Basophils" /> <statusCode code="completed" /> <effectiveTime value="" /> <value unit="10*3/uL" xsi:type="PQ" value="0.01" /> < referenceRange> <observationRange> <text>0.00-0.20</text > </observationRange> </referenceRange> </observation > </component> <component> <observation moodCode="EVN" classCode="OBS"> <templateId root="216.840.1.289208.10...4.2" /> <id nullFlavor="NA" /> <code codeSystem="local" code="AEOSR" displayName="Absolute Eosinophils" /> <statusCode code="completed" /> <effectiveTime value="471639264428" /> <value unit="103/uL" xsi:type="PQ" value="0.75" /> <interpretationCode codeSystem="local" code="*" /> <referenceRange> <observationRange> <text>0.00-0.50</text> </observationRange> </ referenceRange> </observation> </component> <component> <observation moodCode="EVN" classCode="OBS"> <templateId root= "216.840.1.964778.07.02.22.4.2" /> <id nullFlavor="NA" /> < code codeSystem="local" code="ALYMR" displayName="Absolute Lymphocytes" /> <statusCode code="completed" /> <effectiveTime value=" " /> <value unit="10*3/uL" xsi:type="PQ" value="1.65" /> < referenceRange> <observationRange> <text>0.80-3.30</text > </observationRange> </referenceRange> </observation > </component> <component> <observation moodCode="EVN" classCode="OBS"> <templateId root="16.840.1.275481.07.02.22.4.2" /> <id nullFlavor="NA" /> <code codeSystem="local" code="AMONR" displayName="Absolute Monocytes" /> <statusCode code="completed" /> <effectiveTime value="" /> <value unit="10*3/uL" xsi :type="PQ" value="2.16" /> <interpretationCode codeSystem="local" code= "*" /> <referenceRange> <observationRange> < text>0.30-1.00</text> </observationRange> </referenceRange> </observation> </component> <component> <observation moodCode="EVN" classCode="OBS"> <templateId root= "10.29.840.1.241533.07.02.224.2" /> <id nullFlavor="NA" /> < code codeSystem="local" code="ASEGR" displayName="Absolute Neutrophils" /> <statusCode code="completed" /> <effectiveTime value=" " /> <value unit="10*3/uL" xsi:type="PQ" value="7.86" /> < interpretationCode codeSystem="local" code="*" /> <referenceRange> <observationRange> <text>1.90-7.00</text> </ observationRange> </referenceRange> </observation> </ component> <component> <observation moodCode="EVN" classCode="OBS"> <templateId root="10.29.840.1.578594.07.02.22.4.2" /> <id nullFlavor="NA" /> <code codeSystem="local" code="BASOR" displayName= "Basophils" /> <statusCode code="completed" /> <effectiveTime value="979853353206" /> <value unit="%" xsi:type="PQ" value="0" /> <referenceRange> <observationRange> <text>0-2< /text> </observationRange> </referenceRange> </ observation> </component> <component> <observation moodCode= "EVN" classCode="OBS"> <templateId root="16.840.1.066834.10.22.4.2 " /> <id nullFlavor="NA" /> <code codeSystem="local" code= "EOSR" displayName="Eosinophils" /> <statusCode code="completed" /> <effectiveTime value="515671493982" /> <value unit="%" xsi: type="PQ" value="6" /> <interpretationCode codeSystem="local" code="*" /> <referenceRange> <observationRange> <text>0- 4</text> </observationRange> </referenceRange> </ observation> </component> <component> <observation moodCode= "EVN" classCode="OBS"> <templateId root="16.840.1.203451.10.22.4.2 " /> <id nullFlavor="NA" /> <code codeSystem="local" code="HCT " displayName="HCT" /> <statusCode code="completed" /> < effectiveTime value="564801702690" /> <value unit="%" xsi:type="PQ " value="34.8" /> <interpretationCode codeSystem="local" code="*" /> <referenceRange> <observationRange> <text>42.0- 52.0</text> </observationRange> </referenceRange> </ observation> </component> <component> <observation moodCode= "EVN" classCode="OBS"> <templateId root="10.29.840.1.405572.10.20.22.4.2 " /> <id nullFlavor="NA" /> <code codeSystem="local" code="HGB " displayName="HGB" /> <statusCode code="completed" /> < effectiveTime value="[id number]" /> <value unit="g/dL" xsi:type="PQ" value="11.3" /> <interpretationCode codeSystem="local" code="*" /> <referenceRange> <observationRange> <text>14.0- 18.0</text> </observationRange> </referenceRange> </ observation> </component> <component> <observation moodCode= "EVN" classCode="OBS"> <templateId root="10.29.840.1.527560.10..4.2 " /> <id nullFlavor="NA" /> <code codeSystem="local" code= "IMGA" displayName="Immature Granulocytes" /> <statusCode code= "completed" /> <effectiveTime value="" /> <value unit="%" xsi:type="PQ" value="0.6" /> <referenceRange> < observationRange> <text>0.0-1.0</text> </ observationRange> </referenceRange> </observation> </ component> <component> <observation moodCode="EVN" classCode="OBS"> <templateId root="10.29.840.1.440002.10..22.4.2" /> <id nullFlavor="NA" /> <code codeSystem="local" code="LYMPR" displayName= "Lymphocytes" /> <statusCode code="completed" /> < effectiveTime value="519808210583" /> <value unit="%" xsi:type="PQ " value="13" /> <interpretationCode codeSystem="local" code="*" /> <referenceRange> <observationRange> <text>20-46</ text> </observationRange> </referenceRange> </ observation> </component> <component> <observation moodCode= "EVN" classCode="OBS"> <templateId root="216.840.1.890842.10.20.4.2 " /> <id nullFlavor="NA" /> <code codeSystem="local" code="MCH " displayName="MCH" /> <statusCode code="completed" /> < effectiveTime value="115817278826" /> <value unit="pg" xsi:type="PQ" value="29.4" /> <referenceRange> <observationRange> <text>27.0-32.0</text> </observationRange> </ referenceRange> </observation> </component> <component> <observation moodCode="EVN" classCode="OBS"> <templateId root= "10.29.840.1.191883.104.2" /> <id nullFlavor="NA" /> < code codeSystem="local" code="MCHC" displayName="MCHC" /> <statusCode code="completed" /> <effectiveTime value="254990414871" /> < value unit="g/dL" xsi:type="PQ" value="32.5" /> <referenceRange> <observationRange> <text>32.0-36.0</text> </ observationRange> </referenceRange> </observation> </ component> <component> <observation moodCode="EVN" classCode="OBS"> <templateId root="10.29.840.1.705723.10.20.4.2" /> <id nullFlavor="NA" /> <code codeSystem="local" code="MCV" displayName="MCV " /> <statusCode code="completed" /> <effectiveTime value= "202986807740" /> <value unit="fL" xsi:type="PQ" value="90.4" /> <referenceRange> <observationRange> <text>82.0-99.0< /text> </observationRange> </referenceRange> </ observation> </component> <component> <observation moodCode= "EVN" classCode="OBS"> <templateId root="10.29.840.1.989820.07.02.22.4.2 " /> <id nullFlavor="NA" /> <code codeSystem="local" code= "MONOR" displayName="Monocytes" /> <statusCode code="completed" /> <effectiveTime value="127630718158" /> <value unit="%" xsi: type="PQ" value="17" /> <interpretationCode codeSystem="local" code="* " /> <referenceRange> <observationRange> <text> 4-11</text> </observationRange> </referenceRange> </ observation> </component> <component> <observation moodCode= "EVN" classCode="OBS"> <templateId root="10.29.840.1.972612.07.02.22.4.2 " /> <id nullFlavor="NA" /> <code codeSystem="local" code="MPV " displayName="MPV" /> <statusCode code="completed" /> < effectiveTime value="545551421551" /> <value unit="fL" xsi:type="PQ" value="11.7" /> <referenceRange> <observationRange> <text>9.4-12.3</text> </observationRange> </ referenceRange> </observation> </component> <component> <observation moodCode="EVN" classCode="OBS"> <templateId root= "10.29.840.1.140086.07.02.22.4.2" /> <id nullFlavor="NA" /> < code codeSystem="local" code="SEGR" displayName="Neutrophils" /> < statusCode code="completed" /> <effectiveTime value="" /> <value unit="%" xsi:type="PQ" value="63" /> < referenceRange> <observationRange> <text>51-75</text> </observationRange> </referenceRange> </observation> </component> <component> <observation moodCode="EVN" classCode= "OBS"> <templateId root="2.16.840.1.605315.07.02.22.4.2" /> < id nullFlavor="NA" /> <code codeSystem="local" code="NRBCA" displayName ="Nucleated RBC Automated" /> <statusCode code="completed" /> <effectiveTime value="" /> <value unit="/100WBC" xsi:type= "PQ" value="0.3" /> <referenceRange> <observationRange> <text /> </observationRange> </referenceRange> </observation> </component> <component> <observation moodCode="EVN" classCode="OBS"> <templateId root= "2.16.840.1.688464.10..4.2" /> <id nullFlavor="NA" /> < code codeSystem="local" code="PLT" displayName="Platelet Count" /> < statusCode code="completed" /> <effectiveTime value="" /> <value unit="K/uL" xsi:type="PQ" value="126" /> < interpretationCode codeSystem="local" code="*" /> <referenceRange> <observationRange> <text>150-400</text> </ observationRange> </referenceRange> </observation> </ component> <component> <observation moodCode="EVN" classCode="OBS"> <templateId root="216.840.1.714404.10.22.4.2" /> <id nullFlavor="NA" /> <code codeSystem="local" code="RBC" displayName="RBC " /> <statusCode code="completed" /> <effectiveTime value= "" /> <value unit="10*6/uL" xsi:type="PQ" value="3.85" /> <interpretationCode codeSystem="local" code="*" /> < referenceRange> <observationRange> <text>4.60-6.20</text > </observationRange> </referenceRange> </observation > </component> <component> <observation moodCode="EVN" classCode="OBS"> <templateId root="10.29.840.1.449589.07.02.224.2" /> <id nullFlavor="NA" /> <code codeSystem="local" code="RDW" displayName="RDW" /> <statusCode code="completed" /> < effectiveTime value="" /> <value unit="%" xsi:type="PQ " value="17.8" /> <interpretationCode codeSystem="local" code="*" /> <referenceRange> <observationRange> <text>11.5- 14.5</text> </observationRange> </referenceRange> </ observation> </component> <component> <observation moodCode= "EVN" classCode="OBS"> <templateId root="16.840.1.766701.22.4.2 " /> <id nullFlavor="NA" /> <code codeSystem="local" code= "WBCIR" displayName="WBC" /> <statusCode code="completed" /> < effectiveTime value="488663305600" /> <value unit="K/uL" xsi:type="PQ" value="12.5" /> <interpretationCode codeSystem="local" code="*" /> <referenceRange> <observationRange> <text>4.8-10.8 </text> </observationRange> </referenceRange> </ observation> </component> </organizer> </entry> <entry> <organizer moodCode="EVN" classCode="BATTERY"> <templateId root= "216.840.1.786801.10..22.4.1" /> <id nullFlavor="NA" /> <code codeSystem="local" code="GLUN" displayName="Glucose NPT" /> <statusCode code="completed" /> <component> <observation moodCode="EVN" classCode="OBS"> <templateId root="216.840.1.241433.10..22.4.2" /> <id nullFlavor="NA" /> <code codeSystem="local" code="GLUN" displayName="Glucose NPT" /> <statusCode code="completed" /> <effectiveTime value="455395764915" /> <value unit="mg/dL" xsi:type="PQ " value="93" /> <referenceRange> <observationRange> <text>70-100</text> </observationRange> </ referenceRange> </observation> </component> </organizer> </entry > <entry> <organizer moodCode="EVN" classCode="BATTERY"> <templateId root="216.840.1.561312.10..22.4.1" /> <id nullFlavor="NA" /> <code codeSystem="local" code="MG" displayName="Magnesium" /> <statusCode code= "completed" /> <component> <observation moodCode="EVN" classCode= "OBS"> <templateId root="16.840.1.419576.10..22.4.2" /> < id nullFlavor="NA" /> <code codeSystem="local" code="MG" displayName= "Magnesium" /> <statusCode code="completed" /> <effectiveTime value="" /> <value unit="mg/dL" xsi:type="PQ" value="2.0" / > <referenceRange> <observationRange> <text>1.8 -2.5</text> </observationRange> </referenceRange> </ observation> </component> </organizer> </entry> <entry> <organizer moodCode="EVN" classCode="BATTERY"> <templateId root= "16.840.1.398204.10..22.4.1" /> <id nullFlavor="NA" /> <code codeSystem="local" code="PHOS" displayName="Phosphorus" /> <statusCode code ="completed" /> <component> <observation moodCode="EVN" classCode= "OBS"> <templateId root="216.840.1.101380.10..22.4.2" /> < id nullFlavor="NA" /> <code codeSystem="local" code="PHOS" displayName= "Phosphorus" /> <statusCode code="completed" /> < effectiveTime value="113879908418" /> <value unit="mg/dL" xsi:type="PQ " value="3.5" /> <referenceRange> <observationRange> <text>2.4-4.7</text> </observationRange> </ referenceRange> </observation> </component> </organizer> </entry > <entry> <organizer moodCode="EVN" classCode="BATTERY"> <templateId root="16.840.1.315024..22.4.1" /> <id nullFlavor="NA" /> <code codeSystem="local" code="CMP" displayName="Comprehensive Metabolic Panel (CMP)" /> <statusCode code="completed" /> <component> <observation moodCode="EVN" classCode="OBS"> <templateId root= "10.29.840.1.854098.07.02.22.4.2" /> <id nullFlavor="NA" /> < code codeSystem="local" code="ALB" displayName="Albumin" /> < statusCode code="completed" /> <effectiveTime value="891620421128" /> <value unit="g/dL" xsi:type="PQ" value="2.5" /> < interpretationCode codeSystem="local" code="*" /> <referenceRange> <observationRange> <text>3.5-4.8</text> </ observationRange> </referenceRange> </observation> </ component> <component> <observation moodCode="EVN" classCode="OBS"> <templateId root="10.29.840.1.756132.07.02.22.4.2" /> <id nullFlavor="NA" /> <code codeSystem="local" code="ALP" displayName= "Alkaline Phosphatase" /> <statusCode code="completed" /> < effectiveTime value="495111646431" /> <value unit="U/L" xsi:type="PQ" value="121" /> <interpretationCode codeSystem="local" code="*" /> <referenceRange> <observationRange> <text>26-104</ text> </observationRange> </referenceRange> </ observation> </component> <component> <observation moodCode= "EVN" classCode="OBS"> <templateId root="10.29.840.1.554836.07.02.224.2 " /> <id nullFlavor="NA" /> <code codeSystem="local" code="ALT " displayName="ALT (SGPT)" /> <statusCode code="completed" /> <effectiveTime value="" /> <value unit="U/L" xsi:type="PQ" value="275" /> <interpretationCode codeSystem="local" code="*" /> <referenceRange> <observationRange> <text>17-63</ text> </observationRange> </referenceRange> </ observation> </component> <component> <observation moodCode= "EVN" classCode="OBS"> <templateId root="2.16.840.1.944593.07.02.224.2 " /> <id nullFlavor="NA" /> <code codeSystem="local" code= "AGAP" displayName="Anion Gap" /> <statusCode code="completed" /> <effectiveTime value="" /> <value unit="mEq/L" xsi: type="PQ" value="9" /> <referenceRange> <observationRange> <text>3-20</text> </observationRange> </ referenceRange> </observation> </component> <component> <observation moodCode="EVN" classCode="OBS"> <templateId root= "216.840.1.360563.07.02.22.4.2" /> <id nullFlavor="NA" /> < code codeSystem="local" code="AST" displayName="AST (SGOT)" /> < statusCode code="completed" /> <effectiveTime value="" /> <value unit="U/L" xsi:type="PQ" value="101" /> < interpretationCode codeSystem="local" code="*" /> <referenceRange> <observationRange> <text>15-41</text> </ observationRange> </referenceRange> </observation> </ component> <component> <observation moodCode="EVN" classCode="OBS"> <templateId root="216.840.1.237900.1022.4.2" /> <id nullFlavor="NA" /> <code codeSystem="local" code="BILIT" displayName= "Bilirubin Total" /> <statusCode code="completed" /> < effectiveTime value="" /> <value unit="mg/dL" xsi:type="PQ " value="2.3" /> <interpretationCode codeSystem="local" code="*" /> <referenceRange> <observationRange> <text>0.2-1.2 </text> </observationRange> </referenceRange> </ observation> </component> <component> <observation moodCode= "EVN" classCode="OBS"> <templateId root="16.840.1.900396.07.02.22.4.2 " /> <id nullFlavor="NA" /> <code codeSystem="local" code="BUN " displayName="BUN" /> <statusCode code="completed" /> < effectiveTime value="" /> <value unit="mg/dL" xsi:type="PQ " value="20" /> <referenceRange> <observationRange> <text>4-20</text> </observationRange> </referenceRange > </observation> </component> <component> <observation moodCode="EVN" classCode="OBS"> <templateId root= "16.840.1.065778.10..4.2" /> <id nullFlavor="NA" /> < code codeSystem="local" code="CA" displayName="Calcium" /> <statusCode code="completed" /> <effectiveTime value="" /> < value unit="mg/dL" xsi:type="PQ" value="7.9" /> <interpretationCode codeSystem="local" code="*" /> <referenceRange> < observationRange> <text>8.6-10.0</text> </ observationRange> </referenceRange> </observation> </ component> <component> <observation moodCode="EVN" classCode="OBS"> <templateId root="10.29.840.1.953844.07.02.22.4.2" /> <id nullFlavor="NA" /> <code codeSystem="local" code="CL" displayName= "Chloride" /> <statusCode code="completed" /> <effectiveTime value="667282742116" /> <value unit="mEq/L" xsi:type="PQ" value="98" / > <interpretationCode codeSystem="local" code="*" /> < referenceRange> <observationRange> <text>99-109</text> </observationRange> </referenceRange> </observation> </component> <component> <observation moodCode="EVN" classCode ="OBS"> <templateId root="10.29.840.1.026821.07.02.22.4.2" /> < id nullFlavor="NA" /> <code codeSystem="local" code="CO2" displayName= "CO2" /> <statusCode code="completed" /> <effectiveTime value= "605508980210" /> <value unit="mEq/L" xsi:type="PQ" value="25" /> <referenceRange> <observationRange> <text>22-32</ text> </observationRange> </referenceRange> </ observation> </component> <component> <observation moodCode= "EVN" classCode="OBS"> <templateId root="10.29.840.1.250605.07.02.22.4.2 " /> <id nullFlavor="NA" /> <code codeSystem="local" code= "CREAT" displayName="Creatinine" /> <statusCode code="completed" /> <effectiveTime value="" /> <value unit="mg/dL" xsi: type="PQ" value="1.26" /> <referenceRange> <observationRange > <text>0.64-1.27</text> </observationRange> </ referenceRange> </observation> </component> <component> <observation moodCode="EVN" classCode="OBS"> <templateId root= "2.16.840.1.187738.07.02.22.4.2" /> <id nullFlavor="NA" /> < code codeSystem="local" code="GLOB" displayName="Globulin" /> < statusCode code="completed" /> <effectiveTime value="" /> <value unit="g/dL" xsi:type="PQ" value="3.2" /> < referenceRange> <observationRange> <text>1.9-4.3</text> </observationRange> </referenceRange> </observation > </component> <component> <observation moodCode="EVN" classCode="OBS"> <templateId root="2.16.840.1.839161.07.02.22.4.2" /> <id nullFlavor="NA" /> <code codeSystem="local" code="GLU" displayName="Glucose" /> <statusCode code="completed" /> < effectiveTime value="" /> <value unit="mg/dL" xsi:type="PQ " value="99" /> <referenceRange> <observationRange> <text>70-100</text> </observationRange> </ referenceRange> </observation> </component> <component> <observation moodCode="EVN" classCode="OBS"> <templateId root= "840.1.566438.10.20.22.4.2" /> <id nullFlavor="NA" /> < code codeSystem="local" code="K" displayName="Potassium" /> < statusCode code="completed" /> <effectiveTime value="" /> <value unit="mEq/L" xsi:type="PQ" value="3.7" /> < referenceRange> <observationRange> <text>3.6-5.1</text> </observationRange> </referenceRange> </observation > </component> <component> <observation moodCode="EVN" classCode="OBS"> <templateId root="840.1.542377.1022.4.2" /> <id nullFlavor="NA" /> <code codeSystem="local" code="TP" displayName="Protein" /> <statusCode code="completed" /> < effectiveTime value="" /> <value unit="g/dL" xsi:type="PQ" value="5.7" /> <interpretationCode codeSystem="local" code="*" /> <referenceRange> <observationRange> <text>6.1-7.9</ text> </observationRange> </referenceRange> </ observation> </component> <component> <observation moodCode= "EVN" classCode="OBS"> <templateId root="840.1.911515.10.2022.4.2 " /> <id nullFlavor="NA" /> <code codeSystem="local" code="NA " displayName="Sodium" /> <statusCode code="completed" /> < effectiveTime value="" /> <value unit="mEq/L" xsi:type="PQ " value="132" /> <interpretationCode codeSystem="local" code="*" /> <referenceRange> <observationRange> <text>136-144 </text> </observationRange> </referenceRange> </ observation> </component> </organizer> </entry> <entry> <organizer moodCode="EVN" classCode="BATTERY"> <templateId root= "16.840.1.030564.1022.4.1" /> <id nullFlavor="NA" /> <code codeSystem="local" code="GFR" displayName="eGFR" /> <statusCode code= "completed" /> <component> <observation moodCode="EVN" classCode= "OBS"> <templateId root="10.29.840.1.564483.07.02.22.4.2" /> < id nullFlavor="NA" /> <code codeSystem="local" code="GFR" displayName= "eGFR" /> <statusCode code="completed" /> <effectiveTime value ="149724691619" /> <value unit="mL/min" xsi:type="PQ" value=">60" / > <referenceRange> <observationRange> <text>&gt ;60</text> </observationRange> </referenceRange> </ observation> </component> </organizer> </entry> <entry> <organizer moodCode="EVN" classCode="BATTERY"> <templateId root= "16.840.1.181760.1022.4.1" /> <id nullFlavor="NA" /> <code codeSystem="local" code="UDRGH" displayName="Urine Drug Screen" /> < statusCode code="completed" /> <component> <observation moodCode= "EVN" classCode="OBS"> <templateId root="10.29.840.1.425242.10..4.2 " /> <id nullFlavor="NA" /> <code codeSystem="local" code= "UTCA1" displayName="Tricyclics" /> <statusCode code="completed" /> <effectiveTime value="016649953378" /> <value unit="NA" xsi:type ="PQ" value="Not Detected" /> <referenceRange> < observationRange> <text /> </observationRange> </referenceRange> </observation> </component> </organizer> </ entry> <entry> <organizer moodCode="EVN" classCode="BATTERY"> < templateId root="216.840.1.831524.07.02.22.4.1" /> <id nullFlavor="NA" /> <code codeSystem="local" code="ZH089" displayName="Histoplasma Ag, U" /> <statusCode code="completed" /> <component> <observation moodCode="EVN" classCode="OBS"> <templateId root= "216.840.1.219552.10..4.2" /> <id nullFlavor="NA" /> < code codeSystem="local" code="Z6514" displayName="Histoplasma Ag, U" /> <statusCode code="completed" /> <effectiveTime value="825669036689" / > <value unit="NA" xsi:type="PQ" value="Negative" /> < referenceRange> <observationRange> <text>Negative</text > </observationRange> </referenceRange> </observation > </component> <component> <observation moodCode="EVN" classCode="OBS"> <templateId root="216.840.1.499441.10.4.2" /> <id nullFlavor="NA" /> <code codeSystem="local" code="Z6515" displayName="Histoplasma Ag, U Value" /> <statusCode code="completed" / > <effectiveTime value="993416327053" /> <value unit="ng/mL" xsi:type="PQ" value="0.03" /> <referenceRange> < observationRange> <text /> </observationRange> </referenceRange> </observation> </component> </organizer> </ entry> <entry> <organizer moodCode="EVN" classCode="BATTERY"> < templateId root="216.840.1.643691.10..22.4.1" /> <id nullFlavor="NA" /> <code codeSystem="local" code="GLUN" displayName="Glucose NPT" /> < statusCode code="completed" /> <component> <observation moodCode= "EVN" classCode="OBS"> <templateId root="216.840.1.397030.10..22.4.2 " /> <id nullFlavor="NA" /> <code codeSystem="local" code= "GLUN" displayName="Glucose NPT" /> <statusCode code="completed" /> <effectiveTime value="246921940896" /> <value unit="mg/dL" xsi: type="PQ" value="113" /> <interpretationCode codeSystem="local" code="* " /> <referenceRange> <observationRange> <text> 70-100</text> </observationRange> </referenceRange> < /observation> </component> </organizer> </entry> <entry> < organizer moodCode="EVN" classCode="BATTERY"> <templateId root= "216.840.1.732491.10..22.4.1" /> <id nullFlavor="NA" /> <code codeSystem="local" code="CBCWD" displayName="CBC With Platelet and Differential " /> <statusCode code="completed" /> <component> <observation moodCode="EVN" classCode="OBS"> <templateId root= "216.840.1.113535.10.22.4.2" /> <id nullFlavor="NA" /> < code codeSystem="local" code="HCT" displayName="HCT" /> <statusCode code="completed" /> <effectiveTime value="" /> < value unit="%" xsi:type="PQ" value="33.5" /> <interpretationCode codeSystem="local" code="*" /> <referenceRange> < observationRange> <text>42.0-52.0</text> </ observationRange> </referenceRange> </observation> </ component> <component> <observation moodCode="EVN" classCode="OBS"> <templateId root="2.840.1.838810.07.02.224.2" /> <id nullFlavor="NA" /> <code codeSystem="local" code="HGB" displayName="HGB " /> <statusCode code="completed" /> <effectiveTime value= "" /> <value unit="g/dL" xsi:type="PQ" value="10.7" /> <interpretationCode codeSystem="local" code="*" /> < referenceRange> <observationRange> <text>14.0-18.0</text > </observationRange> </referenceRange> </observation > </component> <component> <observation moodCode="EVN" classCode="OBS"> <templateId root="16.840.1.999020.1022.4.2" /> <id nullFlavor="NA" /> <code codeSystem="local" code="MCH" displayName="MCH" /> <statusCode code="completed" /> < effectiveTime value="" /> <value unit="pg" xsi:type="PQ" value="28.9" /> <referenceRange> <observationRange> <text>27.0-32.0</text> </observationRange> </ referenceRange> </observation> </component> <component> <observation moodCode="EVN" classCode="OBS"> <templateId root= "216.840.1.863111.07.02.22.4.2" /> <id nullFlavor="NA" /> < code codeSystem="local" code="MCHC" displayName="MCHC" /> <statusCode code="completed" /> <effectiveTime value="" /> < value unit="g/dL" xsi:type="PQ" value="31.9" /> <interpretationCode codeSystem="local" code="*" /> <referenceRange> < observationRange> <text>32.0-36.0</text> </ observationRange> </referenceRange> </observation> </ component> <component> <observation moodCode="EVN" classCode="OBS"> <templateId root="10.29.840.1.663032.07.02.22.4.2" /> <id nullFlavor="NA" /> <code codeSystem="local" code="MCV" displayName="MCV " /> <statusCode code="completed" /> <effectiveTime value= "099722564019" /> <value unit="fL" xsi:type="PQ" value="90.5" /> <referenceRange> <observationRange> <text>82.0-99.0< /text> </observationRange> </referenceRange> </ observation> </component> <component> <observation moodCode= "EVN" classCode="OBS"> <templateId root="216.840.1.813789.07.02.22.4.2 " /> <id nullFlavor="NA" /> <code codeSystem="local" code="MPV " displayName="MPV" /> <statusCode code="completed" /> < effectiveTime value="" /> <value unit="fL" xsi:type="PQ" value="11.4" /> <referenceRange> <observationRange> <text>9.4-12.3</text> </observationRange> </ referenceRange> </observation> </component> <component> <observation moodCode="EVN" classCode="OBS"> <templateId root= "2.16.840.1.428513.07.02.22.4.2" /> <id nullFlavor="NA" /> < code codeSystem="local" code="PLT" displayName="Platelet Count" /> < statusCode code="completed" /> <effectiveTime value="" /> <value unit="K/uL" xsi:type="PQ" value="122" /> < interpretationCode codeSystem="local" code="*" /> <referenceRange> <observationRange> <text>150-400</text> </ observationRange> </referenceRange> </observation> </ component> <component> <observation moodCode="EVN" classCode="OBS"> <templateId root="216.840.1.262742.07.02.22.4.2" /> <id nullFlavor="NA" /> <code codeSystem="local" code="RBC" displayName="RBC " /> <statusCode code="completed" /> <effectiveTime value= "" /> <value unit="10*6/uL" xsi:type="PQ" value="3.70" /> <interpretationCode codeSystem="local" code="*" /> < referenceRange> <observationRange> <text>4.60-6.20</text > </observationRange> </referenceRange> </observation > </component> <component> <observation moodCode="EVN" classCode="OBS"> <templateId root="16.840.1.909665.10.22.4.2" /> <id nullFlavor="NA" /> <code codeSystem="local" code="RDW" displayName="RDW" /> <statusCode code="completed" /> < effectiveTime value="" /> <value unit="%" xsi:type="PQ " value="18.0" /> <interpretationCode codeSystem="local" code="*" /> <referenceRange> <observationRange> <text>11.5- 14.5</text> </observationRange> </referenceRange> </ observation> </component> <component> <observation moodCode= "EVN" classCode="OBS"> <templateId root="10.29.840.1.000569.07.02.22.4.2 " /> <id nullFlavor="NA" /> <code codeSystem="local" code= "WBCIR" displayName="WBC" /> <statusCode code="completed" /> < effectiveTime value="" /> <value unit="K/uL" xsi:type="PQ" value="11.8" /> <interpretationCode codeSystem="local" code="*" /> <referenceRange> <observationRange> <text>4.8-10.8 </text> </observationRange> </referenceRange> </ observation> </component> </organizer> </entry> <entry> <organizer moodCode="EVN" classCode="BATTERY"> <templateId root= "16.840.1.919837.10.20.22.4.1" /> <id nullFlavor="NA" /> <code codeSystem="local" code="CMP" displayName="Comprehensive Metabolic Panel (CMP)" /> <statusCode code="completed" /> <component> <observation moodCode="EVN" classCode="OBS"> <templateId root= "840.1.710774.10.20.22.4.2" /> <id nullFlavor="NA" /> < code codeSystem="local" code="ALB" displayName="Albumin" /> < statusCode code="completed" /> <effectiveTime value="" /> <value unit="g/dL" xsi:type="PQ" value="2.6" /> < interpretationCode codeSystem="local" code="*" /> <referenceRange> <observationRange> <text>3.5-4.8</text> </ observationRange> </referenceRange> </observation> </ component> <component> <observation moodCode="EVN" classCode="OBS"> <templateId root="840.1.124562.10.22.4.2" /> <id nullFlavor="NA" /> <code codeSystem="local" code="ALP" displayName= "Alkaline Phosphatase" /> <statusCode code="completed" /> < effectiveTime value="[id number]" /> <value unit="U/L" xsi:type="PQ" value="113" /> <interpretationCode codeSystem="local" code="*" /> <referenceRange> <observationRange> <text>26-104</ text> </observationRange> </referenceRange> </ observation> </component> <component> <observation moodCode= "EVN" classCode="OBS"> <templateId root="10.29.840.1.417954.10.20.22.4.2 " /> <id nullFlavor="NA" /> <code codeSystem="local" code="ALT " displayName="ALT (SGPT)" /> <statusCode code="completed" /> <effectiveTime value="[id number]" /> <value unit="U/L" xsi:type="PQ" value="215" /> <interpretationCode codeSystem="local" code="*" /> <referenceRange> <observationRange> <text>17-63</ text> </observationRange> </referenceRange> </ observation> </component> <component> <observation moodCode= "EVN" classCode="OBS"> <templateId root="216.840.1.035786.10..22.4.2 " /> <id nullFlavor="NA" /> <code codeSystem="local" code= "AGAP" displayName="Anion Gap" /> <statusCode code="completed" /> <effectiveTime value="[id number]" /> <value unit="mEq/L" xsi: type="PQ" value="7" /> <referenceRange> <observationRange> <text>3-20</text> </observationRange> </ referenceRange> </observation> </component> <component> <observation moodCode="EVN" classCode="OBS"> <templateId root= "216.840.1.196702.10..22.4.2" /> <id nullFlavor="NA" /> < code codeSystem="local" code="AST" displayName="AST (SGOT)" /> < statusCode code="completed" /> <effectiveTime value="[id number]" /> <value unit="U/L" xsi:type="PQ" value="70" /> < interpretationCode codeSystem="local" code="*" /> <referenceRange> <observationRange> <text>15-41</text> </ observationRange> </referenceRange> </observation> </ component> <component> <observation moodCode="EVN" classCode="OBS"> <templateId root="16.840.1.542207.10..22.4.2" /> <id nullFlavor="NA" /> <code codeSystem="local" code="BILIT" displayName= "Bilirubin Total" /> <statusCode code="completed" /> < effectiveTime value="" /> <value unit="mg/dL" xsi:type="PQ " value="1.6" /> <interpretationCode codeSystem="local" code="*" /> <referenceRange> <observationRange> <text>0.2-1.2 </text> </observationRange> </referenceRange> </ observation> </component> <component> <observation moodCode= "EVN" classCode="OBS"> <templateId root="10.29.840.1.921617.07.02.22.4.2 " /> <id nullFlavor="NA" /> <code codeSystem="local" code="BUN " displayName="BUN" /> <statusCode code="completed" /> < effectiveTime value="" /> <value unit="mg/dL" xsi:type="PQ " value="22" /> <interpretationCode codeSystem="local" code="*" /> <referenceRange> <observationRange> <text>4-20</ text> </observationRange> </referenceRange> </ observation> </component> <component> <observation moodCode= "EVN" classCode="OBS"> <templateId root="10.29.840.1.971050.10.22.4.2 " /> <id nullFlavor="NA" /> <code codeSystem="local" code="CA " displayName="Calcium" /> <statusCode code="completed" /> < effectiveTime value="" /> <value unit="mg/dL" xsi:type="PQ " value="7.9" /> <interpretationCode codeSystem="local" code="*" /> <referenceRange> <observationRange> <text>8.6- 10.0</text> </observationRange> </referenceRange> </ observation> </component> <component> <observation moodCode= "EVN" classCode="OBS"> <templateId root="10.29.840.1.462819.10.4.2 " /> <id nullFlavor="NA" /> <code codeSystem="local" code="CL " displayName="Chloride" /> <statusCode code="completed" /> < effectiveTime value="[id number]" /> <value unit="mEq/L" xsi:type="PQ " value="97" /> <interpretationCode codeSystem="local" code="*" /> <referenceRange> <observationRange> <text>99-109</ text> </observationRange> </referenceRange> </ observation> </component> <component> <observation moodCode= "EVN" classCode="OBS"> <templateId root="840.1.278191.07.02.224.2 " /> <id nullFlavor="NA" /> <code codeSystem="local" code="CO2 " displayName="CO2" /> <statusCode code="completed" /> < effectiveTime value="135354446941" /> <value unit="mEq/L" xsi:type="PQ " value="27" /> <referenceRange> <observationRange> <text>22-32</text> </observationRange> </ referenceRange> </observation> </component> <component> <observation moodCode="EVN" classCode="OBS"> <templateId root= "10.29.840.1.287379.07.02.22.4.2" /> <id nullFlavor="NA" /> < code codeSystem="local" code="CREAT" displayName="Creatinine" /> < statusCode code="completed" /> <effectiveTime value="" /> <value unit="mg/dL" xsi:type="PQ" value="1.28" /> < interpretationCode codeSystem="local" code="*" /> <referenceRange> <observationRange> <text>0.64-1.27</text> </ observationRange> </referenceRange> </observation> </ component> <component> <observation moodCode="EVN" classCode="OBS"> <templateId root="2.16.840.1.502605.10..4.2" /> <id nullFlavor="NA" /> <code codeSystem="local" code="GLOB" displayName= "Globulin" /> <statusCode code="completed" /> <effectiveTime value="" /> <value unit="g/dL" xsi:type="PQ" value="3.0" / > <referenceRange> <observationRange> <text>1.9 -4.3</text> </observationRange> </referenceRange> </ observation> </component> <component> <observation moodCode= "EVN" classCode="OBS"> <templateId root="2.16.840.1.926608...4.2 " /> <id nullFlavor="NA" /> <code codeSystem="local" code="GLU " displayName="Glucose" /> <statusCode code="completed" /> < effectiveTime value="" /> <value unit="mg/dL" xsi:type="PQ " value="85" /> <referenceRange> <observationRange> <text>70-100</text> </observationRange> </ referenceRange> </observation> </component> <component> <observation moodCode="EVN" classCode="OBS"> <templateId root= "840.1.674506.10...4.2" /> <id nullFlavor="NA" /> < code codeSystem="local" code="K" displayName="Potassium" /> < statusCode code="completed" /> <effectiveTime value="" /> <value unit="mEq/L" xsi:type="PQ" value="3.4" /> < interpretationCode codeSystem="local" code="*" /> <referenceRange> <observationRange> <text>3.6-5.1</text> </ observationRange> </referenceRange> </observation> </ component> <component> <observation moodCode="EVN" classCode="OBS"> <templateId root="840.1.829073.07.02.22.4.2" /> <id nullFlavor="NA" /> <code codeSystem="local" code="TP" displayName= "Protein" /> <statusCode code="completed" /> <effectiveTime value="" /> <value unit="g/dL" xsi:type="PQ" value="5.6" / > <interpretationCode codeSystem="local" code="*" /> < referenceRange> <observationRange> <text>6.1-7.9</text> </observationRange> </referenceRange> </observation > </component> <component> <observation moodCode="EVN" classCode="OBS"> <templateId root="10.29.840.1.839981.07.02.22.4.2" /> <id nullFlavor="NA" /> <code codeSystem="local" code="NA" displayName="Sodium" /> <statusCode code="completed" /> < effectiveTime value="" /> <value unit="mEq/L" xsi:type="PQ " value="131" /> <interpretationCode codeSystem="local" code="*" /> <referenceRange> <observationRange> <text>136-144 </text> </observationRange> </referenceRange> </ observation> </component> </organizer> </entry> <entry> <organizer moodCode="EVN" classCode="BATTERY"> <templateId root= "16.840.1.994849.07.02.22.4.1" /> <id nullFlavor="NA" /> <code codeSystem="local" code="GFR" displayName="eGFR" /> <statusCode code= "completed" /> <component> <observation moodCode="EVN" classCode= "OBS"> <templateId root="16.840.1.057392.07.02.22.4.2" /> < id nullFlavor="NA" /> <code codeSystem="local" code="GFR" displayName= "eGFR" /> <statusCode code="completed" /> <effectiveTime value ="250902359495" /> <value unit="mL/min" xsi:type="PQ" value="60" /> <referenceRange> <observationRange> <text>>60< /text> </observationRange> </referenceRange> </ observation> </component> </organizer> </entry> <entry> <organizer moodCode="EVN" classCode="BATTERY"> <templateId root= "10.29.840.1.178513.10.4.1" /> <id nullFlavor="NA" /> <code codeSystem="local" code="GLUN" displayName="Glucose NPT" /> <statusCode code="completed" /> <component> <observation moodCode="EVN" classCode="OBS"> <templateId root="10.29.840.1.016336.22.4.2" /> <id nullFlavor="NA" /> <code codeSystem="local" code="GLUN" displayName="Glucose NPT" /> <statusCode code="completed" /> <effectiveTime value="806838515429" /> <value unit="mg/dL" xsi:type="PQ " value="109" /> <interpretationCode codeSystem="local" code="*" /> <referenceRange> <observationRange> <text>70-100< /text> </observationRange> </referenceRange> </ observation> </component> </organizer> </entry> <entry> <organizer moodCode="EVN" classCode="BATTERY"> <templateId root= "216.840.1.387162.10..22.4.1" /> <id nullFlavor="NA" /> <code codeSystem="local" code="GLUN" displayName="Glucose NPT" /> <statusCode code="completed" /> <component> <observation moodCode="EVN" classCode="OBS"> <templateId root="216.840.1.211773.10...4.2" /> <id nullFlavor="NA" /> <code codeSystem="local" code="GLUN" displayName="Glucose NPT" /> <statusCode code="completed" /> <effectiveTime value="259164787601" /> <value unit="mg/dL" xsi:type="PQ " value="174" /> <interpretationCode codeSystem="local" code="*" /> <referenceRange> <observationRange> <text>70-100< /text> </observationRange> </referenceRange> </ observation> </component> </organizer> </entry> <entry> <organizer moodCode="EVN" classCode="BATTERY"> <templateId root= "840.1.123828.07.02.22.4.1" /> <id nullFlavor="NA" /> <code codeSystem="local" code="PHOS" displayName="Phosphorus" /> <statusCode code ="completed" /> <component> <observation moodCode="EVN" classCode= "OBS"> <templateId root="840.1.440763.07.02.22.4.2" /> < id nullFlavor="NA" /> <code codeSystem="local" code="PHOS" displayName= "Phosphorus" /> <statusCode code="completed" /> < effectiveTime value="" /> <value unit="mg/dL" xsi:type="PQ " value="5.0" /> <interpretationCode codeSystem="local" code="*" /> <referenceRange> <observationRange> <text>2.4-4.7 </text> </observationRange> </referenceRange> </ observation> </component> </organizer> </entry> <entry> <organizer moodCode="EVN" classCode="BATTERY"> <templateId root= "840.1.325895.07.02.22.4.1" /> <id nullFlavor="NA" /> <code codeSystem="local" code="MG" displayName="Magnesium" /> <statusCode code= "completed" /> <component> <observation moodCode="EVN" classCode= "OBS"> <templateId root="840.1.851828.07.02.22.4.2" /> < id nullFlavor="NA" /> <code codeSystem="local" code="MG" displayName= "Magnesium" /> <statusCode code="completed" /> <effectiveTime value="" /> <value unit="mg/dL" xsi:type="PQ" value="1.7" / > <interpretationCode codeSystem="local" code="*" /> < referenceRange> <observationRange> <text>1.8-2.5</text> </observationRange> </referenceRange> </observation > </component> </organizer> </entry> <entry> <organizer moodCode= "EVN" classCode="BATTERY"> <templateId root="840.1.609380.1022.4.1 " /> <id nullFlavor="NA" /> <code codeSystem="local" code="CMP" displayName="Comprehensive Metabolic Panel (CMP)" /> <statusCode code= "completed" /> <component> <observation moodCode="EVN" classCode= "OBS"> <templateId root="840.1.556531.10.22.4.2" /> < id nullFlavor="NA" /> <code codeSystem="local" code="ALB" displayName= "Albumin" /> <statusCode code="completed" /> <effectiveTime value="" /> <value unit="g/dL" xsi:type="PQ" value="2.8" / > <interpretationCode codeSystem="local" code="*" /> < referenceRange> <observationRange> <text>3.5-4.8</text> </observationRange> </referenceRange> </observation > </component> <component> <observation moodCode="EVN" classCode="OBS"> <templateId root="10.29.840.1.034267.10.22.4.2" /> <id nullFlavor="NA" /> <code codeSystem="local" code="ALP" displayName="Alkaline Phosphatase" /> <statusCode code="completed" /> <effectiveTime value="456487223153" /> <value unit="U/L" xsi: type="PQ" value="101" /> <referenceRange> <observationRange > <text>26-104</text> </observationRange> </ referenceRange> </observation> </component> <component> <observation moodCode="EVN" classCode="OBS"> <templateId root= "16.840.1.184910.10.20.22.4.2" /> <id nullFlavor="NA" /> < code codeSystem="local" code="ALT" displayName="ALT (SGPT)" /> < statusCode code="completed" /> <effectiveTime value="" /> <value unit="U/L" xsi:type="PQ" value="96" /> < interpretationCode codeSystem="local" code="*" /> <referenceRange> <observationRange> <text>17-63</text> </ observationRange> </referenceRange> </observation> </ component> <component> <observation moodCode="EVN" classCode="OBS"> <templateId root="840.1.591962.10..4.2" /> <id nullFlavor="NA" /> <code codeSystem="local" code="AGAP" displayName= "Anion Gap" /> <statusCode code="completed" /> <effectiveTime value="" /> <value unit="mEq/L" xsi:type="PQ" value="13" / > <referenceRange> <observationRange> <text>3- 20</text> </observationRange> </referenceRange> </ observation> </component> <component> <observation moodCode= "EVN" classCode="OBS"> <templateId root="10.29.840.1.937160.10.20.22.4.2 " /> <id nullFlavor="NA" /> <code codeSystem="local" code="AST " displayName="AST (SGOT)" /> <statusCode code="completed" /> <effectiveTime value="" /> <value unit="U/L" xsi:type="PQ" value="46" /> <interpretationCode codeSystem="local" code="*" /> <referenceRange> <observationRange> <text>15-41</ text> </observationRange> </referenceRange> </ observation> </component> <component> <observation moodCode= "EVN" classCode="OBS"> <templateId root="216.840.1.674481.10.20.22.4.2 " /> <id nullFlavor="NA" /> <code codeSystem="local" code= "BILIT" displayName="Bilirubin Total" /> <statusCode code="completed" / > <effectiveTime value="" /> <value unit="mg/dL" xsi:type="PQ" value="1.5" /> <interpretationCode codeSystem="local" code="*" /> <referenceRange> <observationRange> <text>0.2-1.2</text> </observationRange> </referenceRange > </observation> </component> <component> <observation moodCode="EVN" classCode="OBS"> <templateId root= "216.840.1.084228.10.20.22.4.2" /> <id nullFlavor="NA" /> < code codeSystem="local" code="BUN" displayName="BUN" /> <statusCode code="completed" /> <effectiveTime value="" /> < value unit="mg/dL" xsi:type="PQ" value="18" /> <referenceRange> <observationRange> <text>4-20</text> </ observationRange> </referenceRange> </observation> </ component> <component> <observation moodCode="EVN" classCode="OBS"> <templateId root="10.29.840.1.655782.10.20.22.4.2" /> <id nullFlavor="NA" /> <code codeSystem="local" code="CA" displayName= "Calcium" /> <statusCode code="completed" /> <effectiveTime value="" /> <value unit="mg/dL" xsi:type="PQ" value="8.5" / > <interpretationCode codeSystem="local" code="*" /> < referenceRange> <observationRange> <text>8.6-10.0</text > </observationRange> </referenceRange> </observation > </component> <component> <observation moodCode="EVN" classCode="OBS"> <templateId root="10.29.840.1.249614.10..22.4.2" /> <id nullFlavor="NA" /> <code codeSystem="local" code="CL" displayName="Chloride" /> <statusCode code="completed" /> < effectiveTime value="" /> <value unit="mEq/L" xsi:type="PQ " value="98" /> <interpretationCode codeSystem="local" code="*" /> <referenceRange> <observationRange> <text>99-109</ text> </observationRange> </referenceRange> </ observation> </component> <component> <observation moodCode= "EVN" classCode="OBS"> <templateId root="10.29.840.1.464853.10.20.22.4.2 " /> <id nullFlavor="NA" /> <code codeSystem="local" code="CO2 " displayName="CO2" /> <statusCode code="completed" /> < effectiveTime value="" /> <value unit="mEq/L" xsi:type="PQ " value="23" /> <referenceRange> <observationRange> <text>22-32</text> </observationRange> </ referenceRange> </observation> </component> <component> <observation moodCode="EVN" classCode="OBS"> <templateId root= "16.840.1.425139.10.22.4.2" /> <id nullFlavor="NA" /> < code codeSystem="local" code="CREAT" displayName="Creatinine" /> < statusCode code="completed" /> <effectiveTime value="" /> <value unit="mg/dL" xsi:type="PQ" value="1.23" /> < referenceRange> <observationRange> <text>0.64-1.27</text > </observationRange> </referenceRange> </observation > </component> <component> <observation moodCode="EVN" classCode="OBS"> <templateId root="10.29.840.1.715518.10.4.2" /> <id nullFlavor="NA" /> <code codeSystem="local" code="GLOB" displayName="Globulin" /> <statusCode code="completed" /> < effectiveTime value="" /> <value unit="g/dL" xsi:type="PQ" value="3.3" /> <referenceRange> <observationRange> <text>1.9-4.3</text> </observationRange> </ referenceRange> </observation> </component> <component> <observation moodCode="EVN" classCode="OBS"> <templateId root= "10.29.840.1.173518.1022.4.2" /> <id nullFlavor="NA" /> < code codeSystem="local" code="GLU" displayName="Glucose" /> < statusCode code="completed" /> <effectiveTime value="" /> <value unit="mg/dL" xsi:type="PQ" value="174" /> < interpretationCode codeSystem="local" code="*" /> <referenceRange> <observationRange> <text>70-100</text> </ observationRange> </referenceRange> </observation> </ component> <component> <observation moodCode="EVN" classCode="OBS"> <templateId root="10.29.840.1.451978.22.4.2" /> <id nullFlavor="NA" /> <code codeSystem="local" code="K" displayName= "Potassium" /> <statusCode code="completed" /> <effectiveTime value="" /> <value unit="mEq/L" xsi:type="PQ" value="3.7" / > <referenceRange> <observationRange> <text>3.6 -5.1</text> </observationRange> </referenceRange> </ observation> </component> <component> <observation moodCode= "EVN" classCode="OBS"> <templateId root="840.1.808169.07.02.22.4.2 " /> <id nullFlavor="NA" /> <code codeSystem="local" code="TP " displayName="Protein" /> <statusCode code="completed" /> < effectiveTime value="" /> <value unit="g/dL" xsi:type="PQ" value="6.1" /> <referenceRange> <observationRange> <text>6.1-7.9</text> </observationRange> </ referenceRange> </observation> </component> <component> <observation moodCode="EVN" classCode="OBS"> <templateId root= "10.29.840.1.691664.22.4.2" /> <id nullFlavor="NA" /> < code codeSystem="local" code="NA" displayName="Sodium" /> <statusCode code="completed" /> <effectiveTime value="" /> < value unit="mEq/L" xsi:type="PQ" value="134" /> <interpretationCode codeSystem="local" code="*" /> <referenceRange> < observationRange> <text>136-144</text> </ observationRange> </referenceRange> </observation> </ component> </organizer> </entry> <entry> <organizer moodCode="EVN" classCode="BATTERY"> <templateId root="216.840.1.480742.10..22.4.1" /> <id nullFlavor="NA" /> <code codeSystem="local" code="GFR" displayName ="eGFR" /> <statusCode code="completed" /> <component> < observation moodCode="EVN" classCode="OBS"> <templateId root= "16.840.1.287656.10..22.4.2" /> <id nullFlavor="NA" /> < code codeSystem="local" code="GFR" displayName="eGFR" /> <statusCode code="completed" /> <effectiveTime value="185481482471" /> < value unit="mL/min" xsi:type="PQ" value=">60" /> <referenceRange> <observationRange> <text>>60</text> </ observationRange> </referenceRange> </observation> </ component> </organizer> </entry> <entry> <organizer moodCode="EVN" classCode="BATTERY"> <templateId root="16.840.1.273089.10..22.4.1" /> <id nullFlavor="NA" /> <code codeSystem="local" code="CBCWD" displayName="CBC With Platelet and Differential" /> <statusCode code= "completed" /> <component> <observation moodCode="EVN" classCode= "OBS"> <templateId root="840.1.962146.10.2022.4.2" /> < id nullFlavor="NA" /> <code codeSystem="local" code="HCT" displayName= "HCT" /> <statusCode code="completed" /> <effectiveTime value= "" /> <value unit="%" xsi:type="PQ" value="35.9" /> <interpretationCode codeSystem="local" code="*" /> < referenceRange> <observationRange> <text>42.0-52.0</text > </observationRange> </referenceRange> </observation > </component> <component> <observation moodCode="EVN" classCode="OBS"> <templateId root="840.1.347089.10.22.4.2" /> <id nullFlavor="NA" /> <code codeSystem="local" code="HGB" displayName="HGB" /> <statusCode code="completed" /> < effectiveTime value="201026632675" /> <value unit="g/dL" xsi:type="PQ" value="11.8" /> <interpretationCode codeSystem="local" code="*" /> <referenceRange> <observationRange> <text>14.0- 18.0</text> </observationRange> </referenceRange> </ observation> </component> <component> <observation moodCode= "EVN" classCode="OBS"> <templateId root="10.29.840.1.905119.10.2022.4.2 " /> <id nullFlavor="NA" /> <code codeSystem="local" code="MCH " displayName="MCH" /> <statusCode code="completed" /> < effectiveTime value="" /> <value unit="pg" xsi:type="PQ" value="29.4" /> <referenceRange> <observationRange> <text>27.0-32.0</text> </observationRange> </ referenceRange> </observation> </component> <component> <observation moodCode="EVN" classCode="OBS"> <templateId root= "216.840.1.557878.10..4.2" /> <id nullFlavor="NA" /> < code codeSystem="local" code="MCHC" displayName="MCHC" /> <statusCode code="completed" /> <effectiveTime value="" /> < value unit="g/dL" xsi:type="PQ" value="32.9" /> <referenceRange> <observationRange> <text>32.0-36.0</text> </ observationRange> </referenceRange> </observation> </ component> <component> <observation moodCode="EVN" classCode="OBS"> <templateId root="10.29.840.1.991429.07.02.22.4.2" /> <id nullFlavor="NA" /> <code codeSystem="local" code="MCV" displayName="MCV " /> <statusCode code="completed" /> <effectiveTime value= "" /> <value unit="fL" xsi:type="PQ" value="89.5" /> <referenceRange> <observationRange> <text>82.0-99.0< /text> </observationRange> </referenceRange> </ observation> </component> <component> <observation moodCode= "EVN" classCode="OBS"> <templateId root="10.29.840.1.476799.07.02.22.4.2 " /> <id nullFlavor="NA" /> <code codeSystem="local" code="MPV " displayName="MPV" /> <statusCode code="completed" /> < effectiveTime value="[id number]" /> <value unit="fL" xsi:type="PQ" value="10.3" /> <referenceRange> <observationRange> <text>9.4-12.3</text> </observationRange> </ referenceRange> </observation> </component> <component> <observation moodCode="EVN" classCode="OBS"> <templateId root= "216.840.1.777133.07.02.22.4.2" /> <id nullFlavor="NA" /> < code codeSystem="local" code="PLT" displayName="Platelet Count" /> < statusCode code="completed" /> <effectiveTime value="" /> <value unit="K/uL" xsi:type="PQ" value="171" /> < referenceRange> <observationRange> <text>150-400</text> </observationRange> </referenceRange> </observation > </component> <component> <observation moodCode="EVN" classCode="OBS"> <templateId root="216.840.1.370833.07.02.22.4.2" /> <id nullFlavor="NA" /> <code codeSystem="local" code="RBC" displayName="RBC" /> <statusCode code="completed" /> < effectiveTime value="[id number]" /> <value unit="10*6/uL" xsi:type= "PQ" value="4.01" /> <interpretationCode codeSystem="local" code="*" / > <referenceRange> <observationRange> <text> 4.60-6.20</text> </observationRange> </referenceRange> </observation> </component> <component> <observation moodCode="EVN" classCode="OBS"> <templateId root= "216.840.1.052139.10..22.4.2" /> <id nullFlavor="NA" /> < code codeSystem="local" code="RDW" displayName="RDW" /> <statusCode code="completed" /> <effectiveTime value="" /> < value unit="%" xsi:type="PQ" value="16.8" /> <interpretationCode codeSystem="local" code="*" /> <referenceRange> < observationRange> <text>11.5-14.5</text> </ observationRange> </referenceRange> </observation> </ component> <component> <observation moodCode="EVN" classCode="OBS"> <templateId root="16.840.1.739233.07.02.22.4.2" /> <id nullFlavor="NA" /> <code codeSystem="local" code="WBCIR" displayName= "WBC" /> <statusCode code="completed" /> <effectiveTime value= "" /> <value unit="K/uL" xsi:type="PQ" value="6.9" /> <referenceRange> <observationRange> <text>4.8-10.8< /text> </observationRange> </referenceRange> </ observation> </component> </organizer> </entry> <entry> <organizer moodCode="EVN" classCode="BATTERY"> <templateId root= "216.840.1.592072.10.2022.4.1" /> <id nullFlavor="NA" /> <code codeSystem="local" code="BNP" displayName="B-Type Natriuretic Peptide" /> < statusCode code="completed" /> <component> <observation moodCode= "EVN" classCode="OBS"> <templateId root="2.16.840.1.828307.10..22.4.2 " /> <id nullFlavor="NA" /> <code codeSystem="local" code="BNP " displayName="B-Type Natriuretic Peptide" /> <statusCode code= "completed" /> <effectiveTime value="042445998303" /> <value unit="pg/mL" xsi:type="PQ" value="1729" /> <interpretationCode codeSystem="local" code="*" /> <referenceRange> < observationRange> <text>0-99</text> </observationRange> </referenceRange> </observation> </component> </ organizer> </entry> <entry> <organizer moodCode="EVN" classCode="BATTERY"> <templateId root="2.16.840.1.423080.10..22.4.1" /> <id nullFlavor= "NA" /> <code codeSystem="local" code="ABGRT" displayName="Blood Gases, Arterial (RT)" /> <statusCode code="completed" /> <component> < observation moodCode="EVN" classCode="OBS"> <templateId root= "2.16.840.1.901954.10..22.4.2" /> <id nullFlavor="NA" /> < code codeSystem="local" code="YNES" displayName="Arterial Base Excess" /> <statusCode code="completed" /> <effectiveTime value="182591473982" /> <value unit="NA" xsi:type="PQ" value="-1" /> < interpretationCode codeSystem="local" code="*" /> <referenceRange> <observationRange> <text>0-2</text> </ observationRange> </referenceRange> </observation> </ component> <component> <observation moodCode="EVN" classCode="OBS"> <templateId root="216.840.1.778828.10..22.4.2" /> <id nullFlavor="NA" /> <code codeSystem="local" code="AHCO3" displayName= "Arterial Bicarbonate" /> <statusCode code="completed" /> < effectiveTime value="" /> <value unit="mEq/L" xsi:type="PQ " value="22" /> <referenceRange> <observationRange> <text>22-26</text> </observationRange> </ referenceRange> </observation> </component> <component> <observation moodCode="EVN" classCode="OBS"> <templateId root= "16.840.1.729529.10...4.2" /> <id nullFlavor="NA" /> < code codeSystem="local" code="AOSAT" displayName="Arterial O2 Saturation" /> <statusCode code="completed" /> <effectiveTime value= "" /> <value unit="%" xsi:type="PQ" value="96.9" /> <referenceRange> <observationRange> <text>90.0- 97.0</text> </observationRange> </referenceRange> </ observation> </component> <component> <observation moodCode= "EVN" classCode="OBS"> <templateId root="16.840.1.627886.10..22.4.2 " /> <id nullFlavor="NA" /> <code codeSystem="local" code= "APCO2" displayName="Arterial PCO2" /> <statusCode code="completed" /> <effectiveTime value="" /> <value unit="mmHg" xsi :type="PQ" value="29" /> <interpretationCode codeSystem="local" code="* " /> <referenceRange> <observationRange> <text> 35-45</text> </observationRange> </referenceRange> </ observation> </component> <component> <observation moodCode= "EVN" classCode="OBS"> <templateId root="10.29.840.1.639680.10.20.22.4.2 " /> <id nullFlavor="NA" /> <code codeSystem="local" code="APH " displayName="Arterial PH" /> <statusCode code="completed" /> <effectiveTime value="" /> <value unit="NA" xsi:type="PQ " value="7.48" /> <interpretationCode codeSystem="local" code="*" /> <referenceRange> <observationRange> <text>7.35- 7.45</text> </observationRange> </referenceRange> </ observation> </component> <component> <observation moodCode= "EVN" classCode="OBS"> <templateId root="840.1.982705...4.2 " /> <id nullFlavor="NA" /> <code codeSystem="local" code= "APO2" displayName="Arterial PO2" /> <statusCode code="completed" /> <effectiveTime value="" /> <value unit="mmHg" xsi: type="PQ" value="82" /> <referenceRange> <observationRange> <text>80-100</text> </observationRange> </ referenceRange> </observation> </component> <component> <observation moodCode="EVN" classCode="OBS"> <templateId root= "10.29.840.1.170705.10.20.22.4.2" /> <id nullFlavor="NA" /> < code codeSystem="local" code="AFLOW" displayName="Arterial LPM" /> < statusCode code="completed" /> <effectiveTime value="" /> <value unit="L/min" xsi:type="PQ" value="2.00" /> < referenceRange> <observationRange> <text /> < /observationRange> </referenceRange> </observation> </ component> <component> <observation moodCode="EVN" classCode="OBS"> <templateId root="10.29.840.1.845828.07.02.22.4.2" /> <id nullFlavor="NA" /> <code codeSystem="local" code="AO2PN" displayName= "O2 Panel" /> <statusCode code="completed" /> <effectiveTime value="" /> <value unit="" xsi:type="PQ" value="Nasal Cannula" /> <referenceRange> <observationRange> <text /> </observationRange> </referenceRange> </ observation> </component> </organizer> </entry> <entry> <organizer moodCode="EVN" classCode="BATTERY"> <templateId root= "10.29.840.1.307417.07.02.22.4.1" /> <id nullFlavor="NA" /> <code codeSystem="local" code="UDRGH" displayName="Urine Drug Screen" /> < statusCode code="completed" /> <component> <observation moodCode= "EVN" classCode="OBS"> <templateId root="840.1.610964.10.4.2 " /> <id nullFlavor="NA" /> <code codeSystem="local" code= "UAMP1" displayName="Amph/Meth/Ecstasy" /> <statusCode code="completed " /> <effectiveTime value="" /> <value unit="NA" xsi:type="PQ" value="Negative" /> <referenceRange> < observationRange> <text /> </observationRange> </referenceRange> </observation> </component> <component> <observation moodCode="EVN" classCode="OBS"> <templateId root= "16.840.1.891578.10.22.4.2" /> <id nullFlavor="NA" /> < code codeSystem="local" code="UBAR1" displayName="Barbiturates" /> < statusCode code="completed" /> <effectiveTime value="020578636572" /> <value unit="NA" xsi:type="PQ" value="Negative" /> < referenceRange> <observationRange> <text /> < /observationRange> </referenceRange> </observation> </ component> <component> <observation moodCode="EVN" classCode="OBS"> <templateId root="10.29.840.1.307420.10.4.2" /> <id nullFlavor="NA" /> <code codeSystem="local" code="UBEN1" displayName= "Benzodiazepine" /> <statusCode code="completed" /> < effectiveTime value="043413266319" /> <value unit="NA" xsi:type="PQ" value="Negative" /> <referenceRange> <observationRange> <text /> </observationRange> </referenceRange> </observation> </component> <component> <observation moodCode="EVN" classCode="OBS"> <templateId root= "10.29.840.1.090106.1022.4.2" /> <id nullFlavor="NA" /> < code codeSystem="local" code="UCAN1" displayName="Cannabinoid" /> < statusCode code="completed" /> <effectiveTime value="940553818409" /> <value unit="NA" xsi:type="PQ" value="Negative" /> < referenceRange> <observationRange> <text /> < /observationRange> </referenceRange> </observation> </ component> <component> <observation moodCode="EVN" classCode="OBS"> <templateId root="16.840.1.915804.10..4.2" /> <id nullFlavor="NA" /> <code codeSystem="local" code="UCOC1" displayName= "Cocaine" /> <statusCode code="completed" /> <effectiveTime value="" /> <value unit="NA" xsi:type="PQ" value="Negative " /> <referenceRange> <observationRange> <text /> </observationRange> </referenceRange> </ observation> </component> <component> <observation moodCode= "EVN" classCode="OBS"> <templateId root="10.29.840.1.680641.10.4.2 " /> <id nullFlavor="NA" /> <code codeSystem="local" code= "UMTD1" displayName="EDDP (Methadone met.)" /> <statusCode code= "completed" /> <effectiveTime value="" /> <value unit="NA" xsi:type="PQ" value="Negative" /> <referenceRange> <observationRange> <text /> </observationRange> </referenceRange> </observation> </component> <component> <observation moodCode="EVN" classCode="OBS"> <templateId root= "10.29.840.1.389927.1022.4.2" /> <id nullFlavor="NA" /> < code codeSystem="local" code="UOPI1" displayName="Opiate" /> < statusCode code="completed" /> <effectiveTime value="314299655775" /> <value unit="NA" xsi:type="PQ" value="Negative" /> < referenceRange> <observationRange> <text /> < /observationRange> </referenceRange> </observation> </ component> <component> <observation moodCode="EVN" classCode="OBS"> <templateId root="16.840.1.236032.10..4.2" /> <id nullFlavor="NA" /> <code codeSystem="local" code="UPCP1" displayName= "Phencyclidine (PCP)" /> <statusCode code="completed" /> < effectiveTime value="" /> <value unit="NA" xsi:type="PQ" value="Negative" /> <referenceRange> <observationRange> <text /> </observationRange> </referenceRange> </observation> </component> </organizer> </entry> <entry> < organizer moodCode="EVN" classCode="BATTERY"> <templateId root= "16.840.1.225382.10..4.1" /> <id nullFlavor="NA" /> <code codeSystem="local" code="GLUN" displayName="Glucose NPT" /> <statusCode code="completed" /> <component> <observation moodCode="EVN" classCode="OBS"> <templateId root="10.29.840.1.664315...4.2" /> <id nullFlavor="NA" /> <code codeSystem="local" code="GLUN" displayName="Glucose NPT" /> <statusCode code="completed" /> <effectiveTime value="" /> <value unit="mg/dL" xsi:type="PQ " value="173" /> <interpretationCode codeSystem="local" code="*" /> <referenceRange> <observationRange> <text>70-100< /text> </observationRange> </referenceRange> </ observation> </component> </organizer> </entry> <entry> <organizer moodCode="EVN" classCode="BATTERY"> <templateId root= "16.840.1.421933.10.22.4.1" /> <id nullFlavor="NA" /> <code codeSystem="local" code="GLUN" displayName="Glucose NPT" /> <statusCode code="completed" /> <component> <observation moodCode="EVN" classCode="OBS"> <templateId root="840.1.170767.07.02.22.4.2" /> <id nullFlavor="NA" /> <code codeSystem="local" code="GLUN" displayName="Glucose NPT" /> <statusCode code="completed" /> <effectiveTime value="814256852953" /> <value unit="mg/dL" xsi:type="PQ " value="148" /> <interpretationCode codeSystem="local" code="*" /> <referenceRange> <observationRange> <text>70-100< /text> </observationRange> </referenceRange> </ observation> </component> </organizer> </entry> <entry> <organizer moodCode="EVN" classCode="BATTERY"> <templateId root= "10.29.840.1.424495.07.02.22.4.1" /> <id nullFlavor="NA" /> <code codeSystem="local" code="CBCWD" displayName="CBC With Platelet and Differential " /> <statusCode code="completed" /> <component> <observation moodCode="EVN" classCode="OBS"> <templateId root= "10.29.840.1.661551.22.4.2" /> <id nullFlavor="NA" /> < code codeSystem="local" code="ABASR" displayName="Absolute Basophils" /> <statusCode code="completed" /> <effectiveTime value="" /> <value unit="10*3/uL" xsi:type="PQ" value="0.02" /> < referenceRange> <observationRange> <text>0.00-0.20</text > </observationRange> </referenceRange> </observation > </component> <component> <observation moodCode="EVN" classCode="OBS"> <templateId root="2.16.840.1.839680....4.2" /> <id nullFlavor="NA" /> <code codeSystem="local" code="AEOSR" displayName="Absolute Eosinophils" /> <statusCode code="completed" /> <effectiveTime value="" /> <value unit="10*3/uL" xsi:type="PQ" value="0.00" /> <referenceRange> < observationRange> <text>0.00-0.50</text> </ observationRange> </referenceRange> </observation> </ component> <component> <observation moodCode="EVN" classCode="OBS"> <templateId root="2.16.840.1.943993....4.2" /> <id nullFlavor="NA" /> <code codeSystem="local" code="ALYMR" displayName= "Absolute Lymphocytes" /> <statusCode code="completed" /> < effectiveTime value="" /> <value unit="10*3/uL" xsi:type= "PQ" value="0.82" /> <referenceRange> <observationRange> <text>0.80-3.30</text> </observationRange> </ referenceRange> </observation> </component> <component> <observation moodCode="EVN" classCode="OBS"> <templateId root= "16.840.1.429577.10.22.4.2" /> <id nullFlavor="NA" /> < code codeSystem="local" code="AMONR" displayName="Absolute Monocytes" /> <statusCode code="completed" /> <effectiveTime value="" /> <value unit="10*3/uL" xsi:type="PQ" value="2.22" /> < interpretationCode codeSystem="local" code="*" /> <referenceRange> <observationRange> <text>0.30-1.00</text> </ observationRange> </referenceRange> </observation> </ component> <component> <observation moodCode="EVN" classCode="OBS"> <templateId root="10.29.840.1.838492.07.02.224.2" /> <id nullFlavor="NA" /> <code codeSystem="local" code="ASEGR" displayName= "Absolute Neutrophils" /> <statusCode code="completed" /> < effectiveTime value="" /> <value unit="10*3/uL" xsi:type= "PQ" value="9.23" /> <interpretationCode codeSystem="local" code="*" / > <referenceRange> <observationRange> <text> 1.90-7.00</text> </observationRange> </referenceRange> </observation> </component> <component> <observation moodCode="EVN" classCode="OBS"> <templateId root= "10.29.840.1.775124.1022.4.2" /> <id nullFlavor="NA" /> < code codeSystem="local" code="BASOR" displayName="Basophils" /> < statusCode code="completed" /> <effectiveTime value="" /> <value unit="%" xsi:type="PQ" value="0" /> <referenceRange > <observationRange> <text>0-2</text> </ observationRange> </referenceRange> </observation> </ component> <component> <observation moodCode="EVN" classCode="OBS"> <templateId root="16.840.1.622615.10...4.2" /> <id nullFlavor="NA" /> <code codeSystem="local" code="EOSR" displayName= "Eosinophils" /> <statusCode code="completed" /> < effectiveTime value="" /> <value unit="%" xsi:type="PQ " value="0" /> <referenceRange> <observationRange> <text>0-4</text> </observationRange> </referenceRange> </observation> </component> <component> <observation moodCode="EVN" classCode="OBS"> <templateId root= "16.840.1.819297.10..4.2" /> <id nullFlavor="NA" /> < code codeSystem="local" code="HCT" displayName="HCT" /> <statusCode code="completed" /> <effectiveTime value="" /> < value unit="%" xsi:type="PQ" value="33.5" /> <interpretationCode codeSystem="local" code="*" /> <referenceRange> < observationRange> <text>42.0-52.0</text> </ observationRange> </referenceRange> </observation> </ component> <component> <observation moodCode="EVN" classCode="OBS"> <templateId root="16.840.1.385124.10..22.4.2" /> <id nullFlavor="NA" /> <code codeSystem="local" code="HGB" displayName="HGB " /> <statusCode code="completed" /> <effectiveTime value= "" /> <value unit="g/dL" xsi:type="PQ" value="10.7" /> <interpretationCode codeSystem="local" code="*" /> < referenceRange> <observationRange> <text>14.0-18.0</text > </observationRange> </referenceRange> </observation > </component> <component> <observation moodCode="EVN" classCode="OBS"> <templateId root="2.16.840.1.160319.07.02.22.4.2" /> <id nullFlavor="NA" /> <code codeSystem="local" code="IMGA" displayName="Immature Granulocytes" /> <statusCode code="completed" /> <effectiveTime value="" /> <value unit="%" xsi:type="PQ" value="0.6" /> <referenceRange> < observationRange> <text>0.0-1.0</text> </ observationRange> </referenceRange> </observation> </ component> <component> <observation moodCode="EVN" classCode="OBS"> <templateId root="2.16.840.1.254760.22.4.2" /> <id nullFlavor="NA" /> <code codeSystem="local" code="LYMPR" displayName= "Lymphocytes" /> <statusCode code="completed" /> < effectiveTime value="" /> <value unit="%" xsi:type="PQ " value="7" /> <interpretationCode codeSystem="local" code="*" /> <referenceRange> <observationRange> <text>20-46</ text> </observationRange> </referenceRange> </ observation> </component> <component> <observation moodCode= "EVN" classCode="OBS"> <templateId root="16.840.1.174787.10.22.4.2 " /> <id nullFlavor="NA" /> <code codeSystem="local" code="MCH " displayName="MCH" /> <statusCode code="completed" /> < effectiveTime value="" /> <value unit="pg" xsi:type="PQ" value="29.0" /> <referenceRange> <observationRange> <text>27.0-32.0</text> </observationRange> </ referenceRange> </observation> </component> <component> <observation moodCode="EVN" classCode="OBS"> <templateId root= "10.29.840.1.121528.07.02.224.2" /> <id nullFlavor="NA" /> < code codeSystem="local" code="MCHC" displayName="MCHC" /> <statusCode code="completed" /> <effectiveTime value="" /> < value unit="g/dL" xsi:type="PQ" value="31.9" /> <interpretationCode codeSystem="local" code="*" /> <referenceRange> < observationRange> <text>32.0-36.0</text> </ observationRange> </referenceRange> </observation> </ component> <component> <observation moodCode="EVN" classCode="OBS"> <templateId root="10.29.840.1.430267.1022.4.2" /> <id nullFlavor="NA" /> <code codeSystem="local" code="MCV" displayName="MCV " /> <statusCode code="completed" /> <effectiveTime value= "206290332648" /> <value unit="fL" xsi:type="PQ" value="90.8" /> <referenceRange> <observationRange> <text>82.0-99.0< /text> </observationRange> </referenceRange> </ observation> </component> <component> <observation moodCode= "EVN" classCode="OBS"> <templateId root="16.840.1.427508.10.22.4.2 " /> <id nullFlavor="NA" /> <code codeSystem="local" code= "MONOR" displayName="Monocytes" /> <statusCode code="completed" /> <effectiveTime value="993926080103" /> <value unit="%" xsi: type="PQ" value="18" /> <interpretationCode codeSystem="local" code="* " /> <referenceRange> <observationRange> <text> 4-11</text> </observationRange> </referenceRange> </ observation> </component> <component> <observation moodCode= "EVN" classCode="OBS"> <templateId root="840.1.917280.1022.4.2 " /> <id nullFlavor="NA" /> <code codeSystem="local" code="MPV " displayName="MPV" /> <statusCode code="completed" /> < effectiveTime value="080761261095" /> <value unit="fL" xsi:type="PQ" value="10.1" /> <referenceRange> <observationRange> <text>9.4-12.3</text> </observationRange> </ referenceRange> </observation> </component> <component> <observation moodCode="EVN" classCode="OBS"> <templateId root= "10.29.840.1.293945.10.20.22.4.2" /> <id nullFlavor="NA" /> < code codeSystem="local" code="SEGR" displayName="Neutrophils" /> < statusCode code="completed" /> <effectiveTime value="" /> <value unit="%" xsi:type="PQ" value="75" /> < referenceRange> <observationRange> <text>51-75</text> </observationRange> </referenceRange> </observation> </component> <component> <observation moodCode="EVN" classCode= "OBS"> <templateId root="16.840.1.022395.10..4.2" /> < id nullFlavor="NA" /> <code codeSystem="local" code="NRBCA" displayName ="Nucleated RBC Automated" /> <statusCode code="completed" /> <effectiveTime value="" /> <value unit="/100WBC" xsi:type= "PQ" value="0.0" /> <referenceRange> <observationRange> <text /> </observationRange> </referenceRange> </observation> </component> <component> <observation moodCode="EVN" classCode="OBS"> <templateId root= "16.840.1.872026.22.4.2" /> <id nullFlavor="NA" /> < code codeSystem="local" code="PLT" displayName="Platelet Count" /> < statusCode code="completed" /> <effectiveTime value="" /> <value unit="K/uL" xsi:type="PQ" value="214" /> < referenceRange> <observationRange> <text>150-400</text> </observationRange> </referenceRange> </observation > </component> <component> <observation moodCode="EVN" classCode="OBS"> <templateId root="10.29.840.1.178237.10.20.22.4.2" /> <id nullFlavor="NA" /> <code codeSystem="local" code="RBC" displayName="RBC" /> <statusCode code="completed" /> < effectiveTime value="232765878566" /> <value unit="10*6/uL" xsi:type= "PQ" value="3.69" /> <interpretationCode codeSystem="local" code="*" / > <referenceRange> <observationRange> <text> 4.60-6.20</text> </observationRange> </referenceRange> </observation> </component> <component> <observation moodCode="EVN" classCode="OBS"> <templateId root= "10.29.840.1.902123.1022.4.2" /> <id nullFlavor="NA" /> < code codeSystem="local" code="RDW" displayName="RDW" /> <statusCode code="completed" /> <effectiveTime value="" /> < value unit="%" xsi:type="PQ" value="17.2" /> <interpretationCode codeSystem="local" code="*" /> <referenceRange> < observationRange> <text>11.5-14.5</text> </ observationRange> </referenceRange> </observation> </ component> <component> <observation moodCode="EVN" classCode="OBS"> <templateId root="10.29.840.1.974500.10.2022.4.2" /> <id nullFlavor="NA" /> <code codeSystem="local" code="WBCIR" displayName= "WBC" /> <statusCode code="completed" /> <effectiveTime value= "815410154609" /> <value unit="K/uL" xsi:type="PQ" value="12.4" /> <interpretationCode codeSystem="local" code="*" /> < referenceRange> <observationRange> <text>4.8-10.8</text > </observationRange> </referenceRange> </observation > </component> </organizer> </entry> <entry> <organizer moodCode= "EVN" classCode="BATTERY"> <templateId root="16.840.1.717208.10...4.1 " /> <id nullFlavor="NA" /> <code codeSystem="local" code="CMP" displayName="Comprehensive Metabolic Panel (CMP)" /> <statusCode code= "completed" /> <component> <observation moodCode="EVN" classCode= "OBS"> <templateId root="10.29.840.1.497448.10..4.2" /> < id nullFlavor="NA" /> <code codeSystem="local" code="ALB" displayName= "Albumin" /> <statusCode code="completed" /> <effectiveTime value="580400847720" /> <value unit="g/dL" xsi:type="PQ" value="2.6" / > <interpretationCode codeSystem="local" code="*" /> < referenceRange> <observationRange> <text>3.5-4.8</text> </observationRange> </referenceRange> </observation > </component> <component> <observation moodCode="EVN" classCode="OBS"> <templateId root="10.29.840.1.116534.10..4.2" /> <id nullFlavor="NA" /> <code codeSystem="local" code="ALP" displayName="Alkaline Phosphatase" /> <statusCode code="completed" /> <effectiveTime value="976879008398" /> <value unit="U/L" xsi: type="PQ" value="104" /> <referenceRange> <observationRange > <text>26-104</text> </observationRange> </ referenceRange> </observation> </component> <component> <observation moodCode="EVN" classCode="OBS"> <templateId root= "10.29.840.1.023734.10..22.4.2" /> <id nullFlavor="NA" /> < code codeSystem="local" code="ALT" displayName="ALT (SGPT)" /> < statusCode code="completed" /> <effectiveTime value="041215151380" /> <value unit="U/L" xsi:type="PQ" value="79" /> < interpretationCode codeSystem="local" code="*" /> <referenceRange> <observationRange> <text>17-63</text> </ observationRange> </referenceRange> </observation> </ component> <component> <observation moodCode="EVN" classCode="OBS"> <templateId root="840.1.970015.10..4.2" /> <id nullFlavor="NA" /> <code codeSystem="local" code="AGAP" displayName= "Anion Gap" /> <statusCode code="completed" /> <effectiveTime value="654592167436" /> <value unit="mEq/L" xsi:type="PQ" value="12" / > <referenceRange> <observationRange> <text>3- 20</text> </observationRange> </referenceRange> </ observation> </component> <component> <observation moodCode= "EVN" classCode="OBS"> <templateId root="10.29.840.1.421317.10..22.4.2 " /> <id nullFlavor="NA" /> <code codeSystem="local" code="AST " displayName="AST (SGOT)" /> <statusCode code="completed" /> <effectiveTime value="164411583974" /> <value unit="U/L" xsi:type="PQ" value="35" /> <referenceRange> <observationRange> <text>15-41</text> </observationRange> </referenceRange > </observation> </component> <component> <observation moodCode="EVN" classCode="OBS"> <templateId root= "216.840.1.969251.1022.4.2" /> <id nullFlavor="NA" /> < code codeSystem="local" code="BILIT" displayName="Bilirubin Total" /> < statusCode code="completed" /> <effectiveTime value="702736484706" /> <value unit="mg/dL" xsi:type="PQ" value="1.3" /> < interpretationCode codeSystem="local" code="*" /> <referenceRange> <observationRange> <text>0.2-1.2</text> </ observationRange> </referenceRange> </observation> </ component> <component> <observation moodCode="EVN" classCode="OBS"> <templateId root="216.840.1.458002.10..22.4.2" /> <id nullFlavor="NA" /> <code codeSystem="local" code="BUN" displayName="BUN " /> <statusCode code="completed" /> <effectiveTime value= "572821228371" /> <value unit="mg/dL" xsi:type="PQ" value="25" /> <interpretationCode codeSystem="local" code="*" /> <referenceRange > <observationRange> <text>4-20</text> </ observationRange> </referenceRange> </observation> </ component> <component> <observation moodCode="EVN" classCode="OBS"> <templateId root="2.16.840.1.500761.10..22.4.2" /> <id nullFlavor="NA" /> <code codeSystem="local" code="CA" displayName= "Calcium" /> <statusCode code="completed" /> <effectiveTime value="400958887716" /> <value unit="mg/dL" xsi:type="PQ" value="8.4" / > <interpretationCode codeSystem="local" code="*" /> < referenceRange> <observationRange> <text>8.6-10.0</text > </observationRange> </referenceRange> </observation > </component> <component> <observation moodCode="EVN" classCode="OBS"> <templateId root="10.29.840.1.359795...4.2" /> <id nullFlavor="NA" /> <code codeSystem="local" code="CL" displayName="Chloride" /> <statusCode code="completed" /> < effectiveTime value="467316585826" /> <value unit="mEq/L" xsi:type="PQ " value="100" /> <referenceRange> <observationRange> <text>99-109</text> </observationRange> </ referenceRange> </observation> </component> <component> <observation moodCode="EVN" classCode="OBS"> <templateId root= "10.29.840.1.382758.10.20.22.4.2" /> <id nullFlavor="NA" /> < code codeSystem="local" code="CO2" displayName="CO2" /> <statusCode code="completed" /> <effectiveTime value="766209071830" /> < value unit="mEq/L" xsi:type="PQ" value="23" /> <referenceRange> <observationRange> <text>22-32</text> </ observationRange> </referenceRange> </observation> </ component> <component> <observation moodCode="EVN" classCode="OBS"> <templateId root="2.16.840.1.200647.10..4.2" /> <id nullFlavor="NA" /> <code codeSystem="local" code="CREAT" displayName= "Creatinine" /> <statusCode code="completed" /> < effectiveTime value="577088000156" /> <value unit="mg/dL" xsi:type="PQ " value="1.14" /> <referenceRange> <observationRange> <text>0.64-1.27</text> </observationRange> </ referenceRange> </observation> </component> <component> <observation moodCode="EVN" classCode="OBS"> <templateId root= "10.29.840.1.754758.07.02.22.4.2" /> <id nullFlavor="NA" /> < code codeSystem="local" code="GLOB" displayName="Globulin" /> < statusCode code="completed" /> <effectiveTime value="607192169726" /> <value unit="g/dL" xsi:type="PQ" value="3.2" /> < referenceRange> <observationRange> <text>1.9-4.3</text> </observationRange> </referenceRange> </observation > </component> <component> <observation moodCode="EVN" classCode="OBS"> <templateId root="16.840.1.138092.10...4.2" /> <id nullFlavor="NA" /> <code codeSystem="local" code="GLU" displayName="Glucose" /> <statusCode code="completed" /> < effectiveTime value="900902461175" /> <value unit="mg/dL" xsi:type="PQ " value="144" /> <interpretationCode codeSystem="local" code="*" /> <referenceRange> <observationRange> <text>70-100< /text> </observationRange> </referenceRange> </ observation> </component> <component> <observation moodCode= "EVN" classCode="OBS"> <templateId root="10.29.840.1.844404.22.4.2 " /> <id nullFlavor="NA" /> <code codeSystem="local" code="K" displayName="Potassium" /> <statusCode code="completed" /> < effectiveTime value="270027637379" /> <value unit="mEq/L" xsi:type="PQ " value="4.4" /> <referenceRange> <observationRange> <text>3.6-5.1</text> </observationRange> </ referenceRange> </observation> </component> <component> <observation moodCode="EVN" classCode="OBS"> <templateId root= "10.29.840.1.777062.07.02.22.4.2" /> <id nullFlavor="NA" /> < code codeSystem="local" code="TP" displayName="Protein" /> <statusCode code="completed" /> <effectiveTime value="911304265090" /> < value unit="g/dL" xsi:type="PQ" value="5.8" /> <interpretationCode codeSystem="local" code="*" /> <referenceRange> < observationRange> <text>6.1-7.9</text> </ observationRange> </referenceRange> </observation> </ component> <component> <observation moodCode="EVN" classCode="OBS"> <templateId root="10.29.840.1.518667.22.4.2" /> <id nullFlavor="NA" /> <code codeSystem="local" code="NA" displayName= "Sodium" /> <statusCode code="completed" /> <effectiveTime value="058484903704" /> <value unit="mEq/L" xsi:type="PQ" value="135" / > <interpretationCode codeSystem="local" code="*" /> < referenceRange> <observationRange> <text>136-144</text> </observationRange> </referenceRange> </observation > </component> </organizer> </entry> <entry> <organizer moodCode= "EVN" classCode="BATTERY"> <templateId root="216.840.1.493415.10..22.4.1 " /> <id nullFlavor="NA" /> <code codeSystem="local" code="MG" displayName="Magnesium" /> <statusCode code="completed" /> <component > <observation moodCode="EVN" classCode="OBS"> <templateId root= "216.840.1.318942.10..22.4.2" /> <id nullFlavor="NA" /> < code codeSystem="local" code="MG" displayName="Magnesium" /> < statusCode code="completed" /> <effectiveTime value="341622388707" /> <value unit="mg/dL" xsi:type="PQ" value="1.8" /> < referenceRange> <observationRange> <text>1.8-2.5</text> </observationRange> </referenceRange> </observation > </component> </organizer> </entry> <entry> <organizer moodCode= "EVN" classCode="BATTERY"> <templateId root="16.840.1.577218.10..22.4.1 " /> <id nullFlavor="NA" /> <code codeSystem="local" code="PHOS" displayName="Phosphorus" /> <statusCode code="completed" /> <component > <observation moodCode="EVN" classCode="OBS"> <templateId root= "216.840.1.147633.10..22.4.2" /> <id nullFlavor="NA" /> < code codeSystem="local" code="PHOS" displayName="Phosphorus" /> < statusCode code="completed" /> <effectiveTime value="379540126169" /> <value unit="mg/dL" xsi:type="PQ" value="4.1" /> < referenceRange> <observationRange> <text>2.4-4.7</text> </observationRange> </referenceRange> </observation > </component> </organizer> </entry> <entry> <organizer moodCode= "EVN" classCode="BATTERY"> <templateId root="16.840.1.062672.10..22.4.1 " /> <id nullFlavor="NA" /> <code codeSystem="local" code="GFR" displayName="eGFR" /> <statusCode code="completed" /> <component> <observation moodCode="EVN" classCode="OBS"> <templateId root= "16.840.1.366773.10..22.4.2" /> <id nullFlavor="NA" /> < code codeSystem="local" code="GFR" displayName="eGFR" /> <statusCode code="completed" /> <effectiveTime value="279288283910" /> < value unit="mL/min" xsi:type="PQ" value=">60" /> <referenceRange> <observationRange> <text>>60</text> </ observationRange> </referenceRange> </observation> </ component> </organizer> </entry> <entry> <organizer moodCode="EVN" classCode="BATTERY"> <templateId root="840.1.987364.07.02.22.4.1" /> <id nullFlavor="NA" /> <code codeSystem="local" code="GLUN" displayName="Glucose NPT" /> <statusCode code="completed" /> < component> <observation moodCode="EVN" classCode="OBS"> < templateId root="840.1.328187.07.02.22.4.2" /> <id nullFlavor="NA " /> <code codeSystem="local" code="GLUN" displayName="Glucose NPT" / > <statusCode code="completed" /> <effectiveTime value= "580820678286" /> <value unit="mg/dL" xsi:type="PQ" value="157" /> <interpretationCode codeSystem="local" code="*" /> < referenceRange> <observationRange> <text>70-100</text> </observationRange> </referenceRange> </observation> </component> </organizer> </entry> <entry> <organizer moodCode= "EVN" classCode="BATTERY"> <templateId root="840.1.475307.07.02.22.4.1 " /> <id nullFlavor="NA" /> <code codeSystem="local" code="GLUN" displayName="Glucose NPT" /> <statusCode code="completed" /> < component> <observation moodCode="EVN" classCode="OBS"> < templateId root="840.1.979073.07.02.22.4.2" /> <id nullFlavor="NA " /> <code codeSystem="local" code="GLUN" displayName="Glucose NPT" / > <statusCode code="completed" /> <effectiveTime value= "460350977264" /> <value unit="mg/dL" xsi:type="PQ" value="152" /> <interpretationCode codeSystem="local" code="*" /> < referenceRange> <observationRange> <text>70-100</text> </observationRange> </referenceRange> </observation> </component> </organizer> </entry> <entry> <organizer moodCode= "EVN" classCode="BATTERY"> <templateId root="16.840.1.448131.10..22.4.1 " /> <id nullFlavor="NA" /> <code codeSystem="local" code="GLUN" displayName="Glucose NPT" /> <statusCode code="completed" /> < component> <observation moodCode="EVN" classCode="OBS"> < templateId root="10.29.840.1.865436.10..22.4.2" /> <id nullFlavor="NA " /> <code codeSystem="local" code="GLUN" displayName="Glucose NPT" / > <statusCode code="completed" /> <effectiveTime value= "336573115843" /> <value unit="mg/dL" xsi:type="PQ" value="155" /> <interpretationCode codeSystem="local" code="*" /> < referenceRange> <observationRange> <text>70-100</text> </observationRange> </referenceRange> </observation> </component> </organizer> </entry> <entry> <organizer moodCode= "EVN" classCode="BATTERY"> <templateId root="10.29.840.1.777163.10..22.4.1 " /> <id nullFlavor="NA" /> <code codeSystem="local" code="GLUN" displayName="Glucose NPT" /> <statusCode code="completed" /> < component> <observation moodCode="EVN" classCode="OBS"> < templateId root="216.840.1.898377.10..22.4.2" /> <id nullFlavor="NA " /> <code codeSystem="local" code="GLUN" displayName="Glucose NPT" / > <statusCode code="completed" /> <effectiveTime value= "982344037301" /> <value unit="mg/dL" xsi:type="PQ" value="112" /> <interpretationCode codeSystem="local" code="*" /> < referenceRange> <observationRange> <text>70-100</text> </observationRange> </referenceRange> </observation> </component> </organizer> </entry> <entry> <organizer moodCode= "EVN" classCode="BATTERY"> <templateId root="216.840.1.393931.10..22.4.1 " /> <id nullFlavor="NA" /> <code codeSystem="local" code="CBCND" displayName="CBC With Platelet No Differential" /> <statusCode code= "completed" /> <component> <observation moodCode="EVN" classCode= "OBS"> <templateId root="2.16.840.1.044987.10..22.4.2" /> < id nullFlavor="NA" /> <code codeSystem="local" code="HCT" displayName= "HCT" /> <statusCode code="completed" /> <effectiveTime value= "183741954774" /> <value unit="%" xsi:type="PQ" value="36.4" /> <interpretationCode codeSystem="local" code="*" /> < referenceRange> <observationRange> <text>42.0-52.0</text > </observationRange> </referenceRange> </observation > </component> <component> <observation moodCode="EVN" classCode="OBS"> <templateId root="2.16.840.1.074248.10...4.2" /> <id nullFlavor="NA" /> <code codeSystem="local" code="HGB" displayName="HGB" /> <statusCode code="completed" /> < effectiveTime value="028354542663" /> <value unit="g/dL" xsi:type="PQ" value="11.6" /> <interpretationCode codeSystem="local" code="*" /> <referenceRange> <observationRange> <text>14.0- 18.0</text> </observationRange> </referenceRange> </ observation> </component> <component> <observation moodCode= "EVN" classCode="OBS"> <templateId root="216.840.1.406814.07.02.224.2 " /> <id nullFlavor="NA" /> <code codeSystem="local" code="MCH " displayName="MCH" /> <statusCode code="completed" /> < effectiveTime value="" /> <value unit="pg" xsi:type="PQ" value="29.1" /> <referenceRange> <observationRange> <text>27.0-32.0</text> </observationRange> </ referenceRange> </observation> </component> <component> <observation moodCode="EVN" classCode="OBS"> <templateId root= "2.16.840.1.125906.10..4.2" /> <id nullFlavor="NA" /> < code codeSystem="local" code="MCHC" displayName="MCHC" /> <statusCode code="completed" /> <effectiveTime value="199455517027" /> < value unit="g/dL" xsi:type="PQ" value="31.9" /> <interpretationCode codeSystem="local" code="*" /> <referenceRange> < observationRange> <text>32.0-36.0</text> </ observationRange> </referenceRange> </observation> </ component> <component> <observation moodCode="EVN" classCode="OBS"> <templateId root="16.840.1.415321.10.2022.4.2" /> <id nullFlavor="NA" /> <code codeSystem="local" code="MCV" displayName="MCV " /> <statusCode code="completed" /> <effectiveTime value= "" /> <value unit="fL" xsi:type="PQ" value="91.2" /> <referenceRange> <observationRange> <text>82.0-99.0< /text> </observationRange> </referenceRange> </ observation> </component> <component> <observation moodCode= "EVN" classCode="OBS"> <templateId root="10.29.840.1.620752.1022.4.2 " /> <id nullFlavor="NA" /> <code codeSystem="local" code="MPV " displayName="MPV" /> <statusCode code="completed" /> < effectiveTime value="" /> <value unit="fL" xsi:type="PQ" value="9.7" /> <referenceRange> <observationRange> <text>9.4-12.3</text> </observationRange> </ referenceRange> </observation> </component> <component> <observation moodCode="EVN" classCode="OBS"> <templateId root= "10.29.840.1.798199.10.2022.4.2" /> <id nullFlavor="NA" /> < code codeSystem="local" code="PLT" displayName="Platelet Count" /> < statusCode code="completed" /> <effectiveTime value="948532924232" /> <value unit="K/uL" xsi:type="PQ" value="218" /> < referenceRange> <observationRange> <text>150-400</text> </observationRange> </referenceRange> </observation > </component> <component> <observation moodCode="EVN" classCode="OBS"> <templateId root="16.840.1.234425.10.20.22.4.2" /> <id nullFlavor="NA" /> <code codeSystem="local" code="RBC" displayName="RBC" /> <statusCode code="completed" /> < effectiveTime value="" /> <value unit="10*6/uL" xsi:type= "PQ" value="3.99" /> <interpretationCode codeSystem="local" code="*" / > <referenceRange> <observationRange> <text> 4.60-6.20</text> </observationRange> </referenceRange> </observation> </component> <component> <observation moodCode="EVN" classCode="OBS"> <templateId root= "16.840.1.173258.10.20.22.4.2" /> <id nullFlavor="NA" /> < code codeSystem="local" code="RDW" displayName="RDW" /> <statusCode code="completed" /> <effectiveTime value="395281728884" /> < value unit="%" xsi:type="PQ" value="17.1" /> <interpretationCode codeSystem="local" code="*" /> <referenceRange> < observationRange> <text>11.5-14.5</text> </ observationRange> </referenceRange> </observation> </ component> <component> <observation moodCode="EVN" classCode="OBS"> <templateId root="216.840.1.196922.10..22.4.2" /> <id nullFlavor="NA" /> <code codeSystem="local" code="WBCIR" displayName= "WBC" /> <statusCode code="completed" /> <effectiveTime value= "" /> <value unit="K/uL" xsi:type="PQ" value="12.8" /> <interpretationCode codeSystem="local" code="*" /> < referenceRange> <observationRange> <text>4.8-10.8</text > </observationRange> </referenceRange> </observation > </component> </organizer> </entry> <entry> <organizer moodCode= "EVN" classCode="BATTERY"> <templateId root="216.840.1.483812.10..22.4.1 " /> <id nullFlavor="NA" /> <code codeSystem="local" code="MG" displayName="Magnesium" /> <statusCode code="completed" /> <component > <observation moodCode="EVN" classCode="OBS"> <templateId root= "216.840.1.859767.10..22.4.2" /> <id nullFlavor="NA" /> < code codeSystem="local" code="MG" displayName="Magnesium" /> < statusCode code="completed" /> <effectiveTime value="272183332593" /> <value unit="mg/dL" xsi:type="PQ" value="1.7" /> < interpretationCode codeSystem="local" code="*" /> <referenceRange> <observationRange> <text>1.8-2.5</text> </ observationRange> </referenceRange> </observation> </ component> </organizer> </entry> <entry> <organizer moodCode="EVN" classCode="BATTERY"> <templateId root="216.840.1.111726.10..22.4.1" /> <id nullFlavor="NA" /> <code codeSystem="local" code="CMP" displayName ="Comprehensive Metabolic Panel (CMP)" /> <statusCode code="completed" /> <component> <observation moodCode="EVN" classCode="OBS"> < templateId root="216.840.1.995547.10...4.2" /> <id nullFlavor="NA " /> <code codeSystem="local" code="ALB" displayName="Albumin" /> <statusCode code="completed" /> <effectiveTime value=" " /> <value unit="g/dL" xsi:type="PQ" value="2.8" /> < interpretationCode codeSystem="local" code="*" /> <referenceRange> <observationRange> <text>3.5-4.8</text> </ observationRange> </referenceRange> </observation> </ component> <component> <observation moodCode="EVN" classCode="OBS"> <templateId root="216.840.1.699296.10...4.2" /> <id nullFlavor="NA" /> <code codeSystem="local" code="ALP" displayName= "Alkaline Phosphatase" /> <statusCode code="completed" /> < effectiveTime value="" /> <value unit="U/L" xsi:type="PQ" value="98" /> <referenceRange> <observationRange> <text>26-104</text> </observationRange> </referenceRange > </observation> </component> <component> <observation moodCode="EVN" classCode="OBS"> <templateId root= "216.840.1.396529.10..22.4.2" /> <id nullFlavor="NA" /> < code codeSystem="local" code="ALT" displayName="ALT (SGPT)" /> < statusCode code="completed" /> <effectiveTime value="" /> <value unit="U/L" xsi:type="PQ" value="71" /> < interpretationCode codeSystem="local" code="*" /> <referenceRange> <observationRange> <text>17-63</text> </ observationRange> </referenceRange> </observation> </ component> <component> <observation moodCode="EVN" classCode="OBS"> <templateId root="10.29.840.1.622978.10..4.2" /> <id nullFlavor="NA" /> <code codeSystem="local" code="AGAP" displayName= "Anion Gap" /> <statusCode code="completed" /> <effectiveTime value="" /> <value unit="mEq/L" xsi:type="PQ" value="7" /> <referenceRange> <observationRange> <text>3-20 </text> </observationRange> </referenceRange> </ observation> </component> <component> <observation moodCode= "EVN" classCode="OBS"> <templateId root="10.29.840.1.403090.10.20.22.4.2 " /> <id nullFlavor="NA" /> <code codeSystem="local" code="AST " displayName="AST (SGOT)" /> <statusCode code="completed" /> <effectiveTime value="" /> <value unit="U/L" xsi:type="PQ" value="32" /> <referenceRange> <observationRange> <text>15-41</text> </observationRange> </referenceRange > </observation> </component> <component> <observation moodCode="EVN" classCode="OBS"> <templateId root= "10.29.840.1.905513.10.20.22.4.2" /> <id nullFlavor="NA" /> < code codeSystem="local" code="BILIT" displayName="Bilirubin Total" /> < statusCode code="completed" /> <effectiveTime value="" /> <value unit="mg/dL" xsi:type="PQ" value="1.3" /> < interpretationCode codeSystem="local" code="*" /> <referenceRange> <observationRange> <text>0.2-1.2</text> </ observationRange> </referenceRange> </observation> </ component> <component> <observation moodCode="EVN" classCode="OBS"> <templateId root="840.1.029621.10.22.4.2" /> <id nullFlavor="NA" /> <code codeSystem="local" code="BUN" displayName="BUN " /> <statusCode code="completed" /> <effectiveTime value= "827942179881" /> <value unit="mg/dL" xsi:type="PQ" value="25" /> <interpretationCode codeSystem="local" code="*" /> <referenceRange > <observationRange> <text>4-20</text> </ observationRange> </referenceRange> </observation> </ component> <component> <observation moodCode="EVN" classCode="OBS"> <templateId root="10.29.840.1.350034.10.20.22.4.2" /> <id nullFlavor="NA" /> <code codeSystem="local" code="CA" displayName= "Calcium" /> <statusCode code="completed" /> <effectiveTime value="" /> <value unit="mg/dL" xsi:type="PQ" value="8.7" / > <referenceRange> <observationRange> <text>8.6 -10.0</text> </observationRange> </referenceRange> </ observation> </component> <component> <observation moodCode= "EVN" classCode="OBS"> <templateId root="16.840.1.135072.10.20.22.4.2 " /> <id nullFlavor="NA" /> <code codeSystem="local" code="CL " displayName="Chloride" /> <statusCode code="completed" /> < effectiveTime value="" /> <value unit="mEq/L" xsi:type="PQ " value="96" /> <interpretationCode codeSystem="local" code="*" /> <referenceRange> <observationRange> <text>99-109</ text> </observationRange> </referenceRange> </ observation> </component> <component> <observation moodCode= "EVN" classCode="OBS"> <templateId root="16.840.1.903511.10.20.22.4.2 " /> <id nullFlavor="NA" /> <code codeSystem="local" code="CO2 " displayName="CO2" /> <statusCode code="completed" /> < effectiveTime value="" /> <value unit="mEq/L" xsi:type="PQ " value="27" /> <referenceRange> <observationRange> <text>22-32</text> </observationRange> </ referenceRange> </observation> </component> <component> <observation moodCode="EVN" classCode="OBS"> <templateId root= "16.840.1.574305.07.02.22.4.2" /> <id nullFlavor="NA" /> < code codeSystem="local" code="CREAT" displayName="Creatinine" /> < statusCode code="completed" /> <effectiveTime value="" /> <value unit="mg/dL" xsi:type="PQ" value="1.01" /> < referenceRange> <observationRange> <text>0.64-1.27</text > </observationRange> </referenceRange> </observation > </component> <component> <observation moodCode="EVN" classCode="OBS"> <templateId root="216.840.1.318700.07.02.22.4.2" /> <id nullFlavor="NA" /> <code codeSystem="local" code="GLOB" displayName="Globulin" /> <statusCode code="completed" /> < effectiveTime value="" /> <value unit="g/dL" xsi:type="PQ" value="3.4" /> <referenceRange> <observationRange> <text>1.9-4.3</text> </observationRange> </ referenceRange> </observation> </component> <component> <observation moodCode="EVN" classCode="OBS"> <templateId root= "16.840.1.664932.07.02.22.4.2" /> <id nullFlavor="NA" /> < code codeSystem="local" code="GLU" displayName="Glucose" /> < statusCode code="completed" /> <effectiveTime value="" /> <value unit="mg/dL" xsi:type="PQ" value="108" /> < interpretationCode codeSystem="local" code="*" /> <referenceRange> <observationRange> <text>70-100</text> </ observationRange> </referenceRange> </observation> </ component> <component> <observation moodCode="EVN" classCode="OBS"> <templateId root="10.29.840.1.478559.1022.4.2" /> <id nullFlavor="NA" /> <code codeSystem="local" code="K" displayName= "Potassium" /> <statusCode code="completed" /> <effectiveTime value="" /> <value unit="mEq/L" xsi:type="PQ" value="4.2" / > <referenceRange> <observationRange> <text>3.6 -5.1</text> </observationRange> </referenceRange> </ observation> </component> <component> <observation moodCode= "EVN" classCode="OBS"> <templateId root="10.29.840.1.860649.22.4.2 " /> <id nullFlavor="NA" /> <code codeSystem="local" code="TP " displayName="Protein" /> <statusCode code="completed" /> < effectiveTime value="" /> <value unit="g/dL" xsi:type="PQ" value="6.2" /> <referenceRange> <observationRange> <text>6.1-7.9</text> </observationRange> </ referenceRange> </observation> </component> <component> <observation moodCode="EVN" classCode="OBS"> <templateId root= "10.29.840.1.937204.10.22.4.2" /> <id nullFlavor="NA" /> < code codeSystem="local" code="NA" displayName="Sodium" /> <statusCode code="completed" /> <effectiveTime value="" /> < value unit="mEq/L" xsi:type="PQ" value="130" /> <interpretationCode codeSystem="local" code="*" /> <referenceRange> < observationRange> <text>136-144</text> </ observationRange> </referenceRange> </observation> </ component> </organizer> </entry> <entry> <organizer moodCode="EVN" classCode="BATTERY"> <templateId root="16.840.1.493821.10..22.4.1" /> <id nullFlavor="NA" /> <code codeSystem="local" code="GFR" displayName ="eGFR" /> <statusCode code="completed" /> <component> < observation moodCode="EVN" classCode="OBS"> <templateId root= "10.29.840.1.336802...4.2" /> <id nullFlavor="NA" /> < code codeSystem="local" code="GFR" displayName="eGFR" /> <statusCode code="completed" /> <effectiveTime value="364683640623" /> < value unit="mL/min" xsi:type="PQ" value=">60" /> <referenceRange> <observationRange> <text>>60</text> </ observationRange> </referenceRange> </observation> </ component> </organizer> </entry> <entry> <organizer moodCode="EVN" classCode="BATTERY"> <templateId root="16.840.1.162376.10.20.22.4.1" /> <id nullFlavor="NA" /> <code codeSystem="local" code="GLUN" displayName="Glucose NPT" /> <statusCode code="completed" /> < component> <observation moodCode="EVN" classCode="OBS"> < templateId root="10.29.840.1.517289.10..4.2" /> <id nullFlavor="NA " /> <code codeSystem="local" code="GLUN" displayName="Glucose NPT" / > <statusCode code="completed" /> <effectiveTime value= "008907332558" /> <value unit="mg/dL" xsi:type="PQ" value="102" /> <interpretationCode codeSystem="local" code="*" /> < referenceRange> <observationRange> <text>70-100</text> </observationRange> </referenceRange> </observation> </component> </organizer> </entry> <entry> <organizer moodCode= "EVN" classCode="BATTERY"> <templateId root="216.840.1.325142.07.02.22.4.1 " /> <id nullFlavor="NA" /> <code codeSystem="local" code="GLUN" displayName="Glucose NPT" /> <statusCode code="completed" /> < component> <observation moodCode="EVN" classCode="OBS"> < templateId root="216.840.1.777611.07.02.22.4.2" /> <id nullFlavor="NA " /> <code codeSystem="local" code="GLUN" displayName="Glucose NPT" / > <statusCode code="completed" /> <effectiveTime value= "431145472366" /> <value unit="mg/dL" xsi:type="PQ" value="135" /> <interpretationCode codeSystem="local" code="*" /> < referenceRange> <observationRange> <text>70-100</text> </observationRange> </referenceRange> </observation> </component> </organizer> </entry> <entry> <organizer moodCode= "EVN" classCode="BATTERY"> <templateId root="216.840.1.383531.07.02.224.1 " /> <id nullFlavor="NA" /> <code codeSystem="local" code="GLUN" displayName="Glucose NPT" /> <statusCode code="completed" /> < component> <observation moodCode="EVN" classCode="OBS"> < templateId root="840.1.591028.07.02.22.4.2" /> <id nullFlavor="NA " /> <code codeSystem="local" code="GLUN" displayName="Glucose NPT" / > <statusCode code="completed" /> <effectiveTime value= "104968562743" /> <value unit="mg/dL" xsi:type="PQ" value="115" /> <interpretationCode codeSystem="local" code="*" /> < referenceRange> <observationRange> <text>70-100</text> </observationRange> </referenceRange> </observation> </component> </organizer> </entry> <entry> <organizer moodCode= "EVN" classCode="BATTERY"> <templateId root="840.1.064903.07.02.224.1 " /> <id nullFlavor="NA" /> <code codeSystem="local" code="MG" displayName="Magnesium" /> <statusCode code="completed" /> <component > <observation moodCode="EVN" classCode="OBS"> <templateId root= "10.29.840.1.292097.07.02.22.4.2" /> <id nullFlavor="NA" /> < code codeSystem="local" code="MG" displayName="Magnesium" /> < statusCode code="completed" /> <effectiveTime value="877693935343" /> <value unit="mg/dL" xsi:type="PQ" value="1.7" /> < interpretationCode codeSystem="local" code="*" /> <referenceRange> <observationRange> <text>1.8-2.5</text> </ observationRange> </referenceRange> </observation> </ component> </organizer> </entry> <entry> <organizer moodCode="EVN" classCode="BATTERY"> <templateId root="16.840.1.011608.10..22.4.1" /> <id nullFlavor="NA" /> <code codeSystem="local" code="RENAL" displayName="Renal Function Panel" /> <statusCode code="completed" /> <component> <observation moodCode="EVN" classCode="OBS"> < templateId root="16.840.1.077863...22.4.2" /> <id nullFlavor="NA " /> <code codeSystem="local" code="ALB" displayName="Albumin" /> <statusCode code="completed" /> <effectiveTime value="803223764298 " /> <value unit="g/dL" xsi:type="PQ" value="2.9" /> < interpretationCode codeSystem="local" code="*" /> <referenceRange> <observationRange> <text>3.5-4.8</text> </ observationRange> </referenceRange> </observation> </ component> <component> <observation moodCode="EVN" classCode="OBS"> <templateId root="10.29.840.1.169766.22.4.2" /> <id nullFlavor="NA" /> <code codeSystem="local" code="AGAP" displayName= "Anion Gap" /> <statusCode code="completed" /> <effectiveTime value="722856912898" /> <value unit="mEq/L" xsi:type="PQ" value="8" /> <referenceRange> <observationRange> <text>3-20 </text> </observationRange> </referenceRange> </ observation> </component> <component> <observation moodCode= "EVN" classCode="OBS"> <templateId root="10.29.840.1.851878.10.22.4.2 " /> <id nullFlavor="NA" /> <code codeSystem="local" code="BUN " displayName="BUN" /> <statusCode code="completed" /> < effectiveTime value="854512774905" /> <value unit="mg/dL" xsi:type="PQ " value="24" /> <interpretationCode codeSystem="local" code="*" /> <referenceRange> <observationRange> <text>4-20</ text> </observationRange> </referenceRange> </ observation> </component> <component> <observation moodCode= "EVN" classCode="OBS"> <templateId root="10.29.840.1.436069.07.02.22.4.2 " /> <id nullFlavor="NA" /> <code codeSystem="local" code="CA " displayName="Calcium" /> <statusCode code="completed" /> < effectiveTime value="548596992021" /> <value unit="mg/dL" xsi:type="PQ " value="8.5" /> <interpretationCode codeSystem="local" code="*" /> <referenceRange> <observationRange> <text>8.6- 10.0</text> </observationRange> </referenceRange> </ observation> </component> <component> <observation moodCode= "EVN" classCode="OBS"> <templateId root="10.29.840.1.062224..22.4.2 " /> <id nullFlavor="NA" /> <code codeSystem="local" code="CL " displayName="Chloride" /> <statusCode code="completed" /> < effectiveTime value="248165452286" /> <value unit="mEq/L" xsi:type="PQ " value="98" /> <interpretationCode codeSystem="local" code="*" /> <referenceRange> <observationRange> <text>99-109</ text> </observationRange> </referenceRange> </ observation> </component> <component> <observation moodCode= "EVN" classCode="OBS"> <templateId root="10.29.840.1.236100.10.22.4.2 " /> <id nullFlavor="NA" /> <code codeSystem="local" code="CO2 " displayName="CO2" /> <statusCode code="completed" /> < effectiveTime value="405703645957" /> <value unit="mEq/L" xsi:type="PQ " value="25" /> <referenceRange> <observationRange> <text>22-32</text> </observationRange> </ referenceRange> </observation> </component> <component> <observation moodCode="EVN" classCode="OBS"> <templateId root= "10.29.840.1.549428.10.22.4.2" /> <id nullFlavor="NA" /> < code codeSystem="local" code="CREAT" displayName="Creatinine" /> < statusCode code="completed" /> <effectiveTime value="772398822133" /> <value unit="mg/dL" xsi:type="PQ" value="0.90" /> < referenceRange> <observationRange> <text>0.64-1.27</text > </observationRange> </referenceRange> </observation > </component> <component> <observation moodCode="EVN" classCode="OBS"> <templateId root="10.29.840.1.831455.07.02.22.4.2" /> <id nullFlavor="NA" /> <code codeSystem="local" code="GLU" displayName="Glucose" /> <statusCode code="completed" /> < effectiveTime value="231334646745" /> <value unit="mg/dL" xsi:type="PQ " value="89" /> <referenceRange> <observationRange> <text>70-100</text> </observationRange> </ referenceRange> </observation> </component> <component> <observation moodCode="EVN" classCode="OBS"> <templateId root= "216.840.1.937512.07.02.22.4.2" /> <id nullFlavor="NA" /> < code codeSystem="local" code="PHOS" displayName="Phosphorus" /> < statusCode code="completed" /> <effectiveTime value="" /> <value unit="mg/dL" xsi:type="PQ" value="3.8" /> < referenceRange> <observationRange> <text>2.4-4.7</text> </observationRange> </referenceRange> </observation > </component> <component> <observation moodCode="EVN" classCode="OBS"> <templateId root="216.840.1.833360.07.02.22.4.2" /> <id nullFlavor="NA" /> <code codeSystem="local" code="K" displayName="Potassium" /> <statusCode code="completed" /> < effectiveTime value="" /> <value unit="mEq/L" xsi:type="PQ " value="4.0" /> <referenceRange> <observationRange> <text>3.6-5.1</text> </observationRange> </ referenceRange> </observation> </component> <component> <observation moodCode="EVN" classCode="OBS"> <templateId root= "16.840.1.751926.10.20.22.4.2" /> <id nullFlavor="NA" /> < code codeSystem="local" code="NA" displayName="Sodium" /> <statusCode code="completed" /> <effectiveTime value="111339868749" /> < value unit="mEq/L" xsi:type="PQ" value="131" /> <interpretationCode codeSystem="local" code="*" /> <referenceRange> < observationRange> <text>136-144</text> </ observationRange> </referenceRange> </observation> </ component> </organizer> </entry> <entry> <organizer moodCode="EVN" classCode="BATTERY"> <templateId root="216.840.1.817581.10..22.4.1" /> <id nullFlavor="NA" /> <code codeSystem="local" code="GFR" displayName ="eGFR" /> <statusCode code="completed" /> <component> < observation moodCode="EVN" classCode="OBS"> <templateId root= "216.840.1.470971.10..22.4.2" /> <id nullFlavor="NA" /> < code codeSystem="local" code="GFR" displayName="eGFR" /> <statusCode code="completed" /> <effectiveTime value="601522423345" /> < value unit="mL/min" xsi:type="PQ" value=">60" /> <referenceRange> <observationRange> <text>>60</text> </ observationRange> </referenceRange> </observation> </ component> </organizer> </entry> <entry> <organizer moodCode="EVN" classCode="BATTERY"> <templateId root="840.1.205244.10..4.1" /> <id nullFlavor="NA" /> <code codeSystem="local" code="CBCND" displayName="CBC With Platelet No Differential" /> <statusCode code= "completed" /> <component> <observation moodCode="EVN" classCode= "OBS"> <templateId root="216.840.1.247716.07.02.22.4.2" /> < id nullFlavor="NA" /> <code codeSystem="local" code="HCT" displayName= "HCT" /> <statusCode code="completed" /> <effectiveTime value= "" /> <value unit="%" xsi:type="PQ" value="36.1" /> <interpretationCode codeSystem="local" code="*" /> < referenceRange> <observationRange> <text>42.0-52.0</text > </observationRange> </referenceRange> </observation > </component> <component> <observation moodCode="EVN" classCode="OBS"> <templateId root="216.840.1.154282.07.02.22.4.2" /> <id nullFlavor="NA" /> <code codeSystem="local" code="HGB" displayName="HGB" /> <statusCode code="completed" /> < effectiveTime value="" /> <value unit="g/dL" xsi:type="PQ" value="11.7" /> <interpretationCode codeSystem="local" code="*" /> <referenceRange> <observationRange> <text>14.0- 18.0</text> </observationRange> </referenceRange> </ observation> </component> <component> <observation moodCode= "EVN" classCode="OBS"> <templateId root="216.840.1.966470.22.4.2 " /> <id nullFlavor="NA" /> <code codeSystem="local" code="MCH " displayName="MCH" /> <statusCode code="completed" /> < effectiveTime value="" /> <value unit="pg" xsi:type="PQ" value="29.5" /> <referenceRange> <observationRange> <text>27.0-32.0</text> </observationRange> </ referenceRange> </observation> </component> <component> <observation moodCode="EVN" classCode="OBS"> <templateId root= "216.840.1.253236.07.02.22.4.2" /> <id nullFlavor="NA" /> < code codeSystem="local" code="MCHC" displayName="MCHC" /> <statusCode code="completed" /> <effectiveTime value="" /> < value unit="g/dL" xsi:type="PQ" value="32.4" /> <referenceRange> <observationRange> <text>32.0-36.0</text> </ observationRange> </referenceRange> </observation> </ component> <component> <observation moodCode="EVN" classCode="OBS"> <templateId root="216.840.1.249335.1022.4.2" /> <id nullFlavor="NA" /> <code codeSystem="local" code="MCV" displayName="MCV " /> <statusCode code="completed" /> <effectiveTime value= "" /> <value unit="fL" xsi:type="PQ" value="90.9" /> <referenceRange> <observationRange> <text>82.0-99.0< /text> </observationRange> </referenceRange> </ observation> </component> <component> <observation moodCode= "EVN" classCode="OBS"> <templateId root="16.840.1.203677.10.22.4.2 " /> <id nullFlavor="NA" /> <code codeSystem="local" code="MPV " displayName="MPV" /> <statusCode code="completed" /> < effectiveTime value="" /> <value unit="fL" xsi:type="PQ" value="9.9" /> <referenceRange> <observationRange> <text>9.4-12.3</text> </observationRange> </ referenceRange> </observation> </component> <component> <observation moodCode="EVN" classCode="OBS"> <templateId root= "10.29.840.1.693998.22.4.2" /> <id nullFlavor="NA" /> < code codeSystem="local" code="PLT" displayName="Platelet Count" /> < statusCode code="completed" /> <effectiveTime value="" /> <value unit="K/uL" xsi:type="PQ" value="229" /> < referenceRange> <observationRange> <text>150-400</text> </observationRange> </referenceRange> </observation > </component> <component> <observation moodCode="EVN" classCode="OBS"> <templateId root="10.29.840.1.938230.10.2022.4.2" /> <id nullFlavor="NA" /> <code codeSystem="local" code="RBC" displayName="RBC" /> <statusCode code="completed" /> < effectiveTime value="" /> <value unit="10*6/uL" xsi:type= "PQ" value="3.97" /> <interpretationCode codeSystem="local" code="*" / > <referenceRange> <observationRange> <text> 4.60-6.20</text> </observationRange> </referenceRange> </observation> </component> <component> <observation moodCode="EVN" classCode="OBS"> <templateId root= "216.840.1.598975.10..22.4.2" /> <id nullFlavor="NA" /> < code codeSystem="local" code="RDW" displayName="RDW" /> <statusCode code="completed" /> <effectiveTime value="183077965935" /> < value unit="%" xsi:type="PQ" value="16.5" /> <interpretationCode codeSystem="local" code="*" /> <referenceRange> < observationRange> <text>11.5-14.5</text> </ observationRange> </referenceRange> </observation> </ component> <component> <observation moodCode="EVN" classCode="OBS"> <templateId root="216.840.1.770846.07.02.22.4.2" /> <id nullFlavor="NA" /> <code codeSystem="local" code="WBCIR" displayName= "WBC" /> <statusCode code="completed" /> <effectiveTime value= "" /> <value unit="K/uL" xsi:type="PQ" value="12.2" /> <interpretationCode codeSystem="local" code="*" /> < referenceRange> <observationRange> <text>4.8-10.8</text > </observationRange> </referenceRange> </observation > </component> </organizer> </entry> <entry> <organizer moodCode= "EVN" classCode="BATTERY"> <templateId root="216.840.1.389303.07.02.22.4.1 " /> <id nullFlavor="NA" /> <code codeSystem="local" code="GLUN" displayName="Glucose NPT" /> <statusCode code="completed" /> < component> <observation moodCode="EVN" classCode="OBS"> < templateId root="840.1.562157.07.02.22.4.2" /> <id nullFlavor="NA " /> <code codeSystem="local" code="GLUN" displayName="Glucose NPT" / > <statusCode code="completed" /> <effectiveTime value= "" /> <value unit="mg/dL" xsi:type="PQ" value="121" /> <interpretationCode codeSystem="local" code="*" /> < referenceRange> <observationRange> <text>70-100</text> </observationRange> </referenceRange> </observation> </component> </organizer> </entry> <entry> <organizer moodCode= "EVN" classCode="BATTERY"> <templateId root="840.1.779415.07.02.22.4.1 " /> <id nullFlavor="NA" /> <code codeSystem="local" code="GLUN" displayName="Glucose NPT" /> <statusCode code="completed" /> < component> <observation moodCode="EVN" classCode="OBS"> < templateId root="840.1.617072.07.02.22.4.2" /> <id nullFlavor="NA " /> <code codeSystem="local" code="GLUN" displayName="Glucose NPT" / > <statusCode code="completed" /> <effectiveTime value= "532940010319" /> <value unit="mg/dL" xsi:type="PQ" value="163" /> <interpretationCode codeSystem="local" code="*" /> < referenceRange> <observationRange> <text>70-100</text> </observationRange> </referenceRange> </observation> </component> </organizer> </entry></section> Encounters ACCT No. Visit Date/Time Discharge Status Pt. Type Provider Facility Loc./Unit Complaint [id number] 01/20/2014 19:08:00 01/20/2014 22:54:00 DIS Emergency Magdy Golden MD [facility] on [place] FERM [id number] 10/25/2017 12:05:00 10/28/2017 17:22:00 DIS Inpatient Muñoz Paul [facility] on [facility] F8SW pneuomina HIV AMS [id number] 10/13/2017 15:46:00 10/22/2017 15:41:00 DIS Inpatient Flores John [facility] on [facility] F8SE acute hypoxic resp failure, copd chf [id number] 07/10/2017 20:12:00 07/12/2017 16:11:00 DIS Outpatient Muñoz Paul [facility] on [facility] F5SW Hypotension [id number] 07/05/2017 16:56:00 07/05/2017 19:20:00 DIS Emergency Lorenzana John [facility] on [facility] ED SOB [id number] 06/11/2017 16:50:00 06/12/2017 10:20:00 DIS Inpatient Ndpride Paul [facility] on [facility] F8SE LLL pneumonia, AMS [id number] 05/27/2017 12:16:00 05/27/2017 20:45:00 DIS Inpatient Akibarger Samuel [facility] on [facility] F3NC HIV, HYPOTENSION , DECOMPENSATED CIRRHOSIS [id number] 05/16/2017 21:25:00 05/18/2017 14:30:00 DIS Outpatient Pedraza Jennifer [facility] on [facility] F6SW H/O Aids, History of Methamphetamine [id number] 05/08/2017 18:49:00 05/11/2017 16:54:00 DIS Inpatient Mathias Samuel [facility] on [facility] F8SW COPD exacerbation HIV AIDS [id number] 05/06/2017 19:10:00 05/07/2017 01:16:00 DIS Emergency Meier Howard [facility] on [facility] ED unable to urinate [id number] 04/08/2017 15:21:00 04/15/2017 17:50:00 DIS Inpatient CorneliusRipna [facility] on [facility] F4SW chest pain [id number] 04/03/2017 08:39:00 04/03/2017 14:09:00 DIS Emergency Meier Howard [facility] on [facility] ED cp [id number] 12/19/2016 16:43:00 12/19/2016 21:20:00 DIS Emergency Guevara Denise [facility] on [facility] ED Abd Pain [id number] 12/14/2016 14:52:00 12/17/2016 13:33:00 DIS Inpatient Flores John [facility] on [facility] F8SW Hyperkalemia, HIV/AIDS [id number] 11/20/2016 16:51:00 11/27/2016 16:06:00 DIS Inpatient Joshi Andrew [facility] VTIR T2E NSTEMI, peripheral neuropathy [id number] 11/19/2016 19:08:00 11/20/2016 16:40:00 DIS Outpatient Joshi Andrew [facility] VCHT T3E SOA [id number] 11/18/2016 21:04:00 11/18/2016 21:59:00 DIS Emergency Chapman Jacob [facility] on [facility] ED assessment via WPD [id number] 11/18/2016 11:01:00 11/18/2016 15:26:00 DIS Emergency Meier Howard [facility] on [facility] ED DIFFICULTY BREATHING [id number] 11/10/2016 10:52:00 11/17/2016 15:57:00 DIS Inpatient Ndundaguilar Paul [facility] on [facility] F4SE EKG abnormalities, dyspnea [id number] 03/14/2016 15:24:00 03/14/2016 16:47:00 DIS Emergency Rosendo Farias [facility] on [facility] ED rash [id number] 05/06/2015 13:21:00 05/06/2015 23:59:00 DIS Outpatient Camron Hodges [facility] on [facility] CT Scan Abdominal Pain, RO Hernia [id number] 04/24/2015 20:23:00 04/24/2015 23:15:00 DIS Emergency Conor Meier MD [facility] on [facility] ED abd pain [id number] 10/29/2017 05:17:25 Document Registration [id number] 10/28/2017 05:17:12 Document Registration [id number] 10/26/2017 05:17:33 Document Registration [id number] 10/23/2017 05:17:26 Document Registration [id number] 10/20/2017 05:18:02 Document Registration [id number] 10/19/2017 05:17:59 Document Registration [id number] 10/18/2017 05:16:06 Document Registration [id number] 10/16/2017 05:17:18 Document Registration [id number] 10/15/2017 05:17:40 Document Registration [id number] 10/14/2017 05:17:58 Document Registration [id number] 07/13/2017 05:17:49 Document Registration [id number] 07/12/2017 07:36:45 Document Registration [id number] 07/11/2017 05:16:01 Document Registration [id number] 06/13/2017 05:15:56 Document Registration [id number] 06/12/2017 05:16:40 Document Registration [id number] 05/28/2017 05:16:16 Document Registration [id number] 05/19/2017 05:17:18 Document Registration [id number] 05/18/2017 05:15:43 Document Registration [id number] 05/17/2017 05:15:37 Document Registration [id number] 05/12/2017 05:16:28 Document Registration [id number] 05/12/2017 05:16:27 Document Registration [id number] 05/11/2017 05:17:05 Document Registration [id number] 05/10/2017 05:16:31 Document Registration [id number] 05/09/2017 05:15:37 Document Registration [id number] 05/07/2017 05:17:07 Document Registration [id number] 04/30/2017 05:16:29 Document Registration [id number] 04/28/2017 05:16:32 Document Registration [id number] 04/27/2017 05:16:53 Document Registration [id number] 04/26/2017 05:15:41 Document Registration [id number] 04/25/2017 05:15:41 Document Registration [id number] 04/25/2017 05:15:40 Document Registration [id number] 04/24/2017 05:16:16 Document Registration [id number] 04/16/2017 05:16:57 Document Registration [id number] 04/15/2017 05:16:26 Document Registration [id number] 04/15/2017 05:16:25 Document Registration [id number] 04/14/2017 05:16:17 Document Registration [id number] 04/13/2017 05:17:44 Document Registration [id number] 04/12/2017 05:15:38 Document Registration [id number] 04/11/2017 05:15:44 Document Registration [id number] 04/10/2017 05:16:56 Document Registration [id number] 04/09/2017 05:17:14 Document Registration [id number] 04/04/2017 05:15:48 Document Registration [id number] 12/20/2016 05:15:32 Document Registration [id number] 12/18/2016 05:16:08 Document Registration [id number] 12/17/2016 05:15:50 Document Registration [id number] 12/16/2016 05:17:28 Document Registration [id number] 12/15/2016 05:16:59 Document Registration [id number] 11/28/2016 05:17:10 Document Registration [id number] 11/25/2016 05:17:21 Document Registration [id number] 11/23/2016 05:15:50 Document Registration [id number] 11/22/2016 05:15:50 Document Registration [id number] 11/21/2016 05:18:00 Document Registration [id number] 11/21/2016 05:17:59 Document Registration [id number] 11/20/2016 05:16:18 Document Registration [id number] 11/19/2016 05:17:02 Document Registration [id number] 11/18/2016 09:16:45 Document Registration [id number] 11/17/2016 05:16:36 Document Registration [id number] 11/16/2016 05:17:52 Document Registration [id number] 11/15/2016 05:15:31 Document Registration [id number] 11/14/2016 05:16:05 Document Registration [id number] 11/13/2016 05:17:23 Document Registration [id number] 11/12/2016 05:16:27 Document Registration [id number] 11/11/2016 05:18:33 Document Registration [id number] 03/15/2016 05:16:23 Document Registration [id number] 07/03/2015 14:24:19 Document Registration [id number] 06/25/2015 08:25:00 Document Registration [id number] 10/12/2017 23:30:00 10/13/2017 10:27:00 DIS Inpatient Herbert Abdul DO [facility] W.9TS [id number] 10/11/2017 17:55:00 10/11/2017 19:55:00 DIS Emergency Soila Mckeon MD [facility].EDS [id number] 06/20/2017 21:06:00 06/23/2017 12:55:00 DIS Inpatient Mynor Michel [facility] [id number] 06/18/2017 16:19:00 06/18/2017 19:25:00 DIS Emergency Karsten Aponte DO [facility].EDS [id number] 05/09/2016 18:19:00 05/09/2016 18:55:00 DIS Emergency Venkat Chaudhary DO [facility] [id number] 04/27/2016 03:02:00 04/27/2016 05:38:00 DIS Emergency Mitch LAST, Debbie Johnson [facility]
[2017-11-13 16:21] LABS: BILIRUBIN,URINE NEGATIVE (NEGATIVE); CLARITY,URINE CLEAR; COLOR,URINE YELLOW; GLUCOSE, URINE (UA) NEGATIVE (NEGATIVE); KETONES,URINE NEGATIVE (NEGATIVE); LEUKOCYTE ESTERASE ,URINE NEGATIVE (NEGATIVE); NITRITE,URINE NEGATIVE (NEGATIVE); PH,URINE 7 (5-9); PROTEIN,URINE 3+ (NEGATIVE); UROBILINOGEN,URINE 4 MG/DL (NORMAL)
[2017-11-13 16:38] LABS: BACTERIA,URINE NEGATIVE /HPF; WBC,URINE RARE /HPF
[2017-11-13 16:41] LABS: ALANINE AMINOTRANSFERASE 70 U/L (0-55); ALBUMIN 3.3 GM/DL (3.2-4.5); ALKALINE PHOSPHATASE 152 U/L (40-136); BILIRUBIN,TOTAL 0.7 MG/DL (0.1-1.0); BUN/CREATININE RATIO 38; CALCIUM 8.3 MG/DL (8.5-10.1); CARBON DIOXIDE 22 MMOL/L (21-32); CHLORIDE 101 MMOL/L (98-107); CREATININE SERUM 0.85 MG/DL (0.60-1.30); GFR ESTIMATED > 60; GLUCOSE 82 MG/DL (70-105); POTASSIUM 4.2 MMOL/L (3.6-5.0); SODIUM 131 MMOL/L (135-145); TOTAL PROTEIN 6.3 GM/DL (6.4-8.2)
== END 2017-11-13 17:48 | disposition left against medical advice (07) ==
LOC: ER 15:51 → EDUNIT# 15:51 → ER 17:48
DX: B20 Human immunodeficiency virus [HIV] disease (principal); J18.1 Lobar pneumonia, unspecified organism; I25.10 Atherosclerotic heart disease of native coronary artery without angina pectoris; I25.2 Old myocardial infarction; I10 Essential (primary) hypertension; J44.9 Chronic obstructive pulmonary disease, unspecified; F12.90 Cannabis use, unspecified, uncomplicated; Z88.6 Allergy status to analgesic agent; Z88.1 Allergy status to other antibiotic agents; Z88.8 Allergy status to other drugs, medicaments and biological substances; Z95.5 Presence of coronary angioplasty implant and graft; Z87.81 Personal history of (healed) traumatic fracture
CPT/HCPCS: 36415; 71045; 80053; 81000; 83605; 85025; 87040; 99283

== ENCOUNTER 2017-11-13 21:00 | Emergency (ER) | payer MEDICAID ==
[~2017-11-13] VITALS: Ht 185.4 cm; Wt 93.4 kg
--- OUTSIDE RECORDS SUMMARY | 2017-11-13 21:28 | XMS REPORT | Continuity of Care Document ---
Author Author [facility] Organization [facility] Address Unknown Phone Unavailable Allergies Active Description Code Type Severity Reaction Onset Reported/Identified Relationship to Patient Clinical Status Yes aspirin aspirin Drug Allergy Mild VOMITING 12/29/2011 Yes aspirin Drug Allergy N/A Adverse Reaction 01/20/2014 Yes aspirin NKMA N/A N /A 04/24/2015 Yes penicillin NKMA N/A [id number] 04/24/2015 Yes PLASTIC PLASTIC Drug Allergy Mild [...] mL 05/0905/10/2017 IV Piggyback 750 mg 750 gq=136 mL, 100 mL/hr, IV Piggyback, Bedtime (once [...] 05/27/2017 05/27/2017 IV Piggyback 750 mg 750 ke=160 mL, 100 mL/hr, IV Piggyback, q24hr omeprazole(omeprazole) [...] 60 mg , Oral, Daily, 0 Refill(s) HYDROcodone-acetaminophen([place] 10 mg-325 mg oral tablet) 1 tabs [...] with other medical treatment and regimen 03/19/2016 Rosenod Farias Final L23.7 Allergic contact dermatitis due to plants, except food 03/19/2016 Rosendo Farias Reason R21 Rash and other nonspecific skin eruption 03/19/2016 Rosendo Farias Final Z21 Asymptomatic human immunodeficiency virus [HIV] infection status 03/19/2016 Rosendo Farias Final Z79.899 Other residential (current) drug therapy 11/10/2016 Muñoz Paul Admitting [...] Odilia Final 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 12/22/2016 Bruey,, [...] Cornelius,Riana Final 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 04/23/2017 Cornelius,Riana [...] Jennifer Final 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 05/24/2017 Pedraza [...] micturition 05/24/2017 Pedraza Jennifer Final Z79.899 Other residential (current) drug therapy 06/01/2017 Mathias Samuel Final B20 Human immunodeficiency virus [HIV] disease 06/01/2017 Akimonicava,Sacha Final F17.210 Nicotine dependence, cigarettes, uncomplicated 06/01/2017 Mey,Sacha Final F32.9 Major depressive disorder, single episode, unspecified 06/01/2017 Stephva,Sacha Final I12.9 Hypertensive chronic kidney disease with stage 1 through stage 4 chronic ki 06/01/2017 Mey,Sacha Final 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 06/01/2017 Mey,Sacha [...] weakness (generalized) 06/15/2017 Ndunda,, Gennaro Final R40.2410 [place] coma scale score 13-15, unspecified time 06/15/2017 [...] S F I25.10 ATHSCL HEART DISEASE OF [place] CORONARY ARTERY W/O 06/20/2017 Mynor Michel S [...] Wanda,Gennaro Final 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 07/14/2017 Wanda,Gennaro [...] Abdul DO I25.10 ATHSCL HEART DISEASE OF [place] CORONARY ARTERY W/O 10/12/2017 Herbert Abdul DO [...] INFRC W/O RESID D 10/12/2017 Abdul DO, Herbert A F Z91.14 PATIENT'S OTHER NONCOMPLIANCE WITH [...] Rick Final 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 10/25/2017 [place],, [...] Procedures Code Description Performed By Performed On 2A5D78B Introduction of Anti- inflammatory into Spinal Canal, Percutaneous Approach 04/15/2017 [id number] Fluoroscopy of Multiple Coronary Arteries using Low Osmolar Contrast 10/18/2017 <section xmlns="urn:hl7-org:v3" xmlns:xsi="http://www.[employer].org/2001/ XMLSchema-instance"> <templateId root="2.16.840.1.887878.10.20.22.2.3" /> < templateId root="2.16.840.1.827243.10.20.22.2.3.1" /> <code codeSystemName= "LOINC" codeSystem="2.16.840.1.827594.6.1" code="33454-7" displayName="Results" /> <title>Results</title> <text> <table> <thead> <tr> [...] <td>Pos 1+ NA</td> <td>Negative</td> </tr> <tr> <td>Specific [place]</ td> <td>1.020 NA</td> <td>1.003-1.030</td> </tr> <tr> <td>UA [...] <td>Protein</td> <td>Negative NA</td> <td>Negative</td> </tr> <tr> <td>Specific [place]</td> <td>1.010 NA </td> <td>1.003-1.030</td> </tr> <tr> <td>UA [...] <td>Protein</td> <td>Negative NA</td> <td>Negative</td> </tr> <tr> <td>Specific [place]</td> <td>1.020 NA</td> <td>1.003-1.030 </td> </tr> <tr> <td>UA [...] <td>Negative NA</td> <td> Negative</td> </tr> <tr> <td>Specific [place]</td> <td>1.015 NA</td> <td>1.003-1.030</td> </tr> <tr> <td>UA Collection [...] 00:42</th> </tr> <tr> <td>RNA HIV 1 QUANTITATIVE</td> <td>723284 /mL</td > <td><20 COPIES</td> </tr> <tr> <td>RNA [...] <td>Pos 2+ NA</td> <td>Negative</td> </tr> <tr> <td>Specific [place]</td> <td>1.020 NA</ td> <td>1.003-1.030</td> </tr> <tr> <td>UA [...] - 10/13/17 02:07</th> </tr> <tr> <td>PERFORMING LAB</td> <td>[facility] </td> <td /> </tr> <tr> <td> [...] 2+ NA</td> <td> Negative</td> </tr> <tr> <td>Specific [place]</td> <td>1.020 NA</td> <td>1.003-1.030</td> </tr> <tr> <td>UA Collection [...] /> </tr> <tr> <td>Hepatitis C viral RNA</td> <td>23525131 IU/mL</td> <td /> </tr> <tr> <th colspan="10">Glucose [...] <td>Pos 1+ NA</td> <td>Negative</td> </tr> <tr> <td>Specific [place]</td> <td>1.010 NA</ td> <td>1.003-1.030</td> </tr> <tr> <td>UA [...] </text> <entry> <organizer moodCode="EVN" classCode="BATTERY"> <templateId root= "10.29.840.1.111166.10..22.4.1" /> <id nullFlavor="NA" /> <code codeSystem="local" code="CBCD" displayName="CBC W/DIFF" /> <statusCode code ="completed" /> <component> <observation moodCode="EVN" classCode= "OBS"> <templateId root="10.29.840.1.695797.10..22.4.2" /> < id nullFlavor="NA" /> <code codeSystem="local" code="CBCCOM" displayName="COMMENT" /> <statusCode code="completed" /> < effectiveTime value="930400074827" /> <value unit="" xsi:type="PQ" value="REVIEWED" /> <referenceRange> <observationRange> <text /> </observationRange> </referenceRange> </observation> </component> <component> <observation moodCode="EVN" classCode="OBS"> <templateId root= "16.840.1.130306.10.20.22.4.2" /> <id nullFlavor="NA" /> < code codeSystem="local" code="EO#" displayName="EOSINOPHIL #" /> < statusCode code="completed" /> <effectiveTime value="764156929185" /> <value unit="k/cumm" xsi:type="PQ" value="0.8" /> < interpretationCode codeSystem="local" code="*" /> <referenceRange> <observationRange> <text>0.1-0.5</text> </ observationRange> </referenceRange> </observation> </ component> <component> <observation moodCode="EVN" classCode="OBS"> <templateId root="16.840.1.852392.10.20.22.4.2" /> <id nullFlavor="NA" /> <code codeSystem="local" code="EO%" displayName= "EOSINOPHIL %" /> <statusCode code="completed" /> < effectiveTime value="242671732411" /> <value unit="%" xsi:type="PQ " value="16" /> <interpretationCode codeSystem="local" code="*" /> <referenceRange> <observationRange> <text>2-4</ text> </observationRange> </referenceRange> </ observation> </component> <component> <observation moodCode= "EVN" classCode="OBS"> <templateId root="216.840.1.133774.10..4.2 " /> <id nullFlavor="NA" /> <code codeSystem="local" code="GR# " displayName="GRANULOCYTE #" /> <statusCode code="completed" /> <effectiveTime value="084421549489" /> <value unit="k/cumm" xsi: type="PQ" value="2.0" /> <referenceRange> <observationRange > <text>2.0-9.0</text> </observationRange> </ referenceRange> </observation> </component> <component> <observation moodCode="EVN" classCode="OBS"> <templateId root= "10.29.840.1.006037.07.02.224.2" /> <id nullFlavor="NA" /> < code codeSystem="local" code="GR%" displayName="GRANULOCYTE %" /> <statusCode code="completed" /> <effectiveTime value="560896084945 " /> <value unit="%" xsi:type="PQ" value="41" /> < interpretationCode codeSystem="local" code="*" /> <referenceRange> <observationRange> <text>50-75</text> </ observationRange> </referenceRange> </observation> </ component> <component> <observation moodCode="EVN" classCode="OBS"> <templateId root="10.29.840.1.707821.07.02.22.4.2" /> <id nullFlavor="NA" /> <code codeSystem="local" code="LY#" displayName= "LYMPHOCYTE #" /> <statusCode code="completed" /> < effectiveTime value="066340917985" /> <value unit="k/cumm" xsi:type="PQ " value="1.2" /> <referenceRange> <observationRange> <text>1.0-4.0</text> </observationRange> </ referenceRange> </observation> </component> <component> <observation moodCode="EVN" classCode="OBS"> <templateId root= "216.840.1.672833.10.22.4.2" /> <id nullFlavor="NA" /> < code codeSystem="local" code="LY%" displayName="LYMPHOCYTE %" /> <statusCode code="completed" /> <effectiveTime value="776678434711" /> <value unit="%" xsi:type="PQ" value="24" /> < referenceRange> <observationRange> <text>20-30</text> </observationRange> </referenceRange> </observation> </component> <component> <observation moodCode="EVN" classCode= "OBS"> <templateId root="10.29.840.1.918063.10..4.2" /> < id nullFlavor="NA" /> <code codeSystem="local" code="MCH" displayName= "MEAN CELL HGB" /> <statusCode code="completed" /> < effectiveTime value="700820916941" /> <value unit="pg" xsi:type="PQ" value="30.3" /> <referenceRange> <observationRange> <text>27.0-33.0</text> </observationRange> </ referenceRange> </observation> </component> <component> <observation moodCode="EVN" classCode="OBS"> <templateId root= "216.840.1.356387.10.20.22.4.2" /> <id nullFlavor="NA" /> < code codeSystem="local" code="MCHC" displayName="MEAN CELL HGB CONCENTRATION" / > <statusCode code="completed" /> <effectiveTime value= "195853595360" /> <value unit="g/dL" xsi:type="PQ" value="35.3" /> <referenceRange> <observationRange> <text>32.0- 37.0</text> </observationRange> </referenceRange> </ observation> </component> <component> <observation moodCode= "EVN" classCode="OBS"> <templateId root="216.840.1.024720.10..22.4.2 " /> <id nullFlavor="NA" /> <code codeSystem="local" code="MCV " displayName="MEAN CELL VOLUME" /> <statusCode code="completed" /> <effectiveTime value="828951554667" /> <value unit="fl" xsi:type ="PQ" value="86.0" /> <referenceRange> <observationRange> <text>80.0-100.0</text> </observationRange> </ referenceRange> </observation> </component> <component> <observation moodCode="EVN" classCode="OBS"> <templateId root= "16.840.1.730005.10.20.22.4.2" /> <id nullFlavor="NA" /> < code codeSystem="local" code="MO#" displayName="MONOCYTE #" /> < statusCode code="completed" /> <effectiveTime value="233034745909" /> <value unit="k/cumm" xsi:type="PQ" value="0.9" /> < referenceRange> <observationRange> <text>0.1-1.0</text> </observationRange> </referenceRange> </observation > </component> <component> <observation moodCode="EVN" classCode="OBS"> <templateId root="16.840.1.091114.10..22.4.2" /> <id nullFlavor="NA" /> <code codeSystem="local" code="MO% " displayName="MONOCYTE %" /> <statusCode code="completed" /> <effectiveTime value="314314914979" /> <value unit="%" xsi: type="PQ" value="19" /> <interpretationCode codeSystem="local" code="* " /> <referenceRange> <observationRange> <text> 4-6</text> </observationRange> </referenceRange> </ observation> </component> <component> <observation moodCode= "EVN" classCode="OBS"> <templateId root="10.29.840.1.914071.07.02.22.4.2 " /> <id nullFlavor="NA" /> <code codeSystem="local" code="RBC " displayName="RED BLOOD CELL" /> <statusCode code="completed" /> <effectiveTime value="269340487412" /> <value unit="m/cumm" xsi: type="PQ" value="3.99" /> <interpretationCode codeSystem="local" code= "*" /> <referenceRange> <observationRange> < text>4.00-6.00</text> </observationRange> </referenceRange> </observation> </component> <component> <observation moodCode="EVN" classCode="OBS"> <templateId root= "10.29.840.1.123680.07.02.22.4.2" /> <id nullFlavor="NA" /> < code codeSystem="local" code="RDW" displayName="RED CELL DISTRIBUTION WIDTH" /> <statusCode code="completed" /> <effectiveTime value= "015169842680" /> <value unit="%" xsi:type="PQ" value="14.8" /> <referenceRange> <observationRange> <text>11.0- 15.6</text> </observationRange> </referenceRange> </ observation> </component> <component> <observation moodCode= "EVN" classCode="OBS"> <templateId root="216.840.1.737553.22.4.2 " /> <id nullFlavor="NA" /> <code codeSystem="local" code="WBC " displayName="WHITE BLOOD CELL" /> <statusCode code="completed" /> <effectiveTime value="799364323676" /> <value unit="k/cumm" xsi: type="PQ" value="4.9" /> <interpretationCode codeSystem="local" code="* " /> <referenceRange> <observationRange> <text> 5.0-10.0</text> </observationRange> </referenceRange> </observation> </component> <component> <observation moodCode ="EVN" classCode="OBS"> <templateId root= "216.840.1.586621.07.02.22.4.2" /> <id nullFlavor="NA" /> < code codeSystem="local" code="HGBT" displayName="HEMOGLOBIN" /> < statusCode code="completed" /> <effectiveTime value="741610707655" /> <value unit="gm/dL" xsi:type="PQ" value="12.1" /> < interpretationCode codeSystem="local" code="*" /> <referenceRange> <observationRange> <text>14.0-18.0</text> </ observationRange> </referenceRange> </observation> </ component> <component> <observation moodCode="EVN" classCode="OBS"> <templateId root="840.1.881555.22.4.2" /> <id nullFlavor="NA" /> <code codeSystem="local" code="HCTT" displayName= "HEMATOCRIT" /> <statusCode code="completed" /> < effectiveTime value="507417594681" /> <value unit="%" xsi:type="PQ " value="34.3" /> <interpretationCode codeSystem="local" code="*" /> <referenceRange> <observationRange> <text>40.0- 54.0</text> </observationRange> </referenceRange> </ observation> </component> <component> <observation moodCode= "EVN" classCode="OBS"> <templateId root="840.1.494131.07.02.22.4.2 " /> <id nullFlavor="NA" /> <code codeSystem="local" code="PLT " displayName="PLATELET COUNT" /> <statusCode code="completed" /> <effectiveTime value="260731021374" /> <value unit="k/cumm" xsi: type="PQ" value="154" /> <referenceRange> <observationRange > <text>150-450</text> </observationRange> </ referenceRange> </observation> </component> </organizer> </entry > <entry> <organizer moodCode="EVN" classCode="BATTERY"> <templateId root="840.1.944856.1022.4.1" /> <id nullFlavor="NA" /> <code codeSystem="local" code="METABC" displayName="METABOLIC PANEL, COMPREHN" /> <statusCode code="completed" /> <component> <observation moodCode= "EVN" classCode="OBS"> <templateId root="840.1.900136.07.02.22.4.2 " /> <id nullFlavor="NA" /> <code codeSystem="local" code="K" displayName="POTASSIUM" /> <statusCode code="completed" /> < effectiveTime value="188229187851" /> <value unit="mmol/L" xsi:type="PQ " value="4.2" /> <referenceRange> <observationRange> <text>3.5-5.3</text> </observationRange> </ referenceRange> </observation> </component> <component> <observation moodCode="EVN" classCode="OBS"> <templateId root= "2.16.840.1.608346.07.02.22.4.2" /> <id nullFlavor="NA" /> < code codeSystem="local" code="eGFR" displayName="EST GFR (MDRD)" /> < statusCode code="completed" /> <effectiveTime value="895074923209" /> <value unit="mL/min" xsi:type="PQ" value="> 60" /> < referenceRange> <observationRange> <text>> 59</text> </observationRange> </referenceRange> </observation > </component> <component> <observation moodCode="EVN" classCode="OBS"> <templateId root="2.16.840.1.740462.07.02.22.4.2" /> <id nullFlavor="NA" /> <code codeSystem="local" code="GAP" displayName="ANION GAP" /> <statusCode code="completed" /> < effectiveTime value="752864866476" /> <value unit="mmol/L" xsi:type="PQ " value="12" /> <referenceRange> <observationRange> <text>5-15</text> </observationRange> </referenceRange > </observation> </component> <component> <observation moodCode="EVN" classCode="OBS"> <templateId root= "16.840.1.857730.10..22.4.2" /> <id nullFlavor="NA" /> < code codeSystem="local" code="eCrCl" displayName="EST CrCl (CG)" /> < statusCode code="completed" /> <effectiveTime value="730946692186" /> <value unit="mL/min" xsi:type="PQ" value="> 60" /> < referenceRange> <observationRange> <text>> 59</text> </observationRange> </referenceRange> </observation > </component> <component> <observation moodCode="EVN" classCode="OBS"> <templateId root="16.840.1.784711.10..4.2" /> <id nullFlavor="NA" /> <code codeSystem="local" code="GLU" displayName="GLUCOSE" /> <statusCode code="completed" /> < effectiveTime value="534401595816" /> <value unit="mg/dL" xsi:type="PQ " value="109" /> <interpretationCode codeSystem="local" code="*" /> <referenceRange> <observationRange> <text>70-99</ text> </observationRange> </referenceRange> </ observation> </component> <component> <observation moodCode= "EVN" classCode="OBS"> <templateId root="10.29.840.1.515208.10.20.22.4.2 " /> <id nullFlavor="NA" /> <code codeSystem="local" code="CA " displayName="CALCIUM" /> <statusCode code="completed" /> < effectiveTime value="117573931379" /> <value unit="mg/dL" xsi:type="PQ " value="8.1" /> <interpretationCode codeSystem="local" code="*" /> <referenceRange> <observationRange> <text>8.5- 10.1</text> </observationRange> </referenceRange> </ observation> </component> <component> <observation moodCode= "EVN" classCode="OBS"> <templateId root="216.840.1.794811.10..22.4.2 " /> <id nullFlavor="NA" /> <code codeSystem="local" code="BUN " displayName="BLOOD UREA NITROGEN" /> <statusCode code="completed" /> <effectiveTime value="659901243578" /> <value unit="mg/dL" xsi:type="PQ" value="20" /> <referenceRange> < observationRange> <text>7-20</text> </observationRange> </referenceRange> </observation> </component> < component> <observation moodCode="EVN" classCode="OBS"> < templateId root="10.29.840.1.732304..22.4.2" /> <id nullFlavor="NA " /> <code codeSystem="local" code="CREAT" displayName="CREATININE" /> <statusCode code="completed" /> <effectiveTime value= "771497706415" /> <value unit="mg/dL" xsi:type="PQ" value="1.2" /> <referenceRange> <observationRange> <text>0.7-1.3< /text> </observationRange> </referenceRange> </ observation> </component> <component> <observation moodCode= "EVN" classCode="OBS"> <templateId root="16.840.1.388780.10.20.22.4.2 " /> <id nullFlavor="NA" /> <code codeSystem="local" code="NA " displayName="SODIUM" /> <statusCode code="completed" /> < effectiveTime value="338011912026" /> <value unit="mmol/L" xsi:type="PQ " value="136" /> <referenceRange> <observationRange> <text>135-148</text> </observationRange> </ referenceRange> </observation> </component> <component> <observation moodCode="EVN" classCode="OBS"> <templateId root= "216.840.1.704605.10...4.2" /> <id nullFlavor="NA" /> < code codeSystem="local" code="CL" displayName="CHLORIDE" /> < statusCode code="completed" /> <effectiveTime value="449463683968" /> <value unit="mmol/L" xsi:type="PQ" value="102" /> < referenceRange> <observationRange> <text>98-110</text> </observationRange> </referenceRange> </observation> </component> <component> <observation moodCode="EVN" classCode ="OBS"> <templateId root="216.840.1.397903.10...4.2" /> < id nullFlavor="NA" /> <code codeSystem="local" code="AST" displayName= "AST/SGOT" /> <statusCode code="completed" /> <effectiveTime value="070345948589" /> <value unit="Units/L" xsi:type="PQ" value="62" /> <interpretationCode codeSystem="local" code="*" /> < referenceRange> <observationRange> <text>10-37</text> </observationRange> </referenceRange> </observation> </component> <component> <observation moodCode="EVN" classCode= "OBS"> <templateId root="216.840.1.329694.07.02.22.4.2" /> < id nullFlavor="NA" /> <code codeSystem="local" code="ALT" displayName= "ALT/SGPT" /> <statusCode code="completed" /> <effectiveTime value="422392783286" /> <value unit="Units/L" xsi:type="PQ" value="68" /> <interpretationCode codeSystem="local" code="*" /> < referenceRange> <observationRange> <text>< 66</text> </observationRange> </referenceRange> </observation > </component> <component> <observation moodCode="EVN" classCode="OBS"> <templateId root="16.840.1.103932.07.02.22.4.2" /> <id nullFlavor="NA" /> <code codeSystem="local" code="CO2" displayName="CARBON DIOXIDE" /> <statusCode code="completed" /> <effectiveTime value="450562151745" /> <value unit="mmol/L" xsi:type ="PQ" value="22" /> <referenceRange> <observationRange> <text>21-32</text> </observationRange> </ referenceRange> </observation> </component> <component> <observation moodCode="EVN" classCode="OBS"> <templateId root= "10.29.840.1.437534.10.4.2" /> <id nullFlavor="NA" /> < code codeSystem="local" code="TP" displayName="TOTAL PROTEIN" /> < statusCode code="completed" /> <effectiveTime value="356292845009" /> <value unit="gm/dL" xsi:type="PQ" value="6.9" /> < referenceRange> <observationRange> <text>6.4-8.2</text> </observationRange> </referenceRange> </observation > </component> <component> <observation moodCode="EVN" classCode="OBS"> <templateId root="16.840.1.809087.22.4.2" /> <id nullFlavor="NA" /> <code codeSystem="local" code="ALB" displayName="ALBUMIN" /> <statusCode code="completed" /> < effectiveTime value="275292465627" /> <value unit="gm/dL" xsi:type="PQ " value="3.2" /> <interpretationCode codeSystem="local" code="*" /> <referenceRange> <observationRange> <text>3.4-5.0 </text> </observationRange> </referenceRange> </ observation> </component> <component> <observation moodCode= "EVN" classCode="OBS"> <templateId root="10.29.840.1.264419.07.02.22.4.2 " /> <id nullFlavor="NA" /> <code codeSystem="local" code= "BILTOT" displayName="BILI TOTAL" /> <statusCode code="completed" /> <effectiveTime value="889943563569" /> <value unit="mg/dL" xsi: type="PQ" value="0.4" /> <referenceRange> <observationRange > <text>0.0-1.0</text> </observationRange> </ referenceRange> </observation> </component> <component> <observation moodCode="EVN" classCode="OBS"> <templateId root= "16.840.1.779223.22.4.2" /> <id nullFlavor="NA" /> < code codeSystem="local" code="ALKP" displayName="ALKALINE PHOSPHATASE TOTAL" /> <statusCode code="completed" /> <effectiveTime value= "534821031030" /> <value unit="IU/L" xsi:type="PQ" value="89" /> <referenceRange> <observationRange> <text>45-117</ text> </observationRange> </referenceRange> </ observation> </component> </organizer> </entry> <entry> <organizer moodCode="EVN" classCode="BATTERY"> <templateId root= "10.29.840.1.649966.10.4.1" /> <id nullFlavor="NA" /> <code codeSystem="local" code="TROP" displayName="Troponin" /> <statusCode code= "completed" /> <component> <observation moodCode="EVN" classCode= "OBS"> <templateId root="10.29.840.1.689279.10...4.2" /> < id nullFlavor="NA" /> <code codeSystem="local" code="TROP" displayName= "Troponin" /> <statusCode code="completed" /> <effectiveTime value="242838029185" /> <value unit="ng/mL" xsi:type="PQ" value="< 0.05" /> <referenceRange> <observationRange> < text><0.06</text> </observationRange> </referenceRange> </observation> </component> </organizer> </entry> <entry> < organizer moodCode="EVN" classCode="BATTERY"> <templateId root= "10.29.840.1.182320.10..4.1" /> <id nullFlavor="NA" /> <code codeSystem="local" code="CBCWD" displayName="CBC With Platelet and Differential " /> <statusCode code="completed" /> <component> <observation moodCode="EVN" classCode="OBS"> <templateId root= "840.1.675648.10.22.4.2" /> <id nullFlavor="NA" /> < code codeSystem="local" code="ABASR" displayName="Absolute Basophils" /> <statusCode code="completed" /> <effectiveTime value="" /> <value unit="10*3/uL" xsi:type="PQ" value="0.04" /> < referenceRange> <observationRange> <text>0.00-0.20</text > </observationRange> </referenceRange> </observation > </component> <component> <observation moodCode="EVN" classCode="OBS"> <templateId root="840.1.162241.07.02.22.4.2" /> <id nullFlavor="NA" /> <code codeSystem="local" code="AEOSR" displayName="Absolute Eosinophils" /> <statusCode code="completed" /> <effectiveTime value="" /> <value unit="10*3/uL" xsi:type="PQ" value="0.57" /> <interpretationCode codeSystem="local" code="*" /> <referenceRange> <observationRange> <text>0.00-0.50</text> </observationRange> </ referenceRange> </observation> </component> <component> <observation moodCode="EVN" classCode="OBS"> <templateId root= "10.29.840.1.485310.10.22.4.2" /> <id nullFlavor="NA" /> < code codeSystem="local" code="ALYMR" displayName="Absolute Lymphocytes" /> <statusCode code="completed" /> <effectiveTime value=" " /> <value unit="10*3/uL" xsi:type="PQ" value="1.82" /> < referenceRange> <observationRange> <text>0.80-3.30</text > </observationRange> </referenceRange> </observation > </component> <component> <observation moodCode="EVN" classCode="OBS"> <templateId root="16.840.1.374923.10.20.22.4.2" /> <id nullFlavor="NA" /> <code codeSystem="local" code="AMONR" displayName="Absolute Monocytes" /> <statusCode code="completed" /> <effectiveTime value="[id number]" /> <value unit="10*3/uL" xsi :type="PQ" value="0.84" /> <referenceRange> < observationRange> <text>0.30-1.00</text> </ observationRange> </referenceRange> </observation> </ component> <component> <observation moodCode="EVN" classCode="OBS"> <templateId root="840.1.582633.102022.4.2" /> <id nullFlavor="NA" /> <code codeSystem="local" code="ASEGR" displayName= "Absolute Neutrophils" /> <statusCode code="completed" /> < effectiveTime value="631973879192" /> <value unit="10*3/uL" xsi:type= "PQ" value="4.22" /> <referenceRange> <observationRange> <text>1.90-7.00</text> </observationRange> </ referenceRange> </observation> </component> <component> <observation moodCode="EVN" classCode="OBS"> <templateId root= "10.29.840.1.892139.10.20.22.4.2" /> <id nullFlavor="NA" /> < code codeSystem="local" code="BASOR" displayName="Basophils" /> < statusCode code="completed" /> <effectiveTime value="273343522217" /> <value unit="%" xsi:type="PQ" value="1" /> <referenceRange > <observationRange> <text>0-2</text> </ observationRange> </referenceRange> </observation> </ component> <component> <observation moodCode="EVN" classCode="OBS"> <templateId root="216.840.1.801034.10.20.22.4.2" /> <id nullFlavor="NA" /> <code codeSystem="local" code="EOSR" displayName= "Eosinophils" /> <statusCode code="completed" /> < effectiveTime value="068027750459" /> <value unit="%" xsi:type="PQ " value="8" /> <interpretationCode codeSystem="local" code="*" /> <referenceRange> <observationRange> <text>0-4</text > </observationRange> </referenceRange> </observation > </component> <component> <observation moodCode="EVN" classCode="OBS"> <templateId root="216.840.1.794669.10.20.22.4.2" /> <id nullFlavor="NA" /> <code codeSystem="local" code="HCT" displayName="HCT" /> <statusCode code="completed" /> < effectiveTime value="799792607113" /> <value unit="%" xsi:type="PQ " value="39.0" /> <interpretationCode codeSystem="local" code="*" /> <referenceRange> <observationRange> <text>42.0- 52.0</text> </observationRange> </referenceRange> </ observation> </component> <component> <observation moodCode= "EVN" classCode="OBS"> <templateId root="216.840.1.117132.10.20.22.4.2 " /> <id nullFlavor="NA" /> <code codeSystem="local" code="HGB " displayName="HGB" /> <statusCode code="completed" /> < effectiveTime value="511192575189" /> <value unit="g/dL" xsi:type="PQ" value="13.0" /> <interpretationCode codeSystem="local" code="*" /> <referenceRange> <observationRange> <text>14.0- 18.0</text> </observationRange> </referenceRange> </ observation> </component> <component> <observation moodCode= "EVN" classCode="OBS"> <templateId root="216.840.1.138184.10...4.2 " /> <id nullFlavor="NA" /> <code codeSystem="local" code= "IMGA" displayName="Immature Granulocytes" /> <statusCode code= "completed" /> <effectiveTime value="" /> <value unit="%" xsi:type="PQ" value="0.3" /> <referenceRange> < observationRange> <text>0.0-1.0</text> </ observationRange> </referenceRange> </observation> </ component> <component> <observation moodCode="EVN" classCode="OBS"> <templateId root="16.840.1.579617.10..22.4.2" /> <id nullFlavor="NA" /> <code codeSystem="local" code="LYMPR" displayName= "Lymphocytes" /> <statusCode code="completed" /> < effectiveTime value="" /> <value unit="%" xsi:type="PQ " value="24" /> <referenceRange> <observationRange> <text>20-46</text> </observationRange> </ referenceRange> </observation> </component> <component> <observation moodCode="EVN" classCode="OBS"> <templateId root= "16.840.1.582732.10..22.4.2" /> <id nullFlavor="NA" /> < code codeSystem="local" code="[facility]" displayName="[facility]" /> <statusCode code="completed" /> <effectiveTime value="" /> < value unit="pg" xsi:type="PQ" value="30.9" /> <referenceRange> <observationRange> <text>27.0-32.0</text> </ observationRange> </referenceRange> </observation> </ component> <component> <observation moodCode="EVN" classCode="OBS"> <templateId root="10.29.840.1.271511.07.02.22.4.2" /> <id nullFlavor="NA" /> <code codeSystem="local" code="[facility]" displayName= "[facility]" /> <statusCode code="completed" /> <effectiveTime value ="" /> <value unit="g/dL" xsi:type="PQ" value="33.3" /> <referenceRange> <observationRange> <text>32.0- 36.0</text> </observationRange> </referenceRange> </ observation> </component> <component> <observation moodCode= "EVN" classCode="OBS"> <templateId root="10.29.840.1.814746.22.4.2 " /> <id nullFlavor="NA" /> <code codeSystem="local" code="MCV " displayName="MCV" /> <statusCode code="completed" /> < effectiveTime value="285632201902" /> <value unit="fL" xsi:type="PQ" value="92.6" /> <referenceRange> <observationRange> <text>82.0-99.0</text> </observationRange> </ referenceRange> </observation> </component> <component> <observation moodCode="EVN" classCode="OBS"> <templateId root= "16.840.1.924655.10..22.4.2" /> <id nullFlavor="NA" /> < code codeSystem="local" code="MONOR" displayName="Monocytes" /> < statusCode code="completed" /> <effectiveTime value="170576943950" /> <value unit="%" xsi:type="PQ" value="11" /> < referenceRange> <observationRange> <text>4-11</text> </observationRange> </referenceRange> </observation> </component> <component> <observation moodCode="EVN" classCode= "OBS"> <templateId root="10.29.840.1.186295.07.02.22.4.2" /> < id nullFlavor="NA" /> <code codeSystem="local" code="MPV" displayName= "MPV" /> <statusCode code="completed" /> <effectiveTime value= "043634078269" /> <value unit="fL" xsi:type="PQ" value="10.4" /> <referenceRange> <observationRange> <text>9.4-12.3</ text> </observationRange> </referenceRange> </ observation> </component> <component> <observation moodCode= "EVN" classCode="OBS"> <templateId root="16.840.1.980650.10..22.4.2 " /> <id nullFlavor="NA" /> <code codeSystem="local" code= "SEGR" displayName="Neutrophils" /> <statusCode code="completed" /> <effectiveTime value="345287622133" /> <value unit="%" xsi: type="PQ" value="56" /> <referenceRange> <observationRange> <text>51-75</text> </observationRange> </ referenceRange> </observation> </component> <component> <observation moodCode="EVN" classCode="OBS"> <templateId root= "10.29.840.1.560403.10.22.4.2" /> <id nullFlavor="NA" /> < code codeSystem="local" code="NRBCA" displayName="Nucleated RBC Automated" /> <statusCode code="completed" /> <effectiveTime value= "058589891541" /> <value unit="/100WBC" xsi:type="PQ" value="0.0" /> <referenceRange> <observationRange> <text /> </observationRange> </referenceRange> </observation> </component> <component> <observation moodCode="EVN" classCode= "OBS"> <templateId root="10.29.840.1.179366..22.4.2" /> < id nullFlavor="NA" /> <code codeSystem="local" code="PLT" displayName= "Platelet Count" /> <statusCode code="completed" /> < effectiveTime value="700784715395" /> <value unit="K/uL" xsi:type="PQ" value="190" /> <referenceRange> <observationRange> <text>150-400</text> </observationRange> </ referenceRange> </observation> </component> <component> <observation moodCode="EVN" classCode="OBS"> <templateId root= "10.29.840.1.353871.07.02.22.4.2" /> <id nullFlavor="NA" /> < code codeSystem="local" code="RBC" displayName="RBC" /> <statusCode code="completed" /> <effectiveTime value="" /> < value unit="10*6/uL" xsi:type="PQ" value="4.21" /> <interpretationCode codeSystem="local" code="*" /> <referenceRange> < observationRange> <text>4.60-6.20</text> </ observationRange> </referenceRange> </observation> </ component> <component> <observation moodCode="EVN" classCode="OBS"> <templateId root="216.840.1.573119.07.02.22.4.2" /> <id nullFlavor="NA" /> <code codeSystem="local" code="RDW" displayName="RDW " /> <statusCode code="completed" /> <effectiveTime value= "" /> <value unit="%" xsi:type="PQ" value="14.5" /> <referenceRange> <observationRange> <text>11.5- 14.5</text> </observationRange> </referenceRange> </ observation> </component> <component> <observation moodCode= "EVN" classCode="OBS"> <templateId root="216.840.1.944630.07.02.22.4.2 " /> <id nullFlavor="NA" /> <code codeSystem="local" code= "WBCIR" displayName="WBC" /> <statusCode code="completed" /> < effectiveTime value="" /> <value unit="K/uL" xsi:type="PQ" value="7.5" /> <referenceRange> <observationRange> <text>4.8-10.8</text> </observationRange> </ referenceRange> </observation> </component> </organizer> </entry > <entry> <organizer moodCode="EVN" classCode="BATTERY"> <templateId root="216.840.1.980124.10..22.4.1" /> <id nullFlavor="NA" /> <code codeSystem="local" code="UA" displayName="Urinalysis with reflex microscopic" / > <statusCode code="completed" /> <component> <observation moodCode="EVN" classCode="OBS"> <templateId root= "216.840.1.436355...4.2" /> <id nullFlavor="NA" /> < code codeSystem="local" code="UAPP" displayName="Appearance" /> < statusCode code="completed" /> <effectiveTime value="" /> <value unit="NA" xsi:type="PQ" value="Clear" /> < referenceRange> <observationRange> <text /> < /observationRange> </referenceRange> </observation> </ component> <component> <observation moodCode="EVN" classCode="OBS"> <templateId root="216.840.1.901606.10...4.2" /> <id nullFlavor="NA" /> <code codeSystem="local" code="UBIL" displayName= "Bilirubin" /> <statusCode code="completed" /> <effectiveTime value="" /> <value unit="NA" xsi:type="PQ" value="Negative " /> <referenceRange> <observationRange> <text> Negative</text> </observationRange> </referenceRange> </observation> </component> <component> <observation moodCode ="EVN" classCode="OBS"> <templateId root= "10.29.840.1.378297.22.4.2" /> <id nullFlavor="NA" /> < code codeSystem="local" code="UBLD" displayName="Blood" /> <statusCode code="completed" /> <effectiveTime value="" /> < value unit="NA" xsi:type="PQ" value="Negative" /> <referenceRange> <observationRange> <text>Negative</text> </ observationRange> </referenceRange> </observation> </ component> <component> <observation moodCode="EVN" classCode="OBS"> <templateId root="16.840.1.774503.07.02.22.4.2" /> <id nullFlavor="NA" /> <code codeSystem="local" code="UCOLR" displayName= "Color" /> <statusCode code="completed" /> <effectiveTime value="" /> <value unit="NA" xsi:type="PQ" value="Yellow" / > <referenceRange> <observationRange> <text /> </observationRange> </referenceRange> </observation > </component> <component> <observation moodCode="EVN" classCode="OBS"> <templateId root="16.840.1.002227.07.02.22.4.2" /> <id nullFlavor="NA" /> <code codeSystem="local" code="UGLU" displayName="Glucose, Urine" /> <statusCode code="completed" /> <effectiveTime value="" /> <value unit="" xsi:type="PQ" value="Negative" /> <referenceRange> <observationRange> <text>Negative</text> </observationRange> </ referenceRange> </observation> </component> <component> <observation moodCode="EVN" classCode="OBS"> <templateId root= "216.840.1.698285.10..4.2" /> <id nullFlavor="NA" /> < code codeSystem="local" code="UKET" displayName="Ketones" /> < statusCode code="completed" /> <effectiveTime value="" /> <value unit="" xsi:type="PQ" value="Negative" /> < referenceRange> <observationRange> <text>Negative</text > </observationRange> </referenceRange> </observation > </component> <component> <observation moodCode="EVN" classCode="OBS"> <templateId root="216.840.1.407581.07.02.22.4.2" /> <id nullFlavor="NA" /> <code codeSystem="local" code="ULEU" displayName="Leukocyte Esterase" /> <statusCode code="completed" /> <effectiveTime value="" /> <value unit="NA" xsi:type ="PQ" value="Negative" /> <referenceRange> <observationRange > <text>Negative</text> </observationRange> </ referenceRange> </observation> </component> <component> <observation moodCode="EVN" classCode="OBS"> <templateId root= "16.840.1.146378.07.02.22.4.2" /> <id nullFlavor="NA" /> < code codeSystem="local" code="UNIT" displayName="Nitrites" /> < statusCode code="completed" /> <effectiveTime value="" /> <value unit="NA" xsi:type="PQ" value="Negative" /> < referenceRange> <observationRange> <text>Negative</text > </observationRange> </referenceRange> </observation > </component> <component> <observation moodCode="EVN" classCode="OBS"> <templateId root="16.840.1.785258.10..22.4.2" /> <id nullFlavor="NA" /> <code codeSystem="local" code="UPH" displayName="pH" /> <statusCode code="completed" /> < effectiveTime value="" /> <value unit="NA" xsi:type="PQ" value="6.0" /> <referenceRange> <observationRange> <text>5.0-8.0</text> </observationRange> </ referenceRange> </observation> </component> <component> <observation moodCode="EVN" classCode="OBS"> <templateId root= "16.840.1.587630....4.2" /> <id nullFlavor="NA" /> < code codeSystem="local" code="UPRO" displayName="Protein" /> < statusCode code="completed" /> <effectiveTime value="" /> <value unit="NA" xsi:type="PQ" value="Pos 1+" /> < interpretationCode codeSystem="local" code="*" /> <referenceRange> <observationRange> <text>Negative</text> </ observationRange> </referenceRange> </observation> </ component> <component> <observation moodCode="EVN" classCode="OBS"> <templateId root="16.840.1.036653.10...4.2" /> <id nullFlavor="NA" /> <code codeSystem="local" code="USPG" displayName= "Specific [place]" /> <statusCode code="completed" /> < effectiveTime value="" /> <value unit="NA" xsi:type="PQ" value="1.020" /> <referenceRange> <observationRange> <text>1.003-1.030</text> </observationRange> </ referenceRange> </observation> </component> <component> <observation moodCode="EVN" classCode="OBS"> <templateId root= "216.840.1.237006.10..22.4.2" /> <id nullFlavor="NA" /> < code codeSystem="local" code="UTYP" displayName="UA Collection type" /> <statusCode code="completed" /> <effectiveTime value="182025538439" / > <value unit="NA" xsi:type="PQ" value="Clean Catch" /> < referenceRange> <observationRange> <text /> < /observationRange> </referenceRange> </observation> </ component> <component> <observation moodCode="EVN" classCode="OBS"> <templateId root="10.29.840.1.038890.07.02.22.4.2" /> <id nullFlavor="NA" /> <code codeSystem="local" code="UURO" displayName= "Urobilinogen" /> <statusCode code="completed" /> < effectiveTime value="954270987543" /> <value unit="mg/dL" xsi:type="PQ " value="4.0" /> <referenceRange> <observationRange> <text><1.0</text> </observationRange> </ referenceRange> </observation> </component> </organizer> </entry > <entry> <organizer moodCode="EVN" classCode="BATTERY"> <templateId root="16.840.1.338007.10.22.4.1" /> <id nullFlavor="NA" /> <code codeSystem="local" code="UMIC" displayName="Urine Microscopic" /> < statusCode code="completed" /> <component> <observation moodCode= "EVN" classCode="OBS"> <templateId root="216.840.1.488077.10..4.2 " /> <id nullFlavor="NA" /> <code codeSystem="local" code= "UBAC" displayName="Bacteria" /> <statusCode code="completed" /> <effectiveTime value="" /> <value unit="NA" xsi:type= "PQ" value="None Seen" /> <referenceRange> <observationRange > <text /> </observationRange> </referenceRange > </observation> </component> <component> <observation moodCode="EVN" classCode="OBS"> <templateId root= "16.840.1.443773...4.2" /> <id nullFlavor="NA" /> < code codeSystem="local" code="UEPI" displayName="Epithelial Cells" /> < statusCode code="completed" /> <effectiveTime value="" /> <value unit="/HPF" xsi:type="PQ" value="None Seen" /> < referenceRange> <observationRange> <text /> < /observationRange> </referenceRange> </observation> </ component> <component> <observation moodCode="EVN" classCode="OBS"> <templateId root="10.29.840.1.974717.10..4.2" /> <id nullFlavor="NA" /> <code codeSystem="local" code="URBC" displayName= "RBC, Urine" /> <statusCode code="completed" /> < effectiveTime value="" /> <value unit="/HPF" xsi:type="PQ" value="0" /> <referenceRange> <observationRange> <text>0-2</text> </observationRange> </referenceRange> </observation> </component> <component> <observation moodCode="EVN" classCode="OBS"> <templateId root= "10.29.840.1.239216.10.4.2" /> <id nullFlavor="NA" /> < code codeSystem="local" code="UMUC" displayName="Urine Mucus" /> < statusCode code="completed" /> <effectiveTime value="840269295343" /> <value unit="NA" xsi:type="PQ" value="Present" /> < referenceRange> <observationRange> <text /> < /observationRange> </referenceRange> </observation> </ component> <component> <observation moodCode="EVN" classCode="OBS"> <templateId root="840.1.733819.07.02.22.4.2" /> <id nullFlavor="NA" /> <code codeSystem="local" code="UWBC" displayName= "WBC, Urine" /> <statusCode code="completed" /> < effectiveTime value="" /> <value unit="/HPF" xsi:type="PQ" value="0" /> <referenceRange> <observationRange> <text>0-4</text> </observationRange> </referenceRange> </observation> </component> </organizer> </entry> <entry> < organizer moodCode="EVN" classCode="BATTERY"> <templateId root= "10.29.840.1.468330.07.02.22.4.1" /> <id nullFlavor="NA" /> <code codeSystem="local" code="BMP" displayName="Basic Metabolic Panel (BMP)" /> <statusCode code="completed" /> <component> <observation moodCode= "EVN" classCode="OBS"> <templateId root="10.29.830.1.984392....4.2 " /> <id nullFlavor="NA" /> <code codeSystem="local" code= "AGAP" displayName="Anion Gap" /> <statusCode code="completed" /> <effectiveTime value="" /> <value unit="mEq/L" xsi: type="PQ" value="7" /> <referenceRange> <observationRange> <text>3-20</text> </observationRange> </ referenceRange> </observation> </component> <component> <observation moodCode="EVN" classCode="OBS"> <templateId root= "216.840.1.539308.07.02.22.4.2" /> <id nullFlavor="NA" /> < code codeSystem="local" code="BUN" displayName="BUN" /> <statusCode code="completed" /> <effectiveTime value="" /> < value unit="mg/dL" xsi:type="PQ" value="28" /> <interpretationCode codeSystem="local" code="*" /> <referenceRange> < observationRange> <text>4-20</text> </observationRange> </referenceRange> </observation> </component> < component> <observation moodCode="EVN" classCode="OBS"> < templateId root="16.840.1.142965.07.02.22.4.2" /> <id nullFlavor="NA " /> <code codeSystem="local" code="CA" displayName="Calcium" /> <statusCode code="completed" /> <effectiveTime value=" " /> <value unit="mg/dL" xsi:type="PQ" value="8.7" /> < referenceRange> <observationRange> <text>8.6-10.0</text > </observationRange> </referenceRange> </observation > </component> <component> <observation moodCode="EVN" classCode="OBS"> <templateId root="216.840.1.850009.10..4.2" /> <id nullFlavor="NA" /> <code codeSystem="local" code="CL" displayName="Chloride" /> <statusCode code="completed" /> < effectiveTime value="" /> <value unit="mEq/L" xsi:type="PQ " value="105" /> <referenceRange> <observationRange> <text>99-109</text> </observationRange> </ referenceRange> </observation> </component> <component> <observation moodCode="EVN" classCode="OBS"> <templateId root= "216.840.1.111762.07.02.22.4.2" /> <id nullFlavor="NA" /> < code codeSystem="local" code="CO2" displayName="CO2" /> <statusCode code="completed" /> <effectiveTime value="" /> < value unit="mEq/L" xsi:type="PQ" value="22" /> <referenceRange> <observationRange> <text>22-32</text> </ observationRange> </referenceRange> </observation> </ component> <component> <observation moodCode="EVN" classCode="OBS"> <templateId root="16.840.1.704212.10.22.4.2" /> <id nullFlavor="NA" /> <code codeSystem="local" code="CREAT" displayName= "Creatinine" /> <statusCode code="completed" /> < effectiveTime value="" /> <value unit="mg/dL" xsi:type="PQ " value="1.02" /> <referenceRange> <observationRange> <text>0.64-1.27</text> </observationRange> </ referenceRange> </observation> </component> <component> <observation moodCode="EVN" classCode="OBS"> <templateId root= "16.840.1.155075.10...4.2" /> <id nullFlavor="NA" /> < code codeSystem="local" code="GLU" displayName="Glucose" /> < statusCode code="completed" /> <effectiveTime value="166502776166" /> <value unit="mg/dL" xsi:type="PQ" value="94" /> < referenceRange> <observationRange> <text>70-100</text> </observationRange> </referenceRange> </observation> </component> <component> <observation moodCode="EVN" classCode ="OBS"> <templateId root="840.1.738152.07.02.22.4.2" /> < id nullFlavor="NA" /> <code codeSystem="local" code="K" displayName= "Potassium" /> <statusCode code="completed" /> <effectiveTime value="675151718430" /> <value unit="mEq/L" xsi:type="PQ" value="4.9" / > <referenceRange> <observationRange> <text>3.6 -5.1</text> </observationRange> </referenceRange> </ observation> </component> <component> <observation moodCode= "EVN" classCode="OBS"> <templateId root="10.29.840.1.320967.07.02.22.4.2 " /> <id nullFlavor="NA" /> <code codeSystem="local" code="NA " displayName="Sodium" /> <statusCode code="completed" /> < effectiveTime value="285473452185" /> <value unit="mEq/L" xsi:type="PQ " value="134" /> <interpretationCode codeSystem="local" code="*" /> <referenceRange> <observationRange> <text>136-144 </text> </observationRange> </referenceRange> </ observation> </component> </organizer> </entry> <entry> <organizer moodCode="EVN" classCode="BATTERY"> <templateId root= "216.840.1.932345.10..22.4.1" /> <id nullFlavor="NA" /> <code codeSystem="local" code="GFR" displayName="eGFR" /> <statusCode code= "completed" /> <component> <observation moodCode="EVN" classCode= "OBS"> <templateId root="216.840.1.003782.10..22.4.2" /> < id nullFlavor="NA" /> <code codeSystem="local" code="GFR" displayName= "eGFR" /> <statusCode code="completed" /> <effectiveTime value ="892961788593" /> <value unit="mL/min" xsi:type="PQ" value=">60" / > <referenceRange> <observationRange> <text>&gt ;60</text> </observationRange> </referenceRange> </ observation> </component> </organizer> </entry> <entry> <organizer moodCode="EVN" classCode="BATTERY"> <templateId root= "216.840.1.247367.10..22.4.1" /> <id nullFlavor="NA" /> <code codeSystem="local" code="PT" displayName="Protime (INR)" /> <statusCode code="completed" /> <component> <observation moodCode="EVN" classCode="OBS"> <templateId root="16.840.1.480284.10..22.4.2" /> <id nullFlavor="NA" /> <code codeSystem="local" code="INR" displayName="INR" /> <statusCode code="completed" /> < effectiveTime value="233622400491" /> <value unit="NA" xsi:type="PQ" value="0.8" /> <interpretationCode codeSystem="local" code="*" /> <referenceRange> <observationRange> <text>0.9-1.2</ text> </observationRange> </referenceRange> </ observation> </component> </organizer> </entry> <entry> <organizer moodCode="EVN" classCode="BATTERY"> <templateId root= "16.840.1.668537.10..22.4.1" /> <id nullFlavor="NA" /> <code codeSystem="local" code="LIVER" displayName="Hepatic Function Panel" /> < statusCode code="completed" /> <component> <observation moodCode= "EVN" classCode="OBS"> <templateId root="216.840.1.484176.10..22.4.2 " /> <id nullFlavor="NA" /> <code codeSystem="local" code="ALB " displayName="Albumin" /> <statusCode code="completed" /> < effectiveTime value="933773986750" /> <value unit="g/dL" xsi:type="PQ" value="3.6" /> <referenceRange> <observationRange> <text>3.5-4.8</text> </observationRange> </ referenceRange> </observation> </component> <component> <observation moodCode="EVN" classCode="OBS"> <templateId root= "10.29.840.1.065471.07.02.22.4.2" /> <id nullFlavor="NA" /> < code codeSystem="local" code="ALP" displayName="Alkaline Phosphatase" /> <statusCode code="completed" /> <effectiveTime value="662629482054" /> <value unit="U/L" xsi:type="PQ" value="96" /> < referenceRange> <observationRange> <text>26-104</text> </observationRange> </referenceRange> </observation> </component> <component> <observation moodCode="EVN" classCode ="OBS"> <templateId root="216.840.1.560883.07.02.22.4.2" /> < id nullFlavor="NA" /> <code codeSystem="local" code="ALT" displayName= "ALT (SGPT)" /> <statusCode code="completed" /> < effectiveTime value="" /> <value unit="U/L" xsi:type="PQ" value="92" /> <interpretationCode codeSystem="local" code="*" /> <referenceRange> <observationRange> <text>17-63</ text> </observationRange> </referenceRange> </ observation> </component> <component> <observation moodCode= "EVN" classCode="OBS"> <templateId root="10.29.840.1.001378.07.02.22.4.2 " /> <id nullFlavor="NA" /> <code codeSystem="local" code="AST " displayName="AST (SGOT)" /> <statusCode code="completed" /> <effectiveTime value="" /> <value unit="U/L" xsi:type="PQ" value="77" /> <interpretationCode codeSystem="local" code="*" /> <referenceRange> <observationRange> <text>15-41</ text> </observationRange> </referenceRange> </ observation> </component> <component> <observation moodCode= "EVN" classCode="OBS"> <templateId root="216.840.1.510299.10..4.2 " /> <id nullFlavor="NA" /> <code codeSystem="local" code= "BILID" displayName="Bilirubin Direct" /> <statusCode code="completed" /> <effectiveTime value="" /> <value unit="mg/dL" xsi:type="PQ" value="0.3" /> <interpretationCode codeSystem="local" code="*" /> <referenceRange> <observationRange> <text>0.0-0.2</text> </observationRange> </referenceRange > </observation> </component> <component> <observation moodCode="EVN" classCode="OBS"> <templateId root= "10.29.840.1.086465.07.02.22.4.2" /> <id nullFlavor="NA" /> < code codeSystem="local" code="BILII" displayName="Bilirubin Indirect" /> <statusCode code="completed" /> <effectiveTime value="" /> <value unit="mg/dL" xsi:type="PQ" value="0.5" /> < referenceRange> <observationRange> <text>0.0-1.0</text> </observationRange> </referenceRange> </observation > </component> <component> <observation moodCode="EVN" classCode="OBS"> <templateId root="16.840.1.972585.10..4.2" /> <id nullFlavor="NA" /> <code codeSystem="local" code="BILIT" displayName="Bilirubin Total" /> <statusCode code="completed" /> <effectiveTime value="151340100674" /> <value unit="mg/dL" xsi:type ="PQ" value="0.8" /> <referenceRange> <observationRange> <text>0.2-1.2</text> </observationRange> </ referenceRange> </observation> </component> <component> <observation moodCode="EVN" classCode="OBS"> <templateId root= "840.1.979527.07.02.22.4.2" /> <id nullFlavor="NA" /> < code codeSystem="local" code="TP" displayName="Protein" /> <statusCode code="completed" /> <effectiveTime value="" /> < value unit="g/dL" xsi:type="PQ" value="6.7" /> <referenceRange> <observationRange> <text>6.1-7.9</text> </ observationRange> </referenceRange> </observation> </ component> </organizer> </entry> <entry> <organizer moodCode="EVN" classCode="BATTERY"> <templateId root="840.1.827017.07.02.22.4.1" /> <id nullFlavor="NA" /> <code codeSystem="local" code="CBCWD" displayName="CBC With Platelet and Differential" /> <statusCode code= "completed" /> <component> <observation moodCode="EVN" classCode= "OBS"> <templateId root="840.1.534677.22.4.2" /> < id nullFlavor="NA" /> <code codeSystem="local" code="ABASR" displayName ="Absolute Basophils" /> <statusCode code="completed" /> < effectiveTime value="937802236610" /> <value unit="10*3/uL" xsi:type= "PQ" value="0.06" /> <referenceRange> <observationRange> <text>0.00-0.20</text> </observationRange> </ referenceRange> </observation> </component> <component> <observation moodCode="EVN" classCode="OBS"> <templateId root= "216.840.1.069693.07.02.22.4.2" /> <id nullFlavor="NA" /> < code codeSystem="local" code="AEOSR" displayName="Absolute Eosinophils" /> <statusCode code="completed" /> <effectiveTime value="[id number] " /> <value unit="10*3/uL" xsi:type="PQ" value="0.80" /> < interpretationCode codeSystem="local" code="*" /> <referenceRange> <observationRange> <text>0.00-0.50</text> </ observationRange> </referenceRange> </observation> </ component> <component> <observation moodCode="EVN" classCode="OBS"> <templateId root="10.29.840.1.790878.07.02.224.2" /> <id nullFlavor="NA" /> <code codeSystem="local" code="ALYMR" displayName= "Absolute Lymphocytes" /> <statusCode code="completed" /> < effectiveTime value="701809609094" /> <value unit="10*3/uL" xsi:type= "PQ" value="2.56" /> <referenceRange> <observationRange> <text>0.80-3.30</text> </observationRange> </ referenceRange> </observation> </component> <component> <observation moodCode="EVN" classCode="OBS"> <templateId root= "10.29.840.1.410495.07.02.22.4.2" /> <id nullFlavor="NA" /> < code codeSystem="local" code="AMONR" displayName="Absolute Monocytes" /> <statusCode code="completed" /> <effectiveTime value="417208247553" /> <value unit="10*3/uL" xsi:type="PQ" value="1.13" /> < interpretationCode codeSystem="local" code="*" /> <referenceRange> <observationRange> <text>0.30-1.00</text> </ observationRange> </referenceRange> </observation> </ component> <component> <observation moodCode="EVN" classCode="OBS"> <templateId root="16.840.1.756539.07.02.224.2" /> <id nullFlavor="NA" /> <code codeSystem="local" code="ASEGR" displayName= "Absolute Neutrophils" /> <statusCode code="completed" /> < effectiveTime value="359329500317" /> <value unit="10*3/uL" xsi:type= "PQ" value="4.68" /> <referenceRange> <observationRange> <text>1.90-7.00</text> </observationRange> </ referenceRange> </observation> </component> <component> <observation moodCode="EVN" classCode="OBS"> <templateId root= "16.840.1.320245.07.02.224.2" /> <id nullFlavor="NA" /> < code codeSystem="local" code="BASOR" displayName="Basophils" /> < statusCode code="completed" /> <effectiveTime value="140734498119" /> <value unit="%" xsi:type="PQ" value="1" /> <referenceRange > <observationRange> <text>0-2</text> </ observationRange> </referenceRange> </observation> </ component> <component> <observation moodCode="EVN" classCode="OBS"> <templateId root="216.840.1.264972.10.22.4.2" /> <id nullFlavor="NA" /> <code codeSystem="local" code="EOSR" displayName= "Eosinophils" /> <statusCode code="completed" /> < effectiveTime value="187192443060" /> <value unit="%" xsi:type="PQ " value="9" /> <interpretationCode codeSystem="local" code="*" /> <referenceRange> <observationRange> <text>0-4</text > </observationRange> </referenceRange> </observation > </component> <component> <observation moodCode="EVN" classCode="OBS"> <templateId root="216.840.1.372341.07.02.224.2" /> <id nullFlavor="NA" /> <code codeSystem="local" code="HCT" displayName="HCT" /> <statusCode code="completed" /> < effectiveTime value="864427080830" /> <value unit="%" xsi:type="PQ " value="47.5" /> <referenceRange> <observationRange> <text>42.0-52.0</text> </observationRange> </ referenceRange> </observation> </component> <component> <observation moodCode="EVN" classCode="OBS"> <templateId root= "216.840.1.889399.1022.4.2" /> <id nullFlavor="NA" /> < code codeSystem="local" code="HGB" displayName="HGB" /> <statusCode code="completed" /> <effectiveTime value="358322871825" /> < value unit="g/dL" xsi:type="PQ" value="16.2" /> <referenceRange> <observationRange> <text>14.0-18.0</text> </ observationRange> </referenceRange> </observation> </ component> <component> <observation moodCode="EVN" classCode="OBS"> <templateId root="216.840.1.806796.10..4.2" /> <id nullFlavor="NA" /> <code codeSystem="local" code="IMGA" displayName= "Immature Granulocytes" /> <statusCode code="completed" /> < effectiveTime value="109896718716" /> <value unit="%" xsi:type="PQ " value="0.5" /> <referenceRange> <observationRange> <text>0.0-1.0</text> </observationRange> </ referenceRange> </observation> </component> <component> <observation moodCode="EVN" classCode="OBS"> <templateId root= "216.840.1.885157.07.02.22.4.2" /> <id nullFlavor="NA" /> < code codeSystem="local" code="LYMPR" displayName="Lymphocytes" /> < statusCode code="completed" /> <effectiveTime value="122847925017" /> <value unit="%" xsi:type="PQ" value="28" /> < referenceRange> <observationRange> <text>20-46</text> </observationRange> </referenceRange> </observation> </component> <component> <observation moodCode="EVN" classCode= "OBS"> <templateId root="216.840.1.863980.10...4.2" /> < id nullFlavor="NA" /> <code codeSystem="local" code="MCH" displayName= "MCH" /> <statusCode code="completed" /> <effectiveTime value= "837327166056" /> <value unit="pg" xsi:type="PQ" value="31.3" /> <referenceRange> <observationRange> <text>27.0-32.0< /text> </observationRange> </referenceRange> </ observation> </component> <component> <observation moodCode= "EVN" classCode="OBS"> <templateId root="216.840.1.212460.10.20.22.4.2 " /> <id nullFlavor="NA" /> <code codeSystem="local" code= "MCHC" displayName="MCHC" /> <statusCode code="completed" /> < effectiveTime value="468622424454" /> <value unit="g/dL" xsi:type="PQ" value="34.1" /> <referenceRange> <observationRange> <text>32.0-36.0</text> </observationRange> </ referenceRange> </observation> </component> <component> <observation moodCode="EVN" classCode="OBS"> <templateId root= "216.840.1.632342.10.20.22.4.2" /> <id nullFlavor="NA" /> < code codeSystem="local" code="MCV" displayName="MCV" /> <statusCode code="completed" /> <effectiveTime value="977984539136" /> < value unit="fL" xsi:type="PQ" value="91.9" /> <referenceRange> <observationRange> <text>82.0-99.0</text> </ observationRange> </referenceRange> </observation> </ component> <component> <observation moodCode="EVN" classCode="OBS"> <templateId root="216.840.1.437686.07.02.22.4.2" /> <id nullFlavor="NA" /> <code codeSystem="local" code="MONOR" displayName= "Monocytes" /> <statusCode code="completed" /> <effectiveTime value="625731636404" /> <value unit="%" xsi:type="PQ" value="12" / > <interpretationCode codeSystem="local" code="*" /> < referenceRange> <observationRange> <text>4-11</text> </observationRange> </referenceRange> </observation> </component> <component> <observation moodCode="EVN" classCode= "OBS"> <templateId root="16.840.1.923744.07.02.22.4.2" /> < id nullFlavor="NA" /> <code codeSystem="local" code="MPV" displayName= "MPV" /> <statusCode code="completed" /> <effectiveTime value= "056162964175" /> <value unit="fL" xsi:type="PQ" value="10.9" /> <referenceRange> <observationRange> <text>9.4-12.3</ text> </observationRange> </referenceRange> </ observation> </component> <component> <observation moodCode= "EVN" classCode="OBS"> <templateId root="10.29.840.1.804352.22.4.2 " /> <id nullFlavor="NA" /> <code codeSystem="local" code= "SEGR" displayName="Neutrophils" /> <statusCode code="completed" /> <effectiveTime value="623206257808" /> <value unit="%" xsi: type="PQ" value="51" /> <referenceRange> <observationRange> <text>51-75</text> </observationRange> </ referenceRange> </observation> </component> <component> <observation moodCode="EVN" classCode="OBS"> <templateId root= "10.29.840.1.732809.07.02.22.4.2" /> <id nullFlavor="NA" /> < code codeSystem="local" code="NRBCA" displayName="Nucleated RBC Automated" /> <statusCode code="completed" /> <effectiveTime value= "" /> <value unit="/100WBC" xsi:type="PQ" value="0.0" /> <referenceRange> <observationRange> <text /> </observationRange> </referenceRange> </observation> </component> <component> <observation moodCode="EVN" classCode= "OBS"> <templateId root="10.29.840.1.606034.07.02.22.4.2" /> < id nullFlavor="NA" /> <code codeSystem="local" code="PLT" displayName= "Platelet Count" /> <statusCode code="completed" /> < effectiveTime value="" /> <value unit="K/uL" xsi:type="PQ" value="218" /> <referenceRange> <observationRange> <text>150-400</text> </observationRange> </ referenceRange> </observation> </component> <component> <observation moodCode="EVN" classCode="OBS"> <templateId root= "10.29.840.1.246903.1022.4.2" /> <id nullFlavor="NA" /> < code codeSystem="local" code="RBC" displayName="RBC" /> <statusCode code="completed" /> <effectiveTime value="" /> < value unit="10*6/uL" xsi:type="PQ" value="5.17" /> <referenceRange> <observationRange> <text>4.60-6.20</text> </ observationRange> </referenceRange> </observation> </ component> <component> <observation moodCode="EVN" classCode="OBS"> <templateId root="16.840.1.627240.10.20.22.4.2" /> <id nullFlavor="NA" /> <code codeSystem="local" code="RDW" displayName="RDW " /> <statusCode code="completed" /> <effectiveTime value= "338725093531" /> <value unit="%" xsi:type="PQ" value="14.2" /> <referenceRange> <observationRange> <text>11.5- 14.5</text> </observationRange> </referenceRange> </ observation> </component> <component> <observation moodCode= "EVN" classCode="OBS"> <templateId root="10.29.840.1.203434.10..22.4.2 " /> <id nullFlavor="NA" /> <code codeSystem="local" code= "WBCIR" displayName="WBC" /> <statusCode code="completed" /> < effectiveTime value="663429774292" /> <value unit="K/uL" xsi:type="PQ" value="9.3" /> <referenceRange> <observationRange> <text>4.8-10.8</text> </observationRange> </ referenceRange> </observation> </component> </organizer> </entry > <entry> <organizer moodCode="EVN" classCode="BATTERY"> <templateId root="10.29.840.1.287692.10.20.22.4.1" /> <id nullFlavor="NA" /> <code codeSystem="local" code="CMP" displayName="Comprehensive Metabolic Panel (CMP)" /> <statusCode code="completed" /> <component> <observation moodCode="EVN" classCode="OBS"> <templateId root= "216.840.1.874834.07.02.22.4.2" /> <id nullFlavor="NA" /> < code codeSystem="local" code="ALB" displayName="Albumin" /> < statusCode code="completed" /> <effectiveTime value="" /> <value unit="g/dL" xsi:type="PQ" value="4.3" /> < referenceRange> <observationRange> <text>3.5-4.8</text> </observationRange> </referenceRange> </observation > </component> <component> <observation moodCode="EVN" classCode="OBS"> <templateId root="10.29.840.1.825643.07.02.22.4.2" /> <id nullFlavor="NA" /> <code codeSystem="local" code="ALP" displayName="Alkaline Phosphatase" /> <statusCode code="completed" /> <effectiveTime value="580858211838" /> <value unit="U/L" xsi: type="PQ" value="109" /> <interpretationCode codeSystem="local" code="* " /> <referenceRange> <observationRange> <text> 26-104</text> </observationRange> </referenceRange> < /observation> </component> <component> <observation moodCode= "EVN" classCode="OBS"> <templateId root="16.840.1.129358.10..4.2 " /> <id nullFlavor="NA" /> <code codeSystem="local" code="ALT " displayName="ALT (SGPT)" /> <statusCode code="completed" /> <effectiveTime value="" /> <value unit="U/L" xsi:type="PQ" value="113" /> <interpretationCode codeSystem="local" code="*" /> <referenceRange> <observationRange> <text>17-63</ text> </observationRange> </referenceRange> </ observation> </component> <component> <observation moodCode= "EVN" classCode="OBS"> <templateId root="10.29.840.1.998929.22.4.2 " /> <id nullFlavor="NA" /> <code codeSystem="local" code= "AGAP" displayName="Anion Gap" /> <statusCode code="completed" /> <effectiveTime value="" /> <value unit="mEq/L" xsi: type="PQ" value="10" /> <referenceRange> <observationRange> <text>3-20</text> </observationRange> </ referenceRange> </observation> </component> <component> <observation moodCode="EVN" classCode="OBS"> <templateId root= "10.29.840.1.149957..22.4.2" /> <id nullFlavor="NA" /> < code codeSystem="local" code="AST" displayName="AST (SGOT)" /> < statusCode code="completed" /> <effectiveTime value="" /> <value unit="U/L" xsi:type="PQ" value="94" /> < interpretationCode codeSystem="local" code="*" /> <referenceRange> <observationRange> <text>15-41</text> </ observationRange> </referenceRange> </observation> </ component> <component> <observation moodCode="EVN" classCode="OBS"> <templateId root="10.29.840.1.214573.07.02.22.4.2" /> <id nullFlavor="NA" /> <code codeSystem="local" code="BILIT" displayName= "Bilirubin Total" /> <statusCode code="completed" /> < effectiveTime value="" /> <value unit="mg/dL" xsi:type="PQ " value="0.6" /> <referenceRange> <observationRange> <text>0.2-1.2</text> </observationRange> </ referenceRange> </observation> </component> <component> <observation moodCode="EVN" classCode="OBS"> <templateId root= "216.840.1.476983.07.02.22.4.2" /> <id nullFlavor="NA" /> < code codeSystem="local" code="BUN" displayName="BUN" /> <statusCode code="completed" /> <effectiveTime value="" /> < value unit="mg/dL" xsi:type="PQ" value="35" /> <interpretationCode codeSystem="local" code="*" /> <referenceRange> < observationRange> <text>4-20</text> </observationRange> </referenceRange> </observation> </component> < component> <observation moodCode="EVN" classCode="OBS"> < templateId root="216.840.1.842012.07.02.22.4.2" /> <id nullFlavor="NA " /> <code codeSystem="local" code="CA" displayName="Calcium" /> <statusCode code="completed" /> <effectiveTime value=" " /> <value unit="mg/dL" xsi:type="PQ" value="9.7" /> < referenceRange> <observationRange> <text>8.6-10.0</text > </observationRange> </referenceRange> </observation > </component> <component> <observation moodCode="EVN" classCode="OBS"> <templateId root="216.840.1.405308.10.22.4.2" /> <id nullFlavor="NA" /> <code codeSystem="local" code="CL" displayName="Chloride" /> <statusCode code="completed" /> < effectiveTime value="" /> <value unit="mEq/L" xsi:type="PQ " value="98" /> <interpretationCode codeSystem="local" code="*" /> <referenceRange> <observationRange> <text>99-109</ text> </observationRange> </referenceRange> </ observation> </component> <component> <observation moodCode= "EVN" classCode="OBS"> <templateId root="10.29.840.1.004090.07.02.22.4.2 " /> <id nullFlavor="NA" /> <code codeSystem="local" code="CO2 " displayName="CO2" /> <statusCode code="completed" /> < effectiveTime value="" /> <value unit="mEq/L" xsi:type="PQ " value="24" /> <referenceRange> <observationRange> <text>22-32</text> </observationRange> </ referenceRange> </observation> </component> <component> <observation moodCode="EVN" classCode="OBS"> <templateId root= "16.840.1.735636.10.20.22.4.2" /> <id nullFlavor="NA" /> < code codeSystem="local" code="CREAT" displayName="Creatinine" /> < statusCode code="completed" /> <effectiveTime value="" /> <value unit="mg/dL" xsi:type="PQ" value="1.11" /> < referenceRange> <observationRange> <text>0.64-1.27</text > </observationRange> </referenceRange> </observation > </component> <component> <observation moodCode="EVN" classCode="OBS"> <templateId root="10.29.840.1.915054.10.22.4.2" /> <id nullFlavor="NA" /> <code codeSystem="local" code="GLOB" displayName="Globulin" /> <statusCode code="completed" /> < effectiveTime value="148242889383" /> <value unit="g/dL" xsi:type="PQ" value="4.0" /> <referenceRange> <observationRange> <text>1.9-4.3</text> </observationRange> </ referenceRange> </observation> </component> <component> <observation moodCode="EVN" classCode="OBS"> <templateId root= "840.1.188945.07.02.22.4.2" /> <id nullFlavor="NA" /> < code codeSystem="local" code="GLU" displayName="Glucose" /> < statusCode code="completed" /> <effectiveTime value="391200291294" /> <value unit="mg/dL" xsi:type="PQ" value="84" /> < referenceRange> <observationRange> <text>70-100</text> </observationRange> </referenceRange> </observation> </component> <component> <observation moodCode="EVN" classCode ="OBS"> <templateId root="840.1.949160.10.4.2" /> < id nullFlavor="NA" /> <code codeSystem="local" code="K" displayName= "Potassium" /> <statusCode code="completed" /> <effectiveTime value="163591842579" /> <value unit="mEq/L" xsi:type="PQ" value="5.0" / > <referenceRange> <observationRange> <text>3.6 -5.1</text> </observationRange> </referenceRange> </ observation> </component> <component> <observation moodCode= "EVN" classCode="OBS"> <templateId root="216.840.1.305931.10..22.4.2 " /> <id nullFlavor="NA" /> <code codeSystem="local" code="TP " displayName="Protein" /> <statusCode code="completed" /> < effectiveTime value="794093259742" /> <value unit="g/dL" xsi:type="PQ" value="8.3" /> <interpretationCode codeSystem="local" code="*" /> <referenceRange> <observationRange> <text>6.1-7.9</ text> </observationRange> </referenceRange> </ observation> </component> <component> <observation moodCode= "EVN" classCode="OBS"> <templateId root="216.840.1.069053.10..22.4.2 " /> <id nullFlavor="NA" /> <code codeSystem="local" code="NA " displayName="Sodium" /> <statusCode code="completed" /> < effectiveTime value="419161499212" /> <value unit="mEq/L" xsi:type="PQ " value="132" /> <interpretationCode codeSystem="local" code="*" /> <referenceRange> <observationRange> <text>136-144 </text> </observationRange> </referenceRange> </ observation> </component> </organizer> </entry> <entry> <organizer moodCode="EVN" classCode="BATTERY"> <templateId root= "2.16.840.1.861417.10.22.4.1" /> <id nullFlavor="NA" /> <code codeSystem="local" code="GFR" displayName="eGFR" /> <statusCode code= "completed" /> <component> <observation moodCode="EVN" classCode= "OBS"> <templateId root="10.29.840.1.297641.07.02.22.4.2" /> < id nullFlavor="NA" /> <code codeSystem="local" code="GFR" displayName= "eGFR" /> <statusCode code="completed" /> <effectiveTime value ="740077755505" /> <value unit="mL/min" xsi:type="PQ" value=">60" / > <referenceRange> <observationRange> <text>&gt ;60</text> </observationRange> </referenceRange> </ observation> </component> </organizer> </entry> <entry> <organizer moodCode="EVN" classCode="BATTERY"> <templateId root= "10.29.840.1.566603.07.02.22.4.1" /> <id nullFlavor="NA" /> <code codeSystem="local" code="TROP" displayName="Troponin" /> <statusCode code= "completed" /> <component> <observation moodCode="EVN" classCode= "OBS"> <templateId root="216.840.1.867254.1022.4.2" /> < id nullFlavor="NA" /> <code codeSystem="local" code="TROP" displayName= "Troponin" /> <statusCode code="completed" /> <effectiveTime value="512295270025" /> <value unit="ng/mL" xsi:type="PQ" value="< 0.05" /> <referenceRange> <observationRange> < text><0.06</text> </observationRange> </referenceRange> </observation> </component> </organizer> </entry> <entry> < organizer moodCode="EVN" classCode="BATTERY"> <templateId root= "10.29.840.1.686170.10..22.4.1" /> <id nullFlavor="NA" /> <code codeSystem="local" code="BNP" displayName="B-Type Natriuretic Peptide" /> < statusCode code="completed" /> <component> <observation moodCode= "EVN" classCode="OBS"> <templateId root="840.1.531883.07.02.22.4.2 " /> <id nullFlavor="NA" /> <code codeSystem="local" code="BNP " displayName="B-Type Natriuretic Peptide" /> <statusCode code= "completed" /> <effectiveTime value="451933955005" /> <value unit="pg/mL" xsi:type="PQ" value="46" /> <referenceRange> < observationRange> <text>0-99</text> </observationRange> </referenceRange> </observation> </component> </ organizer> </entry> <entry> <organizer moodCode="EVN" classCode="BATTERY"> <templateId root="840.1.819141.07.02.22.4.1" /> <id nullFlavor= "NA" /> <code codeSystem="local" code="LACTN" displayName="Lactic Acid NPT " /> <statusCode code="completed" /> <component> <observation moodCode="EVN" classCode="OBS"> <templateId root= "840.1.879395.10..22.4.2" /> <id nullFlavor="NA" /> < code codeSystem="local" code="LACTN" displayName="Lactic Acid NPT" /> < statusCode code="completed" /> <effectiveTime value="558112254199" /> <value unit="mEq/L" xsi:type="PQ" value="1.5" /> < referenceRange> <observationRange> <text>0.5-2.2</text> </observationRange> </referenceRange> </observation > </component> </organizer> </entry> <entry> <organizer moodCode= "EVN" classCode="BATTERY"> <templateId root="10.29.840.1.367837.10..22.4.1 " /> <id nullFlavor="NA" /> <code codeSystem="local" code="ABGRT" displayName="Blood Gases, Arterial (RT)" /> <statusCode code="completed" / > <component> <observation moodCode="EVN" classCode="OBS"> <templateId root="10.29.840.1.194598.10..22.4.2" /> <id nullFlavor="NA " /> <code codeSystem="local" code="YNES" displayName="Arterial Base Excess" /> <statusCode code="completed" /> <effectiveTime value="971397286961" /> <value unit="NA" xsi:type="PQ" value="-3" /> <interpretationCode codeSystem="local" code="*" /> < referenceRange> <observationRange> <text>0-2</text> </observationRange> </referenceRange> </observation> </component> <component> <observation moodCode="EVN" classCode= "OBS"> <templateId root="10.29.840.1.041683.10..22.4.2" /> < id nullFlavor="NA" /> <code codeSystem="local" code="AHCO3" displayName ="Arterial Bicarbonate" /> <statusCode code="completed" /> < effectiveTime value="814022048895" /> <value unit="mEq/L" xsi:type="PQ " value="21" /> <interpretationCode codeSystem="local" code="*" /> <referenceRange> <observationRange> <text>22-26</ text> </observationRange> </referenceRange> </ observation> </component> <component> <observation moodCode= "EVN" classCode="OBS"> <templateId root="2.16.840.1.166823.10.20.22.4.2 " /> <id nullFlavor="NA" /> <code codeSystem="local" code= "AOSAT" displayName="Arterial O2 Saturation" /> <statusCode code= "completed" /> <effectiveTime value="692136605416" /> <value unit="%" xsi:type="PQ" value="91.5" /> <referenceRange> <observationRange> <text>90.0-97.0</text> </ observationRange> </referenceRange> </observation> </ component> <component> <observation moodCode="EVN" classCode="OBS"> <templateId root="2.16.840.1.884306.10.20.22.4.2" /> <id nullFlavor="NA" /> <code codeSystem="local" code="APCO2" displayName= "Arterial PCO2" /> <statusCode code="completed" /> < effectiveTime value="370549393747" /> <value unit="mmHg" xsi:type="PQ" value="35" /> <referenceRange> <observationRange> <text>35-45</text> </observationRange> </referenceRange > </observation> </component> <component> <observation moodCode="EVN" classCode="OBS"> <templateId root= "2.16.840.1.150154.10.20.22.4.2" /> <id nullFlavor="NA" /> < code codeSystem="local" code="APH" displayName="Arterial PH" /> < statusCode code="completed" /> <effectiveTime value="120282599689" /> <value unit="NA" xsi:type="PQ" value="7.40" /> <referenceRange > <observationRange> <text>7.35-7.45</text> < /observationRange> </referenceRange> </observation> </ component> <component> <observation moodCode="EVN" classCode="OBS"> <templateId root="10.29.840.1.191249.10...4.2" /> <id nullFlavor="NA" /> <code codeSystem="local" code="APO2" displayName= "Arterial PO2" /> <statusCode code="completed" /> < effectiveTime value="047491433988" /> <value unit="mmHg" xsi:type="PQ" value="63" /> <interpretationCode codeSystem="local" code="*" /> <referenceRange> <observationRange> <text>80-100</ text> </observationRange> </referenceRange> </ observation> </component> <component> <observation moodCode= "EVN" classCode="OBS"> <templateId root="10.29.840.1.159086.10..22.4.2 " /> <id nullFlavor="NA" /> <code codeSystem="local" code= "AFLOW" displayName="Arterial LPM" /> <statusCode code="completed" /> <effectiveTime value="148335715042" /> <value unit="L/min" xsi :type="PQ" value="3.0" /> <referenceRange> <observationRange > <text /> </observationRange> </referenceRange > </observation> </component> <component> <observation moodCode="EVN" classCode="OBS"> <templateId root= "840.1.652943.07.02.22.4.2" /> <id nullFlavor="NA" /> < code codeSystem="local" code="AO2PN" displayName="O2 Panel" /> < statusCode code="completed" /> <effectiveTime value="312873400784" /> <value unit="" xsi:type="PQ" value="nc" /> <referenceRange> <observationRange> <text /> </observationRange > </referenceRange> </observation> </component> < component> <observation moodCode="EVN" classCode="OBS"> < templateId root="840.1.207965.07.02.22.4.2" /> <id nullFlavor="NA " /> <code codeSystem="local" code="ASITE" displayName="Spec Site" /> <statusCode code="completed" /> <effectiveTime value= "948185651732" /> <value unit="" xsi:type="PQ" value="A. radialis l." / > <referenceRange> <observationRange> <text /> </observationRange> </referenceRange> </observation > </component> </organizer> </entry> <entry> <organizer moodCode= "EVN" classCode="BATTERY"> <templateId root="840.1.530810.07.02.22.4.1 " /> <id nullFlavor="NA" /> <code codeSystem="local" code="UA" displayName="Urinalysis with reflex microscopic" /> <statusCode code= "completed" /> <component> <observation moodCode="EVN" classCode= "OBS"> <templateId root="840.1.451806.10..22.4.2" /> < id nullFlavor="NA" /> <code codeSystem="local" code="UAPP" displayName= "Appearance" /> <statusCode code="completed" /> < effectiveTime value="403563613141" /> <value unit="NA" xsi:type="PQ" value="Clear" /> <referenceRange> <observationRange> <text /> </observationRange> </referenceRange> </observation> </component> <component> <observation moodCode ="EVN" classCode="OBS"> <templateId root= "216.840.1.237828.07.02.22.4.2" /> <id nullFlavor="NA" /> < code codeSystem="local" code="UBIL" displayName="Bilirubin" /> < statusCode code="completed" /> <effectiveTime value="" /> <value unit="NA" xsi:type="PQ" value="Negative" /> < referenceRange> <observationRange> <text>Negative</text > </observationRange> </referenceRange> </observation > </component> <component> <observation moodCode="EVN" classCode="OBS"> <templateId root="216.840.1.832677...4.2" /> <id nullFlavor="NA" /> <code codeSystem="local" code="UBLD" displayName="Blood" /> <statusCode code="completed" /> < effectiveTime value="367168944801" /> <value unit="NA" xsi:type="PQ" value="Negative" /> <referenceRange> <observationRange> <text>Negative</text> </observationRange> </ referenceRange> </observation> </component> <component> <observation moodCode="EVN" classCode="OBS"> <templateId root= "216.840.1.462397.10.4.2" /> <id nullFlavor="NA" /> < code codeSystem="local" code="UCOLR" displayName="Color" /> < statusCode code="completed" /> <effectiveTime value="576267408948" /> <value unit="NA" xsi:type="PQ" value="Yellow" /> < referenceRange> <observationRange> <text /> < /observationRange> </referenceRange> </observation> </ component> <component> <observation moodCode="EVN" classCode="OBS"> <templateId root="16.840.1.724827.07.02.22.4.2" /> <id nullFlavor="NA" /> <code codeSystem="local" code="UGLU" displayName= "Glucose, Urine" /> <statusCode code="completed" /> < effectiveTime value="986745919766" /> <value unit="" xsi:type="PQ" value="Negative" /> <referenceRange> <observationRange> <text>Negative</text> </observationRange> </ referenceRange> </observation> </component> <component> <observation moodCode="EVN" classCode="OBS"> <templateId root= "16.840.1.592837.07.02.22.4.2" /> <id nullFlavor="NA" /> < code codeSystem="local" code="UKET" displayName="Ketones" /> < statusCode code="completed" /> <effectiveTime value="488792769561" /> <value unit="" xsi:type="PQ" value="Negative" /> < referenceRange> <observationRange> <text>Negative</text > </observationRange> </referenceRange> </observation > </component> <component> <observation moodCode="EVN" classCode="OBS"> <templateId root="216.840.1.419024.10.22.4.2" /> <id nullFlavor="NA" /> <code codeSystem="local" code="ULEU" displayName="Leukocyte Esterase" /> <statusCode code="completed" /> <effectiveTime value="385021563924" /> <value unit="NA" xsi:type ="PQ" value="Negative" /> <referenceRange> <observationRange > <text>Negative</text> </observationRange> </ referenceRange> </observation> </component> <component> <observation moodCode="EVN" classCode="OBS"> <templateId root= "16.840.1.451007.22.4.2" /> <id nullFlavor="NA" /> < code codeSystem="local" code="UNIT" displayName="Nitrites" /> < statusCode code="completed" /> <effectiveTime value="877693244458" /> <value unit="NA" xsi:type="PQ" value="Negative" /> < referenceRange> <observationRange> <text>Negative</text > </observationRange> </referenceRange> </observation > </component> <component> <observation moodCode="EVN" classCode="OBS"> <templateId root="16.840.1.035475.1022.4.2" /> <id nullFlavor="NA" /> <code codeSystem="local" code="UPH" displayName="pH" /> <statusCode code="completed" /> < effectiveTime value="405432246453" /> <value unit="NA" xsi:type="PQ" value="5.0" /> <referenceRange> <observationRange> <text>5.0-8.0</text> </observationRange> </ referenceRange> </observation> </component> <component> <observation moodCode="EVN" classCode="OBS"> <templateId root= "16.840.1.129945.10.4.2" /> <id nullFlavor="NA" /> < code codeSystem="local" code="UPRO" displayName="Protein" /> < statusCode code="completed" /> <effectiveTime value="902929292270" /> <value unit="NA" xsi:type="PQ" value="Negative" /> < referenceRange> <observationRange> <text>Negative</text > </observationRange> </referenceRange> </observation > </component> <component> <observation moodCode="EVN" classCode="OBS"> <templateId root="16.840.1.407253.07.02.22.4.2" /> <id nullFlavor="NA" /> <code codeSystem="local" code="USPG" displayName="Specific [place]" /> <statusCode code="completed" /> <effectiveTime value="525761564644" /> <value unit="NA" xsi:type= "PQ" value="1.010" /> <referenceRange> <observationRange> <text>1.003-1.030</text> </observationRange> </ referenceRange> </observation> </component> <component> <observation moodCode="EVN" classCode="OBS"> <templateId root= "10.29.840.1.651228.10.22.4.2" /> <id nullFlavor="NA" /> < code codeSystem="local" code="UTYP" displayName="UA Collection type" /> <statusCode code="completed" /> <effectiveTime value="977375733140" / > <value unit="NA" xsi:type="PQ" value="Webb" /> < referenceRange> <observationRange> <text /> < /observationRange> </referenceRange> </observation> </ component> <component> <observation moodCode="EVN" classCode="OBS"> <templateId root="216.840.1.231007.10.20.22.4.2" /> <id nullFlavor="NA" /> <code codeSystem="local" code="UURO" displayName= "Urobilinogen" /> <statusCode code="completed" /> < effectiveTime value="271118676822" /> <value unit="mg/dL" xsi:type="PQ " value="Negative" /> <referenceRange> <observationRange> <text><1.0</text> </observationRange> </ referenceRange> </observation> </component> </organizer> </entry > <entry> <organizer moodCode="EVN" classCode="BATTERY"> <templateId root="2.16.840.1.033103.10..22.4.1" /> <id nullFlavor="NA" /> <code codeSystem="local" code="UOSMO" displayName="Osmolality, Urine" /> < statusCode code="completed" /> <component> <observation moodCode= "EVN" classCode="OBS"> <templateId root="216.840.1.041994.10..22.4.2 " /> <id nullFlavor="NA" /> <code codeSystem="local" code= "UOSMO" displayName="Osmolality, Urine" /> <statusCode code="completed " /> <effectiveTime value="840236208938" /> <value unit="mOsm/ kg" xsi:type="PQ" value="431" /> <referenceRange> < observationRange> <text>38-1400</text> </ observationRange> </referenceRange> </observation> </ component> </organizer> </entry> <entry> <organizer moodCode="EVN" classCode="BATTERY"> <templateId root="216.840.1.560611.10..4.1" /> <id nullFlavor="NA" /> <code codeSystem="local" code="UDRGH" displayName="Urine Drug Screen" /> <statusCode code="completed" /> < component> <observation moodCode="EVN" classCode="OBS"> < templateId root="216.840.1.844617.10..4.2" /> <id nullFlavor="NA " /> <code codeSystem="local" code="UAMP1" displayName="Amph/Meth/ Ecstasy" /> <statusCode code="completed" /> <effectiveTime value="620545045290" /> <value unit="NA" xsi:type="PQ" value="Negative " /> <referenceRange> <observationRange> <text /> </observationRange> </referenceRange> </ observation> </component> <component> <observation moodCode= "EVN" classCode="OBS"> <templateId root="216.840.1.621367.07.02.22.4.2 " /> <id nullFlavor="NA" /> <code codeSystem="local" code= "UBAR1" displayName="Barbiturates" /> <statusCode code="completed" /> <effectiveTime value="118351874004" /> <value unit="NA" xsi: type="PQ" value="Negative" /> <referenceRange> < observationRange> <text /> </observationRange> </referenceRange> </observation> </component> <component> <observation moodCode="EVN" classCode="OBS"> <templateId root= "216.840.1.930704.07.02.22.4.2" /> <id nullFlavor="NA" /> < code codeSystem="local" code="UBEN1" displayName="Benzodiazepine" /> < statusCode code="completed" /> <effectiveTime value="714265174601" /> <value unit="NA" xsi:type="PQ" value="Negative" /> < referenceRange> <observationRange> <text /> < /observationRange> </referenceRange> </observation> </ component> <component> <observation moodCode="EVN" classCode="OBS"> <templateId root="16.840.1.028713.07.02.22.4.2" /> <id nullFlavor="NA" /> <code codeSystem="local" code="UCAN1" displayName= "Cannabinoid" /> <statusCode code="completed" /> < effectiveTime value="057772212127" /> <value unit="NA" xsi:type="PQ" value="Negative" /> <referenceRange> <observationRange> <text /> </observationRange> </referenceRange> </observation> </component> <component> <observation moodCode="EVN" classCode="OBS"> <templateId root= "16.840.1.328399.07.02.22.4.2" /> <id nullFlavor="NA" /> < code codeSystem="local" code="UCOC1" displayName="Cocaine" /> < statusCode code="completed" /> <effectiveTime value="716793783101" /> <value unit="NA" xsi:type="PQ" value="Negative" /> < referenceRange> <observationRange> <text /> < /observationRange> </referenceRange> </observation> </ component> <component> <observation moodCode="EVN" classCode="OBS"> <templateId root="10.29.840.1.666254.22.4.2" /> <id nullFlavor="NA" /> <code codeSystem="local" code="UMTD1" displayName= "EDDP (Methadone met.)" /> <statusCode code="completed" /> < effectiveTime value="357988853660" /> <value unit="NA" xsi:type="PQ" value="Negative" /> <referenceRange> <observationRange> <text /> </observationRange> </referenceRange> </observation> </component> <component> <observation moodCode="EVN" classCode="OBS"> <templateId root= "216.840.1.429045.10..4.2" /> <id nullFlavor="NA" /> < code codeSystem="local" code="UOPI1" displayName="Opiate" /> < statusCode code="completed" /> <effectiveTime value="401430560424" /> <value unit="NA" xsi:type="PQ" value="Negative" /> < referenceRange> <observationRange> <text /> < /observationRange> </referenceRange> </observation> </ component> <component> <observation moodCode="EVN" classCode="OBS"> <templateId root="2.16.840.1.749526.10..22.4.2" /> <id nullFlavor="NA" /> <code codeSystem="local" code="UPCP1" displayName= "Phencyclidine (PCP)" /> <statusCode code="completed" /> < effectiveTime value="019685228334" /> <value unit="NA" xsi:type="PQ" value="Negative" /> <referenceRange> <observationRange> <text /> </observationRange> </referenceRange> </observation> </component> </organizer> </entry> <entry> < organizer moodCode="EVN" classCode="BATTERY"> <templateId root= "16.840.1.350333.10..4.1" /> <id nullFlavor="NA" /> <code codeSystem="local" code="UNAR" displayName="Sodium Random Urine" /> < statusCode code="completed" /> <component> <observation moodCode= "EVN" classCode="OBS"> <templateId root="840.1.808239.07.02.22.4.2 " /> <id nullFlavor="NA" /> <code codeSystem="local" code= "UNAR" displayName="Sodium Random Urine" /> <statusCode code="completed " /> <effectiveTime value="465432355507" /> <value unit="mEq/L " xsi:type="PQ" value="71" /> <referenceRange> < observationRange> <text /> </observationRange> </referenceRange> </observation> </component> </organizer> </ entry> <entry> <organizer moodCode="EVN" classCode="BATTERY"> < templateId root="840.1.680501.07.02.22.4.1" /> <id nullFlavor="NA" /> <code codeSystem="local" code="UCRER" displayName="Creatinine Random Urine " /> <statusCode code="completed" /> <component> <observation moodCode="EVN" classCode="OBS"> <templateId root= "10.29.840.1.014574.10..4.2" /> <id nullFlavor="NA" /> < code codeSystem="local" code="UCRER" displayName="Creatinine Random Urine" /> <statusCode code="completed" /> <effectiveTime value= "178658318379" /> <value unit="mg/dL" xsi:type="PQ" value="40" /> <referenceRange> <observationRange> <text /> </observationRange> </referenceRange> </observation> </component> </organizer> </entry> <entry> <organizer moodCode="EVN" classCode="BATTERY"> <templateId root="10.29.840.1.807905.10.22.4.1" /> <id nullFlavor="NA" /> <code codeSystem="local" code="UUNR" displayName="Urea Nitrogen Random " /> <statusCode code="completed" /> <component> <observation moodCode="EVN" classCode="OBS"> < templateId root="840.1.957176.07.02.22.4.2" /> <id nullFlavor="NA " /> <code codeSystem="local" code="UUNR" displayName="Urea Nitrogen Random" /> <statusCode code="completed" /> <effectiveTime value="501875225947" /> <value unit="mg/dL" xsi:type="PQ" value="615" / > <referenceRange> <observationRange> <text /> </observationRange> </referenceRange> </observation > </component> </organizer> </entry> <entry> <organizer moodCode= "EVN" classCode="BATTERY"> <templateId root="840.1.530033.1022.4.1 " /> <id nullFlavor="NA" /> <code codeSystem="local" code="ZH089" displayName="Histoplasma Ag, U" /> <statusCode code="completed" /> < component> <observation moodCode="EVN" classCode="OBS"> < templateId root="840.1.829680.10.22.4.2" /> <id nullFlavor="NA " /> <code codeSystem="local" code="Z6514" displayName="Histoplasma Ag , U" /> <statusCode code="completed" /> <effectiveTime value= "399598458036" /> <value unit="NA" xsi:type="PQ" value="Negative" /> <referenceRange> <observationRange> <text> Negative</text> </observationRange> </referenceRange> </observation> </component> <component> <observation moodCode ="EVN" classCode="OBS"> <templateId root= "840.1.394557.10.22.4.2" /> <id nullFlavor="NA" /> < code codeSystem="local" code="Z6515" displayName="Histoplasma Ag, U Value" /> <statusCode code="completed" /> <effectiveTime value= "561387739846" /> <value unit="ng/mL" xsi:type="PQ" value="0.00" /> <referenceRange> <observationRange> <text /> </observationRange> </referenceRange> </observation> </component> </organizer> </entry> <entry> <organizer moodCode="EVN" classCode="BATTERY"> <templateId root="840.1.284743.10..22.4.1" /> <id nullFlavor="NA" /> <code codeSystem="local" code="CMP" displayName ="Comprehensive Metabolic Panel (CMP)" /> <statusCode code="completed" /> <component> <observation moodCode="EVN" classCode="OBS"> < templateId root="840.1.802805.22.4.2" /> <id nullFlavor="NA " /> <code codeSystem="local" code="ALB" displayName="Albumin" /> <statusCode code="completed" /> <effectiveTime value="985745922553 " /> <value unit="g/dL" xsi:type="PQ" value="3.7" /> < referenceRange> <observationRange> <text>3.5-4.8</text> </observationRange> </referenceRange> </observation > </component> <component> <observation moodCode="EVN" classCode="OBS"> <templateId root="216.840.1.161130.10..22.4.2" /> <id nullFlavor="NA" /> <code codeSystem="local" code="ALP" displayName="Alkaline Phosphatase" /> <statusCode code="completed" /> <effectiveTime value="387423316871" /> <value unit="U/L" xsi: type="PQ" value="101" /> <referenceRange> <observationRange > <text>26-104</text> </observationRange> </ referenceRange> </observation> </component> <component> <observation moodCode="EVN" classCode="OBS"> <templateId root= "10.29.840.1.523753.10...4.2" /> <id nullFlavor="NA" /> < code codeSystem="local" code="ALT" displayName="ALT (SGPT)" /> < statusCode code="completed" /> <effectiveTime value="792821893309" /> <value unit="U/L" xsi:type="PQ" value="93" /> < interpretationCode codeSystem="local" code="*" /> <referenceRange> <observationRange> <text>17-63</text> </ observationRange> </referenceRange> </observation> </ component> <component> <observation moodCode="EVN" classCode="OBS"> <templateId root="216.840.1.320518.10..22.4.2" /> <id nullFlavor="NA" /> <code codeSystem="local" code="AGAP" displayName= "Anion Gap" /> <statusCode code="completed" /> <effectiveTime value="442349119378" /> <value unit="mEq/L" xsi:type="PQ" value="9" /> <referenceRange> <observationRange> <text>3-20 </text> </observationRange> </referenceRange> </ observation> </component> <component> <observation moodCode= "EVN" classCode="OBS"> <templateId root="2.16.840.1.125242.10..22.4.2 " /> <id nullFlavor="NA" /> <code codeSystem="local" code="AST " displayName="AST (SGOT)" /> <statusCode code="completed" /> <effectiveTime value="248572420474" /> <value unit="U/L" xsi:type="PQ" value="77" /> <interpretationCode codeSystem="local" code="*" /> <referenceRange> <observationRange> <text>15-41</ text> </observationRange> </referenceRange> </ observation> </component> <component> <observation moodCode= "EVN" classCode="OBS"> <templateId root="216.840.1.486584.10..22.4.2 " /> <id nullFlavor="NA" /> <code codeSystem="local" code= "BILIT" displayName="Bilirubin Total" /> <statusCode code="completed" / > <effectiveTime value="796871229531" /> <value unit="mg/dL" xsi:type="PQ" value="0.7" /> <referenceRange> < observationRange> <text>0.2-1.2</text> </ observationRange> </referenceRange> </observation> </ component> <component> <observation moodCode="EVN" classCode="OBS"> <templateId root="216.840.1.091467.10..22.4.2" /> <id nullFlavor="NA" /> <code codeSystem="local" code="BUN" displayName="BUN " /> <statusCode code="completed" /> <effectiveTime value= "" /> <value unit="mg/dL" xsi:type="PQ" value="38" /> <interpretationCode codeSystem="local" code="*" /> <referenceRange > <observationRange> <text>4-20</text> </ observationRange> </referenceRange> </observation> </ component> <component> <observation moodCode="EVN" classCode="OBS"> <templateId root="10.29.840.1.742738.07.02.22.4.2" /> <id nullFlavor="NA" /> <code codeSystem="local" code="CA" displayName= "Calcium" /> <statusCode code="completed" /> <effectiveTime value="" /> <value unit="mg/dL" xsi:type="PQ" value="9.0" / > <referenceRange> <observationRange> <text>8.6 -10.0</text> </observationRange> </referenceRange> </ observation> </component> <component> <observation moodCode= "EVN" classCode="OBS"> <templateId root="16.840.1.764921.10..22.4.2 " /> <id nullFlavor="NA" /> <code codeSystem="local" code="CL " displayName="Chloride" /> <statusCode code="completed" /> < effectiveTime value="" /> <value unit="mEq/L" xsi:type="PQ " value="96" /> <interpretationCode codeSystem="local" code="*" /> <referenceRange> <observationRange> <text>99-109</ text> </observationRange> </referenceRange> </ observation> </component> <component> <observation moodCode= "EVN" classCode="OBS"> <templateId root="16.840.1.822465.10.20.22.4.2 " /> <id nullFlavor="NA" /> <code codeSystem="local" code="CO2 " displayName="CO2" /> <statusCode code="completed" /> < effectiveTime value="823536330216" /> <value unit="mEq/L" xsi:type="PQ " value="25" /> <referenceRange> <observationRange> <text>22-32</text> </observationRange> </ referenceRange> </observation> </component> <component> <observation moodCode="EVN" classCode="OBS"> <templateId root= "840.1.114614.10...4.2" /> <id nullFlavor="NA" /> < code codeSystem="local" code="CREAT" displayName="Creatinine" /> < statusCode code="completed" /> <effectiveTime value="322523261116" /> <value unit="mg/dL" xsi:type="PQ" value="1.30" /> < interpretationCode codeSystem="local" code="*" /> <referenceRange> <observationRange> <text>0.64-1.27</text> </ observationRange> </referenceRange> </observation> </ component> <component> <observation moodCode="EVN" classCode="OBS"> <templateId root="10.29.840.1.309393.10.20.22.4.2" /> <id nullFlavor="NA" /> <code codeSystem="local" code="GLOB" displayName= "Globulin" /> <statusCode code="completed" /> <effectiveTime value="535933299773" /> <value unit="g/dL" xsi:type="PQ" value="3.5" / > <referenceRange> <observationRange> <text>1.9 -4.3</text> </observationRange> </referenceRange> </ observation> </component> <component> <observation moodCode= "EVN" classCode="OBS"> <templateId root="16.840.1.608912.10.20.22.4.2 " /> <id nullFlavor="NA" /> <code codeSystem="local" code="GLU " displayName="Glucose" /> <statusCode code="completed" /> < effectiveTime value="453734725713" /> <value unit="mg/dL" xsi:type="PQ " value="135" /> <interpretationCode codeSystem="local" code="*" /> <referenceRange> <observationRange> <text>70-100< /text> </observationRange> </referenceRange> </ observation> </component> <component> <observation moodCode= "EVN" classCode="OBS"> <templateId root="16.840.1.168092.10.20.22.4.2 " /> <id nullFlavor="NA" /> <code codeSystem="local" code="K" displayName="Potassium" /> <statusCode code="completed" /> < effectiveTime value="618609968516" /> <value unit="mEq/L" xsi:type="PQ " value="4.8" /> <referenceRange> <observationRange> <text>3.6-5.1</text> </observationRange> </ referenceRange> </observation> </component> <component> <observation moodCode="EVN" classCode="OBS"> <templateId root= "10.29.840.1.460803.10.4.2" /> <id nullFlavor="NA" /> < code codeSystem="local" code="TP" displayName="Protein" /> <statusCode code="completed" /> <effectiveTime value="943256277116" /> < value unit="g/dL" xsi:type="PQ" value="7.2" /> <referenceRange> <observationRange> <text>6.1-7.9</text> </ observationRange> </referenceRange> </observation> </ component> <component> <observation moodCode="EVN" classCode="OBS"> <templateId root="840.1.480994.07.02.22.4.2" /> <id nullFlavor="NA" /> <code codeSystem="local" code="NA" displayName= "Sodium" /> <statusCode code="completed" /> <effectiveTime value="108749137655" /> <value unit="mEq/L" xsi:type="PQ" value="130" / > <interpretationCode codeSystem="local" code="*" /> < referenceRange> <observationRange> <text>136-144</text> </observationRange> </referenceRange> </observation > </component> </organizer> </entry> <entry> <organizer moodCode= "EVN" classCode="BATTERY"> <templateId root="840.1.492552.10.4.1 " /> <id nullFlavor="NA" /> <code codeSystem="local" code="PHOS" displayName="Phosphorus" /> <statusCode code="completed" /> <component > <observation moodCode="EVN" classCode="OBS"> <templateId root= "840.1.098078.07.02.22.4.2" /> <id nullFlavor="NA" /> < code codeSystem="local" code="PHOS" displayName="Phosphorus" /> < statusCode code="completed" /> <effectiveTime value="082833897537" /> <value unit="mg/dL" xsi:type="PQ" value="5.9" /> < interpretationCode codeSystem="local" code="*" /> <referenceRange> <observationRange> <text>2.4-4.7</text> </ observationRange> </referenceRange> </observation> </ component> </organizer> </entry> <entry> <organizer moodCode="EVN" classCode="BATTERY"> <templateId root="216.840.1.085340.07.02.22.4.1" /> <id nullFlavor="NA" /> <code codeSystem="local" code="MG" displayName= "Magnesium" /> <statusCode code="completed" /> <component> < observation moodCode="EVN" classCode="OBS"> <templateId root= "16.840.1.489555.07.02.22.4.2" /> <id nullFlavor="NA" /> < code codeSystem="local" code="MG" displayName="Magnesium" /> < statusCode code="completed" /> <effectiveTime value="110861571741" /> <value unit="mg/dL" xsi:type="PQ" value="1.8" /> < referenceRange> <observationRange> <text>1.8-2.5</text> </observationRange> </referenceRange> </observation > </component> </organizer> </entry> <entry> <organizer moodCode= "EVN" classCode="BATTERY"> <templateId root="216.840.1.724667.07.02.22.4.1 " /> <id nullFlavor="NA" /> <code codeSystem="local" code="LDH" displayName="LDH" /> <statusCode code="completed" /> <component> <observation moodCode="EVN" classCode="OBS"> <templateId root= "16.840.1.188578.07.02.22.4.2" /> <id nullFlavor="NA" /> < code codeSystem="local" code="LDH" displayName="LDH" /> <statusCode code="completed" /> <effectiveTime value="759262290497" /> < value unit="U/L" xsi:type="PQ" value="144" /> <referenceRange> <observationRange> <text>98-192</text> </ observationRange> </referenceRange> </observation> </ component> </organizer> </entry> <entry> <organizer moodCode="EVN" classCode="BATTERY"> <templateId root="10.29.840.1.143246.07.02.22.4.1" /> <id nullFlavor="NA" /> <code codeSystem="local" code="ACETM" displayName="Acetaminophen" /> <statusCode code="completed" /> < component> <observation moodCode="EVN" classCode="OBS"> < templateId root="10.29.840.1.495583.07.02.22.4.2" /> <id nullFlavor="NA " /> <code codeSystem="local" code="ACETM" displayName="Acetaminophen" /> <statusCode code="completed" /> <effectiveTime value= "221715584880" /> <value unit="mcg/mL" xsi:type="PQ" value="<10" /> <referenceRange> <observationRange> <text>10- 30</text> </observationRange> </referenceRange> </ observation> </component> </organizer> </entry> <entry> <organizer moodCode="EVN" classCode="BATTERY"> <templateId root= "10.29.840.1.878147.07.02.22.4.1" /> <id nullFlavor="NA" /> <code codeSystem="local" code="GFR" displayName="eGFR" /> <statusCode code= "completed" /> <component> <observation moodCode="EVN" classCode= "OBS"> <templateId root="840.1.787489.07.02.224.2" /> < id nullFlavor="NA" /> <code codeSystem="local" code="GFR" displayName= "eGFR" /> <statusCode code="completed" /> <effectiveTime value ="748041523627" /> <value unit="mL/min" xsi:type="PQ" value="59" /> <interpretationCode codeSystem="local" code="*" /> < referenceRange> <observationRange> <text>>60</text> </observationRange> </referenceRange> </observation> </component> </organizer> </entry> <entry> <organizer moodCode= "EVN" classCode="BATTERY"> <templateId root="840.1.305862.07.02.224.1 " /> <id nullFlavor="NA" /> <code codeSystem="local" code="OSMO" displayName="Osmolality" /> <statusCode code="completed" /> <component > <observation moodCode="EVN" classCode="OBS"> <templateId root= "10.29.840.1.416370.07.02.22.4.2" /> <id nullFlavor="NA" /> < code codeSystem="local" code="OSMO" displayName="Osmolality" /> < statusCode code="completed" /> <effectiveTime value="317345040960" /> <value unit="mOsm/kg" xsi:type="PQ" value="291" /> < referenceRange> <observationRange> <text>275-300</text> </observationRange> </referenceRange> </observation > </component> </organizer> </entry> <entry> <organizer moodCode= "EVN" classCode="BATTERY"> <templateId root="216.840.1.137631.10..22.4.1 " /> <id nullFlavor="NA" /> <code codeSystem="local" code="CORTA" displayName="Cortisol AM" /> <statusCode code="completed" /> < component> <observation moodCode="EVN" classCode="OBS"> < templateId root="216.840.1.043172.10..22.4.2" /> <id nullFlavor="NA " /> <code codeSystem="local" code="CORTA" displayName="Cortisol AM" / > <statusCode code="completed" /> <effectiveTime value= "734076213556" /> <value unit="ug/dL" xsi:type="PQ" value="6" /> <interpretationCode codeSystem="local" code="*" /> <referenceRange > <observationRange> <text>7-18</text> </ observationRange> </referenceRange> </observation> </ component> </organizer> </entry> <entry> <organizer moodCode="EVN" classCode="BATTERY"> <templateId root="216.840.1.130027.10..22.4.1" /> <id nullFlavor="NA" /> <code codeSystem="local" code="TSH" displayName ="TSH" /> <statusCode code="completed" /> <component> < observation moodCode="EVN" classCode="OBS"> <templateId root= "16.840.1.102605.10..4.2" /> <id nullFlavor="NA" /> < code codeSystem="local" code="TSH" displayName="TSH" /> <statusCode code="completed" /> <effectiveTime value="969179435839" /> < value unit="uIU/mL" xsi:type="PQ" value="1.69" /> <referenceRange> <observationRange> <text>0.35-4.94</text> </ observationRange> </referenceRange> </observation> </ component> </organizer> </entry> <entry> <organizer moodCode="EVN" classCode="BATTERY"> <templateId root="216.840.1.244464.10..4.1" /> <id nullFlavor="NA" /> <code codeSystem="local" code="HEP4" displayName="Hepatitis Panel" /> <statusCode code="completed" /> < component> <observation moodCode="EVN" classCode="OBS"> < templateId root="216.840.1.860987.10..22.4.2" /> <id nullFlavor="NA " /> <code codeSystem="local" code="HAABM" displayName="Hepatitis A Antibody IGM" /> <statusCode code="completed" /> < effectiveTime value="312632729712" /> <value unit="" xsi:type="PQ" value="Negative" /> <referenceRange> <observationRange> <text /> </observationRange> </referenceRange> </observation> </component> <component> <observation moodCode="EVN" classCode="OBS"> <templateId root= "16.840.1.182504.07.02.22.4.2" /> <id nullFlavor="NA" /> < code codeSystem="local" code="HBSAG" displayName="Hepatitis B Surface Antigen" / > <statusCode code="completed" /> <effectiveTime value= "699770688204" /> <value unit="" xsi:type="PQ" value="Negative" /> <referenceRange> <observationRange> <text /> </observationRange> </referenceRange> </observation> </component> </organizer> </entry> <entry> <organizer moodCode="EVN" classCode="BATTERY"> <templateId root="216.840.1.566648.10..4.1" /> <id nullFlavor="NA" /> <code codeSystem="local" code="CBCWD" displayName="CBC With Platelet and Differential" /> <statusCode code= "completed" /> <component> <observation moodCode="EVN" classCode= "OBS"> <templateId root="216.840.1.499779.10..22.4.2" /> < id nullFlavor="NA" /> <code codeSystem="local" code="ABASR" displayName ="Absolute Basophils" /> <statusCode code="completed" /> < effectiveTime value="570294423869" /> <value unit="10*3/uL" xsi:type= "PQ" value="0.00" /> <referenceRange> <observationRange> <text>0.00-0.20</text> </observationRange> </ referenceRange> </observation> </component> <component> <observation moodCode="EVN" classCode="OBS"> <templateId root= "216.840.1.266771.10..22.4.2" /> <id nullFlavor="NA" /> < code codeSystem="local" code="AEOSR" displayName="Absolute Eosinophils" /> <statusCode code="completed" /> <effectiveTime value="386257295680 " /> <value unit="10*3/uL" xsi:type="PQ" value="0.00" /> < referenceRange> <observationRange> <text>0.00-0.50</text > </observationRange> </referenceRange> </observation > </component> <component> <observation moodCode="EVN" classCode="OBS"> <templateId root="216.840.1.653736.10.20.22.4.2" /> <id nullFlavor="NA" /> <code codeSystem="local" code="ALYMR" displayName="Absolute Lymphocytes" /> <statusCode code="completed" /> <effectiveTime value="808209874238" /> <value unit="10*3/uL" xsi:type="PQ" value="0.86" /> <referenceRange> < observationRange> <text>0.80-3.30</text> </ observationRange> </referenceRange> </observation> </ component> <component> <observation moodCode="EVN" classCode="OBS"> <templateId root="2.840.1.634732.10.20.22.4.2" /> <id nullFlavor="NA" /> <code codeSystem="local" code="AMONR" displayName= "Absolute Monocytes" /> <statusCode code="completed" /> < effectiveTime value="108262461854" /> <value unit="10*3/uL" xsi:type= "PQ" value="0.53" /> <referenceRange> <observationRange> <text>0.30-1.00</text> </observationRange> </ referenceRange> </observation> </component> <component> <observation moodCode="EVN" classCode="OBS"> <templateId root= "2.16.840.1.804819.10.20.22.4.2" /> <id nullFlavor="NA" /> < code codeSystem="local" code="ASEGR" displayName="Absolute Neutrophils" /> <statusCode code="completed" /> <effectiveTime value="915313518241 " /> <value unit="10*3/uL" xsi:type="PQ" value="7.71" /> < interpretationCode codeSystem="local" code="*" /> <referenceRange> <observationRange> <text>1.90-7.00</text> </ observationRange> </referenceRange> </observation> </ component> <component> <observation moodCode="EVN" classCode="OBS"> <templateId root="16.840.1.885692.1022.4.2" /> <id nullFlavor="NA" /> <code codeSystem="local" code="BASOR" displayName= "Basophils" /> <statusCode code="completed" /> <effectiveTime value="" /> <value unit="%" xsi:type="PQ" value="0" /> <referenceRange> <observationRange> <text>0-2< /text> </observationRange> </referenceRange> </ observation> </component> <component> <observation moodCode= "EVN" classCode="OBS"> <templateId root="16.840.1.319007.10.20.22.4.2 " /> <id nullFlavor="NA" /> <code codeSystem="local" code= "EOSR" displayName="Eosinophils" /> <statusCode code="completed" /> <effectiveTime value="436401110671" /> <value unit="%" xsi: type="PQ" value="0" /> <referenceRange> <observationRange> <text>0-4</text> </observationRange> </ referenceRange> </observation> </component> <component> <observation moodCode="EVN" classCode="OBS"> <templateId root= "10.29.840.1.166551.10.20.22.4.2" /> <id nullFlavor="NA" /> < code codeSystem="local" code="HCT" displayName="HCT" /> <statusCode code="completed" /> <effectiveTime value="891122051486" /> < value unit="%" xsi:type="PQ" value="39.8" /> <interpretationCode codeSystem="local" code="*" /> <referenceRange> < observationRange> <text>42.0-52.0</text> </ observationRange> </referenceRange> </observation> </ component> <component> <observation moodCode="EVN" classCode="OBS"> <templateId root="10.29.840.1.339258.10.22.4.2" /> <id nullFlavor="NA" /> <code codeSystem="local" code="HGB" displayName="HGB " /> <statusCode code="completed" /> <effectiveTime value= "607096770902" /> <value unit="g/dL" xsi:type="PQ" value="13.8" /> <interpretationCode codeSystem="local" code="*" /> < referenceRange> <observationRange> <text>14.0-18.0</text > </observationRange> </referenceRange> </observation > </component> <component> <observation moodCode="EVN" classCode="OBS"> <templateId root="10.29.840.1.886529.10.20.22.4.2" /> <id nullFlavor="NA" /> <code codeSystem="local" code="IMGA" displayName="Immature Granulocytes" /> <statusCode code="completed" /> <effectiveTime value="455354610989" /> <value unit="%" xsi:type="PQ" value="0.5" /> <referenceRange> < observationRange> <text>0.0-1.0</text> </ observationRange> </referenceRange> </observation> </ component> <component> <observation moodCode="EVN" classCode="OBS"> <templateId root="216.840.1.662463.10.20.22.4.2" /> <id nullFlavor="NA" /> <code codeSystem="local" code="LYMPR" displayName= "Lymphocytes" /> <statusCode code="completed" /> < effectiveTime value="926337655807" /> <value unit="%" xsi:type="PQ " value="9" /> <interpretationCode codeSystem="local" code="*" /> <referenceRange> <observationRange> <text>20-46</ text> </observationRange> </referenceRange> </ observation> </component> <component> <observation moodCode= "EVN" classCode="OBS"> <templateId root="216.840.1.852805.10.20.22.4.2 " /> <id nullFlavor="NA" /> <code codeSystem="local" code="MCH " displayName="MCH" /> <statusCode code="completed" /> < effectiveTime value="374536089006" /> <value unit="pg" xsi:type="PQ" value="30.7" /> <referenceRange> <observationRange> <text>27.0-32.0</text> </observationRange> </ referenceRange> </observation> </component> <component> <observation moodCode="EVN" classCode="OBS"> <templateId root= "16.840.1.192846.10.2022.4.2" /> <id nullFlavor="NA" /> < code codeSystem="local" code="MCHC" displayName="MCHC" /> <statusCode code="completed" /> <effectiveTime value="039437080548" /> < value unit="g/dL" xsi:type="PQ" value="34.7" /> <referenceRange> <observationRange> <text>32.0-36.0</text> </ observationRange> </referenceRange> </observation> </ component> <component> <observation moodCode="EVN" classCode="OBS"> <templateId root="10.29.840.1.788260.22.4.2" /> <id nullFlavor="NA" /> <code codeSystem="local" code="MCV" displayName="MCV " /> <statusCode code="completed" /> <effectiveTime value= "729898090145" /> <value unit="fL" xsi:type="PQ" value="88.4" /> <referenceRange> <observationRange> <text>82.0-99.0< /text> </observationRange> </referenceRange> </ observation> </component> <component> <observation moodCode= "EVN" classCode="OBS"> <templateId root="10.29.840.1.289690.10.2022.4.2 " /> <id nullFlavor="NA" /> <code codeSystem="local" code= "MONOR" displayName="Monocytes" /> <statusCode code="completed" /> <effectiveTime value="374707935090" /> <value unit="%" xsi: type="PQ" value="6" /> <referenceRange> <observationRange> <text>4-11</text> </observationRange> </ referenceRange> </observation> </component> <component> <observation moodCode="EVN" classCode="OBS"> <templateId root= "216.840.1.591410.07.02.22.4.2" /> <id nullFlavor="NA" /> < code codeSystem="local" code="MPV" displayName="MPV" /> <statusCode code="completed" /> <effectiveTime value="" /> < value unit="fL" xsi:type="PQ" value="11.1" /> <referenceRange> <observationRange> <text>9.4-12.3</text> </ observationRange> </referenceRange> </observation> </ component> <component> <observation moodCode="EVN" classCode="OBS"> <templateId root="10.29.840.1.504752.07.02.224.2" /> <id nullFlavor="NA" /> <code codeSystem="local" code="SEGR" displayName= "Neutrophils" /> <statusCode code="completed" /> < effectiveTime value="" /> <value unit="%" xsi:type="PQ " value="84" /> <interpretationCode codeSystem="local" code="*" /> <referenceRange> <observationRange> <text>51-75</ text> </observationRange> </referenceRange> </ observation> </component> <component> <observation moodCode= "EVN" classCode="OBS"> <templateId root="10.29.840.1.133857.07.02.22.4.2 " /> <id nullFlavor="NA" /> <code codeSystem="local" code= "NRBCA" displayName="Nucleated RBC Automated" /> <statusCode code= "completed" /> <effectiveTime value="927234929905" /> <value unit="/100WBC" xsi:type="PQ" value="0.0" /> <referenceRange> <observationRange> <text /> </observationRange> </referenceRange> </observation> </component> <component> <observation moodCode="EVN" classCode="OBS"> <templateId root= "10.29.840.1.135882.10.20.22.4.2" /> <id nullFlavor="NA" /> < code codeSystem="local" code="PLT" displayName="Platelet Count" /> < statusCode code="completed" /> <effectiveTime value="070868707252" /> <value unit="K/uL" xsi:type="PQ" value="199" /> < referenceRange> <observationRange> <text>150-400</text> </observationRange> </referenceRange> </observation > </component> <component> <observation moodCode="EVN" classCode="OBS"> <templateId root="10.29.840.1.556539.10..22.4.2" /> <id nullFlavor="NA" /> <code codeSystem="local" code="RBC" displayName="RBC" /> <statusCode code="completed" /> < effectiveTime value="744421929879" /> <value unit="10*6/uL" xsi:type= "PQ" value="4.50" /> <interpretationCode codeSystem="local" code="*" / > <referenceRange> <observationRange> <text> 4.60-6.20</text> </observationRange> </referenceRange> </observation> </component> <component> <observation moodCode="EVN" classCode="OBS"> <templateId root= "10.29.840.1.478901.10.20.22.4.2" /> <id nullFlavor="NA" /> < code codeSystem="local" code="RDW" displayName="RDW" /> <statusCode code="completed" /> <effectiveTime value="821016790612" /> < value unit="%" xsi:type="PQ" value="13.3" /> <referenceRange> <observationRange> <text>11.5-14.5</text> </ observationRange> </referenceRange> </observation> </ component> <component> <observation moodCode="EVN" classCode="OBS"> <templateId root="840.1.991021.07.02.22.4.2" /> <id nullFlavor="NA" /> <code codeSystem="local" code="WBCIR" displayName= "WBC" /> <statusCode code="completed" /> <effectiveTime value= "747354915639" /> <value unit="K/uL" xsi:type="PQ" value="9.2" /> <referenceRange> <observationRange> <text>4.8-10.8< /text> </observationRange> </referenceRange> </ observation> </component> </organizer> </entry> <entry> <organizer moodCode="EVN" classCode="BATTERY"> <templateId root= "10.29.840.1.196093.07.02.22.4.1" /> <id nullFlavor="NA" /> <code codeSystem="local" code="PHOS" displayName="Phosphorus" /> <statusCode code ="completed" /> <component> <observation moodCode="EVN" classCode= "OBS"> <templateId root="10.29.840.1.010400.22.4.2" /> < id nullFlavor="NA" /> <code codeSystem="local" code="PHOS" displayName= "Phosphorus" /> <statusCode code="completed" /> < effectiveTime value="545530682422" /> <value unit="mg/dL" xsi:type="PQ " value="5.2" /> <interpretationCode codeSystem="local" code="*" /> <referenceRange> <observationRange> <text>2.4-4.7 </text> </observationRange> </referenceRange> </ observation> </component> </organizer> </entry> <entry> <organizer moodCode="EVN" classCode="BATTERY"> <templateId root= "16.840.1.673051.10..22.4.1" /> <id nullFlavor="NA" /> <code codeSystem="local" code="MG" displayName="Magnesium" /> <statusCode code= "completed" /> <component> <observation moodCode="EVN" classCode= "OBS"> <templateId root="10.29.840.1.772299.10..22.4.2" /> < id nullFlavor="NA" /> <code codeSystem="local" code="MG" displayName= "Magnesium" /> <statusCode code="completed" /> <effectiveTime value="531161935156" /> <value unit="mg/dL" xsi:type="PQ" value="1.9" / > <referenceRange> <observationRange> <text>1.8 -2.5</text> </observationRange> </referenceRange> </ observation> </component> </organizer> </entry> <entry> <organizer moodCode="EVN" classCode="BATTERY"> <templateId root= "10.29.840.1.202549.10..22.4.1" /> <id nullFlavor="NA" /> <code codeSystem="local" code="CMP" displayName="Comprehensive Metabolic Panel (CMP)" /> <statusCode code="completed" /> <component> <observation moodCode="EVN" classCode="OBS"> <templateId root= "16.840.1.899583.10..4.2" /> <id nullFlavor="NA" /> < code codeSystem="local" code="ALB" displayName="Albumin" /> < statusCode code="completed" /> <effectiveTime value="704539833141" /> <value unit="g/dL" xsi:type="PQ" value="3.6" /> < referenceRange> <observationRange> <text>3.5-4.8</text> </observationRange> </referenceRange> </observation > </component> <component> <observation moodCode="EVN" classCode="OBS"> <templateId root="10.29.840.1.307080.07.02.22.4.2" /> <id nullFlavor="NA" /> <code codeSystem="local" code="ALP" displayName="Alkaline Phosphatase" /> <statusCode code="completed" /> <effectiveTime value="805685292854" /> <value unit="U/L" xsi: type="PQ" value="96" /> <referenceRange> <observationRange> <text>26-104</text> </observationRange> </ referenceRange> </observation> </component> <component> <observation moodCode="EVN" classCode="OBS"> <templateId root= "10.29.840.1.227535.10..22.4.2" /> <id nullFlavor="NA" /> < code codeSystem="local" code="ALT" displayName="ALT (SGPT)" /> < statusCode code="completed" /> <effectiveTime value="412251351118" /> <value unit="U/L" xsi:type="PQ" value="77" /> < interpretationCode codeSystem="local" code="*" /> <referenceRange> <observationRange> <text>17-63</text> </ observationRange> </referenceRange> </observation> </ component> <component> <observation moodCode="EVN" classCode="OBS"> <templateId root="10.29.840.1.779725.10..22.4.2" /> <id nullFlavor="NA" /> <code codeSystem="local" code="AGAP" displayName= "Anion Gap" /> <statusCode code="completed" /> <effectiveTime value="399692116235" /> <value unit="mEq/L" xsi:type="PQ" value="10" / > <referenceRange> <observationRange> <text>3- 20</text> </observationRange> </referenceRange> </ observation> </component> <component> <observation moodCode= "EVN" classCode="OBS"> <templateId root="10.29.840.1.655390.10...4.2 " /> <id nullFlavor="NA" /> <code codeSystem="local" code="AST " displayName="AST (SGOT)" /> <statusCode code="completed" /> <effectiveTime value="069248504572" /> <value unit="U/L" xsi:type="PQ" value="49" /> <interpretationCode codeSystem="local" code="*" /> <referenceRange> <observationRange> <text>15-41</ text> </observationRange> </referenceRange> </ observation> </component> <component> <observation moodCode= "EVN" classCode="OBS"> <templateId root="10.29.840.1.007263.10.20.22.4.2 " /> <id nullFlavor="NA" /> <code codeSystem="local" code= "BILIT" displayName="Bilirubin Total" /> <statusCode code="completed" / > <effectiveTime value="718660419648" /> <value unit="mg/dL" xsi:type="PQ" value="0.5" /> <referenceRange> < observationRange> <text>0.2-1.2</text> </ observationRange> </referenceRange> </observation> </ component> <component> <observation moodCode="EVN" classCode="OBS"> <templateId root="216.840.1.117325.10.20.22.4.2" /> <id nullFlavor="NA" /> <code codeSystem="local" code="BUN" displayName="BUN " /> <statusCode code="completed" /> <effectiveTime value= "200703984818" /> <value unit="mg/dL" xsi:type="PQ" value="58" /> <interpretationCode codeSystem="local" code="*" /> <referenceRange > <observationRange> <text>4-20</text> </ observationRange> </referenceRange> </observation> </ component> <component> <observation moodCode="EVN" classCode="OBS"> <templateId root="216.840.1.384254.10.20.22.4.2" /> <id nullFlavor="NA" /> <code codeSystem="local" code="CA" displayName= "Calcium" /> <statusCode code="completed" /> <effectiveTime value="533848704689" /> <value unit="mg/dL" xsi:type="PQ" value="9.1" / > <referenceRange> <observationRange> <text>8.6 -10.0</text> </observationRange> </referenceRange> </ observation> </component> <component> <observation moodCode= "EVN" classCode="OBS"> <templateId root="10.29.840.1.159334.10.20.22.4.2 " /> <id nullFlavor="NA" /> <code codeSystem="local" code="CL " displayName="Chloride" /> <statusCode code="completed" /> < effectiveTime value="470369883178" /> <value unit="mEq/L" xsi:type="PQ " value="97" /> <interpretationCode codeSystem="local" code="*" /> <referenceRange> <observationRange> <text>99-109</ text> </observationRange> </referenceRange> </ observation> </component> <component> <observation moodCode= "EVN" classCode="OBS"> <templateId root="10.29.840.1.884754.10.22.4.2 " /> <id nullFlavor="NA" /> <code codeSystem="local" code="CO2 " displayName="CO2" /> <statusCode code="completed" /> < effectiveTime value="189296873541" /> <value unit="mEq/L" xsi:type="PQ " value="22" /> <referenceRange> <observationRange> <text>22-32</text> </observationRange> </ referenceRange> </observation> </component> <component> <observation moodCode="EVN" classCode="OBS"> <templateId root= "10.29.840.1.358521.10..22.4.2" /> <id nullFlavor="NA" /> < code codeSystem="local" code="CREAT" displayName="Creatinine" /> < statusCode code="completed" /> <effectiveTime value="032142818737" /> <value unit="mg/dL" xsi:type="PQ" value="1.41" /> < interpretationCode codeSystem="local" code="*" /> <referenceRange> <observationRange> <text>0.64-1.27</text> </ observationRange> </referenceRange> </observation> </ component> <component> <observation moodCode="EVN" classCode="OBS"> <templateId root="16.840.1.671961.10..22.4.2" /> <id nullFlavor="NA" /> <code codeSystem="local" code="GLOB" displayName= "Globulin" /> <statusCode code="completed" /> <effectiveTime value="511532325387" /> <value unit="g/dL" xsi:type="PQ" value="3.6" / > <referenceRange> <observationRange> <text>1.9 -4.3</text> </observationRange> </referenceRange> </ observation> </component> <component> <observation moodCode= "EVN" classCode="OBS"> <templateId root="10.29.840.1.526217.10..4.2 " /> <id nullFlavor="NA" /> <code codeSystem="local" code="GLU " displayName="Glucose" /> <statusCode code="completed" /> < effectiveTime value="598263219798" /> <value unit="mg/dL" xsi:type="PQ " value="114" /> <interpretationCode codeSystem="local" code="*" /> <referenceRange> <observationRange> <text>70-100< /text> </observationRange> </referenceRange> </ observation> </component> <component> <observation moodCode= "EVN" classCode="OBS"> <templateId root="10.29.840.1.527654.10..22.4.2 " /> <id nullFlavor="NA" /> <code codeSystem="local" code="K" displayName="Potassium" /> <statusCode code="completed" /> < effectiveTime value="452458747541" /> <value unit="mEq/L" xsi:type="PQ " value="5.6" /> <interpretationCode codeSystem="local" code="*" /> <referenceRange> <observationRange> <text>3.6-5.1 </text> </observationRange> </referenceRange> </ observation> </component> <component> <observation moodCode= "EVN" classCode="OBS"> <templateId root="216.840.1.895099.10.20.22.4.2 " /> <id nullFlavor="NA" /> <code codeSystem="local" code="TP " displayName="Protein" /> <statusCode code="completed" /> < effectiveTime value="198685413249" /> <value unit="g/dL" xsi:type="PQ" value="7.2" /> <referenceRange> <observationRange> <text>6.1-7.9</text> </observationRange> </ referenceRange> </observation> </component> <component> <observation moodCode="EVN" classCode="OBS"> <templateId root= "216.840.1.024653.10.20.22.4.2" /> <id nullFlavor="NA" /> < code codeSystem="local" code="NA" displayName="Sodium" /> <statusCode code="completed" /> <effectiveTime value="806197792391" /> < value unit="mEq/L" xsi:type="PQ" value="129" /> <interpretationCode codeSystem="local" code="*" /> <referenceRange> < observationRange> <text>136-144</text> </ observationRange> </referenceRange> </observation> </ component> </organizer> </entry> <entry> <organizer moodCode="EVN" classCode="BATTERY"> <templateId root="840.1.137824.07.02.22.4.1" /> <id nullFlavor="NA" /> <code codeSystem="local" code="GFR" displayName ="eGFR" /> <statusCode code="completed" /> <component> < observation moodCode="EVN" classCode="OBS"> <templateId root= "840.1.063712.07.02.22.4.2" /> <id nullFlavor="NA" /> < code codeSystem="local" code="GFR" displayName="eGFR" /> <statusCode code="completed" /> <effectiveTime value="131928719900" /> < value unit="mL/min" xsi:type="PQ" value="54" /> <interpretationCode codeSystem="local" code="*" /> <referenceRange> < observationRange> <text>>60</text> </observationRange > </referenceRange> </observation> </component> </ organizer> </entry> <entry> <organizer moodCode="EVN" classCode="BATTERY"> <templateId root="840.1.147419.07.02.22.4.1" /> <id nullFlavor= "NA" /> <code codeSystem="local" code="BMP" displayName="Basic Metabolic Panel (BMP)" /> <statusCode code="completed" /> <component> < observation moodCode="EVN" classCode="OBS"> <templateId root= "840.1.717601.07.02.22.4.2" /> <id nullFlavor="NA" /> < code codeSystem="local" code="AGAP" displayName="Anion Gap" /> < statusCode code="completed" /> <effectiveTime value="640838673126" /> <value unit="mEq/L" xsi:type="PQ" value="8" /> <referenceRange > <observationRange> <text>3-20</text> </ observationRange> </referenceRange> </observation> </ component> <component> <observation moodCode="EVN" classCode="OBS"> <templateId root="16.840.1.322497.10..22.4.2" /> <id nullFlavor="NA" /> <code codeSystem="local" code="BUN" displayName="BUN " /> <statusCode code="completed" /> <effectiveTime value= "402900036805" /> <value unit="mg/dL" xsi:type="PQ" value="66" /> <interpretationCode codeSystem="local" code="*" /> <referenceRange > <observationRange> <text>4-20</text> </ observationRange> </referenceRange> </observation> </ component> <component> <observation moodCode="EVN" classCode="OBS"> <templateId root="10.29.840.1.057842...4.2" /> <id nullFlavor="NA" /> <code codeSystem="local" code="CA" displayName= "Calcium" /> <statusCode code="completed" /> <effectiveTime value="730435122906" /> <value unit="mg/dL" xsi:type="PQ" value="8.7" / > <referenceRange> <observationRange> <text>8.6 -10.0</text> </observationRange> </referenceRange> </ observation> </component> <component> <observation moodCode= "EVN" classCode="OBS"> <templateId root="10.29.840.1.242661.10..22.4.2 " /> <id nullFlavor="NA" /> <code codeSystem="local" code="CL " displayName="Chloride" /> <statusCode code="completed" /> < effectiveTime value="645262501474" /> <value unit="mEq/L" xsi:type="PQ " value="99" /> <referenceRange> <observationRange> <text>99-109</text> </observationRange> </ referenceRange> </observation> </component> <component> <observation moodCode="EVN" classCode="OBS"> <templateId root= "216.840.1.237512.10.20.22.4.2" /> <id nullFlavor="NA" /> < code codeSystem="local" code="CO2" displayName="CO2" /> <statusCode code="completed" /> <effectiveTime value="984717228663" /> < value unit="mEq/L" xsi:type="PQ" value="20" /> <interpretationCode codeSystem="local" code="*" /> <referenceRange> < observationRange> <text>22-32</text> </observationRange > </referenceRange> </observation> </component> < component> <observation moodCode="EVN" classCode="OBS"> < templateId root="216.840.1.000319.10.20.22.4.2" /> <id nullFlavor="NA " /> <code codeSystem="local" code="CREAT" displayName="Creatinine" /> <statusCode code="completed" /> <effectiveTime value= "314862180752" /> <value unit="mg/dL" xsi:type="PQ" value="1.71" /> <interpretationCode codeSystem="local" code="*" /> < referenceRange> <observationRange> <text>0.64-1.27</text > </observationRange> </referenceRange> </observation > </component> <component> <observation moodCode="EVN" classCode="OBS"> <templateId root="10.29.840.1.186889.10.20.22.4.2" /> <id nullFlavor="NA" /> <code codeSystem="local" code="GLU" displayName="Glucose" /> <statusCode code="completed" /> < effectiveTime value="753314011694" /> <value unit="mg/dL" xsi:type="PQ " value="145" /> <interpretationCode codeSystem="local" code="*" /> <referenceRange> <observationRange> <text>70-100< /text> </observationRange> </referenceRange> </ observation> </component> <component> <observation moodCode= "EVN" classCode="OBS"> <templateId root="10.29.840.1.004412.10...4.2 " /> <id nullFlavor="NA" /> <code codeSystem="local" code="K" displayName="Potassium" /> <statusCode code="completed" /> < effectiveTime value="438953400733" /> <value unit="mEq/L" xsi:type="PQ " value="5.8" /> <interpretationCode codeSystem="local" code="*" /> <referenceRange> <observationRange> <text>3.6-5.1 </text> </observationRange> </referenceRange> </ observation> </component> <component> <observation moodCode= "EVN" classCode="OBS"> <templateId root="10.29.840.1.929464.10.22.4.2 " /> <id nullFlavor="NA" /> <code codeSystem="local" code="NA " displayName="Sodium" /> <statusCode code="completed" /> < effectiveTime value="086335358621" /> <value unit="mEq/L" xsi:type="PQ " value="127" /> <interpretationCode codeSystem="local" code="*" /> <referenceRange> <observationRange> <text>136-144 </text> </observationRange> </referenceRange> </ observation> </component> </organizer> </entry> <entry> <organizer moodCode="EVN" classCode="BATTERY"> <templateId root= "16.840.1.297476.10...4.1" /> <id nullFlavor="NA" /> <code codeSystem="local" code="GFR" displayName="eGFR" /> <statusCode code= "completed" /> <component> <observation moodCode="EVN" classCode= "OBS"> <templateId root="16.840.1.411360.10...4.2" /> < id nullFlavor="NA" /> <code codeSystem="local" code="GFR" displayName= "eGFR" /> <statusCode code="completed" /> <effectiveTime value ="091302420779" /> <value unit="mL/min" xsi:type="PQ" value="43" /> <interpretationCode codeSystem="local" code="*" /> < referenceRange> <observationRange> <text>>60</text> </observationRange> </referenceRange> </observation> </component> </organizer> </entry> <entry> <organizer moodCode= "EVN" classCode="BATTERY"> <templateId root="16.840.1.642081.10...4.1 " /> <id nullFlavor="NA" /> <code codeSystem="local" code="ULYTR" displayName="Urine Electrolytes, Random" /> <statusCode code="completed" / > <component> <observation moodCode="EVN" classCode="OBS"> <templateId root="2.16.840.1.087603.10.22.4.2" /> <id nullFlavor="NA " /> <code codeSystem="local" code="UCLR" displayName="Chloride Random Urine" /> <statusCode code="completed" /> <effectiveTime value ="817581640270" /> <value unit="mEq/L" xsi:type="PQ" value="37" /> <referenceRange> <observationRange> <text /> </observationRange> </referenceRange> </observation> </component> <component> <observation moodCode="EVN" classCode= "OBS"> <templateId root="2.16.840.1.646123.10..4.2" /> < id nullFlavor="NA" /> <code codeSystem="local" code="UKR" displayName= "Potassium Random Urine" /> <statusCode code="completed" /> < effectiveTime value="473108913323" /> <value unit="mEq/L" xsi:type="PQ " value="57" /> <referenceRange> <observationRange> <text /> </observationRange> </referenceRange> </observation> </component> <component> <observation moodCode= "EVN" classCode="OBS"> <templateId root="216.840.1.627436.10..4.2 " /> <id nullFlavor="NA" /> <code codeSystem="local" code= "UNAR" displayName="Sodium Random Urine" /> <statusCode code="completed " /> <effectiveTime value="222717160970" /> <value unit="mEq/L " xsi:type="PQ" value="61" /> <referenceRange> < observationRange> <text /> </observationRange> </referenceRange> </observation> </component> </organizer> </ entry> <entry> <organizer moodCode="EVN" classCode="BATTERY"> < templateId root="10.29.840.1.141359.10...4.1" /> <id nullFlavor="NA" /> <code codeSystem="local" code="UCRER" displayName="Creatinine Random Urine " /> <statusCode code="completed" /> <component> <observation moodCode="EVN" classCode="OBS"> <templateId root= "840.1.829654.22.4.2" /> <id nullFlavor="NA" /> < code codeSystem="local" code="UCRER" displayName="Creatinine Random Urine" /> <statusCode code="completed" /> <effectiveTime value= "262853678149" /> <value unit="mg/dL" xsi:type="PQ" value="64" /> <referenceRange> <observationRange> <text /> </observationRange> </referenceRange> </observation> </component> </organizer> </entry> <entry> <organizer moodCode="EVN" classCode="BATTERY"> <templateId root="840.1.978132.07.02.22.4.1" /> <id nullFlavor="NA" /> <code codeSystem="local" code="UA" displayName= "Urinalysis with reflex microscopic" /> <statusCode code="completed" /> <component> <observation moodCode="EVN" classCode="OBS"> < templateId root="10.29.840.1.297647.10.4.2" /> <id nullFlavor="NA " /> <code codeSystem="local" code="UAPP" displayName="Appearance" /> <statusCode code="completed" /> <effectiveTime value= "089626509768" /> <value unit="NA" xsi:type="PQ" value="Cloudy" /> <interpretationCode codeSystem="local" code="*" /> < referenceRange> <observationRange> <text /> < /observationRange> </referenceRange> </observation> </ component> <component> <observation moodCode="EVN" classCode="OBS"> <templateId root="16.840.1.288811.10.4.2" /> <id nullFlavor="NA" /> <code codeSystem="local" code="UBIL" displayName= "Bilirubin" /> <statusCode code="completed" /> <effectiveTime value="335869742052" /> <value unit="NA" xsi:type="PQ" value="Negative " /> <referenceRange> <observationRange> <text> Negative</text> </observationRange> </referenceRange> </observation> </component> <component> <observation moodCode ="EVN" classCode="OBS"> <templateId root= "840.1.180300.07.02.22.4.2" /> <id nullFlavor="NA" /> < code codeSystem="local" code="UBLD" displayName="Blood" /> <statusCode code="completed" /> <effectiveTime value="708640275613" /> < value unit="NA" xsi:type="PQ" value="Negative" /> <referenceRange> <observationRange> <text>Negative</text> </ observationRange> </referenceRange> </observation> </ component> <component> <observation moodCode="EVN" classCode="OBS"> <templateId root="10.29.840.1.143755.10.4.2" /> <id nullFlavor="NA" /> <code codeSystem="local" code="UCOLR" displayName= "Color" /> <statusCode code="completed" /> <effectiveTime value="444177526424" /> <value unit="NA" xsi:type="PQ" value="Yellow" / > <referenceRange> <observationRange> <text /> </observationRange> </referenceRange> </observation > </component> <component> <observation moodCode="EVN" classCode="OBS"> <templateId root="10.29.840.1.874509.07.02.22.4.2" /> <id nullFlavor="NA" /> <code codeSystem="local" code="UGLU" displayName="Glucose, Urine" /> <statusCode code="completed" /> <effectiveTime value="286240004662" /> <value unit="" xsi:type="PQ" value="Negative" /> <referenceRange> <observationRange> <text>Negative</text> </observationRange> </ referenceRange> </observation> </component> <component> <observation moodCode="EVN" classCode="OBS"> <templateId root= "840.1.604326.07.02.22.4.2" /> <id nullFlavor="NA" /> < code codeSystem="local" code="UKET" displayName="Ketones" /> < statusCode code="completed" /> <effectiveTime value="" /> <value unit="" xsi:type="PQ" value="Negative" /> < referenceRange> <observationRange> <text>Negative</text > </observationRange> </referenceRange> </observation > </component> <component> <observation moodCode="EVN" classCode="OBS"> <templateId root="840.1.293980.22.4.2" /> <id nullFlavor="NA" /> <code codeSystem="local" code="ULEU" displayName="Leukocyte Esterase" /> <statusCode code="completed" /> <effectiveTime value="061573532029" /> <value unit="NA" xsi:type ="PQ" value="Pos 1+" /> <interpretationCode codeSystem="local" code="* " /> <referenceRange> <observationRange> <text> Negative</text> </observationRange> </referenceRange> </observation> </component> <component> <observation moodCode ="EVN" classCode="OBS"> <templateId root= "16.840.1.638334.10.22.4.2" /> <id nullFlavor="NA" /> < code codeSystem="local" code="UNIT" displayName="Nitrites" /> < statusCode code="completed" /> <effectiveTime value="735766759130" /> <value unit="NA" xsi:type="PQ" value="Negative" /> < referenceRange> <observationRange> <text>Negative</text > </observationRange> </referenceRange> </observation > </component> <component> <observation moodCode="EVN" classCode="OBS"> <templateId root="10.29.840.1.973430.07.02.22.4.2" /> <id nullFlavor="NA" /> <code codeSystem="local" code="UPH" displayName="pH" /> <statusCode code="completed" /> < effectiveTime value="762522221220" /> <value unit="NA" xsi:type="PQ" value="5.0" /> <referenceRange> <observationRange> <text>5.0-8.0</text> </observationRange> </ referenceRange> </observation> </component> <component> <observation moodCode="EVN" classCode="OBS"> <templateId root= "10.29.840.1.164074.1022.4.2" /> <id nullFlavor="NA" /> < code codeSystem="local" code="UPRO" displayName="Protein" /> < statusCode code="completed" /> <effectiveTime value="479836063690" /> <value unit="NA" xsi:type="PQ" value="Negative" /> < referenceRange> <observationRange> <text>Negative</text > </observationRange> </referenceRange> </observation > </component> <component> <observation moodCode="EVN" classCode="OBS"> <templateId root="216.840.1.169239.10..22.4.2" /> <id nullFlavor="NA" /> <code codeSystem="local" code="USPG" displayName="Specific [place]" /> <statusCode code="completed" /> <effectiveTime value="977589941615" /> <value unit="NA" xsi:type= "PQ" value="1.020" /> <referenceRange> <observationRange> <text>1.003-1.030</text> </observationRange> </ referenceRange> </observation> </component> <component> <observation moodCode="EVN" classCode="OBS"> <templateId root= "16.840.1.685329.10..22.4.2" /> <id nullFlavor="NA" /> < code codeSystem="local" code="UTYP" displayName="UA Collection type" /> <statusCode code="completed" /> <effectiveTime value="213222294375" / > <value unit="NA" xsi:type="PQ" value="Clean Catch" /> < referenceRange> <observationRange> <text /> < /observationRange> </referenceRange> </observation> </ component> <component> <observation moodCode="EVN" classCode="OBS"> <templateId root="16.840.1.083364.22.4.2" /> <id nullFlavor="NA" /> <code codeSystem="local" code="UURO" displayName= "Urobilinogen" /> <statusCode code="completed" /> < effectiveTime value="221518379852" /> <value unit="mg/dL" xsi:type="PQ " value="Negative" /> <referenceRange> <observationRange> <text><1.0</text> </observationRange> </ referenceRange> </observation> </component> </organizer> </entry > <entry> <organizer moodCode="EVN" classCode="BATTERY"> <templateId root="10.29.840.1.880353.07.02.22.4.1" /> <id nullFlavor="NA" /> <code codeSystem="local" code="UMIC" displayName="Urine Microscopic" /> < statusCode code="completed" /> <component> <observation moodCode= "EVN" classCode="OBS"> <templateId root="840.1.268612.07.02.22.4.2 " /> <id nullFlavor="NA" /> <code codeSystem="local" code= "UBAC" displayName="Bacteria" /> <statusCode code="completed" /> <effectiveTime value="954739393874" /> <value unit="NA" xsi:type= "PQ" value="Rare" /> <referenceRange> <observationRange> <text /> </observationRange> </referenceRange> </observation> </component> <component> <observation moodCode="EVN" classCode="OBS"> <templateId root= "10.29.840.1.031759.07.02.22.4.2" /> <id nullFlavor="NA" /> < code codeSystem="local" code="UCRY1" displayName="Crystals" /> < statusCode code="completed" /> <effectiveTime value="" /> <value unit="NA" xsi:type="PQ" value="Uric Acid" /> < referenceRange> <observationRange> <text /> < /observationRange> </referenceRange> </observation> </ component> <component> <observation moodCode="EVN" classCode="OBS"> <templateId root="16.840.1.051981.07.02.22.4.2" /> <id nullFlavor="NA" /> <code codeSystem="local" code="UEPI" displayName= "Epithelial Cells" /> <statusCode code="completed" /> < effectiveTime value="" /> <value unit="/HPF" xsi:type="PQ" value="0" /> <referenceRange> <observationRange> <text /> </observationRange> </referenceRange> </ observation> </component> <component> <observation moodCode= "EVN" classCode="OBS"> <templateId root="10.29.840.1.365194.10.4.2 " /> <id nullFlavor="NA" /> <code codeSystem="local" code= "UHCST" displayName="Hyaline Casts" /> <statusCode code="completed" /> <effectiveTime value="" /> <value unit="/LPF" xsi :type="PQ" value="1" /> <referenceRange> <observationRange> <text>0-3</text> </observationRange> </ referenceRange> </observation> </component> <component> <observation moodCode="EVN" classCode="OBS"> <templateId root= "16.840.1.004976.22.4.2" /> <id nullFlavor="NA" /> < code codeSystem="local" code="URBC" displayName="RBC, Urine" /> < statusCode code="completed" /> <effectiveTime value="" /> <value unit="/HPF" xsi:type="PQ" value="None seen" /> < referenceRange> <observationRange> <text>0-2</text> </observationRange> </referenceRange> </observation> </component> <component> <observation moodCode="EVN" classCode= "OBS"> <templateId root="216.840.1.884501.10..22.4.2" /> < id nullFlavor="NA" /> <code codeSystem="local" code="UMUC" displayName= "Urine Mucus" /> <statusCode code="completed" /> < effectiveTime value="" /> <value unit="NA" xsi:type="PQ" value="Present" /> <referenceRange> <observationRange> <text /> </observationRange> </referenceRange> </observation> </component> <component> <observation moodCode="EVN" classCode="OBS"> <templateId root= "2.16.840.1.479015.10..22.4.2" /> <id nullFlavor="NA" /> < code codeSystem="local" code="UWBC" displayName="WBC, Urine" /> < statusCode code="completed" /> <effectiveTime value="082898351303" /> <value unit="/HPF" xsi:type="PQ" value="5" /> < interpretationCode codeSystem="local" code="*" /> <referenceRange> <observationRange> <text>0-4</text> </ observationRange> </referenceRange> </observation> </ component> </organizer> </entry> <entry> <organizer moodCode="EVN" classCode="BATTERY"> <templateId root="840.1.155827.07.02.22.4.1" /> <id nullFlavor="NA" /> <code codeSystem="local" code="K" displayName= "Potassium" /> <statusCode code="completed" /> <component> < observation moodCode="EVN" classCode="OBS"> <templateId root= "840.1.946413.07.02.22.4.2" /> <id nullFlavor="NA" /> < code codeSystem="local" code="K" displayName="Potassium" /> < statusCode code="completed" /> <effectiveTime value="380857333825" /> <value unit="mEq/L" xsi:type="PQ" value="5.6" /> < interpretationCode codeSystem="local" code="*" /> <referenceRange> <observationRange> <text>3.6-5.1</text> </ observationRange> </referenceRange> </observation> </ component> </organizer> </entry> <entry> <organizer moodCode="EVN" classCode="BATTERY"> <templateId root="840.1.750286.07.02.22.4.1" /> <id nullFlavor="NA" /> <code codeSystem="local" code="GLUN" displayName="Glucose NPT" /> <statusCode code="completed" /> < component> <observation moodCode="EVN" classCode="OBS"> < templateId root="840.1.367147.07.02.22.4.2" /> <id nullFlavor="NA " /> <code codeSystem="local" code="GLUN" displayName="Glucose NPT" / > <statusCode code="completed" /> <effectiveTime value= "426036484213" /> <value unit="mg/dL" xsi:type="PQ" value="98" /> <referenceRange> <observationRange> <text>70-100</ text> </observationRange> </referenceRange> </ observation> </component> </organizer> </entry> <entry> <organizer moodCode="EVN" classCode="BATTERY"> <templateId root= "10.29.840.1.074292.10..4.1" /> <id nullFlavor="NA" /> <code codeSystem="local" code="CBCND" displayName="CBC With Platelet No Differential" /> <statusCode code="completed" /> <component> <observation moodCode="EVN" classCode="OBS"> <templateId root= "10.29.840.1.151408.10..4.2" /> <id nullFlavor="NA" /> < code codeSystem="local" code="HCT" displayName="HCT" /> <statusCode code="completed" /> <effectiveTime value="652561776566" /> < value unit="%" xsi:type="PQ" value="39.3" /> <interpretationCode codeSystem="local" code="*" /> <referenceRange> < observationRange> <text>42.0-52.0</text> </ observationRange> </referenceRange> </observation> </ component> <component> <observation moodCode="EVN" classCode="OBS"> <templateId root="840.1.183213.10...4.2" /> <id nullFlavor="NA" /> <code codeSystem="local" code="HGB" displayName="HGB " /> <statusCode code="completed" /> <effectiveTime value= "706050167451" /> <value unit="g/dL" xsi:type="PQ" value="13.5" /> <interpretationCode codeSystem="local" code="*" /> < referenceRange> <observationRange> <text>14.0-18.0</text > </observationRange> </referenceRange> </observation > </component> <component> <observation moodCode="EVN" classCode="OBS"> <templateId root="216.840.1.206704.10.20.22.4.2" /> <id nullFlavor="NA" /> <code codeSystem="local" code="MCH" displayName="MCH" /> <statusCode code="completed" /> < effectiveTime value="220589138335" /> <value unit="pg" xsi:type="PQ" value="30.7" /> <referenceRange> <observationRange> <text>27.0-32.0</text> </observationRange> </ referenceRange> </observation> </component> <component> <observation moodCode="EVN" classCode="OBS"> <templateId root= "10.29.840.1.229138.10..4.2" /> <id nullFlavor="NA" /> < code codeSystem="local" code="MCHC" displayName="MCHC" /> <statusCode code="completed" /> <effectiveTime value="305331198442" /> < value unit="g/dL" xsi:type="PQ" value="34.4" /> <referenceRange> <observationRange> <text>32.0-36.0</text> </ observationRange> </referenceRange> </observation> </ component> <component> <observation moodCode="EVN" classCode="OBS"> <templateId root="16.840.1.026351.10.20..4.2" /> <id nullFlavor="NA" /> <code codeSystem="local" code="MCV" displayName="MCV " /> <statusCode code="completed" /> <effectiveTime value= "" /> <value unit="fL" xsi:type="PQ" value="89.3" /> <referenceRange> <observationRange> <text>82.0-99.0< /text> </observationRange> </referenceRange> </ observation> </component> <component> <observation moodCode= "EVN" classCode="OBS"> <templateId root="10.29.840.1.018308.10.22.4.2 " /> <id nullFlavor="NA" /> <code codeSystem="local" code="MPV " displayName="MPV" /> <statusCode code="completed" /> < effectiveTime value="" /> <value unit="fL" xsi:type="PQ" value="10.4" /> <referenceRange> <observationRange> <text>9.4-12.3</text> </observationRange> </ referenceRange> </observation> </component> <component> <observation moodCode="EVN" classCode="OBS"> <templateId root= "10.29.840.1.849882.22.4.2" /> <id nullFlavor="NA" /> < code codeSystem="local" code="PLT" displayName="Platelet Count" /> < statusCode code="completed" /> <effectiveTime value="" /> <value unit="K/uL" xsi:type="PQ" value="211" /> < referenceRange> <observationRange> <text>150-400</text> </observationRange> </referenceRange> </observation > </component> <component> <observation moodCode="EVN" classCode="OBS"> <templateId root="10.29.840.1.116932.07.02.22.4.2" /> <id nullFlavor="NA" /> <code codeSystem="local" code="RBC" displayName="RBC" /> <statusCode code="completed" /> < effectiveTime value="" /> <value unit="10*6/uL" xsi:type= "PQ" value="4.40" /> <interpretationCode codeSystem="local" code="*" / > <referenceRange> <observationRange> <text> 4.60-6.20</text> </observationRange> </referenceRange> </observation> </component> <component> <observation moodCode="EVN" classCode="OBS"> <templateId root= "216.840.1.792762.07.02.22.4.2" /> <id nullFlavor="NA" /> < code codeSystem="local" code="RDW" displayName="RDW" /> <statusCode code="completed" /> <effectiveTime value="" /> < value unit="%" xsi:type="PQ" value="13.6" /> <referenceRange> <observationRange> <text>11.5-14.5</text> </ observationRange> </referenceRange> </observation> </ component> <component> <observation moodCode="EVN" classCode="OBS"> <templateId root="216.840.1.915072.07.02.22.4.2" /> <id nullFlavor="NA" /> <code codeSystem="local" code="WBCIR" displayName= "WBC" /> <statusCode code="completed" /> <effectiveTime value= "" /> <value unit="K/uL" xsi:type="PQ" value="15.6" /> <interpretationCode codeSystem="local" code="*" /> < referenceRange> <observationRange> <text>4.8-10.8</text > </observationRange> </referenceRange> </observation > </component> </organizer> </entry> <entry> <organizer moodCode= "EVN" classCode="BATTERY"> <templateId root="2.16.840.1.330322.10..22.4.1 " /> <id nullFlavor="NA" /> <code codeSystem="local" code="RENAL" displayName="Renal Function Panel" /> <statusCode code="completed" /> <component> <observation moodCode="EVN" classCode="OBS"> < templateId root="2.16.840.1.842008...4.2" /> <id nullFlavor="NA " /> <code codeSystem="local" code="ALB" displayName="Albumin" /> <statusCode code="completed" /> <effectiveTime value=" " /> <value unit="g/dL" xsi:type="PQ" value="3.5" /> < referenceRange> <observationRange> <text>3.5-4.8</text> </observationRange> </referenceRange> </observation > </component> <component> <observation moodCode="EVN" classCode="OBS"> <templateId root="16.840.1.581054.07.02.22.4.2" /> <id nullFlavor="NA" /> <code codeSystem="local" code="AGAP" displayName="Anion Gap" /> <statusCode code="completed" /> < effectiveTime value="" /> <value unit="mEq/L" xsi:type="PQ " value="5" /> <referenceRange> <observationRange> <text>3-20</text> </observationRange> </referenceRange > </observation> </component> <component> <observation moodCode="EVN" classCode="OBS"> <templateId root= "216.840.1.758846.10..22.4.2" /> <id nullFlavor="NA" /> < code codeSystem="local" code="BUN" displayName="BUN" /> <statusCode code="completed" /> <effectiveTime value="" /> < value unit="mg/dL" xsi:type="PQ" value="57" /> <interpretationCode codeSystem="local" code="*" /> <referenceRange> < observationRange> <text>4-20</text> </observationRange> </referenceRange> </observation> </component> < component> <observation moodCode="EVN" classCode="OBS"> < templateId root="16.840.1.085312.07.02.22.4.2" /> <id nullFlavor="NA " /> <code codeSystem="local" code="CA" displayName="Calcium" /> <statusCode code="completed" /> <effectiveTime value=" " /> <value unit="mg/dL" xsi:type="PQ" value="9.1" /> < referenceRange> <observationRange> <text>8.6-10.0</text > </observationRange> </referenceRange> </observation > </component> <component> <observation moodCode="EVN" classCode="OBS"> <templateId root="16.840.1.337631.10..22.4.2" /> <id nullFlavor="NA" /> <code codeSystem="local" code="CL" displayName="Chloride" /> <statusCode code="completed" /> < effectiveTime value="[id number]" /> <value unit="mEq/L" xsi:type="PQ " value="100" /> <referenceRange> <observationRange> <text>99-109</text> </observationRange> </ referenceRange> </observation> </component> <component> <observation moodCode="EVN" classCode="OBS"> <templateId root= "10.29.840.1.853794.10.20.22.4.2" /> <id nullFlavor="NA" /> < code codeSystem="local" code="CO2" displayName="CO2" /> <statusCode code="completed" /> <effectiveTime value="" /> < value unit="mEq/L" xsi:type="PQ" value="23" /> <referenceRange> <observationRange> <text>22-32</text> </ observationRange> </referenceRange> </observation> </ component> <component> <observation moodCode="EVN" classCode="OBS"> <templateId root="10.29.840.1.706627.10..22.4.2" /> <id nullFlavor="NA" /> <code codeSystem="local" code="CREAT" displayName= "Creatinine" /> <statusCode code="completed" /> < effectiveTime value="668027980517" /> <value unit="mg/dL" xsi:type="PQ " value="1.51" /> <interpretationCode codeSystem="local" code="*" /> <referenceRange> <observationRange> <text>0.64- 1.27</text> </observationRange> </referenceRange> </ observation> </component> <component> <observation moodCode= "EVN" classCode="OBS"> <templateId root="10.29.840.1.814198.10.20.22.4.2 " /> <id nullFlavor="NA" /> <code codeSystem="local" code="GLU " displayName="Glucose" /> <statusCode code="completed" /> < effectiveTime value="074852346550" /> <value unit="mg/dL" xsi:type="PQ " value="105" /> <interpretationCode codeSystem="local" code="*" /> <referenceRange> <observationRange> <text>70-100< /text> </observationRange> </referenceRange> </ observation> </component> <component> <observation moodCode= "EVN" classCode="OBS"> <templateId root="216.840.1.135203.10.20.22.4.2 " /> <id nullFlavor="NA" /> <code codeSystem="local" code= "PHOS" displayName="Phosphorus" /> <statusCode code="completed" /> <effectiveTime value="" /> <value unit="mg/dL" xsi: type="PQ" value="4.9" /> <interpretationCode codeSystem="local" code="* " /> <referenceRange> <observationRange> <text> 2.4-4.7</text> </observationRange> </referenceRange> </observation> </component> <component> <observation moodCode= "EVN" classCode="OBS"> <templateId root="16.840.1.300237.10.20.22.4.2 " /> <id nullFlavor="NA" /> <code codeSystem="local" code="K" displayName="Potassium" /> <statusCode code="completed" /> < effectiveTime value="369482352237" /> <value unit="mEq/L" xsi:type="PQ " value="5.9" /> <interpretationCode codeSystem="local" code="*" /> <referenceRange> <observationRange> <text>3.6-5.1 </text> </observationRange> </referenceRange> </ observation> </component> <component> <observation moodCode= "EVN" classCode="OBS"> <templateId root="2.16.840.1.852705.10..22.4.2 " /> <id nullFlavor="NA" /> <code codeSystem="local" code="NA " displayName="Sodium" /> <statusCode code="completed" /> < effectiveTime value="" /> <value unit="mEq/L" xsi:type="PQ " value="128" /> <interpretationCode codeSystem="local" code="*" /> <referenceRange> <observationRange> <text>136-144 </text> </observationRange> </referenceRange> </ observation> </component> </organizer> </entry> <entry> <organizer moodCode="EVN" classCode="BATTERY"> <templateId root= "2.16.840.1.922303.10..22.4.1" /> <id nullFlavor="NA" /> <code codeSystem="local" code="MG" displayName="Magnesium" /> <statusCode code= "completed" /> <component> <observation moodCode="EVN" classCode= "OBS"> <templateId root="2.16.840.1.537766.10.20.22.4.2" /> < id nullFlavor="NA" /> <code codeSystem="local" code="MG" displayName= "Magnesium" /> <statusCode code="completed" /> <effectiveTime value="813484730635" /> <value unit="mg/dL" xsi:type="PQ" value="1.9" / > <referenceRange> <observationRange> <text>1.8 -2.5</text> </observationRange> </referenceRange> </ observation> </component> </organizer> </entry> <entry> <organizer moodCode="EVN" classCode="BATTERY"> <templateId root= "840.1.965056.07.02.22.4.1" /> <id nullFlavor="NA" /> <code codeSystem="local" code="GFR" displayName="eGFR" /> <statusCode code= "completed" /> <component> <observation moodCode="EVN" classCode= "OBS"> <templateId root="840.1.878861.07.02.22.4.2" /> < id nullFlavor="NA" /> <code codeSystem="local" code="GFR" displayName= "eGFR" /> <statusCode code="completed" /> <effectiveTime value ="912363533540" /> <value unit="mL/min" xsi:type="PQ" value="49" /> <interpretationCode codeSystem="local" code="*" /> < referenceRange> <observationRange> <text>>60</text> </observationRange> </referenceRange> </observation> </component> </organizer> </entry> <entry> <organizer moodCode= "EVN" classCode="BATTERY"> <templateId root="840.1.897644.07.02.22.4.1 " /> <id nullFlavor="NA" /> <code codeSystem="local" code="BMP" displayName="Basic Metabolic Panel (BMP)" /> <statusCode code="completed" / > <component> <observation moodCode="EVN" classCode="OBS"> <templateId root="840.1.011252.07.02.22.4.2" /> <id nullFlavor="NA " /> <code codeSystem="local" code="AGAP" displayName="Anion Gap" /> <statusCode code="completed" /> <effectiveTime value= "159640996350" /> <value unit="mEq/L" xsi:type="PQ" value="10" /> <referenceRange> <observationRange> <text>3-20</ text> </observationRange> </referenceRange> </ observation> </component> <component> <observation moodCode= "EVN" classCode="OBS"> <templateId root="16.840.1.874577.10.22.4.2 " /> <id nullFlavor="NA" /> <code codeSystem="local" code="BUN " displayName="BUN" /> <statusCode code="completed" /> < effectiveTime value="001516040192" /> <value unit="mg/dL" xsi:type="PQ " value="54" /> <interpretationCode codeSystem="local" code="*" /> <referenceRange> <observationRange> <text>4-20</ text> </observationRange> </referenceRange> </ observation> </component> <component> <observation moodCode= "EVN" classCode="OBS"> <templateId root="840.1.489616.07.02.22.4.2 " /> <id nullFlavor="NA" /> <code codeSystem="local" code="CA " displayName="Calcium" /> <statusCode code="completed" /> < effectiveTime value="105950641379" /> <value unit="mg/dL" xsi:type="PQ " value="9.7" /> <referenceRange> <observationRange> <text>8.6-10.0</text> </observationRange> </ referenceRange> </observation> </component> <component> <observation moodCode="EVN" classCode="OBS"> <templateId root= "10.29.840.1.362334.10.20.22.4.2" /> <id nullFlavor="NA" /> < code codeSystem="local" code="CL" displayName="Chloride" /> < statusCode code="completed" /> <effectiveTime value="503640514414" /> <value unit="mEq/L" xsi:type="PQ" value="99" /> < referenceRange> <observationRange> <text>99-109</text> </observationRange> </referenceRange> </observation> </component> <component> <observation moodCode="EVN" classCode ="OBS"> <templateId root="216.840.1.200795.10.20.22.4.2" /> < id nullFlavor="NA" /> <code codeSystem="local" code="CO2" displayName= "CO2" /> <statusCode code="completed" /> <effectiveTime value= "375987881732" /> <value unit="mEq/L" xsi:type="PQ" value="22" /> <referenceRange> <observationRange> <text>22-32</ text> </observationRange> </referenceRange> </ observation> </component> <component> <observation moodCode= "EVN" classCode="OBS"> <templateId root="2.16.840.1.632633.10.20.22.4.2 " /> <id nullFlavor="NA" /> <code codeSystem="local" code= "CREAT" displayName="Creatinine" /> <statusCode code="completed" /> <effectiveTime value="906035855521" /> <value unit="mg/dL" xsi: type="PQ" value="1.49" /> <interpretationCode codeSystem="local" code= "*" /> <referenceRange> <observationRange> < text>0.64-1.27</text> </observationRange> </referenceRange> </observation> </component> <component> <observation moodCode="EVN" classCode="OBS"> <templateId root= "840.1.172019.10.2022.4.2" /> <id nullFlavor="NA" /> < code codeSystem="local" code="GLU" displayName="Glucose" /> < statusCode code="completed" /> <effectiveTime value="" /> <value unit="mg/dL" xsi:type="PQ" value="108" /> < interpretationCode codeSystem="local" code="*" /> <referenceRange> <observationRange> <text>70-100</text> </ observationRange> </referenceRange> </observation> </ component> <component> <observation moodCode="EVN" classCode="OBS"> <templateId root="840.1.630093.1022.4.2" /> <id nullFlavor="NA" /> <code codeSystem="local" code="K" displayName= "Potassium" /> <statusCode code="completed" /> <effectiveTime value="" /> <value unit="mEq/L" xsi:type="PQ" value="5.6" / > <interpretationCode codeSystem="local" code="*" /> < referenceRange> <observationRange> <text>3.6-5.1</text> </observationRange> </referenceRange> </observation > </component> <component> <observation moodCode="EVN" classCode="OBS"> <templateId root="840.1.132818.10.2022.4.2" /> <id nullFlavor="NA" /> <code codeSystem="local" code="NA" displayName="Sodium" /> <statusCode code="completed" /> < effectiveTime value="" /> <value unit="mEq/L" xsi:type="PQ " value="131" /> <interpretationCode codeSystem="local" code="*" /> <referenceRange> <observationRange> <text>136-144 </text> </observationRange> </referenceRange> </ observation> </component> </organizer> </entry> <entry> <organizer moodCode="EVN" classCode="BATTERY"> <templateId root= "16.840.1.307313.07.02.22.4.1" /> <id nullFlavor="NA" /> <code codeSystem="local" code="GFR" displayName="eGFR" /> <statusCode code= "completed" /> <component> <observation moodCode="EVN" classCode= "OBS"> <templateId root="16.840.1.745609.07.02.22.4.2" /> < id nullFlavor="NA" /> <code codeSystem="local" code="GFR" displayName= "eGFR" /> <statusCode code="completed" /> <effectiveTime value ="166493048309" /> <value unit="mL/min" xsi:type="PQ" value="50" /> <interpretationCode codeSystem="local" code="*" /> < referenceRange> <observationRange> <text>>60</text> </observationRange> </referenceRange> </observation> </component> </organizer> </entry> <entry> <organizer moodCode= "EVN" classCode="BATTERY"> <templateId root="10.29.840.1.667054.07.02.22.4.1 " /> <id nullFlavor="NA" /> <code codeSystem="local" code="K" displayName="Potassium" /> <statusCode code="completed" /> <component > <observation moodCode="EVN" classCode="OBS"> <templateId root= "10.29.840.1.674197.07.02.22.4.2" /> <id nullFlavor="NA" /> < code codeSystem="local" code="K" displayName="Potassium" /> < statusCode code="completed" /> <effectiveTime value="846724455523" /> <value unit="mEq/L" xsi:type="PQ" value="5.4" /> < interpretationCode codeSystem="local" code="*" /> <referenceRange> <observationRange> <text>3.6-5.1</text> </ observationRange> </referenceRange> </observation> </ component> </organizer> </entry> <entry> <organizer moodCode="EVN" classCode="BATTERY"> <templateId root="10.29.840.1.571961.10...4.1" /> <id nullFlavor="NA" /> <code codeSystem="local" code="LIPA" displayName="Lipase" /> <statusCode code="completed" /> <component> <observation moodCode="EVN" classCode="OBS"> <templateId root= "16.840.1.507718.10...4.2" /> <id nullFlavor="NA" /> < code codeSystem="local" code="LIPA" displayName="Lipase" /> < statusCode code="completed" /> <effectiveTime value="021770551770" /> <value unit="U/L" xsi:type="PQ" value="34" /> <referenceRange > <observationRange> <text>8-48</text> </ observationRange> </referenceRange> </observation> </ component> </organizer> </entry> <entry> <organizer moodCode="EVN" classCode="BATTERY"> <templateId root="16.840.1.683737.07.02.224.1" /> <id nullFlavor="NA" /> <code codeSystem="local" code="GFR" displayName ="eGFR" /> <statusCode code="completed" /> <component> < observation moodCode="EVN" classCode="OBS"> <templateId root= "840.1.826526.07.02.224.2" /> <id nullFlavor="NA" /> < code codeSystem="local" code="GFR" displayName="eGFR" /> <statusCode code="completed" /> <effectiveTime value="074234035852" /> < value unit="mL/min" xsi:type="PQ" value="59" /> <interpretationCode codeSystem="local" code="*" /> <referenceRange> < observationRange> <text>>60</text> </observationRange > </referenceRange> </observation> </component> </ organizer> </entry> <entry> <organizer moodCode="EVN" classCode="BATTERY"> <templateId root="840.1.506546.07.02.224.1" /> <id nullFlavor= "NA" /> <code codeSystem="local" code="CBCWD" displayName="CBC With Platelet and Differential" /> <statusCode code="completed" /> < component> <observation moodCode="EVN" classCode="OBS"> < templateId root="10.29.840.1.279796.07.02.224.2" /> <id nullFlavor="NA " /> <code codeSystem="local" code="HCT" displayName="HCT" /> <statusCode code="completed" /> <effectiveTime value="187301773843" /> <value unit="%" xsi:type="PQ" value="35.3" /> < interpretationCode codeSystem="local" code="*" /> <referenceRange> <observationRange> <text>42.0-52.0</text> </ observationRange> </referenceRange> </observation> </ component> <component> <observation moodCode="EVN" classCode="OBS"> <templateId root="16.840.1.393112.10.20.22.4.2" /> <id nullFlavor="NA" /> <code codeSystem="local" code="HGB" displayName="HGB " /> <statusCode code="completed" /> <effectiveTime value= "000826723043" /> <value unit="g/dL" xsi:type="PQ" value="11.9" /> <interpretationCode codeSystem="local" code="*" /> < referenceRange> <observationRange> <text>14.0-18.0</text > </observationRange> </referenceRange> </observation > </component> <component> <observation moodCode="EVN" classCode="OBS"> <templateId root="10.29.840.1.477212...4.2" /> <id nullFlavor="NA" /> <code codeSystem="local" code="MCH" displayName="MCH" /> <statusCode code="completed" /> < effectiveTime value="684863016775" /> <value unit="pg" xsi:type="PQ" value="30.6" /> <referenceRange> <observationRange> <text>27.0-32.0</text> </observationRange> </ referenceRange> </observation> </component> <component> <observation moodCode="EVN" classCode="OBS"> <templateId root= "10.29.840.1.358586.10.20.22.4.2" /> <id nullFlavor="NA" /> < code codeSystem="local" code="MCHC" displayName="MCHC" /> <statusCode code="completed" /> <effectiveTime value="131788813804" /> < value unit="g/dL" xsi:type="PQ" value="33.7" /> <referenceRange> <observationRange> <text>32.0-36.0</text> </ observationRange> </referenceRange> </observation> </ component> <component> <observation moodCode="EVN" classCode="OBS"> <templateId root="216.840.1.752532.10.20.22.4.2" /> <id nullFlavor="NA" /> <code codeSystem="local" code="MCV" displayName="MCV " /> <statusCode code="completed" /> <effectiveTime value= "229877756785" /> <value unit="fL" xsi:type="PQ" value="90.7" /> <referenceRange> <observationRange> <text>82.0-99.0< /text> </observationRange> </referenceRange> </ observation> </component> <component> <observation moodCode= "EVN" classCode="OBS"> <templateId root="16.840.1.868343.10.20.22.4.2 " /> <id nullFlavor="NA" /> <code codeSystem="local" code="MPV " displayName="MPV" /> <statusCode code="completed" /> < effectiveTime value="544242437743" /> <value unit="fL" xsi:type="PQ" value="11.4" /> <referenceRange> <observationRange> <text>9.4-12.3</text> </observationRange> </ referenceRange> </observation> </component> <component> <observation moodCode="EVN" classCode="OBS"> <templateId root= "10.29.840.1.575857.2022.4.2" /> <id nullFlavor="NA" /> < code codeSystem="local" code="PLT" displayName="Platelet Count" /> < statusCode code="completed" /> <effectiveTime value="491771222147" /> <value unit="K/uL" xsi:type="PQ" value="180" /> < referenceRange> <observationRange> <text>150-400</text> </observationRange> </referenceRange> </observation > </component> <component> <observation moodCode="EVN" classCode="OBS"> <templateId root="10.29.840.1.627222.07.02.22.4.2" /> <id nullFlavor="NA" /> <code codeSystem="local" code="RBC" displayName="RBC" /> <statusCode code="completed" /> < effectiveTime value="862172334405" /> <value unit="10*6/uL" xsi:type= "PQ" value="3.89" /> <interpretationCode codeSystem="local" code="*" / > <referenceRange> <observationRange> <text> 4.60-6.20</text> </observationRange> </referenceRange> </observation> </component> <component> <observation moodCode="EVN" classCode="OBS"> <templateId root= "10.29.840.1.073943.102022.4.2" /> <id nullFlavor="NA" /> < code codeSystem="local" code="RDW" displayName="RDW" /> <statusCode code="completed" /> <effectiveTime value="038522702274" /> < value unit="%" xsi:type="PQ" value="13.6" /> <referenceRange> <observationRange> <text>11.5-14.5</text> </ observationRange> </referenceRange> </observation> </ component> <component> <observation moodCode="EVN" classCode="OBS"> <templateId root="216.840.1.864286.10..22.4.2" /> <id nullFlavor="NA" /> <code codeSystem="local" code="WBCIR" displayName= "WBC" /> <statusCode code="completed" /> <effectiveTime value= "199917154296" /> <value unit="K/uL" xsi:type="PQ" value="8.2" /> <referenceRange> <observationRange> <text>4.8-10.8< /text> </observationRange> </referenceRange> </ observation> </component> </organizer> </entry> <entry> <organizer moodCode="EVN" classCode="BATTERY"> <templateId root= "216.840.1.354108.10..22.4.1" /> <id nullFlavor="NA" /> <code codeSystem="local" code="TROP" displayName="Troponin" /> <statusCode code= "completed" /> <component> <observation moodCode="EVN" classCode= "OBS"> <templateId root="216.840.1.821189.10..22.4.2" /> < id nullFlavor="NA" /> <code codeSystem="local" code="TROP" displayName= "Troponin" /> <statusCode code="completed" /> <effectiveTime value="181015967553" /> <value unit="ng/mL" xsi:type="PQ" value="< 0.05" /> <referenceRange> <observationRange> < text><0.06</text> </observationRange> </referenceRange> </observation> </component> </organizer> </entry> <entry> < organizer moodCode="EVN" classCode="BATTERY"> <templateId root= "10.29.840.1.183120.07.02.22.4.1" /> <id nullFlavor="NA" /> <code codeSystem="local" code="UA" displayName="Urinalysis with reflex microscopic" / > <statusCode code="completed" /> <component> <observation moodCode="EVN" classCode="OBS"> <templateId root= "840.1.517030.07.02.22.4.2" /> <id nullFlavor="NA" /> < code codeSystem="local" code="UAPP" displayName="Appearance" /> < statusCode code="completed" /> <effectiveTime value="629615593792" /> <value unit="NA" xsi:type="PQ" value="Sl Cloudy" /> < referenceRange> <observationRange> <text /> < /observationRange> </referenceRange> </observation> </ component> <component> <observation moodCode="EVN" classCode="OBS"> <templateId root="10.29.840.1.130145.07.02.22.4.2" /> <id nullFlavor="NA" /> <code codeSystem="local" code="UBIL" displayName= "Bilirubin" /> <statusCode code="completed" /> <effectiveTime value="995198444718" /> <value unit="NA" xsi:type="PQ" value="Negative " /> <referenceRange> <observationRange> <text> Negative</text> </observationRange> </referenceRange> </observation> </component> <component> <observation moodCode ="EVN" classCode="OBS"> <templateId root= "10.29.840.1.761565.07.02.22.4.2" /> <id nullFlavor="NA" /> < code codeSystem="local" code="UBLD" displayName="Blood" /> <statusCode code="completed" /> <effectiveTime value="" /> < value unit="NA" xsi:type="PQ" value="Negative" /> <referenceRange> <observationRange> <text>Negative</text> </ observationRange> </referenceRange> </observation> </ component> <component> <observation moodCode="EVN" classCode="OBS"> <templateId root="10.29.840.1.655656.10.22.4.2" /> <id nullFlavor="NA" /> <code codeSystem="local" code="UCOLR" displayName= "Color" /> <statusCode code="completed" /> <effectiveTime value="" /> <value unit="NA" xsi:type="PQ" value="Yellow" / > <referenceRange> <observationRange> <text /> </observationRange> </referenceRange> </observation > </component> <component> <observation moodCode="EVN" classCode="OBS"> <templateId root="10.29.840.1.285820...4.2" /> <id nullFlavor="NA" /> <code codeSystem="local" code="UGLU" displayName="Glucose, Urine" /> <statusCode code="completed" /> <effectiveTime value="[id number]" /> <value unit="" xsi:type="PQ" value="Negative" /> <referenceRange> <observationRange> <text>Negative</text> </observationRange> </ referenceRange> </observation> </component> <component> <observation moodCode="EVN" classCode="OBS"> <templateId root= "10.29.840.1.850228.07.02.22.4.2" /> <id nullFlavor="NA" /> < code codeSystem="local" code="UKET" displayName="Ketones" /> < statusCode code="completed" /> <effectiveTime value="" /> <value unit="" xsi:type="PQ" value="Negative" /> < referenceRange> <observationRange> <text>Negative</text > </observationRange> </referenceRange> </observation > </component> <component> <observation moodCode="EVN" classCode="OBS"> <templateId root="10.29.840.1.017814.07.02.22.4.2" /> <id nullFlavor="NA" /> <code codeSystem="local" code="ULEU" displayName="Leukocyte Esterase" /> <statusCode code="completed" /> <effectiveTime value="" /> <value unit="NA" xsi:type ="PQ" value="Negative" /> <referenceRange> <observationRange > <text>Negative</text> </observationRange> </ referenceRange> </observation> </component> <component> <observation moodCode="EVN" classCode="OBS"> <templateId root= "840.1.832846....4.2" /> <id nullFlavor="NA" /> < code codeSystem="local" code="UNIT" displayName="Nitrites" /> < statusCode code="completed" /> <effectiveTime value="" /> <value unit="NA" xsi:type="PQ" value="Negative" /> < referenceRange> <observationRange> <text>Negative</text > </observationRange> </referenceRange> </observation > </component> <component> <observation moodCode="EVN" classCode="OBS"> <templateId root="840.1.530160.1022.4.2" /> <id nullFlavor="NA" /> <code codeSystem="local" code="UPH" displayName="pH" /> <statusCode code="completed" /> < effectiveTime value="" /> <value unit="NA" xsi:type="PQ" value="5.0" /> <referenceRange> <observationRange> <text>5.0-8.0</text> </observationRange> </ referenceRange> </observation> </component> <component> <observation moodCode="EVN" classCode="OBS"> <templateId root= "216.840.1.802916.07.02.22.4.2" /> <id nullFlavor="NA" /> < code codeSystem="local" code="UPRO" displayName="Protein" /> < statusCode code="completed" /> <effectiveTime value="" /> <value unit="NA" xsi:type="PQ" value="Negative" /> < referenceRange> <observationRange> <text>Negative</text > </observationRange> </referenceRange> </observation > </component> <component> <observation moodCode="EVN" classCode="OBS"> <templateId root="16.840.1.139162.07.02.22.4.2" /> <id nullFlavor="NA" /> <code codeSystem="local" code="USPG" displayName="Specific [place]" /> <statusCode code="completed" /> <effectiveTime value="" /> <value unit="NA" xsi:type= "PQ" value="1.015" /> <referenceRange> <observationRange> <text>1.003-1.030</text> </observationRange> </ referenceRange> </observation> </component> <component> <observation moodCode="EVN" classCode="OBS"> <templateId root= "16.840.1.395582.10.4.2" /> <id nullFlavor="NA" /> < code codeSystem="local" code="UTYP" displayName="UA Collection type" /> <statusCode code="completed" /> <effectiveTime value="[id number]" / > <value unit="NA" xsi:type="PQ" value="Clean Catch" /> < referenceRange> <observationRange> <text /> < /observationRange> </referenceRange> </observation> </ component> <component> <observation moodCode="EVN" classCode="OBS"> <templateId root="16.840.1.569617.07.02.22.4.2" /> <id nullFlavor="NA" /> <code codeSystem="local" code="UURO" displayName= "Urobilinogen" /> <statusCode code="completed" /> < effectiveTime value="[id number]" /> <value unit="mg/dL" xsi:type="PQ " value="2.0" /> <interpretationCode codeSystem="local" code="*" /> <referenceRange> <observationRange> <text><1.0 </text> </observationRange> </referenceRange> </ observation> </component> </organizer> </entry> <entry> <organizer moodCode="EVN" classCode="BATTERY"> <templateId root= "16.840.1.135442.10.4.1" /> <id nullFlavor="NA" /> <code codeSystem="local" code="MG" displayName="Magnesium" /> <statusCode code= "completed" /> <component> <observation moodCode="EVN" classCode= "OBS"> <templateId root="2.16.840.1.905153.10..4.2" /> < id nullFlavor="NA" /> <code codeSystem="local" code="MG" displayName= "Magnesium" /> <statusCode code="completed" /> <effectiveTime value="040362617217" /> <value unit="mg/dL" xsi:type="PQ" value="1.9" / > <referenceRange> <observationRange> <text>1.8 -2.5</text> </observationRange> </referenceRange> </ observation> </component> </organizer> </entry> <entry> <organizer moodCode="EVN" classCode="BATTERY"> <templateId root= "216.840.1.436150.10..4.1" /> <id nullFlavor="NA" /> <code codeSystem="local" code="CMP" displayName="Comprehensive Metabolic Panel (CMP)" /> <statusCode code="completed" /> <component> <observation moodCode="EVN" classCode="OBS"> <templateId root= "2.16.840.1.490308.10..22.4.2" /> <id nullFlavor="NA" /> < code codeSystem="local" code="ALB" displayName="Albumin" /> < statusCode code="completed" /> <effectiveTime value="[id number]" /> <value unit="g/dL" xsi:type="PQ" value="3.2" /> < interpretationCode codeSystem="local" code="*" /> <referenceRange> <observationRange> <text>3.5-4.8</text> </ observationRange> </referenceRange> </observation> </ component> <component> <observation moodCode="EVN" classCode="OBS"> <templateId root="16.840.1.315754.07.02.22.4.2" /> <id nullFlavor="NA" /> <code codeSystem="local" code="ALP" displayName= "Alkaline Phosphatase" /> <statusCode code="completed" /> < effectiveTime value="" /> <value unit="U/L" xsi:type="PQ" value="78" /> <referenceRange> <observationRange> <text>26-104</text> </observationRange> </referenceRange > </observation> </component> <component> <observation moodCode="EVN" classCode="OBS"> <templateId root= "216.840.1.108032.07.02.22.4.2" /> <id nullFlavor="NA" /> < code codeSystem="local" code="ALT" displayName="ALT (SGPT)" /> < statusCode code="completed" /> <effectiveTime value="" /> <value unit="U/L" xsi:type="PQ" value="58" /> <referenceRange > <observationRange> <text>17-63</text> </ observationRange> </referenceRange> </observation> </ component> <component> <observation moodCode="EVN" classCode="OBS"> <templateId root="216.840.1.203134.07.02..4.2" /> <id nullFlavor="NA" /> <code codeSystem="local" code="AGAP" displayName= "Anion Gap" /> <statusCode code="completed" /> <effectiveTime value="" /> <value unit="mEq/L" xsi:type="PQ" value="5" /> <referenceRange> <observationRange> <text>3-20 </text> </observationRange> </referenceRange> </ observation> </component> <component> <observation moodCode= "EVN" classCode="OBS"> <templateId root="10.29.840.1.676593.10.20.22.4.2 " /> <id nullFlavor="NA" /> <code codeSystem="local" code="AST " displayName="AST (SGOT)" /> <statusCode code="completed" /> <effectiveTime value="" /> <value unit="U/L" xsi:type="PQ" value="40" /> <referenceRange> <observationRange> <text>15-41</text> </observationRange> </referenceRange > </observation> </component> <component> <observation moodCode="EVN" classCode="OBS"> <templateId root= "10.29.840.1.696942.10..4.2" /> <id nullFlavor="NA" /> < code codeSystem="local" code="BILIT" displayName="Bilirubin Total" /> < statusCode code="completed" /> <effectiveTime value="" /> <value unit="mg/dL" xsi:type="PQ" value="0.8" /> < referenceRange> <observationRange> <text>0.2-1.2</text> </observationRange> </referenceRange> </observation > </component> <component> <observation moodCode="EVN" classCode="OBS"> <templateId root="10.29.840.1.686384.10.22.4.2" /> <id nullFlavor="NA" /> <code codeSystem="local" code="BUN" displayName="BUN" /> <statusCode code="completed" /> < effectiveTime value="" /> <value unit="mg/dL" xsi:type="PQ " value="27" /> <interpretationCode codeSystem="local" code="*" /> <referenceRange> <observationRange> <text>4-20</ text> </observationRange> </referenceRange> </ observation> </component> <component> <observation moodCode= "EVN" classCode="OBS"> <templateId root="10.29.840.1.682882.10.20.22.4.2 " /> <id nullFlavor="NA" /> <code codeSystem="local" code="CA " displayName="Calcium" /> <statusCode code="completed" /> < effectiveTime value="[id number]" /> <value unit="mg/dL" xsi:type="PQ " value="8.2" /> <interpretationCode codeSystem="local" code="*" /> <referenceRange> <observationRange> <text>8.6- 10.0</text> </observationRange> </referenceRange> </ observation> </component> <component> <observation moodCode= "EVN" classCode="OBS"> <templateId root="840.1.771572.1022.4.2 " /> <id nullFlavor="NA" /> <code codeSystem="local" code="CL " displayName="Chloride" /> <statusCode code="completed" /> < effectiveTime value="949545408280" /> <value unit="mEq/L" xsi:type="PQ " value="107" /> <referenceRange> <observationRange> <text>99-109</text> </observationRange> </ referenceRange> </observation> </component> <component> <observation moodCode="EVN" classCode="OBS"> <templateId root= "10.29.840.1.758575.10.20.22.4.2" /> <id nullFlavor="NA" /> < code codeSystem="local" code="CO2" displayName="CO2" /> <statusCode code="completed" /> <effectiveTime value="" /> < value unit="mEq/L" xsi:type="PQ" value="22" /> <referenceRange> <observationRange> <text>22-32</text> </ observationRange> </referenceRange> </observation> </ component> <component> <observation moodCode="EVN" classCode="OBS"> <templateId root="10.29.840.1.892233.07.02.22.4.2" /> <id nullFlavor="NA" /> <code codeSystem="local" code="CREAT" displayName= "Creatinine" /> <statusCode code="completed" /> < effectiveTime value="" /> <value unit="mg/dL" xsi:type="PQ " value="0.93" /> <referenceRange> <observationRange> <text>0.64-1.27</text> </observationRange> </ referenceRange> </observation> </component> <component> <observation moodCode="EVN" classCode="OBS"> <templateId root= "10.29.840.1.640773.07.02.22.4.2" /> <id nullFlavor="NA" /> < code codeSystem="local" code="GLOB" displayName="Globulin" /> < statusCode code="completed" /> <effectiveTime value="" /> <value unit="g/dL" xsi:type="PQ" value="2.7" /> < referenceRange> <observationRange> <text>1.9-4.3</text> </observationRange> </referenceRange> </observation > </component> <component> <observation moodCode="EVN" classCode="OBS"> <templateId root="10.29.840.1.865201.07.02.22.4.2" /> <id nullFlavor="NA" /> <code codeSystem="local" code="GLU" displayName="Glucose" /> <statusCode code="completed" /> < effectiveTime value="" /> <value unit="mg/dL" xsi:type="PQ " value="116" /> <interpretationCode codeSystem="local" code="*" /> <referenceRange> <observationRange> <text>70-100< /text> </observationRange> </referenceRange> </ observation> </component> <component> <observation moodCode= "EVN" classCode="OBS"> <templateId root="216.840.1.202912.07.02.22.4.2 " /> <id nullFlavor="NA" /> <code codeSystem="local" code="K" displayName="Potassium" /> <statusCode code="completed" /> < effectiveTime value="" /> <value unit="mEq/L" xsi:type="PQ " value="4.0" /> <referenceRange> <observationRange> <text>3.6-5.1</text> </observationRange> </ referenceRange> </observation> </component> <component> <observation moodCode="EVN" classCode="OBS"> <templateId root= "216.840.1.278851.07.02.22.4.2" /> <id nullFlavor="NA" /> < code codeSystem="local" code="TP" displayName="Protein" /> <statusCode code="completed" /> <effectiveTime value="" /> < value unit="g/dL" xsi:type="PQ" value="5.9" /> <interpretationCode codeSystem="local" code="*" /> <referenceRange> < observationRange> <text>6.1-7.9</text> </ observationRange> </referenceRange> </observation> </ component> <component> <observation moodCode="EVN" classCode="OBS"> <templateId root="2.16.840.1.574402.10..4.2" /> <id nullFlavor="NA" /> <code codeSystem="local" code="NA" displayName= "Sodium" /> <statusCode code="completed" /> <effectiveTime value="663041241484" /> <value unit="mEq/L" xsi:type="PQ" value="134" / > <interpretationCode codeSystem="local" code="*" /> < referenceRange> <observationRange> <text>136-144</text> </observationRange> </referenceRange> </observation > </component> </organizer> </entry> <entry> <organizer moodCode= "EVN" classCode="BATTERY"> <templateId root="2.16.840.1.513670.10..22.4.1 " /> <id nullFlavor="NA" /> <code codeSystem="local" code="GFR" displayName="eGFR" /> <statusCode code="completed" /> <component> <observation moodCode="EVN" classCode="OBS"> <templateId root= "2.16.840.1.948933.10..22.4.2" /> <id nullFlavor="NA" /> < code codeSystem="local" code="GFR" displayName="eGFR" /> <statusCode code="completed" /> <effectiveTime value="967497888372" /> < value unit="mL/min" xsi:type="PQ" value=">60" /> <referenceRange> <observationRange> <text>>60</text> </ observationRange> </referenceRange> </observation> </ component> </organizer> </entry> <entry> <organizer moodCode="EVN" classCode="BATTERY"> <templateId root="16.840.1.684166.10..4.1" /> <id nullFlavor="NA" /> <code codeSystem="local" code="TROP" displayName="Troponin" /> <statusCode code="completed" /> <component> <observation moodCode="EVN" classCode="OBS"> <templateId root= "840.1.130557.07.02.22.4.2" /> <id nullFlavor="NA" /> < code codeSystem="local" code="TROP" displayName="Troponin" /> < statusCode code="completed" /> <effectiveTime value="045081581712" /> <value unit="ng/mL" xsi:type="PQ" value="<0.05" /> < referenceRange> <observationRange> <text><0.06</text > </observationRange> </referenceRange> </observation > </component> </organizer> </entry> <entry> <organizer moodCode= "EVN" classCode="BATTERY"> <templateId root="840.1.132918.07.02.22.4.1 " /> <id nullFlavor="NA" /> <code codeSystem="local" code="TROP" displayName="Troponin" /> <statusCode code="completed" /> <component> <observation moodCode="EVN" classCode="OBS"> <templateId root= "10.29.840.1.492488.07.02.22.4.2" /> <id nullFlavor="NA" /> < code codeSystem="local" code="TROP" displayName="Troponin" /> < statusCode code="completed" /> <effectiveTime value="989337372637" /> <value unit="ng/mL" xsi:type="PQ" value="<0.05" /> < referenceRange> <observationRange> <text><0.06</text > </observationRange> </referenceRange> </observation > </component> </organizer> </entry> <entry> <organizer moodCode= "EVN" classCode="BATTERY"> <templateId root="216.840.1.811101.10..22.4.1 " /> <id nullFlavor="NA" /> <code codeSystem="local" code="UDRGH" displayName="Urine Drug Screen" /> <statusCode code="completed" /> < component> <observation moodCode="EVN" classCode="OBS"> < templateId root="216.840.1.632501.10..22.4.2" /> <id nullFlavor="NA " /> <code codeSystem="local" code="UAMP1" displayName="Amph/Meth/ Ecstasy" /> <statusCode code="completed" /> <effectiveTime value="" /> <value unit="NA" xsi:type="PQ" value="Negative " /> <referenceRange> <observationRange> <text /> </observationRange> </referenceRange> </ observation> </component> <component> <observation moodCode= "EVN" classCode="OBS"> <templateId root="216.840.1.577566.10..22.4.2 " /> <id nullFlavor="NA" /> <code codeSystem="local" code= "UBAR1" displayName="Barbiturates" /> <statusCode code="completed" /> <effectiveTime value="009750697823" /> <value unit="NA" xsi: type="PQ" value="Negative" /> <referenceRange> < observationRange> <text /> </observationRange> </referenceRange> </observation> </component> <component> <observation moodCode="EVN" classCode="OBS"> <templateId root= "216.840.1.416463.07.02.22.4.2" /> <id nullFlavor="NA" /> < code codeSystem="local" code="UBEN1" displayName="Benzodiazepine" /> < statusCode code="completed" /> <effectiveTime value="" /> <value unit="NA" xsi:type="PQ" value="Negative" /> < referenceRange> <observationRange> <text /> < /observationRange> </referenceRange> </observation> </ component> <component> <observation moodCode="EVN" classCode="OBS"> <templateId root="16.840.1.345987.07.02.22.4.2" /> <id nullFlavor="NA" /> <code codeSystem="local" code="UCAN1" displayName= "Cannabinoid" /> <statusCode code="completed" /> < effectiveTime value="" /> <value unit="NA" xsi:type="PQ" value="Positive" /> <interpretationCode codeSystem="local" code="*" /> <referenceRange> <observationRange> <text /> </observationRange> </referenceRange> </observation> </component> <component> <observation moodCode="EVN" classCode ="OBS"> <templateId root="16.840.1.429469.07.02.22.4.2" /> < id nullFlavor="NA" /> <code codeSystem="local" code="UCOC1" displayName ="Cocaine" /> <statusCode code="completed" /> <effectiveTime value="" /> <value unit="NA" xsi:type="PQ" value="Negative " /> <referenceRange> <observationRange> <text /> </observationRange> </referenceRange> </ observation> </component> <component> <observation moodCode= "EVN" classCode="OBS"> <templateId root="216.840.1.563987.10.22.4.2 " /> <id nullFlavor="NA" /> <code codeSystem="local" code= "UMTD1" displayName="EDDP (Methadone met.)" /> <statusCode code= "completed" /> <effectiveTime value="" /> <value unit="NA" xsi:type="PQ" value="Negative" /> <referenceRange> <observationRange> <text /> </observationRange> </referenceRange> </observation> </component> <component> <observation moodCode="EVN" classCode="OBS"> <templateId root= "10.29.840.1.641601.07.02.22.4.2" /> <id nullFlavor="NA" /> < code codeSystem="local" code="UOPI1" displayName="Opiate" /> < statusCode code="completed" /> <effectiveTime value="" /> <value unit="NA" xsi:type="PQ" value="Negative" /> < referenceRange> <observationRange> <text /> < /observationRange> </referenceRange> </observation> </ component> <component> <observation moodCode="EVN" classCode="OBS"> <templateId root="10.29.840.1.840429.07.02.22.4.2" /> <id nullFlavor="NA" /> <code codeSystem="local" code="UPCP1" displayName= "Phencyclidine (PCP)" /> <statusCode code="completed" /> < effectiveTime value="" /> <value unit="NA" xsi:type="PQ" value="Negative" /> <referenceRange> <observationRange> <text /> </observationRange> </referenceRange> </observation> </component> </organizer> </entry> <entry> < organizer moodCode="EVN" classCode="BATTERY"> <templateId root= "840.1.664129.10.4.1" /> <id nullFlavor="NA" /> <code codeSystem="local" code="CBCND" displayName="CBC With Platelet No Differential" /> <statusCode code="completed" /> <component> <observation moodCode="EVN" classCode="OBS"> <templateId root= "840.1.937316.10..4.2" /> <id nullFlavor="NA" /> < code codeSystem="local" code="HCT" displayName="HCT" /> <statusCode code="completed" /> <effectiveTime value="170957023982" /> < value unit="%" xsi:type="PQ" value="36.3" /> <interpretationCode codeSystem="local" code="*" /> <referenceRange> < observationRange> <text>42.0-52.0</text> </ observationRange> </referenceRange> </observation> </ component> <component> <observation moodCode="EVN" classCode="OBS"> <templateId root="840.1.620967.10.4.2" /> <id nullFlavor="NA" /> <code codeSystem="local" code="HGB" displayName="HGB " /> <statusCode code="completed" /> <effectiveTime value= "229296540515" /> <value unit="g/dL" xsi:type="PQ" value="12.3" /> <interpretationCode codeSystem="local" code="*" /> < referenceRange> <observationRange> <text>14.0-18.0</text > </observationRange> </referenceRange> </observation > </component> <component> <observation moodCode="EVN" classCode="OBS"> <templateId root="216.840.1.054978.10..22.4.2" /> <id nullFlavor="NA" /> <code codeSystem="local" code="MCH" displayName="MCH" /> <statusCode code="completed" /> < effectiveTime value="444150031459" /> <value unit="pg" xsi:type="PQ" value="30.5" /> <referenceRange> <observationRange> <text>27.0-32.0</text> </observationRange> </ referenceRange> </observation> </component> <component> <observation moodCode="EVN" classCode="OBS"> <templateId root= "10.29.840.1.856258.10..4.2" /> <id nullFlavor="NA" /> < code codeSystem="local" code="MCHC" displayName="MCHC" /> <statusCode code="completed" /> <effectiveTime value="829952233485" /> < value unit="g/dL" xsi:type="PQ" value="33.9" /> <referenceRange> <observationRange> <text>32.0-36.0</text> </ observationRange> </referenceRange> </observation> </ component> <component> <observation moodCode="EVN" classCode="OBS"> <templateId root="16.840.1.889772.10.20.22.4.2" /> <id nullFlavor="NA" /> <code codeSystem="local" code="MCV" displayName="MCV " /> <statusCode code="completed" /> <effectiveTime value= "776669640880" /> <value unit="fL" xsi:type="PQ" value="90.1" /> <referenceRange> <observationRange> <text>82.0-99.0< /text> </observationRange> </referenceRange> </ observation> </component> <component> <observation moodCode= "EVN" classCode="OBS"> <templateId root="16.840.1.760493.10..22.4.2 " /> <id nullFlavor="NA" /> <code codeSystem="local" code="MPV " displayName="MPV" /> <statusCode code="completed" /> < effectiveTime value="780682090784" /> <value unit="fL" xsi:type="PQ" value="10.4" /> <referenceRange> <observationRange> <text>9.4-12.3</text> </observationRange> </ referenceRange> </observation> </component> <component> <observation moodCode="EVN" classCode="OBS"> <templateId root= "10.29.840.1.808610...22.4.2" /> <id nullFlavor="NA" /> < code codeSystem="local" code="PLT" displayName="Platelet Count" /> < statusCode code="completed" /> <effectiveTime value="876864006278" /> <value unit="K/uL" xsi:type="PQ" value="177" /> < referenceRange> <observationRange> <text>150-400</text> </observationRange> </referenceRange> </observation > </component> <component> <observation moodCode="EVN" classCode="OBS"> <templateId root="10.29.840.1.301313.20.22.4.2" /> <id nullFlavor="NA" /> <code codeSystem="local" code="RBC" displayName="RBC" /> <statusCode code="completed" /> < effectiveTime value="864214166032" /> <value unit="10*6/uL" xsi:type= "PQ" value="4.03" /> <interpretationCode codeSystem="local" code="*" / > <referenceRange> <observationRange> <text> 4.60-6.20</text> </observationRange> </referenceRange> </observation> </component> <component> <observation moodCode="EVN" classCode="OBS"> <templateId root= "216.840.1.584212.07.02.22.4.2" /> <id nullFlavor="NA" /> < code codeSystem="local" code="RDW" displayName="RDW" /> <statusCode code="completed" /> <effectiveTime value="962696932245" /> < value unit="%" xsi:type="PQ" value="13.7" /> <referenceRange> <observationRange> <text>11.5-14.5</text> </ observationRange> </referenceRange> </observation> </ component> <component> <observation moodCode="EVN" classCode="OBS"> <templateId root="10.29.840.1.223377.22.4.2" /> <id nullFlavor="NA" /> <code codeSystem="local" code="WBCIR" displayName= "WBC" /> <statusCode code="completed" /> <effectiveTime value= "146272427287" /> <value unit="K/uL" xsi:type="PQ" value="8.0" /> <referenceRange> <observationRange> <text>4.8-10.8< /text> </observationRange> </referenceRange> </ observation> </component> </organizer> </entry> <entry> <organizer moodCode="EVN" classCode="BATTERY"> <templateId root= "216.840.1.458264.10..22.4.1" /> <id nullFlavor="NA" /> <code codeSystem="local" code="RENAL" displayName="Renal Function Panel" /> < statusCode code="completed" /> <component> <observation moodCode= "EVN" classCode="OBS"> <templateId root="216.840.1.564038.10...4.2 " /> <id nullFlavor="NA" /> <code codeSystem="local" code="ALB " displayName="Albumin" /> <statusCode code="completed" /> < effectiveTime value="" /> <value unit="g/dL" xsi:type="PQ" value="3.0" /> <interpretationCode codeSystem="local" code="*" /> <referenceRange> <observationRange> <text>3.5-4.8</ text> </observationRange> </referenceRange> </ observation> </component> <component> <observation moodCode= "EVN" classCode="OBS"> <templateId root="16.840.1.143359..22.4.2 " /> <id nullFlavor="NA" /> <code codeSystem="local" code= "AGAP" displayName="Anion Gap" /> <statusCode code="completed" /> <effectiveTime value="" /> <value unit="mEq/L" xsi: type="PQ" value="8" /> <referenceRange> <observationRange> <text>3-20</text> </observationRange> </ referenceRange> </observation> </component> <component> <observation moodCode="EVN" classCode="OBS"> <templateId root= "16.840.1.358790.10..4.2" /> <id nullFlavor="NA" /> < code codeSystem="local" code="BUN" displayName="BUN" /> <statusCode code="completed" /> <effectiveTime value="" /> < value unit="mg/dL" xsi:type="PQ" value="27" /> <interpretationCode codeSystem="local" code="*" /> <referenceRange> < observationRange> <text>4-20</text> </observationRange> </referenceRange> </observation> </component> < component> <observation moodCode="EVN" classCode="OBS"> < templateId root="10.29.840.1.066926.07.02.22.4.2" /> <id nullFlavor="NA " /> <code codeSystem="local" code="CA" displayName="Calcium" /> <statusCode code="completed" /> <effectiveTime value=" " /> <value unit="mg/dL" xsi:type="PQ" value="8.3" /> < interpretationCode codeSystem="local" code="*" /> <referenceRange> <observationRange> <text>8.6-10.0</text> </ observationRange> </referenceRange> </observation> </ component> <component> <observation moodCode="EVN" classCode="OBS"> <templateId root="10.29.840.1.962870.07.02.22.4.2" /> <id nullFlavor="NA" /> <code codeSystem="local" code="CL" displayName= "Chloride" /> <statusCode code="completed" /> <effectiveTime value="" /> <value unit="mEq/L" xsi:type="PQ" value="105" / > <referenceRange> <observationRange> <text>99- 109</text> </observationRange> </referenceRange> </ observation> </component> <component> <observation moodCode= "EVN" classCode="OBS"> <templateId root="216.840.1.937051.10..4.2 " /> <id nullFlavor="NA" /> <code codeSystem="local" code="CO2 " displayName="CO2" /> <statusCode code="completed" /> < effectiveTime value="" /> <value unit="mEq/L" xsi:type="PQ " value="21" /> <interpretationCode codeSystem="local" code="*" /> <referenceRange> <observationRange> <text>22-32</ text> </observationRange> </referenceRange> </ observation> </component> <component> <observation moodCode= "EVN" classCode="OBS"> <templateId root="10.29.840.1.947445.07.02.22.4.2 " /> <id nullFlavor="NA" /> <code codeSystem="local" code= "CREAT" displayName="Creatinine" /> <statusCode code="completed" /> <effectiveTime value="" /> <value unit="mg/dL" xsi: type="PQ" value="0.88" /> <referenceRange> <observationRange > <text>0.64-1.27</text> </observationRange> </ referenceRange> </observation> </component> <component> <observation moodCode="EVN" classCode="OBS"> <templateId root= "16.840.1.986728.10..22.4.2" /> <id nullFlavor="NA" /> < code codeSystem="local" code="GLU" displayName="Glucose" /> < statusCode code="completed" /> <effectiveTime value="" /> <value unit="mg/dL" xsi:type="PQ" value="103" /> < interpretationCode codeSystem="local" code="*" /> <referenceRange> <observationRange> <text>70-100</text> </ observationRange> </referenceRange> </observation> </ component> <component> <observation moodCode="EVN" classCode="OBS"> <templateId root="2.16.840.1.625603.10...4.2" /> <id nullFlavor="NA" /> <code codeSystem="local" code="PHOS" displayName= "Phosphorus" /> <statusCode code="completed" /> < effectiveTime value="" /> <value unit="mg/dL" xsi:type="PQ " value="3.2" /> <referenceRange> <observationRange> <text>2.4-4.7</text> </observationRange> </ referenceRange> </observation> </component> <component> <observation moodCode="EVN" classCode="OBS"> <templateId root= "2.16.840.1.640725.10..22.4.2" /> <id nullFlavor="NA" /> < code codeSystem="local" code="K" displayName="Potassium" /> < statusCode code="completed" /> <effectiveTime value="" /> <value unit="mEq/L" xsi:type="PQ" value="3.8" /> < referenceRange> <observationRange> <text>3.6-5.1</text> </observationRange> </referenceRange> </observation > </component> <component> <observation moodCode="EVN" classCode="OBS"> <templateId root="2.16.840.1.627008.10.20.22.4.2" /> <id nullFlavor="NA" /> <code codeSystem="local" code="NA" displayName="Sodium" /> <statusCode code="completed" /> < effectiveTime value="" /> <value unit="mEq/L" xsi:type="PQ " value="134" /> <interpretationCode codeSystem="local" code="*" /> <referenceRange> <observationRange> <text>136-144 </text> </observationRange> </referenceRange> </ observation> </component> </organizer> </entry> <entry> <organizer moodCode="EVN" classCode="BATTERY"> <templateId root= "2.16.840.1.176107.10..22.4.1" /> <id nullFlavor="NA" /> <code codeSystem="local" code="MG" displayName="Magnesium" /> <statusCode code= "completed" /> <component> <observation moodCode="EVN" classCode= "OBS"> <templateId root="2.16.840.1.680751.10.20.22.4.2" /> < id nullFlavor="NA" /> <code codeSystem="local" code="MG" displayName= "Magnesium" /> <statusCode code="completed" /> <effectiveTime value="" /> <value unit="mg/dL" xsi:type="PQ" value="1.9" / > <referenceRange> <observationRange> <text>1.8 -2.5</text> </observationRange> </referenceRange> </ observation> </component> </organizer> </entry> <entry> <organizer moodCode="EVN" classCode="BATTERY"> <templateId root= "10.29.840.1.255504.10.4.1" /> <id nullFlavor="NA" /> <code codeSystem="local" code="GFR" displayName="eGFR" /> <statusCode code= "completed" /> <component> <observation moodCode="EVN" classCode= "OBS"> <templateId root="840.1.222848.07.02.22.4.2" /> < id nullFlavor="NA" /> <code codeSystem="local" code="GFR" displayName= "eGFR" /> <statusCode code="completed" /> <effectiveTime value ="130543932745" /> <value unit="mL/min" xsi:type="PQ" value=">60" / > <referenceRange> <observationRange> <text>&gt ;60</text> </observationRange> </referenceRange> </ observation> </component> </organizer> </entry> <entry> <organizer moodCode="EVN" classCode="BATTERY"> <templateId root= "840.1.675979.07.02.22.4.1" /> <id nullFlavor="NA" /> <code codeSystem="local" code="CBCND" displayName="CBC With Platelet No Differential" /> <statusCode code="completed" /> <component> <observation moodCode="EVN" classCode="OBS"> <templateId root= "10.29.840.1.803561.22.4.2" /> <id nullFlavor="NA" /> < code codeSystem="local" code="HCT" displayName="HCT" /> <statusCode code="completed" /> <effectiveTime value="999048114856" /> < value unit="%" xsi:type="PQ" value="38.0" /> <interpretationCode codeSystem="local" code="*" /> <referenceRange> < observationRange> <text>42.0-52.0</text> </ observationRange> </referenceRange> </observation> </ component> <component> <observation moodCode="EVN" classCode="OBS"> <templateId root="216.840.1.368260.10.20.22.4.2" /> <id nullFlavor="NA" /> <code codeSystem="local" code="HGB" displayName="HGB " /> <statusCode code="completed" /> <effectiveTime value= "070435779070" /> <value unit="g/dL" xsi:type="PQ" value="12.9" /> <interpretationCode codeSystem="local" code="*" /> < referenceRange> <observationRange> <text>14.0-18.0</text > </observationRange> </referenceRange> </observation > </component> <component> <observation moodCode="EVN" classCode="OBS"> <templateId root="10.29.840.1.352353.22.4.2" /> <id nullFlavor="NA" /> <code codeSystem="local" code="MCH" displayName="MCH" /> <statusCode code="completed" /> < effectiveTime value="965415008613" /> <value unit="pg" xsi:type="PQ" value="31.2" /> <referenceRange> <observationRange> <text>27.0-32.0</text> </observationRange> </ referenceRange> </observation> </component> <component> <observation moodCode="EVN" classCode="OBS"> <templateId root= "10.29.840.1.647228.10.20.22.4.2" /> <id nullFlavor="NA" /> < code codeSystem="local" code="MCHC" displayName="MCHC" /> <statusCode code="completed" /> <effectiveTime value="366161167472" /> < value unit="g/dL" xsi:type="PQ" value="33.9" /> <referenceRange> <observationRange> <text>32.0-36.0</text> </ observationRange> </referenceRange> </observation> </ component> <component> <observation moodCode="EVN" classCode="OBS"> <templateId root="216.840.1.834738.10.20.22.4.2" /> <id nullFlavor="NA" /> <code codeSystem="local" code="MCV" displayName="MCV " /> <statusCode code="completed" /> <effectiveTime value= "053215802778" /> <value unit="fL" xsi:type="PQ" value="91.8" /> <referenceRange> <observationRange> <text>82.0-99.0< /text> </observationRange> </referenceRange> </ observation> </component> <component> <observation moodCode= "EVN" classCode="OBS"> <templateId root="216.840.1.725432.10..22.4.2 " /> <id nullFlavor="NA" /> <code codeSystem="local" code="MPV " displayName="MPV" /> <statusCode code="completed" /> < effectiveTime value="350466501746" /> <value unit="fL" xsi:type="PQ" value="10.6" /> <referenceRange> <observationRange> <text>9.4-12.3</text> </observationRange> </ referenceRange> </observation> </component> <component> <observation moodCode="EVN" classCode="OBS"> <templateId root= "16.840.1.113974.10.20.22.4.2" /> <id nullFlavor="NA" /> < code codeSystem="local" code="PLT" displayName="Platelet Count" /> < statusCode code="completed" /> <effectiveTime value="619888640049" /> <value unit="K/uL" xsi:type="PQ" value="221" /> < referenceRange> <observationRange> <text>150-400</text> </observationRange> </referenceRange> </observation > </component> <component> <observation moodCode="EVN" classCode="OBS"> <templateId root="10.29.840.1.950076.102022.4.2" /> <id nullFlavor="NA" /> <code codeSystem="local" code="RBC" displayName="RBC" /> <statusCode code="completed" /> < effectiveTime value="803519272467" /> <value unit="10*6/uL" xsi:type= "PQ" value="4.14" /> <interpretationCode codeSystem="local" code="*" / > <referenceRange> <observationRange> <text> 4.60-6.20</text> </observationRange> </referenceRange> </observation> </component> <component> <observation moodCode="EVN" classCode="OBS"> <templateId root= "10.29.840.1.413396.10.20.22.4.2" /> <id nullFlavor="NA" /> < code codeSystem="local" code="RDW" displayName="RDW" /> <statusCode code="completed" /> <effectiveTime value="895861517214" /> < value unit="%" xsi:type="PQ" value="14.0" /> <referenceRange> <observationRange> <text>11.5-14.5</text> </ observationRange> </referenceRange> </observation> </ component> <component> <observation moodCode="EVN" classCode="OBS"> <templateId root="16.840.1.169858.10.20.22.4.2" /> <id nullFlavor="NA" /> <code codeSystem="local" code="WBCIR" displayName= "WBC" /> <statusCode code="completed" /> <effectiveTime value= "266570688385" /> <value unit="K/uL" xsi:type="PQ" value="8.9" /> <referenceRange> <observationRange> <text>4.8-10.8< /text> </observationRange> </referenceRange> </ observation> </component> </organizer> </entry> <entry> <organizer moodCode="EVN" classCode="BATTERY"> <templateId root= "16.840.1.734707.10.20.22.4.1" /> <id nullFlavor="NA" /> <code codeSystem="local" code="LACID" displayName="Lactic Acid Venous" /> < statusCode code="completed" /> <component> <observation moodCode= "EVN" classCode="OBS"> <templateId root="16.840.1.466141.10.20.22.4.2 " /> <id nullFlavor="NA" /> <code codeSystem="local" code= "LACID" displayName="Lactic Acid Venous" /> <statusCode code="completed " /> <effectiveTime value="275847504825" /> <value unit="mEq/L " xsi:type="PQ" value="1.2" /> <referenceRange> < observationRange> <text>0.5-2.0</text> </ observationRange> </referenceRange> </observation> </ component> </organizer> </entry> <entry> <organizer moodCode="EVN" classCode="BATTERY"> <templateId root="10.29.840.1.733724.10.4.1" /> <id nullFlavor="NA" /> <code codeSystem="local" code="BNP" displayName ="B-Type Natriuretic Peptide" /> <statusCode code="completed" /> < component> <observation moodCode="EVN" classCode="OBS"> < templateId root="840.1.944955.07.02.224.2" /> <id nullFlavor="NA " /> <code codeSystem="local" code="BNP" displayName="B-Type Natriuretic Peptide" /> <statusCode code="completed" /> < effectiveTime value="299459287596" /> <value unit="pg/mL" xsi:type="PQ " value="34" /> <referenceRange> <observationRange> <text>0-99</text> </observationRange> </referenceRange > </observation> </component> </organizer> </entry> <entry> <organizer moodCode="EVN" classCode="BATTERY"> <templateId root= "10.29.840.1.356271.07.02.22.4.1" /> <id nullFlavor="NA" /> <code codeSystem="local" code="TROP" displayName="Troponin" /> <statusCode code= "completed" /> <component> <observation moodCode="EVN" classCode= "OBS"> <templateId root="10.29.840.1.013365.07.02.22.4.2" /> < id nullFlavor="NA" /> <code codeSystem="local" code="TROP" displayName= "Troponin" /> <statusCode code="completed" /> <effectiveTime value="591472988726" /> <value unit="ng/mL" xsi:type="PQ" value="< 0.05" /> <referenceRange> <observationRange> < text><0.06</text> </observationRange> </referenceRange> </observation> </component> </organizer> </entry> <entry> < organizer moodCode="EVN" classCode="BATTERY"> <templateId root= "16.840.1.172409.10..22.4.1" /> <id nullFlavor="NA" /> <code codeSystem="local" code="BMP" displayName="Basic Metabolic Panel (BMP)" /> <statusCode code="completed" /> <component> <observation moodCode= "EVN" classCode="OBS"> <templateId root="216.840.1.684839.10...4.2 " /> <id nullFlavor="NA" /> <code codeSystem="local" code= "AGAP" displayName="Anion Gap" /> <statusCode code="completed" /> <effectiveTime value="370246699739" /> <value unit="mEq/L" xsi: type="PQ" value="12" /> <referenceRange> <observationRange> <text>3-20</text> </observationRange> </ referenceRange> </observation> </component> <component> <observation moodCode="EVN" classCode="OBS"> <templateId root= "16.840.1.598528.10..22.4.2" /> <id nullFlavor="NA" /> < code codeSystem="local" code="BUN" displayName="BUN" /> <statusCode code="completed" /> <effectiveTime value="" /> < value unit="mg/dL" xsi:type="PQ" value="44" /> <interpretationCode codeSystem="local" code="*" /> <referenceRange> < observationRange> <text>4-20</text> </observationRange> </referenceRange> </observation> </component> < component> <observation moodCode="EVN" classCode="OBS"> < templateId root="16.840.1.340791.10.2022.4.2" /> <id nullFlavor="NA " /> <code codeSystem="local" code="CA" displayName="Calcium" /> <statusCode code="completed" /> <effectiveTime value="512855946509 " /> <value unit="mg/dL" xsi:type="PQ" value="8.4" /> < interpretationCode codeSystem="local" code="*" /> <referenceRange> <observationRange> <text>8.6-10.0</text> </ observationRange> </referenceRange> </observation> </ component> <component> <observation moodCode="EVN" classCode="OBS"> <templateId root="840.1.062608.1022.4.2" /> <id nullFlavor="NA" /> <code codeSystem="local" code="CL" displayName= "Chloride" /> <statusCode code="completed" /> <effectiveTime value="" /> <value unit="mEq/L" xsi:type="PQ" value="101" / > <referenceRange> <observationRange> <text>99- 109</text> </observationRange> </referenceRange> </ observation> </component> <component> <observation moodCode= "EVN" classCode="OBS"> <templateId root="10.29.840.1.076327.10.2022.4.2 " /> <id nullFlavor="NA" /> <code codeSystem="local" code="CO2 " displayName="CO2" /> <statusCode code="completed" /> < effectiveTime value="" /> <value unit="mEq/L" xsi:type="PQ " value="19" /> <interpretationCode codeSystem="local" code="*" /> <referenceRange> <observationRange> <text>22-32</ text> </observationRange> </referenceRange> </ observation> </component> <component> <observation moodCode= "EVN" classCode="OBS"> <templateId root="2.16.840.1.280397.10...4.2 " /> <id nullFlavor="NA" /> <code codeSystem="local" code= "CREAT" displayName="Creatinine" /> <statusCode code="completed" /> <effectiveTime value="" /> <value unit="mg/dL" xsi: type="PQ" value="1.25" /> <referenceRange> <observationRange > <text>0.64-1.27</text> </observationRange> </ referenceRange> </observation> </component> <component> <observation moodCode="EVN" classCode="OBS"> <templateId root= "216.840.1.831830.10..22.4.2" /> <id nullFlavor="NA" /> < code codeSystem="local" code="GLU" displayName="Glucose" /> < statusCode code="completed" /> <effectiveTime value="" /> <value unit="mg/dL" xsi:type="PQ" value="76" /> < referenceRange> <observationRange> <text>70-100</text> </observationRange> </referenceRange> </observation> </component> <component> <observation moodCode="EVN" classCode ="OBS"> <templateId root="840.1.766154.10.22.4.2" /> < id nullFlavor="NA" /> <code codeSystem="local" code="K" displayName= "Potassium" /> <statusCode code="completed" /> <effectiveTime value="246258392731" /> <value unit="mEq/L" xsi:type="PQ" value="4.2" / > <referenceRange> <observationRange> <text>3.6 -5.1</text> </observationRange> </referenceRange> </ observation> </component> <component> <observation moodCode= "EVN" classCode="OBS"> <templateId root="840.1.393145.07.02.22.4.2 " /> <id nullFlavor="NA" /> <code codeSystem="local" code="NA " displayName="Sodium" /> <statusCode code="completed" /> < effectiveTime value="134782575647" /> <value unit="mEq/L" xsi:type="PQ " value="132" /> <interpretationCode codeSystem="local" code="*" /> <referenceRange> <observationRange> <text>136-144 </text> </observationRange> </referenceRange> </ observation> </component> </organizer> </entry> <entry> <organizer moodCode="EVN" classCode="BATTERY"> <templateId root= "840.1.516055.07.02.22.4.1" /> <id nullFlavor="NA" /> <code codeSystem="local" code="MG" displayName="Magnesium" /> <statusCode code= "completed" /> <component> <observation moodCode="EVN" classCode= "OBS"> <templateId root="840.1.984186.07.02.22.4.2" /> < id nullFlavor="NA" /> <code codeSystem="local" code="MG" displayName= "Magnesium" /> <statusCode code="completed" /> <effectiveTime value="973788001683" /> <value unit="mg/dL" xsi:type="PQ" value="1.8" / > <referenceRange> <observationRange> <text>1.8 -2.5</text> </observationRange> </referenceRange> </ observation> </component> </organizer> </entry> <entry> <organizer moodCode="EVN" classCode="BATTERY"> <templateId root= "16.840.1.567769.07.02.22.4.1" /> <id nullFlavor="NA" /> <code codeSystem="local" code="GFR" displayName="eGFR" /> <statusCode code= "completed" /> <component> <observation moodCode="EVN" classCode= "OBS"> <templateId root="16.840.1.838324.07.02.22.4.2" /> < id nullFlavor="NA" /> <code codeSystem="local" code="GFR" displayName= "eGFR" /> <statusCode code="completed" /> <effectiveTime value ="181826590590" /> <value unit="mL/min" xsi:type="PQ" value=">60" / > <referenceRange> <observationRange> <text>&gt ;60</text> </observationRange> </referenceRange> </ observation> </component> </organizer> </entry> <entry> <organizer moodCode="EVN" classCode="BATTERY"> <templateId root= "16.840.1.731331.07.02.22.4.1" /> <id nullFlavor="NA" /> <code codeSystem="local" code="LIVER" displayName="Hepatic Function Panel" /> < statusCode code="completed" /> <component> <observation moodCode= "EVN" classCode="OBS"> <templateId root="10.29.840.1.287511.07.02.22.4.2 " /> <id nullFlavor="NA" /> <code codeSystem="local" code="ALB " displayName="Albumin" /> <statusCode code="completed" /> < effectiveTime value="" /> <value unit="g/dL" xsi:type="PQ" value="3.5" /> <referenceRange> <observationRange> <text>3.5-4.8</text> </observationRange> </ referenceRange> </observation> </component> <component> <observation moodCode="EVN" classCode="OBS"> <templateId root= "840.1.174302.07.02.22.4.2" /> <id nullFlavor="NA" /> < code codeSystem="local" code="ALP" displayName="Alkaline Phosphatase" /> <statusCode code="completed" /> <effectiveTime value="" /> <value unit="U/L" xsi:type="PQ" value="78" /> < referenceRange> <observationRange> <text>26-104</text> </observationRange> </referenceRange> </observation> </component> <component> <observation moodCode="EVN" classCode ="OBS"> <templateId root="10.29.840.1.831555.07.02.22.4.2" /> < id nullFlavor="NA" /> <code codeSystem="local" code="ALT" displayName= "ALT (SGPT)" /> <statusCode code="completed" /> < effectiveTime value="" /> <value unit="U/L" xsi:type="PQ" value="46" /> <referenceRange> <observationRange> <text>17-63</text> </observationRange> </referenceRange > </observation> </component> <component> <observation moodCode="EVN" classCode="OBS"> <templateId root= "10.29.840.1.569296.10..22.4.2" /> <id nullFlavor="NA" /> < code codeSystem="local" code="AST" displayName="AST (SGOT)" /> < statusCode code="completed" /> <effectiveTime value="044610742247" /> <value unit="U/L" xsi:type="PQ" value="44" /> < interpretationCode codeSystem="local" code="*" /> <referenceRange> <observationRange> <text>15-41</text> </ observationRange> </referenceRange> </observation> </ component> <component> <observation moodCode="EVN" classCode="OBS"> <templateId root="10.29.840.1.309938...4.2" /> <id nullFlavor="NA" /> <code codeSystem="local" code="BILID" displayName= "Bilirubin Direct" /> <statusCode code="completed" /> < effectiveTime value="148260856624" /> <value unit="mg/dL" xsi:type="PQ " value="0.2" /> <referenceRange> <observationRange> <text>0.0-0.2</text> </observationRange> </ referenceRange> </observation> </component> <component> <observation moodCode="EVN" classCode="OBS"> <templateId root= "10.29.840.1.544517.10..22.4.2" /> <id nullFlavor="NA" /> < code codeSystem="local" code="BILII" displayName="Bilirubin Indirect" /> <statusCode code="completed" /> <effectiveTime value="244032680094" /> <value unit="mg/dL" xsi:type="PQ" value="0.2" /> < referenceRange> <observationRange> <text>0.0-1.0</text> </observationRange> </referenceRange> </observation > </component> <component> <observation moodCode="EVN" classCode="OBS"> <templateId root="216.840.1.686310.10..22.4.2" /> <id nullFlavor="NA" /> <code codeSystem="local" code="BILIT" displayName="Bilirubin Total" /> <statusCode code="completed" /> <effectiveTime value="103509835021" /> <value unit="mg/dL" xsi:type ="PQ" value="0.4" /> <referenceRange> <observationRange> <text>0.2-1.2</text> </observationRange> </ referenceRange> </observation> </component> <component> <observation moodCode="EVN" classCode="OBS"> <templateId root= "216.840.1.187977.10.20.22.4.2" /> <id nullFlavor="NA" /> < code codeSystem="local" code="TP" displayName="Protein" /> <statusCode code="completed" /> <effectiveTime value="608754721342" /> < value unit="g/dL" xsi:type="PQ" value="6.5" /> <referenceRange> <observationRange> <text>6.1-7.9</text> </ observationRange> </referenceRange> </observation> </ component> </organizer> </entry> <entry> <organizer moodCode="EVN" classCode="BATTERY"> <templateId root="10.29.840.1.635731.10..22.4.1" /> <id nullFlavor="NA" /> <code codeSystem="local" code="ABGRT" displayName="Blood Gases, Arterial (RT)" /> <statusCode code="completed" / > <component> <observation moodCode="EVN" classCode="OBS"> <templateId root="10.29.840.1.823176.10..22.4.2" /> <id nullFlavor="NA " /> <code codeSystem="local" code="YNES" displayName="Arterial Base Excess" /> <statusCode code="completed" /> <effectiveTime value="201358472874" /> <value unit="NA" xsi:type="PQ" value="-3" /> <interpretationCode codeSystem="local" code="*" /> < referenceRange> <observationRange> <text>0-2</text> </observationRange> </referenceRange> </observation> </component> <component> <observation moodCode="EVN" classCode= "OBS"> <templateId root="10.29.840.1.321563.10...4.2" /> < id nullFlavor="NA" /> <code codeSystem="local" code="AHCO3" displayName ="Arterial Bicarbonate" /> <statusCode code="completed" /> < effectiveTime value="574239608949" /> <value unit="mEq/L" xsi:type="PQ " value="21" /> <interpretationCode codeSystem="local" code="*" /> <referenceRange> <observationRange> <text>22-26</ text> </observationRange> </referenceRange> </ observation> </component> <component> <observation moodCode= "EVN" classCode="OBS"> <templateId root="840.1.360528.10.20.22.4.2 " /> <id nullFlavor="NA" /> <code codeSystem="local" code= "AOSAT" displayName="Arterial O2 Saturation" /> <statusCode code= "completed" /> <effectiveTime value="674845027346" /> <value unit="%" xsi:type="PQ" value="92.3" /> <referenceRange> <observationRange> <text>90.0-97.0</text> </ observationRange> </referenceRange> </observation> </ component> <component> <observation moodCode="EVN" classCode="OBS"> <templateId root="16.840.1.740904.10...4.2" /> <id nullFlavor="NA" /> <code codeSystem="local" code="APCO2" displayName= "Arterial PCO2" /> <statusCode code="completed" /> < effectiveTime value="176324270751" /> <value unit="mmHg" xsi:type="PQ" value="34" /> <interpretationCode codeSystem="local" code="*" /> <referenceRange> <observationRange> <text>35-45</ text> </observationRange> </referenceRange> </ observation> </component> <component> <observation moodCode= "EVN" classCode="OBS"> <templateId root="16.840.1.151914.10.20.22.4.2 " /> <id nullFlavor="NA" /> <code codeSystem="local" code="APH " displayName="Arterial PH" /> <statusCode code="completed" /> <effectiveTime value="929806037256" /> <value unit="NA" xsi:type="PQ " value="7.41" /> <referenceRange> <observationRange> <text>7.35-7.45</text> </observationRange> </ referenceRange> </observation> </component> <component> <observation moodCode="EVN" classCode="OBS"> <templateId root= "16.840.1.919983.1022.4.2" /> <id nullFlavor="NA" /> < code codeSystem="local" code="APO2" displayName="Arterial PO2" /> < statusCode code="completed" /> <effectiveTime value="857397072479" /> <value unit="mmHg" xsi:type="PQ" value="65" /> < interpretationCode codeSystem="local" code="*" /> <referenceRange> <observationRange> <text>80-100</text> </ observationRange> </referenceRange> </observation> </ component> <component> <observation moodCode="EVN" classCode="OBS"> <templateId root="10.29.840.1.121417.07.02.22.4.2" /> <id nullFlavor="NA" /> <code codeSystem="local" code="AFLOW" displayName= "Arterial LPM" /> <statusCode code="completed" /> < effectiveTime value="497801352881" /> <value unit="L/min" xsi:type="PQ " value="5.0" /> <referenceRange> <observationRange> <text /> </observationRange> </referenceRange> </observation> </component> <component> <observation moodCode ="EVN" classCode="OBS"> <templateId root= "10.29.840.1.654585.10..4.2" /> <id nullFlavor="NA" /> < code codeSystem="local" code="AO2PN" displayName="O2 Panel" /> < statusCode code="completed" /> <effectiveTime value="248016400251" /> <value unit="" xsi:type="PQ" value="nasal cannula" /> < referenceRange> <observationRange> <text /> < /observationRange> </referenceRange> </observation> </ component> <component> <observation moodCode="EVN" classCode="OBS"> <templateId root="216.840.1.519465.10..22.4.2" /> <id nullFlavor="NA" /> <code codeSystem="local" code="ASITE" displayName= "Spec Site" /> <statusCode code="completed" /> <effectiveTime value="615765855724" /> <value unit="" xsi:type="PQ" value="A. radialis r." /> <referenceRange> <observationRange> <text /> </observationRange> </referenceRange> </observation> </component> </organizer> </entry> <entry> < organizer moodCode="EVN" classCode="BATTERY"> <templateId root= "16.840.1.757241.10..22.4.1" /> <id nullFlavor="NA" /> <code codeSystem="local" code="VCHMN" displayName="Chem 8 NPT" /> <statusCode code="completed" /> <component> <observation moodCode="EVN" classCode="OBS"> <templateId root="16.840.1.498282.10..22.4.2" /> <id nullFlavor="NA" /> <code codeSystem="local" code="VAGAP" displayName="Anion Gap" /> <statusCode code="completed" /> < effectiveTime value="787245104501" /> <value unit="mEq/L" xsi:type="PQ " value="12" /> <referenceRange> <observationRange> <text>3-20</text> </observationRange> </referenceRange > </observation> </component> <component> <observation moodCode="EVN" classCode="OBS"> <templateId root= "16.840.1.137053.10..4.2" /> <id nullFlavor="NA" /> < code codeSystem="local" code="VBUNN" displayName="BUN Venous" /> < statusCode code="completed" /> <effectiveTime value="" /> <value unit="mg/dl" xsi:type="PQ" value="24" /> < interpretationCode codeSystem="local" code="*" /> <referenceRange> <observationRange> <text>4-20</text> </ observationRange> </referenceRange> </observation> </ component> <component> <observation moodCode="EVN" classCode="OBS"> <templateId root="10.29.840.1.828992.07.02.22.4.2" /> <id nullFlavor="NA" /> <code codeSystem="local" code="VCANN" displayName= "Calcium Ionized Venous" /> <statusCode code="completed" /> < effectiveTime value="" /> <value unit="mmol/L" xsi:type="PQ " value="1.01" /> <interpretationCode codeSystem="local" code="*" /> <referenceRange> <observationRange> <text>1.19- 1.41</text> </observationRange> </referenceRange> </ observation> </component> <component> <observation moodCode= "EVN" classCode="OBS"> <templateId root="10.29.840.1.073609..22.4.2 " /> <id nullFlavor="NA" /> <code codeSystem="local" code= "VCREN" displayName="Creatinine Venous" /> <statusCode code="completed " /> <effectiveTime value="" /> <value unit="mg/dL " xsi:type="PQ" value="1.0" /> <referenceRange> < observationRange> <text>0.7-1.2</text> </ observationRange> </referenceRange> </observation> </ component> <component> <observation moodCode="EVN" classCode="OBS"> <templateId root="10.29.840.1.104416.10..4.2" /> <id nullFlavor="NA" /> <code codeSystem="local" code="VGLNN" displayName= "Glucose Venous" /> <statusCode code="completed" /> < effectiveTime value="" /> <value unit="mg/dL" xsi:type="PQ " value="83" /> <referenceRange> <observationRange> <text>70-100</text> </observationRange> </ referenceRange> </observation> </component> <component> <observation moodCode="EVN" classCode="OBS"> <templateId root= "10.29.840.1.995956.10...4.2" /> <id nullFlavor="NA" /> < code codeSystem="local" code="VKNN" displayName="Potassium, WB" /> < statusCode code="completed" /> <effectiveTime value="" /> <value unit="mEq/L" xsi:type="PQ" value="3.5" /> < interpretationCode codeSystem="local" code="*" /> <referenceRange> <observationRange> <text>3.6-5.1</text> </ observationRange> </referenceRange> </observation> </ component> <component> <observation moodCode="EVN" classCode="OBS"> <templateId root="10.29.830.1.398740.10..22.4.2" /> <id nullFlavor="NA" /> <code codeSystem="local" code="VNANN" displayName= "Sodium Venous" /> <statusCode code="completed" /> < effectiveTime value="" /> <value unit="mEq/L" xsi:type="PQ " value="137" /> <referenceRange> <observationRange> <text>136-144</text> </observationRange> </ referenceRange> </observation> </component> <component> <observation moodCode="EVN" classCode="OBS"> <templateId root= "216.840.1.792871.10...4.2" /> <id nullFlavor="NA" /> < code codeSystem="local" code="VTCNN" displayName="Total CO2 Venous" /> <statusCode code="completed" /> <effectiveTime value="" /> <value unit="mEq/L" xsi:type="PQ" value="22" /> < interpretationCode codeSystem="local" code="*" /> <referenceRange> <observationRange> <text>25-29</text> </ observationRange> </referenceRange> </observation> </ component> <component> <observation moodCode="EVN" classCode="OBS"> <templateId root="16.840.1.356015.1022.4.2" /> <id nullFlavor="NA" /> <code codeSystem="local" code="VCLN" displayName= "Venous CL" /> <statusCode code="completed" /> <effectiveTime value="515621536156" /> <value unit="mEq/L" xsi:type="PQ" value="103" / > <referenceRange> <observationRange> <text>99- 109</text> </observationRange> </referenceRange> </ observation> </component> <component> <observation moodCode= "EVN" classCode="OBS"> <templateId root="216.840.1.561836.10..4.2 " /> <id nullFlavor="NA" /> <code codeSystem="local" code= "VHCNN" displayName="HCT Venous" /> <statusCode code="completed" /> <effectiveTime value="" /> <value unit="%" xsi: type="PQ" value="35.0" /> <interpretationCode codeSystem="local" code= "*" /> <referenceRange> <observationRange> < text>42.0-52.0</text> </observationRange> </referenceRange> </observation> </component> <component> <observation moodCode="EVN" classCode="OBS"> <templateId root= "2.840.1.456270.07.02.22.4.2" /> <id nullFlavor="NA" /> < code codeSystem="local" code="VHGNN" displayName="HGB Venous NPT" /> < statusCode code="completed" /> <effectiveTime value="" /> <value unit="g/dL" xsi:type="PQ" value="11.9" /> < interpretationCode codeSystem="local" code="*" /> <referenceRange> <observationRange> <text>14.0-16.0</text> </ observationRange> </referenceRange> </observation> </ component> </organizer> </entry> <entry> <organizer moodCode="EVN" classCode="BATTERY"> <templateId root="216.840.1.560925.10.2022.4.1" /> <id nullFlavor="NA" /> <code codeSystem="local" code="CBCWD" displayName="CBC With Platelet and Differential" /> <statusCode code= "completed" /> <component> <observation moodCode="EVN" classCode= "OBS"> <templateId root="10.29.840.1.265401.10..4.2" /> < id nullFlavor="NA" /> <code codeSystem="local" code="ABASR" displayName ="Absolute Basophils" /> <statusCode code="completed" /> < effectiveTime value="445206518742" /> <value unit="10*3/uL" xsi:type= "PQ" value="0.02" /> <referenceRange> <observationRange> <text>0.00-0.20</text> </observationRange> </ referenceRange> </observation> </component> <component> <observation moodCode="EVN" classCode="OBS"> <templateId root= "840.1.341040.07.02.22.4.2" /> <id nullFlavor="NA" /> < code codeSystem="local" code="AEOSR" displayName="Absolute Eosinophils" /> <statusCode code="completed" /> <effectiveTime value="251076215794 " /> <value unit="10*3/uL" xsi:type="PQ" value="0.39" /> < referenceRange> <observationRange> <text>0.00-0.50</text > </observationRange> </referenceRange> </observation > </component> <component> <observation moodCode="EVN" classCode="OBS"> <templateId root="10.29.840.1.802253.07.02.22.4.2" /> <id nullFlavor="NA" /> <code codeSystem="local" code="ALYMR" displayName="Absolute Lymphocytes" /> <statusCode code="completed" /> <effectiveTime value="" /> <value unit="10*3/uL" xsi:type="PQ" value="1.92" /> <referenceRange> < observationRange> <text>0.80-3.30</text> </ observationRange> </referenceRange> </observation> </ component> <component> <observation moodCode="EVN" classCode="OBS"> <templateId root="216.840.1.358547.07.02.22.4.2" /> <id nullFlavor="NA" /> <code codeSystem="local" code="AMONR" displayName= "Absolute Monocytes" /> <statusCode code="completed" /> < effectiveTime value="672959603033" /> <value unit="10*3/uL" xsi:type= "PQ" value="0.76" /> <referenceRange> <observationRange> <text>0.30-1.00</text> </observationRange> </ referenceRange> </observation> </component> <component> <observation moodCode="EVN" classCode="OBS"> <templateId root= "16.840.1.077607.07.02.22.4.2" /> <id nullFlavor="NA" /> < code codeSystem="local" code="ASEGR" displayName="Absolute Neutrophils" /> <statusCode code="completed" /> <effectiveTime value="283156500063 " /> <value unit="10*3/uL" xsi:type="PQ" value="1.91" /> < referenceRange> <observationRange> <text>1.90-7.00</text > </observationRange> </referenceRange> </observation > </component> <component> <observation moodCode="EVN" classCode="OBS"> <templateId root="216.840.1.854671.07.02.22.4.2" /> <id nullFlavor="NA" /> <code codeSystem="local" code="BASOR" displayName="Basophils" /> <statusCode code="completed" /> < effectiveTime value="" /> <value unit="%" xsi:type="PQ " value="0" /> <referenceRange> <observationRange> <text>0-2</text> </observationRange> </referenceRange> </observation> </component> <component> <observation moodCode="EVN" classCode="OBS"> <templateId root= "2.16.840.1.803244.07.02.22.4.2" /> <id nullFlavor="NA" /> < code codeSystem="local" code="EOSR" displayName="Eosinophils" /> < statusCode code="completed" /> <effectiveTime value="" /> <value unit="%" xsi:type="PQ" value="8" /> < interpretationCode codeSystem="local" code="*" /> <referenceRange> <observationRange> <text>0-4</text> </ observationRange> </referenceRange> </observation> </ component> <component> <observation moodCode="EVN" classCode="OBS"> <templateId root="2.16.840.1.408642.07.02.22.4.2" /> <id nullFlavor="NA" /> <code codeSystem="local" code="HCT" displayName="HCT " /> <statusCode code="completed" /> <effectiveTime value= "509991482250" /> <value unit="%" xsi:type="PQ" value="34.7" /> <interpretationCode codeSystem="local" code="*" /> < referenceRange> <observationRange> <text>42.0-52.0</text > </observationRange> </referenceRange> </observation > </component> <component> <observation moodCode="EVN" classCode="OBS"> <templateId root="2.16.840.1.099411.10.20.4.2" /> <id nullFlavor="NA" /> <code codeSystem="local" code="HGB" displayName="HGB" /> <statusCode code="completed" /> < effectiveTime value="312692930775" /> <value unit="g/dL" xsi:type="PQ" value="11.8" /> <interpretationCode codeSystem="local" code="*" /> <referenceRange> <observationRange> <text>14.0- 18.0</text> </observationRange> </referenceRange> </ observation> </component> <component> <observation moodCode= "EVN" classCode="OBS"> <templateId root="216.840.1.077342.07.02.224.2 " /> <id nullFlavor="NA" /> <code codeSystem="local" code= "IMGA" displayName="Immature Granulocytes" /> <statusCode code= "completed" /> <effectiveTime value="583335573241" /> <value unit="%" xsi:type="PQ" value="0.2" /> <referenceRange> < observationRange> <text>0.0-1.0</text> </ observationRange> </referenceRange> </observation> </ component> <component> <observation moodCode="EVN" classCode="OBS"> <templateId root="216.840.1.978532.10..4.2" /> <id nullFlavor="NA" /> <code codeSystem="local" code="LYMPR" displayName= "Lymphocytes" /> <statusCode code="completed" /> < effectiveTime value="" /> <value unit="%" xsi:type="PQ " value="38" /> <referenceRange> <observationRange> <text>20-46</text> </observationRange> </ referenceRange> </observation> </component> <component> <observation moodCode="EVN" classCode="OBS"> <templateId root= "216.840.1.238653.10.22.4.2" /> <id nullFlavor="NA" /> < code codeSystem="local" code="[facility]" displayName="[facility]" /> <statusCode code="completed" /> <effectiveTime value="" /> < value unit="pg" xsi:type="PQ" value="30.8" /> <referenceRange> <observationRange> <text>27.0-32.0</text> </ observationRange> </referenceRange> </observation> </ component> <component> <observation moodCode="EVN" classCode="OBS"> <templateId root="216.840.1.280908.22.4.2" /> <id nullFlavor="NA" /> <code codeSystem="local" code[facility]" displayName= "[facility]" /> <statusCode code="completed" /> <effectiveTime value ="" /> <value unit="g/dL" xsi:type="PQ" value="34.0" /> <referenceRange> <observationRange> <text>32.0- 36.0</text> </observationRange> </referenceRange> </ observation> </component> <component> <observation moodCode= "EVN" classCode="OBS"> <templateId root="216.840.1.526840.10.20.22.4.2 " /> <id nullFlavor="NA" /> <code codeSystem="local" code="MCV " displayName="MCV" /> <statusCode code="completed" /> < effectiveTime value="221395062759" /> <value unit="fL" xsi:type="PQ" value="90.6" /> <referenceRange> <observationRange> <text>82.0-99.0</text> </observationRange> </ referenceRange> </observation> </component> <component> <observation moodCode="EVN" classCode="OBS"> <templateId root= "216.840.1.392584.10..22.4.2" /> <id nullFlavor="NA" /> < code codeSystem="local" code="MONOR" displayName="Monocytes" /> < statusCode code="completed" /> <effectiveTime value="796094179316" /> <value unit="%" xsi:type="PQ" value="15" /> < interpretationCode codeSystem="local" code="*" /> <referenceRange> <observationRange> <text>4-11</text> </ observationRange> </referenceRange> </observation> </ component> <component> <observation moodCode="EVN" classCode="OBS"> <templateId root="216.840.1.085026.10..22.4.2" /> <id nullFlavor="NA" /> <code codeSystem="local" code="MPV" displayName="MPV " /> <statusCode code="completed" /> <effectiveTime value= "075293069301" /> <value unit="fL" xsi:type="PQ" value="10.7" /> <referenceRange> <observationRange> <text>9.4-12.3</ text> </observationRange> </referenceRange> </ observation> </component> <component> <observation moodCode= "EVN" classCode="OBS"> <templateId root="16.840.1.955601.10..22.4.2 " /> <id nullFlavor="NA" /> <code codeSystem="local" code= "SEGR" displayName="Neutrophils" /> <statusCode code="completed" /> <effectiveTime value="" /> <value unit="%" xsi: type="PQ" value="38" /> <interpretationCode codeSystem="local" code="* " /> <referenceRange> <observationRange> <text> 51-75</text> </observationRange> </referenceRange> </ observation> </component> <component> <observation moodCode= "EVN" classCode="OBS"> <templateId root="16.840.1.046434.07.02.22.4.2 " /> <id nullFlavor="NA" /> <code codeSystem="local" code= "NRBCA" displayName="Nucleated RBC Automated" /> <statusCode code= "completed" /> <effectiveTime value="" /> <value unit="/100WBC" xsi:type="PQ" value="0.0" /> <referenceRange> <observationRange> <text /> </observationRange> </referenceRange> </observation> </component> <component> <observation moodCode="EVN" classCode="OBS"> <templateId root= "10.29.840.1.141764.10..22.4.2" /> <id nullFlavor="NA" /> < code codeSystem="local" code="PLT" displayName="Platelet Count" /> < statusCode code="completed" /> <effectiveTime value="" /> <value unit="K/uL" xsi:type="PQ" value="129" /> < interpretationCode codeSystem="local" code="*" /> <referenceRange> <observationRange> <text>150-400</text> </ observationRange> </referenceRange> </observation> </ component> <component> <observation moodCode="EVN" classCode="OBS"> <templateId root="216.840.1.268625.10.20.22.4.2" /> <id nullFlavor="NA" /> <code codeSystem="local" code="RBC" displayName="RBC " /> <statusCode code="completed" /> <effectiveTime value= "180484579348" /> <value unit="10*6/uL" xsi:type="PQ" value="3.83" /> <interpretationCode codeSystem="local" code="*" /> < referenceRange> <observationRange> <text>4.60-6.20</text > </observationRange> </referenceRange> </observation > </component> <component> <observation moodCode="EVN" classCode="OBS"> <templateId root="10.29.840.1.137722.10...4.2" /> <id nullFlavor="NA" /> <code codeSystem="local" code="RDW" displayName="RDW" /> <statusCode code="completed" /> < effectiveTime value="254876190573" /> <value unit="%" xsi:type="PQ " value="13.9" /> <referenceRange> <observationRange> <text>11.5-14.5</text> </observationRange> </ referenceRange> </observation> </component> <component> <observation moodCode="EVN" classCode="OBS"> <templateId root= "16.840.1.356986.10.20.22.4.2" /> <id nullFlavor="NA" /> < code codeSystem="local" code="WBCIR" displayName="WBC" /> <statusCode code="completed" /> <effectiveTime value="304095158125" /> < value unit="K/uL" xsi:type="PQ" value="5.0" /> <referenceRange> <observationRange> <text>4.8-10.8</text> </ observationRange> </referenceRange> </observation> </ component> </organizer> </entry> <entry> <organizer moodCode="EVN" classCode="BATTERY"> <templateId root="16.840.1.001306.10..22.4.1" /> <id nullFlavor="NA" /> <code codeSystem="local" code="CMP" displayName ="Comprehensive Metabolic Panel (CMP)" /> <statusCode code="completed" /> <component> <observation moodCode="EVN" classCode="OBS"> < templateId root="16.840.1.498628.10..22.4.2" /> <id nullFlavor="NA " /> <code codeSystem="local" code="ALB" displayName="Albumin" /> <statusCode code="completed" /> <effectiveTime value="011752927718 " /> <value unit="g/dL" xsi:type="PQ" value="3.1" /> < interpretationCode codeSystem="local" code="*" /> <referenceRange> <observationRange> <text>3.5-4.8</text> </ observationRange> </referenceRange> </observation> </ component> <component> <observation moodCode="EVN" classCode="OBS"> <templateId root="10.29.840.1.015483.10..22.4.2" /> <id nullFlavor="NA" /> <code codeSystem="local" code="ALP" displayName= "Alkaline Phosphatase" /> <statusCode code="completed" /> < effectiveTime value="637180061045" /> <value unit="U/L" xsi:type="PQ" value="64" /> <referenceRange> <observationRange> <text>26-104</text> </observationRange> </referenceRange > </observation> </component> <component> <observation moodCode="EVN" classCode="OBS"> <templateId root= "10.29.840.1.994629.10...4.2" /> <id nullFlavor="NA" /> < code codeSystem="local" code="ALT" displayName="ALT (SGPT)" /> < statusCode code="completed" /> <effectiveTime value="" /> <value unit="U/L" xsi:type="PQ" value="45" /> <referenceRange > <observationRange> <text>17-63</text> </ observationRange> </referenceRange> </observation> </ component> <component> <observation moodCode="EVN" classCode="OBS"> <templateId root="10.29.840.1.206864.10...4.2" /> <id nullFlavor="NA" /> <code codeSystem="local" code="AGAP" displayName= "Anion Gap" /> <statusCode code="completed" /> <effectiveTime value="532982798202" /> <value unit="mEq/L" xsi:type="PQ" value="9" /> <referenceRange> <observationRange> <text>3-20 </text> </observationRange> </referenceRange> </ observation> </component> <component> <observation moodCode= "EVN" classCode="OBS"> <templateId root="10.29.840.1.771567.10..22.4.2 " /> <id nullFlavor="NA" /> <code codeSystem="local" code="AST " displayName="AST (SGOT)" /> <statusCode code="completed" /> <effectiveTime value="" /> <value unit="U/L" xsi:type="PQ" value="43" /> <interpretationCode codeSystem="local" code="*" /> <referenceRange> <observationRange> <text>15-41</ text> </observationRange> </referenceRange> </ observation> </component> <component> <observation moodCode= "EVN" classCode="OBS"> <templateId root="2.16.840.1.612491.07.02.22.4.2 " /> <id nullFlavor="NA" /> <code codeSystem="local" code= "BILIT" displayName="Bilirubin Total" /> <statusCode code="completed" / > <effectiveTime value="" /> <value unit="mg/dL" xsi:type="PQ" value="0.5" /> <referenceRange> < observationRange> <text>0.2-1.2</text> </ observationRange> </referenceRange> </observation> </ component> <component> <observation moodCode="EVN" classCode="OBS"> <templateId root="2.16.840.1.851963.22.4.2" /> <id nullFlavor="NA" /> <code codeSystem="local" code="BUN" displayName="BUN " /> <statusCode code="completed" /> <effectiveTime value= "" /> <value unit="mg/dL" xsi:type="PQ" value="21" /> <interpretationCode codeSystem="local" code="*" /> <referenceRange > <observationRange> <text>4-20</text> </ observationRange> </referenceRange> </observation> </ component> <component> <observation moodCode="EVN" classCode="OBS"> <templateId root="216.840.1.098016.10.22.4.2" /> <id nullFlavor="NA" /> <code codeSystem="local" code="CA" displayName= "Calcium" /> <statusCode code="completed" /> <effectiveTime value="" /> <value unit="mg/dL" xsi:type="PQ" value="8.0" / > <interpretationCode codeSystem="local" code="*" /> < referenceRange> <observationRange> <text>8.6-10.0</text > </observationRange> </referenceRange> </observation > </component> <component> <observation moodCode="EVN" classCode="OBS"> <templateId root="10.29.840.1.879266.07.02.22.4.2" /> <id nullFlavor="NA" /> <code codeSystem="local" code="CL" displayName="Chloride" /> <statusCode code="completed" /> < effectiveTime value="" /> <value unit="mEq/L" xsi:type="PQ " value="104" /> <referenceRange> <observationRange> <text>99-109</text> </observationRange> </ referenceRange> </observation> </component> <component> <observation moodCode="EVN" classCode="OBS"> <templateId root= "16.840.1.417432....4.2" /> <id nullFlavor="NA" /> < code codeSystem="local" code="CO2" displayName="CO2" /> <statusCode code="completed" /> <effectiveTime value="" /> < value unit="mEq/L" xsi:type="PQ" value="21" /> <interpretationCode codeSystem="local" code="*" /> <referenceRange> < observationRange> <text>22-32</text> </observationRange > </referenceRange> </observation> </component> < component> <observation moodCode="EVN" classCode="OBS"> < templateId root="10.29.840.1.360003.1022.4.2" /> <id nullFlavor="NA " /> <code codeSystem="local" code="CREAT" displayName="Creatinine" /> <statusCode code="completed" /> <effectiveTime value= "" /> <value unit="mg/dL" xsi:type="PQ" value="0.96" /> <referenceRange> <observationRange> <text>0.64- 1.27</text> </observationRange> </referenceRange> </ observation> </component> <component> <observation moodCode= "EVN" classCode="OBS"> <templateId root="840.1.371426.07.02.22.4.2 " /> <id nullFlavor="NA" /> <code codeSystem="local" code= "GLOB" displayName="Globulin" /> <statusCode code="completed" /> <effectiveTime value="" /> <value unit="g/dL" xsi:type= "PQ" value="2.6" /> <referenceRange> <observationRange> <text>1.9-4.3</text> </observationRange> </ referenceRange> </observation> </component> <component> <observation moodCode="EVN" classCode="OBS"> <templateId root= "10.29.840.1.075004.22.4.2" /> <id nullFlavor="NA" /> < code codeSystem="local" code="GLU" displayName="Glucose" /> < statusCode code="completed" /> <effectiveTime value="" /> <value unit="mg/dL" xsi:type="PQ" value="90" /> < referenceRange> <observationRange> <text>70-100</text> </observationRange> </referenceRange> </observation> </component> <component> <observation moodCode="EVN" classCode ="OBS"> <templateId root="216.840.1.565530.10.20.22.4.2" /> < id nullFlavor="NA" /> <code codeSystem="local" code="K" displayName= "Potassium" /> <statusCode code="completed" /> <effectiveTime value="" /> <value unit="mEq/L" xsi:type="PQ" value="3.5" / > <interpretationCode codeSystem="local" code="*" /> < referenceRange> <observationRange> <text>3.6-5.1</text> </observationRange> </referenceRange> </observation > </component> <component> <observation moodCode="EVN" classCode="OBS"> <templateId root="216.840.1.961808.10.20.22.4.2" /> <id nullFlavor="NA" /> <code codeSystem="local" code="TP" displayName="Protein" /> <statusCode code="completed" /> < effectiveTime value="" /> <value unit="g/dL" xsi:type="PQ" value="5.7" /> <interpretationCode codeSystem="local" code="*" /> <referenceRange> <observationRange> <text>6.1-7.9</ text> </observationRange> </referenceRange> </ observation> </component> <component> <observation moodCode= "EVN" classCode="OBS"> <templateId root="2.16.840.1.084265.10..22.4.2 " /> <id nullFlavor="NA" /> <code codeSystem="local" code="NA " displayName="Sodium" /> <statusCode code="completed" /> < effectiveTime value="111909237178" /> <value unit="mEq/L" xsi:type="PQ " value="134" /> <interpretationCode codeSystem="local" code="*" /> <referenceRange> <observationRange> <text>136-144 </text> </observationRange> </referenceRange> </ observation> </component> </organizer> </entry> <entry> <organizer moodCode="EVN" classCode="BATTERY"> <templateId root= "2.16.840.1.520993.10..22.4.1" /> <id nullFlavor="NA" /> <code codeSystem="local" code="GFR" displayName="eGFR" /> <statusCode code= "completed" /> <component> <observation moodCode="EVN" classCode= "OBS"> <templateId root="2.16.840.1.213126.10.20.22.4.2" /> < id nullFlavor="NA" /> <code codeSystem="local" code="GFR" displayName= "eGFR" /> <statusCode code="completed" /> <effectiveTime value ="342001293992" /> <value unit="mL/min" xsi:type="PQ" value=">60" / > <referenceRange> <observationRange> <text>&gt ;60</text> </observationRange> </referenceRange> </ observation> </component> </organizer> </entry> <entry> <organizer moodCode="EVN" classCode="BATTERY"> <templateId root= "840.1.812503.22.4.1" /> <id nullFlavor="NA" /> <code codeSystem="local" code="TSHR" displayName="TSH with Reflex Free T4" /> < statusCode code="completed" /> <component> <observation moodCode= "EVN" classCode="OBS"> <templateId root="840.1.397785.07.02.22.4.2 " /> <id nullFlavor="NA" /> <code codeSystem="local" code= "TSHR" displayName="TSH with Reflex Free T4" /> <statusCode code= "completed" /> <effectiveTime value="496657205507" /> <value unit="uIU/mL" xsi:type="PQ" value="3.17" /> <referenceRange> <observationRange> <text>0.35-4.94</text> </ observationRange> </referenceRange> </observation> </ component> </organizer> </entry> <entry> <organizer moodCode="EVN" classCode="BATTERY"> <templateId root="840.1.203235.07.02.22.4.1" /> <id nullFlavor="NA" /> <code codeSystem="local" code="LACTN" displayName="Lactic Acid NPT" /> <statusCode code="completed" /> < component> <observation moodCode="EVN" classCode="OBS"> < templateId root="840.1.753496.07.02.22.4.2" /> <id nullFlavor="NA " /> <code codeSystem="local" code="LACTN" displayName="Lactic Acid NPT " /> <statusCode code="completed" /> <effectiveTime value= "191483572116" /> <value unit="mEq/L" xsi:type="PQ" value="1.1" /> <referenceRange> <observationRange> <text>0.5-2.0< /text> </observationRange> </referenceRange> </ observation> </component> </organizer> </entry> <entry> <organizer moodCode="EVN" classCode="BATTERY"> <templateId root= "840.1.950345.22.4.1" /> <id nullFlavor="NA" /> <code codeSystem="local" code="CBCD" displayName="CBC W/DIFF" /> <statusCode code ="completed" /> <component> <observation moodCode="EVN" classCode= "OBS"> <templateId root="10.29.840.1.334346.07.02.22.4.2" /> < id nullFlavor="NA" /> <code codeSystem="local" code="EO#" displayName= "EOSINOPHIL #" /> <statusCode code="completed" /> < effectiveTime value="528325104977" /> <value unit="k/cumm" xsi:type="PQ " value="0.4" /> <referenceRange> <observationRange> <text>0.1-0.5</text> </observationRange> </ referenceRange> </observation> </component> <component> <observation moodCode="EVN" classCode="OBS"> <templateId root= "10.29.840.1.731143.10224.2" /> <id nullFlavor="NA" /> < code codeSystem="local" code="EO%" displayName="EOSINOPHIL %" /> <statusCode code="completed" /> <effectiveTime value="098197299302" /> <value unit="%" xsi:type="PQ" value="5" /> < interpretationCode codeSystem="local" code="*" /> <referenceRange> <observationRange> <text>2-4</text> </ observationRange> </referenceRange> </observation> </ component> <component> <observation moodCode="EVN" classCode="OBS"> <templateId root="10.29.840.1.313336.10.20.22.4.2" /> <id nullFlavor="NA" /> <code codeSystem="local" code="GR#" displayName= "GRANULOCYTE #" /> <statusCode code="completed" /> < effectiveTime value="498167013082" /> <value unit="k/cumm" xsi:type="PQ " value="4.2" /> <referenceRange> <observationRange> <text>2.0-9.0</text> </observationRange> </ referenceRange> </observation> </component> <component> <observation moodCode="EVN" classCode="OBS"> <templateId root= "840.1.584464.10.22.4.2" /> <id nullFlavor="NA" /> < code codeSystem="local" code="GR%" displayName="GRANULOCYTE %" /> <statusCode code="completed" /> <effectiveTime value="924209821497 " /> <value unit="%" xsi:type="PQ" value="56" /> < referenceRange> <observationRange> <text>50-75</text> </observationRange> </referenceRange> </observation> </component> <component> <observation moodCode="EVN" classCode= "OBS"> <templateId root="10.29.840.1.527474.10.20.22.4.2" /> < id nullFlavor="NA" /> <code codeSystem="local" code="LY#" displayName= "LYMPHOCYTE #" /> <statusCode code="completed" /> < effectiveTime value="513861873337" /> <value unit="k/cumm" xsi:type="PQ " value="2.1" /> <referenceRange> <observationRange> <text>1.0-4.0</text> </observationRange> </ referenceRange> </observation> </component> <component> <observation moodCode="EVN" classCode="OBS"> <templateId root= "10.29.840.1.650889.07.02.22.4.2" /> <id nullFlavor="NA" /> < code codeSystem="local" code="LY%" displayName="LYMPHOCYTE %" /> <statusCode code="completed" /> <effectiveTime value="265951806079" /> <value unit="%" xsi:type="PQ" value="28" /> < referenceRange> <observationRange> <text>20-30</text> </observationRange> </referenceRange> </observation> </component> <component> <observation moodCode="EVN" classCode= "OBS"> <templateId root="10.29.840.1.487149.07.02.22.4.2" /> < id nullFlavor="NA" /> <code codeSystem="local" code="MCH" displayName= "MEAN CELL HGB" /> <statusCode code="completed" /> < effectiveTime value="254406170190" /> <value unit="pg" xsi:type="PQ" value="30.2" /> <referenceRange> <observationRange> <text>27.0-33.0</text> </observationRange> </ referenceRange> </observation> </component> <component> <observation moodCode="EVN" classCode="OBS"> <templateId root= "10.29.840.1.598746.07.02.22.4.2" /> <id nullFlavor="NA" /> < code codeSystem="local" code="MCHC" displayName="MEAN CELL HGB CONCENTRATION" / > <statusCode code="completed" /> <effectiveTime value= "996127230806" /> <value unit="g/dL" xsi:type="PQ" value="33.8" /> <referenceRange> <observationRange> <text>32.0- 37.0</text> </observationRange> </referenceRange> </ observation> </component> <component> <observation moodCode= "EVN" classCode="OBS"> <templateId root="2.16.840.1.661864.07.02.22.4.2 " /> <id nullFlavor="NA" /> <code codeSystem="local" code="MCV " displayName="MEAN CELL VOLUME" /> <statusCode code="completed" /> <effectiveTime value="675407737782" /> <value unit="fl" xsi:type ="PQ" value="89.3" /> <referenceRange> <observationRange> <text>80.0-100.0</text> </observationRange> </ referenceRange> </observation> </component> <component> <observation moodCode="EVN" classCode="OBS"> <templateId root= "216.840.1.273838.07.02.22.4.2" /> <id nullFlavor="NA" /> < code codeSystem="local" code="MO#" displayName="MONOCYTE #" /> < statusCode code="completed" /> <effectiveTime value="204951747586" /> <value unit="k/cumm" xsi:type="PQ" value="0.8" /> < referenceRange> <observationRange> <text>0.1-1.0</text> </observationRange> </referenceRange> </observation > </component> <component> <observation moodCode="EVN" classCode="OBS"> <templateId root="2.16.840.1.361117.10..22.4.2" /> <id nullFlavor="NA" /> <code codeSystem="local" code="MO% " displayName="MONOCYTE %" /> <statusCode code="completed" /> <effectiveTime value="" /> <value unit="%" xsi: type="PQ" value="11" /> <interpretationCode codeSystem="local" code="* " /> <referenceRange> <observationRange> <text> 4-6</text> </observationRange> </referenceRange> </ observation> </component> <component> <observation moodCode= "EVN" classCode="OBS"> <templateId root="216.840.1.278066.07.02.22.4.2 " /> <id nullFlavor="NA" /> <code codeSystem="local" code= "MPVT" displayName="MEAN PLATELET VOLUME" /> <statusCode code= "completed" /> <effectiveTime value="122049164792" /> <value unit="fl" xsi:type="PQ" value="9.7" /> <referenceRange> < observationRange> <text>8.5-10.9</text> </ observationRange> </referenceRange> </observation> </ component> <component> <observation moodCode="EVN" classCode="OBS"> <templateId root="216.840.1.608347.10..4.2" /> <id nullFlavor="NA" /> <code codeSystem="local" code="RBC" displayName=" RED BLOOD CELL" /> <statusCode code="completed" /> < effectiveTime value="" /> <value unit="m/cumm" xsi:type="PQ " value="4.41" /> <referenceRange> <observationRange> <text>4.00-6.00</text> </observationRange> </ referenceRange> </observation> </component> <component> <observation moodCode="EVN" classCode="OBS"> <templateId root= "216.840.1.541828.10..22.4.2" /> <id nullFlavor="NA" /> < code codeSystem="local" code="RDW" displayName="RED CELL DISTRIBUTION WIDTH" /> <statusCode code="completed" /> <effectiveTime value= "139893058638" /> <value unit="%" xsi:type="PQ" value="13.7" /> <referenceRange> <observationRange> <text>11.0- 15.6</text> </observationRange> </referenceRange> </ observation> </component> <component> <observation moodCode= "EVN" classCode="OBS"> <templateId root="16.840.1.882148.10..22.4.2 " /> <id nullFlavor="NA" /> <code codeSystem="local" code="WBC " displayName="WHITE BLOOD CELL" /> <statusCode code="completed" /> <effectiveTime value="150290770356" /> <value unit="k/cumm" xsi: type="PQ" value="7.6" /> <referenceRange> <observationRange > <text>5.0-10.0</text> </observationRange> </ referenceRange> </observation> </component> <component> <observation moodCode="EVN" classCode="OBS"> <templateId root= "216.840.1.346477.10..22.4.2" /> <id nullFlavor="NA" /> < code codeSystem="local" code="HGBT" displayName="HEMOGLOBIN" /> < statusCode code="completed" /> <effectiveTime value="" /> <value unit="gm/dL" xsi:type="PQ" value="13.3" /> < interpretationCode codeSystem="local" code="*" /> <referenceRange> <observationRange> <text>14.0-18.0</text> </ observationRange> </referenceRange> </observation> </ component> <component> <observation moodCode="EVN" classCode="OBS"> <templateId root="2.16.840.1.528148.10...4.2" /> <id nullFlavor="NA" /> <code codeSystem="local" code="HCTT" displayName= "HEMATOCRIT" /> <statusCode code="completed" /> < effectiveTime value="" /> <value unit="%" xsi:type="PQ " value="39.4" /> <interpretationCode codeSystem="local" code="*" /> <referenceRange> <observationRange> <text>40.0- 54.0</text> </observationRange> </referenceRange> </ observation> </component> <component> <observation moodCode= "EVN" classCode="OBS"> <templateId root="2.16.840.1.537516.10.20.22.4.2 " /> <id nullFlavor="NA" /> <code codeSystem="local" code= "NRBC%" displayName="NRBC %" /> <statusCode code="completed" / > <effectiveTime value="" /> <value unit="/100WBC " xsi:type="PQ" value="0.0" /> <referenceRange> < observationRange> <text>0.0-0.0</text> </ observationRange> </referenceRange> </observation> </ component> <component> <observation moodCode="EVN" classCode="OBS"> <templateId root="216.840.1.969305.10.22.4.2" /> <id nullFlavor="NA" /> <code codeSystem="local" code="NRBC#" displayName= "NRBC #" /> <statusCode code="completed" /> <effectiveTime value="" /> <value unit="k/cumm" xsi:type="PQ" value="0.00 " /> <interpretationCode codeSystem="local" code="*" /> < referenceRange> <observationRange> <text>0.03-0.11</text > </observationRange> </referenceRange> </observation > </component> <component> <observation moodCode="EVN" classCode="OBS"> <templateId root="10.29.840.1.170899.07.02.22.4.2" /> <id nullFlavor="NA" /> <code codeSystem="local" code="PLTT" displayName="PLATELET COUNT" /> <statusCode code="completed" /> <effectiveTime value="" /> <value unit="k/cumm" xsi:type ="PQ" value="156" /> <referenceRange> <observationRange> <text>150-400</text> </observationRange> </ referenceRange> </observation> </component> <component> <observation moodCode="EVN" classCode="OBS"> <templateId root= "216.840.1.511306.1022.4.2" /> <id nullFlavor="NA" /> < code codeSystem="local" code="IG%" displayName="IMMATURE GRANULOCYTE %" /> <statusCode code="completed" /> <effectiveTime value= "610606817327" /> <value unit="%" xsi:type="PQ" value="0.4" /> <referenceRange> <observationRange> <text>0.0-0.6< /text> </observationRange> </referenceRange> </ observation> </component> <component> <observation moodCode= "EVN" classCode="OBS"> <templateId root="2.16.840.1.958203.07.02.22.4.2 " /> <id nullFlavor="NA" /> <code codeSystem="local" code="IG# " displayName="IMMATURE GRANULOCYTE #" /> <statusCode code="completed" /> <effectiveTime value="723211459793" /> <value unit="k/cumm " xsi:type="PQ" value="0.03" /> <referenceRange> < observationRange> <text>0.00-0.09</text> </ observationRange> </referenceRange> </observation> </ component> <component> <observation moodCode="EVN" classCode="OBS"> <templateId root="2.16.840.1.733842.07.02.22.4.2" /> <id nullFlavor="NA" /> <code codeSystem="local" code="IPFT" displayName= "IMMATURE PLATELET FRACTION" /> <statusCode code="completed" /> <effectiveTime value="923380346630" /> <value unit="%" xsi:type= "PQ" value="3.7" /> <referenceRange> <observationRange> <text>1.1-6.1</text> </observationRange> </ referenceRange> </observation> </component> </organizer> </entry > <entry> <organizer moodCode="EVN" classCode="BATTERY"> <templateId root="2.16.840.1.599680.07.02.22.4.1" /> <id nullFlavor="NA" /> <code codeSystem="local" code="METABC" displayName="METABOLIC PANEL, COMPREHN" /> <statusCode code="completed" /> <component> <observation moodCode= "EVN" classCode="OBS"> <templateId root="10.29.840.1.758052...4.2 " /> <id nullFlavor="NA" /> <code codeSystem="local" code="K" displayName="POTASSIUM" /> <statusCode code="completed" /> < effectiveTime value="270895550242" /> <value unit="mmol/L" xsi:type="PQ " value="3.6" /> <referenceRange> <observationRange> <text>3.5-5.3</text> </observationRange> </ referenceRange> </observation> </component> <component> <observation moodCode="EVN" classCode="OBS"> <templateId root= "840.1.685772.07.02.22.4.2" /> <id nullFlavor="NA" /> < code codeSystem="local" code="eGFR" displayName="EST GFR (MDRD)" /> < statusCode code="completed" /> <effectiveTime value="631495527741" /> <value unit="mL/min" xsi:type="PQ" value="> 60" /> < referenceRange> <observationRange> <text>> 59</text> </observationRange> </referenceRange> </observation > </component> <component> <observation moodCode="EVN" classCode="OBS"> <templateId root="10.29.840.1.009511.10.4.2" /> <id nullFlavor="NA" /> <code codeSystem="local" code="GAP" displayName="ANION GAP" /> <statusCode code="completed" /> < effectiveTime value="949514127312" /> <value unit="mmol/L" xsi:type="PQ " value="11" /> <referenceRange> <observationRange> <text>5-15</text> </observationRange> </referenceRange > </observation> </component> <component> <observation moodCode="EVN" classCode="OBS"> <templateId root= "216.840.1.198712.10..22.4.2" /> <id nullFlavor="NA" /> < code codeSystem="local" code="eCrCl" displayName="EST CrCl (CG)" /> < statusCode code="completed" /> <effectiveTime value="523061715495" /> <value unit="mL/min" xsi:type="PQ" value="> 60" /> < referenceRange> <observationRange> <text>> 59</text> </observationRange> </referenceRange> </observation > </component> <component> <observation moodCode="EVN" classCode="OBS"> <templateId root="10.29.840.1.148710.10..22.4.2" /> <id nullFlavor="NA" /> <code codeSystem="local" code="GLU" displayName="GLUCOSE" /> <statusCode code="completed" /> < effectiveTime value="709389462617" /> <value unit="mg/dL" xsi:type="PQ " value="82" /> <referenceRange> <observationRange> <text>70-99</text> </observationRange> </ referenceRange> </observation> </component> <component> <observation moodCode="EVN" classCode="OBS"> <templateId root= "10.29.840.1.578635.10..4.2" /> <id nullFlavor="NA" /> < code codeSystem="local" code="CA" displayName="CALCIUM" /> <statusCode code="completed" /> <effectiveTime value="205099551130" /> < value unit="mg/dL" xsi:type="PQ" value="8.5" /> <referenceRange> <observationRange> <text>8.5-10.1</text> </ observationRange> </referenceRange> </observation> </ component> <component> <observation moodCode="EVN" classCode="OBS"> <templateId root="2.16.840.1.534008.07.02.22.4.2" /> <id nullFlavor="NA" /> <code codeSystem="local" code="BUN" displayName= "BLOOD UREA NITROGEN" /> <statusCode code="completed" /> < effectiveTime value="235673929495" /> <value unit="mg/dL" xsi:type="PQ " value="14" /> <referenceRange> <observationRange> <text>7-20</text> </observationRange> </referenceRange > </observation> </component> <component> <observation moodCode="EVN" classCode="OBS"> <templateId root= "2.16.840.1.761552.10..4.2" /> <id nullFlavor="NA" /> < code codeSystem="local" code="CREAT" displayName="CREATININE" /> < statusCode code="completed" /> <effectiveTime value="689946304935" /> <value unit="mg/dL" xsi:type="PQ" value="1.0" /> < referenceRange> <observationRange> <text>0.7-1.3</text> </observationRange> </referenceRange> </observation > </component> <component> <observation moodCode="EVN" classCode="OBS"> <templateId root="216.840.1.606069.10..22.4.2" /> <id nullFlavor="NA" /> <code codeSystem="local" code="NA" displayName="SODIUM" /> <statusCode code="completed" /> < effectiveTime value="898266035241" /> <value unit="mmol/L" xsi:type="PQ " value="138" /> <referenceRange> <observationRange> <text>135-148</text> </observationRange> </ referenceRange> </observation> </component> <component> <observation moodCode="EVN" classCode="OBS"> <templateId root= "16.840.1.509724.10..22.4.2" /> <id nullFlavor="NA" /> < code codeSystem="local" code="CL" displayName="CHLORIDE" /> < statusCode code="completed" /> <effectiveTime value="014380012875" /> <value unit="mmol/L" xsi:type="PQ" value="102" /> < referenceRange> <observationRange> <text>98-110</text> </observationRange> </referenceRange> </observation> </component> <component> <observation moodCode="EVN" classCode ="OBS"> <templateId root="16.840.1.375130.10.2022.4.2" /> < id nullFlavor="NA" /> <code codeSystem="local" code="AST" displayName= "AST/SGOT" /> <statusCode code="completed" /> <effectiveTime value="978483998509" /> <value unit="Units/L" xsi:type="PQ" value="37" /> <referenceRange> <observationRange> <text>10 -37</text> </observationRange> </referenceRange> </ observation> </component> <component> <observation moodCode= "EVN" classCode="OBS"> <templateId root="216.840.1.011508.10...4.2 " /> <id nullFlavor="NA" /> <code codeSystem="local" code="ALT " displayName="ALT/SGPT" /> <statusCode code="completed" /> < effectiveTime value="269938765672" /> <value unit="Units/L" xsi:type= "PQ" value="38" /> <referenceRange> <observationRange> <text>< 66</text> </observationRange> </ referenceRange> </observation> </component> <component> <observation moodCode="EVN" classCode="OBS"> <templateId root= "216.840.1.791236.10..4.2" /> <id nullFlavor="NA" /> < code codeSystem="local" code="CO2" displayName="CARBON DIOXIDE" /> < statusCode code="completed" /> <effectiveTime value="" /> <value unit="mmol/L" xsi:type="PQ" value="25" /> < referenceRange> <observationRange> <text>21-32</text> </observationRange> </referenceRange> </observation> </component> <component> <observation moodCode="EVN" classCode= "OBS"> <templateId root="16.840.1.811104.10..22.4.2" /> < id nullFlavor="NA" /> <code codeSystem="local" code="TP" displayName= "TOTAL PROTEIN" /> <statusCode code="completed" /> < effectiveTime value="371969642977" /> <value unit="gm/dL" xsi:type="PQ " value="7.3" /> <referenceRange> <observationRange> <text>6.4-8.2</text> </observationRange> </ referenceRange> </observation> </component> <component> <observation moodCode="EVN" classCode="OBS"> <templateId root= "16.840.1.567433.10..4.2" /> <id nullFlavor="NA" /> < code codeSystem="local" code="ALB" displayName="ALBUMIN" /> < statusCode code="completed" /> <effectiveTime value="707406765308" /> <value unit="gm/dL" xsi:type="PQ" value="3.4" /> < referenceRange> <observationRange> <text>3.4-5.0</text> </observationRange> </referenceRange> </observation > </component> <component> <observation moodCode="EVN" classCode="OBS"> <templateId root="10.29.840.1.876533.07.02.22.4.2" /> <id nullFlavor="NA" /> <code codeSystem="local" code="BILTOT" displayName="BILI TOTAL" /> <statusCode code="completed" /> < effectiveTime value="457306987789" /> <value unit="mg/dL" xsi:type="PQ " value="0.5" /> <referenceRange> <observationRange> <text>0.0-1.0</text> </observationRange> </ referenceRange> </observation> </component> <component> <observation moodCode="EVN" classCode="OBS"> <templateId root= "10.29.840.1.898660...4.2" /> <id nullFlavor="NA" /> < code codeSystem="local" code="ALKP" displayName="ALKALINE PHOSPHATASE TOTAL" /> <statusCode code="completed" /> <effectiveTime value= "043461521271" /> <value unit="IU/L" xsi:type="PQ" value="85" /> <referenceRange> <observationRange> <text>45-117</ text> </observationRange> </referenceRange> </ observation> </component> </organizer> </entry> <entry> <organizer moodCode="EVN" classCode="BATTERY"> <templateId root= "10.29.840.1.852939.10..22.4.1" /> <id nullFlavor="NA" /> <code codeSystem="local" code="LACTG" displayName="LACTIC ACID" /> <statusCode code="completed" /> <component> <observation moodCode="EVN" classCode="OBS"> <templateId root="10.29.840.1.512038.10...4.2" /> <id nullFlavor="NA" /> <code codeSystem="local" code="LACT" displayName="LACTIC ACID" /> <statusCode code="completed" /> < effectiveTime value="207273896688" /> <value unit="mmol/L" xsi:type="PQ " value="1.6" /> <referenceRange> <observationRange> <text>0.5-2.0</text> </observationRange> </ referenceRange> </observation> </component> </organizer> </entry > <entry> <organizer moodCode="EVN" classCode="BATTERY"> <templateId root="10.29.840.1.319794.10..22.4.1" /> <id nullFlavor="NA" /> <code codeSystem="local" code="CBCD" displayName="CBC W/DIFF" /> <statusCode code ="completed" /> <component> <observation moodCode="EVN" classCode= "OBS"> <templateId root="10.29.840.1.847460.10.4.2" /> < id nullFlavor="NA" /> <code codeSystem="local" code="CBCCOM" displayName="COMMENT" /> <statusCode code="completed" /> < effectiveTime value="" /> <value unit="" xsi:type="PQ" value="REVIEWED" /> <referenceRange> <observationRange> <text /> </observationRange> </referenceRange> </observation> </component> <component> <observation moodCode="EVN" classCode="OBS"> <templateId root= "[id number]" /> <id nullFlavor="NA" /> < code codeSystem="local" code="EO#" displayName="EOSINOPHIL #" /> < statusCode code="completed" /> <effectiveTime value="" /> <value unit="k/cumm" xsi:type="PQ" value="0.1" /> < referenceRange> <observationRange> <text>0.1-0.5</text> </observationRange> </referenceRange> </observation > </component> <component> <observation moodCode="EVN" classCode="OBS"> <templateId root="216.840.1.765513.07.02.22.4.2" /> <id nullFlavor="NA" /> <code codeSystem="local" code="EO% " displayName="EOSINOPHIL %" /> <statusCode code="completed" /> <effectiveTime value="" /> <value unit="%" xsi: type="PQ" value="1" /> <interpretationCode codeSystem="local" code="*" /> <referenceRange> <observationRange> <text>2- 4</text> </observationRange> </referenceRange> </ observation> </component> <component> <observation moodCode= "EVN" classCode="OBS"> <templateId root="216.840.1.048360.07.02.224.2 " /> <id nullFlavor="NA" /> <code codeSystem="local" code="GR# " displayName="GRANULOCYTE #" /> <statusCode code="completed" /> <effectiveTime value="" /> <value unit="k/cumm" xsi: type="PQ" value="8.9" /> <referenceRange> <observationRange > <text>2.0-9.0</text> </observationRange> </ referenceRange> </observation> </component> <component> <observation moodCode="EVN" classCode="OBS"> <templateId root= "2.840.1.960794.07.02.224.2" /> <id nullFlavor="NA" /> < code codeSystem="local" code="GR%" displayName="GRANULOCYTE %" /> <statusCode code="completed" /> <effectiveTime value=" " /> <value unit="%" xsi:type="PQ" value="72" /> < referenceRange> <observationRange> <text>50-75</text> </observationRange> </referenceRange> </observation> </component> <component> <observation moodCode="EVN" classCode= "OBS"> <templateId root="216.840.1.110685.07.02.224.2" /> < id nullFlavor="NA" /> <code codeSystem="local" code="LY#" displayName= "LYMPHOCYTE #" /> <statusCode code="completed" /> < effectiveTime value="" /> <value unit="k/cumm" xsi:type="PQ " value="1.8" /> <referenceRange> <observationRange> <text>1.0-4.0</text> </observationRange> </ referenceRange> </observation> </component> <component> <observation moodCode="EVN" classCode="OBS"> <templateId root= "216.840.1.505966.10.4.2" /> <id nullFlavor="NA" /> < code codeSystem="local" code="LY%" displayName="LYMPHOCYTE %" /> <statusCode code="completed" /> <effectiveTime value="" /> <value unit="%" xsi:type="PQ" value="15" /> < interpretationCode codeSystem="local" code="*" /> <referenceRange> <observationRange> <text>20-30</text> </ observationRange> </referenceRange> </observation> </ component> <component> <observation moodCode="EVN" classCode="OBS"> <templateId root="10.29.840.1.826435.07.02.224.2" /> <id nullFlavor="NA" /> <code codeSystem="local" code="MCH" displayName= "MEAN CELL HGB" /> <statusCode code="completed" /> < effectiveTime value="" /> <value unit="pg" xsi:type="PQ" value="29.5" /> <referenceRange> <observationRange> <text>27.0-33.0</text> </observationRange> </ referenceRange> </observation> </component> <component> <observation moodCode="EVN" classCode="OBS"> <templateId root= "16.840.1.918159.07.02.22.4.2" /> <id nullFlavor="NA" /> < code codeSystem="local" code="MCHC" displayName="MEAN CELL HGB CONCENTRATION" / > <statusCode code="completed" /> <effectiveTime value= "" /> <value unit="g/dL" xsi:type="PQ" value="33.0" /> <referenceRange> <observationRange> <text>32.0- 37.0</text> </observationRange> </referenceRange> </ observation> </component> <component> <observation moodCode= "EVN" classCode="OBS"> <templateId root="2.16.840.1.807586.10...4.2 " /> <id nullFlavor="NA" /> <code codeSystem="local" code="MCV " displayName="MEAN CELL VOLUME" /> <statusCode code="completed" /> <effectiveTime value="" /> <value unit="fl" xsi:type ="PQ" value="89.3" /> <referenceRange> <observationRange> <text>80.0-100.0</text> </observationRange> </ referenceRange> </observation> </component> <component> <observation moodCode="EVN" classCode="OBS"> <templateId root= "216.840.1.213834.10...4.2" /> <id nullFlavor="NA" /> < code codeSystem="local" code="MO#" displayName="MONOCYTE #" /> < statusCode code="completed" /> <effectiveTime value="" /> <value unit="k/cumm" xsi:type="PQ" value="1.5" /> < interpretationCode codeSystem="local" code="*" /> <referenceRange> <observationRange> <text>0.1-1.0</text> </ observationRange> </referenceRange> </observation> </ component> <component> <observation moodCode="EVN" classCode="OBS"> <templateId root="2.16.840.1.009115.10.22.4.2" /> <id nullFlavor="NA" /> <code codeSystem="local" code="MO%" displayName= "MONOCYTE %" /> <statusCode code="completed" /> < effectiveTime value="" /> <value unit="%" xsi:type="PQ " value="12" /> <interpretationCode codeSystem="local" code="*" /> <referenceRange> <observationRange> <text>4-6</ text> </observationRange> </referenceRange> </ observation> </component> <component> <observation moodCode= "EVN" classCode="OBS"> <templateId root="16.840.1.195762.07.02.224.2 " /> <id nullFlavor="NA" /> <code codeSystem="local" code= "MPVT" displayName="MEAN PLATELET VOLUME" /> <statusCode code= "completed" /> <effectiveTime value="" /> <value unit="fl" xsi:type="PQ" value="9.9" /> <referenceRange> < observationRange> <text>8.5-10.9</text> </ observationRange> </referenceRange> </observation> </ component> <component> <observation moodCode="EVN" classCode="OBS"> <templateId root="216.840.1.496639.07.02.22.4.2" /> <id nullFlavor="NA" /> <code codeSystem="local" code="RBC" displayName=" RED BLOOD CELL" /> <statusCode code="completed" /> < effectiveTime value="" /> <value unit="m/cumm" xsi:type="PQ " value="4.38" /> <referenceRange> <observationRange> <text>4.00-6.00</text> </observationRange> </ referenceRange> </observation> </component> <component> <observation moodCode="EVN" classCode="OBS"> <templateId root= "2.16.840.1.871555...22.4.2" /> <id nullFlavor="NA" /> < code codeSystem="local" code="RDW" displayName="RED CELL DISTRIBUTION WIDTH" /> <statusCode code="completed" /> <effectiveTime value= "" /> <value unit="%" xsi:type="PQ" value="13.2" /> <referenceRange> <observationRange> <text>11.0- 15.6</text> </observationRange> </referenceRange> </ observation> </component> <component> <observation moodCode= "EVN" classCode="OBS"> <templateId root="2.16.840.1.687576.07.02..4.2 " /> <id nullFlavor="NA" /> <code codeSystem="local" code="WBC " displayName="WHITE BLOOD CELL" /> <statusCode code="completed" /> <effectiveTime value="" /> <value unit="k/cumm" xsi: type="PQ" value="12.3" /> <interpretationCode codeSystem="local" code= "*" /> <referenceRange> <observationRange> < text>5.0-10.0</text> </observationRange> </referenceRange> </observation> </component> <component> <observation moodCode="EVN" classCode="OBS"> <templateId root= "2.16.840.1.588849.07.024.2" /> <id nullFlavor="NA" /> < code codeSystem="local" code="HGBT" displayName="HEMOGLOBIN" /> < statusCode code="completed" /> <effectiveTime value="" /> <value unit="gm/dL" xsi:type="PQ" value="12.9" /> < interpretationCode codeSystem="local" code="*" /> <referenceRange> <observationRange> <text>14.0-18.0</text> </ observationRange> </referenceRange> </observation> </ component> <component> <observation moodCode="EVN" classCode="OBS"> <templateId root="216.840.1.253771.07.02.224.2" /> <id nullFlavor="NA" /> <code codeSystem="local" code="HCTT" displayName= "HEMATOCRIT" /> <statusCode code="completed" /> < effectiveTime value="" /> <value unit="%" xsi:type="PQ " value="39.1" /> <interpretationCode codeSystem="local" code="*" /> <referenceRange> <observationRange> <text>40.0- 54.0</text> </observationRange> </referenceRange> </ observation> </component> <component> <observation moodCode= "EVN" classCode="OBS"> <templateId root="216.840.1.136000.104.2 " /> <id nullFlavor="NA" /> <code codeSystem="local" code= "NRBC%" displayName="NRBC %" /> <statusCode code="completed" / > <effectiveTime value="" /> <value unit="/100WBC " xsi:type="PQ" value="0.0" /> <referenceRange> < observationRange> <text>0.0-0.0</text> </ observationRange> </referenceRange> </observation> </ component> <component> <observation moodCode="EVN" classCode="OBS"> <templateId root="10.29.840.1.301046.10.20.22.4.2" /> <id nullFlavor="NA" /> <code codeSystem="local" code="NRBC#" displayName= "NRBC #" /> <statusCode code="completed" /> <effectiveTime value="" /> <value unit="k/cumm" xsi:type="PQ" value="0.00 " /> <interpretationCode codeSystem="local" code="*" /> < referenceRange> <observationRange> <text>0.03-0.11</text > </observationRange> </referenceRange> </observation > </component> <component> <observation moodCode="EVN" classCode="OBS"> <templateId root="840.1.924935.10.4.2" /> <id nullFlavor="NA" /> <code codeSystem="local" code="PLTT" displayName="PLATELET COUNT" /> <statusCode code="completed" /> <effectiveTime value="" /> <value unit="k/cumm" xsi:type ="PQ" value="167" /> <referenceRange> <observationRange> <text>150-400</text> </observationRange> </ referenceRange> </observation> </component> <component> <observation moodCode="EVN" classCode="OBS"> <templateId root= "10.29.840.1.820579.10.20.22.4.2" /> <id nullFlavor="NA" /> < code codeSystem="local" code="IG%" displayName="IMMATURE GRANULOCYTE %" /> <statusCode code="completed" /> <effectiveTime value= "" /> <value unit="%" xsi:type="PQ" value="0.5" /> <referenceRange> <observationRange> <text>0.0-0.6< /text> </observationRange> </referenceRange> </ observation> </component> <component> <observation moodCode= "EVN" classCode="OBS"> <templateId root="16.840.1.490486.10..4.2 " /> <id nullFlavor="NA" /> <code codeSystem="local" code="IG# " displayName="IMMATURE GRANULOCYTE #" /> <statusCode code="completed" /> <effectiveTime value="" /> <value unit="k/cumm " xsi:type="PQ" value="0.06" /> <referenceRange> < observationRange> <text>0.00-0.09</text> </ observationRange> </referenceRange> </observation> </ component> </organizer> </entry> <entry> <organizer moodCode="EVN" classCode="BATTERY"> <templateId root="10.29.840.1.817985.10..4.1" /> <id nullFlavor="NA" /> <code codeSystem="local" code="BC" displayName= "BLOOD CULTURE" /> <statusCode code="completed" /> <component> <observation moodCode="EVN" classCode="OBS"> <templateId root= "10.29.840.1.696195.07.02.22.4.2" /> <id nullFlavor="NA" /> < code codeSystem="local" code="MB" displayName="Microbiology" /> < statusCode code="completed" /> <effectiveTime value="[id number]" /> <value xsi:type="ST" value="<pre><b>BLOOD CULTURE</b> See BelowIs this a Possible Sepsis/Sepsis patient? YesBLOOD CULTURE(F) Alicia Date/ Time: 06/20/2017 19:59 Mitzy Date/Time: 06/26/2017 06:05SOURCE: BLOODSPEC DESC: [id number] GROWTH AFTER [address] [id number]</pre>" /> <referenceRange > <observationRange> <text /> </ observationRange> </referenceRange> </observation> </ component> </organizer> </entry> <entry> <organizer moodCode="EVN" classCode="BATTERY"> <templateId root="2.16.840.1.233224.10.20.22.4.1" /> <id nullFlavor="NA" /> <code codeSystem="local" code="BC" displayName= "BLOOD CULTURE" /> <statusCode code="completed" /> <component> <observation moodCode="EVN" classCode="OBS"> <templateId root= "2.16.840.1.870869.10.20.22.4.2" /> <id nullFlavor="NA" /> < code codeSystem="local" code="MB" displayName="Microbiology" /> < statusCode code="completed" /> <effectiveTime value="102528619835" /> <value xsi:type="ST" value="<pre><b>BLOOD CULTURE</b> See BelowIs this a Possible Sepsis/Sepsis patient? YesBLOOD CULTURE(F) Alicia Date/ Time: 06/20/2017 19:59 Mitzy Date/Time: 06/26/2017 06:05SOURCE: BLOODSPEC DESC: [id number] GROWTH AFTER [address] [address]</pre>" /> <referenceRange > <observationRange> <text /> </ observationRange> </referenceRange> </observation> </ component> </organizer> </entry> <entry> <organizer moodCode="EVN" classCode="BATTERY"> <templateId root="216.840.1.163502.10..22.4.1" /> <id nullFlavor="NA" /> <code codeSystem="local" code="LIVER" displayName="HEPATIC FUNCTION PANEL" /> <statusCode code="completed" /> <component> <observation moodCode="EVN" classCode="OBS"> < templateId root="216.840.1.635172.10..22.4.2" /> <id nullFlavor="NA " /> <code codeSystem="local" code="BILUC" displayName="BILI UNCONJUGATED" /> <statusCode code="completed" /> < effectiveTime value="925590900118" /> <value unit="mg/dL" xsi:type="PQ " value="0.4" /> <referenceRange> <observationRange> <text>0.0-0.7</text> </observationRange> </ referenceRange> </observation> </component> <component> <observation moodCode="EVN" classCode="OBS"> <templateId root= "216.840.1.317133.10..22.4.2" /> <id nullFlavor="NA" /> < code codeSystem="local" code="AST" displayName="AST/SGOT" /> < statusCode code="completed" /> <effectiveTime value="537451488148" /> <value unit="Units/L" xsi:type="PQ" value="32" /> < referenceRange> <observationRange> <text>10-37</text> </observationRange> </referenceRange> </observation> </component> <component> <observation moodCode="EVN" classCode= "OBS"> <templateId root="840.1.583207.1022.4.2" /> < id nullFlavor="NA" /> <code codeSystem="local" code="ALT" displayName= "ALT/SGPT" /> <statusCode code="completed" /> <effectiveTime value="" /> <value unit="Units/L" xsi:type="PQ" value="27" /> <referenceRange> <observationRange> <text>& lt; 66</text> </observationRange> </referenceRange> < /observation> </component> <component> <observation moodCode= "EVN" classCode="OBS"> <templateId root="16.840.1.474672.07.02.22.4.2 " /> <id nullFlavor="NA" /> <code codeSystem="local" code="TP " displayName="TOTAL PROTEIN" /> <statusCode code="completed" /> <effectiveTime value="" /> <value unit="gm/dL" xsi:type ="PQ" value="7.3" /> <referenceRange> <observationRange> <text>6.4-8.2</text> </observationRange> </ referenceRange> </observation> </component> <component> <observation moodCode="EVN" classCode="OBS"> <templateId root= "16.840.1.638141.1022.4.2" /> <id nullFlavor="NA" /> < code codeSystem="local" code="ALB" displayName="ALBUMIN" /> < statusCode code="completed" /> <effectiveTime value="111631419790" /> <value unit="gm/dL" xsi:type="PQ" value="3.2" /> < interpretationCode codeSystem="local" code="*" /> <referenceRange> <observationRange> <text>3.4-5.0</text> </ observationRange> </referenceRange> </observation> </ component> <component> <observation moodCode="EVN" classCode="OBS"> <templateId root="16.840.1.381020.10.4.2" /> <id nullFlavor="NA" /> <code codeSystem="local" code="BILTOT" displayName= "BILI TOTAL" /> <statusCode code="completed" /> < effectiveTime value="" /> <value unit="mg/dL" xsi:type="PQ " value="0.8" /> <referenceRange> <observationRange> <text>0.0-1.0</text> </observationRange> </ referenceRange> </observation> </component> <component> <observation moodCode="EVN" classCode="OBS"> <templateId root= "10.29.840.1.639792.07.02.22.4.2" /> <id nullFlavor="NA" /> < code codeSystem="local" code="ALKP" displayName="ALKALINE PHOSPHATASE TOTAL" /> <statusCode code="completed" /> <effectiveTime value= "" /> <value unit="IU/L" xsi:type="PQ" value="87" /> <referenceRange> <observationRange> <text>45-117</ text> </observationRange> </referenceRange> </ observation> </component> <component> <observation moodCode= "EVN" classCode="OBS"> <templateId root="10.29.840.1.223058.07.02.22.4.2 " /> <id nullFlavor="NA" /> <code codeSystem="local" code= "BILC" displayName="BILI CONJUGATED" /> <statusCode code="completed" / > <effectiveTime value="" /> <value unit="mg/dL" xsi:type="PQ" value="0.4" /> <interpretationCode codeSystem="local" code="*" /> <referenceRange> <observationRange> <text>0.0-0.3</text> </observationRange> </referenceRange > </observation> </component> </organizer> </entry> <entry> <organizer moodCode="EVN" classCode="BATTERY"> <templateId root= "16.840.1.402941.10..4.1" /> <id nullFlavor="NA" /> <code codeSystem="local" code="iCHEM8" displayName="CHEM/HEM PROFILE-BEDSIDE" /> <statusCode code="completed" /> <component> <observation moodCode= "EVN" classCode="OBS"> <templateId root="16.840.1.100288.07.02.22.4.2 " /> <id nullFlavor="NA" /> <code codeSystem="local" code="K" displayName="POTASSIUM" /> <statusCode code="completed" /> < effectiveTime value="061702089535" /> <value unit="mmol/L" xsi:type="PQ " value="3.4" /> <interpretationCode codeSystem="local" code="*" /> <referenceRange> <observationRange> <text>3.5-5.3 </text> </observationRange> </referenceRange> </ observation> </component> <component> <observation moodCode= "EVN" classCode="OBS"> <templateId root="10.29.840.1.292863.07.02.22.4.2 " /> <id nullFlavor="NA" /> <code codeSystem="local" code= "CMETHOD" displayName="METHOD" /> <statusCode code="completed" /> <effectiveTime value="" /> <value unit="" xsi:type="PQ " value="Bedside" /> <referenceRange> <observationRange> <text /> </observationRange> </referenceRange> </observation> </component> <component> <observation moodCode="EVN" classCode="OBS"> <templateId root= "16.840.1.586284.1022.4.2" /> <id nullFlavor="NA" /> < code codeSystem="local" code="GAP" displayName="ANION GAP" /> < statusCode code="completed" /> <effectiveTime value="" /> <value unit="mmol/L" xsi:type="PQ" value="18" /> < referenceRange> <observationRange> <text>10-20</text> </observationRange> </referenceRange> </observation> </component> <component> <observation moodCode="EVN" classCode= "OBS"> <templateId root="10.29.840.1.845489.07.02.22.4.2" /> < id nullFlavor="NA" /> <code codeSystem="local" code="HMETHOD" displayName="METHOD" /> <statusCode code="completed" /> < effectiveTime value="" /> <value unit="" xsi:type="PQ" value="Bedside" /> <referenceRange> <observationRange> <text /> </observationRange> </referenceRange> </observation> </component> <component> <observation moodCode="EVN" classCode="OBS"> <templateId root= "10.29.840.1.845906.1022.4.2" /> <id nullFlavor="NA" /> < code codeSystem="local" code="GLU" displayName="GLUCOSE" /> < statusCode code="completed" /> <effectiveTime value="" /> <value unit="mg/dL" xsi:type="PQ" value="80" /> < referenceRange> <observationRange> <text>70-99</text> </observationRange> </referenceRange> </observation> </component> <component> <observation moodCode="EVN" classCode= "OBS"> <templateId root="216.840.1.178434.10...4.2" /> < id nullFlavor="NA" /> <code codeSystem="local" code="BUN" displayName= "BLOOD UREA NITROGEN" /> <statusCode code="completed" /> < effectiveTime value="" /> <value unit="mg/dL" xsi:type="PQ " value="15" /> <referenceRange> <observationRange> <text>7-20</text> </observationRange> </referenceRange > </observation> </component> <component> <observation moodCode="EVN" classCode="OBS"> <templateId root= "216.840.1.917442.10...4.2" /> <id nullFlavor="NA" /> < code codeSystem="local" code="CREAT" displayName="CREATININE" /> < statusCode code="completed" /> <effectiveTime value="" /> <value unit="mg/dL" xsi:type="PQ" value="0.7" /> < referenceRange> <observationRange> <text>0.7-1.3</text> </observationRange> </referenceRange> </observation > </component> <component> <observation moodCode="EVN" classCode="OBS"> <templateId root="216.840.1.251560.10..22.4.2" /> <id nullFlavor="NA" /> <code codeSystem="local" code="HGBT" displayName="HEMOGLOBIN" /> <statusCode code="completed" /> < effectiveTime value="" /> <value unit="gm/dL" xsi:type="PQ " value="13.3" /> <interpretationCode codeSystem="local" code="*" /> <referenceRange> <observationRange> <text>14.0- 18.0</text> </observationRange> </referenceRange> </ observation> </component> <component> <observation moodCode= "EVN" classCode="OBS"> <templateId root="2.16.840.1.560560.10..22.4.2 " /> <id nullFlavor="NA" /> <code codeSystem="local" code= "HCTT" displayName="HEMATOCRIT" /> <statusCode code="completed" /> <effectiveTime value="" /> <value unit="%" xsi: type="PQ" value="39.0" /> <interpretationCode codeSystem="local" code= "*" /> <referenceRange> <observationRange> < text>40.0-54.0</text> </observationRange> </referenceRange> </observation> </component> <component> <observation moodCode="EVN" classCode="OBS"> <templateId root= "216.840.1.969211.10.20.22.4.2" /> <id nullFlavor="NA" /> < code codeSystem="local" code="NA" displayName="SODIUM" /> <statusCode code="completed" /> <effectiveTime value="" /> < value unit="mmol/L" xsi:type="PQ" value="134" /> <interpretationCode codeSystem="local" code="*" /> <referenceRange> < observationRange> <text>135-148</text> </ observationRange> </referenceRange> </observation> </ component> <component> <observation moodCode="EVN" classCode="OBS"> <templateId root="216.840.1.669969.10..4.2" /> <id nullFlavor="NA" /> <code codeSystem="local" code="CL" displayName= "CHLORIDE" /> <statusCode code="completed" /> <effectiveTime value="" /> <value unit="mmol/L" xsi:type="PQ" value="100" /> <referenceRange> <observationRange> <text>98 -110</text> </observationRange> </referenceRange> </ observation> </component> <component> <observation moodCode= "EVN" classCode="OBS"> <templateId root="216.840.1.602585...4.2 " /> <id nullFlavor="NA" /> <code codeSystem="local" code="CO2 " displayName="CARBON DIOXIDE" /> <statusCode code="completed" /> <effectiveTime value="" /> <value unit="mmol/L" xsi: type="PQ" value="20" /> <interpretationCode codeSystem="local" code="* " /> <referenceRange> <observationRange> <text> 21-32</text> </observationRange> </referenceRange> </ observation> </component> <component> <observation moodCode= "EVN" classCode="OBS"> <templateId root="16.840.1.765296...4.2 " /> <id nullFlavor="NA" /> <code codeSystem="local" code= "CAION" displayName="CALCIUM IONIZED" /> <statusCode code="completed" / > <effectiveTime value="" /> <value unit="mg/dL" xsi:type="PQ" value="4.0" /> <interpretationCode codeSystem="local" code="*" /> <referenceRange> <observationRange> <text>4.5-5.3</text> </observationRange> </referenceRange > </observation> </component> </organizer> </entry> <entry> <organizer moodCode="EVN" classCode="BATTERY"> <templateId root= "10.29.840.1.889040.10.4.1" /> <id nullFlavor="NA" /> <code codeSystem="local" code="LACTG" displayName="LACTIC ACID" /> <statusCode code="completed" /> <component> <observation moodCode="EVN" classCode="OBS"> <templateId root="10.29.840.1.889211.10..4.2" /> <id nullFlavor="NA" /> <code codeSystem="local" code="LACT" displayName="LACTIC ACID" /> <statusCode code="completed" /> < effectiveTime value="297972811116" /> <value unit="mmol/L" xsi:type="PQ " value="1.0" /> <referenceRange> <observationRange> <text>0.5-2.0</text> </observationRange> </ referenceRange> </observation> </component> </organizer> </entry > <entry> <organizer moodCode="EVN" classCode="BATTERY"> <templateId root="10.29.840.1.029093.10..4.1" /> <id nullFlavor="NA" /> <code codeSystem="local" code="ABG" displayName="ARTERIAL BLOOD GAS" /> < statusCode code="completed" /> <component> <observation moodCode= "EVN" classCode="OBS"> <templateId root="10.29.830.1.393302.10...4.2 " /> <id nullFlavor="NA" /> <code codeSystem="local" code="VIMAL " displayName="ABG BASE EXCESS" /> <statusCode code="completed" /> <effectiveTime value="280255184167" /> <value unit="meq/L" xsi: type="PQ" value="-5.4" /> <interpretationCode codeSystem="local" code= "*" /> <referenceRange> <observationRange> < text>-3.0-3.0</text> </observationRange> </referenceRange> </observation> </component> <component> <observation moodCode="EVN" classCode="OBS"> <templateId root= "10.29.840.1.685025.07.02.22.4.2" /> <id nullFlavor="NA" /> < code codeSystem="local" code="HCO3A" displayName="ABG BICARBONATE" /> < statusCode code="completed" /> <effectiveTime value="545892836002" /> <value unit="meq/L" xsi:type="PQ" value="17.1" /> < interpretationCode codeSystem="local" code="*" /> <referenceRange> <observationRange> <text>23.0-28.0</text> </ observationRange> </referenceRange> </observation> </ component> <component> <observation moodCode="EVN" classCode="OBS"> <templateId root="10.29.840.1.044269.10..4.2" /> <id nullFlavor="NA" /> <code codeSystem="local" code="PCO2A" displayName= "ABG PCO2" /> <statusCode code="completed" /> <effectiveTime value="058940816670" /> <value unit="mmHg" xsi:type="PQ" value="26" /> <interpretationCode codeSystem="local" code="*" /> < referenceRange> <observationRange> <text>34-45</text> </observationRange> </referenceRange> </observation> </component> <component> <observation moodCode="EVN" classCode= "OBS"> <templateId root="10.29.840.1.637054.10...4.2" /> < id nullFlavor="NA" /> <code codeSystem="local" code="PHAX" displayName= "ABG PH" /> <statusCode code="completed" /> <effectiveTime value="462294766743" /> <value unit="" xsi:type="PQ" value="7.43" /> <referenceRange> <observationRange> <text>7.35- 7.45</text> </observationRange> </referenceRange> </ observation> </component> <component> <observation moodCode= "EVN" classCode="OBS"> <templateId root="840.1.048423.10...4.2 " /> <id nullFlavor="NA" /> <code codeSystem="local" code= "PO2A" displayName="ABG PO2" /> <statusCode code="completed" /> <effectiveTime value="082191015414" /> <value unit="mmHg" xsi:type= "PQ" value="133" /> <interpretationCode codeSystem="local" code="*" /> <referenceRange> <observationRange> <text>75- 100</text> </observationRange> </referenceRange> </ observation> </component> <component> <observation moodCode= "EVN" classCode="OBS"> <templateId root="10.29.840.1.132285.10..22.4.2 " /> <id nullFlavor="NA" /> <code codeSystem="local" code= "SATA" displayName="ABG O2 SATURATION" /> <statusCode code="completed" /> <effectiveTime value="353219479597" /> <value unit="%" xsi:type="PQ" value="99" /> <referenceRange> < observationRange> <text>93-100</text> </observationRange > </referenceRange> </observation> </component> </ organizer> </entry> <entry> <organizer moodCode="EVN" classCode="BATTERY"> <templateId root="16.840.1.149435.10.20.22.4.1" /> <id nullFlavor= "NA" /> <code codeSystem="local" code="HIVPCR-QNT" displayName="RNA HIV 1 BY PCR QUANTITATIVE" /> <statusCode code="completed" /> <component> <observation moodCode="EVN" classCode="OBS"> <templateId root= "16.840.1.090052.10.20.22.4.2" /> <id nullFlavor="NA" /> < code codeSystem="local" code="HIV.PCR/QUANT" displayName="RNA HIV 1 QUANTITATIVE " /> <statusCode code="completed" /> <effectiveTime value= "683263686687" /> <value unit="/mL" xsi:type="PQ" value="984820" /> <referenceRange> <observationRange> <text><20 COPIES</text> </observationRange> </referenceRange> < /observation> </component> <component> <observation moodCode= "EVN" classCode="OBS"> <templateId root="10.29.840.1.607995.10.20.22.4.2 " /> <id nullFlavor="NA" /> <code codeSystem="local" code= "RNAHIVCOPIES" displayName="RNA HIV COPIES LOG 10" /> <statusCode code= "completed" /> <effectiveTime value="588875143388" /> <value unit="LOG10" xsi:type="PQ" value="5.04" /> <referenceRange> <observationRange> <text><1.30 LOG10</text> </ observationRange> </referenceRange> </observation> </ component> </organizer> </entry> <entry> <organizer moodCode="EVN" classCode="BATTERY"> <templateId root="10.29.840.1.251941.10..22.4.1" /> <id nullFlavor="NA" /> <code codeSystem="local" code="CBCD" displayName="CBC W/DIFF" /> <statusCode code="completed" /> <component > <observation moodCode="EVN" classCode="OBS"> <templateId root= "10.29.840.1.173384.10..4.2" /> <id nullFlavor="NA" /> < code codeSystem="local" code="EO#" displayName="EOSINOPHIL #" /> < statusCode code="completed" /> <effectiveTime value="273216624494" /> <value unit="k/cumm" xsi:type="PQ" value="0.1" /> < referenceRange> <observationRange> <text>0.1-0.5</text> </observationRange> </referenceRange> </observation > </component> <component> <observation moodCode="EVN" classCode="OBS"> <templateId root="10.29.840.1.606413.10.22.4.2" /> <id nullFlavor="NA" /> <code codeSystem="local" code="EO% " displayName="EOSINOPHIL %" /> <statusCode code="completed" /> <effectiveTime value="624274025514" /> <value unit="%" xsi: type="PQ" value="1" /> <interpretationCode codeSystem="local" code="*" /> <referenceRange> <observationRange> <text>2- 4</text> </observationRange> </referenceRange> </ observation> </component> <component> <observation moodCode= "EVN" classCode="OBS"> <templateId root="216.840.1.160466.10...4.2 " /> <id nullFlavor="NA" /> <code codeSystem="local" code="GR# " displayName="GRANULOCYTE #" /> <statusCode code="completed" /> <effectiveTime value="985628720006" /> <value unit="k/cumm" xsi: type="PQ" value="8.0" /> <referenceRange> <observationRange > <text>2.0-9.0</text> </observationRange> </ referenceRange> </observation> </component> <component> <observation moodCode="EVN" classCode="OBS"> <templateId root= "16.840.1.826775.10...4.2" /> <id nullFlavor="NA" /> < code codeSystem="local" code="GR%" displayName="GRANULOCYTE %" /> <statusCode code="completed" /> <effectiveTime value="171963540496 " /> <value unit="%" xsi:type="PQ" value="72" /> < referenceRange> <observationRange> <text>50-75</text> </observationRange> </referenceRange> </observation> </component> <component> <observation moodCode="EVN" classCode= "OBS"> <templateId root="216.840.1.149332.07.02.22.4.2" /> < id nullFlavor="NA" /> <code codeSystem="local" code="LY#" displayName= "LYMPHOCYTE #" /> <statusCode code="completed" /> < effectiveTime value="559089209110" /> <value unit="k/cumm" xsi:type="PQ " value="1.7" /> <referenceRange> <observationRange> <text>1.0-4.0</text> </observationRange> </ referenceRange> </observation> </component> <component> <observation moodCode="EVN" classCode="OBS"> <templateId root= "216.840.1.614859.07.02.224.2" /> <id nullFlavor="NA" /> < code codeSystem="local" code="LY%" displayName="LYMPHOCYTE %" /> <statusCode code="completed" /> <effectiveTime value="203775943217" /> <value unit="%" xsi:type="PQ" value="15" /> < interpretationCode codeSystem="local" code="*" /> <referenceRange> <observationRange> <text>20-30</text> </ observationRange> </referenceRange> </observation> </ component> <component> <observation moodCode="EVN" classCode="OBS"> <templateId root="10.29.840.1.358287.07.02.22.4.2" /> <id nullFlavor="NA" /> <code codeSystem="local" code="MCH" displayName= "MEAN CELL HGB" /> <statusCode code="completed" /> < effectiveTime value="864335141158" /> <value unit="pg" xsi:type="PQ" value="29.9" /> <referenceRange> <observationRange> <text>27.0-33.0</text> </observationRange> </ referenceRange> </observation> </component> <component> <observation moodCode="EVN" classCode="OBS"> <templateId root= "16.840.1.302709.10.4.2" /> <id nullFlavor="NA" /> < code codeSystem="local" code="MCHC" displayName="MEAN CELL HGB CONCENTRATION" / > <statusCode code="completed" /> <effectiveTime value= "813973739396" /> <value unit="g/dL" xsi:type="PQ" value="34.3" /> <referenceRange> <observationRange> <text>32.0- 37.0</text> </observationRange> </referenceRange> </ observation> </component> <component> <observation moodCode= "EVN" classCode="OBS"> <templateId root="10.29.840.1.913433.07.02.22.4.2 " /> <id nullFlavor="NA" /> <code codeSystem="local" code="MCV " displayName="MEAN CELL VOLUME" /> <statusCode code="completed" /> <effectiveTime value="984444938069" /> <value unit="fl" xsi:type ="PQ" value="87.4" /> <referenceRange> <observationRange> <text>80.0-100.0</text> </observationRange> </ referenceRange> </observation> </component> <component> <observation moodCode="EVN" classCode="OBS"> <templateId root= "10.29.840.1.681058.07.02.22.4.2" /> <id nullFlavor="NA" /> < code codeSystem="local" code="MO#" displayName="MONOCYTE #" /> < statusCode code="completed" /> <effectiveTime value="550341167526" /> <value unit="k/cumm" xsi:type="PQ" value="1.3" /> < interpretationCode codeSystem="local" code="*" /> <referenceRange> <observationRange> <text>0.1-1.0</text> </ observationRange> </referenceRange> </observation> </ component> <component> <observation moodCode="EVN" classCode="OBS"> <templateId root="840.1.066243.1022.4.2" /> <id nullFlavor="NA" /> <code codeSystem="local" code="MO%" displayName= "MONOCYTE %" /> <statusCode code="completed" /> < effectiveTime value="828771880832" /> <value unit="%" xsi:type="PQ " value="12" /> <interpretationCode codeSystem="local" code="*" /> <referenceRange> <observationRange> <text>4-6</ text> </observationRange> </referenceRange> </ observation> </component> <component> <observation moodCode= "EVN" classCode="OBS"> <templateId root="840.1.348113.10..4.2 " /> <id nullFlavor="NA" /> <code codeSystem="local" code= "MPVT" displayName="MEAN PLATELET VOLUME" /> <statusCode code= "completed" /> <effectiveTime value="014334265203" /> <value unit="fl" xsi:type="PQ" value="9.6" /> <referenceRange> < observationRange> <text>8.5-10.9</text> </ observationRange> </referenceRange> </observation> </ component> <component> <observation moodCode="EVN" classCode="OBS"> <templateId root=".1.801271.10.20.22.4.2" /> <id nullFlavor="NA" /> <code codeSystem="local" code="RBC" displayName=" RED BLOOD CELL" /> <statusCode code="completed" /> < effectiveTime value="311514612888" /> <value unit="m/cumm" xsi:type="PQ " value="3.74" /> <interpretationCode codeSystem="local" code="*" /> <referenceRange> <observationRange> <text>4.00- 6.00</text> </observationRange> </referenceRange> </ observation> </component> <component> <observation moodCode= "EVN" classCode="OBS"> <templateId root="10.29.840.1.496926.10...4.2 " /> <id nullFlavor="NA" /> <code codeSystem="local" code="RDW " displayName="RED CELL DISTRIBUTION WIDTH" /> <statusCode code= "completed" /> <effectiveTime value="579244829241" /> <value unit="%" xsi:type="PQ" value="13.2" /> <referenceRange> <observationRange> <text>11.0-15.6</text> </ observationRange> </referenceRange> </observation> </ component> <component> <observation moodCode="EVN" classCode="OBS"> <templateId root="10.29.840.1.335965.10..22.4.2" /> <id nullFlavor="NA" /> <code codeSystem="local" code="WBC" displayName= "WHITE BLOOD CELL" /> <statusCode code="completed" /> < effectiveTime value="888525969294" /> <value unit="k/cumm" xsi:type="PQ " value="11.2" /> <interpretationCode codeSystem="local" code="*" /> <referenceRange> <observationRange> <text>5.0- 10.0</text> </observationRange> </referenceRange> </ observation> </component> <component> <observation moodCode= "EVN" classCode="OBS"> <templateId root="216.840.1.379056.10...4.2 " /> <id nullFlavor="NA" /> <code codeSystem="local" code= "HGBT" displayName="HEMOGLOBIN" /> <statusCode code="completed" /> <effectiveTime value="056235836741" /> <value unit="gm/dL" xsi: type="PQ" value="11.2" /> <interpretationCode codeSystem="local" code= "*" /> <referenceRange> <observationRange> < text>14.0-18.0</text> </observationRange> </referenceRange> </observation> </component> <component> <observation moodCode="EVN" classCode="OBS"> <templateId root= "16.840.1.304723.10...4.2" /> <id nullFlavor="NA" /> < code codeSystem="local" code="HCTT" displayName="HEMATOCRIT" /> < statusCode code="completed" /> <effectiveTime value="034535146230" /> <value unit="%" xsi:type="PQ" value="32.7" /> < interpretationCode codeSystem="local" code="*" /> <referenceRange> <observationRange> <text>40.0-54.0</text> </ observationRange> </referenceRange> </observation> </ component> <component> <observation moodCode="EVN" classCode="OBS"> <templateId root="216.840.1.165344.104.2" /> <id nullFlavor="NA" /> <code codeSystem="local" code="NRBC%" displayName="NRBC %" /> <statusCode code="completed" /> < effectiveTime value="056408543823" /> <value unit="/100WBC" xsi:type= "PQ" value="0.0" /> <referenceRange> <observationRange> <text>0.0-0.0</text> </observationRange> </ referenceRange> </observation> </component> <component> <observation moodCode="EVN" classCode="OBS"> <templateId root= "216.840.1.252507.07.02.224.2" /> <id nullFlavor="NA" /> < code codeSystem="local" code="NRBC#" displayName="NRBC #" /> < statusCode code="completed" /> <effectiveTime value="283112386156" /> <value unit="k/cumm" xsi:type="PQ" value="0.00" /> < interpretationCode codeSystem="local" code="*" /> <referenceRange> <observationRange> <text>0.03-0.11</text> </ observationRange> </referenceRange> </observation> </ component> <component> <observation moodCode="EVN" classCode="OBS"> <templateId root="16.840.1.739847.07.02.224.2" /> <id nullFlavor="NA" /> <code codeSystem="local" code="PLTT" displayName= "PLATELET COUNT" /> <statusCode code="completed" /> < effectiveTime value="369938909428" /> <value unit="k/cumm" xsi:type="PQ " value="152" /> <referenceRange> <observationRange> <text>150-400</text> </observationRange> </ referenceRange> </observation> </component> <component> <observation moodCode="EVN" classCode="OBS"> <templateId root= "216.840.1.660380.10..22.4.2" /> <id nullFlavor="NA" /> < code codeSystem="local" code="IG%" displayName="IMMATURE GRANULOCYTE %" /> <statusCode code="completed" /> <effectiveTime value= "412130226033" /> <value unit="%" xsi:type="PQ" value="0.4" /> <referenceRange> <observationRange> <text>0.0-0.6< /text> </observationRange> </referenceRange> </ observation> </component> <component> <observation moodCode= "EVN" classCode="OBS"> <templateId root="10.29.840.1.221012.07.02.22.4.2 " /> <id nullFlavor="NA" /> <code codeSystem="local" code="IG# " displayName="IMMATURE GRANULOCYTE #" /> <statusCode code="completed" /> <effectiveTime value="212995435865" /> <value unit="k/cumm " xsi:type="PQ" value="0.05" /> <referenceRange> < observationRange> <text>0.00-0.09</text> </ observationRange> </referenceRange> </observation> </ component> </organizer> </entry> <entry> <organizer moodCode="EVN" classCode="BATTERY"> <templateId root="216.840.1.339089.10..4.1" /> <id nullFlavor="NA" /> <code codeSystem="local" code="LACTG" displayName="LACTIC ACID" /> <statusCode code="completed" /> < component> <observation moodCode="EVN" classCode="OBS"> < templateId root="2.16.840.1.231489.10..22.4.2" /> <id nullFlavor="NA " /> <code codeSystem="local" code="LACT" displayName="LACTIC ACID" /> <statusCode code="completed" /> <effectiveTime value= "549085236814" /> <value unit="mmol/L" xsi:type="PQ" value="0.8" /> <referenceRange> <observationRange> <text>0.5-2.0 </text> </observationRange> </referenceRange> </ observation> </component> </organizer> </entry> <entry> <organizer moodCode="EVN" classCode="BATTERY"> <templateId root= "2.16.840.1.184397.10..22.4.1" /> <id nullFlavor="NA" /> <code codeSystem="local" code="RENAL" displayName="RENAL FUNCTION PANEL" /> < statusCode code="completed" /> <component> <observation moodCode= "EVN" classCode="OBS"> <templateId root="2.16.840.1.661830.10.20.22.4.2 " /> <id nullFlavor="NA" /> <code codeSystem="local" code="K" displayName="POTASSIUM" /> <statusCode code="completed" /> < effectiveTime value="679061182872" /> <value unit="mmol/L" xsi:type="PQ " value="3.4" /> <interpretationCode codeSystem="local" code="*" /> <referenceRange> <observationRange> <text>3.5-5.3 </text> </observationRange> </referenceRange> </ observation> </component> <component> <observation moodCode= "EVN" classCode="OBS"> <templateId root="16.840.1.476506.10..22.4.2 " /> <id nullFlavor="NA" /> <code codeSystem="local" code= "eGFR" displayName="EST GFR (MDRD)" /> <statusCode code="completed" /> <effectiveTime value="559055614928" /> <value unit="mL/min" xsi:type="PQ" value="> 60" /> <referenceRange> < observationRange> <text>> 59</text> </ observationRange> </referenceRange> </observation> </ component> <component> <observation moodCode="EVN" classCode="OBS"> <templateId root="10.29.840.1.339269.10...4.2" /> <id nullFlavor="NA" /> <code codeSystem="local" code="GAP" displayName= "ANION GAP" /> <statusCode code="completed" /> <effectiveTime value="365740391246" /> <value unit="mmol/L" xsi:type="PQ" value="7" / > <referenceRange> <observationRange> <text>5- 15</text> </observationRange> </referenceRange> </ observation> </component> <component> <observation moodCode= "EVN" classCode="OBS"> <templateId root="10.29.840.1.180464.10..22.4.2 " /> <id nullFlavor="NA" /> <code codeSystem="local" code= "eCrCl" displayName="EST CrCl (CG)" /> <statusCode code="completed" /> <effectiveTime value="231039294056" /> <value unit="mL/min" xsi:type="PQ" value="> 60" /> <referenceRange> < observationRange> <text>> 59</text> </ observationRange> </referenceRange> </observation> </ component> <component> <observation moodCode="EVN" classCode="OBS"> <templateId root="10.29.840.1.932697.10.4.2" /> <id nullFlavor="NA" /> <code codeSystem="local" code="GLU" displayName= "GLUCOSE" /> <statusCode code="completed" /> <effectiveTime value="329981561480" /> <value unit="mg/dL" xsi:type="PQ" value="85" / > <referenceRange> <observationRange> <text>70- 99</text> </observationRange> </referenceRange> </ observation> </component> <component> <observation moodCode= "EVN" classCode="OBS"> <templateId root="10.29.840.1.140803.07.02.22.4.2 " /> <id nullFlavor="NA" /> <code codeSystem="local" code="CA " displayName="CALCIUM" /> <statusCode code="completed" /> < effectiveTime value="243248514513" /> <value unit="mg/dL" xsi:type="PQ " value="7.8" /> <interpretationCode codeSystem="local" code="*" /> <referenceRange> <observationRange> <text>8.5- 10.1</text> </observationRange> </referenceRange> </ observation> </component> <component> <observation moodCode= "EVN" classCode="OBS"> <templateId root="10.29.840.1.188583.07.02.22.4.2 " /> <id nullFlavor="NA" /> <code codeSystem="local" code="BUN " displayName="BLOOD UREA NITROGEN" /> <statusCode code="completed" /> <effectiveTime value="962074137850" /> <value unit="mg/dL" xsi:type="PQ" value="12" /> <referenceRange> < observationRange> <text>7-20</text> </observationRange> </referenceRange> </observation> </component> < component> <observation moodCode="EVN" classCode="OBS"> < templateId root="216.840.1.076513.10.22.4.2" /> <id nullFlavor="NA " /> <code codeSystem="local" code="CREAT" displayName="CREATININE" /> <statusCode code="completed" /> <effectiveTime value= "056101323217" /> <value unit="mg/dL" xsi:type="PQ" value="0.8" /> <referenceRange> <observationRange> <text>0.7-1.3< /text> </observationRange> </referenceRange> </ observation> </component> <component> <observation moodCode= "EVN" classCode="OBS"> <templateId root="16.840.1.341111.10...4.2 " /> <id nullFlavor="NA" /> <code codeSystem="local" code="NA " displayName="SODIUM" /> <statusCode code="completed" /> < effectiveTime value="177374633031" /> <value unit="mmol/L" xsi:type="PQ " value="132" /> <interpretationCode codeSystem="local" code="*" /> <referenceRange> <observationRange> <text>135-148 </text> </observationRange> </referenceRange> </ observation> </component> <component> <observation moodCode= "EVN" classCode="OBS"> <templateId root="216.840.1.734954.10..4.2 " /> <id nullFlavor="NA" /> <code codeSystem="local" code="CL " displayName="CHLORIDE" /> <statusCode code="completed" /> < effectiveTime value="623917695100" /> <value unit="mmol/L" xsi:type="PQ " value="102" /> <referenceRange> <observationRange> <text>98-110</text> </observationRange> </ referenceRange> </observation> </component> <component> <observation moodCode="EVN" classCode="OBS"> <templateId root= "2.16.840.1.273671.10..4.2" /> <id nullFlavor="NA" /> < code codeSystem="local" code="CO2" displayName="CARBON DIOXIDE" /> < statusCode code="completed" /> <effectiveTime value="550896399744" /> <value unit="mmol/L" xsi:type="PQ" value="23" /> < referenceRange> <observationRange> <text>21-32</text> </observationRange> </referenceRange> </observation> </component> <component> <observation moodCode="EVN" classCode= "OBS"> <templateId root="2.16.840.1.726379.10...4.2" /> < id nullFlavor="NA" /> <code codeSystem="local" code="ALB" displayName= "ALBUMIN" /> <statusCode code="completed" /> <effectiveTime value="086567454198" /> <value unit="gm/dL" xsi:type="PQ" value="2.6" / > <interpretationCode codeSystem="local" code="*" /> < referenceRange> <observationRange> <text>3.4-5.0</text> </observationRange> </referenceRange> </observation > </component> <component> <observation moodCode="EVN" classCode="OBS"> <templateId root="2.16.840.1.317343.10.20.22.4.2" /> <id nullFlavor="NA" /> <code codeSystem="local" code="PHOS" displayName="PHOSPHORUS" /> <statusCode code="completed" /> < effectiveTime value="350400897593" /> <value unit="mg/dL" xsi:type="PQ " value="2.6" /> <referenceRange> <observationRange> <text>2.5-4.9</text> </observationRange> </ referenceRange> </observation> </component> </organizer> </entry > <entry> <organizer moodCode="EVN" classCode="BATTERY"> <templateId root="2.16.840.1.392477.10.20.22.4.1" /> <id nullFlavor="NA" /> <code codeSystem="local" code="GIPROFILE" displayName="GASTROINTESTINAL PROFILE" /> <statusCode code="completed" /> <component> <observation moodCode="EVN" classCode="OBS"> <templateId root= "2.16.840.1.647357.10.20.22.4.2" /> <id nullFlavor="NA" /> < code codeSystem="local" code="MB" displayName="Microbiology" /> < statusCode code="completed" /> <effectiveTime value="230320002299" /> <value xsi:type="ST" value="<pre><b>GASTROINTESTINAL PROFILE</b> See BelowGASTROINTESTINAL PROFILE(F) Alicia Date/Time: 06/21/2017 09:49 Mitzy Date/Time: 06/21/2017 14:07SOURCE: STOOLSPEC DESC: ADENOVIRUS F 40/41NOT DETECTEDASTROVIRUSNOT DETECTEDCAMPYLOBACTERNOT DETECTEDCRYPTOSPORIDIUMNOT DETECTEDCYCLOSPORA CAYETANENSISNOT DETECTEDENTEROAGGREGATIVE E.COLINOT DETECTEDE.COLI 0157NOT DETECTEDSHIGELLA / EIECNOT DETECTEDENTAMOEBA HISTOLYTICANOT DETECTEDENTEROPATHOGENIC E.COLINOT DETECTEDENTEROTOXIGENIC E.COLINOT DETECTEDGIARDIA LAMBLIANOT DETECTEDNOROVIRUS GI/GIINOT DETECTEDPLESIOMONAS SHIGELLOIDESNOT DETECTEDROTAVIRUS ANOT DETECTEDSALMONELLANOT DETECTEDSAPOVIRUSNOT DETECTEDSHIGA-LIKE TOXIN E.COLINOT DETECTEDVIBRIO CHOLERAENOT DETECTEDVIBRIONOT DETECTEDYERSINIA ENTEROCOLITICANOT DETECTED[address] [address]</pre>" /> <referenceRange> <observationRange> <text /> </observationRange> </referenceRange> </observation> </ component> </organizer> </entry> <entry> <organizer moodCode="EVN" classCode="BATTERY"> <templateId root="2.16.840.1.295537.10.20.22.4.1" /> <id nullFlavor="NA" /> <code codeSystem="local" code="CDTOX" displayName="CLOSTRIDIUM DIFFICILE DNA" /> <statusCode code="completed" /> <component> <observation moodCode="EVN" classCode="OBS"> < templateId root="2.16.840.1.216564.10.20.22.4.2" /> <id nullFlavor="NA " /> <code codeSystem="local" code="MB" displayName="Microbiology" /> <statusCode code="completed" /> <effectiveTime value= "409841709076" /> <value xsi:type="ST" value="<pre><b>CLOSTRIDIUM DIFFICILE DNA</b> See BelowPatient meets both criteria for C Diff testing: YCLOSTRIDIUM DIFFICILE DNA(F) Alicia Date/Time: 06/21/2017 09:49 Mitzy Date/Time: 06/21/2017 14:08SOURCE: STOOLSPEC DESC: LIQUIDC.DIFFICILE TOXINNEGATIVE FOR CLOSTRIDIUM DIFFICILE TOXIGENIC B GENE BY PCR[address] [place] [address]</pre>" /> < referenceRange> <observationRange> <text /> < /observationRange> </referenceRange> </observation> </ component> </organizer> </entry> <entry> <organizer moodCode="EVN" classCode="BATTERY"> <templateId root="2.16.840.1.684843.10.20.22.4.1" /> <id nullFlavor="NA" /> <code codeSystem="local" code="OP" displayName= "OVA AND PARASITES" /> <statusCode code="completed" /> <component> <observation moodCode="EVN" classCode="OBS"> <templateId root= "2.16.840.1.360084.10.20.22.4.2" /> <id nullFlavor="NA" /> < code codeSystem="local" code="MB" displayName="Microbiology" /> < statusCode code="completed" /> <effectiveTime value="923176960146" /> <value xsi:type="ST" value="<pre><b>OVA AND PARASITES</b> See BelowOVA AND PARASITES(F) Alicia Date/Time: 06/21/2017 09:49 Mitzy Date/Time: 06/22/2017 11:42SOURCE: STOOLSPEC DESC: CRYPTOSPORIDIUM, CYCLOSPORA AND MICROSPORIDIA WILL NOT BE DETECTED BY THIS METHOD.OP REPORTNO OVA AND/OR PARASITES SEEN[address] [address]</pre>" /> <referenceRange> < observationRange> <text /> </observationRange> </referenceRange> </observation> </component> </organizer> </ entry> <entry> <organizer moodCode="EVN" classCode="BATTERY"> < templateId root="2.1[id number]" /> <id nullFlavor="NA" /> <code codeSystem="local" code="UA" displayName="URINALYSIS, ROUTINE" /> <statusCode code="completed" /> <component> <observation moodCode="EVN" classCode="OBS"> <templateId root= "[id number]" /> <id nullFlavor="NA" /> < code codeSystem="local" code="LEUESU" displayName="UA LEUKOCYTE ESTERASE DIPSTICK" /> <statusCode code="completed" /> <effectiveTime value="[id number]" /> <value unit="" xsi:type="PQ" value="TRACE" /> <interpretationCode codeSystem="local" code="*" /> < referenceRange> <observationRange> <text>NEGATIVE</text > </observationRange> </referenceRange> </observation > </component> <component> <observation moodCode="EVN" classCode="OBS"> <templateId root="840.1.399757.07.02.224.2" /> <id nullFlavor="NA" /> <code codeSystem="local" code="NITRIU" displayName="UA NITRITE DIPSTICK" /> <statusCode code="completed" /> <effectiveTime value="965371421819" /> <value unit="" xsi:type= "PQ" value="NEGATIVE" /> <referenceRange> <observationRange > <text>NEGATIVE</text> </observationRange> </ referenceRange> </observation> </component> <component> <observation moodCode="EVN" classCode="OBS"> <templateId root= "10.29.840.1.774690.07.02.22.4.2" /> <id nullFlavor="NA" /> < code codeSystem="local" code="PROTEIU" displayName="UA PROTEIN DIPSTICK" /> <statusCode code="completed" /> <effectiveTime value= "774358496525" /> <value unit="" xsi:type="PQ" value="1+" /> < interpretationCode codeSystem="local" code="*" /> <referenceRange> <observationRange> <text>NEGATIVE</text> </ observationRange> </referenceRange> </observation> </ component> <component> <observation moodCode="EVN" classCode="OBS"> <templateId root="10.29.840.1.319786.07.02.22.4.2" /> <id nullFlavor="NA" /> <code codeSystem="local" code="DGLUU" displayName= "UA GLUCOSE DIPSTICK" /> <statusCode code="completed" /> < effectiveTime value="799896490765" /> <value unit="" xsi:type="PQ" value="NEGATIVE" /> <referenceRange> <observationRange> <text>NEGATIVE</text> </observationRange> </ referenceRange> </observation> </component> <component> <observation moodCode="EVN" classCode="OBS"> <templateId root= "16.840.1.414258.07.02.22.4.2" /> <id nullFlavor="NA" /> < code codeSystem="local" code="KETONU" displayName="UA KETONE DIPSTICK" /> <statusCode code="completed" /> <effectiveTime value="212810055427 " /> <value unit="" xsi:type="PQ" value="2+" /> < interpretationCode codeSystem="local" code="*" /> <referenceRange> <observationRange> <text>NEGATIVE</text> </ observationRange> </referenceRange> </observation> </ component> <component> <observation moodCode="EVN" classCode="OBS"> <templateId root="10.29.840.1.405498..4.2" /> <id nullFlavor="NA" /> <code codeSystem="local" code="UROBILU" displayName= "UA UROBILINOGEN DIPSTICK" /> <statusCode code="completed" /> <effectiveTime value="305564628906" /> <value unit="" xsi:type="PQ" value="2+" /> <interpretationCode codeSystem="local" code="*" /> <referenceRange> <observationRange> <text>NORMAL</ text> </observationRange> </referenceRange> </ observation> </component> <component> <observation moodCode= "EVN" classCode="OBS"> <templateId root="10.29.840.1.504147.07.02.22.4.2 " /> <id nullFlavor="NA" /> <code codeSystem="local" code= "BILU" displayName="UA BILIRUBIN DIPSTICK" /> <statusCode code= "completed" /> <effectiveTime value="205899591613" /> <value unit="" xsi:type="PQ" value="POSITIVE" /> <interpretationCode codeSystem="local" code="*" /> <referenceRange> < observationRange> <text>NEGATIVE</text> </ observationRange> </referenceRange> </observation> </ component> <component> <observation moodCode="EVN" classCode="OBS"> <templateId root="10.29.840.1.322404...4.2" /> <id nullFlavor="NA" /> <code codeSystem="local" code="MARY" displayName="UA BLOOD DIPSTICK" /> <statusCode code="completed" /> < effectiveTime value="182981250606" /> <value unit="" xsi:type="PQ" value="NEGATIVE" /> <referenceRange> <observationRange> <text>NEGATIVE</text> </observationRange> </ referenceRange> </observation> </component> <component> <observation moodCode="EVN" classCode="OBS"> <templateId root= "2.16.840.1.052068.10.4.2" /> <id nullFlavor="NA" /> < code codeSystem="local" code="SPGRU" displayName="UA SPECIFIC GRAVITY" /> <statusCode code="completed" /> <effectiveTime value="921231151508 " /> <value unit="" xsi:type="PQ" value="1.019" /> < referenceRange> <observationRange> <text>1.015-1.025</ text> </observationRange> </referenceRange> </ observation> </component> <component> <observation moodCode= "EVN" classCode="OBS"> <templateId root="216.840.1.365028.07.02.22.4.2 " /> <id nullFlavor="NA" /> <code codeSystem="local" code="CINDY " displayName="UR PH" /> <statusCode code="completed" /> < effectiveTime value="234099242035" /> <value unit="" xsi:type="PQ" value="5.0" /> <referenceRange> <observationRange> <text>5.0-7.0</text> </observationRange> </ referenceRange> </observation> </component> </organizer> </entry > <entry> <organizer moodCode="EVN" classCode="BATTERY"> <templateId root="2.16.840.1.731140...4.1" /> <id nullFlavor="NA" /> <code codeSystem="local" code="UAMICRO" displayName="UA MICROSCOPIC" /> < statusCode code="completed" /> <component> <observation moodCode= "EVN" classCode="OBS"> <templateId root="16.840.1.874452.10..22.4.2 " /> <id nullFlavor="NA" /> <code codeSystem="local" code= "BACU" displayName="UA BACTERIA" /> <statusCode code="completed" /> <effectiveTime value="942841297541" /> <value unit="" xsi:type= "PQ" value="2+" /> <interpretationCode codeSystem="local" code="*" /> <referenceRange> <observationRange> <text> NEGATIVE</text> </observationRange> </referenceRange> </observation> </component> <component> <observation moodCode ="EVN" classCode="OBS"> <templateId root= "840.1.553444.07.02.22.4.2" /> <id nullFlavor="NA" /> < code codeSystem="local" code="EPIU" displayName="UA EPITHELIAL CELLS" /> <statusCode code="completed" /> <effectiveTime value="848158152686" /> <value unit="epi/hpf" xsi:type="PQ" value="1+" /> < referenceRange> <observationRange> <text>0 - 1+</text> </observationRange> </referenceRange> </observation> </component> <component> <observation moodCode="EVN" classCode ="OBS"> <templateId root="10.29.840.1.846434.10..4.2" /> < id nullFlavor="NA" /> <code codeSystem="local" code="MUCUSU" displayName="UA MUCUS" /> <statusCode code="completed" /> < effectiveTime value="859700743400" /> <value unit="" xsi:type="PQ" value="2+" /> <interpretationCode codeSystem="local" code="*" /> <referenceRange> <observationRange> <text>NEG TO 1+< /text> </observationRange> </referenceRange> </ observation> </component> <component> <observation moodCode= "EVN" classCode="OBS"> <templateId root="216.840.1.788712.10...4.2 " /> <id nullFlavor="NA" /> <code codeSystem="local" code= "RBCU" displayName="UA RBC" /> <statusCode code="completed" /> <effectiveTime value="773735619249" /> <value unit="rbc/hpf" xsi:type ="PQ" value="0" /> <referenceRange> <observationRange> <text>0 - 3</text> </observationRange> </ referenceRange> </observation> </component> <component> <observation moodCode="EVN" classCode="OBS"> <templateId root= "10.29.840.1.534650...4.2" /> <id nullFlavor="NA" /> < code codeSystem="local" code="UAVOL" displayName="UA VOLUME FOR EXAM" /> <statusCode code="completed" /> <effectiveTime value="851880419950" /> <value unit="mL" xsi:type="PQ" value="12.0" /> < referenceRange> <observationRange> <text>(12mL STD)</ text> </observationRange> </referenceRange> </ observation> </component> <component> <observation moodCode= "EVN" classCode="OBS"> <templateId root="10.29.840.1.647162.10.20.22.4.2 " /> <id nullFlavor="NA" /> <code codeSystem="local" code= "WBCU" displayName="UA WBC" /> <statusCode code="completed" /> <effectiveTime value="305367350142" /> <value unit="wbc/hpf" xsi:type ="PQ" value="0-1" /> <referenceRange> <observationRange> <text>0 - 5</text> </observationRange> </ referenceRange> </observation> </component> </organizer> </entry > <entry> <organizer moodCode="EVN" classCode="BATTERY"> <templateId root="216.840.1.216345.10..22.4.1" /> <id nullFlavor="NA" /> <code codeSystem="local" code="DRUGAB" displayName="UR DRUGS OF ABUSE SCREEN" /> <statusCode code="completed" /> <component> <observation moodCode= "EVN" classCode="OBS"> <templateId root="216.840.1.836702.10...4.2 " /> <id nullFlavor="NA" /> <code codeSystem="local" code= "AMPHU" displayName="UR AMPHETAMINES SCREEN" /> <statusCode code= "completed" /> <effectiveTime value="499660872190" /> <value unit="" xsi:type="PQ" value="NEG (<1000 ng/mL)" /> <referenceRange > <observationRange> <text>NEGATIVE</text> </ observationRange> </referenceRange> </observation> </ component> <component> <observation moodCode="EVN" classCode="OBS"> <templateId root="2.16.840.1.761514.10..22.4.2" /> <id nullFlavor="NA" /> <code codeSystem="local" code="BARBU" displayName= "UR BARBITURATE SCREEN" /> <statusCode code="completed" /> < effectiveTime value="388190704788" /> <value unit="" xsi:type="PQ" value="NEG (< 200 ng/mL)" /> <referenceRange> < observationRange> <text>NEGATIVE</text> </ observationRange> </referenceRange> </observation> </ component> <component> <observation moodCode="EVN" classCode="OBS"> <templateId root="216.840.1.035203.10..22.4.2" /> <id nullFlavor="NA" /> <code codeSystem="local" code="DAUCOMMENT" displayName="DRUGS OF ABUSE SCREEN COMMENT" /> <statusCode code= "completed" /> <effectiveTime value="037014970934" /> <value unit="" xsi:type="PQ" value="" /> <referenceRange> < observationRange> <text /> </observationRange> </referenceRange> </observation> </component> <component> <observation moodCode="EVN" classCode="OBS"> <templateId root= "16.840.1.674638.10...4.2" /> <id nullFlavor="NA" /> < code codeSystem="local" code="OPIU" displayName="UR OPIATES SCREEN" /> <statusCode code="completed" /> <effectiveTime value="073914641237" /> <value unit="" xsi:type="PQ" value="POS (> 300 ng/mL)" /> <interpretationCode codeSystem="local" code="*" /> <referenceRange> <observationRange> <text>NEGATIVE</text> </ observationRange> </referenceRange> </observation> </ component> <component> <observation moodCode="EVN" classCode="OBS"> <templateId root="216.840.1.919421.10..22.4.2" /> <id nullFlavor="NA" /> <code codeSystem="local" code="PCPU" displayName=" UR PHENCYCLIDINE (PCP) SCREEN" /> <statusCode code="completed" /> <effectiveTime value="404072194516" /> <value unit="" xsi:type="PQ " value="NEG (< 25 ng/mL)" /> <referenceRange> < observationRange> <text>NEGATIVE</text> </ observationRange> </referenceRange> </observation> </ component> <component> <observation moodCode="EVN" classCode="OBS"> <templateId root="2.16.840.1.369111.10..22.4.2" /> <id nullFlavor="NA" /> <code codeSystem="local" code="THCU" displayName=" UR CANNABINOIDS (THC) SCREEN" /> <statusCode code="completed" /> <effectiveTime value="741872661934" /> <value unit="" xsi:type="PQ " value="POS (> 50 ng/mL)" /> <interpretationCode codeSystem= "local" code="*" /> <referenceRange> <observationRange> <text>NEGATIVE</text> </observationRange> </ referenceRange> </observation> </component> <component> <observation moodCode="EVN" classCode="OBS"> <templateId root= "2.16.840.1.106253.10..22.4.2" /> <id nullFlavor="NA" /> < code codeSystem="local" code="COCAU" displayName="UR COCAINE METABOLITE SCREEN" /> <statusCode code="completed" /> <effectiveTime value= "985299820671" /> <value unit="" xsi:type="PQ" value="NEG (< 300 ng /mL)" /> <referenceRange> <observationRange> < text>NEGATIVE</text> </observationRange> </referenceRange> </observation> </component> <component> <observation moodCode="EVN" classCode="OBS"> <templateId root= "2.16.840.1.790462.10..22.4.2" /> <id nullFlavor="NA" /> < code codeSystem="local" code="METHU" displayName="UR METHADONE SCREEN" /> <statusCode code="completed" /> <effectiveTime value="728814315189 " /> <value unit="" xsi:type="PQ" value="NEG (< 300 ng/mL)" /> <referenceRange> <observationRange> <text>NEGATIVE </text> </observationRange> </referenceRange> </ observation> </component> <component> <observation moodCode= "EVN" classCode="OBS"> <templateId root="2.16.840.1.088735.07.02.22.4.2 " /> <id nullFlavor="NA" /> <code codeSystem="local" code= "BENZU" displayName="UR BENZODIAZEPINE SCREEN" /> <statusCode code= "completed" /> <effectiveTime value="012686613631" /> <value unit="" xsi:type="PQ" value="NEG (< 200 ng/mL)" /> <referenceRange > <observationRange> <text>NEGATIVE</text> </ observationRange> </referenceRange> </observation> </ component> </organizer> </entry> <entry> <organizer moodCode="EVN" classCode="BATTERY"> <templateId root="2.16.840.1.374983.10..22.4.1" /> <id nullFlavor="NA" /> <code codeSystem="local" code="CBCD" displayName="CBC W/DIFF" /> <statusCode code="completed" /> <component > <observation moodCode="EVN" classCode="OBS"> <templateId root= "10.29.840.1.805823.10.22.4.2" /> <id nullFlavor="NA" /> < code codeSystem="local" code="EO#" displayName="EOSINOPHIL #" /> < statusCode code="completed" /> <effectiveTime value="" /> <value unit="k/cumm" xsi:type="PQ" value="0.7" /> < interpretationCode codeSystem="local" code="*" /> <referenceRange> <observationRange> <text>0.1-0.5</text> </ observationRange> </referenceRange> </observation> </ component> <component> <observation moodCode="EVN" classCode="OBS"> <templateId root="10.29.840.1.543132.10.4.2" /> <id nullFlavor="NA" /> <code codeSystem="local" code="EO%" displayName= "EOSINOPHIL %" /> <statusCode code="completed" /> < effectiveTime value="" /> <value unit="%" xsi:type="PQ " value="10" /> <interpretationCode codeSystem="local" code="*" /> <referenceRange> <observationRange> <text>2-4</ text> </observationRange> </referenceRange> </ observation> </component> <component> <observation moodCode= "EVN" classCode="OBS"> <templateId root="10.29.840.1.633938.10.22.4.2 " /> <id nullFlavor="NA" /> <code codeSystem="local" code="GR# " displayName="GRANULOCYTE #" /> <statusCode code="completed" /> <effectiveTime value="" /> <value unit="k/cumm" xsi: type="PQ" value="4.4" /> <referenceRange> <observationRange > <text>2.0-9.0</text> </observationRange> </ referenceRange> </observation> </component> <component> <observation moodCode="EVN" classCode="OBS"> <templateId root= "216.840.1.277263.10...4.2" /> <id nullFlavor="NA" /> < code codeSystem="local" code="GR%" displayName="GRANULOCYTE %" /> <statusCode code="completed" /> <effectiveTime value=" " /> <value unit="%" xsi:type="PQ" value="62" /> < referenceRange> <observationRange> <text>50-75</text> </observationRange> </referenceRange> </observation> </component> <component> <observation moodCode="EVN" classCode= "OBS"> <templateId root="10.29.840.1.953535.10..4.2" /> < id nullFlavor="NA" /> <code codeSystem="local" code="LY#" displayName= "LYMPHOCYTE #" /> <statusCode code="completed" /> < effectiveTime value="" /> <value unit="k/cumm" xsi:type="PQ " value="1.1" /> <referenceRange> <observationRange> <text>1.0-4.0</text> </observationRange> </ referenceRange> </observation> </component> <component> <observation moodCode="EVN" classCode="OBS"> <templateId root= "16.840.1.473689.10..22.4.2" /> <id nullFlavor="NA" /> < code codeSystem="local" code="LY%" displayName="LYMPHOCYTE %" /> <statusCode code="completed" /> <effectiveTime value="" /> <value unit="%" xsi:type="PQ" value="16" /> < interpretationCode codeSystem="local" code="*" /> <referenceRange> <observationRange> <text>20-30</text> </ observationRange> </referenceRange> </observation> </ component> <component> <observation moodCode="EVN" classCode="OBS"> <templateId root="2.16.840.1.829409.10...4.2" /> <id nullFlavor="NA" /> <code codeSystem="local" code="MCH" displayName= "MEAN CELL HGB" /> <statusCode code="completed" /> < effectiveTime value="" /> <value unit="pg" xsi:type="PQ" value="29.9" /> <referenceRange> <observationRange> <text>27.0-33.0</text> </observationRange> </ referenceRange> </observation> </component> <component> <observation moodCode="EVN" classCode="OBS"> <templateId root= "2.16.840.1.628839.10...4.2" /> <id nullFlavor="NA" /> < code codeSystem="local" code="MCHC" displayName="MEAN CELL HGB CONCENTRATION" / > <statusCode code="completed" /> <effectiveTime value= "" /> <value unit="g/dL" xsi:type="PQ" value="33.9" /> <referenceRange> <observationRange> <text>32.0- 37.0</text> </observationRange> </referenceRange> </ observation> </component> <component> <observation moodCode= "EVN" classCode="OBS"> <templateId root="10.29.840.1.643664.10.22.4.2 " /> <id nullFlavor="NA" /> <code codeSystem="local" code="MCV " displayName="MEAN CELL VOLUME" /> <statusCode code="completed" /> <effectiveTime value="" /> <value unit="fl" xsi:type ="PQ" value="88.1" /> <referenceRange> <observationRange> <text>80.0-100.0</text> </observationRange> </ referenceRange> </observation> </component> <component> <observation moodCode="EVN" classCode="OBS"> <templateId root= "10.29.840.1.431267.07.02.22.4.2" /> <id nullFlavor="NA" /> < code codeSystem="local" code="MO#" displayName="MONOCYTE #" /> < statusCode code="completed" /> <effectiveTime value="" /> <value unit="k/cumm" xsi:type="PQ" value="0.9" /> < referenceRange> <observationRange> <text>0.1-1.0</text> </observationRange> </referenceRange> </observation > </component> <component> <observation moodCode="EVN" classCode="OBS"> <templateId root="10.29.840.1.029883.10.2022.4.2" /> <id nullFlavor="NA" /> <code codeSystem="local" code="MO% " displayName="MONOCYTE %" /> <statusCode code="completed" /> <effectiveTime value="" /> <value unit="%" xsi: type="PQ" value="12" /> <interpretationCode codeSystem="local" code="* " /> <referenceRange> <observationRange> <text> 4-6</text> </observationRange> </referenceRange> </ observation> </component> <component> <observation moodCode= "EVN" classCode="OBS"> <templateId root="10.29.840.1.120307.10.20.22.4.2 " /> <id nullFlavor="NA" /> <code codeSystem="local" code= "MPVT" displayName="MEAN PLATELET VOLUME" /> <statusCode code= "completed" /> <effectiveTime value="" /> <value unit="fl" xsi:type="PQ" value="10.0" /> <referenceRange> < observationRange> <text>8.5-10.9</text> </ observationRange> </referenceRange> </observation> </ component> <component> <observation moodCode="EVN" classCode="OBS"> <templateId root="10.29.840.1.941260.10...4.2" /> <id nullFlavor="NA" /> <code codeSystem="local" code="RBC" displayName=" RED BLOOD CELL" /> <statusCode code="completed" /> < effectiveTime value="" /> <value unit="m/cumm" xsi:type="PQ " value="3.95" /> <interpretationCode codeSystem="local" code="*" /> <referenceRange> <observationRange> <text>4.00- 6.00</text> </observationRange> </referenceRange> </ observation> </component> <component> <observation moodCode= "EVN" classCode="OBS"> <templateId root="10.29.840.1.374826.10.20.22.4.2 " /> <id nullFlavor="NA" /> <code codeSystem="local" code="RDW " displayName="RED CELL DISTRIBUTION WIDTH" /> <statusCode code= "completed" /> <effectiveTime value="" /> <value unit="%" xsi:type="PQ" value="13.4" /> <referenceRange> <observationRange> <text>11.0-15.6</text> </ observationRange> </referenceRange> </observation> </ component> <component> <observation moodCode="EVN" classCode="OBS"> <templateId root="2.16.840.1.745564.10..22.4.2" /> <id nullFlavor="NA" /> <code codeSystem="local" code="WBC" displayName= "WHITE BLOOD CELL" /> <statusCode code="completed" /> < effectiveTime value="" /> <value unit="k/cumm" xsi:type="PQ " value="7.2" /> <referenceRange> <observationRange> <text>5.0-10.0</text> </observationRange> </ referenceRange> </observation> </component> <component> <observation moodCode="EVN" classCode="OBS"> <templateId root= "2.16.840.1.729805.10..22.4.2" /> <id nullFlavor="NA" /> < code codeSystem="local" code="HGBT" displayName="HEMOGLOBIN" /> < statusCode code="completed" /> <effectiveTime value="" /> <value unit="gm/dL" xsi:type="PQ" value="11.8" /> < interpretationCode codeSystem="local" code="*" /> <referenceRange> <observationRange> <text>14.0-18.0</text> </ observationRange> </referenceRange> </observation> </ component> <component> <observation moodCode="EVN" classCode="OBS"> <templateId root="216.840.1.599887.07.02.22.4.2" /> <id nullFlavor="NA" /> <code codeSystem="local" code="HCTT" displayName= "HEMATOCRIT" /> <statusCode code="completed" /> < effectiveTime value="" /> <value unit="%" xsi:type="PQ " value="34.8" /> <interpretationCode codeSystem="local" code="*" /> <referenceRange> <observationRange> <text>40.0- 54.0</text> </observationRange> </referenceRange> </ observation> </component> <component> <observation moodCode= "EVN" classCode="OBS"> <templateId root="10.29.840.1.882241.07.02.224.2 " /> <id nullFlavor="NA" /> <code codeSystem="local" code= "NRBC%" displayName="NRBC %" /> <statusCode code="completed" / > <effectiveTime value="" /> <value unit="/100WBC " xsi:type="PQ" value="0.0" /> <referenceRange> < observationRange> <text>0.0-0.0</text> </ observationRange> </referenceRange> </observation> </ component> <component> <observation moodCode="EVN" classCode="OBS"> <templateId root="216.840.1.427121.10.4.2" /> <id nullFlavor="NA" /> <code codeSystem="local" code="NRBC#" displayName= "NRBC #" /> <statusCode code="completed" /> <effectiveTime value="" /> <value unit="k/cumm" xsi:type="PQ" value="0.00 " /> <interpretationCode codeSystem="local" code="*" /> < referenceRange> <observationRange> <text>0.03-0.11</text > </observationRange> </referenceRange> </observation > </component> <component> <observation moodCode="EVN" classCode="OBS"> <templateId root="216.840.1.544327.10...4.2" /> <id nullFlavor="NA" /> <code codeSystem="local" code="PLTT" displayName="PLATELET COUNT" /> <statusCode code="completed" /> <effectiveTime value="" /> <value unit="k/cumm" xsi:type ="PQ" value="191" /> <referenceRange> <observationRange> <text>150-400</text> </observationRange> </ referenceRange> </observation> </component> <component> <observation moodCode="EVN" classCode="OBS"> <templateId root= "216.840.1.202149...22.4.2" /> <id nullFlavor="NA" /> < code codeSystem="local" code="IG%" displayName="IMMATURE GRANULOCYTE %" /> <statusCode code="completed" /> <effectiveTime value= "" /> <value unit="%" xsi:type="PQ" value="0.7" /> <interpretationCode codeSystem="local" code="*" /> < referenceRange> <observationRange> <text>0.0-0.6</text> </observationRange> </referenceRange> </observation > </component> <component> <observation moodCode="EVN" classCode="OBS"> <templateId root="10.29.840.1.089664.10..4.2" /> <id nullFlavor="NA" /> <code codeSystem="local" code="IG#" displayName="IMMATURE GRANULOCYTE #" /> <statusCode code="completed" / > <effectiveTime value="321367323355" /> <value unit="k/cumm" xsi:type="PQ" value="0.05" /> <referenceRange> < observationRange> <text>0.00-0.09</text> </ observationRange> </referenceRange> </observation> </ component> </organizer> </entry> <entry> <organizer moodCode="EVN" classCode="BATTERY"> <templateId root="840.1.428862...4.1" /> <id nullFlavor="NA" /> <code codeSystem="local" code="RENAL" displayName="RENAL FUNCTION PANEL" /> <statusCode code="completed" /> <component> <observation moodCode="EVN" classCode="OBS"> < templateId root="10.29.840.1.139881.10...4.2" /> <id nullFlavor="NA " /> <code codeSystem="local" code="K" displayName="POTASSIUM" /> <statusCode code="completed" /> <effectiveTime value="635997007211 " /> <value unit="mmol/L" xsi:type="PQ" value="3.6" /> < referenceRange> <observationRange> <text>3.5-5.3</text> </observationRange> </referenceRange> </observation > </component> <component> <observation moodCode="EVN" classCode="OBS"> <templateId root="10.29.840.1.820355.07.02.22.4.2" /> <id nullFlavor="NA" /> <code codeSystem="local" code="eGFR" displayName="EST GFR (MDRD)" /> <statusCode code="completed" /> <effectiveTime value="" /> <value unit="mL/min" xsi:type ="PQ" value="> 60" /> <referenceRange> <observationRange > <text>> 59</text> </observationRange> </ referenceRange> </observation> </component> <component> <observation moodCode="EVN" classCode="OBS"> <templateId root= "2.16.840.1.079347.10.4.2" /> <id nullFlavor="NA" /> < code codeSystem="local" code="GAP" displayName="ANION GAP" /> < statusCode code="completed" /> <effectiveTime value="" /> <value unit="mmol/L" xsi:type="PQ" value="7" /> < referenceRange> <observationRange> <text>5-15</text> </observationRange> </referenceRange> </observation> </component> <component> <observation moodCode="EVN" classCode= "OBS"> <templateId root="2.16.840.1.420413.10.4.2" /> < id nullFlavor="NA" /> <code codeSystem="local" code="eCrCl" displayName ="EST CrCl (CG)" /> <statusCode code="completed" /> < effectiveTime value="" /> <value unit="mL/min" xsi:type="PQ " value="> 60" /> <referenceRange> <observationRange> <text>> 59</text> </observationRange> </ referenceRange> </observation> </component> <component> <observation moodCode="EVN" classCode="OBS"> <templateId root= "10.29.840.1.565876.10.20.22.4.2" /> <id nullFlavor="NA" /> < code codeSystem="local" code="GLU" displayName="GLUCOSE" /> < statusCode code="completed" /> <effectiveTime value="" /> <value unit="mg/dL" xsi:type="PQ" value="82" /> < referenceRange> <observationRange> <text>70-99</text> </observationRange> </referenceRange> </observation> </component> <component> <observation moodCode="EVN" classCode= "OBS"> <templateId root="10.29.840.1.354573.10.22.4.2" /> < id nullFlavor="NA" /> <code codeSystem="local" code="CA" displayName= "CALCIUM" /> <statusCode code="completed" /> <effectiveTime value="" /> <value unit="mg/dL" xsi:type="PQ" value="8.2" / > <interpretationCode codeSystem="local" code="*" /> < referenceRange> <observationRange> <text>8.5-10.1</text > </observationRange> </referenceRange> </observation > </component> <component> <observation moodCode="EVN" classCode="OBS"> <templateId root="10.29.840.1.982497.10.20.22.4.2" /> <id nullFlavor="NA" /> <code codeSystem="local" code="BUN" displayName="BLOOD UREA NITROGEN" /> <statusCode code="completed" /> <effectiveTime value="" /> <value unit="mg/dL" xsi: type="PQ" value="13" /> <referenceRange> <observationRange> <text>7-20</text> </observationRange> </ referenceRange> </observation> </component> <component> <observation moodCode="EVN" classCode="OBS"> <templateId root= "16.840.1.822121.10..22.4.2" /> <id nullFlavor="NA" /> < code codeSystem="local" code="CREAT" displayName="CREATININE" /> < statusCode code="completed" /> <effectiveTime value="" /> <value unit="mg/dL" xsi:type="PQ" value="0.9" /> < referenceRange> <observationRange> <text>0.7-1.3</text> </observationRange> </referenceRange> </observation > </component> <component> <observation moodCode="EVN" classCode="OBS"> <templateId root="10.29.840.1.015720.22.4.2" /> <id nullFlavor="NA" /> <code codeSystem="local" code="NA" displayName="SODIUM" /> <statusCode code="completed" /> < effectiveTime value="" /> <value unit="mmol/L" xsi:type="PQ " value="136" /> <referenceRange> <observationRange> <text>135-148</text> </observationRange> </ referenceRange> </observation> </component> <component> <observation moodCode="EVN" classCode="OBS"> <templateId root= "10.29.840.1.405712...22.4.2" /> <id nullFlavor="NA" /> < code codeSystem="local" code="CL" displayName="CHLORIDE" /> < statusCode code="completed" /> <effectiveTime value="" /> <value unit="mmol/L" xsi:type="PQ" value="105" /> < referenceRange> <observationRange> <text>98-110</text> </observationRange> </referenceRange> </observation> </component> <component> <observation moodCode="EVN" classCode ="OBS"> <templateId root="16.840.1.339530.10...4.2" /> < id nullFlavor="NA" /> <code codeSystem="local" code="CO2" displayName= "CARBON DIOXIDE" /> <statusCode code="completed" /> < effectiveTime value="" /> <value unit="mmol/L" xsi:type="PQ " value="24" /> <referenceRange> <observationRange> <text>21-32</text> </observationRange> </ referenceRange> </observation> </component> <component> <observation moodCode="EVN" classCode="OBS"> <templateId root= "10.29.840.1.852391.10...4.2" /> <id nullFlavor="NA" /> < code codeSystem="local" code="ALB" displayName="ALBUMIN" /> < statusCode code="completed" /> <effectiveTime value="" /> <value unit="gm/dL" xsi:type="PQ" value="2.6" /> < interpretationCode codeSystem="local" code="*" /> <referenceRange> <observationRange> <text>3.4-5.0</text> </ observationRange> </referenceRange> </observation> </ component> <component> <observation moodCode="EVN" classCode="OBS"> <templateId root="10.29.840.1.160787.10..22.4.2" /> <id nullFlavor="NA" /> <code codeSystem="local" code="PHOS" displayName= "PHOSPHORUS" /> <statusCode code="completed" /> < effectiveTime value="544330665527" /> <value unit="mg/dL" xsi:type="PQ " value="2.9" /> <referenceRange> <observationRange> <text>2.5-4.9</text> </observationRange> </ referenceRange> </observation> </component> </organizer> </entry > <entry> <organizer moodCode="EVN" classCode="BATTERY"> <templateId root="216.840.1.561833.10...4.1" /> <id nullFlavor="NA" /> <code codeSystem="local" code="CBCWD" displayName="CBC With Platelet and Differential " /> <statusCode code="completed" /> <component> <observation moodCode="EVN" classCode="OBS"> <templateId root= "16.840.1.660182.10...4.2" /> <id nullFlavor="NA" /> < code codeSystem="local" code="ABASR" displayName="Absolute Basophils" /> <statusCode code="completed" /> <effectiveTime value="620624058876" /> <value unit="10*3/uL" xsi:type="PQ" value="0.03" /> < referenceRange> <observationRange> <text>0.00-0.20</text > </observationRange> </referenceRange> </observation > </component> <component> <observation moodCode="EVN" classCode="OBS"> <templateId root="16.840.1.912102.10.20.22.4.2" /> <id nullFlavor="NA" /> <code codeSystem="local" code="AEOSR" displayName="Absolute Eosinophils" /> <statusCode code="completed" /> <effectiveTime value="867921462558" /> <value unit="10*3/uL" xsi:type="PQ" value="0.50" /> <referenceRange> < observationRange> <text>0.00-0.50</text> </ observationRange> </referenceRange> </observation> </ component> <component> <observation moodCode="EVN" classCode="OBS"> <templateId root="216.840.1.613149....4.2" /> <id nullFlavor="NA" /> <code codeSystem="local" code="ALYMR" displayName= "Absolute Lymphocytes" /> <statusCode code="completed" /> < effectiveTime value="038427211578" /> <value unit="10*3/uL" xsi:type= "PQ" value="1.70" /> <referenceRange> <observationRange> <text>0.80-3.30</text> </observationRange> </ referenceRange> </observation> </component> <component> <observation moodCode="EVN" classCode="OBS"> <templateId root= "216.840.1.200201....4.2" /> <id nullFlavor="NA" /> < code codeSystem="local" code="AMONR" displayName="Absolute Monocytes" /> <statusCode code="completed" /> <effectiveTime value="390107136783" /> <value unit="10*3/uL" xsi:type="PQ" value="1.10" /> < interpretationCode codeSystem="local" code="*" /> <referenceRange> <observationRange> <text>0.30-1.00</text> </ observationRange> </referenceRange> </observation> </ component> <component> <observation moodCode="EVN" classCode="OBS"> <templateId root="10.29.840.1.904136.10..22.4.2" /> <id nullFlavor="NA" /> <code codeSystem="local" code="ASEGR" displayName= "Absolute Neutrophils" /> <statusCode code="completed" /> < effectiveTime value="925456987543" /> <value unit="10*3/uL" xsi:type= "PQ" value="3.68" /> <referenceRange> <observationRange> <text>1.90-7.00</text> </observationRange> </ referenceRange> </observation> </component> <component> <observation moodCode="EVN" classCode="OBS"> <templateId root= "16.840.1.214718.10..4.2" /> <id nullFlavor="NA" /> < code codeSystem="local" code="BASOR" displayName="Basophils" /> < statusCode code="completed" /> <effectiveTime value="380850205940" /> <value unit="%" xsi:type="PQ" value="0" /> <referenceRange > <observationRange> <text>0-2</text> </ observationRange> </referenceRange> </observation> </ component> <component> <observation moodCode="EVN" classCode="OBS"> <templateId root="16.840.1.497127.10..4.2" /> <id nullFlavor="NA" /> <code codeSystem="local" code="EOSR" displayName= "Eosinophils" /> <statusCode code="completed" /> < effectiveTime value="684417685088" /> <value unit="%" xsi:type="PQ " value="7" /> <interpretationCode codeSystem="local" code="*" /> <referenceRange> <observationRange> <text>0-4</text > </observationRange> </referenceRange> </observation > </component> <component> <observation moodCode="EVN" classCode="OBS"> <templateId root="10.29.840.1.158396.10.2022.4.2" /> <id nullFlavor="NA" /> <code codeSystem="local" code="HCT" displayName="HCT" /> <statusCode code="completed" /> < effectiveTime value="900753028982" /> <value unit="%" xsi:type="PQ " value="39.3" /> <interpretationCode codeSystem="local" code="*" /> <referenceRange> <observationRange> <text>42.0- 52.0</text> </observationRange> </referenceRange> </ observation> </component> <component> <observation moodCode= "EVN" classCode="OBS"> <templateId root="10.29.840.1.198520.10..4.2 " /> <id nullFlavor="NA" /> <code codeSystem="local" code="HGB " displayName="HGB" /> <statusCode code="completed" /> < effectiveTime value="178700921340" /> <value unit="g/dL" xsi:type="PQ" value="12.9" /> <interpretationCode codeSystem="local" code="*" /> <referenceRange> <observationRange> <text>14.0- 18.0</text> </observationRange> </referenceRange> </ observation> </component> <component> <observation moodCode= "EVN" classCode="OBS"> <templateId root="10.29.840.1.894285.10.20.22.4.2 " /> <id nullFlavor="NA" /> <code codeSystem="local" code= "IMGA" displayName="Immature Granulocytes" /> <statusCode code= "completed" /> <effectiveTime value="766735365773" /> <value unit="%" xsi:type="PQ" value="0.4" /> <referenceRange> < observationRange> <text>0.0-1.0</text> </ observationRange> </referenceRange> </observation> </ component> <component> <observation moodCode="EVN" classCode="OBS"> <templateId root="10.29.840.1.048147.10.2022.4.2" /> <id nullFlavor="NA" /> <code codeSystem="local" code="LYMPR" displayName= "Lymphocytes" /> <statusCode code="completed" /> < effectiveTime value="638847551530" /> <value unit="%" xsi:type="PQ " value="24" /> <referenceRange> <observationRange> <text>20-46</text> </observationRange> </ referenceRange> </observation> </component> <component> <observation moodCode="EVN" classCode="OBS"> <templateId root= "10.29.840.1.830267.22.4.2" /> <id nullFlavor="NA" /> < code codeSystem="local" code="MCH" displayName="MCH" /> <statusCode code="completed" /> <effectiveTime value="660404525769" /> < value unit="pg" xsi:type="PQ" value="29.7" /> <referenceRange> <observationRange> <text>27.0-32.0</text> </ observationRange> </referenceRange> </observation> </ component> <component> <observation moodCode="EVN" classCode="OBS"> <templateId root="10.29.840.1.723342.10.20.22.4.2" /> <id nullFlavor="NA" /> <code codeSystem="local" code="MCHC" displayName= "MCHC" /> <statusCode code="completed" /> <effectiveTime value ="706692203748" /> <value unit="g/dL" xsi:type="PQ" value="32.8" /> <referenceRange> <observationRange> <text>32.0- 36.0</text> </observationRange> </referenceRange> </ observation> </component> <component> <observation moodCode= "EVN" classCode="OBS"> <templateId root="216.840.1.909412.07.02.22.4.2 " /> <id nullFlavor="NA" /> <code codeSystem="local" code="MCV " displayName="MCV" /> <statusCode code="completed" /> < effectiveTime value="564967428958" /> <value unit="fL" xsi:type="PQ" value="90.3" /> <referenceRange> <observationRange> <text>82.0-99.0</text> </observationRange> </ referenceRange> </observation> </component> <component> <observation moodCode="EVN" classCode="OBS"> <templateId root= "2.16.840.1.212632.10.4.2" /> <id nullFlavor="NA" /> < code codeSystem="local" code="MONOR" displayName="Monocytes" /> < statusCode code="completed" /> <effectiveTime value="582814134624" /> <value unit="%" xsi:type="PQ" value="16" /> < interpretationCode codeSystem="local" code="*" /> <referenceRange> <observationRange> <text>4-11</text> </ observationRange> </referenceRange> </observation> </ component> <component> <observation moodCode="EVN" classCode="OBS"> <templateId root="16.840.1.230044.10..4.2" /> <id nullFlavor="NA" /> <code codeSystem="local" code="MPV" displayName="MPV " /> <statusCode code="completed" /> <effectiveTime value= "" /> <value unit="fL" xsi:type="PQ" value="10.5" /> <referenceRange> <observationRange> <text>9.4-12.3</ text> </observationRange> </referenceRange> </ observation> </component> <component> <observation moodCode= "EVN" classCode="OBS"> <templateId root="10.29.840.1.903895.07.02.22.4.2 " /> <id nullFlavor="NA" /> <code codeSystem="local" code= "SEGR" displayName="Neutrophils" /> <statusCode code="completed" /> <effectiveTime value="045461244983" /> <value unit="%" xsi: type="PQ" value="52" /> <referenceRange> <observationRange> <text>51-75</text> </observationRange> </ referenceRange> </observation> </component> <component> <observation moodCode="EVN" classCode="OBS"> <templateId root= "10.29.840.1.151971.10..4.2" /> <id nullFlavor="NA" /> < code codeSystem="local" code="NRBCA" displayName="Nucleated RBC Automated" /> <statusCode code="completed" /> <effectiveTime value= "906868873732" /> <value unit="/100WBC" xsi:type="PQ" value="0.0" /> <referenceRange> <observationRange> <text /> </observationRange> </referenceRange> </observation> </component> <component> <observation moodCode="EVN" classCode= "OBS"> <templateId root="16.840.1.473257.102022.4.2" /> < id nullFlavor="NA" /> <code codeSystem="local" code="PLT" displayName= "Platelet Count" /> <statusCode code="completed" /> < effectiveTime value="647914325841" /> <value unit="K/uL" xsi:type="PQ" value="207" /> <referenceRange> <observationRange> <text>150-400</text> </observationRange> </ referenceRange> </observation> </component> <component> <observation moodCode="EVN" classCode="OBS"> <templateId root= "10.29.840.1.029397.07.02.22.4.2" /> <id nullFlavor="NA" /> < code codeSystem="local" code="RBC" displayName="RBC" /> <statusCode code="completed" /> <effectiveTime value="077994295199" /> < value unit="10*6/uL" xsi:type="PQ" value="4.35" /> <interpretationCode codeSystem="local" code="*" /> <referenceRange> < observationRange> <text>4.60-6.20</text> </ observationRange> </referenceRange> </observation> </ component> <component> <observation moodCode="EVN" classCode="OBS"> <templateId root="10.29.840.1.286681.22.4.2" /> <id nullFlavor="NA" /> <code codeSystem="local" code="RDW" displayName="RDW " /> <statusCode code="completed" /> <effectiveTime value= "546458815779" /> <value unit="%" xsi:type="PQ" value="14.9" /> <interpretationCode codeSystem="local" code="*" /> < referenceRange> <observationRange> <text>11.5-14.5</text > </observationRange> </referenceRange> </observation > </component> <component> <observation moodCode="EVN" classCode="OBS"> <templateId root="10.29.840.1.731301.10.20.22.4.2" /> <id nullFlavor="NA" /> <code codeSystem="local" code="WBCIR" displayName="WBC" /> <statusCode code="completed" /> < effectiveTime value="037681097181" /> <value unit="K/uL" xsi:type="PQ" value="7.0" /> <referenceRange> <observationRange> <text>4.8-10.8</text> </observationRange> </ referenceRange> </observation> </component> </organizer> </entry > <entry> <organizer moodCode="EVN" classCode="BATTERY"> <templateId root="10.29.840.1.398795.10..22.4.1" /> <id nullFlavor="NA" /> <code codeSystem="local" code="TROP" displayName="Troponin" /> <statusCode code= "completed" /> <component> <observation moodCode="EVN" classCode= "OBS"> <templateId root="840.1.154273.10.20.22.4.2" /> < id nullFlavor="NA" /> <code codeSystem="local" code="TROP" displayName= "Troponin" /> <statusCode code="completed" /> <effectiveTime value="704562755538" /> <value unit="ng/mL" xsi:type="PQ" value="< 0.05" /> <referenceRange> <observationRange> < text><0.06</text> </observationRange> </referenceRange> </observation> </component> </organizer> </entry> <entry> < organizer moodCode="EVN" classCode="BATTERY"> <templateId root= "10.29.840.1.067716.10.22.4.1" /> <id nullFlavor="NA" /> <code codeSystem="local" code="CMP" displayName="Comprehensive Metabolic Panel (CMP)" /> <statusCode code="completed" /> <component> <observation moodCode="EVN" classCode="OBS"> <templateId root= "16.840.1.614327.10..4.2" /> <id nullFlavor="NA" /> < code codeSystem="local" code="ALB" displayName="Albumin" /> < statusCode code="completed" /> <effectiveTime value="001795256408" /> <value unit="g/dL" xsi:type="PQ" value="3.6" /> < referenceRange> <observationRange> <text>3.5-4.8</text> </observationRange> </referenceRange> </observation > </component> <component> <observation moodCode="EVN" classCode="OBS"> <templateId root="10.29.840.1.700250.10..22.4.2" /> <id nullFlavor="NA" /> <code codeSystem="local" code="ALP" displayName="Alkaline Phosphatase" /> <statusCode code="completed" /> <effectiveTime value="858208670953" /> <value unit="U/L" xsi: type="PQ" value="79" /> <referenceRange> <observationRange> <text>26-104</text> </observationRange> </ referenceRange> </observation> </component> <component> <observation moodCode="EVN" classCode="OBS"> <templateId root= "16.840.1.275076.10..22.4.2" /> <id nullFlavor="NA" /> < code codeSystem="local" code="ALT" displayName="ALT (SGPT)" /> < statusCode code="completed" /> <effectiveTime value="670849658019" /> <value unit="U/L" xsi:type="PQ" value="41" /> <referenceRange > <observationRange> <text>17-63</text> </ observationRange> </referenceRange> </observation> </ component> <component> <observation moodCode="EVN" classCode="OBS"> <templateId root="10.29.840.1.396878...4.2" /> <id nullFlavor="NA" /> <code codeSystem="local" code="AGAP" displayName= "Anion Gap" /> <statusCode code="completed" /> <effectiveTime value="976077965313" /> <value unit="mEq/L" xsi:type="PQ" value="11" / > <referenceRange> <observationRange> <text>3- 20</text> </observationRange> </referenceRange> </ observation> </component> <component> <observation moodCode= "EVN" classCode="OBS"> <templateId root="10.29.840.1.607988....4.2 " /> <id nullFlavor="NA" /> <code codeSystem="local" code="AST " displayName="AST (SGOT)" /> <statusCode code="completed" /> <effectiveTime value="015710368888" /> <value unit="U/L" xsi:type="PQ" value="42" /> <interpretationCode codeSystem="local" code="*" /> <referenceRange> <observationRange> <text>15-41</ text> </observationRange> </referenceRange> </ observation> </component> <component> <observation moodCode= "EVN" classCode="OBS"> <templateId root="16.840.1.780608.10.2022.4.2 " /> <id nullFlavor="NA" /> <code codeSystem="local" code= "BILIT" displayName="Bilirubin Total" /> <statusCode code="completed" / > <effectiveTime value="111077332226" /> <value unit="mg/dL" xsi:type="PQ" value="0.7" /> <referenceRange> < observationRange> <text>0.2-1.2</text> </ observationRange> </referenceRange> </observation> </ component> <component> <observation moodCode="EVN" classCode="OBS"> <templateId root="10.29.840.1.184810.22.4.2" /> <id nullFlavor="NA" /> <code codeSystem="local" code="BUN" displayName="BUN " /> <statusCode code="completed" /> <effectiveTime value= "224679116832" /> <value unit="mg/dL" xsi:type="PQ" value="9" /> <referenceRange> <observationRange> <text>4-20</text > </observationRange> </referenceRange> </observation > </component> <component> <observation moodCode="EVN" classCode="OBS"> <templateId root="10.29.840.1.256429.10.2022.4.2" /> <id nullFlavor="NA" /> <code codeSystem="local" code="CA" displayName="Calcium" /> <statusCode code="completed" /> < effectiveTime value="486755209609" /> <value unit="mg/dL" xsi:type="PQ " value="9.1" /> <referenceRange> <observationRange> <text>8.6-10.0</text> </observationRange> </ referenceRange> </observation> </component> <component> <observation moodCode="EVN" classCode="OBS"> <templateId root= "10.29.840.1.372454.07.02.22.4.2" /> <id nullFlavor="NA" /> < code codeSystem="local" code="CL" displayName="Chloride" /> < statusCode code="completed" /> <effectiveTime value="437607569208" /> <value unit="mEq/L" xsi:type="PQ" value="106" /> < referenceRange> <observationRange> <text>99-109</text> </observationRange> </referenceRange> </observation> </component> <component> <observation moodCode="EVN" classCode ="OBS"> <templateId root="16.840.1.491191.07.02.22.4.2" /> < id nullFlavor="NA" /> <code codeSystem="local" code="CO2" displayName= "CO2" /> <statusCode code="completed" /> <effectiveTime value= "673987547169" /> <value unit="mEq/L" xsi:type="PQ" value="22" /> <referenceRange> <observationRange> <text>22-32</ text> </observationRange> </referenceRange> </ observation> </component> <component> <observation moodCode= "EVN" classCode="OBS"> <templateId root="10.29.840.1.286604.07.02.22.4.2 " /> <id nullFlavor="NA" /> <code codeSystem="local" code= "CREAT" displayName="Creatinine" /> <statusCode code="completed" /> <effectiveTime value="999013200707" /> <value unit="mg/dL" xsi: type="PQ" value="0.93" /> <referenceRange> <observationRange > <text>0.64-1.27</text> </observationRange> </ referenceRange> </observation> </component> <component> <observation moodCode="EVN" classCode="OBS"> <templateId root= "2.16.840.1.044854...4.2" /> <id nullFlavor="NA" /> < code codeSystem="local" code="GLOB" displayName="Globulin" /> < statusCode code="completed" /> <effectiveTime value="175165182673" /> <value unit="g/dL" xsi:type="PQ" value="3.3" /> < referenceRange> <observationRange> <text>1.9-4.3</text> </observationRange> </referenceRange> </observation > </component> <component> <observation moodCode="EVN" classCode="OBS"> <templateId root="2.16.840.1.999495.10...4.2" /> <id nullFlavor="NA" /> <code codeSystem="local" code="GLU" displayName="Glucose" /> <statusCode code="completed" /> < effectiveTime value="081719763182" /> <value unit="mg/dL" xsi:type="PQ " value="86" /> <referenceRange> <observationRange> <text>70-100</text> </observationRange> </ referenceRange> </observation> </component> <component> <observation moodCode="EVN" classCode="OBS"> <templateId root= "10.29.840.1.580154.10..22.4.2" /> <id nullFlavor="NA" /> < code codeSystem="local" code="K" displayName="Potassium" /> < statusCode code="completed" /> <effectiveTime value="506360271675" /> <value unit="mEq/L" xsi:type="PQ" value="3.5" /> < interpretationCode codeSystem="local" code="*" /> <referenceRange> <observationRange> <text>3.6-5.1</text> </ observationRange> </referenceRange> </observation> </ component> <component> <observation moodCode="EVN" classCode="OBS"> <templateId root="10.29.840.1.488738.07.02.22.4.2" /> <id nullFlavor="NA" /> <code codeSystem="local" code="TP" displayName= "Protein" /> <statusCode code="completed" /> <effectiveTime value="809982677395" /> <value unit="g/dL" xsi:type="PQ" value="6.9" / > <referenceRange> <observationRange> <text>6.1 -7.9</text> </observationRange> </referenceRange> </ observation> </component> <component> <observation moodCode= "EVN" classCode="OBS"> <templateId root="840.1.845235.10..22.4.2 " /> <id nullFlavor="NA" /> <code codeSystem="local" code="NA " displayName="Sodium" /> <statusCode code="completed" /> < effectiveTime value="062713473309" /> <value unit="mEq/L" xsi:type="PQ " value="139" /> <referenceRange> <observationRange> <text>136-144</text> </observationRange> </ referenceRange> </observation> </component> </organizer> </entry > <entry> <organizer moodCode="EVN" classCode="BATTERY"> <templateId root="10.29.840.1.231418.07.02.22.4.1" /> <id nullFlavor="NA" /> <code codeSystem="local" code="GFR" displayName="eGFR" /> <statusCode code= "completed" /> <component> <observation moodCode="EVN" classCode= "OBS"> <templateId root="840.1.547793.07.02.22.4.2" /> < id nullFlavor="NA" /> <code codeSystem="local" code="GFR" displayName= "eGFR" /> <statusCode code="completed" /> <effectiveTime value ="258855788885" /> <value unit="mL/min" xsi:type="PQ" value=">60" / > <referenceRange> <observationRange> <text>&gt ;60</text> </observationRange> </referenceRange> </ observation> </component> </organizer> </entry> <entry> <organizer moodCode="EVN" classCode="BATTERY"> <templateId root= "840.1.185327.07.02.22.4.1" /> <id nullFlavor="NA" /> <code codeSystem="local" code="CBCWD" displayName="CBC With Platelet and Differential " /> <statusCode code="completed" /> <component> <observation moodCode="EVN" classCode="OBS"> <templateId root= "840.1.443811.07.02.22.4.2" /> <id nullFlavor="NA" /> < code codeSystem="local" code="ABASR" displayName="Absolute Basophils" /> <statusCode code="completed" /> <effectiveTime value="" /> <value unit="10*3/uL" xsi:type="PQ" value="0.03" /> < referenceRange> <observationRange> <text>0.00-0.20</text > </observationRange> </referenceRange> </observation > </component> <component> <observation moodCode="EVN" classCode="OBS"> <templateId root="2.16.840.1.771790.10...4.2" /> <id nullFlavor="NA" /> <code codeSystem="local" code="AEOSR" displayName="Absolute Eosinophils" /> <statusCode code="completed" /> <effectiveTime value="" /> <value unit="10/uL" xsi:type="PQ" value="0.78" /> <interpretationCode codeSystem="local" code="*" /> <referenceRange> <observationRange> <text>0.00-0.50</text> </observationRange> </ referenceRange> </observation> </component> <component> <observation moodCode="EVN" classCode="OBS"> <templateId root= "216.840.1.106557...22.4.2" /> <id nullFlavor="NA" /> < code codeSystem="local" code="ALYMR" displayName="Absolute Lymphocytes" /> <statusCode code="completed" /> <effectiveTime value=" " /> <value unit="10*3/uL" xsi:type="PQ" value="1.84" /> < referenceRange> <observationRange> <text>0.80-3.30</text > </observationRange> </referenceRange> </observation > </component> <component> <observation moodCode="EVN" classCode="OBS"> <templateId root="16.840.1.380229.10.22.4.2" /> <id nullFlavor="NA" /> <code codeSystem="local" code="AMONR" displayName="Absolute Monocytes" /> <statusCode code="completed" /> <effectiveTime value="" /> <value unit="10*3/uL" xsi :type="PQ" value="0.78" /> <referenceRange> < observationRange> <text>0.30-1.00</text> </ observationRange> </referenceRange> </observation> </ component> <component> <observation moodCode="EVN" classCode="OBS"> <templateId root="10.29.840.1.772478.07.02.22.4.2" /> <id nullFlavor="NA" /> <code codeSystem="local" code="ASEGR" displayName= "Absolute Neutrophils" /> <statusCode code="completed" /> < effectiveTime value="" /> <value unit="10*3/uL" xsi:type= "PQ" value="2.60" /> <referenceRange> <observationRange> <text>1.90-7.00</text> </observationRange> </ referenceRange> </observation> </component> <component> <observation moodCode="EVN" classCode="OBS"> <templateId root= "10.29.840.1.860803.10.22.4.2" /> <id nullFlavor="NA" /> < code codeSystem="local" code="BASOR" displayName="Basophils" /> < statusCode code="completed" /> <effectiveTime value="" /> <value unit="%" xsi:type="PQ" value="1" /> <referenceRange > <observationRange> <text>0-2</text> </ observationRange> </referenceRange> </observation> </ component> <component> <observation moodCode="EVN" classCode="OBS"> <templateId root="10.29.840.1.418269.10.20.22.4.2" /> <id nullFlavor="NA" /> <code codeSystem="local" code="EOSR" displayName= "Eosinophils" /> <statusCode code="completed" /> < effectiveTime value="[id number]" /> <value unit="%" xsi:type="PQ " value="13" /> <interpretationCode codeSystem="local" code="*" /> <referenceRange> <observationRange> <text>0-4</ text> </observationRange> </referenceRange> </ observation> </component> <component> <observation moodCode= "EVN" classCode="OBS"> <templateId root="10.29.840.1.087602.10..22.4.2 " /> <id nullFlavor="NA" /> <code codeSystem="local" code="HCT " displayName="HCT" /> <statusCode code="completed" /> < effectiveTime value="[id number]" /> <value unit="%" xsi:type="PQ " value="37.0" /> <interpretationCode codeSystem="local" code="*" /> <referenceRange> <observationRange> <text>42.0- 52.0</text> </observationRange> </referenceRange> </ observation> </component> <component> <observation moodCode= "EVN" classCode="OBS"> <templateId root="10.29.840.1.724427.10.20.22.4.2 " /> <id nullFlavor="NA" /> <code codeSystem="local" code="HGB " displayName="HGB" /> <statusCode code="completed" /> < effectiveTime value="" /> <value unit="g/dL" xsi:type="PQ" value="12.2" /> <interpretationCode codeSystem="local" code="*" /> <referenceRange> <observationRange> <text>14.0- 18.0</text> </observationRange> </referenceRange> </ observation> </component> <component> <observation moodCode= "EVN" classCode="OBS"> <templateId root="2.16.840.1.939321....4.2 " /> <id nullFlavor="NA" /> <code codeSystem="local" code= "IMGA" displayName="Immature Granulocytes" /> <statusCode code= "completed" /> <effectiveTime value="" /> <value unit="%" xsi:type="PQ" value="0.5" /> <referenceRange> < observationRange> <text>0.0-1.0</text> </ observationRange> </referenceRange> </observation> </ component> <component> <observation moodCode="EVN" classCode="OBS"> <templateId root="2.16.840.1.978739....4.2" /> <id nullFlavor="NA" /> <code codeSystem="local" code="LYMPR" displayName= "Lymphocytes" /> <statusCode code="completed" /> < effectiveTime value="" /> <value unit="%" xsi:type="PQ " value="30" /> <referenceRange> <observationRange> <text>20-46</text> </observationRange> </ referenceRange> </observation> </component> <component> <observation moodCode="EVN" classCode="OBS"> <templateId root= "16.840.1.927528.10.20.22.4.2" /> <id nullFlavor="NA" /> < code codeSystem="local" code="MCH" displayName="MCH" /> <statusCode code="completed" /> <effectiveTime value="" /> < value unit="pg" xsi:type="PQ" value="29.8" /> <referenceRange> <observationRange> <text>27.0-32.0</text> </ observationRange> </referenceRange> </observation> </ component> <component> <observation moodCode="EVN" classCode="OBS"> <templateId root="10.29.840.1.148926.10.20.22.4.2" /> <id nullFlavor="NA" /> <code codeSystem="local" code="MCHC" displayName= "MCHC" /> <statusCode code="completed" /> <effectiveTime value ="" /> <value unit="g/dL" xsi:type="PQ" value="33.0" /> <referenceRange> <observationRange> <text>32.0- 36.0</text> </observationRange> </referenceRange> </ observation> </component> <component> <observation moodCode= "EVN" classCode="OBS"> <templateId root="10.29.840.1.732063.10.20.22.4.2 " /> <id nullFlavor="NA" /> <code codeSystem="local" code="MCV " displayName="MCV" /> <statusCode code="completed" /> < effectiveTime value="" /> <value unit="fL" xsi:type="PQ" value="90.2" /> <referenceRange> <observationRange> <text>82.0-99.0</text> </observationRange> </ referenceRange> </observation> </component> <component> <observation moodCode="EVN" classCode="OBS"> <templateId root= "216.840.1.841220.10.2022.4.2" /> <id nullFlavor="NA" /> < code codeSystem="local" code="MONOR" displayName="Monocytes" /> < statusCode code="completed" /> <effectiveTime value="" /> <value unit="%" xsi:type="PQ" value="13" /> < interpretationCode codeSystem="local" code="*" /> <referenceRange> <observationRange> <text>4-11</text> </ observationRange> </referenceRange> </observation> </ component> <component> <observation moodCode="EVN" classCode="OBS"> <templateId root="10.29.840.1.745649.10.4.2" /> <id nullFlavor="NA" /> <code codeSystem="local" code="MPV" displayName="MPV " /> <statusCode code="completed" /> <effectiveTime value= "" /> <value unit="fL" xsi:type="PQ" value="10.6" /> <referenceRange> <observationRange> <text>9.4-12.3</ text> </observationRange> </referenceRange> </ observation> </component> <component> <observation moodCode= "EVN" classCode="OBS"> <templateId root="10.29.840.1.228939.1022.4.2 " /> <id nullFlavor="NA" /> <code codeSystem="local" code= "SEGR" displayName="Neutrophils" /> <statusCode code="completed" /> <effectiveTime value="" /> <value unit="%" xsi: type="PQ" value="43" /> <interpretationCode codeSystem="local" code="* " /> <referenceRange> <observationRange> <text> 51-75</text> </observationRange> </referenceRange> </ observation> </component> <component> <observation moodCode= "EVN" classCode="OBS"> <templateId root="16.840.1.692186.1022.4.2 " /> <id nullFlavor="NA" /> <code codeSystem="local" code= "NRBCA" displayName="Nucleated RBC Automated" /> <statusCode code= "completed" /> <effectiveTime value="" /> <value unit="/100WBC" xsi:type="PQ" value="0.0" /> <referenceRange> <observationRange> <text /> </observationRange> </referenceRange> </observation> </component> <component> <observation moodCode="EVN" classCode="OBS"> <templateId root= "840.1.289655.1022.4.2" /> <id nullFlavor="NA" /> < code codeSystem="local" code="PLT" displayName="Platelet Count" /> < statusCode code="completed" /> <effectiveTime value="" /> <value unit="K/uL" xsi:type="PQ" value="156" /> < referenceRange> <observationRange> <text>150-400</text> </observationRange> </referenceRange> </observation > </component> <component> <observation moodCode="EVN" classCode="OBS"> <templateId root="10.29.840.1.258646.10.22.4.2" /> <id nullFlavor="NA" /> <code codeSystem="local" code="RBC" displayName="RBC" /> <statusCode code="completed" /> < effectiveTime value="" /> <value unit="10*6/uL" xsi:type= "PQ" value="4.10" /> <interpretationCode codeSystem="local" code="*" / > <referenceRange> <observationRange> <text> 4.60-6.20</text> </observationRange> </referenceRange> </observation> </component> <component> <observation moodCode="EVN" classCode="OBS"> <templateId root= "2.16.840.1.043685....4.2" /> <id nullFlavor="NA" /> < code codeSystem="local" code="RDW" displayName="RDW" /> <statusCode code="completed" /> <effectiveTime value="" /> < value unit="%" xsi:type="PQ" value="14.4" /> <referenceRange> <observationRange> <text>11.5-14.5</text> </ observationRange> </referenceRange> </observation> </ component> <component> <observation moodCode="EVN" classCode="OBS"> <templateId root="2.16.840.1.366135....4.2" /> <id nullFlavor="NA" /> <code codeSystem="local" code="WBCIR" displayName= "WBC" /> <statusCode code="completed" /> <effectiveTime value= "" /> <value unit="K/uL" xsi:type="PQ" value="6.1" /> <referenceRange> <observationRange> <text>4.8-10.8< /text> </observationRange> </referenceRange> </ observation> </component> </organizer> </entry> <entry> <organizer moodCode="EVN" classCode="BATTERY"> <templateId root= "16.840.1.715902.10..22.4.1" /> <id nullFlavor="NA" /> <code codeSystem="local" code="CMP" displayName="Comprehensive Metabolic Panel (CMP)" /> <statusCode code="completed" /> <component> <observation moodCode="EVN" classCode="OBS"> <templateId root= "16.840.1.049512.10..22.4.2" /> <id nullFlavor="NA" /> < code codeSystem="local" code="ALB" displayName="Albumin" /> < statusCode code="completed" /> <effectiveTime value="191752617849" /> <value unit="g/dL" xsi:type="PQ" value="3.4" /> < interpretationCode codeSystem="local" code="*" /> <referenceRange> <observationRange> <text>3.5-4.8</text> </ observationRange> </referenceRange> </observation> </ component> <component> <observation moodCode="EVN" classCode="OBS"> <templateId root="16.840.1.443085.10..22.4.2" /> <id nullFlavor="NA" /> <code codeSystem="local" code="ALP" displayName= "Alkaline Phosphatase" /> <statusCode code="completed" /> < effectiveTime value="837357824866" /> <value unit="U/L" xsi:type="PQ" value="72" /> <referenceRange> <observationRange> <text>26-104</text> </observationRange> </referenceRange > </observation> </component> <component> <observation moodCode="EVN" classCode="OBS"> <templateId root= "216.840.1.459999.10..22.4.2" /> <id nullFlavor="NA" /> < code codeSystem="local" code="ALT" displayName="ALT (SGPT)" /> < statusCode code="completed" /> <effectiveTime value="773811350774" /> <value unit="U/L" xsi:type="PQ" value="37" /> <referenceRange > <observationRange> <text>17-63</text> </ observationRange> </referenceRange> </observation> </ component> <component> <observation moodCode="EVN" classCode="OBS"> <templateId root="216.840.1.948576.10..4.2" /> <id nullFlavor="NA" /> <code codeSystem="local" code="AGAP" displayName= "Anion Gap" /> <statusCode code="completed" /> <effectiveTime value="918844441062" /> <value unit="mEq/L" xsi:type="PQ" value="6" /> <referenceRange> <observationRange> <text>3-20 </text> </observationRange> </referenceRange> </ observation> </component> <component> <observation moodCode= "EVN" classCode="OBS"> <templateId root="16.840.1.364823.10..4.2 " /> <id nullFlavor="NA" /> <code codeSystem="local" code="AST " displayName="AST (SGOT)" /> <statusCode code="completed" /> <effectiveTime value="000830620093" /> <value unit="U/L" xsi:type="PQ" value="39" /> <referenceRange> <observationRange> <text>15-41</text> </observationRange> </referenceRange > </observation> </component> <component> <observation moodCode="EVN" classCode="OBS"> <templateId root= "216.840.1.534061...4.2" /> <id nullFlavor="NA" /> < code codeSystem="local" code="BILIT" displayName="Bilirubin Total" /> < statusCode code="completed" /> <effectiveTime value="383473220648" /> <value unit="mg/dL" xsi:type="PQ" value="0.7" /> < referenceRange> <observationRange> <text>0.2-1.2</text> </observationRange> </referenceRange> </observation > </component> <component> <observation moodCode="EVN" classCode="OBS"> <templateId root="16.840.1.475342.07.02.22.4.2" /> <id nullFlavor="NA" /> <code codeSystem="local" code="BUN" displayName="BUN" /> <statusCode code="completed" /> < effectiveTime value="" /> <value unit="mg/dL" xsi:type="PQ " value="14" /> <referenceRange> <observationRange> <text>4-20</text> </observationRange> </referenceRange > </observation> </component> <component> <observation moodCode="EVN" classCode="OBS"> <templateId root= "16.840.1.554674...4.2" /> <id nullFlavor="NA" /> < code codeSystem="local" code="CA" displayName="Calcium" /> <statusCode code="completed" /> <effectiveTime value="653012665310" /> < value unit="mg/dL" xsi:type="PQ" value="8.6" /> <referenceRange> <observationRange> <text>8.6-10.0</text> </ observationRange> </referenceRange> </observation> </ component> <component> <observation moodCode="EVN" classCode="OBS"> <templateId root="216.840.1.301824.10...4.2" /> <id nullFlavor="NA" /> <code codeSystem="local" code="CL" displayName= "Chloride" /> <statusCode code="completed" /> <effectiveTime value="" /> <value unit="mEq/L" xsi:type="PQ" value="103" / > <referenceRange> <observationRange> <text>99- 109</text> </observationRange> </referenceRange> </ observation> </component> <component> <observation moodCode= "EVN" classCode="OBS"> <templateId root="10.29.840.1.781353.10..4.2 " /> <id nullFlavor="NA" /> <code codeSystem="local" code="CO2 " displayName="CO2" /> <statusCode code="completed" /> < effectiveTime value="" /> <value unit="mEq/L" xsi:type="PQ " value="24" /> <referenceRange> <observationRange> <text>22-32</text> </observationRange> </ referenceRange> </observation> </component> <component> <observation moodCode="EVN" classCode="OBS"> <templateId root= "10.29.840.1.842484.10.22.4.2" /> <id nullFlavor="NA" /> < code codeSystem="local" code="CREAT" displayName="Creatinine" /> < statusCode code="completed" /> <effectiveTime value="413641470863" /> <value unit="mg/dL" xsi:type="PQ" value="1.20" /> < referenceRange> <observationRange> <text>0.64-1.27</text > </observationRange> </referenceRange> </observation > </component> <component> <observation moodCode="EVN" classCode="OBS"> <templateId root="216.840.1.265696.10..22.4.2" /> <id nullFlavor="NA" /> <code codeSystem="local" code="GLOB" displayName="Globulin" /> <statusCode code="completed" /> < effectiveTime value="989256459551" /> <value unit="g/dL" xsi:type="PQ" value="3.3" /> <referenceRange> <observationRange> <text>1.9-4.3</text> </observationRange> </ referenceRange> </observation> </component> <component> <observation moodCode="EVN" classCode="OBS"> <templateId root= "16.840.1.725961.10...4.2" /> <id nullFlavor="NA" /> < code codeSystem="local" code="GLU" displayName="Glucose" /> < statusCode code="completed" /> <effectiveTime value="326237757429" /> <value unit="mg/dL" xsi:type="PQ" value="114" /> < interpretationCode codeSystem="local" code="*" /> <referenceRange> <observationRange> <text>70-100</text> </ observationRange> </referenceRange> </observation> </ component> <component> <observation moodCode="EVN" classCode="OBS"> <templateId root="16.840.1.145017.10..22.4.2" /> <id nullFlavor="NA" /> <code codeSystem="local" code="K" displayName= "Potassium" /> <statusCode code="completed" /> <effectiveTime value="268702274959" /> <value unit="mEq/L" xsi:type="PQ" value="4.1" / > <referenceRange> <observationRange> <text>3.6 -5.1</text> </observationRange> </referenceRange> </ observation> </component> <component> <observation moodCode= "EVN" classCode="OBS"> <templateId root="2.16.840.1.912897.10..22.4.2 " /> <id nullFlavor="NA" /> <code codeSystem="local" code="TP " displayName="Protein" /> <statusCode code="completed" /> < effectiveTime value="974457322765" /> <value unit="g/dL" xsi:type="PQ" value="6.7" /> <referenceRange> <observationRange> <text>6.1-7.9</text> </observationRange> </ referenceRange> </observation> </component> <component> <observation moodCode="EVN" classCode="OBS"> <templateId root= "2.16.840.1.294398.10..22.4.2" /> <id nullFlavor="NA" /> < code codeSystem="local" code="NA" displayName="Sodium" /> <statusCode code="completed" /> <effectiveTime value="588351074482" /> < value unit="mEq/L" xsi:type="PQ" value="133" /> <interpretationCode codeSystem="local" code="*" /> <referenceRange> < observationRange> <text>136-144</text> </ observationRange> </referenceRange> </observation> </ component> </organizer> </entry> <entry> <organizer moodCode="EVN" classCode="BATTERY"> <templateId root="10.29.840.1.969280.10.4.1" /> <id nullFlavor="NA" /> <code codeSystem="local" code="GFR" displayName ="eGFR" /> <statusCode code="completed" /> <component> < observation moodCode="EVN" classCode="OBS"> <templateId root= "840.1.082214.07.02.22.4.2" /> <id nullFlavor="NA" /> < code codeSystem="local" code="GFR" displayName="eGFR" /> <statusCode code="completed" /> <effectiveTime value="826398465634" /> < value unit="mL/min" xsi:type="PQ" value=">60" /> <referenceRange> <observationRange> <text>>60</text> </ observationRange> </referenceRange> </observation> </ component> </organizer> </entry> <entry> <organizer moodCode="EVN" classCode="BATTERY"> <templateId root="840.1.852294.07.02.22.4.1" /> <id nullFlavor="NA" /> <code codeSystem="local" code="ALC" displayName ="Alcohol, Blood" /> <statusCode code="completed" /> <component> <observation moodCode="EVN" classCode="OBS"> <templateId root= "840.1.281619.07.02.22.4.2" /> <id nullFlavor="NA" /> < code codeSystem="local" code="ALC" displayName="Alcohol, Blood" /> < statusCode code="completed" /> <effectiveTime value="666683054542" /> <value unit="mg/dL" xsi:type="PQ" value="Not Detected" /> < referenceRange> <observationRange> <text /> < /observationRange> </referenceRange> </observation> </ component> </organizer> </entry> <entry> <organizer moodCode="EVN" classCode="BATTERY"> <templateId root="10.29.840.1.846719.10..22.4.1" /> <id nullFlavor="NA" /> <code codeSystem="local" code="VCHMN" displayName="Chem 8 NPT" /> <statusCode code="completed" /> <component > <observation moodCode="EVN" classCode="OBS"> <templateId root= "10.29.840.1.758980.10..22.4.2" /> <id nullFlavor="NA" /> < code codeSystem="local" code="VAGAP" displayName="Anion Gap" /> < statusCode code="completed" /> <effectiveTime value="527612241250" /> <value unit="mEq/L" xsi:type="PQ" value="10" /> < referenceRange> <observationRange> <text>3-20</text> </observationRange> </referenceRange> </observation> </component> <component> <observation moodCode="EVN" classCode= "OBS"> <templateId root="10.29.840.1.697554.10..22.4.2" /> < id nullFlavor="NA" /> <code codeSystem="local" code="VBUNN" displayName ="BUN Venous" /> <statusCode code="completed" /> < effectiveTime value="557265772592" /> <value unit="mg/dl" xsi:type="PQ " value="17" /> <referenceRange> <observationRange> <text>4-20</text> </observationRange> </referenceRange > </observation> </component> <component> <observation moodCode="EVN" classCode="OBS"> <templateId root= "216.840.1.350721.10.22.4.2" /> <id nullFlavor="NA" /> < code codeSystem="local" code="VCANN" displayName="Calcium Ionized Venous" /> <statusCode code="completed" /> <effectiveTime value= "197182031985" /> <value unit="mmol/L" xsi:type="PQ" value="1.11" /> <interpretationCode codeSystem="local" code="*" /> < referenceRange> <observationRange> <text>1.19-1.41</text > </observationRange> </referenceRange> </observation > </component> <component> <observation moodCode="EVN" classCode="OBS"> <templateId root="16.840.1.301451.07.02.22.4.2" /> <id nullFlavor="NA" /> <code codeSystem="local" code="VCREN" displayName="Creatinine Venous" /> <statusCode code="completed" /> <effectiveTime value="582896865139" /> <value unit="mg/dL" xsi: type="PQ" value="1.2" /> <referenceRange> <observationRange > <text>0.7-1.2</text> </observationRange> </ referenceRange> </observation> </component> <component> <observation moodCode="EVN" classCode="OBS"> <templateId root= "216.840.1.205524.1022.4.2" /> <id nullFlavor="NA" /> < code codeSystem="local" code="VGLNN" displayName="Glucose Venous" /> < statusCode code="completed" /> <effectiveTime value="570874829006" /> <value unit="mg/dL" xsi:type="PQ" value="107" /> < interpretationCode codeSystem="local" code="*" /> <referenceRange> <observationRange> <text>70-100</text> </ observationRange> </referenceRange> </observation> </ component> <component> <observation moodCode="EVN" classCode="OBS"> <templateId root="10.29.840.1.660701.22.4.2" /> <id nullFlavor="NA" /> <code codeSystem="local" code="VKNN" displayName= "Potassium, WB" /> <statusCode code="completed" /> < effectiveTime value="705124647329" /> <value unit="mEq/L" xsi:type="PQ " value="4.2" /> <referenceRange> <observationRange> <text>3.6-5.1</text> </observationRange> </ referenceRange> </observation> </component> <component> <observation moodCode="EVN" classCode="OBS"> <templateId root= "840.1.932598.07.02.22.4.2" /> <id nullFlavor="NA" /> < code codeSystem="local" code="VNANN" displayName="Sodium Venous" /> < statusCode code="completed" /> <effectiveTime value="830834308954" /> <value unit="mEq/L" xsi:type="PQ" value="136" /> < referenceRange> <observationRange> <text>136-144</text> </observationRange> </referenceRange> </observation > </component> <component> <observation moodCode="EVN" classCode="OBS"> <templateId root="10.29.840.1.969258..22.4.2" /> <id nullFlavor="NA" /> <code codeSystem="local" code="VTCNN" displayName="Total CO2 Venous" /> <statusCode code="completed" /> <effectiveTime value="823996974232" /> <value unit="mEq/L" xsi: type="PQ" value="24" /> <interpretationCode codeSystem="local" code="* " /> <referenceRange> <observationRange> <text> 25-29</text> </observationRange> </referenceRange> </ observation> </component> <component> <observation moodCode= "EVN" classCode="OBS"> <templateId root="2.16.840.1.624856.10..4.2 " /> <id nullFlavor="NA" /> <code codeSystem="local" code= "VCLN" displayName="Venous CL" /> <statusCode code="completed" /> <effectiveTime value="406697878208" /> <value unit="mEq/L" xsi: type="PQ" value="102" /> <referenceRange> <observationRange > <text>99-109</text> </observationRange> </ referenceRange> </observation> </component> <component> <observation moodCode="EVN" classCode="OBS"> <templateId root= "2.16.840.1.405246.10..22.4.2" /> <id nullFlavor="NA" /> < code codeSystem="local" code="VHCNN" displayName="HCT Venous" /> < statusCode code="completed" /> <effectiveTime value="421031421676" /> <value unit="%" xsi:type="PQ" value="38.0" /> < interpretationCode codeSystem="local" code="*" /> <referenceRange> <observationRange> <text>42.0-52.0</text> </ observationRange> </referenceRange> </observation> </ component> <component> <observation moodCode="EVN" classCode="OBS"> <templateId root="216.840.1.627268.10.22.4.2" /> <id nullFlavor="NA" /> <code codeSystem="local" code="VHGNN" displayName= "HGB Venous NPT" /> <statusCode code="completed" /> < effectiveTime value="873159285903" /> <value unit="g/dL" xsi:type="PQ" value="12.9" /> <interpretationCode codeSystem="local" code="*" /> <referenceRange> <observationRange> <text>14.0- 16.0</text> </observationRange> </referenceRange> </ observation> </component> </organizer> </entry> <entry> <organizer moodCode="EVN" classCode="BATTERY"> <templateId root= "216.840.1.157492.10..22.4.1" /> <id nullFlavor="NA" /> <code codeSystem="local" code="LACTN" displayName="Lactic Acid NPT" /> < statusCode code="completed" /> <component> <observation moodCode= "EVN" classCode="OBS"> <templateId root="16.840.1.012142.10..22.4.2 " /> <id nullFlavor="NA" /> <code codeSystem="local" code= "LACTN" displayName="Lactic Acid NPT" /> <statusCode code="completed" / > <effectiveTime value="180600428461" /> <value unit="mEq/L" xsi:type="PQ" value="1.5" /> <referenceRange> < observationRange> <text>0.5-2.0</text> </ observationRange> </referenceRange> </observation> </ component> </organizer> </entry> <entry> <organizer moodCode="EVN" classCode="BATTERY"> <templateId root="16.840.1.514108.07.02.22.4.1" /> <id nullFlavor="NA" /> <code codeSystem="local" code="TROP" displayName="Troponin" /> <statusCode code="completed" /> <component> <observation moodCode="EVN" classCode="OBS"> <templateId root= "840.1.146053.07.02.22.4.2" /> <id nullFlavor="NA" /> < code codeSystem="local" code="TROP" displayName="Troponin" /> < statusCode code="completed" /> <effectiveTime value="648706453081" /> <value unit="ng/mL" xsi:type="PQ" value="<0.05" /> < referenceRange> <observationRange> <text><0.06</text > </observationRange> </referenceRange> </observation > </component> </organizer> </entry> <entry> <organizer moodCode= "EVN" classCode="BATTERY"> <templateId root="10.29.840.1.493611.07.02.22.4.1 " /> <id nullFlavor="NA" /> <code codeSystem="local" code="UA" displayName="Urinalysis with reflex microscopic" /> <statusCode code= "completed" /> <component> <observation moodCode="EVN" classCode= "OBS"> <templateId root="10.29.840.1.771967.07.02.22.4.2" /> < id nullFlavor="NA" /> <code codeSystem="local" code="UAPP" displayName= "Appearance" /> <statusCode code="completed" /> < effectiveTime value="296523799150" /> <value unit="NA" xsi:type="PQ" value="Cloudy" /> <interpretationCode codeSystem="local" code="*" /> <referenceRange> <observationRange> <text /> </observationRange> </referenceRange> </observation> </component> <component> <observation moodCode="EVN" classCode= "OBS"> <templateId root="16.840.1.461727.10..4.2" /> < id nullFlavor="NA" /> <code codeSystem="local" code="UBIL" displayName= "Bilirubin" /> <statusCode code="completed" /> <effectiveTime value="453596359525" /> <value unit="NA" xsi:type="PQ" value="Negative " /> <referenceRange> <observationRange> <text> Negative</text> </observationRange> </referenceRange> </observation> </component> <component> <observation moodCode ="EVN" classCode="OBS"> <templateId root= "10.29.840.1.988877.07.02.22.4.2" /> <id nullFlavor="NA" /> < code codeSystem="local" code="UBLD" displayName="Blood" /> <statusCode code="completed" /> <effectiveTime value="912080541967" /> < value unit="NA" xsi:type="PQ" value="Negative" /> <referenceRange> <observationRange> <text>Negative</text> </ observationRange> </referenceRange> </observation> </ component> <component> <observation moodCode="EVN" classCode="OBS"> <templateId root="10.29.840.1.333493.07.02.22.4.2" /> <id nullFlavor="NA" /> <code codeSystem="local" code="UCOLR" displayName= "Color" /> <statusCode code="completed" /> <effectiveTime value="347250190018" /> <value unit="NA" xsi:type="PQ" value="Leonila" / > <interpretationCode codeSystem="local" code="*" /> < referenceRange> <observationRange> <text /> < /observationRange> </referenceRange> </observation> </ component> <component> <observation moodCode="EVN" classCode="OBS"> <templateId root="2.16.840.1.159568.10..22.4.2" /> <id nullFlavor="NA" /> <code codeSystem="local" code="UGLU" displayName= "Glucose, Urine" /> <statusCode code="completed" /> < effectiveTime value="633766454663" /> <value unit="" xsi:type="PQ" value="Pos 1+" /> <interpretationCode codeSystem="local" code="*" /> <referenceRange> <observationRange> <text> Negative</text> </observationRange> </referenceRange> </observation> </component> <component> <observation moodCode ="EVN" classCode="OBS"> <templateId root= "2.16.840.1.411738.10..22.4.2" /> <id nullFlavor="NA" /> < code codeSystem="local" code="UKET" displayName="Ketones" /> < statusCode code="completed" /> <effectiveTime value="426625863967" /> <value unit="" xsi:type="PQ" value="Trace" /> < interpretationCode codeSystem="local" code="*" /> <referenceRange> <observationRange> <text>Negative</text> </ observationRange> </referenceRange> </observation> </ component> <component> <observation moodCode="EVN" classCode="OBS"> <templateId root="16.840.1.045495.10..4.2" /> <id nullFlavor="NA" /> <code codeSystem="local" code="ULEU" displayName= "Leukocyte Esterase" /> <statusCode code="completed" /> < effectiveTime value="" /> <value unit="NA" xsi:type="PQ" value="Negative" /> <referenceRange> <observationRange> <text>Negative</text> </observationRange> </ referenceRange> </observation> </component> <component> <observation moodCode="EVN" classCode="OBS"> <templateId root= "16.840.1.217409...4.2" /> <id nullFlavor="NA" /> < code codeSystem="local" code="UNIT" displayName="Nitrites" /> < statusCode code="completed" /> <effectiveTime value="324847433301" /> <value unit="NA" xsi:type="PQ" value="Negative" /> < referenceRange> <observationRange> <text>Negative</text > </observationRange> </referenceRange> </observation > </component> <component> <observation moodCode="EVN" classCode="OBS"> <templateId root="10.29.840.1.501194....4.2" /> <id nullFlavor="NA" /> <code codeSystem="local" code="UPH" displayName="pH" /> <statusCode code="completed" /> < effectiveTime value="430024548012" /> <value unit="NA" xsi:type="PQ" value="5.0" /> <referenceRange> <observationRange> <text>5.0-8.0</text> </observationRange> </ referenceRange> </observation> </component> <component> <observation moodCode="EVN" classCode="OBS"> <templateId root= "216.840.1.894001.10.4.2" /> <id nullFlavor="NA" /> < code codeSystem="local" code="UPRO" displayName="Protein" /> < statusCode code="completed" /> <effectiveTime value="086833854317" /> <value unit="NA" xsi:type="PQ" value="Pos 2+" /> < interpretationCode codeSystem="local" code="*" /> <referenceRange> <observationRange> <text>Negative</text> </ observationRange> </referenceRange> </observation> </ component> <component> <observation moodCode="EVN" classCode="OBS"> <templateId root="10.29.840.1.198329.07.02.224.2" /> <id nullFlavor="NA" /> <code codeSystem="local" code="USPG" displayName= "Specific [place]" /> <statusCode code="completed" /> < effectiveTime value="326921492535" /> <value unit="NA" xsi:type="PQ" value="1.020" /> <referenceRange> <observationRange> <text>1.003-1.030</text> </observationRange> </ referenceRange> </observation> </component> <component> <observation moodCode="EVN" classCode="OBS"> <templateId root= "10.29.840.1.060083.07.02.22.4.2" /> <id nullFlavor="NA" /> < code codeSystem="local" code="UTYP" displayName="UA Collection type" /> <statusCode code="completed" /> <effectiveTime value="286253560854" / > <value unit="NA" xsi:type="PQ" value="Voided" /> < referenceRange> <observationRange> <text /> < /observationRange> </referenceRange> </observation> </ component> <component> <observation moodCode="EVN" classCode="OBS"> <templateId root="10.29.840.1.037992.07.02.22.4.2" /> <id nullFlavor="NA" /> <code codeSystem="local" code="UURO" displayName= "Urobilinogen" /> <statusCode code="completed" /> < effectiveTime value="728602347308" /> <value unit="mg/dL" xsi:type="PQ " value="4.0" /> <referenceRange> <observationRange> <text><1.0</text> </observationRange> </ referenceRange> </observation> </component> </organizer> </entry > <entry> <organizer moodCode="EVN" classCode="BATTERY"> <templateId root="840.1.183125.07.02.22.4.1" /> <id nullFlavor="NA" /> <code codeSystem="local" code="UMIC" displayName="Urine Microscopic" /> < statusCode code="completed" /> <component> <observation moodCode= "EVN" classCode="OBS"> <templateId root="10.29.840.1.518251.07.02.22.4.2 " /> <id nullFlavor="NA" /> <code codeSystem="local" code= "UBAC" displayName="Bacteria" /> <statusCode code="completed" /> <effectiveTime value="352236537085" /> <value unit="NA" xsi:type= "PQ" value="Moderate" /> <interpretationCode codeSystem="local" code="* " /> <referenceRange> <observationRange> <text /> </observationRange> </referenceRange> </ observation> </component> <component> <observation moodCode= "EVN" classCode="OBS"> <templateId root="10.29.840.1.243018.10.4.2 " /> <id nullFlavor="NA" /> <code codeSystem="local" code= "UCRY1" displayName="Crystals" /> <statusCode code="completed" /> <effectiveTime value="356795678070" /> <value unit="NA" xsi:type= "PQ" value="Amorphous" /> <referenceRange> <observationRange > <text /> </observationRange> </referenceRange > </observation> </component> <component> <observation moodCode="EVN" classCode="OBS"> <templateId root= "840.1.646359.07.02.22.4.2" /> <id nullFlavor="NA" /> < code codeSystem="local" code="UEPI" displayName="Epithelial Cells" /> < statusCode code="completed" /> <effectiveTime value="711846850055" /> <value unit="/HPF" xsi:type="PQ" value="0" /> <referenceRange > <observationRange> <text /> </ observationRange> </referenceRange> </observation> </ component> <component> <observation moodCode="EVN" classCode="OBS"> <templateId root="840.1.057012.07.02.22.4.2" /> <id nullFlavor="NA" /> <code codeSystem="local" code="UHCST" displayName= "Hyaline Casts" /> <statusCode code="completed" /> < effectiveTime value="906750427015" /> <value unit="/LPF" xsi:type="PQ" value=">12" /> <interpretationCode codeSystem="local" code="*" /> <referenceRange> <observationRange> <text>0-3</ text> </observationRange> </referenceRange> </ observation> </component> <component> <observation moodCode= "EVN" classCode="OBS"> <templateId root="10.29.840.1.327120.22.4.2 " /> <id nullFlavor="NA" /> <code codeSystem="local" code= "URBC" displayName="RBC, Urine" /> <statusCode code="completed" /> <effectiveTime value="176122245684" /> <value unit="/HPF" xsi: type="PQ" value="2" /> <referenceRange> <observationRange> <text>0-2</text> </observationRange> </ referenceRange> </observation> </component> <component> <observation moodCode="EVN" classCode="OBS"> <templateId root= "840.1.725785.07.02.22.4.2" /> <id nullFlavor="NA" /> < code codeSystem="local" code="UMUC" displayName="Urine Mucus" /> < statusCode code="completed" /> <effectiveTime value="584236707117" /> <value unit="NA" xsi:type="PQ" value="Present" /> < referenceRange> <observationRange> <text /> < /observationRange> </referenceRange> </observation> </ component> <component> <observation moodCode="EVN" classCode="OBS"> <templateId root="10.29.840.1.664803.07.02.22.4.2" /> <id nullFlavor="NA" /> <code codeSystem="local" code="UWBC" displayName= "WBC, Urine" /> <statusCode code="completed" /> < effectiveTime value="901503715598" /> <value unit="/HPF" xsi:type="PQ" value="5" /> <interpretationCode codeSystem="local" code="*" /> <referenceRange> <observationRange> <text>0-4</text> </observationRange> </referenceRange> </observation > </component> </organizer> </entry> <entry> <organizer moodCode= "EVN" classCode="BATTERY"> <templateId root="216.840.1.599183.10..22.4.1 " /> <id nullFlavor="NA" /> <code codeSystem="local" code="CBCWD" displayName="CBC With Platelet and Differential" /> <statusCode code= "completed" /> <component> <observation moodCode="EVN" classCode= "OBS"> <templateId root="2.16.840.1.853360.10...4.2" /> < id nullFlavor="NA" /> <code codeSystem="local" code="ABASR" displayName ="Absolute Basophils" /> <statusCode code="completed" /> < effectiveTime value="541720297402" /> <value unit="10*3/uL" xsi:type= "PQ" value="0.03" /> <referenceRange> <observationRange> <text>0.00-0.20</text> </observationRange> </ referenceRange> </observation> </component> <component> <observation moodCode="EVN" classCode="OBS"> <templateId root= "216.840.1.009657.10..22.4.2" /> <id nullFlavor="NA" /> < code codeSystem="local" code="AEOSR" displayName="Absolute Eosinophils" /> <statusCode code="completed" /> <effectiveTime value="927877105175 " /> <value unit="10*3/uL" xsi:type="PQ" value="0.70" /> < interpretationCode codeSystem="local" code="*" /> <referenceRange> <observationRange> <text>0.00-0.50</text> </ observationRange> </referenceRange> </observation> </ component> <component> <observation moodCode="EVN" classCode="OBS"> <templateId root="16.840.1.410717.10.20.22.4.2" /> <id nullFlavor="NA" /> <code codeSystem="local" code="ALYMR" displayName= "Absolute Lymphocytes" /> <statusCode code="completed" /> < effectiveTime value="292675805516" /> <value unit="10*3/uL" xsi:type= "PQ" value="2.06" /> <referenceRange> <observationRange> <text>0.80-3.30</text> </observationRange> </ referenceRange> </observation> </component> <component> <observation moodCode="EVN" classCode="OBS"> <templateId root= "10.29.840.1.337869.10.20.22.4.2" /> <id nullFlavor="NA" /> < code codeSystem="local" code="AMONR" displayName="Absolute Monocytes" /> <statusCode code="completed" /> <effectiveTime value="325639192623" /> <value unit="10*3/uL" xsi:type="PQ" value="0.61" /> < referenceRange> <observationRange> <text>0.30-1.00</text > </observationRange> </referenceRange> </observation > </component> <component> <observation moodCode="EVN" classCode="OBS"> <templateId root="2.16.840.1.984707.10.20.22.4.2" /> <id nullFlavor="NA" /> <code codeSystem="local" code="ASEGR" displayName="Absolute Neutrophils" /> <statusCode code="completed" /> <effectiveTime value="164241746903" /> <value unit="10*3/uL" xsi:type="PQ" value="1.32" /> <interpretationCode codeSystem="local" code="*" /> <referenceRange> <observationRange> <text>1.90-7.00</text> </observationRange> </ referenceRange> </observation> </component> <component> <observation moodCode="EVN" classCode="OBS"> <templateId root= "16.840.1.704903.10.22.4.2" /> <id nullFlavor="NA" /> < code codeSystem="local" code="BASOR" displayName="Basophils" /> < statusCode code="completed" /> <effectiveTime value="220228469588" /> <value unit="%" xsi:type="PQ" value="1" /> <referenceRange > <observationRange> <text>0-2</text> </ observationRange> </referenceRange> </observation> </ component> <component> <observation moodCode="EVN" classCode="OBS"> <templateId root="16.840.1.330182.10.20.22.4.2" /> <id nullFlavor="NA" /> <code codeSystem="local" code="EOSR" displayName= "Eosinophils" /> <statusCode code="completed" /> < effectiveTime value="731058321507" /> <value unit="%" xsi:type="PQ " value="15" /> <interpretationCode codeSystem="local" code="*" /> <referenceRange> <observationRange> <text>0-4</ text> </observationRange> </referenceRange> </ observation> </component> <component> <observation moodCode= "EVN" classCode="OBS"> <templateId root="216.840.1.250792.10.20.22.4.2 " /> <id nullFlavor="NA" /> <code codeSystem="local" code="HCT " displayName="HCT" /> <statusCode code="completed" /> < effectiveTime value="506948507425" /> <value unit="%" xsi:type="PQ " value="36.5" /> <interpretationCode codeSystem="local" code="*" /> <referenceRange> <observationRange> <text>42.0- 52.0</text> </observationRange> </referenceRange> </ observation> </component> <component> <observation moodCode= "EVN" classCode="OBS"> <templateId root="10.29.840.1.967109.10...4.2 " /> <id nullFlavor="NA" /> <code codeSystem="local" code="HGB " displayName="HGB" /> <statusCode code="completed" /> < effectiveTime value="638561204798" /> <value unit="g/dL" xsi:type="PQ" value="12.0" /> <interpretationCode codeSystem="local" code="*" /> <referenceRange> <observationRange> <text>14.0- 18.0</text> </observationRange> </referenceRange> </ observation> </component> <component> <observation moodCode= "EVN" classCode="OBS"> <templateId root="16.840.1.437602.10.20.22.4.2 " /> <id nullFlavor="NA" /> <code codeSystem="local" code= "IMGA" displayName="Immature Granulocytes" /> <statusCode code= "completed" /> <effectiveTime value="552584554042" /> <value unit="%" xsi:type="PQ" value="1.0" /> <referenceRange> < observationRange> <text>0.0-1.0</text> </ observationRange> </referenceRange> </observation> </ component> <component> <observation moodCode="EVN" classCode="OBS"> <templateId root="10.29.840.1.373984.10.20.22.4.2" /> <id nullFlavor="NA" /> <code codeSystem="local" code="LYMPR" displayName= "Lymphocytes" /> <statusCode code="completed" /> < effectiveTime value="847738928087" /> <value unit="%" xsi:type="PQ " value="43" /> <referenceRange> <observationRange> <text>20-46</text> </observationRange> </ referenceRange> </observation> </component> <component> <observation moodCode="EVN" classCode="OBS"> <templateId root= "10.29.840.1.397755.10.20.22.4.2" /> <id nullFlavor="NA" /> < code codeSystem="local" code="MCH" displayName="MCH" /> <statusCode code="completed" /> <effectiveTime value="542763883382" /> < value unit="pg" xsi:type="PQ" value="29.9" /> <referenceRange> <observationRange> <text>27.0-32.0</text> </ observationRange> </referenceRange> </observation> </ component> <component> <observation moodCode="EVN" classCode="OBS"> <templateId root=".1.474648.10.22.4.2" /> <id nullFlavor="NA" /> <code codeSystem="local" code="MCHC" displayName= "MCHC" /> <statusCode code="completed" /> <effectiveTime value ="689794809682" /> <value unit="g/dL" xsi:type="PQ" value="32.9" /> <referenceRange> <observationRange> <text>32.0- 36.0</text> </observationRange> </referenceRange> </ observation> </component> <component> <observation moodCode= "EVN" classCode="OBS"> <templateId root="216.840.1.257005.07.02.22.4.2 " /> <id nullFlavor="NA" /> <code codeSystem="local" code="MCV " displayName="MCV" /> <statusCode code="completed" /> < effectiveTime value="329145561877" /> <value unit="fL" xsi:type="PQ" value="90.8" /> <referenceRange> <observationRange> <text>82.0-99.0</text> </observationRange> </ referenceRange> </observation> </component> <component> <observation moodCode="EVN" classCode="OBS"> <templateId root= "16.840.1.820417.10.22.4.2" /> <id nullFlavor="NA" /> < code codeSystem="local" code="MONOR" displayName="Monocytes" /> < statusCode code="completed" /> <effectiveTime value="060113657459" /> <value unit="%" xsi:type="PQ" value="13" /> < interpretationCode codeSystem="local" code="*" /> <referenceRange> <observationRange> <text>4-11</text> </ observationRange> </referenceRange> </observation> </ component> <component> <observation moodCode="EVN" classCode="OBS"> <templateId root="216.840.1.337581.1022.4.2" /> <id nullFlavor="NA" /> <code codeSystem="local" code="MPV" displayName="MPV " /> <statusCode code="completed" /> <effectiveTime value= "387491230620" /> <value unit="fL" xsi:type="PQ" value="10.9" /> <referenceRange> <observationRange> <text>9.4-12.3</ text> </observationRange> </referenceRange> </ observation> </component> <component> <observation moodCode= "EVN" classCode="OBS"> <templateId root="10.29.840.1.159190.10.4.2 " /> <id nullFlavor="NA" /> <code codeSystem="local" code= "SEGR" displayName="Neutrophils" /> <statusCode code="completed" /> <effectiveTime value="238290435613" /> <value unit="%" xsi: type="PQ" value="28" /> <interpretationCode codeSystem="local" code="* " /> <referenceRange> <observationRange> <text> 51-75</text> </observationRange> </referenceRange> </ observation> </component> <component> <observation moodCode= "EVN" classCode="OBS"> <templateId root="10.29.840.1.109643.10.22.4.2 " /> <id nullFlavor="NA" /> <code codeSystem="local" code= "NRBCA" displayName="Nucleated RBC Automated" /> <statusCode code= "completed" /> <effectiveTime value="173594233301" /> <value unit="/100WBC" xsi:type="PQ" value="0.0" /> <referenceRange> <observationRange> <text /> </observationRange> </referenceRange> </observation> </component> <component> <observation moodCode="EVN" classCode="OBS"> <templateId root= "10.29.840.1.258826.22.4.2" /> <id nullFlavor="NA" /> < code codeSystem="local" code="PLT" displayName="Platelet Count" /> < statusCode code="completed" /> <effectiveTime value="243929974038" /> <value unit="K/uL" xsi:type="PQ" value="139" /> < interpretationCode codeSystem="local" code="*" /> <referenceRange> <observationRange> <text>150-400</text> </ observationRange> </referenceRange> </observation> </ component> <component> <observation moodCode="EVN" classCode="OBS"> <templateId root="10.29.840.1.228142.22.4.2" /> <id nullFlavor="NA" /> <code codeSystem="local" code="RBC" displayName="RBC " /> <statusCode code="completed" /> <effectiveTime value= "799485065865" /> <value unit="10*6/uL" xsi:type="PQ" value="4.02" /> <interpretationCode codeSystem="local" code="*" /> < referenceRange> <observationRange> <text>4.60-6.20</text > </observationRange> </referenceRange> </observation > </component> <component> <observation moodCode="EVN" classCode="OBS"> <templateId root="10.29.840.1.037876.07.02.22.4.2" /> <id nullFlavor="NA" /> <code codeSystem="local" code="RDW" displayName="RDW" /> <statusCode code="completed" /> < effectiveTime value="335418079417" /> <value unit="%" xsi:type="PQ " value="14.8" /> <interpretationCode codeSystem="local" code="*" /> <referenceRange> <observationRange> <text>11.5- 14.5</text> </observationRange> </referenceRange> </ observation> </component> <component> <observation moodCode= "EVN" classCode="OBS"> <templateId root="840.1.651000.07.02.22.4.2 " /> <id nullFlavor="NA" /> <code codeSystem="local" code= "WBCIR" displayName="WBC" /> <statusCode code="completed" /> < effectiveTime value="746433338885" /> <value unit="K/uL" xsi:type="PQ" value="4.8" /> <referenceRange> <observationRange> <text>4.8-10.8</text> </observationRange> </ referenceRange> </observation> </component> </organizer> </entry > <entry> <organizer moodCode="EVN" classCode="BATTERY"> <templateId root="840.1.671562.07.02.22.4.1" /> <id nullFlavor="NA" /> <code codeSystem="local" code="PHOS" displayName="Phosphorus" /> <statusCode code ="completed" /> <component> <observation moodCode="EVN" classCode= "OBS"> <templateId root="840.1.657666.1022.4.2" /> < id nullFlavor="NA" /> <code codeSystem="local" code="PHOS" displayName= "Phosphorus" /> <statusCode code="completed" /> < effectiveTime value="126284045534" /> <value unit="mg/dL" xsi:type="PQ " value="4.6" /> <referenceRange> <observationRange> <text>2.4-4.7</text> </observationRange> </ referenceRange> </observation> </component> </organizer> </entry > <entry> <organizer moodCode="EVN" classCode="BATTERY"> <templateId root="16.840.1.531544.10..22.4.1" /> <id nullFlavor="NA" /> <code codeSystem="local" code="MG" displayName="Magnesium" /> <statusCode code= "completed" /> <component> <observation moodCode="EVN" classCode= "OBS"> <templateId root="16.840.1.357364.10..22.4.2" /> < id nullFlavor="NA" /> <code codeSystem="local" code="MG" displayName= "Magnesium" /> <statusCode code="completed" /> <effectiveTime value="479516385034" /> <value unit="mg/dL" xsi:type="PQ" value="1.8" / > <referenceRange> <observationRange> <text>1.8 -2.5</text> </observationRange> </referenceRange> </ observation> </component> </organizer> </entry> <entry> <organizer moodCode="EVN" classCode="BATTERY"> <templateId root= "10.29.840.1.911882.10.20.22.4.1" /> <id nullFlavor="NA" /> <code codeSystem="local" code="CMP" displayName="Comprehensive Metabolic Panel (CMP)" /> <statusCode code="completed" /> <component> <observation moodCode="EVN" classCode="OBS"> <templateId root= "16.840.1.897201.10..4.2" /> <id nullFlavor="NA" /> < code codeSystem="local" code="ALB" displayName="Albumin" /> < statusCode code="completed" /> <effectiveTime value="" /> <value unit="g/dL" xsi:type="PQ" value="3.0" /> < interpretationCode codeSystem="local" code="*" /> <referenceRange> <observationRange> <text>3.5-4.8</text> </ observationRange> </referenceRange> </observation> </ component> <component> <observation moodCode="EVN" classCode="OBS"> <templateId root="10.29.840.1.717844.07.02.22.4.2" /> <id nullFlavor="NA" /> <code codeSystem="local" code="ALP" displayName= "Alkaline Phosphatase" /> <statusCode code="completed" /> < effectiveTime value="" /> <value unit="U/L" xsi:type="PQ" value="66" /> <referenceRange> <observationRange> <text>26-104</text> </observationRange> </referenceRange > </observation> </component> <component> <observation moodCode="EVN" classCode="OBS"> <templateId root= "10.29.840.1.098313.10..4.2" /> <id nullFlavor="NA" /> < code codeSystem="local" code="ALT" displayName="ALT (SGPT)" /> < statusCode code="completed" /> <effectiveTime value="" /> <value unit="U/L" xsi:type="PQ" value="30" /> <referenceRange > <observationRange> <text>17-63</text> </ observationRange> </referenceRange> </observation> </ component> <component> <observation moodCode="EVN" classCode="OBS"> <templateId root="2.840.1.763228.10..22.4.2" /> <id nullFlavor="NA" /> <code codeSystem="local" code="AGAP" displayName= "Anion Gap" /> <statusCode code="completed" /> <effectiveTime value="063837304316" /> <value unit="mEq/L" xsi:type="PQ" value="8" /> <referenceRange> <observationRange> <text>3-20 </text> </observationRange> </referenceRange> </ observation> </component> <component> <observation moodCode= "EVN" classCode="OBS"> <templateId root="10.29.840.1.650365.10..22.4.2 " /> <id nullFlavor="NA" /> <code codeSystem="local" code="AST " displayName="AST (SGOT)" /> <statusCode code="completed" /> <effectiveTime value="004560522734" /> <value unit="U/L" xsi:type="PQ" value="31" /> <referenceRange> <observationRange> <text>15-41</text> </observationRange> </referenceRange > </observation> </component> <component> <observation moodCode="EVN" classCode="OBS"> <templateId root= "10.29.840.1.658913.10.20.22.4.2" /> <id nullFlavor="NA" /> < code codeSystem="local" code="BILIT" displayName="Bilirubin Total" /> < statusCode code="completed" /> <effectiveTime value="475834632477" /> <value unit="mg/dL" xsi:type="PQ" value="0.7" /> < referenceRange> <observationRange> <text>0.2-1.2</text> </observationRange> </referenceRange> </observation > </component> <component> <observation moodCode="EVN" classCode="OBS"> <templateId root="16.840.1.225179.07.02.22.4.2" /> <id nullFlavor="NA" /> <code codeSystem="local" code="BUN" displayName="BUN" /> <statusCode code="completed" /> < effectiveTime value="335977499011" /> <value unit="mg/dL" xsi:type="PQ " value="14" /> <referenceRange> <observationRange> <text>4-20</text> </observationRange> </referenceRange > </observation> </component> <component> <observation moodCode="EVN" classCode="OBS"> <templateId root= "216.840.1.803613.07.02.22.4.2" /> <id nullFlavor="NA" /> < code codeSystem="local" code="CA" displayName="Calcium" /> <statusCode code="completed" /> <effectiveTime value="950572622012" /> < value unit="mg/dL" xsi:type="PQ" value="8.1" /> <interpretationCode codeSystem="local" code="*" /> <referenceRange> < observationRange> <text>8.6-10.0</text> </ observationRange> </referenceRange> </observation> </ component> <component> <observation moodCode="EVN" classCode="OBS"> <templateId root="216.840.1.964647.22.4.2" /> <id nullFlavor="NA" /> <code codeSystem="local" code="CL" displayName= "Chloride" /> <statusCode code="completed" /> <effectiveTime value="122765792620" /> <value unit="mEq/L" xsi:type="PQ" value="109" / > <referenceRange> <observationRange> <text>99- 109</text> </observationRange> </referenceRange> </ observation> </component> <component> <observation moodCode= "EVN" classCode="OBS"> <templateId root="216.840.1.144292.07.02.22.4.2 " /> <id nullFlavor="NA" /> <code codeSystem="local" code="CO2 " displayName="CO2" /> <statusCode code="completed" /> < effectiveTime value="071135452442" /> <value unit="mEq/L" xsi:type="PQ " value="19" /> <interpretationCode codeSystem="local" code="*" /> <referenceRange> <observationRange> <text>22-32</ text> </observationRange> </referenceRange> </ observation> </component> <component> <observation moodCode= "EVN" classCode="OBS"> <templateId root="16.840.1.304961.2022.4.2 " /> <id nullFlavor="NA" /> <code codeSystem="local" code= "CREAT" displayName="Creatinine" /> <statusCode code="completed" /> <effectiveTime value="220618603791" /> <value unit="mg/dL" xsi: type="PQ" value="0.99" /> <referenceRange> <observationRange > <text>0.64-1.27</text> </observationRange> </ referenceRange> </observation> </component> <component> <observation moodCode="EVN" classCode="OBS"> <templateId root= "10.29.840.1.671109.10.4.2" /> <id nullFlavor="NA" /> < code codeSystem="local" code="GLOB" displayName="Globulin" /> < statusCode code="completed" /> <effectiveTime value="" /> <value unit="g/dL" xsi:type="PQ" value="2.8" /> < referenceRange> <observationRange> <text>1.9-4.3</text> </observationRange> </referenceRange> </observation > </component> <component> <observation moodCode="EVN" classCode="OBS"> <templateId root="10.29.840.1.807570.07.02.22.4.2" /> <id nullFlavor="NA" /> <code codeSystem="local" code="GLU" displayName="Glucose" /> <statusCode code="completed" /> < effectiveTime value="" /> <value unit="mg/dL" xsi:type="PQ " value="80" /> <referenceRange> <observationRange> <text>70-100</text> </observationRange> </ referenceRange> </observation> </component> <component> <observation moodCode="EVN" classCode="OBS"> <templateId root= "10.29.840.1.855727.22.4.2" /> <id nullFlavor="NA" /> < code codeSystem="local" code="K" displayName="Potassium" /> < statusCode code="completed" /> <effectiveTime value="868846915246" /> <value unit="mEq/L" xsi:type="PQ" value="4.1" /> < referenceRange> <observationRange> <text>3.6-5.1</text> </observationRange> </referenceRange> </observation > </component> <component> <observation moodCode="EVN" classCode="OBS"> <templateId root="16.840.1.679427.10.20.22.4.2" /> <id nullFlavor="NA" /> <code codeSystem="local" code="TP" displayName="Protein" /> <statusCode code="completed" /> < effectiveTime value="638353082162" /> <value unit="g/dL" xsi:type="PQ" value="5.8" /> <interpretationCode codeSystem="local" code="*" /> <referenceRange> <observationRange> <text>6.1-7.9</ text> </observationRange> </referenceRange> </ observation> </component> <component> <observation moodCode= "EVN" classCode="OBS"> <templateId root="840.1.731483.10...4.2 " /> <id nullFlavor="NA" /> <code codeSystem="local" code="NA " displayName="Sodium" /> <statusCode code="completed" /> < effectiveTime value="661858600076" /> <value unit="mEq/L" xsi:type="PQ " value="136" /> <referenceRange> <observationRange> <text>136-144</text> </observationRange> </ referenceRange> </observation> </component> </organizer> </entry > <entry> <organizer moodCode="EVN" classCode="BATTERY"> <templateId root="16.840.1.237900.10.20.22.4.1" /> <id nullFlavor="NA" /> <code codeSystem="local" code="GFR" displayName="eGFR" /> <statusCode code= "completed" /> <component> <observation moodCode="EVN" classCode= "OBS"> <templateId root="2.16.840.1.829929.10..22.4.2" /> < id nullFlavor="NA" /> <code codeSystem="local" code="GFR" displayName= "eGFR" /> <statusCode code="completed" /> <effectiveTime value ="392161914831" /> <value unit="mL/min" xsi:type="PQ" value=">60" / > <referenceRange> <observationRange> <text>&gt ;60</text> </observationRange> </referenceRange> </ observation> </component> </organizer> </entry> <entry> <organizer moodCode="EVN" classCode="BATTERY"> <templateId root= "2.16.840.1.541874.10..22.4.1" /> <id nullFlavor="NA" /> <code codeSystem="local" code="UDRGH" displayName="Urine Drug Screen" /> < statusCode code="completed" /> <component> <observation moodCode= "EVN" classCode="OBS"> <templateId root="2.16.840.1.685962.10..22.4.2 " /> <id nullFlavor="NA" /> <code codeSystem="local" code= "UTCA1" displayName="Tricyclics" /> <statusCode code="completed" /> <effectiveTime value="679084245926" /> <value unit="NA" xsi:type ="PQ" value="Not Detected" /> <referenceRange> < observationRange> <text /> </observationRange> </referenceRange> </observation> </component> </organizer> </ entry> <entry> <organizer moodCode="EVN" classCode="BATTERY"> < templateId root="216.840.1.004720.10..22.4.1" /> <id nullFlavor="NA" /> <code codeSystem="local" code="CBCWD" displayName="CBC With Platelet and Differential" /> <statusCode code="completed" /> <component> < observation moodCode="EVN" classCode="OBS"> <templateId root= "16.840.1.339016.07.02.22.4.2" /> <id nullFlavor="NA" /> < code codeSystem="local" code="ABASR" displayName="Absolute Basophils" /> <statusCode code="completed" /> <effectiveTime value="" /> <value unit="10*3/uL" xsi:type="PQ" value="0.03" /> < referenceRange> <observationRange> <text>0.00-0.20</text > </observationRange> </referenceRange> </observation > </component> <component> <observation moodCode="EVN" classCode="OBS"> <templateId root="216.840.1.320448.07.02.22.4.2" /> <id nullFlavor="NA" /> <code codeSystem="local" code="AEOSR" displayName="Absolute Eosinophils" /> <statusCode code="completed" /> <effectiveTime value="" /> <value unit="10*3/uL" xsi:type="PQ" value="1.27" /> <interpretationCode codeSystem="local" code="*" /> <referenceRange> <observationRange> <text>0.00-0.50</text> </observationRange> </ referenceRange> </observation> </component> <component> <observation moodCode="EVN" classCode="OBS"> <templateId root= "16.840.1.034513.07.02.22.4.2" /> <id nullFlavor="NA" /> < code codeSystem="local" code="ALYMR" displayName="Absolute Lymphocytes" /> <statusCode code="completed" /> <effectiveTime value="285355528821 " /> <value unit="10*3/uL" xsi:type="PQ" value="2.56" /> < referenceRange> <observationRange> <text>0.80-3.30</text > </observationRange> </referenceRange> </observation > </component> <component> <observation moodCode="EVN" classCode="OBS"> <templateId root="10.29.840.1.029534.07.02.22.4.2" /> <id nullFlavor="NA" /> <code codeSystem="local" code="AMONR" displayName="Absolute Monocytes" /> <statusCode code="completed" /> <effectiveTime value="" /> <value unit="10*3/uL" xsi :type="PQ" value="0.77" /> <referenceRange> < observationRange> <text>0.30-1.00</text> </ observationRange> </referenceRange> </observation> </ component> <component> <observation moodCode="EVN" classCode="OBS"> <templateId root="10.29.840.1.795790.07.02.22.4.2" /> <id nullFlavor="NA" /> <code codeSystem="local" code="ASEGR" displayName= "Absolute Neutrophils" /> <statusCode code="completed" /> < effectiveTime value="550820255753" /> <value unit="10*3/uL" xsi:type= "PQ" value="2.13" /> <referenceRange> <observationRange> <text>1.90-7.00</text> </observationRange> </ referenceRange> </observation> </component> <component> <observation moodCode="EVN" classCode="OBS"> <templateId root= "216.840.1.246208.10.22.4.2" /> <id nullFlavor="NA" /> < code codeSystem="local" code="BASOR" displayName="Basophils" /> < statusCode code="completed" /> <effectiveTime value="" /> <value unit="%" xsi:type="PQ" value="0" /> <referenceRange > <observationRange> <text>0-2</text> </ observationRange> </referenceRange> </observation> </ component> <component> <observation moodCode="EVN" classCode="OBS"> <templateId root="216.840.1.715215.07.02.22.4.2" /> <id nullFlavor="NA" /> <code codeSystem="local" code="EOSR" displayName= "Eosinophils" /> <statusCode code="completed" /> < effectiveTime value="" /> <value unit="%" xsi:type="PQ " value="19" /> <interpretationCode codeSystem="local" code="*" /> <referenceRange> <observationRange> <text>0-4</ text> </observationRange> </referenceRange> </ observation> </component> <component> <observation moodCode= "EVN" classCode="OBS"> <templateId root="216.840.1.565931.10.22.4.2 " /> <id nullFlavor="NA" /> <code codeSystem="local" code="HCT " displayName="HCT" /> <statusCode code="completed" /> < effectiveTime value="" /> <value unit="%" xsi:type="PQ " value="37.9" /> <interpretationCode codeSystem="local" code="*" /> <referenceRange> <observationRange> <text>42.0- 52.0</text> </observationRange> </referenceRange> </ observation> </component> <component> <observation moodCode= "EVN" classCode="OBS"> <templateId root="216.840.1.990421.10.4.2 " /> <id nullFlavor="NA" /> <code codeSystem="local" code="HGB " displayName="HGB" /> <statusCode code="completed" /> < effectiveTime value="900480550897" /> <value unit="g/dL" xsi:type="PQ" value="12.4" /> <interpretationCode codeSystem="local" code="*" /> <referenceRange> <observationRange> <text>14.0- 18.0</text> </observationRange> </referenceRange> </ observation> </component> <component> <observation moodCode= "EVN" classCode="OBS"> <templateId root="216.840.1.242662.07.02.224.2 " /> <id nullFlavor="NA" /> <code codeSystem="local" code= "IMGA" displayName="Immature Granulocytes" /> <statusCode code= "completed" /> <effectiveTime value="337184009869" /> <value unit="%" xsi:type="PQ" value="0.4" /> <referenceRange> < observationRange> <text>0.0-1.0</text> </ observationRange> </referenceRange> </observation> </ component> <component> <observation moodCode="EVN" classCode="OBS"> <templateId root="216.840.1.184578.07.02.22.4.2" /> <id nullFlavor="NA" /> <code codeSystem="local" code="LYMPR" displayName= "Lymphocytes" /> <statusCode code="completed" /> < effectiveTime value="" /> <value unit="%" xsi:type="PQ " value="38" /> <referenceRange> <observationRange> <text>20-46</text> </observationRange> </ referenceRange> </observation> </component> <component> <observation moodCode="EVN" classCode="OBS"> <templateId root= "216.840.1.623132.07.02.22.4.2" /> <id nullFlavor="NA" /> < code codeSystem="local" code="MCH" displayName="MCH" /> <statusCode code="completed" /> <effectiveTime value="" /> < value unit="pg" xsi:type="PQ" value="29.7" /> <referenceRange> <observationRange> <text>27.0-32.0</text> </ observationRange> </referenceRange> </observation> </ component> <component> <observation moodCode="EVN" classCode="OBS"> <templateId root="216.840.1.215824.07.02.22.4.2" /> <id nullFlavor="NA" /> <code codeSystem="local" code="MCHC" displayName= "MCHC" /> <statusCode code="completed" /> <effectiveTime value ="" /> <value unit="g/dL" xsi:type="PQ" value="32.7" /> <referenceRange> <observationRange> <text>32.0- 36.0</text> </observationRange> </referenceRange> </ observation> </component> <component> <observation moodCode= "EVN" classCode="OBS"> <templateId root="16.840.1.843846.10.20.22.4.2 " /> <id nullFlavor="NA" /> <code codeSystem="local" code="MCV " displayName="MCV" /> <statusCode code="completed" /> < effectiveTime value="" /> <value unit="fL" xsi:type="PQ" value="90.7" /> <referenceRange> <observationRange> <text>82.0-99.0</text> </observationRange> </ referenceRange> </observation> </component> <component> <observation moodCode="EVN" classCode="OBS"> <templateId root= "10.29.840.1.895300.10.22.4.2" /> <id nullFlavor="NA" /> < code codeSystem="local" code="MONOR" displayName="Monocytes" /> < statusCode code="completed" /> <effectiveTime value="" /> <value unit="%" xsi:type="PQ" value="11" /> < referenceRange> <observationRange> <text>4-11</text> </observationRange> </referenceRange> </observation> </component> <component> <observation moodCode="EVN" classCode= "OBS"> <templateId root="10.29.840.1.022990.10.20.22.4.2" /> < id nullFlavor="NA" /> <code codeSystem="local" code="MPV" displayName= "MPV" /> <statusCode code="completed" /> <effectiveTime value= "" /> <value unit="fL" xsi:type="PQ" value="10.7" /> <referenceRange> <observationRange> <text>9.4-12.3</ text> </observationRange> </referenceRange> </ observation> </component> <component> <observation moodCode= "EVN" classCode="OBS"> <templateId root="216.840.1.166121.10.4.2 " /> <id nullFlavor="NA" /> <code codeSystem="local" code= "SEGR" displayName="Neutrophils" /> <statusCode code="completed" /> <effectiveTime value="" /> <value unit="%" xsi: type="PQ" value="32" /> <interpretationCode codeSystem="local" code="* " /> <referenceRange> <observationRange> <text> 51-75</text> </observationRange> </referenceRange> </ observation> </component> <component> <observation moodCode= "EVN" classCode="OBS"> <templateId root="10.29.840.1.134075.10.4.2 " /> <id nullFlavor="NA" /> <code codeSystem="local" code= "NRBCA" displayName="Nucleated RBC Automated" /> <statusCode code= "completed" /> <effectiveTime value="" /> <value unit="/100WBC" xsi:type="PQ" value="0.0" /> <referenceRange> <observationRange> <text /> </observationRange> </referenceRange> </observation> </component> <component> <observation moodCode="EVN" classCode="OBS"> <templateId root= "10.29.840.1.579361.10.4.2" /> <id nullFlavor="NA" /> < code codeSystem="local" code="PLT" displayName="Platelet Count" /> < statusCode code="completed" /> <effectiveTime value="" /> <value unit="K/uL" xsi:type="PQ" value="160" /> < referenceRange> <observationRange> <text>150-400</text> </observationRange> </referenceRange> </observation > </component> <component> <observation moodCode="EVN" classCode="OBS"> <templateId root="216.840.1.618149.10.22.4.2" /> <id nullFlavor="NA" /> <code codeSystem="local" code="RBC" displayName="RBC" /> <statusCode code="completed" /> < effectiveTime value="" /> <value unit="10*6/uL" xsi:type= "PQ" value="4.18" /> <interpretationCode codeSystem="local" code="*" / > <referenceRange> <observationRange> <text> 4.60-6.20</text> </observationRange> </referenceRange> </observation> </component> <component> <observation moodCode="EVN" classCode="OBS"> <templateId root= "216.840.1.193252..22.4.2" /> <id nullFlavor="NA" /> < code codeSystem="local" code="RDW" displayName="RDW" /> <statusCode code="completed" /> <effectiveTime value="" /> < value unit="%" xsi:type="PQ" value="14.8" /> <interpretationCode codeSystem="local" code="*" /> <referenceRange> < observationRange> <text>11.5-14.5</text> </ observationRange> </referenceRange> </observation> </ component> <component> <observation moodCode="EVN" classCode="OBS"> <templateId root="216.840.1.458472.10..22.4.2" /> <id nullFlavor="NA" /> <code codeSystem="local" code="WBCIR" displayName= "WBC" /> <statusCode code="completed" /> <effectiveTime value= "235814042730" /> <value unit="K/uL" xsi:type="PQ" value="6.8" /> <referenceRange> <observationRange> <text>4.8-10.8< /text> </observationRange> </referenceRange> </ observation> </component> </organizer> </entry> <entry> <organizer moodCode="EVN" classCode="BATTERY"> <templateId root= "16.840.1.379678.10..22.4.1" /> <id nullFlavor="NA" /> <code codeSystem="local" code="MG" displayName="Magnesium" /> <statusCode code= "completed" /> <component> <observation moodCode="EVN" classCode= "OBS"> <templateId root="16.840.1.006525...22.4.2" /> < id nullFlavor="NA" /> <code codeSystem="local" code="MG" displayName= "Magnesium" /> <statusCode code="completed" /> <effectiveTime value="126043438837" /> <value unit="mg/dL" xsi:type="PQ" value="1.9" / > <referenceRange> <observationRange> <text>1.8 -2.5</text> </observationRange> </referenceRange> </ observation> </component> </organizer> </entry> <entry> <organizer moodCode="EVN" classCode="BATTERY"> <templateId root= "16.840.1.134668.10..22.4.1" /> <id nullFlavor="NA" /> <code codeSystem="local" code="RENAL" displayName="Renal Function Panel" /> < statusCode code="completed" /> <component> <observation moodCode= "EVN" classCode="OBS"> <templateId root="10.29.840.1.815463.10..22.4.2 " /> <id nullFlavor="NA" /> <code codeSystem="local" code="ALB " displayName="Albumin" /> <statusCode code="completed" /> < effectiveTime value="" /> <value unit="g/dL" xsi:type="PQ" value="3.4" /> <interpretationCode codeSystem="local" code="*" /> <referenceRange> <observationRange> <text>3.5-4.8</ text> </observationRange> </referenceRange> </ observation> </component> <component> <observation moodCode= "EVN" classCode="OBS"> <templateId root="840.1.591275.07.02.22.4.2 " /> <id nullFlavor="NA" /> <code codeSystem="local" code= "AGAP" displayName="Anion Gap" /> <statusCode code="completed" /> <effectiveTime value="" /> <value unit="mEq/L" xsi: type="PQ" value="7" /> <referenceRange> <observationRange> <text>3-20</text> </observationRange> </ referenceRange> </observation> </component> <component> <observation moodCode="EVN" classCode="OBS"> <templateId root= "10.29.840.1.374505.10..22.4.2" /> <id nullFlavor="NA" /> < code codeSystem="local" code="BUN" displayName="BUN" /> <statusCode code="completed" /> <effectiveTime value="" /> < value unit="mg/dL" xsi:type="PQ" value="12" /> <referenceRange> <observationRange> <text>4-20</text> </ observationRange> </referenceRange> </observation> </ component> <component> <observation moodCode="EVN" classCode="OBS"> <templateId root="10.29.840.1.416236.102022.4.2" /> <id nullFlavor="NA" /> <code codeSystem="local" code="CA" displayName= "Calcium" /> <statusCode code="completed" /> <effectiveTime value="" /> <value unit="mg/dL" xsi:type="PQ" value="8.7" / > <referenceRange> <observationRange> <text>8.6 -10.0</text> </observationRange> </referenceRange> </ observation> </component> <component> <observation moodCode= "EVN" classCode="OBS"> <templateId root="10.29.840.1.269657.22.4.2 " /> <id nullFlavor="NA" /> <code codeSystem="local" code="CL " displayName="Chloride" /> <statusCode code="completed" /> < effectiveTime value="" /> <value unit="mEq/L" xsi:type="PQ " value="107" /> <referenceRange> <observationRange> <text>99-109</text> </observationRange> </ referenceRange> </observation> </component> <component> <observation moodCode="EVN" classCode="OBS"> <templateId root= "10.29.840.1.961221.10.2022.4.2" /> <id nullFlavor="NA" /> < code codeSystem="local" code="CO2" displayName="CO2" /> <statusCode code="completed" /> <effectiveTime value="" /> < value unit="mEq/L" xsi:type="PQ" value="24" /> <referenceRange> <observationRange> <text>22-32</text> </ observationRange> </referenceRange> </observation> </ component> <component> <observation moodCode="EVN" classCode="OBS"> <templateId root="216.840.1.054715.10.22.4.2" /> <id nullFlavor="NA" /> <code codeSystem="local" code="CREAT" displayName= "Creatinine" /> <statusCode code="completed" /> < effectiveTime value="" /> <value unit="mg/dL" xsi:type="PQ " value="0.92" /> <referenceRange> <observationRange> <text>0.64-1.27</text> </observationRange> </ referenceRange> </observation> </component> <component> <observation moodCode="EVN" classCode="OBS"> <templateId root= "16.840.1.525754...22.4.2" /> <id nullFlavor="NA" /> < code codeSystem="local" code="GLU" displayName="Glucose" /> < statusCode code="completed" /> <effectiveTime value="" /> <value unit="mg/dL" xsi:type="PQ" value="82" /> < referenceRange> <observationRange> <text>70-100</text> </observationRange> </referenceRange> </observation> </component> <component> <observation moodCode="EVN" classCode ="OBS"> <templateId root="10.29.840.1.097830.22.4.2" /> < id nullFlavor="NA" /> <code codeSystem="local" code="PHOS" displayName= "Phosphorus" /> <statusCode code="completed" /> < effectiveTime value="" /> <value unit="mg/dL" xsi:type="PQ " value="4.4" /> <referenceRange> <observationRange> <text>2.4-4.7</text> </observationRange> </ referenceRange> </observation> </component> <component> <observation moodCode="EVN" classCode="OBS"> <templateId root= "216.840.1.243165.10..22.4.2" /> <id nullFlavor="NA" /> < code codeSystem="local" code="K" displayName="Potassium" /> < statusCode code="completed" /> <effectiveTime value="" /> <value unit="mEq/L" xsi:type="PQ" value="4.6" /> < referenceRange> <observationRange> <text>3.6-5.1</text> </observationRange> </referenceRange> </observation > </component> <component> <observation moodCode="EVN" classCode="OBS"> <templateId root="216.840.1.955952.10..22.4.2" /> <id nullFlavor="NA" /> <code codeSystem="local" code="NA" displayName="Sodium" /> <statusCode code="completed" /> < effectiveTime value="" /> <value unit="mEq/L" xsi:type="PQ " value="138" /> <referenceRange> <observationRange> <text>136-144</text> </observationRange> </ referenceRange> </observation> </component> </organizer> </entry > <entry> <organizer moodCode="EVN" classCode="BATTERY"> <templateId root="10.29.840.1.085322.10..4.1" /> <id nullFlavor="NA" /> <code codeSystem="local" code="GFR" displayName="eGFR" /> <statusCode code= "completed" /> <component> <observation moodCode="EVN" classCode= "OBS"> <templateId root="840.1.686264.07.02.22.4.2" /> < id nullFlavor="NA" /> <code codeSystem="local" code="GFR" displayName= "eGFR" /> <statusCode code="completed" /> <effectiveTime value ="[id number]" /> <value unit="mL/min" xsi:type="PQ" value=">60" / > <referenceRange> <observationRange> <text>&gt ;60</text> </observationRange> </referenceRange> </ observation> </component> </organizer> </entry> <entry> <organizer moodCode="EVN" classCode="BATTERY"> <templateId root= "840.1.212982.07.02.22.4.1" /> <id nullFlavor="NA" /> <code codeSystem="local" code="BNP" displayName="B-TYPE NATRIURETIC PEPTIDE" /> < statusCode code="completed" /> <component> <observation moodCode= "EVN" classCode="OBS"> <templateId root="840.1.895673.07.02.22.4.2 " /> <id nullFlavor="NA" /> <code codeSystem="local" code="BNP " displayName="B-TYPE NATRIURETIC PEPTIDE" /> <statusCode code= "completed" /> <effectiveTime value="176939011086" /> <value unit="pg/mL" xsi:type="PQ" value="1119" /> <interpretationCode codeSystem="local" code="*" /> <referenceRange> < observationRange> <text>< 100</text> </ observationRange> </referenceRange> </observation> </ component> </organizer> </entry> <entry> <organizer moodCode="EVN" classCode="BATTERY"> <templateId root="10.29.840.1.387363.10.4.1" /> <id nullFlavor="NA" /> <code codeSystem="local" code="CBCD" displayName="CBC W/DIFF" /> <statusCode code="completed" /> <component > <observation moodCode="EVN" classCode="OBS"> <templateId root= "10.29.840.1.423808.07.02.22.4.2" /> <id nullFlavor="NA" /> < code codeSystem="local" code="BA#" displayName="BASOPHIL #" /> < statusCode code="completed" /> <effectiveTime value="" /> <value unit="k/cumm" xsi:type="PQ" value="0.0" /> < referenceRange> <observationRange> <text>0.0-0.2</text> </observationRange> </referenceRange> </observation > </component> <component> <observation moodCode="EVN" classCode="OBS"> <templateId root="10.29.840.1.984514.07.02.22.4.2" /> <id nullFlavor="NA" /> <code codeSystem="local" code="BA% " displayName="BASOPHIL %" /> <statusCode code="completed" /> <effectiveTime value="141451957987" /> <value unit="%" xsi: type="PQ" value="0.7" /> <referenceRange> <observationRange > <text>0-1</text> </observationRange> </ referenceRange> </observation> </component> <component> <observation moodCode="EVN" classCode="OBS"> <templateId root= "216.840.1.192539.10.22.4.2" /> <id nullFlavor="NA" /> < code codeSystem="local" code="EO#" displayName="EOSINOPHIL #" /> < statusCode code="completed" /> <effectiveTime value="641290764150" /> <value unit="k/cumm" xsi:type="PQ" value="1.0" /> < interpretationCode codeSystem="local" code="*" /> <referenceRange> <observationRange> <text>0.1-0.5</text> </ observationRange> </referenceRange> </observation> </ component> <component> <observation moodCode="EVN" classCode="OBS"> <templateId root="2.840.1.556089.07.02.22.4.2" /> <id nullFlavor="NA" /> <code codeSystem="local" code="EO%" displayName= "EOSINOPHIL %" /> <statusCode code="completed" /> < effectiveTime value="829410600371" /> <value unit="%" xsi:type="PQ " value="17.4" /> <interpretationCode codeSystem="local" code="*" /> <referenceRange> <observationRange> <text>2-4</ text> </observationRange> </referenceRange> </ observation> </component> <component> <observation moodCode= "EVN" classCode="OBS"> <templateId root="2.840.1.864403.07.02.224.2 " /> <id nullFlavor="NA" /> <code codeSystem="local" code="GR# " displayName="GRANULOCYTE #" /> <statusCode code="completed" /> <effectiveTime value="" /> <value unit="k/cumm" xsi: type="PQ" value="2.4" /> <referenceRange> <observationRange > <text>2.0-9.0</text> </observationRange> </ referenceRange> </observation> </component> <component> <observation moodCode="EVN" classCode="OBS"> <templateId root= "216.840.1.149272.07.02.224.2" /> <id nullFlavor="NA" /> < code codeSystem="local" code="GR%" displayName="GRANULOCYTE %" /> <statusCode code="completed" /> <effectiveTime value=" " /> <value unit="%" xsi:type="PQ" value="41.8" /> < interpretationCode codeSystem="local" code="*" /> <referenceRange> <observationRange> <text>50-75</text> </ observationRange> </referenceRange> </observation> </ component> <component> <observation moodCode="EVN" classCode="OBS"> <templateId root="16.840.1.110171.07.02.224.2" /> <id nullFlavor="NA" /> <code codeSystem="local" code="LY#" displayName= "LYMPHOCYTE #" /> <statusCode code="completed" /> < effectiveTime value="788369027062" /> <value unit="k/cumm" xsi:type="PQ " value="1.6" /> <referenceRange> <observationRange> <text>1.0-4.0</text> </observationRange> </ referenceRange> </observation> </component> <component> <observation moodCode="EVN" classCode="OBS"> <templateId root= "2.16.840.1.693802.10.4.2" /> <id nullFlavor="NA" /> < code codeSystem="local" code="LY%" displayName="LYMPHOCYTE %" /> <statusCode code="completed" /> <effectiveTime value="" /> <value unit="%" xsi:type="PQ" value="27.7" /> < referenceRange> <observationRange> <text>20-30</text> </observationRange> </referenceRange> </observation> </component> <component> <observation moodCode="EVN" classCode= "OBS"> <templateId root="216.840.1.866370.10.4.2" /> < id nullFlavor="NA" /> <code codeSystem="local" code="MCH" displayName= "MEAN CELL HGB" /> <statusCode code="completed" /> < effectiveTime value="" /> <value unit="pg" xsi:type="PQ" value="29.1" /> <referenceRange> <observationRange> <text>27.0-33.0</text> </observationRange> </ referenceRange> </observation> </component> <component> <observation moodCode="EVN" classCode="OBS"> <templateId root= "216.840.1.223701.10.4.2" /> <id nullFlavor="NA" /> < code codeSystem="local" code="MCHC" displayName="MEAN CELL HGB CONCENTRATION" / > <statusCode code="completed" /> <effectiveTime value= "884475447683" /> <value unit="g/dL" xsi:type="PQ" value="33.0" /> <referenceRange> <observationRange> <text>32.0- 37.0</text> </observationRange> </referenceRange> </ observation> </component> <component> <observation moodCode= "EVN" classCode="OBS"> <templateId root="10.29.840.1.937181.10..22.4.2 " /> <id nullFlavor="NA" /> <code codeSystem="local" code="MCV " displayName="MEAN CELL VOLUME" /> <statusCode code="completed" /> <effectiveTime value="149858936607" /> <value unit="fl" xsi:type ="PQ" value="88.1" /> <referenceRange> <observationRange> <text>80.0-100.0</text> </observationRange> </ referenceRange> </observation> </component> <component> <observation moodCode="EVN" classCode="OBS"> <templateId root= "840.1.985108.07.02.22.4.2" /> <id nullFlavor="NA" /> < code codeSystem="local" code="MO#" displayName="MONOCYTE #" /> < statusCode code="completed" /> <effectiveTime value="" /> <value unit="k/cumm" xsi:type="PQ" value="0.7" /> < referenceRange> <observationRange> <text>0.1-1.0</text> </observationRange> </referenceRange> </observation > </component> <component> <observation moodCode="EVN" classCode="OBS"> <templateId root="10.29.840.1.775282.10..22.4.2" /> <id nullFlavor="NA" /> <code codeSystem="local" code="MO% " displayName="MONOCYTE %" /> <statusCode code="completed" /> <effectiveTime value="" /> <value unit="%" xsi: type="PQ" value="11.7" /> <interpretationCode codeSystem="local" code= "*" /> <referenceRange> <observationRange> < text>4-6</text> </observationRange> </referenceRange> </observation> </component> <component> <observation moodCode ="EVN" classCode="OBS"> <templateId root= "2.16.840.1.496758.10..22.4.2" /> <id nullFlavor="NA" /> < code codeSystem="local" code="MPVT" displayName="MEAN PLATELET VOLUME" /> <statusCode code="completed" /> <effectiveTime value=" " /> <value unit="fl" xsi:type="PQ" value="11.0" /> < interpretationCode codeSystem="local" code="*" /> <referenceRange> <observationRange> <text>8.5-10.9</text> </ observationRange> </referenceRange> </observation> </ component> <component> <observation moodCode="EVN" classCode="OBS"> <templateId root="2.16.840.1.530403.10.20.22.4.2" /> <id nullFlavor="NA" /> <code codeSystem="local" code="RBC" displayName=" RED BLOOD CELL" /> <statusCode code="completed" /> < effectiveTime value="925340986964" /> <value unit="m/cumm" xsi:type="PQ " value="4.47" /> <referenceRange> <observationRange> <text>4.00-6.00</text> </observationRange> </ referenceRange> </observation> </component> <component> <observation moodCode="EVN" classCode="OBS"> <templateId root= "216.840.1.364923.10..22.4.2" /> <id nullFlavor="NA" /> < code codeSystem="local" code="RDW" displayName="RED CELL DISTRIBUTION WIDTH" /> <statusCode code="completed" /> <effectiveTime value= "" /> <value unit="%" xsi:type="PQ" value="15.0" /> <referenceRange> <observationRange> <text>11.0- 15.6</text> </observationRange> </referenceRange> </ observation> </component> <component> <observation moodCode= "EVN" classCode="OBS"> <templateId root="216.840.1.267952.07.02.22.4.2 " /> <id nullFlavor="NA" /> <code codeSystem="local" code="WBC " displayName="WHITE BLOOD CELL" /> <statusCode code="completed" /> <effectiveTime value="" /> <value unit="k/cumm" xsi: type="PQ" value="5.8" /> <referenceRange> <observationRange > <text>5.0-10.0</text> </observationRange> </ referenceRange> </observation> </component> <component> <observation moodCode="EVN" classCode="OBS"> <templateId root= "216.840.1.322688.10..22.4.2" /> <id nullFlavor="NA" /> < code codeSystem="local" code="HGBT" displayName="HEMOGLOBIN" /> < statusCode code="completed" /> <effectiveTime value="" /> <value unit="gm/dL" xsi:type="PQ" value="13.0" /> < interpretationCode codeSystem="local" code="*" /> <referenceRange> <observationRange> <text>14.0-18.0</text> </ observationRange> </referenceRange> </observation> </ component> <component> <observation moodCode="EVN" classCode="OBS"> <templateId root="216.840.1.460881.22.4.2" /> <id nullFlavor="NA" /> <code codeSystem="local" code="HCTT" displayName= "HEMATOCRIT" /> <statusCode code="completed" /> < effectiveTime value="023902330114" /> <value unit="%" xsi:type="PQ " value="39.4" /> <interpretationCode codeSystem="local" code="*" /> <referenceRange> <observationRange> <text>40.0- 54.0</text> </observationRange> </referenceRange> </ observation> </component> <component> <observation moodCode= "EVN" classCode="OBS"> <templateId root="216.840.1.935087.07.02.22.4.2 " /> <id nullFlavor="NA" /> <code codeSystem="local" code= "NRBC%" displayName="NRBC %" /> <statusCode code="completed" / > <effectiveTime value="081473599452" /> <value unit="/100WBC " xsi:type="PQ" value="0.0" /> <referenceRange> < observationRange> <text>0.0-0.0</text> </ observationRange> </referenceRange> </observation> </ component> <component> <observation moodCode="EVN" classCode="OBS"> <templateId root="2.16.840.1.163921.07.02.22.4.2" /> <id nullFlavor="NA" /> <code codeSystem="local" code="PLTT" displayName= "PLATELET COUNT" /> <statusCode code="completed" /> < effectiveTime value="078805379300" /> <value unit="k/cumm" xsi:type="PQ " value="105" /> <interpretationCode codeSystem="local" code="*" /> <referenceRange> <observationRange> <text>150-400 </text> </observationRange> </referenceRange> </ observation> </component> <component> <observation moodCode= "EVN" classCode="OBS"> <templateId root="16.840.1.226813.07.02.22.4.2 " /> <id nullFlavor="NA" /> <code codeSystem="local" code="IG& #37;" displayName="IMMATURE GRANULOCYTE %" /> <statusCode code= "completed" /> <effectiveTime value="398591344387" /> <value unit="%" xsi:type="PQ" value="0.7" /> <interpretationCode codeSystem="local" code="*" /> <referenceRange> < observationRange> <text>0.0-0.6</text> </ observationRange> </referenceRange> </observation> </ component> <component> <observation moodCode="EVN" classCode="OBS"> <templateId root="10.29.840.1.854429.10..4.2" /> <id nullFlavor="NA" /> <code codeSystem="local" code="IG#" displayName= "IMMATURE GRANULOCYTE #" /> <statusCode code="completed" /> < effectiveTime value="536108836352" /> <value unit="k/cumm" xsi:type="PQ " value="0.04" /> <referenceRange> <observationRange> <text>0.00-0.09</text> </observationRange> </ referenceRange> </observation> </component> <component> <observation moodCode="EVN" classCode="OBS"> <templateId root= "10.29.840.1.036563.10.2022.4.2" /> <id nullFlavor="NA" /> < code codeSystem="local" code="IPFT" displayName="IMMATURE PLATELET FRACTION" /> <statusCode code="completed" /> <effectiveTime value= "871215029342" /> <value unit="%" xsi:type="PQ" value="5.6" /> <referenceRange> <observationRange> <text>1.1-6.1< /text> </observationRange> </referenceRange> </ observation> </component> </organizer> </entry> <entry> <organizer moodCode="EVN" classCode="BATTERY"> <templateId root= "10.29.840.1.328414.10.20.22.4.1" /> <id nullFlavor="NA" /> <code codeSystem="local" code="METABC" displayName="METABOLIC PANEL, COMPREHN" /> <statusCode code="completed" /> <component> <observation moodCode= "EVN" classCode="OBS"> <templateId root="10.29.840.1.727356.10.20.22.4.2 " /> <id nullFlavor="NA" /> <code codeSystem="local" code="K" displayName="POTASSIUM" /> <statusCode code="completed" /> < effectiveTime value="317659032521" /> <value unit="mmol/L" xsi:type="PQ " value="3.8" /> <referenceRange> <observationRange> <text>3.5-5.3</text> </observationRange> </ referenceRange> </observation> </component> <component> <observation moodCode="EVN" classCode="OBS"> <templateId root= "216.840.1.180645.10..4.2" /> <id nullFlavor="NA" /> < code codeSystem="local" code="eGFR" displayName="EST GFR (MDRD)" /> < statusCode code="completed" /> <effectiveTime value="" /> <value unit="mL/min" xsi:type="PQ" value="> 60" /> < referenceRange> <observationRange> <text>> 59</text> </observationRange> </referenceRange> </observation > </component> <component> <observation moodCode="EVN" classCode="OBS"> <templateId root="10.29.840.1.513265.07.02.22.4.2" /> <id nullFlavor="NA" /> <code codeSystem="local" code="GAP" displayName="ANION GAP" /> <statusCode code="completed" /> < effectiveTime value="" /> <value unit="mmol/L" xsi:type="PQ " value="13" /> <referenceRange> <observationRange> <text>5-15</text> </observationRange> </referenceRange > </observation> </component> <component> <observation moodCode="EVN" classCode="OBS"> <templateId root= "216.840.1.054986.10..4.2" /> <id nullFlavor="NA" /> < code codeSystem="local" code="eCrCl" displayName="EST CrCl (CG)" /> < statusCode code="completed" /> <effectiveTime value="" /> <value unit="mL/min" xsi:type="PQ" value="> 60" /> < referenceRange> <observationRange> <text>> 59</text> </observationRange> </referenceRange> </observation > </component> <component> <observation moodCode="EVN" classCode="OBS"> <templateId root="10.29.840.1.967109.10.20.22.4.2" /> <id nullFlavor="NA" /> <code codeSystem="local" code="GLU" displayName="GLUCOSE" /> <statusCode code="completed" /> < effectiveTime value="659954413206" /> <value unit="mg/dL" xsi:type="PQ " value="109" /> <interpretationCode codeSystem="local" code="*" /> <referenceRange> <observationRange> <text>70-99</ text> </observationRange> </referenceRange> </ observation> </component> <component> <observation moodCode= "EVN" classCode="OBS"> <templateId root="10.29.840.1.603553...4.2 " /> <id nullFlavor="NA" /> <code codeSystem="local" code="CA " displayName="CALCIUM" /> <statusCode code="completed" /> < effectiveTime value="543628759112" /> <value unit="mg/dL" xsi:type="PQ " value="8.3" /> <interpretationCode codeSystem="local" code="*" /> <referenceRange> <observationRange> <text>8.5- 10.1</text> </observationRange> </referenceRange> </ observation> </component> <component> <observation moodCode= "EVN" classCode="OBS"> <templateId root="10.29.840.1.287607.10..22.4.2 " /> <id nullFlavor="NA" /> <code codeSystem="local" code="BUN " displayName="BLOOD UREA NITROGEN" /> <statusCode code="completed" /> <effectiveTime value="586530798628" /> <value unit="mg/dL" xsi:type="PQ" value="14" /> <referenceRange> < observationRange> <text>7-20</text> </observationRange> </referenceRange> </observation> </component> < component> <observation moodCode="EVN" classCode="OBS"> < templateId root="2.16.840.1.824810.10..22.4.2" /> <id nullFlavor="NA " /> <code codeSystem="local" code="CREAT" displayName="CREATININE" /> <statusCode code="completed" /> <effectiveTime value= "530821168749" /> <value unit="mg/dL" xsi:type="PQ" value="1.0" /> <referenceRange> <observationRange> <text>0.7-1.3< /text> </observationRange> </referenceRange> </ observation> </component> <component> <observation moodCode= "EVN" classCode="OBS"> <templateId root="2.16.840.1.287011.10..22.4.2 " /> <id nullFlavor="NA" /> <code codeSystem="local" code="NA " displayName="SODIUM" /> <statusCode code="completed" /> < effectiveTime value="519104556851" /> <value unit="mmol/L" xsi:type="PQ " value="144" /> <referenceRange> <observationRange> <text>135-148</text> </observationRange> </ referenceRange> </observation> </component> <component> <observation moodCode="EVN" classCode="OBS"> <templateId root= "216.840.1.308908.10.22.4.2" /> <id nullFlavor="NA" /> < code codeSystem="local" code="CL" displayName="CHLORIDE" /> < statusCode code="completed" /> <effectiveTime value="142952169733" /> <value unit="mmol/L" xsi:type="PQ" value="107" /> < referenceRange> <observationRange> <text>98-110</text> </observationRange> </referenceRange> </observation> </component> <component> <observation moodCode="EVN" classCode ="OBS"> <templateId root="216.840.1.249898.10..4.2" /> < id nullFlavor="NA" /> <code codeSystem="local" code="AST" displayName= "AST/SGOT" /> <statusCode code="completed" /> <effectiveTime value="183402242060" /> <value unit="Units/L" xsi:type="PQ" value="68" /> <interpretationCode codeSystem="local" code="*" /> < referenceRange> <observationRange> <text>10-37</text> </observationRange> </referenceRange> </observation> </component> <component> <observation moodCode="EVN" classCode= "OBS"> <templateId root="10.29.840.1.067338.10...4.2" /> < id nullFlavor="NA" /> <code codeSystem="local" code="ALT" displayName= "ALT/SGPT" /> <statusCode code="completed" /> <effectiveTime value="494139840100" /> <value unit="Units/L" xsi:type="PQ" value="62" /> <referenceRange> <observationRange> <text>& lt; 66</text> </observationRange> </referenceRange> < /observation> </component> <component> <observation moodCode= "EVN" classCode="OBS"> <templateId root="216.840.1.801432.10..4.2 " /> <id nullFlavor="NA" /> <code codeSystem="local" code="CO2 " displayName="CARBON DIOXIDE" /> <statusCode code="completed" /> <effectiveTime value="" /> <value unit="mmol/L" xsi: type="PQ" value="24" /> <referenceRange> <observationRange> <text>21-32</text> </observationRange> </ referenceRange> </observation> </component> <component> <observation moodCode="EVN" classCode="OBS"> <templateId root= "10.29.840.1.089305.07.02.22.4.2" /> <id nullFlavor="NA" /> < code codeSystem="local" code="TP" displayName="TOTAL PROTEIN" /> < statusCode code="completed" /> <effectiveTime value="" /> <value unit="gm/dL" xsi:type="PQ" value="7.1" /> < referenceRange> <observationRange> <text>6.4-8.2</text> </observationRange> </referenceRange> </observation > </component> <component> <observation moodCode="EVN" classCode="OBS"> <templateId root="16.840.1.108163.22.4.2" /> <id nullFlavor="NA" /> <code codeSystem="local" code="ALB" displayName="ALBUMIN" /> <statusCode code="completed" /> < effectiveTime value="" /> <value unit="gm/dL" xsi:type="PQ " value="3.1" /> <interpretationCode codeSystem="local" code="*" /> <referenceRange> <observationRange> <text>3.4-5.0 </text> </observationRange> </referenceRange> </ observation> </component> <component> <observation moodCode= "EVN" classCode="OBS"> <templateId root="2.16.840.1.005698.07.02.22.4.2 " /> <id nullFlavor="NA" /> <code codeSystem="local" code= "BILTOT" displayName="BILI TOTAL" /> <statusCode code="completed" /> <effectiveTime value="469184592432" /> <value unit="mg/dL" xsi: type="PQ" value="0.6" /> <referenceRange> <observationRange > <text>0.0-1.0</text> </observationRange> </ referenceRange> </observation> </component> <component> <observation moodCode="EVN" classCode="OBS"> <templateId root= "2.16.840.1.893095.07.02.22.4.2" /> <id nullFlavor="NA" /> < code codeSystem="local" code="ALKP" displayName="ALKALINE PHOSPHATASE TOTAL" /> <statusCode code="completed" /> <effectiveTime value= "931131172458" /> <value unit="IU/L" xsi:type="PQ" value="143" /> <interpretationCode codeSystem="local" code="*" /> <referenceRange > <observationRange> <text>45-117</text> </ observationRange> </referenceRange> </observation> </ component> </organizer> </entry> <entry> <organizer moodCode="EVN" classCode="BATTERY"> <templateId root="2.16840.1.345009.07.02.22.4.1" /> <id nullFlavor="NA" /> <code codeSystem="local" code="LACTG" displayName="LACTIC ACID" /> <statusCode code="completed" /> < component> <observation moodCode="EVN" classCode="OBS"> < templateId root="840.1.206723.07.02.22.4.2" /> <id nullFlavor="NA " /> <code codeSystem="local" code="LACT" displayName="LACTIC ACID" /> <statusCode code="completed" /> <effectiveTime value= "" /> <value unit="mmol/L" xsi:type="PQ" value="2.5" /> <interpretationCode codeSystem="local" code="*" /> < referenceRange> <observationRange> <text>0.5-2.0</text> </observationRange> </referenceRange> </observation > </component> </organizer> </entry> <entry> <organizer moodCode= "EVN" classCode="BATTERY"> <templateId root="840.1.908594.07.02.22.4.1 " /> <id nullFlavor="NA" /> <code codeSystem="local" code="CBCD" displayName="CBC W/DIFF" /> <statusCode code="completed" /> <component > <observation moodCode="EVN" classCode="OBS"> <templateId root= "840.1.468442.07.02.22.4.2" /> <id nullFlavor="NA" /> < code codeSystem="local" code="BA#" displayName="BASOPHIL #" /> < statusCode code="completed" /> <effectiveTime value="" /> <value unit="k/cumm" xsi:type="PQ" value="0.0" /> < referenceRange> <observationRange> <text>0.0-0.2</text> </observationRange> </referenceRange> </observation > </component> <component> <observation moodCode="EVN" classCode="OBS"> <templateId root="10.29.840.1.655928.10.20.22.4.2" /> <id nullFlavor="NA" /> <code codeSystem="local" code="BA% " displayName="BASOPHIL %" /> <statusCode code="completed" /> <effectiveTime value="" /> <value unit="%" xsi: type="PQ" value="0.4" /> <referenceRange> <observationRange > <text>0-1</text> </observationRange> </ referenceRange> </observation> </component> <component> <observation moodCode="EVN" classCode="OBS"> <templateId root= "10.29.840.1.117459.10..4.2" /> <id nullFlavor="NA" /> < code codeSystem="local" code="EO#" displayName="EOSINOPHIL #" /> < statusCode code="completed" /> <effectiveTime value="565230056713" /> <value unit="k/cumm" xsi:type="PQ" value="1.2" /> < interpretationCode codeSystem="local" code="*" /> <referenceRange> <observationRange> <text>0.1-0.5</text> </ observationRange> </referenceRange> </observation> </ component> <component> <observation moodCode="EVN" classCode="OBS"> <templateId root="10.29.840.1.554384.10..22.4.2" /> <id nullFlavor="NA" /> <code codeSystem="local" code="EO%" displayName= "EOSINOPHIL %" /> <statusCode code="completed" /> < effectiveTime value="" /> <value unit="%" xsi:type="PQ " value="12.9" /> <interpretationCode codeSystem="local" code="*" /> <referenceRange> <observationRange> <text>2-4</ text> </observationRange> </referenceRange> </ observation> </component> <component> <observation moodCode= "EVN" classCode="OBS"> <templateId root="2.16.840.1.890861.10..4.2 " /> <id nullFlavor="NA" /> <code codeSystem="local" code="GR# " displayName="GRANULOCYTE #" /> <statusCode code="completed" /> <effectiveTime value="" /> <value unit="k/cumm" xsi: type="PQ" value="5.9" /> <referenceRange> <observationRange > <text>2.0-9.0</text> </observationRange> </ referenceRange> </observation> </component> <component> <observation moodCode="EVN" classCode="OBS"> <templateId root= "2.16.840.1.683962.10.2022.4.2" /> <id nullFlavor="NA" /> < code codeSystem="local" code="GR%" displayName="GRANULOCYTE %" /> <statusCode code="completed" /> <effectiveTime value=" " /> <value unit="%" xsi:type="PQ" value="66.0" /> < referenceRange> <observationRange> <text>50-75</text> </observationRange> </referenceRange> </observation> </component> <component> <observation moodCode="EVN" classCode= "OBS"> <templateId root="216.840.1.090928.10..4.2" /> < id nullFlavor="NA" /> <code codeSystem="local" code="LY#" displayName= "LYMPHOCYTE #" /> <statusCode code="completed" /> < effectiveTime value="" /> <value unit="k/cumm" xsi:type="PQ " value="1.3" /> <referenceRange> <observationRange> <text>1.0-4.0</text> </observationRange> </ referenceRange> </observation> </component> <component> <observation moodCode="EVN" classCode="OBS"> <templateId root= "10.29.840.1.306001.07.02.224.2" /> <id nullFlavor="NA" /> < code codeSystem="local" code="LY%" displayName="LYMPHOCYTE %" /> <statusCode code="completed" /> <effectiveTime value="" /> <value unit="%" xsi:type="PQ" value="14.4" /> < interpretationCode codeSystem="local" code="*" /> <referenceRange> <observationRange> <text>20-30</text> </ observationRange> </referenceRange> </observation> </ component> <component> <observation moodCode="EVN" classCode="OBS"> <templateId root="10.29.840.1.204486.104.2" /> <id nullFlavor="NA" /> <code codeSystem="local" code="MCH" displayName= "MEAN CELL HGB" /> <statusCode code="completed" /> < effectiveTime value="" /> <value unit="pg" xsi:type="PQ" value="28.8" /> <referenceRange> <observationRange> <text>27.0-33.0</text> </observationRange> </ referenceRange> </observation> </component> <component> <observation moodCode="EVN" classCode="OBS"> <templateId root= "216.840.1.680656.10..22.4.2" /> <id nullFlavor="NA" /> < code codeSystem="local" code="MCHC" displayName="MEAN CELL HGB CONCENTRATION" / > <statusCode code="completed" /> <effectiveTime value= "" /> <value unit="g/dL" xsi:type="PQ" value="32.1" /> <referenceRange> <observationRange> <text>32.0- 37.0</text> </observationRange> </referenceRange> </ observation> </component> <component> <observation moodCode= "EVN" classCode="OBS"> <templateId root="10.29.840.1.179608.10...4.2 " /> <id nullFlavor="NA" /> <code codeSystem="local" code="MCV " displayName="MEAN CELL VOLUME" /> <statusCode code="completed" /> <effectiveTime value="" /> <value unit="fl" xsi:type ="PQ" value="89.7" /> <referenceRange> <observationRange> <text>80.0-100.0</text> </observationRange> </ referenceRange> </observation> </component> <component> <observation moodCode="EVN" classCode="OBS"> <templateId root= "216.840.1.752350.10..22.4.2" /> <id nullFlavor="NA" /> < code codeSystem="local" code="MO#" displayName="MONOCYTE #" /> < statusCode code="completed" /> <effectiveTime value="" /> <value unit="k/cumm" xsi:type="PQ" value="0.5" /> < referenceRange> <observationRange> <text>0.1-1.0</text> </observationRange> </referenceRange> </observation > </component> <component> <observation moodCode="EVN" classCode="OBS"> <templateId root="2.16.840.1.680710.10...4.2" /> <id nullFlavor="NA" /> <code codeSystem="local" code="MO% " displayName="MONOCYTE %" /> <statusCode code="completed" /> <effectiveTime value="" /> <value unit="%" xsi: type="PQ" value="5.6" /> <referenceRange> <observationRange > <text>4-6</text> </observationRange> </ referenceRange> </observation> </component> <component> <observation moodCode="EVN" classCode="OBS"> <templateId root= "2.16.840.1.959463.10...4.2" /> <id nullFlavor="NA" /> < code codeSystem="local" code="MPVT" displayName="MEAN PLATELET VOLUME" /> <statusCode code="completed" /> <effectiveTime value=" " /> <value unit="fl" xsi:type="PQ" value="11.5" /> < interpretationCode codeSystem="local" code="*" /> <referenceRange> <observationRange> <text>8.5-10.9</text> </ observationRange> </referenceRange> </observation> </ component> <component> <observation moodCode="EVN" classCode="OBS"> <templateId root="216.840.1.979335.10...4.2" /> <id nullFlavor="NA" /> <code codeSystem="local" code="RBC" displayName=" RED BLOOD CELL" /> <statusCode code="completed" /> < effectiveTime value="" /> <value unit="m/cumm" xsi:type="PQ " value="4.45" /> <referenceRange> <observationRange> <text>4.00-6.00</text> </observationRange> </ referenceRange> </observation> </component> <component> <observation moodCode="EVN" classCode="OBS"> <templateId root= "216.840.1.814007.07.02.22.4.2" /> <id nullFlavor="NA" /> < code codeSystem="local" code="RDW" displayName="RED CELL DISTRIBUTION WIDTH" /> <statusCode code="completed" /> <effectiveTime value= "" /> <value unit="%" xsi:type="PQ" value="15.4" /> <referenceRange> <observationRange> <text>11.0- 15.6</text> </observationRange> </referenceRange> </ observation> </component> <component> <observation moodCode= "EVN" classCode="OBS"> <templateId root="16.840.1.353326.10...4.2 " /> <id nullFlavor="NA" /> <code codeSystem="local" code="WBC " displayName="WHITE BLOOD CELL" /> <statusCode code="completed" /> <effectiveTime value="" /> <value unit="k/cumm" xsi: type="PQ" value="8.9" /> <referenceRange> <observationRange > <text>5.0-10.0</text> </observationRange> </ referenceRange> </observation> </component> <component> <observation moodCode="EVN" classCode="OBS"> <templateId root= "216.840.1.437728.10...4.2" /> <id nullFlavor="NA" /> < code codeSystem="local" code="HGBT" displayName="HEMOGLOBIN" /> < statusCode code="completed" /> <effectiveTime value="[id number]" /> <value unit="gm/dL" xsi:type="PQ" value="12.8" /> < interpretationCode codeSystem="local" code="*" /> <referenceRange> <observationRange> <text>14.0-18.0</text> </ observationRange> </referenceRange> </observation> </ component> <component> <observation moodCode="EVN" classCode="OBS"> <templateId root="10.29.840.1.463794.10...4.2" /> <id nullFlavor="NA" /> <code codeSystem="local" code="HCTT" displayName= "HEMATOCRIT" /> <statusCode code="completed" /> < effectiveTime value="683515889656" /> <value unit="%" xsi:type="PQ " value="39.9" /> <interpretationCode codeSystem="local" code="*" /> <referenceRange> <observationRange> <text>40.0- 54.0</text> </observationRange> </referenceRange> </ observation> </component> <component> <observation moodCode= "EVN" classCode="OBS"> <templateId root="216.840.1.282964.4.2 " /> <id nullFlavor="NA" /> <code codeSystem="local" code= "NRBC%" displayName="NRBC %" /> <statusCode code="completed" / > <effectiveTime value="" /> <value unit="/100WBC " xsi:type="PQ" value="0.2" /> <interpretationCode codeSystem="local" code="*" /> <referenceRange> <observationRange> <text>0.0-0.0</text> </observationRange> </referenceRange > </observation> </component> <component> <observation moodCode="EVN" classCode="OBS"> <templateId root= "216.840.1.208706.07.02.224.2" /> <id nullFlavor="NA" /> < code codeSystem="local" code="PLTT" displayName="PLATELET COUNT" /> < statusCode code="completed" /> <effectiveTime value="" /> <value unit="k/cumm" xsi:type="PQ" value="126" /> < interpretationCode codeSystem="local" code="*" /> <referenceRange> <observationRange> <text>150-400</text> </ observationRange> </referenceRange> </observation> </ component> <component> <observation moodCode="EVN" classCode="OBS"> <templateId root="16.840.1.092687.104.2" /> <id nullFlavor="NA" /> <code codeSystem="local" code="IG%" displayName= "IMMATURE GRANULOCYTE %" /> <statusCode code="completed" /> <effectiveTime value="" /> <value unit="%" xsi:type= "PQ" value="0.7" /> <interpretationCode codeSystem="local" code="*" /> <referenceRange> <observationRange> <text>0.0- 0.6</text> </observationRange> </referenceRange> </ observation> </component> <component> <observation moodCode= "EVN" classCode="OBS"> <templateId root="216.840.1.273418.10...4.2 " /> <id nullFlavor="NA" /> <code codeSystem="local" code="IG# " displayName="IMMATURE GRANULOCYTE #" /> <statusCode code="completed" /> <effectiveTime value="770739600124" /> <value unit="k/cumm " xsi:type="PQ" value="0.06" /> <referenceRange> < observationRange> <text>0.00-0.09</text> </ observationRange> </referenceRange> </observation> </ component> <component> <observation moodCode="EVN" classCode="OBS"> <templateId root="216.840.1.009500.10..4.2" /> <id nullFlavor="NA" /> <code codeSystem="local" code="IPFT" displayName= "IMMATURE PLATELET FRACTION" /> <statusCode code="completed" /> <effectiveTime value="027208811136" /> <value unit="%" xsi:type= "PQ" value="6.8" /> <interpretationCode codeSystem="local" code="*" /> <referenceRange> <observationRange> <text>1.1- 6.1</text> </observationRange> </referenceRange> </ observation> </component> </organizer> </entry> <entry> <organizer moodCode="EVN" classCode="BATTERY"> <templateId root= "216.840.1.623520.07.02.22.4.1" /> <id nullFlavor="NA" /> <code codeSystem="local" code="METABC" displayName="METABOLIC PANEL, COMPREHN" /> <statusCode code="completed" /> <component> <observation moodCode= "EVN" classCode="OBS"> <templateId root="10.29.840.1.817254.07.02.22.4.2 " /> <id nullFlavor="NA" /> <code codeSystem="local" code="K" displayName="POTASSIUM" /> <statusCode code="completed" /> < effectiveTime value="242694265957" /> <value unit="mmol/L" xsi:type="PQ " value="4.1" /> <referenceRange> <observationRange> <text>3.5-5.3</text> </observationRange> </ referenceRange> </observation> </component> <component> <observation moodCode="EVN" classCode="OBS"> <templateId root= "840.1.468610.07.02.22.4.2" /> <id nullFlavor="NA" /> < code codeSystem="local" code="eGFR" displayName="EST GFR (MDRD)" /> < statusCode code="completed" /> <effectiveTime value="618890710362" /> <value unit="mL/min" xsi:type="PQ" value="59" /> < interpretationCode codeSystem="local" code="*" /> <referenceRange> <observationRange> <text>> 59</text> </ observationRange> </referenceRange> </observation> </ component> <component> <observation moodCode="EVN" classCode="OBS"> <templateId root="840.1.708018.10...4.2" /> <id nullFlavor="NA" /> <code codeSystem="local" code="GAP" displayName= "ANION GAP" /> <statusCode code="completed" /> <effectiveTime value="455962884044" /> <value unit="mmol/L" xsi:type="PQ" value="12" / > <referenceRange> <observationRange> <text>5- 15</text> </observationRange> </referenceRange> </ observation> </component> <component> <observation moodCode= "EVN" classCode="OBS"> <templateId root="2.16.840.1.544827.10..22.4.2 " /> <id nullFlavor="NA" /> <code codeSystem="local" code= "eCrCl" displayName="EST CrCl (CG)" /> <statusCode code="completed" /> <effectiveTime value="216258236586" /> <value unit="mL/min" xsi:type="PQ" value="> 60" /> <referenceRange> < observationRange> <text>> 59</text> </ observationRange> </referenceRange> </observation> </ component> <component> <observation moodCode="EVN" classCode="OBS"> <templateId root="2.16.840.1.920651.10..22.4.2" /> <id nullFlavor="NA" /> <code codeSystem="local" code="GLU" displayName= "GLUCOSE" /> <statusCode code="completed" /> <effectiveTime value="901592439327" /> <value unit="mg/dL" xsi:type="PQ" value="121" / > <interpretationCode codeSystem="local" code="*" /> < referenceRange> <observationRange> <text>70-99</text> </observationRange> </referenceRange> </observation> </component> <component> <observation moodCode="EVN" classCode= "OBS"> <templateId root="216.840.1.540780.10..22.4.2" /> < id nullFlavor="NA" /> <code codeSystem="local" code="CA" displayName= "CALCIUM" /> <statusCode code="completed" /> <effectiveTime value="630306100625" /> <value unit="mg/dL" xsi:type="PQ" value="8.6" / > <referenceRange> <observationRange> <text>8.5 -10.1</text> </observationRange> </referenceRange> </ observation> </component> <component> <observation moodCode= "EVN" classCode="OBS"> <templateId root="16.840.1.582898.10..22.4.2 " /> <id nullFlavor="NA" /> <code codeSystem="local" code="BUN " displayName="BLOOD UREA NITROGEN" /> <statusCode code="completed" /> <effectiveTime value="906160878442" /> <value unit="mg/dL" xsi:type="PQ" value="18" /> <referenceRange> < observationRange> <text>7-20</text> </observationRange> </referenceRange> </observation> </component> < component> <observation moodCode="EVN" classCode="OBS"> < templateId root="16.840.1.721648.10..22.4.2" /> <id nullFlavor="NA " /> <code codeSystem="local" code="CREAT" displayName="CREATININE" /> <statusCode code="completed" /> <effectiveTime value= "979059330349" /> <value unit="mg/dL" xsi:type="PQ" value="1.3" /> <referenceRange> <observationRange> <text>0.7-1.3< /text> </observationRange> </referenceRange> </ observation> </component> <component> <observation moodCode= "EVN" classCode="OBS"> <templateId root="216.840.1.190231.10.22.4.2 " /> <id nullFlavor="NA" /> <code codeSystem="local" code="NA " displayName="SODIUM" /> <statusCode code="completed" /> < effectiveTime value="" /> <value unit="mmol/L" xsi:type="PQ " value="141" /> <referenceRange> <observationRange> <text>135-148</text> </observationRange> </ referenceRange> </observation> </component> <component> <observation moodCode="EVN" classCode="OBS"> <templateId root= "2.840.1.155050.07.02.22.4.2" /> <id nullFlavor="NA" /> < code codeSystem="local" code="CL" displayName="CHLORIDE" /> < statusCode code="completed" /> <effectiveTime value="" /> <value unit="mmol/L" xsi:type="PQ" value="106" /> < referenceRange> <observationRange> <text>98-110</text> </observationRange> </referenceRange> </observation> </component> <component> <observation moodCode="EVN" classCode ="OBS"> <templateId root="216.840.1.776827.10.22.4.2" /> < id nullFlavor="NA" /> <code codeSystem="local" code="AST" displayName= "AST/SGOT" /> <statusCode code="completed" /> <effectiveTime value="" /> <value unit="Units/L" xsi:type="PQ" value="55" /> <interpretationCode codeSystem="local" code="*" /> < referenceRange> <observationRange> <text>10-37</text> </observationRange> </referenceRange> </observation> </component> <component> <observation moodCode="EVN" classCode= "OBS"> <templateId root="10.29.840.1.314195.10.4.2" /> < id nullFlavor="NA" /> <code codeSystem="local" code="ALT" displayName= "ALT/SGPT" /> <statusCode code="completed" /> <effectiveTime value="311403720026" /> <value unit="Units/L" xsi:type="PQ" value="53" /> <referenceRange> <observationRange> <text>& lt; 66</text> </observationRange> </referenceRange> < /observation> </component> <component> <observation moodCode= "EVN" classCode="OBS"> <templateId root="840.1.643556.07.02.22.4.2 " /> <id nullFlavor="NA" /> <code codeSystem="local" code="CO2 " displayName="CARBON DIOXIDE" /> <statusCode code="completed" /> <effectiveTime value="500899389736" /> <value unit="mmol/L" xsi: type="PQ" value="23" /> <referenceRange> <observationRange> <text>21-32</text> </observationRange> </ referenceRange> </observation> </component> <component> <observation moodCode="EVN" classCode="OBS"> <templateId root= "10.29.840.1.135038.10.22.4.2" /> <id nullFlavor="NA" /> < code codeSystem="local" code="TP" displayName="TOTAL PROTEIN" /> < statusCode code="completed" /> <effectiveTime value="273230380024" /> <value unit="gm/dL" xsi:type="PQ" value="7.6" /> < referenceRange> <observationRange> <text>6.4-8.2</text> </observationRange> </referenceRange> </observation > </component> <component> <observation moodCode="EVN" classCode="OBS"> <templateId root="16.840.1.025017.10.20.22.4.2" /> <id nullFlavor="NA" /> <code codeSystem="local" code="ALB" displayName="ALBUMIN" /> <statusCode code="completed" /> < effectiveTime value="623939180180" /> <value unit="gm/dL" xsi:type="PQ " value="3.3" /> <interpretationCode codeSystem="local" code="*" /> <referenceRange> <observationRange> <text>3.4-5.0 </text> </observationRange> </referenceRange> </ observation> </component> <component> <observation moodCode= "EVN" classCode="OBS"> <templateId root="16.840.1.771586.10.20.22.4.2 " /> <id nullFlavor="NA" /> <code codeSystem="local" code= "BILTOT" displayName="BILI TOTAL" /> <statusCode code="completed" /> <effectiveTime value="679744911317" /> <value unit="mg/dL" xsi: type="PQ" value="0.6" /> <referenceRange> <observationRange > <text>0.0-1.0</text> </observationRange> </ referenceRange> </observation> </component> <component> <observation moodCode="EVN" classCode="OBS"> <templateId root= "2.16.840.1.932258.10.20.22.4.2" /> <id nullFlavor="NA" /> < code codeSystem="local" code="ALKP" displayName="ALKALINE PHOSPHATASE TOTAL" /> <statusCode code="completed" /> <effectiveTime value= "063456530809" /> <value unit="IU/L" xsi:type="PQ" value="132" /> <interpretationCode codeSystem="local" code="*" /> <referenceRange > <observationRange> <text>45-117</text> </ observationRange> </referenceRange> </observation> </ component> </organizer> </entry> <entry> <organizer moodCode="EVN" classCode="BATTERY"> <templateId root="2.16.840.1.023939.10.20.22.4.1" /> <id nullFlavor="NA" /> <code codeSystem="local" code="BC" displayName= "BLOOD CULTURE" /> <statusCode code="completed" /> <component> <observation moodCode="EVN" classCode="OBS"> <templateId root= "2.16.840.1.213365.10.20.22.4.2" /> <id nullFlavor="NA" /> < code codeSystem="local" code="MB" displayName="Microbiology" /> < statusCode code="completed" /> <effectiveTime value="349141512284" /> <value xsi:type="ST" value="<pre><b>BLOOD CULTURE</b> See BelowIs this a Possible Sepsis/Sepsis patient? YesBLOOD CULTURE(F) Alicia Date/ Time: 10/12/2017 23:59 Mitzy Date/Time: 10/18/2017 10:10SOURCE: BLOODSPEC DESC: [id number] [facility] [place] [address]</pre>" /> <referenceRange > <observationRange> <text /> </ observationRange> </referenceRange> </observation> </ component> </organizer> </entry> <entry> <organizer moodCode="EVN" classCode="BATTERY"> <templateId root="16.840.1.501122.10..22.4.1" /> <id nullFlavor="NA" /> <code codeSystem="local" code="ABG" displayName ="ARTERIAL BLOOD GAS" /> <statusCode code="completed" /> <component> <observation moodCode="EVN" classCode="OBS"> <templateId root= "10.29.840.1.401460.10..4.2" /> <id nullFlavor="NA" /> < code codeSystem="local" code="VIMAL" displayName="ABG BASE EXCESS" /> < statusCode code="completed" /> <effectiveTime value="308069034664" /> <value unit="meq/L" xsi:type="PQ" value="-3.5" /> < interpretationCode codeSystem="local" code="*" /> <referenceRange> <observationRange> <text>-3.0-3.0</text> </ observationRange> </referenceRange> </observation> </ component> <component> <observation moodCode="EVN" classCode="OBS"> <templateId root="10.29.840.1.787119.10...4.2" /> <id nullFlavor="NA" /> <code codeSystem="local" code="PAUL" displayName= "ABG DEVICE" /> <statusCode code="completed" /> < effectiveTime value="156183788397" /> <value unit="" xsi:type="PQ" value="NC" /> <referenceRange> <observationRange> <text /> </observationRange> </referenceRange> </ observation> </component> <component> <observation moodCode= "EVN" classCode="OBS"> <templateId root="216.840.1.951313.10.22.4.2 " /> <id nullFlavor="NA" /> <code codeSystem="local" code= "HCO3A" displayName="ABG BICARBONATE" /> <statusCode code="completed" / > <effectiveTime value="" /> <value unit="meq/L" xsi:type="PQ" value="19.8" /> <interpretationCode codeSystem="local" code="*" /> <referenceRange> <observationRange> <text>23.0-28.0</text> </observationRange> </ referenceRange> </observation> </component> <component> <observation moodCode="EVN" classCode="OBS"> <templateId root= "216.840.1.005042.07.02.22.4.2" /> <id nullFlavor="NA" /> < code codeSystem="local" code="L/MA" displayName="ABG L/M" /> < statusCode code="completed" /> <effectiveTime value="" /> <value unit="" xsi:type="PQ" value="4.0" /> <referenceRange> <observationRange> <text /> </ observationRange> </referenceRange> </observation> </ component> <component> <observation moodCode="EVN" classCode="OBS"> <templateId root="216.840.1.183050.10..4.2" /> <id nullFlavor="NA" /> <code codeSystem="local" code="PCO2A" displayName= "ABG PCO2" /> <statusCode code="completed" /> <effectiveTime value="" /> <value unit="mmHg" xsi:type="PQ" value="31" /> <interpretationCode codeSystem="local" code="*" /> < referenceRange> <observationRange> <text>34-45</text> </observationRange> </referenceRange> </observation> </component> <component> <observation moodCode="EVN" classCode= "OBS"> <templateId root="16.840.1.004695.10..22.4.2" /> < id nullFlavor="NA" /> <code codeSystem="local" code="PHAX" displayName= "ABG PH" /> <statusCode code="completed" /> <effectiveTime value="330053793399" /> <value unit="" xsi:type="PQ" value="7.43" /> <referenceRange> <observationRange> <text>7.35- 7.45</text> </observationRange> </referenceRange> </ observation> </component> <component> <observation moodCode= "EVN" classCode="OBS"> <templateId root="10.29.840.1.820765.10..4.2 " /> <id nullFlavor="NA" /> <code codeSystem="local" code= "PO2A" displayName="ABG PO2" /> <statusCode code="completed" /> <effectiveTime value="012760954849" /> <value unit="mmHg" xsi:type= "PQ" value="68" /> <interpretationCode codeSystem="local" code="*" /> <referenceRange> <observationRange> <text>75- 100</text> </observationRange> </referenceRange> </ observation> </component> <component> <observation moodCode= "EVN" classCode="OBS"> <templateId root="10.29.840.1.000566.10..22.4.2 " /> <id nullFlavor="NA" /> <code codeSystem="local" code= "SATA" displayName="ABG O2 SATURATION" /> <statusCode code="completed" /> <effectiveTime value="247219616206" /> <value unit="%" xsi:type="PQ" value="93" /> <referenceRange> < observationRange> <text>93-100</text> </observationRange > </referenceRange> </observation> </component> </ organizer> </entry> <entry> <organizer moodCode="EVN" classCode="BATTERY"> <templateId root="2.16.840.1.104209.10..22.4.1" /> <id nullFlavor= "NA" /> <code codeSystem="local" code="BC" displayName="BLOOD CULTURE" /> <statusCode code="completed" /> <component> <observation moodCode="EVN" classCode="OBS"> <templateId root= "2.16.840.1.981872.10.20.22.4.2" /> <id nullFlavor="NA" /> < code codeSystem="local" code="MB" displayName="Microbiology" /> < statusCode code="completed" /> <effectiveTime value="976759603346" /> <value xsi:type="ST" value="<pre><b>BLOOD CULTURE</b> See BelowIs this a Possible Sepsis/Sepsis patient? YesBLOOD CULTURE(F) Alicia Date/ Time: 10/13/2017 00:33 Mitzy Date/Time: 10/18/2017 10:38SOURCE: BLOODSPEC DESC: [id number] [facility] [facility] [place] [address]</pre>" /> <referenceRange > <observationRange> <text /> </ observationRange> </referenceRange> </observation> </ component> </organizer> </entry> <entry> <organizer moodCode="EVN" classCode="BATTERY"> <templateId root="2.16.840.1.107988.10..4.1" /> <id nullFlavor="NA" /> <code codeSystem="local" code="MISCL" displayName="LABORATORY MISCELLANEOUS TEST" /> <statusCode code="completed " /> <component> <observation moodCode="EVN" classCode="OBS"> <templateId root="216.840.1.016951.07.02.22.4.2" /> <id nullFlavor ="NA" /> <code codeSystem="local" code="MISCLAB" displayName= "PERFORMING LAB" /> <statusCode code="completed" /> < effectiveTime value="" /> <value unit="" xsi:type="PQ" value="[facility]" /> <referenceRange> < observationRange> <text /> </observationRange> </referenceRange> </observation> </component> <component> <observation moodCode="EVN" classCode="OBS"> <templateId root= "216.840.1.118899.07.02.22.4.2" /> <id nullFlavor="NA" /> < code codeSystem="local" code="REFL" displayName="LABORATORY TEST REF RANGE" /> <statusCode code="completed" /> <effectiveTime value= "" /> <value unit="" xsi:type="PQ" value="< 80 pg/mL" / > <referenceRange> <observationRange> <text /> </observationRange> </referenceRange> </observation > </component> <component> <observation moodCode="EVN" classCode="OBS"> <templateId root="216.840.1.181476.07.02.22.4.2" /> <id nullFlavor="NA" /> <code codeSystem="local" code="RESULTL " displayName="LABORATORY TEST RESULT" /> <statusCode code="completed" /> <effectiveTime value="" /> <value unit="" xsi: type="PQ" value="38 pg/mL" /> <referenceRange> < observationRange> <text /> </observationRange> </referenceRange> </observation> </component> <component> <observation moodCode="EVN" classCode="OBS"> <templateId root= "10.29.840.1.552123.10..4.2" /> <id nullFlavor="NA" /> < code codeSystem="local" code="TESTL" displayName="LABORATORY TEST" /> < statusCode code="completed" /> <effectiveTime value="" /> <value unit="" xsi:type="PQ" value="FUNGITELL,SERUM" /> < referenceRange> <observationRange> <text /> < /observationRange> </referenceRange> </observation> </ component> </organizer> </entry> <entry> <organizer moodCode="EVN" classCode="BATTERY"> <templateId root="10.29.840.1.936695.10...4.1" /> <id nullFlavor="NA" /> <code codeSystem="local" code="VRP" displayName ="VIRUS RESPIRATORY PROFILE" /> <statusCode code="completed" /> < component> <observation moodCode="EVN" classCode="OBS"> < templateId root="10.29.840.1.004641.07.02.22.4.2" /> <id nullFlavor="NA " /> <code codeSystem="local" code="MB" displayName="Microbiology" /> <statusCode code="completed" /> <effectiveTime value= "[id number]" /> <value xsi:type="ST" value="<pre><b>RESPIRATORY PROFILE</b> See BelowRESPIRATORY PROFILE(F) Alicia Date/Time: 10/13/2017 02:12 Mitzy Date/Time: 10/13/2017 08:50SOURCE: NASOPHARYNGEALSPEC DESC: ADENOVIRUSNOT DETECTEDBORDETELLA PERTUSSISNOT DETECTEDCHLAMYDIA PNEUMONIAENOT DETECTEDCORONAVIRUS 229ENOT DETECTEDCORONAVIRUS HFL1ABR DETECTEDCORONAVIRUS QP63OXG DETECTEDCORONAVIRUS PD19GQZ DETECTEDHUMAN METAPNEUMOVIRUSNOT DETECTEDINFLUENZA A 2008 H1NOT DETECTEDINFLUENZA A H1NOT DETECTEDINFLUENZA A H3NOT DETECTEDINFLUENZA ANOT DETECTEDINFLUENZA BNOT DETECTEDMYCOPLASMA PNEUMONIAENOT DETECTEDPARAINFLUENZA 1NOT DETECTEDPARAINFLUENZA 2NOT DETECTEDPARAINFLUENZA 3NOT DETECTEDPARAINFLUENZA 4NOT DETECTEDRHINOVIRUS/ENTEROVIRUSNOT DETECTEDRSVNOT DETECTEDCHI OAKES [facility] [place] [address]</pre>" /> <referenceRange> <observationRange> <text /> </observationRange> </referenceRange> </observation> </component> </organizer > </entry> <entry> <organizer moodCode="EVN" classCode="BATTERY"> < templateId root="2.16.840.1.196700.10.20.22.4.1" /> <id nullFlavor="NA" /> <code codeSystem="local" code="FUNC" displayName="FUNGUS CULTURE" /> <statusCode code="completed" /> <component> <observation moodCode= "EVN" classCode="OBS"> <templateId root="2.16.840.1.305593.10.20.22.4.2 " /> <id nullFlavor="NA" /> <code codeSystem="local" code="MB " displayName="Microbiology" /> <statusCode code="completed" /> <effectiveTime value="[id number]" /> <value xsi:type="ST" value="< pre><b>FUNGUS CULTURE</b> See BelowFUNGUS CULTURE(F) Alciia Date/Time : 10/13/2017 02:14 Mitzy Date/Time: 11/12/2017 13: 11SOURCE: BLOODSPEC DESC: PERIPHERALNGFFNO FUNGUS ISOLATEDCHI OAKES HOSPITAL[address] [facility] [place] [address]</pre>" /> <referenceRange> <observationRange> <text /> </observationRange> </referenceRange> </observation> </component> </organizer > </entry> <entry> <organizer moodCode="EVN" classCode="BATTERY"> < templateId root="2.16.840.1.570307.10.20.22.4.1" /> <id nullFlavor="NA" /> <code codeSystem="local" code="LACTG" displayName="LACTIC ACID" /> < statusCode code="completed" /> <component> <observation moodCode= "EVN" classCode="OBS"> <templateId root="2.16.840.1.870743.10.20.22.4.2 " /> <id nullFlavor="NA" /> <code codeSystem="local" code= "LACT" displayName="LACTIC ACID" /> <statusCode code="completed" /> <effectiveTime value="[id number]" /> <value unit="mmol/L" xsi: type="PQ" value="2.3" /> <interpretationCode codeSystem="local" code="* " /> <referenceRange> <observationRange> <text> 0.5-2.0</text> </observationRange> </referenceRange> </observation> </component> </organizer> </entry> <entry> < organizer moodCode="EVN" classCode="BATTERY"> <templateId root= "2.16.840.1.302789.10.20.22.4.1" /> <id nullFlavor="NA" /> <code codeSystem="local" code="LACTG" displayName="LACTIC ACID" /> <statusCode code="completed" /> <component> <observation moodCode="EVN" classCode="OBS"> <templateId root="10.29.840.1.557494.10..22.4.2" /> <id nullFlavor="NA" /> <code codeSystem="local" code="LACT" displayName="LACTIC ACID" /> <statusCode code="completed" /> < effectiveTime value="[id number]" /> <value unit="mmol/L" xsi:type="PQ " value="3.8" /> <interpretationCode codeSystem="local" code="*" /> <referenceRange> <observationRange> <text>0.5-2.0 </text> </observationRange> </referenceRange> </ observation> </component> </organizer> </entry> <entry> <organizer moodCode="EVN" classCode="BATTERY"> <templateId root= "840.1.515583.10...4.1" /> <id nullFlavor="NA" /> <code codeSystem="local" code="LDH" displayName="LACTATE DEHYDROGENASE (LDH/LD)" /> <statusCode code="completed" /> <component> <observation moodCode="EVN" classCode="OBS"> <templateId root= "10.29.840.1.267710.10..22.4.2" /> <id nullFlavor="NA" /> < code codeSystem="local" code="LDH" displayName="LACTATE DEHYDROGENASE (LDH/LD)" /> <statusCode code="completed" /> <effectiveTime value= "[id number]" /> <value unit="Units/L" xsi:type="PQ" value="378" /> <interpretationCode codeSystem="local" code="*" /> < referenceRange> <observationRange> <text>81-234</text> </observationRange> </referenceRange> </observation> </component> </organizer> </entry> <entry> <organizer moodCode= "EVN" classCode="BATTERY"> <templateId root="10.29.840.1.304662.10..22.4.1 " /> <id nullFlavor="NA" /> <code codeSystem="local" code="CD48" displayName="CD4/8 RATIO" /> <statusCode code="completed" /> < component> <observation moodCode="EVN" classCode="OBS"> < templateId root="10.29.840.1.258455.10...4.2" /> <id nullFlavor="NA " /> <code codeSystem="local" code="[id number]" displayName="CD 3/4 POSITIVE" /> <statusCode code="completed" /> <effectiveTime value="830780159456" /> <value unit="%" xsi:type="PQ" value="5" /> <interpretationCode codeSystem="local" code="*" /> < referenceRange> <observationRange> <text>34-68</text> </observationRange> </referenceRange> </observation> </component> <component> <observation moodCode="EVN" classCode= "OBS"> <templateId root="10.29.840.1.084840.10..4.2" /> < id nullFlavor="NA" /> <code codeSystem="local" code="[id number]" displayName="CD 3/4 ABSOLUTE" /> <statusCode code="completed" /> <effectiveTime value="425169006429" /> <value unit="#" xsi:type="PQ " value="39" /> <interpretationCode codeSystem="local" code="*" /> <referenceRange> <observationRange> <text>250-2400 </text> </observationRange> </referenceRange> </ observation> </component> <component> <observation moodCode= "EVN" classCode="OBS"> <templateId root="2.840.1.181280.10.20.22.4.2 " /> <id nullFlavor="NA" /> <code codeSystem="local" code= "[id number]" displayName="CD 3/8 POSITIVE" /> <statusCode code="completed " /> <effectiveTime value="924399855410" /> <value unit="% " xsi:type="PQ" value="77" /> <interpretationCode codeSystem="local" code="*" /> <referenceRange> <observationRange> <text>6-41</text> </observationRange> </referenceRange> </observation> </component> <component> <observation moodCode="EVN" classCode="OBS"> <templateId root= "10.29.840.1.950694.10..4.2" /> <id nullFlavor="NA" /> < code codeSystem="local" code="[id number]" displayName="CD 3/8 ABSOLUTE" /> <statusCode code="completed" /> <effectiveTime value="424956712612" / > <value unit="#" xsi:type="PQ" value="602" /> <referenceRange > <observationRange> <text>150-1800</text> </ observationRange> </referenceRange> </observation> </ component> <component> <observation moodCode="EVN" classCode="OBS"> <templateId root="16.840.1.594392.10.20.22.4.2" /> <id nullFlavor="NA" /> <code codeSystem="local" code="[id number]" displayName="CD 4/8 RATIO" /> <statusCode code="completed" /> <effectiveTime value="652642747013" /> <value unit="" xsi:type="PQ" value="0.1" /> <interpretationCode codeSystem="local" code="*" /> <referenceRange> <observationRange> <text>0.6-4.0</ text> </observationRange> </referenceRange> </ observation> </component> </organizer> </entry> <entry> <organizer moodCode="EVN" classCode="BATTERY"> <templateId root= "16.840.1.388090.10..22.4.1" /> <id nullFlavor="NA" /> <code codeSystem="local" code="LACTG" displayName="LACTIC ACID" /> <statusCode code="completed" /> <component> <observation moodCode="EVN" classCode="OBS"> <templateId root="16.840.1.162002.10..22.4.2" /> <id nullFlavor="NA" /> <code codeSystem="local" code="LACT" displayName="LACTIC ACID" /> <statusCode code="completed" /> < effectiveTime value="930972941017" /> <value unit="mmol/L" xsi:type="PQ " value="4.3" /> <interpretationCode codeSystem="local" code="" /> <referenceRange> <observationRange> <text>0.5- 2.0</text> </observationRange> </referenceRange> </ observation> </component> </organizer> </entry> <entry> <organizer moodCode="EVN" classCode="BATTERY"> <templateId root= "16.840.1.661461.10.22.4.1" /> <id nullFlavor="NA" /> <code codeSystem="local" code="CMP" displayName="Comprehensive Metabolic Panel (CMP)" /> <statusCode code="completed" /> <component> <observation moodCode="EVN" classCode="OBS"> <templateId root= "10.29.840.1.684179.10..22.4.2" /> <id nullFlavor="NA" /> < code codeSystem="local" code="ALB" displayName="Albumin" /> < statusCode code="completed" /> <effectiveTime value="" /> <value unit="g/dL" xsi:type="PQ" value="3.4" /> < interpretationCode codeSystem="local" code="*" /> <referenceRange> <observationRange> <text>3.5-4.8</text> </ observationRange> </referenceRange> </observation> </ component> <component> <observation moodCode="EVN" classCode="OBS"> <templateId root="840.1.396145...4.2" /> <id nullFlavor="NA" /> <code codeSystem="local" code="ALP" displayName= "Alkaline Phosphatase" /> <statusCode code="completed" /> < effectiveTime value="" /> <value unit="U/L" xsi:type="PQ" value="101" /> <referenceRange> <observationRange> <text>26-104</text> </observationRange> </ referenceRange> </observation> </component> <component> <observation moodCode="EVN" classCode="OBS"> <templateId root= "10.29.840.1.011213.10.20.22.4.2" /> <id nullFlavor="NA" /> < code codeSystem="local" code="ALT" displayName="ALT (SGPT)" /> < statusCode code="completed" /> <effectiveTime value="" /> <value unit="U/L" xsi:type="PQ" value="40" /> <referenceRange > <observationRange> <text>17-63</text> </ observationRange> </referenceRange> </observation> </ component> <component> <observation moodCode="EVN" classCode="OBS"> <templateId root="216.840.1.827748.10.4.2" /> <id nullFlavor="NA" /> <code codeSystem="local" code="AGAP" displayName= "Anion Gap" /> <statusCode code="completed" /> <effectiveTime value="" /> <value unit="mEq/L" xsi:type="PQ" value="12" / > <referenceRange> <observationRange> <text>3- 20</text> </observationRange> </referenceRange> </ observation> </component> <component> <observation moodCode= "EVN" classCode="OBS"> <templateId root="216.840.1.367404.10...4.2 " /> <id nullFlavor="NA" /> <code codeSystem="local" code="AST " displayName="AST (SGOT)" /> <statusCode code="completed" /> <effectiveTime value="" /> <value unit="U/L" xsi:type="PQ" value="54" /> <interpretationCode codeSystem="local" code="*" /> <referenceRange> <observationRange> <text>15-41</ text> </observationRange> </referenceRange> </ observation> </component> <component> <observation moodCode= "EVN" classCode="OBS"> <templateId root="216.840.1.505837.07.02.22.4.2 " /> <id nullFlavor="NA" /> <code codeSystem="local" code= "BILIT" displayName="Bilirubin Total" /> <statusCode code="completed" / > <effectiveTime value="" /> <value unit="mg/dL" xsi:type="PQ" value="0.9" /> <referenceRange> < observationRange> <text>0.2-1.2</text> </ observationRange> </referenceRange> </observation> </ component> <component> <observation moodCode="EVN" classCode="OBS"> <templateId root="16.840.1.415301.07.02.224.2" /> <id nullFlavor="NA" /> <code codeSystem="local" code="BUN" displayName="BUN " /> <statusCode code="completed" /> <effectiveTime value= "" /> <value unit="mg/dL" xsi:type="PQ" value="22" /> <interpretationCode codeSystem="local" code="*" /> <referenceRange > <observationRange> <text>4-20</text> </ observationRange> </referenceRange> </observation> </ component> <component> <observation moodCode="EVN" classCode="OBS"> <templateId root="10.29.840.1.530224.07.02.22.4.2" /> <id nullFlavor="NA" /> <code codeSystem="local" code="CA" displayName= "Calcium" /> <statusCode code="completed" /> <effectiveTime value="" /> <value unit="mg/dL" xsi:type="PQ" value="8.5" / > <interpretationCode codeSystem="local" code="*" /> < referenceRange> <observationRange> <text>8.6-10.0</text > </observationRange> </referenceRange> </observation > </component> <component> <observation moodCode="EVN" classCode="OBS"> <templateId root="16.840.1.533061.10..4.2" /> <id nullFlavor="NA" /> <code codeSystem="local" code="CL" displayName="Chloride" /> <statusCode code="completed" /> < effectiveTime value="" /> <value unit="mEq/L" xsi:type="PQ " value="104" /> <referenceRange> <observationRange> <text>99-109</text> </observationRange> </ referenceRange> </observation> </component> <component> <observation moodCode="EVN" classCode="OBS"> <templateId root= "10.29.840.1.718461.07.02.22.4.2" /> <id nullFlavor="NA" /> < code codeSystem="local" code="CO2" displayName="CO2" /> <statusCode code="completed" /> <effectiveTime value="" /> < value unit="mEq/L" xsi:type="PQ" value="20" /> <interpretationCode codeSystem="local" code="*" /> <referenceRange> < observationRange> <text>22-32</text> </observationRange > </referenceRange> </observation> </component> < component> <observation moodCode="EVN" classCode="OBS"> < templateId root="10.29.840.1.925380...4.2" /> <id nullFlavor="NA " /> <code codeSystem="local" code="CREAT" displayName="Creatinine" /> <statusCode code="completed" /> <effectiveTime value= "" /> <value unit="mg/dL" xsi:type="PQ" value="1.10" /> <referenceRange> <observationRange> <text>0.64- 1.27</text> </observationRange> </referenceRange> </ observation> </component> <component> <observation moodCode= "EVN" classCode="OBS"> <templateId root="216.840.1.713844.10.22.4.2 " /> <id nullFlavor="NA" /> <code codeSystem="local" code= "GLOB" displayName="Globulin" /> <statusCode code="completed" /> <effectiveTime value="" /> <value unit="g/dL" xsi:type= "PQ" value="3.3" /> <referenceRange> <observationRange> <text>1.9-4.3</text> </observationRange> </ referenceRange> </observation> </component> <component> <observation moodCode="EVN" classCode="OBS"> <templateId root= "16.840.1.212549.10..4.2" /> <id nullFlavor="NA" /> < code codeSystem="local" code="GLU" displayName="Glucose" /> < statusCode code="completed" /> <effectiveTime value="" /> <value unit="mg/dL" xsi:type="PQ" value="101" /> < interpretationCode codeSystem="local" code="*" /> <referenceRange> <observationRange> <text>70-100</text> </ observationRange> </referenceRange> </observation> </ component> <component> <observation moodCode="EVN" classCode="OBS"> <templateId root="16.840.1.152063...4.2" /> <id nullFlavor="NA" /> <code codeSystem="local" code="K" displayName= "Potassium" /> <statusCode code="completed" /> <effectiveTime value="" /> <value unit="mEq/L" xsi:type="PQ" value="4.6" / > <referenceRange> <observationRange> <text>3.6 -5.1</text> </observationRange> </referenceRange> </ observation> </component> <component> <observation moodCode= "EVN" classCode="OBS"> <templateId root="2.16.840.1.484198.07.02.22.4.2 " /> <id nullFlavor="NA" /> <code codeSystem="local" code="TP " displayName="Protein" /> <statusCode code="completed" /> < effectiveTime value="" /> <value unit="g/dL" xsi:type="PQ" value="6.7" /> <referenceRange> <observationRange> <text>6.1-7.9</text> </observationRange> </ referenceRange> </observation> </component> <component> <observation moodCode="EVN" classCode="OBS"> <templateId root= "2.16.840.1.944183.10.4.2" /> <id nullFlavor="NA" /> < code codeSystem="local" code="NA" displayName="Sodium" /> <statusCode code="completed" /> <effectiveTime value="" /> < value unit="mEq/L" xsi:type="PQ" value="136" /> <referenceRange> <observationRange> <text>136-144</text> </ observationRange> </referenceRange> </observation> </ component> </organizer> </entry> <entry> <organizer moodCode="EVN" classCode="BATTERY"> <templateId root="10.29.840.1.754665.10..4.1" /> <id nullFlavor="NA" /> <code codeSystem="local" code="MG" displayName= "Magnesium" /> <statusCode code="completed" /> <component> < observation moodCode="EVN" classCode="OBS"> <templateId root= "840.1.493037.07.02.22.4.2" /> <id nullFlavor="NA" /> < code codeSystem="local" code="MG" displayName="Magnesium" /> < statusCode code="completed" /> <effectiveTime value="" /> <value unit="mg/dL" xsi:type="PQ" value="1.8" /> < referenceRange> <observationRange> <text>1.8-2.5</text> </observationRange> </referenceRange> </observation > </component> </organizer> </entry> <entry> <organizer moodCode= "EVN" classCode="BATTERY"> <templateId root="840.1.426653.07.02.22.4.1 " /> <id nullFlavor="NA" /> <code codeSystem="local" code="PHOS" displayName="Phosphorus" /> <statusCode code="completed" /> <component > <observation moodCode="EVN" classCode="OBS"> <templateId root= "10.29.840.1.420487.07.02.22.4.2" /> <id nullFlavor="NA" /> < code codeSystem="local" code="PHOS" displayName="Phosphorus" /> < statusCode code="completed" /> <effectiveTime value="" /> <value unit="mg/dL" xsi:type="PQ" value="4.4" /> < referenceRange> <observationRange> <text>2.4-4.7</text> </observationRange> </referenceRange> </observation > </component> </organizer> </entry> <entry> <organizer moodCode= "EVN" classCode="BATTERY"> <templateId root="10.29.840.1.543532.07.02.22.4.1 " /> <id nullFlavor="NA" /> <code codeSystem="local" code="GFR" displayName="eGFR" /> <statusCode code="completed" /> <component> <observation moodCode="EVN" classCode="OBS"> <templateId root= "840.1.772504.07.02.22.4.2" /> <id nullFlavor="NA" /> < code codeSystem="local" code="GFR" displayName="eGFR" /> <statusCode code="completed" /> <effectiveTime value="775769910875" /> < value unit="mL/min" xsi:type="PQ" value=">60" /> <referenceRange> <observationRange> <text>>60</text> </ observationRange> </referenceRange> </observation> </ component> </organizer> </entry> <entry> <organizer moodCode="EVN" classCode="BATTERY"> <templateId root="10.29.840.1.692646.07.02.22.4.1" /> <id nullFlavor="NA" /> <code codeSystem="local" code="ZG575" displayName="Fungitell Assay" /> <statusCode code="completed" /> < component> <observation moodCode="EVN" classCode="OBS"> < templateId root="10.29.840.1.192919.07.02.22.4.2" /> <id nullFlavor="NA " /> <code codeSystem="local" code="Z2986" displayName="Fungitell Assay " /> <statusCode code="completed" /> <effectiveTime value= "644761608219" /> <value unit="pg/mL" xsi:type="PQ" value="<31" /> <referenceRange> <observationRange> <text>< 80</text> </observationRange> </referenceRange> </ observation> </component> </organizer> </entry> <entry> <organizer moodCode="EVN" classCode="BATTERY"> <templateId root= "216.840.1.981821.07.02.22.4.1" /> <id nullFlavor="NA" /> <code codeSystem="local" code="CBCWD" displayName="CBC With Platelet and Differential " /> <statusCode code="completed" /> <component> <observation moodCode="EVN" classCode="OBS"> <templateId root= "216.840.1.309868.07.02.22.4.2" /> <id nullFlavor="NA" /> < code codeSystem="local" code="ABASR" displayName="Absolute Basophils" /> <statusCode code="completed" /> <effectiveTime value="305851133071" /> <value unit="10*3/uL" xsi:type="PQ" value="0.01" /> < referenceRange> <observationRange> <text>0.00-0.20</text > </observationRange> </referenceRange> </observation > </component> <component> <observation moodCode="EVN" classCode="OBS"> <templateId root="16.840.1.559852.07.02.22.4.2" /> <id nullFlavor="NA" /> <code codeSystem="local" code="AEOSR" displayName="Absolute Eosinophils" /> <statusCode code="completed" /> <effectiveTime value="" /> <value unit="10*3/uL" xsi:type="PQ" value="0.02" /> <referenceRange> < observationRange> <text>0.00-0.50</text> </ observationRange> </referenceRange> </observation> </ component> <component> <observation moodCode="EVN" classCode="OBS"> <templateId root="2.16.840.1.565020.10..22.4.2" /> <id nullFlavor="NA" /> <code codeSystem="local" code="ALYMR" displayName= "Absolute Lymphocytes" /> <statusCode code="completed" /> < effectiveTime value="" /> <value unit="10*3/uL" xsi:type= "PQ" value="1.94" /> <referenceRange> <observationRange> <text>0.80-3.30</text> </observationRange> </ referenceRange> </observation> </component> <component> <observation moodCode="EVN" classCode="OBS"> <templateId root= "2.16.840.1.697386.10...4.2" /> <id nullFlavor="NA" /> < code codeSystem="local" code="AMONR" displayName="Absolute Monocytes" /> <statusCode code="completed" /> <effectiveTime value="" /> <value unit="10*3/uL" xsi:type="PQ" value="0.82" /> < referenceRange> <observationRange> <text>0.30-1.00</text > </observationRange> </referenceRange> </observation > </component> <component> <observation moodCode="EVN" classCode="OBS"> <templateId root="10.29.840.1.021187.10.2022.4.2" /> <id nullFlavor="NA" /> <code codeSystem="local" code="ASEGR" displayName="Absolute Neutrophils" /> <statusCode code="completed" /> <effectiveTime value="" /> <value unit="10*3/uL" xsi:type="PQ" value="3.39" /> <referenceRange> < observationRange> <text>1.90-7.00</text> </ observationRange> </referenceRange> </observation> </ component> <component> <observation moodCode="EVN" classCode="OBS"> <templateId root="10.29.840.1.576981.1022.4.2" /> <id nullFlavor="NA" /> <code codeSystem="local" code="BASOR" displayName= "Basophils" /> <statusCode code="completed" /> <effectiveTime value="" /> <value unit="%" xsi:type="PQ" value="0" /> <referenceRange> <observationRange> <text>0-2< /text> </observationRange> </referenceRange> </ observation> </component> <component> <observation moodCode= "EVN" classCode="OBS"> <templateId root="10.29.840.1.813502.10.2022.4.2 " /> <id nullFlavor="NA" /> <code codeSystem="local" code= "EOSR" displayName="Eosinophils" /> <statusCode code="completed" /> <effectiveTime value="" /> <value unit="%" xsi: type="PQ" value="0" /> <referenceRange> <observationRange> <text>0-4</text> </observationRange> </ referenceRange> </observation> </component> <component> <observation moodCode="EVN" classCode="OBS"> <templateId root= "16.840.1.283627.10.2022.4.2" /> <id nullFlavor="NA" /> < code codeSystem="local" code="HCT" displayName="HCT" /> <statusCode code="completed" /> <effectiveTime value="" /> < value unit="%" xsi:type="PQ" value="37.8" /> <interpretationCode codeSystem="local" code="*" /> <referenceRange> < observationRange> <text>42.0-52.0</text> </ observationRange> </referenceRange> </observation> </ component> <component> <observation moodCode="EVN" classCode="OBS"> <templateId root="10.29.840.1.805424.10..4.2" /> <id nullFlavor="NA" /> <code codeSystem="local" code="HGB" displayName="HGB " /> <statusCode code="completed" /> <effectiveTime value= "" /> <value unit="g/dL" xsi:type="PQ" value="12.5" /> <interpretationCode codeSystem="local" code="*" /> < referenceRange> <observationRange> <text>14.0-18.0</text > </observationRange> </referenceRange> </observation > </component> <component> <observation moodCode="EVN" classCode="OBS"> <templateId root="10.29.840.1.504059.10.2022.4.2" /> <id nullFlavor="NA" /> <code codeSystem="local" code="IMGA" displayName="Immature Granulocytes" /> <statusCode code="completed" /> <effectiveTime value="" /> <value unit="%" xsi:type="PQ" value="0.6" /> <referenceRange> < observationRange> <text>0.0-1.0</text> </ observationRange> </referenceRange> </observation> </ component> <component> <observation moodCode="EVN" classCode="OBS"> <templateId root="216.840.1.995176.10.22.4.2" /> <id nullFlavor="NA" /> <code codeSystem="local" code="LYMPR" displayName= "Lymphocytes" /> <statusCode code="completed" /> < effectiveTime value="" /> <value unit="%" xsi:type="PQ " value="31" /> <referenceRange> <observationRange> <text>20-46</text> </observationRange> </ referenceRange> </observation> </component> <component> <observation moodCode="EVN" classCode="OBS"> <templateId root= "10.29.840.1.848053.22.4.2" /> <id nullFlavor="NA" /> < code codeSystem="local" code="MCH" displayName="MCH" /> <statusCode code="completed" /> <effectiveTime value="[id number]" /> < value unit="pg" xsi:type="PQ" value="29.3" /> <referenceRange> <observationRange> <text>27.0-32.0</text> </ observationRange> </referenceRange> </observation> </ component> <component> <observation moodCode="EVN" classCode="OBS"> <templateId root="10.29.840.1.763808.22.4.2" /> <id nullFlavor="NA" /> <code codeSystem="local" code="MCHC" displayName= "MCHC" /> <statusCode code="completed" /> <effectiveTime value ="" /> <value unit="g/dL" xsi:type="PQ" value="33.1" /> <referenceRange> <observationRange> <text>32.0- 36.0</text> </observationRange> </referenceRange> </ observation> </component> <component> <observation moodCode= "EVN" classCode="OBS"> <templateId root="2.16.840.1.826050...4.2 " /> <id nullFlavor="NA" /> <code codeSystem="local" code="MCV " displayName="MCV" /> <statusCode code="completed" /> < effectiveTime value="" /> <value unit="fL" xsi:type="PQ" value="88.7" /> <referenceRange> <observationRange> <text>82.0-99.0</text> </observationRange> </ referenceRange> </observation> </component> <component> <observation moodCode="EVN" classCode="OBS"> <templateId root= "2.16.840.1.252115.10...4.2" /> <id nullFlavor="NA" /> < code codeSystem="local" code="MONOR" displayName="Monocytes" /> < statusCode code="completed" /> <effectiveTime value="" /> <value unit="%" xsi:type="PQ" value="13" /> < interpretationCode codeSystem="local" code="*" /> <referenceRange> <observationRange> <text>4-11</text> </ observationRange> </referenceRange> </observation> </ component> <component> <observation moodCode="EVN" classCode="OBS"> <templateId root="16.840.1.183390.07.02.22.4.2" /> <id nullFlavor="NA" /> <code codeSystem="local" code="MPV" displayName="MPV " /> <statusCode code="completed" /> <effectiveTime value= "" /> <value unit="fL" xsi:type="PQ" value="11.3" /> <referenceRange> <observationRange> <text>9.4-12.3</ text> </observationRange> </referenceRange> </ observation> </component> <component> <observation moodCode= "EVN" classCode="OBS"> <templateId root="10.29.840.1.532442.07.02.224.2 " /> <id nullFlavor="NA" /> <code codeSystem="local" code= "SEGR" displayName="Neutrophils" /> <statusCode code="completed" /> <effectiveTime value="" /> <value unit="%" xsi: type="PQ" value="55" /> <referenceRange> <observationRange> <text>51-75</text> </observationRange> </ referenceRange> </observation> </component> <component> <observation moodCode="EVN" classCode="OBS"> <templateId root= "10.29.840.1.963360.07.02.22.4.2" /> <id nullFlavor="NA" /> < code codeSystem="local" code="NRBCA" displayName="Nucleated RBC Automated" /> <statusCode code="completed" /> <effectiveTime value= "" /> <value unit="/100WBC" xsi:type="PQ" value="0.0" /> <referenceRange> <observationRange> <text /> </observationRange> </referenceRange> </observation> </component> <component> <observation moodCode="EVN" classCode= "OBS"> <templateId root="10.29.840.1.749026.10.20.22.4.2" /> < id nullFlavor="NA" /> <code codeSystem="local" code="PLT" displayName= "Platelet Count" /> <statusCode code="completed" /> < effectiveTime value="" /> <value unit="K/uL" xsi:type="PQ" value="127" /> <interpretationCode codeSystem="local" code="*" /> <referenceRange> <observationRange> <text>150-400</ text> </observationRange> </referenceRange> </ observation> </component> <component> <observation moodCode= "EVN" classCode="OBS"> <templateId root="840.1.231543.10.22.4.2 " /> <id nullFlavor="NA" /> <code codeSystem="local" code="RBC " displayName="RBC" /> <statusCode code="completed" /> < effectiveTime value="" /> <value unit="10*6/uL" xsi:type= "PQ" value="4.26" /> <interpretationCode codeSystem="local" code="*" / > <referenceRange> <observationRange> <text> 4.60-6.20</text> </observationRange> </referenceRange> </observation> </component> <component> <observation moodCode="EVN" classCode="OBS"> <templateId root= "10.29.840.1.705431.10.20.22.4.2" /> <id nullFlavor="NA" /> < code codeSystem="local" code="RDW" displayName="RDW" /> <statusCode code="completed" /> <effectiveTime value="" /> < value unit="%" xsi:type="PQ" value="15.6" /> <interpretationCode codeSystem="local" code="*" /> <referenceRange> < observationRange> <text>11.5-14.5</text> </ observationRange> </referenceRange> </observation> </ component> <component> <observation moodCode="EVN" classCode="OBS"> <templateId root="840.1.390551.07.02.22.4.2" /> <id nullFlavor="NA" /> <code codeSystem="local" code="WBCIR" displayName= "WBC" /> <statusCode code="completed" /> <effectiveTime value= "" /> <value unit="K/uL" xsi:type="PQ" value="6.2" /> <referenceRange> <observationRange> <text>4.8-10.8< /text> </observationRange> </referenceRange> </ observation> </component> </organizer> </entry> <entry> <organizer moodCode="EVN" classCode="BATTERY"> <templateId root= "840.1.670984.22.4.1" /> <id nullFlavor="NA" /> <code codeSystem="local" code="PT" displayName="Protime (INR)" /> <statusCode code="completed" /> <component> <observation moodCode="EVN" classCode="OBS"> <templateId root="10.29.840.1.638618.2022.4.2" /> <id nullFlavor="NA" /> <code codeSystem="local" code="INR" displayName="INR" /> <statusCode code="completed" /> < effectiveTime value="[id number]" /> <value unit="NA" xsi:type="PQ" value="1.0" /> <referenceRange> <observationRange> <text>0.9-1.2</text> </observationRange> </ referenceRange> </observation> </component> </organizer> </entry > <entry> <organizer moodCode="EVN" classCode="BATTERY"> <templateId root="10.29.840.1.629834.10..22.4.1" /> <id nullFlavor="NA" /> <code codeSystem="local" code="LACID" displayName="Lactic Acid Venous" /> < statusCode code="completed" /> <component> <observation moodCode= "EVN" classCode="OBS"> <templateId root="10.29.840.1.015345.10..22.4.2 " /> <id nullFlavor="NA" /> <code codeSystem="local" code= "LACID" displayName="Lactic Acid Venous" /> <statusCode code="completed " /> <effectiveTime value="[id number]" /> <value unit="mEq/L " xsi:type="PQ" value="2.2" /> <interpretationCode codeSystem="local" code="*" /> <referenceRange> <observationRange> <text>0.5-2.0</text> </observationRange> </referenceRange > </observation> </component> </organizer> </entry> <entry> <organizer moodCode="EVN" classCode="BATTERY"> <templateId root= "10.29.840.1.884722.10.20.22.4.1" /> <id nullFlavor="NA" /> <code codeSystem="local" code="TROP" displayName="Troponin" /> <statusCode code= "completed" /> <component> <observation moodCode="EVN" classCode= "OBS"> <templateId root="216.840.1.791360.10.4.2" /> < id nullFlavor="NA" /> <code codeSystem="local" code="TROP" displayName= "Troponin" /> <statusCode code="completed" /> <effectiveTime value="[id number]" /> <value unit="ng/mL" xsi:type="PQ" value="0.09" /> <interpretationCode codeSystem="local" code="" /> < referenceRange> <observationRange> <text><0.06</text > </observationRange> </referenceRange> </observation > </component> </organizer> </entry> <entry> <organizer moodCode= "EVN" classCode="BATTERY"> <templateId root="216.840.1.906613.10.4.1 " /> <id nullFlavor="NA" /> <code codeSystem="local" code="LIPID" displayName="Lipid Panel" /> <statusCode code="completed" /> < component> <observation moodCode="EVN" classCode="OBS"> < templateId root="216.840.1.888052.10.4.2" /> <id nullFlavor="NA " /> <code codeSystem="local" code="CHR" displayName="Cardiac Risk" /> <statusCode code="completed" /> <effectiveTime value= "[id number]" /> <value unit="" xsi:type="PQ" value="3.5" /> <referenceRange> <observationRange> <text>0.0-5.7</text > </observationRange> </referenceRange> </observation > </component> <component> <observation moodCode="EVN" classCode="OBS"> <templateId root="216.840.1.093670.10..22.4.2" /> <id nullFlavor="NA" /> <code codeSystem="local" code="CHOL" displayName="Cholesterol" /> <statusCode code="completed" /> < effectiveTime value="[id number]" /> <value unit="mg/dL" xsi:type="PQ " value="149" /> <referenceRange> <observationRange> <text>0-199</text> </observationRange> </ referenceRange> </observation> </component> <component> <observation moodCode="EVN" classCode="OBS"> <templateId root= "216.840.1.961657.10...4.2" /> <id nullFlavor="NA" /> < code codeSystem="local" code="HDL" displayName="HDL Cholesterol" /> < statusCode code="completed" /> <effectiveTime value="" /> <value unit="mg/dL" xsi:type="PQ" value="43" /> < referenceRange> <observationRange> <text>40-84</text> </observationRange> </referenceRange> </observation> </component> <component> <observation moodCode="EVN" classCode= "OBS"> <templateId root="16.840.1.453084.10...4.2" /> < id nullFlavor="NA" /> <code codeSystem="local" code="LDL" displayName= "LDL Cholesterol" /> <statusCode code="completed" /> < effectiveTime value="[id number]" /> <value unit="mg/dL" xsi:type="PQ " value="73" /> <referenceRange> <observationRange> <text>0-130</text> </observationRange> </ referenceRange> </observation> </component> <component> <observation moodCode="EVN" classCode="OBS"> <templateId root= "16.840.1.132764.10...4.2" /> <id nullFlavor="NA" /> < code codeSystem="local" code="TRIG" displayName="Triglycerides" /> < statusCode code="completed" /> <effectiveTime value="" /> <value unit="mg/dL" xsi:type="PQ" value="165" /> < interpretationCode codeSystem="local" code="*" /> <referenceRange> <observationRange> <text>0-149</text> </ observationRange> </referenceRange> </observation> </ component> <component> <observation moodCode="EVN" classCode="OBS"> <templateId root="10.29.840.1.112302.10..4.2" /> <id nullFlavor="NA" /> <code codeSystem="local" code="VLDL" displayName= "VLDL Cholesterol" /> <statusCode code="completed" /> < effectiveTime value="" /> <value unit="mg/dL" xsi:type="PQ " value="33" /> <interpretationCode codeSystem="local" code="*" /> <referenceRange> <observationRange> <text>0-28</ text> </observationRange> </referenceRange> </ observation> </component> </organizer> </entry> <entry> <organizer moodCode="EVN" classCode="BATTERY"> <templateId root= "10.29.840.1.750362.10..22.4.1" /> <id nullFlavor="NA" /> <code codeSystem="local" code="CBCWD" displayName="CBC With Platelet and Differential " /> <statusCode code="completed" /> <component> <observation moodCode="EVN" classCode="OBS"> <templateId root= "216.840.1.982972.07.02.22.4.2" /> <id nullFlavor="NA" /> < code codeSystem="local" code="ABASR" displayName="Absolute Basophils" /> <statusCode code="completed" /> <effectiveTime value="" /> <value unit="10*3/uL" xsi:type="PQ" value="0.02" /> < referenceRange> <observationRange> <text>0.00-0.20</text > </observationRange> </referenceRange> </observation > </component> <component> <observation moodCode="EVN" classCode="OBS"> <templateId root="10.29.840.1.140470.07.02.224.2" /> <id nullFlavor="NA" /> <code codeSystem="local" code="AEOSR" displayName="Absolute Eosinophils" /> <statusCode code="completed" /> <effectiveTime value="" /> <value unit="10*3/uL" xsi:type="PQ" value="0.15" /> <referenceRange> < observationRange> <text>0.00-0.50</text> </ observationRange> </referenceRange> </observation> </ component> <component> <observation moodCode="EVN" classCode="OBS"> <templateId root="16.840.1.002035.07.02.22.4.2" /> <id nullFlavor="NA" /> <code codeSystem="local" code="ALYMR" displayName= "Absolute Lymphocytes" /> <statusCode code="completed" /> < effectiveTime value="" /> <value unit="10*3/uL" xsi:type= "PQ" value="2.09" /> <referenceRange> <observationRange> <text>0.80-3.30</text> </observationRange> </ referenceRange> </observation> </component> <component> <observation moodCode="EVN" classCode="OBS"> <templateId root= "10.29.840.1.789469.07.02.22.4.2" /> <id nullFlavor="NA" /> < code codeSystem="local" code="AMONR" displayName="Absolute Monocytes" /> <statusCode code="completed" /> <effectiveTime value="" /> <value unit="10*3/uL" xsi:type="PQ" value="1.20" /> < interpretationCode codeSystem="local" code="*" /> <referenceRange> <observationRange> <text>0.30-1.00</text> </ observationRange> </referenceRange> </observation> </ component> <component> <observation moodCode="EVN" classCode="OBS"> <templateId root="10.29.840.1.642011.07.02.22.4.2" /> <id nullFlavor="NA" /> <code codeSystem="local" code="ASEGR" displayName= "Absolute Neutrophils" /> <statusCode code="completed" /> < effectiveTime value="" /> <value unit="10*3/uL" xsi:type= "PQ" value="4.86" /> <referenceRange> <observationRange> <text>1.90-7.00</text> </observationRange> </ referenceRange> </observation> </component> <component> <observation moodCode="EVN" classCode="OBS"> <templateId root= "10.29.840.1.446823.07.02.22.4.2" /> <id nullFlavor="NA" /> < code codeSystem="local" code="BASOR" displayName="Basophils" /> < statusCode code="completed" /> <effectiveTime value="" /> <value unit="%" xsi:type="PQ" value="0" /> <referenceRange > <observationRange> <text>0-2</text> </ observationRange> </referenceRange> </observation> </ component> <component> <observation moodCode="EVN" classCode="OBS"> <templateId root="216.840.1.721541.07.02.22.4.2" /> <id nullFlavor="NA" /> <code codeSystem="local" code="EOSR" displayName= "Eosinophils" /> <statusCode code="completed" /> < effectiveTime value="" /> <value unit="%" xsi:type="PQ " value="2" /> <referenceRange> <observationRange> <text>0-4</text> </observationRange> </referenceRange> </observation> </component> <component> <observation moodCode="EVN" classCode="OBS"> <templateId root= "2.16.840.1.912263.07.02.22.4.2" /> <id nullFlavor="NA" /> < code codeSystem="local" code="HCT" displayName="HCT" /> <statusCode code="completed" /> <effectiveTime value="" /> < value unit="%" xsi:type="PQ" value="37.9" /> <interpretationCode codeSystem="local" code="*" /> <referenceRange> < observationRange> <text>42.0-52.0</text> </ observationRange> </referenceRange> </observation> </ component> <component> <observation moodCode="EVN" classCode="OBS"> <templateId root="2.16.840.1.664469.10..4.2" /> <id nullFlavor="NA" /> <code codeSystem="local" code="HGB" displayName="HGB " /> <statusCode code="completed" /> <effectiveTime value= "" /> <value unit="g/dL" xsi:type="PQ" value="12.5" /> <interpretationCode codeSystem="local" code="*" /> < referenceRange> <observationRange> <text>14.0-18.0</text > </observationRange> </referenceRange> </observation > </component> <component> <observation moodCode="EVN" classCode="OBS"> <templateId root="216.840.1.881071.07.02.224.2" /> <id nullFlavor="NA" /> <code codeSystem="local" code="IMGA" displayName="Immature Granulocytes" /> <statusCode code="completed" /> <effectiveTime value="" /> <value unit="%" xsi:type="PQ" value="1.0" /> <referenceRange> < observationRange> <text>0.0-1.0</text> </ observationRange> </referenceRange> </observation> </ component> <component> <observation moodCode="EVN" classCode="OBS"> <templateId root="216.840.1.821784.07.02.22.4.2" /> <id nullFlavor="NA" /> <code codeSystem="local" code="LYMPR" displayName= "Lymphocytes" /> <statusCode code="completed" /> < effectiveTime value="" /> <value unit="%" xsi:type="PQ " value="25" /> <referenceRange> <observationRange> <text>20-46</text> </observationRange> </ referenceRange> </observation> </component> <component> <observation moodCode="EVN" classCode="OBS"> <templateId root= "216.840.1.974168.10..4.2" /> <id nullFlavor="NA" /> < code codeSystem="local" code="MCH" displayName="MCH" /> <statusCode code="completed" /> <effectiveTime value="" /> < value unit="pg" xsi:type="PQ" value="29.3" /> <referenceRange> <observationRange> <text>27.0-32.0</text> </ observationRange> </referenceRange> </observation> </ component> <component> <observation moodCode="EVN" classCode="OBS"> <templateId root="10.29.840.1.387467...4.2" /> <id nullFlavor="NA" /> <code codeSystem="local" code="MCHC" displayName= "MCHC" /> <statusCode code="completed" /> <effectiveTime value ="" /> <value unit="g/dL" xsi:type="PQ" value="33.0" /> <referenceRange> <observationRange> <text>32.0- 36.0</text> </observationRange> </referenceRange> </ observation> </component> <component> <observation moodCode= "EVN" classCode="OBS"> <templateId root="16.840.1.547059.10.22.4.2 " /> <id nullFlavor="NA" /> <code codeSystem="local" code="MCV " displayName="MCV" /> <statusCode code="completed" /> < effectiveTime value="" /> <value unit="fL" xsi:type="PQ" value="88.8" /> <referenceRange> <observationRange> <text>82.0-99.0</text> </observationRange> </ referenceRange> </observation> </component> <component> <observation moodCode="EVN" classCode="OBS"> <templateId root= "216.840.1.186714.10.20.22.4.2" /> <id nullFlavor="NA" /> < code codeSystem="local" code="MONOR" displayName="Monocytes" /> < statusCode code="completed" /> <effectiveTime value="" /> <value unit="%" xsi:type="PQ" value="14" /> < interpretationCode codeSystem="local" code="*" /> <referenceRange> <observationRange> <text>4-11</text> </ observationRange> </referenceRange> </observation> </ component> <component> <observation moodCode="EVN" classCode="OBS"> <templateId root="16.840.1.639667.10.20.22.4.2" /> <id nullFlavor="NA" /> <code codeSystem="local" code="MPV" displayName="MPV " /> <statusCode code="completed" /> <effectiveTime value= "[id number]" /> <value unit="fL" xsi:type="PQ" value="11.3" /> <referenceRange> <observationRange> <text>9.4-12.3</ text> </observationRange> </referenceRange> </ observation> </component> <component> <observation moodCode= "EVN" classCode="OBS"> <templateId root="216.840.1.718765.10..4.2 " /> <id nullFlavor="NA" /> <code codeSystem="local" code= "SEGR" displayName="Neutrophils" /> <statusCode code="completed" /> <effectiveTime value="" /> <value unit="%" xsi: type="PQ" value="58" /> <referenceRange> <observationRange> <text>51-75</text> </observationRange> </ referenceRange> </observation> </component> <component> <observation moodCode="EVN" classCode="OBS"> <templateId root= "216.840.1.749248.07.02.22.4.2" /> <id nullFlavor="NA" /> < code codeSystem="local" code="NRBCA" displayName="Nucleated RBC Automated" /> <statusCode code="completed" /> <effectiveTime value= "" /> <value unit="/100WBC" xsi:type="PQ" value="0.6" /> <referenceRange> <observationRange> <text /> </observationRange> </referenceRange> </observation> </component> <component> <observation moodCode="EVN" classCode= "OBS"> <templateId root="16.840.1.715816.10.22.4.2" /> < id nullFlavor="NA" /> <code codeSystem="local" code="PLT" displayName= "Platelet Count" /> <statusCode code="completed" /> < effectiveTime value="" /> <value unit="K/uL" xsi:type="PQ" value="123" /> <interpretationCode codeSystem="local" code="*" /> <referenceRange> <observationRange> <text>150-400</ text> </observationRange> </referenceRange> </ observation> </component> <component> <observation moodCode= "EVN" classCode="OBS"> <templateId root="10.29.840.1.155109.10.20.22.4.2 " /> <id nullFlavor="NA" /> <code codeSystem="local" code="RBC " displayName="RBC" /> <statusCode code="completed" /> < effectiveTime value="" /> <value unit="10*6/uL" xsi:type= "PQ" value="4.27" /> <interpretationCode codeSystem="local" code="*" / > <referenceRange> <observationRange> <text> 4.60-6.20</text> </observationRange> </referenceRange> </observation> </component> <component> <observation moodCode="EVN" classCode="OBS"> <templateId root= "10.29.840.1.408891.22.4.2" /> <id nullFlavor="NA" /> < code codeSystem="local" code="RDW" displayName="RDW" /> <statusCode code="completed" /> <effectiveTime value="" /> < value unit="%" xsi:type="PQ" value="15.9" /> <interpretationCode codeSystem="local" code="*" /> <referenceRange> < observationRange> <text>11.5-14.5</text> </ observationRange> </referenceRange> </observation> </ component> <component> <observation moodCode="EVN" classCode="OBS"> <templateId root="10.29.840.1.671259.10.20.22.4.2" /> <id nullFlavor="NA" /> <code codeSystem="local" code="WBCIR" displayName= "WBC" /> <statusCode code="completed" /> <effectiveTime value= "992316375915" /> <value unit="K/uL" xsi:type="PQ" value="8.4" /> <referenceRange> <observationRange> <text>4.8-10.8< /text> </observationRange> </referenceRange> </ observation> </component> </organizer> </entry> <entry> <organizer moodCode="EVN" classCode="BATTERY"> <templateId root= "10.29.840.1.029674.10..22.4.1" /> <id nullFlavor="NA" /> <code codeSystem="local" code="LACID" displayName="Lactic Acid Venous" /> < statusCode code="completed" /> <component> <observation moodCode= "EVN" classCode="OBS"> <templateId root="10.29.840.1.077356.10..22.4.2 " /> <id nullFlavor="NA" /> <code codeSystem="local" code= "LACID" displayName="Lactic Acid Venous" /> <statusCode code="completed " /> <effectiveTime value="[id number]" /> <value unit="mEq/L " xsi:type="PQ" value="3.2" /> <interpretationCode codeSystem="local" code="*" /> <referenceRange> <observationRange> <text>0.5-2.0</text> </observationRange> </referenceRange > </observation> </component> </organizer> </entry> <entry> <organizer moodCode="EVN" classCode="BATTERY"> <templateId root= "10.29.840.1.383426.10..22.4.1" /> <id nullFlavor="NA" /> <code codeSystem="local" code="MG" displayName="Magnesium" /> <statusCode code= "completed" /> <component> <observation moodCode="EVN" classCode= "OBS"> <templateId root="2.16.840.1.067215.10..22.4.2" /> < id nullFlavor="NA" /> <code codeSystem="local" code="MG" displayName= "Magnesium" /> <statusCode code="completed" /> <effectiveTime value="" /> <value unit="mg/dL" xsi:type="PQ" value="2.0" / > <referenceRange> <observationRange> <text>1.8 -2.5</text> </observationRange> </referenceRange> </ observation> </component> </organizer> </entry> <entry> <organizer moodCode="EVN" classCode="BATTERY"> <templateId root= "2.16.840.1.913163.10..22.4.1" /> <id nullFlavor="NA" /> <code codeSystem="local" code="CMP" displayName="Comprehensive Metabolic Panel (CMP)" /> <statusCode code="completed" /> <component> <observation moodCode="EVN" classCode="OBS"> <templateId root= "2.16.840.1.092675.10..22.4.2" /> <id nullFlavor="NA" /> < code codeSystem="local" code="ALB" displayName="Albumin" /> < statusCode code="completed" /> <effectiveTime value="" /> <value unit="g/dL" xsi:type="PQ" value="3.2" /> < interpretationCode codeSystem="local" code="*" /> <referenceRange> <observationRange> <text>3.5-4.8</text> </ observationRange> </referenceRange> </observation> </ component> <component> <observation moodCode="EVN" classCode="OBS"> <templateId root="216.840.1.907320.10..22.4.2" /> <id nullFlavor="NA" /> <code codeSystem="local" code="ALP" displayName= "Alkaline Phosphatase" /> <statusCode code="completed" /> < effectiveTime value="" /> <value unit="U/L" xsi:type="PQ" value="98" /> <referenceRange> <observationRange> <text>26-104</text> </observationRange> </referenceRange > </observation> </component> <component> <observation moodCode="EVN" classCode="OBS"> <templateId root= "16.840.1.048716.10...4.2" /> <id nullFlavor="NA" /> < code codeSystem="local" code="ALT" displayName="ALT (SGPT)" /> < statusCode code="completed" /> <effectiveTime value="" /> <value unit="U/L" xsi:type="PQ" value="66" /> < interpretationCode codeSystem="local" code="*" /> <referenceRange> <observationRange> <text>17-63</text> </ observationRange> </referenceRange> </observation> </ component> <component> <observation moodCode="EVN" classCode="OBS"> <templateId root="16.840.1.058242.10..22.4.2" /> <id nullFlavor="NA" /> <code codeSystem="local" code="AGAP" displayName= "Anion Gap" /> <statusCode code="completed" /> <effectiveTime value="" /> <value unit="mEq/L" xsi:type="PQ" value="7" /> <referenceRange> <observationRange> <text>3-20 </text> </observationRange> </referenceRange> </ observation> </component> <component> <observation moodCode= "EVN" classCode="OBS"> <templateId root="10.29.840.1.035967.10.20.22.4.2 " /> <id nullFlavor="NA" /> <code codeSystem="local" code="AST " displayName="AST (SGOT)" /> <statusCode code="completed" /> <effectiveTime value="" /> <value unit="U/L" xsi:type="PQ" value="115" /> <interpretationCode codeSystem="local" code="*" /> <referenceRange> <observationRange> <text>15-41</ text> </observationRange> </referenceRange> </ observation> </component> <component> <observation moodCode= "EVN" classCode="OBS"> <templateId root="10.29.840.1.922337..4.2 " /> <id nullFlavor="NA" /> <code codeSystem="local" code= "BILIT" displayName="Bilirubin Total" /> <statusCode code="completed" / > <effectiveTime value="" /> <value unit="mg/dL" xsi:type="PQ" value="0.7" /> <referenceRange> < observationRange> <text>0.2-1.2</text> </ observationRange> </referenceRange> </observation> </ component> <component> <observation moodCode="EVN" classCode="OBS"> <templateId root="10.29.840.1.855680.10..22.4.2" /> <id nullFlavor="NA" /> <code codeSystem="local" code="BUN" displayName="BUN " /> <statusCode code="completed" /> <effectiveTime value= "" /> <value unit="mg/dL" xsi:type="PQ" value="25" /> <interpretationCode codeSystem="local" code="*" /> <referenceRange > <observationRange> <text>4-20</text> </ observationRange> </referenceRange> </observation> </ component> <component> <observation moodCode="EVN" classCode="OBS"> <templateId root="216.840.1.343988.10..22.4.2" /> <id nullFlavor="NA" /> <code codeSystem="local" code="CA" displayName= "Calcium" /> <statusCode code="completed" /> <effectiveTime value="" /> <value unit="mg/dL" xsi:type="PQ" value="8.3" / > <interpretationCode codeSystem="local" code="*" /> < referenceRange> <observationRange> <text>8.6-10.0</text > </observationRange> </referenceRange> </observation > </component> <component> <observation moodCode="EVN" classCode="OBS"> <templateId root="216.840.1.091286.10..22.4.2" /> <id nullFlavor="NA" /> <code codeSystem="local" code="CL" displayName="Chloride" /> <statusCode code="completed" /> < effectiveTime value="" /> <value unit="mEq/L" xsi:type="PQ " value="106" /> <referenceRange> <observationRange> <text>99-109</text> </observationRange> </ referenceRange> </observation> </component> <component> <observation moodCode="EVN" classCode="OBS"> <templateId root= "10.29.840.1.382829.10..22.4.2" /> <id nullFlavor="NA" /> < code codeSystem="local" code="CO2" displayName="CO2" /> <statusCode code="completed" /> <effectiveTime value="" /> < value unit="mEq/L" xsi:type="PQ" value="21" /> <interpretationCode codeSystem="local" code="*" /> <referenceRange> < observationRange> <text>22-32</text> </observationRange > </referenceRange> </observation> </component> < component> <observation moodCode="EVN" classCode="OBS"> < templateId root="840.1.880670.10.4.2" /> <id nullFlavor="NA " /> <code codeSystem="local" code="CREAT" displayName="Creatinine" /> <statusCode code="completed" /> <effectiveTime value= "" /> <value unit="mg/dL" xsi:type="PQ" value="1.32" /> <interpretationCode codeSystem="local" code="*" /> < referenceRange> <observationRange> <text>0.64-1.27</text > </observationRange> </referenceRange> </observation > </component> <component> <observation moodCode="EVN" classCode="OBS"> <templateId root="10.29.840.1.571744.10.2022.4.2" /> <id nullFlavor="NA" /> <code codeSystem="local" code="GLOB" displayName="Globulin" /> <statusCode code="completed" /> < effectiveTime value="[id number]" /> <value unit="g/dL" xsi:type="PQ" value="3.4" /> <referenceRange> <observationRange> <text>1.9-4.3</text> </observationRange> </ referenceRange> </observation> </component> <component> <observation moodCode="EVN" classCode="OBS"> <templateId root= "840.1.973641.10.20.22.4.2" /> <id nullFlavor="NA" /> < code codeSystem="local" code="GLU" displayName="Glucose" /> < statusCode code="completed" /> <effectiveTime value="" /> <value unit="mg/dL" xsi:type="PQ" value="98" /> < referenceRange> <observationRange> <text>70-100</text> </observationRange> </referenceRange> </observation> </component> <component> <observation moodCode="EVN" classCode ="OBS"> <templateId root="840.1.936923.10..4.2" /> < id nullFlavor="NA" /> <code codeSystem="local" code="K" displayName= "Potassium" /> <statusCode code="completed" /> <effectiveTime value="" /> <value unit="mEq/L" xsi:type="PQ" value="5.5" / > <interpretationCode codeSystem="local" code="*" /> < referenceRange> <observationRange> <text>3.6-5.1</text> </observationRange> </referenceRange> </observation > </component> <component> <observation moodCode="EVN" classCode="OBS"> <templateId root="840.1.659199.10.20.22.4.2" /> <id nullFlavor="NA" /> <code codeSystem="local" code="TP" displayName="Protein" /> <statusCode code="completed" /> < effectiveTime value="" /> <value unit="g/dL" xsi:type="PQ" value="6.6" /> <referenceRange> <observationRange> <text>6.1-7.9</text> </observationRange> </ referenceRange> </observation> </component> <component> <observation moodCode="EVN" classCode="OBS"> <templateId root= "840.1.270383.07.02.22.4.2" /> <id nullFlavor="NA" /> < code codeSystem="local" code="NA" displayName="Sodium" /> <statusCode code="completed" /> <effectiveTime value="" /> < value unit="mEq/L" xsi:type="PQ" value="134" /> <interpretationCode codeSystem="local" code="*" /> <referenceRange> < observationRange> <text>136-144</text> </ observationRange> </referenceRange> </observation> </ component> </organizer> </entry> <entry> <organizer moodCode="EVN" classCode="BATTERY"> <templateId root="840.1.462049.07.02.22.4.1" /> <id nullFlavor="NA" /> <code codeSystem="local" code="GFR" displayName ="eGFR" /> <statusCode code="completed" /> <component> < observation moodCode="EVN" classCode="OBS"> <templateId root= "840.1.497196.22.4.2" /> <id nullFlavor="NA" /> < code codeSystem="local" code="GFR" displayName="eGFR" /> <statusCode code="completed" /> <effectiveTime value="412727895131" /> < value unit="mL/min" xsi:type="PQ" value="58" /> <interpretationCode codeSystem="local" code="*" /> <referenceRange> < observationRange> <text>>60</text> </observationRange > </referenceRange> </observation> </component> </ organizer> </entry> <entry> <organizer moodCode="EVN" classCode="BATTERY"> <templateId root="16.840.1.090196.10..22.4.1" /> <id nullFlavor= "NA" /> <code codeSystem="local" code="TROP" displayName="Troponin" /> <statusCode code="completed" /> <component> <observation moodCode= "EVN" classCode="OBS"> <templateId root="16.840.1.137014.10...4.2 " /> <id nullFlavor="NA" /> <code codeSystem="local" code= "TROP" displayName="Troponin" /> <statusCode code="completed" /> <effectiveTime value="047915886757" /> <value unit="ng/mL" xsi:type ="PQ" value="0.23" /> <interpretationCode codeSystem="local" code="" /> <referenceRange> <observationRange> <text>& lt;0.06</text> </observationRange> </referenceRange> </observation> </component> </organizer> </entry> <entry> < organizer moodCode="EVN" classCode="BATTERY"> <templateId root= "16.840.1.654781.10...4.1" /> <id nullFlavor="NA" /> <code codeSystem="local" code="BNP" displayName="B-Type Natriuretic Peptide" /> < statusCode code="completed" /> <component> <observation moodCode= "EVN" classCode="OBS"> <templateId root="2.16.840.1.104462.10..22.4.2 " /> <id nullFlavor="NA" /> <code codeSystem="local" code="BNP " displayName="B-Type Natriuretic Peptide" /> <statusCode code= "completed" /> <effectiveTime value="" /> <value unit="pg/mL" xsi:type="PQ" value="1880" /> <interpretationCode codeSystem="local" code="*" /> <referenceRange> < observationRange> <text>0-99</text> </observationRange> </referenceRange> </observation> </component> </ organizer> </entry> <entry> <organizer moodCode="EVN" classCode="BATTERY"> <templateId root="2.16.840.1.247773.10..22.4.1" /> <id nullFlavor= "NA" /> <code codeSystem="local" code="UDRGH" displayName="Urine Drug Screen" /> <statusCode code="completed" /> <component> < observation moodCode="EVN" classCode="OBS"> <templateId root= "2.16.840.1.283506.10..22.4.2" /> <id nullFlavor="NA" /> < code codeSystem="local" code="UAMP1" displayName="Amph/Meth/Ecstasy" /> <statusCode code="completed" /> <effectiveTime value="866594889921" / > <value unit="NA" xsi:type="PQ" value="Positive" /> < interpretationCode codeSystem="local" code="*" /> <referenceRange> <observationRange> <text /> </observationRange> </referenceRange> </observation> </component> < component> <observation moodCode="EVN" classCode="OBS"> < templateId root="216.840.1.451736.10..4.2" /> <id nullFlavor="NA " /> <code codeSystem="local" code="UBAR1" displayName="Barbiturates" / > <statusCode code="completed" /> <effectiveTime value= "" /> <value unit="NA" xsi:type="PQ" value="Negative" /> <referenceRange> <observationRange> <text /> </observationRange> </referenceRange> </observation> </component> <component> <observation moodCode="EVN" classCode= "OBS"> <templateId root="216.840.1.600139...4.2" /> < id nullFlavor="NA" /> <code codeSystem="local" code="UBEN1" displayName ="Benzodiazepine" /> <statusCode code="completed" /> < effectiveTime value="" /> <value unit="NA" xsi:type="PQ" value="Negative" /> <referenceRange> <observationRange> <text /> </observationRange> </referenceRange> </observation> </component> <component> <observation moodCode="EVN" classCode="OBS"> <templateId root= "16.840.1.957151.07.02.22.4.2" /> <id nullFlavor="NA" /> < code codeSystem="local" code="UCAN1" displayName="Cannabinoid" /> < statusCode code="completed" /> <effectiveTime value="" /> <value unit="NA" xsi:type="PQ" value="Negative" /> < referenceRange> <observationRange> <text /> < /observationRange> </referenceRange> </observation> </ component> <component> <observation moodCode="EVN" classCode="OBS"> <templateId root="216.840.1.269375.10.4.2" /> <id nullFlavor="NA" /> <code codeSystem="local" code="UCOC1" displayName= "Cocaine" /> <statusCode code="completed" /> <effectiveTime value="" /> <value unit="NA" xsi:type="PQ" value="Negative " /> <referenceRange> <observationRange> <text /> </observationRange> </referenceRange> </ observation> </component> <component> <observation moodCode= "EVN" classCode="OBS"> <templateId root="216.840.1.363411.07.02.22.4.2 " /> <id nullFlavor="NA" /> <code codeSystem="local" code= "UMTD1" displayName="EDDP (Methadone met.)" /> <statusCode code= "completed" /> <effectiveTime value="" /> <value unit="NA" xsi:type="PQ" value="Negative" /> <referenceRange> <observationRange> <text /> </observationRange> </referenceRange> </observation> </component> <component> <observation moodCode="EVN" classCode="OBS"> <templateId root= "16.840.1.743135.10.22.4.2" /> <id nullFlavor="NA" /> < code codeSystem="local" code="UOPI1" displayName="Opiate" /> < statusCode code="completed" /> <effectiveTime value="" /> <value unit="NA" xsi:type="PQ" value="Positive" /> < interpretationCode codeSystem="local" code="*" /> <referenceRange> <observationRange> <text /> </observationRange> </referenceRange> </observation> </component> < component> <observation moodCode="EVN" classCode="OBS"> < templateId root="16.840.1.256600.10..22.4.2" /> <id nullFlavor="NA " /> <code codeSystem="local" code="UPCP1" displayName="Phencyclidine ( PCP)" /> <statusCode code="completed" /> <effectiveTime value= "753587574337" /> <value unit="NA" xsi:type="PQ" value="Negative" /> <referenceRange> <observationRange> <text /> </observationRange> </referenceRange> </observation> </component> </organizer> </entry> <entry> <organizer moodCode="EVN " classCode="BATTERY"> <templateId root="216.840.1.659346.10..22.4.1" / > <id nullFlavor="NA" /> <code codeSystem="local" code="TROP" displayName="Troponin" /> <statusCode code="completed" /> <component> <observation moodCode="EVN" classCode="OBS"> <templateId root= "216.840.1.862567.10..22.4.2" /> <id nullFlavor="NA" /> < code codeSystem="local" code="TROP" displayName="Troponin" /> < statusCode code="completed" /> <effectiveTime value="062635382822" /> <value unit="ng/mL" xsi:type="PQ" value="0.46" /> < interpretationCode codeSystem="local" code="" /> <referenceRange> <observationRange> <text><0.06</text> </ observationRange> </referenceRange> </observation> </ component> </organizer> </entry> <entry> <organizer moodCode="EVN" classCode="BATTERY"> <templateId root="216.840.1.375055.10..4.1" /> <id nullFlavor="NA" /> <code codeSystem="local" code="ABGRT" displayName="Blood Gases, Arterial (RT)" /> <statusCode code="completed" / > <component> <observation moodCode="EVN" classCode="OBS"> <templateId root="216.840.1.700909.10..4.2" /> <id nullFlavor="NA " /> <code codeSystem="local" code="YNES" displayName="Arterial Base Excess" /> <statusCode code="completed" /> <effectiveTime value="" /> <value unit="NA" xsi:type="PQ" value="-7" /> <interpretationCode codeSystem="local" code="*" /> < referenceRange> <observationRange> <text>0-2</text> </observationRange> </referenceRange> </observation> </component> <component> <observation moodCode="EVN" classCode= "OBS"> <templateId root="216.840.1.246132...4.2" /> < id nullFlavor="NA" /> <code codeSystem="local" code="AHCO3" displayName ="Arterial Bicarbonate" /> <statusCode code="completed" /> < effectiveTime value="" /> <value unit="mEq/L" xsi:type="PQ " value="15" /> <interpretationCode codeSystem="local" code="*" /> <referenceRange> <observationRange> <text>22-26</ text> </observationRange> </referenceRange> </ observation> </component> <component> <observation moodCode= "EVN" classCode="OBS"> <templateId root="216.840.1.972202.10.20.22.4.2 " /> <id nullFlavor="NA" /> <code codeSystem="local" code= "AOSAT" displayName="Arterial O2 Saturation" /> <statusCode code= "completed" /> <effectiveTime value="" /> <value unit="%" xsi:type="PQ" value="90.0" /> <referenceRange> <observationRange> <text>90.0-97.0</text> </ observationRange> </referenceRange> </observation> </ component> <component> <observation moodCode="EVN" classCode="OBS"> <templateId root="216.840.1.508771.07.02.22.4.2" /> <id nullFlavor="NA" /> <code codeSystem="local" code="APCO2" displayName= "Arterial PCO2" /> <statusCode code="completed" /> < effectiveTime value="471451707240" /> <value unit="mmHg" xsi:type="PQ" value="23" /> <interpretationCode codeSystem="local" code="*" /> <referenceRange> <observationRange> <text>35-45</ text> </observationRange> </referenceRange> </ observation> </component> <component> <observation moodCode= "EVN" classCode="OBS"> <templateId root="216.840.1.228553.10.2022.4.2 " /> <id nullFlavor="NA" /> <code codeSystem="local" code="APH " displayName="Arterial PH" /> <statusCode code="completed" /> <effectiveTime value="732159927680" /> <value unit="NA" xsi:type="PQ " value="7.43" /> <referenceRange> <observationRange> <text>7.35-7.45</text> </observationRange> </ referenceRange> </observation> </component> <component> <observation moodCode="EVN" classCode="OBS"> <templateId root= "216.840.1.397563.10..4.2" /> <id nullFlavor="NA" /> < code codeSystem="local" code="APO2" displayName="Arterial PO2" /> < statusCode code="completed" /> <effectiveTime value="666769032940" /> <value unit="mmHg" xsi:type="PQ" value="58" /> < interpretationCode codeSystem="local" code="*" /> <referenceRange> <observationRange> <text>80-100</text> </ observationRange> </referenceRange> </observation> </ component> <component> <observation moodCode="EVN" classCode="OBS"> <templateId root="10.29.840.1.822988.07.02.22.4.2" /> <id nullFlavor="NA" /> <code codeSystem="local" code="AFLOW" displayName= "Arterial LPM" /> <statusCode code="completed" /> < effectiveTime value="157467891976" /> <value unit="L/min" xsi:type="PQ " value="8.00" /> <referenceRange> <observationRange> <text /> </observationRange> </referenceRange> </observation> </component> <component> <observation moodCode="EVN" classCode="OBS"> <templateId root= "10.29.840.1.275535.10..22.4.2" /> <id nullFlavor="NA" /> < code codeSystem="local" code="AO2PN" displayName="O2 Panel" /> < statusCode code="completed" /> <effectiveTime value="554916195235" /> <value unit="" xsi:type="PQ" value="SEE BELOW" /> < referenceRange> <observationRange> <text /> < /observationRange> </referenceRange> </observation> </ component> </organizer> </entry> <entry> <organizer moodCode="EVN" classCode="BATTERY"> <templateId root="10.29.840.1.276718.10..22.4.1" /> <id nullFlavor="NA" /> <code codeSystem="local" code="LACID" displayName="Lactic Acid Venous" /> <statusCode code="completed" /> < component> <observation moodCode="EVN" classCode="OBS"> < templateId root="10.29.840.1.260290.10..22.4.2" /> <id nullFlavor="NA " /> <code codeSystem="local" code="LACID" displayName="Lactic Acid Venous" /> <statusCode code="completed" /> <effectiveTime value="456601221140" /> <value unit="mEq/L" xsi:type="PQ" value="3.8" / > <interpretationCode codeSystem="local" code="*" /> < referenceRange> <observationRange> <text>0.5-2.0</text> </observationRange> </referenceRange> </observation > </component> </organizer> </entry> <entry> <organizer moodCode= "EVN" classCode="BATTERY"> <templateId root="10.29.840.1.943245.10.20.22.4.1 " /> <id nullFlavor="NA" /> <code codeSystem="local" code="BMP" displayName="Basic Metabolic Panel (BMP)" /> <statusCode code="completed" / > <component> <observation moodCode="EVN" classCode="OBS"> <templateId root="216.840.1.003891.10.4.2" /> <id nullFlavor="NA " /> <code codeSystem="local" code="AGAP" displayName="Anion Gap" /> <statusCode code="completed" /> <effectiveTime value= "" /> <value unit="mEq/L" xsi:type="PQ" value="13" /> <referenceRange> <observationRange> <text>3-20</ text> </observationRange> </referenceRange> </ observation> </component> <component> <observation moodCode= "EVN" classCode="OBS"> <templateId root="10.29.840.1.678080.07.02.22.4.2 " /> <id nullFlavor="NA" /> <code codeSystem="local" code="BUN " displayName="BUN" /> <statusCode code="completed" /> < effectiveTime value="" /> <value unit="mg/dL" xsi:type="PQ " value="30" /> <interpretationCode codeSystem="local" code="*" /> <referenceRange> <observationRange> <text>4-20</ text> </observationRange> </referenceRange> </ observation> </component> <component> <observation moodCode= "EVN" classCode="OBS"> <templateId root="10.29.840.1.369300..22.4.2 " /> <id nullFlavor="NA" /> <code codeSystem="local" code="CA " displayName="Calcium" /> <statusCode code="completed" /> < effectiveTime value="" /> <value unit="mg/dL" xsi:type="PQ " value="8.0" /> <interpretationCode codeSystem="local" code="*" /> <referenceRange> <observationRange> <text>8.6- 10.0</text> </observationRange> </referenceRange> </ observation> </component> <component> <observation moodCode= "EVN" classCode="OBS"> <templateId root="16.840.1.854534.07.02.22.4.2 " /> <id nullFlavor="NA" /> <code codeSystem="local" code="CL " displayName="Chloride" /> <statusCode code="completed" /> < effectiveTime value="" /> <value unit="mEq/L" xsi:type="PQ " value="104" /> <referenceRange> <observationRange> <text>99-109</text> </observationRange> </ referenceRange> </observation> </component> <component> <observation moodCode="EVN" classCode="OBS"> <templateId root= "10.29.840.1.200755.07.02.22.4.2" /> <id nullFlavor="NA" /> < code codeSystem="local" code="CO2" displayName="CO2" /> <statusCode code="completed" /> <effectiveTime value="" /> < value unit="mEq/L" xsi:type="PQ" value="17" /> <interpretationCode codeSystem="local" code="*" /> <referenceRange> < observationRange> <text>22-32</text> </observationRange > </referenceRange> </observation> </component> < component> <observation moodCode="EVN" classCode="OBS"> < templateId root="16.840.1.520237.22.4.2" /> <id nullFlavor="NA " /> <code codeSystem="local" code="CREAT" displayName="Creatinine" /> <statusCode code="completed" /> <effectiveTime value= "" /> <value unit="mg/dL" xsi:type="PQ" value="1.47" /> <interpretationCode codeSystem="local" code="*" /> < referenceRange> <observationRange> <text>0.64-1.27</text > </observationRange> </referenceRange> </observation > </component> <component> <observation moodCode="EVN" classCode="OBS"> <templateId root="2.16.840.1.520124.07.02.224.2" /> <id nullFlavor="NA" /> <code codeSystem="local" code="GLU" displayName="Glucose" /> <statusCode code="completed" /> < effectiveTime value="" /> <value unit="mg/dL" xsi:type="PQ " value="70" /> <referenceRange> <observationRange> <text>70-100</text> </observationRange> </ referenceRange> </observation> </component> <component> <observation moodCode="EVN" classCode="OBS"> <templateId root= "216.840.1.379098.10.4.2" /> <id nullFlavor="NA" /> < code codeSystem="local" code="K" displayName="Potassium" /> < statusCode code="completed" /> <effectiveTime value="" /> <value unit="mEq/L" xsi:type="PQ" value="6.2" /> < interpretationCode codeSystem="local" code="" /> <referenceRange> <observationRange> <text>3.6-5.1</text> </ observationRange> </referenceRange> </observation> </ component> <component> <observation moodCode="EVN" classCode="OBS"> <templateId root="2.16.840.1.359266.10.4.2" /> <id nullFlavor="NA" /> <code codeSystem="local" code="NA" displayName= "Sodium" /> <statusCode code="completed" /> <effectiveTime value="" /> <value unit="mEq/L" xsi:type="PQ" value="134" / > <interpretationCode codeSystem="local" code="*" /> < referenceRange> <observationRange> <text>136-144</text> </observationRange> </referenceRange> </observation > </component> </organizer> </entry> <entry> <organizer moodCode= "EVN" classCode="BATTERY"> <templateId root="2.16.840.1.986185.10..4.1 " /> <id nullFlavor="NA" /> <code codeSystem="local" code="GFR" displayName="eGFR" /> <statusCode code="completed" /> <component> <observation moodCode="EVN" classCode="OBS"> <templateId root= "2.16.840.1.704243.10...4.2" /> <id nullFlavor="NA" /> < code codeSystem="local" code="GFR" displayName="eGFR" /> <statusCode code="completed" /> <effectiveTime value="" /> < value unit="mL/min" xsi:type="PQ" value="51" /> <interpretationCode codeSystem="local" code="*" /> <referenceRange> < observationRange> <text>>60</text> </observationRange > </referenceRange> </observation> </component> </ organizer> </entry> <entry> <organizer moodCode="EVN" classCode="BATTERY"> <templateId root="10.29.840.1.585761.07.02.22.4.1" /> <id nullFlavor= "NA" /> <code codeSystem="local" code="GLUN" displayName="Glucose NPT" /> <statusCode code="completed" /> <component> <observation moodCode="EVN" classCode="OBS"> <templateId root= "840.1.360436.07.02.224.2" /> <id nullFlavor="NA" /> < code codeSystem="local" code="GLUN" displayName="Glucose NPT" /> < statusCode code="completed" /> <effectiveTime value="941768536398" /> <value unit="mg/dL" xsi:type="PQ" value="47" /> < interpretationCode codeSystem="local" code="*" /> <referenceRange> <observationRange> <text>70-100</text> </ observationRange> </referenceRange> </observation> </ component> </organizer> </entry> <entry> <organizer moodCode="EVN" classCode="BATTERY"> <templateId root="840.1.699296.07.02.22.4.1" /> <id nullFlavor="NA" /> <code codeSystem="local" code="GLUN" displayName="Glucose NPT" /> <statusCode code="completed" /> < component> <observation moodCode="EVN" classCode="OBS"> < templateId root="10.29.840.1.240889.07.02.22.4.2" /> <id nullFlavor="NA " /> <code codeSystem="local" code="GLUN" displayName="Glucose NPT" / > <statusCode code="completed" /> <effectiveTime value= "" /> <value unit="mg/dL" xsi:type="PQ" value="43" /> <interpretationCode codeSystem="local" code="*" /> <referenceRange > <observationRange> <text>70-100</text> </ observationRange> </referenceRange> </observation> </ component> </organizer> </entry> <entry> <organizer moodCode="EVN" classCode="BATTERY"> <templateId root="16.840.1.524847.10..22.4.1" /> <id nullFlavor="NA" /> <code codeSystem="local" code="GLUN" displayName="Glucose NPT" /> <statusCode code="completed" /> < component> <observation moodCode="EVN" classCode="OBS"> < templateId root="16.840.1.484682.10..22.4.2" /> <id nullFlavor="NA " /> <code codeSystem="local" code="GLUN" displayName="Glucose NPT" / > <statusCode code="completed" /> <effectiveTime value= "430072603132" /> <value unit="mg/dL" xsi:type="PQ" value="67" /> <interpretationCode codeSystem="local" code="*" /> <referenceRange > <observationRange> <text>70-100</text> </ observationRange> </referenceRange> </observation> </ component> </organizer> </entry> <entry> <organizer moodCode="EVN" classCode="BATTERY"> <templateId root="10.29.840.1.846564.10.20.22.4.1" /> <id nullFlavor="NA" /> <code codeSystem="local" code="GLUN" displayName="Glucose NPT" /> <statusCode code="completed" /> < component> <observation moodCode="EVN" classCode="OBS"> < templateId root="216.840.1.599476.10.22.4.2" /> <id nullFlavor="NA " /> <code codeSystem="local" code="GLUN" displayName="Glucose NPT" / > <statusCode code="completed" /> <effectiveTime value= "" /> <value unit="mg/dL" xsi:type="PQ" value="97" /> <referenceRange> <observationRange> <text>70-100</ text> </observationRange> </referenceRange> </ observation> </component> </organizer> </entry> <entry> <organizer moodCode="EVN" classCode="BATTERY"> <templateId root= "216.840.1.064753.1022.4.1" /> <id nullFlavor="NA" /> <code codeSystem="local" code="UA" displayName="Urinalysis with reflex microscopic" / > <statusCode code="completed" /> <component> <observation moodCode="EVN" classCode="OBS"> <templateId root= "2.16.840.1.171760.10..22.4.2" /> <id nullFlavor="NA" /> < code codeSystem="local" code="UAPP" displayName="Appearance" /> < statusCode code="completed" /> <effectiveTime value="[id number]" /> <value unit="NA" xsi:type="PQ" value="Cloudy" /> < interpretationCode codeSystem="local" code="*" /> <referenceRange> <observationRange> <text /> </observationRange> </referenceRange> </observation> </component> < component> <observation moodCode="EVN" classCode="OBS"> < templateId root="16.840.1.841754.10...4.2" /> <id nullFlavor="NA " /> <code codeSystem="local" code="UBIL" displayName="Bilirubin" /> <statusCode code="completed" /> <effectiveTime value= "" /> <value unit="NA" xsi:type="PQ" value="Negative" /> <referenceRange> <observationRange> <text> Negative</text> </observationRange> </referenceRange> </observation> </component> <component> <observation moodCode ="EVN" classCode="OBS"> <templateId root= "16.840.1.639532.10..4.2" /> <id nullFlavor="NA" /> < code codeSystem="local" code="UBLD" displayName="Blood" /> <statusCode code="completed" /> <effectiveTime value="" /> < value unit="NA" xsi:type="PQ" value="Pos 1+" /> <interpretationCode codeSystem="local" code="*" /> <referenceRange> < observationRange> <text>Negative</text> </ observationRange> </referenceRange> </observation> </ component> <component> <observation moodCode="EVN" classCode="OBS"> <templateId root="16.840.1.662818.10...4.2" /> <id nullFlavor="NA" /> <code codeSystem="local" code="UCOLR" displayName= "Color" /> <statusCode code="completed" /> <effectiveTime value="" /> <value unit="NA" xsi:type="PQ" value="Yellow" / > <referenceRange> <observationRange> <text /> </observationRange> </referenceRange> </observation > </component> <component> <observation moodCode="EVN" classCode="OBS"> <templateId root="216.840.1.819651.10.4.2" /> <id nullFlavor="NA" /> <code codeSystem="local" code="UGLU" displayName="Glucose, Urine" /> <statusCode code="completed" /> <effectiveTime value="" /> <value unit="" xsi:type="PQ" value="Pos 1+" /> <interpretationCode codeSystem="local" code="*" /> <referenceRange> <observationRange> <text> Negative</text> </observationRange> </referenceRange> </observation> </component> <component> <observation moodCode ="EVN" classCode="OBS"> <templateId root= "10.29.840.1.750237.07.02.22.4.2" /> <id nullFlavor="NA" /> < code codeSystem="local" code="UKET" displayName="Ketones" /> < statusCode code="completed" /> <effectiveTime value="" /> <value unit="" xsi:type="PQ" value="Negative" /> < referenceRange> <observationRange> <text>Negative</text > </observationRange> </referenceRange> </observation > </component> <component> <observation moodCode="EVN" classCode="OBS"> <templateId root="16.840.1.962579.07.02.22.4.2" /> <id nullFlavor="NA" /> <code codeSystem="local" code="ULEU" displayName="Leukocyte Esterase" /> <statusCode code="completed" /> <effectiveTime value="" /> <value unit="NA" xsi:type ="PQ" value="Negative" /> <referenceRange> <observationRange > <text>Negative</text> </observationRange> </ referenceRange> </observation> </component> <component> <observation moodCode="EVN" classCode="OBS"> <templateId root= "10.29.840.1.932511.10.4.2" /> <id nullFlavor="NA" /> < code codeSystem="local" code="UNIT" displayName="Nitrites" /> < statusCode code="completed" /> <effectiveTime value="" /> <value unit="NA" xsi:type="PQ" value="Negative" /> < referenceRange> <observationRange> <text>Negative</text > </observationRange> </referenceRange> </observation > </component> <component> <observation moodCode="EVN" classCode="OBS"> <templateId root="10.29.840.1.163542.07.02.22.4.2" /> <id nullFlavor="NA" /> <code codeSystem="local" code="UPH" displayName="pH" /> <statusCode code="completed" /> < effectiveTime value="" /> <value unit="NA" xsi:type="PQ" value="5.0" /> <referenceRange> <observationRange> <text>5.0-8.0</text> </observationRange> </ referenceRange> </observation> </component> <component> <observation moodCode="EVN" classCode="OBS"> <templateId root= "10.29.840.1.690878.10.4.2" /> <id nullFlavor="NA" /> < code codeSystem="local" code="UPRO" displayName="Protein" /> < statusCode code="completed" /> <effectiveTime value="" /> <value unit="NA" xsi:type="PQ" value="Pos 2+" /> < interpretationCode codeSystem="local" code="*" /> <referenceRange> <observationRange> <text>Negative</text> </ observationRange> </referenceRange> </observation> </ component> <component> <observation moodCode="EVN" classCode="OBS"> <templateId root="10.29.840.1.279828.07.02.22.4.2" /> <id nullFlavor="NA" /> <code codeSystem="local" code="USPG" displayName= "Specific [place]" /> <statusCode code="completed" /> < effectiveTime value="" /> <value unit="NA" xsi:type="PQ" value="1.020" /> <referenceRange> <observationRange> <text>1.003-1.030</text> </observationRange> </ referenceRange> </observation> </component> <component> <observation moodCode="EVN" classCode="OBS"> <templateId root= "840.1.094403.07.02.22.4.2" /> <id nullFlavor="NA" /> < code codeSystem="local" code="UTYP" displayName="UA Collection type" /> <statusCode code="completed" /> <effectiveTime value="[id number]" / > <value unit="NA" xsi:type="PQ" value="Clean Catch" /> < referenceRange> <observationRange> <text /> < /observationRange> </referenceRange> </observation> </ component> <component> <observation moodCode="EVN" classCode="OBS"> <templateId root="10.29.840.1.443640.07.02.22.4.2" /> <id nullFlavor="NA" /> <code codeSystem="local" code="UURO" displayName= "Urobilinogen" /> <statusCode code="completed" /> < effectiveTime value="826450691260" /> <value unit="mg/dL" xsi:type="PQ " value="4.0" /> <referenceRange> <observationRange> <text><1.0</text> </observationRange> </ referenceRange> </observation> </component> </organizer> </entry > <entry> <organizer moodCode="EVN" classCode="BATTERY"> <templateId root="16.840.1.661462.10...4.1" /> <id nullFlavor="NA" /> <code codeSystem="local" code="UMIC" displayName="Urine Microscopic" /> < statusCode code="completed" /> <component> <observation moodCode= "EVN" classCode="OBS"> <templateId root="16.840.1.002534.10...4.2 " /> <id nullFlavor="NA" /> <code codeSystem="local" code= "UBAC" displayName="Bacteria" /> <statusCode code="completed" /> <effectiveTime value="093183307346" /> <value unit="NA" xsi:type= "PQ" value="Rare" /> <referenceRange> <observationRange> <text /> </observationRange> </referenceRange> </observation> </component> <component> <observation moodCode="EVN" classCode="OBS"> <templateId root= "16.840.1.624969.07.02.22.4.2" /> <id nullFlavor="NA" /> < code codeSystem="local" code="UEPI" displayName="Epithelial Cells" /> < statusCode code="completed" /> <effectiveTime value="" /> <value unit="/HPF" xsi:type="PQ" value="0" /> <referenceRange > <observationRange> <text /> </ observationRange> </referenceRange> </observation> </ component> <component> <observation moodCode="EVN" classCode="OBS"> <templateId root="216.840.1.661544.07.02.22.4.2" /> <id nullFlavor="NA" /> <code codeSystem="local" code="UHCST" displayName= "Hyaline Casts" /> <statusCode code="completed" /> < effectiveTime value="" /> <value unit="/LPF" xsi:type="PQ" value="4" /> <interpretationCode codeSystem="local" code="*" /> <referenceRange> <observationRange> <text>0-3</text> </observationRange> </referenceRange> </observation > </component> <component> <observation moodCode="EVN" classCode="OBS"> <templateId root="10.29.840.1.108094.07.02.22.4.2" /> <id nullFlavor="NA" /> <code codeSystem="local" code="URBC" displayName="RBC, Urine" /> <statusCode code="completed" /> < effectiveTime value="" /> <value unit="/HPF" xsi:type="PQ" value="2" /> <referenceRange> <observationRange> <text>0-2</text> </observationRange> </referenceRange> </observation> </component> <component> <observation moodCode="EVN" classCode="OBS"> <templateId root= "216.840.1.627655.07.02.22.4.2" /> <id nullFlavor="NA" /> < code codeSystem="local" code="UMUC" displayName="Urine Mucus" /> < statusCode code="completed" /> <effectiveTime value="" /> <value unit="NA" xsi:type="PQ" value="Present" /> < referenceRange> <observationRange> <text /> < /observationRange> </referenceRange> </observation> </ component> <component> <observation moodCode="EVN" classCode="OBS"> <templateId root="16.840.1.424314.104.2" /> <id nullFlavor="NA" /> <code codeSystem="local" code="UWBC" displayName= "WBC, Urine" /> <statusCode code="completed" /> < effectiveTime value="" /> <value unit="/HPF" xsi:type="PQ" value="0" /> <referenceRange> <observationRange> <text>0-4</text> </observationRange> </referenceRange> </observation> </component> </organizer> </entry> <entry> < organizer moodCode="EVN" classCode="BATTERY"> <templateId root= "16.840.1.965817.07.02.22.4.1" /> <id nullFlavor="NA" /> <code codeSystem="local" code="UNAR" displayName="Sodium Random Urine" /> < statusCode code="completed" /> <component> <observation moodCode= "EVN" classCode="OBS"> <templateId root="16.840.1.766152.07.02.22.4.2 " /> <id nullFlavor="NA" /> <code codeSystem="local" code= "UNAR" displayName="Sodium Random Urine" /> <statusCode code="completed " /> <effectiveTime value="408807615081" /> <value unit="mEq/L " xsi:type="PQ" value="101" /> <referenceRange> < observationRange> <text /> </observationRange> </referenceRange> </observation> </component> </organizer> </ entry> <entry> <organizer moodCode="EVN" classCode="BATTERY"> < templateId root="10.29.840.1.221152.10.22.4.1" /> <id nullFlavor="NA" /> <code codeSystem="local" code="UCRER" displayName="Creatinine Random Urine " /> <statusCode code="completed" /> <component> <observation moodCode="EVN" classCode="OBS"> <templateId root= "10.29.840.1.993063.10..22.4.2" /> <id nullFlavor="NA" /> < code codeSystem="local" code="UCRER" displayName="Creatinine Random Urine" /> <statusCode code="completed" /> <effectiveTime value= "" /> <value unit="mg/dL" xsi:type="PQ" value="80" /> <referenceRange> <observationRange> <text /> </observationRange> </referenceRange> </observation> </component> </organizer> </entry> <entry> <organizer moodCode="EVN" classCode="BATTERY"> <templateId root="10.29.840.1.476158.10.22.4.1" /> <id nullFlavor="NA" /> <code codeSystem="local" code="LACID" displayName="Lactic Acid Venous" /> <statusCode code="completed" /> < component> <observation moodCode="EVN" classCode="OBS"> < templateId root="10.29.840.1.629737.07.02.22.4.2" /> <id nullFlavor="NA " /> <code codeSystem="local" code="LACID" displayName="Lactic Acid Venous" /> <statusCode code="completed" /> <effectiveTime value="287780507865" /> <value unit="mEq/L" xsi:type="PQ" value="2.5" / > <interpretationCode codeSystem="local" code="*" /> < referenceRange> <observationRange> <text>0.5-2.0</text> </observationRange> </referenceRange> </observation > </component> </organizer> </entry> <entry> <organizer moodCode= "EVN" classCode="BATTERY"> <templateId root="216.840.1.039526.10..22.4.1 " /> <id nullFlavor="NA" /> <code codeSystem="local" code="TROP" displayName="Troponin" /> <statusCode code="completed" /> <component> <observation moodCode="EVN" classCode="OBS"> <templateId root= "216.840.1.297551.10..22.4.2" /> <id nullFlavor="NA" /> < code codeSystem="local" code="TROP" displayName="Troponin" /> < statusCode code="completed" /> <effectiveTime value="099187386410" /> <value unit="ng/mL" xsi:type="PQ" value="1.14" /> < interpretationCode codeSystem="local" code="" /> <referenceRange> <observationRange> <text><0.06</text> </ observationRange> </referenceRange> </observation> </ component> </organizer> </entry> <entry> <organizer moodCode="EVN" classCode="BATTERY"> <templateId root="840.1.822371.10..22.4.1" /> <id nullFlavor="NA" /> <code codeSystem="local" code="BMP" displayName ="Basic Metabolic Panel (BMP)" /> <statusCode code="completed" /> < component> <observation moodCode="EVN" classCode="OBS"> < templateId root="840.1.218222.07.02.22.4.2" /> <id nullFlavor="NA " /> <code codeSystem="local" code="AGAP" displayName="Anion Gap" /> <statusCode code="completed" /> <effectiveTime value= "" /> <value unit="mEq/L" xsi:type="PQ" value="10" /> <referenceRange> <observationRange> <text>3-20</ text> </observationRange> </referenceRange> </ observation> </component> <component> <observation moodCode= "EVN" classCode="OBS"> <templateId root="840.1.340615.07.02.22.4.2 " /> <id nullFlavor="NA" /> <code codeSystem="local" code="BUN " displayName="BUN" /> <statusCode code="completed" /> < effectiveTime value="" /> <value unit="mg/dL" xsi:type="PQ " value="31" /> <interpretationCode codeSystem="local" code="*" /> <referenceRange> <observationRange> <text>4-20</ text> </observationRange> </referenceRange> </ observation> </component> <component> <observation moodCode= "EVN" classCode="OBS"> <templateId root="10.29.840.1.071811...4.2 " /> <id nullFlavor="NA" /> <code codeSystem="local" code="CA " displayName="Calcium" /> <statusCode code="completed" /> < effectiveTime value="" /> <value unit="mg/dL" xsi:type="PQ " value="8.0" /> <interpretationCode codeSystem="local" code="*" /> <referenceRange> <observationRange> <text>8.6- 10.0</text> </observationRange> </referenceRange> </ observation> </component> <component> <observation moodCode= "EVN" classCode="OBS"> <templateId root="216.840.1.163971.07.02.22.4.2 " /> <id nullFlavor="NA" /> <code codeSystem="local" code="CL " displayName="Chloride" /> <statusCode code="completed" /> < effectiveTime value="" /> <value unit="mEq/L" xsi:type="PQ " value="105" /> <referenceRange> <observationRange> <text>99-109</text> </observationRange> </ referenceRange> </observation> </component> <component> <observation moodCode="EVN" classCode="OBS"> <templateId root= "216.840.1.342230.07.02.22.4.2" /> <id nullFlavor="NA" /> < code codeSystem="local" code="CO2" displayName="CO2" /> <statusCode code="completed" /> <effectiveTime value="" /> < value unit="mEq/L" xsi:type="PQ" value="17" /> <interpretationCode codeSystem="local" code="*" /> <referenceRange> < observationRange> <text>22-32</text> </observationRange > </referenceRange> </observation> </component> < component> <observation moodCode="EVN" classCode="OBS"> < templateId root="216.840.1.873527.10..4.2" /> <id nullFlavor="NA " /> <code codeSystem="local" code="CREAT" displayName="Creatinine" /> <statusCode code="completed" /> <effectiveTime value= "" /> <value unit="mg/dL" xsi:type="PQ" value="1.44" /> <interpretationCode codeSystem="local" code="*" /> < referenceRange> <observationRange> <text>0.64-1.27</text > </observationRange> </referenceRange> </observation > </component> <component> <observation moodCode="EVN" classCode="OBS"> <templateId root="10.29.840.1.334250.07.02.224.2" /> <id nullFlavor="NA" /> <code codeSystem="local" code="GLU" displayName="Glucose" /> <statusCode code="completed" /> < effectiveTime value="" /> <value unit="mg/dL" xsi:type="PQ " value="69" /> <interpretationCode codeSystem="local" code="*" /> <referenceRange> <observationRange> <text>70-100</ text> </observationRange> </referenceRange> </ observation> </component> <component> <observation moodCode= "EVN" classCode="OBS"> <templateId root="10.29.840.1.302731.10..4.2 " /> <id nullFlavor="NA" /> <code codeSystem="local" code="K" displayName="Potassium" /> <statusCode code="completed" /> < effectiveTime value="" /> <value unit="mEq/L" xsi:type="PQ " value="4.5" /> <referenceRange> <observationRange> <text>3.6-5.1</text> </observationRange> </ referenceRange> </observation> </component> <component> <observation moodCode="EVN" classCode="OBS"> <templateId root= "840.1.162622.07.02.22.4.2" /> <id nullFlavor="NA" /> < code codeSystem="local" code="NA" displayName="Sodium" /> <statusCode code="completed" /> <effectiveTime value="" /> < value unit="mEq/L" xsi:type="PQ" value="132" /> <interpretationCode codeSystem="local" code="*" /> <referenceRange> < observationRange> <text>136-144</text> </ observationRange> </referenceRange> </observation> </ component> </organizer> </entry> <entry> <organizer moodCode="EVN" classCode="BATTERY"> <templateId root="10.29.840.1.053736.07.02.22.4.1" /> <id nullFlavor="NA" /> <code codeSystem="local" code="GFR" displayName ="eGFR" /> <statusCode code="completed" /> <component> < observation moodCode="EVN" classCode="OBS"> <templateId root= "10.29.840.1.919644.07.02.22.4.2" /> <id nullFlavor="NA" /> < code codeSystem="local" code="GFR" displayName="eGFR" /> <statusCode code="completed" /> <effectiveTime value="" /> < value unit="mL/min" xsi:type="PQ" value="52" /> <interpretationCode codeSystem="local" code="*" /> <referenceRange> < observationRange> <text>>60</text> </observationRange > </referenceRange> </observation> </component> </ organizer> </entry> <entry> <organizer moodCode="EVN" classCode="BATTERY"> <templateId root="16.840.1.039932.10...4.1" /> <id nullFlavor= "NA" /> <code codeSystem="local" code="PCT" displayName="Procalcitonin" /> <statusCode code="completed" /> <component> <observation moodCode="EVN" classCode="OBS"> <templateId root= "216.840.1.987333.10..22.4.2" /> <id nullFlavor="NA" /> < code codeSystem="local" code="PCT" displayName="Procalcitonin" /> < statusCode code="completed" /> <effectiveTime value="204623794435" /> <value unit="ng/mL" xsi:type="PQ" value="0.17" /> < interpretationCode codeSystem="local" code="*" /> <referenceRange> <observationRange> <text>0.00-0.09</text> </ observationRange> </referenceRange> </observation> </ component> </organizer> </entry> <entry> <organizer moodCode="EVN" classCode="BATTERY"> <templateId root="16.840.1.878341.10...4.1" /> <id nullFlavor="NA" /> <code codeSystem="local" code="HCVRN" displayName="Hepatitis C RNA" /> <statusCode code="completed" /> < component> <observation moodCode="EVN" classCode="OBS"> < templateId root="840.1.005634.10.22.4.2" /> <id nullFlavor="NA " /> <code codeSystem="local" code="HCV10" displayName="HCV Log10" /> <statusCode code="completed" /> <effectiveTime value= "149381366256" /> <value unit="NA" xsi:type="PQ" value="7.2" /> <referenceRange> <observationRange> <text /> </observationRange> </referenceRange> </observation> </ component> <component> <observation moodCode="EVN" classCode="OBS"> <templateId root="840.1.175220.07.02.22.4.2" /> <id nullFlavor="NA" /> <code codeSystem="local" code="HCVR" displayName= "Hepatitis C viral RNA" /> <statusCode code="completed" /> < effectiveTime value="952695860278" /> <value unit="IU/mL" xsi:type="PQ " value="96003410" /> <referenceRange> <observationRange> <text /> </observationRange> </referenceRange> </observation> </component> </organizer> </entry> <entry> < organizer moodCode="EVN" classCode="BATTERY"> <templateId root= "840.1.843133.1022.4.1" /> <id nullFlavor="NA" /> <code codeSystem="local" code="GLUN" displayName="Glucose NPT" /> <statusCode code="completed" /> <component> <observation moodCode="EVN" classCode="OBS"> <templateId root="840.1.305706.1022.4.2" /> <id nullFlavor="NA" /> <code codeSystem="local" code="GLUN" displayName="Glucose NPT" /> <statusCode code="completed" /> <effectiveTime value="600912721949" /> <value unit="mg/dL" xsi:type="PQ " value="46" /> <interpretationCode codeSystem="local" code="*" /> <referenceRange> <observationRange> <text>70-100</ text> </observationRange> </referenceRange> </ observation> </component> </organizer> </entry> <entry> <organizer moodCode="EVN" classCode="BATTERY"> <templateId root= "16.840.1.328033.10...4.1" /> <id nullFlavor="NA" /> <code codeSystem="local" code="GLUN" displayName="Glucose NPT" /> <statusCode code="completed" /> <component> <observation moodCode="EVN" classCode="OBS"> <templateId root="16.840.1.990826.10..22.4.2" /> <id nullFlavor="NA" /> <code codeSystem="local" code="GLUN" displayName="Glucose NPT" /> <statusCode code="completed" /> <effectiveTime value="004956323961" /> <value unit="mg/dL" xsi:type="PQ " value="47" /> <interpretationCode codeSystem="local" code="*" /> <referenceRange> <observationRange> <text>70-100</ text> </observationRange> </referenceRange> </ observation> </component> </organizer> </entry> <entry> <organizer moodCode="EVN" classCode="BATTERY"> <templateId root= "16.840.1.443963.10.20.22.4.1" /> <id nullFlavor="NA" /> <code codeSystem="local" code="GLUN" displayName="Glucose NPT" /> <statusCode code="completed" /> <component> <observation moodCode="EVN" classCode="OBS"> <templateId root="10.29.840.1.005849.1022.4.2" /> <id nullFlavor="NA" /> <code codeSystem="local" code="GLUN" displayName="Glucose NPT" /> <statusCode code="completed" /> <effectiveTime value="245844262578" /> <value unit="mg/dL" xsi:type="PQ " value="122" /> <interpretationCode codeSystem="local" code="*" /> <referenceRange> <observationRange> <text>70-100< /text> </observationRange> </referenceRange> </ observation> </component> </organizer> </entry> <entry> <organizer moodCode="EVN" classCode="BATTERY"> <templateId root= "840.1.197984.10.4.1" /> <id nullFlavor="NA" /> <code codeSystem="local" code="CBCND" displayName="CBC With Platelet No Differential" /> <statusCode code="completed" /> <component> <observation moodCode="EVN" classCode="OBS"> <templateId root= "10.29.840.1.429182.1022.4.2" /> <id nullFlavor="NA" /> < code codeSystem="local" code="HCT" displayName="HCT" /> <statusCode code="completed" /> <effectiveTime value="724808781055" /> < value unit="%" xsi:type="PQ" value="36.3" /> <interpretationCode codeSystem="local" code="*" /> <referenceRange> < observationRange> <text>42.0-52.0</text> </ observationRange> </referenceRange> </observation> </ component> <component> <observation moodCode="EVN" classCode="OBS"> <templateId root="10.29.840.1.533626.10.20.22.4.2" /> <id nullFlavor="NA" /> <code codeSystem="local" code="HGB" displayName="HGB " /> <statusCode code="completed" /> <effectiveTime value= "" /> <value unit="g/dL" xsi:type="PQ" value="11.9" /> <interpretationCode codeSystem="local" code="*" /> < referenceRange> <observationRange> <text>14.0-18.0</text > </observationRange> </referenceRange> </observation > </component> <component> <observation moodCode="EVN" classCode="OBS"> <templateId root="840.1.912827.10.22.4.2" /> <id nullFlavor="NA" /> <code codeSystem="local" code="MCH" displayName="MCH" /> <statusCode code="completed" /> < effectiveTime value="403362141176" /> <value unit="pg" xsi:type="PQ" value="29.4" /> <referenceRange> <observationRange> <text>27.0-32.0</text> </observationRange> </ referenceRange> </observation> </component> <component> <observation moodCode="EVN" classCode="OBS"> <templateId root= "10.29.840.1.107886.10.20.22.4.2" /> <id nullFlavor="NA" /> < code codeSystem="local" code="MCHC" displayName="MCHC" /> <statusCode code="completed" /> <effectiveTime value="" /> < value unit="g/dL" xsi:type="PQ" value="32.8" /> <referenceRange> <observationRange> <text>32.0-36.0</text> </ observationRange> </referenceRange> </observation> </ component> <component> <observation moodCode="EVN" classCode="OBS"> <templateId root="10.29.840.1.344748.10.22.4.2" /> <id nullFlavor="NA" /> <code codeSystem="local" code="MCV" displayName="MCV " /> <statusCode code="completed" /> <effectiveTime value= "" /> <value unit="fL" xsi:type="PQ" value="89.6" /> <referenceRange> <observationRange> <text>82.0-99.0< /text> </observationRange> </referenceRange> </ observation> </component> <component> <observation moodCode= "EVN" classCode="OBS"> <templateId root="10.29.840.1.370077.07.02.22.4.2 " /> <id nullFlavor="NA" /> <code codeSystem="local" code="MPV " displayName="MPV" /> <statusCode code="completed" /> < effectiveTime value="" /> <value unit="fL" xsi:type="PQ" value="11.4" /> <referenceRange> <observationRange> <text>9.4-12.3</text> </observationRange> </ referenceRange> </observation> </component> <component> <observation moodCode="EVN" classCode="OBS"> <templateId root= "10.29.840.1.536864.07.02.22.4.2" /> <id nullFlavor="NA" /> < code codeSystem="local" code="PLT" displayName="Platelet Count" /> < statusCode code="completed" /> <effectiveTime value="[id number]" /> <value unit="K/uL" xsi:type="PQ" value="97" /> < interpretationCode codeSystem="local" code="*" /> <referenceRange> <observationRange> <text>150-400</text> </ observationRange> </referenceRange> </observation> </ component> <component> <observation moodCode="EVN" classCode="OBS"> <templateId root="216.840.1.466888.07.02.224.2" /> <id nullFlavor="NA" /> <code codeSystem="local" code="RBC" displayName="RBC " /> <statusCode code="completed" /> <effectiveTime value= "" /> <value unit="10*6/uL" xsi:type="PQ" value="4.05" /> <interpretationCode codeSystem="local" code="*" /> < referenceRange> <observationRange> <text>4.60-6.20</text > </observationRange> </referenceRange> </observation > </component> <component> <observation moodCode="EVN" classCode="OBS"> <templateId root="216.840.1.180043.10.4.2" /> <id nullFlavor="NA" /> <code codeSystem="local" code="RDW" displayName="RDW" /> <statusCode code="completed" /> < effectiveTime value="" /> <value unit="%" xsi:type="PQ " value="15.7" /> <interpretationCode codeSystem="local" code="*" /> <referenceRange> <observationRange> <text>11.5- 14.5</text> </observationRange> </referenceRange> </ observation> </component> <component> <observation moodCode= "EVN" classCode="OBS"> <templateId root="16.840.1.518917.10.20.22.4.2 " /> <id nullFlavor="NA" /> <code codeSystem="local" code= "WBCIR" displayName="WBC" /> <statusCode code="completed" /> < effectiveTime value="" /> <value unit="K/uL" xsi:type="PQ" value="6.8" /> <referenceRange> <observationRange> <text>4.8-10.8</text> </observationRange> </ referenceRange> </observation> </component> </organizer> </entry > <entry> <organizer moodCode="EVN" classCode="BATTERY"> <templateId root="10.29.840.1.060425.10..22.4.1" /> <id nullFlavor="NA" /> <code codeSystem="local" code="PTPTT" displayName="PTT/PT (INR)" /> <statusCode code="completed" /> <component> <observation moodCode="EVN" classCode="OBS"> <templateId root="10.29.840.1.628578.10..22.4.2" /> <id nullFlavor="NA" /> <code codeSystem="local" code="INR" displayName="INR" /> <statusCode code="completed" /> < effectiveTime value="" /> <value unit="NA" xsi:type="PQ" value="1.2" /> <referenceRange> <observationRange> <text>0.9-1.2</text> </observationRange> </ referenceRange> </observation> </component> </organizer> </entry > <entry> <organizer moodCode="EVN" classCode="BATTERY"> <templateId root="10.29.840.1.653014.07.02.22.4.1" /> <id nullFlavor="NA" /> <code codeSystem="local" code="GLUN" displayName="Glucose NPT" /> <statusCode code="completed" /> <component> <observation moodCode="EVN" classCode="OBS"> <templateId root="840.1.732612.07.02.22.4.2" /> <id nullFlavor="NA" /> <code codeSystem="local" code="GLUN" displayName="Glucose NPT" /> <statusCode code="completed" /> <effectiveTime value="[id number]" /> <value unit="mg/dL" xsi:type="PQ " value="105" /> <interpretationCode codeSystem="local" code="*" /> <referenceRange> <observationRange> <text>70-100< /text> </observationRange> </referenceRange> </ observation> </component> </organizer> </entry> <entry> <organizer moodCode="EVN" classCode="BATTERY"> <templateId root= "10.29.840.1.826000.07.02.22.4.1" /> <id nullFlavor="NA" /> <code codeSystem="local" code="TROP" displayName="Troponin" /> <statusCode code= "completed" /> <component> <observation moodCode="EVN" classCode= "OBS"> <templateId root="10.29.840.1.060271.07.02.22.4.2" /> < id nullFlavor="NA" /> <code codeSystem="local" code="TROP" displayName= "Troponin" /> <statusCode code="completed" /> <effectiveTime value="356071647787" /> <value unit="ng/mL" xsi:type="PQ" value="1.18" /> <interpretationCode codeSystem="local" code="" /> < referenceRange> <observationRange> <text><0.06</text > </observationRange> </referenceRange> </observation > </component> </organizer> </entry> <entry> <organizer moodCode= "EVN" classCode="BATTERY"> <templateId root="16.840.1.420947.10..22.4.1 " /> <id nullFlavor="NA" /> <code codeSystem="local" code="PTT" displayName="PTT" /> <statusCode code="completed" /> <component> <observation moodCode="EVN" classCode="OBS"> <templateId root= "16.840.1.810540.10..22.4.2" /> <id nullFlavor="NA" /> < code codeSystem="local" code="PTT" displayName="PTT" /> <statusCode code="completed" /> <effectiveTime value="[id number]" /> < value unit="seconds" xsi:type="PQ" value="86.5" /> <interpretationCode codeSystem="local" code="*" /> <referenceRange> < observationRange> <text>25.0-35.0</text> </ observationRange> </referenceRange> </observation> </ component> </organizer> </entry> <entry> <organizer moodCode="EVN" classCode="BATTERY"> <templateId root="16.840.1.603732.10..22.4.1" /> <id nullFlavor="NA" /> <code codeSystem="local" code="GLUN" displayName="Glucose NPT" /> <statusCode code="completed" /> < component> <observation moodCode="EVN" classCode="OBS"> < templateId root="16.840.1.524290.07.02.22.4.2" /> <id nullFlavor="NA " /> <code codeSystem="local" code="GLUN" displayName="Glucose NPT" / > <statusCode code="completed" /> <effectiveTime value= "324459596045" /> <value unit="mg/dL" xsi:type="PQ" value="102" /> <interpretationCode codeSystem="local" code="*" /> < referenceRange> <observationRange> <text>70-100</text> </observationRange> </referenceRange> </observation> </component> </organizer> </entry> <entry> <organizer moodCode= "EVN" classCode="BATTERY"> <templateId root="840.1.429337.07.02.22.4.1 " /> <id nullFlavor="NA" /> <code codeSystem="local" code="TROP" displayName="Troponin" /> <statusCode code="completed" /> <component> <observation moodCode="EVN" classCode="OBS"> <templateId root= "10.29.840.1.648398.07.02.22.4.2" /> <id nullFlavor="NA" /> < code codeSystem="local" code="TROP" displayName="Troponin" /> < statusCode code="completed" /> <effectiveTime value="[id number]" /> <value unit="ng/mL" xsi:type="PQ" value="1.04" /> < interpretationCode codeSystem="local" code="" /> <referenceRange> <observationRange> <text><0.06</text> </ observationRange> </referenceRange> </observation> </ component> </organizer> </entry> <entry> <organizer moodCode="EVN" classCode="BATTERY"> <templateId root="16.840.1.055464.10..4.1" /> <id nullFlavor="NA" /> <code codeSystem="local" code="LACID" displayName="Lactic Acid Venous" /> <statusCode code="completed" /> < component> <observation moodCode="EVN" classCode="OBS"> < templateId root="840.1.582647.07.02.22.4.2" /> <id nullFlavor="NA " /> <code codeSystem="local" code="LACID" displayName="Lactic Acid Venous" /> <statusCode code="completed" /> <effectiveTime value="073673282953" /> <value unit="mEq/L" xsi:type="PQ" value="1.5" / > <referenceRange> <observationRange> <text>0.5 -2.0</text> </observationRange> </referenceRange> </ observation> </component> </organizer> </entry> <entry> <organizer moodCode="EVN" classCode="BATTERY"> <templateId root= "10.29.840.1.241767.07.02.22.4.1" /> <id nullFlavor="NA" /> <code codeSystem="local" code="HEP4" displayName="Hepatitis Panel" /> < statusCode code="completed" /> <component> <observation moodCode= "EVN" classCode="OBS"> <templateId root="16.840.1.944027.10..4.2 " /> <id nullFlavor="NA" /> <code codeSystem="local" code= "HAABM" displayName="Hepatitis A Antibody IGM" /> <statusCode code= "completed" /> <effectiveTime value="" /> <value unit="" xsi:type="PQ" value="Negative" /> <referenceRange> < observationRange> <text /> </observationRange> </referenceRange> </observation> </component> <component> <observation moodCode="EVN" classCode="OBS"> <templateId root= "216.840.1.064252.10..4.2" /> <id nullFlavor="NA" /> < code codeSystem="local" code="HBSAG" displayName="Hepatitis B Surface Antigen" / > <statusCode code="completed" /> <effectiveTime value= "" /> <value unit="" xsi:type="PQ" value="Negative" /> <referenceRange> <observationRange> <text /> </observationRange> </referenceRange> </observation> </component> <component> <observation moodCode="EVN" classCode= "OBS"> <templateId root="16.840.1.844805.07.02.22.4.2" /> < id nullFlavor="NA" /> <code codeSystem="local" code="HBCM" displayName= "Hepatitis Core Ab IGM" /> <statusCode code="completed" /> < effectiveTime value="" /> <value unit="" xsi:type="PQ" value="Negative" /> <referenceRange> <observationRange> <text /> </observationRange> </referenceRange> </observation> </component> </organizer> </entry> <entry> < organizer moodCode="EVN" classCode="BATTERY"> <templateId root= "216.840.1.326597.07.02.22.4.1" /> <id nullFlavor="NA" /> <code codeSystem="local" code="CBCWD" displayName="CBC With Platelet and Differential " /> <statusCode code="completed" /> <component> <observation moodCode="EVN" classCode="OBS"> <templateId root= "10.29.840.1.195762.10.20.22.4.2" /> <id nullFlavor="NA" /> < code codeSystem="local" code="ABASR" displayName="Absolute Basophils" /> <statusCode code="completed" /> <effectiveTime value="" /> <value unit="10*3/uL" xsi:type="PQ" value="0.01" /> < referenceRange> <observationRange> <text>0.00-0.20</text > </observationRange> </referenceRange> </observation > </component> <component> <observation moodCode="EVN" classCode="OBS"> <templateId root="840.1.637213.1022.4.2" /> <id nullFlavor="NA" /> <code codeSystem="local" code="AEOSR" displayName="Absolute Eosinophils" /> <statusCode code="completed" /> <effectiveTime value="" /> <value unit="10*3/uL" xsi:type="PQ" value="0.00" /> <referenceRange> < observationRange> <text>0.00-0.50</text> </ observationRange> </referenceRange> </observation> </ component> <component> <observation moodCode="EVN" classCode="OBS"> <templateId root="840.1.306682..20.22.4.2" /> <id nullFlavor="NA" /> <code codeSystem="local" code="ALYMR" displayName= "Absolute Lymphocytes" /> <statusCode code="completed" /> < effectiveTime value="" /> <value unit="10*3/uL" xsi:type= "PQ" value="0.76" /> <interpretationCode codeSystem="local" code="*" / > <referenceRange> <observationRange> <text> 0.80-3.30</text> </observationRange> </referenceRange> </observation> </component> <component> <observation moodCode="EVN" classCode="OBS"> <templateId root= "216.840.1.642075.10..22.4.2" /> <id nullFlavor="NA" /> < code codeSystem="local" code="AMONR" displayName="Absolute Monocytes" /> <statusCode code="completed" /> <effectiveTime value="" /> <value unit="10*3/uL" xsi:type="PQ" value="0.18" /> < interpretationCode codeSystem="local" code="*" /> <referenceRange> <observationRange> <text>0.30-1.00</text> </ observationRange> </referenceRange> </observation> </ component> <component> <observation moodCode="EVN" classCode="OBS"> <templateId root="16.840.1.830294.10.22.4.2" /> <id nullFlavor="NA" /> <code codeSystem="local" code="ASEGR" displayName= "Absolute Neutrophils" /> <statusCode code="completed" /> < effectiveTime value="" /> <value unit="10*3/uL" xsi:type= "PQ" value="2.66" /> <referenceRange> <observationRange> <text>1.90-7.00</text> </observationRange> </ referenceRange> </observation> </component> <component> <observation moodCode="EVN" classCode="OBS"> <templateId root= "216.840.1.008730.10.2022.4.2" /> <id nullFlavor="NA" /> < code codeSystem="local" code="BASOR" displayName="Basophils" /> < statusCode code="completed" /> <effectiveTime value="" /> <value unit="%" xsi:type="PQ" value="0" /> <referenceRange > <observationRange> <text>0-2</text> </ observationRange> </referenceRange> </observation> </ component> <component> <observation moodCode="EVN" classCode="OBS"> <templateId root="16.840.1.072722.10.22.4.2" /> <id nullFlavor="NA" /> <code codeSystem="local" code="EOSR" displayName= "Eosinophils" /> <statusCode code="completed" /> < effectiveTime value="" /> <value unit="%" xsi:type="PQ " value="0" /> <referenceRange> <observationRange> <text>0-4</text> </observationRange> </referenceRange> </observation> </component> <component> <observation moodCode="EVN" classCode="OBS"> <templateId root= "16.840.1.091152.10.2022.4.2" /> <id nullFlavor="NA" /> < code codeSystem="local" code="HCT" displayName="HCT" /> <statusCode code="completed" /> <effectiveTime value="" /> < value unit="%" xsi:type="PQ" value="32.7" /> <interpretationCode codeSystem="local" code="*" /> <referenceRange> < observationRange> <text>42.0-52.0</text> </ observationRange> </referenceRange> </observation> </ component> <component> <observation moodCode="EVN" classCode="OBS"> <templateId root="216.840.1.447564.10...4.2" /> <id nullFlavor="NA" /> <code codeSystem="local" code="HGB" displayName="HGB " /> <statusCode code="completed" /> <effectiveTime value= "" /> <value unit="g/dL" xsi:type="PQ" value="10.7" /> <interpretationCode codeSystem="local" code="*" /> < referenceRange> <observationRange> <text>14.0-18.0</text > </observationRange> </referenceRange> </observation > </component> <component> <observation moodCode="EVN" classCode="OBS"> <templateId root="16.840.1.637507...4.2" /> <id nullFlavor="NA" /> <code codeSystem="local" code="IMGA" displayName="Immature Granulocytes" /> <statusCode code="completed" /> <effectiveTime value="" /> <value unit="%" xsi:type="PQ" value="1.4" /> <interpretationCode codeSystem="local" code="*" /> <referenceRange> <observationRange> <text>0.0-1.0</text> </observationRange> </referenceRange > </observation> </component> <component> <observation moodCode="EVN" classCode="OBS"> <templateId root= "216.840.1.495912.10..4.2" /> <id nullFlavor="NA" /> < code codeSystem="local" code="LYMPR" displayName="Lymphocytes" /> < statusCode code="completed" /> <effectiveTime value="" /> <value unit="%" xsi:type="PQ" value="21" /> < referenceRange> <observationRange> <text>20-46</text> </observationRange> </referenceRange> </observation> </component> <component> <observation moodCode="EVN" classCode= "OBS"> <templateId root="2.16.840.1.131913.10..22.4.2" /> < id nullFlavor="NA" /> <code codeSystem="local" code="MCH" displayName= "MCH" /> <statusCode code="completed" /> <effectiveTime value= "" /> <value unit="pg" xsi:type="PQ" value="28.8" /> <referenceRange> <observationRange> <text>27.0-32.0< /text> </observationRange> </referenceRange> </ observation> </component> <component> <observation moodCode= "EVN" classCode="OBS"> <templateId root="216.840.1.017416.10..22.4.2 " /> <id nullFlavor="NA" /> <code codeSystem="local" code= "MCHC" displayName="MCHC" /> <statusCode code="completed" /> < effectiveTime value="" /> <value unit="g/dL" xsi:type="PQ" value="32.7" /> <referenceRange> <observationRange> <text>32.0-36.0</text> </observationRange> </ referenceRange> </observation> </component> <component> <observation moodCode="EVN" classCode="OBS"> <templateId root= "16.840.1.845679.10..22.4.2" /> <id nullFlavor="NA" /> < code codeSystem="local" code="MCV" displayName="MCV" /> <statusCode code="completed" /> <effectiveTime value="" /> < value unit="fL" xsi:type="PQ" value="88.1" /> <referenceRange> <observationRange> <text>82.0-99.0</text> </ observationRange> </referenceRange> </observation> </ component> <component> <observation moodCode="EVN" classCode="OBS"> <templateId root="10.29.840.1.380720..22.4.2" /> <id nullFlavor="NA" /> <code codeSystem="local" code="MONOR" displayName= "Monocytes" /> <statusCode code="completed" /> <effectiveTime value="" /> <value unit="%" xsi:type="PQ" value="5" /> <referenceRange> <observationRange> <text>4-11 </text> </observationRange> </referenceRange> </ observation> </component> <component> <observation moodCode= "EVN" classCode="OBS"> <templateId root="10.29.840.1.604093.10.22.4.2 " /> <id nullFlavor="NA" /> <code codeSystem="local" code="MPV " displayName="MPV" /> <statusCode code="completed" /> < effectiveTime value="" /> <value unit="fL" xsi:type="PQ" value="11.4" /> <referenceRange> <observationRange> <text>9.4-12.3</text> </observationRange> </ referenceRange> </observation> </component> <component> <observation moodCode="EVN" classCode="OBS"> <templateId root= "216.840.1.736027.10.4.2" /> <id nullFlavor="NA" /> < code codeSystem="local" code="SEGR" displayName="Neutrophils" /> < statusCode code="completed" /> <effectiveTime value="" /> <value unit="%" xsi:type="PQ" value="73" /> < referenceRange> <observationRange> <text>51-75</text> </observationRange> </referenceRange> </observation> </component> <component> <observation moodCode="EVN" classCode= "OBS"> <templateId root="10.29.840.1.832024.07.02.22.4.2" /> < id nullFlavor="NA" /> <code codeSystem="local" code="NRBCA" displayName ="Nucleated RBC Automated" /> <statusCode code="completed" /> <effectiveTime value="" /> <value unit="/100WBC" xsi:type= "PQ" value="1.1" /> <referenceRange> <observationRange> <text /> </observationRange> </referenceRange> </observation> </component> <component> <observation moodCode="EVN" classCode="OBS"> <templateId root= "10.29.840.1.244256.10.22.4.2" /> <id nullFlavor="NA" /> < code codeSystem="local" code="PLT" displayName="Platelet Count" /> < statusCode code="completed" /> <effectiveTime value="" /> <value unit="K/uL" xsi:type="PQ" value="107" /> < interpretationCode codeSystem="local" code="*" /> <referenceRange> <observationRange> <text>150-400</text> </ observationRange> </referenceRange> </observation> </ component> <component> <observation moodCode="EVN" classCode="OBS"> <templateId root="216.840.1.308074...22.4.2" /> <id nullFlavor="NA" /> <code codeSystem="local" code="RBC" displayName="RBC " /> <statusCode code="completed" /> <effectiveTime value= "" /> <value unit="10*6/uL" xsi:type="PQ" value="3.71" /> <interpretationCode codeSystem="local" code="*" /> < referenceRange> <observationRange> <text>4.60-6.20</text > </observationRange> </referenceRange> </observation > </component> <component> <observation moodCode="EVN" classCode="OBS"> <templateId root="10.29.840.1.152477.22.4.2" /> <id nullFlavor="NA" /> <code codeSystem="local" code="RDW" displayName="RDW" /> <statusCode code="completed" /> < effectiveTime value="" /> <value unit="%" xsi:type="PQ " value="15.7" /> <interpretationCode codeSystem="local" code="*" /> <referenceRange> <observationRange> <text>11.5- 14.5</text> </observationRange> </referenceRange> </ observation> </component> <component> <observation moodCode= "EVN" classCode="OBS"> <templateId root="10.29.840.1.614325..4.2 " /> <id nullFlavor="NA" /> <code codeSystem="local" code= "WBCIR" displayName="WBC" /> <statusCode code="completed" /> < effectiveTime value="397897947982" /> <value unit="K/uL" xsi:type="PQ" value="3.7" /> <interpretationCode codeSystem="local" code="*" /> <referenceRange> <observationRange> <text>4.8-10.8< /text> </observationRange> </referenceRange> </ observation> </component> </organizer> </entry> <entry> <organizer moodCode="EVN" classCode="BATTERY"> <templateId root= "216.840.1.011789...4.1" /> <id nullFlavor="NA" /> <code codeSystem="local" code="MG" displayName="Magnesium" /> <statusCode code= "completed" /> <component> <observation moodCode="EVN" classCode= "OBS"> <templateId root="216.840.1.578880...4.2" /> < id nullFlavor="NA" /> <code codeSystem="local" code="MG" displayName= "Magnesium" /> <statusCode code="completed" /> <effectiveTime value="857833651197" /> <value unit="mg/dL" xsi:type="PQ" value="1.9" / > <referenceRange> <observationRange> <text>1.8 -2.5</text> </observationRange> </referenceRange> </ observation> </component> </organizer> </entry> <entry> <organizer moodCode="EVN" classCode="BATTERY"> <templateId root= "216.840.1.146529.07.02.22.4.1" /> <id nullFlavor="NA" /> <code codeSystem="local" code="CMP" displayName="Comprehensive Metabolic Panel (CMP)" /> <statusCode code="completed" /> <component> <observation moodCode="EVN" classCode="OBS"> <templateId root= "10.29.840.1.081604.07.02.22.4.2" /> <id nullFlavor="NA" /> < code codeSystem="local" code="ALB" displayName="Albumin" /> < statusCode code="completed" /> <effectiveTime value="996588166711" /> <value unit="g/dL" xsi:type="PQ" value="2.8" /> < interpretationCode codeSystem="local" code="*" /> <referenceRange> <observationRange> <text>3.5-4.8</text> </ observationRange> </referenceRange> </observation> </ component> <component> <observation moodCode="EVN" classCode="OBS"> <templateId root="840.1.288066.07.02.22.4.2" /> <id nullFlavor="NA" /> <code codeSystem="local" code="ALP" displayName= "Alkaline Phosphatase" /> <statusCode code="completed" /> < effectiveTime value="866610093634" /> <value unit="U/L" xsi:type="PQ" value="96" /> <referenceRange> <observationRange> <text>26-104</text> </observationRange> </referenceRange > </observation> </component> <component> <observation moodCode="EVN" classCode="OBS"> <templateId root= "10.29.840.1.317894.07.02.22.4.2" /> <id nullFlavor="NA" /> < code codeSystem="local" code="ALT" displayName="ALT (SGPT)" /> < statusCode code="completed" /> <effectiveTime value="164512445764" /> <value unit="U/L" xsi:type="PQ" value="1858" /> < interpretationCode codeSystem="local" code="*" /> <referenceRange> <observationRange> <text>17-63</text> </ observationRange> </referenceRange> </observation> </ component> <component> <observation moodCode="EVN" classCode="OBS"> <templateId root="2.16.840.1.126656.10...4.2" /> <id nullFlavor="NA" /> <code codeSystem="local" code="AGAP" displayName= "Anion Gap" /> <statusCode code="completed" /> <effectiveTime value="" /> <value unit="mEq/L" xsi:type="PQ" value="7" /> <referenceRange> <observationRange> <text>3-20 </text> </observationRange> </referenceRange> </ observation> </component> <component> <observation moodCode= "EVN" classCode="OBS"> <templateId root="216.840.1.277873.10..22.4.2 " /> <id nullFlavor="NA" /> <code codeSystem="local" code= "BILIT" displayName="Bilirubin Total" /> <statusCode code="completed" / > <effectiveTime value="209831149597" /> <value unit="mg/dL" xsi:type="PQ" value="1.3" /> <interpretationCode codeSystem="local" code="*" /> <referenceRange> <observationRange> <text>0.2-1.2</text> </observationRange> </referenceRange > </observation> </component> <component> <observation moodCode="EVN" classCode="OBS"> <templateId root= "16.840.1.585722.10..4.2" /> <id nullFlavor="NA" /> < code codeSystem="local" code="BUN" displayName="BUN" /> <statusCode code="completed" /> <effectiveTime value="" /> < value unit="mg/dL" xsi:type="PQ" value="29" /> <interpretationCode codeSystem="local" code="*" /> <referenceRange> < observationRange> <text>4-20</text> </observationRange> </referenceRange> </observation> </component> < component> <observation moodCode="EVN" classCode="OBS"> < templateId root="10.29.840.1.681631.07.02.22.4.2" /> <id nullFlavor="NA " /> <code codeSystem="local" code="CA" displayName="Calcium" /> <statusCode code="completed" /> <effectiveTime value=" " /> <value unit="mg/dL" xsi:type="PQ" value="7.7" /> < interpretationCode codeSystem="local" code="*" /> <referenceRange> <observationRange> <text>8.6-10.0</text> </ observationRange> </referenceRange> </observation> </ component> <component> <observation moodCode="EVN" classCode="OBS"> <templateId root="16.840.1.377632.07.02.22.4.2" /> <id nullFlavor="NA" /> <code codeSystem="local" code="CL" displayName= "Chloride" /> <statusCode code="completed" /> <effectiveTime value="" /> <value unit="mEq/L" xsi:type="PQ" value="100" / > <referenceRange> <observationRange> <text>99- 109</text> </observationRange> </referenceRange> </ observation> </component> <component> <observation moodCode= "EVN" classCode="OBS"> <templateId root="16.840.1.313651.10...4.2 " /> <id nullFlavor="NA" /> <code codeSystem="local" code="CO2 " displayName="CO2" /> <statusCode code="completed" /> < effectiveTime value="287069021748" /> <value unit="mEq/L" xsi:type="PQ " value="20" /> <interpretationCode codeSystem="local" code="*" /> <referenceRange> <observationRange> <text>22-32</ text> </observationRange> </referenceRange> </ observation> </component> <component> <observation moodCode= "EVN" classCode="OBS"> <templateId root="10.29.840.1.953340.07.02.22.4.2 " /> <id nullFlavor="NA" /> <code codeSystem="local" code= "CREAT" displayName="Creatinine" /> <statusCode code="completed" /> <effectiveTime value="437901856683" /> <value unit="mg/dL" xsi: type="PQ" value="1.29" /> <interpretationCode codeSystem="local" code= "*" /> <referenceRange> <observationRange> < text>0.64-1.27</text> </observationRange> </referenceRange> </observation> </component> <component> <observation moodCode="EVN" classCode="OBS"> <templateId root= "10.29.840.1.625964....4.2" /> <id nullFlavor="NA" /> < code codeSystem="local" code="GLOB" displayName="Globulin" /> < statusCode code="completed" /> <effectiveTime value="[id number]" /> <value unit="g/dL" xsi:type="PQ" value="2.8" /> < referenceRange> <observationRange> <text>1.9-4.3</text> </observationRange> </referenceRange> </observation > </component> <component> <observation moodCode="EVN" classCode="OBS"> <templateId root="216.840.1.633145.10..4.2" /> <id nullFlavor="NA" /> <code codeSystem="local" code="GLU" displayName="Glucose" /> <statusCode code="completed" /> < effectiveTime value="242641806272" /> <value unit="mg/dL" xsi:type="PQ " value="345" /> <interpretationCode codeSystem="local" code="*" /> <referenceRange> <observationRange> <text>70-100< /text> </observationRange> </referenceRange> </ observation> </component> <component> <observation moodCode= "EVN" classCode="OBS"> <templateId root="16.840.1.343073.07.02.22.4.2 " /> <id nullFlavor="NA" /> <code codeSystem="local" code="K" displayName="Potassium" /> <statusCode code="completed" /> < effectiveTime value="[id number]" /> <value unit="mEq/L" xsi:type="PQ " value="4.2" /> <referenceRange> <observationRange> <text>3.6-5.1</text> </observationRange> </ referenceRange> </observation> </component> <component> <observation moodCode="EVN" classCode="OBS"> <templateId root= "216.840.1.973717.10..4.2" /> <id nullFlavor="NA" /> < code codeSystem="local" code="TP" displayName="Protein" /> <statusCode code="completed" /> <effectiveTime value="" /> < value unit="g/dL" xsi:type="PQ" value="5.6" /> <interpretationCode codeSystem="local" code="*" /> <referenceRange> < observationRange> <text>6.1-7.9</text> </ observationRange> </referenceRange> </observation> </ component> <component> <observation moodCode="EVN" classCode="OBS"> <templateId root="216.840.1.824078.07.02.22.4.2" /> <id nullFlavor="NA" /> <code codeSystem="local" code="NA" displayName= "Sodium" /> <statusCode code="completed" /> <effectiveTime value="[id number]" /> <value unit="mEq/L" xsi:type="PQ" value="127" / > <interpretationCode codeSystem="local" code="*" /> < referenceRange> <observationRange> <text>136-144</text> </observationRange> </referenceRange> </observation > </component> </organizer> </entry> <entry> <organizer moodCode= "EVN" classCode="BATTERY"> <templateId root="216.840.1.521956.10..4.1 " /> <id nullFlavor="NA" /> <code codeSystem="local" code="GFR" displayName="eGFR" /> <statusCode code="completed" /> <component> <observation moodCode="EVN" classCode="OBS"> <templateId root= "2.16.840.1.167725.10..22.4.2" /> <id nullFlavor="NA" /> < code codeSystem="local" code="GFR" displayName="eGFR" /> <statusCode code="completed" /> <effectiveTime value="665937286135" /> < value unit="mL/min" xsi:type="PQ" value="59" /> <interpretationCode codeSystem="local" code="*" /> <referenceRange> < observationRange> <text>>60</text> </observationRange > </referenceRange> </observation> </component> </ organizer> </entry> <entry> <organizer moodCode="EVN" classCode="BATTERY"> <templateId root="2.16.840.1.160560.10..22.4.1" /> <id nullFlavor= "NA" /> <code codeSystem="local" code="PCT" displayName="Procalcitonin" /> <statusCode code="completed" /> <component> <observation moodCode="EVN" classCode="OBS"> <templateId root= "2.16.840.1.582731.10.20.22.4.2" /> <id nullFlavor="NA" /> < code codeSystem="local" code="PCT" displayName="Procalcitonin" /> < statusCode code="completed" /> <effectiveTime value="793571430956" /> <value unit="ng/mL" xsi:type="PQ" value="0.21" /> < interpretationCode codeSystem="local" code="*" /> <referenceRange> <observationRange> <text>0.00-0.09</text> </ observationRange> </referenceRange> </observation> </ component> </organizer> </entry> <entry> <organizer moodCode="EVN" classCode="BATTERY"> <templateId root="10.29.840.1.891520...4.1" /> <id nullFlavor="NA" /> <code codeSystem="local" code="ACETM" displayName="Acetaminophen" /> <statusCode code="completed" /> < component> <observation moodCode="EVN" classCode="OBS"> < templateId root="840.1.773809.07.02.22.4.2" /> <id nullFlavor="NA " /> <code codeSystem="local" code="ACETM" displayName="Acetaminophen" /> <statusCode code="completed" /> <effectiveTime value= "967119032784" /> <value unit="mcg/mL" xsi:type="PQ" value="<10" /> <referenceRange> <observationRange> <text>10- 30</text> </observationRange> </referenceRange> </ observation> </component> </organizer> </entry> <entry> <organizer moodCode="EVN" classCode="BATTERY"> <templateId root= "840.1.252768.07.02.22.4.1" /> <id nullFlavor="NA" /> <code codeSystem="local" code="GLUN" displayName="Glucose NPT" /> <statusCode code="completed" /> <component> <observation moodCode="EVN" classCode="OBS"> <templateId root="10.29.840.1.654181.07.02.22.4.2" /> <id nullFlavor="NA" /> <code codeSystem="local" code="GLUN" displayName="Glucose NPT" /> <statusCode code="completed" /> <effectiveTime value="689612344215" /> <value unit="mg/dL" xsi:type="PQ " value="105" /> <interpretationCode codeSystem="local" code="*" /> <referenceRange> <observationRange> <text>70-100< /text> </observationRange> </referenceRange> </ observation> </component> </organizer> </entry> <entry> <organizer moodCode="EVN" classCode="BATTERY"> <templateId root= "216.840.1.560500.10..22.4.1" /> <id nullFlavor="NA" /> <code codeSystem="local" code="PT" displayName="Protime (INR)" /> <statusCode code="completed" /> <component> <observation moodCode="EVN" classCode="OBS"> <templateId root="216.840.1.573129.10...4.2" /> <id nullFlavor="NA" /> <code codeSystem="local" code="INR" displayName="INR" /> <statusCode code="completed" /> < effectiveTime value="181628578111" /> <value unit="NA" xsi:type="PQ" value="1.3" /> <interpretationCode codeSystem="local" code="*" /> <referenceRange> <observationRange> <text>0.9-1.2</ text> </observationRange> </referenceRange> </ observation> </component> </organizer> </entry> <entry> <organizer moodCode="EVN" classCode="BATTERY"> <templateId root= "216.840.1.363780.10...4.1" /> <id nullFlavor="NA" /> <code codeSystem="local" code="PTT" displayName="PTT" /> <statusCode code= "completed" /> <component> <observation moodCode="EVN" classCode= "OBS"> <templateId root="216.840.1.544590.10..22.4.2" /> < id nullFlavor="NA" /> <code codeSystem="local" code="PTT" displayName= "PTT" /> <statusCode code="completed" /> <effectiveTime value= "146126487948" /> <value unit="seconds" xsi:type="PQ" value="98.6" /> <interpretationCode codeSystem="local" code="*" /> < referenceRange> <observationRange> <text>25.0-35.0</text > </observationRange> </referenceRange> </observation > </component> </organizer> </entry> <entry> <organizer moodCode= "EVN" classCode="BATTERY"> <templateId root="216.840.1.549884.10..22.4.1 " /> <id nullFlavor="NA" /> <code codeSystem="local" code="TROP" displayName="Troponin" /> <statusCode code="completed" /> <component> <observation moodCode="EVN" classCode="OBS"> <templateId root= "2.16.840.1.701794.10..22.4.2" /> <id nullFlavor="NA" /> < code codeSystem="local" code="TROP" displayName="Troponin" /> < statusCode code="completed" /> <effectiveTime value="149284416362" /> <value unit="ng/mL" xsi:type="PQ" value="1.49" /> < interpretationCode codeSystem="local" code="" /> <referenceRange> <observationRange> <text><0.06</text> </ observationRange> </referenceRange> </observation> </ component> </organizer> </entry> <entry> <organizer moodCode="EVN" classCode="BATTERY"> <templateId root="840.1.716571.10.4.1" /> <id nullFlavor="NA" /> <code codeSystem="local" code="GLUN" displayName="Glucose NPT" /> <statusCode code="completed" /> < component> <observation moodCode="EVN" classCode="OBS"> < templateId root="840.1.992804.07.02.22.4.2" /> <id nullFlavor="NA " /> <code codeSystem="local" code="GLUN" displayName="Glucose NPT" / > <statusCode code="completed" /> <effectiveTime value= "700368612008" /> <value unit="mg/dL" xsi:type="PQ" value="289" /> <interpretationCode codeSystem="local" code="*" /> < referenceRange> <observationRange> <text>70-100</text> </observationRange> </referenceRange> </observation> </component> </organizer> </entry> <entry> <organizer moodCode= "EVN" classCode="BATTERY"> <templateId root="840.1.513176.07.02.22.4.1 " /> <id nullFlavor="NA" /> <code codeSystem="local" code="UA" displayName="Urinalysis with reflex microscopic" /> <statusCode code= "completed" /> <component> <observation moodCode="EVN" classCode= "OBS"> <templateId root="840.1.503114.07.02.22.4.2" /> < id nullFlavor="NA" /> <code codeSystem="local" code="UAPP" displayName= "Appearance" /> <statusCode code="completed" /> < effectiveTime value="" /> <value unit="NA" xsi:type="PQ" value="Sl Cloudy" /> <referenceRange> <observationRange> <text /> </observationRange> </referenceRange> </observation> </component> <component> <observation moodCode="EVN" classCode="OBS"> <templateId root= "10.29.840.1.889603.10.4.2" /> <id nullFlavor="NA" /> < code codeSystem="local" code="UBIL" displayName="Bilirubin" /> < statusCode code="completed" /> <effectiveTime value="" /> <value unit="NA" xsi:type="PQ" value="Negative" /> < referenceRange> <observationRange> <text>Negative</text > </observationRange> </referenceRange> </observation > </component> <component> <observation moodCode="EVN" classCode="OBS"> <templateId root="16.840.1.179769.10..4.2" /> <id nullFlavor="NA" /> <code codeSystem="local" code="UBLD" displayName="Blood" /> <statusCode code="completed" /> < effectiveTime value="" /> <value unit="NA" xsi:type="PQ" value="Pos 1+" /> <interpretationCode codeSystem="local" code="*" /> <referenceRange> <observationRange> <text> Negative</text> </observationRange> </referenceRange> </observation> </component> <component> <observation moodCode ="EVN" classCode="OBS"> <templateId root= "10.29.840.1.566712.10..4.2" /> <id nullFlavor="NA" /> < code codeSystem="local" code="UCOLR" displayName="Color" /> < statusCode code="completed" /> <effectiveTime value="" /> <value unit="NA" xsi:type="PQ" value="Yellow" /> < referenceRange> <observationRange> <text /> < /observationRange> </referenceRange> </observation> </ component> <component> <observation moodCode="EVN" classCode="OBS"> <templateId root="10.29.840.1.594601...4.2" /> <id nullFlavor="NA" /> <code codeSystem="local" code="UGLU" displayName= "Glucose, Urine" /> <statusCode code="completed" /> < effectiveTime value="" /> <value unit="" xsi:type="PQ" value="Negative" /> <referenceRange> <observationRange> <text>Negative</text> </observationRange> </ referenceRange> </observation> </component> <component> <observation moodCode="EVN" classCode="OBS"> <templateId root= "10.29.840.1.540487.07.02.22.4.2" /> <id nullFlavor="NA" /> < code codeSystem="local" code="UKET" displayName="Ketones" /> < statusCode code="completed" /> <effectiveTime value="" /> <value unit="" xsi:type="PQ" value="Negative" /> < referenceRange> <observationRange> <text>Negative</text > </observationRange> </referenceRange> </observation > </component> <component> <observation moodCode="EVN" classCode="OBS"> <templateId root="10.29.840.1.067767.07.02.22.4.2" /> <id nullFlavor="NA" /> <code codeSystem="local" code="ULEU" displayName="Leukocyte Esterase" /> <statusCode code="completed" /> <effectiveTime value="" /> <value unit="NA" xsi:type ="PQ" value="Negative" /> <referenceRange> <observationRange > <text>Negative</text> </observationRange> </ referenceRange> </observation> </component> <component> <observation moodCode="EVN" classCode="OBS"> <templateId root= "216.840.1.837890.10..22.4.2" /> <id nullFlavor="NA" /> < code codeSystem="local" code="UNIT" displayName="Nitrites" /> < statusCode code="completed" /> <effectiveTime value="" /> <value unit="NA" xsi:type="PQ" value="Negative" /> < referenceRange> <observationRange> <text>Negative</text > </observationRange> </referenceRange> </observation > </component> <component> <observation moodCode="EVN" classCode="OBS"> <templateId root="216.840.1.584455.10..22.4.2" /> <id nullFlavor="NA" /> <code codeSystem="local" code="UPH" displayName="pH" /> <statusCode code="completed" /> < effectiveTime value="" /> <value unit="NA" xsi:type="PQ" value="5.0" /> <referenceRange> <observationRange> <text>5.0-8.0</text> </observationRange> </ referenceRange> </observation> </component> <component> <observation moodCode="EVN" classCode="OBS"> <templateId root= "16.840.1.624201.07.02.22.4.2" /> <id nullFlavor="NA" /> < code codeSystem="local" code="UPRO" displayName="Protein" /> < statusCode code="completed" /> <effectiveTime value="" /> <value unit="NA" xsi:type="PQ" value="Pos 1+" /> < interpretationCode codeSystem="local" code="*" /> <referenceRange> <observationRange> <text>Negative</text> </ observationRange> </referenceRange> </observation> </ component> <component> <observation moodCode="EVN" classCode="OBS"> <templateId root="10.29.840.1.370772.07.02.22.4.2" /> <id nullFlavor="NA" /> <code codeSystem="local" code="USPG" displayName= "Specific [place]" /> <statusCode code="completed" /> < effectiveTime value="" /> <value unit="NA" xsi:type="PQ" value="1.010" /> <referenceRange> <observationRange> <text>1.003-1.030</text> </observationRange> </ referenceRange> </observation> </component> <component> <observation moodCode="EVN" classCode="OBS"> <templateId root= "10.29.840.1.018043.07.02.22.4.2" /> <id nullFlavor="NA" /> < code codeSystem="local" code="UTYP" displayName="UA Collection type" /> <statusCode code="completed" /> <effectiveTime value="" / > <value unit="NA" xsi:type="PQ" value="Clean Catch" /> < referenceRange> <observationRange> <text /> < /observationRange> </referenceRange> </observation> </ component> <component> <observation moodCode="EVN" classCode="OBS"> <templateId root="16.840.1.497668.07.02.22.4.2" /> <id nullFlavor="NA" /> <code codeSystem="local" code="UURO" displayName= "Urobilinogen" /> <statusCode code="completed" /> < effectiveTime value="" /> <value unit="mg/dL" xsi:type="PQ " value="Negative" /> <referenceRange> <observationRange> <text><1.0</text> </observationRange> </ referenceRange> </observation> </component> </organizer> </entry > <entry> <organizer moodCode="EVN" classCode="BATTERY"> <templateId root="216.840.1.988178.07.02.22.4.1" /> <id nullFlavor="NA" /> <code codeSystem="local" code="UMIC" displayName="Urine Microscopic" /> < statusCode code="completed" /> <component> <observation moodCode= "EVN" classCode="OBS"> <templateId root="216.840.1.845223.10..4.2 " /> <id nullFlavor="NA" /> <code codeSystem="local" code= "UBAC" displayName="Bacteria" /> <statusCode code="completed" /> <effectiveTime value="" /> <value unit="NA" xsi:type= "PQ" value="Rare" /> <referenceRange> <observationRange> <text /> </observationRange> </referenceRange> </observation> </component> <component> <observation moodCode="EVN" classCode="OBS"> <templateId root= "216.840.1.591277.07.02.22.4.2" /> <id nullFlavor="NA" /> < code codeSystem="local" code="UEPI" displayName="Epithelial Cells" /> < statusCode code="completed" /> <effectiveTime value="" /> <value unit="/HPF" xsi:type="PQ" value="0" /> <referenceRange > <observationRange> <text /> </ observationRange> </referenceRange> </observation> </ component> <component> <observation moodCode="EVN" classCode="OBS"> <templateId root="216.840.1.351736.07.02.22.4.2" /> <id nullFlavor="NA" /> <code codeSystem="local" code="UHCST" displayName= "Hyaline Casts" /> <statusCode code="completed" /> < effectiveTime value="" /> <value unit="/LPF" xsi:type="PQ" value="1" /> <referenceRange> <observationRange> <text>0-3</text> </observationRange> </referenceRange> </observation> </component> <component> <observation moodCode="EVN" classCode="OBS"> <templateId root= "216.840.1.062500.07.02.22.4.2" /> <id nullFlavor="NA" /> < code codeSystem="local" code="URBC" displayName="RBC, Urine" /> < statusCode code="completed" /> <effectiveTime value="" /> <value unit="/HPF" xsi:type="PQ" value="0" /> <referenceRange > <observationRange> <text>0-2</text> </ observationRange> </referenceRange> </observation> </ component> <component> <observation moodCode="EVN" classCode="OBS"> <templateId root="840.1.287165.10.4.2" /> <id nullFlavor="NA" /> <code codeSystem="local" code="UMUC" displayName= "Urine Mucus" /> <statusCode code="completed" /> < effectiveTime value="" /> <value unit="NA" xsi:type="PQ" value="Present" /> <referenceRange> <observationRange> <text /> </observationRange> </referenceRange> </observation> </component> <component> <observation moodCode="EVN" classCode="OBS"> <templateId root= "840.1.989208.07.02.22.4.2" /> <id nullFlavor="NA" /> < code codeSystem="local" code="UWBC" displayName="WBC, Urine" /> < statusCode code="completed" /> <effectiveTime value="" /> <value unit="/HPF" xsi:type="PQ" value="0" /> <referenceRange > <observationRange> <text>0-4</text> </ observationRange> </referenceRange> </observation> </ component> </organizer> </entry> <entry> <organizer moodCode="EVN" classCode="BATTERY"> <templateId root="840.1.296423.07.02.22.4.1" /> <id nullFlavor="NA" /> <code codeSystem="local" code="ACET" displayName="Acetone" /> <statusCode code="completed" /> <component> <observation moodCode="EVN" classCode="OBS"> <templateId root= "840.1.742617.07.02.22.4.2" /> <id nullFlavor="NA" /> < code codeSystem="local" code="ACET" displayName="Acetone" /> < statusCode code="completed" /> <effectiveTime value="213492001869" /> <value unit="mg/dL" xsi:type="PQ" value="Negative" /> < referenceRange> <observationRange> <text>Negative</text > </observationRange> </referenceRange> </observation > </component> </organizer> </entry> <entry> <organizer moodCode= "EVN" classCode="BATTERY"> <templateId root="216.840.1.054448.10..22.4.1 " /> <id nullFlavor="NA" /> <code codeSystem="local" code="CORTA" displayName="Cortisol AM" /> <statusCode code="completed" /> < component> <observation moodCode="EVN" classCode="OBS"> < templateId root="16.840.1.263995.10..22.4.2" /> <id nullFlavor="NA " /> <code codeSystem="local" code="CORTA" displayName="Cortisol AM" / > <statusCode code="completed" /> <effectiveTime value= "065166946284" /> <value unit="ug/dL" xsi:type="PQ" value="8" /> <referenceRange> <observationRange> <text>7-18</text > </observationRange> </referenceRange> </observation > </component> </organizer> </entry> <entry> <organizer moodCode= "EVN" classCode="BATTERY"> <templateId root="16.840.1.706981.10..22.4.1 " /> <id nullFlavor="NA" /> <code codeSystem="local" code="INS" displayName="Insulin" /> <statusCode code="completed" /> <component> <observation moodCode="EVN" classCode="OBS"> <templateId root= "2.16.840.1.981612.10..22.4.2" /> <id nullFlavor="NA" /> < code codeSystem="local" code="INS" displayName="Insulin" /> < statusCode code="completed" /> <effectiveTime value="673030738276" /> <value unit="uIU/mL" xsi:type="PQ" value="89" /> < interpretationCode codeSystem="local" code="*" /> <referenceRange> <observationRange> <text>2-23</text> </ observationRange> </referenceRange> </observation> </ component> </organizer> </entry> <entry> <organizer moodCode="EVN" classCode="BATTERY"> <templateId root="216.840.1.397024.10..22.4.1" /> <id nullFlavor="NA" /> <code codeSystem="local" code="TROP" displayName="Troponin" /> <statusCode code="completed" /> <component> <observation moodCode="EVN" classCode="OBS"> <templateId root= "2.16.840.1.711131.10..22.4.2" /> <id nullFlavor="NA" /> < code codeSystem="local" code="TROP" displayName="Troponin" /> < statusCode code="completed" /> <effectiveTime value="484055713468" /> <value unit="ng/mL" xsi:type="PQ" value="2.07" /> < interpretationCode codeSystem="local" code="" /> <referenceRange> <observationRange> <text><0.06</text> </ observationRange> </referenceRange> </observation> </ component> </organizer> </entry> <entry> <organizer moodCode="EVN" classCode="BATTERY"> <templateId root="10.29.840.1.587161.10..22.4.1" /> <id nullFlavor="NA" /> <code codeSystem="local" code="LIVER" displayName="Hepatic Function Panel" /> <statusCode code="completed" /> <component> <observation moodCode="EVN" classCode="OBS"> < templateId root="10.29.840.1.864492.10..22.4.2" /> <id nullFlavor="NA " /> <code codeSystem="local" code="ALB" displayName="Albumin" /> <statusCode code="completed" /> <effectiveTime value="742444495057 " /> <value unit="g/dL" xsi:type="PQ" value="2.9" /> < interpretationCode codeSystem="local" code="*" /> <referenceRange> <observationRange> <text>3.5-4.8</text> </ observationRange> </referenceRange> </observation> </ component> <component> <observation moodCode="EVN" classCode="OBS"> <templateId root="10.29.840.1.462939.10..22.4.2" /> <id nullFlavor="NA" /> <code codeSystem="local" code="ALP" displayName= "Alkaline Phosphatase" /> <statusCode code="completed" /> < effectiveTime value="220448587359" /> <value unit="U/L" xsi:type="PQ" value="99" /> <referenceRange> <observationRange> <text>26-104</text> </observationRange> </referenceRange > </observation> </component> <component> <observation moodCode="EVN" classCode="OBS"> <templateId root= "840.1.339837.10..22.4.2" /> <id nullFlavor="NA" /> < code codeSystem="local" code="ALT" displayName="ALT (SGPT)" /> < statusCode code="completed" /> <effectiveTime value="246479492554" /> <value unit="U/L" xsi:type="PQ" value="1721" /> < interpretationCode codeSystem="local" code="*" /> <referenceRange> <observationRange> <text>17-63</text> </ observationRange> </referenceRange> </observation> </ component> <component> <observation moodCode="EVN" classCode="OBS"> <templateId root="10.29.840.1.125977.10.22.4.2" /> <id nullFlavor="NA" /> <code codeSystem="local" code="BILID" displayName= "Bilirubin Direct" /> <statusCode code="completed" /> < effectiveTime value="" /> <value unit="mg/dL" xsi:type="PQ " value="0.6" /> <interpretationCode codeSystem="local" code="*" /> <referenceRange> <observationRange> <text>0.0-0.2 </text> </observationRange> </referenceRange> </ observation> </component> <component> <observation moodCode= "EVN" classCode="OBS"> <templateId root="10.29.840.1.757527.10.2022.4.2 " /> <id nullFlavor="NA" /> <code codeSystem="local" code= "BILII" displayName="Bilirubin Indirect" /> <statusCode code="completed " /> <effectiveTime value="507532977126" /> <value unit="mg/dL " xsi:type="PQ" value="0.6" /> <referenceRange> < observationRange> <text>0.0-1.0</text> </ observationRange> </referenceRange> </observation> </ component> <component> <observation moodCode="EVN" classCode="OBS"> <templateId root="16.840.1.143966.10..22.4.2" /> <id nullFlavor="NA" /> <code codeSystem="local" code="BILIT" displayName= "Bilirubin Total" /> <statusCode code="completed" /> < effectiveTime value="945041200860" /> <value unit="mg/dL" xsi:type="PQ " value="1.2" /> <referenceRange> <observationRange> <text>0.2-1.2</text> </observationRange> </ referenceRange> </observation> </component> <component> <observation moodCode="EVN" classCode="OBS"> <templateId root= "10.29.840.1.635893.10...4.2" /> <id nullFlavor="NA" /> < code codeSystem="local" code="TP" displayName="Protein" /> <statusCode code="completed" /> <effectiveTime value="776055532025" /> < value unit="g/dL" xsi:type="PQ" value="6.0" /> <interpretationCode codeSystem="local" code="*" /> <referenceRange> < observationRange> <text>6.1-7.9</text> </ observationRange> </referenceRange> </observation> </ component> </organizer> </entry> <entry> <organizer moodCode="EVN" classCode="BATTERY"> <templateId root="16.840.1.882122.10..22.4.1" /> <id nullFlavor="NA" /> <code codeSystem="local" code="Z2064" displayName="Beta-Hydroxybutyrate, Serum" /> <statusCode code="completed" / > <component> <observation moodCode="EVN" classCode="OBS"> <templateId root="16.840.1.380408.10..22.4.2" /> <id nullFlavor="NA " /> <code codeSystem="local" code="Z2064" displayName="Beta- Hydroxybutyrate, Serum" /> <statusCode code="completed" /> < effectiveTime value="[id number]" /> <value unit="mmol/L" xsi:type="PQ " value="0.1" /> <referenceRange> <observationRange> <text><0.4</text> </observationRange> </ referenceRange> </observation> </component> </organizer> </entry > <entry> <organizer moodCode="EVN" classCode="BATTERY"> <templateId root="10.29.840.1.207079.10...4.1" /> <id nullFlavor="NA" /> <code codeSystem="local" code="Z0249" displayName="Growth Hormone" /> < statusCode code="completed" /> <component> <observation moodCode= "EVN" classCode="OBS"> <templateId root="10.29.840.1.722973.10..22.4.2 " /> <id nullFlavor="NA" /> <code codeSystem="local" code= "Z0249" displayName="Growth Hormone" /> <statusCode code="completed" / > <effectiveTime value="[id number]" /> <value unit="ng/mL" xsi:type="PQ" value="0.36" /> <referenceRange> < observationRange> <text /> </observationRange> </referenceRange> </observation> </component> </organizer> </ entry> <entry> <organizer moodCode="EVN" classCode="BATTERY"> < templateId root="10.29.840.1.648786.07.02.22.4.1" /> <id nullFlavor="NA" /> <code codeSystem="local" code="GLUN" displayName="Glucose NPT" /> < statusCode code="completed" /> <component> <observation moodCode= "EVN" classCode="OBS"> <templateId root="840.1.013071.07.02.224.2 " /> <id nullFlavor="NA" /> <code codeSystem="local" code= "GLUN" displayName="Glucose NPT" /> <statusCode code="completed" /> <effectiveTime value="773600667738" /> <value unit="mg/dL" xsi: type="PQ" value="122" /> <interpretationCode codeSystem="local" code="* " /> <referenceRange> <observationRange> <text> 70-100</text> </observationRange> </referenceRange> < /observation> </component> </organizer> </entry> <entry> < organizer moodCode="EVN" classCode="BATTERY"> <templateId root= "840.1.951697.07.02.224.1" /> <id nullFlavor="NA" /> <code codeSystem="local" code="GLUN" displayName="Glucose NPT" /> <statusCode code="completed" /> <component> <observation moodCode="EVN" classCode="OBS"> <templateId root="10.29.840.1.419995.07.02.22.4.2" /> <id nullFlavor="NA" /> <code codeSystem="local" code="GLUN" displayName="Glucose NPT" /> <statusCode code="completed" /> <effectiveTime value="675213092835" /> <value unit="mg/dL" xsi:type="PQ " value="103" /> <interpretationCode codeSystem="local" code="*" /> <referenceRange> <observationRange> <text>70-100< /text> </observationRange> </referenceRange> </ observation> </component> </organizer> </entry> <entry> <organizer moodCode="EVN" classCode="BATTERY"> <templateId root= "16.840.1.746812.10..22.4.1" /> <id nullFlavor="NA" /> <code codeSystem="local" code="TROP" displayName="Troponin" /> <statusCode code= "completed" /> <component> <observation moodCode="EVN" classCode= "OBS"> <templateId root="10.29.840.1.180438.10..22.4.2" /> < id nullFlavor="NA" /> <code codeSystem="local" code="TROP" displayName= "Troponin" /> <statusCode code="completed" /> <effectiveTime value="293399527105" /> <value unit="ng/mL" xsi:type="PQ" value="3.52" /> <interpretationCode codeSystem="local" code="" /> < referenceRange> <observationRange> <text><0.06</text > </observationRange> </referenceRange> </observation > </component> </organizer> </entry> <entry> <organizer moodCode= "EVN" classCode="BATTERY"> <templateId root="10.29.840.1.295231.10.20.22.4.1 " /> <id nullFlavor="NA" /> <code codeSystem="local" code="CBCND" displayName="CBC With Platelet No Differential" /> <statusCode code= "completed" /> <component> <observation moodCode="EVN" classCode= "OBS"> <templateId root="10.29.840.1.933418.10.22.4.2" /> < id nullFlavor="NA" /> <code codeSystem="local" code="HCT" displayName= "HCT" /> <statusCode code="completed" /> <effectiveTime value= "" /> <value unit="%" xsi:type="PQ" value="34.5" /> <interpretationCode codeSystem="local" code="*" /> < referenceRange> <observationRange> <text>42.0-52.0</text > </observationRange> </referenceRange> </observation > </component> <component> <observation moodCode="EVN" classCode="OBS"> <templateId root="10.29.840.1.061233.1022.4.2" /> <id nullFlavor="NA" /> <code codeSystem="local" code="HGB" displayName="HGB" /> <statusCode code="completed" /> < effectiveTime value="" /> <value unit="g/dL" xsi:type="PQ" value="11.2" /> <interpretationCode codeSystem="local" code="*" /> <referenceRange> <observationRange> <text>14.0- 18.0</text> </observationRange> </referenceRange> </ observation> </component> <component> <observation moodCode= "EVN" classCode="OBS"> <templateId root="10.29.840.1.457125.10.2022.4.2 " /> <id nullFlavor="NA" /> <code codeSystem="local" code="MCH " displayName="MCH" /> <statusCode code="completed" /> < effectiveTime value="" /> <value unit="pg" xsi:type="PQ" value="28.7" /> <referenceRange> <observationRange> <text>27.0-32.0</text> </observationRange> </ referenceRange> </observation> </component> <component> <observation moodCode="EVN" classCode="OBS"> <templateId root= "216.840.1.877539.10..4.2" /> <id nullFlavor="NA" /> < code codeSystem="local" code="MCHC" displayName="MCHC" /> <statusCode code="completed" /> <effectiveTime value="" /> < value unit="g/dL" xsi:type="PQ" value="32.5" /> <referenceRange> <observationRange> <text>32.0-36.0</text> </ observationRange> </referenceRange> </observation> </ component> <component> <observation moodCode="EVN" classCode="OBS"> <templateId root="216.840.1.941885.10..4.2" /> <id nullFlavor="NA" /> <code codeSystem="local" code="MCV" displayName="MCV " /> <statusCode code="completed" /> <effectiveTime value= "" /> <value unit="fL" xsi:type="PQ" value="88.5" /> <referenceRange> <observationRange> <text>82.0-99.0< /text> </observationRange> </referenceRange> </ observation> </component> <component> <observation moodCode= "EVN" classCode="OBS"> <templateId root="216.840.1.652558.07.02.22.4.2 " /> <id nullFlavor="NA" /> <code codeSystem="local" code="MPV " displayName="MPV" /> <statusCode code="completed" /> < effectiveTime value="" /> <value unit="fL" xsi:type="PQ" value="11.9" /> <referenceRange> <observationRange> <text>9.4-12.3</text> </observationRange> </ referenceRange> </observation> </component> <component> <observation moodCode="EVN" classCode="OBS"> <templateId root= "216.840.1.260240.07.02.224.2" /> <id nullFlavor="NA" /> < code codeSystem="local" code="PLT" displayName="Platelet Count" /> < statusCode code="completed" /> <effectiveTime value="" /> <value unit="K/uL" xsi:type="PQ" value="144" /> < interpretationCode codeSystem="local" code="*" /> <referenceRange> <observationRange> <text>150-400</text> </ observationRange> </referenceRange> </observation> </ component> <component> <observation moodCode="EVN" classCode="OBS"> <templateId root="10.29.840.1.998370.07.02.224.2" /> <id nullFlavor="NA" /> <code codeSystem="local" code="RBC" displayName="RBC " /> <statusCode code="completed" /> <effectiveTime value= "" /> <value unit="10*6/uL" xsi:type="PQ" value="3.90" /> <interpretationCode codeSystem="local" code="*" /> < referenceRange> <observationRange> <text>4.60-6.20</text > </observationRange> </referenceRange> </observation > </component> <component> <observation moodCode="EVN" classCode="OBS"> <templateId root="10.29.840.1.259421.10.20.22.4.2" /> <id nullFlavor="NA" /> <code codeSystem="local" code="RDW" displayName="RDW" /> <statusCode code="completed" /> < effectiveTime value="" /> <value unit="%" xsi:type="PQ " value="15.9" /> <interpretationCode codeSystem="local" code="*" /> <referenceRange> <observationRange> <text>11.5- 14.5</text> </observationRange> </referenceRange> </ observation> </component> <component> <observation moodCode= "EVN" classCode="OBS"> <templateId root="10.29.840.1.797088.10.22.4.2 " /> <id nullFlavor="NA" /> <code codeSystem="local" code= "WBCIR" displayName="WBC" /> <statusCode code="completed" /> < effectiveTime value="472874848813" /> <value unit="K/uL" xsi:type="PQ" value="8.6" /> <referenceRange> <observationRange> <text>4.8-10.8</text> </observationRange> </ referenceRange> </observation> </component> </organizer> </entry > <entry> <organizer moodCode="EVN" classCode="BATTERY"> <templateId root="10.29.840.1.647736.10.20.22.4.1" /> <id nullFlavor="NA" /> <code codeSystem="local" code="LACID" displayName="Lactic Acid Venous" /> < statusCode code="completed" /> <component> <observation moodCode= "EVN" classCode="OBS"> <templateId root="216.840.1.972745.10..4.2 " /> <id nullFlavor="NA" /> <code codeSystem="local" code= "LACID" displayName="Lactic Acid Venous" /> <statusCode code="completed " /> <effectiveTime value="956511376031" /> <value unit="mEq/L " xsi:type="PQ" value="1.5" /> <referenceRange> < observationRange> <text>0.5-2.0</text> </ observationRange> </referenceRange> </observation> </ component> </organizer> </entry> <entry> <organizer moodCode="EVN" classCode="BATTERY"> <templateId root="16.840.1.912633.10..4.1" /> <id nullFlavor="NA" /> <code codeSystem="local" code="PTT" displayName ="PTT" /> <statusCode code="completed" /> <component> < observation moodCode="EVN" classCode="OBS"> <templateId root= "16.840.1.302151.10...4.2" /> <id nullFlavor="NA" /> < code codeSystem="local" code="PTT" displayName="PTT" /> <statusCode code="completed" /> <effectiveTime value="235211336928" /> < value unit="seconds" xsi:type="PQ" value="140.9" /> < interpretationCode codeSystem="local" code="" /> <referenceRange> <observationRange> <text>25.0-35.0</text> </ observationRange> </referenceRange> </observation> </ component> </organizer> </entry> <entry> <organizer moodCode="EVN" classCode="BATTERY"> <templateId root="840.1.206304.07.02.22.4.1" /> <id nullFlavor="NA" /> <code codeSystem="local" code="TROP" displayName="Troponin" /> <statusCode code="completed" /> <component> <observation moodCode="EVN" classCode="OBS"> <templateId root= "840.1.474989.07.02.22.4.2" /> <id nullFlavor="NA" /> < code codeSystem="local" code="TROP" displayName="Troponin" /> < statusCode code="completed" /> <effectiveTime value="558858509866" /> <value unit="ng/mL" xsi:type="PQ" value="2.97" /> < interpretationCode codeSystem="local" code="" /> <referenceRange> <observationRange> <text><0.06</text> </ observationRange> </referenceRange> </observation> </ component> </organizer> </entry> <entry> <organizer moodCode="EVN" classCode="BATTERY"> <templateId root="840.1.326575.07.02.22.4.1" /> <id nullFlavor="NA" /> <code codeSystem="local" code="CMP" displayName ="Comprehensive Metabolic Panel (CMP)" /> <statusCode code="completed" /> <component> <observation moodCode="EVN" classCode="OBS"> < templateId root="10.29.840.1.441237.10.4.2" /> <id nullFlavor="NA " /> <code codeSystem="local" code="ALB" displayName="Albumin" /> <statusCode code="completed" /> <effectiveTime value="110636838613 " /> <value unit="g/dL" xsi:type="PQ" value="3.0" /> < interpretationCode codeSystem="local" code="*" /> <referenceRange> <observationRange> <text>3.5-4.8</text> </ observationRange> </referenceRange> </observation> </ component> <component> <observation moodCode="EVN" classCode="OBS"> <templateId root="2.16.840.1.088044.10.20.22.4.2" /> <id nullFlavor="NA" /> <code codeSystem="local" code="ALP" displayName= "Alkaline Phosphatase" /> <statusCode code="completed" /> < effectiveTime value="303332144076" /> <value unit="U/L" xsi:type="PQ" value="101" /> <referenceRange> <observationRange> <text>26-104</text> </observationRange> </ referenceRange> </observation> </component> <component> <observation moodCode="EVN" classCode="OBS"> <templateId root= "216.840.1.671759.10.20.22.4.2" /> <id nullFlavor="NA" /> < code codeSystem="local" code="ALT" displayName="ALT (SGPT)" /> < statusCode code="completed" /> <effectiveTime value="370321655747" /> <value unit="U/L" xsi:type="PQ" value="1366" /> < interpretationCode codeSystem="local" code="*" /> <referenceRange> <observationRange> <text>17-63</text> </ observationRange> </referenceRange> </observation> </ component> <component> <observation moodCode="EVN" classCode="OBS"> <templateId root="16.840.1.512247.10..22.4.2" /> <id nullFlavor="NA" /> <code codeSystem="local" code="AGAP" displayName= "Anion Gap" /> <statusCode code="completed" /> <effectiveTime value="" /> <value unit="mEq/L" xsi:type="PQ" value="12" / > <referenceRange> <observationRange> <text>3- 20</text> </observationRange> </referenceRange> </ observation> </component> <component> <observation moodCode= "EVN" classCode="OBS"> <templateId root="10.29.840.1.243268.10..4.2 " /> <id nullFlavor="NA" /> <code codeSystem="local" code="AST " displayName="AST (SGOT)" /> <statusCode code="completed" /> <effectiveTime value="" /> <value unit="U/L" xsi:type="PQ" value="1876" /> <interpretationCode codeSystem="local" code="*" /> <referenceRange> <observationRange> <text>15-41</ text> </observationRange> </referenceRange> </ observation> </component> <component> <observation moodCode= "EVN" classCode="OBS"> <templateId root="10.29.840.1.282994.10..22.4.2 " /> <id nullFlavor="NA" /> <code codeSystem="local" code= "BILIT" displayName="Bilirubin Total" /> <statusCode code="completed" / > <effectiveTime value="" /> <value unit="mg/dL" xsi:type="PQ" value="1.4" /> <interpretationCode codeSystem="local" code="*" /> <referenceRange> <observationRange> <text>0.2-1.2</text> </observationRange> </referenceRange > </observation> </component> <component> <observation moodCode="EVN" classCode="OBS"> <templateId root= "16.840.1.521530.10..4.2" /> <id nullFlavor="NA" /> < code codeSystem="local" code="BUN" displayName="BUN" /> <statusCode code="completed" /> <effectiveTime value="" /> < value unit="mg/dL" xsi:type="PQ" value="35" /> <interpretationCode codeSystem="local" code="*" /> <referenceRange> < observationRange> <text>4-20</text> </observationRange> </referenceRange> </observation> </component> < component> <observation moodCode="EVN" classCode="OBS"> < templateId root="10.29.840.1.002823.07.02.22.4.2" /> <id nullFlavor="NA " /> <code codeSystem="local" code="CA" displayName="Calcium" /> <statusCode code="completed" /> <effectiveTime value=" " /> <value unit="mg/dL" xsi:type="PQ" value="7.7" /> < interpretationCode codeSystem="local" code="*" /> <referenceRange> <observationRange> <text>8.6-10.0</text> </ observationRange> </referenceRange> </observation> </ component> <component> <observation moodCode="EVN" classCode="OBS"> <templateId root="10.29.840.1.991540.07.02.22.4.2" /> <id nullFlavor="NA" /> <code codeSystem="local" code="CL" displayName= "Chloride" /> <statusCode code="completed" /> <effectiveTime value="545147982392" /> <value unit="mEq/L" xsi:type="PQ" value="100" / > <referenceRange> <observationRange> <text>99- 109</text> </observationRange> </referenceRange> </ observation> </component> <component> <observation moodCode= "EVN" classCode="OBS"> <templateId root="2.16.840.1.260347.10...4.2 " /> <id nullFlavor="NA" /> <code codeSystem="local" code="CO2 " displayName="CO2" /> <statusCode code="completed" /> < effectiveTime value="657052649447" /> <value unit="mEq/L" xsi:type="PQ " value="19" /> <interpretationCode codeSystem="local" code="*" /> <referenceRange> <observationRange> <text>22-32</ text> </observationRange> </referenceRange> </ observation> </component> <component> <observation moodCode= "EVN" classCode="OBS"> <templateId root="2.16.840.1.148018.10...4.2 " /> <id nullFlavor="NA" /> <code codeSystem="local" code= "CREAT" displayName="Creatinine" /> <statusCode code="completed" /> <effectiveTime value="836138481344" /> <value unit="mg/dL" xsi: type="PQ" value="1.43" /> <interpretationCode codeSystem="local" code= "*" /> <referenceRange> <observationRange> < text>0.64-1.27</text> </observationRange> </referenceRange> </observation> </component> <component> <observation moodCode="EVN" classCode="OBS"> <templateId root= "16.840.1.010375.10.4.2" /> <id nullFlavor="NA" /> < code codeSystem="local" code="GLOB" displayName="Globulin" /> < statusCode code="completed" /> <effectiveTime value="" /> <value unit="g/dL" xsi:type="PQ" value="3.0" /> < referenceRange> <observationRange> <text>1.9-4.3</text> </observationRange> </referenceRange> </observation > </component> <component> <observation moodCode="EVN" classCode="OBS"> <templateId root="10.29.840.1.986112.07.02.22.4.2" /> <id nullFlavor="NA" /> <code codeSystem="local" code="GLU" displayName="Glucose" /> <statusCode code="completed" /> < effectiveTime value="" /> <value unit="mg/dL" xsi:type="PQ " value="128" /> <interpretationCode codeSystem="local" code="*" /> <referenceRange> <observationRange> <text>70-100< /text> </observationRange> </referenceRange> </ observation> </component> <component> <observation moodCode= "EVN" classCode="OBS"> <templateId root="16.840.1.052103...4.2 " /> <id nullFlavor="NA" /> <code codeSystem="local" code="K" displayName="Potassium" /> <statusCode code="completed" /> < effectiveTime value="" /> <value unit="mEq/L" xsi:type="PQ " value="4.3" /> <referenceRange> <observationRange> <text>3.6-5.1</text> </observationRange> </ referenceRange> </observation> </component> <component> <observation moodCode="EVN" classCode="OBS"> <templateId root= "216.840.1.216679.10..4.2" /> <id nullFlavor="NA" /> < code codeSystem="local" code="TP" displayName="Protein" /> <statusCode code="completed" /> <effectiveTime value="076710397215" /> < value unit="g/dL" xsi:type="PQ" value="6.0" /> <interpretationCode codeSystem="local" code="*" /> <referenceRange> < observationRange> <text>6.1-7.9</text> </ observationRange> </referenceRange> </observation> </ component> <component> <observation moodCode="EVN" classCode="OBS"> <templateId root="16.840.1.312276.07.02.22.4.2" /> <id nullFlavor="NA" /> <code codeSystem="local" code="NA" displayName= "Sodium" /> <statusCode code="completed" /> <effectiveTime value="133151084069" /> <value unit="mEq/L" xsi:type="PQ" value="131" / > <interpretationCode codeSystem="local" code="*" /> < referenceRange> <observationRange> <text>136-144</text> </observationRange> </referenceRange> </observation > </component> </organizer> </entry> <entry> <organizer moodCode= "EVN" classCode="BATTERY"> <templateId root="16.840.1.897494.07.02.22.4.1 " /> <id nullFlavor="NA" /> <code codeSystem="local" code="GFR" displayName="eGFR" /> <statusCode code="completed" /> <component> <observation moodCode="EVN" classCode="OBS"> <templateId root= "840.1.701171.07.02.22.4.2" /> <id nullFlavor="NA" /> < code codeSystem="local" code="GFR" displayName="eGFR" /> <statusCode code="completed" /> <effectiveTime value="219101221201" /> < value unit="mL/min" xsi:type="PQ" value="53" /> <interpretationCode codeSystem="local" code="*" /> <referenceRange> < observationRange> <text>>60</text> </observationRange > </referenceRange> </observation> </component> </ organizer> </entry> <entry> <organizer moodCode="EVN" classCode="BATTERY"> <templateId root="840.1.371909.07.02.224.1" /> <id nullFlavor= "NA" /> <code codeSystem="local" code="GLUN" displayName="Glucose NPT" /> <statusCode code="completed" /> <component> <observation moodCode="EVN" classCode="OBS"> <templateId root= "840.1.968487.07.02.22.4.2" /> <id nullFlavor="NA" /> < code codeSystem="local" code="GLUN" displayName="Glucose NPT" /> < statusCode code="completed" /> <effectiveTime value="002712329801" /> <value unit="mg/dL" xsi:type="PQ" value="129" /> < interpretationCode codeSystem="local" code="*" /> <referenceRange> <observationRange> <text>70-100</text> </ observationRange> </referenceRange> </observation> </ component> </organizer> </entry> <entry> <organizer moodCode="EVN" classCode="BATTERY"> <templateId root="10.29.840.1.326011.10..4.1" /> <id nullFlavor="NA" /> <code codeSystem="local" code="PTT" displayName ="PTT" /> <statusCode code="completed" /> <component> < observation moodCode="EVN" classCode="OBS"> <templateId root= "10.29.840.1.600026.07.02.22.4.2" /> <id nullFlavor="NA" /> < code codeSystem="local" code="PTT" displayName="PTT" /> <statusCode code="completed" /> <effectiveTime value="314223057311" /> < value unit="seconds" xsi:type="PQ" value="102.6" /> < interpretationCode codeSystem="local" code="*" /> <referenceRange> <observationRange> <text>25.0-35.0</text> </ observationRange> </referenceRange> </observation> </ component> </organizer> </entry> <entry> <organizer moodCode="EVN" classCode="BATTERY"> <templateId root="10.29.840.1.644061.22.4.1" /> <id nullFlavor="NA" /> <code codeSystem="local" code="GLUN" displayName="Glucose NPT" /> <statusCode code="completed" /> < component> <observation moodCode="EVN" classCode="OBS"> < templateId root="10.29.840.1.095401.07.02.22.4.2" /> <id nullFlavor="NA " /> <code codeSystem="local" code="GLUN" displayName="Glucose NPT" / > <statusCode code="completed" /> <effectiveTime value= "325473419424" /> <value unit="mg/dL" xsi:type="PQ" value="90" /> <referenceRange> <observationRange> <text>70-100</ text> </observationRange> </referenceRange> </ observation> </component> </organizer> </entry> <entry> <organizer moodCode="EVN" classCode="BATTERY"> <templateId root= "216.840.1.979841.07.02.22.4.1" /> <id nullFlavor="NA" /> <code codeSystem="local" code="ABGRT" displayName="Blood Gases, Arterial (RT)" /> <statusCode code="completed" /> <component> <observation moodCode= "EVN" classCode="OBS"> <templateId root="216.840.1.955956.10...4.2 " /> <id nullFlavor="NA" /> <code codeSystem="local" code="YNES " displayName="Arterial Base Excess" /> <statusCode code="completed" / > <effectiveTime value="078433551976" /> <value unit="NA" xsi: type="PQ" value="-5" /> <interpretationCode codeSystem="local" code="* " /> <referenceRange> <observationRange> <text> 0-2</text> </observationRange> </referenceRange> </ observation> </component> <component> <observation moodCode= "EVN" classCode="OBS"> <templateId root="16.840.1.707549.10..4.2 " /> <id nullFlavor="NA" /> <code codeSystem="local" code= "AHCO3" displayName="Arterial Bicarbonate" /> <statusCode code= "completed" /> <effectiveTime value="722964121924" /> <value unit="mEq/L" xsi:type="PQ" value="19" /> <interpretationCode codeSystem ="local" code="*" /> <referenceRange> <observationRange> <text>22-26</text> </observationRange> </ referenceRange> </observation> </component> <component> <observation moodCode="EVN" classCode="OBS"> <templateId root= "2.16.840.1.277403.10..4.2" /> <id nullFlavor="NA" /> < code codeSystem="local" code="AOSAT" displayName="Arterial O2 Saturation" /> <statusCode code="completed" /> <effectiveTime value= "275403760836" /> <value unit="%" xsi:type="PQ" value="93.2" /> <referenceRange> <observationRange> <text>90.0- 97.0</text> </observationRange> </referenceRange> </ observation> </component> <component> <observation moodCode= "EVN" classCode="OBS"> <templateId root="2.16.840.1.008590.10..4.2 " /> <id nullFlavor="NA" /> <code codeSystem="local" code= "APCO2" displayName="Arterial PCO2" /> <statusCode code="completed" /> <effectiveTime value="" /> <value unit="mmHg" xsi :type="PQ" value="29" /> <interpretationCode codeSystem="local" code="* " /> <referenceRange> <observationRange> <text> 35-45</text> </observationRange> </referenceRange> </ observation> </component> <component> <observation moodCode= "EVN" classCode="OBS"> <templateId root="10.29.840.1.465162.10.4.2 " /> <id nullFlavor="NA" /> <code codeSystem="local" code="APH " displayName="Arterial PH" /> <statusCode code="completed" /> <effectiveTime value="571999437920" /> <value unit="NA" xsi:type="PQ " value="7.43" /> <referenceRange> <observationRange> <text>7.35-7.45</text> </observationRange> </ referenceRange> </observation> </component> <component> <observation moodCode="EVN" classCode="OBS"> <templateId root= "10.29.840.1.703922.07.02.22.4.2" /> <id nullFlavor="NA" /> < code codeSystem="local" code="APO2" displayName="Arterial PO2" /> < statusCode code="completed" /> <effectiveTime value="862259762901" /> <value unit="mmHg" xsi:type="PQ" value="66" /> < interpretationCode codeSystem="local" code="*" /> <referenceRange> <observationRange> <text>80-100</text> </ observationRange> </referenceRange> </observation> </ component> <component> <observation moodCode="EVN" classCode="OBS"> <templateId root="10.29.840.1.324363...4.2" /> <id nullFlavor="NA" /> <code codeSystem="local" code="AFLOW" displayName= "Arterial LPM" /> <statusCode code="completed" /> < effectiveTime value="313189747356" /> <value unit="L/min" xsi:type="PQ " value="2.00" /> <referenceRange> <observationRange> <text /> </observationRange> </referenceRange> </observation> </component> <component> <observation moodCode="EVN" classCode="OBS"> <templateId root= "840.1.071114.10.22.4.2" /> <id nullFlavor="NA" /> < code codeSystem="local" code="AO2PN" displayName="O2 Panel" /> < statusCode code="completed" /> <effectiveTime value="647783848951" /> <value unit="" xsi:type="PQ" value="SEE BELOW" /> < referenceRange> <observationRange> <text /> < /observationRange> </referenceRange> </observation> </ component> </organizer> </entry> <entry> <organizer moodCode="EVN" classCode="BATTERY"> <templateId root="840.1.103152.1022.4.1" /> <id nullFlavor="NA" /> <code codeSystem="local" code="PTT" displayName ="PTT" /> <statusCode code="completed" /> <component> < observation moodCode="EVN" classCode="OBS"> <templateId root= "10.29.840.1.948266.10.2022.4.2" /> <id nullFlavor="NA" /> < code codeSystem="local" code="PTT" displayName="PTT" /> <statusCode code="completed" /> <effectiveTime value="736977285671" /> < value unit="seconds" xsi:type="PQ" value="84.9" /> <interpretationCode codeSystem="local" code="*" /> <referenceRange> < observationRange> <text>25.0-35.0</text> </ observationRange> </referenceRange> </observation> </ component> </organizer> </entry> <entry> <organizer moodCode="EVN" classCode="BATTERY"> <templateId root="840.1.720008.07.02.22.4.1" /> <id nullFlavor="NA" /> <code codeSystem="local" code="TROP" displayName="Troponin" /> <statusCode code="completed" /> <component> <observation moodCode="EVN" classCode="OBS"> <templateId root= "840.1.278125.07.02.22.4.2" /> <id nullFlavor="NA" /> < code codeSystem="local" code="TROP" displayName="Troponin" /> < statusCode code="completed" /> <effectiveTime value="916527493345" /> <value unit="ng/mL" xsi:type="PQ" value="2.02" /> < interpretationCode codeSystem="local" code="" /> <referenceRange> <observationRange> <text><0.06</text> </ observationRange> </referenceRange> </observation> </ component> </organizer> </entry> <entry> <organizer moodCode="EVN" classCode="BATTERY"> <templateId root="840.1.572176.07.02.22.4.1" /> <id nullFlavor="NA" /> <code codeSystem="local" code="HA1C" displayName="Hemoglobin A1C" /> <statusCode code="completed" /> < component> <observation moodCode="EVN" classCode="OBS"> < templateId root="840.1.405309.10...4.2" /> <id nullFlavor="NA " /> <code codeSystem="local" code="HA1C" displayName="Hemoglobin A1C" /> <statusCode code="completed" /> <effectiveTime value= "151239741327" /> <value unit="%" xsi:type="PQ" value="5.7" /> <interpretationCode codeSystem="local" code="*" /> < referenceRange> <observationRange> <text>4.1-5.6</text> </observationRange> </referenceRange> </observation > </component> </organizer> </entry> <entry> <organizer moodCode= "EVN" classCode="BATTERY"> <templateId root="16.840.1.236384.10..22.4.1 " /> <id nullFlavor="NA" /> <code codeSystem="local" code="EAG" displayName="Estimated Average Glucose" /> <statusCode code="completed" /> <component> <observation moodCode="EVN" classCode="OBS"> < templateId root="16.840.1.992170.10..22.4.2" /> <id nullFlavor="NA " /> <code codeSystem="local" code="EAG" displayName="Estimated Average Glucose" /> <statusCode code="completed" /> < effectiveTime value="880428260459" /> <value unit="mg/dL" xsi:type="PQ " value="116.9" /> <referenceRange> <observationRange> <text /> </observationRange> </referenceRange> </observation> </component> </organizer> </entry> <entry> < organizer moodCode="EVN" classCode="BATTERY"> <templateId root= "10.29.840.1.711543.10.20.22.4.1" /> <id nullFlavor="NA" /> <code codeSystem="local" code="GLUN" displayName="Glucose NPT" /> <statusCode code="completed" /> <component> <observation moodCode="EVN" classCode="OBS"> <templateId root="16.840.1.393599.07.02.22.4.2" /> <id nullFlavor="NA" /> <code codeSystem="local" code="GLUN" displayName="Glucose NPT" /> <statusCode code="completed" /> <effectiveTime value="902460884157" /> <value unit="mg/dL" xsi:type="PQ " value="192" /> <interpretationCode codeSystem="local" code="*" /> <referenceRange> <observationRange> <text>70-100< /text> </observationRange> </referenceRange> </ observation> </component> </organizer> </entry> <entry> <organizer moodCode="EVN" classCode="BATTERY"> <templateId root= "10.29.840.1.887409.07.02.22.4.1" /> <id nullFlavor="NA" /> <code codeSystem="local" code="GLUN" displayName="Glucose NPT" /> <statusCode code="completed" /> <component> <observation moodCode="EVN" classCode="OBS"> <templateId root="10.29.840.1.773854.07.02.22.4.2" /> <id nullFlavor="NA" /> <code codeSystem="local" code="GLUN" displayName="Glucose NPT" /> <statusCode code="completed" /> <effectiveTime value="689724099711" /> <value unit="mg/dL" xsi:type="PQ " value="126" /> <interpretationCode codeSystem="local" code="*" /> <referenceRange> <observationRange> <text>70-100< /text> </observationRange> </referenceRange> </ observation> </component> </organizer> </entry> <entry> <organizer moodCode="EVN" classCode="BATTERY"> <templateId root= "10.29.840.1.786533.07.02.22.4.1" /> <id nullFlavor="NA" /> <code codeSystem="local" code="PT" displayName="Protime (INR)" /> <statusCode code="completed" /> <component> <observation moodCode="EVN" classCode="OBS"> <templateId root="840.1.311034.07.02.224.2" /> <id nullFlavor="NA" /> <code codeSystem="local" code="INR" displayName="INR" /> <statusCode code="completed" /> < effectiveTime value="001247090943" /> <value unit="NA" xsi:type="PQ" value="1.1" /> <referenceRange> <observationRange> <text>0.9-1.2</text> </observationRange> </ referenceRange> </observation> </component> </organizer> </entry > <entry> <organizer moodCode="EVN" classCode="BATTERY"> <templateId root="840.1.749592.07.02.22.4.1" /> <id nullFlavor="NA" /> <code codeSystem="local" code="PTT" displayName="PTT" /> <statusCode code= "completed" /> <component> <observation moodCode="EVN" classCode= "OBS"> <templateId root="10.29.840.1.938728.07.02.22.4.2" /> < id nullFlavor="NA" /> <code codeSystem="local" code="PTT" displayName= "PTT" /> <statusCode code="completed" /> <effectiveTime value= "612012739489" /> <value unit="seconds" xsi:type="PQ" value="61.7" /> <interpretationCode codeSystem="local" code="*" /> < referenceRange> <observationRange> <text>25.0-35.0</text > </observationRange> </referenceRange> </observation > </component> </organizer> </entry> <entry> <organizer moodCode= "EVN" classCode="BATTERY"> <templateId root="16.840.1.652495.10..22.4.1 " /> <id nullFlavor="NA" /> <code codeSystem="local" code="CBCWD" displayName="CBC With Platelet and Differential" /> <statusCode code= "completed" /> <component> <observation moodCode="EVN" classCode= "OBS"> <templateId root="10.29.840.1.383021.10..22.4.2" /> < id nullFlavor="NA" /> <code codeSystem="local" code="HCT" displayName= "HCT" /> <statusCode code="completed" /> <effectiveTime value= "610000823121" /> <value unit="%" xsi:type="PQ" value="34.7" /> <interpretationCode codeSystem="local" code="*" /> < referenceRange> <observationRange> <text>42.0-52.0</text > </observationRange> </referenceRange> </observation > </component> <component> <observation moodCode="EVN" classCode="OBS"> <templateId root="10.29.840.1.917406.10.20.22.4.2" /> <id nullFlavor="NA" /> <code codeSystem="local" code="HGB" displayName="HGB" /> <statusCode code="completed" /> < effectiveTime value="783795734400" /> <value unit="g/dL" xsi:type="PQ" value="11.5" /> <interpretationCode codeSystem="local" code="*" /> <referenceRange> <observationRange> <text>14.0- 18.0</text> </observationRange> </referenceRange> </ observation> </component> <component> <observation moodCode= "EVN" classCode="OBS"> <templateId root="216.840.1.022000.10.20.22.4.2 " /> <id nullFlavor="NA" /> <code codeSystem="local" code="MCH " displayName="MCH" /> <statusCode code="completed" /> < effectiveTime value="078796430717" /> <value unit="pg" xsi:type="PQ" value="29.4" /> <referenceRange> <observationRange> <text>27.0-32.0</text> </observationRange> </ referenceRange> </observation> </component> <component> <observation moodCode="EVN" classCode="OBS"> <templateId root= "16.840.1.237001.10.20.22.4.2" /> <id nullFlavor="NA" /> < code codeSystem="local" code="MCHC" displayName="MCHC" /> <statusCode code="completed" /> <effectiveTime value="967493868658" /> < value unit="g/dL" xsi:type="PQ" value="33.1" /> <referenceRange> <observationRange> <text>32.0-36.0</text> </ observationRange> </referenceRange> </observation> </ component> <component> <observation moodCode="EVN" classCode="OBS"> <templateId root="2.16.840.1.049504.10..22.4.2" /> <id nullFlavor="NA" /> <code codeSystem="local" code="MCV" displayName="MCV " /> <statusCode code="completed" /> <effectiveTime value= "" /> <value unit="fL" xsi:type="PQ" value="88.7" /> <referenceRange> <observationRange> <text>82.0-99.0< /text> </observationRange> </referenceRange> </ observation> </component> <component> <observation moodCode= "EVN" classCode="OBS"> <templateId root="16.840.1.760224...4.2 " /> <id nullFlavor="NA" /> <code codeSystem="local" code="MPV " displayName="MPV" /> <statusCode code="completed" /> < effectiveTime value="" /> <value unit="fL" xsi:type="PQ" value="11.9" /> <referenceRange> <observationRange> <text>9.4-12.3</text> </observationRange> </ referenceRange> </observation> </component> <component> <observation moodCode="EVN" classCode="OBS"> <templateId root= "10.29.840.1.290751.1022.4.2" /> <id nullFlavor="NA" /> < code codeSystem="local" code="PLT" displayName="Platelet Count" /> < statusCode code="completed" /> <effectiveTime value="" /> <value unit="K/uL" xsi:type="PQ" value="192" /> < referenceRange> <observationRange> <text>150-400</text> </observationRange> </referenceRange> </observation > </component> <component> <observation moodCode="EVN" classCode="OBS"> <templateId root="16.840.1.770294.07.02.22.4.2" /> <id nullFlavor="NA" /> <code codeSystem="local" code="RBC" displayName="RBC" /> <statusCode code="completed" /> < effectiveTime value="782149203533" /> <value unit="10*6/uL" xsi:type= "PQ" value="3.91" /> <interpretationCode codeSystem="local" code="*" / > <referenceRange> <observationRange> <text> 4.60-6.20</text> </observationRange> </referenceRange> </observation> </component> <component> <observation moodCode="EVN" classCode="OBS"> <templateId root= "10.29.840.1.136475.07.02.224.2" /> <id nullFlavor="NA" /> < code codeSystem="local" code="RDW" displayName="RDW" /> <statusCode code="completed" /> <effectiveTime value="813346234119" /> < value unit="%" xsi:type="PQ" value="16.0" /> <interpretationCode codeSystem="local" code="*" /> <referenceRange> < observationRange> <text>11.5-14.5</text> </ observationRange> </referenceRange> </observation> </ component> <component> <observation moodCode="EVN" classCode="OBS"> <templateId root="10.29.840.1.187619.07.02.22.4.2" /> <id nullFlavor="NA" /> <code codeSystem="local" code="WBCIR" displayName= "WBC" /> <statusCode code="completed" /> <effectiveTime value= "194653085325" /> <value unit="K/uL" xsi:type="PQ" value="15.6" /> <interpretationCode codeSystem="local" code="*" /> < referenceRange> <observationRange> <text>4.8-10.8</text > </observationRange> </referenceRange> </observation > </component> </organizer> </entry> <entry> <organizer moodCode= "EVN" classCode="BATTERY"> <templateId root="10.29.840.1.074769.10..22.4.1 " /> <id nullFlavor="NA" /> <code codeSystem="local" code="CMP" displayName="Comprehensive Metabolic Panel (CMP)" /> <statusCode code= "completed" /> <component> <observation moodCode="EVN" classCode= "OBS"> <templateId root="10.29.840.1.743321.10..22.4.2" /> < id nullFlavor="NA" /> <code codeSystem="local" code="ALB" displayName= "Albumin" /> <statusCode code="completed" /> <effectiveTime value="958708918251" /> <value unit="g/dL" xsi:type="PQ" value="3.0" / > <interpretationCode codeSystem="local" code="*" /> < referenceRange> <observationRange> <text>3.5-4.8</text> </observationRange> </referenceRange> </observation > </component> <component> <observation moodCode="EVN" classCode="OBS"> <templateId root="10.29.840.1.985156.10.20.22.4.2" /> <id nullFlavor="NA" /> <code codeSystem="local" code="ALP" displayName="Alkaline Phosphatase" /> <statusCode code="completed" /> <effectiveTime value="579383811162" /> <value unit="U/L" xsi: type="PQ" value="112" /> <interpretationCode codeSystem="local" code="* " /> <referenceRange> <observationRange> <text> 26-104</text> </observationRange> </referenceRange> < /observation> </component> <component> <observation moodCode= "EVN" classCode="OBS"> <templateId root="2.16.840.1.655982.10.20.22.4.2 " /> <id nullFlavor="NA" /> <code codeSystem="local" code="ALT " displayName="ALT (SGPT)" /> <statusCode code="completed" /> <effectiveTime value="802261639316" /> <value unit="U/L" xsi:type="PQ" value="916" /> <interpretationCode codeSystem="local" code="*" /> <referenceRange> <observationRange> <text>17-63</ text> </observationRange> </referenceRange> </ observation> </component> <component> <observation moodCode= "EVN" classCode="OBS"> <templateId root="216.840.1.799622.10.20.22.4.2 " /> <id nullFlavor="NA" /> <code codeSystem="local" code= "AGAP" displayName="Anion Gap" /> <statusCode code="completed" /> <effectiveTime value="427954615971" /> <value unit="mEq/L" xsi: type="PQ" value="11" /> <referenceRange> <observationRange> <text>3-20</text> </observationRange> </ referenceRange> </observation> </component> <component> <observation moodCode="EVN" classCode="OBS"> <templateId root= "10.29.840.1.319821.10.2022.4.2" /> <id nullFlavor="NA" /> < code codeSystem="local" code="AST" displayName="AST (SGOT)" /> < statusCode code="completed" /> <effectiveTime value="393026155624" /> <value unit="U/L" xsi:type="PQ" value="662" /> < interpretationCode codeSystem="local" code="*" /> <referenceRange> <observationRange> <text>15-41</text> </ observationRange> </referenceRange> </observation> </ component> <component> <observation moodCode="EVN" classCode="OBS"> <templateId root="840.1.767234.10.4.2" /> <id nullFlavor="NA" /> <code codeSystem="local" code="BILIT" displayName= "Bilirubin Total" /> <statusCode code="completed" /> < effectiveTime value="889028908828" /> <value unit="mg/dL" xsi:type="PQ " value="1.4" /> <interpretationCode codeSystem="local" code="*" /> <referenceRange> <observationRange> <text>0.2-1.2 </text> </observationRange> </referenceRange> </ observation> </component> <component> <observation moodCode= "EVN" classCode="OBS"> <templateId root="10.29.840.1.738202.10.2022.4.2 " /> <id nullFlavor="NA" /> <code codeSystem="local" code="BUN " displayName="BUN" /> <statusCode code="completed" /> < effectiveTime value="173279467364" /> <value unit="mg/dL" xsi:type="PQ " value="33" /> <interpretationCode codeSystem="local" code="*" /> <referenceRange> <observationRange> <text>4-20</ text> </observationRange> </referenceRange> </ observation> </component> <component> <observation moodCode= "EVN" classCode="OBS"> <templateId root="10.29.840.1.630545.10.2022.4.2 " /> <id nullFlavor="NA" /> <code codeSystem="local" code="CA " displayName="Calcium" /> <statusCode code="completed" /> < effectiveTime value="801099733909" /> <value unit="mg/dL" xsi:type="PQ " value="8.1" /> <interpretationCode codeSystem="local" code="*" /> <referenceRange> <observationRange> <text>8.6- 10.0</text> </observationRange> </referenceRange> </ observation> </component> <component> <observation moodCode= "EVN" classCode="OBS"> <templateId root="840.1.100408.1022.4.2 " /> <id nullFlavor="NA" /> <code codeSystem="local" code="CL " displayName="Chloride" /> <statusCode code="completed" /> < effectiveTime value="232157805563" /> <value unit="mEq/L" xsi:type="PQ " value="99" /> <referenceRange> <observationRange> <text>99-109</text> </observationRange> </ referenceRange> </observation> </component> <component> <observation moodCode="EVN" classCode="OBS"> <templateId root= "10.29.840.1.812687.10.2022.4.2" /> <id nullFlavor="NA" /> < code codeSystem="local" code="CO2" displayName="CO2" /> <statusCode code="completed" /> <effectiveTime value="588696592969" /> < value unit="mEq/L" xsi:type="PQ" value="21" /> <interpretationCode codeSystem="local" code="*" /> <referenceRange> < observationRange> <text>22-32</text> </observationRange > </referenceRange> </observation> </component> < component> <observation moodCode="EVN" classCode="OBS"> < templateId root="2.16.840.1.489454.10..4.2" /> <id nullFlavor="NA " /> <code codeSystem="local" code="CREAT" displayName="Creatinine" /> <statusCode code="completed" /> <effectiveTime value= "742471535354" /> <value unit="mg/dL" xsi:type="PQ" value="1.26" /> <referenceRange> <observationRange> <text>0.64- 1.27</text> </observationRange> </referenceRange> </ observation> </component> <component> <observation moodCode= "EVN" classCode="OBS"> <templateId root="216.840.1.374783.10..4.2 " /> <id nullFlavor="NA" /> <code codeSystem="local" code= "GLOB" displayName="Globulin" /> <statusCode code="completed" /> <effectiveTime value="019058109751" /> <value unit="g/dL" xsi:type= "PQ" value="3.1" /> <referenceRange> <observationRange> <text>1.9-4.3</text> </observationRange> </ referenceRange> </observation> </component> <component> <observation moodCode="EVN" classCode="OBS"> <templateId root= "10.29.840.1.780116.10.20.22.4.2" /> <id nullFlavor="NA" /> < code codeSystem="local" code="GLU" displayName="Glucose" /> < statusCode code="completed" /> <effectiveTime value="" /> <value unit="mg/dL" xsi:type="PQ" value="112" /> < interpretationCode codeSystem="local" code="*" /> <referenceRange> <observationRange> <text>70-100</text> </ observationRange> </referenceRange> </observation> </ component> <component> <observation moodCode="EVN" classCode="OBS"> <templateId root="840.1.448780..22.4.2" /> <id nullFlavor="NA" /> <code codeSystem="local" code="K" displayName= "Potassium" /> <statusCode code="completed" /> <effectiveTime value="" /> <value unit="mEq/L" xsi:type="PQ" value="4.3" / > <referenceRange> <observationRange> <text>3.6 -5.1</text> </observationRange> </referenceRange> </ observation> </component> <component> <observation moodCode= "EVN" classCode="OBS"> <templateId root="840.1.419602.10.20.22.4.2 " /> <id nullFlavor="NA" /> <code codeSystem="local" code="TP " displayName="Protein" /> <statusCode code="completed" /> < effectiveTime value="108620323543" /> <value unit="g/dL" xsi:type="PQ" value="6.1" /> <referenceRange> <observationRange> <text>6.1-7.9</text> </observationRange> </ referenceRange> </observation> </component> <component> <observation moodCode="EVN" classCode="OBS"> <templateId root= "10.29.840.1.654956.102022.4.2" /> <id nullFlavor="NA" /> < code codeSystem="local" code="NA" displayName="Sodium" /> <statusCode code="completed" /> <effectiveTime value="247174035412" /> < value unit="mEq/L" xsi:type="PQ" value="131" /> <interpretationCode codeSystem="local" code="*" /> <referenceRange> < observationRange> <text>136-144</text> </ observationRange> </referenceRange> </observation> </ component> </organizer> </entry> <entry> <organizer moodCode="EVN" classCode="BATTERY"> <templateId root="10.29.840.1.698720.10..22.4.1" /> <id nullFlavor="NA" /> <code codeSystem="local" code="GFR" displayName ="eGFR" /> <statusCode code="completed" /> <component> < observation moodCode="EVN" classCode="OBS"> <templateId root= "10.29.840.1.491175.102022.4.2" /> <id nullFlavor="NA" /> < code codeSystem="local" code="GFR" displayName="eGFR" /> <statusCode code="completed" /> <effectiveTime value="665460596896" /> < value unit="mL/min" xsi:type="PQ" value=">60" /> <referenceRange> <observationRange> <text>>60</text> </ observationRange> </referenceRange> </observation> </ component> </organizer> </entry> <entry> <organizer moodCode="EVN" classCode="BATTERY"> <templateId root="16.840.1.088109.10..4.1" /> <id nullFlavor="NA" /> <code codeSystem="local" code="TSHR" displayName="TSH with Reflex Free T4" /> <statusCode code="completed" /> <component> <observation moodCode="EVN" classCode="OBS"> < templateId root="840.1.037289.07.02.22.4.2" /> <id nullFlavor="NA " /> <code codeSystem="local" code="TSHR" displayName="TSH with Reflex Free T4" /> <statusCode code="completed" /> <effectiveTime value="831191199010" /> <value unit="uIU/mL" xsi:type="PQ" value="3.50 " /> <referenceRange> <observationRange> <text> 0.35-4.94</text> </observationRange> </referenceRange> </observation> </component> </organizer> </entry> <entry> < organizer moodCode="EVN" classCode="BATTERY"> <templateId root= "10.29.840.1.475298.07.02.22.4.1" /> <id nullFlavor="NA" /> <code codeSystem="local" code="BNP" displayName="B-Type Natriuretic Peptide" /> < statusCode code="completed" /> <component> <observation moodCode= "EVN" classCode="OBS"> <templateId root="10.29.840.1.112913.10..22.4.2 " /> <id nullFlavor="NA" /> <code codeSystem="local" code="BNP " displayName="B-Type Natriuretic Peptide" /> <statusCode code= "completed" /> <effectiveTime value="717432717354" /> <value unit="pg/mL" xsi:type="PQ" value="2026" /> <interpretationCode codeSystem="local" code="*" /> <referenceRange> < observationRange> <text>0-99</text> </observationRange> </referenceRange> </observation> </component> </ organizer> </entry> <entry> <organizer moodCode="EVN" classCode="BATTERY"> <templateId root="2.16.840.1.071259.10.20.22.4.1" /> <id nullFlavor= "NA" /> <code codeSystem="local" code="PCT" displayName="Procalcitonin" /> <statusCode code="completed" /> <component> <observation moodCode="EVN" classCode="OBS"> <templateId root= "2.16.840.1.047430.10.20.22.4.2" /> <id nullFlavor="NA" /> < code codeSystem="local" code="PCT" displayName="Procalcitonin" /> < statusCode code="completed" /> <effectiveTime value="959079318919" /> <value unit="ng/mL" xsi:type="PQ" value="0.11" /> < interpretationCode codeSystem="local" code="*" /> <referenceRange> <observationRange> <text>0.00-0.09</text> </ observationRange> </referenceRange> </observation> </ component> </organizer> </entry> <entry> <organizer moodCode="EVN" classCode="BATTERY"> <templateId root="216.840.1.121838.10..22.4.1" /> <id nullFlavor="NA" /> <code codeSystem="local" code="ABGRT" displayName="Blood Gases, Arterial (RT)" /> <statusCode code="completed" / > <component> <observation moodCode="EVN" classCode="OBS"> <templateId root="10.29.840.1.605818.10.20.22.4.2" /> <id nullFlavor="NA " /> <code codeSystem="local" code="YNES" displayName="Arterial Base Excess" /> <statusCode code="completed" /> <effectiveTime value="035528177909" /> <value unit="NA" xsi:type="PQ" value="-2" /> <interpretationCode codeSystem="local" code="*" /> < referenceRange> <observationRange> <text>0-2</text> </observationRange> </referenceRange> </observation> </component> <component> <observation moodCode="EVN" classCode= "OBS"> <templateId root="840.1.198205...4.2" /> < id nullFlavor="NA" /> <code codeSystem="local" code="AHCO3" displayName ="Arterial Bicarbonate" /> <statusCode code="completed" /> < effectiveTime value="089936472528" /> <value unit="mEq/L" xsi:type="PQ " value="22" /> <referenceRange> <observationRange> <text>22-26</text> </observationRange> </ referenceRange> </observation> </component> <component> <observation moodCode="EVN" classCode="OBS"> <templateId root= "10.29.840.1.033541.10.20.22.4.2" /> <id nullFlavor="NA" /> < code codeSystem="local" code="AOSAT" displayName="Arterial O2 Saturation" /> <statusCode code="completed" /> <effectiveTime value= "345464075602" /> <value unit="%" xsi:type="PQ" value="92.4" /> <referenceRange> <observationRange> <text>90.0- 97.0</text> </observationRange> </referenceRange> </ observation> </component> <component> <observation moodCode= "EVN" classCode="OBS"> <templateId root="216.840.1.285672.10..4.2 " /> <id nullFlavor="NA" /> <code codeSystem="local" code= "APCO2" displayName="Arterial PCO2" /> <statusCode code="completed" /> <effectiveTime value="[id number]" /> <value unit="mmHg" xsi :type="PQ" value="33" /> <interpretationCode codeSystem="local" code="* " /> <referenceRange> <observationRange> <text> 35-45</text> </observationRange> </referenceRange> </ observation> </component> <component> <observation moodCode= "EVN" classCode="OBS"> <templateId root="16.840.1.722636.10..4.2 " /> <id nullFlavor="NA" /> <code codeSystem="local" code="APH " displayName="Arterial PH" /> <statusCode code="completed" /> <effectiveTime value="349723523002" /> <value unit="NA" xsi:type="PQ " value="7.44" /> <referenceRange> <observationRange> <text>7.35-7.45</text> </observationRange> </ referenceRange> </observation> </component> <component> <observation moodCode="EVN" classCode="OBS"> <templateId root= "16.840.1.185936.07.02.22.4.2" /> <id nullFlavor="NA" /> < code codeSystem="local" code="APO2" displayName="Arterial PO2" /> < statusCode code="completed" /> <effectiveTime value="[id number]" /> <value unit="mmHg" xsi:type="PQ" value="63" /> < interpretationCode codeSystem="local" code="*" /> <referenceRange> <observationRange> <text>80-100</text> </ observationRange> </referenceRange> </observation> </ component> </organizer> </entry> <entry> <organizer moodCode="EVN" classCode="BATTERY"> <templateId root="216.840.1.716940.10..4.1" /> <id nullFlavor="NA" /> <code codeSystem="local" code="GLUN" displayName="Glucose NPT" /> <statusCode code="completed" /> < component> <observation moodCode="EVN" classCode="OBS"> < templateId root="2.16.840.1.321643.10..22.4.2" /> <id nullFlavor="NA " /> <code codeSystem="local" code="GLUN" displayName="Glucose NPT" / > <statusCode code="completed" /> <effectiveTime value= "155010314179" /> <value unit="mg/dL" xsi:type="PQ" value="125" /> <interpretationCode codeSystem="local" code="*" /> < referenceRange> <observationRange> <text>70-100</text> </observationRange> </referenceRange> </observation> </component> </organizer> </entry> <entry> <organizer moodCode= "EVN" classCode="BATTERY"> <templateId root="2.16.840.1.490895.22.4.1 " /> <id nullFlavor="NA" /> <code codeSystem="local" code="CBCWD" displayName="CBC With Platelet and Differential" /> <statusCode code= "completed" /> <component> <observation moodCode="EVN" classCode= "OBS"> <templateId root="216.840.1.048253.07.02.22.4.2" /> < id nullFlavor="NA" /> <code codeSystem="local" code="HCT" displayName= "HCT" /> <statusCode code="completed" /> <effectiveTime value= "204269414849" /> <value unit="%" xsi:type="PQ" value="34.3" /> <interpretationCode codeSystem="local" code="*" /> < referenceRange> <observationRange> <text>42.0-52.0</text > </observationRange> </referenceRange> </observation > </component> <component> <observation moodCode="EVN" classCode="OBS"> <templateId root="216.840.1.706362.07.02.22.4.2" /> <id nullFlavor="NA" /> <code codeSystem="local" code="HGB" displayName="HGB" /> <statusCode code="completed" /> < effectiveTime value="200072782767" /> <value unit="g/dL" xsi:type="PQ" value="11.1" /> <interpretationCode codeSystem="local" code="*" /> <referenceRange> <observationRange> <text>14.0- 18.0</text> </observationRange> </referenceRange> </ observation> </component> <component> <observation moodCode= "EVN" classCode="OBS"> <templateId root="216.840.1.862060.07.02.22.4.2 " /> <id nullFlavor="NA" /> <code codeSystem="local" code="MCH " displayName="MCH" /> <statusCode code="completed" /> < effectiveTime value="" /> <value unit="pg" xsi:type="PQ" value="28.8" /> <referenceRange> <observationRange> <text>27.0-32.0</text> </observationRange> </ referenceRange> </observation> </component> <component> <observation moodCode="EVN" classCode="OBS"> <templateId root= "2.16.840.1.521303.07.02.224.2" /> <id nullFlavor="NA" /> < code codeSystem="local" code="MCHC" displayName="MCHC" /> <statusCode code="completed" /> <effectiveTime value="" /> < value unit="g/dL" xsi:type="PQ" value="32.4" /> <referenceRange> <observationRange> <text>32.0-36.0</text> </ observationRange> </referenceRange> </observation> </ component> <component> <observation moodCode="EVN" classCode="OBS"> <templateId root="216.840.1.933686.07.02.22.4.2" /> <id nullFlavor="NA" /> <code codeSystem="local" code="MCV" displayName="MCV " /> <statusCode code="completed" /> <effectiveTime value= "" /> <value unit="fL" xsi:type="PQ" value="89.1" /> <referenceRange> <observationRange> <text>82.0-99.0< /text> </observationRange> </referenceRange> </ observation> </component> <component> <observation moodCode= "EVN" classCode="OBS"> <templateId root="10.29.840.1.312522.10.4.2 " /> <id nullFlavor="NA" /> <code codeSystem="local" code="MPV " displayName="MPV" /> <statusCode code="completed" /> < effectiveTime value="" /> <value unit="fL" xsi:type="PQ" value="11.8" /> <referenceRange> <observationRange> <text>9.4-12.3</text> </observationRange> </ referenceRange> </observation> </component> <component> <observation moodCode="EVN" classCode="OBS"> <templateId root= "10.29.840.1.898473.07.02.22.4.2" /> <id nullFlavor="NA" /> < code codeSystem="local" code="PLT" displayName="Platelet Count" /> < statusCode code="completed" /> <effectiveTime value="" /> <value unit="K/uL" xsi:type="PQ" value="180" /> < referenceRange> <observationRange> <text>150-400</text> </observationRange> </referenceRange> </observation > </component> <component> <observation moodCode="EVN" classCode="OBS"> <templateId root="10.29.840.1.613166.1022.4.2" /> <id nullFlavor="NA" /> <code codeSystem="local" code="RBC" displayName="RBC" /> <statusCode code="completed" /> < effectiveTime value="" /> <value unit="10*6/uL" xsi:type= "PQ" value="3.85" /> <interpretationCode codeSystem="local" code="*" / > <referenceRange> <observationRange> <text> 4.60-6.20</text> </observationRange> </referenceRange> </observation> </component> <component> <observation moodCode="EVN" classCode="OBS"> <templateId root= "216.840.1.801860.10..22.4.2" /> <id nullFlavor="NA" /> < code codeSystem="local" code="RDW" displayName="RDW" /> <statusCode code="completed" /> <effectiveTime value="029656027262" /> < value unit="%" xsi:type="PQ" value="16.0" /> <interpretationCode codeSystem="local" code="*" /> <referenceRange> < observationRange> <text>11.5-14.5</text> </ observationRange> </referenceRange> </observation> </ component> <component> <observation moodCode="EVN" classCode="OBS"> <templateId root="10.29.840.1.478507.07.02.22.4.2" /> <id nullFlavor="NA" /> <code codeSystem="local" code="WBCIR" displayName= "WBC" /> <statusCode code="completed" /> <effectiveTime value= "825011927958" /> <value unit="K/uL" xsi:type="PQ" value="9.8" /> <referenceRange> <observationRange> <text>4.8-10.8< /text> </observationRange> </referenceRange> </ observation> </component> </organizer> </entry> <entry> <organizer moodCode="EVN" classCode="BATTERY"> <templateId root= "216.840.1.402941.10..22.4.1" /> <id nullFlavor="NA" /> <code codeSystem="local" code="PT" displayName="Protime (INR)" /> <statusCode code="completed" /> <component> <observation moodCode="EVN" classCode="OBS"> <templateId root="16.840.1.121030.10.4.2" /> <id nullFlavor="NA" /> <code codeSystem="local" code="INR" displayName="INR" /> <statusCode code="completed" /> < effectiveTime value="" /> <value unit="NA" xsi:type="PQ" value="1.0" /> <referenceRange> <observationRange> <text>0.9-1.2</text> </observationRange> </ referenceRange> </observation> </component> </organizer> </entry > <entry> <organizer moodCode="EVN" classCode="BATTERY"> <templateId root="10.29.840.1.005275.07.02.22.4.1" /> <id nullFlavor="NA" /> <code codeSystem="local" code="PTT" displayName="PTT" /> <statusCode code= "completed" /> <component> <observation moodCode="EVN" classCode= "OBS"> <templateId root="10.29.840.1.380362.10.4.2" /> < id nullFlavor="NA" /> <code codeSystem="local" code="PTT" displayName= "PTT" /> <statusCode code="completed" /> <effectiveTime value= "" /> <value unit="seconds" xsi:type="PQ" value="52.5" /> <interpretationCode codeSystem="local" code="*" /> < referenceRange> <observationRange> <text>25.0-35.0</text > </observationRange> </referenceRange> </observation > </component> </organizer> </entry> <entry> <organizer moodCode= "EVN" classCode="BATTERY"> <templateId root="16.840.1.069410.10..4.1 " /> <id nullFlavor="NA" /> <code codeSystem="local" code="CMP" displayName="Comprehensive Metabolic Panel (CMP)" /> <statusCode code= "completed" /> <component> <observation moodCode="EVN" classCode= "OBS"> <templateId root="10.29.840.1.697419.10..4.2" /> < id nullFlavor="NA" /> <code codeSystem="local" code="ALB" displayName= "Albumin" /> <statusCode code="completed" /> <effectiveTime value="" /> <value unit="g/dL" xsi:type="PQ" value="2.9" / > <interpretationCode codeSystem="local" code="*" /> < referenceRange> <observationRange> <text>3.5-4.8</text> </observationRange> </referenceRange> </observation > </component> <component> <observation moodCode="EVN" classCode="OBS"> <templateId root="10.29.840.1.223504.07.02.22.4.2" /> <id nullFlavor="NA" /> <code codeSystem="local" code="ALP" displayName="Alkaline Phosphatase" /> <statusCode code="completed" /> <effectiveTime value="" /> <value unit="U/L" xsi: type="PQ" value="112" /> <interpretationCode codeSystem="local" code="* " /> <referenceRange> <observationRange> <text> 26-104</text> </observationRange> </referenceRange> < /observation> </component> <component> <observation moodCode= "EVN" classCode="OBS"> <templateId root="216.840.1.373700.10..4.2 " /> <id nullFlavor="NA" /> <code codeSystem="local" code="ALT " displayName="ALT (SGPT)" /> <statusCode code="completed" /> <effectiveTime value="" /> <value unit="U/L" xsi:type="PQ" value="681" /> <interpretationCode codeSystem="local" code="*" /> <referenceRange> <observationRange> <text>17-63</ text> </observationRange> </referenceRange> </ observation> </component> <component> <observation moodCode= "EVN" classCode="OBS"> <templateId root="10.29.840.1.936299.10.4.2 " /> <id nullFlavor="NA" /> <code codeSystem="local" code= "AGAP" displayName="Anion Gap" /> <statusCode code="completed" /> <effectiveTime value="" /> <value unit="mEq/L" xsi: type="PQ" value="10" /> <referenceRange> <observationRange> <text>3-20</text> </observationRange> </ referenceRange> </observation> </component> <component> <observation moodCode="EVN" classCode="OBS"> <templateId root= "216.840.1.952869.10..4.2" /> <id nullFlavor="NA" /> < code codeSystem="local" code="AST" displayName="AST (SGOT)" /> < statusCode code="completed" /> <effectiveTime value="" /> <value unit="U/L" xsi:type="PQ" value="401" /> < interpretationCode codeSystem="local" code="*" /> <referenceRange> <observationRange> <text>15-41</text> </ observationRange> </referenceRange> </observation> </ component> <component> <observation moodCode="EVN" classCode="OBS"> <templateId root="16.840.1.954525.07.02.22.4.2" /> <id nullFlavor="NA" /> <code codeSystem="local" code="BILIT" displayName= "Bilirubin Total" /> <statusCode code="completed" /> < effectiveTime value="" /> <value unit="mg/dL" xsi:type="PQ " value="1.6" /> <interpretationCode codeSystem="local" code="*" /> <referenceRange> <observationRange> <text>0.2-1.2 </text> </observationRange> </referenceRange> </ observation> </component> <component> <observation moodCode= "EVN" classCode="OBS"> <templateId root="16.840.1.730906.10..4.2 " /> <id nullFlavor="NA" /> <code codeSystem="local" code="BUN " displayName="BUN" /> <statusCode code="completed" /> < effectiveTime value="" /> <value unit="mg/dL" xsi:type="PQ " value="29" /> <interpretationCode codeSystem="local" code="*" /> <referenceRange> <observationRange> <text>4-20</ text> </observationRange> </referenceRange> </ observation> </component> <component> <observation moodCode= "EVN" classCode="OBS"> <templateId root="16.840.1.139686.10.20.22.4.2 " /> <id nullFlavor="NA" /> <code codeSystem="local" code="CA " displayName="Calcium" /> <statusCode code="completed" /> < effectiveTime value="" /> <value unit="mg/dL" xsi:type="PQ " value="8.1" /> <interpretationCode codeSystem="local" code="*" /> <referenceRange> <observationRange> <text>8.6- 10.0</text> </observationRange> </referenceRange> </ observation> </component> <component> <observation moodCode= "EVN" classCode="OBS"> <templateId root="10.29.840.1.768481.10.22.4.2 " /> <id nullFlavor="NA" /> <code codeSystem="local" code="CL " displayName="Chloride" /> <statusCode code="completed" /> < effectiveTime value="" /> <value unit="mEq/L" xsi:type="PQ " value="97" /> <interpretationCode codeSystem="local" code="*" /> <referenceRange> <observationRange> <text>99-109</ text> </observationRange> </referenceRange> </ observation> </component> <component> <observation moodCode= "EVN" classCode="OBS"> <templateId root="10.29.840.1.641834.10.20.22.4.2 " /> <id nullFlavor="NA" /> <code codeSystem="local" code="CO2 " displayName="CO2" /> <statusCode code="completed" /> < effectiveTime value="" /> <value unit="mEq/L" xsi:type="PQ " value="26" /> <referenceRange> <observationRange> <text>22-32</text> </observationRange> </ referenceRange> </observation> </component> <component> <observation moodCode="EVN" classCode="OBS"> <templateId root= "16.840.1.787014.10...4.2" /> <id nullFlavor="NA" /> < code codeSystem="local" code="CREAT" displayName="Creatinine" /> < statusCode code="completed" /> <effectiveTime value="" /> <value unit="mg/dL" xsi:type="PQ" value="1.24" /> < referenceRange> <observationRange> <text>0.64-1.27</text > </observationRange> </referenceRange> </observation > </component> <component> <observation moodCode="EVN" classCode="OBS"> <templateId root="10.29.840.1.905536.10.4.2" /> <id nullFlavor="NA" /> <code codeSystem="local" code="GLOB" displayName="Globulin" /> <statusCode code="completed" /> < effectiveTime value="" /> <value unit="g/dL" xsi:type="PQ" value="3.1" /> <referenceRange> <observationRange> <text>1.9-4.3</text> </observationRange> </ referenceRange> </observation> </component> <component> <observation moodCode="EVN" classCode="OBS"> <templateId root= "10.29.840.1.029278.10..4.2" /> <id nullFlavor="NA" /> < code codeSystem="local" code="GLU" displayName="Glucose" /> < statusCode code="completed" /> <effectiveTime value="" /> <value unit="mg/dL" xsi:type="PQ" value="97" /> < referenceRange> <observationRange> <text>70-100</text> </observationRange> </referenceRange> </observation> </component> <component> <observation moodCode="EVN" classCode ="OBS"> <templateId root="10.29.840.1.724485.22.4.2" /> < id nullFlavor="NA" /> <code codeSystem="local" code="K" displayName= "Potassium" /> <statusCode code="completed" /> <effectiveTime value="" /> <value unit="mEq/L" xsi:type="PQ" value="4.1" / > <referenceRange> <observationRange> <text>3.6 -5.1</text> </observationRange> </referenceRange> </ observation> </component> <component> <observation moodCode= "EVN" classCode="OBS"> <templateId root="10.29.840.1.539699.22.4.2 " /> <id nullFlavor="NA" /> <code codeSystem="local" code="TP " displayName="Protein" /> <statusCode code="completed" /> < effectiveTime value="" /> <value unit="g/dL" xsi:type="PQ" value="6.0" /> <interpretationCode codeSystem="local" code="*" /> <referenceRange> <observationRange> <text>6.1-7.9</ text> </observationRange> </referenceRange> </ observation> </component> <component> <observation moodCode= "EVN" classCode="OBS"> <templateId root="10.29.840.1.863430.07.02.22.4.2 " /> <id nullFlavor="NA" /> <code codeSystem="local" code="NA " displayName="Sodium" /> <statusCode code="completed" /> < effectiveTime value="" /> <value unit="mEq/L" xsi:type="PQ " value="133" /> <interpretationCode codeSystem="local" code="*" /> <referenceRange> <observationRange> <text>136-144 </text> </observationRange> </referenceRange> </ observation> </component> </organizer> </entry> <entry> <organizer moodCode="EVN" classCode="BATTERY"> <templateId root= "16.840.1.007907.07.02.22.4.1" /> <id nullFlavor="NA" /> <code codeSystem="local" code="MG" displayName="Magnesium" /> <statusCode code= "completed" /> <component> <observation moodCode="EVN" classCode= "OBS"> <templateId root="216.840.1.457413.07.02.22.4.2" /> < id nullFlavor="NA" /> <code codeSystem="local" code="MG" displayName= "Magnesium" /> <statusCode code="completed" /> <effectiveTime value="049867824942" /> <value unit="mg/dL" xsi:type="PQ" value="2.2" / > <referenceRange> <observationRange> <text>1.8 -2.5</text> </observationRange> </referenceRange> </ observation> </component> </organizer> </entry> <entry> <organizer moodCode="EVN" classCode="BATTERY"> <templateId root= "216.840.1.809688.07.02.22.4.1" /> <id nullFlavor="NA" /> <code codeSystem="local" code="PHOS" displayName="Phosphorus" /> <statusCode code ="completed" /> <component> <observation moodCode="EVN" classCode= "OBS"> <templateId root="16.840.1.533318.10.20.22.4.2" /> < id nullFlavor="NA" /> <code codeSystem="local" code="PHOS" displayName= "Phosphorus" /> <statusCode code="completed" /> < effectiveTime value="" /> <value unit="mg/dL" xsi:type="PQ " value="2.7" /> <referenceRange> <observationRange> <text>2.4-4.7</text> </observationRange> </ referenceRange> </observation> </component> </organizer> </entry > <entry> <organizer moodCode="EVN" classCode="BATTERY"> <templateId root="10.29.840.1.571946.10..22.4.1" /> <id nullFlavor="NA" /> <code codeSystem="local" code="GFR" displayName="eGFR" /> <statusCode code= "completed" /> <component> <observation moodCode="EVN" classCode= "OBS"> <templateId root="10.29.840.1.082675.10..22.4.2" /> < id nullFlavor="NA" /> <code codeSystem="local" code="GFR" displayName= "eGFR" /> <statusCode code="completed" /> <effectiveTime value ="" /> <value unit="mL/min" xsi:type="PQ" value=">60" / > <referenceRange> <observationRange> <text>&gt ;60</text> </observationRange> </referenceRange> </ observation> </component> </organizer> </entry> <entry> <organizer moodCode="EVN" classCode="BATTERY"> <templateId root= "10.29.840.1.795768.07.02.22.4.1" /> <id nullFlavor="NA" /> <code codeSystem="local" code="AMMOV" displayName="Ammonia" /> <statusCode code= "completed" /> <component> <observation moodCode="EVN" classCode= "OBS"> <templateId root="840.1.457277.07.02.224.2" /> < id nullFlavor="NA" /> <code codeSystem="local" code="AMMOV" displayName ="Ammonia" /> <statusCode code="completed" /> <effectiveTime value="068082904869" /> <value unit="umol/L" xsi:type="PQ" value="24" / > <referenceRange> <observationRange> <text>9- 35</text> </observationRange> </referenceRange> </ observation> </component> </organizer> </entry> <entry> <organizer moodCode="EVN" classCode="BATTERY"> <templateId root= "10.29.840.1.397776.07.02.22.4.1" /> <id nullFlavor="NA" /> <code codeSystem="local" code="PTT" displayName="PTT" /> <statusCode code= "completed" /> <component> <observation moodCode="EVN" classCode= "OBS"> <templateId root="10.29.840.1.396478.07.02.22.4.2" /> < id nullFlavor="NA" /> <code codeSystem="local" code="PTT" displayName= "PTT" /> <statusCode code="completed" /> <effectiveTime value= "031532404495" /> <value unit="seconds" xsi:type="PQ" value="27.2" /> <referenceRange> <observationRange> <text>25.0- 35.0</text> </observationRange> </referenceRange> </ observation> </component> </organizer> </entry> <entry> <organizer moodCode="EVN" classCode="BATTERY"> <templateId root= "16.840.1.699992.10..4.1" /> <id nullFlavor="NA" /> <code codeSystem="local" code="GLUN" displayName="Glucose NPT" /> <statusCode code="completed" /> <component> <observation moodCode="EVN" classCode="OBS"> <templateId root="216.840.1.735075.10..4.2" /> <id nullFlavor="NA" /> <code codeSystem="local" code="GLUN" displayName="Glucose NPT" /> <statusCode code="completed" /> <effectiveTime value="259815506669" /> <value unit="mg/dL" xsi:type="PQ " value="66" /> <interpretationCode codeSystem="local" code="*" /> <referenceRange> <observationRange> <text>70-100</ text> </observationRange> </referenceRange> </ observation> </component> </organizer> </entry> <entry> <organizer moodCode="EVN" classCode="BATTERY"> <templateId root= "16.840.1.905086.10..4.1" /> <id nullFlavor="NA" /> <code codeSystem="local" code="GLUN" displayName="Glucose NPT" /> <statusCode code="completed" /> <component> <observation moodCode="EVN" classCode="OBS"> <templateId root="2.16.840.1.415294.10.20.22.4.2" /> <id nullFlavor="NA" /> <code codeSystem="local" code="GLUN" displayName="Glucose NPT" /> <statusCode code="completed" /> <effectiveTime value="444540098034" /> <value unit="mg/dL" xsi:type="PQ " value="118" /> <interpretationCode codeSystem="local" code="*" /> <referenceRange> <observationRange> <text>70-100< /text> </observationRange> </referenceRange> </ observation> </component> </organizer> </entry> <entry> <organizer moodCode="EVN" classCode="BATTERY"> <templateId root= "2.16.840.1.220951.10.20.22.4.1" /> <id nullFlavor="NA" /> <code codeSystem="local" code="GLUN" displayName="Glucose NPT" /> <statusCode code="completed" /> <component> <observation moodCode="EVN" classCode="OBS"> <templateId root="2.16.840.1.721377.10.20.22.4.2" /> <id nullFlavor="NA" /> <code codeSystem="local" code="GLUN" displayName="Glucose NPT" /> <statusCode code="completed" /> <effectiveTime value="149473050593" /> <value unit="mg/dL" xsi:type="PQ " value="170" /> <interpretationCode codeSystem="local" code="*" /> <referenceRange> <observationRange> <text>70-100< /text> </observationRange> </referenceRange> </ observation> </component> </organizer> </entry> <entry> <organizer moodCode="EVN" classCode="BATTERY"> <templateId root= "16.840.1.087854.10..22.4.1" /> <id nullFlavor="NA" /> <code codeSystem="local" code="CBCND" displayName="CBC With Platelet No Differential" /> <statusCode code="completed" /> <component> <observation moodCode="EVN" classCode="OBS"> <templateId root= "10.29.840.1.677019.10..4.2" /> <id nullFlavor="NA" /> < code codeSystem="local" code="HCT" displayName="HCT" /> <statusCode code="completed" /> <effectiveTime value="939499803719" /> < value unit="%" xsi:type="PQ" value="34.3" /> <interpretationCode codeSystem="local" code="*" /> <referenceRange> < observationRange> <text>42.0-52.0</text> </ observationRange> </referenceRange> </observation> </ component> <component> <observation moodCode="EVN" classCode="OBS"> <templateId root="16.840.1.396233.10...4.2" /> <id nullFlavor="NA" /> <code codeSystem="local" code="HGB" displayName="HGB " /> <statusCode code="completed" /> <effectiveTime value= "119412945770" /> <value unit="g/dL" xsi:type="PQ" value="11.0" /> <interpretationCode codeSystem="local" code="*" /> < referenceRange> <observationRange> <text>14.0-18.0</text > </observationRange> </referenceRange> </observation > </component> <component> <observation moodCode="EVN" classCode="OBS"> <templateId root="216.840.1.339480.10.20.22.4.2" /> <id nullFlavor="NA" /> <code codeSystem="local" code="MCH" displayName="MCH" /> <statusCode code="completed" /> < effectiveTime value="244799476768" /> <value unit="pg" xsi:type="PQ" value="28.9" /> <referenceRange> <observationRange> <text>27.0-32.0</text> </observationRange> </ referenceRange> </observation> </component> <component> <observation moodCode="EVN" classCode="OBS"> <templateId root= "16.840.1.521277.10.22.4.2" /> <id nullFlavor="NA" /> < code codeSystem="local" code="MCHC" displayName="MCHC" /> <statusCode code="completed" /> <effectiveTime value="609445843085" /> < value unit="g/dL" xsi:type="PQ" value="32.1" /> <referenceRange> <observationRange> <text>32.0-36.0</text> </ observationRange> </referenceRange> </observation> </ component> <component> <observation moodCode="EVN" classCode="OBS"> <templateId root="10.29.840.1.614562.10.20.22.4.2" /> <id nullFlavor="NA" /> <code codeSystem="local" code="MCV" displayName="MCV " /> <statusCode code="completed" /> <effectiveTime value= "546039935577" /> <value unit="fL" xsi:type="PQ" value="90.0" /> <referenceRange> <observationRange> <text>82.0-99.0< /text> </observationRange> </referenceRange> </ observation> </component> <component> <observation moodCode= "EVN" classCode="OBS"> <templateId root="216.840.1.628138.10.4.2 " /> <id nullFlavor="NA" /> <code codeSystem="local" code="MPV " displayName="MPV" /> <statusCode code="completed" /> < effectiveTime value="" /> <value unit="fL" xsi:type="PQ" value="11.5" /> <referenceRange> <observationRange> <text>9.4-12.3</text> </observationRange> </ referenceRange> </observation> </component> <component> <observation moodCode="EVN" classCode="OBS"> <templateId root= "10.29.840.1.031683.07.02.22.4.2" /> <id nullFlavor="NA" /> < code codeSystem="local" code="PLT" displayName="Platelet Count" /> < statusCode code="completed" /> <effectiveTime value="" /> <value unit="K/uL" xsi:type="PQ" value="165" /> < referenceRange> <observationRange> <text>150-400</text> </observationRange> </referenceRange> </observation > </component> <component> <observation moodCode="EVN" classCode="OBS"> <templateId root="16.840.1.633317.10.4.2" /> <id nullFlavor="NA" /> <code codeSystem="local" code="RBC" displayName="RBC" /> <statusCode code="completed" /> < effectiveTime value="" /> <value unit="10*6/uL" xsi:type= "PQ" value="3.81" /> <interpretationCode codeSystem="local" code="*" / > <referenceRange> <observationRange> <text> 4.60-6.20</text> </observationRange> </referenceRange> </observation> </component> <component> <observation moodCode="EVN" classCode="OBS"> <templateId root= "216.840.1.117788.1020.22.4.2" /> <id nullFlavor="NA" /> < code codeSystem="local" code="RDW" displayName="RDW" /> <statusCode code="completed" /> <effectiveTime value="205861405312" /> < value unit="%" xsi:type="PQ" value="16.1" /> <interpretationCode codeSystem="local" code="*" /> <referenceRange> < observationRange> <text>11.5-14.5</text> </ observationRange> </referenceRange> </observation> </ component> <component> <observation moodCode="EVN" classCode="OBS"> <templateId root="216.840.1.641713.22.4.2" /> <id nullFlavor="NA" /> <code codeSystem="local" code="WBCIR" displayName= "WBC" /> <statusCode code="completed" /> <effectiveTime value= "515553065456" /> <value unit="K/uL" xsi:type="PQ" value="9.1" /> <referenceRange> <observationRange> <text>4.8-10.8< /text> </observationRange> </referenceRange> </ observation> </component> </organizer> </entry> <entry> <organizer moodCode="EVN" classCode="BATTERY"> <templateId root= "10.29.840.1.620207.10..22.4.1" /> <id nullFlavor="NA" /> <code codeSystem="local" code="MG" displayName="Magnesium" /> <statusCode code= "completed" /> <component> <observation moodCode="EVN" classCode= "OBS"> <templateId root="10.29.840.1.643012.07.02.22.4.2" /> < id nullFlavor="NA" /> <code codeSystem="local" code="MG" displayName= "Magnesium" /> <statusCode code="completed" /> <effectiveTime value="" /> <value unit="mg/dL" xsi:type="PQ" value="2.0" / > <referenceRange> <observationRange> <text>1.8 -2.5</text> </observationRange> </referenceRange> </ observation> </component> </organizer> </entry> <entry> <organizer moodCode="EVN" classCode="BATTERY"> <templateId root= "10.29.840.1.726168.07.02.22.4.1" /> <id nullFlavor="NA" /> <code codeSystem="local" code="RENAL" displayName="Renal Function Panel" /> < statusCode code="completed" /> <component> <observation moodCode= "EVN" classCode="OBS"> <templateId root="10.29.840.1.804018.07.02.22.4.2 " /> <id nullFlavor="NA" /> <code codeSystem="local" code="ALB " displayName="Albumin" /> <statusCode code="completed" /> < effectiveTime value="" /> <value unit="g/dL" xsi:type="PQ" value="2.8" /> <interpretationCode codeSystem="local" code="*" /> <referenceRange> <observationRange> <text>3.5-4.8</ text> </observationRange> </referenceRange> </ observation> </component> <component> <observation moodCode= "EVN" classCode="OBS"> <templateId root="10.29.840.1.524977.10.20.22.4.2 " /> <id nullFlavor="NA" /> <code codeSystem="local" code= "AGAP" displayName="Anion Gap" /> <statusCode code="completed" /> <effectiveTime value="" /> <value unit="mEq/L" xsi: type="PQ" value="9" /> <referenceRange> <observationRange> <text>3-20</text> </observationRange> </ referenceRange> </observation> </component> <component> <observation moodCode="EVN" classCode="OBS"> <templateId root= "10.29.840.1.542457.10..4.2" /> <id nullFlavor="NA" /> < code codeSystem="local" code="BUN" displayName="BUN" /> <statusCode code="completed" /> <effectiveTime value="864631150212" /> < value unit="mg/dL" xsi:type="PQ" value="23" /> <interpretationCode codeSystem="local" code="*" /> <referenceRange> < observationRange> <text>4-20</text> </observationRange> </referenceRange> </observation> </component> < component> <observation moodCode="EVN" classCode="OBS"> < templateId root="10.29.840.1.598496.10.20.22.4.2" /> <id nullFlavor="NA " /> <code codeSystem="local" code="CA" displayName="Calcium" /> <statusCode code="completed" /> <effectiveTime value="694154161345 " /> <value unit="mg/dL" xsi:type="PQ" value="7.7" /> < interpretationCode codeSystem="local" code="*" /> <referenceRange> <observationRange> <text>8.6-10.0</text> </ observationRange> </referenceRange> </observation> </ component> <component> <observation moodCode="EVN" classCode="OBS"> <templateId root="16.840.1.975681.10..22.4.2" /> <id nullFlavor="NA" /> <code codeSystem="local" code="CL" displayName= "Chloride" /> <statusCode code="completed" /> <effectiveTime value="609063601617" /> <value unit="mEq/L" xsi:type="PQ" value="99" / > <referenceRange> <observationRange> <text>99- 109</text> </observationRange> </referenceRange> </ observation> </component> <component> <observation moodCode= "EVN" classCode="OBS"> <templateId root="16.840.1.057548..20.22.4.2 " /> <id nullFlavor="NA" /> <code codeSystem="local" code="CO2 " displayName="CO2" /> <statusCode code="completed" /> < effectiveTime value="075373908354" /> <value unit="mEq/L" xsi:type="PQ " value="26" /> <referenceRange> <observationRange> <text>22-32</text> </observationRange> </ referenceRange> </observation> </component> <component> <observation moodCode="EVN" classCode="OBS"> <templateId root= "10.29.840.1.738828.20.22.4.2" /> <id nullFlavor="NA" /> < code codeSystem="local" code="CREAT" displayName="Creatinine" /> < statusCode code="completed" /> <effectiveTime value="447292481864" /> <value unit="mg/dL" xsi:type="PQ" value="1.40" /> < interpretationCode codeSystem="local" code="*" /> <referenceRange> <observationRange> <text>0.64-1.27</text> </ observationRange> </referenceRange> </observation> </ component> <component> <observation moodCode="EVN" classCode="OBS"> <templateId root="16.840.1.065226.10..4.2" /> <id nullFlavor="NA" /> <code codeSystem="local" code="GLU" displayName= "Glucose" /> <statusCode code="completed" /> <effectiveTime value="634416556487" /> <value unit="mg/dL" xsi:type="PQ" value="127" / > <interpretationCode codeSystem="local" code="*" /> < referenceRange> <observationRange> <text>70-100</text> </observationRange> </referenceRange> </observation> </component> <component> <observation moodCode="EVN" classCode ="OBS"> <templateId root="10.29.840.1.474871.10..4.2" /> < id nullFlavor="NA" /> <code codeSystem="local" code="PHOS" displayName= "Phosphorus" /> <statusCode code="completed" /> < effectiveTime value="449965269927" /> <value unit="mg/dL" xsi:type="PQ " value="2.7" /> <referenceRange> <observationRange> <text>2.4-4.7</text> </observationRange> </ referenceRange> </observation> </component> <component> <observation moodCode="EVN" classCode="OBS"> <templateId root= "10.29.840.1.656838.10..22.4.2" /> <id nullFlavor="NA" /> < code codeSystem="local" code="K" displayName="Potassium" /> < statusCode code="completed" /> <effectiveTime value="795065238897" /> <value unit="mEq/L" xsi:type="PQ" value="3.5" /> < interpretationCode codeSystem="local" code="*" /> <referenceRange> <observationRange> <text>3.6-5.1</text> </ observationRange> </referenceRange> </observation> </ component> <component> <observation moodCode="EVN" classCode="OBS"> <templateId root="10.29.840.1.978845.10..22.4.2" /> <id nullFlavor="NA" /> <code codeSystem="local" code="NA" displayName= "Sodium" /> <statusCode code="completed" /> <effectiveTime value="456324826950" /> <value unit="mEq/L" xsi:type="PQ" value="134" / > <interpretationCode codeSystem="local" code="*" /> < referenceRange> <observationRange> <text>136-144</text> </observationRange> </referenceRange> </observation > </component> </organizer> </entry> <entry> <organizer moodCode= "EVN" classCode="BATTERY"> <templateId root="10.29.840.1.131254.10..22.4.1 " /> <id nullFlavor="NA" /> <code codeSystem="local" code="GFR" displayName="eGFR" /> <statusCode code="completed" /> <component> <observation moodCode="EVN" classCode="OBS"> <templateId root= "16.840.1.183567.07.02.22.4.2" /> <id nullFlavor="NA" /> < code codeSystem="local" code="GFR" displayName="eGFR" /> <statusCode code="completed" /> <effectiveTime value="959830368585" /> < value unit="mL/min" xsi:type="PQ" value="54" /> <interpretationCode codeSystem="local" code="*" /> <referenceRange> < observationRange> <text>>60</text> </observationRange > </referenceRange> </observation> </component> </ organizer> </entry> <entry> <organizer moodCode="EVN" classCode="BATTERY"> <templateId root="10.29.840.1.535109.07.02.22.4.1" /> <id nullFlavor= "NA" /> <code codeSystem="local" code="GLUN" displayName="Glucose NPT" /> <statusCode code="completed" /> <component> <observation moodCode="EVN" classCode="OBS"> <templateId root= "10.29.840.1.593333.07.02.22.4.2" /> <id nullFlavor="NA" /> < code codeSystem="local" code="GLUN" displayName="Glucose NPT" /> < statusCode code="completed" /> <effectiveTime value="365119372859" /> <value unit="mg/dL" xsi:type="PQ" value="142" /> < interpretationCode codeSystem="local" code="*" /> <referenceRange> <observationRange> <text>70-100</text> </ observationRange> </referenceRange> </observation> </ component> </organizer> </entry> <entry> <organizer moodCode="EVN" classCode="BATTERY"> <templateId root="840.1.210387.07.02.22.4.1" /> <id nullFlavor="NA" /> <code codeSystem="local" code="GLUN" displayName="Glucose NPT" /> <statusCode code="completed" /> < component> <observation moodCode="EVN" classCode="OBS"> < templateId root="840.1.122083.07.02.224.2" /> <id nullFlavor="NA " /> <code codeSystem="local" code="GLUN" displayName="Glucose NPT" / > <statusCode code="completed" /> <effectiveTime value= "022198139101" /> <value unit="mg/dL" xsi:type="PQ" value="131" /> <interpretationCode codeSystem="local" code="*" /> < referenceRange> <observationRange> <text>70-100</text> </observationRange> </referenceRange> </observation> </component> </organizer> </entry> <entry> <organizer moodCode= "EVN" classCode="BATTERY"> <templateId root="840.1.355941.07.02.22.4.1 " /> <id nullFlavor="NA" /> <code codeSystem="local" code="GLUN" displayName="Glucose NPT" /> <statusCode code="completed" /> < component> <observation moodCode="EVN" classCode="OBS"> < templateId root="840.1.541141.07.02.22.4.2" /> <id nullFlavor="NA " /> <code codeSystem="local" code="GLUN" displayName="Glucose NPT" / > <statusCode code="completed" /> <effectiveTime value= "833318118227" /> <value unit="mg/dL" xsi:type="PQ" value="183" /> <interpretationCode codeSystem="local" code="*" /> < referenceRange> <observationRange> <text>70-100</text> </observationRange> </referenceRange> </observation> </component> </organizer> </entry> <entry> <organizer moodCode= "EVN" classCode="BATTERY"> <templateId root="216.840.1.900948.10..22.4.1 " /> <id nullFlavor="NA" /> <code codeSystem="local" code="GLUN" displayName="Glucose NPT" /> <statusCode code="completed" /> < component> <observation moodCode="EVN" classCode="OBS"> < templateId root="16.840.1.952977.10..22.4.2" /> <id nullFlavor="NA " /> <code codeSystem="local" code="GLUN" displayName="Glucose NPT" / > <statusCode code="completed" /> <effectiveTime value= "486632512346" /> <value unit="mg/dL" xsi:type="PQ" value="176" /> <interpretationCode codeSystem="local" code="*" /> < referenceRange> <observationRange> <text>70-100</text> </observationRange> </referenceRange> </observation> </component> </organizer> </entry> <entry> <organizer moodCode= "EVN" classCode="BATTERY"> <templateId root="16.840.1.795973.10..22.4.1 " /> <id nullFlavor="NA" /> <code codeSystem="local" code="CBCND" displayName="CBC With Platelet No Differential" /> <statusCode code= "completed" /> <component> <observation moodCode="EVN" classCode= "OBS"> <templateId root="10.29.840.1.787452.10.20.22.4.2" /> < id nullFlavor="NA" /> <code codeSystem="local" code="HCT" displayName= "HCT" /> <statusCode code="completed" /> <effectiveTime value= "403652860462" /> <value unit="%" xsi:type="PQ" value="35.0" /> <interpretationCode codeSystem="local" code="*" /> < referenceRange> <observationRange> <text>42.0-52.0</text > </observationRange> </referenceRange> </observation > </component> <component> <observation moodCode="EVN" classCode="OBS"> <templateId root="840.1.962256.10.22.4.2" /> <id nullFlavor="NA" /> <code codeSystem="local" code="HGB" displayName="HGB" /> <statusCode code="completed" /> < effectiveTime value="213866686192" /> <value unit="g/dL" xsi:type="PQ" value="11.4" /> <interpretationCode codeSystem="local" code="*" /> <referenceRange> <observationRange> <text>14.0- 18.0</text> </observationRange> </referenceRange> </ observation> </component> <component> <observation moodCode= "EVN" classCode="OBS"> <templateId root="10.29.840.1.003851.10.20.22.4.2 " /> <id nullFlavor="NA" /> <code codeSystem="local" code="MCH " displayName="MCH" /> <statusCode code="completed" /> < effectiveTime value="772126680059" /> <value unit="pg" xsi:type="PQ" value="29.3" /> <referenceRange> <observationRange> <text>27.0-32.0</text> </observationRange> </ referenceRange> </observation> </component> <component> <observation moodCode="EVN" classCode="OBS"> <templateId root= "16.840.1.747870.10.20.22.4.2" /> <id nullFlavor="NA" /> < code codeSystem="local" code="MCHC" displayName="MCHC" /> <statusCode code="completed" /> <effectiveTime value="362265477597" /> < value unit="g/dL" xsi:type="PQ" value="32.6" /> <referenceRange> <observationRange> <text>32.0-36.0</text> </ observationRange> </referenceRange> </observation> </ component> <component> <observation moodCode="EVN" classCode="OBS"> <templateId root="216.840.1.716856.10.20.22.4.2" /> <id nullFlavor="NA" /> <code codeSystem="local" code="MCV" displayName="MCV " /> <statusCode code="completed" /> <effectiveTime value= "532732871476" /> <value unit="fL" xsi:type="PQ" value="90.0" /> <referenceRange> <observationRange> <text>82.0-99.0< /text> </observationRange> </referenceRange> </ observation> </component> <component> <observation moodCode= "EVN" classCode="OBS"> <templateId root="216.840.1.388119.22.4.2 " /> <id nullFlavor="NA" /> <code codeSystem="local" code="MPV " displayName="MPV" /> <statusCode code="completed" /> < effectiveTime value="962398985438" /> <value unit="fL" xsi:type="PQ" value="11.7" /> <referenceRange> <observationRange> <text>9.4-12.3</text> </observationRange> </ referenceRange> </observation> </component> <component> <observation moodCode="EVN" classCode="OBS"> <templateId root= "10.29.840.1.964114.07.02.224.2" /> <id nullFlavor="NA" /> < code codeSystem="local" code="PLT" displayName="Platelet Count" /> < statusCode code="completed" /> <effectiveTime value="737473569153" /> <value unit="K/uL" xsi:type="PQ" value="147" /> < interpretationCode codeSystem="local" code="*" /> <referenceRange> <observationRange> <text>150-400</text> </ observationRange> </referenceRange> </observation> </ component> <component> <observation moodCode="EVN" classCode="OBS"> <templateId root="10.29.840.1.623057.07.02.22.4.2" /> <id nullFlavor="NA" /> <code codeSystem="local" code="RBC" displayName="RBC " /> <statusCode code="completed" /> <effectiveTime value= "200342736492" /> <value unit="10*6/uL" xsi:type="PQ" value="3.89" /> <interpretationCode codeSystem="local" code="*" /> < referenceRange> <observationRange> <text>4.60-6.20</text > </observationRange> </referenceRange> </observation > </component> <component> <observation moodCode="EVN" classCode="OBS"> <templateId root="10.29.840.1.098890.10.20.22.4.2" /> <id nullFlavor="NA" /> <code codeSystem="local" code="RDW" displayName="RDW" /> <statusCode code="completed" /> < effectiveTime value="925288475637" /> <value unit="%" xsi:type="PQ " value="17.2" /> <interpretationCode codeSystem="local" code="*" /> <referenceRange> <observationRange> <text>11.5- 14.5</text> </observationRange> </referenceRange> </ observation> </component> <component> <observation moodCode= "EVN" classCode="OBS"> <templateId root="10.29.840.1.153024...22.4.2 " /> <id nullFlavor="NA" /> <code codeSystem="local" code= "WBCIR" displayName="WBC" /> <statusCode code="completed" /> < effectiveTime value="077280199959" /> <value unit="K/uL" xsi:type="PQ" value="12.6" /> <interpretationCode codeSystem="local" code="*" /> <referenceRange> <observationRange> <text>4.8-10.8 </text> </observationRange> </referenceRange> </ observation> </component> </organizer> </entry> <entry> <organizer moodCode="EVN" classCode="BATTERY"> <templateId root= "10.29.840.1.652916.10.20.22.4.1" /> <id nullFlavor="NA" /> <code codeSystem="local" code="RENAL" displayName="Renal Function Panel" /> < statusCode code="completed" /> <component> <observation moodCode= "EVN" classCode="OBS"> <templateId root="10.29.840.1.385746.10..22.4.2 " /> <id nullFlavor="NA" /> <code codeSystem="local" code="ALB " displayName="Albumin" /> <statusCode code="completed" /> < effectiveTime value="867959253179" /> <value unit="g/dL" xsi:type="PQ" value="2.6" /> <interpretationCode codeSystem="local" code="*" /> <referenceRange> <observationRange> <text>3.5-4.8</ text> </observationRange> </referenceRange> </ observation> </component> <component> <observation moodCode= "EVN" classCode="OBS"> <templateId root="840.1.974909.07.02.22.4.2 " /> <id nullFlavor="NA" /> <code codeSystem="local" code= "AGAP" displayName="Anion Gap" /> <statusCode code="completed" /> <effectiveTime value="675515916049" /> <value unit="mEq/L" xsi: type="PQ" value="9" /> <referenceRange> <observationRange> <text>3-20</text> </observationRange> </ referenceRange> </observation> </component> <component> <observation moodCode="EVN" classCode="OBS"> <templateId root= "10.29.840.1.959780.10..22.4.2" /> <id nullFlavor="NA" /> < code codeSystem="local" code="BUN" displayName="BUN" /> <statusCode code="completed" /> <effectiveTime value="481997479825" /> < value unit="mg/dL" xsi:type="PQ" value="22" /> <interpretationCode codeSystem="local" code="*" /> <referenceRange> < observationRange> <text>4-20</text> </observationRange> </referenceRange> </observation> </component> < component> <observation moodCode="EVN" classCode="OBS"> < templateId root="216.840.1.103825.10.20.22.4.2" /> <id nullFlavor="NA " /> <code codeSystem="local" code="CA" displayName="Calcium" /> <statusCode code="completed" /> <effectiveTime value="992930588544 " /> <value unit="mg/dL" xsi:type="PQ" value="7.8" /> < interpretationCode codeSystem="local" code="*" /> <referenceRange> <observationRange> <text>8.6-10.0</text> </ observationRange> </referenceRange> </observation> </ component> <component> <observation moodCode="EVN" classCode="OBS"> <templateId root="216.840.1.972640.10.20.22.4.2" /> <id nullFlavor="NA" /> <code codeSystem="local" code="CL" displayName= "Chloride" /> <statusCode code="completed" /> <effectiveTime value="677233593417" /> <value unit="mEq/L" xsi:type="PQ" value="97" / > <interpretationCode codeSystem="local" code="*" /> < referenceRange> <observationRange> <text>99-109</text> </observationRange> </referenceRange> </observation> </component> <component> <observation moodCode="EVN" classCode ="OBS"> <templateId root="16.840.1.471667.10..22.4.2" /> < id nullFlavor="NA" /> <code codeSystem="local" code="CO2" displayName= "CO2" /> <statusCode code="completed" /> <effectiveTime value= "" /> <value unit="mEq/L" xsi:type="PQ" value="26" /> <referenceRange> <observationRange> <text>22-32</ text> </observationRange> </referenceRange> </ observation> </component> <component> <observation moodCode= "EVN" classCode="OBS"> <templateId root="10.29.840.1.714767.10..4.2 " /> <id nullFlavor="NA" /> <code codeSystem="local" code= "CREAT" displayName="Creatinine" /> <statusCode code="completed" /> <effectiveTime value="" /> <value unit="mg/dL" xsi: type="PQ" value="1.31" /> <interpretationCode codeSystem="local" code= "*" /> <referenceRange> <observationRange> < text>0.64-1.27</text> </observationRange> </referenceRange> </observation> </component> <component> <observation moodCode="EVN" classCode="OBS"> <templateId root= "10.29.840.1.937119.10.2022.4.2" /> <id nullFlavor="NA" /> < code codeSystem="local" code="GLU" displayName="Glucose" /> < statusCode code="completed" /> <effectiveTime value="290006088716" /> <value unit="mg/dL" xsi:type="PQ" value="116" /> < interpretationCode codeSystem="local" code="*" /> <referenceRange> <observationRange> <text>70-100</text> </ observationRange> </referenceRange> </observation> </ component> <component> <observation moodCode="EVN" classCode="OBS"> <templateId root="10.29.840.1.902985.10.20.22.4.2" /> <id nullFlavor="NA" /> <code codeSystem="local" code="PHOS" displayName= "Phosphorus" /> <statusCode code="completed" /> < effectiveTime value="589747458196" /> <value unit="mg/dL" xsi:type="PQ " value="3.0" /> <referenceRange> <observationRange> <text>2.4-4.7</text> </observationRange> </ referenceRange> </observation> </component> <component> <observation moodCode="EVN" classCode="OBS"> <templateId root= "840.1.250473.22.4.2" /> <id nullFlavor="NA" /> < code codeSystem="local" code="K" displayName="Potassium" /> < statusCode code="completed" /> <effectiveTime value="450335017526" /> <value unit="mEq/L" xsi:type="PQ" value="3.6" /> < referenceRange> <observationRange> <text>3.6-5.1</text> </observationRange> </referenceRange> </observation > </component> <component> <observation moodCode="EVN" classCode="OBS"> <templateId root="10.29.840.1.996897.10.20.22.4.2" /> <id nullFlavor="NA" /> <code codeSystem="local" code="NA" displayName="Sodium" /> <statusCode code="completed" /> < effectiveTime value="070595875797" /> <value unit="mEq/L" xsi:type="PQ " value="132" /> <interpretationCode codeSystem="local" code="*" /> <referenceRange> <observationRange> <text>136-144 </text> </observationRange> </referenceRange> </ observation> </component> </organizer> </entry> <entry> <organizer moodCode="EVN" classCode="BATTERY"> <templateId root= "16.840.1.059299.10..22.4.1" /> <id nullFlavor="NA" /> <code codeSystem="local" code="GFR" displayName="eGFR" /> <statusCode code= "completed" /> <component> <observation moodCode="EVN" classCode= "OBS"> <templateId root="10.29.840.1.018342.10..22.4.2" /> < id nullFlavor="NA" /> <code codeSystem="local" code="GFR" displayName= "eGFR" /> <statusCode code="completed" /> <effectiveTime value ="770903058460" /> <value unit="mL/min" xsi:type="PQ" value="58" /> <interpretationCode codeSystem="local" code="*" /> < referenceRange> <observationRange> <text>>60</text> </observationRange> </referenceRange> </observation> </component> </organizer> </entry> <entry> <organizer moodCode= "EVN" classCode="BATTERY"> <templateId root="10.29.840.1.640838.10.20.22.4.1 " /> <id nullFlavor="NA" /> <code codeSystem="local" code="GLUN" displayName="Glucose NPT" /> <statusCode code="completed" /> < component> <observation moodCode="EVN" classCode="OBS"> < templateId root="216.840.1.435686.10.4.2" /> <id nullFlavor="NA " /> <code codeSystem="local" code="GLUN" displayName="Glucose NPT" / > <statusCode code="completed" /> <effectiveTime value= "832597745606" /> <value unit="mg/dL" xsi:type="PQ" value="124" /> <interpretationCode codeSystem="local" code="*" /> < referenceRange> <observationRange> <text>70-100</text> </observationRange> </referenceRange> </observation> </component> </organizer> </entry> <entry> <organizer moodCode= "EVN" classCode="BATTERY"> <templateId root="216.840.1.736101.10..22.4.1 " /> <id nullFlavor="NA" /> <code codeSystem="local" code="RPR" displayName="RPR" /> <statusCode code="completed" /> <component> <observation moodCode="EVN" classCode="OBS"> <templateId root= "216.840.1.420463.10...4.2" /> <id nullFlavor="NA" /> < code codeSystem="local" code="RPR" displayName="RPR" /> <statusCode code="completed" /> <effectiveTime value="883498068920" /> < value unit="NA" xsi:type="PQ" value="Non-reactive" /> <referenceRange> <observationRange> <text /> </ observationRange> </referenceRange> </observation> </ component> </organizer> </entry> <entry> <organizer moodCode="EVN" classCode="BATTERY"> <templateId root="16.840.1.891239.10...4.1" /> <id nullFlavor="NA" /> <code codeSystem="local" code="QUATB" displayName="Quantiferon TB Test" /> <statusCode code="completed" /> < component> <observation moodCode="EVN" classCode="OBS"> < templateId root="10.29.840.1.814529.10..4.2" /> <id nullFlavor="NA " /> <code codeSystem="local" code="QUATB" displayName="Quantiferon TB Test" /> <statusCode code="completed" /> <effectiveTime value= "489641683883" /> <value unit="NA" xsi:type="PQ" value="Negative" /> <referenceRange> <observationRange> <text> Negative</text> </observationRange> </referenceRange> </observation> </component> </organizer> </entry> <entry> < organizer moodCode="EVN" classCode="BATTERY"> <templateId root= "10.29.840.1.644728.10..4.1" /> <id nullFlavor="NA" /> <code codeSystem="local" code="B12FO" displayName="B12 and Folate" /> < statusCode code="completed" /> <component> <observation moodCode= "EVN" classCode="OBS"> <templateId root="10.29.840.1.868411.10...4.2 " /> <id nullFlavor="NA" /> <code codeSystem="local" code= "FOLAT" displayName="Folate" /> <statusCode code="completed" /> <effectiveTime value="550659595112" /> <value unit="ng/mL" xsi:type= "PQ" value="9.6" /> <referenceRange> <observationRange> <text>7.0-31.4</text> </observationRange> </ referenceRange> </observation> </component> <component> <observation moodCode="EVN" classCode="OBS"> <templateId root= "840.1.936437.07.02.22.4.2" /> <id nullFlavor="NA" /> < code codeSystem="local" code="B12" displayName="Vitamin B12" /> < statusCode code="completed" /> <effectiveTime value="497626462983" /> <value unit="pg/mL" xsi:type="PQ" value="969" /> < interpretationCode codeSystem="local" code="*" /> <referenceRange> <observationRange> <text>213-816</text> </ observationRange> </referenceRange> </observation> </ component> </organizer> </entry> <entry> <organizer moodCode="EVN" classCode="BATTERY"> <templateId root="840.1.097975.07.02.22.4.1" /> <id nullFlavor="NA" /> <code codeSystem="local" code="TSHR" displayName="TSH with Reflex Free T4" /> <statusCode code="completed" /> <component> <observation moodCode="EVN" classCode="OBS"> < templateId root="840.1.734981.07.02.22.4.2" /> <id nullFlavor="NA " /> <code codeSystem="local" code="TSHR" displayName="TSH with Reflex Free T4" /> <statusCode code="completed" /> <effectiveTime value="987692784726" /> <value unit="uIU/mL" xsi:type="PQ" value="3.79 " /> <referenceRange> <observationRange> <text> 0.35-4.94</text> </observationRange> </referenceRange> </observation> </component> </organizer> </entry> <entry> < organizer moodCode="EVN" classCode="BATTERY"> <templateId root= "10.29.840.1.222926.10..22.4.1" /> <id nullFlavor="NA" /> <code codeSystem="local" code="ZG999" displayName="Toxoplasma IgG and IgM" /> < statusCode code="completed" /> <component> <observation moodCode= "EVN" classCode="OBS"> <templateId root="10.29.840.1.403921.10...4.2 " /> <id nullFlavor="NA" /> <code codeSystem="local" code= "Z5920" displayName="Toxoplasma Ab IgG" /> <statusCode code="completed " /> <effectiveTime value="" /> <value unit="NA" xsi:type="PQ" value="Negative" /> <referenceRange> < observationRange> <text>Negative</text> </ observationRange> </referenceRange> </observation> </ component> <component> <observation moodCode="EVN" classCode="OBS"> <templateId root="10.29.840.1.039730.10..4.2" /> <id nullFlavor="NA" /> <code codeSystem="local" code="Z6238" displayName= "Toxoplasma IgG Value" /> <statusCode code="completed" /> < effectiveTime value="972552349147" /> <value unit="IU/mL" xsi:type="PQ " value="<3" /> <referenceRange> <observationRange> <text /> </observationRange> </referenceRange> </observation> </component> </organizer> </entry> <entry> < organizer moodCode="EVN" classCode="BATTERY"> <templateId root= "840.1.426834.07.02.22.4.1" /> <id nullFlavor="NA" /> <code codeSystem="local" code="GLUN" displayName="Glucose NPT" /> <statusCode code="completed" /> <component> <observation moodCode="EVN" classCode="OBS"> <templateId root="840.1.237121.07.02.22.4.2" /> <id nullFlavor="NA" /> <code codeSystem="local" code="GLUN" displayName="Glucose NPT" /> <statusCode code="completed" /> <effectiveTime value="768170936930" /> <value unit="mg/dL" xsi:type="PQ " value="118" /> <interpretationCode codeSystem="local" code="*" /> <referenceRange> <observationRange> <text>70-100< /text> </observationRange> </referenceRange> </ observation> </component> </organizer> </entry> <entry> <organizer moodCode="EVN" classCode="BATTERY"> <templateId root= "840.1.706750.07.02.22.4.1" /> <id nullFlavor="NA" /> <code codeSystem="local" code="CBCWD" displayName="CBC With Platelet and Differential " /> <statusCode code="completed" /> <component> <observation moodCode="EVN" classCode="OBS"> <templateId root= "840.1.133587.07.02.22.4.2" /> <id nullFlavor="NA" /> < code codeSystem="local" code="ABASR" displayName="Absolute Basophils" /> <statusCode code="completed" /> <effectiveTime value="" /> <value unit="10*3/uL" xsi:type="PQ" value="0.01" /> < referenceRange> <observationRange> <text>0.00-0.20</text > </observationRange> </referenceRange> </observation > </component> <component> <observation moodCode="EVN" classCode="OBS"> <templateId root="216.840.1.736513.10...4.2" /> <id nullFlavor="NA" /> <code codeSystem="local" code="AEOSR" displayName="Absolute Eosinophils" /> <statusCode code="completed" /> <effectiveTime value="875863782576" /> <value unit="103/uL" xsi:type="PQ" value="0.75" /> <interpretationCode codeSystem="local" code="*" /> <referenceRange> <observationRange> <text>0.00-0.50</text> </observationRange> </ referenceRange> </observation> </component> <component> <observation moodCode="EVN" classCode="OBS"> <templateId root= "216.840.1.397334.07.02.22.4.2" /> <id nullFlavor="NA" /> < code codeSystem="local" code="ALYMR" displayName="Absolute Lymphocytes" /> <statusCode code="completed" /> <effectiveTime value=" " /> <value unit="10*3/uL" xsi:type="PQ" value="1.65" /> < referenceRange> <observationRange> <text>0.80-3.30</text > </observationRange> </referenceRange> </observation > </component> <component> <observation moodCode="EVN" classCode="OBS"> <templateId root="16.840.1.309370.07.02.22.4.2" /> <id nullFlavor="NA" /> <code codeSystem="local" code="AMONR" displayName="Absolute Monocytes" /> <statusCode code="completed" /> <effectiveTime value="" /> <value unit="10*3/uL" xsi :type="PQ" value="2.16" /> <interpretationCode codeSystem="local" code= "*" /> <referenceRange> <observationRange> < text>0.30-1.00</text> </observationRange> </referenceRange> </observation> </component> <component> <observation moodCode="EVN" classCode="OBS"> <templateId root= "10.29.840.1.374159.07.02.224.2" /> <id nullFlavor="NA" /> < code codeSystem="local" code="ASEGR" displayName="Absolute Neutrophils" /> <statusCode code="completed" /> <effectiveTime value=" " /> <value unit="10*3/uL" xsi:type="PQ" value="7.86" /> < interpretationCode codeSystem="local" code="*" /> <referenceRange> <observationRange> <text>1.90-7.00</text> </ observationRange> </referenceRange> </observation> </ component> <component> <observation moodCode="EVN" classCode="OBS"> <templateId root="10.29.840.1.767563.07.02.22.4.2" /> <id nullFlavor="NA" /> <code codeSystem="local" code="BASOR" displayName= "Basophils" /> <statusCode code="completed" /> <effectiveTime value="060522159061" /> <value unit="%" xsi:type="PQ" value="0" /> <referenceRange> <observationRange> <text>0-2< /text> </observationRange> </referenceRange> </ observation> </component> <component> <observation moodCode= "EVN" classCode="OBS"> <templateId root="16.840.1.347191.10.22.4.2 " /> <id nullFlavor="NA" /> <code codeSystem="local" code= "EOSR" displayName="Eosinophils" /> <statusCode code="completed" /> <effectiveTime value="195138533055" /> <value unit="%" xsi: type="PQ" value="6" /> <interpretationCode codeSystem="local" code="*" /> <referenceRange> <observationRange> <text>0- 4</text> </observationRange> </referenceRange> </ observation> </component> <component> <observation moodCode= "EVN" classCode="OBS"> <templateId root="16.840.1.558468.10.22.4.2 " /> <id nullFlavor="NA" /> <code codeSystem="local" code="HCT " displayName="HCT" /> <statusCode code="completed" /> < effectiveTime value="914911748656" /> <value unit="%" xsi:type="PQ " value="34.8" /> <interpretationCode codeSystem="local" code="*" /> <referenceRange> <observationRange> <text>42.0- 52.0</text> </observationRange> </referenceRange> </ observation> </component> <component> <observation moodCode= "EVN" classCode="OBS"> <templateId root="10.29.840.1.668211.10.20.22.4.2 " /> <id nullFlavor="NA" /> <code codeSystem="local" code="HGB " displayName="HGB" /> <statusCode code="completed" /> < effectiveTime value="715898163586" /> <value unit="g/dL" xsi:type="PQ" value="11.3" /> <interpretationCode codeSystem="local" code="*" /> <referenceRange> <observationRange> <text>14.0- 18.0</text> </observationRange> </referenceRange> </ observation> </component> <component> <observation moodCode= "EVN" classCode="OBS"> <templateId root="10.29.840.1.208886.10..4.2 " /> <id nullFlavor="NA" /> <code codeSystem="local" code= "IMGA" displayName="Immature Granulocytes" /> <statusCode code= "completed" /> <effectiveTime value="" /> <value unit="%" xsi:type="PQ" value="0.6" /> <referenceRange> < observationRange> <text>0.0-1.0</text> </ observationRange> </referenceRange> </observation> </ component> <component> <observation moodCode="EVN" classCode="OBS"> <templateId root="10.29.840.1.384969.10..22.4.2" /> <id nullFlavor="NA" /> <code codeSystem="local" code="LYMPR" displayName= "Lymphocytes" /> <statusCode code="completed" /> < effectiveTime value="076921789329" /> <value unit="%" xsi:type="PQ " value="13" /> <interpretationCode codeSystem="local" code="*" /> <referenceRange> <observationRange> <text>20-46</ text> </observationRange> </referenceRange> </ observation> </component> <component> <observation moodCode= "EVN" classCode="OBS"> <templateId root="216.840.1.398262.10.20.4.2 " /> <id nullFlavor="NA" /> <code codeSystem="local" code="MCH " displayName="MCH" /> <statusCode code="completed" /> < effectiveTime value="331632770312" /> <value unit="pg" xsi:type="PQ" value="29.4" /> <referenceRange> <observationRange> <text>27.0-32.0</text> </observationRange> </ referenceRange> </observation> </component> <component> <observation moodCode="EVN" classCode="OBS"> <templateId root= "10.29.840.1.647915.104.2" /> <id nullFlavor="NA" /> < code codeSystem="local" code="MCHC" displayName="MCHC" /> <statusCode code="completed" /> <effectiveTime value="377505792521" /> < value unit="g/dL" xsi:type="PQ" value="32.5" /> <referenceRange> <observationRange> <text>32.0-36.0</text> </ observationRange> </referenceRange> </observation> </ component> <component> <observation moodCode="EVN" classCode="OBS"> <templateId root="10.29.840.1.689282.10.20.4.2" /> <id nullFlavor="NA" /> <code codeSystem="local" code="MCV" displayName="MCV " /> <statusCode code="completed" /> <effectiveTime value= "917516081930" /> <value unit="fL" xsi:type="PQ" value="90.4" /> <referenceRange> <observationRange> <text>82.0-99.0< /text> </observationRange> </referenceRange> </ observation> </component> <component> <observation moodCode= "EVN" classCode="OBS"> <templateId root="10.29.840.1.377105.07.02.22.4.2 " /> <id nullFlavor="NA" /> <code codeSystem="local" code= "MONOR" displayName="Monocytes" /> <statusCode code="completed" /> <effectiveTime value="843025221491" /> <value unit="%" xsi: type="PQ" value="17" /> <interpretationCode codeSystem="local" code="* " /> <referenceRange> <observationRange> <text> 4-11</text> </observationRange> </referenceRange> </ observation> </component> <component> <observation moodCode= "EVN" classCode="OBS"> <templateId root="10.29.840.1.537422.07.02.22.4.2 " /> <id nullFlavor="NA" /> <code codeSystem="local" code="MPV " displayName="MPV" /> <statusCode code="completed" /> < effectiveTime value="873600729696" /> <value unit="fL" xsi:type="PQ" value="11.7" /> <referenceRange> <observationRange> <text>9.4-12.3</text> </observationRange> </ referenceRange> </observation> </component> <component> <observation moodCode="EVN" classCode="OBS"> <templateId root= "10.29.840.1.857428.07.02.22.4.2" /> <id nullFlavor="NA" /> < code codeSystem="local" code="SEGR" displayName="Neutrophils" /> < statusCode code="completed" /> <effectiveTime value="" /> <value unit="%" xsi:type="PQ" value="63" /> < referenceRange> <observationRange> <text>51-75</text> </observationRange> </referenceRange> </observation> </component> <component> <observation moodCode="EVN" classCode= "OBS"> <templateId root="2.16.840.1.071720.07.02.22.4.2" /> < id nullFlavor="NA" /> <code codeSystem="local" code="NRBCA" displayName ="Nucleated RBC Automated" /> <statusCode code="completed" /> <effectiveTime value="" /> <value unit="/100WBC" xsi:type= "PQ" value="0.3" /> <referenceRange> <observationRange> <text /> </observationRange> </referenceRange> </observation> </component> <component> <observation moodCode="EVN" classCode="OBS"> <templateId root= "2.16.840.1.407989.10..4.2" /> <id nullFlavor="NA" /> < code codeSystem="local" code="PLT" displayName="Platelet Count" /> < statusCode code="completed" /> <effectiveTime value="" /> <value unit="K/uL" xsi:type="PQ" value="126" /> < interpretationCode codeSystem="local" code="*" /> <referenceRange> <observationRange> <text>150-400</text> </ observationRange> </referenceRange> </observation> </ component> <component> <observation moodCode="EVN" classCode="OBS"> <templateId root="216.840.1.523055.10.22.4.2" /> <id nullFlavor="NA" /> <code codeSystem="local" code="RBC" displayName="RBC " /> <statusCode code="completed" /> <effectiveTime value= "" /> <value unit="10*6/uL" xsi:type="PQ" value="3.85" /> <interpretationCode codeSystem="local" code="*" /> < referenceRange> <observationRange> <text>4.60-6.20</text > </observationRange> </referenceRange> </observation > </component> <component> <observation moodCode="EVN" classCode="OBS"> <templateId root="10.29.840.1.157931.07.02.224.2" /> <id nullFlavor="NA" /> <code codeSystem="local" code="RDW" displayName="RDW" /> <statusCode code="completed" /> < effectiveTime value="" /> <value unit="%" xsi:type="PQ " value="17.8" /> <interpretationCode codeSystem="local" code="*" /> <referenceRange> <observationRange> <text>11.5- 14.5</text> </observationRange> </referenceRange> </ observation> </component> <component> <observation moodCode= "EVN" classCode="OBS"> <templateId root="16.840.1.760200.22.4.2 " /> <id nullFlavor="NA" /> <code codeSystem="local" code= "WBCIR" displayName="WBC" /> <statusCode code="completed" /> < effectiveTime value="623896184570" /> <value unit="K/uL" xsi:type="PQ" value="12.5" /> <interpretationCode codeSystem="local" code="*" /> <referenceRange> <observationRange> <text>4.8-10.8 </text> </observationRange> </referenceRange> </ observation> </component> </organizer> </entry> <entry> <organizer moodCode="EVN" classCode="BATTERY"> <templateId root= "216.840.1.762695.10..22.4.1" /> <id nullFlavor="NA" /> <code codeSystem="local" code="GLUN" displayName="Glucose NPT" /> <statusCode code="completed" /> <component> <observation moodCode="EVN" classCode="OBS"> <templateId root="216.840.1.382483.10..22.4.2" /> <id nullFlavor="NA" /> <code codeSystem="local" code="GLUN" displayName="Glucose NPT" /> <statusCode code="completed" /> <effectiveTime value="747271664237" /> <value unit="mg/dL" xsi:type="PQ " value="93" /> <referenceRange> <observationRange> <text>70-100</text> </observationRange> </ referenceRange> </observation> </component> </organizer> </entry > <entry> <organizer moodCode="EVN" classCode="BATTERY"> <templateId root="216.840.1.482875.10..22.4.1" /> <id nullFlavor="NA" /> <code codeSystem="local" code="MG" displayName="Magnesium" /> <statusCode code= "completed" /> <component> <observation moodCode="EVN" classCode= "OBS"> <templateId root="16.840.1.994933.10..22.4.2" /> < id nullFlavor="NA" /> <code codeSystem="local" code="MG" displayName= "Magnesium" /> <statusCode code="completed" /> <effectiveTime value="" /> <value unit="mg/dL" xsi:type="PQ" value="2.0" / > <referenceRange> <observationRange> <text>1.8 -2.5</text> </observationRange> </referenceRange> </ observation> </component> </organizer> </entry> <entry> <organizer moodCode="EVN" classCode="BATTERY"> <templateId root= "16.840.1.454285.10..22.4.1" /> <id nullFlavor="NA" /> <code codeSystem="local" code="PHOS" displayName="Phosphorus" /> <statusCode code ="completed" /> <component> <observation moodCode="EVN" classCode= "OBS"> <templateId root="216.840.1.348107.10..22.4.2" /> < id nullFlavor="NA" /> <code codeSystem="local" code="PHOS" displayName= "Phosphorus" /> <statusCode code="completed" /> < effectiveTime value="738103086438" /> <value unit="mg/dL" xsi:type="PQ " value="3.5" /> <referenceRange> <observationRange> <text>2.4-4.7</text> </observationRange> </ referenceRange> </observation> </component> </organizer> </entry > <entry> <organizer moodCode="EVN" classCode="BATTERY"> <templateId root="16.840.1.473108..22.4.1" /> <id nullFlavor="NA" /> <code codeSystem="local" code="CMP" displayName="Comprehensive Metabolic Panel (CMP)" /> <statusCode code="completed" /> <component> <observation moodCode="EVN" classCode="OBS"> <templateId root= "10.29.840.1.291755.07.02.22.4.2" /> <id nullFlavor="NA" /> < code codeSystem="local" code="ALB" displayName="Albumin" /> < statusCode code="completed" /> <effectiveTime value="807653883532" /> <value unit="g/dL" xsi:type="PQ" value="2.5" /> < interpretationCode codeSystem="local" code="*" /> <referenceRange> <observationRange> <text>3.5-4.8</text> </ observationRange> </referenceRange> </observation> </ component> <component> <observation moodCode="EVN" classCode="OBS"> <templateId root="10.29.840.1.855798.07.02.22.4.2" /> <id nullFlavor="NA" /> <code codeSystem="local" code="ALP" displayName= "Alkaline Phosphatase" /> <statusCode code="completed" /> < effectiveTime value="475523315806" /> <value unit="U/L" xsi:type="PQ" value="121" /> <interpretationCode codeSystem="local" code="*" /> <referenceRange> <observationRange> <text>26-104</ text> </observationRange> </referenceRange> </ observation> </component> <component> <observation moodCode= "EVN" classCode="OBS"> <templateId root="10.29.840.1.692044.07.02.224.2 " /> <id nullFlavor="NA" /> <code codeSystem="local" code="ALT " displayName="ALT (SGPT)" /> <statusCode code="completed" /> <effectiveTime value="" /> <value unit="U/L" xsi:type="PQ" value="275" /> <interpretationCode codeSystem="local" code="*" /> <referenceRange> <observationRange> <text>17-63</ text> </observationRange> </referenceRange> </ observation> </component> <component> <observation moodCode= "EVN" classCode="OBS"> <templateId root="2.16.840.1.723791.07.02.224.2 " /> <id nullFlavor="NA" /> <code codeSystem="local" code= "AGAP" displayName="Anion Gap" /> <statusCode code="completed" /> <effectiveTime value="" /> <value unit="mEq/L" xsi: type="PQ" value="9" /> <referenceRange> <observationRange> <text>3-20</text> </observationRange> </ referenceRange> </observation> </component> <component> <observation moodCode="EVN" classCode="OBS"> <templateId root= "216.840.1.724224.07.02.22.4.2" /> <id nullFlavor="NA" /> < code codeSystem="local" code="AST" displayName="AST (SGOT)" /> < statusCode code="completed" /> <effectiveTime value="" /> <value unit="U/L" xsi:type="PQ" value="101" /> < interpretationCode codeSystem="local" code="*" /> <referenceRange> <observationRange> <text>15-41</text> </ observationRange> </referenceRange> </observation> </ component> <component> <observation moodCode="EVN" classCode="OBS"> <templateId root="216.840.1.310720.1022.4.2" /> <id nullFlavor="NA" /> <code codeSystem="local" code="BILIT" displayName= "Bilirubin Total" /> <statusCode code="completed" /> < effectiveTime value="" /> <value unit="mg/dL" xsi:type="PQ " value="2.3" /> <interpretationCode codeSystem="local" code="*" /> <referenceRange> <observationRange> <text>0.2-1.2 </text> </observationRange> </referenceRange> </ observation> </component> <component> <observation moodCode= "EVN" classCode="OBS"> <templateId root="16.840.1.826880.07.02.22.4.2 " /> <id nullFlavor="NA" /> <code codeSystem="local" code="BUN " displayName="BUN" /> <statusCode code="completed" /> < effectiveTime value="" /> <value unit="mg/dL" xsi:type="PQ " value="20" /> <referenceRange> <observationRange> <text>4-20</text> </observationRange> </referenceRange > </observation> </component> <component> <observation moodCode="EVN" classCode="OBS"> <templateId root= "16.840.1.799039.10..4.2" /> <id nullFlavor="NA" /> < code codeSystem="local" code="CA" displayName="Calcium" /> <statusCode code="completed" /> <effectiveTime value="" /> < value unit="mg/dL" xsi:type="PQ" value="7.9" /> <interpretationCode codeSystem="local" code="*" /> <referenceRange> < observationRange> <text>8.6-10.0</text> </ observationRange> </referenceRange> </observation> </ component> <component> <observation moodCode="EVN" classCode="OBS"> <templateId root="10.29.840.1.566423.07.02.22.4.2" /> <id nullFlavor="NA" /> <code codeSystem="local" code="CL" displayName= "Chloride" /> <statusCode code="completed" /> <effectiveTime value="678336273480" /> <value unit="mEq/L" xsi:type="PQ" value="98" / > <interpretationCode codeSystem="local" code="*" /> < referenceRange> <observationRange> <text>99-109</text> </observationRange> </referenceRange> </observation> </component> <component> <observation moodCode="EVN" classCode ="OBS"> <templateId root="10.29.840.1.575088.07.02.22.4.2" /> < id nullFlavor="NA" /> <code codeSystem="local" code="CO2" displayName= "CO2" /> <statusCode code="completed" /> <effectiveTime value= "394574341180" /> <value unit="mEq/L" xsi:type="PQ" value="25" /> <referenceRange> <observationRange> <text>22-32</ text> </observationRange> </referenceRange> </ observation> </component> <component> <observation moodCode= "EVN" classCode="OBS"> <templateId root="10.29.840.1.847239.07.02.22.4.2 " /> <id nullFlavor="NA" /> <code codeSystem="local" code= "CREAT" displayName="Creatinine" /> <statusCode code="completed" /> <effectiveTime value="" /> <value unit="mg/dL" xsi: type="PQ" value="1.26" /> <referenceRange> <observationRange > <text>0.64-1.27</text> </observationRange> </ referenceRange> </observation> </component> <component> <observation moodCode="EVN" classCode="OBS"> <templateId root= "2.16.840.1.602102.07.02.22.4.2" /> <id nullFlavor="NA" /> < code codeSystem="local" code="GLOB" displayName="Globulin" /> < statusCode code="completed" /> <effectiveTime value="" /> <value unit="g/dL" xsi:type="PQ" value="3.2" /> < referenceRange> <observationRange> <text>1.9-4.3</text> </observationRange> </referenceRange> </observation > </component> <component> <observation moodCode="EVN" classCode="OBS"> <templateId root="2.16.840.1.241544.07.02.22.4.2" /> <id nullFlavor="NA" /> <code codeSystem="local" code="GLU" displayName="Glucose" /> <statusCode code="completed" /> < effectiveTime value="" /> <value unit="mg/dL" xsi:type="PQ " value="99" /> <referenceRange> <observationRange> <text>70-100</text> </observationRange> </ referenceRange> </observation> </component> <component> <observation moodCode="EVN" classCode="OBS"> <templateId root= "840.1.325175.10.20.22.4.2" /> <id nullFlavor="NA" /> < code codeSystem="local" code="K" displayName="Potassium" /> < statusCode code="completed" /> <effectiveTime value="" /> <value unit="mEq/L" xsi:type="PQ" value="3.7" /> < referenceRange> <observationRange> <text>3.6-5.1</text> </observationRange> </referenceRange> </observation > </component> <component> <observation moodCode="EVN" classCode="OBS"> <templateId root="840.1.818480.1022.4.2" /> <id nullFlavor="NA" /> <code codeSystem="local" code="TP" displayName="Protein" /> <statusCode code="completed" /> < effectiveTime value="" /> <value unit="g/dL" xsi:type="PQ" value="5.7" /> <interpretationCode codeSystem="local" code="*" /> <referenceRange> <observationRange> <text>6.1-7.9</ text> </observationRange> </referenceRange> </ observation> </component> <component> <observation moodCode= "EVN" classCode="OBS"> <templateId root="840.1.841993.10.2022.4.2 " /> <id nullFlavor="NA" /> <code codeSystem="local" code="NA " displayName="Sodium" /> <statusCode code="completed" /> < effectiveTime value="" /> <value unit="mEq/L" xsi:type="PQ " value="132" /> <interpretationCode codeSystem="local" code="*" /> <referenceRange> <observationRange> <text>136-144 </text> </observationRange> </referenceRange> </ observation> </component> </organizer> </entry> <entry> <organizer moodCode="EVN" classCode="BATTERY"> <templateId root= "16.840.1.235949.1022.4.1" /> <id nullFlavor="NA" /> <code codeSystem="local" code="GFR" displayName="eGFR" /> <statusCode code= "completed" /> <component> <observation moodCode="EVN" classCode= "OBS"> <templateId root="10.29.840.1.402780.07.02.22.4.2" /> < id nullFlavor="NA" /> <code codeSystem="local" code="GFR" displayName= "eGFR" /> <statusCode code="completed" /> <effectiveTime value ="[id number]" /> <value unit="mL/min" xsi:type="PQ" value=">60" / > <referenceRange> <observationRange> <text>&gt ;60</text> </observationRange> </referenceRange> </ observation> </component> </organizer> </entry> <entry> <organizer moodCode="EVN" classCode="BATTERY"> <templateId root= "16.840.1.925421.1022.4.1" /> <id nullFlavor="NA" /> <code codeSystem="local" code="UDRGH" displayName="Urine Drug Screen" /> < statusCode code="completed" /> <component> <observation moodCode= "EVN" classCode="OBS"> <templateId root="10.29.840.1.681430.10..4.2 " /> <id nullFlavor="NA" /> <code codeSystem="local" code= "UTCA1" displayName="Tricyclics" /> <statusCode code="completed" /> <effectiveTime value="[id number]" /> <value unit="NA" xsi:type ="PQ" value="Not Detected" /> <referenceRange> < observationRange> <text /> </observationRange> </referenceRange> </observation> </component> </organizer> </ entry> <entry> <organizer moodCode="EVN" classCode="BATTERY"> < templateId root="216.840.1.520542.07.02.22.4.1" /> <id nullFlavor="NA" /> <code codeSystem="local" code="ZH089" displayName="Histoplasma Ag, U" /> <statusCode code="completed" /> <component> <observation moodCode="EVN" classCode="OBS"> <templateId root= "216.840.1.257251.10..4.2" /> <id nullFlavor="NA" /> < code codeSystem="local" code="Z6514" displayName="Histoplasma Ag, U" /> <statusCode code="completed" /> <effectiveTime value="[id number]" / > <value unit="NA" xsi:type="PQ" value="Negative" /> < referenceRange> <observationRange> <text>Negative</text > </observationRange> </referenceRange> </observation > </component> <component> <observation moodCode="EVN" classCode="OBS"> <templateId root="216.840.1.672397.10.4.2" /> <id nullFlavor="NA" /> <code codeSystem="local" code="Z6515" displayName="Histoplasma Ag, U Value" /> <statusCode code="completed" / > <effectiveTime value="223063945788" /> <value unit="ng/mL" xsi:type="PQ" value="0.03" /> <referenceRange> < observationRange> <text /> </observationRange> </referenceRange> </observation> </component> </organizer> </ entry> <entry> <organizer moodCode="EVN" classCode="BATTERY"> < templateId root="216.840.1.212878.10..22.4.1" /> <id nullFlavor="NA" /> <code codeSystem="local" code="GLUN" displayName="Glucose NPT" /> < statusCode code="completed" /> <component> <observation moodCode= "EVN" classCode="OBS"> <templateId root="216.840.1.185932.10..22.4.2 " /> <id nullFlavor="NA" /> <code codeSystem="local" code= "GLUN" displayName="Glucose NPT" /> <statusCode code="completed" /> <effectiveTime value="522522935702" /> <value unit="mg/dL" xsi: type="PQ" value="113" /> <interpretationCode codeSystem="local" code="* " /> <referenceRange> <observationRange> <text> 70-100</text> </observationRange> </referenceRange> < /observation> </component> </organizer> </entry> <entry> < organizer moodCode="EVN" classCode="BATTERY"> <templateId root= "216.840.1.495969.10..22.4.1" /> <id nullFlavor="NA" /> <code codeSystem="local" code="CBCWD" displayName="CBC With Platelet and Differential " /> <statusCode code="completed" /> <component> <observation moodCode="EVN" classCode="OBS"> <templateId root= "216.840.1.229151.10.22.4.2" /> <id nullFlavor="NA" /> < code codeSystem="local" code="HCT" displayName="HCT" /> <statusCode code="completed" /> <effectiveTime value="" /> < value unit="%" xsi:type="PQ" value="33.5" /> <interpretationCode codeSystem="local" code="*" /> <referenceRange> < observationRange> <text>42.0-52.0</text> </ observationRange> </referenceRange> </observation> </ component> <component> <observation moodCode="EVN" classCode="OBS"> <templateId root="2.840.1.914858.07.02.224.2" /> <id nullFlavor="NA" /> <code codeSystem="local" code="HGB" displayName="HGB " /> <statusCode code="completed" /> <effectiveTime value= "" /> <value unit="g/dL" xsi:type="PQ" value="10.7" /> <interpretationCode codeSystem="local" code="*" /> < referenceRange> <observationRange> <text>14.0-18.0</text > </observationRange> </referenceRange> </observation > </component> <component> <observation moodCode="EVN" classCode="OBS"> <templateId root="16.840.1.605898.1022.4.2" /> <id nullFlavor="NA" /> <code codeSystem="local" code="MCH" displayName="MCH" /> <statusCode code="completed" /> < effectiveTime value="" /> <value unit="pg" xsi:type="PQ" value="28.9" /> <referenceRange> <observationRange> <text>27.0-32.0</text> </observationRange> </ referenceRange> </observation> </component> <component> <observation moodCode="EVN" classCode="OBS"> <templateId root= "216.840.1.695982.07.02.22.4.2" /> <id nullFlavor="NA" /> < code codeSystem="local" code="MCHC" displayName="MCHC" /> <statusCode code="completed" /> <effectiveTime value="" /> < value unit="g/dL" xsi:type="PQ" value="31.9" /> <interpretationCode codeSystem="local" code="*" /> <referenceRange> < observationRange> <text>32.0-36.0</text> </ observationRange> </referenceRange> </observation> </ component> <component> <observation moodCode="EVN" classCode="OBS"> <templateId root="10.29.840.1.366924.07.02.22.4.2" /> <id nullFlavor="NA" /> <code codeSystem="local" code="MCV" displayName="MCV " /> <statusCode code="completed" /> <effectiveTime value= "574328391412" /> <value unit="fL" xsi:type="PQ" value="90.5" /> <referenceRange> <observationRange> <text>82.0-99.0< /text> </observationRange> </referenceRange> </ observation> </component> <component> <observation moodCode= "EVN" classCode="OBS"> <templateId root="216.840.1.450088.07.02.22.4.2 " /> <id nullFlavor="NA" /> <code codeSystem="local" code="MPV " displayName="MPV" /> <statusCode code="completed" /> < effectiveTime value="" /> <value unit="fL" xsi:type="PQ" value="11.4" /> <referenceRange> <observationRange> <text>9.4-12.3</text> </observationRange> </ referenceRange> </observation> </component> <component> <observation moodCode="EVN" classCode="OBS"> <templateId root= "2.16.840.1.103125.07.02.22.4.2" /> <id nullFlavor="NA" /> < code codeSystem="local" code="PLT" displayName="Platelet Count" /> < statusCode code="completed" /> <effectiveTime value="" /> <value unit="K/uL" xsi:type="PQ" value="122" /> < interpretationCode codeSystem="local" code="*" /> <referenceRange> <observationRange> <text>150-400</text> </ observationRange> </referenceRange> </observation> </ component> <component> <observation moodCode="EVN" classCode="OBS"> <templateId root="216.840.1.629841.07.02.22.4.2" /> <id nullFlavor="NA" /> <code codeSystem="local" code="RBC" displayName="RBC " /> <statusCode code="completed" /> <effectiveTime value= "" /> <value unit="10*6/uL" xsi:type="PQ" value="3.70" /> <interpretationCode codeSystem="local" code="*" /> < referenceRange> <observationRange> <text>4.60-6.20</text > </observationRange> </referenceRange> </observation > </component> <component> <observation moodCode="EVN" classCode="OBS"> <templateId root="16.840.1.390692.10.22.4.2" /> <id nullFlavor="NA" /> <code codeSystem="local" code="RDW" displayName="RDW" /> <statusCode code="completed" /> < effectiveTime value="" /> <value unit="%" xsi:type="PQ " value="18.0" /> <interpretationCode codeSystem="local" code="*" /> <referenceRange> <observationRange> <text>11.5- 14.5</text> </observationRange> </referenceRange> </ observation> </component> <component> <observation moodCode= "EVN" classCode="OBS"> <templateId root="10.29.840.1.687024.07.02.22.4.2 " /> <id nullFlavor="NA" /> <code codeSystem="local" code= "WBCIR" displayName="WBC" /> <statusCode code="completed" /> < effectiveTime value="" /> <value unit="K/uL" xsi:type="PQ" value="11.8" /> <interpretationCode codeSystem="local" code="*" /> <referenceRange> <observationRange> <text>4.8-10.8 </text> </observationRange> </referenceRange> </ observation> </component> </organizer> </entry> <entry> <organizer moodCode="EVN" classCode="BATTERY"> <templateId root= "16.840.1.962393.10.20.22.4.1" /> <id nullFlavor="NA" /> <code codeSystem="local" code="CMP" displayName="Comprehensive Metabolic Panel (CMP)" /> <statusCode code="completed" /> <component> <observation moodCode="EVN" classCode="OBS"> <templateId root= "840.1.401355.10.20.22.4.2" /> <id nullFlavor="NA" /> < code codeSystem="local" code="ALB" displayName="Albumin" /> < statusCode code="completed" /> <effectiveTime value="" /> <value unit="g/dL" xsi:type="PQ" value="2.6" /> < interpretationCode codeSystem="local" code="*" /> <referenceRange> <observationRange> <text>3.5-4.8</text> </ observationRange> </referenceRange> </observation> </ component> <component> <observation moodCode="EVN" classCode="OBS"> <templateId root="840.1.450527.10.22.4.2" /> <id nullFlavor="NA" /> <code codeSystem="local" code="ALP" displayName= "Alkaline Phosphatase" /> <statusCode code="completed" /> < effectiveTime value="723343146521" /> <value unit="U/L" xsi:type="PQ" value="113" /> <interpretationCode codeSystem="local" code="*" /> <referenceRange> <observationRange> <text>26-104</ text> </observationRange> </referenceRange> </ observation> </component> <component> <observation moodCode= "EVN" classCode="OBS"> <templateId root="10.29.840.1.126263.10.20.22.4.2 " /> <id nullFlavor="NA" /> <code codeSystem="local" code="ALT " displayName="ALT (SGPT)" /> <statusCode code="completed" /> <effectiveTime value="952107545127" /> <value unit="U/L" xsi:type="PQ" value="215" /> <interpretationCode codeSystem="local" code="*" /> <referenceRange> <observationRange> <text>17-63</ text> </observationRange> </referenceRange> </ observation> </component> <component> <observation moodCode= "EVN" classCode="OBS"> <templateId root="216.840.1.484746.10..22.4.2 " /> <id nullFlavor="NA" /> <code codeSystem="local" code= "AGAP" displayName="Anion Gap" /> <statusCode code="completed" /> <effectiveTime value="299257302262" /> <value unit="mEq/L" xsi: type="PQ" value="7" /> <referenceRange> <observationRange> <text>3-20</text> </observationRange> </ referenceRange> </observation> </component> <component> <observation moodCode="EVN" classCode="OBS"> <templateId root= "216.840.1.097350.10..22.4.2" /> <id nullFlavor="NA" /> < code codeSystem="local" code="AST" displayName="AST (SGOT)" /> < statusCode code="completed" /> <effectiveTime value="591740386532" /> <value unit="U/L" xsi:type="PQ" value="70" /> < interpretationCode codeSystem="local" code="*" /> <referenceRange> <observationRange> <text>15-41</text> </ observationRange> </referenceRange> </observation> </ component> <component> <observation moodCode="EVN" classCode="OBS"> <templateId root="16.840.1.990375.10..22.4.2" /> <id nullFlavor="NA" /> <code codeSystem="local" code="BILIT" displayName= "Bilirubin Total" /> <statusCode code="completed" /> < effectiveTime value="" /> <value unit="mg/dL" xsi:type="PQ " value="1.6" /> <interpretationCode codeSystem="local" code="*" /> <referenceRange> <observationRange> <text>0.2-1.2 </text> </observationRange> </referenceRange> </ observation> </component> <component> <observation moodCode= "EVN" classCode="OBS"> <templateId root="10.29.840.1.992738.07.02.22.4.2 " /> <id nullFlavor="NA" /> <code codeSystem="local" code="BUN " displayName="BUN" /> <statusCode code="completed" /> < effectiveTime value="" /> <value unit="mg/dL" xsi:type="PQ " value="22" /> <interpretationCode codeSystem="local" code="*" /> <referenceRange> <observationRange> <text>4-20</ text> </observationRange> </referenceRange> </ observation> </component> <component> <observation moodCode= "EVN" classCode="OBS"> <templateId root="10.29.840.1.506086.10.22.4.2 " /> <id nullFlavor="NA" /> <code codeSystem="local" code="CA " displayName="Calcium" /> <statusCode code="completed" /> < effectiveTime value="" /> <value unit="mg/dL" xsi:type="PQ " value="7.9" /> <interpretationCode codeSystem="local" code="*" /> <referenceRange> <observationRange> <text>8.6- 10.0</text> </observationRange> </referenceRange> </ observation> </component> <component> <observation moodCode= "EVN" classCode="OBS"> <templateId root="10.29.840.1.492914.10.4.2 " /> <id nullFlavor="NA" /> <code codeSystem="local" code="CL " displayName="Chloride" /> <statusCode code="completed" /> < effectiveTime value="704485448078" /> <value unit="mEq/L" xsi:type="PQ " value="97" /> <interpretationCode codeSystem="local" code="*" /> <referenceRange> <observationRange> <text>99-109</ text> </observationRange> </referenceRange> </ observation> </component> <component> <observation moodCode= "EVN" classCode="OBS"> <templateId root="840.1.408287.07.02.224.2 " /> <id nullFlavor="NA" /> <code codeSystem="local" code="CO2 " displayName="CO2" /> <statusCode code="completed" /> < effectiveTime value="900915369755" /> <value unit="mEq/L" xsi:type="PQ " value="27" /> <referenceRange> <observationRange> <text>22-32</text> </observationRange> </ referenceRange> </observation> </component> <component> <observation moodCode="EVN" classCode="OBS"> <templateId root= "10.29.840.1.640589.07.02.22.4.2" /> <id nullFlavor="NA" /> < code codeSystem="local" code="CREAT" displayName="Creatinine" /> < statusCode code="completed" /> <effectiveTime value="" /> <value unit="mg/dL" xsi:type="PQ" value="1.28" /> < interpretationCode codeSystem="local" code="*" /> <referenceRange> <observationRange> <text>0.64-1.27</text> </ observationRange> </referenceRange> </observation> </ component> <component> <observation moodCode="EVN" classCode="OBS"> <templateId root="2.16.840.1.842761.10..4.2" /> <id nullFlavor="NA" /> <code codeSystem="local" code="GLOB" displayName= "Globulin" /> <statusCode code="completed" /> <effectiveTime value="" /> <value unit="g/dL" xsi:type="PQ" value="3.0" / > <referenceRange> <observationRange> <text>1.9 -4.3</text> </observationRange> </referenceRange> </ observation> </component> <component> <observation moodCode= "EVN" classCode="OBS"> <templateId root="2.16.840.1.543666...4.2 " /> <id nullFlavor="NA" /> <code codeSystem="local" code="GLU " displayName="Glucose" /> <statusCode code="completed" /> < effectiveTime value="" /> <value unit="mg/dL" xsi:type="PQ " value="85" /> <referenceRange> <observationRange> <text>70-100</text> </observationRange> </ referenceRange> </observation> </component> <component> <observation moodCode="EVN" classCode="OBS"> <templateId root= "840.1.986205.10...4.2" /> <id nullFlavor="NA" /> < code codeSystem="local" code="K" displayName="Potassium" /> < statusCode code="completed" /> <effectiveTime value="" /> <value unit="mEq/L" xsi:type="PQ" value="3.4" /> < interpretationCode codeSystem="local" code="*" /> <referenceRange> <observationRange> <text>3.6-5.1</text> </ observationRange> </referenceRange> </observation> </ component> <component> <observation moodCode="EVN" classCode="OBS"> <templateId root="840.1.834683.07.02.22.4.2" /> <id nullFlavor="NA" /> <code codeSystem="local" code="TP" displayName= "Protein" /> <statusCode code="completed" /> <effectiveTime value="" /> <value unit="g/dL" xsi:type="PQ" value="5.6" / > <interpretationCode codeSystem="local" code="*" /> < referenceRange> <observationRange> <text>6.1-7.9</text> </observationRange> </referenceRange> </observation > </component> <component> <observation moodCode="EVN" classCode="OBS"> <templateId root="10.29.840.1.208799.07.02.22.4.2" /> <id nullFlavor="NA" /> <code codeSystem="local" code="NA" displayName="Sodium" /> <statusCode code="completed" /> < effectiveTime value="" /> <value unit="mEq/L" xsi:type="PQ " value="131" /> <interpretationCode codeSystem="local" code="*" /> <referenceRange> <observationRange> <text>136-144 </text> </observationRange> </referenceRange> </ observation> </component> </organizer> </entry> <entry> <organizer moodCode="EVN" classCode="BATTERY"> <templateId root= "16.840.1.632145.07.02.22.4.1" /> <id nullFlavor="NA" /> <code codeSystem="local" code="GFR" displayName="eGFR" /> <statusCode code= "completed" /> <component> <observation moodCode="EVN" classCode= "OBS"> <templateId root="16.840.1.799527.07.02.22.4.2" /> < id nullFlavor="NA" /> <code codeSystem="local" code="GFR" displayName= "eGFR" /> <statusCode code="completed" /> <effectiveTime value ="937775701259" /> <value unit="mL/min" xsi:type="PQ" value="60" /> <referenceRange> <observationRange> <text>>60< /text> </observationRange> </referenceRange> </ observation> </component> </organizer> </entry> <entry> <organizer moodCode="EVN" classCode="BATTERY"> <templateId root= "10.29.840.1.010753.10.4.1" /> <id nullFlavor="NA" /> <code codeSystem="local" code="GLUN" displayName="Glucose NPT" /> <statusCode code="completed" /> <component> <observation moodCode="EVN" classCode="OBS"> <templateId root="10.29.840.1.019844.22.4.2" /> <id nullFlavor="NA" /> <code codeSystem="local" code="GLUN" displayName="Glucose NPT" /> <statusCode code="completed" /> <effectiveTime value="783218020107" /> <value unit="mg/dL" xsi:type="PQ " value="109" /> <interpretationCode codeSystem="local" code="*" /> <referenceRange> <observationRange> <text>70-100< /text> </observationRange> </referenceRange> </ observation> </component> </organizer> </entry> <entry> <organizer moodCode="EVN" classCode="BATTERY"> <templateId root= "216.840.1.149635.10..22.4.1" /> <id nullFlavor="NA" /> <code codeSystem="local" code="GLUN" displayName="Glucose NPT" /> <statusCode code="completed" /> <component> <observation moodCode="EVN" classCode="OBS"> <templateId root="216.840.1.049331.10...4.2" /> <id nullFlavor="NA" /> <code codeSystem="local" code="GLUN" displayName="Glucose NPT" /> <statusCode code="completed" /> <effectiveTime value="075863073341" /> <value unit="mg/dL" xsi:type="PQ " value="174" /> <interpretationCode codeSystem="local" code="*" /> <referenceRange> <observationRange> <text>70-100< /text> </observationRange> </referenceRange> </ observation> </component> </organizer> </entry> <entry> <organizer moodCode="EVN" classCode="BATTERY"> <templateId root= "840.1.487574.07.02.22.4.1" /> <id nullFlavor="NA" /> <code codeSystem="local" code="PHOS" displayName="Phosphorus" /> <statusCode code ="completed" /> <component> <observation moodCode="EVN" classCode= "OBS"> <templateId root="840.1.592151.07.02.22.4.2" /> < id nullFlavor="NA" /> <code codeSystem="local" code="PHOS" displayName= "Phosphorus" /> <statusCode code="completed" /> < effectiveTime value="" /> <value unit="mg/dL" xsi:type="PQ " value="5.0" /> <interpretationCode codeSystem="local" code="*" /> <referenceRange> <observationRange> <text>2.4-4.7 </text> </observationRange> </referenceRange> </ observation> </component> </organizer> </entry> <entry> <organizer moodCode="EVN" classCode="BATTERY"> <templateId root= "840.1.725029.07.02.22.4.1" /> <id nullFlavor="NA" /> <code codeSystem="local" code="MG" displayName="Magnesium" /> <statusCode code= "completed" /> <component> <observation moodCode="EVN" classCode= "OBS"> <templateId root="840.1.732372.07.02.22.4.2" /> < id nullFlavor="NA" /> <code codeSystem="local" code="MG" displayName= "Magnesium" /> <statusCode code="completed" /> <effectiveTime value="" /> <value unit="mg/dL" xsi:type="PQ" value="1.7" / > <interpretationCode codeSystem="local" code="*" /> < referenceRange> <observationRange> <text>1.8-2.5</text> </observationRange> </referenceRange> </observation > </component> </organizer> </entry> <entry> <organizer moodCode= "EVN" classCode="BATTERY"> <templateId root="840.1.735105.1022.4.1 " /> <id nullFlavor="NA" /> <code codeSystem="local" code="CMP" displayName="Comprehensive Metabolic Panel (CMP)" /> <statusCode code= "completed" /> <component> <observation moodCode="EVN" classCode= "OBS"> <templateId root="840.1.754270.10.22.4.2" /> < id nullFlavor="NA" /> <code codeSystem="local" code="ALB" displayName= "Albumin" /> <statusCode code="completed" /> <effectiveTime value="" /> <value unit="g/dL" xsi:type="PQ" value="2.8" / > <interpretationCode codeSystem="local" code="*" /> < referenceRange> <observationRange> <text>3.5-4.8</text> </observationRange> </referenceRange> </observation > </component> <component> <observation moodCode="EVN" classCode="OBS"> <templateId root="10.29.840.1.327137.10.22.4.2" /> <id nullFlavor="NA" /> <code codeSystem="local" code="ALP" displayName="Alkaline Phosphatase" /> <statusCode code="completed" /> <effectiveTime value="223406239021" /> <value unit="U/L" xsi: type="PQ" value="101" /> <referenceRange> <observationRange > <text>26-104</text> </observationRange> </ referenceRange> </observation> </component> <component> <observation moodCode="EVN" classCode="OBS"> <templateId root= "16.840.1.677887.10.20.22.4.2" /> <id nullFlavor="NA" /> < code codeSystem="local" code="ALT" displayName="ALT (SGPT)" /> < statusCode code="completed" /> <effectiveTime value="" /> <value unit="U/L" xsi:type="PQ" value="96" /> < interpretationCode codeSystem="local" code="*" /> <referenceRange> <observationRange> <text>17-63</text> </ observationRange> </referenceRange> </observation> </ component> <component> <observation moodCode="EVN" classCode="OBS"> <templateId root="840.1.465278.10..4.2" /> <id nullFlavor="NA" /> <code codeSystem="local" code="AGAP" displayName= "Anion Gap" /> <statusCode code="completed" /> <effectiveTime value="" /> <value unit="mEq/L" xsi:type="PQ" value="13" / > <referenceRange> <observationRange> <text>3- 20</text> </observationRange> </referenceRange> </ observation> </component> <component> <observation moodCode= "EVN" classCode="OBS"> <templateId root="10.29.840.1.262468.10.20.22.4.2 " /> <id nullFlavor="NA" /> <code codeSystem="local" code="AST " displayName="AST (SGOT)" /> <statusCode code="completed" /> <effectiveTime value="" /> <value unit="U/L" xsi:type="PQ" value="46" /> <interpretationCode codeSystem="local" code="*" /> <referenceRange> <observationRange> <text>15-41</ text> </observationRange> </referenceRange> </ observation> </component> <component> <observation moodCode= "EVN" classCode="OBS"> <templateId root="216.840.1.627144.10.20.22.4.2 " /> <id nullFlavor="NA" /> <code codeSystem="local" code= "BILIT" displayName="Bilirubin Total" /> <statusCode code="completed" / > <effectiveTime value="" /> <value unit="mg/dL" xsi:type="PQ" value="1.5" /> <interpretationCode codeSystem="local" code="*" /> <referenceRange> <observationRange> <text>0.2-1.2</text> </observationRange> </referenceRange > </observation> </component> <component> <observation moodCode="EVN" classCode="OBS"> <templateId root= "216.840.1.536725.10.20.22.4.2" /> <id nullFlavor="NA" /> < code codeSystem="local" code="BUN" displayName="BUN" /> <statusCode code="completed" /> <effectiveTime value="" /> < value unit="mg/dL" xsi:type="PQ" value="18" /> <referenceRange> <observationRange> <text>4-20</text> </ observationRange> </referenceRange> </observation> </ component> <component> <observation moodCode="EVN" classCode="OBS"> <templateId root="10.29.840.1.110572.10.20.22.4.2" /> <id nullFlavor="NA" /> <code codeSystem="local" code="CA" displayName= "Calcium" /> <statusCode code="completed" /> <effectiveTime value="" /> <value unit="mg/dL" xsi:type="PQ" value="8.5" / > <interpretationCode codeSystem="local" code="*" /> < referenceRange> <observationRange> <text>8.6-10.0</text > </observationRange> </referenceRange> </observation > </component> <component> <observation moodCode="EVN" classCode="OBS"> <templateId root="10.29.840.1.227117.10..22.4.2" /> <id nullFlavor="NA" /> <code codeSystem="local" code="CL" displayName="Chloride" /> <statusCode code="completed" /> < effectiveTime value="" /> <value unit="mEq/L" xsi:type="PQ " value="98" /> <interpretationCode codeSystem="local" code="*" /> <referenceRange> <observationRange> <text>99-109</ text> </observationRange> </referenceRange> </ observation> </component> <component> <observation moodCode= "EVN" classCode="OBS"> <templateId root="10.29.840.1.352092.10.20.22.4.2 " /> <id nullFlavor="NA" /> <code codeSystem="local" code="CO2 " displayName="CO2" /> <statusCode code="completed" /> < effectiveTime value="" /> <value unit="mEq/L" xsi:type="PQ " value="23" /> <referenceRange> <observationRange> <text>22-32</text> </observationRange> </ referenceRange> </observation> </component> <component> <observation moodCode="EVN" classCode="OBS"> <templateId root= "16.840.1.422026.10.22.4.2" /> <id nullFlavor="NA" /> < code codeSystem="local" code="CREAT" displayName="Creatinine" /> < statusCode code="completed" /> <effectiveTime value="" /> <value unit="mg/dL" xsi:type="PQ" value="1.23" /> < referenceRange> <observationRange> <text>0.64-1.27</text > </observationRange> </referenceRange> </observation > </component> <component> <observation moodCode="EVN" classCode="OBS"> <templateId root="10.29.840.1.281834.10.4.2" /> <id nullFlavor="NA" /> <code codeSystem="local" code="GLOB" displayName="Globulin" /> <statusCode code="completed" /> < effectiveTime value="" /> <value unit="g/dL" xsi:type="PQ" value="3.3" /> <referenceRange> <observationRange> <text>1.9-4.3</text> </observationRange> </ referenceRange> </observation> </component> <component> <observation moodCode="EVN" classCode="OBS"> <templateId root= "10.29.840.1.461960.1022.4.2" /> <id nullFlavor="NA" /> < code codeSystem="local" code="GLU" displayName="Glucose" /> < statusCode code="completed" /> <effectiveTime value="" /> <value unit="mg/dL" xsi:type="PQ" value="174" /> < interpretationCode codeSystem="local" code="*" /> <referenceRange> <observationRange> <text>70-100</text> </ observationRange> </referenceRange> </observation> </ component> <component> <observation moodCode="EVN" classCode="OBS"> <templateId root="10.29.840.1.688429.22.4.2" /> <id nullFlavor="NA" /> <code codeSystem="local" code="K" displayName= "Potassium" /> <statusCode code="completed" /> <effectiveTime value="" /> <value unit="mEq/L" xsi:type="PQ" value="3.7" / > <referenceRange> <observationRange> <text>3.6 -5.1</text> </observationRange> </referenceRange> </ observation> </component> <component> <observation moodCode= "EVN" classCode="OBS"> <templateId root="840.1.974757.07.02.22.4.2 " /> <id nullFlavor="NA" /> <code codeSystem="local" code="TP " displayName="Protein" /> <statusCode code="completed" /> < effectiveTime value="" /> <value unit="g/dL" xsi:type="PQ" value="6.1" /> <referenceRange> <observationRange> <text>6.1-7.9</text> </observationRange> </ referenceRange> </observation> </component> <component> <observation moodCode="EVN" classCode="OBS"> <templateId root= "10.29.840.1.884168.22.4.2" /> <id nullFlavor="NA" /> < code codeSystem="local" code="NA" displayName="Sodium" /> <statusCode code="completed" /> <effectiveTime value="" /> < value unit="mEq/L" xsi:type="PQ" value="134" /> <interpretationCode codeSystem="local" code="*" /> <referenceRange> < observationRange> <text>136-144</text> </ observationRange> </referenceRange> </observation> </ component> </organizer> </entry> <entry> <organizer moodCode="EVN" classCode="BATTERY"> <templateId root="216.840.1.347460.10..22.4.1" /> <id nullFlavor="NA" /> <code codeSystem="local" code="GFR" displayName ="eGFR" /> <statusCode code="completed" /> <component> < observation moodCode="EVN" classCode="OBS"> <templateId root= "16.840.1.915591.10..22.4.2" /> <id nullFlavor="NA" /> < code codeSystem="local" code="GFR" displayName="eGFR" /> <statusCode code="completed" /> <effectiveTime value="[id number]" /> < value unit="mL/min" xsi:type="PQ" value=">60" /> <referenceRange> <observationRange> <text>>60</text> </ observationRange> </referenceRange> </observation> </ component> </organizer> </entry> <entry> <organizer moodCode="EVN" classCode="BATTERY"> <templateId root="16.840.1.737734.10..22.4.1" /> <id nullFlavor="NA" /> <code codeSystem="local" code="CBCWD" displayName="CBC With Platelet and Differential" /> <statusCode code= "completed" /> <component> <observation moodCode="EVN" classCode= "OBS"> <templateId root="840.1.766364.10.2022.4.2" /> < id nullFlavor="NA" /> <code codeSystem="local" code="HCT" displayName= "HCT" /> <statusCode code="completed" /> <effectiveTime value= "" /> <value unit="%" xsi:type="PQ" value="35.9" /> <interpretationCode codeSystem="local" code="*" /> < referenceRange> <observationRange> <text>42.0-52.0</text > </observationRange> </referenceRange> </observation > </component> <component> <observation moodCode="EVN" classCode="OBS"> <templateId root="840.1.252218.10.22.4.2" /> <id nullFlavor="NA" /> <code codeSystem="local" code="HGB" displayName="HGB" /> <statusCode code="completed" /> < effectiveTime value="217563556235" /> <value unit="g/dL" xsi:type="PQ" value="11.8" /> <interpretationCode codeSystem="local" code="*" /> <referenceRange> <observationRange> <text>14.0- 18.0</text> </observationRange> </referenceRange> </ observation> </component> <component> <observation moodCode= "EVN" classCode="OBS"> <templateId root="10.29.840.1.840707.10.2022.4.2 " /> <id nullFlavor="NA" /> <code codeSystem="local" code="MCH " displayName="MCH" /> <statusCode code="completed" /> < effectiveTime value="" /> <value unit="pg" xsi:type="PQ" value="29.4" /> <referenceRange> <observationRange> <text>27.0-32.0</text> </observationRange> </ referenceRange> </observation> </component> <component> <observation moodCode="EVN" classCode="OBS"> <templateId root= "216.840.1.405489.10..4.2" /> <id nullFlavor="NA" /> < code codeSystem="local" code="MCHC" displayName="MCHC" /> <statusCode code="completed" /> <effectiveTime value="" /> < value unit="g/dL" xsi:type="PQ" value="32.9" /> <referenceRange> <observationRange> <text>32.0-36.0</text> </ observationRange> </referenceRange> </observation> </ component> <component> <observation moodCode="EVN" classCode="OBS"> <templateId root="10.29.840.1.547360.07.02.22.4.2" /> <id nullFlavor="NA" /> <code codeSystem="local" code="MCV" displayName="MCV " /> <statusCode code="completed" /> <effectiveTime value= "" /> <value unit="fL" xsi:type="PQ" value="89.5" /> <referenceRange> <observationRange> <text>82.0-99.0< /text> </observationRange> </referenceRange> </ observation> </component> <component> <observation moodCode= "EVN" classCode="OBS"> <templateId root="10.29.840.1.383367.07.02.22.4.2 " /> <id nullFlavor="NA" /> <code codeSystem="local" code="MPV " displayName="MPV" /> <statusCode code="completed" /> < effectiveTime value="944685482835" /> <value unit="fL" xsi:type="PQ" value="10.3" /> <referenceRange> <observationRange> <text>9.4-12.3</text> </observationRange> </ referenceRange> </observation> </component> <component> <observation moodCode="EVN" classCode="OBS"> <templateId root= "216.840.1.570085.07.02.22.4.2" /> <id nullFlavor="NA" /> < code codeSystem="local" code="PLT" displayName="Platelet Count" /> < statusCode code="completed" /> <effectiveTime value="" /> <value unit="K/uL" xsi:type="PQ" value="171" /> < referenceRange> <observationRange> <text>150-400</text> </observationRange> </referenceRange> </observation > </component> <component> <observation moodCode="EVN" classCode="OBS"> <templateId root="216.840.1.801531.07.02.22.4.2" /> <id nullFlavor="NA" /> <code codeSystem="local" code="RBC" displayName="RBC" /> <statusCode code="completed" /> < effectiveTime value="343612276583" /> <value unit="10*6/uL" xsi:type= "PQ" value="4.01" /> <interpretationCode codeSystem="local" code="*" / > <referenceRange> <observationRange> <text> 4.60-6.20</text> </observationRange> </referenceRange> </observation> </component> <component> <observation moodCode="EVN" classCode="OBS"> <templateId root= "216.840.1.097455.10..22.4.2" /> <id nullFlavor="NA" /> < code codeSystem="local" code="RDW" displayName="RDW" /> <statusCode code="completed" /> <effectiveTime value="" /> < value unit="%" xsi:type="PQ" value="16.8" /> <interpretationCode codeSystem="local" code="*" /> <referenceRange> < observationRange> <text>11.5-14.5</text> </ observationRange> </referenceRange> </observation> </ component> <component> <observation moodCode="EVN" classCode="OBS"> <templateId root="16.840.1.774933.07.02.22.4.2" /> <id nullFlavor="NA" /> <code codeSystem="local" code="WBCIR" displayName= "WBC" /> <statusCode code="completed" /> <effectiveTime value= "" /> <value unit="K/uL" xsi:type="PQ" value="6.9" /> <referenceRange> <observationRange> <text>4.8-10.8< /text> </observationRange> </referenceRange> </ observation> </component> </organizer> </entry> <entry> <organizer moodCode="EVN" classCode="BATTERY"> <templateId root= "216.840.1.471670.10.2022.4.1" /> <id nullFlavor="NA" /> <code codeSystem="local" code="BNP" displayName="B-Type Natriuretic Peptide" /> < statusCode code="completed" /> <component> <observation moodCode= "EVN" classCode="OBS"> <templateId root="2.16.840.1.496498.10..22.4.2 " /> <id nullFlavor="NA" /> <code codeSystem="local" code="BNP " displayName="B-Type Natriuretic Peptide" /> <statusCode code= "completed" /> <effectiveTime value="880575003058" /> <value unit="pg/mL" xsi:type="PQ" value="1729" /> <interpretationCode codeSystem="local" code="*" /> <referenceRange> < observationRange> <text>0-99</text> </observationRange> </referenceRange> </observation> </component> </ organizer> </entry> <entry> <organizer moodCode="EVN" classCode="BATTERY"> <templateId root="2.16.840.1.640167.10..22.4.1" /> <id nullFlavor= "NA" /> <code codeSystem="local" code="ABGRT" displayName="Blood Gases, Arterial (RT)" /> <statusCode code="completed" /> <component> < observation moodCode="EVN" classCode="OBS"> <templateId root= "2.16.840.1.752135.10..22.4.2" /> <id nullFlavor="NA" /> < code codeSystem="local" code="YNES" displayName="Arterial Base Excess" /> <statusCode code="completed" /> <effectiveTime value="984470921836" /> <value unit="NA" xsi:type="PQ" value="-1" /> < interpretationCode codeSystem="local" code="*" /> <referenceRange> <observationRange> <text>0-2</text> </ observationRange> </referenceRange> </observation> </ component> <component> <observation moodCode="EVN" classCode="OBS"> <templateId root="216.840.1.880550.10..22.4.2" /> <id nullFlavor="NA" /> <code codeSystem="local" code="AHCO3" displayName= "Arterial Bicarbonate" /> <statusCode code="completed" /> < effectiveTime value="" /> <value unit="mEq/L" xsi:type="PQ " value="22" /> <referenceRange> <observationRange> <text>22-26</text> </observationRange> </ referenceRange> </observation> </component> <component> <observation moodCode="EVN" classCode="OBS"> <templateId root= "16.840.1.987566.10...4.2" /> <id nullFlavor="NA" /> < code codeSystem="local" code="AOSAT" displayName="Arterial O2 Saturation" /> <statusCode code="completed" /> <effectiveTime value= "" /> <value unit="%" xsi:type="PQ" value="96.9" /> <referenceRange> <observationRange> <text>90.0- 97.0</text> </observationRange> </referenceRange> </ observation> </component> <component> <observation moodCode= "EVN" classCode="OBS"> <templateId root="16.840.1.682655.10..22.4.2 " /> <id nullFlavor="NA" /> <code codeSystem="local" code= "APCO2" displayName="Arterial PCO2" /> <statusCode code="completed" /> <effectiveTime value="" /> <value unit="mmHg" xsi :type="PQ" value="29" /> <interpretationCode codeSystem="local" code="* " /> <referenceRange> <observationRange> <text> 35-45</text> </observationRange> </referenceRange> </ observation> </component> <component> <observation moodCode= "EVN" classCode="OBS"> <templateId root="10.29.840.1.670636.10.20.22.4.2 " /> <id nullFlavor="NA" /> <code codeSystem="local" code="APH " displayName="Arterial PH" /> <statusCode code="completed" /> <effectiveTime value="" /> <value unit="NA" xsi:type="PQ " value="7.48" /> <interpretationCode codeSystem="local" code="*" /> <referenceRange> <observationRange> <text>7.35- 7.45</text> </observationRange> </referenceRange> </ observation> </component> <component> <observation moodCode= "EVN" classCode="OBS"> <templateId root="840.1.108008...4.2 " /> <id nullFlavor="NA" /> <code codeSystem="local" code= "APO2" displayName="Arterial PO2" /> <statusCode code="completed" /> <effectiveTime value="" /> <value unit="mmHg" xsi: type="PQ" value="82" /> <referenceRange> <observationRange> <text>80-100</text> </observationRange> </ referenceRange> </observation> </component> <component> <observation moodCode="EVN" classCode="OBS"> <templateId root= "10.29.840.1.460783.10.20.22.4.2" /> <id nullFlavor="NA" /> < code codeSystem="local" code="AFLOW" displayName="Arterial LPM" /> < statusCode code="completed" /> <effectiveTime value="" /> <value unit="L/min" xsi:type="PQ" value="2.00" /> < referenceRange> <observationRange> <text /> < /observationRange> </referenceRange> </observation> </ component> <component> <observation moodCode="EVN" classCode="OBS"> <templateId root="10.29.840.1.451075.07.02.22.4.2" /> <id nullFlavor="NA" /> <code codeSystem="local" code="AO2PN" displayName= "O2 Panel" /> <statusCode code="completed" /> <effectiveTime value="" /> <value unit="" xsi:type="PQ" value="Nasal Cannula" /> <referenceRange> <observationRange> <text /> </observationRange> </referenceRange> </ observation> </component> </organizer> </entry> <entry> <organizer moodCode="EVN" classCode="BATTERY"> <templateId root= "10.29.840.1.509380.07.02.22.4.1" /> <id nullFlavor="NA" /> <code codeSystem="local" code="UDRGH" displayName="Urine Drug Screen" /> < statusCode code="completed" /> <component> <observation moodCode= "EVN" classCode="OBS"> <templateId root="840.1.458119.10.4.2 " /> <id nullFlavor="NA" /> <code codeSystem="local" code= "UAMP1" displayName="Amph/Meth/Ecstasy" /> <statusCode code="completed " /> <effectiveTime value="" /> <value unit="NA" xsi:type="PQ" value="Negative" /> <referenceRange> < observationRange> <text /> </observationRange> </referenceRange> </observation> </component> <component> <observation moodCode="EVN" classCode="OBS"> <templateId root= "16.840.1.747601.10.22.4.2" /> <id nullFlavor="NA" /> < code codeSystem="local" code="UBAR1" displayName="Barbiturates" /> < statusCode code="completed" /> <effectiveTime value="370572617653" /> <value unit="NA" xsi:type="PQ" value="Negative" /> < referenceRange> <observationRange> <text /> < /observationRange> </referenceRange> </observation> </ component> <component> <observation moodCode="EVN" classCode="OBS"> <templateId root="10.29.840.1.729925.10.4.2" /> <id nullFlavor="NA" /> <code codeSystem="local" code="UBEN1" displayName= "Benzodiazepine" /> <statusCode code="completed" /> < effectiveTime value="735831729165" /> <value unit="NA" xsi:type="PQ" value="Negative" /> <referenceRange> <observationRange> <text /> </observationRange> </referenceRange> </observation> </component> <component> <observation moodCode="EVN" classCode="OBS"> <templateId root= "10.29.840.1.226567.1022.4.2" /> <id nullFlavor="NA" /> < code codeSystem="local" code="UCAN1" displayName="Cannabinoid" /> < statusCode code="completed" /> <effectiveTime value="885130565922" /> <value unit="NA" xsi:type="PQ" value="Negative" /> < referenceRange> <observationRange> <text /> < /observationRange> </referenceRange> </observation> </ component> <component> <observation moodCode="EVN" classCode="OBS"> <templateId root="16.840.1.624336.10..4.2" /> <id nullFlavor="NA" /> <code codeSystem="local" code="UCOC1" displayName= "Cocaine" /> <statusCode code="completed" /> <effectiveTime value="" /> <value unit="NA" xsi:type="PQ" value="Negative " /> <referenceRange> <observationRange> <text /> </observationRange> </referenceRange> </ observation> </component> <component> <observation moodCode= "EVN" classCode="OBS"> <templateId root="10.29.840.1.662805.10.4.2 " /> <id nullFlavor="NA" /> <code codeSystem="local" code= "UMTD1" displayName="EDDP (Methadone met.)" /> <statusCode code= "completed" /> <effectiveTime value="" /> <value unit="NA" xsi:type="PQ" value="Negative" /> <referenceRange> <observationRange> <text /> </observationRange> </referenceRange> </observation> </component> <component> <observation moodCode="EVN" classCode="OBS"> <templateId root= "10.29.840.1.197342.1022.4.2" /> <id nullFlavor="NA" /> < code codeSystem="local" code="UOPI1" displayName="Opiate" /> < statusCode code="completed" /> <effectiveTime value="218173039674" /> <value unit="NA" xsi:type="PQ" value="Negative" /> < referenceRange> <observationRange> <text /> < /observationRange> </referenceRange> </observation> </ component> <component> <observation moodCode="EVN" classCode="OBS"> <templateId root="16.840.1.936493.10..4.2" /> <id nullFlavor="NA" /> <code codeSystem="local" code="UPCP1" displayName= "Phencyclidine (PCP)" /> <statusCode code="completed" /> < effectiveTime value="" /> <value unit="NA" xsi:type="PQ" value="Negative" /> <referenceRange> <observationRange> <text /> </observationRange> </referenceRange> </observation> </component> </organizer> </entry> <entry> < organizer moodCode="EVN" classCode="BATTERY"> <templateId root= "16.840.1.337498.10..4.1" /> <id nullFlavor="NA" /> <code codeSystem="local" code="GLUN" displayName="Glucose NPT" /> <statusCode code="completed" /> <component> <observation moodCode="EVN" classCode="OBS"> <templateId root="10.29.840.1.318804...4.2" /> <id nullFlavor="NA" /> <code codeSystem="local" code="GLUN" displayName="Glucose NPT" /> <statusCode code="completed" /> <effectiveTime value="" /> <value unit="mg/dL" xsi:type="PQ " value="173" /> <interpretationCode codeSystem="local" code="*" /> <referenceRange> <observationRange> <text>70-100< /text> </observationRange> </referenceRange> </ observation> </component> </organizer> </entry> <entry> <organizer moodCode="EVN" classCode="BATTERY"> <templateId root= "16.840.1.830493.10.22.4.1" /> <id nullFlavor="NA" /> <code codeSystem="local" code="GLUN" displayName="Glucose NPT" /> <statusCode code="completed" /> <component> <observation moodCode="EVN" classCode="OBS"> <templateId root="840.1.576027.07.02.22.4.2" /> <id nullFlavor="NA" /> <code codeSystem="local" code="GLUN" displayName="Glucose NPT" /> <statusCode code="completed" /> <effectiveTime value="355469548332" /> <value unit="mg/dL" xsi:type="PQ " value="148" /> <interpretationCode codeSystem="local" code="*" /> <referenceRange> <observationRange> <text>70-100< /text> </observationRange> </referenceRange> </ observation> </component> </organizer> </entry> <entry> <organizer moodCode="EVN" classCode="BATTERY"> <templateId root= "10.29.840.1.289245.07.02.22.4.1" /> <id nullFlavor="NA" /> <code codeSystem="local" code="CBCWD" displayName="CBC With Platelet and Differential " /> <statusCode code="completed" /> <component> <observation moodCode="EVN" classCode="OBS"> <templateId root= "10.29.840.1.843327.22.4.2" /> <id nullFlavor="NA" /> < code codeSystem="local" code="ABASR" displayName="Absolute Basophils" /> <statusCode code="completed" /> <effectiveTime value="" /> <value unit="10*3/uL" xsi:type="PQ" value="0.02" /> < referenceRange> <observationRange> <text>0.00-0.20</text > </observationRange> </referenceRange> </observation > </component> <component> <observation moodCode="EVN" classCode="OBS"> <templateId root="2.16.840.1.872996....4.2" /> <id nullFlavor="NA" /> <code codeSystem="local" code="AEOSR" displayName="Absolute Eosinophils" /> <statusCode code="completed" /> <effectiveTime value="" /> <value unit="10*3/uL" xsi:type="PQ" value="0.00" /> <referenceRange> < observationRange> <text>0.00-0.50</text> </ observationRange> </referenceRange> </observation> </ component> <component> <observation moodCode="EVN" classCode="OBS"> <templateId root="2.16.840.1.153145....4.2" /> <id nullFlavor="NA" /> <code codeSystem="local" code="ALYMR" displayName= "Absolute Lymphocytes" /> <statusCode code="completed" /> < effectiveTime value="" /> <value unit="10*3/uL" xsi:type= "PQ" value="0.82" /> <referenceRange> <observationRange> <text>0.80-3.30</text> </observationRange> </ referenceRange> </observation> </component> <component> <observation moodCode="EVN" classCode="OBS"> <templateId root= "16.840.1.755079.10.22.4.2" /> <id nullFlavor="NA" /> < code codeSystem="local" code="AMONR" displayName="Absolute Monocytes" /> <statusCode code="completed" /> <effectiveTime value="" /> <value unit="10*3/uL" xsi:type="PQ" value="2.22" /> < interpretationCode codeSystem="local" code="*" /> <referenceRange> <observationRange> <text>0.30-1.00</text> </ observationRange> </referenceRange> </observation> </ component> <component> <observation moodCode="EVN" classCode="OBS"> <templateId root="10.29.840.1.732004.07.02.224.2" /> <id nullFlavor="NA" /> <code codeSystem="local" code="ASEGR" displayName= "Absolute Neutrophils" /> <statusCode code="completed" /> < effectiveTime value="" /> <value unit="10*3/uL" xsi:type= "PQ" value="9.23" /> <interpretationCode codeSystem="local" code="*" / > <referenceRange> <observationRange> <text> 1.90-7.00</text> </observationRange> </referenceRange> </observation> </component> <component> <observation moodCode="EVN" classCode="OBS"> <templateId root= "10.29.840.1.353101.1022.4.2" /> <id nullFlavor="NA" /> < code codeSystem="local" code="BASOR" displayName="Basophils" /> < statusCode code="completed" /> <effectiveTime value="" /> <value unit="%" xsi:type="PQ" value="0" /> <referenceRange > <observationRange> <text>0-2</text> </ observationRange> </referenceRange> </observation> </ component> <component> <observation moodCode="EVN" classCode="OBS"> <templateId root="16.840.1.125404.10...4.2" /> <id nullFlavor="NA" /> <code codeSystem="local" code="EOSR" displayName= "Eosinophils" /> <statusCode code="completed" /> < effectiveTime value="" /> <value unit="%" xsi:type="PQ " value="0" /> <referenceRange> <observationRange> <text>0-4</text> </observationRange> </referenceRange> </observation> </component> <component> <observation moodCode="EVN" classCode="OBS"> <templateId root= "16.840.1.771241.10..4.2" /> <id nullFlavor="NA" /> < code codeSystem="local" code="HCT" displayName="HCT" /> <statusCode code="completed" /> <effectiveTime value="" /> < value unit="%" xsi:type="PQ" value="33.5" /> <interpretationCode codeSystem="local" code="*" /> <referenceRange> < observationRange> <text>42.0-52.0</text> </ observationRange> </referenceRange> </observation> </ component> <component> <observation moodCode="EVN" classCode="OBS"> <templateId root="16.840.1.329091.10..22.4.2" /> <id nullFlavor="NA" /> <code codeSystem="local" code="HGB" displayName="HGB " /> <statusCode code="completed" /> <effectiveTime value= "" /> <value unit="g/dL" xsi:type="PQ" value="10.7" /> <interpretationCode codeSystem="local" code="*" /> < referenceRange> <observationRange> <text>14.0-18.0</text > </observationRange> </referenceRange> </observation > </component> <component> <observation moodCode="EVN" classCode="OBS"> <templateId root="2.16.840.1.495985.07.02.22.4.2" /> <id nullFlavor="NA" /> <code codeSystem="local" code="IMGA" displayName="Immature Granulocytes" /> <statusCode code="completed" /> <effectiveTime value="" /> <value unit="%" xsi:type="PQ" value="0.6" /> <referenceRange> < observationRange> <text>0.0-1.0</text> </ observationRange> </referenceRange> </observation> </ component> <component> <observation moodCode="EVN" classCode="OBS"> <templateId root="2.16.840.1.707786.22.4.2" /> <id nullFlavor="NA" /> <code codeSystem="local" code="LYMPR" displayName= "Lymphocytes" /> <statusCode code="completed" /> < effectiveTime value="" /> <value unit="%" xsi:type="PQ " value="7" /> <interpretationCode codeSystem="local" code="*" /> <referenceRange> <observationRange> <text>20-46</ text> </observationRange> </referenceRange> </ observation> </component> <component> <observation moodCode= "EVN" classCode="OBS"> <templateId root="16.840.1.215217.10.22.4.2 " /> <id nullFlavor="NA" /> <code codeSystem="local" code="MCH " displayName="MCH" /> <statusCode code="completed" /> < effectiveTime value="" /> <value unit="pg" xsi:type="PQ" value="29.0" /> <referenceRange> <observationRange> <text>27.0-32.0</text> </observationRange> </ referenceRange> </observation> </component> <component> <observation moodCode="EVN" classCode="OBS"> <templateId root= "10.29.840.1.917956.07.02.224.2" /> <id nullFlavor="NA" /> < code codeSystem="local" code="MCHC" displayName="MCHC" /> <statusCode code="completed" /> <effectiveTime value="" /> < value unit="g/dL" xsi:type="PQ" value="31.9" /> <interpretationCode codeSystem="local" code="*" /> <referenceRange> < observationRange> <text>32.0-36.0</text> </ observationRange> </referenceRange> </observation> </ component> <component> <observation moodCode="EVN" classCode="OBS"> <templateId root="10.29.840.1.559029.1022.4.2" /> <id nullFlavor="NA" /> <code codeSystem="local" code="MCV" displayName="MCV " /> <statusCode code="completed" /> <effectiveTime value= "432690315738" /> <value unit="fL" xsi:type="PQ" value="90.8" /> <referenceRange> <observationRange> <text>82.0-99.0< /text> </observationRange> </referenceRange> </ observation> </component> <component> <observation moodCode= "EVN" classCode="OBS"> <templateId root="16.840.1.264744.10.22.4.2 " /> <id nullFlavor="NA" /> <code codeSystem="local" code= "MONOR" displayName="Monocytes" /> <statusCode code="completed" /> <effectiveTime value="243293092017" /> <value unit="%" xsi: type="PQ" value="18" /> <interpretationCode codeSystem="local" code="* " /> <referenceRange> <observationRange> <text> 4-11</text> </observationRange> </referenceRange> </ observation> </component> <component> <observation moodCode= "EVN" classCode="OBS"> <templateId root="840.1.566524.1022.4.2 " /> <id nullFlavor="NA" /> <code codeSystem="local" code="MPV " displayName="MPV" /> <statusCode code="completed" /> < effectiveTime value="992843677904" /> <value unit="fL" xsi:type="PQ" value="10.1" /> <referenceRange> <observationRange> <text>9.4-12.3</text> </observationRange> </ referenceRange> </observation> </component> <component> <observation moodCode="EVN" classCode="OBS"> <templateId root= "10.29.840.1.049451.10.20.22.4.2" /> <id nullFlavor="NA" /> < code codeSystem="local" code="SEGR" displayName="Neutrophils" /> < statusCode code="completed" /> <effectiveTime value="" /> <value unit="%" xsi:type="PQ" value="75" /> < referenceRange> <observationRange> <text>51-75</text> </observationRange> </referenceRange> </observation> </component> <component> <observation moodCode="EVN" classCode= "OBS"> <templateId root="16.840.1.306458.10..4.2" /> < id nullFlavor="NA" /> <code codeSystem="local" code="NRBCA" displayName ="Nucleated RBC Automated" /> <statusCode code="completed" /> <effectiveTime value="" /> <value unit="/100WBC" xsi:type= "PQ" value="0.0" /> <referenceRange> <observationRange> <text /> </observationRange> </referenceRange> </observation> </component> <component> <observation moodCode="EVN" classCode="OBS"> <templateId root= "16.840.1.146422.22.4.2" /> <id nullFlavor="NA" /> < code codeSystem="local" code="PLT" displayName="Platelet Count" /> < statusCode code="completed" /> <effectiveTime value="" /> <value unit="K/uL" xsi:type="PQ" value="214" /> < referenceRange> <observationRange> <text>150-400</text> </observationRange> </referenceRange> </observation > </component> <component> <observation moodCode="EVN" classCode="OBS"> <templateId root="10.29.840.1.242907.10.20.22.4.2" /> <id nullFlavor="NA" /> <code codeSystem="local" code="RBC" displayName="RBC" /> <statusCode code="completed" /> < effectiveTime value="570941105172" /> <value unit="10*6/uL" xsi:type= "PQ" value="3.69" /> <interpretationCode codeSystem="local" code="*" / > <referenceRange> <observationRange> <text> 4.60-6.20</text> </observationRange> </referenceRange> </observation> </component> <component> <observation moodCode="EVN" classCode="OBS"> <templateId root= "10.29.840.1.377936.1022.4.2" /> <id nullFlavor="NA" /> < code codeSystem="local" code="RDW" displayName="RDW" /> <statusCode code="completed" /> <effectiveTime value="" /> < value unit="%" xsi:type="PQ" value="17.2" /> <interpretationCode codeSystem="local" code="*" /> <referenceRange> < observationRange> <text>11.5-14.5</text> </ observationRange> </referenceRange> </observation> </ component> <component> <observation moodCode="EVN" classCode="OBS"> <templateId root="10.29.840.1.524956.10.2022.4.2" /> <id nullFlavor="NA" /> <code codeSystem="local" code="WBCIR" displayName= "WBC" /> <statusCode code="completed" /> <effectiveTime value= "653736648451" /> <value unit="K/uL" xsi:type="PQ" value="12.4" /> <interpretationCode codeSystem="local" code="*" /> < referenceRange> <observationRange> <text>4.8-10.8</text > </observationRange> </referenceRange> </observation > </component> </organizer> </entry> <entry> <organizer moodCode= "EVN" classCode="BATTERY"> <templateId root="16.840.1.896869.10...4.1 " /> <id nullFlavor="NA" /> <code codeSystem="local" code="CMP" displayName="Comprehensive Metabolic Panel (CMP)" /> <statusCode code= "completed" /> <component> <observation moodCode="EVN" classCode= "OBS"> <templateId root="10.29.840.1.924659.10..4.2" /> < id nullFlavor="NA" /> <code codeSystem="local" code="ALB" displayName= "Albumin" /> <statusCode code="completed" /> <effectiveTime value="279715098445" /> <value unit="g/dL" xsi:type="PQ" value="2.6" / > <interpretationCode codeSystem="local" code="*" /> < referenceRange> <observationRange> <text>3.5-4.8</text> </observationRange> </referenceRange> </observation > </component> <component> <observation moodCode="EVN" classCode="OBS"> <templateId root="10.29.840.1.907783.10..4.2" /> <id nullFlavor="NA" /> <code codeSystem="local" code="ALP" displayName="Alkaline Phosphatase" /> <statusCode code="completed" /> <effectiveTime value="137013100846" /> <value unit="U/L" xsi: type="PQ" value="104" /> <referenceRange> <observationRange > <text>26-104</text> </observationRange> </ referenceRange> </observation> </component> <component> <observation moodCode="EVN" classCode="OBS"> <templateId root= "10.29.840.1.042972.10..22.4.2" /> <id nullFlavor="NA" /> < code codeSystem="local" code="ALT" displayName="ALT (SGPT)" /> < statusCode code="completed" /> <effectiveTime value="824533505069" /> <value unit="U/L" xsi:type="PQ" value="79" /> < interpretationCode codeSystem="local" code="*" /> <referenceRange> <observationRange> <text>17-63</text> </ observationRange> </referenceRange> </observation> </ component> <component> <observation moodCode="EVN" classCode="OBS"> <templateId root="840.1.198632.10..4.2" /> <id nullFlavor="NA" /> <code codeSystem="local" code="AGAP" displayName= "Anion Gap" /> <statusCode code="completed" /> <effectiveTime value="051043154221" /> <value unit="mEq/L" xsi:type="PQ" value="12" / > <referenceRange> <observationRange> <text>3- 20</text> </observationRange> </referenceRange> </ observation> </component> <component> <observation moodCode= "EVN" classCode="OBS"> <templateId root="10.29.840.1.363983.10..22.4.2 " /> <id nullFlavor="NA" /> <code codeSystem="local" code="AST " displayName="AST (SGOT)" /> <statusCode code="completed" /> <effectiveTime value="810093827526" /> <value unit="U/L" xsi:type="PQ" value="35" /> <referenceRange> <observationRange> <text>15-41</text> </observationRange> </referenceRange > </observation> </component> <component> <observation moodCode="EVN" classCode="OBS"> <templateId root= "216.840.1.067878.1022.4.2" /> <id nullFlavor="NA" /> < code codeSystem="local" code="BILIT" displayName="Bilirubin Total" /> < statusCode code="completed" /> <effectiveTime value="945307145823" /> <value unit="mg/dL" xsi:type="PQ" value="1.3" /> < interpretationCode codeSystem="local" code="*" /> <referenceRange> <observationRange> <text>0.2-1.2</text> </ observationRange> </referenceRange> </observation> </ component> <component> <observation moodCode="EVN" classCode="OBS"> <templateId root="216.840.1.826033.10..22.4.2" /> <id nullFlavor="NA" /> <code codeSystem="local" code="BUN" displayName="BUN " /> <statusCode code="completed" /> <effectiveTime value= "323355964688" /> <value unit="mg/dL" xsi:type="PQ" value="25" /> <interpretationCode codeSystem="local" code="*" /> <referenceRange > <observationRange> <text>4-20</text> </ observationRange> </referenceRange> </observation> </ component> <component> <observation moodCode="EVN" classCode="OBS"> <templateId root="2.16.840.1.686137.10..22.4.2" /> <id nullFlavor="NA" /> <code codeSystem="local" code="CA" displayName= "Calcium" /> <statusCode code="completed" /> <effectiveTime value="969610844401" /> <value unit="mg/dL" xsi:type="PQ" value="8.4" / > <interpretationCode codeSystem="local" code="*" /> < referenceRange> <observationRange> <text>8.6-10.0</text > </observationRange> </referenceRange> </observation > </component> <component> <observation moodCode="EVN" classCode="OBS"> <templateId root="10.29.840.1.350013...4.2" /> <id nullFlavor="NA" /> <code codeSystem="local" code="CL" displayName="Chloride" /> <statusCode code="completed" /> < effectiveTime value="152469495507" /> <value unit="mEq/L" xsi:type="PQ " value="100" /> <referenceRange> <observationRange> <text>99-109</text> </observationRange> </ referenceRange> </observation> </component> <component> <observation moodCode="EVN" classCode="OBS"> <templateId root= "10.29.840.1.395254.10.20.22.4.2" /> <id nullFlavor="NA" /> < code codeSystem="local" code="CO2" displayName="CO2" /> <statusCode code="completed" /> <effectiveTime value="798616592677" /> < value unit="mEq/L" xsi:type="PQ" value="23" /> <referenceRange> <observationRange> <text>22-32</text> </ observationRange> </referenceRange> </observation> </ component> <component> <observation moodCode="EVN" classCode="OBS"> <templateId root="2.16.840.1.098922.10..4.2" /> <id nullFlavor="NA" /> <code codeSystem="local" code="CREAT" displayName= "Creatinine" /> <statusCode code="completed" /> < effectiveTime value="448430126759" /> <value unit="mg/dL" xsi:type="PQ " value="1.14" /> <referenceRange> <observationRange> <text>0.64-1.27</text> </observationRange> </ referenceRange> </observation> </component> <component> <observation moodCode="EVN" classCode="OBS"> <templateId root= "10.29.840.1.841769.07.02.22.4.2" /> <id nullFlavor="NA" /> < code codeSystem="local" code="GLOB" displayName="Globulin" /> < statusCode code="completed" /> <effectiveTime value="067461180810" /> <value unit="g/dL" xsi:type="PQ" value="3.2" /> < referenceRange> <observationRange> <text>1.9-4.3</text> </observationRange> </referenceRange> </observation > </component> <component> <observation moodCode="EVN" classCode="OBS"> <templateId root="16.840.1.183589.10...4.2" /> <id nullFlavor="NA" /> <code codeSystem="local" code="GLU" displayName="Glucose" /> <statusCode code="completed" /> < effectiveTime value="826678815766" /> <value unit="mg/dL" xsi:type="PQ " value="144" /> <interpretationCode codeSystem="local" code="*" /> <referenceRange> <observationRange> <text>70-100< /text> </observationRange> </referenceRange> </ observation> </component> <component> <observation moodCode= "EVN" classCode="OBS"> <templateId root="10.29.840.1.459489.22.4.2 " /> <id nullFlavor="NA" /> <code codeSystem="local" code="K" displayName="Potassium" /> <statusCode code="completed" /> < effectiveTime value="789041784757" /> <value unit="mEq/L" xsi:type="PQ " value="4.4" /> <referenceRange> <observationRange> <text>3.6-5.1</text> </observationRange> </ referenceRange> </observation> </component> <component> <observation moodCode="EVN" classCode="OBS"> <templateId root= "10.29.840.1.026290.07.02.22.4.2" /> <id nullFlavor="NA" /> < code codeSystem="local" code="TP" displayName="Protein" /> <statusCode code="completed" /> <effectiveTime value="277744487026" /> < value unit="g/dL" xsi:type="PQ" value="5.8" /> <interpretationCode codeSystem="local" code="*" /> <referenceRange> < observationRange> <text>6.1-7.9</text> </ observationRange> </referenceRange> </observation> </ component> <component> <observation moodCode="EVN" classCode="OBS"> <templateId root="10.29.840.1.038779.22.4.2" /> <id nullFlavor="NA" /> <code codeSystem="local" code="NA" displayName= "Sodium" /> <statusCode code="completed" /> <effectiveTime value="164355613644" /> <value unit="mEq/L" xsi:type="PQ" value="135" / > <interpretationCode codeSystem="local" code="*" /> < referenceRange> <observationRange> <text>136-144</text> </observationRange> </referenceRange> </observation > </component> </organizer> </entry> <entry> <organizer moodCode= "EVN" classCode="BATTERY"> <templateId root="216.840.1.388781.10..22.4.1 " /> <id nullFlavor="NA" /> <code codeSystem="local" code="MG" displayName="Magnesium" /> <statusCode code="completed" /> <component > <observation moodCode="EVN" classCode="OBS"> <templateId root= "216.840.1.633072.10..22.4.2" /> <id nullFlavor="NA" /> < code codeSystem="local" code="MG" displayName="Magnesium" /> < statusCode code="completed" /> <effectiveTime value="298171090062" /> <value unit="mg/dL" xsi:type="PQ" value="1.8" /> < referenceRange> <observationRange> <text>1.8-2.5</text> </observationRange> </referenceRange> </observation > </component> </organizer> </entry> <entry> <organizer moodCode= "EVN" classCode="BATTERY"> <templateId root="16.840.1.200288.10..22.4.1 " /> <id nullFlavor="NA" /> <code codeSystem="local" code="PHOS" displayName="Phosphorus" /> <statusCode code="completed" /> <component > <observation moodCode="EVN" classCode="OBS"> <templateId root= "216.840.1.897060.10..22.4.2" /> <id nullFlavor="NA" /> < code codeSystem="local" code="PHOS" displayName="Phosphorus" /> < statusCode code="completed" /> <effectiveTime value="755935193067" /> <value unit="mg/dL" xsi:type="PQ" value="4.1" /> < referenceRange> <observationRange> <text>2.4-4.7</text> </observationRange> </referenceRange> </observation > </component> </organizer> </entry> <entry> <organizer moodCode= "EVN" classCode="BATTERY"> <templateId root="16.840.1.130868.10..22.4.1 " /> <id nullFlavor="NA" /> <code codeSystem="local" code="GFR" displayName="eGFR" /> <statusCode code="completed" /> <component> <observation moodCode="EVN" classCode="OBS"> <templateId root= "16.840.1.683714.10..22.4.2" /> <id nullFlavor="NA" /> < code codeSystem="local" code="GFR" displayName="eGFR" /> <statusCode code="completed" /> <effectiveTime value="893147111192" /> < value unit="mL/min" xsi:type="PQ" value=">60" /> <referenceRange> <observationRange> <text>>60</text> </ observationRange> </referenceRange> </observation> </ component> </organizer> </entry> <entry> <organizer moodCode="EVN" classCode="BATTERY"> <templateId root="840.1.797803.07.02.22.4.1" /> <id nullFlavor="NA" /> <code codeSystem="local" code="GLUN" displayName="Glucose NPT" /> <statusCode code="completed" /> < component> <observation moodCode="EVN" classCode="OBS"> < templateId root="840.1.631625.07.02.22.4.2" /> <id nullFlavor="NA " /> <code codeSystem="local" code="GLUN" displayName="Glucose NPT" / > <statusCode code="completed" /> <effectiveTime value= "567206905074" /> <value unit="mg/dL" xsi:type="PQ" value="157" /> <interpretationCode codeSystem="local" code="*" /> < referenceRange> <observationRange> <text>70-100</text> </observationRange> </referenceRange> </observation> </component> </organizer> </entry> <entry> <organizer moodCode= "EVN" classCode="BATTERY"> <templateId root="840.1.704968.07.02.22.4.1 " /> <id nullFlavor="NA" /> <code codeSystem="local" code="GLUN" displayName="Glucose NPT" /> <statusCode code="completed" /> < component> <observation moodCode="EVN" classCode="OBS"> < templateId root="840.1.820153.07.02.22.4.2" /> <id nullFlavor="NA " /> <code codeSystem="local" code="GLUN" displayName="Glucose NPT" / > <statusCode code="completed" /> <effectiveTime value= "249688857232" /> <value unit="mg/dL" xsi:type="PQ" value="152" /> <interpretationCode codeSystem="local" code="*" /> < referenceRange> <observationRange> <text>70-100</text> </observationRange> </referenceRange> </observation> </component> </organizer> </entry> <entry> <organizer moodCode= "EVN" classCode="BATTERY"> <templateId root="16.840.1.917266.10..22.4.1 " /> <id nullFlavor="NA" /> <code codeSystem="local" code="GLUN" displayName="Glucose NPT" /> <statusCode code="completed" /> < component> <observation moodCode="EVN" classCode="OBS"> < templateId root="10.29.840.1.867456.10..22.4.2" /> <id nullFlavor="NA " /> <code codeSystem="local" code="GLUN" displayName="Glucose NPT" / > <statusCode code="completed" /> <effectiveTime value= "921198945287" /> <value unit="mg/dL" xsi:type="PQ" value="155" /> <interpretationCode codeSystem="local" code="*" /> < referenceRange> <observationRange> <text>70-100</text> </observationRange> </referenceRange> </observation> </component> </organizer> </entry> <entry> <organizer moodCode= "EVN" classCode="BATTERY"> <templateId root="10.29.840.1.638691.10..22.4.1 " /> <id nullFlavor="NA" /> <code codeSystem="local" code="GLUN" displayName="Glucose NPT" /> <statusCode code="completed" /> < component> <observation moodCode="EVN" classCode="OBS"> < templateId root="216.840.1.818691.10..22.4.2" /> <id nullFlavor="NA " /> <code codeSystem="local" code="GLUN" displayName="Glucose NPT" / > <statusCode code="completed" /> <effectiveTime value= "621563355320" /> <value unit="mg/dL" xsi:type="PQ" value="112" /> <interpretationCode codeSystem="local" code="*" /> < referenceRange> <observationRange> <text>70-100</text> </observationRange> </referenceRange> </observation> </component> </organizer> </entry> <entry> <organizer moodCode= "EVN" classCode="BATTERY"> <templateId root="216.840.1.159161.10..22.4.1 " /> <id nullFlavor="NA" /> <code codeSystem="local" code="CBCND" displayName="CBC With Platelet No Differential" /> <statusCode code= "completed" /> <component> <observation moodCode="EVN" classCode= "OBS"> <templateId root="2.16.840.1.245580.10..22.4.2" /> < id nullFlavor="NA" /> <code codeSystem="local" code="HCT" displayName= "HCT" /> <statusCode code="completed" /> <effectiveTime value= "912086267566" /> <value unit="%" xsi:type="PQ" value="36.4" /> <interpretationCode codeSystem="local" code="*" /> < referenceRange> <observationRange> <text>42.0-52.0</text > </observationRange> </referenceRange> </observation > </component> <component> <observation moodCode="EVN" classCode="OBS"> <templateId root="2.16.840.1.551550.10...4.2" /> <id nullFlavor="NA" /> <code codeSystem="local" code="HGB" displayName="HGB" /> <statusCode code="completed" /> < effectiveTime value="111640577389" /> <value unit="g/dL" xsi:type="PQ" value="11.6" /> <interpretationCode codeSystem="local" code="*" /> <referenceRange> <observationRange> <text>14.0- 18.0</text> </observationRange> </referenceRange> </ observation> </component> <component> <observation moodCode= "EVN" classCode="OBS"> <templateId root="216.840.1.620442.07.02.224.2 " /> <id nullFlavor="NA" /> <code codeSystem="local" code="MCH " displayName="MCH" /> <statusCode code="completed" /> < effectiveTime value="" /> <value unit="pg" xsi:type="PQ" value="29.1" /> <referenceRange> <observationRange> <text>27.0-32.0</text> </observationRange> </ referenceRange> </observation> </component> <component> <observation moodCode="EVN" classCode="OBS"> <templateId root= "2.16.840.1.800798.10..4.2" /> <id nullFlavor="NA" /> < code codeSystem="local" code="MCHC" displayName="MCHC" /> <statusCode code="completed" /> <effectiveTime value="911138980334" /> < value unit="g/dL" xsi:type="PQ" value="31.9" /> <interpretationCode codeSystem="local" code="*" /> <referenceRange> < observationRange> <text>32.0-36.0</text> </ observationRange> </referenceRange> </observation> </ component> <component> <observation moodCode="EVN" classCode="OBS"> <templateId root="16.840.1.188723.10.2022.4.2" /> <id nullFlavor="NA" /> <code codeSystem="local" code="MCV" displayName="MCV " /> <statusCode code="completed" /> <effectiveTime value= "" /> <value unit="fL" xsi:type="PQ" value="91.2" /> <referenceRange> <observationRange> <text>82.0-99.0< /text> </observationRange> </referenceRange> </ observation> </component> <component> <observation moodCode= "EVN" classCode="OBS"> <templateId root="10.29.840.1.272587.1022.4.2 " /> <id nullFlavor="NA" /> <code codeSystem="local" code="MPV " displayName="MPV" /> <statusCode code="completed" /> < effectiveTime value="" /> <value unit="fL" xsi:type="PQ" value="9.7" /> <referenceRange> <observationRange> <text>9.4-12.3</text> </observationRange> </ referenceRange> </observation> </component> <component> <observation moodCode="EVN" classCode="OBS"> <templateId root= "10.29.840.1.976366.10.2022.4.2" /> <id nullFlavor="NA" /> < code codeSystem="local" code="PLT" displayName="Platelet Count" /> < statusCode code="completed" /> <effectiveTime value="496899082969" /> <value unit="K/uL" xsi:type="PQ" value="218" /> < referenceRange> <observationRange> <text>150-400</text> </observationRange> </referenceRange> </observation > </component> <component> <observation moodCode="EVN" classCode="OBS"> <templateId root="16.840.1.406146.10.20.22.4.2" /> <id nullFlavor="NA" /> <code codeSystem="local" code="RBC" displayName="RBC" /> <statusCode code="completed" /> < effectiveTime value="" /> <value unit="10*6/uL" xsi:type= "PQ" value="3.99" /> <interpretationCode codeSystem="local" code="*" / > <referenceRange> <observationRange> <text> 4.60-6.20</text> </observationRange> </referenceRange> </observation> </component> <component> <observation moodCode="EVN" classCode="OBS"> <templateId root= "16.840.1.605388.10.20.22.4.2" /> <id nullFlavor="NA" /> < code codeSystem="local" code="RDW" displayName="RDW" /> <statusCode code="completed" /> <effectiveTime value="337436998330" /> < value unit="%" xsi:type="PQ" value="17.1" /> <interpretationCode codeSystem="local" code="*" /> <referenceRange> < observationRange> <text>11.5-14.5</text> </ observationRange> </referenceRange> </observation> </ component> <component> <observation moodCode="EVN" classCode="OBS"> <templateId root="216.840.1.550067.10..22.4.2" /> <id nullFlavor="NA" /> <code codeSystem="local" code="WBCIR" displayName= "WBC" /> <statusCode code="completed" /> <effectiveTime value= "" /> <value unit="K/uL" xsi:type="PQ" value="12.8" /> <interpretationCode codeSystem="local" code="*" /> < referenceRange> <observationRange> <text>4.8-10.8</text > </observationRange> </referenceRange> </observation > </component> </organizer> </entry> <entry> <organizer moodCode= "EVN" classCode="BATTERY"> <templateId root="216.840.1.788514.10..22.4.1 " /> <id nullFlavor="NA" /> <code codeSystem="local" code="MG" displayName="Magnesium" /> <statusCode code="completed" /> <component > <observation moodCode="EVN" classCode="OBS"> <templateId root= "216.840.1.203610.10..22.4.2" /> <id nullFlavor="NA" /> < code codeSystem="local" code="MG" displayName="Magnesium" /> < statusCode code="completed" /> <effectiveTime value="390400191540" /> <value unit="mg/dL" xsi:type="PQ" value="1.7" /> < interpretationCode codeSystem="local" code="*" /> <referenceRange> <observationRange> <text>1.8-2.5</text> </ observationRange> </referenceRange> </observation> </ component> </organizer> </entry> <entry> <organizer moodCode="EVN" classCode="BATTERY"> <templateId root="216.840.1.108528.10..22.4.1" /> <id nullFlavor="NA" /> <code codeSystem="local" code="CMP" displayName ="Comprehensive Metabolic Panel (CMP)" /> <statusCode code="completed" /> <component> <observation moodCode="EVN" classCode="OBS"> < templateId root="216.840.1.784985.10...4.2" /> <id nullFlavor="NA " /> <code codeSystem="local" code="ALB" displayName="Albumin" /> <statusCode code="completed" /> <effectiveTime value=" " /> <value unit="g/dL" xsi:type="PQ" value="2.8" /> < interpretationCode codeSystem="local" code="*" /> <referenceRange> <observationRange> <text>3.5-4.8</text> </ observationRange> </referenceRange> </observation> </ component> <component> <observation moodCode="EVN" classCode="OBS"> <templateId root="216.840.1.737163.10...4.2" /> <id nullFlavor="NA" /> <code codeSystem="local" code="ALP" displayName= "Alkaline Phosphatase" /> <statusCode code="completed" /> < effectiveTime value="" /> <value unit="U/L" xsi:type="PQ" value="98" /> <referenceRange> <observationRange> <text>26-104</text> </observationRange> </referenceRange > </observation> </component> <component> <observation moodCode="EVN" classCode="OBS"> <templateId root= "216.840.1.663547.10..22.4.2" /> <id nullFlavor="NA" /> < code codeSystem="local" code="ALT" displayName="ALT (SGPT)" /> < statusCode code="completed" /> <effectiveTime value="" /> <value unit="U/L" xsi:type="PQ" value="71" /> < interpretationCode codeSystem="local" code="*" /> <referenceRange> <observationRange> <text>17-63</text> </ observationRange> </referenceRange> </observation> </ component> <component> <observation moodCode="EVN" classCode="OBS"> <templateId root="10.29.840.1.354793.10..4.2" /> <id nullFlavor="NA" /> <code codeSystem="local" code="AGAP" displayName= "Anion Gap" /> <statusCode code="completed" /> <effectiveTime value="" /> <value unit="mEq/L" xsi:type="PQ" value="7" /> <referenceRange> <observationRange> <text>3-20 </text> </observationRange> </referenceRange> </ observation> </component> <component> <observation moodCode= "EVN" classCode="OBS"> <templateId root="10.29.840.1.798709.10.20.22.4.2 " /> <id nullFlavor="NA" /> <code codeSystem="local" code="AST " displayName="AST (SGOT)" /> <statusCode code="completed" /> <effectiveTime value="" /> <value unit="U/L" xsi:type="PQ" value="32" /> <referenceRange> <observationRange> <text>15-41</text> </observationRange> </referenceRange > </observation> </component> <component> <observation moodCode="EVN" classCode="OBS"> <templateId root= "10.29.840.1.548355.10.20.22.4.2" /> <id nullFlavor="NA" /> < code codeSystem="local" code="BILIT" displayName="Bilirubin Total" /> < statusCode code="completed" /> <effectiveTime value="" /> <value unit="mg/dL" xsi:type="PQ" value="1.3" /> < interpretationCode codeSystem="local" code="*" /> <referenceRange> <observationRange> <text>0.2-1.2</text> </ observationRange> </referenceRange> </observation> </ component> <component> <observation moodCode="EVN" classCode="OBS"> <templateId root="840.1.713075.10.22.4.2" /> <id nullFlavor="NA" /> <code codeSystem="local" code="BUN" displayName="BUN " /> <statusCode code="completed" /> <effectiveTime value= "[id number]" /> <value unit="mg/dL" xsi:type="PQ" value="25" /> <interpretationCode codeSystem="local" code="*" /> <referenceRange > <observationRange> <text>4-20</text> </ observationRange> </referenceRange> </observation> </ component> <component> <observation moodCode="EVN" classCode="OBS"> <templateId root="10.29.840.1.383548.10.20.22.4.2" /> <id nullFlavor="NA" /> <code codeSystem="local" code="CA" displayName= "Calcium" /> <statusCode code="completed" /> <effectiveTime value="" /> <value unit="mg/dL" xsi:type="PQ" value="8.7" / > <referenceRange> <observationRange> <text>8.6 -10.0</text> </observationRange> </referenceRange> </ observation> </component> <component> <observation moodCode= "EVN" classCode="OBS"> <templateId root="16.840.1.774359.10.20.22.4.2 " /> <id nullFlavor="NA" /> <code codeSystem="local" code="CL " displayName="Chloride" /> <statusCode code="completed" /> < effectiveTime value="" /> <value unit="mEq/L" xsi:type="PQ " value="96" /> <interpretationCode codeSystem="local" code="*" /> <referenceRange> <observationRange> <text>99-109</ text> </observationRange> </referenceRange> </ observation> </component> <component> <observation moodCode= "EVN" classCode="OBS"> <templateId root="16.840.1.463873.10.20.22.4.2 " /> <id nullFlavor="NA" /> <code codeSystem="local" code="CO2 " displayName="CO2" /> <statusCode code="completed" /> < effectiveTime value="" /> <value unit="mEq/L" xsi:type="PQ " value="27" /> <referenceRange> <observationRange> <text>22-32</text> </observationRange> </ referenceRange> </observation> </component> <component> <observation moodCode="EVN" classCode="OBS"> <templateId root= "16.840.1.253459.07.02.22.4.2" /> <id nullFlavor="NA" /> < code codeSystem="local" code="CREAT" displayName="Creatinine" /> < statusCode code="completed" /> <effectiveTime value="" /> <value unit="mg/dL" xsi:type="PQ" value="1.01" /> < referenceRange> <observationRange> <text>0.64-1.27</text > </observationRange> </referenceRange> </observation > </component> <component> <observation moodCode="EVN" classCode="OBS"> <templateId root="216.840.1.069734.07.02.22.4.2" /> <id nullFlavor="NA" /> <code codeSystem="local" code="GLOB" displayName="Globulin" /> <statusCode code="completed" /> < effectiveTime value="" /> <value unit="g/dL" xsi:type="PQ" value="3.4" /> <referenceRange> <observationRange> <text>1.9-4.3</text> </observationRange> </ referenceRange> </observation> </component> <component> <observation moodCode="EVN" classCode="OBS"> <templateId root= "16.840.1.309063.07.02.22.4.2" /> <id nullFlavor="NA" /> < code codeSystem="local" code="GLU" displayName="Glucose" /> < statusCode code="completed" /> <effectiveTime value="" /> <value unit="mg/dL" xsi:type="PQ" value="108" /> < interpretationCode codeSystem="local" code="*" /> <referenceRange> <observationRange> <text>70-100</text> </ observationRange> </referenceRange> </observation> </ component> <component> <observation moodCode="EVN" classCode="OBS"> <templateId root="10.29.840.1.889688.1022.4.2" /> <id nullFlavor="NA" /> <code codeSystem="local" code="K" displayName= "Potassium" /> <statusCode code="completed" /> <effectiveTime value="" /> <value unit="mEq/L" xsi:type="PQ" value="4.2" / > <referenceRange> <observationRange> <text>3.6 -5.1</text> </observationRange> </referenceRange> </ observation> </component> <component> <observation moodCode= "EVN" classCode="OBS"> <templateId root="10.29.840.1.465917.22.4.2 " /> <id nullFlavor="NA" /> <code codeSystem="local" code="TP " displayName="Protein" /> <statusCode code="completed" /> < effectiveTime value="" /> <value unit="g/dL" xsi:type="PQ" value="6.2" /> <referenceRange> <observationRange> <text>6.1-7.9</text> </observationRange> </ referenceRange> </observation> </component> <component> <observation moodCode="EVN" classCode="OBS"> <templateId root= "10.29.840.1.268040.10.22.4.2" /> <id nullFlavor="NA" /> < code codeSystem="local" code="NA" displayName="Sodium" /> <statusCode code="completed" /> <effectiveTime value="" /> < value unit="mEq/L" xsi:type="PQ" value="130" /> <interpretationCode codeSystem="local" code="*" /> <referenceRange> < observationRange> <text>136-144</text> </ observationRange> </referenceRange> </observation> </ component> </organizer> </entry> <entry> <organizer moodCode="EVN" classCode="BATTERY"> <templateId root="16.840.1.440151.10..22.4.1" /> <id nullFlavor="NA" /> <code codeSystem="local" code="GFR" displayName ="eGFR" /> <statusCode code="completed" /> <component> < observation moodCode="EVN" classCode="OBS"> <templateId root= "10.29.840.1.260783...4.2" /> <id nullFlavor="NA" /> < code codeSystem="local" code="GFR" displayName="eGFR" /> <statusCode code="completed" /> <effectiveTime value="779803356120" /> < value unit="mL/min" xsi:type="PQ" value=">60" /> <referenceRange> <observationRange> <text>>60</text> </ observationRange> </referenceRange> </observation> </ component> </organizer> </entry> <entry> <organizer moodCode="EVN" classCode="BATTERY"> <templateId root="16.840.1.671930.10.20.22.4.1" /> <id nullFlavor="NA" /> <code codeSystem="local" code="GLUN" displayName="Glucose NPT" /> <statusCode code="completed" /> < component> <observation moodCode="EVN" classCode="OBS"> < templateId root="10.29.840.1.480317.10..4.2" /> <id nullFlavor="NA " /> <code codeSystem="local" code="GLUN" displayName="Glucose NPT" / > <statusCode code="completed" /> <effectiveTime value= "411242533194" /> <value unit="mg/dL" xsi:type="PQ" value="102" /> <interpretationCode codeSystem="local" code="*" /> < referenceRange> <observationRange> <text>70-100</text> </observationRange> </referenceRange> </observation> </component> </organizer> </entry> <entry> <organizer moodCode= "EVN" classCode="BATTERY"> <templateId root="216.840.1.279346.07.02.22.4.1 " /> <id nullFlavor="NA" /> <code codeSystem="local" code="GLUN" displayName="Glucose NPT" /> <statusCode code="completed" /> < component> <observation moodCode="EVN" classCode="OBS"> < templateId root="216.840.1.489340.07.02.22.4.2" /> <id nullFlavor="NA " /> <code codeSystem="local" code="GLUN" displayName="Glucose NPT" / > <statusCode code="completed" /> <effectiveTime value= "359246829205" /> <value unit="mg/dL" xsi:type="PQ" value="135" /> <interpretationCode codeSystem="local" code="*" /> < referenceRange> <observationRange> <text>70-100</text> </observationRange> </referenceRange> </observation> </component> </organizer> </entry> <entry> <organizer moodCode= "EVN" classCode="BATTERY"> <templateId root="216.840.1.930064.07.02.224.1 " /> <id nullFlavor="NA" /> <code codeSystem="local" code="GLUN" displayName="Glucose NPT" /> <statusCode code="completed" /> < component> <observation moodCode="EVN" classCode="OBS"> < templateId root="840.1.585320.07.02.22.4.2" /> <id nullFlavor="NA " /> <code codeSystem="local" code="GLUN" displayName="Glucose NPT" / > <statusCode code="completed" /> <effectiveTime value= "127927088589" /> <value unit="mg/dL" xsi:type="PQ" value="115" /> <interpretationCode codeSystem="local" code="*" /> < referenceRange> <observationRange> <text>70-100</text> </observationRange> </referenceRange> </observation> </component> </organizer> </entry> <entry> <organizer moodCode= "EVN" classCode="BATTERY"> <templateId root="840.1.032164.07.02.224.1 " /> <id nullFlavor="NA" /> <code codeSystem="local" code="MG" displayName="Magnesium" /> <statusCode code="completed" /> <component > <observation moodCode="EVN" classCode="OBS"> <templateId root= "10.29.840.1.708317.07.02.22.4.2" /> <id nullFlavor="NA" /> < code codeSystem="local" code="MG" displayName="Magnesium" /> < statusCode code="completed" /> <effectiveTime value="914098249311" /> <value unit="mg/dL" xsi:type="PQ" value="1.7" /> < interpretationCode codeSystem="local" code="*" /> <referenceRange> <observationRange> <text>1.8-2.5</text> </ observationRange> </referenceRange> </observation> </ component> </organizer> </entry> <entry> <organizer moodCode="EVN" classCode="BATTERY"> <templateId root="16.840.1.814419.10..22.4.1" /> <id nullFlavor="NA" /> <code codeSystem="local" code="RENAL" displayName="Renal Function Panel" /> <statusCode code="completed" /> <component> <observation moodCode="EVN" classCode="OBS"> < templateId root="16.840.1.388435...22.4.2" /> <id nullFlavor="NA " /> <code codeSystem="local" code="ALB" displayName="Albumin" /> <statusCode code="completed" /> <effectiveTime value="795359396984 " /> <value unit="g/dL" xsi:type="PQ" value="2.9" /> < interpretationCode codeSystem="local" code="*" /> <referenceRange> <observationRange> <text>3.5-4.8</text> </ observationRange> </referenceRange> </observation> </ component> <component> <observation moodCode="EVN" classCode="OBS"> <templateId root="10.29.840.1.486054.22.4.2" /> <id nullFlavor="NA" /> <code codeSystem="local" code="AGAP" displayName= "Anion Gap" /> <statusCode code="completed" /> <effectiveTime value="223962794548" /> <value unit="mEq/L" xsi:type="PQ" value="8" /> <referenceRange> <observationRange> <text>3-20 </text> </observationRange> </referenceRange> </ observation> </component> <component> <observation moodCode= "EVN" classCode="OBS"> <templateId root="10.29.840.1.929495.10.22.4.2 " /> <id nullFlavor="NA" /> <code codeSystem="local" code="BUN " displayName="BUN" /> <statusCode code="completed" /> < effectiveTime value="750841946352" /> <value unit="mg/dL" xsi:type="PQ " value="24" /> <interpretationCode codeSystem="local" code="*" /> <referenceRange> <observationRange> <text>4-20</ text> </observationRange> </referenceRange> </ observation> </component> <component> <observation moodCode= "EVN" classCode="OBS"> <templateId root="10.29.840.1.688978.07.02.22.4.2 " /> <id nullFlavor="NA" /> <code codeSystem="local" code="CA " displayName="Calcium" /> <statusCode code="completed" /> < effectiveTime value="796474969295" /> <value unit="mg/dL" xsi:type="PQ " value="8.5" /> <interpretationCode codeSystem="local" code="*" /> <referenceRange> <observationRange> <text>8.6- 10.0</text> </observationRange> </referenceRange> </ observation> </component> <component> <observation moodCode= "EVN" classCode="OBS"> <templateId root="10.29.840.1.168002..22.4.2 " /> <id nullFlavor="NA" /> <code codeSystem="local" code="CL " displayName="Chloride" /> <statusCode code="completed" /> < effectiveTime value="872014876494" /> <value unit="mEq/L" xsi:type="PQ " value="98" /> <interpretationCode codeSystem="local" code="*" /> <referenceRange> <observationRange> <text>99-109</ text> </observationRange> </referenceRange> </ observation> </component> <component> <observation moodCode= "EVN" classCode="OBS"> <templateId root="10.29.840.1.388686.10.22.4.2 " /> <id nullFlavor="NA" /> <code codeSystem="local" code="CO2 " displayName="CO2" /> <statusCode code="completed" /> < effectiveTime value="408411472285" /> <value unit="mEq/L" xsi:type="PQ " value="25" /> <referenceRange> <observationRange> <text>22-32</text> </observationRange> </ referenceRange> </observation> </component> <component> <observation moodCode="EVN" classCode="OBS"> <templateId root= "10.29.840.1.157638.10.22.4.2" /> <id nullFlavor="NA" /> < code codeSystem="local" code="CREAT" displayName="Creatinine" /> < statusCode code="completed" /> <effectiveTime value="823934405583" /> <value unit="mg/dL" xsi:type="PQ" value="0.90" /> < referenceRange> <observationRange> <text>0.64-1.27</text > </observationRange> </referenceRange> </observation > </component> <component> <observation moodCode="EVN" classCode="OBS"> <templateId root="10.29.840.1.988883.07.02.22.4.2" /> <id nullFlavor="NA" /> <code codeSystem="local" code="GLU" displayName="Glucose" /> <statusCode code="completed" /> < effectiveTime value="546790206991" /> <value unit="mg/dL" xsi:type="PQ " value="89" /> <referenceRange> <observationRange> <text>70-100</text> </observationRange> </ referenceRange> </observation> </component> <component> <observation moodCode="EVN" classCode="OBS"> <templateId root= "216.840.1.383617.07.02.22.4.2" /> <id nullFlavor="NA" /> < code codeSystem="local" code="PHOS" displayName="Phosphorus" /> < statusCode code="completed" /> <effectiveTime value="" /> <value unit="mg/dL" xsi:type="PQ" value="3.8" /> < referenceRange> <observationRange> <text>2.4-4.7</text> </observationRange> </referenceRange> </observation > </component> <component> <observation moodCode="EVN" classCode="OBS"> <templateId root="216.840.1.763119.07.02.22.4.2" /> <id nullFlavor="NA" /> <code codeSystem="local" code="K" displayName="Potassium" /> <statusCode code="completed" /> < effectiveTime value="" /> <value unit="mEq/L" xsi:type="PQ " value="4.0" /> <referenceRange> <observationRange> <text>3.6-5.1</text> </observationRange> </ referenceRange> </observation> </component> <component> <observation moodCode="EVN" classCode="OBS"> <templateId root= "16.840.1.068355.10.20.22.4.2" /> <id nullFlavor="NA" /> < code codeSystem="local" code="NA" displayName="Sodium" /> <statusCode code="completed" /> <effectiveTime value="237582026512" /> < value unit="mEq/L" xsi:type="PQ" value="131" /> <interpretationCode codeSystem="local" code="*" /> <referenceRange> < observationRange> <text>136-144</text> </ observationRange> </referenceRange> </observation> </ component> </organizer> </entry> <entry> <organizer moodCode="EVN" classCode="BATTERY"> <templateId root="216.840.1.919404.10..22.4.1" /> <id nullFlavor="NA" /> <code codeSystem="local" code="GFR" displayName ="eGFR" /> <statusCode code="completed" /> <component> < observation moodCode="EVN" classCode="OBS"> <templateId root= "216.840.1.262985.10..22.4.2" /> <id nullFlavor="NA" /> < code codeSystem="local" code="GFR" displayName="eGFR" /> <statusCode code="completed" /> <effectiveTime value="759108373415" /> < value unit="mL/min" xsi:type="PQ" value=">60" /> <referenceRange> <observationRange> <text>>60</text> </ observationRange> </referenceRange> </observation> </ component> </organizer> </entry> <entry> <organizer moodCode="EVN" classCode="BATTERY"> <templateId root="840.1.737182.10..4.1" /> <id nullFlavor="NA" /> <code codeSystem="local" code="CBCND" displayName="CBC With Platelet No Differential" /> <statusCode code= "completed" /> <component> <observation moodCode="EVN" classCode= "OBS"> <templateId root="216.840.1.935648.07.02.22.4.2" /> < id nullFlavor="NA" /> <code codeSystem="local" code="HCT" displayName= "HCT" /> <statusCode code="completed" /> <effectiveTime value= "" /> <value unit="%" xsi:type="PQ" value="36.1" /> <interpretationCode codeSystem="local" code="*" /> < referenceRange> <observationRange> <text>42.0-52.0</text > </observationRange> </referenceRange> </observation > </component> <component> <observation moodCode="EVN" classCode="OBS"> <templateId root="216.840.1.282881.07.02.22.4.2" /> <id nullFlavor="NA" /> <code codeSystem="local" code="HGB" displayName="HGB" /> <statusCode code="completed" /> < effectiveTime value="" /> <value unit="g/dL" xsi:type="PQ" value="11.7" /> <interpretationCode codeSystem="local" code="*" /> <referenceRange> <observationRange> <text>14.0- 18.0</text> </observationRange> </referenceRange> </ observation> </component> <component> <observation moodCode= "EVN" classCode="OBS"> <templateId root="216.840.1.974908.22.4.2 " /> <id nullFlavor="NA" /> <code codeSystem="local" code="MCH " displayName="MCH" /> <statusCode code="completed" /> < effectiveTime value="" /> <value unit="pg" xsi:type="PQ" value="29.5" /> <referenceRange> <observationRange> <text>27.0-32.0</text> </observationRange> </ referenceRange> </observation> </component> <component> <observation moodCode="EVN" classCode="OBS"> <templateId root= "216.840.1.405977.07.02.22.4.2" /> <id nullFlavor="NA" /> < code codeSystem="local" code="MCHC" displayName="MCHC" /> <statusCode code="completed" /> <effectiveTime value="" /> < value unit="g/dL" xsi:type="PQ" value="32.4" /> <referenceRange> <observationRange> <text>32.0-36.0</text> </ observationRange> </referenceRange> </observation> </ component> <component> <observation moodCode="EVN" classCode="OBS"> <templateId root="216.840.1.108800.1022.4.2" /> <id nullFlavor="NA" /> <code codeSystem="local" code="MCV" displayName="MCV " /> <statusCode code="completed" /> <effectiveTime value= "" /> <value unit="fL" xsi:type="PQ" value="90.9" /> <referenceRange> <observationRange> <text>82.0-99.0< /text> </observationRange> </referenceRange> </ observation> </component> <component> <observation moodCode= "EVN" classCode="OBS"> <templateId root="16.840.1.103873.10.22.4.2 " /> <id nullFlavor="NA" /> <code codeSystem="local" code="MPV " displayName="MPV" /> <statusCode code="completed" /> < effectiveTime value="" /> <value unit="fL" xsi:type="PQ" value="9.9" /> <referenceRange> <observationRange> <text>9.4-12.3</text> </observationRange> </ referenceRange> </observation> </component> <component> <observation moodCode="EVN" classCode="OBS"> <templateId root= "10.29.840.1.236098.22.4.2" /> <id nullFlavor="NA" /> < code codeSystem="local" code="PLT" displayName="Platelet Count" /> < statusCode code="completed" /> <effectiveTime value="" /> <value unit="K/uL" xsi:type="PQ" value="229" /> < referenceRange> <observationRange> <text>150-400</text> </observationRange> </referenceRange> </observation > </component> <component> <observation moodCode="EVN" classCode="OBS"> <templateId root="10.29.840.1.516373.10.2022.4.2" /> <id nullFlavor="NA" /> <code codeSystem="local" code="RBC" displayName="RBC" /> <statusCode code="completed" /> < effectiveTime value="" /> <value unit="10*6/uL" xsi:type= "PQ" value="3.97" /> <interpretationCode codeSystem="local" code="*" / > <referenceRange> <observationRange> <text> 4.60-6.20</text> </observationRange> </referenceRange> </observation> </component> <component> <observation moodCode="EVN" classCode="OBS"> <templateId root= "216.840.1.813766.10..22.4.2" /> <id nullFlavor="NA" /> < code codeSystem="local" code="RDW" displayName="RDW" /> <statusCode code="completed" /> <effectiveTime value="272977878912" /> < value unit="%" xsi:type="PQ" value="16.5" /> <interpretationCode codeSystem="local" code="*" /> <referenceRange> < observationRange> <text>11.5-14.5</text> </ observationRange> </referenceRange> </observation> </ component> <component> <observation moodCode="EVN" classCode="OBS"> <templateId root="216.840.1.100462.07.02.22.4.2" /> <id nullFlavor="NA" /> <code codeSystem="local" code="WBCIR" displayName= "WBC" /> <statusCode code="completed" /> <effectiveTime value= "" /> <value unit="K/uL" xsi:type="PQ" value="12.2" /> <interpretationCode codeSystem="local" code="*" /> < referenceRange> <observationRange> <text>4.8-10.8</text > </observationRange> </referenceRange> </observation > </component> </organizer> </entry> <entry> <organizer moodCode= "EVN" classCode="BATTERY"> <templateId root="216.840.1.985420.07.02.22.4.1 " /> <id nullFlavor="NA" /> <code codeSystem="local" code="GLUN" displayName="Glucose NPT" /> <statusCode code="completed" /> < component> <observation moodCode="EVN" classCode="OBS"> < templateId root="840.1.061889.07.02.22.4.2" /> <id nullFlavor="NA " /> <code codeSystem="local" code="GLUN" displayName="Glucose NPT" / > <statusCode code="completed" /> <effectiveTime value= "" /> <value unit="mg/dL" xsi:type="PQ" value="121" /> <interpretationCode codeSystem="local" code="*" /> < referenceRange> <observationRange> <text>70-100</text> </observationRange> </referenceRange> </observation> </component> </organizer> </entry> <entry> <organizer moodCode= "EVN" classCode="BATTERY"> <templateId root="840.1.928427.07.02.22.4.1 " /> <id nullFlavor="NA" /> <code codeSystem="local" code="GLUN" displayName="Glucose NPT" /> <statusCode code="completed" /> < component> <observation moodCode="EVN" classCode="OBS"> < templateId root="840.1.233533.07.02.22.4.2" /> <id nullFlavor="NA " /> <code codeSystem="local" code="GLUN" displayName="Glucose NPT" / > <statusCode code="completed" /> <effectiveTime value= "034615091153" /> <value unit="mg/dL" xsi:type="PQ" value="163" /> <interpretationCode codeSystem="local" code="*" /> < referenceRange> <observationRange> <text>70-100</text> </observationRange> </referenceRange> </observation> </component> </organizer> </entry></section> Encounters ACCT No. Visit Date/Time Discharge Status Pt. Type Provider Facility Loc./Unit Complaint [id number] 01/20/2014 19:08:00 01/20/2014 22:54:00 DIS Emergency Magdy Golden MD [facility] [place] FERM [id number] 10/25/2017 12:05:00 10/28/2017 17:22:00 DIS Inpatient [facility] [facility] on [facility] F8SW pneuomina HIV AMS [id number] 10/13/2017 15:46:00 10/22/2017 15:41:00 DIS Inpatient Flores John [facility] on [facility] F8SE acute hypoxic resp failure, copd chf [id number] 07/10/2017 20:12:00 07/12/2017 16:11:00 DIS Outpatient Muñoz Paul [facility] on [facility] F5SW Hypotension [id number] 07/05/2017 16:56:00 07/05/2017 19:20:00 DIS Emergency Lorenzana John [facility] on [facility] ED SOB [id number] 06/11/2017 16:50:00 06/12/2017 10:20:00 DIS Inpatient Ndpride Paul [facility] on [facility] F8SE LLL pneumonia, AMS [id number] 05/27/2017 12:16:00 05/27/2017 20:45:00 DIS Inpatient Akibarger Samuel [facility] on [facility] F3NC HIV, HYPOTENSION , DECOMPENSATED CIRRHOSIS [id number] 05/16/2017 21:25:00 05/18/2017 14:30:00 DIS Outpatient Pedraza Jennifer [facility] on [facility] F6SW H/O Aids, History of Methamphetamine [id number] 05/08/2017 18:49:00 05/11/2017 16:54:00 DIS Inpatient Mathias Samuel [facility] on [facility] F8SW COPD exacerbation HIV AIDS [id number] 05/06/2017 19:10:00 05/07/2017 01:16:00 DIS Emergency Meier Howard [facility] on [facility] ED unable to urinate [id number] 04/08/2017 15:21:00 04/15/2017 17:50:00 DIS Inpatient CorneliusRipna [facility] on [facility] F4SW chest pain [id number] 04/03/2017 08:39:00 04/03/2017 14:09:00 DIS Emergency Meier Howard [facility] on [facility] ED cp [id number] 12/19/2016 16:43:00 12/19/2016 21:20:00 DIS Emergency Guevara Denise [facility] on [facility] ED Abd Pain [id number] 12/14/2016 14:52:00 12/17/2016 13:33:00 DIS Inpatient Flores John [facility] on [facility] F8SW Hyperkalemia, HIV/AIDS [id number] 11/20/2016 16:51:00 11/27/2016 16:06:00 DIS Inpatient Joshi Andrew [facility] VTIR T2E NSTEMI, peripheral neuropathy [id number] 11/19/2016 19:08:00 11/20/2016 16:40:00 DIS Outpatient Joshi Andrew [facility] VCHT T3E SOA [id number] 11/18/2016 21:04:00 11/18/2016 21:59:00 DIS Emergency Chapman Jacob [facility] on [facility] ED assessment via WPD [id number] 11/18/2016 11:01:00 11/18/2016 15:26:00 DIS Emergency Meier Howard [facility] on [facility] ED DIFFICULTY BREATHING [id number] 11/10/2016 10:52:00 11/17/2016 15:57:00 DIS Inpatient Ndundaguilar Paul [facility] on [facility] F4SE EKG abnormalities, dyspnea [id number] 03/14/2016 15:24:00 03/14/2016 16:47:00 DIS Emergency Rosendo Farias [facility] on [facility] ED rash [id number] 05/06/2015 13:21:00 05/06/2015 23:59:00 DIS Outpatient Camron Hodges [facility] on [facility] CT Scan Abdominal Pain, RO Hernia [id number] 04/24/2015 20:23:00 04/24/2015 23:15:00 DIS Emergency Conor Meier MD [facility] on [facility] ED abd pain [id number] 10/29/2017 05:17:25 Document Registration [id number] 10/28/2017 05:17:12 Document Registration [id number] 10/26/2017 05:17:33 Document Registration [id number] 10/23/2017 05:17:26 Document Registration [id number] 10/20/2017 05:18:02 Document Registration [id number] 10/19/2017 05:17:59 Document Registration [id number] 10/18/2017 05:16:06 Document Registration [id number] 10/16/2017 05:17:18 Document Registration [id number] 10/15/2017 05:17:40 Document Registration [id number] 10/14/2017 05:17:58 Document Registration [id number] 07/13/2017 05:17:49 Document Registration [id number] 07/12/2017 07:36:45 Document Registration [id number] 07/11/2017 05:16:01 Document Registration [id number] 06/13/2017 05:15:56 Document Registration [id number] 06/12/2017 05:16:40 Document Registration [id number] 05/28/2017 05:16:16 Document Registration [id number] 05/19/2017 05:17:18 Document Registration [id number] 05/18/2017 05:15:43 Document Registration [id number] 05/17/2017 05:15:37 Document Registration [id number] 05/12/2017 05:16:28 Document Registration [id number] 05/12/2017 05:16:27 Document Registration [id number] 05/11/2017 05:17:05 Document Registration [id number] 05/10/2017 05:16:31 Document Registration [id number] 05/09/2017 05:15:37 Document Registration [id number] 05/07/2017 05:17:07 Document Registration [id number] 04/30/2017 05:16:29 Document Registration [id number] 04/28/2017 05:16:32 Document Registration [id number] 04/27/2017 05:16:53 Document Registration [id number] 04/26/2017 05:15:41 Document Registration [id number] 04/25/2017 05:15:41 Document Registration [id number] 04/25/2017 05:15:40 Document Registration [id number] 04/24/2017 05:16:16 Document Registration [id number] 04/16/2017 05:16:57 Document Registration [id number] 04/15/2017 05:16:26 Document Registration [id number] 04/15/2017 05:16:25 Document Registration [id number] 04/14/2017 05:16:17 Document Registration [id number] 04/13/2017 05:17:44 Document Registration [id number] 04/12/2017 05:15:38 Document Registration [id number] 04/11/2017 05:15:44 Document Registration [id number] 04/10/2017 05:16:56 Document Registration [id number] 04/09/2017 05:17:14 Document Registration [id number] 04/04/2017 05:15:48 Document Registration [id number] 12/20/2016 05:15:32 Document Registration [id number] 12/18/2016 05:16:08 Document Registration [id number] 12/17/2016 05:15:50 Document Registration [id number] 12/16/2016 05:17:28 Document Registration [id number] 12/15/2016 05:16:59 Document Registration [id number] 11/28/2016 05:17:10 Document Registration [id number] 11/25/2016 05:17:21 Document Registration [id number] 11/23/2016 05:15:50 Document Registration [id number] 11/22/2016 05:15:50 Document Registration [id number] 11/21/2016 05:18:00 Document Registration [id number] 11/21/2016 05:17:59 Document Registration [id number] 11/20/2016 05:16:18 Document Registration [id number] 11/19/2016 05:17:02 Document Registration [id number] 11/18/2016 09:16:45 Document Registration [id number] 11/17/2016 05:16:36 Document Registration [id number] 11/16/2016 05:17:52 Document Registration [id number] 11/15/2016 05:15:31 Document Registration [id number] 11/14/2016 05:16:05 Document Registration [id number] 11/13/2016 05:17:23 Document Registration [id number] 11/12/2016 05:16:27 Document Registration [id number] 11/11/2016 05:18:33 Document Registration [id number] 03/15/2016 05:16:23 Document Registration [id number] 07/03/2015 14:24:19 Document Registration [id number] 06/25/2015 08:25:00 Document Registration [id number] 10/12/2017 23:30:00 10/13/2017 10:27:00 DIS Inpatient Herbert Abdul DO [facility] W.9TS [id number] 10/11/2017 17:55:00 10/11/2017 19:55:00 DIS Emergency Soila Mckeon MD [facility].EDS [id number] 06/20/2017 21:06:00 06/23/2017 12:55:00 DIS Inpatient Mynor Michel [facility] W.7TS [id number] 06/18/2017 16:19:00 06/18/2017 19:25:00 DIS Emergency Karsten Aponte DO [facility].EDS [id number] 05/09/2016 18:19:00 05/09/2016 18:55:00 DIS Emergency Venkat Chaudhary DO [facility] W.EDW [id number] 04/27/2016 03:02:00 04/27/2016 05:38:00 DIS Emergency Mitch LAST, Debbie Johnson [facility] W.EDW
[2017-11-13 22:39] VITALS: BP 194/100
== END 2017-11-13 23:41 | disposition left against medical advice (07) ==
LOC: EDUNIT# 21:00 → ER 21:01
DX: T85.838A Hemorrhage due to other internal prosthetic devices, implants and grafts, initial encounter (principal)
CPT/HCPCS: 99283